=== PATIENT | male | born 1940 | race Caucasian/White ===

== ENCOUNTER 2022-09-28 10:49 | Inpatient (IN) | payer MEDICARE, SELFPAY ==
[2022-09-28] VITALS (25 sets, daily range): BP systolic 116–161; BP diastolic 57–87; PULSE 67–76; RESP 12–27; TEMP 36.4–36.6; O2SAT 87–98; BMI 27.4; BMI 28.0
--- NOTE | 2022-09-28 11:05 | ECG_ITS ---
The [facility] Test Date: 2022-09-28 Pat Name: ROSANNA SOUSA Department: Room: - Gender: Male [place]: : 1940 Requested By: [id number] Order Number: [id number] Reading MD: NILE AGUILAR Measurements Intervals [place] Rate: 72 P: 51 GA: 172 QRS: -48 QRSD: 148 T: 65 QT: 454 QTc: 479 Interpretive Statements 1100 Sinus rhythm 2450 Right bundle branch block 2630 Left anterior fascicular block 5222 Moderate voltage criteria for LVH, may be normal variant 9150 abnormal ECG Electronically Signed On 09-29-2022 7:15:02 EDT by NILE AGUILAR
--- NOTE | 2022-09-28 11:05 | XR_ITS ---
The [address] [address] Patient Name: ROSANNA SOUSA MRN: [id number] date: 1940 Sex: M Assigned Patient Location: ER Current Patient Location: ER Accession/Order Number: [id number] Exam Date: 09/28/2022 12:22 Report Date: 09/28/2022 12:39 At the request of: SUE NORTON Procedure: XR chest 1V EXAMINATION: XR chest 1V HISTORY: fall , confusion COMPARISON: No relevant comparison available. FINDINGS: LUNGS: No significant pulmonary parenchymal abnormalities. VASCULATURE: No increased pulmonary vasculature. PLEURA: No pneumothorax, effusion, or pleural thickening. CARDIAC: No cardiomegaly or cardiac silhouette abnormality. MEDIASTINUM: No visible mass or adenopathy. BONES: No fracture or visible bone lesion. OTHER: Negative. IMPRESSION: 1. Underexpanded lungs. No acute cardiopulmonary process. 2. No appreciable fracture. Electronically authenticated by: LOUIS BROOKE Date: 09/28/2022 12:39
--- NOTE | 2022-09-28 11:05 | CT_ITS ---
The [address] [address] Patient Name: ROSANNA SOUSA MRN: [id number] date: 1940 Sex: M Assigned Patient Location: ER Current Patient Location: ER Accession/Order Number: [id number] Exam Date: 09/28/2022 12:22 Report Date: 09/28/2022 12:48 At the request of: SUE NORTON Procedure: CT head/brain wo con EXAMINATION: CT head/brain wo con HISTORY: fall , confusion COMPARISON: No relevant comparison available. TECHNIQUE: Axial CT images were obtained without IV contrast. Dose reduction techniques were achieved by using automated exposure control and/or adjustment of mA and/or kV according to patient size and/or use of iterative reconstruction technique. FINDINGS: BRAIN: Old lacunar infarctions within the basal ganglia bilaterally. No edema, hemorrhage, mass, acute infarction, or inappropriate atrophy. CSF SPACES: No hydrocephalus, subarachnoid hemorrhage, or mass. Appropriate for age. SKULL: No fracture, mass, or other significant visible lesion. SINUSES: Moderate mucosal thickening, most notable within right frontal and right maxillary sinuses. Fluid filling majority of right maxillary sinus. ORBITS: No appreciable abnormality on the limited views. OTHER: Negative IMPRESSION: 1. No intracranial hemorrhage or appreciable acute abnormality brain. 2. 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 3. 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 Electronically authenticated by: LOUIS BROOKE Date: 09/28/2022 12:48
--- NOTE | 2022-09-28 11:10 | ED.GENADUL1 ---
HPI - General Adult General Chief complaint: Altered Mental Status Stated complaint: FALL Time Seen by Provider: 09/28/22 11:02 Source: other Source information: EMS Mode of arrival: ambulance Limitations: altered mental status and physical limitation History of Present Illness HPI narrative: patient is a 82-year-old male who is presenting to the Emergency Room after he lowered himself to the ground yesterday and today secondary to weakness. Patient came in by EMS. Patient was found by family in the ground. Patient does not take blood thinners that we're aware of. Patient says that he did not hit his head, but he does have a small abrasion to the back of his head. Patient is confused per family. Patient is an A/O ?3. Patient is able to answer questions appropriately. patient does have some mild bilateral shoulder pain. Patient has bruising to bilateral iliac crests, patient has a 6 x 8 cm stage II ulceration noted above his buttocks. Patient states she has no headache and mild neck pain. patient has no chest pain or shortness of breath. No dull pain, nausea or vomiting. Patient has no other acute complaints. Patient lives at home by himself, family found him today and called EMS. Patient states he been eating and drinking normal, no strokelike signs or symptoms. Related Data Home Medications Medication Instructions Recorded Confirmed erythromycin 5 mg/gram (0.5 %) eye ophthalmic (eye) 09/28/22 ointment Allergies Allergy/AdvReac Type Severity Reaction Status Date / Time No Known Drug Allergies Allergy Verified 09/28/22 11:05 Review of Systems ROS Narrative All systems are negative except as noted/marked. All systems reviewed and otherwise negative. Exam Narrative Exam Narrative: Nurses note and vital signs reviewed and patient is not hypoxic. General: The patient appears well and in no apparent distress. Patient is resting comfortably on cart. Patient is not toxic, lethargic, or listless Skin: Warm, dry, no pallor noted. There is no rash noted. No petechiae, purpura. patient is a 6 x 8cm stage II decubitus ulceration on the top of his buttocks, he has some mild ecchymosis and bruising to bilateral iliac crest area. Patient Head: Normocephalic, atraumatic Eye: Normal conjunctiva, no drainage, EOMI. PERRL Ears, Nose, Mouth, and Throat: oral mucosa is very dry. Nares patent. Mouth without vesicles. no other intraoral pathology. Dry posterior pharynx. Cardiovascular: Regular Rate and Rhythm, no murmur, gallop, rub Respiratory: Patient is in no distress, no accessory muscle use, lungs are clear to auscultation, no wheezing, rales or rhonchi Back: non-tender, no CVA tenderness bilaterally to percussion. No CT LS midline pain GI: soft, no tenderness to palpation, no masses appreciated. No rebound, guarding, or rigidity noted. No flank pain bilateral, No distention. no peritoneal signs. Musculoskeletal: Patient has full range of motion of all of the extremities, no motor, sensory, or focal neurological deficits. Patient states that he has mild tenderness with range of motion to bilateral shoulders, no obvious deformity or signs of fracture. Minimal bruising to bilateral shoulders. : patient is circumcised, 2 descended testicles, no tenderness to palpation of bilateral testicles. Neurological: A&O x3, normal speech, I'm not noticing any confusion during my history and physical. Family is not at bedside yet. Psychiatric: Cooperative Constitutional Vital Signs - 24 hr 09/28/22 10:58 09/28/22 11:03 09/28/22 11:04 Temperature 97.5 F L Pulse Rate 71 73 Pulse Rate [Monitor] 73 Respiratory Rate 16 20 21 Blood Pressure Blood Pressure [Right Arm] 116/57 L Pulse Oximetry 97 97 96 Oxygen Delivery Method Room Air 09/28/22 11:05 09/28/22 11:05 09/28/22 11:05 Temperature Pulse Rate 69 70 73 Pulse Rate [Monitor] Respiratory Rate 22 17 15 Blood Pressure 116/57 L 116/57 L 116/57 L Blood Pressure [Right Arm] Pulse Oximetry 96 93 L 98 Oxygen Delivery Method 09/28/22 12:34 09/28/22 12:34 09/28/22 13:18 Temperature Pulse Rate 74 71 72 Pulse Rate [Monitor] Respiratory Rate 12 27 H 14 Blood Pressure 129/67 H 129/67 H 139/67 H Blood Pressure [Right Arm] Pulse Oximetry 97 96 97 Oxygen Delivery Method 09/28/22 13:18 09/28/22 13:31 09/28/22 14:28 Temperature Pulse Rate 72 74 72 Pulse Rate [Monitor] Respiratory Rate 16 17 Blood Pressure 139/67 H 124/59 H Blood Pressure [Right Arm] Pulse Oximetry 96 Oxygen Delivery Method 09/28/22 15:14 09/28/22 13:31 09/28/22 14:00 Temperature 97.8 F Pulse Rate 72 72 Pulse Rate [Monitor] Respiratory Rate 26 H 23 Blood Pressure 124/59 H 135/62 H Blood Pressure [Right Arm] Pulse Oximetry Oxygen Delivery Method 09/28/22 14:30 09/28/22 15:08 09/28/22 15:09 Temperature Pulse Rate 75 Pulse Rate [Monitor] Respiratory Rate Blood Pressure 121/63 H Blood Pressure [Right Arm] Pulse Oximetry 95 95 Oxygen Delivery Method 09/28/22 15:10 09/28/22 15:10 09/28/22 15:30 Temperature Pulse Rate 75 76 Pulse Rate [Monitor] Respiratory Rate Blood Pressure 157/87 H 157/87 H 148/86 H Blood Pressure [Right Arm] Pulse Oximetry 95 95 94 L Oxygen Delivery Method Course Vital Signs Vital signs: Vital Signs Temperature 97.5 F L 09/28/22 10:58 Pulse Rate 73 09/28/22 10:58 Respiratory Rate 16 09/28/22 10:58 Blood Pressure 116/57 L 09/28/22 10:58 Pulse Oximetry 97 09/28/22 10:58 Oxygen Delivery Method Room Air 09/28/22 10:58 Temperature 97.8 F 09/28/22 15:14 Pulse Rate 76 09/28/22 15:10 Respiratory Rate 23 09/28/22 14:00 Blood Pressure 148/86 H 09/28/22 15:30 Pulse Oximetry 94 L 09/28/22 15:30 Oxygen Delivery Method Room Air 09/28/22 10:58 Medical Decision Making Lab Data Lab results reviewed: Yes I reviewed the patient's lab results Lab results narrative: patient has a CK of 470. Patient's CT of the head, cervical spine, chest x-ray show no acute abnormality. Patient's lab testing otherwise show no acute abnormality. Patient was given 1 L of IV fluid, patient had a red popsicle as well. Patient was given a 2nd liter of IV fluids, and then patient was attempted to be evaluated. Patient cannot support his weight, and wasn't able to take one or 2 steps. patient was sat back down. Patient will continue gentle IV fluid hydration, patient be reevaluated later this evening and tomorrow morning to see be safely discharged or not. Patient was admitted to Dr. Pichardo to [facility] telemetry observation. patient's bilirubin is 2.8, he has no abdominal pain, nausea, vomiting, No right upper quadrant pain. Labs: Lab Results 09/28/22 09/28/22 Range/Units 11:23 12:00 WBC 10.3 (4.0-11.0) 10^3/uL RBC 4.53 L (4.70-6.10) 10^6/uL Hgb 13.9 L (14.0-18.0) g/dL Hct 41.1 L (42.0-54.0) % MCV 90.7 (80.0-94.0) fL MCH 30.7 (25.9-34.0) pg MCHC 33.8 (29.9-35.2) g/dL RDW 14.8 (11.0-15.0) % Plt Count 205 (150-450) 10^3/uL MPV 10.0 (9.5-13.5) fL Neut % (Auto) 85.2 H (43.0-75.0) % Lymph % (Auto) 7.2 L (20.5-60.0) % [place] % (Auto) 6.7 (1.7-12.0) % Eos % (Auto) 0.2 L (0.9-7.0) % Baso % (Auto) 0.2 (0.2-2.0) % Neut # (Auto) 8.7 H (1.4-6.5) 10^3/uL Lymph # (Auto) 0.7 L (1.2-3.8) 10^3/uL [place] # (Auto) 0.7 (0.3-0.8) 10^3/uL Eos # (Auto) 0.0 (0.0-0.7) 10^3/uL Baso # (Auto) 0.0 (0.0-0.1) 10^3/uL Abs Immat Gran (auto) 0.05 H (0.00-0.03) 10^3/uL Imm/Tot Granulo (auto) 0.5 (0.0-0.5) % PT 10.4 (9.0-11.6) sec INR 0.98 Sodium 140 (136-145) mmol/L Potassium 4.3 (3.5-5.1) mmol/L Chloride 104 (98-107) mmol/L Carbon Dioxide 25.8 (21.0-32.0) mmol/L Anion Gap 14.5 BUN 54.0 H (7.0-18.0) mg/dL Creatinine 0.85 (0.70-1.30) mg/dL Est GFR ( Amer) >60 (>=60) Est GFR (Non-Af Amer) >60 (>=60) BUN/Creatinine Ratio 63.5 Glucose 105 (74-106) mg/dL Lactate 2.0 (0.4-2.0) mmol/L Calcium 9.1 (8.5-10.1) mg/dL Total Bilirubin 2.8 H (0.2-1.0) mg/dL AST 82 H (15-37) U/L ALT 60 (16-63) U/L Alkaline Phosphatase 78 (46-116) U/L Total Creatine Kinase 476 H* (39-308) U/L Troponin I High Sens 16.6 (4.0-76.1) pg/mL Total Protein 7.1 (6.4-8.2) g/dL Albumin 3.0 L (3.4-5.0) g/dL Globulin 4.1 g/dL Albumin/Globulin Ratio 0.7 Urine Color Yellow (YELLOW) Urine Clarity Clear (CLEAR) Urine pH 5.5 (5.0-9.0) Ur Specific [place] >=1.030 A (1.005-1.025) Urine Protein Negative (NEG/TRACE) mg/dL Urine Glucose (UA) Negative (NEGATIVE) mg/dL Urine Ketones 15 A (NEGATIVE) mg/dL Urine Occult Blood Negative (NEGATIVE) Urine Nitrite Negative (NEGATIVE) Urine Bilirubin Negative (NEGATIVE) Urine Urobilinogen 1.0 (0.2-1.0) EU/dL Ur Leukocyte Esterase Negative (NEGATIVE) ECG Data Attestation: I personally reviewed and interpreted this ECG as follows: Interpretation: patient appears to have a normal sinus rhythm at 72 beats a minute. Left axis deviation. EKG reading right bundle-branch block, QTC of 479. No obvious signs of ST elevation.nonspecific ST changes. Discharge Plan Discharge Chief Complaint: Altered Mental Status Clinical Impression: Abrasion of scalp, Decubitus ulcer of ankle, stage 2, Rhabdomyolysis, Elevated bilirubin, Head injury, Fall, Dehydration Patient Disposition: Admitted as Observation
--- NOTE | 2022-09-28 11:16 | CT_ITS ---
[address] [address] Patient Name: ROSANNA SOUSA MRN: [id number] date: 1940 Sex: M Assigned Patient Location: ER Current Patient Location: ER Accession/Order Number: [id number] Exam Date: 09/28/2022 12:22 Report Date: 09/28/2022 12:55 At the request of: SUE NORTON Procedure: CT cervical spine wo con EXAMINATION: CT cervical spine wo con HISTORY: pain , confusion COMPARISON: No relevant comparison available. TECHNIQUE: Axial, Coronal, and Sagittal images were created without IV contrast. Dose reduction techniques were achieved by using automated exposure control and/or adjustment of mA and/or kV according to patient size and/or use of iterative reconstruction technique. FINDINGS: VERTEBRAL BODIES: No fracture or spondylolisthesis. FACET JOINTS: Multilevel mild-moderate degenerative changes. No disruption or abnormal widening. DISCS: Moderate narrowing at all levels with posterior disc-osteophyte complexes causing moderate or greater central canal and foramen narrowing at C3-4 through C6-7. CENTRAL CANAL: No evidence of hemorrhage. PARASPINAL AREA: No visible mass. IMPRESSION: 1. No appreciable acute abnormality. 2. Moderate-marked degenerative changes of cervical spine. Electronically authenticated by: LOUIS BROOKE Date: 09/28/2022 12:55
[2022-09-28] MEDS: 0.9 % SODIUM CHLORIDE 1,000 ML 1000 ML IV ×2 (11:57→13:52)
[2022-09-28] MEDS: ONDANSETRON PF 4 MG/2 ML VIAL IV (11:57)
[2022-09-28 12:05] LABS: Bilirubin Urine NEGATIVE (NEGATIVE); Blood Urine NEGATIVE (NEGATIVE); Clarity Urine CLEAR (CLEAR); Color Urine YELLOW (YELLOW); Glucose Urine UA NEGATIVE (NEGATIVE); Ketones Urine 15 mg/dL (NEGATIVE); Leukocyte Esterase Urine NEGATIVE (NEGATIVE); Nitrite Urine NEGATIVE (NEGATIVE); Protein Urine NEGATIVE (NEG/TRACE); Specific Gravity Urine >=1.030 (1.005-1.025); pH Urine 5.5 (5.0-9.0)
[2022-09-28 12:30] LABS: Basophils Percent Auto 0.2 % (0.2-2.0); Eosinophils Percent Auto 0.2 % (0.9-7.0); Hematocrit 41.1 % (42.0-54.0); Hemoglobin 13.9 g/dL (14.0-18.0); Immature Granulocytes Abs Auto 0.05 10^3/uL (0.00-0.03); Immature Granulocytes Pct Auto 0.5 % (0.0-0.5); Lymphocytes Absolute Auto 0.7 10^3/uL (1.2-3.8); Lymphocytes Percent Auto 7.2 % (20.5-60.0); Mean Corpuscular HGB Conc 33.8 g/dL (29.9-35.2); Mean Corpuscular Hemoglobin 30.7 pg (25.9-34.0); Mean Corpuscular Volume 90.7 fL (80.0-94.0); Monocytes Absolute Auto 0.7 10^3/uL (0.3-0.8); Monocytes Percent Auto 6.7 % (1.7-12.0); Neutrophils Absolute Auto 8.7 10^3/uL (1.4-6.5); Neutrophils Percent Auto 85.2 % (43.0-75.0); Platelet Count 205 10^3/uL (150-450); Red Blood Count 4.53 10^6/uL (4.70-6.10); Red Cell Distribution Width 14.8 % (11.0-15.0); White Blood Count 10.3 10^3/uL (4.0-11.0)
[2022-09-28 12:44] LABS: Anion Gap 14.5
[2022-09-28 12:46] LABS: INR 0.98; Prothrombin Time 10.4 sec (9.0-11.6)
[2022-09-28 12:47] LABS: Alanine Aminotransferase 60 U/L (16-63); Albumin Globulin Ratio 0.7; Alkaline Phosphatase 78 U/L (46-116); Aspartate Amino Transferase 82 U/L (15-37); BUN Creatinine Ratio 63.5; Bilirubin Total 2.8 mg/dL (0.2-1.0); Calcium 9.1 mg/dL (8.5-10.1); Carbon Dioxide 25.8 mmol/L (21.0-32.0); Chloride 104 mmol/L (98-107); Estimated GFR (African America >60 (>=60); Estimated GFR (Non-African Ame >60 (>=60); Globulin 4.1 g/dL; Glucose 105 mg/dL (74-106); Potassium 4.3 mmol/L (3.5-5.1); Sodium 140 mmol/L (136-145); Total Protein 7.1 g/dL (6.4-8.2); Troponin I High Sensitivity 16.6 pg/mL (4.0-76.1)
[2022-09-28 12:50] LABS: Creatine Kinase 476 U/L (39-308)
[2022-09-28 16:29] LABS: Bacteria Urine NONE SEEN #/HPF (NONE SEEN); Cast Seen? NONE SEEN #/LPF (NONE SEEN); Crystals Seen? None Seen #/HPF (None Seen); Mucus Urine NONE SEEN (NONE SEEN); RBC Urine NONE SEEN #/HPF (0-2); Squamous Epithelial Cell Urine NONE SEEN #/LPF (NONE/RARE); WBC Urine NONE SEEN #/HPF (NONE SEEN)
[2022-09-28 16:30] LABS: Urine Culture Indicated NO
[2022-09-28 16:52] LABS: Ammonia <10 umol/L (11-32)
[2022-09-28 17:08] LABS: Free T3 1.34 pg/mL (2.18-3.98); Thyroid Stimulating Hormone 1.597 uIU/mL (0.358-3.740)
[2022-09-28] MEDS: 0.9 % SODIUM CHLORIDE 1,000 ML 100 ML IV (17:33)
[2022-09-29] VITALS (15 sets, daily range): BP systolic 126–146; BP diastolic 66–71; PULSE 60–73; RESP 18; TEMP 36.3–36.6; O2SAT 90–94
[2022-09-29] MEDS: 0.9 % SODIUM CHLORIDE 1,000 ML 100 ML IV ×2 (05:19→13:31)
[2022-09-29 06:23] LABS: Basophils Percent Auto 0.2 % (0.2-2.0); Eosinophils Absolute Auto 0.1 10^3/uL (0.0-0.7); Eosinophils Percent Auto 0.8 % (0.9-7.0); Hematocrit 37.7 % (42.0-54.0); Hemoglobin 12.3 g/dL (14.0-18.0); Immature Granulocytes Abs Auto 0.03 10^3/uL (0.00-0.03); Immature Granulocytes Pct Auto 0.3 % (0.0-0.5); Lymphocytes Absolute Auto 1.2 10^3/uL (1.2-3.8); Lymphocytes Percent Auto 13.7 % (20.5-60.0); Mean Corpuscular HGB Conc 32.6 g/dL (29.9-35.2); Mean Corpuscular Hemoglobin 30.9 pg (25.9-34.0); Mean Corpuscular Volume 94.7 fL (80.0-94.0); Mean Platelet Volume 10.5 fL (9.5-13.5); Monocytes Absolute Auto 0.6 10^3/uL (0.3-0.8); Monocytes Percent Auto 6.3 % (1.7-12.0); Neutrophils Absolute Auto 7.1 10^3/uL (1.4-6.5); Neutrophils Percent Auto 78.7 % (43.0-75.0); Platelet Count 197 10^3/uL (150-450); Red Blood Count 3.98 10^6/uL (4.70-6.10); Red Cell Distribution Width 15.5 % (11.0-15.0)
[2022-09-29 07:00] LABS: Alanine Aminotransferase 47 U/L (16-63); Albumin Globulin Ratio 0.7; Albumin Level 2.5 g/dL (3.4-5.0); Alkaline Phosphatase 64 U/L (46-116); Anion Gap 1.4; Aspartate Amino Transferase 56 U/L (15-37); BUN Creatinine Ratio 54.5; Bilirubin Total 2.4 mg/dL (0.2-1.0); Calcium 8.3 mg/dL (8.5-10.1); Carbon Dioxide 24.4 mmol/L (21.0-32.0); Creatine Kinase 176 U/L (39-308); Estimated GFR (African America >60 (>=60); Estimated GFR (Non-African Ame >60 (>=60); Globulin 3.4 g/dL; Glucose 95 mg/dL (74-106); Potassium 3.8 mmol/L (3.5-5.1); Sodium 145 mmol/L (136-145); Total Protein 5.9 g/dL (6.4-8.2); Troponin I High Sensitivity 17.2 pg/mL (4.0-76.1)
[2022-09-29 07:28] LABS: Chloride 123 mmol/L (98-107); Creatine Kinase MB 3.98 ng/mL (<=3.60)
[2022-09-29 07:29] LABS: Myoglobin 269 ng/mL (16-96)
--- NOTE | 2022-09-29 13:54 | PM.HP ---
H&P: HPI History of Present Illness Chief complaint: FALL Narrative: 82 y o male, who lives alone, independently at home was in his usual state of health when he fell from his recliner and was unable to get up. He denies LOC or head trauma and it is unclear how long he was on the floor for but from what the patient described and report from family members, it was probably atleast for a day. He was found on the floor by the family member and brought in for evaluation. He was sitting on a recliner today. Denies any active complaints except for low back pain from recent fall. Answering questions appropriately and feels better compared to when he arrived last evening. Review of Systems ROS Narrative negative except as mentioned in HPI PFSH PFSH Medical History (Updated 09/29/22 @ 14:13 by Shaikh Lenore MD) Surgical History (Updated 09/29/22 @ 14:06 by Shaikh Lenore MD) Social History (Updated 09/29/22 @ 14:07 by Shaikh Lenore MD) Within the past year, how often did you have a drink containing alcohol: monthly or less Smoking status: Never smoker Medical History (Updated 09/29/22 @ 14:13 by Shaikh Lenore MD) Surgical History (Updated 09/29/22 @ 14:06 by Shaikh Lenore MD) Social History (Updated 09/29/22 @ 14:07 by Shaikh Lenore MD) Within the past year, how often did you have a drink containing alcohol: monthly or less Smoking status: Never smoker Meds Home Medications and Allergies Home Medications Medication Instructions Recorded Confirmed Type erythromycin 5 mg/gram (0.5 %) eye ophthalmic (eye) 09/28/22 History ointment Allergies Allergy/AdvReac Type Severity Reaction Status Date / Time No Known Drug Allergies Allergy Verified 09/28/22 11:05 Exam Constitutional Vital Signs - 24 hr 09/28/22 14:28 09/28/22 15:14 09/28/22 14:00 Temperature 97.8 F Pulse Rate 72 72 Pulse Rate [Monitor] Respiratory Rate 23 Blood Pressure 135/62 H Blood Pressure [Right Arm] Pulse Oximetry Oxygen Delivery Method Oxygen Delivery Flow Rate 09/28/22 14:30 09/28/22 15:08 09/28/22 15:09 Temperature Pulse Rate 75 Pulse Rate [Monitor] Respiratory Rate Blood Pressure 121/63 H Blood Pressure [Right Arm] Pulse Oximetry 95 95 Oxygen Delivery Method Oxygen Delivery Flow Rate 09/28/22 15:10 09/28/22 15:10 09/28/22 15:30 Temperature Pulse Rate 75 76 Pulse Rate [Monitor] Respiratory Rate Blood Pressure 157/87 H 157/87 H 148/86 H Blood Pressure [Right Arm] Pulse Oximetry 95 95 94 L Oxygen Delivery Method Oxygen Delivery Flow Rate 09/28/22 15:56 09/28/22 15:56 09/28/22 16:06 Temperature 97.6 F Pulse Rate 74 73 Pulse Rate [Monitor] 73 Respiratory Rate 16 Blood Pressure Blood Pressure [Right Arm] 161/75 H Pulse Oximetry 87 L Oxygen Delivery Method Room Air Nasal Cannula Oxygen Delivery Flow Rate 2 09/28/22 18:45 09/28/22 19:45 09/28/22 19:49 Temperature Pulse Rate 73 70 Pulse Rate [Monitor] Respiratory Rate Blood Pressure Blood Pressure [Right Arm] Pulse Oximetry 93 L Oxygen Delivery Method Nasal Cannula Oxygen Delivery Flow Rate 2 09/28/22 21:52 09/28/22 22:29 09/28/22 23:54 Temperature 97.6 F Pulse Rate 67 67 67 Pulse Rate [Monitor] Respiratory Rate 18 Blood Pressure Blood Pressure [Right Arm] 130/66 H Pulse Oximetry 90 L Oxygen Delivery Method Nasal Cannula Oxygen Delivery Flow Rate 2 09/29/22 01:55 09/29/22 04:00 09/29/22 06:00 Temperature Pulse Rate 62 61 60 Pulse Rate [Monitor] Respiratory Rate Blood Pressure Blood Pressure [Right Arm] Pulse Oximetry Oxygen Delivery Method Oxygen Delivery Flow Rate 09/29/22 06:00 09/29/22 08:07 09/29/22 10:03 Temperature 97.3 F L Pulse Rate 65 62 61 Pulse Rate [Monitor] Respiratory Rate 18 Blood Pressure Blood Pressure [Right Arm] 131/71 H Pulse Oximetry 90 L Oxygen Delivery Method Nasal Cannula Oxygen Delivery Flow Rate 2 09/29/22 11:51 09/29/22 13:14 Temperature 97.7 F Pulse Rate 65 67 Pulse Rate [Monitor] Respiratory Rate 18 Blood Pressure Blood Pressure [Right Arm] 146/70 H Pulse Oximetry 92 L Oxygen Delivery Method Room Air Oxygen Delivery Flow Rate Documenting provider has reviewed patient's vital signs: yes Common normals: no apparent distress, average body habitus and oriented x3 General appearance: cooperative, comfortable, well kempt and well developed HENMT Common normals: normocephalic and head/scalp atraumatic Eye Common normals: conjunctivae normal and no scleral icterus Neck & C-Spine Common normals: full ROM Respiratory Common normals: normal respiratory effort and clear to auscultation bilaterally GI Common normals: Normal to inspection, nondistended, normoactive bowel sounds present Back & Pelvis Common normals: no CVA tenderness Lumbar spine/lower back: other soft tissue findings (Stage 2 pressure ulcer with overlying erythema/bruising from recent fall) Extremity Common normals: normal to inspection Neuro Common normals: oriented x3, moves all extremities, no focal motor deficits and no sensory deficits noted Psych Common normals: mental status grossly normal, thought process normal, cooperative, denies homicidal ideation and denies suicidal ideation Results Labs Labs: Short CBC 09/29/22 Range/Units 04:45 WBC 9.0 (4.0-11.0) 10^3/uL Hgb 12.3 L (14.0-18.0) g/dL Hct 37.7 L (42.0-54.0) % Plt Count 197 (150-450) 10^3/uL BMP 09/29/22 04:45 Sodium 145 Potassium 3.8 Chloride 123 H* Carbon Dioxide 24.4 BUN 42.0 H Creatinine 0.77 Glucose 95 Calcium 8.3 L Cardiac Enzymes 09/29/22 Range/Units 04:45 Total Creatine Kinase 176 (39-308) U/L CK-MB (CK-2) 3.98 H* (<=3.60) ng/mL Liver Function 09/29/22 Range/Units 04:45 Total Bilirubin 2.4 H (0.2-1.0) mg/dL AST 56 H (15-37) U/L ALT 47 (16-63) U/L Alkaline Phosphatase 64 (46-116) U/L Albumin 2.5 L (3.4-5.0) g/dL Assessment and Plan Assessment and Plan (1) Rhabdomyolysis: Assessment and Plan: Likely from fall and being on floor for extended period of time. On IV fluids. C/w IVF. Monitor UO and renal function closely. Qualifiers: Rhabdomyolysis type: non-traumatic Qualified Code(s): M62.82 - Rhabdomyolysis (2) Fall: Assessment and Plan: Fall at home and inability to get up and was on floor for unspecified period of time. PT/OT eval. No acute finding on CT head/spine Qualifiers: Encounter type: subsequent encounter Qualified Code(s): W19.XXXD - Unspecified fall, subsequent encounter (3) Dehydration: Assessment and Plan: Clinically dry on exam. On IVF. c.w same (4) Stage II pressure ulcer: Assessment and Plan: Likely from fall and being on floor for extended period of time. Wound care. Qualifiers: Pressure injury location: back, unspecified location Qualified Code(s): L89.102 - Pressure ulcer of unspecified part of back, stage 2 (5) Ambulatory dysfunction: Assessment and Plan: Lives alone at home. Was on floor for an extended period of time. Needs two person assist to get up, unsteady on his feet. PT/OT eval and rx. Discussed with family and patient. Suspect he might need short term rehab (6) Low back pain: Assessment and Plan: From fall . XR ordered to make sure no rx. (7) Old lacunar stroke without late effect: Assessment and Plan: Incidental finding on CT. no residual deficit on exam Plan On IVF. C/w pain control, wound care for pressure ulcer. PT/OT eval and rx Anticipate him to stay over 2 midnights for IV hydration, pain control, wound care and PT/OT eval and rx Disposition : likely short term rehab
[2022-09-29] MEDS: LACTATED RINGER'S SOLUTION 1,000 ML 125 ML IV ×2 (14:09→22:28)
[2022-09-29] MEDS: ACETAMINOPHEN 325 MG TABLET 650 MG PO (14:15)
--- NOTE | 2022-09-29 14:15 | XR_ITS ---
[place] [id number] Patient Name: ROSANNA SOUSA MRN: [id number] date: 1940 Sex: M Assigned Patient Location: MS Current Patient Location: [place] Accession/Order Number: [id number] Exam Date: 09/29/2022 14:35 Report Date: 09/30/2022 00:22 At the request of: SHAIKH KIRK Procedure: XR lumbar spine 2-3V EXAM: XR lumbar spine 2-3V HISTORY: low back pain COMPARISON: None. TECHNIQUE: AP and lateral views FINDINGS: Vertebral bodies are normal in height. There is widespread disc space narrowing. Vacuum disc phenomenon at L2-L3, L3-L4, and L4-L5. Anterior osteophytosis at each lumbar level. Facet arthropathy is noted at L5-S1. Early aortoiliac calcification is noted. IMPRESSION: Multilevel lumbar spondylosis. Electronically authenticated by: Dennis ALBERTS Date: 09/30/2022 00:22
[2022-09-29 14:34] LABS: Creatine Kinase 186 U/L (39-308)
[2022-09-30] VITALS (16 sets, daily range): BP systolic 126–146; BP diastolic 66; PULSE 56–70; RESP 16–18; TEMP 36.6–37.1; O2SAT 90–94
[2022-09-30 04:49] LABS: Basophils Percent Auto 0.3 % (0.2-2.0); Eosinophils Absolute Auto 0.2 10^3/uL (0.0-0.7); Eosinophils Percent Auto 2.7 % (0.9-7.0); Hematocrit 32.6 % (42.0-54.0); Hemoglobin 10.8 g/dL (14.0-18.0); Immature Granulocytes Abs Auto 0.02 10^3/uL (0.00-0.03); Immature Granulocytes Pct Auto 0.3 % (0.0-0.5); Lymphocytes Absolute Auto 1.2 10^3/uL (1.2-3.8); Mean Corpuscular HGB Conc 33.1 g/dL (29.9-35.2); Mean Corpuscular Hemoglobin 31.3 pg (25.9-34.0); Mean Corpuscular Volume 94.5 fL (80.0-94.0); Mean Platelet Volume 10.2 fL (9.5-13.5); Monocytes Absolute Auto 0.4 10^3/uL (0.3-0.8); Monocytes Percent Auto 7.1 % (1.7-12.0); Neutrophils Percent Auto 68.6 % (43.0-75.0); Platelet Count 156 10^3/uL (150-450); Red Blood Count 3.45 10^6/uL (4.70-6.10); White Blood Count 5.9 10^3/uL (4.0-11.0)
[2022-09-30 04:56] LABS: Alanine Aminotransferase 41 U/L (16-63); Albumin Globulin Ratio 0.7; Albumin Level 2.2 g/dL (3.4-5.0); Alkaline Phosphatase 64 U/L (46-116); Anion Gap 7.9; Aspartate Amino Transferase 46 U/L (15-37); BUN Creatinine Ratio 42.6; Bilirubin Total 1.7 mg/dL (0.2-1.0); Calcium 8.1 mg/dL (8.5-10.1); Carbon Dioxide 27.6 mmol/L (21.0-32.0); Chloride 108 mmol/L (98-107); Estimated GFR (African America >60 (>=60); Estimated GFR (Non-African Ame >60 (>=60); Globulin 3.1 g/dL; Glucose 98 mg/dL (74-106); Potassium 3.5 mmol/L (3.5-5.1); Sodium 140 mmol/L (136-145); Total Protein 5.3 g/dL (6.4-8.2)
[2022-09-30] MEDS: LACTATED RINGER'S SOLUTION 1,000 ML 125 ML IV (06:27)
--- NOTE | 2022-09-30 10:23 | PT.DAILY ---
Physical Therapy Daily Note PT Daily Note/Assess Start: 09/30/22 10:18 Freq: Status: Active Protocol: Document 09/30/22 09:50 [email or web address] (Rec: 09/30/22 10:23 [email or web address] [id number]) Physical Therapy Daily Note/Assessment Time In/Time Out Time In 09:50 Time Out 10:10 Pain In Pain N/A Pain Out Pain N/A Subjective Subjective Reports sore in tailbone but does not give pain number. Agrees to PT RX. Reports feeling better, but may need rehab to get stronger as lives alone. Therapeutic Exercise Time Therapeutic Exercise Minutes (minutes) 5 Therapeutic Exercise Units 0 Therapeutic Exercise Treatment Therapeutic Exercise Treatment Seated exercises B LE all planes 10 reps; verbal cues for full ROM jaylen. with marches and LAQ. Therapeutic Activity Time Therapeutic Activity Minutes (minutes) 15 Therapeutic Activity Units 1 Therapeutic Activity Treatment Chair Transfer Ability Minimum Assist Therapeutic Activity Comments Min assist from various surfaces, more assistance with lower surfaces required. Gait with RW 60 ft. x1 and 25 ft. x1 with RW CGA. Mild LOB x 1 when turning that required min assist from therapist to correct. Required B UE support for static standing. Total Physical Therapy Time Total Therapy Minutes 20 Total Physical Therapy Units 1 Summary Daily Note Summary Patient does show improvement with ability to ambulate, still requires AD, and assistance due to weakness. Overall patient works hard and is motivated to get stronger. PT would recommend SNF at [place] to improve functional strength and decreased fall risk, patient agrees with this.
--- NOTE | 2022-09-30 13:03 | PM.IMPN1 ---
Progress Note: A&P Assessment and Plan (1) Rhabdomyolysis: Assessment and Plan: resolved. Good UO, PO intake. Stop IVF. Qualifiers: Rhabdomyolysis type: non-traumatic Qualified Code(s): M62.82 - Rhabdomyolysis (2) Fall: Assessment and Plan: PT/OT evaluation. Possible rehab placement Qualifiers: Encounter type: subsequent encounter Qualified Code(s): W19.XXXD - Unspecified fall, subsequent encounter (3) Dehydration: Assessment and Plan: resolved. Now with good PO intake. Stop IVF (4) Stage II pressure ulcer: Assessment and Plan: Wound care consult Qualifiers: Pressure injury location: back, unspecified location Qualified Code(s): L89.102 - Pressure ulcer of unspecified part of back, stage 2 (5) Ambulatory dysfunction: Assessment and Plan: PT/OT eval. (6) Low back pain: Assessment and Plan: XR shows multi level DJD changes. No fx. (7) Old lacunar stroke without late effect: Assessment and Plan: No residual deficit. Internal Medicine - PN: Subj Subjective Interval history: Seen and examined. Reports poor sleep last night. Also complaining of b/l feet pain. No acute events overnight Exam Constitutional Vital Signs - 24 hr 09/29/22 13:14 09/29/22 13:55 09/29/22 16:05 Temperature 97.7 F Pulse Rate 67 67 62 Respiratory Rate 18 Blood Pressure [Right Arm] 146/70 H Pulse Oximetry 92 L Oxygen Delivery Method Room Air 09/29/22 18:09 09/29/22 19:49 09/29/22 20:00 Temperature Pulse Rate 71 65 Respiratory Rate Blood Pressure [Right Arm] Pulse Oximetry 92 L Oxygen Delivery Method Room Air 09/29/22 21:14 09/29/22 22:00 09/30/22 00:00 Temperature 97.8 F Pulse Rate 73 66 60 Respiratory Rate 18 Blood Pressure [Right Arm] 126/66 H Pulse Oximetry 91 L Oxygen Delivery Method 09/30/22 02:00 09/30/22 04:00 09/30/22 06:00 Temperature Pulse Rate 66 59 L 60 Respiratory Rate Blood Pressure [Right Arm] Pulse Oximetry Oxygen Delivery Method 09/30/22 07:52 09/30/22 10:10 09/30/22 11:41 Temperature Pulse Rate 56 L 64 Respiratory Rate Blood Pressure [Right Arm] Pulse Oximetry 94 L Oxygen Delivery Method Room Air 09/30/22 11:50 Temperature Pulse Rate 60 Respiratory Rate Blood Pressure [Right Arm] Pulse Oximetry Oxygen Delivery Method Documenting provider has reviewed patient's vital signs: yes Common normals: no apparent distress and well nourished General appearance: cooperative and comfortable HENME Common normals: normocephalic and head/scalp atraumatic Eye Common normals: conjunctivae normal and no scleral icterus Respiratory Common normals: normal respiratory effort, no use of accessory muscles and clear to auscultation bilaterally Cardio Common normals: regular rate, regular rhythm and S1 normal heart sound Back & Pelvis General back: other (Stage 2 pressure ulcer low back region ) Neuro Common normals: oriented x3, moves all extremities and no focal motor deficits Psych Common normals: mental status grossly normal, denies homicidal ideation and denies suicidal ideation Internal Medicine - PN: Obj Da Labs Labs: Laboratory Results - last 24 hr 09/29/22 09/30/22 14:09 04:13 WBC 5.9 RBC 3.45 L Hgb 10.8 L Hct 32.6 L MCV 94.5 H MCH 31.3 MCHC 33.1 RDW 15.0 Plt Count 156 MPV 10.2 Neut % (Auto) 68.6 Lymph % (Auto) 21.0 Hitchcock % (Auto) 7.1 Eos % (Auto) 2.7 Baso % (Auto) 0.3 Neut # (Auto) 4.0 Lymph # (Auto) 1.2 Hitchcock # (Auto) 0.4 Eos # (Auto) 0.2 Baso # (Auto) 0.0 Abs Immat Gran (auto) 0.02 Imm/Tot Granulo (auto) 0.3 Sodium 140 Potassium 3.5 Chloride 108 H Carbon Dioxide 27.6 Anion Gap 7.9 BUN 29.0 H Creatinine 0.68 L Est GFR ( Amer) >60 Est GFR (Non-Af Amer) >60 BUN/Creatinine Ratio 42.6 Glucose 98 Calcium 8.1 L Total Bilirubin 1.7 H AST 46 H ALT 41 Alkaline Phosphatase 64 Total Creatine Kinase 186 Total Protein 5.3 L Albumin 2.2 L Globulin 3.1 Albumin/Globulin Ratio 0.7
[2022-10-01] VITALS (18 sets, daily range): BP systolic 133–143; BP diastolic 76–84; PULSE 58–73; RESP 16–18; TEMP 36.5–36.7; O2SAT 90–95; BMI 27.9
--- NOTE | 2022-10-01 10:46 | REH.PTDLY ---
Physical Therapy Daily Note PT Daily Note/Assess Start: 09/30/22 10:18 Freq: Status: Active Protocol: Document 10/01/22 10:30 ROGER (Rec: 10/01/22 10:46 ROGER [id number]) Physical Therapy Daily Note/Assessment Time In 10:25 Time Out 10:05 Pain Level 0 Pain Level 0 Subjective Pt up in chair just finished breakfast. Agreeable to therapy. Therapeutic Exercise Minutes (minutes) 6 Therapeutic Exercise Units 1 Therapeutic Exercise Treatment Instructed in B LE seated exs 10-15x ea with AP, marching, LAQ, hip abd, and hip add squeezes for improved strength . Therapeutic Activity Minutes (minutes) 10 Therapeutic Activity Units 1 Chair Transfer Ability Contact Guard Assist Therapeutic Activity Comments Sit to stand transfers CGA with cues for pt to push off from arms of chair for safety and not to grab RW. Gait training with RW 72 feet CGA with cues for pt to stay inside of RW. Consecutive sit to stand transfers 3x in a row with cues for hand placement and fatigue in legs noted. Total Therapy Minutes 16 Total Physical Therapy Units 2 Daily Note Summary Progressed gait distance today with pt to improve strength and stamina. Worked on transfers today as well for safety and strength. Pt will benefit from rehab stay to become stronger following fall at home.
--- NOTE | 2022-10-01 11:26 | PM.IMPN1 ---
Progress Note: A&P Assessment and Plan (1) Rhabdomyolysis: Assessment and Plan: resolved. Good UO, PO intake. Qualifiers: Rhabdomyolysis type: non-traumatic Qualified Code(s): M62.82 - Rhabdomyolysis (2) Fall: Assessment and Plan: PT/OT eval. Needing walker to ambulate. Will need short term rehab Qualifiers: Encounter type: subsequent encounter Qualified Code(s): W19.XXXD - Unspecified fall, subsequent encounter (3) Dehydration: Assessment and Plan: resolved. Now with good PO intake. (4) Stage II pressure ulcer: Assessment and Plan: Wound care consult Qualifiers: Pressure injury location: back, unspecified location Qualified Code(s): L89.102 - Pressure ulcer of unspecified part of back, stage 2 (5) Ambulatory dysfunction: Assessment and Plan: PT/OT eval. WIll need rehab placement At baseline patient was ambulating w/o needing any help (6) Low back pain: Assessment and Plan: XR shows multi level DJD changes. No fx. (7) Old lacunar stroke without late effect: Assessment and Plan: No residual deficit. Internal Medicine - PN: Subj Subjective Interval history: Seen and examined. No acute events overnight Exam Constitutional Vital Signs - 24 hr 09/30/22 11:41 09/30/22 11:50 09/30/22 13:47 Temperature Pulse Rate 60 63 Pulse Rate [Monitor] Respiratory Rate Blood Pressure [Right Arm] Pulse Oximetry 94 L Oxygen Delivery Method Room Air 09/30/22 14:15 09/30/22 15:53 09/30/22 17:43 Temperature 98.7 F Pulse Rate 64 63 62 Pulse Rate [Monitor] Respiratory Rate 18 Blood Pressure [Right Arm] 126/66 H Pulse Oximetry 90 L Oxygen Delivery Method Room Air 09/30/22 19:40 09/30/22 20:00 09/30/22 20:00 Temperature Pulse Rate 70 Pulse Rate [Monitor] Respiratory Rate 16 Blood Pressure [Right Arm] Pulse Oximetry 93 L Oxygen Delivery Method Room Air 09/30/22 20:44 09/30/22 22:00 10/01/22 00:00 Temperature 97.9 F Pulse Rate 60 66 Pulse Rate [Monitor] Respiratory Rate 18 Blood Pressure [Right Arm] 146/66 H Pulse Oximetry 90 L Oxygen Delivery Method Room Air 10/01/22 02:00 10/01/22 03:45 10/01/22 04:32 Temperature 98.1 F Pulse Rate 60 59 L 59 L Pulse Rate [Monitor] Respiratory Rate 18 Blood Pressure [Right Arm] 133/80 H Pulse Oximetry 90 L Oxygen Delivery Method Room Air 10/01/22 05:50 10/01/22 07:37 10/01/22 07:50 Temperature Pulse Rate 58 L 64 Pulse Rate [Monitor] 60 Respiratory Rate 16 Blood Pressure [Right Arm] Pulse Oximetry Oxygen Delivery Method 10/01/22 09:58 10/01/22 10:42 Temperature Pulse Rate 68 Pulse Rate [Monitor] Respiratory Rate Blood Pressure [Right Arm] Pulse Oximetry 92 L Oxygen Delivery Method Room Air Documenting provider has reviewed patient's vital signs: yes Common normals: no apparent distress and well nourished General appearance: cooperative and comfortable HENMT Common normals: normocephalic and head/scalp atraumatic Eye Common normals: conjunctivae normal and no scleral icterus Respiratory Common normals: normal respiratory effort, no use of accessory muscles and clear to auscultation bilaterally Cardio Common normals: regular rate, regular rhythm and S1 normal heart sound Back & Pelvis General back: other (Stage 2 pressure ulcer low back region ) Neuro Common normals: oriented x3, moves all extremities and no focal motor deficits Psych Common normals: mental status grossly normal, denies homicidal ideation and denies suicidal ideation Urinary Catheter Management Urinary Catheter Management 2-way Urethral: Cath placed during this visit: yes Urethral indwelling: No Reason for continuing: acute urinary retention Insertion date: 10/01/22 Insertion time: 01:33
--- NOTE | 2022-10-01 12:06 | CM.NOTE ---
Rounds made with Dr. Grover. Family in room and would like Skilled Therapy at [facility] or [facility]. No discharge today.
--- NOTE | 2022-10-01 12:12 | P.PODCN_ITS ---
[facility] - Podiatry Data of Consult Consult date: 10/01/22 Requesting physician: Shaikh Lenore MD Primary care provider: SELENA GANNON Consult Narrative Reason for consult: Heel wounds Narrative: Patient was seen and evaluated this morning by myself. Patient reports that he was found down over a couple of days And believes he was using his heels to scoot across the ground causing some friction blisters. States he's never really had foot wounds or foot problems before. Has noticed increased swelling in his legs since he's been down but does not normally have swelling. States she has complete filling in his feet. Does not really have any pain in his feet today. Denies any other pedal complaints. Denies constitutional symptoms. cc:: CC: Shaikh Lenore MD [facility] Medical History Surgical History Social History Within the past year, how often did you have a drink containing alcohol: monthly or less Smoking status: Never smoker Exam Narrative Exam Narrative: Dermatological: Small intact blisters noted to the posterior aspect of both heels left worse than right. No surrounding erythema. No pain to palpation. No breaks in the skin. No open lesions. Vascular: Pulses palpable for DP bilaterally, PT pulse nonpalpable Edema noted to bilateral lower extremities No Erythema Extremity symmetrically warm Capillary refill intact Nerve: Sensation intact to light touch Musculoskeletal No pain to palpation Strength 4/5 for all quadrants No pain with range of motion No acute osseous abnormalities No pain with calf compression Compartments soft and compressible Constitutional Vital Signs - 24 hr 09/30/22 13:47 09/30/22 14:15 09/30/22 15:53 Temperature 98.7 F Pulse Rate 63 64 63 Pulse Rate [Monitor] Respiratory Rate 18 Blood Pressure [Right Arm] 126/66 H Pulse Oximetry 90 L Oxygen Delivery Method Room Air 09/30/22 17:43 09/30/22 19:40 09/30/22 20:00 Temperature Pulse Rate 62 70 Pulse Rate [Monitor] Respiratory Rate Blood Pressure [Right Arm] Pulse Oximetry 93 L Oxygen Delivery Method Room Air 09/30/22 20:00 09/30/22 20:44 09/30/22 22:00 Temperature 97.9 F Pulse Rate 60 Pulse Rate [Monitor] Respiratory Rate 16 18 Blood Pressure [Right Arm] 146/66 H Pulse Oximetry 90 L Oxygen Delivery Method Room Air 10/01/22 00:00 10/01/22 02:00 10/01/22 03:45 Temperature Pulse Rate 66 60 59 L Pulse Rate [Monitor] Respiratory Rate Blood Pressure [Right Arm] Pulse Oximetry Oxygen Delivery Method 10/01/22 04:32 10/01/22 05:50 10/01/22 07:37 Temperature 98.1 F Pulse Rate 59 L 58 L Pulse Rate [Monitor] 60 Respiratory Rate 18 16 Blood Pressure [Right Arm] 133/80 H Pulse Oximetry 90 L Oxygen Delivery Method Room Air 10/01/22 07:50 10/01/22 09:58 10/01/22 10:42 Temperature Pulse Rate 64 68 Pulse Rate [Monitor] Respiratory Rate Blood Pressure [Right Arm] Pulse Oximetry 92 L Oxygen Delivery Method Room Air 10/01/22 11:51 Temperature Pulse Rate 70 Pulse Rate [Monitor] Respiratory Rate Blood Pressure [Right Arm] Pulse Oximetry Oxygen Delivery Method Assessment and Plan Assessment and Plan (1) Rhabdomyolysis: Assessment and Plan: Likely from fall and being on floor for extended period of time. On IV fluids. C/w IVF. Monitor UO and renal function closely. Qualifiers: Rhabdomyolysis type: non-traumatic Qualified Code(s): M62.82 - Rhabdomyolysis (2) Fall: Assessment and Plan: Fall at home and inability to get up and was on floor for unspecified period of time. PT/OT eval. No acute finding on CT head/spine Qualifiers: Encounter type: subsequent encounter Qualified Code(s): W19.XXXD - Unspecified fall, subsequent encounter (3) Dehydration: Assessment and Plan: Clinically dry on exam. On IVF. c.w same (4) Stage II pressure ulcer: Assessment and Plan: Likely from fall and being on floor for extended period of time. Wound care. Qualifiers: Pressure injury location: back, unspecified location Qualified Code(s): L89.102 - Pressure ulcer of unspecified part of back, stage 2 (5) Ambulatory dysfunction: Assessment and Plan: Lives alone at home. Was on floor for an extended period of time. Needs two person assist to get up, unsteady on his feet. PT/OT eval and rx. Discussed with family and patient. Suspect he might need short term rehab (6) Low back pain: Assessment and Plan: From fall . XR ordered to make sure no rx. (7) Old lacunar stroke without late effect: Assessment and Plan: Incidental finding on CT. no residual deficit on exam Plan Assessment: Small friction blisters ?2 Plan: Patient seen and evaluated Physical exam findings discussed with the patient Labs and vitals reviewed, no leukocytosis, bradycardia noted I discussed with him that his blisters do not look infected and they are still intact I recommended offloading these blisters with bunny boots while in bed or keeping his heels off the ground while he is in a chair He does not really need to keep these dressed unless they become open which point he she is medical hernia and dry dressings A do not recommend draining these blisters at this time as they are quite small and noninfected currently I discussed that they increase in size or pain or worrisome for infection we can deroof them He could be weightbearing as tolerated in a surgical shoe He may follow up in our office 1-2 weeks from discharge Please call with questions or concerns
--- NOTE | 2022-10-01 13:15 | SWNOTE1 ---
ERA met with pt and family in room. Pt lives at home by himself. Family and pt have decided he needs to go to SNF to get stronger. Pt has agreed to go skilled. [facility] is the first option and [facility] is the second. ERA sent referral to [facility]. No precert. Earliest dc would be 10/02/22.
--- NOTE | 2022-10-01 13:29 | SWNOTE1 ---
SW did review IMM form with pt and family. They all voiced understanding, no questions. Pt's daughter signed form, original given to pt and copy placed in chart.
--- NOTE | 2022-10-01 15:35 | SWNOTE1 ---
[facility] able to accept, plan for dc 10/02. SW spoke with pt's daughter, Liss, and pt's son plans on transporting.
[2022-10-02] VITALS (9 sets, daily range): BP systolic 129; BP diastolic 71; PULSE 66–72; RESP 18; TEMP 36.7; O2SAT 90–96
--- NOTE | 2022-10-02 09:12 | REH.PTDLY ---
Physical Therapy Daily Note PT Daily Note/Assess Start: 09/30/22 10:18 Freq: Status: Active Protocol: Document 10/02/22 07:45 ROGER (Rec: 10/02/22 09:12 KURTLAILA [id number]) Physical Therapy Daily Note/Assessment Time In 07:30 Time Out 07:46 Pain N/A Pain N/A Subjective Pt reports LB discomfort but does not rate on pain scale. Pt is up in chair upon arrival and willing to participate in therapy. Therapeutic Exercise Minutes (minutes) 9 Therapeutic Exercise Units 1 Therapeutic Exercise Treatment Instructed pt in B LE exs 10- 12x ea for improved strength with legs elevated in recliner and exs including AP, QS, heel slides, hip abd. Legs lowered to dependent position and instructed in B LAQ, marching, hip abd, and hip add squeezes 10x ea. Therapeutic Activity Minutes (minutes) 7 Therapeutic Activity Units 0 Chair Transfer Ability Standby Assistance Therapeutic Activity Comments Pt transfers out of chair SBA with better awareness today to push off from arms of chair. Gait training with RW SBA and several cues needed for pt to stay inside the RW to avoid it getting too far out in front of him. Pt ambulated 100 feet with fatigue noted afterwards. Total Therapy Minutes 16 Total Physical Therapy Units 1 Daily Note Summary Progressed gait distance with fatigue noted and cues needed for safety. Pt can benefit from SNF stay as he has weakness and history of falls.
--- NOTE | 2022-10-02 12:36 | CM.NOTE ---
Rounds made with Dr. Grover, pt ok for discharge to [facility] for skilled therapy.
--- NOTE | 2022-10-02 14:31 | PM.DS1 ---
DS: Providers Provider Date of admission: 09/29/22 13:55 Primary care physician: Joceline Ricardo MD Admitting clinician: Shaikh Lenore Attending physician on admission: Shaikh Lenore Consults: 09/28/22 16:18 Physical Therapy Eval and Treat Routine 09/29/22 13:52 Occupational Therapy Eval and Treat Routine Physical Therapy Eval and Treat Routine 09/30/22 Consult to Wound Care Routine Consulting Provider: Arnaldo Miller Attending physician on discharge: Shaikh Lenore Discharging clinician: Shaikh Lenore DS: Diagnosis Discharge Diagnosis (1) Rhabdomyolysis: Assessment and plan: resolved. Qualifiers: Rhabdomyolysis type: non-traumatic Qualified Code(s): M62.82 - Rhabdomyolysis (2) Fall: Assessment and plan: Mechanical fall, no fx or dislocation. No head trauma Qualifiers: Encounter type: subsequent encounter Qualified Code(s): W19.XXXD - Unspecified fall, subsequent encounter (3) Dehydration: Assessment and plan: resolved with IVF. (4) Stage II pressure ulcer: Assessment and plan: Wound care as outpatient. Qualifiers: Pressure injury location: back, unspecified location Qualified Code(s): L89.102 - Pressure ulcer of unspecified part of back, stage 2 (5) Ambulatory dysfunction: Assessment and plan: PT/OT. D/c to short term rehab (6) Low back pain: Assessment and plan: No fx. DJD changes of spine. (7) Old lacunar stroke without late effect: Assessment and plan: Incidental finding on CT head. No residual deficits DS: Summary Hospital Course Hospital Course: Patient admitted after fall for weakness, ambulatory dysfunction, rhabdomyolsys - received IVF, PT/OT eval and rx. Rhabdomyolysis resolved. PT/OT recommended short term rehab placement - patient discharged to [facility] Status at Discharge Functional status at discharge: uses cane/walker Time Spent with Patient Time attestation: Total time spent providing and/or coordinating discharge services: Time spent: greater than 30 minutes Exam Constitutional Vital Signs - 24 hr 10/01/22 16:00 10/01/22 18:00 10/01/22 20:07 Temperature Pulse Rate 72 68 73 Respiratory Rate Blood Pressure [Right Arm] Pulse Oximetry Oxygen Delivery Method 10/01/22 19:49 10/01/22 22:02 10/01/22 22:51 Temperature 98.1 F Pulse Rate 62 66 Respiratory Rate 16 Blood Pressure [Right Arm] 134/84 H Pulse Oximetry 94 L 94 L Oxygen Delivery Method Room Air Room Air 10/02/22 00:01 10/02/22 02:01 10/02/22 04:00 Temperature Pulse Rate 66 67 67 Respiratory Rate Blood Pressure [Right Arm] Pulse Oximetry Oxygen Delivery Method 10/02/22 04:24 10/02/22 06:02 10/02/22 06:15 Temperature 98.1 F Pulse Rate 69 66 Respiratory Rate 18 Blood Pressure [Right Arm] 129/71 H Pulse Oximetry 96 90 L Oxygen Delivery Method Room Air Room Air 10/02/22 08:08 10/02/22 12:01 10/02/22 13:58 Temperature Pulse Rate 68 70 72 Respiratory Rate Blood Pressure [Right Arm] Pulse Oximetry Oxygen Delivery Method Documenting provider has reviewed patient's vital signs: yes Common normals: no apparent distress and well nourished General appearance: cooperative and comfortable HENMT Common normals: normocephalic and head/scalp atraumatic Eye Common normals: conjunctivae normal and no scleral icterus Respiratory Common normals: normal respiratory effort, no use of accessory muscles and clear to auscultation bilaterally Cardio Common normals: regular rate, regular rhythm and S1 normal heart sound Back & Pelvis General back: other (Stage 2 pressure ulcer low back region ) Neuro Common normals: oriented x3, moves all extremities and no focal motor deficits Psych Common normals: mental status grossly normal, denies homicidal ideation and denies suicidal ideation Discharge Plan Discharge Disposition: [facility] SNF Condition: Fair Discharge Medications: Discontinued erythromycin 5 mg/gram (0.5 %) ointment OPHTHALMIC (EYE) Allergist/Md/Sales Support Representative Instructions: Patient will be going to [facility]. Forms: Portal Instructions Follow Up Appointments: PCP in one week
--- NOTE | 2022-10-02 16:24 | SWNOTE1 ---
[facility], completed HENS, and updated packet. Pt's son is taking pt to [facility]. Pt is going skilled.
== END 2022-10-02 15:55 | DRG 558 ==
LOC: ER 12:22 → MS 15:41
PROVIDERS: Family Medicine; Admitting Provider Internal Medicine; Emergency Provider Emergency Medicine; PCP Family Medicine; Visit Provider Internal Medicine
DX: M62.82 Rhabdomyolysis (principal); E86.0 Dehydration; M54.50 Low back pain, unspecified; L89.102 Pressure ulcer of unspecified part of back, stage 2; S00.01XA Abrasion of scalp, initial encounter; S30.1XXA Contusion of abdominal wall, initial encounter; D64.9 Anemia, unspecified; S90.822A Blister (nonthermal), left foot, initial encounter; S90.821A Blister (nonthermal), right foot, initial encounter; R33.9 Retention of urine, unspecified; R26.9 Unspecified abnormalities of gait and mobility; R41.82 Altered mental status, unspecified; W07.XXXA Fall from chair, initial encounter; X50.9XXA Other and unspecified overexertion or strenuous movements or postures, initial encounter; Z79.899 Other long term (current) drug therapy; Z86.73 Personal history of transient ischemic attack (TIA), and cerebral infarction without residual deficits; Z91.81 History of falling; Y92.019 Unspecified place in single-family (private) house as the place of occurrence of the external cause
CPT/HCPCS: 36415; 51702; 70450; 71045; 72100; 72125; 80053; 81001; 82140; 82550; 82553; 82607; 82728; 83540; 83550; 83605; 83874; 84436; 84443; 84481; 84484; 85025; 85610; 93005; 94761; 96361; 96374; 97110; 97162; 97165; 97530; 99285; G0378

== ENCOUNTER 2022-09-28 11:06 | Outpatient (REF) | payer MEDICARE, SELFPAY ==
[2022-09-28 12:47] LABS: Percent Iron Saturation 24.2 %
== END 2022-09-28 11:07 ==
LOC: LAB 11:06
PROVIDERS: PCP Internal Medicine; Visit Provider Internal Medicine
DX: D64.9 Anemia, unspecified (principal)
CPT/HCPCS: 36415; 82607; 82728; 82746; 83540; 83550

== ENCOUNTER 2022-10-11 10:02 | Outpatient (OUT) | payer MEDICARE, OTHER, SELFPAY | END 2022-10-11 10:03 | disposition home or self-care (01) | PROVIDERS: PCP Internal Medicine; Visit Provider Surgery | DX: L89.620 Pressure ulcer of left heel, unstageable (principal); L89.610 Pressure ulcer of right heel, unstageable; L89.222 Pressure ulcer of left hip, stage 2; L89.152 Pressure ulcer of sacral region, stage 2; E86.0 Dehydration; R41.0 Disorientation, unspecified; I82.409 Acute embolism and thrombosis of unspecified deep veins of unspecified lower extremity; R60.9 Edema, unspecified; S09.90XD Unspecified injury of head, subsequent encounter; M62.82 Rhabdomyolysis; M54.2 Cervicalgia; Z91.81 History of falling; I63.9 Cerebral infarction, unspecified; L89.102 Pressure ulcer of unspecified part of back, stage 2 | CPT/HCPCS: A6213; G0463 ==

== ENCOUNTER 2022-10-25 13:04 | Outpatient (OUT) | payer MEDICARE, OTHER, SELFPAY | END 2022-10-25 13:05 | disposition home or self-care (01) | LOC: WC 13:04 | PROVIDERS: PCP Internal Medicine; Visit Provider Surgery | DX: L89.620 Pressure ulcer of left heel, unstageable (principal); L89.610 Pressure ulcer of right heel, unstageable; L89.222 Pressure ulcer of left hip, stage 2; L89.152 Pressure ulcer of sacral region, stage 2 | CPT/HCPCS: 11042; A6213 ==

== ENCOUNTER 2023-02-27 13:07 | Outpatient (OUT) | payer MEDICARE, OTHER, SELFPAY ==
--- NOTE | 2023-02-27 13:12 | US_ITS ---
The [place] [id number] Patient Name: ROSANNA SOUSA MRN: [id number] date: 1940 Sex: M Assigned Patient Location: US Current Patient Location: Accession/Order Number: [id number] Exam Date: 02/27/2023 13:13 Report Date: 02/27/2023 16:18 At the request of: ANDREA BLOCK Procedure: US venous doppler LE LT EXAMINATION: US venous doppler LE LT HISTORY: Acute Deep Vein Thrombosis Of Right Peroneal Vein COMPARISON: No relevant comparison available. FINDINGS: REGION: Left lower extremity THROMBI: None. COMPRESSIBILITY: Normal compressibility. FLOW: Normal waveform and antegrade flow between 5 and 20 cm/s. OTHER: None. US/US venous doppler LE LT IMPRESSION: 1. No deep vein thrombus within the left lower extremity. Electronically authenticated by: LOUIS BROOKE Date: 02/27/2023 16:18
--- OUTSIDE RECORDS SUMMARY | 2023-04-09 14:53 | XMS_ITS | CCD ---
Author Name Unknown Address [address] [place] [address] Organization [facility] Care Team Providers Care Braille Operator Name Role Phone Flex Block Unavailable DR FLEX BLOCK Admitting Unavailable UMAIR, DR MENDEZ Primary Care Unavailable DR FLEX BLOCK Consulting Unavailable DR FLEX BLOCK Attending Unavailable Delgado [place] Consulting Unavailable Kamilla Vieira Unavailable Allergies Allergy Classification Reported Allergen(s) Allergy Type Date of Onset Reaction(s) Facility (8 sources) patient allergy list reviewed by nurse or physicia Propensity to adverse reactions 5 Comment:Done [facility] Other Medications Current Medications Medication Drug Class(es) Dates Sig (Normalized) Sig (Original) 8 hr acetaminophen 650 mg extended release oral tablet (10 sources) take 1 capsule by mouth every six hours Acetaminophen 500 MG 1 capsule as needed Orally every 6 hrs Active take 2 tablets by mouth every ei ght hours Tylenol 8 Hour 650 MG 2 tablets as needed Orally every 8 hrs Active apixaban 5 mg oral tablet (9 sources) Factor Xa Inhibitor take 1 tablet by mouth every twelve hours Eliquis 5 MG 1 tablet Orally Twice a day Active furosemide 20 mg oral tablet (9 sources) Loop Diuretic take 1 tablet by mouth every other day Furosemide 20 MG 1 tablet Orally every other day Active take 1 tablet by elly th every twenty-four hours Furosemide 20 MG 1 tablet Orally Once a day Active Psyllium (9 sources) Metamucil 28 % 1 packet with 8 ounces of liquid as needed Orally Once a day Active Tylenol 8 Hour 650 MG (8 sources) take 2 tablets by mo uth every eight hours as needed Tylenol 8 Hour 650 MG 2 tablets as needed Orally every 8 hrs Active Problems Active Problems Problem Classification Problem Date Documented Date Episodic/Chronic Chronic ulcer of skin (13 sources) 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; Translations: [Pressure ulcer of sacral region, stage 1] Chronic Fracture of neck of femur (hip) (1 source) Fracture of unspecified part of neck of left femur, subsequent encounter for closed fracture with routine healing Episodic Genitourinary symptoms and ill-defined conditions (1 source) Nocturia Episodic Hyperplasia of prostate (20 sources) Nocturia due to benign prostatic hypertrophy; Translations: [Benign p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] Onset: 0 Chronic Immunizations and screening for infectious disease (1 source) Encounter for immunization Episodic Intestinal infection (8 sources) Clostridial gastroenteritis; Translations: [Enterocolitis due to Clostridium difficile, not specified as recurrent] Episodic Malaise and fatigue (18 sources) Other fatigue; Translations: [Malaise and fatigue] Onset: 8 Episodic Nutritional deficiencies (11 sources) Moderate protein energy malnutrition; Translations: [Moderate protein-calorie malnutrition] Chronic Osteoarthritis (8 sources) Osteoarthritis; Translations: [Polyosteoarthritis, unspecified] Chronic Other acquired deformities (5 sources) Other deformity of right finger(s); Translations: [OTHER DEFORMITY OF RIGHT FINGERS] Onset: 3 Episodic Other acquired deformities (2 sources) Other deformity of left finger(s); Translations: [OTHER DEFORMITY OF LEFT FINGERS] Onset: 3 Episodic Other aftercare (2 sources) Other jail (current) drug therapy; Translations: [[facility] CURRENT DRUG THERAPY] Onset: 3 Episodic Other and unspecified benign neoplasm (8 sources) Benign neoplasm of skin; Translations: [Benign neoplasm of skin, site unspecified] Episodic Other diseases of veins and lymphatics (20 sources) Peripheral venous insufficiency; Translations: [Venous insufficiency (chronic) (peripheral)] Episodic Other diseases of veins and lymphatics (1 source) Venous insufficiency (chronic) (peripheral) Episodic Other fractures (1 source) Fracture of one rib, right side, subsequent encounter for fracture with routine healing Episodic Other fractures (1 source) Fracture of one rib, left side, subsequent encounter for fracture with routine healing Episodic Other gastrointestinal disorders (20 sources) Diarrhea; Translations: [Diarrhea, unspecified] Episodic Other gastrointestinal disorders (9 sources) Dysphagia; Translations: [Dysphagia, pharyngoesophageal phase] Episodic Other gastrointestinal disorders (1 source) Dysphagia, pharyngoesophageal phase Episodic Other gastrointestinal disorders (1 source) Diarrhea, unspecified; Translations: [Diarrhea] Episodic Other nutritional; endocrine; and metabolic disorders (8 sources) Simple obesity ; Translations: [Other obesity due to excess calories] Onset: 6 Chronic Other nutritional; endocrine; and metabolic disorders (8 sources) Body mass index 30+ - obesity; Translations: [Body mass index 31.0-31.9, adult] Onset: 6 Chronic Other upper respiratory disease (20 sources) Allergic rhinitis due to pollen; Translations: [Allergic rhinitis due to pollen] Chronic Other upper respiratory disease (1 source) Allergic rhinitis due to pollen Chronic Other upper respiratory disease (8 sources) Seasonal allergic rhinitis; Translations: [Other seasonal allergic rhinitis] Onset: 8 Chronic Other upper respiratory disease (8 sources) Allergic rhinitis; Translations: [Allergic rhinitis, unspecified] Chronic Pulmonary heart disease (11 sources) Pulmonary hypertension; Translations: [Pulmonary hypertension, unspecified] Chronic Residual codes; unclassified (2 sources) Localized edema Episodic Spondylosis; intervertebral disc disorders; other back problems (20 sources) Lumbar spondylosis; Translations: [Spondylosis without myelopathy or radiculopathy, lumbar region] Chronic Past or Other Problems Problem Classification Problem Date Documented Da te Episodic/Chronic Deficiency and other anemia (8 sources) Anemia; Translations: [Anemia, unspecified] Onset: 12-09-2014 Episodic Other gastrointestinal disorders (8 sources) Other specified symptoms and signs involving the digestive system and abdomen; Translations: [Oth symptoms and signs involving the dgstv sys and abdomen] Onset: 11-17-2015 Episodic Other hematologic conditions (8 sources) H/O: blood disorder; Translations: [Personal history of diseases of blood and blood-forming organs] Onset: 12-09-2014 Episodic Other lower respiratory disease (8 sources) Cough; Translations: [Cough, unspecified] Onset: 01-20-2018 Episodic Other lower respiratory disease (8 sources) Dyspnea; Translations: [Other forms of dyspnea] Onset: 11-15-2015 Episodic Other skin disorders (8 sources) Generalized hyperhidrosis; Translations: [Generalized hyperhidrosis] Onset: 07-26-2016 Episodic Screening and history of mental health and substance abuse codes (8 sources) History of tobacco use; Translations: [Personal history of tobacco use, presenting hazards to health] Onset: 04-23-2017 Episodic Unclassified (1 source) Acute embolism and thrombosis of left peroneal vein Unclassified (1 source) Pressure-induced deep tissue damage of sacral region Unclassified (2 sources) Acute embolism and thrombosis of right peroneal vein Results Test Name Value Interpretation Reference Range Facil ity CBC AUTO DIFFon 08-15-2022 BASO # 0.0 103/ul Normal 0.0-0.1 [facility] Comment on above: Performed By: #### C BC #### [facility] [address] [place] [address] Dr. Emily Lauren Basophils/100 WBC (Bld) 0.3 % Normal 0.2-2.0 [facility] Comment on above: Performed By: #### C BC #### [facility] [address] [place] [address] Dr. Emily Lauren EO # 0.2 103/ul Normal 0.0-0.7 [facility] Comment on above: Performed By: #### C BC #### [facility] [address] [place] [address] Dr. Emily Lauren Eosinophils/100 WBC (Bld) 3.1 % Normal 0.9-7.0 [facility] Comment on above: Performed By: #### C BC #### [facility] [address] [place] [address] Dr. Emily Lauren Erythrocyte distribution wid th (RBC) [Ratio] 14.9 % Normal 11.0-15.0 [facility] Comment on above: Performed By: #### C BC #### [facility] [address] [place] [address] Dr. Emily Lauren Hematocrit (Bld) [Volume fraction] 39.9 % Critically low 42.0-54.0 [facility] Comment on above: Performed By: #### C BC #### [facility] [address] [place] [address] Dr. Emily Lauren Hemoglobin (Bld) [Mass/Vol] 12.9 g/dL Critically low 14.0 -18.0 [facility] Comment on above: Performed By: #### C BC #### [facility] [address] [place] [address] Dr. Emily Lauren IG # 0.02 10e3/ul Normal 0.00-0.03 [facility] Comment on above: Performed By: #### C BC #### [facility] [address] [place] [address] Dr. Emily Lauren IG % 0.3 % Normal 0.0-0.5 [facility] Comment on above: Performed By: #### C BC #### [facility] [address] [place] [address] Dr. Emily Lauren LYMPH # 2.4 103/ul Normal 1.2-3.8 [facility] Comment on above: Performed By: #### C BC #### [facility] [address] [place] [address] Dr. Emily Lauren Lymphocytes/100 WBC (Bld) 30.7 % Normal 20.5-60.0 [facility] Comment on above: Performed By: #### C BC #### [facility] [address] [place] [address] Dr. Emily Lauren MANUAL DIFF REQ NO Normal [facility] Comment on above: Performed By: #### C BC #### [facility] [address] [place] [address] Dr. Emily Lauren MCH (RBC) [Entitic mass] 30.4 pg Normal 25.9-34.0 [facility] Comment on above: Performed By: #### C BC #### [facility] [address] [place] [address] Dr. Emily Lauren MCHC (RBC) [Mass/Vol] 32.3 g/dL Normal 29.9-35.2 [facility] Comment on above: Performed By: #### C BC #### [facility] [address] [place] [address] Dr. Emily Lauren MCV (RBC) [Entitic vol] 94.1 fL Critically high 80.0-94 .0 [facility] Comment on above: Performed By: #### C BC #### [facility] [address] [place] [address] Dr. Emily Lauren MONO # 0.5 103/ul Normal 0.3-0.8 [facility] Comment on above: Performed By: #### C BC #### [facility] [address] [place] [address] Dr. Emily Lauren Monocytes/100 WBC (Bld) 5.9 % Normal 1.7-12.0 [facility] Comment on above: Performed By: #### C BC #### [facility] [address] [place] [address] Dr. Emily Lauren NEUT # 4.6 103/ul Normal 1.4-6.5 [facility] Comment on above: Performed By: #### C BC #### [facility] [address] [place] [address] Dr. Emily Lauren Neutrophils/100 WBC (Bld) 59.7 % Normal 43.0-75.0 [facility] Comment on above: Performed By: #### C BC #### [facility] [address] [place] [address] Dr. Emily Lauren Platelet mean volume (Bld) [Entitic vol] 9.7 fL Normal 9.5-13.5 [facility] Comment on above: Performed By: #### C BC #### [facility] [address] [place] [address] Dr. Emily Lauren PLT 176 103/ul Normal 150-450 [facility] Comment on above: Performed By: #### C BC #### [facility] [address] [place], [place] [id number] Dr. Emily Lauren RBC 4.24 106/ul Critically low 4.70-6.10 [facility] Comment on above: Performed By: #### C BC #### [facility] [address] [place] [address] Dr. Emily Lauren WBC 7.7 103/ul Normal 4.0-11.0 [facility] Comment on above: Performed By: #### C BC #### [facility] [address] [place] [address] Dr. Emily Lauren PROF 14(COMP METB)on 023 Albumin [Mass/Vol] 3.4 g/dL Normal 3.4-5.0 [facility] Comment on above: Performed By: #### C MP #### [facility] [address] [place] [address] Dr. Emily Lauren Albumin/Globulin [Mass ratio] 0.8 {ratio} Normal [facility] Comment on above: Performed By: #### C MP #### [facility] [address] [place] [address] Dr. Emily Lauren ALP [Catalytic activity/Vol] 81 U/L Normal 46-116 [facility] Comment on above: Performed By: #### C MP #### [facility] [address] [place] [address] Dr. Emily Lauren ALT [Catalytic activity/Vol] 44 U/L Normal 16-63 [facility] Comment on above: Performed By: #### C MP #### [facility] [address] [place] [address] Dr. Emily Lauren Anion gap [Moles/Vol] 11.3 mmol/L Normal [facility] Comment on above: Performed By: #### C MP #### [facility] [address] [place] [address] Dr. Emily Lauren AST [Catalytic activity/Vol] 41 U/L Critically high 15 -37 [facility] Comment on above: Performed By: #### C MP #### [facility] [address] [place] [address] Dr. Emily Lauren Bilirubin [Mass/Vol] 1.4 mg/dL Critically high 0.2-1.0 [facility] Comment on above: Performed By: #### C MP #### [facility] [address] [place] [address] Dr. Emily Lauren Calcium [Mass/Vol] 9.2 mg/dL Normal 8.5-10.1 [facility] Comment on above: Performed By: #### C MP #### [facility] [address] [address] [address] Emily Lauren Chloride [Moles/Vol] 106 mmol/L Normal 98-107 [facility] Comment on above: Performed By: #### C MP #### [facility] [address] [address] [address] Emily Lauren CO2 [Moles/Vol] 29.8 mmol/L Normal 21.0-32.0 [facility] Comment on above: Performed By: #### C MP #### [facility] [address] [address] [address] Emily Lauren Creatinine [Mass/Vol] 0.83 mg/dL Normal 0.70-1.30 [facility] Comment on above: Performed By: #### C MP #### [facility] [address] [address] [address] Emily Lauren EGFR-AF ICELANDIC >60 Normal >=60 [facility] Comment on above: Performed By: #### C MP #### [facility] [address] [place] [address] Dr. Emily Lauren EGFR-NON AF ICELANDIC >60 Normal >=60 [facility] Comment on above: Performed By: #### C MP #### [facility] [address] [address] [address] Emily Lauren Globulin (S) [Mass/Vol] 4.2 g/dL Normal [facility] Comment on above: Performed By: #### C MP #### [facility] [address] [address] [address] Emily Lauren Glucose [Mass/Vol] 80 mg/dL Normal 74-106 [facility] Comment on above: Performed By: #### C MP #### [facility] [address] [address] [address] Emily Lauren Potassium [Moles/Vol] 4.1 mmol/L Normal 3.5-5.1 [facility] Comment on above: Performed By: #### C MP #### [facility] [address] [address] [address] Emily Lauren Protein [Mass/Vol] 7.6 g/dL Normal 6.4-8.2 [facility] Comment on above: Performed By: #### C MP #### [facility] [address] [address] [address] Emily Lauren Sodium [Moles/Vol] 143 mmol/L Normal 136-145 [facility] Comment on above: Performed By: #### C MP #### [facility] [address] [address] [address] Emily Lauren Urea nitrogen [Mass/Vol] 26.0 mg/dL Critically high 7.0-18 .0 [facility] Comment on above: Performed By: #### C MP #### [facility] [address] [address] [address] Emily Lauren Urea nitrogen/Creatinine [Mass ratio] 31.3 mg/mg Normal [facility] Comment on above: Performed By: #### C MP #### [facility] [address] [address] [address] Emily Lauren Vital Signs Date Time Vital Sign Value Performing Clinician Facility 02-22-2023 13:30-0400 Body height 175.26 cm Flex Block Other [facility] Other 02-22-2023 13:30-0400 Body mass index (BMI) [Ratio] 27.82 kg/m2 Flex Block Other [facility] Other 02-22-2023 13:30-0400 Body weight 85.46 kg Flex Block Other [facility] Other 02-22-2023 13:30-0400 Diastolic blood pressure 70 mm[Hg] Flex Block Other [facility] Other 02-22-2023 13:30-0400 Respiratory rate 12 /min Flex Block Other [facility] Other 02-22-2023 13:30-0400 Systolic blood pressure 109 mm[Hg] Flex Ball Other [facility] Other 08-14-2022 12:00-0400 Body height 175.26 cm Flex Ball Other [facility] Other 08-14-2022 12:00-0400 Body mass index (BMI) [Ratio] 28.29 kg/m2 Flex Ball Other [facility] Other 08-14-2022 12:00-0400 Body weight 86.91 kg Flex Ball Other [facility] Other 08-14-2022 12:00-0400 Diastolic blood pressure 80 mm[Hg] Flex Ball Other [facility] Other 08-14-2022 12:00-0400 Respiratory rate 20 /min Flex Ball Other [facility] Other 08-14-2022 12:00-0400 Systolic blood pressure 126 mm[Hg] Flex Ball Other [facility] Other Encounters Encounter Date Encounter Type Care Provider Facility Start: 04-05-2023 End: 04-05-2023 ambulatory Flex Umair Other [facility] Other Start: 04-05-2023 Telephone encounter Flex Ball [facility] Start: 03-19-2023 End: 03-19-2023 ambulatory Flex Ball Other [facility] Other Start: 03-19-2023 Telephone encounter Flex Ball [facility] Start: 03-07-2023 End: 03-07-2023 ambulatory Flex Ball Other [facility] Other Start: 03-07-2023 Home visit est pt mod-hi severity 40 minutes Flex Block [facility] Start: 03-06-2023 End: 03-06-2023 ambulatory Flex Block Other [facility] Other Start: 03-06-2023 Telephone encounter Flex Block [facility] Start: 03-05-2023 End: 03-05-2023 ambulatory Flex Block Other [facility] Other Start: 03-05-2023 Telephone encounter Flex Block [facility] Start: 02-28-2023 End: 02-28-2023 ambulatory Kamilla Vieira Other [facility] Other Start: 02-28-2023 Nursing evaluation o f patient and report Kamilla Vieira [facility] Start: 02-22-2023 End: 02-22-2023 ambulatory Flex Block Other [facility] Other Start: 02-22-2023 Transitional care manage srvc 14 day discharge Flex Block [facility] Start: 02-20-2023 End: 02-20-2023 ambulatory Flex Block Other [facility] Other Start: 02-20-2023 Telephone encounter Flex Block [facility] Start: 02-11-2023 End: 02-11-2023 ambulatory Flex Block Other [facility] Other Start: 02-11-2023 Telephone encounter Flex Block [facility] Start: 01-03-2023 End: 01-03-2023 ambulatory Flex Block Other [facility] Other Start: 01-03-2023 Telephone encounter Flex Block [facility] Start: 01-02-2023 End: 01-02-2023 ambulatory Flex Block Other [facility] Other Start: 01-02-2023 Telephone encounter Flex Block [facility] Start: 01-01-2023 End: 01-01-2023 ambulatory Flex Block Other [facility] Other Start: 01-01-2023 Telephone encounter Flex Block [facility] Start: 12-31-2022 End: 12-31-2022 ambulatory Flex Block Other [facility] Other Start: 12-31-2022 Telephone encounter Flex Block [facility] Start: 12-10-2022 End: 12-10-2022 ambulatory Flex Block Other [facility] Other Start: 12-10-2022 Telephone encounter Flex Block [facility] Start: 12-09-2022 End: 12-09-2022 ambulatory Flex Block Other [facility] Other Start: 12-09-2022 Telephone encounter Flex Block [facility] Start: 10-04-2022 End: 10-04-2022 ambulatory Flex Block Other [facility] Other Start: 10-04-2022 Telephone encounter Flex Block [facility] Start: 08-16-2022 End: 08-16-2022 ambulatory Flex Block Other [facility] Other Start: 08-16-2022 Telephone encounter Flex Block [facility] Start: 08-15-2022 Telephone encounter Flex Block [facility] Start: 08-15-2022 End: 08-16-[address] FLEX BLOCK [facility] Other Start: 08-14-2022 End: 08-14-2022 ambulatory Flex Block Other [facility] Other Start: 08-14-2022 Patient encounter procedure Flex Block [facility] Start: 05-20-2019 Adult health examination Flex Block Other [facility] Other Procedures Date Procedure Procedure Detail Performing Clinician Start: 07-03-2017 Diabetes mellitus screening [facility] Other Start: 11-15-2015 Screening for malign ant neoplasm of colon Flex [facility] Other Screening for malign ant neoplasm of prostate [facility] Other Immunizations Immunization Date Immunization Notes Care Provider Fa gisela 02-28-2023 influenza, high dose seasonal, preservative-free Flex Block Other [facility] Other 04-11-2022 influenza, injectabl e, quadrivalent, preservative free Flex Block Other [facility] Other 02-23-2021 COVID-19 Vaccine Moderna - Documentation Purposes Only Flex Block Other [facility] Other 06-17-2020 COVID-19 Vaccine Moderna - Documentation Purposes Only Flex Block Other [facility] Other 05-20-2020 COVID-19 Vaccine Moderna - Documentation Purposes Only Flex [facility] Other [facility] Other 07-03-2017 pneumococcal conjuga te vaccine, 13 valent Flex Block Other [facility] Other 07-03-2017 pneumococcal Conjuga te, unspecified formulation; Translations: [Need for prophylactic vaccination against Streptococcus pneumoniae (pneumococcus)] Flex Block Other [facility] Other 03-07-2017 influenza virus vaccine, split virus (incl. purified surface antigen) Flex Block Other [facility] Other 03-28-2016 influenza virus vaccine, split virus (incl. purified surface antigen) Flex Block Other [facility] Other 03-08-2015 influenza virus vaccine, split virus (incl. purified surface antigen) Flex Block Other [facility] Other 04-09-2013 tetanus and diphther ia toxoids, adsorbed, preservative free, for adult use (5 Lf of tetanus toxoid and 2 Lf of diphtheria toxoid) Flex Block Other [facility] Other 01-28-2013 tetanus and diphther ia toxoids, adsorbed, preservative free, for adult use (5 Lf of tetanus toxoid and 2 Lf of diphtheria toxoid) Flex Block Other [facility] Other 03-29-2010 pneumococcal polysaccharide vaccine, 23 valent Flex Block Other [facility] Other Payers Date Payer Category Payer Medicare [id number] 2.1 [id number] 1940 Unknown [id number] Unknown [id number] Social History Date Type Detail Facility Sex Assigned At [facility] Other Clinical Notes 08-14-2022 to 03-07-2023 Note Date & Type Note Facility 03-07-2023 Evaluation note Encounter Date Diagnosis Assessment Notes Feb, Closed fracture of one rib of left side with routine healing, subsequent encounter (ICD-10 - S22.32XD) Continue PT/OT Increase activity as tolerated. Balance and transfer therapy stressed Fall alerts in place Fall precautions stressed Cough and deep breathing exercises Feb, Pulmonary hypertension (ICD-10 - I27.20) Monitor fluid status w/ weights, volume status. Lasix qod Feb, Bilateral lower extremity edema (ICD-10 - R60.0) Avoid salt and elevate lower extremities, support stockings, inspect legs and feet daily for blisters and ulcerations. Feb, Moderate protein-calorie malnutrition (ICD-10 - E44.0) Encourage high protein diet Feb, Acute deep vein thrombosis (DVT) of right peroneal vein (ICD-10 - I82.451) Continue AC for 6months. Check DDimer and venous US. [facility] Other 11-14-2023 Evaluation note* Encounter Date Diagnosis Assessment Notes Treatment Notes Treatment Clinical Notes Feb, Closed fracture of one rib of right side with routine healing, subsequent encounter (ICD-10 - S22.31XD) [facility] Other 11-09-2023 Evaluation note* Encounter Date Diagnosis Assessment Notes Treatment Notes Treatment Clinical Notes Feb, Need for vaccination (ICD-10 - Z23) [facility] Other 11-03-2023 Evaluation note* Encounter Date Diagnosis Assessment Notes Treatment Notes Treatment Clinical Notes Feb, Closed fracture of l eft hip with routine healing, subsequent encounter (ICD-10 - S72.002D) Continue PT/OT for ROM, strengthening exercises. Continue transfer and gait training. Feb, Acute deep vein thrombosis (DVT) of right peroneal vein (ICD-10 - I82.451) Continue DOAC for 6 months and repeat venous US. No bleeding complications noted. Feb, Bilateral lower extremity edema (ICD-10 - R60.0) Avoid salt and elevate lower extremities, support stockings, inspect legs and feet daily for blisters and ulcerations. Feb, Pharyngoesophageal dysphagia (ICD-10 - R13.14) Small portions/bites and follow w/ sip of water. MBS scheduled Feb, Pulmonary hypertensi on (ICD-10 - I27.20) Low salt diet, monitor weight and fluid status Feb, Pressure injury of sacral region, stage 1 (ICD-10 - L89.151) Keep pressure off area. Keep clean and dry. s/p wound vac RN to monitor for now. Feb, Pressure injury of l eft heel, stage 1 (ICD-10 - L89.621) Much improved, continue to avoid pressure. Keep clean and dry Feb, Pressure injury of right heel, stage 1 (ICD-10 - L89.611) Much improved, continue to avoid pressure. Keep clean and dry Feb, Moderate protein-calorie malnutrition (ICD-10 - E44.0) Protein/calorie supplements daily. Monitor weight. [employer] Other 08-21-2023 Evaluation note* Encounter Date Diagnosis Assessment Notes Treatment Notes Treatment Clinical Notes Nov, Acute deep vein thrombosis (DVT) of left peroneal vein (ICD-10 - I82.452) Nov, Pressure injury of deep tissue of sacral region (ICD-10 - L89.156) Nov, Skin ulcer of heel, limited to breakdown of skin, unspecified laterality (ICD-10 - L97.401) [employer] Other 04-26-2023 NotePROCEDURE: XR HAND MEEK MIN 3V DATE: 08/15/2022 10:19 AM CDT COMPARISONS: None CLINICAL INDICATION: Acquired deformity of right finger FINDINGS: Left hand: There is mild to moderate first carpometacarpal degenerative change. There is moderately prominent triscaphe degenerative changes. There is some degenerative changes of the metacarpal phalangeal joints diffusely most prominently involving the first and third ray. There is slight subluxation at these joint spaces. There is mild interphalangeal degenerative changes. There is diffuse bone demineralization. Right hand: There is mild first carpometacarpal degenerative change. There is moderate to severe triscaphe degenerative changes. Metacarpal phalangeal degenerative changes are noted diffusely of the right hand but are quite severe of the third ray. There is slight subluxation at these metacarpal phalangeal joints second through the fifth ray. There is evidence of mild interphalangeal degenerative changes. There is diffuse bone demineralization. IMPRESSION: Radiographs of both hands are abnormal with areas of significant degenerative change as discussed in detail above. There is no evidence of fractures or other acute osseous abnormalities.. Electronically authenticated by: DELGADO PEARSON Date: 2022-08-15 11:57[facility]04-25-2023 Evaluation note* Encounter Date Diagnosis Assessment Notes Treatment Notes Treatment Clinical Notes Jul, Medicare annual wellness visit, subsequent (ICD-10 - Z00.00) Personalized health advice was given to the beneficiary including a written plan for screenings discussed and provided. Advanced care planning reviewed and/or information given as requested. Additional counseling was provided here today in regards to, [ ]. The above visit was performed by [ ], under direct supervision of [ ]. Document reviewed and amended by provider signed below. Healthy diet and exercise. Reviewed age-appropriate preventive testing recommended. Jul, Chronic venous insufficiency (ICD-10 - I87.2) Avoid salt and elevate lower extremities, support stockings, inspect legs and feet daily for blisters and ulcerations. Jul, Nocturia (ICD-10 - R35.1) Jul, Benign p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 (ICD-10 - N40.1) Symptoms tolerable Nocturia 1-2x per night. No dysuria or hematuria. Jul, Seasonal allergic rhinitis due to pollen (ICD-10 - J30.1) Claritin and FLonase are able to control symptoms. 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 Flexion contractures forming, but able to straighten. XR Bracing? OT? 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 Flexion contractures forming, but able to straighten. XR Bracing? OT? Jul, Lumbar spondylosis (ICD-10 - M47.816) The patient is instructed to avoid bending, twisting or lifting. They are to use intermittent heat and ice as needed. They may schedule a massage or gentle manipulation. They may safely use Tylenol as needed. Jul, High risk medication use (ICD-10 - Z79.899) Jul, Fatigue, unspecified type (ICD-10 - R53.83) [employer] Other Evaluation noteNo InformationNort [employer] Other History general Narrative - Reported* Type Description Date Medical History Diarrhea Medical History Chronic venous insufficiency Medical History 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 Medical History Seasonal allergic rhinitis due t o pollen Surgical History CHOLECYSTECTOMY Surgical History APPENDECTOMY Surgical History TONSILLECTOMY Surgical History LEFT KNEE ARTHROSCOPY Hospitalization History SEE SURGICAL [employer] Other [employer] general Narrative - Reported* Type Description Date Medical History Diarrhea Medical History Chronic venous insufficiency Medical History 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 Medical History Seasonal allergic rhinitis due t o pollen Medical History Anemia Medical History Sacral Decubitus Medical History B/L heel ulcers Medical History Left Peroneal DVT Surgical History CHOLECYSTECTOMY Surgical History APPENDECTOMY Surgical History TONSILLECTOMY Surgical History LEFT KNEE ARTHROSCOPY Hospitalization History SEE SURGICAL [employer] Other [employer] [address] [employer] general Narrative - Reported* Type Description Date Medical History Diarrhea Medical History Chronic venous insufficiency Medical History 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 Medical History Seasonal allergic rhinitis due t o pollen Medical History Anemia Medical History Sacral Decubitus Medical History B/L heel ulcers Medical History Left Peroneal DVT Medical History Left Subcapital Hip Fx Surgical History CHOLECYSTECTOMY Surgical History APPENDECTOMY Surgical History TONSILLECTOMY Surgical History LEFT KNEE ARTHROSCOPY Hospitalization History SEE SURGICAL [employer] Other [employer] [employer] general Narrative - Reported* Type Description Date Medical History Diarrhea Medical History Chronic venous insufficiency Medical History 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 Medical History Seasonal allergic rhinitis due t o pollen Medical History Anemia Medical History Sacral Decubitus Medical History B/L heel ulcers Medical History Left Peroneal DVT Medical History Left Subcapital Hip Fx Surgical History CHOLECYSTECTOMY Surgical History APPENDECTOMY Surgical History TONSILLECTOMY Surgical History LEFT KNEE ARTHROSCOPY Surgical History Left Hip 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 Hospitalization History SEE SURGICAL [employer] Other history general Narrative - Reported* Type Description Date Medical History Diarrhea Medical History Chronic venous insufficiency Medical History 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 Medical History Seasonal allergic rhinitis due t o pollen Medical History Anemia Medical History Sacral Decubitus Medical History B/L heel ulcers Medical History Left Peroneal DVT Medical History Left Subcapital Hip Fx Medical History Right 8th rib Fx Surgical History CHOLECYSTECTOMY Surgical History APPENDECTOMY Surgical History TONSILLECTOMY Surgical History LEFT KNEE ARTHROSCOPY Surgical History Left Hip 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 Hospitalization History SEE SURGICAL HX [employer] Other Summary Purpose Family History No Family History Records Found Advance Directives No Advanced Directives Records Found Additional Source Comments REASON FOR VISIT (unrecogniz ed section and content) check upXray resultsLab Resu ltsTCMUpdateNo InformationDental ClearanceINTEGRIS S[facility] [place] HHUpdateNo InformationNo InformationtcmTCMD/C [facility] 02/19UpdateNo InformationAt WillowsWillowsflu shotMBS resultsSpeech Therapy (unrecognized sect ion and content) No Status Records Found INFORMATION SOURCE (unrecogn ized section and content) DATE CREATED AUTHOR 08/19/2022 [facility] FOR RECORDS PERTAINING TO PATIENTS WHO ARE OR HAVE BEEN ENROLLED IN A CHEMICAL DEPENDENCY/SUBSTANCEABUSE PROGRAM, SOME INFORMATION MAY BE OMITTED. This clinical summary was aggregated from multiple sources. Caution should be exercised in using it in the provision of clinical care. This summary normalizes information from multiple sources, and as a consequence, information in this document may materially change the coding, format and clinical context of patient data. In addition, data may be omitted in some cases. CLINICAL DECISIONS SHOULD BE BASED ON THE PRIMARY CLINICAL RECORDS. [facility] [employer] [facility]. provides no warranty or guarantee of the accuracy or completeness of information in this document.
== END 2023-02-27 13:08 | disposition home or self-care (01) ==
LOC: US 13:07
PROVIDERS: PCP Internal Medicine; Visit Provider Internal Medicine
DX: I82.451 Acute embolism and thrombosis of right peroneal vein (principal)
CPT/HCPCS: 93971

== ENCOUNTER 2023-03-01 13:35 | Outpatient (REF) | payer MEDICARE, OTHER, SELFPAY ==
[2023-03-01 14:44] LABS: Basophils Percent Auto 0.5 % (0.2-2.0); Eosinophils Absolute Auto 0.2 10^3/uL (0.0-0.7); Eosinophils Percent Auto 3.6 % (0.9-7.0); Hematocrit 37.9 % (42.0-54.0); Immature Granulocytes Abs Auto 0.01 10^3/uL (0.00-0.03); Immature Granulocytes Pct Auto 0.2 % (0.0-0.5); Lymphocytes Absolute Auto 1.6 10^3/uL (1.2-3.8); Lymphocytes Percent Auto 24.6 % (20.5-60.0); Mean Corpuscular HGB Conc 31.7 g/dL (29.9-35.2); Mean Corpuscular Hemoglobin 29.4 pg (25.9-34.0); Mean Corpuscular Volume 92.9 fL (80.0-94.0); Mean Platelet Volume 10.2 fL (9.5-13.5); Monocytes Absolute Auto 0.4 10^3/uL (0.3-0.8); Monocytes Percent Auto 5.4 % (1.7-12.0); Neutrophils Absolute Auto 4.4 10^3/uL (1.4-6.5); Neutrophils Percent Auto 65.7 % (43.0-75.0); Platelet Count 210 10^3/uL (150-450); Red Blood Count 4.08 10^6/uL (4.70-6.10); Red Cell Distribution Width 15.4 % (11.0-15.0); White Blood Count 6.6 10^3/uL (4.0-11.0)
[2023-03-01 14:59] LABS: Alanine Aminotransferase 40 U/L (16-63); Albumin Globulin Ratio 0.9; Albumin Level 3.4 g/dL (3.4-5.0); Alkaline Phosphatase 144 U/L (46-116); Anion Gap 12.5; Aspartate Amino Transferase 38 U/L (15-37); BUN Creatinine Ratio 29.1; Bilirubin Total 1.5 mg/dL (0.2-1.0); Calcium 8.6 mg/dL (8.5-10.1); Carbon Dioxide 29.6 mmol/L (21.0-32.0); Chloride 102 mmol/L (98-107); Estimated GFR (African America >60 (>=60); Estimated GFR (Non-African Ame >60 (>=60); Globulin 3.6 g/dL; Glucose 80 mg/dL (74-106); Potassium 4.1 mmol/L (3.5-5.1); Sodium 140 mmol/L (136-145); Thyroid Stimulating Hormone 2.102 uIU/mL (0.358-3.740)
== END 2023-03-01 13:36 | disposition home or self-care (01) ==
LOC: LAB 13:35
PROVIDERS: PCP Internal Medicine; Visit Provider Internal Medicine
DX: R60.0 Localized edema (principal); E44.0 Moderate protein-calorie malnutrition; S72.002D Fracture of unspecified part of neck of left femur, subsequent encounter for closed fracture with routine healing
CPT/HCPCS: 36415; 80053; 84443; 85025

== ENCOUNTER 2023-03-04 10:15 | Observation (INO) | payer MEDICARE, OTHER, SELFPAY ==
[2023-03-04] VITALS (25 sets, daily range): BP systolic 126–147; BP diastolic 57–81; PULSE 62–66; RESP 16–31; TEMP 36.3–36.6; O2SAT 83–99; BMI 28.1; BMI 27.1
--- NOTE | 2023-03-04 10:21 | XR_ITS ---
The [address] [address] Patient Name: ROSANNA SOUSA MRN: [id number] date: 1940 Sex: M Assigned Patient Location: ER Current Patient Location: ER Accession/Order Number: [id number] Exam Date: 03/04/2023 10:57 Report Date: 03/04/2023 12:01 At the request of: VERENA MARTINI Procedure: XR ribs RT min 3V w CXR1V EXAMINATION: XR ribs RT min 3V w CXR1V HISTORY: fall, pain ; right rib pain COMPARISON: No relevant comparison available. FINDINGS: LUNGS: No significant pulmonary parenchymal abnormalities. PLEURA: No pneumothorax, effusion, or pleural thickening. MEDIASTINUM: No visible mass or adenopathy. CARDIAC: No cardiomegaly or cardiac silhouette abnormality. RIBS: Slight cortical irregularity involving the anterolateral right eighth and ninth ribs. OTHER: Negative. XR/XR ribs RT min 3V w CXR1V IMPRESSION: 1. Suspect nondisplaced fractures of the anterior-lateral right eighth and ninth ribs. 2. No acute cardiopulmonary process. Electronically authenticated by: LOUIS BROOKE Date: 03/04/2023 12:01
--- NOTE | 2023-03-04 10:21 | ECG_ITS ---
The [facility] Test Date: 2023-03-04 Pat Name: ROSANNA SOUSA Department: Room: - Gender: Male [facility]: : 1940 Requested By: Flex Block Order Number: [id number] Reading MD: FLEX BLOCK Measurements Intervals [place] Rate: 60 P: -[id number] AR: 240 QRS: -46 QRSD: 158 T: 42 QT: 502 QTc: 503 Interpretive Statements Sinus rhyhthm w/ baseline artifact and first degree AV block 2450 Right bundle branch block 2630 Left anterior fascicular block 3514 Cannot rule out lateral myocardial infarction, age undetermined 5233 Voltage criteria for LVH Criteria for trifascicular block (AV, RBBB, LAFB) Electronically Signed On 03-05-2023 7:09:00 EST by FLEX BLOCK
--- NOTE | 2023-03-04 10:22 | ED.FALL1 ---
HPI - Fall General Chief Complaint: Fall Stated Complaint: FALL Time Seen by Provider: 03/04/23 10:17 Source: patient Limitations: no limitations History of Present Illness HPI Narrative: 82-year-old male presents for right rib pain. He fell about 1:00 AM in his home and he laid there until his family found him in the morning. He was brought here by paramedics. He complains of pain to the right anterior lateral rib region. He is not short of breath and has no abdominal pain. No other injuries sustained. He states he was too weak to get himself up. Related Data Home Medications Medication Instructions Recorded Confirmed apixaban 5 mg tablet (Eliquis) 5 mg PO BID 03/04/23 03/04/23 Allergies Allergy/AdvReac Type Severity Reaction Status Date / Time No Known Drug Allergies Allergy Verified 09/28/22 11:05 Review of Systems ROS Narrative A ten point review of systems is negative except as noted above. PFSH PFSH Medical History Surgical History Social History Within the past year, how often did you have a drink containing alcohol: monthly or less Smoking status: Former smoker Exam Narrative Exam Narrative: Nurses note and vital signs reviewed and patient is not hypoxic. General: The patient appears well and in no apparent distress. Patient is resting comfortably on cart. Skin: Warm, dry, no pallor noted. There is no rash noted. Head: Normocephalic, atraumatic Eye: Normal conjunctiva, no drainage Ears, Nose, Mouth, and Throat: oral mucosa is slightly dry.. Nares patent. Cardiovascular: Regular Rate and Rhythm Respiratory: Patient is in no distress, no accessory muscle use, lungs are clear to auscultation, no wheezing, rales or rhonchi; tenderness present on the right inferior anterolateral rib region. No crepitus bruise or abrasion. No tenderness in the right upper quadrant of the abdomen. Back: non-tender GI: Normal bowel sounds, no tenderness to palpation, no masses appreciated. No rebound, guarding, or rigidity noted. Musculoskeletal: The patient has no evidence of calf tenderness, no pitting edema, symmetrical pulses noted bilaterally Neurological: A&O, normal speech Psychiatric: Cooperative Constitutional Vital Signs, click to edit/add: Last Vital Signs Temp 97.8 F 03/04/23 10:18 Pulse 64 03/04/23 11:10 Resp 19 03/04/23 11:10 BP 142/81 H 03/04/23 11:10 Pulse Ox 98 03/04/23 11:10 O2 Del Method Room Air 03/04/23 10:29 Course Vital Signs Vital signs: Vital Signs Temperature 97.8 F 03/04/23 10:18 Pulse Rate 62 03/04/23 10:18 Respiratory Rate 20 03/04/23 10:18 Blood Pressure 132/79 03/04/23 10:18 Pulse Oximetry 97 03/04/23 10:18 Oxygen Delivery Method Room Air 03/04/23 10:18 Temperature 97.8 F 03/04/23 10:18 Pulse Rate 64 03/04/23 11:10 Respiratory Rate 19 03/04/23 11:10 Blood Pressure 142/81 H 03/04/23 11:10 Pulse Oximetry 98 03/04/23 11:10 Oxygen Delivery Method Room Air 03/04/23 10:29 MDM - Fall MDM Narrative Medical decision making narrative: 2 rib fractures are identified. No pneumothorax or displacement. Laboratory analysis is negative, no evidence of rhabdomyolysis. He is weak and will be admitted. Findings are discussed with the patient and his family. Differential Diagnosis Differential diagnosis: Likely syncope and other (rib fracture, pneumothorax) Lab Data Attestation: I reviewed the patient's lab results. Labs: Lab Results 03/04/23 03/04/23 Range/Units 10:42 11:25 WBC 8.9 (4.0-11.0) 10^3/uL RBC 4.45 L (4.70-6.10) 10^6/uL Hgb 13.2 L (14.0-18.0) g/dL Hct 41.6 L (42.0-54.0) % MCV 93.5 (80.0-94.0) fL MCH 29.7 (25.9-34.0) pg MCHC 31.7 (29.9-35.2) g/dL RDW 15.1 H (11.0-15.0) % Plt Count 190 (150-450) 10^3/uL MPV 9.7 (9.5-13.5) fL Neut % (Auto) 84.0 H (43.0-75.0) % Lymph % (Auto) 9.8 L (20.5-60.0) % [place] % (Auto) 4.9 (1.7-12.0) % Eos % (Auto) 0.8 L (0.9-7.0) % Baso % (Auto) 0.2 (0.2-2.0) % Neut # (Auto) 7.5 H (1.4-6.5) 10^3/uL Lymph # (Auto) 0.9 L (1.2-3.8) 10^3/uL [place] # (Auto) 0.4 (0.3-0.8) 10^3/uL Eos # (Auto) 0.1 (0.0-0.7) 10^3/uL Baso # (Auto) 0.0 (0.0-0.1) 10^3/uL Abs Immat Gran (auto) 0.03 (0.00-0.03) 10^3/uL Imm/Tot Granulo (auto) 0.3 (0.0-0.5) % Sodium 140 (136-145) mmol/L Potassium 3.9 (3.5-5.1) mmol/L Chloride 102 (98-107) mmol/L Carbon Dioxide 28.3 (21.0-32.0) mmol/L Anion Gap 13.6 BUN 21.0 H (7.0-18.0) mg/dL Creatinine 0.73 (0.70-1.30) mg/dL Est GFR ( Amer) >60 (>=60) Est GFR (Non-Af Amer) >60 (>=60) BUN/Creatinine Ratio 28.8 Glucose 122 H (74-106) mg/dL Calcium 8.9 (8.5-10.1) mg/dL Total Creatine Kinase 233 (39-308) U/L Urine Color Yellow (YELLOW) Urine Clarity Clear (CLEAR) Urine pH 5.5 (5.0-9.0) Ur Specific [place] 1.025 (1.005-1.025) Urine Protein Negative (NEG/TRACE) mg/dL Urine Glucose (UA) Negative (NEGATIVE) mg/dL Urine Ketones Trace A (NEGATIVE) mg/dL Urine Occult Blood Negative (NEGATIVE) Urine Nitrite Negative (NEGATIVE) Urine Bilirubin Negative (NEGATIVE) Urine Urobilinogen 1.0 (0.2-1.0) EU/dL Ur Leukocyte Esterase Negative (NEGATIVE) Urine RBC None seen (0-2) #/HPF Urine WBC 0-2 A (NONE SEEN) #/HPF Ur Squamous Epith Cells Rare (NONE/RARE) #/LPF Urine Crystals None seen (None Seen) #/HPF Urine Bacteria None seen (NONE SEEN) #/HPF Urine Casts None seen (NONE SEEN) #/LPF Urine Mucus Trace A (NONE SEEN) Imaging Data rib x-ray: Radiologist's impression: Procedure: XR ribs RT min 3V w CXR1V EXAMINATION: XR ribs RT min 3V w CXR1V HISTORY: fall, pain ; right rib pain COMPARISON: No relevant comparison available. FINDINGS: LUNGS: No significant pulmonary parenchymal abnormalities. PLEURA: No pneumothorax, effusion, or pleural thickening. MEDIASTINUM: No visible mass or adenopathy. CARDIAC: No cardiomegaly or cardiac silhouette abnormality. RIBS: Slight cortical irregularity involving the anterolateral right eighth and ninth ribs. OTHER: Negative. IMPRESSION: 1. Suspect nondisplaced fractures of the anterior-lateral right eighth and ninth ribs. 2. No acute cardiopulmonary process. Electronically authenticated by: LUOIS BROOKE Date: 03/04/2023 12:01 ECG Data Attestation: I personally reviewed and interpreted this ECG as follows: (EKG on my interpretation shows a great deal of artifact, uncertain rhythm) Discharge Plan Discharge Chief Complaint: Fall Clinical Impression: Closed rib fracture Patient Disposition: Admitted as Observation Time of Disposition Decision: 12:09 Condition: Good
[2023-03-04] MEDS: 0.9 % SODIUM CHLORIDE 1,000 ML 100 ML IV (10:38)
[2023-03-04 10:53] LABS: Basophils Percent Auto 0.2 % (0.2-2.0); Eosinophils Absolute Auto 0.1 10^3/uL (0.0-0.7); Eosinophils Percent Auto 0.8 % (0.9-7.0); Hematocrit 41.6 % (42.0-54.0); Hemoglobin 13.2 g/dL (14.0-18.0); Immature Granulocytes Abs Auto 0.03 10^3/uL (0.00-0.03); Immature Granulocytes Pct Auto 0.3 % (0.0-0.5); Lymphocytes Absolute Auto 0.9 10^3/uL (1.2-3.8); Lymphocytes Percent Auto 9.8 % (20.5-60.0); Mean Corpuscular HGB Conc 31.7 g/dL (29.9-35.2); Mean Corpuscular Hemoglobin 29.7 pg (25.9-34.0); Mean Corpuscular Volume 93.5 fL (80.0-94.0); Mean Platelet Volume 9.7 fL (9.5-13.5); Monocytes Absolute Auto 0.4 10^3/uL (0.3-0.8); Monocytes Percent Auto 4.9 % (1.7-12.0); Neutrophils Absolute Auto 7.5 10^3/uL (1.4-6.5); Platelet Count 190 10^3/uL (150-450); Red Blood Count 4.45 10^6/uL (4.70-6.10); Red Cell Distribution Width 15.1 % (11.0-15.0); White Blood Count 8.9 10^3/uL (4.0-11.0)
[2023-03-04 11:02] LABS: Anion Gap 13.6; BUN Creatinine Ratio 28.8; Calcium 8.9 mg/dL (8.5-10.1); Carbon Dioxide 28.3 mmol/L (21.0-32.0); Chloride 102 mmol/L (98-107); Estimated GFR (African America >60 (>=60); Estimated GFR (Non-African Ame >60 (>=60); Glucose 122 mg/dL (74-106); Potassium 3.9 mmol/L (3.5-5.1); Sodium 140 mmol/L (136-145)
[2023-03-04 11:22] LABS: Creatine Kinase 233 U/L (39-308)
[2023-03-04 11:40] LABS: Bilirubin Urine NEGATIVE (NEGATIVE); Blood Urine NEGATIVE (NEGATIVE); Clarity Urine CLEAR (CLEAR); Color Urine YELLOW (YELLOW); Glucose Urine UA NEGATIVE (NEGATIVE); Ketones Urine TRACE mg/dL (NEGATIVE); Leukocyte Esterase Urine NEGATIVE (NEGATIVE); Nitrite Urine NEGATIVE (NEGATIVE); Protein Urine NEGATIVE (NEG/TRACE); Specific Gravity Urine 1.025 (1.005-1.025); pH Urine 5.5 (5.0-9.0)
[2023-03-04 11:48] LABS: Bacteria Urine NONE SEEN #/HPF (NONE SEEN); Cast Seen? NONE SEEN #/LPF (NONE SEEN); Crystals Seen? None Seen #/HPF (None Seen); Mucus Urine TRACE (NONE SEEN); RBC Urine NONE SEEN #/HPF (0-2); Squamous Epithelial Cell Urine RARE #/LPF (NONE/RARE); WBC Urine 0-2 #/HPF (NONE SEEN)
[2023-03-04] MEDS: ACETAMINOPHEN 325 MG TABLET 650 MG PO ×2 (12:23→18:49)
--- NOTE | 2023-03-04 13:12 | P.HP_ITS ---
patient also seen and evaluated by me. I have reviewed all labs, radiology studies and chart. I agree with the above findings. H&P: HPI History of Present Illness Chief complaint: FALL/Rib pain Narrative: Date/time of exam: 03/04/23 1230 This is an 82-year-old male patient with a past medical history as outlined below including DJD, DVT on Eliquis, frequent falls with recent hip fracture December 2022 and subsequent hemiarthroplasty; who presented to the ED via EMS this morning after being found at home on the floor by his family after falling during the night. The patient reports he was ambulating with his walker to the bathroom around 1 AM. He was trying to maneuver the door closed around his walker and lost his balance and fell. He struck his right chest wall on something, but is not quite sure what. He denies striking his head or LOC. Denies any prodromal symptoms including no dizziness, headache, chest pain, shortness of breath. He was too weak to get himself up off the floor and remained on the bathroom floor until his family found him midmorning. Work-up in the ED was essentially benign but a rib x-ray did note anterolateral nondisplaced rib fractures of the eighth and ninth ribs. The patient is being admitted to observation to the hospitalist service for generalized weakness, frequent falls, and pain control for his acute rib fractures. At the time of my exam the patient is resting comfortably on ED cart. He does continue to complain of tenderness of the right chest wall but no bruising is noted. He has full recall of the events leading to his fall and is completely alert and oriented. He will be evaluated by physical therapy and Occupational Therapy and we will attempt adequate pain control. Discharge likely in the next 24 to 48 hours either to SNF for further rehab strengthening or home with home health services. Review of Systems ROS Status of ROS 10 or more systems reviewed and unremarkable except as noted in history and below [facility] Medical History (Updated 03/04/23 @ 13:45 by Grisel Wilkes NP) Abrasion of scalp ?S00.01XA - Abrasion of scalp, initial encounter (ICD-10) Decubitus ulcer of ankle, stage 2 ?L89.502 - Pressure ulcer of unspecified ankle, stage 2 (ICD-10) DVT (deep venous thrombosis) ?I82.409 - Acute embolism and thrombosis of unspecified deep veins of unspecified lower extremity (ICD-10) Elevated bilirubin ?R17 - Unspecified jaundice (ICD-10) Head injury ?S09.90XA - Unspecified injury of head, initial encounter (ICD-10) Low back pain ?M54.50 - Low back pain, unspecified (ICD-10) Old lacunar stroke without late effect ?Z86.73 - Personal history of transient ischemic attack (TIA), and cerebral infarction without residual deficits (ICD-10) Peripheral edema ?R60.9 - Edema, unspecified (ICD-10) Stage II pressure ulcer ?L89.92 - Pressure ulcer of unspecified site, stage 2 (ICD-10) Surgical History History of knee replacement ?Z96.659 - Presence of unspecified artificial knee joint (ICD-10) Social History Within the past year, how often did you have a drink containing alcohol: monthl y or less Smoking status: Former smoker Meds Home Medications and Allergies Home Medications Medication Instructions Recorded Confirmed Type apixaban 5 mg tablet (Eliquis) 5 mg PO BID 03/04/23 03/04/23 History Allergies Allergy/AdvReac Type Severity Reaction Status Date / Time No Known Drug Allergies Allergy Verified 09/28/22 11:05 Exam Constitutional Vital Signs, click to edit/add: Last Vital Signs Temp 97.8 F 03/04/23 10:18 Pulse 65 03/04/23 13:01 Resp 18 03/04/23 13:01 BP 138/61 03/04/23 13:01 Pulse Ox 98 03/04/23 13:01 O2 Del Method Room Air 03/04/23 10:29 Common normals: no apparent distress, oriented x3, alert and well nourished General appearance: cooperative Orientation/consciousness: Yes awake HENOH Common normals: normocephalic, head/scalp atraumatic, hearing grossly normal bilaterally, external nose normal and moist oral mucous membranes Face and sinus: normal facial exam Nose: external nose normal Eye Common normals: PERRL, EOMs intact bilaterally, conjunctivae normal and no scleral icterus Alignment: alignment normal Eyelid: eyelids normal Chest Common normals: inspection of chest normal Chest: symmetrical chest wall rise Respiratory Common normals: normal respiratory effort, no retractions, no use of accessory muscles and clear to auscultation bilaterally Effort & inspection: able to speak in complete sentences Cardio Common normals: no JVD, regular rate, regular rhythm, S1 normal heart sound, S2 normal heart sound, no clicks, no murmurs, no rub and peripheral pulses 2+ throughout Heart sounds: gallop S3 gallop GI Common normals: Normal to inspection, nondistended, normoactive bowel sounds present, soft to palpation, non-tender, no hepatosplenomegaly, no masses and no bruits Bladder/kidney exam: bladder normal to palpation Back & Pelvis Common normals: thoracic and lumbar spine normal to inspection Extremity Common normals: normal capillary refill General: normal exam except as noted, deformity (Bilat hands d/t DJD) and edema (bilat insteps, tr-2+ (greatest on L)); no clubbing and no cyanosis Other: Very dry skin Neuro C[place] Coma Scale: GCS not evaluated Common normals: CN's II-XII intact bilaterally, moves all extremities, no focal motor deficits and no sensory deficits noted Speech: speech normal Motor exam: strength 5/5 throughout Psych Common normals: mental status grossly normal, thought process normal, affect normal and activity/motor behavior normal Results Labs Labs: Short CBC 03/04/23 Range/Units 10:42 WBC 8.9 (4.0-11.0) 10^3/uL Hgb 13.2 L (14.0-18.0) g/dL Hct 41.6 L (42.0-54.0) % Plt Count 190 (150-450) 10^3/uL BMP 03/04/23 10:42 Sodium 140 Potassium 3.9 Chloride 102 Carbon Dioxide 28.3 BUN 21.0 H Creatinine 0.73 Glucose 122 H Calcium 8.9 Cardiac Enzymes 03/04/23 Range/Units 10:42 Total Creatine Kinase 233 (39-308) U/L Urine 03/04/23 Range/Units 11:25 Urine Color Yellow (YELLOW) Urine Clarity Clear (CLEAR) Urine pH 5.5 (5.0-9.0) Ur Specific [place] 1.025 (1.005-1.025) Urine Protein Negative (NEG/TRACE) mg/dL Urine Glucose (UA) Negative (NEGATIVE) mg/dL Pulse Oximetry Attestation: I have reviewed the pertinent pulse oximetry results. Imaging Rib XR: Attestation: I have reviewed the pertinent imaging results. Radiologist's impression: IMPRESSION: 1. Suspect nondisplaced fractures of the anterior-lateral right eighth and ninth ribs. 2. No acute cardiopulmonary process. Assessment and Plan Assessment and Plan (1) Closed rib fracture: Assessment and Plan: ACUTE * Adm observation * Tylenol or Tramadol for pain * CBC in AM to monitor for anemia (2) Frequent falls: Assessment and Plan: ACUTE ON CHRONIC * w/ ambulatory dysfunction * PT/OT consults for eval and treat * Continue eliquis for now as pt did not strike his head and has no bruising. 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 Monitor (5) Peripheral edema: Assessment and Plan: CHRONIC * Home furosemide recently discontinued by PCP * Pt reports BLE swelling currently better than baseline * Skin appears dry * Lac Hydrin BID to moisturize * Monitor daily weight and I&O - low threshold to resume low dose lasix pending clinical course
--- NOTE | 2023-03-04 14:02 | CM.NOTE ---
Pt is OBS from ER d/t fall at home, spoke with pt and family per family request and DIRECTOR OF CUSTOMER SERVICE. Pt's family concerned with pt's return back to home d/t weakness and fall. Pt does not meet for inpatient stay at this time. Pt is active with [facility]. Discussed with family regarding out of pocket expense d/t not meeting 3 day inpatient stay for accuity. Family and pt both verbalize understanding and inquire about cost of inpt stay, called [facility] for cost. PT will consult on pt also and Case Management will follow recommendations.
--- NOTE | 2023-03-04 14:48 | CM.NOTE ---
Talked with pt regarding out of pocket cost to go back to [facility], pt wishes for me to call and speak with Kavya or Jr. Spoke with Kavya and Jr (children) about daily cost to go back to [facility]. Both verbalize understanding and will talk to family and pt for discharge planning.
--- NOTE | 2023-03-04 15:16 | CM.NOTE ---
Kavya called back and would like to inquire about cost for [facility]. Information sent to [facility] and they will call back with information for family.
--- NOTE | 2023-03-04 20:32 | PC.NURSE ---
pt. voided, mixed with small amount of loose stool
--- NOTE | 2023-03-04 20:53 | PC.NURSE ---
BM smear of small amount
[2023-03-04] MEDS: APIXABAN 5 MG TABLET PO (23:02)
[2023-03-05 05:42] VITALS: BP 130/65; PULSE 65; RESP 18; TEMP 36.5; O2SAT 91
[2023-03-05 05:43] LABS: Basophils Percent Auto 0.4 % (0.2-2.0); Eosinophils Absolute Auto 0.2 10^3/uL (0.0-0.7); Eosinophils Percent Auto 3.1 % (0.9-7.0); Hematocrit 34.9 % (42.0-54.0); Immature Granulocytes Abs Auto 0.01 10^3/uL (0.00-0.03); Immature Granulocytes Pct Auto 0.2 % (0.0-0.5); Lymphocytes Absolute Auto 1.1 10^3/uL (1.2-3.8); Lymphocytes Percent Auto 21.6 % (20.5-60.0); Mean Corpuscular HGB Conc 31.5 g/dL (29.9-35.2); Mean Corpuscular Hemoglobin 29.3 pg (25.9-34.0); Mean Corpuscular Volume 92.8 fL (80.0-94.0); Mean Platelet Volume 10.1 fL (9.5-13.5); Monocytes Absolute Auto 0.3 10^3/uL (0.3-0.8); Monocytes Percent Auto 5.2 % (1.7-12.0); Neutrophils Absolute Auto 3.6 10^3/uL (1.4-6.5); Neutrophils Percent Auto 69.5 % (43.0-75.0); Platelet Count 177 10^3/uL (150-450); Red Blood Count 3.76 10^6/uL (4.70-6.10); Red Cell Distribution Width 15.4 % (11.0-15.0); White Blood Count 5.2 10^3/uL (4.0-11.0)
[2023-03-05] MEDS: ACETAMINOPHEN 325 MG TABLET 650 MG PO (05:50)
[2023-03-05 06:17] LABS: Alanine Aminotransferase 31 U/L (16-63); Albumin Globulin Ratio 0.8; Albumin Level 2.7 g/dL (3.4-5.0); Alkaline Phosphatase 111 U/L (46-116); Anion Gap 9.7; Aspartate Amino Transferase 32 U/L (15-37); BUN Creatinine Ratio 25.7; Bilirubin Total 1.2 mg/dL (0.2-1.0); Calcium 8.6 mg/dL (8.5-10.1); Carbon Dioxide 27.8 mmol/L (21.0-32.0); Chloride 103 mmol/L (98-107); Estimated GFR (African America >60 (>=60); Estimated GFR (Non-African Ame >60 (>=60); Globulin 3.6 g/dL; Glucose 86 mg/dL (74-106); Potassium 3.5 mmol/L (3.5-5.1); Sodium 137 mmol/L (136-145); Total Protein 6.3 g/dL (6.4-8.2)
--- NOTE | 2023-03-05 08:45 | REH.PTEVOP ---
Physical Therapy initial evaluation documentation is located in the Nursing tab at 03/04/23 at 13:32
[2023-03-05] MEDS: APIXABAN 5 MG TABLET PO (09:21)
--- NOTE | 2023-03-05 10:27 | CM.NOTE ---
Rounds made with Dr. Birch, awaiting to hear back from [facility] to determine discharge location.
--- NOTE | 2023-03-05 10:36 | CM.NOTE ---
[facility] called back, family are going over for a tour and financial breakdown. Family will decide after meeting with [facility] pt's discharge plan.
--- NOTE | 2023-03-05 11:34 | CM.NOTE ---
Medicare Outpatient Observation Notice discussed with pt, pt verbalizes understanding and signs paper. Original given to pt and copy placed on pt's chart.
--- NOTE | 2023-03-05 11:45 | CM.NOTE ---
Family are back from meeting at the [facility] with [facility], pt is going into Assisted Living at the [facility]. Pt will discharge today and family will transport pt around 4:30. ADRIANA Recinos will put in discharge summary.
--- NOTE | 2023-03-05 12:13 | CM.NOTE ---
Called [facility] to let them know pt and family are going to [place] at discharge.
--- NOTE | 2023-03-05 13:06 | P.DS_ITS ---
patient was also seen and evaluated at the time of discharge by me. I agree with the above findings. Discharge to Assisted living today. DS: Providers Provider Date of admission: 03/04/23 13:15 Primary care physician: Flex Isaacs DO Consults: 03/04/23 13:01 Occupational Therapy Eval and Treat Routine Reason for consultation: Weakness, frequent falls Has provider been notified: No Physical Therapy Eval and Treat Routine Reason for consultation: Weakness, frequent falls Has provider been notified: No Discharging clinician: Grisel Wilkes DS: Diagnosis Discharge Diagnosis (1) Closed rib fracture: (2) Frequent falls: (3) Generalized weakness: (4) DVT (deep venous thrombosis): (5) Peripheral edema: DS: Summary Hospital Course Hospital Course: The patient was admitted to observation with generalized weakness, falls and subsequent rib fractures on the right. His pain was adequately managed with p.o. preparations. The patient had been living independently and felt like he was not safe to return home. After discussion with discharge planning and the patient's family members he decided to go to an assisted living facility where further PT rehab strengthening will be available. He is being discharged to the assisted living facility in stable condition. He should follow-up with his PCP in 5 to 7 days. He has been prescribed pain medication should he need it for his rib fractures. Continued physical therapy is recommended. Status at Discharge Functional status at discharge: uses cane/walker Overall status at discharge: patient is progressing back to baseline Time Spent with Patient Time attestation: Total time spent providing and/or coordinating discharge services: Time spent: less than 30 minutes Specific discharge activities: Physical exam, discussion of discharge plan, questions answered. Exam Constitutional Vital Signs, click to edit/add: Last Vital Signs Temp 97.7 F 03/05/23 05:42 Pulse 65 03/05/23 05:42 Resp 18 03/05/23 05:42 BP 130/65 03/05/23 05:42 Pulse Ox 91 L 03/05/23 05:42 O2 Del Method Room Air 03/05/23 05:42 Common normals: no apparent distress, oriented x3 and alert General appearance: cooperative Orientation/consciousness: Yes awake HENMT Common normals: normocephalic and head/scalp atraumatic Head and scalp: normocephalic and atraumatic Eye Common normals: PERRL, EOMs intact bilaterally, conjunctivae normal and no scleral icterus Neck & C-Spine Common normals: no JVD Chest Common normals: inspection of chest normal (No bruising in area around rib fractures, lateral R chest wall) and palpation of chest normal Respiratory Common normals: normal respiratory effort, no use of accessory muscles and clear to auscultation bilaterally Effort & inspection: able to speak in complete sentences and symmetric chest movement Cardio Common normals: no JVD, regular rate, regular rhythm, S1 normal heart sound, S2 normal heart sound, no murmurs and peripheral pulses 2+ throughout GI Common normals: Normal to inspection, nondistended, normoactive bowel sounds present, soft to palpation and non-tender Bladder/kidney exam: bladder normal to palpation Extremity Common normals: normal to inspection, full ROM, normal capillary refill and no pedal edema General: no clubbing and no cyanosis Neuro Common normals: moves all extremities, no focal motor deficits and no sensory deficits noted Speech: speech normal Psych Common normals: mental status grossly normal and activity/motor behavior normal DS: Data Data Completed and Pending Labs on day of discharge: Labs from last 24 hours 03/05/23 04:49 WBC 5.2 RBC 3.76 L Hgb 11.0 L Hct 34.9 L MCV 92.8 MCH 29.3 MCHC 31.5 RDW 15.4 H Plt Count 177 MPV 10.1 Neut % (Auto) 69.5 Lymph % (Auto) 21.6 [place] % (Auto) 5.2 Eos % (Auto) 3.1 Baso % (Auto) 0.4 Neut # (Auto) 3.6 Lymph # (Auto) 1.1 L [place] # (Auto) 0.3 Eos # (Auto) 0.2 Baso # (Auto) 0.0 Abs Immat Gran (auto) 0.01 Imm/Tot Granulo (auto) 0.2 Sodium 137 Potassium 3.5 Chloride 103 Carbon Dioxide 27.8 Anion Gap 9.7 BUN 18.0 Creatinine 0.70 Est GFR ( Amer) >60 Est GFR (Non-Af Amer) >60 BUN/Creatinine Ratio 25.7 Glucose 86 Calcium 8.6 Total Bilirubin 1.2 H AST 32 ALT 31 Alkaline Phosphatase 111 Total Protein 6.3 L Albumin 2.7 L Globulin 3.6 Albumin/Globulin Ratio 0.8 Imaging Rib XR: Radiologist's impression: IMPRESSION: 1. Suspect nondisplaced fractures of the anterior-lateral right eighth and ninth ribs. 2. No acute cardiopulmonary process. Discharge Plan Discharge Disposition: Home, Self-Care Condition: Good Discharge Medications: New acetaminophen 325 mg Tablet 650 mg PO Q6H PRN (Reason: Moderate pain) Qty: 90 0RF tramadol 50 mg Tablet 50 mg PO Q6H PRN (Reason: pain (scale score 4-6)) Qty: 20 0RF tramadol 50 mg Tablet 100 mg PO Q6H PRN (Reason: pain (scale score 7-10)) Qty: 20 0RF Continued Eliquis 5 mg tablet 5 mg PO BID furosemide [Lasix] 20 mg tablet 20 mg PO .COMPLEX Rx Instructions: 20 mg orally Every other day; Activity: ambulate only with your walker and as per physical therapy Diet: advance to your usual diet Forms: Portal Instructions Follow Up Appointments: - Follow up with your PCP in 5-7 days
--- NOTE | 2023-03-05 13:37 | CM.NOTE ---
Faxed discharge summary and medication list to [facility].
--- OUTSIDE RECORDS SUMMARY | 2023-04-09 19:18 | XMS_ITS | CCD ---
Author Name Unknown Address [address] [place] [address] Organization [facility] Care Team Providers Care Karate Black Belt Name Role Phone Flex Block Unavailable DR FLEX BLOCK Admitting Unavailable UMAIR, DR MENDEZ Primary Care Unavailable DR FLEX BLOCK Consulting Unavailable DR FLEX BLOCK Attending Unavailable Delgado Pearson Consulting Unavailable Kamilla Vieira Unavailable [phone] Allergies Allergy Classification Reported Allergen(s) Allergy Type Date of Onset Reaction(s) Facility (8 sources) patient allergy list reviewed by nurse or physicia Propensity to adverse reactions 5 Comment:Done Recommend Other Medications Current Medications Medication Drug Class(es) [...] 3 Episodic Other aftercare (2 sources) Other fci (current) drug therapy; Translations: [OTH RUBBER AND POUNDER CURRENT DRUG THERAPY] Onset: 3 Episodic Other [...] 08-15-2022 BASO # 0.0 103/ul Normal 0.0-0.1 [facility] Comment on above: Performed By: #### C BC #### [facility] [address] [place] [address] Dr. Emily Lauren Basophils/100 WBC (Bld) 0.3 % Normal 0.2-2.0 [facility] Comment on above: Performed By: #### C BC #### [facility] [address] [place] [address] Dr. Emily Lauren EO # 0.2 103/ul Normal 0.0-0.7 [facility] Comment on above: Performed By: #### C BC #### [facility] [address] [place] [address] Dr. Emily Lauren Eosinophils/100 WBC (Bld) 3.1 % Normal 0.9-7.0 [facility] Comment on above: Performed By: #### C BC #### [facility] [address] [place] [address] Dr. Emily Lauren Erythrocyte distribution wid th (RBC) [Ratio] 14.9 % Normal 11.0-15.0 [facility] Comment on above: Performed By: #### C BC #### [facility] [address] [place] [address] Dr. Emily Lauren Hematocrit (Bld) [Volume fraction] 39.9 % Critically low 42.0-54.0 [facility] Comment on above: Performed By: #### C BC #### [facility] [address] [place] [address] Dr. Emily Lauren Hemoglobin (Bld) [Mass/Vol] 12.9 g/dL Critically low 14.0 -18.0 [facility] Comment on above: Performed By: #### C BC #### [facility] [address] [place] [address] Dr. Emily Lauren IG # 0.02 10e3/ul Normal 0.00-0.03 [facility] Comment on above: Performed By: #### C BC #### [facility] [address] [place] [address] Dr. Emily Lauren IG % 0.3 % Normal 0.0-0.5 [facility] Comment on above: Performed By: #### C BC #### [facility] [address] [place] [address] Dr. Emily Lauren LYMPH # 2.4 103/ul Normal 1.2-3.8 [facility] Comment on above: Performed By: #### C BC #### [facility] [address] [place] [address] Dr. Emily Lauren Lymphocytes/100 WBC (Bld) 30.7 % Normal 20.5-60.0 [facility] Comment on above: Performed By: #### C BC #### [facility] [address] [place] [address] Dr. Emily Lauren MANUAL DIFF REQ NO Normal [facility] Comment on above: Performed By: #### C BC #### [facility] [address] [place] [address] Dr. Emily Lauren MCH (RBC) [Entitic mass] 30.4 pg Normal 25.9-34.0 [facility] Comment on above: Performed By: #### C BC #### [facility] [address] [place] [address] Dr. Emily Lauren MCHC (RBC) [Mass/Vol] 32.3 g/dL Normal 29.9-35.2 [facility] Comment on above: Performed By: #### C BC #### [facility] [address] [place] [address] Dr. Emily Lauren MCV (RBC) [Entitic vol] 94.1 fL Critically high 80.0-[address] [facility] Comment on above: Performed By: #### C BC #### [facility] [address] [place] [address] Dr. Emily Lauren MONO # 0.5 103/ul Normal 0.3-0.8 [facility] Comment on above: Performed By: #### C BC #### [facility] [address] [place] [address] Dr. Emily Laruen Monocytes/100 WBC (Bld) 5.9 % Normal 1.7-12.0 [facility] Comment on above: Performed By: #### C BC #### [facility] [address] [place] [address] Dr. Emily Lauren NEUT # 4.6 103/ul Normal 1.4-6.5 [facility] Comment on above: Performed By: #### C BC #### [facility] [address] [place] [address] Dr. Emily Lauren Neutrophils/100 WBC (Bld) 59.7 % Normal 43.0-75.0 [facility] Comment on above: Performed By: #### C BC #### [facility] [address] [place] [address] Dr. Emily Lauren Platelet mean volume (Bld) [Entitic vol] 9.7 fL Normal 9.5-13.5 [facility] Comment on above: Performed By: #### C BC #### [facility] [address] [place] [address] Dr. Emily Lauren PLT 176 103/ul Normal 150-450 [facility] Comment on above: Performed By: #### C BC #### [facility] [address] [place], [place] [id number] Dr. Emily Lauren RBC 4.24 106/ul Critically low 4.70-6.10 [facility] Comment on above: Performed By: #### C BC #### [facility] [address] [place] [address] Dr. Emily Lauren WBC 7.7 103/ul Normal 4.0-11.0 [facility] Comment on above: Performed By: #### C BC #### [facility] [address] [place] [address] Dr. Emily Lauren PROF 14(COMP METB)on 023 Albumin [Mass/Vol] 3.4 g/dL Normal 3.4-5.0 [facility] Comment on above: Performed By: #### C MP #### [facility] [address] [place] [address] Dr. Emily Lauren Albumin/Globulin [Mass ratio] 0.8 {ratio} Normal [facility] Comment on above: Performed By: #### C MP #### [facility] [address] [place] [address] Dr. Emily aLuren ALP [Catalytic activity/Vol] 81 U/L Normal 46-116 [facility] Comment on above: Performed By: #### C MP #### [facility] [address] [place] [address] Dr. Emily Lauren ALT [Catalytic activity/Vol] 44 U/L Normal 16-63 [facility] Comment on above: Performed By: #### C MP #### [facility] [address] [place] [address] Dr. Emily Lauren Anion gap [Moles/Vol] 11.3 mmol/L Normal [facility] Comment on above: Performed By: #### C MP #### [facility] [address] [place] [address] Dr. Emily Lauren AST [Catalytic activity/Vol] 41 U/L Critically high 15 -37 [facility] Comment on above: Performed By: #### C MP #### [facility] [address] [place] [address] Dr. Emily Lauren Bilirubin [Mass/Vol] 1.4 mg/dL Critically high 0.2-1.0 [facility] Comment on above: Performed By: #### C MP #### [facility] [address] [place] [address] Dr. Emily Lauren Calcium [Mass/Vol] 9.2 mg/dL Normal 8.5-10.1 [facility] Comment on above: Performed By: #### C MP #### [facility] [address] [address] [address] Emily Lauren Chloride [Moles/Vol] 106 mmol/L Normal 98-107 [facility] Comment on above: Performed By: #### C MP #### [facility] [address] [address] [address] Emily Lauren CO2 [Moles/Vol] 29.8 mmol/L Normal 21.0-32.0 [facility] Comment on above: Performed By: #### C MP #### [facility] [address] [address] [address] Emily Lauren Creatinine [Mass/Vol] 0.83 mg/dL Normal 0.70-1.30 [facility] Comment on above: Performed By: #### C MP #### [facility] [address] [address] [address] Emily Lauren EGFR-AF TAJIK >60 Normal >=60 [facility] Comment on above: Performed By: #### C MP #### [facility] [address] [place] [address] Dr. Emily Lauren EGFR-NON AF TAJIK >60 Normal >=60 [facility] Comment on above: Performed By: #### C MP #### [facility] [address] [address] [address] Emily Lauren Globulin (S) [Mass/Vol] 4.2 g/dL Normal [facility] Comment on above: Performed By: #### C MP #### [facility] [address] [address] [address] Emily Lauren Glucose [Mass/Vol] 80 mg/dL Normal 74-106 [facility] Comment on above: Performed By: #### C MP #### [facility] [address] [address] [address] Emily Lauren Potassium [Moles/Vol] 4.1 mmol/L Normal 3.5-5.1 [facility] Comment on above: Performed By: #### C MP #### [facility] [address] [address] [address] Emily Lauren Protein [Mass/Vol] 7.6 g/dL Normal 6.4-8.2 [facility] Comment on above: Performed By: #### C MP #### [facility] [address] [address] [address] Emily Lauren Sodium [Moles/Vol] 143 mmol/L Normal 136-145 [facility] Comment on above: Performed By: #### C MP #### [facility] [address] [address] [address] Emily Lauren Urea nitrogen [Mass/Vol] 26.0 mg/dL Critically high 7.0-[address] [facility] Comment on above: Performed By: #### C MP #### [facility] [address] [address] [address] Emily Lauren Urea nitrogen/Creatinine [Mass ratio] 31.3 mg/mg Normal [facility] Comment on above: Performed By: #### C MP #### [facility] [address] [address] [address] Emily Lauren Vital Signs Date Time Vital Sign Value Performing Clinician Facility 02-22-2023 13:30-0400 Body height 175.26 cm Flex Block Other Recommend Other 02-22-2023 13:30-0400 Body mass index (BMI) [Ratio] 27.82 kg/m2 Flex Block Other Recommend Other 02-22-2023 13:30-0400 Body weight 85.46 kg Flex Block Other Recommend Other 02-22-2023 13:30-0400 Diastolic blood pressure 70 mm[Hg] Flex Block Other Recommend Other 02-22-2023 13:30-0400 Respiratory rate 12 /min Flex Block Other Recommend Other 02-22-2023 13:30-0400 Systolic blood pressure 109 mm[Hg] Flex Ball Other Recommend Other 08-14-2022 12:00-0400 Body height 175.26 cm Flex Ball Other Recommend Other 08-14-2022 12:00-0400 Body mass index (BMI) [Ratio] 28.29 kg/m2 Flex Ball Other Recommend Other 08-14-2022 12:00-0400 Body weight 86.91 kg Flex Ball Other Recommend Other 08-14-2022 12:00-0400 Diastolic blood pressure 80 mm[Hg] Flex Ball Other Recommend Other 08-14-2022 12:00-0400 Respiratory rate 20 /min Flex Ball Other Recommend Other 08-14-2022 12:00-0400 Systolic blood pressure 126 mm[Hg] Flex Ball Other Recommend Other Encounters Encounter Date Encounter Type Care Provider Facility Start: 04-05-2023 End: 04-05-2023 ambulatory Flex Umair Other Recommend Other Start: 04-05-2023 Telephone encounter Flex Ball [facility] Start: 03-19-2023 End: 03-19-2023 ambulatory Flex Ball Other Recommend Other Start: 03-19-2023 Telephone encounter Flex Ball [facility] Start: 03-07-2023 End: 03-07-2023 ambulatory Flex Ball Other Recommend Other Start: 03-07-2023 Home visit est pt mod-hi severity 40 minutes Flex Block [facility] Start: 03-06-2023 End: 03-06-2023 ambulatory Flex Block Other Recommend Other Start: 03-06-2023 Telephone encounter Flex Block [facility] Start: 03-05-2023 End: 03-05-2023 ambulatory Flex Block Other Recommend Other Start: 03-05-2023 Telephone encounter Flex Block [facility] Start: 02-28-2023 End: 02-28-2023 ambulatory Kamilla Vieira Other Recommend Other Start: 02-28-2023 Nursing evaluation o f patient and report Kamilla Vieira [facility] Start: 02-22-2023 End: 02-22-2023 ambulatory Flex Block Other Recommend Other Start: 02-22-2023 Transitional care manage srvc 14 day discharge Flex Block [facility] Start: 02-20-2023 End: 02-20-2023 ambulatory Flex Block Other Recommend Other Start: 02-20-2023 Telephone encounter Flex Block [facility] Start: 02-11-2023 End: 02-11-2023 ambulatory Flex Block Other Recommend Other Start: 02-11-2023 Telephone encounter Flex Block [facility] Start: 01-03-2023 End: 01-03-2023 ambulatory Flex Block Other Recommend Other Start: 01-03-2023 Telephone encounter Flex Block [facility] Start: 01-02-2023 End: 01-02-2023 ambulatory Flex Block Other Recommend Other Start: 01-02-2023 Telephone encounter Flex Block [facility] Start: 01-01-2023 End: 01-01-2023 ambulatory Flex Block Other Recommend Other Start: 01-01-2023 Telephone encounter Flex Block [facility] Start: 12-31-2022 End: 12-31-2022 ambulatory Flex Block Other Recommend Other Start: 12-31-2022 Telephone encounter Flex Block [facility] Start: 12-10-2022 End: 12-10-2022 ambulatory Flex Block Other Recommend Other Start: 12-10-2022 Telephone encounter Flex Block [facility] Start: 12-09-2022 End: 12-09-2022 ambulatory Flex Block Other Recommend Other Start: 12-09-2022 Telephone encounter Flex Block [facility] Start: 10-04-2022 End: 10-04-2022 ambulatory Flex Block Other Recommend Other Start: 10-04-2022 Telephone encounter Flex Block [facility] Start: 08-16-2022 End: 08-16-2022 ambulatory Flex Block Other Recommend Other Start: 08-16-2022 Telephone encounter Flex Block [facility] Start: 08-15-2022 Telephone encounter Flex Block [facility] Start: 08-15-2022 End: 08-16-[address] FLEX BLOCK Recommend Other Start: 08-14-2022 End: 08-14-2022 ambulatory Flex Block Other Recommend Other Start: 08-14-2022 Patient encounter procedure Flex Block [facility] Start: 05-20-2019 Adult health examination Flex Block Other Recommend Other Procedures Date Procedure Procedure Detail Performing Clinician Start: 07-03-2017 Diabetes mellitus screening Flex Block Other Start: 11-15-2015 Screening for malign ant neoplasm of colon Flex Block Other Screening for malign ant neoplasm of prostate Flex Block Other Immunizations Immunization Date Immunization Notes Care Provider Fa gisela 02-28-2023 influenza, high dose seasonal, preservative-free Flex Block Other Recommend Other 04-11-2022 influenza, injectabl e, quadrivalent, preservative free Flex Block Other Recommend Other 02-23-2021 COVID-19 Vaccine Moderna - Documentation Purposes Only Flex Block Other Recommend Other 06-17-2020 COVID-19 Vaccine Moderna - Documentation Purposes Only Flex Block Other Recommend Other 05-20-2020 COVID-19 Vaccine Moderna - Documentation Purposes Only Flex Block Other Recommend Other 07-03-2017 pneumococcal conjuga te vaccine, 13 valent Flex Block Other Recommend Other 07-03-2017 pneumococcal Conjuga te, unspecified formulation; Translations: [Need for prophylactic vaccination against Streptococcus pneumoniae (pneumococcus)] Flex Block Other Recommend Other 03-07-2017 influenza virus vaccine, split virus (incl. purified surface antigen) Flex Block Other Recommend Other 03-28-2016 influenza virus vaccine, split virus (incl. purified surface antigen) Flex Block Other Recommend Other 03-08-2015 influenza virus vaccine, split virus (incl. purified surface antigen) Flex Block Other Recommend Other 04-09-2013 tetanus and diphther ia toxoids, adsorbed, preservative free, for adult use (5 Lf of tetanus toxoid and 2 Lf of diphtheria toxoid) Flex Block Other Recommend Other 01-28-2013 tetanus and diphther ia toxoids, adsorbed, preservative free, for adult use (5 Lf of tetanus toxoid and 2 Lf of diphtheria toxoid) Flex Block Other Recommend Other 03-29-2010 pneumococcal polysaccharide vaccine, 23 valent Flex Block Other Recommend Other Payers Date Payer Category Payer Medicare [id number] 2.1 [id number] 1940 Unknown [id number] Unknown [id number] Social History Date Type Detail Facility Sex Assigned At Recommend Other Clinical Notes 08-14-2022 to 03-07-2023 Note [...] for 6months. Check DDimer and venous US. Recommend Other 11-14-2023 Evaluation note* Encounter Date Diagnosis Assessment Notes Treatment Notes Treatment Clinical Notes Feb, Closed fracture of one rib of right side with routine healing, subsequent encounter (ICD-10 - S22.31XD) Recommend Other 11-09-2023 Evaluation note* Encounter Date Diagnosis Assessment Notes Treatment Notes Treatment Clinical Notes Feb, Need for vaccination (ICD-10 - Z23) Recommend Other 11-03-2023 Evaluation note* Encounter Date Diagnosis [...] - E44.0) Protein/calorie supplements daily. Monitor weight. Recommend Other 08-21-2023 Evaluation note* Encounter Date Diagnosis Assessment Notes Treatment Notes Treatment Clinical Notes Nov, Acute deep vein thrombosis (DVT) of left peroneal vein (ICD-10 - I82.452) Nov, Pressure injury of deep tissue of sacral region (ICD-10 - L89.156) Nov, Skin ulcer of heel, limited to breakdown of skin, unspecified laterality (ICD-10 - L97.401) Recommend Other 04-26-2023 NotePROCEDURE: XR HAND MEEK MIN [...] Electronically authenticated by: DELGADO PEARSON Date: 2022-08-15 11:57[facility]04-25-2023 Evaluation note* Encounter Date Diagnosis Assessment Notes [...] Jul, Fatigue, unspecified type (ICD-10 - R53.83) Recommend Other Evaluation noteNo InformationNort Alise Devices Other History general Narrative - Reported* Type Description Date Medical History Diarrhea Medical History Chronic venous insufficiency Medical History 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 Medical History Seasonal allergic rhinitis due t o pollen Surgical History CHOLECYSTECTOMY Surgical History APPENDECTOMY Surgical History TONSILLECTOMY Surgical History LEFT KNEE ARTHROSCOPY Hospitalization History SEE SURGICAL [facility] N[facility] - Reported* Type Description Date [...] LEFT KNEE ARTHROSCOPY Hospitalization History SEE SURGICAL Recommend Other [facility] Narrative - Reported* Type Description Date [...] LEFT KNEE ARTHROSCOPY Hospitalization History SEE SURGICAL Recommend Other [facility] Narrative - Reported* Type Description Date [...] 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 Hospitalization History SEE SURGICAL [facility] Other history general Narrative - Reported* Type [...] 01/09 23 Hospitalization History SEE SURGICAL HX Recommend Other Summary Purpose Family History No Family History Records Found Advance Directives No Advanced Directives Records Found Additional Source Comments REASON FOR VISIT (unrecogniz ed section and content) check upXray resultsLab Resu ltsTCMUpdateNo InformationDental ClearanceOKLAHOMA SUR[facility] HHUpdateNo InformationNo InformationtcmTCMD/C FROM [facility] [place] [facility] 02/19UpdateNo InformationAt WillowsWillowsflu shotMBS resultsSpeech Therapy (unrecognized sect ion and content) No Status Records Found INFORMATION SOURCE (unrecogn ized section and content) DATE CREATED AUTHOR 08/19/2022 [facility] FOR RECORDS PERTAINING TO PATIENTS WHO [...] BE BASED ON THE PRIMARY CLINICAL RECORDS. [employer] [facility]. provides no warranty or guarantee of the accuracy or completeness of information in this document.
== END 2023-03-05 16:26 | disposition home or self-care (01) ==
LOC: ER 13:12 → MS 13:56
PROVIDERS: Nurse Practitioner; Admitting Provider Family Medicine; Emergency Provider Emergency Medicine; PCP Internal Medicine; Visit Provider Family Medicine
DX: S22.41XA Multiple fractures of ribs, right side, initial encounter for closed fracture (principal); R53.1 Weakness; R60.9 Edema, unspecified; Z91.81 History of falling; Z86.718 Personal history of other venous thrombosis and embolism; M19.90 Unspecified osteoarthritis, unspecified site; Z79.01 Long term (current) use of anticoagulants; W19.XXXA Unspecified fall, initial encounter; Z87.891 Personal history of nicotine dependence; Z96.659 Presence of unspecified artificial knee joint
CPT/HCPCS: 36415; 71101; 80048; 80053; 81001; 82550; 85025; 93005; 97161; 97165; 99285; G0378

== ENCOUNTER 2023-03-18 09:55 | Outpatient (OUT) | payer MEDICARE, OTHER, SELFPAY ==
--- NOTE | 2023-03-18 10:08 | FL_ITS ---
The [address] [address] Patient Name: ROSANNA SOUSA MRN: [id number] date: 1940 Sex: M Assigned Patient Location: [place] Current Patient Location: [place] Accession/Order Number: [id number] Exam Date: 03/18/2023 10:20 Report Date: 03/18/2023 11:04 At the request of: ANDREA BLOCK Procedure: FL modified barium swallow EXAMINATION: FL modified barium swallow HISTORY: pharyngoesophageal dysphagia COMPARISON: No relevant comparison available. TECHNIQUE: A swallowing evaluation was performed with fluoroscopy in the usual manner. Standard level fluoroscopic mode of operation utilized. FINDINGS: ORAL PHASE: Normal deglutition. PHARYNGEAL PHASE: Normal swallowing. ASPIRATION: None. STRUCTURE: Residual contrast coats the oral and pharyngeal structures, likely due to dry mucosa. No visible obstruction, stricture, or dilatation. OTHER: Negative. FL/LA modified barium swallow IMPRESSION: 1. Relatively normal modified barium swallowing study. Electronically authenticated by: LOUIS BROOKE Date: 03/18/2023 11:04
== END 2023-03-18 09:56 | disposition home or self-care (01) ==
PROVIDERS: PCP Internal Medicine; Visit Provider Internal Medicine
DX: R13.14 Dysphagia, pharyngoesophageal phase (principal); I82.451 Acute embolism and thrombosis of right peroneal vein
CPT/HCPCS: 74230; 92611

== ENCOUNTER 2023-04-01 12:14 | Outpatient (RCR) | payer MEDICARE, OTHER, SELFPAY | END 2023-04-02 17:13 | disposition home or self-care (01) | LOC: ST 12:14 | PROVIDERS: PCP Internal Medicine; Visit Provider Internal Medicine | DX: R13.14 Dysphagia, pharyngoesophageal phase (principal) | CPT/HCPCS: 92526 ==

== ENCOUNTER 2023-08-20 16:04 | Emergency (ER) | payer MEDICARE, OTHER, SELFPAY ==
[2023-08-20] VITALS (28 sets, daily range): BP systolic 98–154; BP diastolic 65–84; PULSE 72–102; TEMP 35.8; O2SAT 85–97; BMI 27.3
--- NOTE | 2023-08-20 16:23 | CT_ITS ---
The [address] [address] Patient Name: ROSANNA SOUSA MRN: [id number] date: 1940 Sex: M Assigned Patient Location: ER Current Patient Location: ER Accession/Order Number: [id number] Exam Date: 08/20/2023 17:05 Report Date: 08/20/2023 18:12 At the request of: BANDAR VERA Procedure: CT abdomen pelvis w con CT ABDOMEN/PELVIS WITH IV CONTRAST. INDICATION: Pain. COMPARISON: There are no other studies available for comparison. TECHNIQUE: Contiguous axial images were obtained from the lung bases to the pelvic floor following the intravenous administration of contrast. Coronal and sagittal reformations are provided. FINDINGS: LOWER LUNGS: Clear. LIVER/BILIARY TREE: No mass. No intrahepatic ductal dilatation. GALLBLADDER: Status post cholecystectomy. CBD: Normal CBD. SPLEEN: Mild splenomegaly. PANCREAS: No acute findings. No peripancreatic fluid or inflammation. No pancreatic duct dilatation. No discrete mass. ADRENALS: Normal. KIDNEYS: No hydronephrosis. No radiopaque calculus. STOMACH AND BOWEL: Stomach is unremarkable. There are mildly dilated small bowel loops measuring up to 3.5 cm with transitioning in the lower central abdomen. There is swirling of the mesentery.. APPENDIX: Not visualized. PERITONEAL CAVITY: There is a small amount of free fluid in the abdomen and pelvis.. ABDOMINAL WALL: No subcutaneous stranding. No subcutaneous fluid collection. LYMPH NODES: No mesenteric or retroperitoneal lymphadenopathy by CT criteria. ABDOMINAL AORTA: No aneurysm. PELVIS: No acute abnormality. MUSCULOSKELETAL: No acute osseous abnormality. CT/CT abdomen pelvis w con IMPRESSION: Findings are suggestive of a small bowel obstruction with transitioning in the lower central abdomen possibly secondary to an internal hernia. No evidence of perforation.. Electronically authenticated by: FRIEDA RODRÍGUEZ Date: 08/20/2023 18:12
--- NOTE | 2023-08-20 16:25 | ED_ITS ---
HPI - Abdominal Pain General Chief Complaint: Abdominal Pain Stated Complaint: Nausea/Vomiting Time Seen by Provider: 08/20/23 16:15 Source: patient and family Mode of arrival: walk-in Limitations: no limitations History of Present Illness HPI narrative: 83 year old male presents to the ED for N/V, abd pain. Onset was this afternoon. His last BM was 08/15/23. Denies fever, chills, injury, diarrhea, urinary sx. Den ies cough, CP, SOB. He has hx appendectomy and cholecystectomy. He cannot recall the last time he passed gas. He has hx DVT, leg swelling. His Eliquis was discontinued in May,. Daughter reports he has had a cough for quite some time. He takes Lasix every other day. He take 81 mg asa daily. Related Data Home Medications ?Medication ?Instructions ?Recorded ?Confirmed apixaban 5 mg tablet (Eliquis) 5 mg PO BID 03/04/23 08/20/23 furosemide 20 mg tablet (Lasix) 20 mg PO .COMPLEX 03/04/23 08/20/23 Previous Rx's ?Medication ?Instructions ?Recorded acetaminophen 325 mg tablet 650 mg (2 x 325 mg) PO Q6H PRN 03/05/23 Moderate pain #90 tabs Allergies Allergy/AdvReac Type Severity Reaction Status Date / Time No Known Drug Allergies Allergy Verified 08/20/23 16:13 Review of Systems ROS Constitutional Denies: fever or chills Ears, nose, mouth, and throat Denies: throat pain Cardiovascular Denies: chest pain Respiratory Denies: shortness of breath or cough Gastrointestinal Reports: abdominal pain, nausea, vomiting and constipation; Denies: diarrhea Genitourinary Denies: painful urination, urinary frequency, urinary urgency or blood in urine Musculoskeletal Denies: back pain or neck pain Integumentary/Breast Denies: rash Neurological Denies: headache or weakness in extremities [facility] Medical History (Updated 08/20/23 @ 20:01 by Ruthann Delatorre) Peripheral edema ?R60.9 - Edema, unspecified (ICD-10) DVT (deep venous thrombosis) ?I82.409 - Acute embolism and thrombosis of unspecified deep veins of unspecified lower extremity (ICD-10) Old lacunar stroke without late effect ?Z86.73 - Personal history of transient ischemic attack (TIA), and cerebral infarction without residual deficits (ICD-10) Low back pain ?M54.50 - Low back pain, unspecified (ICD-10) Stage II pressure ulcer ?L89.92 - Pressure ulcer of unspecified site, stage 2 (ICD-10) Head injury ?S09.90XA - Unspecified injury of head, initial encounter (ICD-10) Elevated bilirubin ?R17 - Unspecified jaundice (ICD-10) Decubitus ulcer of ankle, stage 2 ?L89.502 - Pressure ulcer of unspecified ankle, stage 2 (ICD-10) Abrasion of scalp ?S00.01XA - Abrasion of scalp, initial encounter (ICD-10) Surgical History (Updated 08/20/23 @ 19:06 by Ruthann Delatorre) History of cholecystectomy ?Z90.49 - Acquired absence of other specified parts of digestive tract (ICD- 10) Hx of appendectomy ?Z90.49 - Acquired absence of other specified parts of digestive tract (ICD- 10) History of partial replacement of left hip joint using bipolar prosthesis ?Z96.642 - Presence of left artificial hip joint (ICD-10) History of knee replacement ?Z96.659 - Presence of unspecified artificial knee joint (ICD-10) Social History Within the past year, how often did you have a drink containing alcohol: monthly or less Smoking status: Former smoker Exam Constitutional Vital Signs, click to edit/add: Last Vital Signs Temp 96.4 F L 08/20/23 16:08 Pulse 94 H 08/20/23 20:10 Resp 29 H 08/20/23 17:00 BP 98/65 08/20/23 20:00 Pulse Ox 93 L 08/20/23 20:10 O2 Del Method Nasal Cannula 08/20/23 16:58 O2 Flow Rate 2 08/20/23 16:58 Common normals: no apparent distress and oriented x3 General appearance: cooperative Eye Common normals: conjunctivae normal and no scleral icterus Neck & C-Spine Common normals: supple Chest Chest: symmetrical chest wall rise Cardio Rate: regular rate and bradycardic GI Common normals: Normal to inspection, nondistended, normoactive bowel sounds present and soft to palpation Palpation: tender Details: RLQ and RUQ Neuro Common normals: oriented x3 and moves all extremities Sensorium/orientation: awake and alert Course Vital Signs Vital signs: Vital Signs Temperature 96.4 F L 08/20/23 16:08 Pulse Rate 75 08/20/23 16:08 Respiratory Rate 18 08/20/23 16:08 Blood Pressure 154/84 H 08/20/23 16:08 Pulse Oximetry 95 08/20/23 16:08 Oxygen Delivery Method Room Air 08/20/23 16:08 Temperature 96.4 F L 08/20/23 16:08 Pulse Rate 94 H 08/20/23 20:10 Respiratory Rate 29 H 08/20/23 17:00 Blood Pressure 98/65 08/20/23 20:00 Pulse Oximetry 93 L 08/20/23 20:10 Oxygen Delivery Method Nasal Cannula 08/20/23 16:58 Oxygen Delivery Flow Rate 2 08/20/23 16:58 MDM - Abdominal Pain MDM Narrative Medical decision making narrative: WBC count was 15.6. CT scan showed a small bowel obstruction. An NG tube was inserted. Chest x-ray showed interstitial prominence, vascular congestion versus atypical infection; mild right basilar atelectasis/consolidation. I spoke with Dr. Acuña for surgery here at [facility]. He recommended the patient be transferred to a tertiary center due to his age and medical hx. [facility] in [place] has an extended waiting list for transfers. I then spoke with Dr. Mihir Lopez for surgery at [facility] in [place], [place]. He agreed to accept the patient for transfer and recommended sending the patient to the ED. I then spoke with Dr. Reji Donovan from the ED who also accepted the patient for transfer. The patient and his family were updated. Differential Diagnosis Differential diagnosis: Likely abdominal pain, diverticulitis, gastroenteritis and small bowel obstruction Medical Records Attestation: I reviewed the patient's medical records. Lab Data Attestation: I reviewed the patient's lab results. Labs: Lab Results 08/20/23 08/20/23 Range/Units 16:30 17:50 WBC 15.6 H (4.0-11.0) 10^3/uL RBC 4.35 L (4.70-6.10) 10^6/uL Hgb 13.3 L (14.0-18.0) g/dL Hct 40.8 L (42.0-54.0) % MCV 93.8 (80.0-94.0) fL MCH 30.6 (25.9-34.0) pg MCHC 32.6 (29.9-35.2) g/dL RDW 15.2 H (11.0-15.0) % Plt Count 220 (150-450) 10^3/uL MPV 9.8 (9.5-13.5) fL Neut % (Auto) 86.4 H (43.0-75.0) % Lymph % (Auto) 9.6 L (20.5-60.0) % [place] % (Auto) 3.2 (1.7-12.0) % Eos % (Auto) 0.1 L (0.9-7.0) % Baso % (Auto) 0.3 (0.2-2.0) % Neut # (Auto) 13.4 H (1.4-6.5) 10^3/uL Lymph # (Auto) 1.5 (1.2-3.8) 10^3/uL [place] # (Auto) 0.5 (0.3-0.8) 10^3/uL Eos # (Auto) 0.0 (0.0-0.7) 10^3/uL Baso # (Auto) 0.1 (0.0-0.1) 10^3/uL Abs Immat Gran (auto) 0.06 H (0.00-0.03) 10^3/uL Imm/Tot Granulo (auto) 0.4 (0.0-0.5) % Sodium 137 (136-145) mmol/L Potassium 3.6 (3.5-5.1) mmol/L Chloride 100 (98-107) mmol/L Carbon Dioxide 28.2 (21.0-32.0) mmol/L Anion Gap 12.4 BUN 30.0 H (7.0-18.0) mg/dL Creatinine 1.05 (0.70-1.30) mg/dL Est GFR ( Amer) >60 (>=60) Est GFR (Non-Af Amer) >60 (>=60) BUN/Creatinine Ratio 28.6 Glucose 202 H (74-106) mg/dL Calcium 9.7 (8.5-10.1) mg/dL Total Bilirubin 1.3 H (0.2-1.0) mg/dL AST 67 H (15-37) U/L ALT 74 H (16-63) U/L Alkaline Phosphatase 104 (46-116) U/L NT-Pro-B Natriuret Pep 470.0 (<=1800.0) pg/mL Total Protein 8.5 H (6.4-8.2) g/dL Albumin 3.2 L (3.4-5.0) g/dL Globulin 5.3 g/dL Albumin/Globulin Ratio 0.6 Lipase 18.0 (16.0-77.0) U/L Urine Color Yellow (YELLOW) Urine Clarity Clear (CLEAR) Urine pH 5.0 (5.0-9.0) Ur Specific [place] 1.020 (1.005-1.025) Urine Protein Negative (NEG/TRACE) mg/dL Urine Glucose (UA) Negative (NEGATIVE) mg/dL Urine Ketones Negative (NEGATIVE) mg/dL Urine Occult Blood Negative (NEGATIVE) Urine Nitrite Negative (NEGATIVE) Urine Bilirubin Negative (NEGATIVE) Urine Urobilinogen 0.2 (0.2-1.0) EU/dL Ur Leukocyte Esterase Negative (NEGATIVE) Imaging Data CT scan - abdomen: Attestation: I have reviewed the pertinent imaging results. Radiologist's impression: ITS Impressions Abdomen/Pelvis CT 08/20/23 16:23 IMPRESSION: Findings are suggestive of a small bowel obstruction with transitioning in the lower central abdomen possibly secondary to an internal hernia. No evidence of perforation.. Electronically authenticated by: FRIEDA RODRÍGUEZ Date: 08/20/2023 18:12 Chest X-Ray 08/20/23 16:49 IMPRESSION: Interstitial prominence, vascular congestion versus atypical infection. Mild right basilar atelectasis/consolidation. Electronically authenticated by: PHUC MIRANDA Date: 08/20/2023 18:06 ECG Data Attestation: ?I have reviewed the pertinent ECG results. (EKG was reviewed by the attending physician. It showed sinus rhythm at a rate of 73.) Interpretation: Measurements Intervals [place] Rate: 73 P: 38 MS: 180 QRS: -49 QRSD: 158 T: 64 QT: 454 QTc: 480 Interpretive Statements 1100 Sinus rhythm 2450 Right bundle branch block 2630 Left anterior fascicular block 3532 Lateral myocardial infarction, probably recent 5234 Left ventricular hypertrophy with repolarization abnormality 0102 ARTIFACT PRESENT 9150 abnormal ECG No previous ECG available for comparison Discharge Plan Discharge Chief Complaint: Abdominal Pain Clinical Impression: Small bowel obstruction, Abdominal pain Patient Disposition: [facility] Time of Disposition Decision: 19:30 Discharge Location: [facility] Discharge location: Emergency Department Condition: Good Mode of Transportation: EMS
[2023-08-20] MEDS: 0.9 % SODIUM CHLORIDE 1,000 ML 100 ML IV (16:38)
[2023-08-20] MEDS: FAMOTIDINE/PF 20 MG/2 ML VIAL IV (16:39)
[2023-08-20] MEDS: ONDANSETRON PF 4 MG/2 ML VIAL IV ×2 (16:40→19:43)
[2023-08-20 16:42] LABS: Basophils Absolute Auto 0.1 10^3/uL (0.0-0.1); Basophils Percent Auto 0.3 % (0.2-2.0); Eosinophils Percent Auto 0.1 % (0.9-7.0); Hematocrit 40.8 % (42.0-54.0); Hemoglobin 13.3 g/dL (14.0-18.0); Immature Granulocytes Abs Auto 0.06 10^3/uL (0.00-0.03); Immature Granulocytes Pct Auto 0.4 % (0.0-0.5); Lymphocytes Absolute Auto 1.5 10^3/uL (1.2-3.8); Lymphocytes Percent Auto 9.6 % (20.5-60.0); Mean Corpuscular HGB Conc 32.6 g/dL (29.9-35.2); Mean Corpuscular Hemoglobin 30.6 pg (25.9-34.0); Mean Corpuscular Volume 93.8 fL (80.0-94.0); Mean Platelet Volume 9.8 fL (9.5-13.5); Monocytes Absolute Auto 0.5 10^3/uL (0.3-0.8); Monocytes Percent Auto 3.2 % (1.7-12.0); Neutrophils Absolute Auto 13.4 10^3/uL (1.4-6.5); Neutrophils Percent Auto 86.4 % (43.0-75.0); Platelet Count 220 10^3/uL (150-450); Red Blood Count 4.35 10^6/uL (4.70-6.10); Red Cell Distribution Width 15.2 % (11.0-15.0); White Blood Count 15.6 10^3/uL (4.0-11.0)
--- NOTE | 2023-08-20 16:49 | XR_ITS ---
The [address] [address] Patient Name: ROSANNA SOUAS MRN: [id number] date: 1940 Sex: M Assigned Patient Location: ER Current Patient Location: ER Accession/Order Number: [id number] Exam Date: 08/20/2023 16:58 Report Date: 08/20/2023 18:06 At the request of: BANDAR VERA Procedure: XR chest 1V EXAM: XR chest 1V HISTORY: SOB COMPARISON: 09/28/2022 TECHNIQUE: Single view of the chest FINDINGS: Borderline cardiomegaly, accentuated by technique. Low lung volumes. Mild right basilar atelectasis/consolidation. Interstitial prominence. No pneumothorax. No pleural effusion. XR/XR chest 1V IMPRESSION: Interstitial prominence, vascular congestion versus atypical infection. Mild right basilar atelectasis/consolidation. Electronically authenticated by: PHUC MIRANDA Date: 08/20/2023 18:06
[2023-08-20 16:55] LABS: Alanine Aminotransferase 74 U/L (16-63); Albumin Globulin Ratio 0.6; Albumin Level 3.2 g/dL (3.4-5.0); Alkaline Phosphatase 104 U/L (46-116); Anion Gap 12.4; Aspartate Amino Transferase 67 U/L (15-37); BUN Creatinine Ratio 28.6; Bilirubin Total 1.3 mg/dL (0.2-1.0); Calcium 9.7 mg/dL (8.5-10.1); Carbon Dioxide 28.2 mmol/L (21.0-32.0); Chloride 100 mmol/L (98-107); Estimated GFR (African America >60 (>=60); Estimated GFR (Non-African Ame >60 (>=60); Globulin 5.3 g/dL; Glucose 202 mg/dL (74-106); Potassium 3.6 mmol/L (3.5-5.1); Sodium 137 mmol/L (136-145); Total Protein 8.5 g/dL (6.4-8.2)
[2023-08-20 17:57] LABS: Bilirubin Urine NEGATIVE (NEGATIVE); Blood Urine NEGATIVE (NEGATIVE); Clarity Urine CLEAR (CLEAR); Color Urine YELLOW (YELLOW); Glucose Urine UA NEGATIVE (NEGATIVE); Ketones Urine NEGATIVE (NEGATIVE); Leukocyte Esterase Urine NEGATIVE (NEGATIVE); Nitrite Urine NEGATIVE (NEGATIVE); Protein Urine NEGATIVE (NEG/TRACE); Urobilinogen Urine 0.2 EU/dL (0.2-1.0)
[2023-08-20 17:58] LABS: Urine Microscopic Indicated NO
--- NOTE | 2023-08-20 18:31 | ECG_ITS ---
The [facility] Test Date: 2023-08-20 Pat Name: ROSANNA SOUSA Department: Room: - Gender: Male [employer] System Operator: : 1940 Requested By: [id number] Order Number: [id number] Reading MD: ANDREA BLOCK Measurements Intervals [place] Rate: 73 P: 38 NV: 180 QRS: -49 QRSD: 158 T: 64 QT: 454 QTc: 480 Interpretive Statements 1100 Sinus rhythm 2450 Right bundle branch block with secondary ST/T wave changes 2630 Left anterior fascicular block 3532 Remote Lateral myocardial infarction 5234 Left ventricular hypertrophy with repolarization abnormality 0102 ARTIFACT PRESENT 9150 abnormal ECG Electronically Signed On 08-20-2023 22:29:23 EDT by ANDREA BLOCK
[2023-08-20] MEDS: MORPHINE SULFATE 2 MG/ML SYRINGE IV (19:43)
[2023-08-20] MEDS: CEFAZOLIN SODIUM/DEXTROSE,ISO 2 GM/50 ML PIGGYBACK IV (19:44)
== END 2023-08-20 20:20 | disposition short-term general hospital (02) ==
PROVIDERS: Nurse Practitioner Family; Emergency Provider Emergency Medicine; PCP Internal Medicine
DX: K56.609 Unspecified intestinal obstruction, unspecified as to partial versus complete obstruction (principal); R10.9 Unspecified abdominal pain; Z90.49 Acquired absence of other specified parts of digestive tract; Z86.718 Personal history of other venous thrombosis and embolism; Z79.82 Long term (current) use of aspirin; Z79.899 Other long term (current) drug therapy; Z86.73 Personal history of transient ischemic attack (TIA), and cerebral infarction without residual deficits; Z96.642 Presence of left artificial hip joint; Z96.659 Presence of unspecified artificial knee joint; Z87.891 Personal history of nicotine dependence
CPT/HCPCS: 36415; 71045; 74177; 80053; 81003; 83690; 83880; 85025; 93005; 96374; 96375; 96376; 99285; Q9967

== ENCOUNTER 2023-10-23 09:10 | Outpatient (OUT) | payer MEDICARE, OTHER, SELFPAY ==
[2023-10-23 09:25] LABS: Basophils Percent Auto 0.3 % (0.2-2.0); Eosinophils Absolute Auto 0.3 10^3/uL (0.0-0.7); Eosinophils Percent Auto 4.6 % (0.9-7.0); Hematocrit 35.9 % (42.0-54.0); Hemoglobin 11.4 g/dL (14.0-18.0); Immature Granulocytes Abs Auto 0.01 10^3/uL (0.00-0.03); Immature Granulocytes Pct Auto 0.2 % (0.0-0.5); Lymphocytes Absolute Auto 1.8 10^3/uL (1.2-3.8); Lymphocytes Percent Auto 28.7 % (20.5-60.0); Mean Corpuscular HGB Conc 31.8 g/dL (29.9-35.2); Mean Corpuscular Volume 94.5 fL (80.0-94.0); Mean Platelet Volume 9.8 fL (9.5-13.5); Monocytes Absolute Auto 0.3 10^3/uL (0.3-0.8); Monocytes Percent Auto 5.6 % (1.7-12.0); Neutrophils Absolute Auto 3.7 10^3/uL (1.4-6.5); Neutrophils Percent Auto 60.6 % (43.0-75.0); Platelet Count 188 10^3/uL (150-450); Red Cell Distribution Width 15.4 % (11.0-15.0); White Blood Count 6.1 10^3/uL (4.0-11.0)
--- OUTSIDE RECORDS SUMMARY | 2023-10-23 09:30 | XMS_ITS ---
Patient Summarization (C-CDA 2.1 CCD) Created on: October 23, 2023 Cheko Blake : 1940 Sex: Male Author Organization Sample organization Care Team Providers Care Entry Level Automotive Technician Name Role Phone Flex Isaacs Unavailable DR FLEX ISAACS Admitting Unavailable FERNY, DR MENDEZ Primary Care Unavailable FERNY, DR MENDEZ Consulting Unavailable FERNY, DR MENDEZ Attending Unavailable Rohini Pearson Consulting Unavailable Kamilla Vieira Unavailable PITO SPRAGUE Attending Unavailable PITO SPRAGUE Attending Unavailable PITO SPRAGUE Attending Unavailable JAVI GLYNN Consulting Unavailable ANEL BENSON Admitting Unavail able ANEL BENSON Attending Unavail able FLEX ISAACS Primary Care Unavailable JESSICA PIERCE Consulting Unavailable CESAR PHILLIPS Consulting Unavailable DESTINEE MERCADO Consulting Unavailable MICH DENT Consulting Unavailable Allergies Allergy Classification Reported Allergen(s) Allergy Type Date of Onset Reaction(s) Facility (8 sources) patient allergy list reviewed by nurse or physicia Propensity to adverse reactions 5 Comment:Done [facility] Other Encounters Encounter Date Encounter Type Care Provider Facility Start: 10-03-2023 End: 10-03-2023 ambulatory [facility] Work Phone: Start: 10-03-2023 End: 10-03-2023 Patient encounter procedure Counts Include [facility] Work Phone: Start: 09-27-2023 Non-patient / Non-visit Counts Include [facility] Work Phone: Start: 09-26-2023 End: 09-26-2023 ambulatory PITO SPRAGUE Not Available Start: 09-05-2023 Non-patient / Non-visit Counts Include [facility] Vinnie mccarthy [place] Work Phone: Start: 08-20-2023 End: 09-02-2023 Evaluation and management of inpatient JAVI GLYNN [facility] Start: 08-20-2023 Non-patient / Non-visit Counts Include [facility] Work Phone: Start: 06-20-2023 End: 06-20-2023 ambulatory PITO SPRAGUE Not Available Start: 06-14-2023 End: 06-14-2023 ambulatory [facility] Work Phone: Start: 06-14-2023 End: 06-14-2023 Patient encounter procedure Counts Include [facility]ician [facility] Work Phone: Start: 04-26-2023 End: 04-26-2023 ambulatory Flex Isaacs Other [facility] Other Start: 04-26-2023 Telephone encounter Flex HIGUERA [facility] Start: 04-11-2023 End: 04-11-2023 ambulatory PITO SPRAGUE Not Available Start: 04-05-2023 End: 04-05-2023 ambulatory Flex Isaacs Other [facility] Other Start: 04-05-2023 Telephone encounter Flex HIGUERA [facility] Start: 03-19-2023 End: 03-19-2023 ambulatory Flex Isaacs Other [facility] Other Start: 03-19-2023 Telephone encounter Flex HIGUERA [facility] Start: 03-07-2023 End: 03-07-2023 ambulatory Flex Isaacs Other [facility] Other Start: 03-07-2023 Home visit est pt mod-hi severity 40 minutes Flex Isaacs [facility] [place] Start: 03-06-2023 End: 03-06-2023 ambulatory Flex Isaacs Other [facility] Other Start: 03-06-2023 Telephone encounter Flex Ball FP [facility] Start: 03-05-2023 End: 03-05-2023 ambulatory Flex Isaacs Other [facility] Other Start: 03-05-2023 Telephone encounter Flex Isaacs [facility] Start: 02-28-2023 End: 02-28-2023 ambulatory Kamilla Vieira Other [facility] Other Start: 02-28-2023 Nursing evaluation o f patient and report Kamilla Andersongómezcristina [facility] Start: 02-22-2023 End: 02-22-2023 ambulatory Flex Isaacs Other [facility] Other Start: 02-22-2023 Transitional care manage srvc 14 day discharge Flex Isaacs [facility] Start: 02-20-2023 End: 02-20-2023 ambulatory Flex Isaacs Other [facility] Other Start: 02-20-2023 Telephone encounter Flex Isaacs [facility] Start: 02-11-2023 End: 02-11-2023 ambulatory Flex Isaacs Other [facility] Other Start: 02-11-2023 Telephone encounter Flex Isaacs [facility] Start: 01-03-2023 End: 01-03-2023 ambulatory Flex Isaacs Other [facility] Other Start: 01-03-2023 Telephone encounter Flex Isaacs [facility] Start: 01-02-2023 End: 01-02-2023 ambulatory Flex Isaacs Other [facility] Other Start: 01-02-2023 Telephone encounter Flex Isaacs [facility] Start: 01-01-2023 End: 01-01-2023 ambulatory Flex Isaacs Other [facility] Other Start: 01-01-2023 Telephone encounter Flex Ball [facility] Start: 12-31-2022 End: 12-31-2022 ambulatory Flex Isaacs Other [facility] Other Start: 12-31-2022 Telephone encounter Flex HIGUERA [facility] Start: 12-10-2022 End: 12-10-2022 ambulatory Flex Isaacs Other [facility] Other Start: 12-10-2022 Telephone encounter Flex HIGUERA [facility] Start: 12-09-2022 End: 12-09-2022 ambulatory Flex Isaacs Other [facility] Other Start: 12-09-2022 Telephone encounter Flex HIGUERA [facility] Start: 10-04-2022 End: 10-04-2022 ambulatory Flex Isaacs Other [facility] Other Start: 10-04-2022 Telephone encounter Flex Isaacs [facility] Start: 08-16-2022 End: 08-16-2022 ambulatory Flex Isaacs Other [facility] Other Start: 08-16-2022 Telephone encounter Flex Isaacs [facility] Start: 08-15-2022 Telephone encounter Flex HIGUERA [facility] Start: 08-15-2022 End: 08-16-[address] FLEX ISAACS [facility] Other Start: 08-14-2022 End: 08-14-2022 ambulatory Flex Isaacs Other [facility] Other Start: 08-14-2022 Patient encounter procedure Flex Isaacs [facility] Start: 05-20-2019 Adult health examination Flex Ferny Other [facility] Other Immunizations Immunization Date Immunization Notes Care Provider Brando higgins 02-28-2023 influenza, high dose seasonal, preservative-free Flex Isaacs Other [facility] Other 02-28-2023 influenza virus vaccine, unspecified formulation [facility] 04-11-2022 influenza, injectabl e, quadrivalent, preservative free Flex Isaacs Other [facility] 02-23-2021 COVID-19 Vaccine Moderna - Documentation Purposes Only Flex Isaacs Other [facility] 06-17-2020 COVID-19 Vaccine Moderna - Documentation Purposes Only Flex Isaacs Other [facility] 05-20-2020 COVID-19 Vaccine Moderna - Documentation Purposes Only Flex Isaacs Other [facility] 07-03-2017 pneumococcal conjuga te vaccine, 13 valent Flex Isaacs Other [facility] 07-03-2017 pneumococcal Conjuga te, unspecified formulation; Translations: [Need for prophylactic vaccination against Streptococcus pneumoniae (pneumococcus)] Flex Isaacs Other [facility] Other 03-07-2017 influenza virus vaccine, split virus (incl. purified surface antigen) Flex Isaacs Other [facility] Other 03-07-2017 influenza virus vaccine, unspecified formulation [facility] 03-28-2016 influenza virus vaccine, split virus (incl. purified surface antigen) Flex Isaacs Other [facility] Other 03-28-2016 influenza virus vaccine, unspecified formulation [facility] 03-08-2015 influenza virus vaccine, split virus (incl. purified surface antigen) Flex Isaacs Other [facility] Other 03-08-2015 influenza virus vaccine, unspecified formulation [facility] 04-09-2013 tetanus and diphther ia toxoids, adsorbed, preservative free, for adult use (5 Lf of tetanus toxoid and 2 Lf of diphtheria toxoid) Flex Isaacs Other [facility] 01-28-2013 tetanus and diphther ia toxoids, adsorbed, preservative free, for adult use (5 Lf of tetanus toxoid and 2 Lf of diphtheria toxoid) Flex Isaacs Other [facility] 03-29-2010 pneumococcal polysaccharide vaccine, 23 valent Flex Isaacs Other [facility] Medications Current Medications Medication Drug Class(es) Dates Sig (Normalized) Sig (Original) Albuterol (2 sources) beta2-Adrenergic Agonist Start: 10-03-2023 take 1.25 mg by inhalation twice daily Albuterol Sulfate Active 1.25 MG INHALATION Twice daily 180 October 03, 2023 12:00am Start: 09-27-2023 End: 10-03-2023 Albuterol Sulfate Discontinu ed 2.5 MG INHALATION Q20M September 27, 2023 12:00am October 03, 2023 4:05pm for up to 3 doses aspirin 81 mg delayed release oral tablet (2 sources) Platelet Aggregation Inhibitor, Nonsteroidal Anti-inflammatory Drug Start: 09-27-2023 End: 09-27-2023 take 1 tablet by mouth once daily Aspirin (Adult Aspirin Regimen) 81 mg tablet,delayed release (DR/EC) Active 81 MG PO Daily September 27, 2023 1:30pm furosemide 20 mg oral tablet (15 sources) Loop Diuretic Start: 06-14-2023 End: 09-27-2023 take 20 mg by mouth every other day Furosemide Active 20 MG PO .QOD September 27, 2023 1:28pm Start: 06-12-2023 End: 06-14-2023 Furosemide Discontinued 20 M G PO Every 48 hours June 12, 2023 1:00am June 14, 2023 4:05pm take 1 tablet by elly th every other day Furosemide 20 MG 1 tablet Orally every other day Active take 1 tablet by elly th every twenty-four hours Furosemide 20 MG 1 tablet Orally Once a day Active potassium citrate 10 meq extended release oral tablet (3 sources) Start: 09-27-2023 End: 10-03-2023 take 10 mEq by mouth once daily Potassium Citrate Active 10 MEQ PO Daily October 03, 2023 12:00am prednisoLONE 1.2 mg/ml ophthalmic suspension (1 source) Corticosteroid Start: 10-03-2023 take 1 drop(s) into the eye(s) three times daily Prednisolone Acetate Active 1 DROPS EYE-BOTH Three times daily October 03, 2023 12:00am Sennosides-Docusate Sodium (1 source) Start: 09-27-2023 take 2 tablets by mouth once daily at bedtime Sennosides-Docusa te Sodium Active 2 TAB-CAP PO Daily at bedtime September 27, 2023 12:00am tamsulosin hydrochloride 0.4 mg oral capsule (2 sources) alpha-Adrenergic Anita Start: 09-27-2023 End: 09-27-2023 take 1 capsule by mouth once daily Tamsulosin (Flomax) 0.4 mg capsule Active 0.4 MG PO Daily September 27, 2023 1:29pm Tylenol 8 Hour 650 MG (8 sources) take 2 tablets by mouth every eight hours as needed Tylenol 8 Hour 650 MG 2 tablets as needed Orally every 8 hrs Active Vitamin A (3 sources) Vitamin A Start: 10-03-2023 Vitamin A Active NOTAPPLIC October 03, 2023 12:00am Start: 06-14-2023 End: 09-27-2023 take 1 ug by mouth once daily Vitamin A Acetate Discon tinued MCG PO Daily June 14, 2023 1:00am September 27, 2023 1:24pm Completed/Discontinued Medications Medication Drug Class(es) Dates Sig (Normalized) Sig (Original) acetaminophen 500 mg oral tablet (15 sources) Start: 09-27-2023 End: 10-03-2023 take 1 tablet by mouth every six hours Acetaminophen (Tylenol Extra Strength) 500 mg tablet Discontinued 500 MG PO Every 6 hours September 27, 2023 12:00am October 03, 2023 4:05pm Start: 06-12-2023 End: 06-14-2023 Acetaminophen (Tylenol Arthr itis Pain) 650 mg tablet extended release Discontinued 1300 MG PO Every 8 hours June 12, 2023 1:00am June 14, 2023 4:03pm take 1 capsule by mo uth every six hours Acetaminophen 500 MG 1 capsule as needed Orally every 6 hrs Active take 2 tablets by mo uth every eight hours Tylenol 8 Hour 650 MG 2 tablets as needed Orally every 8 hrs Active apixaban 5 mg oral tablet (14 sources) Factor Xa Inhibitor Start: 06-14-2023 End: 09-27-2023 take 5 mg by mouth once Apixaban Discontinued 5 MG PO Once June 14, 2023 4:02pm September 27, 2023 1:23pm Start: 06-12-2023 End: 06-14-2023 take 5 mg by mouth twice daily Apixaban Discontinued 5 MG PO Twice daily June 12, 2023 1:00am June 14, 2023 4:05pm take 1 tablet by elly th every twelve hours Eliquis 5 MG 1 tablet Orally Twice a day for 30 days Active benzonatate 200 mg oral capsule (1 source) Non-narcotic Antitussive Start: 09-27-2023 End: 10-03-2023 take 200 mg by mouth three times daily Benzonatate Discontinued 200 MG PO Three times daily September 27, 2023 12:00am October 03, 2023 4:05pm melatonin 10 mg oral capsule (1 source) Start: 09-27-2023 End: 10-03-2023 take 10 mg by mouth once daily at bedtime Melatonin Discontinued 10 MG PO Daily at bedtime September 27, 2023 12:00am October 03, 2023 4:06pm naproxen sodium 220 mg oral capsule (2 sources) Nonsteroidal Anti-inflammatory Drug Start: 06-14-2023 End: 09-27-2023 take 220 mg by mouth every twelve hours Naproxen Sodium Discontinued 220 MG PO Every 12 hours June 14, 2023 1:00am September 27, 2023 1:24pm ondansetron 4 mg disintegrating oral tablet (1 source) Serotonin-3 Receptor Antagonist Start: 09-27-2023 End: 10-03-2023 take 4 mg by mouth every eight hours Ondansetron Discontinued 4 MG PO Every 8 hours September 27, 2023 12:00am October 03, 2023 4:06pm polyethylene glycol 3350 17047 mg powder for oral solution (1 source) Osmotic Laxative Start: 09-27-2023 End: 10-03-2023 Polyethylene Glycol 3350 (Miralax) 17 gram/dose powder Discontinued 17 GM PO Daily September 27, 2023 12:00am October 03, 2023 4:06pm Psyllium (12 sources) Start: 06-12-2023 End: 06-14-2023 take 8 [oz_av] by mouth once daily Psyllium Discontinued 1 PACKET PO Daily June 12, 2023 1:00am June 14, 2023 4:03pm mix into at least 8 oz of water or juice before administering Start: 06-12-2023 End: 06-14-2023 take 8 [oz_av] by mouth once daily Psyllium Discontinued 1 PACKET PO Daily June 12, 2023 12:00am June 14, 2023 3:03pm mix into at least 8 oz of water or juice before administering Metamucil 28 % 1 packet with 8 ounces of liquid as needed Orally Once a day Active Payers Date Payer Category Payer Unknown [id number] 2018 Unknown [id number] 1961 Medicare [id number] 1940 Unknown [id number] 1940 Unknown [id number] 1940 Unknown [id number] 1940 Unknown [id number] 1940 Unknown 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; Translations: [Pressure ulcer of sacral region, stage 1] Chronic Deficiency and other anemia (10 sources) Anemia; Translations: [Anemia, unspecified] Onset: 5 06-13-2023 Episodic Deficiency and other anemia (1 source) Anemia, unspecified; Translations: [Anemia, unspecified] 06-14-2023 Episodic Fracture of neck of femur (hip) (1 [...] Clostridium difficile, not specified as recurrent] Episodic Intestinal obstruction without hernia (1 source) Unspecified intestinal obstruction, unspecified as to partial versus complete obstruction; Translations: [Unspecified intestinal obstruction, unspecified as to partial versus complete obstruction] Onset: 4 Episodic Malaise and fatigue (18 sources) Other fatigue; Translations: [Malaise and fatigue] Onset: 8 Episodic Nonspecific chest pain (1 source) Chest pain, unspecified; Translations: [Chest pain, unspecified] Onset: 4 Episodic Nutritional deficiencies (12 sources) Moderate protein energy malnutrition; Translations: [Moderate protein-calorie malnutrition] Chronic Osteoarthritis (8 sources) Osteoarthritis; Translations: [Polyosteoarthritis, unspecified] Chronic Other acquired deformities (5 sources) Other deformity of right finger(s); Translations: [OTHER DEFORMITY OF RIGHT FINGERS] Onset: 3 Episodic Other acquired deformities (2 sources) Other deformity of left finger(s); Translations: [OTHER DEFORMITY OF LEFT FINGERS] Onset: 3 Episodic Other aftercare (2 sources) Other superintendent terminal (current) drug therapy; Translations: [OTH E BUSINESS CONSULTANT CURRENT DRUG THERAPY] Onset: 3 Episodic Other and unspecified benign neoplasm (8 sources) Benign neoplasm of skin; Translations: [Benign neoplasm of skin, site unspecified] Episodic Other diseases of veins and lymphatics (20 sources) Peripheral venous insufficiency; Translations: [Venous insufficiency (chronic) (peripheral)] 06-12-2023 Episodic Other diseases of veins and lymphatics (3 sources) Venous insufficiency (chronic) (peripheral); Translations: [Venous (peripheral) insufficiency, unspecified] Episodic Other fractures (1 source) Fracture of one rib, right side, subsequent encounter for fracture with routine healing Episodic Other fractures (1 source) Fracture of one rib, left side, subsequent encounter for fracture with routine healing Episodic Other fractures (2 sources) Fracture of right rib; Translations: [Fracture of one rib, right side, initial encounter for closed fracture] 06-13-2023 Episodic Other fractures (1 source) Fracture of one rib, right side, initial encounter for closed fracture; Translations: [Closed fracture of rib(s), unspecified] 06-14-2023 Episodic Other gastrointestinal disorders (20 sources) Diarrhea; Translations: [Diarrhea, unspecified] Episodic Other gastrointestinal disorders (12 sources) Dysphagia; Translations: [Dysphagia, pharyngoesophageal phase] 06-13-2023 Episodic Other gastrointestinal disorders (3 sources) Dysphagia, pharyngoesophageal phase; Translations: [Dysphagia, pharyngoesophageal phase] Episodic Other gastrointestinal disorders (1 source) Diarrhea, unspecified; Translations: [Diarrhea] Episodic Other gastrointestinal disorders (2 sources) Personal history of other diseases of the digestive system; Translations: [History of small bowel obstruction] 10-02-2023 Episodic Other nutritional; endocrine; and metabolic disorders (8 sources) Simple obesity ; Translations: [Other obesity due to excess calories] Onset: 6 Chronic Other nutritional; endocrine; and metabolic disorders (8 sources) Body mass index 30+ - obesity; Translations: [Body mass index 31.0-31.9, adult] Onset: 6 Chronic Other upper respiratory disease (20 sources) Allergic rhinitis due to pollen; Translations: [Allergic rhinitis due to pollen] 06-12-2023 Chronic Other upper respiratory disease (1 source) Allergic rhinitis due to pollen Chronic Other upper respiratory disease (8 sources) Seasonal allergic rhinitis; Translations: [Other seasonal allergic rhinitis] Onset: 8 Chronic Other upper respiratory disease (8 sources) Allergic rhinitis; Translations: [Allergic rhinitis, unspecified] Chronic Pneumonia (except that caused by tuberculosis or sexually transmitted disease) (2 sources) Hospital acquired pneumonia; Translations: [Pneumonia, unspecified organism] 10-02-2023 Episodic Pulmonary heart disease (16 sources) Pulmonary hypertension; Translations: [Pulmonary hypertension, unspecified] Chronic Residual codes; unclassified (2 sources) Localized edema Episodic Spondylosis; intervertebral disc disorders; other back problems (20 sources) Lumbar spondylosis; Translations: [Spondylosis without myelopathy or radiculopathy, lumbar region] Chronic Past or Other Problems Problem Classification Problem Date Documented Da te Episodic/Chronic Other gastrointestinal disorders (8 sources) Other specified [...] sources) Generalized hyperhidrosis; Translations: [Generalized hyperhidrosis] Onset: 11-15-2015 Episodic Screening and history of mental health and substance abuse codes (8 sources) History of tobacco use; Translations: [Personal history of tobacco use, presenting hazards to health] Onset: 04-23-2017 Episodic Unclassified (1 source) Acute embolism and thrombosis of left peroneal vein Unclassified (1 source) Pressure-induced deep tissue damage of sacral region Unclassified (3 sources) Acute embolism and thrombosis of right peroneal vein Procedures Date Procedure Procedure Detail Performing Clinician Start: 07-03-2017 Diabetes mellitus screening Flex Isaacs Other Start: 11-15-2015 Screening for malign ant neoplasm of colon Flex Isaacs Other Screening for malign ant neoplasm of prostate Flex Isaacs Other Results Test Name Value Interpretation Reference Range Facility Basic Metabolic Profon 09-01 Anion gap [Moles/Vol] 6 mmol/L Low 01-05 [facility] Comment on above: Performed By: #### B MP, TROPI #### [facility] [place] [address] Mime Artist: Ramsey Rodriguez MD Calcium [Mass/Vol] 8.7 mg/dL Normal 8.6-10.4 [facility] Comment on above: Performed By: #### B MP, TROPI #### [facility] [address] [place] [id number] Mime Artist: Ramsey Rodriguez MD Chloride [Moles/Vol] 102 mmol/L Normal 98-107 [facility] Comment on above: Performed By: #### B MP, TROPI #### [facility] [address] [place] [id number] Mime Artist: Ramsey Rodriguez MD CO2 [Moles/Vol] 32 mmol/L High 20-31 [facility] Comment on above: Performed By: #### B EDWARD, TROPI #### [address] [id number] Mime Artist: Ramsey Rodriguez MD Creatinine [Mass/Vol] 0.5 mg/dL Low 0.70-1.20 [facility] Comment on above: Performed By: #### B EDWARD, TROPI #### [address] [id number] Mime Artist: Ramsey Rodriguez MD GFR/1.73 sq M.predicted among non-blacks MDRD (S/P/Bld) [Vol rate/Area] mL/min/{1.73_m2} Normal >60 [facility] Comment on above: Result Comment: These results are not intended for use in patients <18 years of age. eGFR results are calculated without a race factor using the 2020 CKD-EPI equation. Careful clinical correlation is recommended, particularly when comparing to results calculated using previous equations. The CKD-EPI equation is less accurate in patients with extremes of muscle mass, extra-renal metabolism of creatine, excessive creatine ingestion, or following therapy that affects renal tubular secretion. Performed By: #### B MP, TROPI #### [address] [id number] Mime Artist: Ramsey Rodriguez MD Glucose [Mass/Vol] 93 mg/dL Normal 74-99 [facility] Comment on above: Performed By: #### B EDWARD TROPI #### [facility] [address] [place] [id number] Mime Artist: Ramsey Rodriguez MD Potassium [Moles/Vol] 3.7 mmol/L Normal 3.7-5.3 [facility] Comment on above: Performed By: #### Nicol LEON TROPI #### [facility] [address] [place] [id number] Mime Artist: Ramsey Rodriguez MD Sodium [Moles/Vol] 140 mmol/L Normal 136-145 [facility] Comment on above: Performed By: #### Nicol LEON TROPI #### [facility] [address] [place] [id number] Mime Artist: Ramsey Rodriguez MD Urea nitrogen [Mass/Vol] 14 mg/dL Normal 8-23 [facility] Comment on above: Performed By: #### Nicol LEON TROPAbram #### [facility] [address] [place] [id number] Mime Artist: Ramsey Rodriguez MD CBC with Diffon 09-02-2023 Abs. Basophil 0.03 k/uL Normal 0.00-0.20 [facility] Comment on above: Performed By: #### B EDWARD TROPI #### [facility] [address] [place] [id number] Mime Artist: Ramsey Rodriguez MD Abs.Imm.Granulocyte 0.04 k/uL Normal 0.00-0.30 [facility] Comment on above: Performed By: #### B EDWARD TROPI #### [facility] [employer] [address] [place] [id number] Mime Artist: Ramsey Rodriguez MD Abs.Neutrophil (Seg) 4.12 k/uL Normal 1.50-8.10 [facility] Comment on above: Performed By: #### B MP, TROPI #### [employer] [address] [place] [id number] Mime Artist: Ramsey Rodriguez MD Basophils/100 WBC (Bld) 1 % Normal 0-2 [facility] Comment on above: Performed By: #### B MP, TROPI #### [facility] [address] [place] [id number] Mime Artist: Ramsey Rodriguez MD Eosinophils (Bld) [#/Vol] 0.34 10*3/uL Normal 0.00-0.44 [facility] Comment on above: Performed By: #### B EDWARD, TROPI #### [facility] [employer] [address] [place] [address] Mime Artist: Ramsey Rodriguez MD Eosinophils/100 WBC (Bld) 6 % High 1-4 [facility] Comment on above: Performed By: #### B EDWARD, TROPI #### [facility] [address] [place] [address] Mime Artist: Ramsey Rodriguez MD Erythrocyte distribution width (RBC) [Ratio] 16.0 % High 11.8-14.4 [facility] Comment on above: Performed By: #### B EDWARD, TROPI #### [facility] [address] [place] [address] Mime Artist: Ramsey Rodriguez MD Hematocrit (Bld) [Volume fraction] 33.4 % Low 40.7-50.3 [facility] Comment on above: Performed By: #### B EDWARD, TROPI #### [facility] [address] [place] [address] Mime Artist: Ramsey Rodriguez MD Hemoglobin (Bld) [Mass/Vol] 10.6 g/dL Low 13.0-17.0 [facility] Comment on above: Performed By: #### B EDWARD, TROPI #### [address] [address] Mime Artist: Ramsey Rodriguez MD Immature granulocytes/100 WBC (Bld) 1 % High 0 [facility] Comment on above: Performed By: #### B MP, TROPI #### [address] [address] Mime Artist: Ramsey Rodriguez MD Lymphocytes (Bld) [#/Vol] 0.96 10*3/uL Low 1.10-3.70 [facility] Comment on above: Performed By: #### B EDWARD, TROPI #### [address] [address] Mime Artist: Ramsey Rodriguez MD Lymphocytes/100 WBC (Bld) 17 % Low 24-43 [facility] Comment on above: Performed By: #### B EDWARD, TROPI #### [address] [address] Mime Artist: Ramsey Rodriguez MD MCH (RBC) [Entitic mass] 30.5 pg Normal 25.2-33.5 [facility] Comment on above: Performed By: #### B EDWARD, TROPI #### [address] [address] Mime Artist: Ramsey Rodriguez MD MCHC (RBC) [Mass/Vol] 31.7 g/dL Normal 28.4-34.8 [facility] Comment on above: Performed By: #### B EDWARD, TROPI #### [address] [address] Mime Artist: Ramsey Rodriguez MD MCV (RBC) [Entitic vol] 96.0 fL Normal 82.6-102.9 [facility] Comment on above: Performed By: #### B MP, TROPI #### [facility] [employer] [address] [place] [address] Mime Artist: Ramsey Rodriguez MD Monocytes (Bld) [#/Vol] 0.33 10*3/uL Normal 0.10-1.20 [facility] Comment on above: Performed By: #### B MP, TROPI #### [address] [address] Mime Artist: Ramsey Rodriguez MD Monocytes/100 WBC (Bld) 6 % Normal 3-12 [facility] Comment on above: Performed By: #### B EDWARD, TROPI #### [address] [address] Mime Artist: Ramsey Rodriguez MD Neutrophil (Seg) 69 % High 36-65 [facility] Comment on above: Performed By: #### B EDWARD, TROPI #### [address] [address] Mime Artist: Ramsey Rodriguez MD NRBC Automated 0.0 per 100 WBC Normal 0.0 [facility] Comment on above: Performed By: #### B EDWARD, TROPI #### [address] [address] Mime Artist: Ramsey Rodriguez MD Platelet mean volume (Bld) [Entitic vol] 10.0 fL Normal 8.1-13.5 [facility] Comment on above: Performed By: #### B EDWARD, TROPI #### [facility] [employer] [address] [place] [address] Mime Artist: Ramsey Rodriguez MD Platelets (Bld) [#/Vol] 190 10*3/uL Normal 138-453 [facility] Comment on above: Performed By: #### B MP, TROPI #### [facility] [employer] [address] [place] [address] Mime Artist: Ramsey Rodriguez MD RBC (Bld) [#/Vol] 3.48 10*6/uL Low 4.21-5.77 [facility] Comment on above: Performed By: #### B MP, TROPI #### [facility] [employer] [address] [place] [address] Mime Artist: Ramsey Rodriguez MD RBC morphology finding Nom (Bld) ANISOCYTOSIS PRESENT Normal [facility] Comment on above: Performed By: #### B MP, TROPI #### [facility] [employer] [address] [place] [address] Mime Artist: Ramsey Rodriguez MD WBC (Bld) [#/Vol] 5.8 10*3/uL Normal 3.5-11.3 [facility] Comment on above: Performed By: #### B EDWARD, TROPI #### [address] [address] Mime Artist: Ramsey Rodriguez MD Heparin Anti-Xaon 09-02-2023 Heparin Anti-Xa <0.10 Normal [facility] Comment on above: Performed By: #### B EDWARD, TROPI #### [address] [address] Mime Artist: Ramsey Rodriguez MD Basic Metabolic Profon 08-31 Anion gap [Moles/Vol] 7 mmol/L Low 9-16 [facility] Comment on above: Performed By: #### B MP, CDP, HEPXA #### [facility] [employer] [address] [place] [address] Mime Artist: Ramsey Rodriguez MD Calcium [Mass/Vol] 8.6 mg/dL Normal 8.6-10.4 [facility] Comment on above: Performed By: #### B MP, CDP, HEPXA #### [facility] [employer] [address] [place] [address] Mime Artist: Ramsey Rodriguez MD Chloride [Moles/Vol] 102 mmol/L Normal 98-107 [facility] Comment on above: Performed By: #### B FABIANO LEON, HEPXA #### [facility] [address] [place] [address] Mime Artist: Ramsey Rodriguez MD CO2 [Moles/Vol] 29 mmol/L Normal 20-31 [facility] Comment on above: Performed By: #### B FABIANO LEON, HEPXA #### [facility] [address] [place] [address] Mime Artist: Ramsey Rodriguez MD Creatinine [Mass/Vol] 0.6 mg/dL Low 0.70-1.20 [facility] Comment on above: Performed By: #### B FABIANO LEON, HEPXA #### [address] [address] Mime Artist: Ramsey Rodriguez MD GFR/1.73 sq M.predicted among non-blacks MDRD (S/P/Bld) [Vol rate/Area] mL/min/{1.73_m2} Normal >60 [facility] Comment on above: Result Comment: These results are not intended for use in patients <18 years of age. eGFR results are calculated without a race factor using the 2020 CKD-EPI equation. Careful clinical correlation is recommended, particularly when comparing to results calculated using previous equations. The CKD-EPI equation is less accurate in patients with extremes of muscle mass, extra-renal metabolism of creatine, excessive creatine ingestion, or following therapy that affects renal tubular secretion. Performed By: #### B FABIANO LEON, HEPXA #### [facility] [address] [place] [address] Mime Artist: Ramsey Rodriguez MD Glucose [Mass/Vol] 98 mg/dL Normal 74-99 [facility] Comment on above: Performed By: #### B FABIANO LEON, HEPXA #### [facility] [address] [place] [address] Mime Artist: Ramsey Rodriguez MD Potassium [Moles/Vol] 4.0 mmol/L Normal 3.7-5.3 [facility] Comment on above: Performed By: #### B MP, CDP, HEPXA #### [address] [address] Mime Artist: Ramsey Rodriguez MD Sodium [Moles/Vol] 138 mmol/L Normal 136-145 [facility] Comment on above: Performed By: #### B MP, CDP, HEPXA #### [place] [address] Mime Artist: Ramsey Rodriguez MD Urea nitrogen [Mass/Vol] 15 mg/dL Normal 8-23 [facility] Comment on above: Performed By: #### B MP, CDP, HEPXA #### [place] [address] Mime Artist: Ramsey Rodriguez MD CBC with Diffon 09-01-2023 Abs. Basophil 0.03 k/uL Normal 0.00-0.20 [facility] Comment on above: Performed By: #### B MP, CDP, HEPXA #### [place] [address] Mime Artist: Ramsey Rodriguez MD Abs.Imm.Granulocyte <0.03 Normal 0.00-0.30 [facility] Comment on above: Performed By: #### B MP, CDP, HEPXA #### [place] [address] Mime Artist: Ramsey Rodriguez MD Abs.Neutrophil (Seg) 5.05 k/uL Normal 1.50-8.10 [facility] Comment on above: Performed By: #### B MP, CDP, HEPXA #### [facility] [employer] [address] [place] [address] Mime Artist: Ramsey Rodriguez MD Basophils/100 WBC (Bld) 0 % Normal 0-2 [facility] Comment on above: Performed By: #### B MP, CDP, HEPXA #### [facility] [employer] [address] [place] [address] Mime Artist: Ramsey Rodriguez MD Eosinophils (Bld) [#/Vol] 0.30 10*3/uL Normal 0.00-0.44 [facility] Comment on above: Performed By: #### B MP, CDP, HEPXA #### [facility] [employer] [address] [place] [address] Mime Artist: Ramsey Rodriguez MD Eosinophils/100 WBC (Bld) 4 % Normal 1-4 [facility] Comment on above: Performed By: #### B MP, CDP, HEPXA #### [facility] [employer] [address] [place] [address] Mime Artist: Ramsey Rodriguez MD Erythrocyte distribution width (RBC) [Ratio] 16.0 % High 11.8-14.4 [facility] Comment on above: Performed By: #### B MP, CDP, HEPXA #### [facility] [employer] [address] [place] [address] Mime Artist: Ramsey Rodriguez MD Hematocrit (Bld) [Volume fraction] 34.5 % Low 40.7-50.3 [facility] Comment on above: Performed By: #### B MP, CDP, HEPXA #### [facility] [employer] [address] [place] [address] Mime Artist: Ramsey Rodriguez MD Hemoglobin (Bld) [Mass/Vol] 10.9 g/dL Low 13.0-17.0 [facility] Comment on above: Performed By: #### B MP, CDP, HEPXA #### [facility] [employer] [address] [place] [address] Mime Artist: Ramsey Rodriguez MD Immature granulocytes/100 WBC (Bld) 0 % Normal 0 [facility] Comment on above: Performed By: #### B MP, CDP, HEPXA #### [address] [address] Mime Artist: Ramsey Rodriguez MD Lymphocytes (Bld) [#/Vol] 2.11 10*3/uL Normal 1.10-3.70 [facility] Comment on above: Performed By: #### B MP, CDP, HEPXA #### [address] [address] Mime Artist: Ramsey Rodriguez MD Lymphocytes/100 WBC (Bld) 27 % Normal 24-43 [facility] Comment on above: Performed By: #### B MP, CDP, HEPXA #### [address] [address] Mime Artist: Ramsey Rodriguez MD MCH (RBC) [Entitic mass] 30.9 pg Normal 25.2-33.5 [facility] Comment on above: Performed By: #### B MP, CDP, HEPXA #### [address] [address] Mime Artist: Ramsey Rodriguez MD MCHC (RBC) [Mass/Vol] 31.6 g/dL Normal 28.4-34.8 [facility] Comment on above: Performed By: #### B MP, CDP, HEPXA #### [address] [address] Mime Artist: Ramsey Rodriguez MD MCV (RBC) [Entitic vol] 97.7 fL Normal 82.6-102.9 [facility] Comment on above: Performed By: #### B MP, CDP, HEPXA #### [address] [address] Mime Artist: Ramsey Rodriguez MD Monocytes (Bld) [#/Vol] 0.39 10*3/uL Normal 0.10-1.20 [facility] Comment on above: Performed By: #### B MP, CDP, HEPXA #### [address] [place] [place] [address] Mime Artist: Ramsey Rodriguez MD Monocytes/100 WBC (Bld) 5 % Normal 3-12 [facility] Comment on above: Performed By: #### B MP, CDP, HEPXA #### [address] [address] Mime Artist: Ramsey Rodriguez MD Neutrophil (Seg) 64 % Normal 36-65 [facility] Comment on above: Performed By: #### B MP, CDP, HEPXA #### [address] [address] Mime Artist: Ramsey Rodriguez MD NRBC Automated 0.0 per 100 WBC Normal 0.0 [facility] Comment on above: Performed By: #### B MP, CDP, HEPXA #### [facility] [employer] [address] [place] [address] Mime Artist: Ramsey Rodriguez MD Platelet mean volume (Bld) [Entitic vol] 10.5 fL Normal 8.1-13.5 [facility] Comment on above: Performed By: #### B MP, CDP, HEPXA #### [facility] [employer] [address] [place] [address] Mime Artist: Ramsey Rodriguez MD Platelets (Bld) [#/Vol] 188 10*3/uL Normal 138-453 [facility] Comment on above: Performed By: #### B MP, CDP, HEPXA #### [facility] [address] [place] [address] Mime Artist: Ramsey Rodriguez MD RBC (Bld) [#/Vol] 3.53 10*6/uL Low 4.21-5.77 [facility] Comment on above: Performed By: #### B MP, CDP, HEPXA #### [facility] [employer] [address] [place] [address] Mime Artist: Ramsey Rodriguez MD RBC morphology finding Nom (Bld) ANISOCYTOSIS PRESENT Normal [facility] Comment on above: Performed By: #### B MP, CDP, HEPXA #### [facility] [address] [place] [address] Mime Artist: Ramsey Rodriguez MD WBC (Bld) [#/Vol] 7.9 10*3/uL Normal 3.5-11.3 [facility] Comment on above: Performed By: #### B MP, CDP, HEPXA #### [facility] [address] [place] [address] Mime Artist: Ramsey Rodriguez MD Heparin Anti-Xaon 09-01-2023 Heparin Anti-Xa 0.43 IU/L Normal [facility] Comment on above: Performed By: #### B MP, CDP, HEPXA #### [facility] [employer] [address] [place] [address] Mime Artist: Ramsey Rodriguez MD Basic Metabolic Profon 08-30 Anion gap [Moles/Vol] 8 mmol/L Low 9-16 [facility] Comment on above: Performed By: #### B MP, CDP, HEPXA #### [facility] [employer] [address] [place] [address] Mime Artist: Ramsey Rodriguez MD Calcium [Mass/Vol] 8.2 mg/dL Low 8.6-10.4 [facility] Comment on above: Performed By: #### B MP, CDP, HEPXA #### [facility] [address] [place] [address] Mime Artist: Ramsey Rodriguez MD Chloride [Moles/Vol] 103 mmol/L Normal 98-107 [facility] Comment on above: Performed By: #### B MP, CDP, HEPXA #### [facility] [employer] [address] [place] [address] Mime Artist: Ramsey Rodriguez MD CO2 [Moles/Vol] 28 mmol/L Normal 20-31 [facility] Comment on above: Performed By: #### B FABIANO LEON, HEPXA #### [facility] [place] [address] Mime Artist: Ramsey Rodriguez MD Creatinine [Mass/Vol] 0.6 mg/dL Low 0.70-1.20 [facility] Comment on above: Performed By: #### B EDWARD CDP, HEPXA #### [facility] [employer] [address] [place] [address] Mime Artist: Ramsey Rodriguez MD GFR/1.73 sq M.predicted among non-blacks MDRD (S/P/Bld) [Vol rate/Area] mL/min/{1.73_m2} Normal >60 [facility] Comment on above: Result Comment: These results are not intended for use in patients <18 years of age. eGFR results are calculated without a race factor using the 2020 CKD-EPI equation. Careful clinical correlation is recommended, particularly when comparing to results calculated using previous equations. The CKD-EPI equation is less accurate in patients with extremes of muscle mass, extra-renal metabolism of creatine, excessive creatine ingestion, or following therapy that affects renal tubular secretion. Performed By: #### B FABIANO LEON, HEPXA #### [facility] [employer] [address] [place] [address] Mime Artist: Ramsey Rodriguez MD Glucose [Mass/Vol] 104 mg/dL High 74-99 [facility] Comment on above: Performed By: #### B FABIANO LEON, HEPXA #### [facility] [place] [address] Mime Artist: Ramsey Rodriguez MD Potassium [Moles/Vol] 3.5 mmol/L Low 3.7-5.3 [facility] Comment on above: Performed By: #### B FABIANO LEON, HEPXA #### [facility] [employer] [address] [place] [address] Mime Artist: Ramsey Rodriguez MD Sodium [Moles/Vol] 139 mmol/L Normal 136-145 [facility] Comment on above: Performed By: #### B FABIANO LEON, HEPXA #### [address] [address] Mime Artist: Ramsey Rodriguez MD Urea nitrogen [Mass/Vol] 17 mg/dL Normal 8-23 [facility] Comment on above: Performed By: #### B FABIANO LEON, HEPXA #### [address] [address] Mime Artist: Ramsey Rodriguez MD CBC with Diffon 08-31-2023 Abs. Basophil <0.03 Normal 0.00-0.20 [facility] Comment on above: Performed By: #### T ROPI #### [address] [address] Mime Artist: Ramsey Rodriguez MD Abs.Imm.Granulocyte 0.03 k/uL Normal 0.00-0.30 [facility] Comment on above: Performed By: #### T ROPI #### [address] [address] Mime Artist: Ramsey Rodriguez MD Abs.Neutrophil (Seg) 4.38 k/uL Normal 1.50-8.10 [facility] Comment on above: Performed By: #### T ROPI #### [address] [address] Mime Artist: Ramsey Rodriguez MD Basophils/100 WBC (Bld) 0 % Normal 0-2 [facility] Comment on above: Performed By: #### T ROPI #### [address] [address] Mime Artist: Ramsey Rodriguez MD Eosinophils (Bld) [#/Vol] 0.21 10*3/uL Normal 0.00-0.44 [facility] Comment on above: Performed By: #### T ROPI #### [place] [address] Mime Artist: Ramsey Rodriguez MD Eosinophils/100 WBC (Bld) 3 % Normal 1-4 [facility] Comment on above: Performed By: #### T ROPI #### [place] [address] Mime Artist: Ramsey Rodriguez MD Erythrocyte distribution width (RBC) [Ratio] 15.9 % High 11.8-14.4 [facility] Comment on above: Performed By: #### T ROPI #### [place] [address] Mime Artist: Ramsey Rodriguez MD Hematocrit (Bld) [Volume fraction] 33.3 % Low 40.7-50.3 [facility] Comment on above: Performed By: #### T ROPI #### [place] [address] Mime Artist: Ramsey Rodriguez MD Hemoglobin (Bld) [Mass/Vol] 10.4 g/dL Low 13.0-17.0 [facility] Comment on above: Performed By: #### T ROPI #### [place] [address] Mime Artist: Ramsey Rodriguez MD Immature granulocytes/100 WBC (Bld) 1 % High 0 [facility] Comment on above: Performed By: #### T ROPI #### [place] [address] Mime Artist: Ramsey Rodriguez MD Lymphocytes (Bld) [#/Vol] 1.31 10*3/uL Normal 1.10-3.70 [facility] Comment on above: Performed By: #### T ROPI #### [address] [address] Mime Artist: Ramsey Rodriguez MD Lymphocytes/100 WBC (Bld) 21 % Low 24-43 [facility] Comment on above: Performed By: #### T ROPI #### [address] [address] Mime Artist: Ramsey Rodriguez MD MCH (RBC) [Entitic mass] 30.9 pg Normal 25.2-33.5 [facility] Comment on above: Performed By: #### T ROPI #### [address] [address] Mime Artist: Ramsey Rodriguez MD MCHC (RBC) [Mass/Vol] 31.2 g/dL Normal 28.4-34.8 [facility] Comment on above: Performed By: #### T ROPI #### [address] [address] Mime Artist: Ramsey Rodriguez MD MCV (RBC) [Entitic vol] 98.8 fL Normal 82.6-102.9 [facility] Comment on above: Performed By: #### T ROPI #### [address] [address] Mime Artist: Ramsey Rodriguez MD Monocytes (Bld) [#/Vol] 0.31 10*3/uL Normal 0.10-1.20 [facility] Comment on above: Performed By: #### T ROPI #### [address] [address] Mime Artist: Ramsey Rodriguez MD Monocytes/100 WBC (Bld) 5 % Normal 3-12 [facility] Comment on above: Performed By: #### T ROPI #### [address] [address] Mime Artist: Ramsey Rodriguez MD Neutrophil (Seg) 70 % High 36-65 [facility] Comment on above: Performed By: #### T ROPI #### [place] [address] Mime Artist: Ramsey Rodriguez MD NRBC Automated 0.0 per 100 WBC Normal 0.0 [facility] Comment on above: Performed By: #### T ROPI #### [place] [address] Mime Artist: Ramsey Rodriguez MD Platelet mean volume (Bld) [Entitic vol] 10.4 fL Normal 8.1-13.5 [facility] Comment on above: Performed By: #### T ROPI #### [place] [address] Mime Artist: Ramsey Rodriguez MD Platelets (Bld) [#/Vol] 160 10*3/uL Normal 138-453 [facility] Comment on above: Performed By: #### T ROPI #### [place] [address] Mime Artist: Ramsey Rodriguez MD RBC (Bld) [#/Vol] 3.37 10*6/uL Low 4.21-5.77 [facility] Comment on above: Performed By: #### T ROPI #### [place] [address] Mime Artist: Ramsey Rodriguez MD RBC morphology finding Nom (Bld) ANISOCYTOSIS PRESENT Normal [facility] Comment on above: Performed By: #### T ROPI #### [place] [address] Mime Artist: Ramsey Rodriguez MD WBC (Bld) [#/Vol] 6.3 10*3/uL Normal 3.5-11.3 [facility] Comment on above: Performed By: #### T ROPI #### [address] [address] Mime Artist: Ramsey Rodriguez MD Heparin Anti-Xaon 08-31-2023 Heparin Anti-Xa 0.39 IU/L Normal [facility] Comment on above: Performed By: #### H EPXA, CBC, PTT, PT #### [address] [address] Mime Artist: Ramsey Rodriguez MD Basic Metabolic Profon 08-29 Anion gap [Moles/Vol] 7 mmol/L Low 9-16 [facility] Comment on above: Performed By: #### B MP, CDP, HEPXA #### [facility] [employer] [address] [place] [address] Mime Artist: Ramsey Rodriguez MD Calcium [Mass/Vol] 8.2 mg/dL Low 8.6-10.4 [facility] Comment on above: Performed By: #### B MP, CDP, HEPXA #### [facility] [employer] [address] [place] [address] Mime Artist: Ramsey Rodriguez MD Chloride [Moles/Vol] 104 mmol/L Normal 98-107 [facility] Comment on above: Performed By: #### B MP, CDP, HEPXA #### [facility] [employer] [address] [place] [address] Mime Artist: Ramsey Rodriguez MD CO2 [Moles/Vol] 29 mmol/L Normal 20-31 [facility] Comment on above: Performed By: #### B MP, CDP, HEPXA #### [facility] [address] [place] [address] Mime Artist: Ramsey Rodriguez MD Creatinine [Mass/Vol] 0.7 mg/dL Normal 0.70-1.20 [facility] Comment on above: Performed By: #### B MP, CDP, HEPXA #### [facility] [address] [place] [address] Mime Artist: Ramsey Rodriguez MD GFR/1.73 sq M.predicted among non-blacks MDRD (S/P/Bld) [Vol rate/Area] mL/min/{1.73_m2} Normal >60 [facility] Comment on above: Result Comment: These results are not intended for use in patients <18 years of age. eGFR results are calculated without a race factor using the 2020 CKD-EPI equation. Careful clinical correlation is recommended, particularly when comparing to results calculated using previous equations. The CKD-EPI equation is less accurate in patients with extremes of muscle mass, extra-renal metabolism of creatine, excessive creatine ingestion, or following therapy that affects renal tubular secretion. Performed By: #### B FABIANO LEON, HEPXA #### [facility] [address] [place] [address] Mime Artist: Ramsey Rodriguez MD Glucose [Mass/Vol] 94 mg/dL Normal 74-99 [facility] Comment on above: Performed By: #### B FABIANO LEON, HEPXA #### [facility] [address] [place] [address] Mime Artist: Ramsey Rodriguez MD Potassium [Moles/Vol] 3.6 mmol/L Low 3.7-5.3 [facility] Comment on above: Performed By: #### B FABIANO LEON, HEPXA #### [facility] [address] [place] [address] Mime Artist: Ramsey Rodriguez MD Sodium [Moles/Vol] 140 mmol/L Normal 136-145 [facility] Comment on above: Performed By: #### B EDWARD CDP, HEPXA #### [facility] [address] [place] [address] Mime Artist: Ramsye Rodriguez MD Urea nitrogen [Mass/Vol] 14 mg/dL Normal 8-23 [facility] Comment on above: Performed By: #### B EDWARD, CDP, HEPXA #### [facility] [address] [place] [address] Mime Artist: Ramsey Rodriguez MD CBC with Diffon 08-30-2023 Abs. Basophil <0.03 Normal 0.00-0.20 [facility] Comment on above: Performed By: #### B MP, CDP, HEPXA #### [address] [address] Mime Artist: Ramsey Rodriguez MD Abs.Imm.Granulocyte 0.03 k/uL Normal 0.00-0.30 [facility] Comment on above: Performed By: #### B MP, CDP, HEPXA #### [address] [address] Mime Artist: Ramsey Rodriguez MD Abs.Neutrophil (Seg) 3.72 k/uL Normal 1.50-8.10 [facility] Comment on above: Performed By: #### B MP, CDP, HEPXA #### [facility] [address] [place] [address] Mime Artist: Ramsey Rodriguez MD Basophils/100 WBC (Bld) 0 % Normal 0-2 [facility] Comment on above: Performed By: #### B MP, CDP, HEPXA #### [facility] [employer] [address] [place] [address] Mime Artist: Ramsey Rodriguez MD Eosinophils (Bld) [#/Vol] 0.22 10*3/uL Normal 0.00-0.44 [facility] Comment on above: Performed By: #### B MP, CDP, HEPXA #### [facility] [employer] [address] [place] [address] Mime Artist: Ramsey Rodriguez MD Eosinophils/100 WBC (Bld) 4 % Normal 1-4 [facility] Comment on above: Performed By: #### B MP, CDP, HEPXA #### [facility] [address] [place] [address] Mime Artist: Ramsey Rodriguez MD Erythrocyte distribution width (RBC) [Ratio] 15.8 % High 11.8-14.4 [facility] Comment on above: Performed By: #### B MP, CDP, HEPXA #### [address] [address] Mime Artist: Ramsey Rodriguez MD Hematocrit (Bld) [Volume fraction] 31.1 % Low 40.7-50.3 [facility] Comment on above: Performed By: #### B MP, CDP, HEPXA #### [address] [address] Mime Artist: Ramsey Rodriguez MD Hemoglobin (Bld) [Mass/Vol] 10.1 g/dL Low 13.0-17.0 [facility] Comment on above: Performed By: #### B MP, CDP, HEPXA #### [address] [address] Mime Artist: Ramsey Rodriguez MD Immature granulocytes/100 WBC (Bld) 1 % High 0 [facility] Comment on above: Performed By: #### B MP, CDP, HEPXA #### [address] [address] Mime Artist: Ramsey Rodriguez MD Lymphocytes (Bld) [#/Vol] 1.25 10*3/uL Normal 1.10-3.70 [facility] Comment on above: Performed By: #### B MP, CDP, HEPXA #### [address] [address] Mime Artist: Ramsey Rodriguez MD Lymphocytes/100 WBC (Bld) 22 % Low 24-43 [facility] Comment on above: Performed By: #### B MP, CDP, HEPXA #### [facility] [employer] [address] [place] [address] Mime Artist: Ramsey Rodriguez MD MCH (RBC) [Entitic mass] 30.6 pg Normal 25.2-33.5 [facility] Comment on above: Performed By: #### B MP, CDP, HEPXA #### [facility] [employer] [address] [place] [address] Mime Artist: Ramsey Rodriguez MD MCHC (RBC) [Mass/Vol] 32.5 g/dL Normal 28.4-34.8 [facility] Comment on above: Performed By: #### B MP, CDP, HEPXA #### [address] [address] Mime Artist: Ramsey Rodriguez MD MCV (RBC) [Entitic vol] 94.2 fL Normal 82.6-102.9 [facility] Comment on above: Performed By: #### B MP, CDP, HEPXA #### [facility] [employer] [address] [place] [address] Mime Artist: Ramsey Rodriguez MD Monocytes (Bld) [#/Vol] 0.35 10*3/uL Normal 0.10-1.20 [facility] Comment on above: Performed By: #### B MP, CDP, HEPXA #### [facility] [employer] [address] [place] [address] Mime Artist: Ramsey Rodriguez MD Monocytes/100 WBC (Bld) 6 % Normal 3-12 [facility] Comment on above: Performed By: #### B MP, CDP, HEPXA #### [facility] [employer] [address] [place] [address] Mime Artist: Ramsey Rodriguez MD Neutrophil (Seg) 67 % High 36-65 [facility] Comment on above: Performed By: #### B MP, CDP, HEPXA #### [facility] [employer] [address] [place] [address]807 Mime Artist: Ramsey Rodriguez MD NRBC Automated 0.0 per 100 WBC Normal 0.0 [facility] Comment on above: Performed By: #### B MP, CDP, HEPXA #### [address] [address] Mime Artist: Ramsey Rodriguez MD Platelet mean volume (Bld) [Entitic vol] 10.2 fL Normal 8.1-13.5 [facility] Comment on above: Performed By: #### B MP, CDP, HEPXA #### [address] [address] Mime Artist: Ramsey Rodriguez MD Platelets (Bld) [#/Vol] 158 10*3/uL Normal 138-453 [facility] Comment on above: Performed By: #### B MP, CDP, HEPXA #### [address] [address] Mime Artist: Ramsey Rodriguez MD RBC (Bld) [#/Vol] 3.30 10*6/uL Low 4.21-5.77 [facility] Comment on above: Performed By: #### B MP, CDP, HEPXA #### [address] [address] Mime Artist: Ramsey Rodriguez MD RBC morphology finding Nom (Bld) ANISOCYTOSIS PRESENT Normal [facility] Comment on above: Performed By: #### B MP, CDP, HEPXA #### [address] [address] Mime Artist: Ramsey Rodriguez MD WBC (Bld) [#/Vol] 5.6 10*3/uL Normal 3.5-11.3 [facility] Comment on above: Performed By: #### B MP, CDP, HEPXA #### [address] [address] Mime Artist: Ramsey Rodriguez MD Heparin Anti-Xaon 05-10-2024 Heparin Anti-Xa 0.27 IU/L Normal [facility] Comment on above: Performed By: #### B EDWARD CDP, HEPXA #### [facility] [employer] [address] [place] [address] Mime Artist: Ramsey Rodriguez MD Heparin Anti-Xa 0.42 IU/L Normal [facility] Comment on above: Performed By: #### B EDWARD, CDP, HEPXA #### [facility] [address] [place] [address] Mime Artist: Ramsey Rodriguez MD Heparin Anti-Xa 0.43 IU/L Normal [facility] Comment on above: Performed By: #### H EPXA, CBC, PTT, PT #### [facility] [address] [place] [address] Mime Artist: Ramsey Rodriguez MD Troponinon 08-30-2023 Troponin, High Sens 138 ng/L Critically high 0-22 [facility] Comment on above: Result Comment: High Sensitivity Troponin values cannot be compared with other Troponin methodologies. Previous Alert Value Reported Performed By: #### B FABIANO LEON, HEPXA #### [facility] [employer] [address] [place] [address] Mime Artist: Ramsey Rodriguez MD Basic Metabolic Profon 08-28 Anion gap [Moles/Vol] 6 mmol/L Low 9-16 [facility] Comment on above: Performed By: #### B MP, CDP, HEPXA #### [facility] [address] [place] [address] Mime Artist: Ramsey Rodriguez MD Calcium [Mass/Vol] 8.2 mg/dL Low 8.6-10.4 [facility] Comment on above: Performed By: #### B EDWARD, CDP, HEPXA #### [facility] [address] [place] [address] Mime Artist: Ramsey Rodriguez MD Chloride [Moles/Vol] 106 mmol/L Normal 98-107 [facility] Comment on above: Performed By: #### B EDWARD CDP, HEPXA #### [facility] [address] [place] [address] Mime Artist: Ramsey Rodriguez MD CO2 [Moles/Vol] 29 mmol/L Normal 20-31 [facility] Comment on above: Performed By: #### B MP CDP, HEPXA #### [facility] [address] [place] [address] Mime Artist: Ramsey Rodriguez MD Creatinine [Mass/Vol] 0.6 mg/dL Low 0.70-1.20 [facility] Comment on above: Performed By: #### B FABIANO LEON, HEPXA #### [address] [address] Mime Artist: Ramsey Rodriguez MD GFR/1.73 sq M.predicted among non-blacks MDRD (S/P/Bld) [Vol rate/Area] mL/min/{1.73_m2} Normal >60 [facility] Comment on above: Result Comment: These results are not intended for use in patients <18 years of age. eGFR results are calculated without a race factor using the 2020 CKD-EPI equation. Careful clinical correlation is recommended, particularly when comparing to results calculated using previous equations. The CKD-EPI equation is less accurate in patients with extremes of muscle mass, extra-renal metabolism of creatine, excessive creatine ingestion, or following therapy that affects renal tubular secretion. Performed By: #### B FABIANO LEON, HEPXA #### [facility] [address] [place] [address] Mime Artist: Ramsey Rodriguez MD Glucose [Mass/Vol] 85 mg/dL Normal 74-99 [facility] Comment on above: Performed By: #### B EDWARD, CDP, HEPXA #### [facility] [address] [place] [address] Mime Artist: Ramsey Rodriguez MD Potassium [Moles/Vol] 3.9 mmol/L Normal 3.7-5.3 [facility] Comment on above: Performed By: #### B MP, CDP, HEPXA #### [address] [address] Mime Artist: Ramsey Rodriguez MD Sodium [Moles/Vol] 141 mmol/L Normal 136-145 [facility] Comment on above: Performed By: #### B MP, CDP, HEPXA #### [address] [address] Mime Artist: Ramsey Rodriguez MD Urea nitrogen [Mass/Vol] 9 mg/dL Normal 8-23 [facility] Comment on above: Performed By: #### B MP, CDP, HEPXA #### [address] [address] Mime Artist: Ramsey Rodriguez MD CBC with Diffon 08-29-2023 Abs. Basophil <0.03 Normal 0.00-0.20 [facility] Comment on above: Performed By: #### B MP, CDP, HEPXA #### [address] [address] Mime Artist: Ramsey Rodriguez MD Abs.Imm.Granulocyte <0.03 Normal 0.00-0.30 [facility] Comment on above: Performed By: #### B MP, CDP, HEPXA #### [address] [address] Mime Artist: Ramsey Rodriguez MD Abs.Neutrophil (Seg) 3.04 k/uL Normal 1.50-8.10 [facility] Comment on above: Performed By: #### B MP, CDP, HEPXA #### [address] [address] Mime Artist: Ramsey Rodriguez MD Basophils/100 WBC (Bld) 0 % Normal 0-2 [facility] Comment on above: Performed By: #### B MP, CDP, HEPXA #### [facility] [employer] [address] [place] [address] Mime Artist: Ramsey Rodriguez MD Eosinophils (Bld) [#/Vol] 0.28 10*3/uL Normal 0.00-0.44 [facility] Comment on above: Performed By: #### B MP, CDP, HEPXA #### [facility] [employer] [address] [place] [address] Mime Artist: Ramsey Rodriguez MD Eosinophils/100 WBC (Bld) 6 % High 1-4 [facility] Comment on above: Performed By: #### B MP, CDP, HEPXA #### [address] [address] Mime Artist: Ramsey Rodriguez MD Erythrocyte distribution width (RBC) [Ratio] 15.7 % High 11.8-14.4 [facility] Comment on above: Performed By: #### B MP, CDP, HEPXA #### [address] [address] Mime Artist: Ramsey Rodriguez MD Hematocrit (Bld) [Volume fraction] 32.4 % Low 40.7-50.3 [facility] Comment on above: Performed By: #### B MP, CDP, HEPXA #### [facility] [employer] [address] [place] [address] Mime Artist: Ramsey Rodriguez MD Hemoglobin (Bld) [Mass/Vol] 10.2 g/dL Low 13.0-17.0 [facility] Comment on above: Performed By: #### B MP, CDP, HEPXA #### [facility] [address] [place] [address] Mime Artist: Ramsey Rodriguez MD Immature granulocytes/100 WBC (Bld) 0 % Normal 0 [facility] Comment on above: Performed By: #### B MP, CDP, HEPXA #### [address] [place] [place] [address] Mime Artist: Ramsey Rodriguez MD Lymphocytes (Bld) [#/Vol] 1.36 10*3/uL Normal 1.10-3.70 [facility] Comment on above: Performed By: #### B MP, CDP, HEPXA #### [address] [address] Mime Artist: Ramsey Rodriguez MD Lymphocytes/100 WBC (Bld) 27 % Normal 24-43 [facility] Comment on above: Performed By: #### B MP, CDP, HEPXA #### [address] [address] Mime Artist: Ramsey Rodriguez MD MCH (RBC) [Entitic mass] 30.8 pg Normal 25.2-33.5 [facility] Comment on above: Performed By: #### B MP, CDP, HEPXA #### [address] [address] Mime Artist: Ramsey Rodriguez MD MCHC (RBC) [Mass/Vol] 31.5 g/dL Normal 28.4-34.8 [facility] Comment on above: Performed By: #### B MP, CDP, HEPXA #### [address] [address] Mime Artist: Ramsey Rodriguez MD MCV (RBC) [Entitic vol] 97.9 fL Normal 82.6-102.9 [facility] Comment on above: Performed By: #### B MP, CDP, HEPXA #### [address] [address] Mime Artist: Ramsey Rodriguez MD Monocytes (Bld) [#/Vol] 0.37 10*3/uL Normal 0.10-1.20 [facility] Comment on above: Performed By: #### B MP, CDP, HEPXA #### [address] [address] Mime Artist: Ramsey Rodriguez MD Monocytes/100 WBC (Bld) 7 % Normal 3-12 [facility] Comment on above: Performed By: #### B MP, CDP, HEPXA #### [address] [address] Mime Artist: Ramsey Rodriguez MD Neutrophil (Seg) 60 % Normal 36-65 [facility] Comment on above: Performed By: #### B MP, CDP, HEPXA #### [address] [address] Mime Artist: Ramsey Rodriguez MD NRBC Automated 0.0 per 100 WBC Normal 0.0 [facility] Comment on above: Performed By: #### B MP, CDP, HEPXA #### [address] [address] Mime Artist: Ramsey Rodriguez MD Platelet mean volume (Bld) [Entitic vol] 10.4 fL Normal 8.1-13.5 [facility] Comment on above: Performed By: #### B MP, CDP, HEPXA #### [address] [address] Mime Artist: Ramsey Rodriguez MD Platelets (Bld) [#/Vol] 144 10*3/uL Normal 138-453 [facility] Comment on above: Performed By: #### B MP, CDP, HEPXA #### [facility] [employer] [address] [place] [address] Mime Artist: Ramsey Rodriguez MD RBC (Bld) [#/Vol] 3.31 10*6/uL Low 4.21-5.77 [facility] Comment on above: Performed By: #### B MP, CDP, HEPXA #### [address] [address] Mime Artist: Ramsey Rodriguez MD RBC morphology finding Nom (Bld) ANISOCYTOSIS PRESENT Normal [facility] Comment on above: Performed By: #### B MP, CDP, HEPXA #### [address] [address] Mime Artist: Ramsey Rodriguez MD WBC (Bld) [#/Vol] 5.1 10*3/uL Normal 3.5-11.3 [facility] Comment on above: Performed By: #### B MP, CDP, HEPXA #### [address] [address] Mime Artist: Ramsey Rodriguez MD Heparin Anti-Xaon 08-29-2023 Heparin Anti-Xa 0.40 IU/L Normal [facility] Comment on above: Performed By: #### B MP, CDP, HEPXA #### [address] [address] Mime Artist: Ramsey Rodriguez MD Heparin Anti-Xa 0.38 IU/L Normal [facility] Comment on above: Performed By: #### B MP, TROPI #### [address] [address] Mime Artist: Ramsey Rodriguez MD Heparin Anti-Xa 0.35 IU/L Normal [facility] Comment on above: Performed By: #### H EPXA, CBC, PTT, PT #### [address] [address] Mime Artist: Ramsey Rodriguez MD Magnesiumon 08-29-2023 Magnesium [Mass/Vol] 2.1 mg/dL Normal 1.6-2.4 [facility] Comment on above: Performed By: #### B MP, CDP, HEPXA #### [address] [address] Mime Artist: Ramsey Rodriguez MD Phosphorus, Inorg.on 024 Phosphorus, Inorg. 2.7 mg/dL Normal 2.5-4.5 [facility] Comment on above: Performed By: #### B FABIANO LEON, HEPXA #### [facility] [address] [place] [address] Mime Artist: Ramsey Rodriguez MD Troponinon 08-29-2023 Troponin, High Sens 162 ng/L Critically high 0-22 [facility] Comment on above: Result Comment: High Sensitivity Troponin values cannot be compared with other Troponin methodologies. Previous Alert Value Reported Performed By: #### B FABIANO LEON, HEPXA #### [facility] [address] [place] [address] Mime Artist: Ramsey Rodriguez MD Troponin, High Sens 159 ng/L Critically high 0-22 [facility] Comment on above: Result Comment: High Sensitivity Troponin values cannot be compared with other Troponin methodologies. Previous Alert Value Reported Performed By: #### B FABIANO LEON, HEPXA #### [facility] [address] [place] [address] Mime Artist: Ramsey Rodriguez MD Troponin, High Sens 142 ng/L Critically high 022 [facility] Comment on above: Result Comment: High Sensitivity Troponin values cannot be compared with other Troponin methodologies. Previous Alert Value Reported Performed By: #### T ROPI #### [facility] [address] [place] [address] Mime Artist: Ramsey Rodriguez MD APTTon 08-28-2023 aPTT Coag (Bld) [Time] 28.4 s Normal 23.0-36.5 [facility] Comment on above: Result Comment: IV Heparin Therapy Range: 66.0-92.0 sec Performed By: #### H EPXA, CBC, PTT, PT #### [facility] [address] [place] [address] Mime Artist: Ramsey Rodriguez MD Basic Metabolic Profon 08-27 Anion gap [Moles/Vol] 8 mmol/L Low 9-16 [facility] Comment on above: Performed By: #### T ROPI #### [facility] [address] [place] [address] Mime Artist: Ramsey Rodriguez MD Anion gap [Moles/Vol] 8 mmol/L Low 9-16 [facility] Comment on above: Performed By: #### B EDWARD TROPI #### [facility] [address] [place] [address] Mime Artist: Ramsey Rodriguez MD Calcium [Mass/Vol] 7.9 mg/dL Low 8.6-10.4 [facility] Comment on above: Performed By: #### T ROPI #### [facility] [address] [place] [address] Mime Artist: Ramsey Rodriguez MD Calcium [Mass/Vol] 8.3 mg/dL Low 8.6-10.4 [facility] Comment on above: Performed By: #### B EDWARD TROPI #### [facility] [address] [place] [address] Mime Artist: Ramsey Rodriguez MD Chloride [Moles/Vol] 105 mmol/L Normal 98-107 [facility] Comment on above: Performed By: #### T ROPI #### [facility] [address] [place] [address] Mime Artist: Ramsey Rodriguez MD Chloride [Moles/Vol] 103 mmol/L Normal 98-107 [facility] Comment on above: Performed By: #### B MP, TROPI #### [facility] [address] [place] [address] Mime Artist: Ramsey Rodriguez MD CO2 [Moles/Vol] 26 mmol/L Normal 20-31 [facility] Comment on above: Performed By: #### T ROPI #### [facility] [address] [place] [address] Mime Artist: Ramsey Rodriguez MD CO2 [Moles/Vol] 27 mmol/L Normal 20-31 [facility] Comment on above: Performed By: #### B MP, TROPI #### [facility] [address] [place] [address] Mime Artist: Ramsey Rodriguez MD Creatinine [Mass/Vol] 0.5 mg/dL Low 0.70-1.20 [facility] Comment on above: Performed By: #### T ROPI #### [facility] [address] [place] [address] Mime Artist: Ramsey Rodriguez MD Creatinine [Mass/Vol] 0.5 mg/dL Low 0.70-1.20 [facility] Comment on above: Performed By: #### B MP, TROPI #### [facility] [address] [place] [address] Mime Artist: Ramsey Rodriguez MD GFR/1.73 sq M.predicted among non-blacks MDRD (S/P/Bld) [Vol rate/Area] mL/min/{1.73_m2} Normal >60 [facility] Comment on above: Result Comment: These results are not intended for use in patients <18 years of age. eGFR results are calculated without a race factor using the 2020 CKD-EPI equation. Careful clinical correlation is recommended, particularly when comparing to results calculated using previous equations. The CKD-EPI equation is less accurate in patients with extremes of muscle mass, extra-renal metabolism of creatine, excessive creatine ingestion, or following therapy that affects renal tubular secretion. Performed By: #### T ROPI #### [address] [address] Mime Artist: Ramsey Rodriguez MD GFR/1.73 sq M.predicted among non-blacks MDRD (S/P/Bld) [Vol rate/Area] mL/min/{1.73_m2} Normal >60 [facility] Comment on above: Result Comment: These results are not intended for use in patients <18 years of age. eGFR results are calculated without a race factor using the 1 CKD-EPI equation. Careful clinical correlation is recommended, particularly when comparing to results calculated using previous equations. The CKD-EPI equation is less accurate in patients with extremes of muscle mass, extra-renal metabolism of creatine, excessive creatine ingestion, or following therapy that affects renal tubular secretion. Performed By: #### B KAITLYNN LEON #### [facility] [address] [place] [address] Mime Artist: Ramsey Rodriguez MD Glucose [Mass/Vol] 106 mg/dL High 7499 [facility] Comment on above: Performed By: #### T ALLA #### [address] [address] Mime Artist: Ramsey Rodriguez MD Glucose [Mass/Vol] 112 mg/dL High 74-99 [facility] Comment on above: Performed By: #### B KAITLYNN LEON #### [facility] [address] [place] [address] Mime Artist: Ramsey Rodriguez MD Potassium [Moles/Vol] 3.5 mmol/L Low 3.7-5.3 [facility] Comment on above: Performed By: #### T ROPAbram #### [facility] [address] [place] [address] Mime Artist: Ramsey Rodriguez MD Potassium [Moles/Vol] 3.7 mmol/L Normal 3.7-5.3 [facility] Comment on above: Performed By: #### B KAITLYNN LEON #### [facility] [address] [place] [address] Mime Artist: Ramsey Rodriguez MD Sodium [Moles/Vol] 139 mmol/L Normal 136-145 [facility] Comment on above: Performed By: #### T ROPI #### [facility] [address] [place] [address] Mime Artist: Ramsey Rodriguez MD Sodium [Moles/Vol] 138 mmol/L Normal 136-145 [facility] Comment on above: Performed By: #### B MP, TROPI #### [facility] [address] [place] [address] Mime Artist: Ramsey Rodriguez MD Urea nitrogen [Mass/Vol] 10 mg/dL Normal - [facility] Comment on above: Performed By: #### T ROPI #### [facility] [address] [place] [address] Mime Artist: Ramsey Rodriguez MD Urea nitrogen [Mass/Vol] 9 mg/dL Normal - [facility] Comment on above: Performed By: #### B EDWARD, TROPI #### [facility] [address] [place] [address] Mime Artist: Ramsey Rodriguez MD CBCon 08-28-2023 Erythrocyte distribution width (RBC) [Ratio] 15.6 % High 11.8-14.4 [facility] Comment on above: Performed By: #### H EPXA, CBC, PTT, PT #### [facility] [address] [place] [address] Mime Artist: Ramsey Rodriguez MD Hematocrit (Bld) [Volume fraction] 34.1 % Low 40.7-50.3 [facility] Comment on above: Performed By: #### H EPXA, CBC, PTT, PT #### [facility] [address] [place] [address] Mime Artist: Ramsey Rodriguez MD Hemoglobin (Bld) [Mass/Vol] 10.7 g/dL Low 13.0-17.0 [facility] Comment on above: Performed By: #### H EPXA, CBC, PTT, PT #### [address] [address] Mime Artist: Ramsey Rodriguez MD MCH (RBC) [Entitic mass] 30.5 pg Normal 25.2-33.5 [facility] Comment on above: Performed By: #### H EPXA, CBC, PTT, PT #### [address] [address] Mime Artist: Ramsey Rodriguez MD MCHC (RBC) [Mass/Vol] 31.4 g/dL Normal 28.4-34.8 [facility] Comment on above: Performed By: #### H EPXA, CBC, PTT, PT #### [address] [address] Mime Artist: Ramsey Rodriguez MD MCV (RBC) [Entitic vol] 97.2 fL Normal 82.6-102.9 [facility] Comment on above: Performed By: #### H EPXA, CBC, PTT, PT #### [address] [address] Mime Artist: Ramsey Rodriguez MD NRBC Automated 0.0 per 100 WBC Normal 0.0 [facility] Comment on above: Performed By: #### H EPXA, CBC, PTT, PT #### [address] [address] Mime Artist: Ramsey Rodriguez MD Platelet mean volume (Bld) [Entitic vol] 10.2 fL Normal 8.1-13.5 [facility] Comment on above: Performed By: #### H EPXA, CBC, PTT, PT #### [address] [address] Mime Artist: Ramsey Rodriguez MD Platelets (Bld) [#/Vol] 166 10*3/uL Normal 138-453 [facility] Comment on above: Performed By: #### H EPXA, CBC, PTT, PT #### [address] [address] Mime Artist: Ramsey Rodriguez MD RBC (Bld) [#/Vol] 3.51 10*6/uL Low 4.21-5.77 [facility] Comment on above: Performed By: #### H EPXA, CBC, PTT, PT #### [address] [address] Mime Artist: Ramsey Rodriguez MD WBC (Bld) [#/Vol] 6.5 10*3/uL Normal 3.5-11.3 [facility] Comment on above: Performed By: #### H EPXA, CBC, PTT, PT #### [address] [address] Mime Artist: Ramsey Rodriguez MD CBC with Diffon 08-28-2023 Abs. Basophil <0.03 Normal 0.00-0.20 [facility] Comment on above: Performed By: #### T ROPI #### [place] [address] Mime Artist: Ramsey Rodriguez MD Abs.Imm.Granulocyte <0.03 Normal 0.00-0.30 [facility] Comment on above: Performed By: #### T ROPI #### [place] [address] Mime Artist: Ramsey Rodriguez MD Abs.Neutrophil (Seg) 4.13 k/uL Normal 1.50-8.10 [facility] Comment on above: Performed By: #### T ROPI #### [address] [address] Mime Artist: Ramsey Rodriguez MD Basophils/100 WBC (Bld) 0 % Normal 0-2 [facility] Comment on above: Performed By: #### T ROPI #### [address] [address] Mime Artist: Ramsey Rodriguez MD Eosinophils (Bld) [#/Vol] 0.27 10*3/uL Normal 0.00-0.44 [facility] Comment on above: Performed By: #### T ROPI #### [address] [address] Mime Artist: Ramsey Rodriguez MD Eosinophils/100 WBC (Bld) 5 % High 1-4 [facility] Comment on above: Performed By: #### T ROPI #### [place] [address] Mime Artist: Ramsey Rodriguez MD Erythrocyte distribution width (RBC) [Ratio] 15.7 % High 11.8-14.4 [facility] Comment on above: Performed By: #### T ROPI #### [place] [address] Mime Artist: Ramsey Rodriguez MD Hematocrit (Bld) [Volume fraction] 34.6 % Low 40.7-50.3 [facility] Comment on above: Performed By: #### T ROPI #### [address] [address] Mime Artist: Ramsey Rodriguez MD Hemoglobin (Bld) [Mass/Vol] 10.5 g/dL Low 13.0-17.0 [facility] Comment on above: Performed By: #### T ROPI #### [address] [address] Mime Artist: Ramsey Rodriguez MD Immature granulocytes/100 WBC (Bld) 0 % Normal 0 [facility] Comment on above: Performed By: #### T ROPI #### [address] [address] Mime Artist: Ramsey Rordiguez MD Lymphocytes (Bld) [#/Vol] 1.01 10*3/uL Low 1.10-3.70 [facility] Comment on above: Performed By: #### T ROPI #### [place] [address] Mime Artist: Ramsey Rodriguez MD Lymphocytes/100 WBC (Bld) 17 % Low 24-43 [facility] Comment on above: Performed By: #### T ROPI #### [place] [address] Mime Artist: Ramsey Rodriguez MD MCH (RBC) [Entitic mass] 30.8 pg Normal 25.2-33.5 [facility] Comment on above: Performed By: #### T ROPI #### [place] [address] Mime Artist: Ramsey Rodriguez MD MCHC (RBC) [Mass/Vol] 30.3 g/dL Normal 28.4-34.8 [facility] Comment on above: Performed By: #### T ROPI #### [place] [address] Mime Artist: Ramsey Rodriguez MD MCV (RBC) [Entitic vol] 101.5 fL Normal 82.6-102.9 [facility] Comment on above: Performed By: #### T ROPI #### [place] [address] Mime Artist: Ramsey Rodriguez MD Monocytes (Bld) [#/Vol] 0.39 10*3/uL Normal 0.10-1.20 [facility] Comment on above: Performed By: #### T ROPI #### [place] [address] Mime Artist: Ramsey Rodriguez MD Monocytes/100 WBC (Bld) 7 % Normal 3-12 [facility] Comment on above: Performed By: #### T ROPI #### [address] [address] Mime Artist: Ramsey Rodriguez MD Neutrophil (Seg) 71 % High 36-65 [facility] Comment on above: Performed By: #### T ROPI #### [address] [address] Mime Artist: Ramsey Rodriguez MD NRBC Automated 0.0 per 100 WBC Normal 0.0 [facility] Comment on above: Performed By: #### T ROPI #### [address] [address] Mime Artist: Ramsey Rodriguez MD Platelet mean volume (Bld) [Entitic vol] 10.3 fL Normal 8.1-13.5 [facility] Comment on above: Performed By: #### T ROPI #### [address] [address] Mime Artist: Ramsey Rodriguez MD Platelets (Bld) [#/Vol] 145 10*3/uL Normal 138-453 [facility] Comment on above: Performed By: #### T ROPI #### [address] [address] Mime Artist: Ramsey Rodriguez MD RBC (Bld) [#/Vol] 3.41 10*6/uL Low 4.21-5.77 [facility] Comment on above: Performed By: #### T ROPI #### [address] [address] Mime Artist: Ramsey Rodriguez MD RBC morphology finding Nom (Bld) ANISOCYTOSIS PRESENT Normal [facility] Comment on above: Performed By: #### T ROPI #### [address] [address] Mime Artist: Ramsey Rodriguez MD WBC (Bld) [#/Vol] 5.8 10*3/uL Normal 3.5-11.3 [facility] Comment on above: Performed By: #### T ALLA #### [employer] [address] [place] [address] Mime Artist: Ramsey Rodriguez MD FL MODIFIED BARIUM SWALLOW W VIDEOon 08-28-2023 FL MODIFIED BARIUM SWALLOW W VIDEO EXAMINATION: MODIFIED BARIUM SWALLOW WAS PERFORMED IN CONJUNCTION WITH SPEECH PATHOLOGY SERVICES TECHNIQUE: Under fluoroscopic evaluation cineradiography/videor adiography recordings were performed in conjunction with the speech-language pathologist (RENTAL MANAGER). Various liquid, solid and/or semi-solid barium preparations were used to assess swallowing function. FLUOROSCOPY DOSE AND TYPE: Radiation Exposure Index: DAP [id number], COMPARISON: None HISTORY: ORDERING SYSTEM PROVIDED HISTORY: dysphagia TECHNOLOGIST PROVIDED HISTORY: dysphagia FINDINGS: Thin liquid: Given by teaspoon no laryngeal penetration or aspiration. Given by straw there is trace laryngeal penetration. No aspiration. [place] thick liquid: Given by teaspoon no laryngeal penetration or aspiration. Given by straw trace laryngeal penetration. Honey thick liquid: No laryngeal penetration or aspiration. Puree, soft solid: No laryngeal penetration or aspiration. Cookie not tested. Premature spillage and some pooling in the vallecula. IMPRESSION: No aspiration. Laryngeal penetration of nectar thick and thin liquid when given by straw. Please see separate speech pathology report for full discussion of findings and recommendations. Interpreted by: Christiano Cohen MD Signed by: Christiano Cohen MD 08/28/23 Final result Normal [facility] Glucose,Whole Bloodon 2023 Glucose [Mass/Vol] 105 mg/dL Normal 75-110 [facility] Glucose [Mass/Vol] 87 mg/dL Normal 75-110 [facility] Glucose [Mass/Vol] 86 mg/dL Normal 75-110 [facility] Heparin Anti-Xaon 08-28-2023 Heparin Anti-Xa 0.22 IU/L Normal [facility] Comment on above: Performed By: #### H EPXA, CBC, PTT, PT #### [employer] [address] [place] [address] Mime Artist: Ramsey Rodriguez MD Magnesiumon 08-28-2023 Magnesium [Mass/Vol] 1.7 mg/dL Normal 1.6-2.4 [facility] Comment on above: Performed By: #### T ROPI #### [facility] [address] [place] [address] Mime Artist: Ramsey Rodriguez MD Magnesium [Mass/Vol] 2.4 mg/dL Normal 1.6-2.4 [facility] Comment on above: Performed By: #### H EPXA, CBC, PTT, PT #### [facility] [employer] [address] [place] [address] Mime Artist: Ramsey Rodriguez MD PTon 08-28-2023 INR Coag (PPP) [Relative time] 1.0 {INR} Normal [facility] Comment on above: Result Comment: Therapeutic Range: Moderate Anticoagulant Intensity: INR = 2.0-3.0 High Anticoagulant Intensity: INR = 2.5-3.5 Performed By: #### H EPXA, CBC, PTT, PT #### [facility] [employer] [address] [place] [address] Mime Artist: Ramsey Rodriguez MD PT Coag (PPP) [Time] 13.5 s Normal 11.7-14.9 [facility] Comment on above: Performed By: #### H EPXA, CBC, PTT, PT #### [facility] [address] [place] [address] Mime Artist: Ramsey Rodriguez MD Phosphorus, Inorg.on 024 Phosphorus, Inorg. 2.4 mg/dL Low 2.5-4.5 [facility] Comment on above: Performed By: #### T ROPI #### [facility] [address] [place] [address] Mime Artist: Ramsey Rodriguez MD Phosphorus, Inorg. 2.2 mg/dL Low 2.5-4.5 [facility] Comment on above: Performed By: #### H EPXA, CBC, PTT, PT #### [facility] [employer] [facility] [place], [place] [id number] Mime Artist: Ramsey Rodriguez MD Troponinon 08-28-2023 Troponin, High Sens 138 ng/L Critically high 0-22 [facility] Comment on above: Result Comment: High Sensitivity Troponin values cannot be compared with other Troponin methodologies. Performed By: #### B MP, TROPI #### [address] [id number] Mime Artist: Ramsey Rodriguez MD Troponin, High Sens 142 ng/L Critically high 0-22 [facility] Comment on above: Result Comment: High Sensitivity Troponin values cannot be compared with other Troponin methodologies. Previous Alert Value Reported Performed By: #### H EPXA, CBC, PTT, PT #### [address] [id number] Mime Artist: Ramsey Rodriguez MD XR CHEST PORTABLEon 08-28-19 XR CHEST PORTABLE EXAMINATION: ONE XRAY VIEW OF THE CHEST 08/28/2023 8:30 am COMPARISON: Chest x-ray dated 27 Aug 2023. HISTORY: ORDERING SYSTEM PROVIDED HISTORY: coughing TECHNOLOGIST PROVIDED HISTORY: coughing FINDINGS: Infiltrate in the right mid lung field. Elevated right hemidiaphragm. No pneumothorax or pleural effusion. Normal cardiomediastinal silhouette IMPRESSION: Right mid lung field infiltrate appears similar to the prior study. Interpreted by: Rafat Dumont MD Signed by: Rafat Dumont MD 08/28/23 Final result Normal [facility] Basic Metabolic Profon 08-26 Anion gap [Moles/Vol] 7 mmol/L Low 9-16 [facility] Comment on above: Performed By: #### H EPXA, CBC, PTT, PT #### [address] [address] Mime Artist: Ramsey Rodriguez MD Calcium [Mass/Vol] 8.0 mg/dL Low 8.6-10.4 [facility] Comment on above: Performed By: #### H EPXA, CBC, PTT, PT #### [facility] [employer] [address] [place] [address] Mime Artist: Ramsey Rodriguez MD Chloride [Moles/Vol] 107 mmol/L Normal 98-107 [facility] Comment on above: Performed By: #### H EPXA, CBC, PTT, PT #### [facility] [employer] [address] [place] [address] Mime Artist: Ramsey Rodriguez MD CO2 [Moles/Vol] 26 mmol/L Normal 20-31 [facility] Comment on above: Performed By: #### H EPXA, CBC, PTT, PT #### [address] [address] Mime Artist: Ramsey Rodriguez MD Creatinine [Mass/Vol] 0.6 mg/dL Low 0.70-1.20 [facility] Comment on above: Performed By: #### H EPXA, CBC, PTT, PT #### [address] [address] Mime Artist: Ramsey Rodriguez MD GFR/1.73 sq M.predicted among non-blacks MDRD (S/P/Bld) [Vol rate/Area] mL/min/{1.73_m2} Normal >60 [facility] Comment on above: Result Comment: These results are not intended for use in patients <18 years of age. eGFR results are calculated without a race factor using the 2020 CKD-EPI equation. Careful clinical correlation is recommended, particularly when comparing to results calculated using previous equations. The CKD-EPI equation is less accurate in patients with extremes of muscle mass, extra-renal metabolism of creatine, excessive creatine ingestion, or following therapy that affects renal tubular secretion. Performed By: #### H EPXA, CBC, PTT, PT #### [facility] [address] [place] [address] Mime Artist: Ramsey Rodriguez MD Glucose [Mass/Vol] 104 mg/dL High 74-99 [facility] Comment on above: Performed By: #### H EPXA, CBC, PTT, PT #### [facility] [employer] [address] [place] [address] Mime Artist: Ramsey Rodriguez MD Potassium [Moles/Vol] 3.6 mmol/L Low 3.7-5.3 [facility] Comment on above: Performed By: #### H EPXA, CBC, PTT, PT #### [facility] [employer] [address] [place] [address] Mime Artist: Ramsey Rodriguez MD Sodium [Moles/Vol] 140 mmol/L Normal 136-145 [facility] Comment on above: Performed By: #### H EPXA, CBC, PTT, PT #### [facility] [employer] [address] [place] [address] Mime Artist: Ramsey Rodriguez MD Urea nitrogen [Mass/Vol] 14 mg/dL Normal 8-23 [facility] Comment on above: Performed By: #### H EPXA, CBC, PTT, PT #### [facility] [employer] [address] [place] [address] Mime Artist: Ramsey Rodriguez MD CBC with Diffon 08-27-2023 Abs. Basophil <0.03 Normal 0.00-0.20 [facility] Comment on above: Performed By: #### H EPXA, CBC, PTT, PT #### [facility] [employer] [address] [place] [address] Mime Artist: Ramsey Rodriguez MD Abs.Imm.Granulocyte <0.03 Normal 0.00-0.30 [facility] Comment on above: Performed By: #### H EPXA, CBC, PTT, PT #### [facility] [employer] [address] [place] [address] Mime Artist: Ramsey Rodriguez MD Abs.Neutrophil (Seg) 3.93 k/uL Normal 1.50-8.10 [facility] Comment on above: Performed By: #### H EPXA, CBC, PTT, PT #### [facility] [employer] [address] [place] [address] Mime Artist: Ramsey Rodriguez MD Basophils/100 WBC (Bld) 0 % Normal 0-2 [facility] Comment on above: Performed By: #### H EPXA, CBC, PTT, PT #### [facility] [employer] [address] [place] [address] Mime Artist: Ramsey Rodriguez MD Eosinophils (Bld) [#/Vol] 0.25 10*3/uL Normal 0.00-0.44 [facility] Comment on above: Performed By: #### H EPXA, CBC, PTT, PT #### [facility] [employer] [address] [place] [address] Mime Artist: Ramsey Rodriguez MD Eosinophils/100 WBC (Bld) 5 % High 1-4 [facility] Comment on above: Performed By: #### H EPXA, CBC, PTT, PT #### [facility] [employer] [address] [place] [address] Mime Artist: Ramsey Rodriguez MD Erythrocyte distribution width (RBC) [Ratio] 15.8 % High 11.8-14.4 [facility] Comment on above: Performed By: #### H EPXA, CBC, PTT, PT #### [facility] [employer] [address] [place] [address] Mime Artist: Ramsey Rodriguez MD Hematocrit (Bld) [Volume fraction] 33.2 % Low 40.7-50.3 [facility] Comment on above: Performed By: #### H EPXA, CBC, PTT, PT #### [facility] [address] [place] [address] Mime Artist: Ramsey Rodriguez MD Hemoglobin (Bld) [Mass/Vol] 10.3 g/dL Low 13.0-17.0 [facility] Comment on above: Performed By: #### H EPXA, CBC, PTT, PT #### [address] [address] Mime Artist: Ramsey Rodriguez MD Immature granulocytes/100 WBC (Bld) 0 % Normal 0 [facility] Comment on above: Performed By: #### H EPXA, CBC, PTT, PT #### [address] [address] Mime Artist: Ramsey Rodriguez MD Lymphocytes (Bld) [#/Vol] 1.01 10*3/uL Low 1.10-3.70 [facility] Comment on above: Performed By: #### H EPXA, CBC, PTT, PT #### [address] [address] Mime Artist: Ramsey Rodriguez MD Lymphocytes/100 WBC (Bld) 18 % Low 24-43 [facility] Comment on above: Performed By: #### H EPXA, CBC, PTT, PT #### [address] [address] Mime Artist: Ramsey Rodriguez MD MCH (RBC) [Entitic mass] 30.6 pg Normal 25.2-33.5 [facility] Comment on above: Performed By: #### H EPXA, CBC, PTT, PT #### [address] [address] Mime Artist: Ramsey Rodriguez MD MCHC (RBC) [Mass/Vol] 31.0 g/dL Normal 28.4-34.8 [facility] Comment on above: Performed By: #### H EPXA, CBC, PTT, PT #### [address] [address] Mime Artist: Ramsey Rodriguez MD MCV (RBC) [Entitic vol] 98.5 fL Normal 82.6-102.9 [facility] Comment on above: Performed By: #### H EPXA, CBC, PTT, PT #### [address] [address] Mime Artist: Ramsey Rodriguez MD Monocytes (Bld) [#/Vol] 0.33 10*3/uL Normal 0.10-1.20 [facility] Comment on above: Performed By: #### H EPXA, CBC, PTT, PT #### [address] [address] Mime Artist: Ramsey Rodriguez MD Monocytes/100 WBC (Bld) 6 % Normal 3-12 [facility] Comment on above: Performed By: #### H EPXA, CBC, PTT, PT #### [address] [address] Mime Artist: Ramsey Rodriguez MD Neutrophil (Seg) 71 % High 36-65 [facility] Comment on above: Performed By: #### H EPXA, CBC, PTT, PT #### [address] [address] Mime Artist: Ramsey Rodriguez MD NRBC Automated 0.0 per 100 WBC Normal 0.0 [facility] Comment on above: Performed By: #### H EPXA, CBC, PTT, PT #### [address] [address] Mime Artist: Ramsey Rodriguez MD Platelet mean volume (Bld) [Entitic vol] 10.2 fL Normal 8.1-13.5 [facility] Comment on above: Performed By: #### H EPXA, CBC, PTT, PT #### [address] [address] Mime Artist: Ramsey Rodriguez MD Platelets (Bld) [#/Vol] 136 10*3/uL Low 138-453 [facility] Comment on above: Performed By: #### H EPXA, CBC, PTT, PT #### [facility] [employer] [address] [place] [address] Mime Artist: Ramsey Rodriguez MD RBC (Bld) [#/Vol] 3.37 10*6/uL Low 4.21-5.77 [facility] Comment on above: Performed By: #### H EPXA, CBC, PTT, PT #### [facility] [employer] [address] [place] [address] Mime Artist: Ramsey Rodriguez MD RBC morphology finding Nom (Bld) ANISOCYTOSIS PRESENT Normal [facility] Comment on above: Performed By: #### H EPXA, CBC, PTT, PT #### [facility] [employer] [address] [place] [address] Mime Artist: Ramsey Rodriguez MD WBC (Bld) [#/Vol] 5.6 10*3/uL Normal 3.5-11.3 [facility] Comment on above: Performed By: #### H EPXA, CBC, PTT, PT #### [facility] [employer] [address] [place] [address] Mime Artist: Ramsey Rodriguez MD Glucose,Whole Bloodon 2023 Glucose [Mass/Vol] 95 mg/dL Normal 75-110 [facility] Glucose [Mass/Vol] 99 mg/dL Normal 75-110 [facility] Glucose [Mass/Vol] 103 mg/dL Normal 75-110 [facility] Magnesiumon 08-27-2023 Magnesium [Mass/Vol] 2.0 mg/dL Normal 1.6-2.4 [facility] Comment on above: Performed By: #### H EPXA, CBC, PTT, PT #### [facility] [employer] [address] [place] [address] Mime Artist: Ramsey Rodriguez MD Phosphorus, Inorg.on 024 Phosphorus, Inorg. 2.4 mg/dL Low 2.5-4.5 [facility] Comment on above: Performed By: #### H EPXA, CBC, PTT, PT #### [address] [address] Mime Artist: Ramsey Rodriguez MD Urinalysis, Routineon 2023 Bilirubin, SemiQt,Ur Negative Normal NEG [facility] Comment on above: Performed By: #### B MP, CDP, HEPXA #### [address] [address] Mime Artist: Ramsey Rodriguez MD Blood, Urine Negative Normal NEG [facility] Comment on above: Performed By: #### B MP, CDP, HEPXA #### [address] [address] Mime Artist: Ramsey Rodriguez MD Clarity (U) Clear Normal CLEAR [facility] Comment on above: Performed By: #### B MP, CDP, HEPXA #### [address] [address] Mime Artist: Ramsey Rodriguez MD Color (U) Yellow Normal YEL [facility] Comment on above: Performed By: #### B MP, CDP, HEPXA #### [address] [address] Mime Artist: Ramsey Rodriguez MD Comment Microscopic exam not performed based on chemical results unless requested in Normal [facility] Comment on above: Result Comment: orig inal order. Performed By: #### B MP, CDP, HEPXA #### [address] [address] Mime Artist: Ramsey Rodriguez MD Glucose Ql (U) Negative Normal NEG [facility] Comment on above: Performed By: #### B MP, CDP, HEPXA #### [facility] [address] [place] [address] Mime Artist: Ramsey Rodriguez MD Ketones Ql (U) Negative Normal NEG [facility] Comment on above: Performed By: #### B MP, CDP, HEPXA #### [facility] [address] [place] [address] Mime Artist: Ramsey Rodriguez MD Leukocyte esterase Test strip Ql (U) Negative Normal NEG [facility] Comment on above: Performed By: #### B MP, CDP, HEPXA #### [address] [address] Mime Artist: Ramsey Rodriguez MD Nitrite,Ur Negative Normal NEG [facility] Comment on above: Performed By: #### B MP, CDP, HEPXA #### [address] [address] Mime Artist: Ramsey Rodriguez MD PH,Ur 5.5 Normal 5.0-8.0 [facility] Comment on above: Performed By: #### B MP, CDP, HEPXA #### [facility] [address] [place] [address] Mime Artist: Ramsey Rodriguez MD Protein Ql (U) Negative Normal NEG [facility] Comment on above: Performed By: #### B MP, CDP, HEPXA #### [facility] [address] [place] [address] Mime Artist: Ramsey Rodriguez MD Spec. [place],Ur 1.008 Normal 1.005-1.030 [facility] Comment on above: Performed By: #### B MP, CDP, HEPXA #### [facility] [address] [place] [address] Mime Artist: Ramsey Rodriguez MD Urobilinogen,Ur Normal Normal 0.0-1.0 [facility] Comment on above: Performed By: #### B MP, CDP, HEPXA #### [facility] [employer] [facility] [place] [address] Mime Artist: Ramsey Rodriguez MD XR CHEST PORTABLEon 08-27-19 XR CHEST PORTABLE EXAMINATION: ONE XRAY VIEW OF THE CHEST 08/27/2023 10:16 am COMPARISON: Chest radiograph performed 08/26/2023. HISTORY: ORDERING SYSTEM PROVIDED HISTORY: pneumonia TECHNOLOGIST PROVIDED HISTORY: pneumonia FINDINGS: There are right pulmonary infiltrates that are less pronounced compared to prior. There is underlying chronic pulmonary change. There is no pneumothorax. The mediastinal structures are unremarkable. The upper abdomen is unremarkable. The extrathoracic soft tissues are unremarkable. IMPRESSION: Less pronounced right pulmonary infiltrates. Underlying chronic pulmonary change. Interpreted by: Alex Martinez MD Signed by: Alex Martinez MD 08/27/23 Final result Normal [facility] Arterial Bld Gas,POCon 08-25 Eliazar Test Positive Normal [facility] FIO2 60.0 Normal [facility] HCO3 (Bld) [Moles/Vol] 26.6 mmol/L Normal 21.0-28.0 [facility] O2 Device BIPAP Normal [facility] Oxygen saturation in Blood 99.1 % High 94.0-98.0 [facility] pCO2, Arterial 40.5 mm Hg Normal 35.0-48.0 [facility] pH, Arterial 7.426 Normal 7.350-7.450 [facility] pO2, Arterial 135.5 mm Hg High 83.0-108.0 [facility] Positive Base Excess (calc) 2.1 mmol/L Normal 0.0-3.0 [facility] Site Drawn Right Radial Artery Normal [facility] Basic Metabolic Profon 08-25 Anion gap [Moles/Vol] 5 mmol/L Low 9-16 [facility] Comment on above: Performed By: #### B EDWARD, TROPI #### [facility] [place] [address] Mime Artist: Ramsey Rodriguez MD Calcium [Mass/Vol] 8.2 mg/dL Low 8.6-10.4 [facility] Comment on above: Performed By: #### B MP, TROPI #### [facility] [employer] [address] [place] [address] Mime Artist: Ramsey Rodriguez MD Chloride [Moles/Vol] 107 mmol/L Normal 98-107 [facility] Comment on above: Performed By: #### B MP, TROPI #### [facility] [employer] [address] [place] [address] Mime Artist: Ramsey Rodriguez MD CO2 [Moles/Vol] 26 mmol/L Normal 20-31 [facility] Comment on above: Performed By: #### B MP, TROPI #### [facility] [employer] [address] [place] [address] Mime Artist: Ramsey Rodriguez MD Creatinine [Mass/Vol] 0.6 mg/dL Low 0.70-1.20 [facility] Comment on above: Performed By: #### B MP, TROPI #### [facility] [employer] [address] [place] [address] Mime Artist: Ramsey Rodriguez MD GFR/1.73 sq M.predicted among non-blacks MDRD (S/P/Bld) [Vol rate/Area] mL/min/{1.73_m2} Normal >60 [facility] Comment on above: Result Comment: These results are not intended for use in patients <18 years of age. eGFR results are calculated without a race factor using the 2020 CKD-EPI equation. Careful clinical correlation is recommended, particularly when comparing to results calculated using previous equations. The CKD-EPI equation is less accurate in patients with extremes of muscle mass, extra-renal metabolism of creatine, excessive creatine ingestion, or following therapy that affects renal tubular secretion. Performed By: #### B MP, TROPI #### [facility] [place] [address] Mime Artist: Ramsey Rodriguez MD Glucose [Mass/Vol] 92 mg/dL Normal 74-99 [facility] Comment on above: Performed By: #### B MP, TROPI #### [facility] [address] [place] [address] Mime Artist: Ramsey Rodriguez MD Potassium [Moles/Vol] 4.2 mmol/L Normal 3.7-5.3 [facility] Comment on above: Performed By: #### B MP, TROPI #### [facility] [address] [place] [address] Mime Artist: Ramsey Rodriguez MD Sodium [Moles/Vol] 138 mmol/L Normal 136-145 [facility] Comment on above: Performed By: #### B MP, TROPI #### [facility] [address] [place] [address] Mime Artist: Ramsey Rodriguez MD Urea nitrogen [Mass/Vol] 18 mg/dL Normal 8-23 [facility] Comment on above: Performed By: #### B MP, TROPI #### [facility] [address] [place] [address] Mime Artist: Ramsey Rodriguez MD CBC with Diffon 08-26-2023 Abs. Basophil <0.03 Normal 0.00-0.20 [facility] Comment on above: Performed By: #### B MP, TROPI #### [facility] [address] [place] [address] Mime Artist: Ramsey Rodriguez MD Abs.Imm.Granulocyte <0.03 Normal 0.00-0.30 [facility] Comment on above: Performed By: #### B MP, TROPI #### [facility] [address] [place] [address] Mime Artist: Ramsey Rodriguez MD Abs.Neutrophil (Seg) 4.44 k/uL Normal 1.50-8.10 [facility] Comment on above: Performed By: #### B EDWARD TROPI #### [facility] [address] [place] [address] Mime Artist: Ramsey Rodriguez MD Basophils/100 WBC (Bld) 0 % Normal 0-2 [facility] Comment on above: Performed By: #### B EDWARD TROPI #### [facility] [address] [place] [address] Mime Artist: Ramsey Rodriguez MD Eosinophils (Bld) [#/Vol] 0.17 10*3/uL Normal 0.00-0.44 [facility] Comment on above: Performed By: #### B EDWARD TROPI #### [address] [address] Mime Artist: Ramsey Rodriguez MD Eosinophils/100 WBC (Bld) 3 % Normal 1-4 [facility] Comment on above: Performed By: #### B EDWARD TROPI #### [facility] [address] [place] [address] Mime Artist: Ramsey Rodriguez MD Erythrocyte distribution width (RBC) [Ratio] 15.7 % High 11.8-14.4 [facility] Comment on above: Performed By: #### B EDWARD TROPI #### [facility] [address] [place] [address] Mime Artist: Ramsey Rodriugez MD Hematocrit (Bld) [Volume fraction] 34.0 % Low 40.7-50.3 [facility] Comment on above: Performed By: #### B EDWARD TROPI #### [facility] [address] [place] [address] Mime Artist: Ramsey Rodriguez MD Hemoglobin (Bld) [Mass/Vol] 10.8 g/dL Low 13.0-17.0 [facility] Comment on above: Performed By: #### B EDWARD, TROPI #### [address] [address] Mime Artist: Ramsey Rodriguez MD Immature granulocytes/100 WBC (Bld) 0 % Normal 0 [facility] Comment on above: Performed By: #### B EDWARD, TROPI #### [address] [address] Mime Artist: Ramsey Rodriguez MD Lymphocytes (Bld) [#/Vol] 1.18 10*3/uL Normal 1.10-3.70 [facility] Comment on above: Performed By: #### B EDWARD, TROPI #### [address] [address] Mime Artist: Ramsey Rodriguez MD Lymphocytes/100 WBC (Bld) 19 % Low 24-43 [facility] Comment on above: Performed By: #### B EDWARD TROPI #### [address] [address] Mime Artist: Ramsey Rodriguez MD MCH (RBC) [Entitic mass] 30.7 pg Normal 25.2-33.5 [facility] Comment on above: Performed By: #### B EDWARD TROPI #### [address] [address] Mime Artist: Ramsey Rodriguez MD MCHC (RBC) [Mass/Vol] 31.8 g/dL Normal 28.4-34.8 [facility] Comment on above: Performed By: #### B EDWARD, TROPI #### [facility] [address] [place] [address] Mime Artist: Ramsey Rodriguez MD MCV (RBC) [Entitic vol] 96.6 fL Normal 82.6-102.9 [facility] Comment on above: Performed By: #### B MP, TROPI #### [address] [address] Mime Artist: Ramsey Rodriguez MD Monocytes (Bld) [#/Vol] 0.41 10*3/uL Normal 0.10-1.20 [facility] Comment on above: Performed By: #### B MP, TROPI #### [address] [address] Mime Artist: Ramsey Rodriguez MD Monocytes/100 WBC (Bld) 7 % Normal 3-12 [facility] Comment on above: Performed By: #### B MP, TROPI #### [address] [address] Mime Artist: Ramsey Rodriguez MD Neutrophil (Seg) 71 % High 36-65 [facility] Comment on above: Performed By: #### B MP, TROPI #### [address] [address] Mime Artist: Ramsey Rodriguez MD NRBC Automated 0.0 per 100 WBC Normal 0.0 [facility] Comment on above: Performed By: #### B MP, TROPI #### [address] [address] Mime Artist: Ramsey Rodriguez MD Platelet mean volume (Bld) [Entitic vol] 9.9 fL Normal 8.1-13.5 [facility] Comment on above: Performed By: #### B MP, TROPI #### [address] [address] Mime Artist: Ramsey Rodriguez MD Platelets (Bld) [#/Vol] 143 10*3/uL Normal 138-453 [facility] Comment on above: Performed By: #### B MP, TROPI #### [address] [address] Mime Artist: Ramsey Rodriguez MD RBC (Bld) [#/Vol] 3.52 10*6/uL Low 4.21-5.77 [facility] Comment on above: Performed By: #### B EDWARD, TROPI #### [address] [address] Mime Artist: Ramsey Rodriguez MD RBC morphology finding Nom (Bld) ANISOCYTOSIS PRESENT Normal [facility] Comment on above: Performed By: #### B EDWARD, TROPI #### [address] [address] Mime Artist: Ramsey Rodriguez MD WBC (Bld) [#/Vol] 6.2 10*3/uL Normal 3.5-11.3 [facility] Comment on above: Performed By: #### B EDWARD, TROPI #### [address] [address] Mime Artist: Ramsey Rodriguez MD Gl Hemostasis TEG w/Lysison 08-26-2023 Fibrinogen, Func TEG 5.4 mm Low 15.0-32.0 [facility] Comment on above: Performed By: #### H EPXA, CBC, PTT, PT #### [address] [address] Mime Artist: Ramsey Rodriguez MD LY30 (Lysis) TEG 0.0 % Normal 0.0-2.6 [facility] Comment on above: Performed By: #### H EPXA, CBC, PTT, PT #### [address] [address] Mime Artist: Ramsey Rodriguez MD MA Rapid TEG <40.0 Low 52.0-70 [facility] Comment on above: Performed By: #### H EPXA, CBC, PTT, PT #### [address] [address] Mime Artist: Ramsey Rodriguez MD R(Reaction Time) TEG >17.0 High 4.6-9.1 [facility] Comment on above: Performed By: #### H EPXA, CBC, PTT, PT #### [address] [phone] Mime Artist: Ramsey Rodriguez MD Glucose,Whole Bloodon 2023 Glucose [Mass/Vol] 86 mg/dL Normal 75-110 [facility] Glucose [Mass/Vol] 101 mg/dL Normal 75-110 [facility] Glucose [Mass/Vol] 86 mg/dL Normal 75-110 [facility] Glucose [Mass/Vol] 99 mg/dL Normal 75-110 [facility] Magnesiumon 08-26-2023 Magnesium [Mass/Vol] 1.7 mg/dL Normal 1.6-2.4 [facility] Comment on above: Performed By: #### T ROPI #### [address] [phone] Mime Artist: Ramsey Rodriguez MD PTon 08-26-2023 INR Coag (PPP) [Relative time] 1.1 {INR} Normal [facility] Comment on above: Result Comment: Therapeutic Range: Moderate Anticoagulant Intensity: INR = 2.0-3.0 High Anticoagulant Intensity: INR = 2.5-3.5 Performed By: #### B EDWARD TROPAbram #### [facility] [address] [place] [address] [phone] Mime Artist: Ramsey Rodriguez MD PT Coag (PPP) [Time] 13.7 s Normal 11.7-14.9 [facility] Comment on above: Performed By: #### B KAITLYNN LEON #### [facility] [address] [place] [address] Mime Artist: Ramsey Rodriguez MD XR CHEST PORTABLEon 08-26-19 24 XR CHEST PORTABLE EXAMINATION: ONE XRAY VIEW OF THE CHEST 08/26/2023 7:58 am COMPARISON: 08/24/2023 HISTORY: ORDERING SYSTEM PROVIDED HISTORY: desaturation TECHNOLOGIST PROVIDED HISTORY: desaturation FINDINGS: Small bilateral pleural effusions. No pneumothorax. Heart size is at the upper limits of normal. Patchy right lung opacities most prominent in the suprahilar region. Mild interstitial edema may be present. IMPRESSION: Patchy right lung opacities concerning for pneumonia. Cardiomegaly with small bilateral pleural effusions and possible mild interstitial pulmonary edema. Interpreted by: Jordy Michel MD Signed by: Jordy Michel MD 08/26/23 Final result Normal [facility] Basic Metab w/rfx MGon 08-24 Anion gap [Moles/Vol] 7 mmol/L Low 9-16 [facility] Comment on above: Performed By: #### T ROPI #### [address] [address] Mime Artist: Ramsey Rodriguez MD Calcium [Mass/Vol] 7.8 mg/dL Low 8.6-10.4 [facility] Comment on above: Performed By: #### T ROPI #### [address] [address] Mime Artist: Ramsey Rodriguez MD Chloride [Moles/Vol] 109 mmol/L High 98-107 [facility] Comment on above: Performed By: #### T ROPI #### [address] [address] Mime Artist: Ramsey Rodriguez MD CO2 [Moles/Vol] 21 mmol/L Normal 20-31 [facility] Comment on above: Performed By: #### T ROPI #### [address] [address] Mime Artist: Ramsey Rodriguez MD Creatinine [Mass/Vol] 0.5 mg/dL Low 0.70-1.20 [facility] Comment on above: Performed By: #### T ROPI #### [address] [place] [address] Mime Artist: Ramsey Rodriguez MD GFR/1.73 sq M.predicted among non-blacks MDRD (S/P/Bld) [Vol rate/Area] mL/min/{1.73_m2} Normal >60 [facility] Comment on above: Result Comment: These results are not intended for use in patients <18 years of age. eGFR results are calculated without a race factor using the 2020 CKD-EPI equation. Careful clinical correlation is recommended, particularly when comparing to results calculated using previous equations. The CKD-EPI equation is less accurate in patients with extremes of muscle mass, extra-renal metabolism of creatine, excessive creatine ingestion, or following therapy that affects renal tubular secretion. Performed By: #### T ROPI #### [facility] [address] [place] [address] Mime Artist: Ramsey Rodriguez MD Glucose [Mass/Vol] 79 mg/dL Normal 74-99 [facility] Comment on above: Performed By: #### T ROPI #### [facility] [address] [place] [address] Mime Artist: Ramsey Rodriguez MD Potassium [Moles/Vol] 4.5 mmol/L Normal 3.7-5.3 [facility] Comment on above: Performed By: #### T ROPI #### [facility] [address] [place] [address] Mime Artist: Ramsey Rodriguez MD Sodium [Moles/Vol] 137 mmol/L Normal 136-145 [facility] Comment on above: Performed By: #### T ROPI #### [facility] [address] [place] [address] Mime Artist: Ramsey Rodriguez MD Urea nitrogen [Mass/Vol] 13 mg/dL Normal 8-23 [facility] Comment on above: Performed By: #### T ROPI #### [facility] [address] [place] [address] Mime Artist: Rasmey Rodriguez MD CBC with Diffon 08-25-2023 Abs. Basophil <0.03 Normal 0.00-0.20 [facility] Comment on above: Performed By: #### T ROPI #### [address] [address] Mime Artist: Ramsey Rodriguez MD Abs.Imm.Granulocyte <0.03 Normal 0.00-0.30 [facility] Comment on above: Performed By: #### T ROPI #### [address] [address] Mime Artist: Ramsey Rodriguez MD Abs.Neutrophil (Seg) 2.56 k/uL Normal 1.50-8.10 [facility] Comment on above: Performed By: #### T ROPI #### [place] [address] Mime Artist: Ramsey Rodriguez MD Basophils/100 WBC (Bld) 1 % Normal 0-2 [facility] Comment on above: Performed By: #### T ROPI #### [address] [address] Mime Artist: Ramsey Rodriguez MD Eosinophils (Bld) [#/Vol] 0.18 10*3/uL Normal 0.00-0.44 [facility] Comment on above: Performed By: #### T ROPI #### [address] [address] Mime Artist: Ramsey Rodriguez MD Eosinophils/100 WBC (Bld) 4 % Normal 1-4 [facility] Comment on above: Performed By: #### T ROPI #### [address] [address] Mime Artist: Ramsey Rodriguez MD Erythrocyte distribution width (RBC) [Ratio] 15.8 % High 11.8-14.4 [facility] Comment on above: Performed By: #### T ROPI #### [address] [address] Mime Artist: Ramsey Rodriguez MD Hematocrit (Bld) [Volume fraction] 33.3 % Low 40.7-50.3 [facility] Comment on above: Performed By: #### T ROPI #### [address] [address] Mime Artist: Ramsey Rodriguez MD Hemoglobin (Bld) [Mass/Vol] 10.4 g/dL Low 13.0-17.0 [facility] Comment on above: Performed By: #### T ROPI #### [address] [address] Mime Artist: Ramsey Rodriguez MD Immature granulocytes/100 WBC (Bld) 0 % Normal 0 [facility] Comment on above: Performed By: #### T ROPI #### [address] [address] Mime Artist: Ramsey Rodriguez MD Lymphocytes (Bld) [#/Vol] 1.22 10*3/uL Normal 1.10-3.70 [facility] Comment on above: Performed By: #### T ROPI #### [address] [address] Mime Artist: Ramsey Rodriguez MD Lymphocytes/100 WBC (Bld) 28 % Normal 24-43 [facility] Comment on above: Performed By: #### T ROPI #### [place] [address] Mime Artist: Ramsey Rodriguez MD MCH (RBC) [Entitic mass] 31.0 pg Normal 25.2-33.5 [facility] Comment on above: Performed By: #### T ROPI #### [address] [place] [address] Mime Artist: Ramsey Rodriguez MD MCHC (RBC) [Mass/Vol] 31.2 g/dL Normal 28.4-34.8 [facility] Comment on above: Performed By: #### T ROPI #### [address] [address] Mime Artist: Ramsey Rodriguez MD MCV (RBC) [Entitic vol] 99.4 fL Normal 82.6-102.9 [facility] Comment on above: Performed By: #### T ROPI #### [address] [address] Mime Artist: Ramsey Rodriguez MD Monocytes (Bld) [#/Vol] 0.32 10*3/uL Normal 0.10-1.20 [facility] Comment on above: Performed By: #### T ROPI #### [address] [address] Mime Artist: Ramsey Rodriguez MD Monocytes/100 WBC (Bld) 7 % Normal 3-12 [facility] Comment on above: Performed By: #### T ROPI #### [address] [address] Mime Artist: Ramsey Rodriguez MD Neutrophil (Seg) 60 % Normal 36-65 [facility] Comment on above: Performed By: #### T ROPI #### [address] [address] Mime Artist: Ramsey Rodriguez MD NRBC Automated 0.0 per 100 WBC Normal 0.0 [facility] Comment on above: Performed By: #### T ROPI #### [address] [address] Mime Artist: Ramsey Rodriguez MD Platelet mean volume (Bld) [Entitic vol] 10.0 fL Normal 8.1-13.5 [facility] Comment on above: Performed By: #### T ROPI #### [place] [place] [address] Mime Artist: Ramsey Rodriguez MD Platelets (Bld) [#/Vol] 143 10*3/uL Normal 138-453 [facility] Comment on above: Performed By: #### T ROPI #### [address] [address] Mime Artist: Ramsey Rodriguez MD RBC (Bld) [#/Vol] 3.35 10*6/uL Low 4.21-5.77 [facility] Comment on above: Performed By: #### T ROPI #### [address] [address] Mime Artist: Ramsey Rodriguez MD RBC morphology finding Nom (Bld) ANISOCYTOSIS PRESENT Normal [facility] Comment on above: Performed By: #### T ROPI #### [address] [address] Mime Artist: Ramsey Rodriguez MD WBC (Bld) [#/Vol] 4.3 10*3/uL Normal 3.5-11.3 [facility] Comment on above: Performed By: #### T ROPI #### [address] [address] Mime Artist: Ramsey Rodriguez MD Glucose,Whole Bloodon 2023 Glucose [Mass/Vol] 80 mg/dL Normal 75-110 [facility] Glucose [Mass/Vol] 104 mg/dL Normal 75-110 [facility] Glucose [Mass/Vol] 102 mg/dL Normal 75-110 [facility] Glucose [Mass/Vol] 88 mg/dL Normal 75-110 [facility] XR ABDOMEN (KUB) (SINGLE AP VIEW)on 05-05-2024 XR ABDOMEN (KUB) (SINGLE AP VIEW) EXAMINATION: ONE SUPINE XRAY VIEW(S) OF THE ABDOMEN 08/25/2023 6:52 pm COMPARISON: CT of the abdomen and pelvis from 08/20/2023 HISTORY: ORDERING SYSTEM PROVIDED HISTORY: Nausea TECHNOLOGIST PROVIDED HISTORY: Nausea S/p recent exploratory laparotomy FINDINGS: Left THR hardware; midline rocio s/p recent exploratory laparotomy. Overlying gown ECG monitor leads. Clips status post cholecystectomy. Gas-filled large and SB loops throughout abdomen/upper pelvis; persistent abnormal dilatation SB loops mid abdomen with paucity of gas in the rectum. No large amount of free air. No mass or organomegaly. No abnormal calcification appreciated. Bones stable. IMPRESSION: Bowel gas pattern as above. Findings suggest postoperative ileus although partial/residual SBO remains in the differential. Interpreted by: Gerardo Stafford MD Signed by: Gerardo Stafford MD 08/25/23 Final result Normal [facility] Basic Metab w/rfx MGon 08-23 Anion gap [Moles/Vol] 6 mmol/L Low 9-16 [facility] Comment on above: Performed By: #### B MP, CDP, HEPXA #### [facility] [place], [place] [id number] Mime Artist: Ramsey Rodriguez MD Calcium [Mass/Vol] 8.1 mg/dL Low 8.6-10.4 [facility] Comment on above: Performed By: #### B MP, CDP, HEPXA #### [facility] [address] [place] [address] Mime Artist: Ramsey Rodriguez MD Chloride [Moles/Vol] 108 mmol/L High 98-107 [facility] Comment on above: Performed By: #### B MP, CDP, HEPXA #### [facility] [address] [place], [place] [id number] Mime Artist: Ramsey Rodriguez MD CO2 [Moles/Vol] 25 mmol/L Normal 20-31 [facility] Comment on above: Performed By: #### B MP, CDP, HEPXA #### [facility] [address] [place] [address] Mime Artist: Ramsey Rodriguez MD Creatinine [Mass/Vol] 0.5 mg/dL Low 0.70-1.20 [facility] Comment on above: Performed By: #### B FABIANO LEON, HEPXA #### [address] [address] Mime Artist: Ramsey Rodriguez MD GFR/1.73 sq M.predicted among non-blacks MDRD (S/P/Bld) [Vol rate/Area] mL/min/{1.73_m2} Normal >60 [facility] Comment on above: Result Comment: These results are not intended for use in patients <18 years of age. eGFR results are calculated without a race factor using the 2020 CKD-EPI equation. Careful clinical correlation is recommended, particularly when comparing to results calculated using previous equations. The CKD-EPI equation is less accurate in patients with extremes of muscle mass, extra-renal metabolism of creatine, excessive creatine ingestion, or following therapy that affects renal tubular secretion. Performed By: #### B FABIANO LEON, HEPXA #### [facility] [employer] [address] [place] [address] Mime Artist: Ramsey Rodriguez MD Glucose [Mass/Vol] 105 mg/dL High 74-99 [facility] Comment on above: Performed By: #### B FABIANO LEON, HEPXA #### [facility] [address] [place] [address] Mime Artist: Ramsey Rodriguze MD Potassium [Moles/Vol] 4.2 mmol/L Normal 3.7-5.3 [facility] Comment on above: Performed By: #### B FABIANO LEON, HEPXA #### [facility] [address] [place] [address] Mime Artist: Ramsey Rodriguez MD Sodium [Moles/Vol] 139 mmol/L Normal 136-145 [facility] Comment on above: Performed By: #### B FABIANO LEON, HEPXA #### [facility] [place] [address] Mime Artist: Ramsey Rodriguez MD Urea nitrogen [Mass/Vol] 12 mg/dL Normal 8-23 [facility] Comment on above: Performed By: #### B MP, CDP, HEPXA #### [address] [address] Mime Artist: Ramsey Rodriguez MD CBC with Diffon 08-24-2023 Abs. Basophil <0.03 Normal 0.00-0.20 [facility] Comment on above: Performed By: #### B MP, CDP, HEPXA #### [address] [address] Mime Artist: Ramsey Rodriguez MD Abs.Imm.Granulocyte <0.03 Normal 0.00-0.30 [facility] Comment on above: Performed By: #### B MP, CDP, HEPXA #### [address] [address] Mime Artist: Ramsey Rodriguez MD Abs.Neutrophil (Seg) 3.28 k/uL Normal 1.50-8.10 [facility] Comment on above: Performed By: #### B MP, CDP, HEPXA #### [address] [address] Mime Artist: Ramsey Rodriguez MD Basophils/100 WBC (Bld) 0 % Normal 0-2 [facility] Comment on above: Performed By: #### B MP, CDP, HEPXA #### [facility] [employer] [address] [place] [address] Mime Artist: Ramsey Rodriguez MD Eosinophils (Bld) [#/Vol] 0.29 10*3/uL Normal 0.00-0.44 [facility] Comment on above: Performed By: #### B MP, CDP, HEPXA #### [address] [address] Mime Artist: Ramsey Rodriguez MD Eosinophils/100 WBC (Bld) 6 % High 1-4 [facility] Comment on above: Performed By: #### B MP, CDP, HEPXA #### [address] [address] Mime Artist: Ramsey Rodriguez MD Erythrocyte distribution width (RBC) [Ratio] 15.7 % High 11.8-14.4 [facility] Comment on above: Performed By: #### B MP, CDP, HEPXA #### [address] [address] Mime Artist: Ramsey Rodriguez MD Hematocrit (Bld) [Volume fraction] 33.4 % Low 40.7-50.3 [facility] Comment on above: Performed By: #### B MP, CDP, HEPXA #### [address] [address] Mime Artist: Ramsey Rodriguez MD Hemoglobin (Bld) [Mass/Vol] 10.5 g/dL Low 13.0-17.0 [facility] Comment on above: Performed By: #### B MP, CDP, HEPXA #### [address] [address] Mime Artist: Ramsey Rodriguez MD Immature granulocytes/100 WBC (Bld) 0 % Normal 0 [facility] Comment on above: Performed By: #### B MP, CDP, HEPXA #### [address] [address] Mime Artist: Ramsey Rodriguez MD Lymphocytes (Bld) [#/Vol] 0.89 10*3/uL Low 1.10-3.70 [facility] Comment on above: Performed By: #### B MP, CDP, HEPXA #### [facility] [address] [place] [address] Mime Artist: Ramsey Rodriguez MD Lymphocytes/100 WBC (Bld) 19 % Low 24-43 [facility] Comment on above: Performed By: #### B MP, CDP, HEPXA #### [facility] [address] [place] [address] Mime Artist: Ramsey Rodriguez MD MCH (RBC) [Entitic mass] 30.9 pg Normal 25.2-33.5 [facility] Comment on above: Performed By: #### B MP, CDP, HEPXA #### [facility] [address] [place] [address] Mime Artist: Ramsey Rodriguez MD MCHC (RBC) [Mass/Vol] 31.4 g/dL Normal 28.4-34.8 [facility] Comment on above: Performed By: #### B MP, CDP, HEPXA #### [facility] [address] [place] [address] Mime Artist: Ramsey Rodriguez MD MCV (RBC) [Entitic vol] 98.2 fL Normal 82.6-102.9 [facility] Comment on above: Performed By: #### B MP, CDP, HEPXA #### [facility] [employer] [address] [place] [address] Mime Artist: Ramsey Rodriguez MD Monocytes (Bld) [#/Vol] 0.26 10*3/uL Normal 0.10-1.20 [facility] Comment on above: Performed By: #### B MP, CDP, HEPXA #### [facility] [address] [place] [address] Mime Artist: Ramsey Rodriguez MD Monocytes/100 WBC (Bld) 6 % Normal 3-12 [facility] Comment on above: Performed By: #### B MP, CDP, HEPXA #### [facility] [address] [place] [address] Mime Artist: Ramsey Rodriguez MD Neutrophil (Seg) 69 % High 36-65 [facility] Comment on above: Performed By: #### B MP, CDP, HEPXA #### [address] [address] Mime Artist: Ramsey Rodriguez MD NRBC Automated 0.0 per 100 WBC Normal 0.0 [facility] Comment on above: Performed By: #### B MP, CDP, HEPXA #### [address] [address] Mime Artist: Ramsey Rodriguez MD Platelet mean volume (Bld) [Entitic vol] 10.0 fL Normal 8.1-13.5 [facility] Comment on above: Performed By: #### B MP, CDP, HEPXA #### [address] [address] Mime Artist: Ramsey Rodriguez MD Platelets (Bld) [#/Vol] 141 10*3/uL Normal 138-453 [facility] Comment on above: Performed By: #### B MP, CDP, HEPXA #### [address] [address] Mime Artist: Ramsey Rodriguez MD RBC (Bld) [#/Vol] 3.40 10*6/uL Low 4.21-5.77 [facility] Comment on above: Performed By: #### B MP, CDP, HEPXA #### [facility] [address] [place] [address] Mime Artist: Ramsey Rodriguez MD RBC morphology finding Nom (Bld) ANISOCYTOSIS PRESENT Normal [facility] Comment on above: Performed By: #### B MP, CDP, HEPXA #### [facility] [address] [place] [address] Mime Artist: Ramsey Rodriguez MD WBC (Bld) [#/Vol] 4.8 10*3/uL Normal 3.5-11.3 [facility] Comment on above: Performed By: #### B MP, CDP, HEPXA #### [facility] [address] [place] [address] Mime Artist: Ramsey Rodriguez MD Glucose,Whole Bloodon 2023 Glucose [Mass/Vol] 94 mg/dL Normal 75-110 [facility] Glucose [Mass/Vol] 99 mg/dL Normal 75-110 [facility] Glucose [Mass/Vol] 81 mg/dL Normal 75-110 [facility] Glucose [Mass/Vol] 92 mg/dL Normal 75-110 [facility] XR CHEST PORTABLEon 08-24-19 XR CHEST PORTABLE EXAMINATION: ONE XRAY VIEW OF THE CHEST 08/24/2023 12:20 pm COMPARISON: Chest radiograph performed 08/21/2023. HISTORY: ORDERING SYSTEM PROVIDED HISTORY: increase resp rate TECHNOLOGIST PROVIDED HISTORY: increase resp rate FINDINGS: There is right basilar infiltrate. There is no pneumothorax. Heart is enlarged. There is an elevated right hemidiaphragm. The extrathoracic soft tissues are unremarkable. There are prominent air-filled loops of small bowel in the visualized abdomen. IMPRESSION: Cardiomegaly with right basilar infiltrate concerning for pneumonia. Interpreted by: Alex Martinez MD Signed by: Alex Martinez MD 08/24/23 Final result Normal [facility] Basic Metab w/rfx MGon 08-22 Anion gap [Moles/Vol] 6 mmol/L Low 9-16 [facility] Comment on above: Performed By: #### B EDWARD, TROPI #### [facility] [address] [place] [address] Mime Artist: Ramsey Rodriguez MD Calcium [Mass/Vol] 8.1 mg/dL Low 8.6-10.4 [facility] Comment on above: Performed By: #### B MP, TROPI #### [facility] [address] [place] [address] Mime Artist: Ramsey Rodriguez MD Chloride [Moles/Vol] 107 mmol/L Normal 98-107 [facility] Comment on above: Performed By: #### B MP, TROPI #### [facility] [address] [place] [address] Mime Artist: Ramsey Rodriguez MD CO2 [Moles/Vol] 25 mmol/L Normal 20-31 [facility] Comment on above: Performed By: #### B MP, TROPI #### [facility] [address] [place] [address] Mime Artist: Ramsey Rodriguez MD Creatinine [Mass/Vol] 0.5 mg/dL Low 0.70-1.20 [facility] Comment on above: Performed By: #### B MP, TROPI #### [address] [id number] Mime Artist: Ramsey Rodriguez MD GFR/1.73 sq M.predicted among non-blacks MDRD (S/P/Bld) [Vol rate/Area] mL/min/{1.73_m2} Normal >60 [facility] Comment on above: Result Comment: These results are not intended for use in patients <18 years of age. eGFR results are calculated without a race factor using the 2020 CKD-EPI equation. Careful clinical correlation is recommended, particularly when comparing to results calculated using previous equations. The CKD-EPI equation is less accurate in patients with extremes of muscle mass, extra-renal metabolism of creatine, excessive creatine ingestion, or following therapy that affects renal tubular secretion. Performed By: #### B MP, TROPI #### [facility] [address] [place] [address] Mime Artist: Ramsey Rodriguez MD Glucose [Mass/Vol] 111 mg/dL High 74-99 [facility] Comment on above: Performed By: #### B MP, TROPI #### [facility] [address] [place] [address] Mime Artist: Ramsey Rodriguez MD Potassium [Moles/Vol] 4.1 mmol/L Normal 3.7-5.3 [facility] Comment on above: Performed By: #### Nicol LEON TROPI #### [address] [address] Mime Artist: Ramsey Rodriguez MD Sodium [Moles/Vol] 138 mmol/L Normal 136-145 [facility] Comment on above: Performed By: #### B EDWARD TROPI #### [address] [address] Mime Artist: Ramsey Rodriguez MD Urea nitrogen [Mass/Vol] 17 mg/dL Normal 8-23 [facility] Comment on above: Performed By: #### Nicol LEON TROPI #### [address] [address] Mime Artist: Ramsey Rodriguez MD CBC with Diffon 08-23-2023 Abs. Basophil <0.03 Normal 0.00-0.20 [facility] Comment on above: Performed By: #### Nicol LEON TROPAbram #### [address] [address] Mime Artist: Ramsey Rodriguez MD Abs.Imm.Granulocyte <0.03 Normal 0.00-0.30 [facility] Comment on above: Performed By: #### Nicol LEON TROPI #### [place] [address] Mime Artist: Ramsey Rodriguez MD Abs.Neutrophil (Seg) 4.44 k/uL Normal 1.50-8.10 [facility] Comment on above: Performed By: #### Nicol LEON TROPI #### [address] [address] Mime Artist: Ramsey Rodriguez MD Basophils/100 WBC (Bld) 0 % Normal 0-2 [facility] Comment on above: Performed By: #### B EDWARD, TROPI #### [facility] [address] [place] [address] Mime Artist: Ramsey Rodriguez MD Eosinophils (Bld) [#/Vol] 0.26 10*3/uL Normal 0.00-0.44 [facility] Comment on above: Performed By: #### B EDWARD, TROPI #### [facility] [address] [place] [address] Mime Artist: Ramsey Rodriguez MD Eosinophils/100 WBC (Bld) 4 % Normal 1-4 [facility] Comment on above: Performed By: #### B EDWARD, TROPI #### [facility] [address] [place] [address] Mime Artist: Ramsey Rodriguez MD Erythrocyte distribution width (RBC) [Ratio] 15.8 % High 11.8-14.4 [facility] Comment on above: Performed By: #### B EDWARD, TROPI #### [facility] [address] [place] [address] Mime Artist: Ramsey Rodriguez MD Hematocrit (Bld) [Volume fraction] 35.5 % Low 40.7-50.3 [facility] Comment on above: Performed By: #### B EDWARD, TROPI #### [facility] [address] [place] [address] Mime Artist: Ramsey Rodriguez MD Hemoglobin (Bld) [Mass/Vol] 10.8 g/dL Low 13.0-17.0 [facility] Comment on above: Performed By: #### B EDWARD, TROPI #### [facility] [address] [place] [address] Mime Artist: Ramsey Rodriguez MD Immature granulocytes/100 WBC (Bld) 0 % Normal 0 [facility] Comment on above: Performed By: #### B EDWARD, TROPI #### [address] [address] Mime Artist: Ramsey Rodriguez MD Lymphocytes (Bld) [#/Vol] 0.92 10*3/uL Low 1.10-3.70 [facility] Comment on above: Performed By: #### B MP, TROPI #### [place] [address] Mime Artist: Ramsey Rodriguez MD Lymphocytes/100 WBC (Bld) 15 % Low 24-43 [facility] Comment on above: Performed By: #### B EDWARD, TROPI #### [place] [address] Mime Artist: Ramsey Rodriguez MD MCH (RBC) [Entitic mass] 30.6 pg Normal 25.2-33.5 [facility] Comment on above: Performed By: #### B EDWARD, TROPI #### [place] [address] Mime Artist: Ramsey Rodriguez MD MCHC (RBC) [Mass/Vol] 30.4 g/dL Normal 28.4-34.8 [facility] Comment on above: Performed By: #### B EDWARD, TROPI #### [place] [address] Mime Artist: Ramsey Rodriguez MD MCV (RBC) [Entitic vol] 100.6 fL Normal 82.6-102.9 [facility] Comment on above: Performed By: #### B EDWARD, TROPI #### [place] [address] Mime Artist: Ramsey Rodriguez MD Monocytes (Bld) [#/Vol] 0.31 10*3/uL Normal 0.10-1.20 [facility] Comment on above: Performed By: #### B EDWARD, TROPI #### [address] [place] [address] Mime Artist: Ramsey Rodriguez MD Monocytes/100 WBC (Bld) 5 % Normal 3-12 [facility] Comment on above: Performed By: #### B MP, TROPI #### [facility] [address] [place] [address] Mime Artist: Ramsey Rodriguez MD Neutrophil (Seg) 76 % High 36-65 [facility] Comment on above: Performed By: #### B MP, TROPI #### [facility] [address] [place] [address] Mime Artist: Ramsey Rodriguez MD NRBC Automated 0.0 per 100 WBC Normal 0.0 [facility] Comment on above: Performed By: #### B EDWARD, TROPI #### [address] [address] Mime Artist: Ramsey Rodriguez MD Platelet mean volume (Bld) [Entitic vol] 9.9 fL Normal 8.1-13.5 [facility] Comment on above: Performed By: #### B EDWARD, TROPI #### [address] [address] Mime Artist: Ramsey Rodriguez MD Platelets (Bld) [#/Vol] 129 10*3/uL Low 138-453 [facility] Comment on above: Performed By: #### B EDWARD, TROPI #### [facility] [address] [place] [address] Mime Artist: Ramsey Rodriguez MD RBC (Bld) [#/Vol] 3.53 10*6/uL Low 4.21-5.77 [facility] Comment on above: Performed By: #### B MP, TROPI #### [facility] [address] [place] [address] Mime Artist: Ramsey Rodriguez MD RBC morphology finding Nom (Bld) ANISOCYTOSIS PRESENT Normal [facility] Comment on above: Performed By: #### B EDWARD TROPI #### [facility] [address] [place] [address] Mime Artist: Ramsey Rodriguez MD WBC (Bld) [#/Vol] 6.0 10*3/uL Normal 3.5-11.3 [facility] Comment on above: Performed By: #### B EDWARD, TROPI #### [facility] [address] [place] [address] Mime Artist: Ramsey Rodriguez MD Glucose,Whole Bloodon 2023 Glucose [Mass/Vol] 90 mg/dL Normal 75-110 [facility] Glucose [Mass/Vol] 94 mg/dL Normal 75-110 [facility] Glucose [Mass/Vol] 97 mg/dL Normal 75-110 [facility] Glucose [Mass/Vol] 110 mg/dL Normal 75-110 [facility] Magnesiumon 08-23-2023 Magnesium [Mass/Vol] 2.1 mg/dL Normal 1.6-2.4 [facility] Comment on above: Performed By: #### B EDWARD TROPI #### [address] [address] Mime Artist: Ramsey Rodriguez MD Phosphorus, Inorg.on 024 Phosphorus, Inorg. 1.7 mg/dL Low 2.5-4.5 [facility] Comment on above: Performed By: #### B EDWARD TROPI #### [facility] [address] [place] [address] Mime Artist: Ramsey Rodriguez MD Basic Metab w/rfx MGon 08-21 Anion gap [Moles/Vol] 8 mmol/L Low 9-16 [facility] Comment on above: Performed By: #### H EPXA, CBC, PTT, PT #### [facility] [address] [place] [id number] Mime Artist: Ramsey Rodriguez MD Calcium [Mass/Vol] 8.3 mg/dL Low 8.6-10.4 [facility] Comment on above: Performed By: #### H EPXA, CBC, PTT, PT #### [facility] [address] [place] [address] Mime Artist: Ramsey Rodriguez MD Chloride [Moles/Vol] 105 mmol/L Normal 98-107 [facility] Comment on above: Performed By: #### H EPXA, CBC, PTT, PT #### [facility] [address] [place] [address] Mime Artist: Ramsey Rodriguez MD CO2 [Moles/Vol] 25 mmol/L Normal 20-31 [facility] Comment on above: Performed By: #### H EPXA, CBC, PTT, PT #### [facility] [address] [place] [address] Mime Artist: Ramsey Rodriguez MD Creatinine [Mass/Vol] 0.6 mg/dL Low 0.70-1.20 [facility] Comment on above: Performed By: #### H EPXA, CBC, PTT, PT #### [facility] [address] [place] [address] Mime Artist: Ramsey Rodriguez MD GFR/1.73 sq M.predicted among non-blacks MDRD (S/P/Bld) [Vol rate/Area] mL/min/{1.73_m2} Normal >60 [facility] Comment on above: Result Comment: These results are not intended for use in patients <18 years of age. eGFR results are calculated without a race factor using the 2020 CKD-EPI equation. Careful clinical correlation is recommended, particularly when comparing to results calculated using previous equations. The CKD-EPI equation is less accurate in patients with extremes of muscle mass, extra-renal metabolism of creatine, excessive creatine ingestion, or following therapy that affects renal tubular secretion. Performed By: #### H EPXA, CBC, PTT, PT #### [facility] [address] [place] [address] Mime Artist: Ramsey Rodriguez MD Glucose [Mass/Vol] 105 mg/dL High 74-99 [facility] Comment on above: Performed By: #### H EPXA, CBC, PTT, PT #### [facility] [address] [place] [address] Mime Artist: Ramsey Rodriguez MD Potassium [Moles/Vol] 4.2 mmol/L Normal 3.7-5.3 [facility] Comment on above: Result Comment: SPEC IMEN SLIGHTLY HEMOLYZED, RESULTS MAY BE ADVERSELY AFFECTED. Performed By: #### H EPXA, CBC, PTT, PT #### [facility] [address] [place] [address] Mime Artist: Ramsey Rodriguez MD Sodium [Moles/Vol] 138 mmol/L Normal 136-145 [facility] Comment on above: Performed By: #### H EPXA, CBC, PTT, PT #### [facility] [address] [place] [address] Mime Artist: Ramsey Rodriguez MD Urea nitrogen [Mass/Vol] 25 mg/dL High 8-23 [facility] Comment on above: Performed By: #### H EPXA, CBC, PTT, PT #### [facility] [address] [place] [address] Mime Artist: Ramsey Rodriguez MD CBC with Diffon 08-22-2023 Abs. Basophil 0.03 k/uL Normal 0.00-0.20 [facility] Comment on above: Performed By: #### H EPXA, CBC, PTT, PT #### [facility] [address] [place] [address] Mime Artist: Ramsey Rodriguez MD Abs.Imm.Granulocyte 0.03 k/uL Normal 0.00-0.30 [facility] Comment on above: Performed By: #### H EPXA, CBC, PTT, PT #### [facility] [address] [place] [address] Mime Artist: Ramsey Rodriguez MD Abs.Neutrophil (Seg) 7.03 k/uL Normal 1.50-8.10 [facility] Comment on above: Performed By: #### H EPXA, CBC, PTT, PT #### [facility] [address] [place] [address] Mime Artist: Ramsey Rodriguez MD Basophils/100 WBC (Bld) 0 % Normal 0-2 [facility] Comment on above: Performed By: #### H EPXA, CBC, PTT, PT #### [facility] [address] [place] [address] Mime Artist: Ramsey Rodriguez MD Eosinophils (Bld) [#/Vol] 0.10 10*3/uL Normal 0.00-0.44 [facility] Comment on above: Performed By: #### H EPXA, CBC, PTT, PT #### [place] [address] Mime Artist: Ramsey Rodriguez MD Eosinophils/100 WBC (Bld) 1 % Normal 1-4 [facility] Comment on above: Performed By: #### H EPXA, CBC, PTT, PT #### [facility] [address] [place] [address] Mime Artist: Ramsey Rodriguez MD Erythrocyte distribution width (RBC) [Ratio] 16.0 % High 11.8-14.4 [facility] Comment on above: Performed By: #### H EPXA, CBC, PTT, PT #### [facility] [address] [place] [address] Mime Artist: Ramsey Rodriguez MD Hematocrit (Bld) [Volume fraction] 38.1 % Low 40.7-50.3 [facility] Comment on above: Performed By: #### H EPXA, CBC, PTT, PT #### [address] [address] Mime Artist: Ramsey Rodriguez MD Hemoglobin (Bld) [Mass/Vol] 11.9 g/dL Low 13.0-17.0 [facility] Comment on above: Performed By: #### H EPXA, CBC, PTT, PT #### [address] [address] Mime Artist: Ramsey Rodriguez MD Immature granulocytes/100 WBC (Bld) 0 % Normal 0 [facility] Comment on above: Performed By: #### H EPXA, CBC, PTT, PT #### [address] [address] Mime Artist: Ramsey Rodriguez MD Lymphocytes (Bld) [#/Vol] 0.78 10*3/uL Low 1.10-3.70 [facility] Comment on above: Performed By: #### H EPXA, CBC, PTT, PT #### [address] [address] Mime Artist: Ramsey Rodriguez MD Lymphocytes/100 WBC (Bld) 9 % Low 24-43 [facility] Comment on above: Performed By: #### H EPXA, CBC, PTT, PT #### [facility] [address] [place] [address] Mime Artist: Ramsey Rodriguez MD MCH (RBC) [Entitic mass] 30.8 pg Normal 25.2-33.5 [facility] Comment on above: Performed By: #### H EPXA, CBC, PTT, PT #### [facility] [address] [place] [address] Mime Artist: Ramsey Rodriguez MD MCHC (RBC) [Mass/Vol] 31.2 g/dL Normal 28.4-34.8 [facility] Comment on above: Performed By: #### H EPXA, CBC, PTT, PT #### [address] [address] Mime Artist: Ramsey Rodriguez MD MCV (RBC) [Entitic vol] 98.7 fL Normal 82.6-102.9 [facility] Comment on above: Performed By: #### H EPXA, CBC, PTT, PT #### [place] [address] Mime Artist: Ramsey Rodriguez MD Monocytes (Bld) [#/Vol] 0.32 10*3/uL Normal 0.10-1.20 [facility] Comment on above: Performed By: #### H EPXA, CBC, PTT, PT #### [place] [address] Mime Artist: Ramsey Rodriguez MD Monocytes/100 WBC (Bld) 4 % Normal 3-12 [facility] Comment on above: Performed By: #### H EPXA, CBC, PTT, PT #### [place] [address] Mime Artist: Ramsey Rodriguez MD Neutrophil (Seg) 86 % High 36-65 [facility] Comment on above: Performed By: #### H EPXA, CBC, PTT, PT #### [address] [address] Mime Artist: Ramsey Rodriguez MD NRBC Automated 0.0 per 100 WBC Normal 0.0 [facility] Comment on above: Performed By: #### H EPXA, CBC, PTT, PT #### [address] [address] Mime Artist: Ramsey Rodriguez MD Platelet mean volume (Bld) [Entitic vol] 10.1 fL Normal 8.1-13.5 [facility] Comment on above: Performed By: #### H EPXA, CBC, PTT, PT #### [facility] [address] [place] [address] Mime Artist: Ramsey Rodriguez MD Platelets (Bld) [#/Vol] 140 10*3/uL Normal 138-453 [facility] Comment on above: Performed By: #### H EPXA, CBC, PTT, PT #### [facility] [address] [place] [address] Mime Artist: Ramsey Rodriguez MD RBC (Bld) [#/Vol] 3.86 10*6/uL Low 4.21-5.77 [facility] Comment on above: Performed By: #### H EPXA, CBC, PTT, PT #### [facility] [address] [place] [address] Mime Artist: Ramsey Rodriguez MD RBC morphology finding Nom (Bld) ANISOCYTOSIS PRESENT Normal [facility] Comment on above: Performed By: #### H EPXA, CBC, PTT, PT #### [facility] [address] [place] [address] Mime Artist: Ramsey Rodriguez MD WBC (Bld) [#/Vol] 8.3 10*3/uL Normal 3.5-11.3 [facility] Comment on above: Performed By: #### H EPXA, CBC, PTT, PT #### [facility] [address] [place] [address] Mime Artist: Ramsey Rodriguez MD Glucose,Whole Bloodon 2023 Glucose [Mass/Vol] 96 mg/dL Normal 75-110 [facility] Glucose [Mass/Vol] 86 mg/dL Normal 75-110 [facility] Glucose [Mass/Vol] 84 mg/dL Normal 75-110 [facility] Glucose [Mass/Vol] 112 mg/dL High 75-110 [facility] Glucose [Mass/Vol] 125 mg/dL High 75-110 [facility] Glucose [Mass/Vol] 127 mg/dL High 75-110 [facility] Magnesiumon 08-22-2023 Magnesium [Mass/Vol] 1.8 mg/dL Normal 1.6-2.4 [facility] Comment on above: Performed By: #### H EPXA, CBC, PTT, PT #### [facility] [address] [place] [address] Mime Artist: Ramsey Rodriguez MD Phosphorus, Inorg.on 024 Phosphorus, Inorg. 2.2 mg/dL Low 2.5-4.5 [facility] Comment on above: Performed By: #### H EPXA, CBC, PTT, PT #### [facility] [address] [place] [address] Mime Artist: Ramsey Rodriguez MD Basic Metab w/rfx MGon 08-20 Anion gap [Moles/Vol] 10 mmol/L Normal 9-16 [facility] Comment on above: Performed By: #### H EPXA, CBC, PTT, PT #### [facility] [address] [place] [address] Mime Artist: Ramsey Rodriguez MD Calcium [Mass/Vol] 9.0 mg/dL Normal 8.6-10.4 [facility] Comment on above: Performed By: #### H EPXA, CBC, PTT, PT #### [facility] [address] [place] [address] Mime Artist: Ramsey Rodriguez MD Chloride [Moles/Vol] 105 mmol/L Normal 98-107 [facility] Comment on above: Performed By: #### H EPXA, CBC, PTT, PT #### [facility] [address] [place] [address] Mime Artist: Ramsey Rodriguez MD CO2 [Moles/Vol] 27 mmol/L Normal 20-31 [facility] Comment on above: Performed By: #### H EPXA, CBC, PTT, PT #### [facility] [address] [place] [address] Mime Artist: Ramsey Rodriguez MD Creatinine [Mass/Vol] 0.7 mg/dL Normal 0.70-1.20 [facility] Comment on above: Performed By: #### H EPXA, CBC, PTT, PT #### [facility] [address] [place] [address] Mime Artist: Ramsey Rodriguez MD GFR/1.73 sq M.predicted among non-blacks MDRD (S/P/Bld) [Vol rate/Area] 89 mL/min/{1.73_m2} Normal >60 [facility] Comment on above: Result Comment: These results are not intended for use in patients <18 years of age. eGFR results are calculated without a race factor using the 2020 CKD-EPI equation. Careful clinical correlation is recommended, particularly when comparing to results calculated using previous equations. The CKD-EPI equation is less accurate in patients with extremes of muscle mass, extra-renal metabolism of creatine, excessive creatine ingestion, or following therapy that affects renal tubular secretion. Performed By: #### H EPXA, CBC, PTT, PT #### [facility] [address] [place] [address] Mime Artist: Ramsey Rodriguez MD Glucose [Mass/Vol] 146 mg/dL High 74-99 [facility] Comment on above: Performed By: #### H EPXA, CBC, PTT, PT #### [facility] [address] [place] [address] Mime Artist: Ramsey Rodriguez MD Potassium [Moles/Vol] 4.4 mmol/L Normal 3.7-5.3 [facility] Comment on above: Performed By: #### H EPXA, CBC, PTT, PT #### [facility] [address] [place] [address] Mime Artist: Ramsey Rodriguez MD Sodium [Moles/Vol] 142 mmol/L Normal 136-145 [facility] Comment on above: Performed By: #### H EPXA, CBC, PTT, PT #### [facility] [address] [place] [address] Mime Artist: Ramsey Rodriguez MD Urea nitrogen [Mass/Vol] 25 mg/dL High 8-23 [facility] Comment on above: Performed By: #### H EPXA, CBC, PTT, PT #### [facility] [address] [place] [address] Mime Artist: Ramsey Rodriguez MD CBC with Diffon 08-21-2023 Abs. Basophil 0.00 k/uL Normal 0.0-0.2 [facility] Comment on above: Performed By: #### H EPXA, CBC, PTT, PT #### [facility] [employer] [address] [place] [address] [id number] Mime Artist: Ramsey Rodriguez MD Abs.Imm.Granulocyte 0.00 k/uL Normal 0.00-0.30 [facility] Comment on above: Performed By: #### H EPXA, CBC, PTT, PT #### [facility] [employer] [address] [place] [address] [phone] Mime Artist: Ramsey Rodriguez MD Abs.Neutrophil (Seg) 10.86 k/uL High 1.8-7.7 [facility] Comment on above: Performed By: #### H EPXA, CBC, PTT, PT #### [facility] [employer] [address] [place] [address] [phone] Mime Artist: Ramsey Rodriguez MD Basophils/100 WBC (Bld) 0 % Normal 0-2 [facility] Comment on above: Performed By: #### H EPXA, CBC, PTT, PT #### [facility] [employer] [address] [place] [address] [phone] Mime Artist: Ramsey Rodriguez MD Eosinophils (Bld) [#/Vol] 0.00 10*3/uL Normal 0.0-0.4 [facility] Comment on above: Performed By: #### H EPXA, CBC, PTT, PT #### [facility] [employer] [address] [place] [address] 22957 Mime Artist: Ramsey Rodriguez MD Eosinophils/100 WBC (Bld) 0 % Low 1-4 [facility] Comment on above: Performed By: #### H EPXA, CBC, PTT, PT #### [facility] [employer] [address] [place] [address] [phone] Mime Artist: Ramsey Rodriguez MD Erythrocyte distribution width (RBC) [Ratio] 15.7 % High 11.8-14.4 [facility] Comment on above: Performed By: #### H EPXA, CBC, PTT, PT #### [facility] [employer] [address] [place] [address] [phone] Mime Artist: Ramsey Rodriguez MD Hematocrit (Bld) [Volume fraction] 40.8 % Normal 40.7-50.3 [facility] Comment on above: Performed By: #### H EPXA, CBC, PTT, PT #### [facility] [employer] [address] [place] [address] 34162 Mime Artist: Ramsey Rodriguez MD Hemoglobin (Bld) [Mass/Vol] 13.2 g/dL Normal 13.0-17.0 [facility] Comment on above: Performed By: #### H EPXA, CBC, PTT, PT #### [facility] [employer] [address] [place] [address] [phone] Mime Artist: Ramsey Rodriguez MD Immature granulocytes/100 WBC (Bld) 0 % Normal 0 [facility] Comment on above: Performed By: #### H EPXA, CBC, PTT, PT #### [facility] [employer] [address] [place] [address] 48429 Mime Artist: Ramsey Rodriguez MD Lymphocytes (Bld) [#/Vol] 0.73 10*3/uL Low 1.0-4.8 [facility] Comment on above: Performed By: #### H EPXA, CBC, PTT, PT #### [address] [address] Mime Artist: Ramsey Rodriguez MD Lymphocytes/100 WBC (Bld) 6 % Low 24-44 [facility] Comment on above: Performed By: #### H EPXA, CBC, PTT, PT #### [facility] [employer] [address] [place] [address] [phone] Mime Artist: Ramsey Rodriguez MD MCH (RBC) [Entitic mass] 30.3 pg Normal 25.2-33.5 [facility] Comment on above: Performed By: #### H EPXA, CBC, PTT, PT #### [address] [address] Mime Artist: Ramsey Rodriguez MD MCHC (RBC) [Mass/Vol] 32.4 g/dL Normal 28.4-34.8 [facility] Comment on above: Performed By: #### H EPXA, CBC, PTT, PT #### [facility] [employer] [address] [place] [address] [phone] Mime Artist: Ramsey Rodriguez MD MCV (RBC) [Entitic vol] 93.8 fL Normal 82.6-102.9 [facility] Comment on above: Performed By: #### H EPXA, CBC, PTT, PT #### [address] [address] Mime Artist: Ramsey Rodriguez MD Monocytes (Bld) [#/Vol] 0.61 10*3/uL Normal 0.1-0.8 [facility] Comment on above: Performed By: #### H EPXA, CBC, PTT, PT #### [facility] [employer] [address] [place] [address] 71671 Mime Artist: Ramsey Rodriguez MD Monocytes/100 WBC (Bld) 5 % Normal 1-7 [facility] Comment on above: Performed By: #### H EPXA, CBC, PTT, PT #### [address] [address] Mime Artist: Ramsey Rodriguez MD Morphology Edmond (Bld) [Interp] ANISOCYTOSIS PRESENT Normal [facility] Comment on above: Performed By: #### H EPXA, CBC, PTT, PT #### [address] [address] Mime Artist: Ramsey Rodriguez MD Neutrophil (Seg) 89 % High 36-66 [facility] Comment on above: Performed By: #### H EPXA, CBC, PTT, PT #### [address] [address] Mime Artist: Ramsey Rodriguez MD NRBC Automated 0.0 per 100 WBC Normal 0.0 [facility] Comment on above: Performed By: #### H EPXA, CBC, PTT, PT #### [address] [address] Mime Artist: Ramsey Rodriguez MD Platelet mean volume (Bld) [Entitic vol] 10.0 fL Normal 8.1-13.5 [facility] Comment on above: Performed By: #### H EPXA, CBC, PTT, PT #### [address] [address] Mime Artist: Ramsey Rodriguez MD Platelets (Bld) [#/Vol] 197 10*3/uL Normal 138-453 [facility] Comment on above: Performed By: #### H EPXA, CBC, PTT, PT #### [address] [address] Mime Artist: Ramsey Rodriguez MD RBC (Bld) [#/Vol] 4.35 10*6/uL Normal 4.21-5.77 [facility] Comment on above: Performed By: #### H EPXA, CBC, PTT, PT #### [facility] [employer] [address] [place] [address] [phone] Mime Artist: Ramsey Rodriguez MD WBC (Bld) [#/Vol] 12.2 10*3/uL High 3.5-11.3 [facility] Comment on above: Performed By: #### H EPXA, CBC, PTT, PT #### [facility] [address] [place] [phone] Mime Artist: Ramsey Rodriguez MD Glucose,Whole Bloodon 2023 Glucose [Mass/Vol] 95 mg/dL Normal 75-110 [facility] Glucose [Mass/Vol] 124 mg/dL High 75-110 [facility] Magnesiumon 08-21-2023 Magnesium [Mass/Vol] 2.0 mg/dL Normal 1.6-2.4 [facility] Comment on above: Performed By: #### H EPXA, CBC, PTT, PT #### [facility] [address] [place] [address] 99146 Mime Artist: Ramsey Rodriguez MD Phosphorus, Inorg.on 024 Phosphorus, Inorg. 3.9 mg/dL Normal 2.5-4.5 [facility] Comment on above: Performed By: #### H EPXA, CBC, PTT, PT #### [employer] [address] [place] [phone] Mime Artist: Ramsey Rodriguez MD Type + Screenon 08-21-2023 Type + Screen Sample Expiration 08/24/2023,2359 Arm Band Number BE [id number] ABO/Rh(D) O NEGATIVE Antibody Screen NEGATIVE Normal [facility] Comment on above: Performed By: #### H EPXA, CBC, PTT, PT #### [address] [phone] Mime Artist: Ramsey Rodriguez MD XR CHEST PORTABLEon 08-21-19 XR CHEST PORTABLE EXAMINATION: ONE XRAY VIEW OF THE CHEST 08/21/2023 12:12 pm COMPARISON: 08/20/2023 HISTORY: ORDERING SYSTEM PROVIDED HISTORY: Monitor pneumonia TECHNOLOGIST PROVIDED HISTORY: Monitor pneumonia FINDINGS: Enteric catheter remains in place. Right upper lobe and left lower lobe opacities again noted. No pneumothorax. No pleural effusion. Heart size stable. IMPRESSION: Persistent bilateral pulmonary opacities suggesting pneumonia Interpreted by: Dave Burns MD Signed by: Dave Burns MD 08/21/23 Final result Normal [facility] Basophils Auto (Bld) [#/Vol] on 08-20-2023 Basophils (Bld) [#/Vol] 0.1 10 3/uL 0.0-0.1 [facility] Basophils/100 WBC Auto (Bld) on 08-20-2023 Basophils/100 WBC (Bld) 0.3 % 0.2-2.0 [facility] Bilirubin Auto test strip (U ) [Mass/Vol]on 08-20-2023 Bilirubin (U) [Mass/Vol] Negative NEGATIVE [facility] CBC with Diffon 08-20-2023 Abs. Basophil 0.00 k/uL Normal 0.0-0.2 [facility] Comment on above: Performed By: #### H EPXA, CBC, PTT, PT #### [facility] [employer] [address] [place] [address] Mime Artist: Ramsey Rodriguez MD Abs.Imm.Granulocyte 0.00 k/uL Normal 0.00-0.30 [facility] Comment on above: Performed By: #### H EPXA, CBC, PTT, PT #### [facility] [employer] [address] [place] [address] [phone] Mime Artist: Ramsey Rodriguez MD Abs.Neutrophil (Seg) 12.60 k/uL High 1.8-7.7 [facility] Comment on above: Performed By: #### H EPXA, CBC, PTT, PT #### [facility] [employer] [address] [place] [address] [phone] Mime Artist: Ramsey Rodriguez MD Basophils/100 WBC (Bld) 0 % Normal 0-2 [facility] Comment on above: Performed By: #### H EPXA, CBC, PTT, PT #### [address] [address] Mime Artist: Ramsey Rodriguez MD Eosinophils (Bld) [#/Vol] 0.00 10*3/uL Normal 0.0-0.4 [facility] Comment on above: Performed By: #### H EPXA, CBC, PTT, PT #### [facility] [employer] [address] [place] [address] 34234 Mime Artist: Ramsey Rodriguez MD Eosinophils/100 WBC (Bld) 0 % Low 1-4 [facility] Comment on above: Performed By: #### H EPXA, CBC, PTT, PT #### [facility] [employer] [address] [place] [address] 19706 Mime Artist: Ramsey Rodriguez MD Erythrocyte distribution width (RBC) [Ratio] 15.6 % High 11.8-14.4 [facility] Comment on above: Performed By: #### H EPXA, CBC, PTT, PT #### [facility] [employer] [address] [place] [address] [phone] Mime Artist: Ramsey Rodriguez MD Hematocrit (Bld) [Volume fraction] 43.6 % Normal 40.7-50.3 [facility] Comment on above: Performed By: #### H EPXA, CBC, PTT, PT #### [facility] [employer] [address] [place] [address] [phone] Mime Artist: Ramsey Rodriguez MD Hemoglobin (Bld) [Mass/Vol] 14.0 g/dL Normal 13.0-17.0 [facility] Comment on above: Performed By: #### H EPXA, CBC, PTT, PT #### [facility] [employer] [address] [place] [address] [phone] Mime Artist: Ramsey Rodriguez MD Immature granulocytes/100 WBC (Bld) 0 % Normal 0 [facility] Comment on above: Performed By: #### H EPXA, CBC, PTT, PT #### [address] [address] Mime Artist: Ramsey Rodriguez MD Lymphocytes (Bld) [#/Vol] 0.67 10*3/uL Low 1.0-4.8 [facility] Comment on above: Performed By: #### H EPXA, CBC, PTT, PT #### [facility] [employer] [address] [place] [address] 63286 Mime Artist: Ramsey Rodriguez MD Lymphocytes/100 WBC (Bld) 5 % Low 24-44 [facility] Comment on above: Performed By: #### H EPXA, CBC, PTT, PT #### [facility] [employer] [address] [place] [address] 13672 Mime Artist: Ramsey Rodriguez MD MCH (RBC) [Entitic mass] 30.6 pg Normal 25.2-33.5 [facility] Comment on above: Performed By: #### H EPXA, CBC, PTT, PT #### [facility] [employer] [address] [place] [address] [phone] Mime Artist: Ramsey Rodriguez MD MCHC (RBC) [Mass/Vol] 32.1 g/dL Normal 28.4-34.8 [facility] Comment on above: Performed By: #### H EPXA, CBC, PTT, PT #### [facility] [employer] [address] [place] [address] 15051 Mime Artist: Ramsey Rodriguez MD MCV (RBC) [Entitic vol] 95.2 fL Normal 82.6-102.9 [facility] Comment on above: Performed By: #### H EPXA, CBC, PTT, PT #### [address] [address] Mime Artist: Ramsey Rodriguez MD Monocytes (Bld) [#/Vol] 0.13 10*3/uL Normal 0.1-0.8 [facility] Comment on above: Performed By: #### H EPXA, CBC, PTT, PT #### [address] [address] Mime Artist: Ramsey Rodriguez MD Monocytes/100 WBC (Bld) 1 % Normal 1-7 [facility] Comment on above: Performed By: #### H EPXA, CBC, PTT, PT #### [address] [address] Mime Artist: Ramsey Rodriguez MD Morphology Edmond (Bld) [Interp] ANISOCYTOSIS PRESENT Normal [facility] Comment on above: Performed By: #### H EPXA, CBC, PTT, PT #### [address] [address] Mime Artist: Ramsey Rodriguez MD Neutrophil (Seg) 94 % High 36-66 [facility] Comment on above: Performed By: #### H EPXA, CBC, PTT, PT #### [address] [address] Mime Artist: Ramsey Rodriguez MD NRBC Automated 0.0 per 100 WBC Normal 0.0 [facility] Comment on above: Performed By: #### H EPXA, CBC, PTT, PT #### [address] [address] Mime Artist: Ramsey Rodriguez MD Platelet mean volume (Bld) [Entitic vol] 10.1 fL Normal 8.1-13.5 [facility] Comment on above: Performed By: #### H EPXA, CBC, PTT, PT #### [address] [address] Mime Artist: Ramsey Rodriguez MD Platelets (Bld) [#/Vol] 200 10*3/uL Normal 138-453 [facility] Comment on above: Performed By: #### H EPXA, CBC, PTT, PT #### [address] [address] Mime Artist: Ramsey Rodriguez MD RBC (Bld) [#/Vol] 4.58 10*6/uL Normal 4.21-5.77 [facility] Comment on above: Performed By: #### H EPXA, CBC, PTT, PT #### [address] [address] Mime Artist: Ramsey Rodriguez MD WBC (Bld) [#/Vol] 13.4 10*3/uL High 3.5-11.3 [facility] Comment on above: Performed By: #### H EPXA, CBC, PTT, PT #### [address] [address] Mime Artist: Ramsey Rodriguez MD Comp Metabolic Profon 2023 Albumin [Mass/Vol] 3.5 g/dL Normal 3.5-5.2 [facility] Comment on above: Performed By: #### H EPXA, CBC, PTT, PT #### [facility] [employer] [address] [place] [phone] Mime Artist: Ramsey Rodriguez MD Albumin/Glob Ratio 1.0 Normal 1.0-2.5 [facility] Comment on above: Performed By: #### H EPXA, CBC, PTT, PT #### [facility] [employer] [address] [place] [address] [phone] Mime Artist: Ramsey Rodriguez MD Alkaline Phos 93 U/L Normal 40-129 [facility] Comment on above: Performed By: #### H EPXA, CBC, PTT, PT #### [facility] [address] [place] [phone] Mime Artist: Ramsey Rodriguez MD ALT [Catalytic activity/Vol] 58 U/L [facility] 10-50 [facility] Comment on above: Performed By: #### H EPXA, CBC, PTT, PT #### [facility] [employer] [address] [place] [address] 37728 Mime Artist: Ramsey Rodriguez MD Anion gap [Moles/Vol] 12 mmol/L Normal 9-16 [facility] Comment on above: Performed By: #### H EPXA, CBC, PTT, PT #### [facility] [employer] [address] [place] [address]007 Mime Artist: Ramsey Rodriguez MD AST [Catalytic activity/Vol] 75 U/L [facility] 10-50 [facility] Comment on above: Result Comment: SPEC IMEN SLIGHTLY HEMOLYZED, RESULTS MAY BE ADVERSELY AFFECTED. Performed By: #### H EPXA, CBC, PTT, PT #### [facility] [employer] [address] [place] [address] [phone] Mime Artist: Ramsey Rodriguez MD Bilirubin [Mass/Vol] 1.1 mg/dL Normal 0.00-1.20 [facility] Comment on above: Performed By: #### H EPXA, CBC, PTT, PT #### [facility] [address] [place] [address] [phone] Mime Artist: Ramsey Rodriguez MD Calcium [Mass/Vol] 9.1 mg/dL Normal 8.6-10.4 [facility] Comment on above: Performed By: #### H EPXA, CBC, PTT, PT #### [facility] [employer] [address] [place] [address] 26492 Mime Artist: Ramsey Rodriguez MD Chloride [Moles/Vol] 100 mmol/L Normal 98-107 [facility] Comment on above: Performed By: #### H EPXA, CBC, PTT, PT #### [facility] [place] [address] Mime Artist: Ramsey Rodriguez MD CO2 [Moles/Vol] 25 mmol/L Normal 20-31 [facility] Comment on above: Performed By: #### H EPXA, CBC, PTT, PT #### [facility] [address] [place] [phone] Mime Artist: Ramsey Rodriguez MD Creatinine [Mass/Vol] 0.8 mg/dL Normal 0.70-1.20 [facility] Comment on above: Performed By: #### H EPXA, CBC, PTT, PT #### [address] [address] Mime Artist: Ramsey Rodriguez MD GFR/1.73 sq M.predicted among non-blacks MDRD (S/P/Bld) [Vol rate/Area] 87 mL/min/{1.73_m2} Normal >60 [facility] Comment on above: Result Comment: These results are not intended for use in patients <18 years of age. eGFR results are calculated without a race factor using the 2020 CKD-EPI equation. Careful clinical correlation is recommended, particularly when comparing to results calculated using previous equations. The CKD-EPI equation is less accurate in patients with extremes of muscle mass, extra-renal metabolism of creatine, excessive creatine ingestion, or following therapy that affects renal tubular secretion. Performed By: #### H EPXA, CBC, PTT, PT #### [facility] [address] [place] [address] 19862 Mime Artist: Ramsey Rodriguez MD Glucose [Mass/Vol] 208 mg/dL High 74-99 [facility] Comment on above: Performed By: #### H EPXA, CBC, PTT, PT #### [facility] [address] [place] [address] Mime Artist: Ramsey Rodriguez MD Potassium [Moles/Vol] 4.4 mmol/L Normal 3.7-5.3 [facility] Comment on above: Result Comment: SPEC IMEN SLIGHTLY HEMOLYZED, RESULTS MAY BE ADVERSELY AFFECTED. Performed By: #### H EPXA, CBC, PTT, PT #### [facility] [place] [address] Mime Artist: Ramsey Rodriguez MD Protein [Mass/Vol] 7.9 g/dL Normal 6.6-8.7 [facility] Comment on above: Performed By: #### H EPXA, CBC, PTT, PT #### [facility] [address] [place] [address] Mime Artist: Ramsey Rodriguez MD Sodium [Moles/Vol] 137 mmol/L Normal 136-145 [facility] Comment on above: Performed By: #### H EPXA, CBC, PTT, PT #### [facility] [address] [place] [phone] Mime Artist: Ramsey Rodriguez MD Urea nitrogen [Mass/Vol] 26 mg/dL High 8-23 [facility] Comment on above: Performed By: #### H EPXA, CBC, PTT, PT #### [facility] [place] [address] Mime Artist: Ramsey Rodriguez MD Eosinophils/100 WBC Auto (Bl d)on 08-20-2023 Eosinophils/100 WBC (Bld) 0.1 % 0.9-7.0 [facility] Erythrocyte distribution wid th Auto (RBC) [Ratio]on 08-20-2023 Erythrocyte distribution width (RBC) [Ratio] 15.2 % 11.0-15.0 [facility] Estimated glomerular filtrat ion rate (GFR) non- Americanon 08-20-2023 GFR/1.73 sq M.predicted among non-blacks MDRD (S/P/Bld) [Vol rate/Area] mL/min/{1.73_m2} >=60 [facility] Globulin Calc (S) [Mass/Vol] on 08-20-2023 Globulin (S) [Mass/Vol] 5.3 g/dL [facility] Hematocrit Auto (Bld) [Volum e fraction]on 08-20-2023 Hematocrit (Bld) [Volume fraction] 40.8 % 42.0-54.0 [facility] Hemoglobin [Mass/volume] in Bloodon 08-20-2023 Hemoglobin (Bld) [Mass/Vol] 13.3 g/dL 14.0-18.0 [facility] Laboratory - Chemistry and C hemistry - challengeon 08-20-2023 Albumin [Mass/Vol] 3.2 g/dL 3.4-5.0 [facility] ALP [Catalytic activity/Vol] 104 U/L 46-116 [facility] ALT [Catalytic activity/Vol] 74 U/L 16-63 [facility] AST [Catalytic activity/Vol] 67 U/L 15-37 [facility] Bilirubin [Mass/Vol] 1.3 mg/dL 0.2-1.0 [facility] Calcium [Mass/Vol] 9.7 mg/dL 8.5-10.1 [facility] Chloride [Moles/Vol] 100 mmol/L 98-107 [facility] CO2 [Moles/Vol] 28.2 mmol/L 21.0-32.0 [facility] Creatinine [Mass/Vol] 1.05 mg/dL 0.70-1.30 [facility] GFR/1.73 sq M.predicted MDRD (S/P/Bld) [Vol rate/Area] mL/min/{1.73_m2} >=60 [facility] Glucose (U) [Mass/Vol] Negative NEGATIVE [facility] Glucose [Mass/Vol] 202 mg/dL 74-106 [facility] Ketones Ql (U) Negative NEGATIVE [facility] Lipase [Catalytic activity/Vol] 18.0 U/L 16.0-77.0 [facility] Natriuretic peptide B (Bld) [Mass/Vol] 470.0 pg/mL <=1800.0 [facility] pH (U) 5.0 [pH] 5.0-9.0 [facility] Potassium [Moles/Vol] 3.6 mmol/L 3.5-5.1 [facility] Protein [Mass/Vol] 8.5 g/dL 6.4-8.2 [facility] Sodium [Moles/Vol] 137 mmol/L 136-145 [facility] Specific gravity (U) [Rel density] 1.020 1.005-1.025 [facility] Urea nitrogen [Mass/Vol] 30.0 mg/dL 7.0-18.0 [facility] Urea nitrogen/Creatinine [Mass ratio] 28.6 mg/mg [facility] Urobilinogen Qn (U) 0.2 {Amy'U}/dL 0.2-1.0 [facility] Laboratory - Hematology and Cell countson 08-20-2023 Immature granulocytes/100 WBC (Bld) 0.4 % 0.0-0.5 [facility] Laboratory - Specimen inform ationon 08-20-2023 Appearance (U) CLEAR CLEAR [facility] Color (U) YELLOW YELLOW [facility] Laboratory - Urinalysison Leukocyte esterase Test strip Ql (U) Negative NEGATIVE [facility] Nitrite Ql (U) Negative NEGATIVE [facility] Protein Ql (U) Negative NEG/TRACE [facility] Lactic Acidon 08-20-2023 Lactic Acid,Whole Bl 3.6 mmol/L High 0.7-2.1 [facility] Comment on above: Performed By: #### H EPXA, CBC, PTT, PT #### [facility] [place] [address] Mime Artist: Ramsey Rodriguez MD Leukocytes [#/volume] correc александр for nucleated erythrocytes in Blood by Automated counon 08-20-2023 WBC corrected for nucl RBC Auto (Bld) [#/Vol] 15.6 10 3/uL 4.0-11.0 [facility] Lymphocytes Auto (Bld) [#/Vo l]on 08-20-2023 Lymphocytes (Bld) [#/Vol] 1.5 10 3/uL 1.2-3.8 [facility] Lymphocytes/100 WBC Auto (Bl d)on 08-20-2023 Lymphocytes/100 WBC (Bld) 9.6 % 20.5-60.0 [facility] MCH Auto (RBC) [Entitic mass ]on 08-20-2023 MCH (RBC) [Entitic mass] 30.6 pg 25.9-34.0 [facility] MCHC Auto (RBC) [Mass/Vol]on 08-20-2023 MCHC (RBC) [Mass/Vol] 32.6 g/dL 29.9-35.2 [facility] MCV Auto (RBC) [Entitic vol] on 08-20-2023 MCV (RBC) [Entitic vol] 93.8 fL 80.0-94.0 [facility] Magnesiumon 08-20-2023 Magnesium [Mass/Vol] 2.0 mg/dL Normal 1.6-2.4 [facility] Comment on above: Performed By: #### H EPXA, CBC, PTT, PT #### [facility] [place] [address] Mime Artist: Ramsey Rodriguez MD Monocytes Auto (Bld) [#/Vol] on 08-20-2023 Monocytes (Bld) [#/Vol] 0.5 10 3/uL 0.3-0.8 [facility] Monocytes/100 WBC Auto (Bld) on 08-20-2023 Monocytes/100 WBC (Bld) 3.2 % 1.7-12.0 [facility] Neutrophils Auto (Bld) [#/Vo l]on 08-20-2023 Neutrophils (Bld) [#/Vol] 13.4 10 3/uL 1.4-6.5 [facility] Neutrophils/100 WBC Auto (Bl d)on 08-20-2023 Neutrophils/100 WBC (Bld) 86.4 % 43.0-75.0 [facility] No Panel Informationon 08-19 Eosinophils # (Auto) 0.0 10 3/uL 0.0-0.7 [facility] Immature Granulocyte # (Auto) 0.06 10 3/uL 0.00-0.03 [facility] Urine Microscopic Review NO [facility] Platelet mean volume Auto (B ld) [Entitic vol]on 08-20-2023 Platelet mean volume (Bld) [Entitic vol] 9.8 fL 9.5-13.5 [facility] Platelets Auto (Bld) [#/Vol] on 08-20-2023 Platelets (Bld) [#/Vol] 220 10 3/uL 150-450 [facility] RBC Auto (Bld) [#/Vol]on RBC (Bld) [#/Vol] 4.35 10 6/uL 4.70-6.10 [facility] Serum or plasma albumin/glob ulin mass ratioon 08-20-2023 Albumin/Globulin [Mass ratio] 0.6 {ratio} [facility] Serum or plasma anion gap de terminationon 08-20-2023 Anion gap [Moles/Vol] 12.4 mmol/L [facility] Urine hemoglobin detection b y automated test stripon 08-20-2023 Hemoglobin Auto test strip Ql (U) Negative NEGATIVE [facility] XR CHEST PORTABLEon 08-20-19 XR CHEST PORTABLE EXAMINATION: ONE XRAY VIEW OF THE CHEST 08/20/2023 9:28 pm COMPARISON: None. HISTORY: ORDERING SYSTEM PROVIDED HISTORY: concern for pneumonia TECHNOLOGIST PROVIDED HISTORY: concern for pneumonia FINDINGS: Enteric tube is seen, its tip is below the diaphragm in good position and is likely within the gastric lumen. The mediastinum is unremarkable. The cardiac silhouette is normal size. Ill-defined airspace opacities are seen in the right upper lobe and right lower lobe suggesting pneumonia. IMPRESSION: Right upper lobe and right lower lobe pneumonia. Interpreted by: Amada Rosario MD Signed by: Amada Rosario MD 08/20/23 Final result Normal [facility] CBC AUTO DIFFon 08-15-2022 BASO # 0.0 103/ul Normal 0.0-0.1 [facility] Comment on above: Performed By: #### C BC #### [facility] [address] [address] [address] Emily Lauren Basophils/100 WBC (Bld) 0.3 % Normal 0.2-2.0 [facility] Comment on above: Performed By: #### C BC #### [facility] [address] [place] [address] Dr. Emily Lauren EO # 0.2 103/ul Normal 0.0-0.7 [facility] Comment on above: Performed By: #### C BC #### [facility] [address] [place] [address] Dr. Emily Lauren Eosinophils/100 WBC (Bld) 3.1 % Normal 0.9-7.0 [facility] Comment on above: Performed By: #### C BC #### [facility] [address] [place] [address] Dr. Emily Lauren Erythrocyte distribution width (RBC) [Ratio] 14.9 % Normal 11.0-15.0 [facility] Comment on above: Performed By: #### C BC #### [facility] [address] [place] [address] Dr. Emily Lauren Hematocrit (Bld) [Volume fraction] 39.9 % Critically low 42.0-54.0 [facility] Comment on above: Performed By: #### C BC #### [facility] [address] [place] [address] Dr. Emily Lauren Hemoglobin (Bld) [Mass/Vol] 12.9 g/dL Critically low 14.0-18.0 [facility] Comment on above: Performed By: #### C BC #### [facility] [address] [place] [address] Dr. Emily Lauren IG # 0.02 10e3/ul Normal 0.00-0.03 [facility] Comment on above: Performed By: #### C BC #### [facility] [address] [place] [address] Dr. Emily Lauren IG % 0.3 % Normal 0.0-0.5 [facility] Comment on above: Performed By: #### C BC #### [facility] [address] [place] [address] Dr. Emily Lauren LYMPH # 2.4 103/ul Normal 1.2-3.8 [facility] Comment on above: Performed By: #### C BC #### [facility] [address] [place] [address] Dr. Emily Lauren Lymphocytes/100 WBC (Bld) 30.7 % Normal 20.5-60.0 [facility] Comment on above: Performed By: #### C BC #### [facility] [address] [place] [address] Dr. Emily Lauren MANUAL DIFF REQ NO Normal [facility] Comment on above: Performed By: #### C BC #### [facility] [address] [address] [address] Emily Lauren MCH (RBC) [Entitic mass] 30.4 pg Normal 25.9-34.0 [facility] Comment on above: Performed By: #### C BC #### [facility] [address] [place] [address] Dr. Emily Lauren MCHC (RBC) [Mass/Vol] 32.3 g/dL Normal 29.9-35.2 [facility] Comment on above: Performed By: #### C BC #### [facility] [address] [place] [address] Dr. Emily Lauren MCV (RBC) [Entitic vol] 94.1 fL Critically high 80.0-94.0 [facility] Comment on above: Performed By: #### C BC #### [facility] [address] [place] [address] Dr. Emily Lauren MONO # 0.5 103/ul Normal 0.3-0.8 [facility] Comment on above: Performed By: #### C BC #### [facility] [address] [place] [address] Dr. Emily Lauren Monocytes/100 WBC (Bld) 5.9 % Normal 1.7-12.0 [facility] Comment on above: Performed By: #### C BC #### [facility] [address] [place] [address] Dr. Emily Lauren NEUT # 4.6 103/ul Normal 1.4-6.5 [facility] Comment on above: Performed By: #### C BC #### [facility] [address] [place] [address] Dr. Emily Lauren Neutrophils/100 WBC (Bld) 59.7 % Normal 43.0-75.0 [facility] Comment on above: Performed By: #### C BC #### [facility] [address] [place] [address] Dr. Emily Lauren Platelet mean volume (Bld) [Entitic vol] 9.7 fL Normal 9.5-13.5 [facility] Comment on above: Performed By: #### C BC #### [facility] [address] [place] [address] Dr. Emily Lauren PLT 176 103/ul Normal 150-450 [facility] Comment on above: Performed By: #### C BC #### [facility] [address] [place] [address] Dr. Emily Lauren RBC 4.24 106/ul Critically low 4.70-6.10 [facility] Comment on above: Performed By: #### C BC #### [facility] [address] [place] [address] Dr. Emily Lauren WBC 7.7 103/ul Normal 4.0-11.0 [facility] Comment on above: Performed By: #### C BC #### [facility] [address] [place] [address] Dr. Emily Lauren PROF 14(COMP METB)on 023 Albumin [Mass/Vol] 3.4 g/dL Normal 3.4-5.0 [facility] Comment on above: Performed By: #### C MP #### [facility] [address] [place] [address] Dr. Emily Lauren Albumin/Globulin [Mass ratio] 0.8 {ratio} Normal [facility] Comment on above: Performed By: #### C MP #### [facility] [address] [place] [address] Dr. Emily Lauren ALP [Catalytic activity/Vol] 81 U/L Normal 46-116 [facility] Comment on above: Performed By: #### C MP #### [facility] [address] [place] [address] Dr. Emily Lauren ALT [Catalytic activity/Vol] 44 U/L Normal 16-63 [facility] Comment on above: Performed By: #### C MP #### [facility] [address] [address] [address] Emily Lauren Anion gap [Moles/Vol] 11.3 mmol/L Normal [facility] Comment on above: Performed By: #### C MP #### [facility] [address] [address] [address] Emily Lauren AST [Catalytic activity/Vol] 41 U/L Critically high 15-37 [facility] Comment on above: Performed By: #### C MP #### [facility] [address] [address] [address] Emily Lauren Bilirubin [Mass/Vol] 1.4 mg/dL Critically high 0.2-1.0 [facility] Comment on above: Performed By: #### C MP #### [facility] [address] [place] [address] Dr. Emily Lauren Calcium [Mass/Vol] 9.2 mg/dL Normal 8.5-10.1 [facility] Comment on above: Performed By: #### C MP #### [facility] [address] [place] [address] Dr. Emily Lauren Chloride [Moles/Vol] 106 mmol/L Normal 98-107 [facility] Comment on above: Performed By: #### C MP #### [facility] [address] [address] [address] Emily Lauren CO2 [Moles/Vol] 29.8 mmol/L Normal 21.0-32.0 [facility] Comment on above: Performed By: #### C MP #### [facility] [address] [address] [address] Emily Lauren Creatinine [Mass/Vol] 0.83 mg/dL Normal 0.70-1.30 [facility] Comment on above: Performed By: #### C MP #### [facility] [address] [address] [address] Emily Lauren EGFR-AF CONGOLESE >60 Normal >=60 [facility] Comment on above: Performed By: #### C MP #### [facility] [address] [address] [address] Emily Lauren EGFR-NON AF CONGOLESE >60 Normal >=60 [facility] Comment on above: Performed By: #### C MP #### [facility] [address] [address] [address] Emily Lauren Globulin (S) [Mass/Vol] 4.2 g/dL Normal [facility] Comment on above: Performed By: #### C MP #### [facility] [address] [address] [address] Emily Lauren Glucose [Mass/Vol] 80 mg/dL Normal 74-106 [facility] Comment on above: Performed By: #### C MP #### [facility] [address] [address] [address] Emily Lauren Potassium [Moles/Vol] 4.1 mmol/L Normal 3.5-5.1 [facility] Comment on above: Performed By: #### C MP #### [facility] [address] [address] [address] Emily Lauren Protein [Mass/Vol] 7.6 g/dL Normal 6.4-8.2 [facility] Comment on above: Performed By: #### C MP #### [facility] [address] [address] [address] Emily Lauren Sodium [Moles/Vol] 143 mmol/L Normal 136-145 [facility] Comment on above: Performed By: #### C MP #### [facility] [address] [address] [address] Emily Lauren Urea nitrogen [Mass/Vol] 26.0 mg/dL Critically high 7.0-18.0 [facility] Comment on above: Performed By: #### C MP #### [facility] [address] [address] [address] Emily Lauren Urea nitrogen/Creatinine [Mass ratio] 31.3 mg/mg Normal [facility] Comment on above: Performed By: #### C MP #### [facility] [address] [address] [address] Emily Lauren Social History Date Type Detail Facility Start: 1940 Sex Assigned At Male F [facility] Sex Assigned At [facility] [employer] Other Vital Signs Date Time Vital Sign Value Performing Clinician Facility 10-03-2023 15:59-0400 Body height 175.26 cm [facility] 10-03-2023 15:59-0400 Body mass index (BMI) [Ratio] 23.8 kg/m2 [facility] 10-03-2023 15:59-0400 Body weight 73.02 kg [facility] 10-03-2023 15:59-0400 Diastolic blood pressure 72 mm[Hg] [facility] 10-03-2023 15:59-0400 Heart rate 64 /min [facility] 10-03-2023 15:59-0400 Respiratory rate 12 /min [facility] 10-03-2023 15:59-0400 Systolic blood pressure 119 mm[Hg] [facility] 06-14-2023 14:52-0500 Body height 175.26 cm [facility] 06-14-2023 14:52-0500 Body mass index (BMI) [Ratio] 25.2 kg/m2 [facility] 06-14-2023 14:52-0500 Body weight 77.67 kg [facility] 06-14-2023 14:52-0500 Diastolic blood pressure 77 mm[Hg] [facility] 06-14-2023 14:52-0500 Heart rate 66 /min [facility] 06-14-2023 14:52-0500 Systolic blood pressure 128 mm[Hg] [facility] 02-22-2023 13:30-0400 Body height 175.26 cm [facility] [employer] Other 02-22-2023 13:30-0400 Body mass index (BMI) [Ratio] 27.82 kg/m2 [facility] [employer] Other 02-22-2023 13:30-0400 Body weight 85.46 kg [facility] Other [facility] Other 02-22-2023 13:30-0400 Diastolic blood pressure 70 mm[Hg] [facility] Other [facility] Other 02-22-2023 13:30-0400 Respiratory rate 12 /min [facility] Other [facility] Other 02-22-2023 13:30-0400 Systolic blood pressure 109 mm[Hg] [facility] Other [facility] Other 08-14-2022 12:00-0400 Body height 175.26 cm [facility] Other [facility] Other 08-14-2022 12:00-0400 Body mass index (BMI) [Ratio] 28.29 kg/m2 [facility] Other 08-14-2022 12:00-0400 Body weight 86.91 kg [facility] Other [facility] Other 08-14-2022 12:00-0400 Diastolic blood pressure 80 mm[Hg] [facility] Other [facility] Other 08-14-2022 12:00-0400 Respiratory rate 20 /min [facility] Other [facility] Other 08-14-2022 12:00-0400 Systolic blood pressure 126 mm[Hg] [facility] Other [facility] Other Clinical Notes 08-14-2022 to 04-26-2023 Note Date & Type Note Facility 04-26-2023 Evaluation note Encounter Date Diagnosis Assessment Notes 05 Omero, 2024 Acute deep vein thrombosis (DVT) of right peroneal vein (ICD-10 - I82.451) [facility] Other 11-16-2023 Evaluation note* Encounter Date Diagnosis Assessment Notes [...] for 6months. Check DDimer and venous US. [facility] Other 11-14-2023 Evaluation note* Encounter Date Diagnosis Assessment Notes Treatment Notes Treatment Clinical Notes Feb, Closed fracture of one rib of right side with routine healing, subsequent encounter (ICD-10 - S22.31XD) [facility] Other 11-09-2023 Evaluation note* Encounter Date Diagnosis Assessment Notes Treatment Notes Treatment Clinical Notes Feb, Need for vaccination (ICD-10 - Z23) [facility] Other 11-03-2023 Evaluation note* Encounter Date Diagnosis [...] - E44.0) Protein/calorie supplements daily. Monitor weight. [facility] Other 08-21-2023 Evaluation note* Encounter Date Diagnosis Assessment Notes Treatment Notes Treatment Clinical Notes Nov, Acute deep vein thrombosis (DVT) of left peroneal vein (ICD-10 - I82.452) Nov, Pressure injury of deep tissue of sacral region (ICD-10 - L89.156) Nov, Skin ulcer of heel, limited to breakdown of skin, unspecified laterality (ICD-10 - L97.401) [facility] Other 04-26-2023 NotePROCEDURE: XR HAND MEEK MIN [...] other acute osseous abnormalities.. Electronically authenticated by: ROHINI PEARSON Date: 2022-08-15 11:57[facility]04-25-2023 Evaluation note* Encounter Date Diagnosis Assessment [...] Jul, Fatigue, unspecified type (ICD-10 - R53.83) [facility] [employer] Other Evaluation noteNo InformationNortExcela [facility] [employer] Other Evaluation note* Diagnosis Onset Date Resolution Status Anemia acute Chronic venous insufficiency acute Lumbar spondylosis acute Pharyngoesophageal dysphagia acute Pulmonary hypertension acute Right rib fracture acute [facility] Work Phone: Evaluation note* Diagnosis Onset Date Resolution Status Chronic bronchitis acute Chronic venous insufficiency acute HAP (hospital-acquired pneumonia) acute Hx of small bowel obstruction acute Lumbar spondylosis acute Pharyngoesophageal dysphagia acute Pulmonary hypertension acute [facility] Work Phone: Hismdzo general Narrative - Reported* Type Description Date Medical History Diarrhea Medical History Chronic venous insufficiency Medical History 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 Medical History Seasonal allergic rhinitis due t o pollen Surgical History CHOLECYSTECTOMY Surgical History APPENDECTOMY Surgical History TONSILLECTOMY Surgical History LEFT KNEE ARTHROSCOPY Hospitalization History SEE SURGICAL HX [facility] [employer] Other Hislvyi general Narrative - Reported* Type Description Date [...] LEFT KNEE ARTHROSCOPY Hospitalization History SEE SURGICAL HX [facility] [employer] Other Hiskewe general Narrative - Reported* Type Description Date [...] LEFT KNEE ARTHROSCOPY Hospitalization History SEE SURGICAL HX [facility] Other History general Narrative - Reported* Type [...] 01/09 23 Hospitalization History SEE SURGICAL HX [facility] Other History general Narrative - Reported* Type [...] 01/09 23 Hospitalization History SEE SURGICAL HX [facility] Other Summary Purpose Family History No Family History Records Found Relationship Condition Age at Onset Recorded Date/T jorge sister Unknown Advance Directives No Advanced Directives Records Found Advance Directive Response Recorded Date/ Time Advance Directives No May 11, 2023 3:49pm Advance Directive Response Recorded Date/ Time Advance Directives No May 11, 2023 4:49pm Chief Complaint and Reason for Visit Chief Complaint 3 month Reason for Visit Anemia Chronic venous insufficiency Lumbar spondylosis Pharyngoesophageal dysphagia Pulmonary hypertension Right rib fracture Chief Complaint Amb Documentation SNF follow up Reason for Visit Chronic bronchitis Chronic venous insufficiency HAP (hospital-acquired pneumonia) Hx of small bowel obstruction Lumbar spondylosis Pharyngoesophageal dysphagia Pulmonary hypertension Additional Source Comments REASON FOR VISIT (unrecogniz ed section and content) check upXray resultsLab Resu ltsTCMUpdateNo InformationDental ClearanceFR HHUpdateNo InformationNo InformationtcmTCMD/C [facility] ON 02/19UpdateNo InformationAt WillowsWillowsflu shotMBS resultsSpeech Therapyrefill (unrecognized sect ion and content) No Status Records FoundNo Status Records FoundNo Status Records Found INFORMATION SOURCE (unrecogn ized section and content) DATE CREATED AUTHOR 08/19/2022 [facility] DATE CREATED AUTHOR AUTHOR'S ORGANIZ ATION 09/27/2023 [facility] EPIC DATE CREATED AUTHOR AUTHOR'S ORGANIZ ATION 10/12/2023 [facility] Care Teams (unrecognized sec tion and content) Team Status: Active Member Role Status Dates Flex Isaacs , Primary Care Provider Active Team Status: Active Member Role Status Dates Flex Isaacs , DO Primary Care Provide r, Attending Provider Active Start: August 20, 2023 Team Status: Active Member Role Status Dates Flex Isaacs , DO Primary Care Provide r, Attending Provider Active Start: September 05, 2023 Team Status: Active Member Role Status Dates Flex Isaacs , Primary Care Provider Active Start: September 27, 2023 DONALD Scruggs Attending Provider Active St art: September 27, 2023 Team Status: Inactive Member Role Status Dates Flex Isaacs , DO Primary Care Provide r, Attending Provider Active Start: October 03, 2023 End: October 03, 2023 Team Status: Inactive Member Role Status Dates Flex Isaacs , DO Primary Care Provide r, Attending Provider Active Start: June 14, 2023 End: June 14, 2023 Goals (unrecognized section and content) Goals may be documented in a n alternate section FOR RECORDS PERTAINING TO PATIENTS WHO ARE [...] BE BASED ON THE PRIMARY CLINICAL RECORDS. [facility] [employer] [facility]. provides no warranty or guarantee of the accuracy or completeness of information in this document.
--- NOTE | 2023-10-23 09:38 | XR_ITS ---
The [address] [address] Patient Name: ROSANNA SOUSA MRN: [id number] date: 1940 Sex: M Assigned Patient Location: LAB Current Patient Location: Accession/Order Number: [id number] Exam Date: 10/23/2023 09:30 Report Date: 10/24/2023 05:30 At the request of: ANDREA BLOCK Procedure: XR chest 2V EXAMINATION: XR chest 2V HISTORY: Hospital Acquired Pneumonia J18.9 COMPARISON: XR chest 08/20/2023 FINDINGS: LUNGS: An expanded lungs with prominently elevated right hemidiaphragm and mild stranding and haziness within right lung base. VASCULATURE: No increased pulmonary vasculature. PLEURA: No pneumothorax, effusion, or pleural thickening. CARDIAC: No cardiomegaly or cardiac silhouette abnormality. MEDIASTINUM: No visible mass or adenopathy. BONES: No fracture or visible bone lesion. OTHER: Negative. XR/XR chest 2V IMPRESSION: 1. Low lung volume examination with mild right basilar infiltrates versus atelectasis; improved. Electronically authenticated by: LOUIS BROOKE Date: 10/24/2023 05:30
[2023-10-23 10:18] LABS: Alanine Aminotransferase 30 U/L (16-63); Albumin Globulin Ratio 0.6; Albumin Level 2.8 g/dL (3.4-5.0); Alkaline Phosphatase 98 U/L (46-116); Anion Gap 9.3; Aspartate Amino Transferase 39 U/L (15-37); Bilirubin Total 0.8 mg/dL (0.2-1.0); Calcium 8.8 mg/dL (8.5-10.1); Chloride 104 mmol/L (98-107); Estimated GFR (African America >60 (>=60); Estimated GFR (Non-African Ame >60 (>=60); Globulin 4.9 g/dL; Glucose 91 mg/dL (74-106); Potassium 4.3 mmol/L (3.5-5.1); Sodium 140 mmol/L (136-145); Total Protein 7.7 g/dL (6.4-8.2)
== END 2023-10-23 09:11 | disposition home or self-care (01) ==
LOC: LAB 09:11
PROVIDERS: PCP Internal Medicine; Visit Provider Internal Medicine
DX: J42 Unspecified chronic bronchitis (principal); D64.9 Anemia, unspecified; I27.20 Pulmonary hypertension, unspecified; I87.2 Venous insufficiency (chronic) (peripheral); J18.9 Pneumonia, unspecified organism; Y95 Nosocomial condition
CPT/HCPCS: 36415; 71046; 80053; 85025

== ENCOUNTER 2023-12-04 11:20 | Outpatient (OUT) | payer MEDICARE, OTHER, SELFPAY ==
--- OUTSIDE RECORDS SUMMARY | 2023-12-04 11:37 | XMS_ITS | CCD ---
Author Organization [facility] Care Team Providers Care Agriculture Department Chair Name Role Phone Flex Isaacs Unavailable DR [...] physicia Propensity to adverse reactions 5 Comment:Done [place] Other Medications Current Medications Medication Drug Class(es) Dates Sig (Normalized) Sig (Original) Albuterol (2 sources) beta2-Adrenergic Agonist Start: 10-03-2023 take 1.25 mg by inhalation twice daily Albuterol Sulfate Active 1.25 MG INHALATION Twice daily 180 30 October 03, 2023 12:00am Start: 09-27-2023 End: [...] 2023 4:03pm take 1 capsule by mo [facility] every six hours Acetaminophen 500 MG 1 capsule as needed Orally every 6 hrs Active take 2 tablets by mo ut every eight hours Tylenol 8 Hour 650 [...] 14, 2023 4:05pm take 1 tablet by [facility] every twelve hours Eliquis 5 MG 1 [...] October 03, 2023 4:06pm polyethylene glycol 3350 [id number] mg powder for oral solution (1 source) [...] as needed Orally Once a day Active Problems Active Problems Problem Classification Problem [...] (10 sources) Anemia; Translations: [Anemia, unspecified] Onset: 06-13-2023 Episodic Deficiency and other anemia (1 [...] 3 Episodic Other aftercare (2 sources) Other intermediate designer (current) drug therapy; Translations: [OTH COMMUNICATION LECTURER CURRENT DRUG THERAPY] Onset: 3 Episodic Other [...] 09-01 Anion gap [Moles/Vol] 6 mmol/L Low 9-16 [facility] Comment on above: Performed By: #### B MP, TROPI #### [facility] [address] [place], [place] [id number] [employer] Maker Machine: Ramsey Rodriguez MD Calcium [Mass/Vol] 8.7 mg/dL Normal 8.6-10.4 [facility] Comment on above: Performed By: #### B MP, TROPI #### [facility] [address], [place] [id number] [employer] Maker Machine: Ramsey Rodriguez MD Chloride [Moles/Vol] 102 mmol/L Normal 98-107 [facility] Comment on above: Performed By: #### B EDWARD, TROPI #### [facility] [place] [address] Slat Basket Maker Machine: Ramsey Rodriguez MD CO2 [Moles/Vol] 32 mmol/L High 20-31 [facility] Comment on above: Performed By: #### B EDWARD, TROPI #### [facility] [address] [place] [address] [employer] Maker Machine: Ramsey Rodriguez MD Creatinine [Mass/Vol] 0.5 mg/dL Low 0.70-1.20 [facility] Comment on above: Performed By: #### B EDWARD, TROPI #### [facility] [address] [place] [address] [employer] Maker Machine: Ramsey Rodriguez MD GFR/1.73 sq M.predicted among non-blacks MDRD (S/P/Bld) [Vol rate/Area] mL/min/{1.73_m2} Normal >60 [facility] Comment on above: Result Comment: These results [...] renal tubular secretion. Performed By: #### B EDWARD, TROPI #### [facility] [place] [address] [employer] Basket Maker Machine: Ramsey Rodriguez MD Glucose [Mass/Vol] 93 mg/dL Normal 74-99 [facility] Comment on above: Performed By: #### B EDWARD, TROPI #### [facility] [address] [place] [address] [employer] Maker Machine: Ramsey Rodriguez MD Potassium [Moles/Vol] 3.7 mmol/L Normal 3.7-5.3 [facility] Comment on above: Performed By: #### Nicol LEON TROPI #### [address] [address] [employer] Machine: Ramsey Rodriguez MD Sodium [Moles/Vol] 140 mmol/L Normal 136-145 [facility] Comment on above: Performed By: #### B EDWARD TROPI #### [address] [address] [employer] Machine: Ramsey Rodriguez MD Urea nitrogen [Mass/Vol] 14 mg/dL Normal 8-23 [facility] Comment on above: Performed By: #### B EDWARD TROPI #### [address] [address] [employer] Machine: Ramsey Rodriguez MD CBC with Diffon 09-02-2023 Abs. Basophil 0.03 k/uL Normal 0.00-0.20 [facility] Comment on above: Performed By: #### KAITLYNN Camarena MP #### [place] [address] [employer] Maker Machine: Ramsey Rodriguez MD Abs.Imm.Granulocyte 0.04 k/uL Normal 0.00-0.30 [facility] Comment on above: Performed By: #### B EDWARD TROPI #### [address] [address] [employer] Maker Machine: Ramsey Rodriguez MD Abs.Neutrophil (Seg) 4.12 k/uL Normal 1.50-8.10 [facility] Comment on above: Performed By: #### Nicol LEON TROPI #### [facility] [address] [place] [address] [employer] Maker Machine: Ramsey Rodriguez MD Basophils/100 WBC (Bld) 1 % Normal 0-2 [facility] Comment on above: Performed By: #### B MP, TROPI #### [address] [address] [employer] Machine: Ramsey Rodriguez MD Eosinophils (Bld) [#/Vol] 0.34 10*3/uL Normal 0.00-0.44 [facility] Comment on above: Performed By: #### B EDWARD, TROPI #### [facility] [address] [place] [address] [employer] Machine: Ramsey Rodriguez MD Eosinophils/100 WBC (Bld) 6 % High 1-4 [facility] Comment on above: Performed By: #### B EDWARD, TROPI #### [address] [address] [employer] Machine: Ramsey Rodriguez MD Erythrocyte distribution width (RBC) [Ratio] 16.0 % High 11.8-14.4 [facility] Comment on above: Performed By: #### B EDWARD, TROPI #### [address] [address] [employer] Machine: Ramsey Rodriguez MD Hematocrit (Bld) [Volume fraction] 33.4 % Low 40.7-50.3 [facility] Comment on above: Performed By: #### B EDWARD, TROPI #### [address] [address] [employer] Maker Machine: Ramsey Rodriguez MD Hemoglobin (Bld) [Mass/Vol] 10.6 g/dL Low 13.0-17.0 [facility] Comment on above: Performed By: #### B EDWARD, TROPI #### [address] [address] [employer] Maker Machine: Ramsey Rodriguez MD Immature granulocytes/100 WBC (Bld) 1 % High 0 [facility] Comment on above: Performed By: #### B EDWARD, TROPI #### [facility] [address] [place] [address] Sl[employer] Maker Machine: Ramsey Rodriguez MD Lymphocytes (Bld) [#/Vol] 0.96 10*3/uL Low 1.10-3.70 [facility] Comment on above: Performed By: #### B MP, TROPI #### [facility] [address] [place] [address] Sl[employer] Maker Machine: Ramsey Rodriguez MD Lymphocytes/100 WBC (Bld) 17 % Low 24-43 [facility] Comment on above: Performed By: #### B MP, TROPI #### [facility] [address] [place] [address] [employer] Maker Machine: Ramsey Rodriguez MD MCH (RBC) [Entitic mass] 30.5 pg Normal 25.2-33.5 [facility] Comment on above: Performed By: #### B EDWARD, TROPI #### [facility] [address] [place] [address] [employer] Maker Machine: Ramsey Rodriguez MD MCHC (RBC) [Mass/Vol] 31.7 g/dL Normal 28.4-34.8 [facility] Comment on above: Performed By: #### B MP, TROPI #### [facility] [address] [place] [address] Sl[employer] Maker Machine: Ramsey Rodriguez MD MCV (RBC) [Entitic vol] 96.0 fL Normal 82.6-102.9 [facility] Comment on above: Performed By: #### B MP, TROPI #### [facility] [address] [place] [address] Sl[employer] Maker Machine: Ramsey Rodriguez MD Monocytes (Bld) [#/Vol] 0.33 10*3/uL Normal 0.10-1.20 [facility] Comment on above: Performed By: #### B MP, TROPI #### [facility] [address] [place] [address] Sl[employer] Maker Machine: Ramsey Rodriguez MD Monocytes/100 WBC (Bld) 6 % Normal 3-12 [facility] Comment on above: Performed By: #### B MP, TROPI #### [address] [address] [employer] Maker Machine: Ramsey Rodriguez MD Neutrophil (Seg) 69 % High 36-65 [facility] Comment on above: Performed By: #### B MP, TROPI #### [address] [address] [employer] Maker Machine: Ramsey Rodriguez MD NRBC Automated 0.0 per 100 WBC Normal 0.0 [facility] Comment on above: Performed By: #### B EDWARD, TROPI #### [address] [address] [employer] Maker Machine: Ramsey Rodriguez MD Platelet mean volume (Bld) [Entitic vol] 10.0 fL Normal 8.1-13.5 [facility] Comment on above: Performed By: #### B EDWARD TROPI #### [address] [address] [employer] Maker Machine: Ramsey Rodriguez MD Platelets (Bld) [#/Vol] 190 10*3/uL Normal 138-453 [facility] Comment on above: Performed By: #### B EDWARD, TROPI #### [address] [address] [employer] Maker Machine: Ramsey Rodriguez MD RBC (Bld) [#/Vol] 3.48 10*6/uL Low 4.21-5.77 [facility] Comment on above: Performed By: #### B MP, TROPI #### [address] [address] [employer] Maker Machine: Ramsey Rodriguez MD RBC morphology finding Nom (Bld) ANISOCYTOSIS PRESENT Normal [facility] Comment on above: Performed By: #### B MP, TROPI #### [facility] [address] [place] [address] [employer] Maker Machine: Ramsey Rodriguez MD WBC (Bld) [#/Vol] 5.8 10*3/uL Normal 3.5-11.3 [facility] Comment on above: Performed By: #### B MP, TROPI #### [facility] [address] [place] [address] [employer] Maker Machine: Ramsey Rodriguez MD Heparin Anti-Xaon 09-02-2023 Heparin Anti-Xa <0.10 Normal [facility] Comment on above: Performed By: #### B EDWARD, TROPI #### [facility] [address] [place] [address] [employer] Maker Machine: Ramsey Rodriguez MD Basic Metabolic Profon 08-31 Anion gap [Moles/Vol] 7 mmol/L Low 9-16 [facility] Comment on above: Performed By: #### B MP, CDP, HEPXA #### [address] [address] [employer] Maker Machine: Ramsey Rodriguez MD Calcium [Mass/Vol] 8.6 mg/dL Normal 8.6-10.4 [facility] Comment on above: Performed By: #### B MP, CDP, HEPXA #### [facility] [address] [place] [address] Sl[employer] Maker Machine: Ramsey Rodriguez MD Chloride [Moles/Vol] 102 mmol/L Normal 98-107 [facility] Comment on above: Performed By: #### B MP, CDP, HEPXA #### [facility] [address] [place] [address] Sl[employer] Maker Machine: Ramsey Rodriguez MD CO2 [Moles/Vol] 29 mmol/L Normal 20-31 [facility] Comment on above: Performed By: #### B MP, CDP, HEPXA #### [facility] [place] [address] [employer] Basket Maker Machine: Ramsey Rodriguez MD Creatinine [Mass/Vol] 0.6 mg/dL Low 0.70-1.20 [facility] Comment on above: Performed By: #### B MP CDP, HEPXA #### [facility] [address] [place] [address] [employer] Maker Machine: Ramsey Rodriguez MD GFR/1.73 sq M.predicted among non-blacks MDRD (S/P/Bld) [Vol rate/Area] mL/min/{1.73_m2} Normal >60 [facility] Comment on above: Result Comment: These results [...] By: #### B FABIANO LEON, HEPXA #### [facility] [address] [place] [address] Sl[employer] Maker Machine: Ramsey Rodriguez MD Glucose [Mass/Vol] 98 mg/dL Normal 74-99 [facility] Comment on above: Performed By: #### B EDWARD CDP, HEPXA #### [facility] [address] [place] [address] Sl[employer] Maker Machine: Ramsey Rodriguez MD Potassium [Moles/Vol] 4.0 mmol/L Normal 3.7-5.3 [facility] Comment on above: Performed By: #### B EDWARD CDP, HEPXA #### [facility] [address] [place] [address] [employer] Maker Machine: Ramsey Rodriguez MD Sodium [Moles/Vol] 138 mmol/L Normal 136-145 [facility] Comment on above: Performed By: #### B MP, CDP, HEPXA #### [address] [address] [employer] Maker Machine: Ramsey Rodriguez MD Urea nitrogen [Mass/Vol] 15 mg/dL Normal 8-23 [facility] Comment on above: Performed By: #### B MP, CDP, HEPXA #### [place] [address] [employer] Maker Machine: Ramsey Rodriguez MD CBC with Diffon 09-01-2023 Abs. Basophil 0.03 k/uL Normal 0.00-0.20 [facility] Comment on above: Performed By: #### B MP, CDP, HEPXA #### [address] [address] [employer] Maker Machine: Ramsey Rodriguez MD Abs.Imm.Granulocyte <0.03 Normal 0.00-0.30 [facility] Comment on above: Performed By: #### B MP, CDP, HEPXA #### [address] [address] [employer] Maker Machine: Ramsey Rodriguez MD Abs.Neutrophil (Seg) 5.05 k/uL Normal 1.50-8.10 [facility] Comment on above: Performed By: #### B MP, CDP, HEPXA #### [place] [address] [employer] Maker Machine: Ramsey Rodriguez MD Basophils/100 WBC (Bld) 0 % Normal 0-2 [facility] Comment on above: Performed By: #### B MP, CDP, HEPXA #### [facility] [address] [place] [address] Sl[employer] Maker Machine: Ramsey Rodriguez MD Eosinophils (Bld) [#/Vol] 0.30 10*3/uL Normal 0.00-0.44 [facility] Comment on above: Performed By: #### B MP, CDP, HEPXA #### [facility] [place] [address] [employer]at Basket Maker Machine: Ramsey Rodriguez MD Eosinophils/100 WBC (Bld) 4 % Normal 1-4 [facility] Comment on above: Performed By: #### B MP, CDP, HEPXA #### [facility] [address] [place] [address] Sl[employer] Maker Machine: Ramsey Rodriguez MD Erythrocyte distribution width (RBC) [Ratio] 16.0 % High 11.8-14.4 [facility] Comment on above: Performed By: #### B MP, CDP, HEPXA #### [facility] [address] [place] [address] Sl[employer] Maker Machine: Ramsey Rodriguez MD Hematocrit (Bld) [Volume fraction] 34.5 % Low 40.7-50.3 [facility] Comment on above: Performed By: #### B MP, CDP, HEPXA #### [facility] [address] [place] [address] [employer] Maker Machine: Ramsey Rodriguez MD Hemoglobin (Bld) [Mass/Vol] 10.9 g/dL Low 13.0-17.0 [facility] Comment on above: Performed By: #### B MP, CDP, HEPXA #### [facility] [address] [place] [address] Sl[employer] Maker Machine: Ramsey Rodriguez MD Immature granulocytes/100 WBC (Bld) 0 % Normal 0 [facility] Comment on above: Performed By: #### B MP, CDP, HEPXA #### [facility] [address] [place] [address] [employer] Maker Machine: Ramsey Rodriguez MD Lymphocytes (Bld) [#/Vol] 2.11 10*3/uL Normal 1.10-3.70 [facility] Comment on above: Performed By: #### B MP, CDP, HEPXA #### [address] [address] [employer] Machine: Ramsey Rodriguez MD Lymphocytes/100 WBC (Bld) 27 % Normal 24-43 [facility] Comment on above: Performed By: #### B MP, CDP, HEPXA #### [address] [address] [employer] Maker Machine: Ramsey Rodriguez MD MCH (RBC) [Entitic mass] 30.9 pg Normal 25.2-33.5 [facility] Comment on above: Performed By: #### B MP, CDP, HEPXA #### [address] [address] [employer] Maker Machine: Ramsey Rodriguez MD MCHC (RBC) [Mass/Vol] 31.6 g/dL Normal 28.4-34.8 [facility] Comment on above: Performed By: #### B MP, CDP, HEPXA #### [address] [address] [employer] Maker Machine: Ramsey Rodriguez MD MCV (RBC) [Entitic vol] 97.7 fL Normal 82.6-102.9 [facility] Comment on above: Performed By: #### B MP, CDP, HEPXA #### [address] [address] [employer] Maker Machine: Ramsey Rodriguez MD Monocytes (Bld) [#/Vol] 0.39 10*3/uL Normal 0.10-1.20 [facility] Comment on above: Performed By: #### B MP, CDP, HEPXA #### [address] [address] [employer] Maker Machine: Ramsey Rodriguez MD Monocytes/100 WBC (Bld) 5 % Normal 3-12 [facility] Comment on above: Performed By: #### B MP, CDP, HEPXA #### [address] [address] [employer] Maker Machine: Ramsey Rodriguez MD Neutrophil (Seg) 64 % Normal 36-65 [facility] Comment on above: Performed By: #### B MP, CDP, HEPXA #### [address] [address] [employer] Maker Machine: Ramsey Rodriguez MD NRBC Automated 0.0 per 100 WBC Normal 0.0 [facility] Comment on above: Performed By: #### B MP, CDP, HEPXA #### [address] [address] [employer] Machine: Ramsey Rodriguez MD Platelet mean volume (Bld) [Entitic vol] 10.5 fL Normal 8.1-13.5 [facility] Comment on above: Performed By: #### B MP, CDP, HEPXA #### [address] [address] [employer] Maker Machine: Ramsey Rodriguez MD Platelets (Bld) [#/Vol] 188 10*3/uL Normal 138-453 [facility] Comment on above: Performed By: #### B MP, CDP, HEPXA #### [address] [address] [employer] Machine: Ramsey Rodriguez MD RBC (Bld) [#/Vol] 3.53 10*6/uL Low 4.21-5.77 [facility] Comment on above: Performed By: #### B MP, CDP, HEPXA #### [address] [address] [employer] Machine: Ramsey Rodriguez MD RBC morphology finding Nom (Bld) ANISOCYTOSIS PRESENT Normal [facility] Comment on above: Performed By: #### B MP, CDP, HEPXA #### [address] [address] [employer] Machine: Ramsey Rodriguez MD WBC (Bld) [#/Vol] 7.9 10*3/uL Normal 3.5-11.3 [facility] Comment on above: Performed By: #### B MP, CDP, HEPXA #### [facility] [address] [place] [address] [employer] Maker Machine: Ramsey Rodriguez MD Heparin Anti-Xaon 09-01-2023 Heparin Anti-Xa 0.43 IU/L Normal [facility] Comment on above: Performed By: #### B MP, CDP, HEPXA #### [facility] [address] [place] [address] [employer] Machine: Ramsey Rodriguez MD Basic Metabolic Profon 08-30 Anion gap [Moles/Vol] 8 mmol/L Low 9-16 [facility] Comment on above: Performed By: #### B MP, CDP, HEPXA #### [facility] [address] [place] [address] [employer] Machine: Ramsey Rodriguez MD Calcium [Mass/Vol] 8.2 mg/dL Low 8.6-10.4 [facility] Comment on above: Performed By: #### B MP, CDP, HEPXA #### [facility] [address] [place] [address] [employer] Machine: Ramsey Rodriguez MD Chloride [Moles/Vol] 103 mmol/L Normal 98-107 [facility] Comment on above: Performed By: #### B MP, CDP, HEPXA #### [facility] [address] [place] [address] [employer] Maker Machine: Ramsey Rodriguez MD CO2 [Moles/Vol] 28 mmol/L Normal 20-31 [facility] Comment on above: Performed By: #### B MP, CDP, HEPXA #### [facility] [address] [place] [address] [employer] Maker Machine: Ramsey Rodriguez MD Creatinine [Mass/Vol] 0.6 mg/dL Low 0.70-1.20 [facility] Comment on above: Performed By: #### B FABIANO LEON, HEPXA #### [facility] [address] [place] [address] [employer] Machine: Ramsey Rodriguez MD GFR/1.73 sq M.predicted among non-blacks MDRD (S/P/Bld) [Vol rate/Area] mL/min/{1.73_m2} Normal >60 [facility] Comment on above: Result Comment: These results [...] By: #### B FABIANO LEON, HEPXA #### [facility] [address] [place] [address] [employer] Machine: Ramsey Rodriguez MD Glucose [Mass/Vol] 104 mg/dL High 74-99 [facility] Comment on above: Performed By: #### B FABIANO LEON, HEPXA #### [facility] [address] [place] [address] [employer] Machine: Ramsey Rodriguez MD Potassium [Moles/Vol] 3.5 mmol/L Low 3.7-5.3 [facility] Comment on above: Performed By: #### B FABIANO LEON, HEPXA #### [facility] [address] [place] [address] [employer] Machine: Ramsey Rodriguez MD Sodium [Moles/Vol] 139 mmol/L Normal 136-145 [facility] Comment on above: Performed By: #### B FABIANO LEON, HEPXA #### [facility] [address] [place] [address] [employer] Machine: Ramsey Rodriguez MD Urea nitrogen [Mass/Vol] 17 mg/dL Normal 8-23 [facility] Comment on above: Performed By: #### B MP, CDP, HEPXA #### [address] [address] [employer] Machine: Ramsey Rodriguez MD CBC with Diffon 08-31-2023 Abs. Basophil <0.03 Normal 0.00-0.20 [facility] Comment on above: Performed By: #### T ROPI #### [address] [address] [employer] Machine: Ramsey Rodriguez MD Abs.Imm.Granulocyte 0.03 k/uL Normal 0.00-0.30 [facility] Comment on above: Performed By: #### T ROPI #### [place] [address] [employer] Machine: Ramsey Rodriguez MD Abs.Neutrophil (Seg) 4.38 k/uL Normal 1.50-8.10 [facility] Comment on above: Performed By: #### T ROPI #### [address] [address] [employer] Machine: Ramsey Rodriguez MD Basophils/100 WBC (Bld) 0 % Normal 0-2 [facility] Comment on above: Performed By: #### T ROPI #### [address] [address] [employer] Machine: Ramsey Rodriguez MD Eosinophils (Bld) [#/Vol] 0.21 10*3/uL Normal 0.00-0.44 [facility] Comment on above: Performed By: #### T ROPI #### [address] [address] [employer] Machine: Ramsey Rodriguez MD Eosinophils/100 WBC (Bld) 3 % Normal 1-4 [facility] Comment on above: Performed By: #### T ROPI #### [address] [address] [employer]: Ramsey Rodriguez MD Erythrocyte distribution width (RBC) [Ratio] 15.9 % High 11.8-14.4 [facility] Comment on above: Performed By: #### T ROPI #### [address] [address] [employer] Machine: Ramsey Rodriguez MD Hematocrit (Bld) [Volume fraction] 33.3 % Low 40.7-50.3 [facility] Comment on above: Performed By: #### T ROPI #### [address] [address] [employer] Machine: Ramsey Rodriguez MD Hemoglobin (Bld) [Mass/Vol] 10.4 g/dL Low 13.0-17.0 [facility] Comment on above: Performed By: #### T ROPI #### [address] [address] [employer] Machine: Ramsey Rodriguez MD Immature granulocytes/100 WBC (Bld) 1 % High 0 [facility] Comment on above: Performed By: #### T ROPI #### [address] [address] [employer] Machine: Ramsey Rodriguez MD Lymphocytes (Bld) [#/Vol] 1.31 10*3/uL Normal 1.10-3.70 [facility] Comment on above: Performed By: #### T ROPI #### [address] [address] [employer] Machine: Ramsey Rodriguez MD Lymphocytes/100 WBC (Bld) 21 % Low 24-43 [facility] Comment on above: Performed By: #### T ROPI #### [address] [address] [employer] Machine: Ramsey Rodriguez MD MCH (RBC) [Entitic mass] 30.9 pg Normal 25.2-33.5 [facility] Comment on above: Performed By: #### T ROPI #### [address] [address] [employer] Machine: Ramsey Rodriguez MD MCHC (RBC) [Mass/Vol] 31.2 g/dL Normal 28.4-34.8 [facility] Comment on above: Performed By: #### T ROPI #### [address] [address] [employer]: Ramsey Rodriguez MD MCV (RBC) [Entitic vol] 98.8 fL Normal 82.6-102.9 [facility] Comment on above: Performed By: #### T ROPI #### [address] [address] [employer] Machine: Ramsey Rodriguez MD Monocytes (Bld) [#/Vol] 0.31 10*3/uL Normal 0.10-1.20 [facility] Comment on above: Performed By: #### T ROPI #### [address] [address] [employer]: Ramsey Rodriguez MD Monocytes/100 WBC (Bld) 5 % Normal 3-12 [facility] Comment on above: Performed By: #### T ROPI #### [address] [address] [employer]: Ramsey Rodriguez MD Neutrophil (Seg) 70 % High 36-65 [facility] Comment on above: Performed By: #### T ROPI #### [address] [address] [employer]: Ramsey Rodriguez MD NRBC Automated 0.0 per 100 WBC Normal 0.0 [facility] Comment on above: Performed By: #### T ROPI #### [address] [address] [employer]: Ramsey Rodriguez MD Platelet mean volume (Bld) [Entitic vol] 10.4 fL Normal 8.1-13.5 [facility] Comment on above: Performed By: #### T ROPI #### [address] [address] [employer]: Ramsey Rodriguez MD Platelets (Bld) [#/Vol] 160 10*3/uL Normal 138-453 [facility] Comment on above: Performed By: #### T ROPI #### [address] [address] [employer]: Ramsey Rodriguez MD RBC (Bld) [#/Vol] 3.37 10*6/uL Low 4.21-5.77 [facility] Comment on above: Performed By: #### T ROPI #### [address] [address] [employer]: Ramsey Rodriguez MD RBC morphology finding Nom (Bld) ANISOCYTOSIS PRESENT Normal [facility] Comment on above: Performed By: #### T ROPI #### [address] [address] [employer]: Ramsey Rodriguez MD WBC (Bld) [#/Vol] 6.3 10*3/uL Normal 3.5-11.3 [facility] Comment on above: Performed By: #### T ROPI #### [address] [address] [employer]: Ramsey Rodriguez MD Heparin Anti-Xaon 08-31-2023 Heparin Anti-Xa 0.39 IU/L Normal [facility] Comment on above: Performed By: #### H EPXA, CBC, PTT, PT #### [address] [place] [address] [employer]: Ramsey Rodriguez MD Basic Metabolic Profon 08-29 Anion gap [Moles/Vol] 7 mmol/L Low 9-16 [facility] Comment on above: Performed By: #### B MP, CDP, HEPXA #### [address] [address] [employer]: Ramsey Rodriguez MD Calcium [Mass/Vol] 8.2 mg/dL Low 8.6-10.4 [facility] Comment on above: Performed By: #### B MP, CDP, HEPXA #### [address] [address] [employer]: Ramsey Rodriguez MD Chloride [Moles/Vol] 104 mmol/L Normal 98-107 [facility] Comment on above: Performed By: #### B MP, CDP, HEPXA #### [address] [address] [employer]: Ramsey Rodriguez MD CO2 [Moles/Vol] 29 mmol/L Normal 20-31 [facility] Comment on above: Performed By: #### B MP, CDP, HEPXA #### [facility] [address] [place] [address] [employer]: Ramsey Rodriguez MD Creatinine [Mass/Vol] 0.7 mg/dL Normal 0.70-1.20 [facility] Comment on above: Performed By: #### B MP, CDP, HEPXA #### [facility] [address] [place] [address] [employer]: Ramsey Rodriguez MD GFR/1.73 sq M.predicted among non-blacks MDRD (S/P/Bld) [Vol rate/Area] mL/min/{1.73_m2} Normal >60 [facility] Comment on above: Result Comment: These results [...] renal tubular secretion. Performed By: #### B EDWARD CDP, HEPXA #### [facility] [address] [place] [address] [employer]: Ramsey Rodriguez MD Glucose [Mass/Vol] 94 mg/dL Normal 74-99 [facility] Comment on above: Performed By: #### B EDWARD CDP, HEPXA #### [facility] [address] [place] [address] [employer]: Ramsey Rodriguez MD Potassium [Moles/Vol] 3.6 mmol/L Low 3.7-5.3 [facility] Comment on above: Performed By: #### B EDWARD CDP, HEPXA #### [facility] [address] [place] [address] [employer]: Ramsey Rodriguez MD Sodium [Moles/Vol] 140 mmol/L Normal 136-145 [facility] Comment on above: Performed By: #### B EDWARD CDP, HEPXA #### [facility] [address] [place] [address] [employer]: Ramsey Rodriguez MD Urea nitrogen [Mass/Vol] 14 mg/dL Normal 8-23 [facility] Comment on above: Performed By: #### B EDWARD CDP, HEPXA #### [facility] [address] [place] [address] [employer]: Ramsey Rodriguez MD CBC with Diffon 08-30-2023 Abs. Basophil <0.03 Normal 0.00-0.20 [facility] Comment on above: Performed By: #### B MP, CDP, HEPXA #### [address] [address] [employer]: Ramsey Rodriguez MD Abs.Imm.Granulocyte 0.03 k/uL Normal 0.00-0.30 [facility] Comment on above: Performed By: #### B MP, CDP, HEPXA #### [address] [address] [employer]: Ramsey Rodriguez MD Abs.Neutrophil (Seg) 3.72 k/uL Normal 1.50-8.10 [facility] Comment on above: Performed By: #### B MP, CDP, HEPXA #### [address] [address] [employer]: Ramsey Rodriguez MD Basophils/100 WBC (Bld) 0 % Normal 0-2 [facility] Comment on above: Performed By: #### B MP, CDP, HEPXA #### [address] [address] [employer]: Ramsey Rodriguez MD Eosinophils (Bld) [#/Vol] 0.22 10*3/uL Normal 0.00-0.44 [facility] Comment on above: Performed By: #### B MP, CDP, HEPXA #### [address] [address] [employer]: Ramsey Rodriguez MD Eosinophils/100 WBC (Bld) 4 % Normal 1-4 [facility] Comment on above: Performed By: #### B MP, CDP, HEPXA #### [facility] [address] [place] [address] [employer]: Ramsey Rodriguez MD Erythrocyte distribution width (RBC) [Ratio] 15.8 % High 11.8-14.4 [facility] Comment on above: Performed By: #### B MP, CDP, HEPXA #### [facility] [address] [place] [address] [employer]: Ramsey Rodriguez MD Hematocrit (Bld) [Volume fraction] 31.1 % Low 40.7-50.3 [facility] Comment on above: Performed By: #### B MP, CDP, HEPXA #### [facility] [address] [place] [address] [employer]: Ramsey Rodriguez MD Hemoglobin (Bld) [Mass/Vol] 10.1 g/dL Low 13.0-17.0 [facility] Comment on above: Performed By: #### B MP, CDP, HEPXA #### [facility] [address] [place] [address] [employer]: Ramsey Rodriguez MD Immature granulocytes/100 WBC (Bld) 1 % High 0 [facility] Comment on above: Performed By: #### B MP, CDP, HEPXA #### [facility] [address] [place] [address] [employer]: Ramsey Rodriguez MD Lymphocytes (Bld) [#/Vol] 1.25 10*3/uL Normal 1.10-3.70 [facility] Comment on above: Performed By: #### B MP, CDP, HEPXA #### [facility] [address] [place] [address] [employer]: Ramsey Rodriguez MD Lymphocytes/100 WBC (Bld) 22 % Low 24-43 [facility] Comment on above: Performed By: #### B MP, CDP, HEPXA #### [facility] [address] [place] [address] [employer]: Ramsey Rodriguez MD MCH (RBC) [Entitic mass] 30.6 pg Normal 25.2-33.5 [facility] Comment on above: Performed By: #### B MP, CDP, HEPXA #### [facility] [address] [place] [address] [employer]: Ramsey Rodriguez MD MCHC (RBC) [Mass/Vol] 32.5 g/dL Normal 28.4-34.8 [facility] Comment on above: Performed By: #### B MP, CDP, HEPXA #### [address] [address] [employer]: Ramsey Rodriguez MD MCV (RBC) [Entitic vol] 94.2 fL Normal 82.6-102.9 [facility] Comment on above: Performed By: #### B MP, CDP, HEPXA #### [address] [address] [employer]: Ramsey Rodriguez MD Monocytes (Bld) [#/Vol] 0.35 10*3/uL Normal 0.10-1.20 [facility] Comment on above: Performed By: #### B MP, CDP, HEPXA #### [address] [address] [employer]: Ramsey Rodriguez MD Monocytes/100 WBC (Bld) 6 % Normal 3-12 [facility] Comment on above: Performed By: #### B MP, CDP, HEPXA #### [address] [address] [employer]: Ramsey Rodriguez MD Neutrophil (Seg) 67 % High 36-65 [facility] Comment on above: Performed By: #### B MP, CDP, HEPXA #### [facility] [address] [place] [address] [employer]: Ramsey Rodriguez MD NRBC Automated 0.0 per 100 WBC Normal 0.0 [facility] Comment on above: Performed By: #### B MP, CDP, HEPXA #### [facility] [address] [place] [address] [employer]: Ramsey Rodriguez MD Platelet mean volume (Bld) [Entitic vol] 10.2 fL Normal 8.1-13.5 [facility] Comment on above: Performed By: #### B MP, CDP, HEPXA #### [address] [place] [address] [employer]: Ramsey Rodriguez MD Platelets (Bld) [#/Vol] 158 10*3/uL Normal 138-453 [facility] Comment on above: Performed By: #### B MP, CDP, HEPXA #### [address] [address] [employer]: Ramsey Rodriguez MD RBC (Bld) [#/Vol] 3.30 10*6/uL Low 4.21-5.77 [facility] Comment on above: Performed By: #### B MP, CDP, HEPXA #### [address] [address] [employer]: Ramsey Rodriguez MD RBC morphology finding Nom (Bld) ANISOCYTOSIS PRESENT Normal [facility] Comment on above: Performed By: #### B MP, CDP, HEPXA #### [address] [address] [employer] Machine: aRmsey Rodriguez MD WBC (Bld) [#/Vol] 5.6 10*3/uL Normal 3.5-11.3 [facility] Comment on above: Performed By: #### B MP, CDP, HEPXA #### [address] [address] [employer]: Ramsey Rodriguez MD Heparin Anti-Xaon 08-30-2023 Heparin Anti-Xa 0.43 IU/L Normal [facility] Comment on above: Performed By: #### H EPXA, CBC, PTT, PT #### [address] [address] [employer]: Ramsey Rodriguez MD Heparin Anti-Xa 0.42 IU/L Normal [facility] Comment on above: Performed By: #### B FABIANO LEON, HEPXA #### [facility] [address] [place] [address] [employer]: Ramsey Rodriguez MD Heparin Anti-Xa 0.27 IU/L Normal [facility] Comment on above: Performed By: #### B MP, CDP, HEPXA #### [facility] [address] [place] [address] [employer]: Ramsey Rodriguez MD Troponinon 08-30-2023 Troponin, High Sens 138 ng/L Critically high 0-22 [facility] Comment on above: Result Comment: High Sensitivity Troponin values cannot be compared with other Troponin methodologies. Previous Alert Value Reported Performed By: #### B EDWARD CDP, HEPXA #### [address] [address] [employer]: Ramsey Rodriguez MD Basic Metabolic Profon 08-28 Anion gap [Moles/Vol] 6 mmol/L Low 9-16 [facility] Comment on above: Performed By: #### B EDWARD CDP, HEPXA #### [facility] [address] [place] [address] [employer]: Ramsey Rodriguez MD Calcium [Mass/Vol] 8.2 mg/dL Low 8.6-10.4 [facility] Comment on above: Performed By: #### B MP, CDP, HEPXA #### [facility] [address] [place] [address] [employer]: Ramsey Rodriguez MD Chloride [Moles/Vol] 106 mmol/L Normal 98-107 [facility] Comment on above: Performed By: #### B MP, CDP, HEPXA #### [facility] [address] [place] [address] [employer]: Ramsey Rodriguez MD CO2 [Moles/Vol] 29 mmol/L Normal 20-31 [facility] Comment on above: Performed By: #### B MP CDP, HEPXA #### [facility] [address] [place] [address] [employer]: Ramsey Rodriguez MD Creatinine [Mass/Vol] 0.6 mg/dL Low 0.70-1.20 [facility] Comment on above: Performed By: #### B MP, CDP, HEPXA #### [facility] [address] [place] [address] [employer]: Ramsey Rodriguez MD GFR/1.73 sq M.predicted among non-blacks MDRD (S/P/Bld) [Vol rate/Area] mL/min/{1.73_m2} Normal >60 [facility] Comment on above: Result Comment: These results [...] By: #### B FABIANO LEON, HEPXA #### [facility] [address] [place] [address] [employer]: Ramsey Rodriguez MD Glucose [Mass/Vol] 85 mg/dL Normal 74-99 [facility] Comment on above: Performed By: #### B EDWARD CDP, HEPXA #### [facility] [address] [place] [address] [employer]: Ramsey Rodriguez MD Potassium [Moles/Vol] 3.9 mmol/L Normal 3.7-5.3 [facility] Comment on above: Performed By: #### B EDWARD, CDP, HEPXA #### [facility] [address] [place] [address] [employer]: Ramsey Rodriguez MD Sodium [Moles/Vol] 141 mmol/L Normal 136-145 [facility] Comment on above: Performed By: #### B MP, CDP, HEPXA #### [address] [address] [employer]: Ramsey Rodriguez MD Urea nitrogen [Mass/Vol] 9 mg/dL Normal 8-23 [facility] Comment on above: Performed By: #### B MP, CDP, HEPXA #### [address] [address] [employer]: Ramsey Rodriguez MD CBC with Diffon 08-29-2023 Abs. Basophil <0.03 Normal 0.00-0.20 [facility] Comment on above: Performed By: #### B MP, CDP, HEPXA #### [address] [address] [employer]: Ramsey Rodriguez MD Abs.Imm.Granulocyte <0.03 Normal 0.00-0.30 [facility] Comment on above: Performed By: #### B MP, CDP, HEPXA #### [address] [address] [employer]: Ramsey Rodriguez MD Abs.Neutrophil (Seg) 3.04 k/uL Normal 1.50-8.10 [facility] Comment on above: Performed By: #### B MP, CDP, HEPXA #### [address] [address] [employer]: Ramsey Rodriguez MD Basophils/100 WBC (Bld) 0 % Normal 0-2 [facility] Comment on above: Performed By: #### B MP, CDP, HEPXA #### [address] [address] [employer]: Ramsey Rodriguez MD Eosinophils (Bld) [#/Vol] 0.28 10*3/uL Normal 0.00-0.44 [facility] Comment on above: Performed By: #### B MP, CDP, HEPXA #### [address] [address] [employer]: Ramsey Rodriguez MD Eosinophils/100 WBC (Bld) 6 % High 1-4 [facility] Comment on above: Performed By: #### B MP, CDP, HEPXA #### [address] [address] [employer]: Ramsey Rodriguez MD Erythrocyte distribution width (RBC) [Ratio] 15.7 % High 11.8-14.4 [facility] Comment on above: Performed By: #### B MP, CDP, HEPXA #### [place] [address] [employer]: Ramsey Rodriguez MD Hematocrit (Bld) [Volume fraction] 32.4 % Low 40.7-50.3 [facility] Comment on above: Performed By: #### B MP, CDP, HEPXA #### [place] [address] [employer]: Ramsey Rodriguez MD Hemoglobin (Bld) [Mass/Vol] 10.2 g/dL Low 13.0-17.0 [facility] Comment on above: Performed By: #### B MP, CDP, HEPXA #### [address] [address] [employer]: Ramsey Rodriguez MD Immature granulocytes/100 WBC (Bld) 0 % Normal 0 [facility] Comment on above: Performed By: #### B MP, CDP, HEPXA #### [address] [address] [employer]: Ramsey Rodriguez MD Lymphocytes (Bld) [#/Vol] 1.36 10*3/uL Normal 1.10-3.70 [facility] Comment on above: Performed By: #### B MP, CDP, HEPXA #### [address] [address] [employer]: Ramsey Rodriguez MD Lymphocytes/100 WBC (Bld) 27 % Normal 24-43 [facility] Comment on above: Performed By: #### B MP, CDP, HEPXA #### [address] [address] [employer]: Ramsey Rodriguez MD MCH (RBC) [Entitic mass] 30.8 pg Normal 25.2-33.5 [facility] Comment on above: Performed By: #### B MP, CDP, HEPXA #### [address] [address] [employer]: Ramsey Rodriguez MD MCHC (RBC) [Mass/Vol] 31.5 g/dL Normal 28.4-34.8 [facility] Comment on above: Performed By: #### B MP, CDP, HEPXA #### [address] [address] [employer]: Ramsey Rodriguez MD MCV (RBC) [Entitic vol] 97.9 fL Normal 82.6-102.9 [facility] Comment on above: Performed By: #### B MP, CDP, HEPXA #### [address] [address] [employer]: Ramsey Rodriguez MD Monocytes (Bld) [#/Vol] 0.37 10*3/uL Normal 0.10-1.20 [facility] Comment on above: Performed By: #### B MP, CDP, HEPXA #### [address] [address] [employer]: Ramsey Rodriguez MD Monocytes/100 WBC (Bld) 7 % Normal 3-12 [facility] Comment on above: Performed By: #### B MP, CDP, HEPXA #### [address] [address] [employer]: Ramsey Rodriguez MD Neutrophil (Seg) 60 % Normal 36-65 [facility] Comment on above: Performed By: #### B MP, CDP, HEPXA #### [address] [address] [employer]: Ramsey Rodriguez MD NRBC Automated 0.0 per 100 WBC Normal 0.0 [facility] Comment on above: Performed By: #### B MP, CDP, HEPXA #### [address] [address] [employer]: Ramsey Rodriguez MD Platelet mean volume (Bld) [Entitic vol] 10.4 fL Normal 8.1-13.5 [facility] Comment on above: Performed By: #### B MP, CDP, HEPXA #### [address] [address] [employer]: Ramsey Rodriguez MD Platelets (Bld) [#/Vol] 144 10*3/uL Normal 138-453 [facility] Comment on above: Performed By: #### B MP, CDP, HEPXA #### [address] [address] [employer]: Ramsey Rodriguez MD RBC (Bld) [#/Vol] 3.31 10*6/uL Low 4.21-5.77 [facility] Comment on above: Performed By: #### B MP, CDP, HEPXA #### [address] [address] [employer]: Ramsey Rodriguez MD RBC morphology finding Nom (Bld) ANISOCYTOSIS PRESENT Normal [facility] Comment on above: Performed By: #### B MP, CDP, HEPXA #### [facility] [address] [place] [address] [employer] Machine: Ramsey Rodriguez MD WBC (Bld) [#/Vol] 5.1 10*3/uL Normal 3.5-11.3 [facility] Comment on above: Performed By: #### B MP, CDP, HEPXA #### [address] [address] [employer]: Ramsey Rodriguez MD Heparin Anti-Xaon 08-29-2023 Heparin Anti-Xa 0.35 IU/L Normal [facility] Comment on above: Performed By: #### H EPXA, CBC, PTT, PT #### [address] [address] [employer]: Ramsey Rodriguez MD Heparin Anti-Xa 0.38 IU/L Normal [facility] Comment on above: Performed By: #### B MP, TROPI #### [address] [address] [employer]: Ramsey Rodriguez MD Heparin Anti-Xa 0.40 IU/L Normal [facility] Comment on above: Performed By: #### B MP, CDP, HEPXA #### [facility] [address] [place] [address] [employer]: Ramsey Rodriguez MD Magnesiumon 08-29-2023 Magnesium [Mass/Vol] 2.1 mg/dL Normal 1.6-2.4 [facility] Comment on above: Performed By: #### B MP, CDP, HEPXA #### [facility] [address] [place] [address] [employer]: Ramsey Rodriguez MD Phosphorus, Inorg.on 024 Phosphorus, Inorg. 2.7 mg/dL Normal 2.5-4.5 [facility] Comment on above: Performed By: #### B MP, CDP, HEPXA #### [facility] [address] [place] [address] [employer]: Ramsey Rodriguez MD Troponinon 08-29-2023 Troponin, High Sens 142 ng/L Critically high 0-22 [facility] Comment on above: Result Comment: High Sensitivity Troponin values cannot be compared with other Troponin methodologies. Previous Alert Value Reported Performed By: #### T ROPI #### [address] [address] [employer]: Ramsey Rodriguez MD Troponin, High Sens 159 ng/L Critically high 0-22 [facility] Comment on above: Result Comment: High Sensitivity Troponin values cannot be compared with other Troponin methodologies. Previous Alert Value Reported Performed By: #### B MP, CDP, HEPXA #### [facility] [address] [place] [address] [employer]: Ramsey Rodriguez MD Troponin, High Sens 162 ng/L Critically high 0-22 [facility] Comment on above: Result Comment: High Sensitivity Troponin values cannot be compared with other Troponin methodologies. Previous Alert Value Reported Performed By: #### B MP, CDP, HEPXA #### [facility] [address] [place] [address] [employer]: Ramsey Rodriguez MD APTTon 08-28-2023 aPTT Coag (Bld) [Time] 28.4 s Normal 23.0-36.5 [facility] Comment on above: Result Comment: IV Heparin Therapy Range: 66.0-92.0 sec Performed By: #### H EPXA, CBC, PTT, PT #### [facility] [address] [place] [address] [employer]: Ramsey Rodriguez MD Basic Metabolic Profon 08-27 Anion gap [Moles/Vol] 8 mmol/L Low 9-16 [facility] Comment on above: Performed By: #### B MP, TROPI #### [facility] [address] [place] [address] [employer]: Ramsey Rodriguez MD Calcium [Mass/Vol] 8.3 mg/dL Low 8.6-10.4 [facility] Comment on above: Performed By: #### B EDWARD, TROPI #### [facility] [address] [place] [address] [employer]: Ramsey Rodriguez MD Chloride [Moles/Vol] 103 mmol/L Normal 98-107 [facility] Comment on above: Performed By: #### B EDWARD, TROPI #### [facility] [address] [place] [address] [employer]: Ramsey Rodriguez MD CO2 [Moles/Vol] 27 mmol/L Normal 20-31 [facility] Comment on above: Performed By: #### B EDWARD, TROPI #### [address] [address] [employer]: Ramsey Rodriguez MD Creatinine [Mass/Vol] 0.5 mg/dL Low 0.70-1.20 [facility] Comment on above: Performed By: #### B EDWARD, TROPI #### [address] [address] [employer]: Ramsey Rodriguez MD GFR/1.73 sq M.predicted among non-blacks MDRD (S/P/Bld) [Vol rate/Area] mL/min/{1.73_m2} Normal >60 [facility] Comment on above: Result Comment: These results [...] renal tubular secretion. Performed By: #### B EDWARD, TROPI #### [facility] [address] [place] [address] [employer]: Ramsey Rodriguez MD Glucose [Mass/Vol] 112 mg/dL High 74-99 [facility] Comment on above: Performed By: #### B EDWARD TROPI #### [facility] [address] [place] [address] [employer]: Ramsey Rodriguez MD Potassium [Moles/Vol] 3.7 mmol/L Normal 3.7-5.3 [facility] Comment on above: Performed By: #### B EDWARD TROPI #### [facility] [address] [place] [address] [employer]: Ramsey Rodriguez MD Sodium [Moles/Vol] 138 mmol/L Normal 136-145 [facility] Comment on above: Performed By: #### B EDWARD TROPI #### [facility] [address] [place] [address] Slat Basket Maker Machine: Ramsey Rodriguez MD Urea nitrogen [Mass/Vol] 9 mg/dL Normal 8-23 [facility] Comment on above: Performed By: #### B EDWARD TROPI #### [facility] [address] [place] [address] Sl[employer] Machine: Ramsey Rodriguez MD Anion gap [Moles/Vol] 8 mmol/L Low 9-16 [facility] Comment on above: Performed By: #### T ROPI #### [facility] [address] [place] [address] Sl[employer] Machine: Ramsey Rodriguez MD Chloride [Moles/Vol] 105 mmol/L Normal 98-107 [facility] Comment on above: Performed By: #### T ROPI #### [facility] [address] [place] [address] [employer] Machine: Ramsey Rodriguez MD Potassium [Moles/Vol] 3.5 mmol/L Low 3.7-5.3 [facility] Comment on above: Performed By: #### T ROPI #### [facility] [address] [place] [address] [employer] Machine: Ramsey Rodriguez MD Sodium [Moles/Vol] 139 mmol/L Normal 136-145 [facility] Comment on above: Performed By: #### T ROPI #### [facility] [address] [place] [address] Sl[employer] Machine: Ramsey Rodriguez MD Calcium [Mass/Vol] 7.9 mg/dL Low 8.6-10.4 [facility] Comment on above: Performed By: #### T ROPI #### [facility] [address] [place] [address] [employer] Machine: Ramsey Rodriguez MD CO2 [Moles/Vol] 26 mmol/L Normal 20-31 [facility] Comment on above: Performed By: #### T ROPI #### [facility] [address] [place] [address] 65[address] [employer] Machine: Ramsey Rodriguez MD Creatinine [Mass/Vol] 0.5 mg/dL Low 0.70-1.20 [facility] Comment on above: Performed By: #### T ROPI #### [address] [address] Sl[employer] Machine: Ramsey Rodriguez MD GFR/1.73 sq M.predicted among non-blacks MDRD (S/P/Bld) [Vol rate/Area] mL/min/{1.73_m2} Normal >60 [facility] Comment on above: Result Comment: These results [...] secretion. Performed By: #### T ROPI #### [address] [address] [employer] Machine: Ramsey Rodriguez MD Glucose [Mass/Vol] 106 mg/dL High 74-99 [facility] Comment on above: Performed By: #### T ROPI #### [address] [address] [employer] Machine: Ramsey Rodriguez MD Urea nitrogen [Mass/Vol] 10 mg/dL Normal 8-23 [facility] Comment on above: Performed By: #### T ROPI #### [address] [address] [employer] Machine: Ramsey Rodriguez MD CBCon 08-28-2023 Erythrocyte distribution width (RBC) [Ratio] 15.6 % High 11.8-14.4 [facility] Comment on above: Performed By: #### H EPXA, CBC, PTT, PT #### [facility] [address] [place] [address] [employer] Machine: Ramsey Rodriguez MD Hematocrit (Bld) [Volume fraction] 34.1 % Low 40.7-50.3 [facility] Comment on above: Performed By: #### H EPXA, CBC, PTT, PT #### [facility] [address] [place] [address] [employer] Machine: Ramsey Rodriguez MD Hemoglobin (Bld) [Mass/Vol] 10.7 g/dL Low 13.0-17.0 [facility] Comment on above: Performed By: #### H EPXA, CBC, PTT, PT #### [facility] [address] [place] [address] Sl[employer] Machine: Ramsey Rodriguez MD MCH (RBC) [Entitic mass] 30.5 pg Normal 25.2-33.5 [facility] Comment on above: Performed By: #### H EPXA, CBC, PTT, PT #### [address] [address] [employer] Maker Machine: Ramsey Rodriguez MD MCHC (RBC) [Mass/Vol] 31.4 g/dL Normal 28.4-34.8 [facility] Comment on above: Performed By: #### H EPXA, CBC, PTT, PT #### [address] [address] [employer] Maker Machine: Ramsey Rodriguez MD MCV (RBC) [Entitic vol] 97.2 fL Normal 82.6-102.9 [facility] Comment on above: Performed By: #### H EPXA, CBC, PTT, PT #### [address] [address] [employer] Maker Machine: Ramsey Rodriguez MD NRBC Automated 0.0 per 100 WBC Normal 0.0 [facility] Comment on above: Performed By: #### H EPXA, CBC, PTT, PT #### [address] [address] [employer] Machine: Ramsey Rodriguez MD Platelet mean volume (Bld) [Entitic vol] 10.2 fL Normal 8.1-13.5 [facility] Comment on above: Performed By: #### H EPXA, CBC, PTT, PT #### [address] [address] [employer] Maker Machine: Ramsey Rodriguez MD Platelets (Bld) [#/Vol] 166 10*3/uL Normal 138-453 [facility] Comment on above: Performed By: #### H EPXA, CBC, PTT, PT #### [facility] [address] [place] [address] 16430 Sl[employer] Machine: Ramsey Rodriguez MD RBC (Bld) [#/Vol] 3.51 10*6/uL Low 4.21-5.77 [facility] Comment on above: Performed By: #### H EPXA, CBC, PTT, PT #### [address] [address] [employer] Machine: Ramsey Rodriguez MD WBC (Bld) [#/Vol] 6.5 10*3/uL Normal 3.5-11.3 [facility] Comment on above: Performed By: #### H EPXA, CBC, PTT, PT #### [address] [address] [employer] Machine: Ramsey Rodriguez MD CBC with Diffon 08-28-2023 Abs. Basophil <0.03 Normal 0.00-0.20 [facility] Comment on above: Performed By: #### T ROPI #### [address] [address] [employer] Machine: Ramsey Rodriguez MD Abs.Imm.Granulocyte <0.03 Normal 0.00-0.30 [facility] Comment on above: Performed By: #### T ROPI #### [address] [address] [employer] Machine: Ramsey Rodriguez MD Abs.Neutrophil (Seg) 4.13 k/uL Normal 1.50-8.10 [facility] Comment on above: Performed By: #### T ROPI #### [address] [address] [employer] Machine: Ramsey Rodriguez MD Basophils/100 WBC (Bld) 0 % Normal 0-2 [facility] Comment on above: Performed By: #### T ROPI #### [place] [address] [employer] Machine: Ramsey Rodriguez MD Eosinophils (Bld) [#/Vol] 0.27 10*3/uL Normal 0.00-0.44 [facility] Comment on above: Performed By: #### T ROPI #### [address] [address] Sl[employer] Maker Machine: Ramsey Rodriguez MD Eosinophils/100 WBC (Bld) 5 % High 1-4 [facility] Comment on above: Performed By: #### T ROPI #### [address] [address] [employer] Machine: Ramsey Rodriguez MD Erythrocyte distribution width (RBC) [Ratio] 15.7 % High 11.8-14.4 [facility] Comment on above: Performed By: #### T ROPI #### [address] [address] [employer] Maker Machine: Ramsey Rodriguez MD Hematocrit (Bld) [Volume fraction] 34.6 % Low 40.7-50.3 [facility] Comment on above: Performed By: #### T ROPI #### [address] [address] [employer] Maker Machine: Ramsey Rodriguez MD Hemoglobin (Bld) [Mass/Vol] 10.5 g/dL Low 13.0-17.0 [facility] Comment on above: Performed By: #### T ROPI #### [address] [address] [employer] Maker Machine: Ramsey Rodriguez MD Immature granulocytes/100 WBC (Bld) 0 % Normal 0 [facility] Comment on above: Performed By: #### T ROPI #### [address] [address] [employer] Machine: Ramsey Rodriguez MD Lymphocytes (Bld) [#/Vol] 1.01 10*3/uL Low 1.10-3.70 [facility] Comment on above: Performed By: #### T ROPI #### [address] [address] Sl[employer] Maker Machine: Ramsey Rodriguez MD Lymphocytes/100 WBC (Bld) 17 % Low 24-43 [facility] Comment on above: Performed By: #### T ROPI #### [address] [address] [employer] Machine: Ramsey Rodriguez MD MCH (RBC) [Entitic mass] 30.8 pg Normal 25.2-33.5 [facility] Comment on above: Performed By: #### T ROPI #### [place] [address] [employer] Maker Machine: Ramsey Rodriguez MD MCHC (RBC) [Mass/Vol] 30.3 g/dL Normal 28.4-34.8 [facility] Comment on above: Performed By: #### T ROPI #### [place] [address] [employer] Maker Machine: Ramsey Rodriguez MD MCV (RBC) [Entitic vol] 101.5 fL Normal 82.6-102.9 [facility] Comment on above: Performed By: #### T ROPI #### [place] [address] [employer] Maker Machine: Ramsey Rodriguez MD Monocytes (Bld) [#/Vol] 0.39 10*3/uL Normal 0.10-1.20 [facility] Comment on above: Performed By: #### T ROPI #### [place] [address] Sl[employer] Maker Machine: Ramsey Rodriguez MD Monocytes/100 WBC (Bld) 7 % Normal 3-12 [facility] Comment on above: Performed By: #### T ROPI #### [address] [address] Sl[employer] Maker Machine: Ramsey Rodriguez MD Neutrophil (Seg) 71 % High 36-65 [facility] Comment on above: Performed By: #### T ROPI #### [address] [address] Sl[employer] B[employer] Maker Machine: Ramsey Rodriguez MD NRBC Automated 0.0 per 100 WBC Normal 0.0 [facility] Comment on above: Performed By: #### T ROPI #### [address] [address] Sl[employer] Maker Machine: Ramsey Rodriguez MD Platelet mean volume (Bld) [Entitic vol] 10.3 fL Normal 8.1-13.5 [facility] Comment on above: Performed By: #### T ROPI #### [address] [address] Sl[employer] Basket Maker Machine: Ramsey Rodriguez MD Platelets (Bld) [#/Vol] 145 10*3/uL Normal 138-453 [facility] Comment on above: Performed By: #### T ROPI #### [address] [address] Sl[employer] Maker Machine: Ramsey Rodriguez MD RBC (Bld) [#/Vol] 3.41 10*6/uL Low 4.21-5.77 [facility] Comment on above: Performed By: #### T ROPI #### [address] [address] Sl[employer]asket Maker Machine: Ramsey Rodriguez MD RBC morphology finding Nom (Bld) ANISOCYTOSIS PRESENT Normal [facility] Comment on above: Performed By: #### T ROPI #### [address] [address] Sl[employer] Maker Machine: Ramsey Rodriguez MD WBC (Bld) [#/Vol] 5.8 10*3/uL Normal 3.5-11.3 [facility] Comment on above: Performed By: #### T ROPI #### [address] [address] Sl[employer] B[employer] Maker Machine: Ramsey Rodriguez MD FL MODIFIED BARIUM SWALLOW W VIDEOon 08-28-2023 FL MODIFIED BARIUM SWALLOW W VIDEO EXAMINATION: MODIFIED BARIUM SWALLOW WAS PERFORMED IN CONJUNCTION WITH [employer]ECH PATH[employer] TECHNIQUE: Under fluoroscopic evaluation cineradiography/videor adiography recordings were performed in conjunction with the speech-language pathologist ([employer] TECHNICIAN). Various liquid, solid and/or semi-solid barium preparations were used to assess swallowing function. FLUOROSCOPY DOSE AND TYPE: Radiation Exposure Index: DAP [id number], COMPARISON: None HISTORY: ORDERING SYSTEM PROVIDED HISTORY: dysphagia TECHNOLOGIST PROVIDED HISTORY: dysphagia FINDINGS: Thin liquid: Given by teaspoon no laryngeal penetration or aspiration. Given by straw there is trace laryngeal penetration. No aspiration. [place] thick liquid: Given by teaspoon no laryngeal [...] Christiano Cohen MD 08/28/23 Final result Normal [facility] Glucose,Whole Bloodon 2023 Glucose [Mass/Vol] 86 mg/dL Normal 75-110 [facility] Glucose [Mass/Vol] 87 mg/dL Normal 75-110 [facility] Glucose [Mass/Vol] 105 mg/dL Normal 75-110 [facility] Heparin Anti-Xaon 08-28-2023 Heparin Anti-Xa 0.22 IU/L Normal [facility] Comment on above: Performed By: #### H EPXA, CBC, PTT, PT #### [facility] [address] [place] [address] Slat Basket Maker Machine: Ramsey Rodriguez MD Magnesiumon 08-28-2023 Magnesium [Mass/Vol] 2.4 mg/dL Normal 1.6-2.4 [facility] Comment on above: Performed By: #### H EPXA, CBC, PTT, PT #### [facility] [address] [place] [address] Sl[employer] B[employer] Maker Machine: Ramsey Rodriguez MD Magnesium [Mass/Vol] 1.7 mg/dL Normal 1.6-2.4 [facility] Comment on above: Performed By: #### T ROPI #### [facility] [address] [place] [address] Sl[employer] B[employer] Maker Machine: Ramsey Rodriguez MD PTon 08-28-2023 INR Coag (PPP) [Relative time] 1.0 {INR} Normal [facility] Comment on above: Result Comment: Therapeutic Range: Moderate Anticoagulant Intensity: INR = 2.0-3.0 High Anticoagulant Intensity: INR = 2.5-3.5 Performed By: #### H EPXA, CBC, PTT, PT #### [facility] [address] [place] [address] Sl[employer] Maker Machine: Ramsey Rodriguez MD PT Coag (PPP) [Time] 13.5 s Normal 11.7-14.9 [facility] Comment on above: Performed By: #### H EPXA, CBC, PTT, PT #### [facility] [address] [place] [address] Sl[employer] Maker Machine: Ramsey Rodriguez MD Phosphorus, Inorg.on Phosphorus, Inorg. 2.2 mg/dL Low 2.5-4.5 [facility] Comment on above: Performed By: #### H EPXA, CBC, PTT, PT #### [facility] [address] [place] [address] Sl[employer] Maker Machine: Ramsey Rodriguez MD Phosphorus, Inorg. 2.4 mg/dL Low 2.5-4.5 [facility] Comment on above: Performed By: #### T ROPI #### [facility] [address] [place] [address] Sl[employer] Maker Machine: Ramsey Rodriguez MD Troponinon 08-28-2023 Troponin, High Sens 142 ng/L Critically high 0-22 [facility] Comment on above: Result Comment: High Sensitivity Troponin values cannot be compared with other Troponin methodologies. Previous Alert Value Reported Performed By: #### H EPXA, CBC, PTT, PT #### [facility] [address] [place], [place] [id number] Sl[employer] Basket Maker Machine: Ramsey Rodriguez MD Troponin, High Sens 138 ng/L Critically high 0-22 [facility] Comment on above: Result Comment: High Sensitivity Troponin values cannot be compared with other Troponin methodologies. Performed By: #### B MP, TROPI #### [facility] [place], [place] [id number] Slat Basket Maker Machine: Ramsey Rodriguez MD XR CHEST PORTABLEon 08-28-19 [...] Rafat Dumont MD 08/28/23 Final result Normal [facility] Basic Metabolic Profon 08-26 Anion gap [Moles/Vol] 7 mmol/L Low 9-16 [facility] Comment on above: Performed By: #### H EPXA, CBC, PTT, PT #### [facility] [address] [place] [address] Slat B[employer] Maker Machine: Ramsey Rodriguez MD Calcium [Mass/Vol] 8.0 mg/dL Low 8.6-10.4 [facility] Comment on above: Performed By: #### H EPXA, CBC, PTT, PT #### [facility] [place], [place] [id number] Slat Basket Maker Machine: Ramsey Rodriguez MD Chloride [Moles/Vol] 107 mmol/L Normal 98-107 [facility] Comment on above: Performed By: #### H EPXA, CBC, PTT, PT #### [facility] [address] [place] [address] Slat Basket Maker Machine: Ramsey Rodriguez MD CO2 [Moles/Vol] 26 mmol/L Normal 20-31 [facility] Comment on above: Performed By: #### H EPXA, CBC, PTT, PT #### [facility] [address] [place] [address] Slat Basket Maker Machine: Ramsey Rodriguez MD Creatinine [Mass/Vol] 0.6 mg/dL Low 0.70-1.20 [facility] Comment on above: Performed By: #### H EPXA, CBC, PTT, PT #### [facility] [address] [place] [address] Sl[employer] B[employer] Maker Machine: Ramsey Rodriguez MD GFR/1.73 sq M.predicted among non-blacks MDRD (S/P/Bld) [Vol rate/Area] mL/min/{1.73_m2} Normal >60 [facility] Comment on above: Result Comment: These results [...] #### H EPXA, CBC, PTT, PT #### [facility] [address] [place] [address] Slat Basket Maker Machine: Ramsey Rodriguez MD Glucose [Mass/Vol] 104 mg/dL High 74-99 [facility] Comment on above: Performed By: #### H EPXA, CBC, PTT, PT #### [facility] [address] [place] [address] Slat Basket Maker Machine: Ramsey Rodriguez MD Potassium [Moles/Vol] 3.6 mmol/L Low 3.7-5.3 [facility] Comment on above: Performed By: #### H EPXA, CBC, PTT, PT #### [facility] [address] [place] [address] Slat Basket Maker Machine: Ramsey Rodriguez MD Sodium [Moles/Vol] 140 mmol/L Normal 136-145 [facility] Comment on above: Performed By: #### H EPXA, CBC, PTT, PT #### [facility] [address] [place] [address] Slat Basket Maker Machine: Ramsey Rodriguez MD Urea nitrogen [Mass/Vol] 14 mg/dL Normal 8-23 [facility] Comment on above: Performed By: #### H EPXA, CBC, PTT, PT #### [facility] [address] [place] [address] Slat Basket Maker Machine: Ramsey Rodriguez MD CBC with Diffon 08-27-2023 Abs. Basophil <0.03 Normal 0.00-0.20 [facility] Comment on above: Performed By: #### H EPXA, CBC, PTT, PT #### [facility] [address] [place] [address] Slat Basket Maker Machine: Ramsey Rodriguez MD Abs.Imm.Granulocyte <0.03 Normal 0.00-0.30 [facility] Comment on above: Performed By: #### H EPXA, CBC, PTT, PT #### [facility] [address] [place] [address] Slat Basket Maker Machine: Ramsey Rodriguez MD Abs.Neutrophil (Seg) 3.93 k/uL Normal 1.50-8.10 [facility] Comment on above: Performed By: #### H EPXA, CBC, PTT, PT #### [facility] [address] [place] [address] Slat Basket Maker Machine: Ramsey Rodriguez MD Basophils/100 WBC (Bld) 0 % Normal 0-2 [facility] Comment on above: Performed By: #### H EPXA, CBC, PTT, PT #### [facility] [address] [place] [address] Slat Basket Maker Machine: Ramsey Rodriguez MD Eosinophils (Bld) [#/Vol] 0.25 10*3/uL Normal 0.00-0.44 [facility] Comment on above: Performed By: #### H EPXA, CBC, PTT, PT #### [facility] [address] [place] [address] Slat Basket Maker Machine: Ramsey Rodriguez MD Eosinophils/100 WBC (Bld) 5 % High 1-4 [facility] Comment on above: Performed By: #### H EPXA, CBC, PTT, PT #### [facility] [address] [place] [address] Slat Basket Maker Machine: Ramsey Rodriguez MD Erythrocyte distribution width (RBC) [Ratio] 15.8 % High 11.8-14.4 [facility] Comment on above: Performed By: #### H EPXA, CBC, PTT, PT #### [facility] [address] [place] [address] Sl[employer] Basket Maker Machine: Ramsey Rodriguez MD Hematocrit (Bld) [Volume fraction] 33.2 % Low 40.7-50.3 [facility] Comment on above: Performed By: #### H EPXA, CBC, PTT, PT #### [facility] [address] [place] [address] Slat Basket Maker Machine: Ramsey Rodriguez MD Hemoglobin (Bld) [Mass/Vol] 10.3 g/dL Low 13.0-17.0 [facility] Comment on above: Performed By: #### H EPXA, CBC, PTT, PT #### [facility] [address] [place] [address] Slat Basket Maker Machine: Ramsey Rodriguez MD Immature granulocytes/100 WBC (Bld) 0 % Normal 0 [facility] Comment on above: Performed By: #### H EPXA, CBC, PTT, PT #### [facility] [address] [place] [address] Slat Basket Maker Machine: Ramsey Rodriguez MD Lymphocytes (Bld) [#/Vol] 1.01 10*3/uL Low 1.10-3.70 [facility] Comment on above: Performed By: #### H EPXA, CBC, PTT, PT #### [address] [address] Slat Basket Maker Machine: Ramsey Rodriguez MD Lymphocytes/100 WBC (Bld) 18 % Low 24-43 [facility] Comment on above: Performed By: #### H EPXA, CBC, PTT, PT #### [address] [address] Slat Basket Maker Machine: Ramsey Rodriguez MD MCH (RBC) [Entitic mass] 30.6 pg Normal 25.2-33.5 [facility] Comment on above: Performed By: #### H EPXA, CBC, PTT, PT #### [facility] [address] [place] [address] Slat Basket Maker Machine: Ramsey Rodriguez MD MCHC (RBC) [Mass/Vol] 31.0 g/dL Normal 28.4-34.8 [facility] Comment on above: Performed By: #### H EPXA, CBC, PTT, PT #### [facility] [address] [place] [address] Slat Basket Maker Machine: Ramsey Rodriguez MD MCV (RBC) [Entitic vol] 98.5 fL Normal 82.6-102.9 [facility] Comment on above: Performed By: #### H EPXA, CBC, PTT, PT #### [facility] [address] [place] [address] Slat Basket Maker Machine: Ramsey Rodriguez MD Monocytes (Bld) [#/Vol] 0.33 10*3/uL Normal 0.10-1.20 [facility] Comment on above: Performed By: #### H EPXA, CBC, PTT, PT #### [address] [address] Sl[employer] Basket Maker Machine: Ramsey Rodriguez MD Monocytes/100 WBC (Bld) 6 % Normal 3-12 [facility] Comment on above: Performed By: #### H EPXA, CBC, PTT, PT #### [address] [address] Slat Basket Maker Machine: Ramsey Rodriguez MD Neutrophil (Seg) 71 % High 36-65 [facility] Comment on above: Performed By: #### H EPXA, CBC, PTT, PT #### [address] [address] Sl[employer] Basket Maker Machine: Ramsey Rodriguez MD NRBC Automated 0.0 per 100 WBC Normal 0.0 [facility] Comment on above: Performed By: #### H EPXA, CBC, PTT, PT #### [facility] [address] [place] [address] Slat Basket Maker Machine: Ramsey Rodriguez MD Platelet mean volume (Bld) [Entitic vol] 10.2 fL Normal 8.1-13.5 [facility] Comment on above: Performed By: #### H EPXA, CBC, PTT, PT #### [facility] [address] [place] [address] Sl[employer] Basket Maker Machine: Ramsey Rodriguez MD Platelets (Bld) [#/Vol] 136 10*3/uL Low 138-453 [facility] Comment on above: Performed By: #### H EPXA, CBC, PTT, PT #### [facility] [address] [place] [address] Sl[employer] Basket Maker Machine: Ramsey Rodriguez MD RBC (Bld) [#/Vol] 3.37 10*6/uL Low 4.21-5.77 [facility] Comment on above: Performed By: #### H EPXA, CBC, PTT, PT #### [facility] [address] [place] [address] Sl[employer] B[employer] Maker Machine: Ramsey Rodriguez MD RBC morphology finding Nom (Bld) ANISOCYTOSIS PRESENT Normal [facility] Comment on above: Performed By: #### H EPXA, CBC, PTT, PT #### [facility] [address] [place] [address] [phone] Sl[employer] Basket Maker Machine: Ramsey Rodriguez MD WBC (Bld) [#/Vol] 5.6 10*3/uL Normal 3.5-11.3 [facility] Comment on above: Performed By: #### H EPXA, CBC, PTT, PT #### [facility] [address] [place] [address] [phone] Sl[employer] Basket Maker Machine: Ramsey Rodriguez MD Glucose,Whole Bloodon 2023 Glucose [Mass/Vol] 103 mg/dL Normal 75-110 [facility] Glucose [Mass/Vol] 99 mg/dL Normal 75-110 [facility] Glucose [Mass/Vol] 95 mg/dL Normal 75-110 [facility] Magnesiumon 08-27-2023 Magnesium [Mass/Vol] 2.0 mg/dL Normal 1.6-2.4 [facility] Comment on above: Performed By: #### H EPXA, CBC, PTT, PT #### [facility] [address] [place] [address] [phone] Slat Basket Maker Machine: Ramsey Rodriguez MD Phosphorus, Inorg.on 024 Phosphorus, Inorg. 2.4 mg/dL Low 2.5-4.5 [facility] Comment on above: Performed By: #### H EPXA, CBC, PTT, PT #### [facility] [address] [place] [address] Slat B[employer] Maker Machine: Ramsey Rodriguez MD Urinalysis, Routineon 2023 Bilirubin, SemiQt,Ur Negative Normal [facility] Comment on above: Performed By: #### B MP, CDP, HEPXA #### [facility] [address] [place] [address] [employer] Machine: Ramsey Rodriguez MD Blood, Urine Negative Normal NEG [facility] Comment on above: Performed By: #### B MP, CDP, HEPXA #### [facility] [address] [place] [address] [employer]: Ramsey Rodriguez MD Clarity (U) Clear Normal CLEAR [facility] Comment on above: Performed By: #### B MP, CDP, HEPXA #### [facility] [address] [place] [address] [employer] Machine: Ramsey Rodriguez MD Color (U) Yellow Normal YEL [facility] Comment on above: Performed By: #### B MP, CDP, HEPXA #### [facility] [address] [place] [address] [employer]: Ramsey Rodriguez MD Comment Microscopic exam not performed based on chemical results unless requested in Normal [facility] Comment on above: Result Comment: orig inal order. Performed By: #### B MP, CDP, HEPXA #### [facility] [address] [place] [address]12 [employer]: Ramsey Rodriguez MD Glucose Ql (U) Negative Normal NEG [facility] Comment on above: Performed By: #### B MP, CDP, HEPXA #### [facility] [address] [place] [address] [employer]: Ramsey Rodriguez MD Ketones Ql (U) Negative Normal NEG [facility] Comment on above: Performed By: #### B MP, CDP, HEPXA #### [facility] [address] [place] [address] [employer]: Ramsey Rodriguez MD Leukocyte esterase Test strip Ql (U) Negative Normal NEG [facility] Comment on above: Performed By: #### B MP, CDP, HEPXA #### [address] [address] [employer]: Ramsey Rodriguez MD Nitrite,Ur Negative Normal NEG [facility] Comment on above: Performed By: #### B MP, CDP, HEPXA #### [address] [address] [employer]: Ramsey Rodriguez MD PH,Ur 5.5 Normal 5.0-8.0 [facility] Comment on above: Performed By: #### B MP, CDP, HEPXA #### [address] [address] [employer]: Ramsey Rodriguez MD Protein Ql (U) Negative Normal NEG [facility] Comment on above: Performed By: #### B MP, CDP, HEPXA #### [address] [address] [employer] Machine: Ramsey Rodriguez MD Spec. [place],Ur 1.008 Normal 1.005-1.030 [facility] Comment on above: Performed By: #### B MP, CDP, HEPXA #### [facility] [address] [place] [address] [employer] Machine: Ramsey Rodriguez MD Urobilinogen,Ur Normal Normal 0.0-1.0 [facility] Comment on above: Performed By: #### B MP, CDP, HEPXA #### [facility] [address] [place] [address] [employer]: Ramsey Rodriguez MD XR CHEST PORTABLEon 08-27-19 24 XR CHEST PORTABLE EXAMINATION: ONE XRAY [...] Alex Martinez MD 08/27/23 Final result Normal [facility] Arterial Bld Gas,POCon 08-25 Eliazar Test Positive Normal [facility] FIO2 60.0 Normal [facility] HCO3 (Bld) [Moles/Vol] 26.6 mmol/L Normal 21.0-28.0 [facility] O2 Device BIPAP Normal [facility] Oxygen saturation in Blood 99.1 % High 94.0-98.0 [facility] pCO2, Arterial 40.5 mm Hg Normal 35.0-48.0 [facility] pH, Arterial 7.426 Normal 7.350-7.450 [facility] pO2, Arterial 135.5 mm Hg High 83.0-108.0 [facility] Positive Base Excess (calc) 2.1 mmol/L Normal 0.0-3.0 [facility] Site Drawn Right Radial Artery Normal [facility] Basic Metabolic Profon 08-25 Anion gap [Moles/Vol] 5 mmol/L Low 9-16 [facility] Comment on above: Performed By: #### B KAITLYNN LEON #### [facility] [address] [place] [address] [id number] [employer] Machine: Ramsey Rodriguez MD Calcium [Mass/Vol] 8.2 mg/dL Low 8.6-10.4 [facility] Comment on above: Performed By: #### B MP, TROPI #### [facility] [address] [place] [address] [employer] Machine: Ramsey Rodriguez MD Chloride [Moles/Vol] 107 mmol/L Normal 98-107 [facility] Comment on above: Performed By: #### B EDWARD TROPI #### [facility] [place] [address] [employer] Machine: Ramsey Rodriguez MD CO2 [Moles/Vol] 26 mmol/L Normal 20-31 [facility] Comment on above: Performed By: #### B EDWARD TROPI #### [facility] [address] [place] [address]406 [employer] Machine: Ramsey Rodriguez MD Creatinine [Mass/Vol] 0.6 mg/dL Low 0.70-1.20 [facility] Comment on above: Performed By: #### B EDWARD TROPI #### [facility] [address] [place] [address]47 [employer]: Ramsey Rodriguez MD GFR/1.73 sq M.predicted among non-blacks MDRD (S/P/Bld) [Vol rate/Area] mL/min/{1.73_m2} Normal >60 [facility] Comment on above: Result Comment: These results [...] renal tubular secretion. Performed By: #### B EDWARD TROPI #### [facility] [address] [place] [address] [employer]: Ramsey Rodriguez MD Glucose [Mass/Vol] 92 mg/dL Normal 74-99 [facility] Comment on above: Performed By: #### B EDWARD TROPI #### [facility] [address] [place] [address] [employer]: Ramsey Rodriguez MD Potassium [Moles/Vol] 4.2 mmol/L Normal 3.7-5.3 [facility] Comment on above: Performed By: #### B EDWARD, TROPI #### [facility] [place] [address] [employer] Machine: Ramsey Rodriguez MD Sodium [Moles/Vol] 138 mmol/L Normal 136-145 [facility] Comment on above: Performed By: #### B EDWARD, TROPI #### [address] [address] [employer]: Ramsey Rodriguez MD Urea nitrogen [Mass/Vol] 18 mg/dL Normal 8-23 [facility] Comment on above: Performed By: #### B EDWARD TROPI #### [facility] [address] [place] [address] 72848 [employer]: Ramsey Rodriguez MD CBC with Diffon 08-26-2023 Abs. Basophil <0.03 Normal 0.00-0.20 [facility] Comment on above: Performed By: #### B EDWARD, TROPI #### [facility] [address] [place] [address] 265[address] [employer]: Ramsey Rodriguez MD Abs.Imm.Granulocyte <0.03 Normal 0.00-0.30 [facility] Comment on above: Performed By: #### B EDWARD, TROPI #### [facility] [address] [place] [address] 5[address] [employer]: Ramsey Rodriguez MD Abs.Neutrophil (Seg) 4.44 k/uL Normal 1.50-8.10 [facility] Comment on above: Performed By: #### B EDWARD, TROPI #### [facility] [address] [place] [address] 69[address] [employer] Machine: Ramsey Rodriguez MD Basophils/100 WBC (Bld) 0 % Normal 0-2 [facility] Comment on above: Performed By: #### B EDWARD TROPI #### [facility] [address] [place] [address]26 [employer]: Ramsey Rodriguez MD Eosinophils (Bld) [#/Vol] 0.17 10*3/uL Normal 0.00-0.44 [facility] Comment on above: Performed By: #### B EDWARD, TROPI #### [facility] [address] [place] [address] 89406 [employer]: Ramsey Rodriguez MD Eosinophils/100 WBC (Bld) 3 % Normal 1-4 [facility] Comment on above: Performed By: #### B EDWARD, TROPI #### [facility] [address] [place] [address] 9[address]10 [employer]: Ramsey Rodriguez MD Erythrocyte distribution width (RBC) [Ratio] 15.7 % High 11.8-14.4 [facility] Comment on above: Performed By: #### B EDWARD TROPI #### [facility] [address] [place] [address]314 [employer] Machine: Ramsey Rodriguez MD Hematocrit (Bld) [Volume fraction] 34.0 % Low 40.7-50.3 [facility] Comment on above: Performed By: #### B EDWARD, TROPI #### [facility] [address] [place] [address]18 [employer] Machine: Ramsey Rodriguez MD Hemoglobin (Bld) [Mass/Vol] 10.8 g/dL Low 13.0-17.0 [facility] Comment on above: Performed By: #### B EDWARD, TROPI #### [facility] [address] [place] [address] [employer] Machine: Ramsey Rodriguez MD Immature granulocytes/100 WBC (Bld) 0 % Normal 0 [facility] Comment on above: Performed By: #### B EDWARD, TROPI #### [address] [address] [employer] Machine: Ramsey Rodriguez MD Lymphocytes (Bld) [#/Vol] 1.18 10*3/uL Normal 1.10-3.70 [facility] Comment on above: Performed By: #### B MP, TROPI #### [place] [address] [employer] Machine: Ramsey Rodriguez MD Lymphocytes/100 WBC (Bld) 19 % Low 24-43 [facility] Comment on above: Performed By: #### B EDWARD, TROPI #### [place] [address] [employer] Machine: Ramsey Rodriguez MD MCH (RBC) [Entitic mass] 30.7 pg Normal 25.2-33.5 [facility] Comment on above: Performed By: #### B EDWARD, TROPI #### [place] [address] [employer] Machine: Ramsey Rodriguez MD MCHC (RBC) [Mass/Vol] 31.8 g/dL Normal 28.4-34.8 [facility] Comment on above: Performed By: #### B EDWARD, TROPI #### [place] [address] [employer] Machine: Ramsey Rodriguez MD MCV (RBC) [Entitic vol] 96.6 fL Normal 82.6-102.9 [facility] Comment on above: Performed By: #### B EDWARD, TROPI #### [place] [address] [employer] Machine: Ramsey Rodriguez MD Monocytes (Bld) [#/Vol] 0.41 10*3/uL Normal 0.10-1.20 [facility] Comment on above: Performed By: #### B MP, TROPI #### [facility] [address] [place] [address] 332[address] [employer] Machine: Ramsey Rodriguez MD Monocytes/100 WBC (Bld) 7 % Normal 3-12 [facility] Comment on above: Performed By: #### B MP, TROPI #### [address] [address] [employer] Machine: Ramsey Rodriguez MD Neutrophil (Seg) 71 % High 36-65 [facility] Comment on above: Performed By: #### B MP, TROPI #### [address] [address] [employer] Machine: Ramsey Rodriguez MD NRBC Automated 0.0 per 100 WBC Normal 0.0 [facility] Comment on above: Performed By: #### B MP, TROPI #### [address] [address] [employer] Machine: Ramsey Rodriguez MD Platelet mean volume (Bld) [Entitic vol] 9.9 fL Normal 8.1-13.5 [facility] Comment on above: Performed By: #### B MP, TROPI #### [address] [address] [employer] Machine: Ramsey Rodriguez MD Platelets (Bld) [#/Vol] 143 10*3/uL Normal 138-453 [facility] Comment on above: Performed By: #### B MP, TROPI #### [facility] [address] [place] [address] [employer] Machine: Ramsey Rodriguez MD RBC (Bld) [#/Vol] 3.52 10*6/uL Low 4.21-5.77 [facility] Comment on above: Performed By: #### B MP, TROPI #### [facility] [address] [place] [address] [employer] Machine: Ramsey Rodriguez MD RBC morphology finding Nom (Bld) ANISOCYTOSIS PRESENT Normal [facility] Comment on above: Performed By: #### B EDWARD TROPI #### [address] [address] [employer] Machine: Ramsey Rodriguez MD WBC (Bld) [#/Vol] 6.2 10*3/uL Normal 3.5-11.3 [facility] Comment on above: Performed By: #### B EDWARD TROPI #### [address] [address] [employer]: Ramsey Rodriguez MD Gl Hemostasis TEG w/Lysison 08-26-2023 Fibrinogen, Func TEG 5.4 mm Low 15.0-32.0 [facility] Comment on above: Performed By: #### H EPXA, CBC, PTT, PT #### [address] [address] [employer] Machine: Ramsey Rodriguez MD LY30 (Lysis) TEG 0.0 % Normal 0.0-2.6 [facility] Comment on above: Performed By: #### H EPXA, CBC, PTT, PT #### [address] [address] [employer] Machine: Ramsey Rodriguez MD MA Rapid TEG <40.0 Low 52.0-70 [facility] Comment on above: Performed By: #### H EPXA, CBC, PTT, PT #### [address] [address] [employer] Machine: Ramsey Rodriguez MD R(Reaction Time) TEG >17.0 High 4.6-9.1 [facility] Comment on above: Performed By: #### H EPXA, CBC, PTT, PT #### [address] [address] [employer] Machine: Ramsey Rodriguez MD Glucose,Whole Bloodon 2023 Glucose [Mass/Vol] 99 mg/dL Normal 75-110 [facility] Glucose [Mass/Vol] 86 mg/dL Normal 75-110 [facility] Glucose [Mass/Vol] 101 mg/dL Normal 75-110 [facility] Glucose [Mass/Vol] 86 mg/dL Normal 75-110 [facility] Magnesiumon 08-26-2023 Magnesium [Mass/Vol] 1.7 mg/dL Normal 1.6-2.4 [facility] Comment on above: Performed By: #### T ROPI #### [facility] [address] [place], [place] [phone] [employer] Machine: Ramsey Rodriguez MD PTon 08-26-2023 INR Coag (PPP) [Relative time] 1.1 {INR} Normal [facility] Comment on above: Result Comment: Therapeutic Range: Moderate Anticoagulant Intensity: INR = 2.0-3.0 High Anticoagulant Intensity: INR = 2.5-3.5 Performed By: #### B EDWARD TROPI #### [facility] [address] [place] [address] [employer] Machine: Ramsey Rodriguez MD PT Coag (PPP) [Time] 13.7 s Normal 11.7-14.9 [facility] Comment on above: Performed By: #### B EDWARD TROPI #### [facility] [address] [place] [address] [employer]: Ramsey Rodriguez MD XR CHEST PORTABLEon 08-26-19 [...] Jordy Michel MD 08/26/23 Final result Normal [facility] Basic Metab w/rfx MGon 08-24 Anion gap [Moles/Vol] 7 mmol/L Low 9-16 [facility] Comment on above: Performed By: #### T ROPI #### [address] [address] [employer] Machine: Ramsey Rodriguez MD Calcium [Mass/Vol] 7.8 mg/dL Low 8.6-10.4 [facility] Comment on above: Performed By: #### T ROPI #### [address] [address] [employer] Machine: Ramsey Rodriguez MD Chloride [Moles/Vol] 109 mmol/L High 98-107 [facility] Comment on above: Performed By: #### T ROPI #### [address] [address] [employer] Machine: Ramsey Rodriguez MD CO2 [Moles/Vol] 21 mmol/L Normal 20-31 [facility] Comment on above: Performed By: #### T ROPI #### [address] [address] [employer] Machine: Ramsey Rodriguez MD Creatinine [Mass/Vol] 0.5 mg/dL Low 0.70-1.20 [facility] Comment on above: Performed By: #### T ROPI #### [address] [address] [employer] Machine: Ramsey Rodriguez MD GFR/1.73 sq M.predicted among non-blacks MDRD (S/P/Bld) [Vol rate/Area] mL/min/{1.73_m2} Normal >60 [facility] Comment on above: Result Comment: These results [...] secretion. Performed By: #### T ROPI #### [facility] [address] [place] [address] [employer] Machine: Ramsey Rodriguez MD Glucose [Mass/Vol] 79 mg/dL Normal 74-99 [facility] Comment on above: Performed By: #### T ROPI #### [address] [address] [employer] Machine: Ramsey Rodriguez MD Potassium [Moles/Vol] 4.5 mmol/L Normal 3.7-5.3 [facility] Comment on above: Performed By: #### T ROPI #### [address] [address] [employer] Machine: Ramsey Rodriguez MD Sodium [Moles/Vol] 137 mmol/L Normal 136-145 [facility] Comment on above: Performed By: #### T ROPI #### [address] [address] [employer] Machine: Ramsey Rodriguez MD Urea nitrogen [Mass/Vol] 13 mg/dL Normal 8-23 [facility] Comment on above: Performed By: #### T ROPI #### [facility] [address] [place] [address] [employer] Machine: Ramsey Rodriguez MD CBC with Diffon 08-24-2023 Abs. Basophil <0.03 Normal 0.00-0.20 [facility] Comment on above: Performed By: #### T ROPI #### [address] [id number] [employer] Machine: Ramsey Rodriguez MD Abs.Imm.Granulocyte <0.03 Normal 0.00-0.30 [facility] Comment on above: Performed By: #### T ROPI #### [address] [address] [employer] Machine: Ramsey Rodriguez MD Abs.Neutrophil (Seg) 2.56 k/uL Normal 1.50-8.10 [facility] Comment on above: Performed By: #### T ROPI #### [address] [address] [employer] Machine: Ramsey Rodriguez MD Basophils/100 WBC (Bld) 1 % Normal 0-2 [facility] Comment on above: Performed By: #### T ROPI #### [address] [address] [employer]: Ramsey Rodriguez MD Eosinophils (Bld) [#/Vol] 0.18 10*3/uL Normal 0.00-0.44 [facility] Comment on above: Performed By: #### T ROPI #### [address] [address] [employer] Machine: Ramsey Rodriguez MD Eosinophils/100 WBC (Bld) 4 % Normal 1-4 [facility] Comment on above: Performed By: #### T ROPI #### [place] [address] [employer]: Ramsey Rodriguez MD Erythrocyte distribution width (RBC) [Ratio] 15.8 % High 11.8-14.4 [facility] Comment on above: Performed By: #### T ROPI #### [address] [address] [employer]: Ramsey Rodriguez MD Hematocrit (Bld) [Volume fraction] 33.3 % Low 40.7-50.3 [facility] Comment on above: Performed By: #### T ROPI #### [address] [address] [employer]: Ramsey Rodriguez MD Hemoglobin (Bld) [Mass/Vol] 10.4 g/dL Low 13.0-17.0 [facility] Comment on above: Performed By: #### T ROPI #### [address] [address] [employer] Machine: Ramsey Rodriguez MD Immature granulocytes/100 WBC (Bld) 0 % Normal 0 [facility] Comment on above: Performed By: #### T ROPI #### [address] [address] [employer] Machine: Ramsey Rodriguez MD Lymphocytes (Bld) [#/Vol] 1.22 10*3/uL Normal 1.10-3.70 [facility] Comment on above: Performed By: #### T ROPI #### [address] [address] [employer] Machine: Ramsey Rodriguez MD Lymphocytes/100 WBC (Bld) 28 % Normal 24-43 [facility] Comment on above: Performed By: #### T ROPI #### [address] [address] [employer] Machine: Ramsey Rodriguez MD MCH (RBC) [Entitic mass] 31.0 pg Normal 25.2-33.5 [facility] Comment on above: Performed By: #### T ROPI #### [address] [address] [employer] Machine: Ramsey Rodriguez MD MCHC (RBC) [Mass/Vol] 31.2 g/dL Normal 28.4-34.8 [facility] Comment on above: Performed By: #### T ROPI #### [address] [address] [employer] Machine: Ramsey Rodriguez MD MCV (RBC) [Entitic vol] 99.4 fL Normal 82.6-102.9 [facility] Comment on above: Performed By: #### T ROPI #### [address] [address] [employer] Machine: Ramsey Rodriguez MD Monocytes (Bld) [#/Vol] 0.32 10*3/uL Normal 0.10-1.20 [facility] Comment on above: Performed By: #### T ROPI #### [place] [address] [employer] Machine: Ramsey Rodriguez MD Monocytes/100 WBC (Bld) 7 % Normal 3-12 [facility] Comment on above: Performed By: #### T ROPI #### [address] [address] [employer]: Ramsey Rodriguez MD Neutrophil (Seg) 60 % Normal 36-65 [facility] Comment on above: Performed By: #### T ROPI #### [address] [address] [employer] Machine: Ramsey Rodriguez MD NRBC Automated 0.0 per 100 WBC Normal 0.0 [facility] Comment on above: Performed By: #### T ROPI #### [place] [address] [employer] Machine: Ramsey Rodriguez MD Platelet mean volume (Bld) [Entitic vol] 10.0 fL Normal 8.1-13.5 [facility] Comment on above: Performed By: #### T ROPI #### [address] [address] [employer]: Ramsey Rodriguez MD Platelets (Bld) [#/Vol] 143 10*3/uL Normal 138-453 [facility] Comment on above: Performed By: #### T ROPI #### [facility] [address] [place] [address] [employer] Machine: Ramsey Rodriguez MD RBC (Bld) [#/Vol] 3.35 10*6/uL Low 4.21-5.77 [facility] Comment on above: Performed By: #### T ROPI #### [address] [address] [employer] Machine: Ramsey Rodriguez MD RBC morphology finding Nom (Bld) ANISOCYTOSIS PRESENT Normal [facility] Comment on above: Performed By: #### T ROPI #### [address] [address] [employer] Machine: Ramsey Rodriguez MD WBC (Bld) [#/Vol] 4.3 10*3/uL Normal 3.5-11.3 [facility] Comment on above: Performed By: #### T ROPI #### [address] [address] [employer] Machine: aRmsey Rodriguez MD Glucose,Whole Bloodon 2023 Glucose [Mass/Vol] 88 mg/dL Normal 75-110 [facility] Glucose [Mass/Vol] 102 mg/dL Normal 75-110 [facility] Glucose [Mass/Vol] 104 mg/dL Normal 75-110 [facility] Glucose [Mass/Vol] 80 mg/dL Normal 75-110 [facility] XR ABDOMEN (KUB) (SINGLE AP VIEW)on 08-25-2023 XR ABDOMEN (KUB) (SINGLE AP VIEW) EXAMINATION: [...] Gerardo Stafford MD 08/25/23 Final result Normal [facility] Basic Metab w/rfx MGon 08-23 Anion gap [Moles/Vol] 6 mmol/L Low 9-16 [facility] Comment on above: Performed By: #### B MP, CDP, HEPXA #### [facility] [address] [place] [address] [employer]: Ramsey Rodriguez MD Chloride [Moles/Vol] 108 mmol/L High 98-107 [facility] Comment on above: Performed By: #### B MP, CDP, HEPXA #### [facility] [address] [place] [address] [employer] Machine: Ramsey Rodriguez MD Potassium [Moles/Vol] 4.2 mmol/L Normal 3.7-5.3 [facility] Comment on above: Performed By: #### B MP, CDP, HEPXA #### [facility] [address] [place] [address] [employer]: Ramsey Rodriguez MD Sodium [Moles/Vol] 139 mmol/L Normal 136-145 [facility] Comment on above: Performed By: #### B MP, CDP, HEPXA #### [facility] [address] [place] [address] [employer]: Ramsey Rodriguez MD Calcium [Mass/Vol] 8.1 mg/dL Low 8.6-10.4 [facility] Comment on above: Performed By: #### B MP, CDP, HEPXA #### [facility] [address] [place] [address] [employer] Machine: Ramsey Rodriguez MD CO2 [Moles/Vol] 25 mmol/L Normal 20-31 [facility] Comment on above: Performed By: #### B MP, CDP, HEPXA #### [facility] [place] [address] [employer] Machine: Ramsey Rodriguez MD Creatinine [Mass/Vol] 0.5 mg/dL Low 0.70-1.20 [facility] Comment on above: Performed By: #### B EDWARD CDP, HEPXA #### [facility] [address] [place] [address] [employer]: Ramsey Rodriguez MD GFR/1.73 sq M.predicted among non-blacks MDRD (S/P/Bld) [Vol rate/Area] mL/min/{1.73_m2} Normal >60 [facility] Comment on above: Result Comment: These results [...] renal tubular secretion. Performed By: #### B EDWARD CDP, HEPXA #### [facility] [address] [place] [address] [employer]: Ramsey Rodriguez MD Glucose [Mass/Vol] 105 mg/dL High 74-99 [facility] Comment on above: Performed By: #### B MP, CDP, HEPXA #### [facility] [address] [place] [address] [employer]: Ramsey Rodriguez MD Urea nitrogen [Mass/Vol] 12 mg/dL Normal 8-23 [facility] Comment on above: Performed By: #### B MP, CDP, HEPXA #### [facility] [address] [place] [address] 38816 [employer] Machine: Ramsey Rodriguez MD CBC with Diffon 08-24-2023 Abs. Basophil <0.03 Normal 0.00-0.20 [facility] Comment on above: Performed By: #### B MP, CDP, HEPXA #### [address] [address] [employer] Machine: Ramsey Rodriguez MD Abs.Imm.Granulocyte <0.03 Normal 0.00-0.30 [facility] Comment on above: Performed By: #### B MP, CDP, HEPXA #### [place] [address] [employer] Machine: Ramsey Rodriguez MD Abs.Neutrophil (Seg) 3.28 k/uL Normal 1.50-8.10 [facility] Comment on above: Performed By: #### B MP, CDP, HEPXA #### [facility] [address] [place] [address] [employer]: Ramsey Rodriguez MD Basophils/100 WBC (Bld) 0 % Normal 0-2 [facility] Comment on above: Performed By: #### B MP, CDP, HEPXA #### [facility] [address] [place] [address] [employer]: Ramsey Rodriguez MD Eosinophils (Bld) [#/Vol] 0.29 10*3/uL Normal 0.00-0.44 [facility] Comment on above: Performed By: #### B MP, CDP, HEPXA #### [facility] [address] [place] [address] [employer]: Ramsey Rodriguez MD Eosinophils/100 WBC (Bld) 6 % High 1-4 [facility] Comment on above: Performed By: #### B MP, CDP, HEPXA #### [facility] [address] [place] [address] [employer]: Ramsey Rodriguez MD Erythrocyte distribution width (RBC) [Ratio] 15.7 % High 11.8-14.4 [facility] Comment on above: Performed By: #### B MP, CDP, HEPXA #### [address] [address] [employer]: Ramsey Rodriguez MD Hematocrit (Bld) [Volume fraction] 33.4 % Low 40.7-50.3 [facility] Comment on above: Performed By: #### B MP, CDP, HEPXA #### [address] [address] [employer]: Ramsey Rodriguez MD Hemoglobin (Bld) [Mass/Vol] 10.5 g/dL Low 13.0-17.0 [facility] Comment on above: Performed By: #### B MP, CDP, HEPXA #### [facility] [address] [place] [address] [employer]: Ramsey Rodriguez MD Immature granulocytes/100 WBC (Bld) 0 % Normal 0 [facility] Comment on above: Performed By: #### B MP, CDP, HEPXA #### [facility] [address] [place] [address] [employer]: Ramsey Rodriguez MD Lymphocytes (Bld) [#/Vol] 0.89 10*3/uL Low 1.10-3.70 [facility] Comment on above: Performed By: #### B MP, CDP, HEPXA #### [facility] [address] [place] [address] [employer]: Ramsey Rodriguez MD Lymphocytes/100 WBC (Bld) 19 % Low 24-43 [facility] Comment on above: Performed By: #### B MP, CDP, HEPXA #### [facility] [address] [place] [address] [employer] Machine: Ramsey Rodriguez MD MCH (RBC) [Entitic mass] 30.9 pg Normal 25.2-33.5 [facility] Comment on above: Performed By: #### B MP, CDP, HEPXA #### [facility] [place] [address] [employer] Machine: Ramsey Rodriguez MD MCHC (RBC) [Mass/Vol] 31.4 g/dL Normal 28.4-34.8 [facility] Comment on above: Performed By: #### B MP, CDP, HEPXA #### [address] [address] [employer]: Ramsey Rodriguez MD MCV (RBC) [Entitic vol] 98.2 fL Normal 82.6-102.9 [facility] Comment on above: Performed By: #### B MP, CDP, HEPXA #### [address] [address] [employer] Machine: Ramsey Rodriguez MD Monocytes (Bld) [#/Vol] 0.26 10*3/uL Normal 0.10-1.20 [facility] Comment on above: Performed By: #### B MP, CDP, HEPXA #### [address] [address] [employer]: Ramsey Rodriguez MD Monocytes/100 WBC (Bld) 6 % Normal 3-12 [facility] Comment on above: Performed By: #### B MP, CDP, HEPXA #### [facility] [address] [place] [address] [employer]: Ramsey Rodriguez MD Neutrophil (Seg) 69 % High 36-65 [facility] Comment on above: Performed By: #### B MP, CDP, HEPXA #### [facility] [address] [place] [address] [employer] Machine: Ramsey Rodriguez MD NRBC Automated 0.0 per 100 WBC Normal 0.0 [facility] Comment on above: Performed By: #### B MP, CDP, HEPXA #### [address] [address] [employer]: Ramsey Rodriguez MD Platelet mean volume (Bld) [Entitic vol] 10.0 fL Normal 8.1-13.5 [facility] Comment on above: Performed By: #### B MP, CDP, HEPXA #### [address] [address] [employer]: Ramsey Rodriguez MD Platelets (Bld) [#/Vol] 141 10*3/uL Normal 138-453 [facility] Comment on above: Performed By: #### B MP, CDP, HEPXA #### [address] [address] [employer]: Ramsey Rodriguez MD RBC (Bld) [#/Vol] 3.40 10*6/uL Low 4.21-5.77 [facility] Comment on above: Performed By: #### B MP, CDP, HEPXA #### [address] [address] [employer] Machine: Ramsey Rodriguez MD RBC morphology finding Nom (Bld) ANISOCYTOSIS PRESENT Normal [facility] Comment on above: Performed By: #### B MP, CDP, HEPXA #### [facility] [address] [place] [address] [employer] Machine: Ramsey Rodriguez MD WBC (Bld) [#/Vol] 4.8 10*3/uL Normal 3.5-11.3 [facility] Comment on above: Performed By: #### B MP, CDP, HEPXA #### [facility] [address] [place] [address] [employer]: Ramsey Rodriguez MD Glucose,Whole Bloodon 2023 Glucose [Mass/Vol] 92 mg/dL Normal 75-110 [facility] Glucose [Mass/Vol] 81 mg/dL Normal 75-110 [facility] Glucose [Mass/Vol] 99 mg/dL Normal 75-110 [facility] Glucose [Mass/Vol] 94 mg/dL Normal 75-110 [facility] XR CHEST PORTABLEon 08-24-19 XR CHEST PORTABLE [...] Alex Martinez MD 08/24/23 Final result Normal [facility] Basic Metab w/rfx MGon 08-22 Anion gap [Moles/Vol] 6 mmol/L Low 9-16 [facility] Comment on above: Performed By: #### B EDWARD, TROPI #### [facility] [address] [place] [address] [employer] Machine: Ramsey Rodriguez MD Calcium [Mass/Vol] 8.1 mg/dL Low 8.6-10.4 [facility] Comment on above: Performed By: #### B EDWARD, TROPI #### [facility] [address] [place], [place] [id number] [employer]: Ramsey Rodriguez MD Chloride [Moles/Vol] 107 mmol/L Normal 98-107 [facility] Comment on above: Performed By: #### B EDWARD, TROPI #### [facility] [address] [place], [place] [id number] [employer] Machine: Ramsey Rodriguez MD CO2 [Moles/Vol] 25 mmol/L Normal 20-31 [facility] Comment on above: Performed By: #### B EDWARD, TROPI #### [facility] [address] [place] [address] [employer] Machine: Ramsey Rodriguez MD Creatinine [Mass/Vol] 0.5 mg/dL Low 0.70-1.20 [facility] Comment on above: Performed By: #### B EDWARD, TROPI #### [facility] [address] [place] [address] [employer] Machine: Ramsey Rodriguez MD GFR/1.73 sq M.predicted among non-blacks MDRD (S/P/Bld) [Vol rate/Area] mL/min/{1.73_m2} Normal >60 [facility] Comment on above: Result Comment: These results [...] renal tubular secretion. Performed By: #### B EDWARD, TROPI #### [facility] [address] [place] [address] [employer] Machine: Ramsey Rodriguez MD Glucose [Mass/Vol] 111 mg/dL High 74-99 [facility] Comment on above: Performed By: #### B EDWARD, TROPI #### [facility] [address] [place] [address] [employer] Machine: Ramsey Rodriguez MD Potassium [Moles/Vol] 4.1 mmol/L Normal 3.7-5.3 [facility] Comment on above: Performed By: #### B EDWARD, TROPI #### [facility] [address] [place] [address] [employer] Machine: Ramsey Rodriguez MD Sodium [Moles/Vol] 138 mmol/L Normal 136-145 [facility] Comment on above: Performed By: #### B EDWARD TROPI #### [address] [address] [employer]: Ramsey Rodriguez MD Urea nitrogen [Mass/Vol] 17 mg/dL Normal 8-23 [facility] Comment on above: Performed By: #### B EDWARD TROPI #### [place] [address] [employer] Machine: Ramsey Rodriguez MD CBC with Diffon 08-23-2023 Abs. Basophil <0.03 Normal 0.00-0.20 [facility] Comment on above: Performed By: #### Nicol LEON TROPI #### [place] [address] [employer] Machine: Ramsey Rodriguez MD Abs.Imm.Granulocyte <0.03 Normal 0.00-0.30 [facility] Comment on above: Performed By: #### Nicol LEON TROPI #### [place] [address] [employer] Machine: Ramsey Rodriguez MD Abs.Neutrophil (Seg) 4.44 k/uL Normal 1.50-8.10 [facility] Comment on above: Performed By: #### B EDWARD TROPI #### [place] [address] [employer] Machine: Ramsey Rodriguez MD Basophils/100 WBC (Bld) 0 % Normal 0-2 [facility] Comment on above: Performed By: #### Nicol LEON TROPI #### [place] [address] [employer] Machine: Ramsey Rodriguez MD Eosinophils (Bld) [#/Vol] 0.26 10*3/uL Normal 0.00-0.44 [facility] Comment on above: Performed By: #### B MP, TROPI #### [facility] [address] [place] [address] [employer] Machine: Ramsey Rodriguez MD Eosinophils/100 WBC (Bld) 4 % Normal 1-4 [facility] Comment on above: Performed By: #### B MP, TROPI #### [facility] [address] [place] [address] [employer] Machine: Ramsey Rodriguez MD Erythrocyte distribution width (RBC) [Ratio] 15.8 % High 11.8-14.4 [facility] Comment on above: Performed By: #### B MP, TROPI #### [facility] [address] [place] [address] [employer] Machine: Ramsey Rodriguez MD Hematocrit (Bld) [Volume fraction] 35.5 % Low 40.7-50.3 [facility] Comment on above: Performed By: #### B MP, TROPI #### [facility] [address] [place] [address] [employer] Machine: Ramsey Rodriguez MD Hemoglobin (Bld) [Mass/Vol] 10.8 g/dL Low 13.0-17.0 [facility] Comment on above: Performed By: #### B EDWARD, TROPI #### [facility] [address] [place] [address] [employer] Machine: Ramsey Rodriguez MD Immature granulocytes/100 WBC (Bld) 0 % Normal 0 [facility] Comment on above: Performed By: #### B MP, TROPI #### [facility] [address] [place] [address] [employer] Machine: Ramsey Rodriguez MD Lymphocytes (Bld) [#/Vol] 0.92 10*3/uL Low 1.10-3.70 [facility] Comment on above: Performed By: #### B MP, TROPI #### [place] [address] [place] [address] [employer] Machine: Ramsey Rodriguez MD Lymphocytes/100 WBC (Bld) 15 % Low 24-43 [facility] Comment on above: Performed By: #### B MP, TROPI #### [facility] [address] [place] [address] [employer] Machine: Ramsey Rodriguez MD MCH (RBC) [Entitic mass] 30.6 pg Normal 25.2-33.5 [facility] Comment on above: Performed By: #### B MP, TROPI #### [address] [address] [employer] Machine: Ramsey Rodriguez MD MCHC (RBC) [Mass/Vol] 30.4 g/dL Normal 28.4-34.8 [facility] Comment on above: Performed By: #### B MP, TROPI #### [address] [address] [employer] Machine: Ramsey Rodriguez MD MCV (RBC) [Entitic vol] 100.6 fL Normal 82.6-102.9 [facility] Comment on above: Performed By: #### B MP, TROPI #### [address] [address] [employer] Machine: Ramsey Rodriguez MD Monocytes (Bld) [#/Vol] 0.31 10*3/uL Normal 0.10-1.20 [facility] Comment on above: Performed By: #### B MP, TROPI #### [address] [address] [employer] Machine: Ramsey Rodriguez MD Monocytes/100 WBC (Bld) 5 % Normal 3-12 [facility] Comment on above: Performed By: #### B MP, TROPI #### [facility] [address] [place] [address] [employer] Machine: Ramsey Rodriguez MD Neutrophil (Seg) 76 % High 36-65 [facility] Comment on above: Performed By: #### B EDWADR, TROPI #### [address] [address] [employer] Machine: Ramsey Rodriguez MD NRBC Automated 0.0 per 100 WBC Normal 0.0 [facility] Comment on above: Performed By: #### B EDWARD, TROPI #### [facility] [address] [place] [address] [employer] Machine: Ramsey Rodriguez MD Platelet mean volume (Bld) [Entitic vol] 9.9 fL Normal 8.1-13.5 [facility] Comment on above: Performed By: #### B EDWARD, TROPI #### [address] [address] [employer] Machine: Ramsey Rodriguez MD Platelets (Bld) [#/Vol] 129 10*3/uL Low 138-453 [facility] Comment on above: Performed By: #### B EDWARD, TROPI #### [address] [address] [employer] Machine: Ramsey Rodriguez MD RBC (Bld) [#/Vol] 3.53 10*6/uL Low 4.21-5.77 [facility] Comment on above: Performed By: #### B EDWARD, TROPI #### [address] [address] [employer] Machine: Ramsey Rodriguez MD RBC morphology finding Nom (Bld) ANISOCYTOSIS PRESENT Normal [facility] Comment on above: Performed By: #### B EDWARD, TROPI #### [facility] [address] [place] [address] [employer] Machine: Ramsey Rodriguez MD WBC (Bld) [#/Vol] 6.0 10*3/uL Normal 3.5-11.3 [facility] Comment on above: Performed By: #### B EDWARD TROPI #### [facility] [address] [place] [address] [employer] Machine: Ramsey Rodriguez MD Glucose,Whole Bloodon 2023 Glucose [Mass/Vol] 110 mg/dL Normal 75-110 [facility] Glucose [Mass/Vol] 97 mg/dL Normal 75-110 [facility] Glucose [Mass/Vol] 94 mg/dL Normal 75-110 [facility] Glucose [Mass/Vol] 90 mg/dL Normal 75-110 [facility] Magnesiumon 08-23-2023 Magnesium [Mass/Vol] 2.1 mg/dL Normal 1.6-2.4 [facility] Comment on above: Performed By: #### B EDWARD TROPI #### [facility] [address] [place] [address] [phone] [employer] Machine: Ramsey Rodriguze MD Phosphorus, Inorg.on 024 Phosphorus, Inorg. 1.7 mg/dL Low 2.5-4.5 [facility] Comment on above: Performed By: #### B EDWARD TROPI #### [facility] [address] [place] [address] [phone] [employer] Machine: Ramsey Rodriguez MD Basic Metab w/rfx MGon 08-21 Anion gap [Moles/Vol] 8 mmol/L Low 9-16 [facility] Comment on above: Performed By: #### H EPXA, CBC, PTT, PT #### [facility] [address] [place] [address] [employer] Machine: Ramsey Rodriguez MD Calcium [Mass/Vol] 8.3 mg/dL Low 8.6-10.4 [facility] Comment on above: Performed By: #### H EPXA, CBC, PTT, PT #### [facility] [address] [place] [address] [employer] Machine: Ramsey Rodriguez MD Chloride [Moles/Vol] 105 mmol/L Normal 98-107 [facility] Comment on above: Performed By: #### H EPXA, CBC, PTT, PT #### [facility] [address] [place] [address] [employer] Maker Machine: Ramsey Rodriguez MD CO2 [Moles/Vol] 25 mmol/L Normal 20-31 [facility] Comment on above: Performed By: #### H EPXA, CBC, PTT, PT #### [facility] [address] [place] [address] [employer] Machine: Ramsey Rodriguez MD Creatinine [Mass/Vol] 0.6 mg/dL Low 0.70-1.20 [facility] Comment on above: Performed By: #### H EPXA, CBC, PTT, PT #### [facility] [address] [place] [address] [employer] Machine: Ramsey Rodriguez MD GFR/1.73 sq M.predicted among non-blacks MDRD (S/P/Bld) [Vol rate/Area] mL/min/{1.73_m2} Normal >60 [facility] Comment on above: Result Comment: These results [...] #### H EPXA, CBC, PTT, PT #### [facility] [place] [address] [employer] Machine: Ramsey Rodriguez MD Glucose [Mass/Vol] 105 mg/dL High 74-99 [facility] Comment on above: Performed By: #### H EPXA, CBC, PTT, PT #### [facility] [address] [place] [address] [employer] Machine: Ramsey Rodriguez MD Potassium [Moles/Vol] 4.2 mmol/L Normal 3.7-5.3 [facility] Comment on above: Result Comment: SPEC IMEN SLIGHTLY HEMOLYZED, RESULTS MAY BE ADVERSELY AFFECTED. Performed By: #### H EPXA, CBC, PTT, PT #### [facility] [address] [place] [address] [employer] Machine: Ramsey Rodriguez MD Sodium [Moles/Vol] 138 mmol/L Normal 136-145 [facility] Comment on above: Performed By: #### H EPXA, CBC, PTT, PT #### [address] [address] [employer] Machine: Ramsey Rodriguez MD Urea nitrogen [Mass/Vol] 25 mg/dL High 8-23 [facility] Comment on above: Performed By: #### H EPXA, CBC, PTT, PT #### [facility] [address] [place] [address] [employer] Machine: Ramsey Rodriguez MD CBC with Diffon 08-22-2023 Abs. Basophil 0.03 k/uL Normal 0.00-0.20 [facility] Comment on above: Performed By: #### H EPXA, CBC, PTT, PT #### [facility] [address] [place] [address] [employer] Machine: Ramsey Rodriguez MD Abs.Imm.Granulocyte 0.03 k/uL Normal 0.00-0.30 [facility] Comment on above: Performed By: #### H EPXA, CBC, PTT, PT #### [facility] [address] [place] [address] [employer] Machine: Ramsey Rodriguez MD Abs.Neutrophil (Seg) 7.03 k/uL Normal 1.50-8.10 [facility] Comment on above: Performed By: #### H EPXA, CBC, PTT, PT #### [facility] [address] [place] [address] [employer] Machine: Ramsey Rodriguez MD Basophils/100 WBC (Bld) 0 % Normal 0-2 [facility] Comment on above: Performed By: #### H EPXA, CBC, PTT, PT #### [facility] [address] [place] [address] [employer] Machine: Ramsey Rodriguez MD Eosinophils (Bld) [#/Vol] 0.10 10*3/uL Normal 0.00-0.44 [facility] Comment on above: Performed By: #### H EPXA, CBC, PTT, PT #### [facility] [address] [place] [address] [employer] Machine: Ramsey Rodriguez MD Eosinophils/100 WBC (Bld) 1 % Normal 1-4 [facility] Comment on above: Performed By: #### H EPXA, CBC, PTT, PT #### [facility] [address] [place] [address] [employer] Machine: Ramsey Rodriguez MD Erythrocyte distribution width (RBC) [Ratio] 16.0 % High 11.8-14.4 [facility] Comment on above: Performed By: #### H EPXA, CBC, PTT, PT #### [facility] [address] [place] [address] [employer] Machine: Ramsey Rodriguez MD Hematocrit (Bld) [Volume fraction] 38.1 % Low 40.7-50.3 [facility] Comment on above: Performed By: #### H EPXA, CBC, PTT, PT #### [facility] [address] [place] [address] [employer] Machine: Ramsey Rodriguez MD Hemoglobin (Bld) [Mass/Vol] 11.9 g/dL Low 13.0-17.0 [facility] Comment on above: Performed By: #### H EPXA, CBC, PTT, PT #### [facility] [address] [place] [address] [employer] Machine: Ramsey Rodriguez MD Immature granulocytes/100 WBC (Bld) 0 % Normal 0 [facility] Comment on above: Performed By: #### H EPXA, CBC, PTT, PT #### [facility] [address] [place] [address] [employer] Machine: Ramsey Rodriguez MD Lymphocytes (Bld) [#/Vol] 0.78 10*3/uL Low 1.10-3.70 [facility] Comment on above: Performed By: #### H EPXA, CBC, PTT, PT #### [address] [address] [employer] Machine: Ramsey Rodriguez MD Lymphocytes/100 WBC (Bld) 9 % Low 24-43 [facility] Comment on above: Performed By: #### H EPXA, CBC, PTT, PT #### [facility] [address] [place] [address] [employer] Machine: Ramsey Rodriguez MD MCH (RBC) [Entitic mass] 30.8 pg Normal 25.2-33.5 [facility] Comment on above: Performed By: #### H EPXA, CBC, PTT, PT #### [facility] [address] [place] [address] [employer] Machine: Ramsey Rodriguez MD MCHC (RBC) [Mass/Vol] 31.2 g/dL Normal 28.4-34.8 [facility] Comment on above: Performed By: #### H EPXA, CBC, PTT, PT #### [facility] [address] [place] [address] [employer] Machine: Ramsey Rodriguez MD MCV (RBC) [Entitic vol] 98.7 fL Normal 82.6-102.9 [facility] Comment on above: Performed By: #### H EPXA, CBC, PTT, PT #### [address] [address] [employer]: Ramsey Rodriguez MD Monocytes (Bld) [#/Vol] 0.32 10*3/uL Normal 0.10-1.20 [facility] Comment on above: Performed By: #### H EPXA, CBC, PTT, PT #### [address] [address] [employer]: Ramsey Rodriguez MD Monocytes/100 WBC (Bld) 4 % Normal 3-12 [facility] Comment on above: Performed By: #### H EPXA, CBC, PTT, PT #### [address] [address] [employer]: Ramsey Rodriguez MD Neutrophil (Seg) 86 % High 36-65 [facility] Comment on above: Performed By: #### H EPXA, CBC, PTT, PT #### [address] [address] [employer] Machine: Ramsey Rodriguez MD NRBC Automated 0.0 per 100 WBC Normal 0.0 [facility] Comment on above: Performed By: #### H EPXA, CBC, PTT, PT #### [address] [address] [employer]: Ramsey Rodriguez MD Platelet mean volume (Bld) [Entitic vol] 10.1 fL Normal 8.1-13.5 [facility] Comment on above: Performed By: #### H EPXA, CBC, PTT, PT #### [address] [address] [employer]: Ramsey Rodriguez MD Platelets (Bld) [#/Vol] 140 10*3/uL Normal 138-453 [facility] Comment on above: Performed By: #### H EPXA, CBC, PTT, PT #### [address] [address] [employer]: Ramsey Rodriguez MD RBC (Bld) [#/Vol] 3.86 10*6/uL Low 4.21-5.77 [facility] Comment on above: Performed By: #### H EPXA, CBC, PTT, PT #### [facility] [facility] [address] [place] [phone] [employer] Machine: Ramsey Rodriguez MD RBC morphology finding Nom (Bld) ANISOCYTOSIS PRESENT Normal [facility] Comment on above: Performed By: #### H EPXA, CBC, PTT, PT #### [facility] [address] [place] [address] [phone] [employer]: Ramsey Rodriguez MD WBC (Bld) [#/Vol] 8.3 10*3/uL Normal 3.5-11.3 [facility] Comment on above: Performed By: #### H EPXA, CBC, PTT, PT #### [address] [address] [employer]: Ramsey Rodriguez MD Glucose,Whole Bloodon 2023 Glucose [Mass/Vol] 127 mg/dL High 75-110 [facility] Glucose [Mass/Vol] 125 mg/dL High 75-110 [facility] Glucose [Mass/Vol] 112 mg/dL High 75-110 [facility] Glucose [Mass/Vol] 84 mg/dL Normal 75-110 [facility] Glucose [Mass/Vol] 86 mg/dL Normal 75-110 [facility] Glucose [Mass/Vol] 96 mg/dL Normal 75-110 [facility] Magnesiumon 08-22-2023 Magnesium [Mass/Vol] 1.8 mg/dL Normal 1.6-2.4 [facility] Comment on above: Performed By: #### H EPXA, CBC, PTT, PT #### [facility] [address] [place] [address] [employer]: Ramsey Rodriguez MD Phosphorus, Inorg.on 024 Phosphorus, Inorg. 2.2 mg/dL Low 2.5-4.5 [facility] Comment on above: Performed By: #### H EPXA, CBC, PTT, PT #### [facility] [address] [place] [address] 73697 [employer]: Ramsey Rodriguez MD Basic Metab w/rfx MGon 08-20 Anion gap [Moles/Vol] 10 mmol/L Normal 9-16 [facility] Comment on above: Performed By: #### H EPXA, CBC, PTT, PT #### [facility] [address] [place] [address] 06817 [employer]: Ramsey Rodriguez MD Calcium [Mass/Vol] 9.0 mg/dL Normal 8.6-10.4 [facility] Comment on above: Performed By: #### H EPXA, CBC, PTT, PT #### [facility] [address] [place] [address]2671 [employer]: Ramsey Rodriguez MD Chloride [Moles/Vol] 105 mmol/L Normal 98-107 [facility] Comment on above: Performed By: #### H EPXA, CBC, PTT, PT #### [facility] [address] [place] [address] 64784 [employer]: Ramsey Rodriguez MD CO2 [Moles/Vol] 27 mmol/L Normal 20-31 [facility] Comment on above: Performed By: #### H EPXA, CBC, PTT, PT #### [facility] [address] [place] [address] 20740 [employer]: Ramsey Rodriguez MD Creatinine [Mass/Vol] 0.7 mg/dL Normal 0.70-1.20 [facility] Comment on above: Performed By: #### H EPXA, CBC, PTT, PT #### [address] [address] [employer]: Ramsey Rodriguez MD GFR/1.73 sq M.predicted among non-blacks MDRD (S/P/Bld) [Vol rate/Area] 89 mL/min/{1.73_m2} Normal >60 [facility] Comment on above: Result Comment: These results [...] #### H EPXA, CBC, PTT, PT #### [facility] [address] [place] [address] [phone] [employer]: Ramsey Rodriguez MD Glucose [Mass/Vol] 146 mg/dL High 74-99 [facility] Comment on above: Performed By: #### H EPXA, CBC, PTT, PT #### [facility] [address] [place] [address] 76[address] [employer]: Ramsey Rodriguez MD Potassium [Moles/Vol] 4.4 mmol/L Normal 3.7-5.3 [facility] Comment on above: Performed By: #### H EPXA, CBC, PTT, PT #### [facility] [address] [place] [address] [employer]: Ramsey Rodriguez MD Sodium [Moles/Vol] 142 mmol/L Normal 136-145 [facility] Comment on above: Performed By: #### H EPXA, CBC, PTT, PT #### [facility] [address] [place] [address] [employer]: Ramsey Rodriguez MD Urea nitrogen [Mass/Vol] 25 mg/dL High 8-23 [facility] Comment on above: Performed By: #### H EPXA, CBC, PTT, PT #### [facility] [address] [place] [address] 21565 [employer]: Ramsey Rodriguez MD CBC with Diffon 08-21-2023 Abs. Basophil 0.00 k/uL Normal 0.0-0.2 [facility] Comment on above: Performed By: #### H EPXA, CBC, PTT, PT #### [facility] [address] [place] [address] [employer]: Ramsey Rodriguez MD Abs.Imm.Granulocyte 0.00 k/uL Normal 0.00-0.30 [facility] Comment on above: Performed By: #### H EPXA, CBC, PTT, PT #### [facility] [address] [place] [address] [employer]: Ramsey Rodriguez MD Abs.Neutrophil (Seg) 10.86 k/uL High 1.8-7.7 [facility] Comment on above: Performed By: #### H EPXA, CBC, PTT, PT #### [facility] [address] [place] [address] [employer]: Ramsey Rodriguez MD Basophils/100 WBC (Bld) 0 % Normal 0-2 [facility] Comment on above: Performed By: #### H EPXA, CBC, PTT, PT #### [facility] [address] [place] [address] [employer]: Ramsey Rodriguez MD Eosinophils (Bld) [#/Vol] 0.00 10*3/uL Normal 0.0-0.4 [facility] Comment on above: Performed By: #### H EPXA, CBC, PTT, PT #### [facility] [address] [place] [address] [employer]: Ramsey Rodriguez MD Eosinophils/100 WBC (Bld) 0 % Low 1-4 [facility] Comment on above: Performed By: #### H EPXA, CBC, PTT, PT #### [facility] [address] [place] [address] 07729 [employer]: Ramsey Rodriguez MD Immature granulocytes/100 WBC (Bld) 0 % Normal 0 [facility] Comment on above: Performed By: #### H EPXA, CBC, PTT, PT #### [facility] [address] [place] [address] 64665 [employer]: Ramsey Rodriguez MD Lymphocytes (Bld) [#/Vol] 0.73 10*3/uL Low 1.0-4.8 [facility] Comment on above: Performed By: #### H EPXA, CBC, PTT, PT #### [address] [address] [employer]: Ramsey Rodriguez MD Lymphocytes/100 WBC (Bld) 6 % Low 24-44 [facility] Comment on above: Performed By: #### H EPXA, CBC, PTT, PT #### [facility] [address] [place] [address] 228[address] [employer]: Ramsey Rodriguez MD Monocytes (Bld) [#/Vol] 0.61 10*3/uL Normal 0.1-0.8 [facility] Comment on above: Performed By: #### H EPXA, CBC, PTT, PT #### [facility] [address] [place] [address] 57325 [employer]: Ramsey Rodriguez MD Monocytes/100 WBC (Bld) 5 % Normal 1-7 [facility] Comment on above: Performed By: #### H EPXA, CBC, PTT, PT #### [facility] [address] [place] [address] 91833 [employer]: Ramsey Rodriguez MD Morphology Edmond (Bld) [Interp] ANISOCYTOSIS PRESENT Normal [facility] Comment on above: Performed By: #### H EPXA, CBC, PTT, PT #### [address] [address] [employer]: Ramsey Rodriguez MD Neutrophil (Seg) 89 % High 36-66 [facility] Comment on above: Performed By: #### H EPXA, CBC, PTT, PT #### [facility] [address] [place] [address] 19894 [employer]: Ramsey Rodriguez MD Erythrocyte distribution width (RBC) [Ratio] 15.7 % High 11.8-14.4 [facility] Comment on above: Performed By: #### H EPXA, CBC, PTT, PT #### [facility] [address] [place] [address]1491 [employer]: Ramsey Rodriguez MD Hematocrit (Bld) [Volume fraction] 40.8 % Normal 40.7-50.3 [facility] Comment on above: Performed By: #### H EPXA, CBC, PTT, PT #### [facility] [address] [place] [address] 13511 [employer]: Ramsey Rodriguez MD Hemoglobin (Bld) [Mass/Vol] 13.2 g/dL Normal 13.0-17.0 [facility] Comment on above: Performed By: #### H EPXA, CBC, PTT, PT #### [facility] [address] [place] [address] 78764 [employer]: Ramsey Rodriguez MD MCH (RBC) [Entitic mass] 30.3 pg Normal 25.2-33.5 [facility] Comment on above: Performed By: #### H EPXA, CBC, PTT, PT #### [facility] [address] [place] [address] 05047 [employer]: Ramsey Rodriguez MD MCHC (RBC) [Mass/Vol] 32.4 g/dL Normal 28.4-34.8 [facility] Comment on above: Performed By: #### H EPXA, CBC, PTT, PT #### [address] [address] [employer]: Ramsey Rodriguez MD MCV (RBC) [Entitic vol] 93.8 fL Normal 82.6-102.9 [facility] Comment on above: Performed By: #### H EPXA, CBC, PTT, PT #### [facility] [address] [place] [address] 04435 [employer]: Ramsey Rodriguez MD NRBC Automated 0.0 per 100 WBC Normal 0.0 [facility] Comment on above: Performed By: #### H EPXA, CBC, PTT, PT #### [address] [address] [employer]: Ramsey Rodriguez MD Platelet mean volume (Bld) [Entitic vol] 10.0 fL Normal 8.1-13.5 [facility] Comment on above: Performed By: #### H EPXA, CBC, PTT, PT #### [facility] [address] [place] [address] 01230 [employer]: Ramsey Rodriguez MD Platelets (Bld) [#/Vol] 197 10*3/uL Normal 138-453 [facility] Comment on above: Performed By: #### H EPXA, CBC, PTT, PT #### [facility] [address] [place] [address] 53703 [employer] Machine: Ramsey Rodriguez MD RBC (Bld) [#/Vol] 4.35 10*6/uL Normal 4.21-5.77 [facility] Comment on above: Performed By: #### H EPXA, CBC, PTT, PT #### [facility] [address] [place] [address] 33377 [employer] Machine: Ramsey Rodriguez MD WBC (Bld) [#/Vol] 12.2 10*3/uL High 3.5-11.3 [facility] Comment on above: Performed By: #### H EPXA, CBC, PTT, PT #### [facility] [address] [place] [address] [phone] [employer] Machine: Ramsey Rodriguez MD Glucose,Whole Bloodon 2023 Glucose [Mass/Vol] 124 mg/dL High 75-110 [facility] Glucose [Mass/Vol] 95 mg/dL Normal 75-110 [facility] Magnesiumon 08-21-2023 Magnesium [Mass/Vol] 2.0 mg/dL Normal 1.6-2.4 [facility] Comment on above: Performed By: #### H EPXA, CBC, PTT, PT #### [facility] [address] [place] [address] [phone] [employer]: Ramsey Rodriguez MD Phosphorus, Inorg.on 024 Phosphorus, Inorg. 3.9 mg/dL Normal 2.5-4.5 [facility] Comment on above: Performed By: #### H EPXA, CBC, PTT, PT #### [facility] [address] [place] [address] [phone] [employer]: Ramsey Rodriguez MD Type + Screenon 08-21-2023 Type + Screen Sample Expiration 08/24/2023,2359 Arm Band Number BE [id number] ABO/Rh(D) O NEGATIVE Antibody Screen NEGATIVE Normal [facility] Comment on above: Performed By: #### H EPXA, CBC, PTT, PT #### [facility] [address] [place] [address] [phone] [employer]: Ramsey Rodriguez MD XR CHEST PORTABLEon 08-21-19 24 XR CHEST PORTABLE EXAMINATION: ONE XRAY [...] Dave Burns MD 08/21/23 Final result Normal [facility] Basophils Auto (Bld) [#/Vol] on 08-20-2023 Basophils (Bld) [#/Vol] 0.1 10 3/uL 0.0-0.1 [facility] Basophils/100 WBC Auto (Bld) on 08-20-2023 Basophils/100 WBC (Bld) 0.3 % 0.2-2.0 [facility] Bilirubin Auto test strip (U ) [Mass/Vol]on 08-20-2023 Bilirubin (U) [Mass/Vol] Negative NEGATIVE [facility] CBC with Diffon 08-20-2023 Abs. Basophil 0.00 k/uL Normal 0.0-0.2 [facility] Comment on above: Performed By: #### H EPXA, CBC, PTT, PT #### [facility] [address] [place] [address] 23412 [employer]: Ramsey Rodriguez MD Abs.Imm.Granulocyte 0.00 k/uL Normal 0.00-0.30 [facility] Comment on above: Performed By: #### H EPXA, CBC, PTT, PT #### [facility] [address] [place] [address] 07762 [employer]: Ramsey Rodriguez MD Abs.Neutrophil (Seg) 12.60 k/uL High 1.8-7.7 [facility] Comment on above: Performed By: #### H EPXA, CBC, PTT, PT #### [facility] [address] [place] [address] 29042 [employer]: Ramsey Rodriguez MD Basophils/100 WBC (Bld) 0 % Normal 0-2 [facility] Comment on above: Performed By: #### H EPXA, CBC, PTT, PT #### [facility] [address] [place] [address] 33321 [employer]: Ramsey Rodriguez MD Eosinophils (Bld) [#/Vol] 0.00 10*3/uL Normal 0.0-0.4 [facility] Comment on above: Performed By: #### H EPXA, CBC, PTT, PT #### [address] [address] [employer]: Ramsey Rodriguez MD Eosinophils/100 WBC (Bld) 0 % Low 1-4 [facility] Comment on above: Performed By: #### H EPXA, CBC, PTT, PT #### [facility] [address] [place] [address] [employer]: Ramsey Rodriguez MD Immature granulocytes/100 WBC (Bld) 0 % Normal 0 [facility] Comment on above: Performed By: #### H EPXA, CBC, PTT, PT #### [facility] [address] [place] [address] [employer] Machine: Ramsey Rodriguez MD Lymphocytes (Bld) [#/Vol] 0.67 10*3/uL Low 1.0-4.8 [facility] Comment on above: Performed By: #### H EPXA, CBC, PTT, PT #### [facility] [address] [place] [address] [employer]: Ramsey Rodriguez MD Lymphocytes/100 WBC (Bld) 5 % Low 24-44 [facility] Comment on above: Performed By: #### H EPXA, CBC, PTT, PT #### [facility] [address] [place] [address] [employer]: Ramsey Rodriguez MD Monocytes (Bld) [#/Vol] 0.13 10*3/uL Normal 0.1-0.8 [facility] Comment on above: Performed By: #### H EPXA, CBC, PTT, PT #### [address] [address] [employer]: Ramsey Rodriguez MD Monocytes/100 WBC (Bld) 1 % Normal 1-7 [facility] Comment on above: Performed By: #### H EPXA, CBC, PTT, PT #### [address] [address] [employer]: Ramsey Rodriguez MD Morphology Edmond (Bld) [Interp] ANISOCYTOSIS PRESENT Normal [facility] Comment on above: Performed By: #### H EPXA, CBC, PTT, PT #### [address] [address] [employer] Machine: Ramsey Rodriguez MD Neutrophil (Seg) 94 % High 36-66 [facility] Comment on above: Performed By: #### H EPXA, CBC, PTT, PT #### [address] [address] [employer]: Ramsey Rodriguez MD Erythrocyte distribution width (RBC) [Ratio] 15.6 % High 11.8-14.4 [facility] Comment on above: Performed By: #### H EPXA, CBC, PTT, PT #### [facility] [address] [place] [address] 13460 [employer] Machine: Ramsey Rodriguez MD Hematocrit (Bld) [Volume fraction] 43.6 % Normal 40.7-50.3 [facility] Comment on above: Performed By: #### H EPXA, CBC, PTT, PT #### [facility] [address] [place] [address] 75465 [employer] Machine: Ramsey Rodriguez MD Hemoglobin (Bld) [Mass/Vol] 14.0 g/dL Normal 13.0-17.0 [facility] Comment on above: Performed By: #### H EPXA, CBC, PTT, PT #### [facility] [address] [place] [address] 61545 [employer] Machine: Ramsey Rodriguez MD MCH (RBC) [Entitic mass] 30.6 pg Normal 25.2-33.5 [facility] Comment on above: Performed By: #### H EPXA, CBC, PTT, PT #### [address] [address] [employer]: Ramsey Rodriguez MD MCHC (RBC) [Mass/Vol] 32.1 g/dL Normal 28.4-34.8 [facility] Comment on above: Performed By: #### H EPXA, CBC, PTT, PT #### [address] [address] [employer] Machine: Ramsey Rodriguez MD MCV (RBC) [Entitic vol] 95.2 fL Normal 82.6-102.9 [facility] Comment on above: Performed By: #### H EPXA, CBC, PTT, PT #### [address] [address] [employer]: Ramsey Rodriguez MD NRBC Automated 0.0 per 100 WBC Normal 0.0 [facility] Comment on above: Performed By: #### H EPXA, CBC, PTT, PT #### [address] [address] [employer]: Ramsey Rodriguez MD Platelet mean volume (Bld) [Entitic vol] 10.1 fL Normal 8.1-13.5 [facility] Comment on above: Performed By: #### H EPXA, CBC, PTT, PT #### [facility] [address] [place] [address] [employer]: Ramsey Rodriguez MD Platelets (Bld) [#/Vol] 200 10*3/uL Normal 138-453 [facility] Comment on above: Performed By: #### H EPXA, CBC, PTT, PT #### [address] [place] [address] [employer]: Ramsey Rodriguez MD RBC (Bld) [#/Vol] 4.58 10*6/uL Normal 4.21-5.77 [facility] Comment on above: Performed By: #### H EPXA, CBC, PTT, PT #### [address] [address] [employer]: Ramsey Rodriguez MD WBC (Bld) [#/Vol] 13.4 10*3/uL High 3.5-11.3 [facility] Comment on above: Performed By: #### H EPXA, CBC, PTT, PT #### [address] [address] [employer]: Ramsey Rodriguez MD Comp Metabolic Profon 2023 Albumin [Mass/Vol] 3.5 g/dL Normal 3.5-5.2 [facility] Comment on above: Performed By: #### H EPXA, CBC, PTT, PT #### [address] [address] [employer]: Ramsey Rodriguez MD Albumin/Glob Ratio 1.0 Normal 1.0-2.5 [facility] Comment on above: Performed By: #### H EPXA, CBC, PTT, PT #### [facility] [address] [place] [address]30 [employer]: Ramsey Rodriguez MD Alkaline Phos 93 U/L Normal 40-129 [facility] Comment on above: Performed By: #### H EPXA, CBC, PTT, PT #### [facility] [address] [place] [address]88 [employer] Machine: Ramsey Rodriguez MD ALT [Catalytic activity/Vol] 58 U/L High 10-50 [facility] Comment on above: Performed By: #### H EPXA, CBC, PTT, PT #### [facility] [address] [place] [address] [employer]: Ramsey Rodriguez MD Anion gap [Moles/Vol] 12 mmol/L Normal 9-16 [facility] Comment on above: Performed By: #### H EPXA, CBC, PTT, PT #### [address] [address] [employer]: Ramsey Rodriguez MD AST [Catalytic activity/Vol] 75 U/L High 10-50 [facility] Comment on above: Result Comment: SPEC IMEN SLIGHTLY HEMOLYZED, RESULTS MAY BE ADVERSELY AFFECTED. Performed By: #### H EPXA, CBC, PTT, PT #### [facility] [address] [place] [address] 26477 [employer]: Ramsey Rodriguez MD Bilirubin [Mass/Vol] 1.1 mg/dL Normal 0.00-1.20 [facility] Comment on above: Performed By: #### H EPXA, CBC, PTT, PT #### [facility] [address] [place] [address]92 [employer]: Ramsey Rodriguez MD Calcium [Mass/Vol] 9.1 mg/dL Normal 8.6-10.4 [facility] Comment on above: Performed By: #### H EPXA, CBC, PTT, PT #### [facility] [address] [place] [address]180 [employer] Machine: Rmasey Rodriguez MD Chloride [Moles/Vol] 100 mmol/L Normal 98-107 [facility] Comment on above: Performed By: #### H EPXA, CBC, PTT, PT #### [facility] [address] [place] [address] [employer] Machine: Ramsey Rodriguez MD CO2 [Moles/Vol] 25 mmol/L Normal 20-31 [facility] Comment on above: Performed By: #### H EPXA, CBC, PTT, PT #### [facility] [address] [place] [address] 97604 [employer] Machine: Ramsey Rodriguez MD Creatinine [Mass/Vol] 0.8 mg/dL Normal 0.70-1.20 [facility] Comment on above: Performed By: #### H EPXA, CBC, PTT, PT #### [address] [address] [employer]: Ramsey Rodriguez MD GFR/1.73 sq M.predicted among non-blacks MDRD (S/P/Bld) [Vol rate/Area] 87 mL/min/{1.73_m2} Normal >60 [facility] Comment on above: Result Comment: These results [...] #### H EPXA, CBC, PTT, PT #### [facility] [address] [place] [address] 7[address]44 [employer]: Ramsey Rodriguez MD Glucose [Mass/Vol] 208 mg/dL High 74-99 [facility] Comment on above: Performed By: #### H EPXA, CBC, PTT, PT #### [facility] [address] [place] [address] [employer] Machine: Ramsey Rodriguez MD Potassium [Moles/Vol] 4.4 mmol/L Normal 3.7-5.3 [facility] Comment on above: Result Comment: SPEC IMEN SLIGHTLY HEMOLYZED, RESULTS MAY BE ADVERSELY AFFECTED. Performed By: #### H EPXA, CBC, PTT, PT #### [facility] [address] [place] [address] 58971 [employer]: Ramsey Rodriguez MD Protein [Mass/Vol] 7.9 g/dL Normal 6.6-8.7 [facility] Comment on above: Performed By: #### H EPXA, CBC, PTT, PT #### [facility] [address] [place] [address] [employer]: Ramsey Rodriguez MD Sodium [Moles/Vol] 137 mmol/L Normal 136-145 [facility] Comment on above: Performed By: #### H EPXA, CBC, PTT, PT #### [facility] [address] [place], [place] [phone] [employer] Machine: Ramsey Rodriguez MD Urea nitrogen [Mass/Vol] 26 mg/dL High 8-23 [facility] Comment on above: Performed By: #### H EPXA, CBC, PTT, PT #### [facility] [address], [place] [phone] [employer]: Ramsey Rodriguez MD Eosinophils/100 WBC Auto (Bl d)on 08-20-2023 Eosinophils/100 WBC (Bld) 0.1 % 0.9-7.0 [facility] Erythrocyte distribution wid th Auto (RBC) [Ratio]on 08-20-2023 Erythrocyte distribution width (RBC) [Ratio] 15.2 % 11.0-15.0 [facility] Estimated glomerular filtrat ion rate (GFR) non- Americanon 08-20-2023 GFR/1.73 sq M.predicted among non-blacks MDRD (S/P/Bld) [Vol rate/Area] mL/min/{1.73_m2} >=60 [facility] Globulin Calc (S) [Mass/Vol] on 08-20-2023 Globulin (S) [Mass/Vol] 5.3 g/dL [facility] Hematocrit Auto (Bld) [Volum e fraction]on 08-20-2023 Hematocrit (Bld) [Volume fraction] 40.8 % 42.0-54.0 [facility] Hemoglobin [Mass/volume] in Bloodon 08-20-2023 Hemoglobin (Bld) [Mass/Vol] 13.3 g/dL 14.0-18.0 [facility] Laboratory - Chemistry and C hemistry - challengeon 08-20-2023 Glucose (U) [Mass/Vol] Negative NEGATIVE [facility] Ketones Ql (U) Negative NEGATIVE [facility] pH (U) 5.0 [pH] 5.0-9.0 [facility] Specific gravity (U) [Rel density] 1.020 1.005-1.025 [facility] Urobilinogen Qn (U) 0.2 {Amy'U}/dL 0.2-1.0 [facility] Albumin [Mass/Vol] 3.2 g/dL 3.4-5.0 [facility] ALP [Catalytic activity/Vol] 104 U/L 46-116 [facility] ALT [Catalytic activity/Vol] 74 U/L 16-63 [facility] AST [Catalytic activity/Vol] 67 U/L 15-37 [facility] Bilirubin [Mass/Vol] 1.3 mg/dL 0.2-1.0 [facility] Calcium [Mass/Vol] 9.7 mg/dL 8.5-10.1 [facility] Chloride [Moles/Vol] 100 mmol/L 98-107 [facility] CO2 [Moles/Vol] 28.2 mmol/L 21.0-32.0 [facility] Creatinine [Mass/Vol] 1.05 mg/dL 0.70-1.30 [facility] GFR/1.73 sq M.predicted MDRD (S/P/Bld) [Vol rate/Area] mL/min/{1.73_m2} >=60 [facility] Glucose [Mass/Vol] 202 mg/dL 74-106 [facility] Lipase [Catalytic activity/Vol] 18.0 U/L 16.0-77.0 [facility] Natriuretic peptide B (Bld) [Mass/Vol] 470.0 pg/mL <=1800.0 [facility] Potassium [Moles/Vol] 3.6 mmol/L 3.5-5.1 [facility] Protein [Mass/Vol] 8.5 g/dL 6.4-8.2 [facility] Sodium [Moles/Vol] 137 mmol/L 136-145 [facility] Urea nitrogen [Mass/Vol] 30.0 mg/dL 7.0-18.0 [facility] Urea nitrogen/Creatinine [Mass ratio] 28.6 mg/mg [facility] Laboratory - Hematology and Cell countson 08-20-2023 Immature granulocytes/100 WBC (Bld) 0.4 % 0.0-0.5 [facility] - Specimen inform ationon 08-20-2023 Appearance (U) CLEAR CLEAR [facility] Color (U) YELLOW YELLOW [facility] Laboratory - Urinalysison Leukocyte esterase Test strip Ql (U) Negative NEGATIVE [facility] Nitrite Ql (U) Negative NEGATIVE [facility] Protein Ql (U) Negative NEG/TRACE [facility] Lactic Acidon 08-20-2023 Lactic Acid,Whole Bl 3.6 mmol/L High 0.7-2.1 [facility] Comment on above: Performed By: #### H EPXA, CBC, PTT, PT #### [facility] [place] [address] Slat Basket Maker Machine: Ramsey Rodriguez MD Leukocytes [#/volume] correc александр for nucleated erythrocytes in Blood by Automated counon 08-20-2023 WBC corrected for nucl RBC Auto (Bld) [#/Vol] 15.6 10 3/uL 4.0-11.0 [facility] Lymphocytes Auto (Bld) [#/Vo l]on 08-20-2023 Lymphocytes (Bld) [#/Vol] 1.5 10 3/uL 1.2-3.8 [facility] Lymphocytes/100 WBC Auto (Bl d)on 08-20-2023 Lymphocytes/100 WBC (Bld) 9.6 % 20.5-60.0 [facility] MCH Auto (RBC) [Entitic mass ]on 08-20-2023 MCH (RBC) [Entitic mass] 30.6 pg 25.9-34.0 [facility] MCHC Auto (RBC) [Mass/Vol]on 08-20-2023 MCHC (RBC) [Mass/Vol] 32.6 g/dL 29.9-35.2 [facility] MCV Auto (RBC) [Entitic vol] on 08-20-2023 MCV (RBC) [Entitic vol] 93.8 fL 80.0-94.0 [facility] Magnesiumon 08-20-2023 Magnesium [Mass/Vol] 2.0 mg/dL Normal 1.6-2.4 [facility] Comment on above: Performed By: #### H EPXA, CBC, PTT, PT #### [employer] [facility] [address], [place] [id number] [employer] Machine: Ramsey Rodriguez MD Monocytes Auto (Bld) [#/Vol] on 08-20-2023 Monocytes (Bld) [#/Vol] 0.5 10 3/uL 0.3-0.8 [facility] Monocytes/100 WBC Auto (Bld) on 08-20-2023 Monocytes/100 WBC (Bld) 3.2 % 1.7-12.0 [facility] Neutrophils Auto (Bld) [#/Vo l]on 08-20-2023 Neutrophils (Bld) [#/Vol] 13.4 10 3/uL 1.4-6.5 [facility] Neutrophils/100 WBC Auto (Bl d)on 08-20-2023 Neutrophils/100 WBC (Bld) 86.4 % 43.0-75.0 [facility] No Panel Informationon 08-19 Urine Microscopic Review NO [facility] Eosinophils # (Auto) 0.0 10 3/uL 0.0-0.7 [facility] Immature Granulocyte # (Auto) 0.06 10 3/uL 0.00-0.03 [facility] Platelet mean volume Auto (B ld) [Entitic vol]on 08-20-2023 Platelet mean volume (Bld) [Entitic vol] 9.8 fL 9.5-13.5 [facility] Platelets Auto (Bld) [#/Vol] on 08-20-2023 Platelets (Bld) [#/Vol] 220 10 3/uL 150-450 [facility] RBC Auto (Bld) [#/Vol]on RBC (Bld) [#/Vol] 4.35 10 6/uL 4.70-6.10 [facility] Serum or plasma albumin/glob ulin mass ratioon 08-20-2023 Albumin/Globulin [Mass ratio] 0.6 {ratio} [facility] Serum or plasma anion gap de terminationon 08-20-2023 Anion gap [Moles/Vol] 12.4 mmol/L [facility] Urine hemoglobin detection b y automated test stripon 08-20-2023 Hemoglobin Auto test strip Ql (U) Negative NEGATIVE [facility] XR CHEST PORTABLEon 08-20-19 XR CHEST PORTABLE [...] Amada Rosario MD 08/20/23 Final result Normal [facility] CBC AUTO DIFFon 08-15-2022 BASO # 0.0 103/ul Normal 0.0-0.1 [facility] Comment on above: Performed By: #### C BC #### [facility] [address] [place] [address] Dr. Emily Lauren Basophils/100 WBC (Bld) 0.3 % Normal 0.2-2.0 [facility] Comment on above: Performed By: #### C BC #### [facility] [address] [place] [address] Dr. Emily Lauren EO # 0.2 103/ul Normal 0.0-0.7 [facility] Comment on above: Performed By: #### C BC #### [facility] [address] [place] [address] Dr. Emily Lauren Eosinophils/100 WBC (Bld) 3.1 % Normal 0.9-7.0 [facility] Comment on above: Performed By: #### C BC #### [facility] [address] [place] [address] Dr. Emily Lauren Erythrocyte distribution width (RBC) [Ratio] 14.9 % Normal 11.0-15.0 [facility] Comment on above: Performed By: #### C BC #### [facility] [address] [place] [address] Dr. Emily Lauren Hematocrit (Bld) [Volume fraction] 39.9 % Critically low 42.0-54.0 [facility] Comment on above: Performed By: #### C BC #### [facility] [address] [place] [address] Dr. Emily Lauren Hemoglobin (Bld) [Mass/Vol] 12.9 g/dL Critically low 14.0-18.0 [facility] Comment on above: Performed By: #### C BC #### [facility] [address] [place] [address] Dr. Emily Lauren IG # 0.02 10e3/ul Normal 0.00-0.03 [facility] Comment on above: Performed By: #### C BC #### [facility] [address] [place] [address] Dr. Emily Lauren IG % 0.3 % Normal 0.0-0.5 [facility] Comment on above: Performed By: #### C BC #### [facility] [address] [place] [address] Dr. Emily Lauren LYMPH # 2.4 103/ul Normal 1.2-3.8 [facility] Comment on above: Performed By: #### C BC #### [facility] [address] [place] [address] Dr. Emily Lauren Lymphocytes/100 WBC (Bld) 30.7 % Normal 20.5-60.0 [facility] Comment on above: Performed By: #### C BC #### [facility] [address] [place] [address] Dr. Emily Lauren MANUAL DIFF REQ NO Normal [facility] Comment on above: Performed By: #### C BC #### [facility] [address] [place] [address] Dr. Emily Lauren MCH (RBC) [Entitic mass] 30.4 pg Normal 25.9-34.0 [facility] Comment on above: Performed By: #### C BC #### [facility] [address] [place] [address] Dr. Emily Lauren MCHC (RBC) [Mass/Vol] 32.3 g/dL Normal 29.9-35.2 [facility] Comment on above: Performed By: #### C BC #### [facility] [address] [place] [address] Dr. Emily Lauren MCV (RBC) [Entitic vol] 94.1 fL Critically high 80.0-94.0 [facility] Comment on above: Performed By: #### C BC #### [facility] [address] [place] [address] Dr. mEily Lauren MONO # 0.5 103/ul Normal 0.3-0.8 [facility] Comment on above: Performed By: #### C BC #### [facility] [address] [place] [address] Dr. Emily Lauren Monocytes/100 WBC (Bld) 5.9 % Normal 1.7-12.0 [facility] Comment on above: Performed By: #### C BC #### [facility] [address] [place] [address] Dr. Emily Lauren NEUT # 4.6 103/ul Normal 1.4-6.5 [facility] Comment on above: Performed By: #### C BC #### [facility] [address] [place] [address] Dr. Emily Lauren Neutrophils/100 WBC (Bld) 59.7 % Normal 43.0-75.0 [facility] Comment on above: Performed By: #### C BC #### [facility] [address] [place] [address] Dr. Emily Lauren Platelet mean volume (Bld) [Entitic vol] 9.7 fL Normal 9.5-13.5 [facility] Comment on above: Performed By: #### C BC #### [facility] [address] [place] [address] Dr. Emily Lauren PLT 176 103/ul Normal 150-450 [facility] Comment on above: Performed By: #### C BC #### [facility] [address] [place] [address] Dr. Emily Lauren RBC 4.24 106/ul Critically low 4.70-6.10 [facility] Comment on above: Performed By: #### C BC #### [facility] [address] [place] [address] Dr. Emily Lauren WBC 7.7 103/ul Normal 4.0-11.0 [facility] Comment on above: Performed By: #### C BC #### [facility] [address] [place] [address] Dr. Emily Lauren PROF 14(COMP METB)on 023 Albumin [Mass/Vol] 3.4 g/dL Normal 3.4-5.0 [facility] Comment on above: Performed By: #### C MP #### [facility] [address] [place] [address] Dr. Emily Lauren Albumin/Globulin [Mass ratio] 0.8 {ratio} Normal [facility] Comment on above: Performed By: #### C MP #### [facility] [address] [place] [address] Dr. Emily Lauren ALP [Catalytic activity/Vol] 81 U/L Normal 46-116 [facility] Comment on above: Performed By: #### C MP #### [facility] [address] [place] [address] Dr. Emily Lauren ALT [Catalytic activity/Vol] 44 U/L Normal 16-63 [facility] Comment on above: Performed By: #### C MP #### [facility] [address] [place] [address] Dr. Emily Lauren Anion gap [Moles/Vol] 11.3 mmol/L Normal [facility] Comment on above: Performed By: #### C MP #### [facility] [address] [address] [address] Emily Lauren AST [Catalytic activity/Vol] 41 U/L Critically high 15-37 [facility] Comment on above: Performed By: #### C MP #### [facility] [address] [address] [address] Emily Lauren Bilirubin [Mass/Vol] 1.4 mg/dL Critically high 0.2-1.0 [facility] Comment on above: Performed By: #### C MP #### [facility] [address] [address] [address] Emily Lauren Calcium [Mass/Vol] 9.2 mg/dL Normal 8.5-10.1 [facility] Comment on above: Performed By: #### C MP #### [facility] [address] [place] [address] Dr. Emily Lauren Chloride [Moles/Vol] 106 mmol/L Normal 98-107 [facility] Comment on above: Performed By: #### C MP #### [facility] [address] [address] [address] Emily Lauren CO2 [Moles/Vol] 29.8 mmol/L Normal 21.0-32.0 [facility] Comment on above: Performed By: #### C MP #### [facility] [address] [place] [address] Dr. Emily Lauren Creatinine [Mass/Vol] 0.83 mg/dL Normal 0.70-1.30 [facility] Comment on above: Performed By: #### C MP #### [facility] [address] [address] [address] Emily Lauren EGFR-AF TURKS AND CAICOS ISLANDER >60 Normal >=60 [facility] Comment on above: Performed By: #### C MP #### [facility] [address] [address] [address] Emily Lauren EGFR-NON AF TURKS AND CAICOS ISLANDER >60 Normal >=60 [facility] Comment on above: Performed By: #### C MP #### [facility] [address] [address] [address] Emily Lauren Globulin (S) [Mass/Vol] 4.2 g/dL Normal [facility] Comment on above: Performed By: #### C MP #### [facility] [address] [address] [address] Emily Lauren Glucose [Mass/Vol] 80 mg/dL Normal 74-106 [facility] Comment on above: Performed By: #### C MP #### [facility] [address] [address] [address] Emily Lauren Potassium [Moles/Vol] 4.1 mmol/L Normal 3.5-5.1 [facility] Comment on above: Performed By: #### C MP #### [facility] [address] [address] [address] Emily Lauren Protein [Mass/Vol] 7.6 g/dL Normal 6.4-8.2 [facility] Comment on above: Performed By: #### C MP #### [facility] [address] [address] [address] Emily Lauren Sodium [Moles/Vol] 143 mmol/L Normal 136-145 [facility] Comment on above: Performed By: #### C MP #### [facility] [address] [address] [address] Emily Lauren Urea nitrogen [Mass/Vol] 26.0 mg/dL Critically high 7.0-18.0 [facility] Comment on above: Performed By: #### C MP #### [facility] [address] [address] [address] Emily Lauren Urea nitrogen/Creatinine [Mass ratio] 31.3 mg/mg Normal [facility] Comment on above: Performed By: #### C MP #### [facility] [address] [address] [address] Emily Lauren Vital Signs Date Time Vital Sign Value Performing Clinician Facility 10-03-2023 15:59-0400 Body height 175.26 cm [facility] 10-03-2023 15:59-0400 Body mass index (BMI) [Ratio] 23.8 kg/m2 [facility] 10-03-2023 15:59-0400 Body weight 73.02 kg [facility] 10-03-2023 15:59-0400 Diastolic blood pressure 72 mm[Hg] [facility] 10-03-2023 15:59-0400 Heart rate 64 /min [facility] 10-03-2023 15:59-0400 Respiratory rate 12 /min [facility] 10-03-2023 15:59-0400 Systolic blood pressure 119 mm[Hg] [facility] 06-14-2023 14:52-0500 Body height 175.26 cm [facility] 06-14-2023 14:52-0500 Body mass index (BMI) [Ratio] 25.2 kg/m2 [facility] 06-14-2023 14:52-0500 Body weight 77.67 kg [facility] 06-14-2023 14:52-0500 Diastolic blood pressure 77 mm[Hg] [facility] 06-14-2023 14:52-0500 Heart rate 66 /min [facility] 06-14-2023 14:52-0500 Systolic blood pressure 128 mm[Hg] [facility] 02-22-2023 13:30-0400 Body height 175.26 cm [facility] Other [facility] Other 02-22-2023 13:30-0400 Body mass index (BMI) [Ratio] 27.82 kg/m2 [facility] Other [facility] Other 02-22-2023 13:30-0400 Body weight 85.46 kg [facility] Other [facility] Other 02-22-2023 13:30-0400 Diastolic blood pressure 70 mm[Hg] [facility] Other [facility] Other 02-22-2023 13:30-0400 Respiratory rate 12 /min [facility] Other [facility] Other 02-22-2023 13:30-0400 Systolic blood pressure 109 mm[Hg] [facility] Other [facility] Other 08-14-2022 12:00-0400 Body height 175.26 cm [facility] Other [facility] Other 08-14-2022 12:00-0400 Body mass index (BMI) [Ratio] 28.29 kg/m2 [facility] Other [facility] Other 08-14-2022 12:00-0400 Body weight 86.91 kg [facility] Other [facility] Other 08-14-2022 12:00-0400 Diastolic blood pressure 80 mm[Hg] [facility] Other [facility] Other 08-14-2022 12:00-0400 Respiratory rate 20 /min [facility] Other [facility] Other 08-14-2022 12:00-0400 Systolic blood pressure 126 mm[Hg] [facility] Other [facility] Other Encounters Encounter Date Encounter Type Care Provider Facility Start: 10-03-2023 End: 10-03-2023 ambulatory [facility] Work Phone: Start: 10-03-2023 End: 10-03-2023 Patient encounter procedure [facility] Work Phone: Start: 09-27-2023 Non-patient / Non-visit [facility] Work Phone: Start: 09-26-2023 End: 09-26-2023 ambulatory P[facility] SPRAGUE Not Available Start: 09-05-2023 Non-patient / Non-visit [facility] Work Phone: Start: 08-20-2023 End: 09-02-2023 Evaluation and management of inpatient JAVI Vang [facility] Start: 08-20-2023 Non-patient / Non-visit [facility] Work Phone: Start: 06-20-2023 End: 06-20-2023 ambulatory PITO SPRAGUE Not Available Start: 06-14-2023 End: 06-14-2023 ambulatory [facility] Work Phone: Start: 06-14-2023 End: 06-14-2023 Patient encounter procedure [facility] Work Phone: Start: 04-26-2023 End: 04-26-2023 ambulatory Flex Isaacs Other [facility] Other Start: 04-26-2023 Telephone encounter [facility] Start: 04-11-2023 End: 04-11-2023 ambulatory [facility] SPR[facility] Not Available Start: 04-05-2023 End: 04-05-2023 ambulatory Flex Isaacs Other [facility] Other Start: 04-05-2023 Telephone encounter Flex Isaacs [facility] Start: 03-19-2023 End: 03-19-2023 ambulatory Flex Isaacs Other [facility] Other Start: 03-19-2023 Telephone encounter Flex Isaacs [facility] Start: 03-07-2023 End: 03-07-2023 ambulatory Flex Isaacs Other [facility] Other Start: 03-07-2023 Home visit est pt mod-hi severity 40 minutes [facility] Start: 03-06-2023 End: 03-06-2023 ambulatory Flex Isaacs Other [facility] Other Start: 03-06-2023 Telephone encounter Flex Isaacs [facility] Start: 03-05-2023 End: 03-05-2023 ambulatory Flex Isaacs Other [facility] Other Start: 03-05-2023 Telephone encounter Flex Isaacs [facility] Start: 02-28-2023 End: 02-28-2023 ambulatory Kamilla Andersongómezcristina Other [facility] Other Start: 02-28-2023 Nursing evaluation o f patient and report Kamilla Mónicacristina [facility] Start: 02-22-2023 End: 02-22-2023 ambulatory Flex Isaacs Other [facility] Other Start: 02-22-2023 Transitional care manage srvc 14 day discharge Flex Isaacs [facility] Start: 02-20-2023 End: 02-20-2023 ambulatory Flex Isaacs Other [facility] Other Start: 02-20-2023 Telephone encounter Flex Isaacs [facility] Start: 02-11-2023 End: 02-11-2023 ambulatory Flex Isaacs Other [facility] Other Start: 02-11-2023 Telephone encounter Flex Isaacs [facility] Start: 01-03-2023 End: 01-03-2023 ambulatory Flex Isaacs Other [facility] Other Start: 01-03-2023 Telephone encounter Flex Isaacs [facility] Start: 01-02-2023 End: 01-02-2023 ambulatory Flex Isaacs Other [facility] Other Start: 01-02-2023 Telephone encounter Flex Isaacs [facility] Start: 01-01-2023 End: 01-01-2023 ambulatory Flex Isaacs Other [facility] Other Start: 01-01-2023 Telephone encounter Flex Isaacs [facility] Start: 12-31-2022 End: 12-31-2022 ambulatory Flex Isaacs Other [facility] Other Start: 12-31-2022 Telephone encounter [facility] Start: 12-10-2022 End: 12-10-2022 ambulatory Flex Isaacs Other [facility] Other Start: 12-10-2022 Telephone encounter Flex [facility]IGU[facility] Start: 12-09-2022 End: 12-09-2022 ambulatory Flex Isaacs Other [facility] Other Start: 12-09-2022 Telephone encounter Flex Isaacs [facility] Start: 10-04-2022 End: 10-04-2022 ambulatory Flex Isaacs Other [facility] Other Start: 10-04-2022 Telephone encounter Flex Isaacs [facility] Start: 08-16-2022 End: 08-16-2022 ambulatory Flex Isaacs Other [facility] Other Start: 08-16-2022 Telephone encounter Flex Isaacs [facility] Start: 08-15-2022 Telephone encounter [facility] Start: 08-15-2022 End: 08-16-[address] FLEX ISAACS [facility] Other Start: 08-14-2022 End: 08-14-2022 ambulatory Flex Isaacs Other [facility] Other Start: 08-14-2022 Patient encounter procedure Flex Isaacs [facility] Start: 05-20-2019 Adult health examination [facility] Other [facility] Other Procedures Date Procedure Procedure Detail Performing Clinician Start: 07-03-2017 Diabetes mellitus screening [facility] Other Start: 11-15-2015 Screening for malign ant neoplasm of colon [facility] Other Screening for malign ant neoplasm of prostate [facility] Other Immunizations Immunization Date Immunization Notes Care Provider Brando higgins 02-28-2023 influenza, high dose seasonal, preservative-free [facility] Other [facility] Other 02-28-2023 influenza virus vaccine, unspecified formulation [facility] 04-11-2022 influenza, injectabl e, quadrivalent, preservative free [facility] Other [facility] 02-23-2021 COVID-19 Vaccine Moderna - Documentation Purposes Only [facility] Other [facility] 06-17-2020 COVID-19 Vaccine Moderna - Documentation Purposes Only [facility] Other [facility] 05-20-2020 COVID-19 Vaccine Moderna - Documentation Purposes Only [facility] Other [facility] 07-03-2017 pneumococcal conjuga te vaccine, 13 valent [facility] Other [facility] 07-03-2017 pneumococcal Conjuga te, unspecified formulation; Translations: [Need for prophylactic vaccination against Streptococcus pneumoniae (pneumococcus)] [facility] Other [facility] Other 03-07-2017 influenza virus vaccine, split virus (incl. purified surface antigen) [facility] Other [facility] Other 03-07-2017 influenza virus vaccine, unspecified formulation [facility] 03-28-2016 influenza virus vaccine, split virus (incl. purified surface antigen) [facility] Other [facility] Other 03-28-2016 influenza virus vaccine, unspecified formulation [facility] 03-08-2015 influenza virus vaccine, split virus (incl. purified surface antigen) [facility] Other [facility] Other 03-08-2015 influenza virus vaccine, unspecified formulation [facility] 04-09-2013 tetanus and diphther ia toxoids, adsorbed, preservative free, for adult use (5 Lf of tetanus toxoid and 2 Lf of diphtheria toxoid) [facility] Other [facility] 01-28-2013 tetanus and diphther ia toxoids, adsorbed, preservative free, for adult use (5 Lf of tetanus toxoid and 2 Lf of diphtheria toxoid) [facility] Other [facility] 03-29-2010 pneumococcal polysaccharide vaccine, 23 valent [facility] Other [facility] Payers Date Payer Category Payer Unknown [id number] 2018 Unknown [id number] 1961 Medicare [id number] 1938 Unknown [id number] 1938 Unknown [id number] 1938 Unknown [id number] 1938 Unknown [id number] 1938 Unknown [id number] Private Health Insurance [employer] [id number] Social History Date Type Detail Facility Sex Assigned At [facility] Other Start: 1940 Sex Assigned At Male [facility] Clinical Notes 08-14-2022 to 04-26-2023 Note Date & Type Note Facility 04-26-2023 Evaluation note Encounter Date Diagnosis Assessment Notes Apr, Acute deep vein thrombosis (DVT) of right peroneal vein (ICD-10 - I82.451) [facility] Other 11-16-2023 Evaluation note* Encounter Date Diagnosis [...] for 6months. Check DDimer and venous US. [facility] Other 11-14-2023 Evaluation note* Encounter Date Diagnosis Assessment Notes Treatment Notes Treatment Clinical Notes Feb, Closed fracture of one rib of right side with routine healing, subsequent encounter (ICD-10 - S22.31XD) [facility] Other 11-09-2023 Evaluation note* Encounter Date Diagnosis Assessment Notes Treatment Notes Treatment Clinical Notes Feb, Need for vaccination (ICD-10 - Z23) [facility] Other 11-03-2023 Evaluation note* Encounter Date Diagnosis [...] - E44.0) Protein/calorie supplements daily. Monitor weight. [facility] Other 08-21-2023 Evaluation note* Encounter Date Diagnosis Assessment Notes Treatment Notes Treatment Clinical Notes Nov, Acute deep vein thrombosis (DVT) of left peroneal vein (ICD-10 - I82.452) Nov, Pressure injury of deep tissue of sacral region (ICD-10 - L89.156) Nov, Skin ulcer of heel, limited to breakdown of skin, unspecified laterality (ICD-10 - L97.401) [facility] Other 04-26-2023 NotePROCEDURE: XR HAND MEEK MIN [...] Electronically authenticated by: ROHINI PEARSON Date: 2022-08-15 11:57[facility]04-25-2023 Evaluation note* Encounter Date Diagnosis Assessment Notes [...] Jul, Fatigue, unspecified type (ICD-10 - R53.83) [facility] Other Evaluation noteNo InformationNort [facility] Other Evaluation note* Diagnosis Onset Date Resolution Status Anemia acute Chronic venous insufficiency acute Lumbar spondylosis acute Pharyngoesophageal dysphagia acute Pulmonary hypertension acute Right rib fracture acute [facility] Work Phone: Evaluation note* Diagnosis Onset Date Resolution Status Chronic bronchitis acute Chronic venous insufficiency acute HAP (hospital-acquired pneumonia) acute Hx of small bowel obstruction acute Lumbar spondylosis acute Pharyngoesophageal dysphagia acute Pulmonary hypertension acute [facility] Work Phone: [facility] Narrative - Reported* Type Description Date Medical History Diarrhea Medical History Chronic venous insufficiency Medical History 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 Medical History Seasonal allergic rhinitis due t o pollen Surgical History CHOLECYSTECTOMY Surgical History APPENDECTOMY Surgical History TONSILLECTOMY Surgical History LEFT KNEE ARTHROSCOPY Hospitalization History SEE SURGICAL HX [facility] Other [facility] Narrative - Reported* Type Description Date [...] KNEE ARTHROSCOPY Hospitalization History SEE SURGICAL HX [facility] Other [facility] Narrative - Reported* Type Description Date [...] KNEE ARTHROSCOPY Hospitalization History SEE SURGICAL HX [facility] Other History general Narrative - Reported* Type [...] 01/09 23 Hospitalization History SEE SURGICAL HX [facility] Other History general Narrative - Reported* Type [...] 01/09 23 Hospitalization History SEE SURGICAL HX [facility] Other Summary Purpose Family History No Family [...] ltsTCMUpdateNo InformationDental ClearanceFR HHUpdateNo InformationNo InformationtcmTCMD/C [facility] 02/19UpdateNo InformationAt WillowsWillowsflu shotMBS resultsSpeech Therapyrefill (unrecognized sect ion and content) No Status Records FoundNo Status Records FoundNo Status Records Found INFORMATION SOURCE (unrecogn ized section and content) DATE CREATED AUTHOR 08/19/2022 [facility] DATE CREATED AUTHOR AUTHOR'S ORGANIZ ATION 09/27/2023 [facility] EPIC DATE CREATED AUTHOR AUTHOR'S ORGANIZ ATION 10/12/2023 [facility] Care Teams (unrecognized sec tion and content) [...] Active Member Role Status Dates Flex Isaacs DO Primary Care Provider Active Start: September 27, 2023 DONALD Scruggs Attending Provider Active St art: September 27, 2023 Team Status: Inactive Member Role Status Dates Flex Isaacs , Primary Care Provide r, Attending Provider Active Start: October 03, 2023 End: October 03, 2023 Team Status: Inactive Member Role Status Dates Flex Isaacs , Primary Care Provide r, Attending Provider Active [...] BE BASED ON THE PRIMARY CLINICAL RECORDS. [facility] [employer] [facility]. provides no warranty or guarantee of the accuracy or completeness of information in this document.
[2023-12-04 11:54] LABS: Basophils Percent Auto 0.5 % (0.2-2.0); Eosinophils Absolute Auto 0.2 10^3/uL (0.0-0.7); Hematocrit 36.3 % (42.0-54.0); Hemoglobin 11.8 g/dL (14.0-18.0); Immature Granulocytes Abs Auto 0.01 10^3/uL (0.00-0.03); Immature Granulocytes Pct Auto 0.2 % (0.0-0.5); Mean Corpuscular HGB Conc 32.5 g/dL (29.9-35.2); Mean Corpuscular Hemoglobin 30.3 pg (25.9-34.0); Mean Corpuscular Volume 93.1 fL (80.0-94.0); Mean Platelet Volume 9.9 fL (9.5-13.5); Monocytes Absolute Auto 0.3 10^3/uL (0.3-0.8); Monocytes Percent Auto 5.7 % (1.7-12.0); Neutrophils Absolute Auto 3.1 10^3/uL (1.4-6.5); Neutrophils Percent Auto 54.6 % (43.0-75.0); Platelet Count 143 10^3/uL (150-450); Red Cell Distribution Width 15.5 % (11.0-15.0); White Blood Count 5.6 10^3/uL (4.0-11.0)
[2023-12-04 12:21] LABS: Alanine Aminotransferase 43 U/L (16-63); Albumin Globulin Ratio 0.6; Albumin Level 2.7 g/dL (3.4-5.0); Alkaline Phosphatase 98 U/L (46-116); Anion Gap 8.4; Aspartate Amino Transferase 49 U/L (15-37); BUN Creatinine Ratio 33.3; Bilirubin Total 0.7 mg/dL (0.2-1.0); Carbon Dioxide 29.1 mmol/L (21.0-32.0); Chloride 105 mmol/L (98-107); Estimated GFR (African America >60 (>=60); Estimated GFR (Non-African Ame >60 (>=60); Globulin 4.9 g/dL; Glucose 90 mg/dL (74-106); Potassium 4.5 mmol/L (3.5-5.1); Sodium 138 mmol/L (136-145); Total Protein 7.6 g/dL (6.4-8.2)
[2023-12-04 12:26] LABS: Percent Iron Saturation 18.1 %
== END 2023-12-04 11:21 | disposition home or self-care (01) ==
PROVIDERS: PCP Internal Medicine; Visit Provider Internal Medicine
DX: D64.9 Anemia, unspecified (principal); I27.20 Pulmonary hypertension, unspecified; I87.2 Venous insufficiency (chronic) (peripheral); J41.0 Simple chronic bronchitis
CPT/HCPCS: 36415; 80053; 82607; 82728; 82746; 83540; 83550; 85025

== ENCOUNTER 2024-02-17 08:16 | Inpatient (IN) | payer MEDICARE, OTHER, SELFPAY ==
[2024-02-17] VITALS (33 sets, daily range): BP systolic 94–146; BP diastolic 32–78; PULSE 38–90; TEMP 33.3–36.5; O2SAT 81–99; BMI 23.8; BMI 25.0
--- NOTE | 2024-02-17 08:19 | XR_ITS ---
The [address] [address] Patient Name: ROSANNA SOUSA MRN: [id number] date: 1940 Sex: M Assigned Patient Location: ER Current Patient Location: ER Accession/Order Number: [id number] Exam Date: 02/17/2024 08:54 Report Date: 02/17/2024 09:43 At the request of: SUE NORTON Procedure: XR humerus RT PROCEDURE: XR shoulder RT min 2V, XR humerus RT, XR elbow RT min 3V COMPARISON: None. HISTORY: fall FINDINGS: BONES:Acute nondisplaced fracture distal clavicle. Mild acromioclavicular and glenohumeral joint osteoarthropathy. Focal sclerosis mid diaphysis of the humerus likely a benign enostosis. Moderate degenerative changes of the elbow with marginal osteophyte formation. SOFT TISSUES:Negative. No visible soft tissue swelling. EFFUSION:None visible. OTHER: Negative. XR/XR humerus RT IMPRESSION: Acute distal clavicle fracture No acute fracture of the humerus or elbow Electronically authenticated by: SOL GÓMEZ Date: 02/17/2024 09:43
--- NOTE | 2024-02-17 08:19 | XR_ITS ---
The [address] [address] Patient Name: ROSANNA SOUSA MRN: [id number] date: 1940 Sex: M Assigned Patient Location: ER Current Patient Location: ER Accession/Order Number: [id number] Exam Date: 02/17/2024 08:54 Report Date: 02/17/2024 09:43 At the request of: SUE NROTON Procedure: XR shoulder RT min 2V PROCEDURE: XR shoulder RT min 2V, XR humerus RT, XR elbow RT min 3V COMPARISON: None. HISTORY: fall FINDINGS: BONES:Acute nondisplaced fracture distal clavicle. Mild acromioclavicular and glenohumeral joint osteoarthropathy. Focal sclerosis mid diaphysis of the humerus likely a benign enostosis. Moderate degenerative changes of the elbow with marginal osteophyte formation. SOFT TISSUES:Negative. No visible soft tissue swelling. EFFUSION:None visible. OTHER: Negative. XR/XR shoulder RT min 2V IMPRESSION: Acute distal clavicle fracture No acute fracture of the humerus or elbow Electronically authenticated by: SOL GÓMEZ Date: 02/17/2024 09:43
--- NOTE | 2024-02-17 08:19 | XR_ITS ---
The [address] [address] Patient Name: ROSANNA SOUSA MRN: [id number] date: 1940 Sex: M Assigned Patient Location: ER Current Patient Location: ER Accession/Order Number: [id number] Exam Date: 02/17/2024 08:54 Report Date: 02/17/2024 09:43 At the request of: SUE NORTON Procedure: XR elbow RT min 3V PROCEDURE: XR shoulder RT min 2V, XR humerus RT, XR elbow RT min 3V COMPARISON: None. HISTORY: fall FINDINGS: BONES:Acute nondisplaced fracture distal clavicle. Mild acromioclavicular and glenohumeral joint osteoarthropathy. Focal sclerosis mid diaphysis of the humerus likely a benign enostosis. Moderate degenerative changes of the elbow with marginal osteophyte formation. SOFT TISSUES:Negative. No visible soft tissue swelling. EFFUSION:None visible. OTHER: Negative. XR/XR elbow RT min 3V IMPRESSION: Acute distal clavicle fracture No acute fracture of the humerus or elbow Electronically authenticated by: SOL GÓMEZ Date: 02/17/2024 09:43
--- NOTE | 2024-02-17 08:19 | CT_ITS ---
The [address] [address] Patient Name: ROSANNA SOUSA MRN: [id number] date: 1940 Sex: M Assigned Patient Location: ER Current Patient Location: ER Accession/Order Number: [id number] Exam Date: 02/17/2024 08:54 Report Date: 02/17/2024 09:57 At the request of: SUE NORTON Procedure: CT cervical spine wo con EXAM: CT cervical spine wo con HISTORY: Fall. COMPARISON: Comparison made to CT cervical spine dated 09/28/2022. TECHNIQUE: Contiguous transaxial images obtained through the cervical spine with coronal and sagittal reformations performed. FINDINGS: There is osteopenia of the cervical spine. There is levocurvature of the cervical spine. There is no prevertebral soft tissue swelling or acute cervical spine fracture. There is multilevel degenerative disc disease of the cervical spine that is most pronounced from C2-3 through C6-7 where it is moderate to severe. There are small posterior disc-osteophyte complexes from C3-4 through C6-7 that contribute to central canal narrowing. There is uncovertebral joint osteoarthritis from C2-3 through C6-7. There is also multilevel and bilateral facet joint osteoarthritis. Uncovertebral and facet joint osteoarthritis contribute to neural foraminal narrowing. Neural foraminal narrowing is noted on the right from C2-3 through C5-6 and on the left at C3-4, C5-6, and C6-7. There is atlantodental articulation osteoarthritis. There is partial opacification of the caudal mastoid air cells. There is mild carotid artery atherosclerosis. CT/CT cervical spine wo con IMPRESSION: 1. No acute cervical spine fracture. 2. Multilevel degenerative disc disease of the cervical spine is most prominent from C2-3 through C6-7 where it is moderate to severe. Associated small posterior disc-ossify complexes from C3-4 through C6-7 contributing to central canal narrowing. Uncovertebral and facet joint osteoarthritis contribute to bilateral neural foraminal narrowing as described. 3. Partial opacification of caudal mastoid air cells. 4. Carotid artery atherosclerosis. Electronically authenticated by: MICKI SIMEON Date: 02/17/2024 09:57
--- NOTE | 2024-02-17 08:19 | CT_ITS ---
The [place] [id number] Patient Name: ROSANNA SOUSA MRN: [id number] date: 1940 Sex: M Assigned Patient Location: ER Current Patient Location: ER Accession/Order Number: [id number] Exam Date: 02/17/2024 08:54 Report Date: 02/17/2024 09:59 At the request of: SUE NORTON Procedure: CT head/brain wo con EXAMINATION: CT head/brain wo con, 02/17/2024 8:54 AM EDT HISTORY: fall COMPARISON: 09/28/2022 TECHNIQUE: CT scan of the head was performed without IV contrast. CT dose reduction technique was used, including Automated Exposure Control. FINDINGS: BRAIN: Mild to moderate diffuse supratentorial atrophy. Mild white matter signal abnormality, chronic small vessel ischemic changes with scattered remote lacunar infarcts. No acute hemorrhage mass or infarct CSF SPACES: No hydrocephalus, subarachnoid hemorrhage, or mass. Appropriate for age. SKULL: No fracture, mass, or other significant visible lesion. SINUSES: Opacification of the right frontal and partial opacification of the right ethmoid sinuses ORBITS: No appreciable abnormality on the limited views. OTHER: Negative CT/CT head/brain wo con IMPRESSION: No acute intracranial abnormality Electronically authenticated by: SOL GÓMEZ Date: 02/17/2024 09:59
--- NOTE | 2024-02-17 08:23 | XR_ITS ---
The [address] [address] Patient Name: ROSANNA SOUSA MRN: [id number] date: 1940 Sex: M Assigned Patient Location: ER Current Patient Location: ER Accession/Order Number: [id number] Exam Date: 02/17/2024 08:54 Report Date: 02/17/2024 09:45 At the request of: SUE NORTON Procedure: XR chest 1V EXAMINATION: XR chest 1V HISTORY: fall COMPARISON: TECHNIQUE: AP FINDINGS: LUNGS: Low lung volumes. Scattered linear opacities, atelectasis is favored VASCULATURE: No increased pulmonary vasculature. PLEURA: No pneumothorax, effusion, or pleural thickening. CARDIAC: No cardiomegaly or cardiac silhouette abnormality. MEDIASTINUM: No visible mass or adenopathy. BONES: Acute distal right clavicle fracture OTHER: Negative. XR/XR chest 1V IMPRESSION: Right clavicle fracture Bilateral atelectasis Electronically authenticated by: SOL GÓMEZ Date: 02/17/2024 09:45
--- NOTE | 2024-02-17 08:23 | ECG_ITS ---
The [facility] Test Date: 2024-02-17 Pat Name: ROSANNA SOUSA Department: Room: - Gender: Male [employer]: : 1940 Requested By: ANDREA BLOCK Order Number: [id number] Reading MD: ANDREA BLOCK Measurements Intervals [place] Rate: 51 P: 30 WI: 234 QRS: -41 QRSD: 174 T: 63 QT: 546 QTc: 522 Interpretive Statements 1100 Sinus rhythm 2231 First degree AV block 2450 Right bundle branch block 3414 Cannot rule out septal myocardial infarction, age undetermined 3532 Lateral myocardial infarction, probably recent 5234 Left ventricular hypertrophy with repolarization abnormality 7200 Abnormal left axis deviation 9150 abnormal ECG Electronically Signed On 02-17-2024 20:12:44 EDT by ANDREA BLOCK
--- NOTE | 2024-02-17 08:49 | ED_ITS ---
HPI HPI - General Adult General Chief complaint: Extremity Injury, Upper Stated complaint: UPPER EXTREMITY PAIN/FALL Time Seen by Provider: 02/17/24 08:18 Source: patient and family Mode of arrival: ambulance Limitations: physical limitation History of Present Illness HPI narrative: Patient is a 83-year-old male who is presenting to the ER today after feeling lightheaded, weak and falling down. Patient lives at home by himself. Patient has a normal routine where he typically will wake up, uses walker and go to the door, and then he will have coffee and breakfast. Patient had fallen. Patient has a life alert button when he fell that went to EMS staff. Patient daughter in the room it was well. EMS was at patient's house when daughter had arrived. Daughter stated they were all with him yesterday, they have brunch but the whole family once a month. Patient was acting normal and had no complaints yesterday. When patient had fallen, he hit into the wall and then fell down. He takes no blood thinners. Patient has pain to the right shoulder. Patient has no headache. Patient is sitting upright with a cervical collar applied loosely by EMS staff. This was repositioned by myself appropriately. Patient has no headache or neck pain. No chest pain or shortness of breath. Positive right shoulder pain. No back pain. No hip or lower extremity complaints. Patient said that he did not trip and fall, patient says that he lost his balance and fell over. All systems are negative except as noted/marked. All systems reviewed and otherwise negative. Nurses note and vital signs reviewed and patient is not hypoxic. General: The patient appears well and in no apparent distress. Patient is resting comfortably on cart. Patient is not toxic, lethargic, or listless. Patient is having low oral temperatures, rectal temperature will be done Skin: Warm, dry, no pallor noted. There is no rash noted. No petechiae, purpura. Head: Normocephalic, atraumatic Eye: Normal conjunctiva, no drainage, EOMI. PERRL Ears, Nose, Mouth, and Throat: oral mucosa is moist. Nares patent. Mouth without vesicles. Cardiovascular: Regular Rate and Rhythm, no murmur, gallop, rub Respiratory: Patient is in no distress, no accessory muscle use, lungs are clear to auscultation, no wheezing, rales or rhonchi Back: non-tender, no CVA tenderness bilaterally to percussion. No CT LS midline pain GI: no tenderness to palpation, no masses appreciated. No rebound, guarding, or rigidity noted. No distention Musculoskeletal: Patient has full range of motion of all of the extremities except to the right shoulder. Severe pain with any range of motion to the right shoulder. No tenderness to palpation of right clavicle. Patient neurovasc intact to right hand, distally from the right shoulder. Patient appears to have full range of motion of his right elbow wrist and hand no difficulty. Range of motion lower extremities no difficulty. Patient has full range of motion left u pper extremity no difficulty. no motor, sensory, or focal neurological deficits Neurological: A&O x4, normal speech Psychiatric: Cooperative Related Data Home Medications ?Medication ?Instructions ?Recorded ?Confirmed furosemide 20 mg tablet (Lasix) 20 mg PO .COMPLEX 03/04/23 08/20/23 albuterol sulfate 1.25 mg/3 mL 3 mg inhalation BID 02/17/24 02/17/24 solution for nebulization aspirin 81 mg capsule 81 mg PO DAILY 02/17/24 02/17/24 polysaccharide iron complex 150 mg 150 mg PO DAILY 02/17/24 02/17/24 iron capsule (Ferrex) tamsulosin 0.4 mg capsule 0.4 mg PO Q24H 02/17/24 02/17/24 Previous Rx's ?Medication ?Instructions ?Recorded acetaminophen 325 mg tablet 650 mg (2 x 325 mg) PO Q6H PRN 03/05/23 Moderate pain #90 tabs Allergies Allergy/AdvReac Type Severity Reaction Status Date / Time No Known Drug Allergies Allergy Verified 02/17/24 08:21 Opioid HPI Opioid Management Most Recent Opioid Data: Last Pain Scale 2 03/05/23 16:00 03/05/23 Last Pain Intensity 0 10/01/22 10:30 10/01/22 [facility] Medical History (Updated 02/17/24 @ 11:30 by Shaan Thacker MD) Peripheral edema ?R60.9 - Edema, unspecified (ICD-10) DVT (deep venous thrombosis) ?I82.409 - Acute embolism and thrombosis of unspecified deep veins of unspecified lower extremity (ICD-10) Old lacunar stroke without late effect ?Z86.73 - Personal history of transient ischemic attack (TIA), and cerebral infarction without residual deficits (ICD-10) Low back pain ?M54.50 - Low back pain, unspecified (ICD-10) Stage II pressure ulcer ?L89.92 - Pressure ulcer of unspecified site, stage 2 (ICD-10) Head injury ?S09.90XA - Unspecified injury of head, initial encounter (ICD-10) Elevated bilirubin ?R17 - Unspecified jaundice (ICD-10) Decubitus ulcer of ankle, stage 2 ?L89.502 - Pressure ulcer of unspecified ankle, stage 2 (ICD-10) Abrasion of scalp ?S00.01XA - Abrasion of scalp, initial encounter (ICD-10) Surgical History (Updated 08/20/23 @ 19:06 by Ruthann Delatorre) History of cholecystectomy ?Z90.49 - Acquired absence of other specified parts of digestive tract (ICD- 10) Hx of appendectomy ?Z90.49 - Acquired absence of other specified parts of digestive tract (ICD- 10) History of partial replacement of left hip joint using bipolar prosthesis ?Z96.642 - Presence of left artificial hip joint (ICD-10) History of knee replacement ?Z96.659 - Presence of unspecified artificial knee joint (ICD-10) Social History Within the past year, how often did you have a drink containing alcohol: mon thly or less Smoking status: Former smoker Exam Constitutional Vital Signs, click to edit/add: Last Vital Signs Temp 92.2 F L 02/17/24 09:55 Pulse 59 L 02/17/24 10:32 Resp 18 02/17/24 08:40 BP 94/53 02/17/24 10:30 Pulse Ox 97 02/17/24 10:32 O2 Del Method Room Air 02/17/24 08:23 Course Vital Signs Vital signs: Vital Signs Pulse Rate 54 L 02/17/24 08:21 Respiratory Rate 18 02/17/24 08:21 Blood Pressure 146/72 H 02/17/24 08:21 Pulse Oximetry 92 L 02/17/24 08:21 Oxygen Delivery Method Room Air 02/17/24 08:21 Temperature 92.2 F L 02/17/24 09:55 Pulse Rate 59 L 02/17/24 10:32 Respiratory Rate 18 02/17/24 08:40 Blood Pressure 94/53 02/17/24 10:30 Pulse Oximetry 97 02/17/24 10:32 Oxygen Delivery Method Room Air 02/17/24 08:23 Medical Decision Making MDM Narrative Medical decision making narrative: Patient had a rectal temperature of 91. Ruslan hugger was placed. Patient was given 1 L of warm fluids. Patient will not have a septic workup and will be admitted to the hospital. Patient has CT of the head neck, x-rays of his shoulder and upper extremity. 1045 patient has approximately 200 cc of urine in his bladder at this time. Patient is receiving his second liter of warm fluids secondary to hypothermia. Patient still has a bear hugger on. No obvious acute source of infection at this time. Patient's BUN is 30. [address] Birch for admission. Patient will be admitted. Patient is currently finishing his second liter of IV fluid. Patient's blood pressure has been slightly low. Patient is receiving Zosyn. Patient had approximately 200 cc of urine, or so waiting for sample but antibiotics have been started. Patient is currently eating and drinking. Patient does feel better after IV fluids. Patient will follow-up with PCP. No questions at discharge. Patient is hypothermic with no source at this time. Son and daughter been at bedside Critical care time 35 minutes exclusive from separate billable procedures that were performed. The following was considered in the determination of critical care but not limited to the level of medical decision making, intensive cardiac and/or respiratory monitoring, frequent vital sign monitoring, evaluation of laboratory studies, evaluation of radiographic studies, oxygen monitoring, and constant monitoring and speaking to family at bedside Lab Data Labs: Lab Results 02/17/24 02/17/24 Range/Units 08:40 10:56 WBC 4.0 (4.0-11.0) 10^3/uL RBC 3.75 L (4.70-6.10) 10^6/uL Hgb 11.2 L (14.0-18.0) g/dL Hct 34.7 L (42.0-54.0) % MCV 92.5 (80.0-94.0) fL MCH 29.9 (25.9-34.0) pg MCHC 32.3 (29.9-35.2) g/dL RDW 16.9 H (11.0-15.0) % Plt Count 83 L (150-450) 10^3/uL MPV 10.6 (9.5-13.5) fL Neut % (Auto) 56.4 (43.0-75.0) % Lymph % (Auto) 34.3 (20.5-60.0) % Hamblen % (Auto) 4.5 (1.7-12.0) % Eos % (Auto) 2.5 (0.9-7.0) % Baso % (Auto) 0.5 (0.2-2.0) % Neut # (Auto) 2.3 (1.4-6.5) 10^3/uL Lymph # (Auto) 1.4 (1.2-3.8) 10^3/uL Hamblen # (Auto) 0.2 L (0.3-0.8) 10^3/uL Eos # (Auto) 0.1 (0.0-0.7) 10^3/uL Baso # (Auto) 0.0 (0.0-0.1) 10^3/uL Abs Immat Gran (auto) 0.07 H (0.00-0.03) 10^3/uL Imm/Tot Granulo (auto) 1.8 H (0.0-0.5) % VBG pH 7.396 (7.330-7.430) VBG pCO2 48.9 (40.0-52.0) mmHg Sodium 141 (136-145) mmol/L Potassium 4.0 (3.5-5.1) mmol/L Chloride 106 (98-107) mmol/L Carbon Dioxide 27.9 (21.0-32.0) mmol/L Anion Gap 11.1 BUN 30.0 H (7.0-18.0) mg/dL Creatinine 0.70 (0.70-1.30) mg/dL Est GFR ( Amer) >60 (>=60 mL/min/1.73m^2) Est GFR (Non-Af Amer) >60 (>=60 mL/min/1.73m^2) BUN/Creatinine Ratio 42.9 Glucose 114 H (74-106) mg/dL Lactate 0.9 (0.4-2.0) mmol/L Calcium 8.8 (8.5-10.1) mg/dL Magnesium 1.8 (1.8-2.4) mg/dL Total Bilirubin 0.8 (0.2-1.0) mg/dL AST 118 H (15-37) U/L ALT 130 H (16-63) U/L Alkaline Phosphatase 123 H (46-116) U/L Total Creatine Kinase 199 (39-308) U/L Troponin I High Sens 14.6 (4.0-76.1) pg/mL Total Protein 8.3 H (6.4-8.2) g/dL Albumin 2.5 L (3.4-5.0) g/dL Globulin 5.8 g/dL Albumin/Globulin Ratio 0.4 Influenza Type A Ag Negative Influenza Type B Ag Negative SARS-CoV-2 Ag (CV2AG) Negative (NEGATIVE) Imaging Data CT scan - pelvis: Radiologist's impression: ITS Impressions Cervical Spine CT 02/17/24 08:19 IMPRESSION: 1. No acute cervical spine fracture. 2. Multilevel degenerative disc disease of the cervical spine is most prominent from C2-3 through C6-7 where it is moderate to severe. Associated small posterior disc-ossify complexes from C3-4 through C6-7 contributing to central canal narrowing. Uncovertebral and facet joint osteoarthritis contribute to bilateral neural foraminal narrowing as described. 3. Partial opacification of caudal mastoid air cells. 4. Carotid artery atherosclerosis. Electronically authenticated by: MICKI SIMEON Date: 02/17/2024 09:57 Elbow X-Ray 02/17/24 08:19 IMPRESSION: Acute distal clavicle fracture No acute fracture of the humerus or elbow Electronically authenticated by: SOL GÓMEZ Date: 02/17/2024 09:[address] 02/17/24 08:19 IMPRESSION: No acute intracranial abnormality Electronically authenticated by: SOL GÓMEZ Date: 02/17/2024 09:59 Humerus X-Ray 02/17/24 08:19 IMPRESSION: Acute distal clavicle fracture No acute fracture of the humerus or elbow Electronically authenticated by: SOL GÓMEZ Date: 02/17/2024 09:43 Shoulder X-Ray 02/17/24 08:19 IMPRESSION: Acute distal clavicle fracture No acute fracture of the humerus or elbow Electronically authenticated by: SOL GÓMEZ Date: 02/17/2024 09:43 Chest X-Ray 10/28/24 08:23 IMPRESSION: Right clavicle fracture Bilateral atelectasis Electronically authenticated by: SOL GÓMEZ Date: 02/17/2024 09:45 ECG Data Attestation: I personally reviewed and interpreted this ECG as follows: (EKG interpretation. Normal sinus rhythm at 51 beats a minute. Left axis deviation. No acute ST elevation, no acute ectopy. QTc of 522. Artifact noted. MS interval 234, first-degree block, right bundle branch block as well. Prolonged QT of 522) Discharge Plan Discharge Chief Complaint: Extremity Injury, Upper Clinical Impression: Hypothermia, Closed fracture of right clavicle, Mild dehydration, Fall (on) (from) other stairs and steps, subsequent encounter Patient Disposition: Admitted As Inpatient Time of Disposition Decision: 11:29 Condition: Fair
--- OUTSIDE RECORDS SUMMARY | 2024-02-17 08:49 | XMS_ITS | CCD ---
Author Organization [facility] Care Team Providers Care Machine Stuffer Automatic Name Role Phone Flex Isaacs Unavailable DR FLEX ISAACS Admitting Unavailable FERNY, DR MENDEZ Primary Care Unavailable FERNY, DR MENDEZ Consulting Unavailable FERNY, DR MENDEZ Attending Unavailable Rohini Pearson Consulting Unavailable Kamilla Vieira Unavailable JAVI GLYNN Consulting Unavailable ANEL BENSON Admitting Unavail able ANEL BENSON Attending Unavail able FLEX ISAACS Primary Care Unavailable JESSICA PIERCE Consulting Unavailable CESAR PHILLIPS Consulting Unavailable DESTINEE MERCADO Consulting Unavailable MICH DENT Consulting Unavailable PITO SPRAGUE Attending Unavailable PITO SPRAGEU Attending Unavailable PITO SPRAGUE Attending Unavailable PITO SPRAGUE Attending Unavailable Allergies Allergy Classification Reported Allergen(s) Allergy Type Date of Onset Reaction(s) Facility (8 sources) patient allergy list reviewed by nurse or physicia Propensity to adverse reactions 5 Comment:Done [employer] Other Medications Current Medications Medication Drug Class(es) Dates Sig (Normalized) Sig (Original) albuterol 0.417 mg/ml inhalation solution (5 sources) beta2-Adrenergic Agonist Start: 10-03-2023 take 1.25 mg by inhalation twice daily Albuterol Sulfate Active 1.25 MG INHALATION Twice daily 225 October 03, 2023 4:54pm Start: 10-03-2023 End: 10-03-2023 take 1.25 mg by inhalation twice daily Albuterol Sulfate Discontinued 1.25 MG INHALATION Twice daily 180 October 03, 2023 12:00am October 03, 2023 4:55pm Start: 10-03-2023 take 1.25 mg by inha lation twice daily Albuterol Sulfate Active 1.25 MG INHALATION Twice daily October 03, 2023 12:00am Start: 09-27-2023 End: 10-03-2023 Albuterol Sulfate Discontinu ed 2.5 MG INHALATION Q20M September 27, 2023 12:00am October 03, 2023 4:05pm for up to 3 doses aspirin 81 mg delayed release oral tablet (4 sources) Platelet Aggregation Inhibitor, Nonsteroidal Anti-inflammatory Drug Start: 09-27-2023 End: 09-27-2023 take 1 tablet by mouth once daily Aspirin (Adult Aspirin Regimen) 81 mg tablet,delayed release (DR/EC) Active 81 MG PO Daily September 27, 2023 1:30pm folic acid 1 mg oral tablet (1 source) Start: 12-05-2023 take 1 mg by mouth once daily Folic Acid Active 1 MG PO Daily December 05, 2023 12:00am furosemide 20 mg oral tablet (18 sources) Loop Diuretic Start: 06-14-2023 End: 09-27-2023 [...] 1 tablet Orally Once a day Active Nebulizer Accessories (Adult Aerosol Mask) misc (1 source) Start: 10-17-2023 Nebulizer Accessories (Adult Aerosol Mask) misc Active 0 .Route October 17, 2023 12:00am As directed Neubulizer Compressor or Device (1 source) Start: 10-04-2023 Neubulizer Compressor or Device Active 0 .Route .MEDSUPPLY October 04, 2023 12:00am As directed polysaccharide iron complex 150 mg oral capsule (1 source) Start: 12-05-2023 Polysaccharide Iron Complex (Ferrex 150) 150 mg iron capsule Active 150 MG PO .QOD December 05, 2023 12:00am prednisoLONE 1.2 mg/ml ophthalmic suspension (2 sources) Corticosteroid Start: 10-03-2023 take 1 drop(s) into the eye(s) three times daily Prednisolone Acetate Active 1 DROPS EYE-BOTH Three times daily October 03, 2023 12:00am Sennosides-Docusate Sodium (2 sources) Start: 09-27-2023 take 2 tablets by mouth once daily at bedtime Sennosides-Docusate Sodium Active 2 TAB-CAP PO Daily at bedtime September 27, 2023 12:00am tamsulosin hydrochloride 0.4 mg oral capsule (4 sources) alpha-Adrenergic Anita Start: 09-27-2023 End: 09-27-2023 take 1 capsule by mouth once daily Tamsulosin (Flomax) 0.4 mg capsule Active 0.4 MG PO Daily September 27, 2023 1:29pm Tylenol 8 Hour 650 MG (8 sources) take 2 tablets by mouth every eight hours as needed Tylenol 8 Hour 650 MG 2 tablets as needed Orally every 8 hrs Active Vitamin A (5 sources) Vitamin A Start: 10-03-2023 Vitamin A Active NOTAPPLIC October 03, 2023 12:00am Start: 06-14-2023 End: 09-27-2023 take 1 ug by mouth once daily Vitamin A Acetate Discon tinued MCG PO Daily June 14, 2023 1:00am September 27, 2023 1:24pm Completed/Discontinued Medications Medication Drug Class(es) Dates Sig (Normalized) Sig (Original) acetaminophen 500 mg oral tablet (17 sources) Start: 09-27-2023 End: 10-03-2023 take 1 [...] hrs Active apixaban 5 mg oral tablet (16 sources) Factor Xa Inhibitor Start: 06-14-2023 End: 09-27-2023 take 5 mg by mouth once Apixaban Discontinued 5 MG PO Once June 14, 2023 4:02pm September 27, 2023 1:23pm Start: 06-12-2023 End: 06-14-2023 take 5 mg by mouth twice daily Apixaban Discontinued 5 MG PO Twice daily June 12, 2023 1:00am June 14, 2023 4:05pm take 1 tablet by lely every twelve hours Eliquis 5 MG 1 tablet Orally Twice a day for 30 days Active benzonatate 200 mg oral capsule (2 sources) Non-narcotic Antitussive Start: 09-27-2023 End: 10-03-2023 take 200 mg by mouth three times daily Benzonatate Discontinued 200 MG PO Three times daily September 27, 2023 12:00am October 03, 2023 4:05pm melatonin 10 mg oral capsule (2 sources) Start: 09-27-2023 End: 10-03-2023 take 10 mg by mouth once daily at bedtime Melatonin Discontinued 10 MG PO Daily at bedtime September 27, 2023 12:00am October 03, 2023 4:06pm naproxen sodium 220 mg oral capsule (3 sources) Nonsteroidal Anti-inflammatory Drug Start: 06-14-2023 End: 09-27-2023 take 220 mg by mouth every twelve hours Naproxen Sodium Discontinued 220 MG PO Every 12 hours June 14, 2023 1:00am September 27, 2023 1:24pm ondansetron 4 mg disintegrating oral tablet (2 sources) Serotonin-3 Receptor Antagonist Start: 09-27-2023 End: 10-03-2023 take 4 mg by mouth every eight hours Ondansetron Discontinued 4 MG PO Every 8 hours September 27, 2023 12:00am October 03, 2023 4:06pm polyethylene glycol 3350 [id number] mg powder for oral solution (2 sources) Osmotic Laxative Start: 09-27-2023 End: 10-03-2023 Polyethylene Glycol 3350 (Miralax) 17 gram/dose powder Discontinued 17 GM PO Daily September 27, 2023 12:00am October 03, 2023 4:06pm potassium citrate 10 meq extended release oral tablet (6 sources) Start: 09-27-2023 End: 10-03-2023 take 10 mEq by mouth once daily Potassium Citrate Discontinued 10 MEQ PO Daily September 27, 2023 1:29pm October 03, 2023 4:06pm Psyllium (13 sources) Start: 06-12-2023 End: 06-14-2023 take 8 [...] Episodic/Chronic Chronic obstructive pulmonary disease and bronchiectasis (5 sources) Chronic bronchitis; Translations: [Unspecified chronic bronchitis] 10-03-2023 Chronic Chronic ulcer of skin (14 sources) 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; Translations: [Pressure ulcer of sacral region, stage 1] Chronic Deficiency and other anemia (11 sources) Anemia; Translations: [Anemia, unspecified] Onset: 06-13-2023 [...] 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 Immunizations and screening for infectious disease [...] 3 Episodic Other aftercare (2 sources) Other petroleum terminal plant operator (current) drug therapy; Translations: [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] Onset: 3 Episodic Other and unspecified benign neoplasm (8 sources) Benign neoplasm of skin; Translations: [Benign neoplasm of skin, site unspecified] Episodic Other diseases of veins and lymphatics (20 sources) Peripheral venous insufficiency; Translations: [Venous insufficiency (chronic) (peripheral)] 06-12-2023 Episodic Other diseases of veins and lymphatics (5 sources) Venous insufficiency (chronic) (peripheral); Translations: [Venous (peripheral) insufficiency, unspecified] Episodic Other fractures (1 source) Fracture of one rib, right side, subsequent encounter for fracture with routine healing Episodic Other fractures (1 source) Fracture of one rib, left side, subsequent encounter for fracture with routine healing Episodic Other fractures (3 sources) Fracture of right rib; Translations: [Fracture of one rib, right side, initial encounter for closed fracture] 06-13-2023 Episodic Other fractures (1 source) Fracture of one rib, right side, initial encounter for closed fracture; Translations: [Closed fracture of rib(s), unspecified] 06-14-2023 Episodic Other gastrointestinal disorders (20 sources) Diarrhea; Translations: [Diarrhea, unspecified] Episodic Other gastrointestinal disorders (13 sources) Dysphagia; Translations: [Dysphagia, pharyngoesophageal phase] 06-13-2023 Episodic Other gastrointestinal disorders (4 sources) Dysphagia, pharyngoesophageal phase; Translations: [Dysphagia, pharyngoesophageal phase] Episodic Other gastrointestinal disorders (1 source) Diarrhea, unspecified; Translations: [Diarrhea] Episodic Other gastrointestinal disorders (4 sources) Personal history of other diseases of [...] unspecified organism] 10-02-2023 Episodic Pulmonary heart disease (19 sources) Pulmonary hypertension; Translations: [Pulmonary hypertension, unspecified] [...] Test Name Value Interpretation Reference Range Facility Basophils Auto (Bld) [#/Vol] on 12-04-2023 Basophils (Bld) [#/Vol] 0.0 10 3/uL 0.0-0.1 [facility] Basophils/100 WBC Auto (Bld) on 12-04-2023 Basophils/100 WBC (Bld) 0.5 % 0.2-2.0 [facility] Eosinophils/100 WBC Auto (Bl d)on 12-04-2023 Eosinophils/100 WBC (Bld) 3.0 % 0.9-7.0 [facility] Erythrocyte distribution wid th Auto (RBC) [Ratio]on 12-04-2023 Erythrocyte distribution width (RBC) [Ratio] 15.5 % High 11.0-15.0 [facility] Estimated glomerular filtrat ion rate (GFR) non- Americanon 12-04-2023 GFR/1.73 sq M.predicted among non-blacks MDRD (S/P/Bld) [Vol rate/Area] mL/min/{1.73_m2} >=60 [facility] Globulin Calc (S) [Mass/Vol] on 12-04-2023 Globulin (S) [Mass/Vol] 4.9 g/dL [facility] Hematocrit Auto (Bld) [Volum e fraction]on 12-04-2023 Hematocrit (Bld) [Volume fraction] 36.3 % Low 42.0-54.0 [facility] Hemoglobin [Mass/volume] in Bloodon 12-04-2023 Hemoglobin (Bld) [Mass/Vol] 11.8 g/dL Low 14.0-18.0 [facility] Iron binding capacity [Mass/ volume] in Serum or Plasmaon 12-04-2023 Iron binding capacity [Mass/Vol] 293.0 ug/dL 250.0-450.0 [facility] Iron saturation [Mass Fracti on] in Serum or Plasmaon 12-04-2023 Iron saturation [Mass fraction] 18.1 % [facility] - Chemistry and C hemistry - challengeon 12-04-2023 Albumin [Mass/Vol] 2.7 g/dL Low 3.4-5.0 [facility] ALP [Catalytic activity/Vol] 98 U/L 46-116 [facility] ALT [Catalytic activity/Vol] 43 U/L 16-63 [facility] AST [Catalytic activity/Vol] 49 U/L High 15-37 [facility] Bilirubin [Mass/Vol] 0.7 mg/dL 0.2-1.0 [facility] Calcium [Mass/Vol] 9.0 mg/dL 8.5-10.1 [facility] Chloride [Moles/Vol] 105 mmol/L 98-107 [facility] CO2 [Moles/Vol] 29.1 mmol/L 21.0-32.0 [facility] Cobalamin (Vitamin B12) [Mass/Vol] 782.0 pg/mL 193.0-986.0 [facility] Creatinine [Mass/Vol] 0.78 mg/dL 0.70-1.30 [facility] Ferritin [Mass/Vol] 139.0 ng/mL 26.0-388.0 [facility] GFR/1.73 sq M.predicted MDRD (S/P/Bld) [Vol rate/Area] mL/min/{1.73_m2} >=60 [facility] Glucose [Mass/Vol] 90 mg/dL 74-106 [facility] Iron [Mass/Vol] 53.0 ug/dL Low 65.0-175.0 [facility] Potassium [Moles/Vol] 4.5 mmol/L 3.5-5.1 [facility] Protein [Mass/Vol] 7.6 g/dL 6.4-8.2 [facility] Sodium [Moles/Vol] 138 mmol/L 136-145 [facility] Urea nitrogen [Mass/Vol] 26.0 mg/dL High 7.0-18.0 [facility] Urea nitrogen/Creatinine [Mass ratio] 33.3 mg/mg [facility] - Hematology and Cell countson 12-04-2023 Immature granulocytes/100 WBC (Bld) 0.2 % 0.0-0.5 [facility] Leukocytes [#/volume] correc александр for nucleated erythrocytes in Blood by Automated counon 12-04-2023 WBC corrected for nucl RBC Auto (Bld) [#/Vol] 5.6 10 3/uL 4.0-11.0 [facility] Lymphocytes Auto (Bld) [#/Vo l]on 12-04-2023 Lymphocytes (Bld) [#/Vol] 2.0 10 3/uL 1.2-3.8 [facility] Lymphocytes/100 WBC Auto (Bl d)on 12-04-2023 Lymphocytes/100 WBC (Bld) 36.0 % 20.5-60.0 [facility] MCH Auto (RBC) [Entitic mass ]on 12-04-2023 MCH (RBC) [Entitic mass] 30.3 pg 25.9-34.0 [facility] MCHC Auto (RBC) [Mass/Vol]on 12-04-2023 MCHC (RBC) [Mass/Vol] 32.5 g/dL 29.9-35.2 [facility] MCV Auto (RBC) [Entitic vol] on 12-04-2023 MCV (RBC) [Entitic vol] 93.1 fL 80.0-94.0 [facility] Monocytes Auto (Bld) [#/Vol] on 12-04-2023 Monocytes (Bld) [#/Vol] 0.3 10 3/uL 0.3-0.8 [facility] Monocytes/100 WBC Auto (Bld) on 12-04-2023 Monocytes/100 WBC (Bld) 5.7 % 1.7-12.0 [facility] Neutrophils Auto (Bld) [#/Vo l]on 12-04-2023 Neutrophils (Bld) [#/Vol] 3.1 10 3/uL 1.4-6.5 [facility] Neutrophils/100 WBC Auto (Bl d)on 12-04-2023 Neutrophils/100 WBC (Bld) 54.6 % 43.0-75.0 [facility] No Panel Informationon 12-03 Eosinophils # (Auto) 0.2 10 3/uL 0.0-0.7 [facility] Folate 8.50 ng/mL Low 8.60-58.90 [facility] Immature Granulocyte # (Auto) 0.01 10 3/uL 0.00-0.03 [facility] Platelet mean volume Auto (B ld) [Entitic vol]on 12-04-2023 Platelet mean volume (Bld) [Entitic vol] 9.9 fL 9.5-13.5 [facility] Platelets Auto (Bld) [#/Vol] on 12-04-2023 Platelets (Bld) [#/Vol] 143 10 3/uL Low 150-450 [facility] RBC Auto (Bld) [#/Vol]on RBC (Bld) [#/Vol] 3.90 10 6/uL Low 4.70-6.10 [facility] Serum or plasma albumin/glob ulin mass ratioon 12-04-2023 Albumin/Globulin [Mass ratio] 0.6 {ratio} [facility] Serum or plasma anion gap de terminationon 12-04-2023 Anion gap [Moles/Vol] 8.4 mmol/L [facility] Basophils Auto (Bld) [#/Vol] on 10-23-2023 Basophils (Bld) [#/Vol] 0.0 10 3/uL 0.0-0.1 [facility] Basophils/100 WBC Auto (Bld) on 10-23-2023 Basophils/100 WBC (Bld) 0.3 % 0.2-2.0 [facility] Eosinophils/100 WBC Auto (Bl d)on 10-23-2023 Eosinophils/100 WBC (Bld) 4.6 % 0.9-7.0 [facility] Erythrocyte distribution wid th Auto (RBC) [Ratio]on 10-23-2023 Erythrocyte distribution width (RBC) [Ratio] 15.4 % High 11.0-15.0 [facility] Estimated glomerular filtrat ion rate (GFR) non- Americanon 10-23-2023 GFR/1.73 sq M.predicted among non-blacks MDRD (S/P/Bld) [Vol rate/Area] mL/min/{1.73_m2} >=60 [facility] Globulin Calc (S) [Mass/Vol] on 10-23-2023 Globulin (S) [Mass/Vol] 4.9 g/dL [facility] Hematocrit Auto (Bld) [Volum e fraction]on 10-23-2023 Hematocrit (Bld) [Volume fraction] 35.9 % Low 42.0-54.0 [facility] Hemoglobin [Mass/volume] in Bloodon 10-23-2023 Hemoglobin (Bld) [Mass/Vol] 11.4 g/dL Low 14.0-18.0 [facility] - Chemistry and C hemistry - challengeon 10-23-2023 Albumin [Mass/Vol] 2.8 g/dL Low 3.4-5.0 [facility] ALP [Catalytic activity/Vol] 98 U/L 46-116 [facility] ALT [Catalytic activity/Vol] 30 U/L 16-63 [facility] AST [Catalytic activity/Vol] 39 U/L High 15-37 [facility] Bilirubin [Mass/Vol] 0.8 mg/dL 0.2-1.0 [facility] Calcium [Mass/Vol] 8.8 mg/dL 8.5-10.1 [facility] Chloride [Moles/Vol] 104 mmol/L 98-107 [facility] CO2 [Moles/Vol] 31.0 mmol/L 21.0-32.0 [facility] Creatinine [Mass/Vol] 0.82 mg/dL 0.70-1.30 [facility] GFR/1.73 sq M.predicted MDRD (S/P/Bld) [Vol rate/Area] mL/min/{1.73_m2} >=60 [facility] Glucose [Mass/Vol] 91 mg/dL 74-106 [facility] Potassium [Moles/Vol] 4.3 mmol/L 3.5-5.1 [facility] Protein [Mass/Vol] 7.7 g/dL 6.4-8.2 [facility] Sodium [Moles/Vol] 140 mmol/L 136-145 [facility] Urea nitrogen [Mass/Vol] 23.0 mg/dL High 7.0-18.0 [facility] Urea nitrogen/Creatinine [Mass ratio] 28.0 mg/mg [facility] - Hematology and Cell countson 10-23-2023 Immature granulocytes/100 WBC (Bld) 0.2 % 0.0-0.5 [facility] Leukocytes [#/volume] correc александр for nucleated erythrocytes in Blood by Automated counon 10-23-2023 WBC corrected for nucl RBC Auto (Bld) [#/Vol] 6.1 10 3/uL 4.0-11.0 [facility] Lymphocytes Auto (Bld) [#/Vo l]on 10-23-2023 Lymphocytes (Bld) [#/Vol] 1.8 10 3/uL 1.2-3.8 [facility] Lymphocytes/100 WBC Auto (Bl d)on 10-23-2023 Lymphocytes/100 WBC (Bld) 28.7 % 20.5-60.0 [facility] MCH Auto (RBC) [Entitic mass ]on 10-23-2023 MCH (RBC) [Entitic mass] 30.0 pg 25.9-34.0 [facility] MCHC Auto (RBC) [Mass/Vol]on 10-23-2023 MCHC (RBC) [Mass/Vol] 31.8 g/dL 29.9-35.2 [facility] MCV Auto (RBC) [Entitic vol] on 10-23-2023 MCV (RBC) [Entitic vol] 94.5 fL High 80.0-94.0 [facility] Monocytes Auto (Bld) [#/Vol] on 10-23-2023 Monocytes (Bld) [#/Vol] 0.3 10 3/uL 0.3-0.8 [facility] Monocytes/100 WBC Auto (Bld) on 10-23-2023 Monocytes/100 WBC (Bld) 5.6 % 1.7-12.0 [facility] Neutrophils Auto (Bld) [#/Vo l]on 10-23-2023 Neutrophils (Bld) [#/Vol] 3.7 10 3/uL 1.4-6.5 [facility] Neutrophils/100 WBC Auto (Bl d)on 10-23-2023 Neutrophils/100 WBC (Bld) 60.6 % 43.0-75.0 [facility] No Panel Informationon 10-22 Eosinophils # (Auto) 0.3 10 3/uL 0.0-0.7 [facility] Immature Granulocyte # (Auto) 0.01 10 3/uL 0.00-0.03 [facility] Platelet mean volume Auto (B ld) [Entitic vol]on 10-23-2023 Platelet mean volume (Bld) [Entitic vol] 9.8 fL 9.5-13.5 [facility] Platelets Auto (Bld) [#/Vol] on 10-23-2023 Platelets (Bld) [#/Vol] 188 10 3/uL 150-450 [facility] RBC Auto (Bld) [#/Vol]on RBC (Bld) [#/Vol] 3.80 10 6/uL Low 4.70-6.10 [facility] Serum or plasma albumin/glob ulin mass ratioon 10-23-2023 Albumin/Globulin [Mass ratio] 0.6 {ratio} [facility] Serum or plasma anion gap de terminationon 10-23-2023 Anion gap [Moles/Vol] 9.3 mmol/L [facility] Basic Metabolic Profon 09-01 Anion gap [Moles/Vol] 6 mmol/L Low 9-16 [facility] Comment on above: Performed By: #### B KAITLYNN LEON #### [employer] [address] [place] [address] Merchandise Presentation Manager: Ramsey Rodriguez MD Calcium [Mass/Vol] 8.7 mg/dL Normal 8.6-10.4 [facility] Comment on above: Performed By: #### B MP, TROPI #### [facility] [address] [place] [phone] Merchandise Presentation Manager: Ramsey Rodriguez MD Chloride [Moles/Vol] 102 mmol/L Normal 98-107 [facility] Comment on above: Performed By: #### B MP, TROPI #### [facility] [address] [place] [id number] Merchandise Presentation Manager: Ramsey Rodriguez MD CO2 [Moles/Vol] 32 mmol/L High 20-31 [facility] Comment on above: Performed By: #### B EDWARD, TROPI #### [facility] [address] [place] [phone] Merchandise Presentation Manager: Ramsey Rodriguez MD Creatinine [Mass/Vol] 0.5 mg/dL Low 0.70-1.20 [facility] Comment on above: Performed By: #### B EDWARD, TROPI #### [address] [address] Merchandise Presentation Manager: Ramsey Rodriguez MD GFR/1.73 sq M.predicted among non-blacks MDRD (S/P/Bld) [Vol rate/Area] mL/min/{1.73_m2} Normal >60 [facility] Comment on above: Result Comment: [...] Performed By: #### B MP, TROPI #### [facility] [address] [place] [id number] Merchandise Presentation Manager: Ramsey Rodriguez MD Glucose [Mass/Vol] 93 mg/dL Normal 74-99 [facility] Comment on above: Performed By: #### B EDWARD, TROPI #### [facility] [address] [place] [phone] Merchandise Presentation Manager: Ramsey Rodriguez MD Potassium [Moles/Vol] 3.7 mmol/L Normal 3.7-5.3 [facility] Comment on above: Performed By: #### B EDWARD TROPI #### [facility] [address] [place] [id number] Merchandise Presentation Manager: Ramsey Rodriguez MD Sodium [Moles/Vol] 140 mmol/L Normal 136-145 [facility] Comment on above: Performed By: #### B EDWARD TROPI #### [facility] [address] [place] [id number] Merchandise Presentation Manager: Ramsey Rodriguez MD Urea nitrogen [Mass/Vol] 14 mg/dL Normal 8-23 [facility] Comment on above: Performed By: #### B EDWARD TROPI #### [facility] [address] [place] [phone] Merchandise Presentation Manager: Ramsey Rodriguez MD CBC with Diffon 09-02-2023 Abs. Basophil 0.03 k/uL Normal 0.00-0.20 [facility] Comment on above: Performed By: #### B EDWARD TROPI #### [facility] [address] [place] [phone] Merchandise Presentation Manager: Ramsey Rodriguez MD Abs.Imm.Granulocyte 0.04 k/uL Normal 0.00-0.30 [facility] Comment on above: Performed By: #### B EDWARD TROPI #### [facility] [address] [place] [phone] Merchandise Presentation Manager: Ramsey Rodriguez MD Abs.Neutrophil (Seg) 4.12 k/uL Normal 1.50-8.10 [facility] Comment on above: Performed By: #### B EDWARD TROPI #### [facility] [address] [place] [phone] Merchandise Presentation Manager: Ramsey Rodriguez MD Basophils/100 WBC (Bld) 1 % Normal 0-2 [facility] Comment on above: Performed By: #### B MP, TROPI #### [facility] [place] [address] Merchandise Presentation Manager: Ramsey Rodriguez MD Eosinophils (Bld) [#/Vol] 0.34 10*3/uL Normal 0.00-0.44 [facility] Comment on above: Performed By: #### B MP, TROPI #### [facility] [address] [place] [id number] Merchandise Presentation Manager: Ramsey Rodriguez MD Eosinophils/100 WBC (Bld) 6 % High 1-4 [facility] Comment on above: Performed By: #### B EDWARD, TROPI #### [facility] [address] [place] [phone] Merchandise Presentation Manager: Ramsey Rodriguez MD Erythrocyte distribution width (RBC) [Ratio] 16.0 % High 11.8-14.4 [facility] Comment on above: Performed By: #### B MP, TROPI #### [facility] [address] [place] [phone] Merchandise Presentation Manager: Ramsey Rodriguez MD Hematocrit (Bld) [Volume fraction] 33.4 % Low 40.7-50.3 [facility] Comment on above: Performed By: #### B MP, TROPI #### [facility] [address] [place] [phone] Merchandise Presentation Manager: Ramsey Rodriguez MD Hemoglobin (Bld) [Mass/Vol] 10.6 g/dL Low 13.0-17.0 [facility] Comment on above: Performed By: #### B MP, TROPI #### [facility] [address] [place] [id number] Merchandise Presentation Manager: Ramsey Rodriguez MD Immature granulocytes/100 WBC (Bld) 1 % High 0 [facility] Comment on above: Performed By: #### B EDWARD, TROPI #### [address] [address] Merchandise Presentation Manager: Ramsey Rodriguez MD Lymphocytes (Bld) [#/Vol] 0.96 10*3/uL Low 1.10-3.70 [facility] Comment on above: Performed By: #### B EDWARD, TROPI #### [address] [address] Merchandise Presentation Manager: Ramsey Rodriguez MD Lymphocytes/100 WBC (Bld) 17 % Low 24-43 [facility] Comment on above: Performed By: #### B EDWARD, TROPI #### [address] [address] Merchandise Presentation Manager: Ramsey Rodriguez MD MCH (RBC) [Entitic mass] 30.5 pg Normal 25.2-33.5 [facility] Comment on above: Performed By: #### B EDWARD, TROPI #### [address] [address] [employer]ch[employer]ise Presentation Manager: Ramsey Rodriguez MD MCHC (RBC) [Mass/Vol] 31.7 g/dL Normal 28.4-34.8 [facility] Comment on above: Performed By: #### B EDWARD, TROPI #### [facility] [address] [place] [address] Merchandise Presentation Manager: Ramsey Rodriguez MD MCV (RBC) [Entitic vol] 96.0 fL Normal 82.6-102.9 [facility] Comment on above: Performed By: #### B EDWARD, TROPI #### [facility] [address] [place] [address] [employer]ch[employer]ise Presentation Manager: Ramsey Rodriguez MD Monocytes (Bld) [#/Vol] 0.33 10*3/uL Normal 0.10-1.20 [facility] Comment on above: Performed By: #### B EDWARD, TROPI #### [address] [address] Merchandise Presentation Manager: Ramsey Rodriguez MD Monocytes/100 WBC (Bld) 6 % Normal 3-12 [facility] Comment on above: Performed By: #### B EDWARD, TROPI #### [facility] [address] [place] [address] [employer]ch[employer]ise Presentation Manager: Ramsey Rodriguez MD Neutrophil (Seg) 69 % High 36-65 [facility] Comment on above: Performed By: #### B EDWARD, TROPI #### [facility] [address] [place] [address] Merch[employer]ise Presentation Manager: Ramsey Rodriguez MD NRBC Automated 0.0 per 100 WBC Normal 0.0 [facility] Comment on above: Performed By: #### B EDWARD, TROPI #### [facility] [address] [place] [address] [employer]ch[employer]ise Presentation Manager: Ramsey Rodriguez MD Platelet mean volume (Bld) [Entitic vol] 10.0 fL Normal 8.1-13.5 [facility] Comment on above: Performed By: #### B EDWARD TROPI #### [address] [address] Merchandise Presentation Manager: Ramsey Rodriguez MD Platelets (Bld) [#/Vol] 190 10*3/uL Normal 138-453 [facility] Comment on above: Performed By: #### B EDWARD, TROPI #### [facility] [address] [place] [address] [employer]ise Presentation Manager: Ramsey Rodriguez MD RBC (Bld) [#/Vol] 3.48 10*6/uL Low 4.21-5.77 [facility] Comment on above: Performed By: #### B MP, TROPI #### [address] [place] [address] Merchandise Presentation Manager: Ramsey Rodriguez MD RBC morphology finding Nom (Bld) ANISOCYTOSIS PRESENT Normal [facility] Comment on above: Performed By: #### B MP, TROPI #### [address] [address] [employer]ch[employer]ise Presentation Manager: Ramsey Rodriguez MD WBC (Bld) [#/Vol] 5.8 10*3/uL Normal 3.5-11.3 [facility] Comment on above: Performed By: #### B EDWARD, TROPI #### [address] [address] Merchandise Presentation Manager: Ramsey Rodriguez MD Heparin Anti-Xaon 09-02-2023 Heparin Anti-Xa <0.10 Normal [facility] Comment on above: Performed By: #### B EDWARD, TROPI #### [address] [address] Merchandise Presentation Manager: Ramsey Rodriguez MD Basic Metabolic Profon 08-31 Anion gap [Moles/Vol] 7 mmol/L Low 9-16 [facility] Comment on above: Performed By: #### B MP, CDP, HEPXA #### [facility] [address] [place] [address] Merch[employer]ise Presentation Manager: Ramsey Rodriguez MD Calcium [Mass/Vol] 8.6 mg/dL Normal 8.6-10.4 [facility] Comment on above: Performed By: #### B MP, CDP, HEPXA #### [facility] [address] [place] [address] [employer]ch[employer]ise Presentation Manager: Ramsey Rodriguez MD Chloride [Moles/Vol] 102 mmol/L Normal 98-107 [facility] Comment on above: Performed By: #### B MP, CDP, HEPXA #### [facility] [address] [place] [address] [employer]ch[employer]ise Presentation Manager: Ramsey Rodriguez MD CO2 [Moles/Vol] 29 mmol/L Normal 20-31 [facility] Comment on above: Performed By: #### B EDWARD CDP, HEPXA #### [employer] [address] [place] [address] Merchandise Presentation Manager: Ramsey Rodriguez MD Creatinine [Mass/Vol] 0.6 mg/dL Low 0.70-1.20 [facility] Comment on above: Performed By: #### B EDWARD CDP, HEPXA #### [facility] [address] [place] [address] [employer]ch[employer]ise Presentation Manager: Ramsey Rodriguez MD GFR/1.73 sq M.predicted among non-blacks MDRD (S/P/Bld) [Vol rate/Area] mL/min/{1.73_m2} Normal >60 [facility] Comment on above: Result Comment: [...] By: #### B FABIANO LEON, HEPXA #### [facility] [address] [place] [address] Merchandise Presentation Manager: Ramsey Rodriguez MD Glucose [Mass/Vol] 98 mg/dL Normal 74-99 [facility] Comment on above: Performed By: #### B EDWARD CDP, HEPXA #### [employer] [address] [place] [address] Merchandise Presentation Manager: Ramsey Rodriguez MD Potassium [Moles/Vol] 4.0 mmol/L Normal 3.7-5.3 [facility] Comment on above: Performed By: #### B EDWARD, CDP, HEPXA #### [address] [address] [employer]ch[employer]ise Presentation Manager: Ramsey Rodriguez MD Sodium [Moles/Vol] 138 mmol/L Normal 136-145 [facility] Comment on above: Performed By: #### B MP, CDP, HEPXA #### [address] [address] Merch[employer]ise Presentation Manager: Ramsey Rodriguez MD Urea nitrogen [Mass/Vol] 15 mg/dL Normal 8-23 [facility] Comment on above: Performed By: #### B MP, CDP, HEPXA #### [address] [address] [employer]ch[employer]ise Presentation Manager: Ramsey Rodriguez MD CBC with Diffon 09-01-2023 Abs. Basophil 0.03 k/uL Normal 0.00-0.20 [facility] Comment on above: Performed By: #### B MP, CDP, HEPXA #### [address] [address] Merch[employer]ise Presentation Manager: Ramsey Rodriguez MD Abs.Imm.Granulocyte <0.03 Normal 0.00-0.30 [facility] Comment on above: Performed By: #### B MP, CDP, HEPXA #### [address] [address] [employer]ch[employer]ise Presentation Manager: Ramsey Rodriguez MD Abs.Neutrophil (Seg) 5.05 k/uL Normal 1.50-8.10 [facility] Comment on above: Performed By: #### B MP, CDP, HEPXA #### [address] [address] Merch[employer]ise Presentation Manager: Ramsey Rodriguez MD Basophils/100 WBC (Bld) 0 % Normal 0-2 [facility] Comment on above: Performed By: #### B MP, CDP, HEPXA #### [address] [address] Merch[employer]ise Presentation Manager: Ramsey Rodriguez MD Eosinophils (Bld) [#/Vol] 0.30 10*3/uL Normal 0.00-0.44 [facility] Comment on above: Performed By: #### B MP, CDP, HEPXA #### [address] [address] [employer]ch[employer]ise Presentation Manager: Ramsey Rodriguez MD Eosinophils/100 WBC (Bld) 4 % Normal 1-4 [facility] Comment on above: Performed By: #### B MP, CDP, HEPXA #### [facility] [address] [place] [address] [employer] Presentation Manager: Ramsey Rodriguez MD Erythrocyte distribution width (RBC) [Ratio] 16.0 % High 11.8-14.4 [facility] Comment on above: Performed By: #### B MP, CDP, HEPXA #### [address] [address] [employer]ch[employer]ise Presentation Manager: Ramsey Rodriguez MD Hematocrit (Bld) [Volume fraction] 34.5 % Low 40.7-50.3 [facility] Comment on above: Performed By: #### B MP, CDP, HEPXA #### [address] [address] Merch[employer]ise Presentation Manager: Ramsey Rodriguez MD Hemoglobin (Bld) [Mass/Vol] 10.9 g/dL Low 13.0-17.0 [facility] Comment on above: Performed By: #### B MP, CDP, HEPXA #### [facility] [address] [place] [address] Merch[employer]ise Presentation Manager: Ramsey Rodriguez MD Immature granulocytes/100 WBC (Bld) 0 % Normal 0 [facility] Comment on above: Performed By: #### B MP, CDP, HEPXA #### [facility] [address] [place] [address] [employer] Presentation Manager: Ramsey Rodriguez MD Lymphocytes (Bld) [#/Vol] 2.11 10*3/uL Normal 1.10-3.70 [facility] Comment on above: Performed By: #### B MP, CDP, HEPXA #### [address] [place] [address] [employer]ch[employer]ise Presentation Manager: Ramsey Rodriguez MD Lymphocytes/100 WBC (Bld) 27 % Normal 24-43 [facility] Comment on above: Performed By: #### B MP, CDP, HEPXA #### [address] [address] Merch[employer]ise Presentation Manager: Ramsey Rodriguez MD MCH (RBC) [Entitic mass] 30.9 pg Normal 25.2-33.5 [facility] Comment on above: Performed By: #### B MP, CDP, HEPXA #### [address] [address] Merchandise Presentation Manager: Ramsey Rodriguez MD MCHC (RBC) [Mass/Vol] 31.6 g/dL Normal 28.4-34.8 [facility] Comment on above: Performed By: #### B MP, CDP, HEPXA #### [address] [address] Merch[employer]ise Presentation Manager: Ramsey Rodriguez MD MCV (RBC) [Entitic vol] 97.7 fL Normal 82.6-102.9 [facility] Comment on above: Performed By: #### B MP, CDP, HEPXA #### [address] [place] [address] [employer]ch[employer]ise Presentation Manager: Ramsey Rodriguez MD Monocytes (Bld) [#/Vol] 0.39 10*3/uL Normal 0.10-1.20 [facility] Comment on above: Performed By: #### B MP, CDP, HEPXA #### [address] [address] Merchandise Presentation Manager: Ramsey Rodriguez MD Monocytes/100 WBC (Bld) 5 % Normal 3-12 [facility] Comment on above: Performed By: #### B MP, CDP, HEPXA #### [address] [address] Merch[employer]ise Presentation Manager: Ramsey Rodriguez MD Neutrophil (Seg) 64 % Normal 36-65 [facility] Comment on above: Performed By: #### B MP, CDP, HEPXA #### [address] [address] Merchandise Presentation Manager: Ramsey Rodriguez MD NRBC Automated 0.0 per 100 WBC Normal 0.0 [facility] Comment on above: Performed By: #### B MP, CDP, HEPXA #### [address] [address] Merchandise Presentation Manager: Ramsey Rodriguez MD Platelet mean volume (Bld) [Entitic vol] 10.5 fL Normal 8.1-13.5 [facility] Comment on above: Performed By: #### B MP, CDP, HEPXA #### [address] [address] Merchandise Presentation Manager: Ramsey Rodriguez MD Platelets (Bld) [#/Vol] 188 10*3/uL Normal 138-453 [facility] Comment on above: Performed By: #### B MP, CDP, HEPXA #### [address] [address] Merchandise Presentation Manager: Ramsey Rodriguez MD RBC (Bld) [#/Vol] 3.53 10*6/uL Low 4.21-5.77 [facility] Comment on above: Performed By: #### B MP, CDP, HEPXA #### [address] [address] Merchandise Presentation Manager: Ramsey Rodriguez MD RBC morphology finding Nom (Bld) ANISOCYTOSIS PRESENT Normal [facility] Comment on above: Performed By: #### B MP, CDP, HEPXA #### [address] [address] Merch[employer]ise Presentation Manager: Ramsey Rodriguez MD WBC (Bld) [#/Vol] 7.9 10*3/uL Normal 3.5-11.3 [facility] Comment on above: Performed By: #### B MP, CDP, HEPXA #### [address] [address] Merch[employer]ise Presentation Manager: Ramsey Rodriguez MD Heparin Anti-Xaon 09-01-2023 Heparin Anti-Xa 0.43 IU/L Normal [facility] Comment on above: Performed By: #### B MP, CDP, HEPXA #### [address] [address] Merchandise Presentation Manager: Ramsey Rodriguez MD Basic Metabolic Profon 08-30 Anion gap [Moles/Vol] 8 mmol/L Low 9-16 [facility] Comment on above: Performed By: #### B MP, CDP, HEPXA #### [facility] [address] [place] [address] Merchandise Presentation Manager: Ramsey Rodriguez MD Calcium [Mass/Vol] 8.2 mg/dL Low 8.6-10.4 [facility] Comment on above: Performed By: #### B MP, CDP, HEPXA #### [facility] [address] [place] [address] Merch[employer]ise Presentation Manager: Ramsey Rodriguez MD Chloride [Moles/Vol] 103 mmol/L Normal 98-107 [facility] Comment on above: Performed By: #### B MP, CDP, HEPXA #### [facility] [address] [place] [address] Merchandise Presentation Manager: Ramsey Rodriguez MD CO2 [Moles/Vol] 28 mmol/L Normal 20-31 [facility] Comment on above: Performed By: #### B FABIANO LEON, HEPXA #### [facility] [place] [address] Merchandise Presentation Manager: Ramsey Rodriguez MD Creatinine [Mass/Vol] 0.6 mg/dL Low 0.70-1.20 [facility] Comment on above: Performed By: #### B FABIANO LEON, HEPXA #### [facility] [address] [place] [address] Merch[employer]ise Presentation Manager: Ramsey Rodriguez MD GFR/1.73 sq M.predicted among non-blacks MDRD (S/P/Bld) [Vol rate/Area] mL/min/{1.73_m2} Normal >60 [facility] Comment on above: Result Comment: [...] By: #### B FABIANO LEON, HEPXA #### [facility] [address] [place] [address] Merch[employer]ise Presentation Manager: Ramsey Rodriguez MD Glucose [Mass/Vol] 104 mg/dL High 74-99 [facility] Comment on above: Performed By: #### B FABIANO LEON, HEPXA #### [facility] [address] [place] [address] Merchandise Presentation Manager: Ramsey Rodriguez MD Potassium [Moles/Vol] 3.5 mmol/L Low 3.7-5.3 [facility] Comment on above: Performed By: #### B EDWARD CDP, HEPXA #### [facility] [address] [place] [address] Merchandise Presentation Manager: Ramsey Rodriguez MD Sodium [Moles/Vol] 139 mmol/L Normal 136-145 [facility] Comment on above: Performed By: #### B MP, CDP, HEPXA #### [place] [address] [employer]ch[employer]ise Presentation Manager: Ramsey Rodriguez MD Urea nitrogen [Mass/Vol] 17 mg/dL Normal 8-23 [facility] Comment on above: Performed By: #### B MP, CDP, HEPXA #### [place] [address] Merch[employer]ise Presentation Manager: Ramsey Rodriguez MD CBC with Diffon 08-31-2023 Abs. Basophil <0.03 Normal 0.00-0.20 [facility] Comment on above: Performed By: #### T ROPI #### [place] [address] Merchandise Presentation Manager: Ramsey Rodriguez MD Abs.Imm.Granulocyte 0.03 k/uL Normal 0.00-0.30 [facility] Comment on above: Performed By: #### T ROPI #### [place] [address] Merchandise Presentation Manager: Ramsey Rodriguez MD Abs.Neutrophil (Seg) 4.38 k/uL Normal 1.50-8.10 [facility] Comment on above: Performed By: #### T ROPI #### [place] [address] Merch[employer]ise Presentation Manager: Ramsey Rodriguez MD Basophils/100 WBC (Bld) 0 % Normal 0-2 [facility] Comment on above: Performed By: #### T ROPI #### [place] [address] Merch[employer]ise Presentation Manager: Ramsey Rodriguez MD Eosinophils (Bld) [#/Vol] 0.21 10*3/uL Normal 0.00-0.44 [facility] Comment on above: Performed By: #### T ROPI #### [address] [address] Merchandise Presentation Manager: Ramsey Rodriguez MD Eosinophils/100 WBC (Bld) 3 % Normal 1-4 [facility] Comment on above: Performed By: #### T ROPI #### [address] [address] Merchandise Presentation Manager: Ramsey Rodriguez MD Erythrocyte distribution width (RBC) [Ratio] 15.9 % High 11.8-14.4 [facility] Comment on above: Performed By: #### T ROPI #### [address] [address] Merch[employer]ise Presentation Manager: Ramsey Rodriguez MD Hematocrit (Bld) [Volume fraction] 33.3 % Low 40.7-50.3 [facility] Comment on above: Performed By: #### T ROPI #### [address] [address] Merchandise Presentation Manager: Ramsey Rodriguez MD Hemoglobin (Bld) [Mass/Vol] 10.4 g/dL Low 13.0-17.0 [facility] Comment on above: Performed By: #### T ROPI #### [address] [address] Merchandise Presentation Manager: Ramsey Rodriguez MD Immature granulocytes/100 WBC (Bld) 1 % High 0 [facility] Comment on above: Performed By: #### T ROPI #### [address] [address] Merch[employer]ise Presentation Manager: Ramsey Rodriguez MD Lymphocytes (Bld) [#/Vol] 1.31 10*3/uL Normal 1.10-3.70 [facility] Comment on above: Performed By: #### T ROPI #### [address] [address] Merchandise Presentation Manager: Ramsey Rodriguez MD Lymphocytes/100 WBC (Bld) 21 % Low 24-43 [facility] Comment on above: Performed By: #### T ROPI #### [address] [address] Merchandise Presentation Manager: Ramsey Rodriguez MD MCH (RBC) [Entitic mass] 30.9 pg Normal 25.2-33.5 [facility] Comment on above: Performed By: #### T ROPI #### [place] [address] [employer]ch[employer]ise Presentation Manager: Ramsey Rodriguez MD MCHC (RBC) [Mass/Vol] 31.2 g/dL Normal 28.4-34.8 [facility] Comment on above: Performed By: #### T ROPI #### [place] [address] Merchandise Presentation Manager: Ramsey Rodriguez MD MCV (RBC) [Entitic vol] 98.8 fL Normal 82.6-102.9 [facility] Comment on above: Performed By: #### T ROPI #### [place] [address] [employer]ch[employer]ise Presentation Manager: Ramsey Rodriguez MD Monocytes (Bld) [#/Vol] 0.31 10*3/uL Normal 0.10-1.20 [facility] Comment on above: Performed By: #### T ROPI #### [place] [address] Merchandise Presentation Manager: Ramsey Rodriguez MD Monocytes/100 WBC (Bld) 5 % Normal 3-12 [facility] Comment on above: Performed By: #### T ROPI #### [address] [address] Merchandise Presentation Manager: Ramsey Rodriguez MD Neutrophil (Seg) 70 % High 36-65 [facility] Comment on above: Performed By: #### T ROPI #### [address] [address] Merchandise Presentation Manager: Ramsey Rodriguez MD NRBC Automated 0.0 per 100 WBC Normal 0.0 [facility] Comment on above: Performed By: #### T ROPI #### [address] [address] Merchandise Presentation Manager: Ramsey Rodriguez MD Platelet mean volume (Bld) [Entitic vol] 10.4 fL Normal 8.1-13.5 [facility] Comment on above: Performed By: #### T ROPI #### [address] [address] Merchandise Presentation Manager: Ramsey Rodriguez MD Platelets (Bld) [#/Vol] 160 10*3/uL Normal 138-453 [facility] Comment on above: Performed By: #### T ROPI #### [address] [address] Merchandise Presentation Manager: Ramsey Rodriguez MD RBC (Bld) [#/Vol] 3.37 10*6/uL Low 4.21-5.77 [facility] Comment on above: Performed By: #### T ROPI #### [address] [address] Merchandise Presentation Manager: Ramsey Rodriguez MD RBC morphology finding Nom (Bld) ANISOCYTOSIS PRESENT Normal [facility] Comment on above: Performed By: #### T ROPI #### [address] [address] Merch[employer]ise Presentation Manager: Ramsey Rodriguez MD WBC (Bld) [#/Vol] 6.3 10*3/uL Normal 3.5-11.3 [facility] Comment on above: Performed By: #### T ROPI #### [address] [address] Merchandise Presentation Manager: Ramsey Rodriguez MD Heparin Anti-Xaon 08-31-2023 Heparin Anti-Xa 0.39 IU/L Normal [facility] Comment on above: Performed By: #### H EPXA, CBC, PTT, PT #### [address] [address] [employer] Presentation Manager: Ramsey Rodriguez MD Basic Metabolic Profon 08-29 Anion gap [Moles/Vol] 7 mmol/L Low 9-16 [facility] Comment on above: Performed By: #### B MP, CDP, HEPXA #### [address] [address] Merch[employer]ise Presentation Manager: Ramsey Rodriguez MD Calcium [Mass/Vol] 8.2 mg/dL Low 8.6-10.4 [facility] Comment on above: Performed By: #### B MP, CDP, HEPXA #### [address] [address] Merch[employer]ise Presentation Manager: Ramsey Rodirguez MD Chloride [Moles/Vol] 104 mmol/L Normal 98-107 [facility] Comment on above: Performed By: #### B MP, CDP, HEPXA #### [facility] [address] [place] [address] Merch[employer]ise Presentation Manager: Ramsey Rodriguez MD CO2 [Moles/Vol] 29 mmol/L Normal 20-31 [facility] Comment on above: Performed By: #### B MP, CDP, HEPXA #### [facility] [address] [place] [address] [employer]ch[employer]ise Presentation Manager: Ramsey Rodriguez MD Creatinine [Mass/Vol] 0.7 mg/dL Normal 0.70-1.20 [facility] Comment on above: Performed By: #### B MP, CDP, HEPXA #### [facility] [address] [place] [address] [employer] Presentation Manager: Ramsey Rodriguez MD GFR/1.73 sq M.predicted among non-blacks MDRD (S/P/Bld) [Vol rate/Area] mL/min/{1.73_m2} Normal >60 [facility] Comment on above: Result Comment: [...] By: #### B EDWARD CDP, HEPXA #### [facility] [address] [place] [address] Merch[employer]ise Presentation Manager: Ramsey Rodriguez MD Glucose [Mass/Vol] 94 mg/dL Normal 74-99 [facility] Comment on above: Performed By: #### B EDWARD CDP, HEPXA #### [facility] [address] [place] [address] Merch[employer]ise Presentation Manager: Ramsey Rodriguez MD Potassium [Moles/Vol] 3.6 mmol/L Low 3.7-5.3 [facility] Comment on above: Performed By: #### B MP, CDP, HEPXA #### [facility] [address] [place] [address] [employer] Presentation Manager: Ramsey Rodriguez MD Sodium [Moles/Vol] 140 mmol/L Normal 136-145 [facility] Comment on above: Performed By: #### B MP, CDP, HEPXA #### [facility] [address] [place] [address] Merch[employer]ise Presentation Manager: Ramsey Rodriguez MD Urea nitrogen [Mass/Vol] 14 mg/dL Normal 8-23 [facility] Comment on above: Performed By: #### B EDWARD, CDP, HEPXA #### [facility] [address] [place] [address] [employer] Presentation Manager: Ramsey Rodriguez MD CBC with Diffon 08-30-2023 Abs. Basophil <0.03 Normal 0.00-0.20 [facility] Comment on above: Performed By: #### B MP, CDP, HEPXA #### [address] [address] Merch[employer]ise Presentation Manager: Ramsey Rodriguez MD Abs.Imm.Granulocyte 0.03 k/uL Normal 0.00-0.30 [facility] Comment on above: Performed By: #### B MP, CDP, HEPXA #### [address] [address] [employer]ch[employer]ise Presentation Manager: Ramsey Rodriguez MD Abs.Neutrophil (Seg) 3.72 k/uL Normal 1.50-8.10 [facility] Comment on above: Performed By: #### B MP, CDP, HEPXA #### [address] [address] [employer]ch[employer]ise Presentation Manager: Ramsey Rodriguez MD Basophils/100 WBC (Bld) 0 % Normal 0-2 [facility] Comment on above: Performed By: #### B MP, CDP, HEPXA #### [address] [address] [employer]ise Presentation Manager: Ramsey Rodriguez MD Eosinophils (Bld) [#/Vol] 0.22 10*3/uL Normal 0.00-0.44 [facility] Comment on above: Performed By: #### B MP, CDP, HEPXA #### [facility] [address] [place] [address] [employer] Presentation Manager: Ramsey Rodriguez MD Eosinophils/100 WBC (Bld) 4 % Normal 1-4 [facility] Comment on above: Performed By: #### B MP, CDP, HEPXA #### [facility] [address] [place] [address] [employer] Presentation Manager: Ramsey Rodriguez MD Erythrocyte distribution width (RBC) [Ratio] 15.8 % High 11.8-14.4 [facility] Comment on above: Performed By: #### B MP, CDP, HEPXA #### [address] [address] [employer]ch[employer] Presentation Manager: Ramsey Rodriguez MD Hematocrit (Bld) [Volume fraction] 31.1 % Low 40.7-50.3 [facility] Comment on above: Performed By: #### B MP, CDP, HEPXA #### [facility] [address] [place] [address] [employer] Presentation Manager: Ramsey Rodriguez MD Hemoglobin (Bld) [Mass/Vol] 10.1 g/dL Low 13.0-17.0 [facility] Comment on above: Performed By: #### B MP, CDP, HEPXA #### [address] [address] [employer] Presentation Manager: Ramsey Rodriguez MD Immature granulocytes/100 WBC (Bld) 1 % High 0 [facility] Comment on above: Performed By: #### B MP, CDP, HEPXA #### [address] [address] [employer] Presentation Manager: Ramsey Rodriguez MD Lymphocytes (Bld) [#/Vol] 1.25 10*3/uL Normal 1.10-3.70 [facility] Comment on above: Performed By: #### B MP, CDP, HEPXA #### [facility] [address] [place] [address] [employer]ise Presentation Manager: Ramsey Rodriguez MD Lymphocytes/100 WBC (Bld) 22 % Low 24-43 [facility] Comment on above: Performed By: #### B MP, CDP, HEPXA #### [facility] [address] [place] [address] [employer] Presentation Manager: Ramsey Rodriguez MD MCH (RBC) [Entitic mass] 30.6 pg Normal 25.2-33.5 [facility] Comment on above: Performed By: #### B MP, CDP, HEPXA #### [address] [address] [employer]ch[employer] Presentation Manager: Ramsey Rodriguez MD MCHC (RBC) [Mass/Vol] 32.5 g/dL Normal 28.4-34.8 [facility] Comment on above: Performed By: #### B MP, CDP, HEPXA #### [address] [address] [employer]ch[employer] Presentation Manager: Ramsey Rodriguez MD MCV (RBC) [Entitic vol] 94.2 fL Normal 82.6-102.9 [facility] Comment on above: Performed By: #### B MP, CDP, HEPXA #### [address] [address] [employer] Presentation Manager: Ramsey Rodriguez MD Monocytes (Bld) [#/Vol] 0.35 10*3/uL Normal 0.10-1.20 [facility] Comment on above: Performed By: #### B MP, CDP, HEPXA #### [address] [address] [employer] Presentation Manager: Ramsey Rodriguez MD Monocytes/100 WBC (Bld) 6 % Normal 3-12 [facility] Comment on above: Performed By: #### B MP, CDP, HEPXA #### [address] [address] [employer] Presentation Manager: Ramsey Rodriguez MD Neutrophil (Seg) 67 % High 36-65 [facility] Comment on above: Performed By: #### B MP, CDP, HEPXA #### [facility] [address] [place] [address] [employer] Presentation Manager: Ramsey Rodriguez MD NRBC Automated 0.0 per 100 WBC Normal 0.0 [facility] Comment on above: Performed By: #### B MP, CDP, HEPXA #### [address] [address] [employer] Presentation Manager: Ramsey Rodriguez MD Platelet mean volume (Bld) [Entitic vol] 10.2 fL Normal 8.1-13.5 [facility] Comment on above: Performed By: #### B MP, CDP, HEPXA #### [address] [address] [employer] Presentation Manager: Ramsey Rodriguez MD Platelets (Bld) [#/Vol] 158 10*3/uL Normal 138-453 [facility] Comment on above: Performed By: #### B MP, CDP, HEPXA #### [address] [address] [employer] Presentation Manager: Ramsey Rodriguez MD RBC (Bld) [#/Vol] 3.30 10*6/uL Low 4.21-5.77 [facility] Comment on above: Performed By: #### B MP, CDP, HEPXA #### [address] [address] [employer] Presentation Manager: Ramsey Rodriguez MD RBC morphology finding Nom (Bld) ANISOCYTOSIS PRESENT Normal [facility] Comment on above: Performed By: #### B MP, CDP, HEPXA #### [address] [address] [employer] Presentation Manager: Ramsey Rodriguez MD WBC (Bld) [#/Vol] 5.6 10*3/uL Normal 3.5-11.3 [facility] Comment on above: Performed By: #### B MP, CDP, HEPXA #### [address] [address] [employer]ch[employer] Presentation Manager: Ramsey Rodriguez MD Heparin Anti-Xaon 08-30-2023 Heparin Anti-Xa 0.43 IU/L Normal [facility] Comment on above: Performed By: #### H EPXA, CBC, PTT, PT #### [facility] [place] [address] [employer]ch[employer]ise Presentation Manager: Ramsey Rodriguez MD Heparin Anti-Xa 0.42 IU/L Normal [facility] Comment on above: Performed By: #### B MP, CDP, HEPXA #### [facility] [address] [place] [address] Merch[employer]ise Presentation Manager: Ramsey Rodriguez MD Heparin Anti-Xa 0.27 IU/L Normal [facility] Comment on above: Performed By: #### B MP, CDP, HEPXA #### [facility] [address] [place] [address] [employer] Presentation Manager: Ramsey Rodriguez MD Troponinon 08-30-2023 Troponin, High Sens 138 ng/L Critically high 0-22 [facility] Comment on above: Result Comment: High Sensitivity Troponin values cannot be compared with other Troponin methodologies. Previous Alert Value Reported Performed By: #### B EDWARD CDP, HEPXA #### [facility] [address] [place] [address] [employer] Presentation Manager: Ramsey Rodriguez MD Basic Metabolic Profon 08-28 Anion gap [Moles/Vol] 6 mmol/L Low 9-16 [facility] Comment on above: Performed By: #### B EDWARD, CDP, HEPXA #### [facility] [address] [place] [address] [employer]ch[employer] Presentation Manager: Ramsey Rodriguez MD Calcium [Mass/Vol] 8.2 mg/dL Low 8.6-10.4 [facility] Comment on above: Performed By: #### B MP, CDP, HEPXA #### [facility] [address] [place] [address] [employer]ise Presentation Manager: Ramsey Rodriguez MD Chloride [Moles/Vol] 106 mmol/L Normal 98-107 [facility] Comment on above: Performed By: #### B FABIANO LEON, HEPXA #### [facility] [address] [place] [address] Merch[employer]ise Presentation Manager: Ramsey Rodriguez MD CO2 [Moles/Vol] 29 mmol/L Normal 20-31 [facility] Comment on above: Performed By: #### B FABIANO LEON, HEPXA #### [facility] [place] [address] Merch[employer]ise Presentation Manager: Ramsey Rodriguez MD Creatinine [Mass/Vol] 0.6 mg/dL Low 0.70-1.20 [facility] Comment on above: Performed By: #### B FABIANO LEON, HEPXA #### [address] [address] [employer] Presentation Manager: Ramsey Rodriguez MD GFR/1.73 sq M.predicted among non-blacks MDRD (S/P/Bld) [Vol rate/Area] mL/min/{1.73_m2} Normal >60 [facility] Comment on above: Result Comment: [...] By: #### B FABIANO LEON, HEPXA #### [facility] [address] [place] [address] [employer]ise Presentation Manager: Ramsey Rodriguez MD Glucose [Mass/Vol] 85 mg/dL Normal 74-99 [facility] Comment on above: Performed By: #### B FABIANO LEON, HEPXA #### [facility] [address] [place] [address] [employer]ise Presentation Manager: Ramsey Rodriguez MD Potassium [Moles/Vol] 3.9 mmol/L Normal 3.7-5.3 [facility] Comment on above: Performed By: #### B MP, CDP, HEPXA #### [facility] [address] [place] [address] [employer] Presentation Manager: Ramsey Rodriguez MD Sodium [Moles/Vol] 141 mmol/L Normal 136-145 [facility] Comment on above: Performed By: #### B MP, CDP, HEPXA #### [facility] [address] [place] [address] [employer] Presentation Manager: Ramsey Rodriguez MD Urea nitrogen [Mass/Vol] 9 mg/dL Normal 8-23 [facility] Comment on above: Performed By: #### B MP, CDP, HEPXA #### [facility] [address] [place] [address] [employer] Presentation Manager: Ramsey Rodriguez MD CBC with Diffon 08-29-2023 Abs. Basophil <0.03 Normal 0.00-0.20 [facility] Comment on above: Performed By: #### B MP, CDP, HEPXA #### [place] [address] [employer]ise Presentation Manager: Ramsey Rodriguez MD Abs.Imm.Granulocyte <0.03 Normal 0.00-0.30 [facility] Comment on above: Performed By: #### B MP, CDP, HEPXA #### [facility] [address] [place] [address] [employer]ise Presentation Manager: Ramsey Rodriguez MD Abs.Neutrophil (Seg) 3.04 k/uL Normal 1.50-8.10 [facility] Comment on above: Performed By: #### B MP, CDP, HEPXA #### [facility] [address] [place] [address] [employer] Presentation Manager: Ramsey Rodriguez MD Basophils/100 WBC (Bld) 0 % Normal 0-2 [facility] Comment on above: Performed By: #### B MP, CDP, HEPXA #### [facility] [address] [place] [address] [employer] Presentation Manager: Ramsey Rodriguez MD Eosinophils (Bld) [#/Vol] 0.28 10*3/uL Normal 0.00-0.44 [facility] Comment on above: Performed By: #### B MP, CDP, HEPXA #### [address] [address] [employer] Presentation Manager: Ramesy Rodriguez MD Eosinophils/100 WBC (Bld) 6 % High 1-4 [facility] Comment on above: Performed By: #### B MP, CDP, HEPXA #### [address] [address] [employer] Presentation Manager: Ramsey Rodriguze MD Erythrocyte distribution width (RBC) [Ratio] 15.7 % High 11.8-14.4 [facility] Comment on above: Performed By: #### B MP, CDP, HEPXA #### [facility] [address] [place] [address] [employer] Presentation Manager: Ramsey Rodriguez MD Hematocrit (Bld) [Volume fraction] 32.4 % Low 40.7-50.3 [facility] Comment on above: Performed By: #### B MP, CDP, HEPXA #### [address] [address] [employer]ch[employer] Presentation Manager: Ramsey Rodriguez MD Hemoglobin (Bld) [Mass/Vol] 10.2 g/dL Low 13.0-17.0 [facility] Comment on above: Performed By: #### B MP, CDP, HEPXA #### [facility] [address] [place] [address] [employer] Presentation Manager: Ramsey Rodriguez MD Immature granulocytes/100 WBC (Bld) 0 % Normal 0 [facility] Comment on above: Performed By: #### B MP, CDP, HEPXA #### [address] [address] Merch[employer] Presentation Manager: Ramsey Rodriguez MD Lymphocytes (Bld) [#/Vol] 1.36 10*3/uL Normal 1.10-3.70 [facility] Comment on above: Performed By: #### B MP, CDP, HEPXA #### [address] [address] [employer] Presentation Manager: Ramsey Rodriguez MD Lymphocytes/100 WBC (Bld) 27 % Normal 24-43 [facility] Comment on above: Performed By: #### B MP, CDP, HEPXA #### [address] [address] [employer] Presentation Manager: Ramsey Rodriguez MD MCH (RBC) [Entitic mass] 30.8 pg Normal 25.2-33.5 [facility] Comment on above: Performed By: #### B MP, CDP, HEPXA #### [address] [address] Merch[employer] Presentation Manager: Ramsey Rodriguez MD MCHC (RBC) [Mass/Vol] 31.5 g/dL Normal 28.4-34.8 [facility] Comment on above: Performed By: #### B MP, CDP, HEPXA #### [address] [address] [employer] Presentation Manager: Ramsey Rodriguez MD MCV (RBC) [Entitic vol] 97.9 fL Normal 82.6-102.9 [facility] Comment on above: Performed By: #### B MP, CDP, HEPXA #### [address] [address] Merch[employer]ise Presentation Manager: Ramsey Rodriguez MD Monocytes (Bld) [#/Vol] 0.37 10*3/uL Normal 0.10-1.20 [facility] Comment on above: Performed By: #### B MP, CDP, HEPXA #### [address] [place] [address] Merch[employer]ise Presentation Manager: Ramsey Rodriguez MD Monocytes/100 WBC (Bld) 7 % Normal 3-12 [facility] Comment on above: Performed By: #### B MP, CDP, HEPXA #### [address] [address] Merch[employer]ise Presentation Manager: Ramsey Rodriguez MD Neutrophil (Seg) 60 % Normal 36-65 [facility] Comment on above: Performed By: #### B MP, CDP, HEPXA #### [address] [address] [employer] Presentation Manager: Ramsey Rodriguez MD NRBC Automated 0.0 per 100 WBC Normal 0.0 [facility] Comment on above: Performed By: #### B MP, CDP, HEPXA #### [address] [address] Mer[employer] Presentation Manager: Ramsey Rodriguez MD Platelet mean volume (Bld) [Entitic vol] 10.4 fL Normal 8.1-13.5 [facility] Comment on above: Performed By: #### B MP, CDP, HEPXA #### [address] [address] Merch[employer]ise Presentation Manager: Ramsey Rodriguez MD Platelets (Bld) [#/Vol] 144 10*3/uL Normal 138-453 [facility] Comment on above: Performed By: #### B MP, CDP, HEPXA #### [facility] [address] [place] [address] [employer] Presentation Manager: Ramsey Rodriguez MD RBC (Bld) [#/Vol] 3.31 10*6/uL Low 4.21-5.77 [facility] Comment on above: Performed By: #### B MP, CDP, HEPXA #### [address] [address] [employer] Presentation Manager: Ramsey Rodriguez MD RBC morphology finding Nom (Bld) ANISOCYTOSIS PRESENT Normal [facility] Comment on above: Performed By: #### B MP, CDP, HEPXA #### [address] [address] [employer] Presentation Manager: Ramsey Rodriguez MD WBC (Bld) [#/Vol] 5.1 10*3/uL Normal 3.5-11.3 [facility] Comment on above: Performed By: #### B MP, CDP, HEPXA #### [address] [address] Merch[employer] Presentation Manager: Ramsey Rodriguez MD Heparin Anti-Xaon 08-29-2023 Heparin Anti-Xa 0.35 IU/L Normal [facility] Comment on above: Performed By: #### H EPXA, CBC, PTT, PT #### [address] [address] [employer] Presentation Manager: Ramsey Rodriguez MD Heparin Anti-Xa 0.38 IU/L Normal [facility] Comment on above: Performed By: #### B MP, TROPI #### [address] [address] Mer[employer]ise Presentation Manager: Ramsey Rodriguez MD Heparin Anti-Xa 0.40 IU/L Normal [facility] Comment on above: Performed By: #### B MP, CDP, HEPXA #### [address] [address] Merch[employer]ise Presentation Manager: Ramsey Rodriguez MD Magnesiumon 08-29-2023 Magnesium [Mass/Vol] 2.1 mg/dL Normal 1.6-2.4 [facility] Comment on above: Performed By: #### B MP, CDP, HEPXA #### [address] [address] Merch[employer]ise Presentation Manager: Ramsey Rodriguez MD Phosphorus, Inorg.on 024 Phosphorus, Inorg. 2.7 mg/dL Normal 2.5-4.5 [facility] Comment on above: Performed By: #### B FABIANO LEON, HEPXA #### [facility] [address] [place] [address] [employer] Presentation Manager: Ramsey Rodriguze MD Troponinon 08-29-2023 Troponin, High Sens 142 ng/L Critically high 0-22 [facility] Comment on above: Result Comment: High Sensitivity Troponin values cannot be compared with other Troponin methodologies. Previous Alert Value Reported Performed By: #### T ROPI #### [address] [address] Merch[employer]ise Presentation Manager: Ramsey Rodriguez MD Troponin, High Sens 159 ng/L Critically high 022 [facility] Comment on above: Result Comment: High Sensitivity Troponin values cannot be compared with other Troponin methodologies. Previous Alert Value Reported Performed By: #### B FABIANO LEON, HEPXA #### [facility] [address] [place] [address] Merch[employer]ise Presentation Manager: Ramsey Rodriguez MD Troponin, High Sens 162 ng/L Critically high 0-22 [facility] Comment on above: Result Comment: High Sensitivity Troponin values cannot be compared with other Troponin methodologies. Previous Alert Value Reported Performed By: #### B FABIANO LEON, HEPXA #### [facility] [address] [place] [address] Merch[employer] Presentation Manager: Ramsey Rodriguez MD APTTon 08-28-2023 aPTT Coag (Bld) [Time] 28.4 s Normal 23.0-36.5 [facility] Comment on above: Result Comment: IV Heparin Therapy Range: 66.0-92.0 sec Performed By: #### H EPXA, CBC, PTT, PT #### [facility] [address] [place] [address] [employer] Presentation Manager: Ramsey Rodriguez MD Basic Metabolic Profon 08-27 Anion gap [Moles/Vol] 8 mmol/L Low 9-16 [facility] Comment on above: Performed By: #### B MP, TROPI #### [facility] [address] [place] [address] Merch[employer]ise Presentation Manager: Ramsey Rodriguez MD Calcium [Mass/Vol] 8.3 mg/dL Low 8.6-10.4 [facility] Comment on above: Performed By: #### B MP, TROPI #### [facility] [address] [place] [address] Merch[employer]ise Presentation Manager: Ramsey Rodriguez MD Chloride [Moles/Vol] 103 mmol/L Normal 98-107 [facility] Comment on above: Performed By: #### B MP, TROPI #### [facility] [address] [place] [address] Merch[employer]ise Presentation Manager: Ramsey Rodriguez MD CO2 [Moles/Vol] 27 mmol/L Normal 20-31 [facility] Comment on above: Performed By: #### B EDWARD, TROPI #### [facility] [address] [place] [address] Merch[employer]ise Presentation Manager: Ramsey Rodriguez MD Creatinine [Mass/Vol] 0.5 mg/dL Low 0.70-1.20 [facility] Comment on above: Performed By: #### B MP, TROPI #### [address] [address] [employer]ch[employer] Presentation Manager: Ramsey Rodriguez MD GFR/1.73 sq M.predicted among non-blacks MDRD (S/P/Bld) [Vol rate/Area] mL/min/{1.73_m2} Normal >60 [facility] Comment on above: Result Comment: [...] Performed By: #### B EDWARD TROPI #### [facility] [address] [place] [address] Merch[employer]ise Presentation Manager: Ramsey Rodriguez MD Glucose [Mass/Vol] 112 mg/dL High 74-99 [facility] Comment on above: Performed By: #### B EDWARD TROPI #### [facility] [address] [place] [address] Merch[employer]ise Presentation Manager: Ramsey Rodriguez MD Potassium [Moles/Vol] 3.7 mmol/L Normal 3.7-5.3 [facility] Comment on above: Performed By: #### B EDWARD TROPI #### [facility] [address] [place] [address] Merch[employer]ise Presentation Manager: Ramsey Rodriguez MD Sodium [Moles/Vol] 138 mmol/L Normal 136-145 [facility] Comment on above: Performed By: #### B EDWARD TROPI #### [facility] [address] [place] [address] Mer[employer]ise Presentation Manager: Ramsey Rodriguez MD Urea nitrogen [Mass/Vol] 9 mg/dL Normal 8-23 [facility] Comment on above: Performed By: #### B EDWARD TROPI #### [facility] [address] [place] [address] Merch[employer]ise Presentation Manager: Ramsey Rodriguez MD Anion gap [Moles/Vol] 8 mmol/L Low 9-16 [facility] Comment on above: Performed By: #### T ROPI #### [facility] [address] [place] [address] Merch[employer]ise Presentation Manager: Ramsey Rodriguez MD Chloride [Moles/Vol] 105 mmol/L Normal 98-107 [facility] Comment on above: Performed By: #### T ROPI #### [facility] [address] [place] [address] Merch[employer]ise Presentation Manager: Ramsey Rodriguez MD Potassium [Moles/Vol] 3.5 mmol/L Low 3.7-5.3 [facility] Comment on above: Performed By: #### T ROPI #### [address] [address] Merch[employer]ise Presentation Manager: Ramsey Rodriguez MD Sodium [Moles/Vol] 139 mmol/L Normal 136-145 [facility] Comment on above: Performed By: #### T ROPI #### [address] [address] Merch[employer]ise Presentation Manager: Ramsey Rodriguez MD Calcium [Mass/Vol] 7.9 mg/dL Low 8.6-10.4 [facility] Comment on above: Performed By: #### T ROPI #### [address] [address] Merch[employer]ise Presentation Manager: Ramsey Rodriguez MD CO2 [Moles/Vol] 26 mmol/L Normal 20-31 [facility] Comment on above: Performed By: #### T ROPI #### [address] [address] Merch[employer]ise Presentation Manager: Ramsey Rodriguez MD Creatinine [Mass/Vol] 0.5 mg/dL Low 0.70-1.20 [facility] Comment on above: Performed By: #### T ROPI #### [address] [address] Merch[employer]ise Presentation Manager: Ramsey Rodriguez MD GFR/1.73 sq M.predicted among non-blacks MDRD (S/P/Bld) [Vol rate/Area] mL/min/{1.73_m2} Normal >60 [facility] Comment on above: Result Comment: [...] secretion. Performed By: #### T ROPI #### [address] [address] Merch[employer]ise Presentation Manager: Ramsey Rodriguez MD Glucose [Mass/Vol] 106 mg/dL High 74-99 [facility] Comment on above: Performed By: #### T ROPI #### [address] [address] Merch[employer]ise Presentation Manager: Ramsey Rodriguez MD Urea nitrogen [Mass/Vol] 10 mg/dL Normal 8-23 [facility] Comment on above: Performed By: #### T MICHELETI #### [address] [address] Merch[employer]ise Presentation Manager: Ramsey Rodriguez MD CBCon 08-28-2023 Erythrocyte distribution width (RBC) [Ratio] 15.6 % High 11.8-14.4 [facility] Comment on above: Performed By: #### H EPXA, CBC, PTT, PT #### [address] [address] [employer] Presentation Manager: Ramsey Rodriguez MD Hematocrit (Bld) [Volume fraction] 34.1 % Low 40.7-50.3 [facility] Comment on above: Performed By: #### H EPXA, CBC, PTT, PT #### [facility] [address] [place] [address] Mer[employer] Presentation Manager: Ramsey Rodriguez MD Hemoglobin (Bld) [Mass/Vol] 10.7 g/dL Low 13.0-17.0 [facility] Comment on above: Performed By: #### H EPXA, CBC, PTT, PT #### [facility] [address] [place] [address] Merch[employer]ise Presentation Manager: Ramsey Rodriguez MD MCH (RBC) [Entitic mass] 30.5 pg Normal 25.2-33.5 [facility] Comment on above: Performed By: #### H EPXA, CBC, PTT, PT #### [address] [address] Mer[employer] Presentation Manager: Ramsey Rodriguez MD MCHC (RBC) [Mass/Vol] 31.4 g/dL Normal 28.4-34.8 [facility] Comment on above: Performed By: #### H EPXA, CBC, PTT, PT #### [address] [address] [employer] Presentation Manager: Ramsey Rodriguez MD MCV (RBC) [Entitic vol] 97.2 fL Normal 82.6-102.9 [facility] Comment on above: Performed By: #### H EPXA, CBC, PTT, PT #### [address] [address] [employer] Presentation Manager: Ramsey Rodriguez MD NRBC Automated 0.0 per 100 WBC Normal 0.0 [facility] Comment on above: Performed By: #### H EPXA, CBC, PTT, PT #### [address] [address] [employer] Presentation Manager: Ramsey Rodriguez MD Platelet mean volume (Bld) [Entitic vol] 10.2 fL Normal 8.1-13.5 [facility] Comment on above: Performed By: #### H EPXA, CBC, PTT, PT #### [address] [address] [employer] Presentation Manager: Ramsey Rodriguez MD Platelets (Bld) [#/Vol] 166 10*3/uL Normal 138-453 [facility] Comment on above: Performed By: #### H EPXA, CBC, PTT, PT #### [address] [address] [employer] Presentation Manager: Ramsey Rodriguez MD RBC (Bld) [#/Vol] 3.51 10*6/uL Low 4.21-5.77 [facility] Comment on above: Performed By: #### H EPXA, CBC, PTT, PT #### [address] [address] [employer] Presentation Manager: Ramsey Rodriguez MD WBC (Bld) [#/Vol] 6.5 10*3/uL Normal 3.5-11.3 [facility] Comment on above: Performed By: #### H EPXA, CBC, PTT, PT #### [address] [address] [employer] Presentation Manager: Ramsey Rodriguez MD CBC with Diffon 08-28-2023 Abs. Basophil <0.03 Normal 0.00-0.20 [facility] Comment on above: Performed By: #### T ROPI #### [place] [address] [employer] Presentation Manager: Ramsey Rodriguez MD Abs.Imm.Granulocyte <0.03 Normal 0.00-0.30 [facility] Comment on above: Performed By: #### T ROPI #### [address] [address] [employer]ise Presentation Manager: Ramsey Rodriguez MD Abs.Neutrophil (Seg) 4.13 k/uL Normal 1.50-8.10 [facility] Comment on above: Performed By: #### T ROPI #### [address] [address] [employer]ise Presentation Manager: Ramsey Rodriguez MD Basophils/100 WBC (Bld) 0 % Normal 0-2 [facility] Comment on above: Performed By: #### T ROPI #### [address] [address] Merchandise Presentation Manager: Ramsey Rodriguez MD Eosinophils (Bld) [#/Vol] 0.27 10*3/uL Normal 0.00-0.44 [facility] Comment on above: Performed By: #### T ROPI #### [place] [address] Merchandise Presentation Manager: Ramsey Rodriguez MD Eosinophils/100 WBC (Bld) 5 % High 1-4 [facility] Comment on above: Performed By: #### T ROPI #### [place] [address] Merchandise Presentation Manager: Ramsey Rodriguez MD Erythrocyte distribution width (RBC) [Ratio] 15.7 % High 11.8-14.4 [facility] Comment on above: Performed By: #### T ROPI #### [place] [address] Merchandise Presentation Manager: Ramsey Rodriguez MD Hematocrit (Bld) [Volume fraction] 34.6 % Low 40.7-50.3 [facility] Comment on above: Performed By: #### T ROPI #### [place] [address] Merchandise Presentation Manager: Ramsey Rodriguez MD Hemoglobin (Bld) [Mass/Vol] 10.5 g/dL Low 13.0-17.0 [facility] Comment on above: Performed By: #### T ROPI #### [place] [address] Merchandise Presentation Manager: Ramsey Rodriguez MD Immature granulocytes/100 WBC (Bld) 0 % Normal 0 [facility] Comment on above: Performed By: #### T ROPI #### [place] [address] Merchandise Presentation Manager: Ramsey Rodriguez MD Lymphocytes (Bld) [#/Vol] 1.01 10*3/uL Low 1.10-3.70 [facility] Comment on above: Performed By: #### T ROPI #### [address] [address] Merchandise Presentation Manager: Ramsey Rodriguez MD Lymphocytes/100 WBC (Bld) 17 % Low 24-43 [facility] Comment on above: Performed By: #### T ROPI #### [address] [address] Merchandise Presentation Manager: Ramsey Rodriguez MD MCH (RBC) [Entitic mass] 30.8 pg Normal 25.2-33.5 [facility] Comment on above: Performed By: #### T ROPI #### [place] [address] Merchandise Presentation Manager: Ramsey Rodriguez MD MCHC (RBC) [Mass/Vol] 30.3 g/dL Normal 28.4-34.8 [facility] Comment on above: Performed By: #### T ROPI #### [address] [address] Merchandise Presentation Manager: Ramsey Rodriguez MD MCV (RBC) [Entitic vol] 101.5 fL Normal 82.6-102.9 [facility] Comment on above: Performed By: #### T ROPI #### [address] [address] Merchandise Presentation Manager: Ramsey Rodriguez MD Monocytes (Bld) [#/Vol] 0.39 10*3/uL Normal 0.10-1.20 [facility] Comment on above: Performed By: #### T ROPI #### [address] [address] Merchandise Presentation Manager: Ramsey Rodriguez MD Monocytes/100 WBC (Bld) 7 % Normal 3-12 [facility] Comment on above: Performed By: #### T ROPI #### [address] [address] Merchandise Presentation Manager: Ramsey Rodriguez MD Neutrophil (Seg) 71 % High 36-65 [facility] Comment on above: Performed By: #### T ROPI #### [address] [address] Merchandise Presentation Manager: Ramsey Rodriguez MD NRBC Automated 0.0 per 100 WBC Normal 0.0 [facility] Comment on above: Performed By: #### T ROPI #### [address] [address] Merchandise Presentation Manager: Ramsey Rodriguez MD Platelet mean volume (Bld) [Entitic vol] 10.3 fL Normal 8.1-13.5 [facility] Comment on above: Performed By: #### T ROPI #### [address] [address] Merchandise Presentation Manager: Ramsey Rodriguez MD Platelets (Bld) [#/Vol] 145 10*3/uL Normal 138-453 [facility] Comment on above: Performed By: #### T ROPI #### [address] [address] Merchandise Presentation Manager: Ramsey Rodriguez MD RBC (Bld) [#/Vol] 3.41 10*6/uL Low 4.21-5.77 [facility] Comment on above: Performed By: #### T ROPI #### [address] [address] Merchandise Presentation Manager: Ramsey Rodriguez MD RBC morphology finding Nom (Bld) ANISOCYTOSIS PRESENT Normal [facility] Comment on above: Performed By: #### T ROPI #### [address] [address] Merchandise Presentation Manager: Ramsey Rodriguez MD WBC (Bld) [#/Vol] 5.8 10*3/uL Normal 3.5-11.3 [facility] Comment on above: Performed By: #### T ROPI #### [employer] [address] [place], [place] [id number] Merchandise Presentation Manager: Ramsey Rodriguez MD [place] MODIFIED BARIUM SWALLOW W VIDEOon 08-28-2023 [place] MODIFIED BARIUM SWALLOW W VIDEO EXAMINATION: MODIFIED BARIUM SWALLOW WAS PERFORMED IN CONJUNCTION WITH SPEECH PATHOLOGY SERVICES TECHNIQUE: Under fluoroscopic evaluation cineradiography/videor adiography recordings were performed in conjunction with the speech-language pathologist ([employer]). Various liquid, solid and/or semi-solid barium preparations were used to assess swallowing function. FLUOROSCOPY DOSE AND TYPE: Radiation Exposure Index: DAP [id number], COMPARISON: None HISTORY: ORDERING SYSTEM PROVIDED HISTORY: dysphagia TECHNOLOGIST PROVIDED HISTORY: dysphagia FINDINGS: Thin liquid: Given by teaspoon no laryngeal penetration or aspiration. Given by straw there is trace laryngeal penetration. No aspiration. [place] thick liquid: Given by teaspoon no laryngeal [...] Christiano Cohen MD 08/28/23 Final result Normal [facility] Glucose,Whole Bloodon 2023 Glucose [Mass/Vol] 86 mg/dL Normal 75-110 [facility] Glucose [Mass/Vol] 87 mg/dL Normal 75-110 [facility] Glucose [Mass/Vol] 105 mg/dL Normal 75-110 [facility] Heparin Anti-Xaon 08-28-2023 Heparin Anti-Xa 0.22 IU/L Normal [facility] Comment on above: Performed By: #### H EPXA, CBC, PTT, PT #### [employer] [address] [place], [place] [id number] Merchandise Presentation Manager: Ramsey Rodriguez MD Magnesiumon 08-28-2023 Magnesium [Mass/Vol] 2.4 mg/dL Normal 1.6-2.4 [facility] Comment on above: Performed By: #### H EPXA, CBC, PTT, PT #### [facility] [address] [place] [address] Merchandise Presentation Manager: Ramsey Rodriguez MD Magnesium [Mass/Vol] 1.7 mg/dL Normal 1.6-2.4 [facility] Comment on above: Performed By: #### T ROPI #### [facility] [address] [place] [address] Merchandise Presentation Manager: Ramsey Rodriguez MD PTon 08-28-2023 INR Coag (PPP) [Relative time] 1.0 {INR} Normal [facility] Comment on above: Result Comment: Therapeutic Range: Moderate Anticoagulant Intensity: INR = 2.0-3.0 High Anticoagulant Intensity: INR = 2.5-3.5 Performed By: #### H EPXA, CBC, PTT, PT #### [facility] [address] [place] [address] Merchandise Presentation Manager: Ramsey Rodriguez MD PT Coag (PPP) [Time] 13.5 s Normal 11.7-14.9 [facility] Comment on above: Performed By: #### H EPXA, CBC, PTT, PT #### [facility] [address] [place] [address] Merchandise Presentation Manager: Ramsey Rodriguez MD Phosphorus, Inorg.on 024 Phosphorus, Inorg. 2.2 mg/dL Low 2.5-4.5 [facility] Comment on above: Performed By: #### H EPXA, CBC, PTT, PT #### [facility] [address] [place] [address] Merchandise Presentation Manager: Ramsey Rodriguez MD Phosphorus, Inorg. 2.4 mg/dL Low 2.5-4.5 [facility] Comment on above: Performed By: #### T ROPI #### [facility] [address] [place] [address] Merchandise Presentation Manager: Ramsey Rodriguez MD Troponinon 08-28-2023 Troponin, High Sens 142 ng/L Critically high 0-22 [facility] Comment on above: Result Comment: High Sensitivity Troponin values cannot be compared with other Troponin methodologies. Previous Alert Value Reported Performed By: #### H EPXA, CBC, PTT, PT #### [facility] [place] [address] Merchandise Presentation Manager: Ramsey Rodriguez MD Troponin, High Sens 138 ng/L Critically high 0-22 [facility] Comment on above: Result Comment: High Sensitivity Troponin values cannot be compared with other Troponin methodologies. Performed By: #### B MP, TROPI #### [address] [phone] Merchandise Presentation Manager: Ramsey Rodriguez MD XR CHEST PORTABLEon 08-28-19 [...] Rafat Dumont MD 08/28/23 Final result Normal [facility] Basic Metabolic Profon 08-26 Anion gap [Moles/Vol] 7 mmol/L Low 9-16 [facility] Comment on above: Performed By: #### H EPXA, CBC, PTT, PT #### [facility] [address] [place], [place] [id number] Merchandise Presentation Manager: Ramsey Rodriguez MD Calcium [Mass/Vol] 8.0 mg/dL Low 8.6-10.4 [facility] Comment on above: Performed By: #### H EPXA, CBC, PTT, PT #### [facility] [address] [place] [address] Merchandise Presentation Manager: Ramsey Rodriguez MD Chloride [Moles/Vol] 107 mmol/L Normal 98-107 [facility] Comment on above: Performed By: #### H EPXA, CBC, PTT, PT #### [facility] [address] [place] [address] Merchandise Presentation Manager: Ramsey Rodriguez MD CO2 [Moles/Vol] 26 mmol/L Normal 20-31 [facility] Comment on above: Performed By: #### H EPXA, CBC, PTT, PT #### [facility] [address] [place] [address] Merchandise Presentation Manager: Ramsey Rodriguez MD Creatinine [Mass/Vol] 0.6 mg/dL Low 0.70-1.20 [facility] Comment on above: Performed By: #### H EPXA, CBC, PTT, PT #### [facility] [address] [place] [address] Merchandise Presentation Manager: Ramsey Rodriguez MD GFR/1.73 sq M.predicted among non-blacks MDRD (S/P/Bld) [Vol rate/Area] mL/min/{1.73_m2} Normal >60 [facility] Comment on above: Result Comment: [...] #### H EPXA, CBC, PTT, PT #### [facility] [address] [place] [address] Merchandise Presentation Manager: Ramsey Rodriguez MD Glucose [Mass/Vol] 104 mg/dL High 74-99 [facility] Comment on above: Performed By: #### H EPXA, CBC, PTT, PT #### [facility] [address] [place] [address] Merchandise Presentation Manager: Ramsey Rodriguez MD Potassium [Moles/Vol] 3.6 mmol/L Low 3.7-5.3 [facility] Comment on above: Performed By: #### H EPXA, CBC, PTT, PT #### [facility] [address] [place] [address] Merchandise Presentation Manager: Ramsey Rodriguez MD Sodium [Moles/Vol] 140 mmol/L Normal 136-145 [facility] Comment on above: Performed By: #### H EPXA, CBC, PTT, PT #### [facility] [address] [place] [address] Merchandise Presentation Manager: Ramsey Rodriguez MD Urea nitrogen [Mass/Vol] 14 mg/dL Normal 8-23 [facility] Comment on above: Performed By: #### H EPXA, CBC, PTT, PT #### [facility] [address] [place] [address] Merchandise Presentation Manager: Ramsey Rodriguez MD CBC with Diffon 08-27-2023 Abs. Basophil <0.03 Normal 0.00-0.20 [facility] Comment on above: Performed By: #### H EPXA, CBC, PTT, PT #### [facility] [address] [place] [address] Merchandise Presentation Manager: Ramsey Rodriguez MD Abs.Imm.Granulocyte <0.03 Normal 0.00-0.30 [facility] Comment on above: Performed By: #### H EPXA, CBC, PTT, PT #### [facility] [address] [place] [address] Merchandise Presentation Manager: Ramsey Rodriguez MD Abs.Neutrophil (Seg) 3.93 k/uL Normal 1.50-8.10 [facility] Comment on above: Performed By: #### H EPXA, CBC, PTT, PT #### [facility] [address] [place] [address] Merchandise Presentation Manager: Ramsey Rodriguez MD Basophils/100 WBC (Bld) 0 % Normal 0-2 [facility] Comment on above: Performed By: #### H EPXA, CBC, PTT, PT #### [facility] [address] [place] [address] Merchandise Presentation Manager: Ramsey Rodriguez MD Eosinophils (Bld) [#/Vol] 0.25 10*3/uL Normal 0.00-0.44 [facility] Comment on above: Performed By: #### H EPXA, CBC, PTT, PT #### [address] [address] Merchandise Presentation Manager: Rasmey Rodriguez MD Eosinophils/100 WBC (Bld) 5 % High 1-4 [facility] Comment on above: Performed By: #### H EPXA, CBC, PTT, PT #### [facility] [address] [place] [address] Merchandise Presentation Manager: Ramsey Rodriguez MD Erythrocyte distribution width (RBC) [Ratio] 15.8 % High 11.8-14.4 [facility] Comment on above: Performed By: #### H EPXA, CBC, PTT, PT #### [facility] [address] [place] [address] Merchandise Presentation Manager: Ramsey Rodriguez MD Hematocrit (Bld) [Volume fraction] 33.2 % Low 40.7-50.3 [facility] Comment on above: Performed By: #### H EPXA, CBC, PTT, PT #### [facility] [address] [place] [address] Merchandise Presentation Manager: Ramsey Rodriguez MD Hemoglobin (Bld) [Mass/Vol] 10.3 g/dL Low 13.0-17.0 [facility] Comment on above: Performed By: #### H EPXA, CBC, PTT, PT #### [facility] [address] [place] [address] Merchandise Presentation Manager: Ramsey Rodriguez MD Immature granulocytes/100 WBC (Bld) 0 % Normal 0 [facility] Comment on above: Performed By: #### H EPXA, CBC, PTT, PT #### [facility] [address] [place] [address] Merchandise Presentation Manager: Ramsey Rodriguez MD Lymphocytes (Bld) [#/Vol] 1.01 10*3/uL Low 1.10-3.70 [facility] Comment on above: Performed By: #### H EPXA, CBC, PTT, PT #### [address] [address] Merchandise Presentation Manager: Ramsey Rodriguez MD Lymphocytes/100 WBC (Bld) 18 % Low 24-43 [facility] Comment on above: Performed By: #### H EPXA, CBC, PTT, PT #### [facility] [address] [place] [address] Merchandise Presentation Manager: Ramsey Rodriguez MD MCH (RBC) [Entitic mass] 30.6 pg Normal 25.2-33.5 [facility] Comment on above: Performed By: #### H EPXA, CBC, PTT, PT #### [facility] [address] [place] [address] Merchandise Presentation Manager: Ramsey Rodriguez MD MCHC (RBC) [Mass/Vol] 31.0 g/dL Normal 28.4-34.8 [facility] Comment on above: Performed By: #### H EPXA, CBC, PTT, PT #### [facility] [address] [place] [address] Merchandise Presentation Manager: Ramsey Rodriguez MD MCV (RBC) [Entitic vol] 98.5 fL Normal 82.6-102.9 [facility] Comment on above: Performed By: #### H EPXA, CBC, PTT, PT #### [address] [address] Merchandise Presentation Manager: Ramsey Rodriguez MD Monocytes (Bld) [#/Vol] 0.33 10*3/uL Normal 0.10-1.20 [facility] Comment on above: Performed By: #### H EPXA, CBC, PTT, PT #### [facility] [address] [place] [address] Merchandise Presentation Manager: Ramsey Rodriguez MD Monocytes/100 WBC (Bld) 6 % Normal 3-12 [facility] Comment on above: Performed By: #### H EPXA, CBC, PTT, PT #### [address] [address] Merchandise Presentation Manager: Ramsey Rodriguez MD Neutrophil (Seg) 71 % High 36-65 [facility] Comment on above: Performed By: #### H EPXA, CBC, PTT, PT #### [facility] [address] [place] [address] Merchandise Presentation Manager: Ramsey Rodriguez MD NRBC Automated 0.0 per 100 WBC Normal 0.0 [facility] Comment on above: Performed By: #### H EPXA, CBC, PTT, PT #### [facility] [address] [place] [address] Merchandise Presentation Manager: Ramsey Rodriguez MD Platelet mean volume (Bld) [Entitic vol] 10.2 fL Normal 8.1-13.5 [facility] Comment on above: Performed By: #### H EPXA, CBC, PTT, PT #### [facility] [address] [place] [address] Merchandise Presentation Manager: Ramsey Rodriguez MD Platelets (Bld) [#/Vol] 136 10*3/uL Low 138-453 [facility] Comment on above: Performed By: #### H EPXA, CBC, PTT, PT #### [facility] [address] [place] [address] Merchandise Presentation Manager: Ramsey Rodriguez MD RBC (Bld) [#/Vol] 3.37 10*6/uL Low 4.21-5.77 [facility] Comment on above: Performed By: #### H EPXA, CBC, PTT, PT #### [facility] [address] [place] [address] Merchandise Presentation Manager: Ramsey Rodriguez MD RBC morphology finding Nom (Bld) ANISOCYTOSIS PRESENT Normal [facility] Comment on above: Performed By: #### H EPXA, CBC, PTT, PT #### [facility] [address] [place] [address] Merchandise Presentation Manager: Ramsey Rodriguez MD WBC (Bld) [#/Vol] 5.6 10*3/uL Normal 3.5-11.3 [facility] Comment on above: Performed By: #### H EPXA, CBC, PTT, PT #### [facility] [address] [place] [address] Merchandise Presentation Manager: Ramsey Rodriguez MD Glucose,Whole Bloodon 2023 Glucose [Mass/Vol] 103 mg/dL Normal 75-110 [facility] Glucose [Mass/Vol] 99 mg/dL Normal 75-110 [facility] Glucose [Mass/Vol] 95 mg/dL Normal 75-110 [facility] Magnesiumon 08-27-2023 Magnesium [Mass/Vol] 2.0 mg/dL Normal 1.6-2.4 [facility] Comment on above: Performed By: #### H EPXA, CBC, PTT, PT #### [address] [address] Merchandise Presentation Manager: Ramsey Rodriguez MD Phosphorus, Inorg.on 024 Phosphorus, Inorg. 2.4 mg/dL Low 2.5-4.5 [facility] Comment on above: Performed By: #### H EPXA, CBC, PTT, PT #### [address] [address] Merchandise Presentation Manager: Ramsey Rodriguez MD Urinalysis, Routineon 2023 Bilirubin, SemiQt,Ur Negative Normal NEG [facility] Comment on above: Performed By: #### B MP, CDP, HEPXA #### [facility] [address] [place] [address] Merchandise Presentation Manager: Ramsey Rodriguez MD Blood, Urine Negative Normal NEG [facility] Comment on above: Performed By: #### B MP, CDP, HEPXA #### [facility] [address] [place] [address] Merchandise Presentation Manager: Ramsey Rodriguez MD Clarity (U) Clear Normal CLEAR [facility] Comment on above: Performed By: #### B MP, CDP, HEPXA #### [facility] [address] [place] [address] Merchandise Presentation Manager: Ramsey Rodriguez MD Color (U) Yellow Normal YEL [facility] Comment on above: Performed By: #### B MP, CDP, HEPXA #### [facility] [address] [place] [address] Merchandise Presentation Manager: Ramsey Rodriguez MD Comment Microscopic exam not performed based on chemical results unless requested in Normal [facility] Comment on above: Result Comment: orig inal order. Performed By: #### B MP, CDP, HEPXA #### [facility] [address] [place] [address] Merchandise Presentation Manager: Ramsey Rodriguez MD Glucose Ql (U) Negative Normal NEG [facility] Comment on above: Performed By: #### B MP, CDP, HEPXA #### [address] [address] Merchandise Presentation Manager: Ramsey Rodriguez MD Ketones Ql (U) Negative Normal NEG [facility] Comment on above: Performed By: #### B MP, CDP, HEPXA #### [address] [address] Merchandise Presentation Manager: Ramsey Rodriguez MD Leukocyte esterase Test strip Ql (U) Negative Normal NEG [facility] Comment on above: Performed By: #### B MP, CDP, HEPXA #### [address] [address] Merchandise Presentation Manager: Ramsey Rodriguez MD Nitrite,Ur Negative Normal NEG [facility] Comment on above: Performed By: #### B MP, CDP, HEPXA #### [address] [address] Merchandise Presentation Manager: Ramsey Rodriguez MD PH,Ur 5.5 Normal 5.0-8.0 [facility] Comment on above: Performed By: #### B MP, CDP, HEPXA #### [address] [address] Merchandise Presentation Manager: Ramsey Rodriguez MD Protein Ql (U) Negative Normal NEG [facility] Comment on above: Performed By: #### B MP, CDP, HEPXA #### [address] [address] Merchandise Presentation Manager: Ramsey Rodriguez MD Spec. Elmer,Ur 1.008 Normal 1.005-1.030 [facility] Comment on above: Performed By: #### B MP, CDP, HEPXA #### [facility] [address] [place] [address] Merchandise Presentation Manager: Ramsey Rodriguez MD Urobilinogen,Ur Normal Normal 0.0-1.0 [facility] Comment on above: Performed By: #### B MP, CDP, HEPXA #### [employer] [address] [place] [address] Merchandise Presentation Manager: Ramsey Rodriguez MD XR CHEST PORTABLEon 08-27-19 [...] Alex Martinez MD 08/27/23 Final result Normal [facility] Arterial Bld Gas,POCon 08-25 Eliazar Test Positive Normal [facility] FIO2 60.0 Normal [facility] HCO3 (Bld) [Moles/Vol] 26.6 mmol/L Normal 21.0-28.0 [facility] O2 Device BIPAP Normal [facility] Oxygen saturation in Blood 99.1 % High 94.0-98.0 [facility] pCO2, Arterial 40.5 mm Hg Normal 35.0-48.0 [facility] pH, Arterial 7.426 Normal 7.350-7.450 [facility] pO2, Arterial 135.5 mm Hg High 83.0-108.0 [facility] Positive Base Excess (calc) 2.1 mmol/L Normal 0.0-3.0 [facility] Site Drawn Right Radial Artery Normal [facility] Basic Metabolic Profon 08-25 Anion gap [Moles/Vol] 5 mmol/L Low 9-16 [facility] Comment on above: Performed By: #### B MP, TROPI #### [employer] [address] [place], [place] [id number] Merchandise Presentation Manager: Ramsey Rodriguez MD Calcium [Mass/Vol] 8.2 mg/dL Low 8.6-10.4 [facility] Comment on above: Performed By: #### B EDWARD, TROPI #### [facility] [address] [place] [address] Merchandise Presentation Manager: Ramsey Rodriguez MD Chloride [Moles/Vol] 107 mmol/L Normal 98-107 [facility] Comment on above: Performed By: #### B MP, TROPI #### [facility] [address] [place] [address] Merchandise Presentation Manager: Ramsey Rodriguez MD CO2 [Moles/Vol] 26 mmol/L Normal 20-31 [facility] Comment on above: Performed By: #### B EDWARD, TROPI #### [address] [address] Merchandise Presentation Manager: Ramsey Rodriguez MD Creatinine [Mass/Vol] 0.6 mg/dL Low 0.70-1.20 [facility] Comment on above: Performed By: #### B EDWARD, TROPI #### [address] [address] Merchandise Presentation Manager: Ramsey Rodriguez MD GFR/1.73 sq M.predicted among non-blacks MDRD (S/P/Bld) [Vol rate/Area] mL/min/{1.73_m2} Normal >60 [facility] [facility] Comment on above: Result Comment: [...] Performed By: #### B MP, TROPI #### [address] [address] [employer]ch[employer]ise Presentation Manager: Ramsey Rodriguez MD Glucose [Mass/Vol] 92 mg/dL Normal 74-99 [facility] Comment on above: Performed By: #### B EDWARD TROPI #### [address] [address] [employer]chandise Presentation Manager: Ramsey Rodriguez MD Potassium [Moles/Vol] 4.2 mmol/L Normal 3.7-5.3 [facility] Comment on above: Performed By: #### B EDWARD TROPI #### [facility] [address] [place] [address] [employer]ch[employer]ise Presentation Manager: Ramsey Rodriguez MD Sodium [Moles/Vol] 138 mmol/L Normal 136-145 [facility] Comment on above: Performed By: #### B EDWRAD TROPI #### [address] [address] [employer]chandise Presentation Manager: Ramsey Rodriguez MD Urea nitrogen [Mass/Vol] 18 mg/dL Normal 8-23 [facility] Comment on above: Performed By: #### B EDWARD TROPI #### [address] [address] [employer]chandise Presentation Manager: Ramsey Rodriguez MD CBC with Diffon 08-26-2023 Abs. Basophil <0.03 Normal 0.00-0.20 [facility] Comment on above: Performed By: #### Nicol LEON TROPI #### [facility] [address] [place] [address] Merchandise Presentation Manager: Ramsey Rodriguez MD Abs.Imm.Granulocyte <0.03 Normal 0.00-0.30 [facility] Comment on above: Performed By: #### B EDWARD TROPI #### [facility] [address] [place] [address] [employer]ch[employer]ise Presentation Manager: Ramsey Rodriguez MD Abs.Neutrophil (Seg) 4.44 k/uL Normal 1.50-8.10 [facility] Comment on above: Performed By: #### B EDWARD, TROPI #### [facility] [address] [place] [address] [employer]ise Presentation Manager: Ramsey Rodriguez MD Basophils/100 WBC (Bld) 0 % Normal 0-2 [facility] Comment on above: Performed By: #### B EDWARD, TROPI #### [facility] [address] [place] [address] [employer] Presentation Manager: Ramsey Rodriguez MD Eosinophils (Bld) [#/Vol] 0.17 10*3/uL Normal 0.00-0.44 [facility] Comment on above: Performed By: #### B EDWARD, TROPI #### [facility] [address] [place] [address] [employer]ise Presentation Manager: Ramsey Rodriguez MD Eosinophils/100 WBC (Bld) 3 % Normal 1-4 [facility] Comment on above: Performed By: #### B EDWARD, TROPI #### [facility] [address] [place] [address] [employer] Presentation Manager: Ramsey Rodriguez MD Erythrocyte distribution width (RBC) [Ratio] 15.7 % High 11.8-14.4 [facility] Comment on above: Performed By: #### B EDWARD, TROPI #### [facility] [address] [place] [address] Merch[employer]ise Presentation Manager: Ramsey Rodriguez MD Hematocrit (Bld) [Volume fraction] 34.0 % Low 40.7-50.3 [facility] Comment on above: Performed By: #### B EDWARD, TROPI #### [facility] [address] [place] [address] Merch[employer]ise Presentation Manager: Ramsey Rodriguez MD Hemoglobin (Bld) [Mass/Vol] 10.8 g/dL Low 13.0-17.0 [facility] Comment on above: Performed By: #### B EDWARD, TROPI #### [address] [address] [employer]ch[employer]ise Presentation Manager: Ramsey Rodriguez MD Immature granulocytes/100 WBC (Bld) 0 % Normal 0 [facility] Comment on above: Performed By: #### B MP, TROPI #### [address] [address] [employer]ch[employer]ise Presentation Manager: Ramsey Rodriguez MD Lymphocytes (Bld) [#/Vol] 1.18 10*3/uL Normal 1.10-3.70 [facility] Comment on above: Performed By: #### B EDWARD, TROPI #### [address] [address] [employer]ch[employer]ise Presentation Manager: Ramsey Rodriguez MD Lymphocytes/100 WBC (Bld) 19 % Low 24-43 [facility] Comment on above: Performed By: #### B EDWARD, TROPI #### [address] [address] [employer]ch[employer]ise Presentation Manager: Ramsey Rodriguez MD MCH (RBC) [Entitic mass] 30.7 pg Normal 25.2-33.5 [facility] Comment on above: Performed By: #### B EDWARD, TROPI #### [address] [address] [employer]ch[employer]ise Presentation Manager: Ramsey Rodriguez MD MCHC (RBC) [Mass/Vol] 31.8 g/dL Normal 28.4-34.8 [facility] Comment on above: Performed By: #### B EDWARD, TROPI #### [address] [address] Merch[employer]ise Presentation Manager: Ramsey Rodriguez MD MCV (RBC) [Entitic vol] 96.6 fL Normal 82.6-102.9 [facility] Comment on above: Performed By: #### B EDWARD, TROPI #### [facility] [address] [place] [address] [employer] Presentation Manager: Ramsey Rodriguez MD Monocytes (Bld) [#/Vol] 0.41 10*3/uL Normal 0.10-1.20 [facility] Comment on above: Performed By: #### B MP, TROPI #### [address] [address] Merch[employer]ise Presentation Manager: Ramsey Rodriguez MD Monocytes/100 WBC (Bld) 7 % Normal 3-12 [facility] Comment on above: Performed By: #### B MP, TROPI #### [address] [address] [employer]ch[employer]ise Presentation Manager: Ramsey Rodriguez MD Neutrophil (Seg) 71 % High 36-65 [facility] Comment on above: Performed By: #### B MP, TROPI #### [address] [address] [employer]ch[employer]ise Presentation Manager: Ramsey Rodriguez MD NRBC Automated 0.0 per 100 WBC Normal 0.0 [facility] Comment on above: Performed By: #### B EDWARD, TROPI #### [address] [address] Merch[employer]ise Presentation Manager: Ramsey Rodriguez MD Platelet mean volume (Bld) [Entitic vol] 9.9 fL Normal 8.1-13.5 [facility] Comment on above: Performed By: #### B MP, TROPI #### [facility] [address] [place] [address] Merch[employer]ise Presentation Manager: Ramsey Rodriguez MD Platelets (Bld) [#/Vol] 143 10*3/uL Normal 138-453 [facility] Comment on above: Performed By: #### B MP, TROPI #### [facility] [address] [place] [address] [employer] Presentation Manager: Ramsey Rodriguez MD RBC (Bld) [#/Vol] 3.52 10*6/uL Low 4.21-5.77 [facility] Comment on above: Performed By: #### B EDWARD TROPI #### [address] [address] [employer]ch[employer]ise Presentation Manager: Ramsey Rodriguez MD RBC morphology finding Nom (Bld) ANISOCYTOSIS PRESENT Normal [facility] Comment on above: Performed By: #### B EDWARD, TROPI #### [address] [address] [employer]ch[employer]ise Presentation Manager: Ramsey Rodriguez MD WBC (Bld) [#/Vol] 6.2 10*3/uL Normal 3.5-11.3 [facility] Comment on above: Performed By: #### B EDWARD TROPI #### [address] [address] [employer]ch[employer]ise Presentation Manager: Ramsey Rodriguez MD Gl Hemostasis TEG w/Lysison 08-26-2023 Fibrinogen, Func TEG 5.4 mm Low 15.0-32.0 [facility] Comment on above: Performed By: #### H EPXA, CBC, PTT, PT #### [address] [address] [employer]ch[employer]ise Presentation Manager: Ramsey Rodriguez MD LY30 (Lysis) TEG 0.0 % Normal 0.0-2.6 [facility] Comment on above: Performed By: #### H EPXA, CBC, PTT, PT #### [address] [address] [employer]ch[employer]ise Presentation Manager: Ramsey Rodriguez MD MA Rapid TEG <40.0 Low 52.0-70 [facility] Comment on above: Performed By: #### H EPXA, CBC, PTT, PT #### [address] [address] [employer]ch[employer]ise Presentation Manager: Ramsey Rodriguez MD R(Reaction Time) TEG >17.0 High 4.6-9.1 [facility] Comment on above: Performed By: #### H EPXA, CBC, PTT, PT #### [address] [id number] Merch[employer]ise Presentation Manager: Ramsey Rodriguez MD Glucose,Whole Bloodon 2023 Glucose [Mass/Vol] 99 mg/dL Normal 75-110 [facility] Glucose [Mass/Vol] 86 mg/dL Normal 75-110 [facility] Glucose [Mass/Vol] 101 mg/dL Normal 75-110 [facility] Glucose [Mass/Vol] 86 mg/dL Normal 75-110 [facility] Magnesiumon 08-26-2023 Magnesium [Mass/Vol] 1.7 mg/dL Normal 1.6-2.4 [facility] Comment on above: Performed By: #### T ROPI #### [address] [id number] Merch[employer]ise Presentation Manager: Ramsey Rodriguez MD PTon 08-26-2023 INR Coag (PPP) [Relative time] 1.1 {INR} Normal [facility] Comment on above: Result Comment: Therapeutic Range: Moderate Anticoagulant Intensity: INR = 2.0-3.0 High Anticoagulant Intensity: INR = 2.5-3.5 Performed By: #### B EDWARD, TROPI #### [address] [address] Merchandise Presentation Manager: Ramsey Rodriguez MD PT Coag (PPP) [Time] 13.7 s Normal 11.7-14.9 [facility] Comment on above: Performed By: #### B EDWARD, TROPI #### [facility] [address] [place] [address] [employer] Presentation Manager: Ramsey Rodriguez MD XR CHEST PORTABLEon 08-26-19 [...] Jordy Michel MD 08/26/23 Final result Normal [facility] Basic Metab w/rfx MGon 08-24 Anion gap [Moles/Vol] 7 mmol/L Low 9-16 [facility] Comment on above: Performed By: #### T ROPI #### [address] [address] Merchandise Presentation Manager: Ramsey Rodriguez MD Calcium [Mass/Vol] 7.8 mg/dL Low 8.6-10.4 [facility] Comment on above: Performed By: #### T ROPI #### [address] [address] Merchandise Presentation Manager: Ramsey Rodriguez MD Chloride [Moles/Vol] 109 mmol/L High 98-107 [facility] Comment on above: Performed By: #### T ROPI #### [address] [address] Merchandise Presentation Manager: Ramsey Rodriguez MD CO2 [Moles/Vol] 21 mmol/L Normal 20-31 [facility] Comment on above: Performed By: #### T ROPI #### [facility] [address] [place] [address] Merch[employer]ise Presentation Manager: Ramsey Rodriguez MD Creatinine [Mass/Vol] 0.5 mg/dL Low 0.70-1.20 [facility] Comment on above: Performed By: #### T ROPI #### [facility] [address] [place] [address] [employer] Presentation Manager: Ramsey Rodriguez MD GFR/1.73 sq M.predicted among non-blacks MDRD (S/P/Bld) [Vol rate/Area] mL/min/{1.73_m2} Normal >60 [facility] Comment on above: Result Comment: [...] secretion. Performed By: #### T ROPI #### [facility] [address] [place] [address] Merch[employer]ise Presentation Manager: Ramsey Rodriguez MD Glucose [Mass/Vol] 79 mg/dL Normal 74-99 [facility] Comment on above: Performed By: #### T ROPI #### [facility] [address] [place] [address] Merchandise Presentation Manager: Ramsey Rodriguez MD Potassium [Moles/Vol] 4.5 mmol/L Normal 3.7-5.3 [facility] Comment on above: Performed By: #### T ROPI #### [facility] [address] [place] [address] Merchandise Presentation Manager: Ramsey Rodriguez MD Sodium [Moles/Vol] 137 mmol/L Normal 136-145 [facility] Comment on above: Performed By: #### T ROPI #### [facility] [address] [place] [address] Merchandise Presentation Manager: Ramsey Rodriguez MD Urea nitrogen [Mass/Vol] 13 mg/dL Normal 8-23 [facility] Comment on above: Performed By: #### T ROPI #### [address] [address] Merchandise Presentation Manager: Ramsey Rodriguez MD CBC with Diffon 08-25-2023 Abs. Basophil <0.03 Normal 0.00-0.20 [facility] Comment on above: Performed By: #### T ROPI #### [place] [address] Merch[employer]ise Presentation Manager: Ramsey Rodriguez MD Abs.Imm.Granulocyte <0.03 Normal 0.00-0.30 [facility] Comment on above: Performed By: #### T ROPI #### [place] [address] [employer]ch[employer]ise Presentation Manager: Ramsey Rodriguez MD Abs.Neutrophil (Seg) 2.56 k/uL Normal 1.50-8.10 [facility] Comment on above: Performed By: #### T ROPI #### [place] [address] Merchandise Presentation Manager: Ramsey Rodriguez MD Basophils/100 WBC (Bld) 1 % Normal 0-2 [facility] Comment on above: Performed By: #### T ROPI #### [place] [address] [employer]ch[employer]ise Presentation Manager: Ramsey Rodriguez MD Eosinophils (Bld) [#/Vol] 0.18 10*3/uL Normal 0.00-0.44 [facility] Comment on above: Performed By: #### T ROPI #### [place] [address] Merchandise Presentation Manager: Ramsey Rodriguez MD Eosinophils/100 WBC (Bld) 4 % Normal 1-4 [facility] Comment on above: Performed By: #### T ROPI #### [place] [address] Merch[employer]ise Presentation Manager: Ramsey Rodriguez MD Erythrocyte distribution width (RBC) [Ratio] 15.8 % High 11.8-14.4 [facility] Comment on above: Performed By: #### T ROPI #### [address] [address] Merch[employer]ise Presentation Manager: Ramsey Rodriguez MD Hematocrit (Bld) [Volume fraction] 33.3 % Low 40.7-50.3 [facility] Comment on above: Performed By: #### T ROPI #### [address] [address] Merchandise Presentation Manager: Ramsey Rodriguez MD Hemoglobin (Bld) [Mass/Vol] 10.4 g/dL Low 13.0-17.0 [facility] Comment on above: Performed By: #### T ROPI #### [address] [address] Merchandise Presentation Manager: Ramsey Rodriguez MD Immature granulocytes/100 WBC (Bld) 0 % Normal 0 [facility] Comment on above: Performed By: #### T ROPI #### [address] [address] Merchandise Presentation Manager: Ramsey Rodriguez MD Lymphocytes (Bld) [#/Vol] 1.22 10*3/uL Normal 1.10-3.70 [facility] Comment on above: Performed By: #### T ROPI #### [address] [address] Merchandise Presentation Manager: Ramsey Rodriguez MD Lymphocytes/100 WBC (Bld) 28 % Normal 24-43 [facility] Comment on above: Performed By: #### T ROPI #### [address] [address] Merchandise Presentation Manager: Ramsey Rodriguez MD MCH (RBC) [Entitic mass] 31.0 pg Normal 25.2-33.5 [facility] Comment on above: Performed By: #### T ROPI #### [address] [address] Merchandise Presentation Manager: Ramsey Rodriguez MD MCHC (RBC) [Mass/Vol] 31.2 g/dL Normal 28.4-34.8 [facility] Comment on above: Performed By: #### T ROPI #### [address] [address] Merchandise Presentation Manager: Ramsey Rodriguez MD MCV (RBC) [Entitic vol] 99.4 fL Normal 82.6-102.9 [facility] Comment on above: Performed By: #### T ROPI #### [address] [address] Merchandise Presentation Manager: Ramsey Rodriguez MD Monocytes (Bld) [#/Vol] 0.32 10*3/uL Normal 0.10-1.20 [facility] Comment on above: Performed By: #### T ROPI #### [place] [address] Merchandise Presentation Manager: Ramsey Rodriguez MD Monocytes/100 WBC (Bld) 7 % Normal 3-12 [facility] Comment on above: Performed By: #### T ROPI #### [place] [address] Merch[employer]ise Presentation Manager: Ramsey Rodriguez MD Neutrophil (Seg) 60 % Normal 36-65 [facility] Comment on above: Performed By: #### T ROPI #### [place] [address] Merchandise Presentation Manager: Ramsey Rodriguez MD NRBC Automated 0.0 per 100 WBC Normal 0.0 [facility] Comment on above: Performed By: #### T ROPI #### [place] [address] Merchandise Presentation Manager: Ramsey Rodriguez MD Platelet mean volume (Bld) [Entitic vol] 10.0 fL Normal 8.1-13.5 [facility] Comment on above: Performed By: #### T ROPI #### [address] [address] [place] [address] Merch[employer]ise Presentation Manager: Ramsey Rodriguez MD Platelets (Bld) [#/Vol] 143 10*3/uL Normal 138-453 [facility] Comment on above: Performed By: #### T ROPI #### [address] [address] Merchandise Presentation Manager: Ramsey Rodriguez MD RBC (Bld) [#/Vol] 3.35 10*6/uL Low 4.21-5.77 [facility] Comment on above: Performed By: #### T ROPI #### [address] [address] Merchandise Presentation Manager: Ramsey Rodriguez MD RBC morphology finding Nom (Bld) ANISOCYTOSIS PRESENT Normal [facility] Comment on above: Performed By: #### T ROPI #### [address] [address] Merch[employer]ise Presentation Manager: Ramsey Rodriguez MD WBC (Bld) [#/Vol] 4.3 10*3/uL Normal 3.5-11.3 [facility] Comment on above: Performed By: #### T ROPI #### [address] [address] Merchandise Presentation Manager: Ramsey Rodriguez MD Glucose,Whole Bloodon 2023 Glucose [Mass/Vol] 88 mg/dL Normal 75-110 [facility] Glucose [Mass/Vol] 102 mg/dL Normal 75-110 [facility] Glucose [Mass/Vol] 104 mg/dL Normal 75-110 [facility] Glucose [Mass/Vol] 80 mg/dL Normal 75-110 [facility] XR ABDOMEN (KUB) (SINGLE AP VIEW)on 08-25-2023 [...] Gerardo Stafford MD 08/25/23 Final result Normal [facility] Basic Metab w/rfx MGon 08-23 Anion gap [Moles/Vol] 6 mmol/L Low 9-16 [facility] Comment on above: Performed By: #### B FABIANO LEON, HEPXA #### [facility] [address] [place] [address] [employer]ch[employer]ise Presentation Manager: Ramsey Rodriguez MD Chloride [Moles/Vol] 108 mmol/L High 98-107 [facility] Comment on above: Performed By: #### B FABIANO LEON, HEPXA #### [facility] [address] [place] [address] Merchandise Presentation Manager: Ramsey Rodriguez MD Potassium [Moles/Vol] 4.2 mmol/L Normal 3.7-5.3 [facility] Comment on above: Performed By: #### B FABIANO LEON, HEPXA #### [facility] [address] [place] [address] Merch[employer]ise Presentation Manager: Ramsey Rodriguez MD Sodium [Moles/Vol] 139 mmol/L Normal 136-145 [facility] Comment on above: Performed By: #### B EDWARD CDP, HEPXA #### [facility] [address] [place] [address] Merch[employer]ise Presentation Manager: Ramsey Rodriguez MD Calcium [Mass/Vol] 8.1 mg/dL Low 8.6-10.4 [facility] Comment on above: Performed By: #### B MP, CDP, HEPXA #### [facility] [address] [place] [address] Merchandise Presentation Manager: Ramsey Rodriguez MD CO2 [Moles/Vol] 25 mmol/L Normal 20-31 [facility] Comment on above: Performed By: #### B MP, CDP, HEPXA #### [facility] [address] [place] [address] Merchandise Presentation Manager: Ramsey Rodriguez MD Creatinine [Mass/Vol] 0.5 mg/dL Low 0.70-1.20 [facility] Comment on above: Performed By: #### B MP, CDP, HEPXA #### [facility] [address] [place] [address] Merch[employer] Presentation Manager: Ramsey Rodriguez MD GFR/1.73 sq M.predicted among non-blacks MDRD (S/P/Bld) [Vol rate/Area] mL/min/{1.73_m2} Normal >60 [facility] Comment on above: Result Comment: [...] tubular secretion. Performed By: #### B MP, CDP, HEPXA #### [facility] [address] [place] [address] Merch[employer]ise Presentation Manager: Ramsey Rodriguez MD Glucose [Mass/Vol] 105 mg/dL High 74-99 [facility] Comment on above: Performed By: #### B MP, CDP, HEPXA #### [facility] [place] [address] Merch[employer]ise Presentation Manager: Ramsey Rodriguez MD Urea nitrogen [Mass/Vol] 12 mg/dL Normal 8-23 [facility] Comment on above: Performed By: #### B MP, CDP, HEPXA #### [address] [address] Merch[employer]ise Presentation Manager: Ramsey Rodriguez MD CBC with Diffon 08-24-2023 Abs. Basophil <0.03 Normal 0.00-0.20 [facility] Comment on above: Performed By: #### B MP, CDP, HEPXA #### [address] [address] Merchandise Presentation Manager: Ramsey Rodriguez MD Abs.Imm.Granulocyte <0.03 Normal 0.00-0.30 [facility] Comment on above: Performed By: #### B MP, CDP, HEPXA #### [address] [address] Merchandise Presentation Manager: Ramsey Rodriguez MD Abs.Neutrophil (Seg) 3.28 k/uL Normal 1.50-8.10 [facility] Comment on above: Performed By: #### B MP, CDP, HEPXA #### [address] [address] Merch[employer]ise Presentation Manager: Ramsey Rodriguez MD Basophils/100 WBC (Bld) 0 % Normal 0-2 [facility] Comment on above: Performed By: #### B MP, CDP, HEPXA #### [address] [address] Merchandise Presentation Manager: Ramsey Rodriguez MD Eosinophils (Bld) [#/Vol] 0.29 10*3/uL Normal 0.00-0.44 [facility] Comment on above: Performed By: #### B MP, CDP, HEPXA #### [address] [address] Merch[employer]ise Presentation Manager: Ramsey Rodriguez MD Eosinophils/100 WBC (Bld) 6 % High 1-4 [facility] Comment on above: Performed By: #### B MP, CDP, HEPXA #### [facility] [address] [place] [address] [employer] Presentation Manager: Ramsey Rodriguez MD Erythrocyte distribution width (RBC) [Ratio] 15.7 % High 11.8-14.4 [facility] Comment on above: Performed By: #### B MP, CDP, HEPXA #### [facility] [address] [place] [address] Merch[employer] Presentation Manager: Ramsey Rodriguez MD Hematocrit (Bld) [Volume fraction] 33.4 % Low 40.7-50.3 [facility] Comment on above: Performed By: #### B MP, CDP, HEPXA #### [facility] [address] [place] [address] [employer] Presentation Manager: Ramsey Rodriguez MD Hemoglobin (Bld) [Mass/Vol] 10.5 g/dL Low 13.0-17.0 [facility] Comment on above: Performed By: #### B MP, CDP, HEPXA #### [facility] [address] [place] [address] Merch[employer]ise Presentation Manager: Ramsey Rodriguez MD Immature granulocytes/100 WBC (Bld) 0 % Normal 0 [facility] Comment on above: Performed By: #### B MP, CDP, HEPXA #### [facility] [address] [place] [address] [employer]ch[employer] Presentation Manager: Ramsey Rodriguez MD Lymphocytes (Bld) [#/Vol] 0.89 10*3/uL Low 1.10-3.70 [facility] Comment on above: Performed By: #### B MP, CDP, HEPXA #### [facility] [address] [place] [address] Merch[employer]ise Presentation Manager: Ramsey Rodriguez MD Lymphocytes/100 WBC (Bld) 19 % Low 24-43 [facility] Comment on above: Performed By: #### B MP, CDP, HEPXA #### [address] [address] [employer]ch[employer]ise Presentation Manager: Ramsey Rodriguez MD MCH (RBC) [Entitic mass] 30.9 pg Normal 25.2-33.5 [facility] Comment on above: Performed By: #### B MP, CDP, HEPXA #### [address] [address] Merch[employer]ise Presentation Manager: Ramsey Rodriguez MD MCHC (RBC) [Mass/Vol] 31.4 g/dL Normal 28.4-34.8 [facility] Comment on above: Performed By: #### B MP, CDP, HEPXA #### [address] [address] [employer]ch[employer]ise Presentation Manager: Ramsey Rodriguez MD MCV (RBC) [Entitic vol] 98.2 fL Normal 82.6-102.9 [facility] Comment on above: Performed By: #### B MP, CDP, HEPXA #### [address] [address] [employer]ch[employer]ise Presentation Manager: Ramsey Rodriguez MD Monocytes (Bld) [#/Vol] 0.26 10*3/uL Normal 0.10-1.20 [facility] Comment on above: Performed By: #### B MP, CDP, HEPXA #### [address] [address] [employer] Presentation Manager: Ramsey Rodriguez MD Monocytes/100 WBC (Bld) 6 % Normal 3-12 [facility] Comment on above: Performed By: #### B MP, CDP, HEPXA #### [address] [address] [employer]ch[employer]ise Presentation Manager: Ramsey Rodriguez MD Neutrophil (Seg) 69 % High 36-65 [facility] Comment on above: Performed By: #### B MP, CDP, HEPXA #### [address] [address] Merchandise Presentation Manager: Ramsey Rodriguez MD NRBC Automated 0.0 per 100 WBC Normal 0.0 [facility] Comment on above: Performed By: #### B MP, CDP, HEPXA #### [address] [address] Merchandise Presentation Manager: Ramsey Rodriguez MD Platelet mean volume (Bld) [Entitic vol] 10.0 fL Normal 8.1-13.5 [facility] Comment on above: Performed By: #### B MP, CDP, HEPXA #### [address] [address] Merchandise Presentation Manager: Ramsey Rodriguez MD Platelets (Bld) [#/Vol] 141 10*3/uL Normal 138-453 [facility] Comment on above: Performed By: #### B MP, CDP, HEPXA #### [address] [address] Merchandise Presentation Manager: Ramsey Rodriguez MD RBC (Bld) [#/Vol] 3.40 10*6/uL Low 4.21-5.77 [facility] Comment on above: Performed By: #### B MP, CDP, HEPXA #### [address] [address] Merchandise Presentation Manager: Ramsey Rodriguez MD RBC morphology finding Nom (Bld) ANISOCYTOSIS PRESENT Normal [facility] Comment on above: Performed By: #### B MP, CDP, HEPXA #### [address] [address] Merchandise Presentation Manager: Ramsey Rodriguez MD WBC (Bld) [#/Vol] 4.8 10*3/uL Normal 3.5-11.3 [facility] Comment on above: Performed By: #### B MP, CDP, HEPXA #### [facility] [address] [place], [place] [id number] Merch[employer]ise Presentation Manager: Ramsey Rodriguez MD Glucose,Whole Bloodon 2023 Glucose [Mass/Vol] 92 mg/dL Normal 75-110 [facility] Glucose [Mass/Vol] 81 mg/dL Normal 75-110 [facility] Glucose [Mass/Vol] 99 mg/dL Normal 75-110 [facility] Glucose [Mass/Vol] 94 mg/dL Normal 75-110 [facility] XR CHEST PORTABLEon 08-24-19 XR CHEST PORTABLE [...] Alex Martinez MD 08/24/23 Final result Normal [facility] Basic Metab w/rfx MGon 08-22 Anion gap [Moles/Vol] 6 mmol/L Low 9-16 [facility] Comment on above: Performed By: #### B EDWARD, TROPI #### [facility] [address] [place], [place] [id number] Merchandise Presentation Manager: Ramsey Rodriguez MD Calcium [Mass/Vol] 8.1 mg/dL Low 8.6-10.4 [facility] Comment on above: Performed By: #### B EDWARD TROPI #### [employer] [address] [place], [place] [id number] Merchandise Presentation Manager: Ramsey Rodriguez MD Chloride [Moles/Vol] 107 mmol/L Normal 98-107 [facility] Comment on above: Performed By: #### B EDWARD, TROPI #### [facility] [address] [place] [address] Merchandise Presentation Manager: Ramsey Rodriguez MD CO2 [Moles/Vol] 25 mmol/L Normal 20-31 [facility] Comment on above: Performed By: #### B EDWARD, TROPI #### [facility] [address] [place] [address] Merch[employer]ise Presentation Manager: Ramsey Rodriguez MD Creatinine [Mass/Vol] 0.5 mg/dL Low 0.70-1.20 [facility] Comment on above: Performed By: #### B EDWARD, TROPI #### [facility] [address] [place] [address] [employer]ch[employer]ise Presentation Manager: Ramsey Rodriguez MD GFR/1.73 sq M.predicted among non-blacks MDRD (S/P/Bld) [Vol rate/Area] mL/min/{1.73_m2} Normal >60 [facility] Comment on above: Result Comment: [...] Performed By: #### B EDWARD, TROPI #### [facility] [address] [place] [address] Merch[employer]ise Presentation Manager: Ramsey Rodriguez MD Glucose [Mass/Vol] 111 mg/dL High 74-99 [facility] Comment on above: Performed By: #### B EDWARD, TROPI #### [facility] [address] [place] [address] Merch[employer]ise Presentation Manager: Ramsey Rodriguez MD Potassium [Moles/Vol] 4.1 mmol/L Normal 3.7-5.3 [facility] Comment on above: Performed By: #### B MP, TROPI #### [address] [address] Merch[employer]ise Presentation Manager: Ramsey Rodriguez MD Sodium [Moles/Vol] 138 mmol/L Normal 136-145 [facility] Comment on above: Performed By: #### B MP, TROPI #### [address] [address] Merchandise Presentation Manager: Ramsey Rodriguez MD Urea nitrogen [Mass/Vol] 17 mg/dL Normal 8-23 [facility] Comment on above: Performed By: #### B EDWARD, TROPI #### [address] [address] Merch[employer]ise Presentation Manager: Ramsey Rodriguez MD CBC with Diffon 08-23-2023 Abs. Basophil <0.03 Normal 0.00-0.20 [facility] Comment on above: Performed By: #### B EDWARD, TROPI #### [address] [address] Merchandise Presentation Manager: Ramsey Rodriguez MD Abs.Imm.Granulocyte <0.03 Normal 0.00-0.30 [facility] Comment on above: Performed By: #### B EDWARD, TROPI #### [address] [address] Merch[employer]ise Presentation Manager: Ramsey Rodriguez MD Abs.Neutrophil (Seg) 4.44 k/uL Normal 1.50-8.10 [facility] Comment on above: Performed By: #### B MP, TROPI #### [address] [address] Merch[employer]ise Presentation Manager: Ramsey Rodriguez MD Basophils/100 WBC (Bld) 0 % Normal 0-2 [facility] Comment on above: Performed By: #### B MP, TROPI #### [address] [address] Merch[employer]ise Presentation Manager: Ramsey Rodriguez MD Eosinophils (Bld) [#/Vol] 0.26 10*3/uL Normal 0.00-0.44 [facility] Comment on above: Performed By: #### B MP, TROPI #### [facility] [address] [place] [address] Merch[employer]ise Presentation Manager: Ramsey Rodriguez MD Eosinophils/100 WBC (Bld) 4 % Normal 1-4 [facility] Comment on above: Performed By: #### B MP, TROPI #### [facility] [address] [place] [address] [employer]ch[employer] Presentation Manager: Ramsey Rodriguez MD Erythrocyte distribution width (RBC) [Ratio] 15.8 % High 11.8-14.4 [facility] Comment on above: Performed By: #### B MP, TROPI #### [facility] [address] [place] [address] Merch[employer]ise Presentation Manager: Ramsey Rodriguez MD Hematocrit (Bld) [Volume fraction] 35.5 % Low 40.7-50.3 [facility] Comment on above: Performed By: #### B MP, TROPI #### [facility] [address] [place] [address] Merch[employer]ise Presentation Manager: Ramsey Rodriguez MD Hemoglobin (Bld) [Mass/Vol] 10.8 g/dL Low 13.0-17.0 [facility] Comment on above: Performed By: #### B MP, TROPI #### [facility] [address] [place] [address] Merch[employer]ise Presentation Manager: Ramsey Rodriguez MD Immature granulocytes/100 WBC (Bld) 0 % Normal 0 [facility] Comment on above: Performed By: #### B MP, TROPI #### [facility] [address] [place] [address] [employer]ch[employer]ise Presentation Manager: Ramsey Rodriguez MD Lymphocytes (Bld) [#/Vol] 0.92 10*3/uL Low 1.10-3.70 [facility] Comment on above: Performed By: #### B EDWARD, TROPI #### [facility] [address] [place] [address] Merch[employer]ise Presentation Manager: Ramsey Rodriguez MD Lymphocytes/100 WBC (Bld) 15 % Low 24-43 [facility] Comment on above: Performed By: #### B EDWARD, TROPI #### [facility] [address] [place] [address] [employer]ch[employer]ise Presentation Manager: Ramsey Rodriguez MD MCH (RBC) [Entitic mass] 30.6 pg Normal 25.2-33.5 [facility] Comment on above: Performed By: #### B EDWARD TROPI #### [address] [address] Merchandise Presentation Manager: Ramsey Rodriguez MD MCHC (RBC) [Mass/Vol] 30.4 g/dL Normal 28.4-34.8 [facility] Comment on above: Performed By: #### Nicol LEON TROPI #### [address] [address] Merchandise Presentation Manager: Ramsey Rodriguez MD MCV (RBC) [Entitic vol] 100.6 fL Normal 82.6-102.9 [facility] Comment on above: Performed By: #### Nicol LEON TROPI #### [address] [address] Merchandise Presentation Manager: Ramsey Rodriguez MD Monocytes (Bld) [#/Vol] 0.31 10*3/uL Normal 0.10-1.20 [facility] Comment on above: Performed By: #### B EDWARD, TROPI #### [facility] [address] [place] [address] Merch[employer]ise Presentation Manager: Ramsey Rodriguez MD Monocytes/100 WBC (Bld) 5 % Normal 3-12 [facility] Comment on above: Performed By: #### B MP, TROPI #### [facility] [address] [place] [address] Merch[employer]ise Presentation Manager: Ramsey Rodriguez MD Neutrophil (Seg) 76 % High 36-65 [facility] Comment on above: Performed By: #### B MP, TROPI #### [facility] [address] [place] [address] Merch[employer]ise Presentation Manager: Ramsey Rodriguez MD NRBC Automated 0.0 per 100 WBC Normal 0.0 [facility] Comment on above: Performed By: #### B MP, TROPI #### [facility] [address] [place] [address] Merch[employer]ise Presentation Manager: Ramsey Rodriguez MD Platelet mean volume (Bld) [Entitic vol] 9.9 fL Normal 8.1-13.5 [facility] Comment on above: Performed By: #### B MP, TROPI #### [facility] [address] [place] [address] Merchandise Presentation Manager: Ramsey Rodriguez MD Platelets (Bld) [#/Vol] 129 10*3/uL Low 138-453 [facility] Comment on above: Performed By: #### B MP, TROPI #### [address] [address] Merchandise Presentation Manager: Ramsey Rodriguez MD RBC (Bld) [#/Vol] 3.53 10*6/uL Low 4.21-5.77 [facility] Comment on above: Performed By: #### B MP, TROPI #### [facility] [address] [place] [address] Merchandise Presentation Manager: Ramsey Rodriguez MD RBC morphology finding Nom (Bld) ANISOCYTOSIS PRESENT Normal [facility] Comment on above: Performed By: #### B MP, TROPI #### [facility] [place], [place] [phone] Merchandise Presentation Manager: Ramsey Rodriguez MD WBC (Bld) [#/Vol] 6.0 10*3/uL Normal 3.5-11.3 [facility] Comment on above: Performed By: #### B EDWARD TROPI #### [facility] [address] [place] [address] Merch[employer]ise Presentation Manager: Ramsey Rodriguez MD Glucose,Whole Bloodon 2023 Glucose [Mass/Vol] 110 mg/dL Normal 75-110 [facility] Glucose [Mass/Vol] 97 mg/dL Normal 75-110 [facility] Glucose [Mass/Vol] 94 mg/dL Normal 75-110 [facility] Glucose [Mass/Vol] 90 mg/dL Normal 75-110 [facility] Magnesiumon 08-23-2023 Magnesium [Mass/Vol] 2.1 mg/dL Normal 1.6-2.4 [facility] Comment on above: Performed By: #### B EDWARD TROPI #### [address] [address] Merchandise Presentation Manager: Ramsey Rodriguez MD Phosphorus, Inorg.on 024 Phosphorus, Inorg. 1.7 mg/dL Low 2.5-4.5 [facility] Comment on above: Performed By: #### B EDWARD TROPI #### [facility] [address] [place] [address] Merch[employer]ise Presentation Manager: Ramsey Rodriguez MD Basic Metab w/rfx MGon 08-21 Anion gap [Moles/Vol] 8 mmol/L Low 9-16 [facility] Comment on above: Performed By: #### H EPXA, CBC, PTT, PT #### [facility] [address] [place] [address] Merchandise Presentation Manager: Ramsey Rodriguez MD Calcium [Mass/Vol] 8.3 mg/dL Low 8.6-10.4 [facility] Comment on above: Performed By: #### H EPXA, CBC, PTT, PT #### [facility] [address] [place] [address] Merchandise Presentation Manager: Ramsey Rodriguez MD Chloride [Moles/Vol] 105 mmol/L Normal 98-107 [facility] Comment on above: Performed By: #### H EPXA, CBC, PTT, PT #### [facility] [address] [place] [address] Merchandise Presentation Manager: Ramsey Rodriguez MD CO2 [Moles/Vol] 25 mmol/L Normal 20-31 [facility] Comment on above: Performed By: #### H EPXA, CBC, PTT, PT #### [address] [id number] Merch[employer]ise Presentation Manager: Ramsey Rodriguez MD Creatinine [Mass/Vol] 0.6 mg/dL Low 0.70-1.20 [facility] Comment on above: Performed By: #### H EPXA, CBC, PTT, PT #### [facility] [address] [place] [address] Merch[employer]ise Presentation Manager: Ramsey Rodriguez MD GFR/1.73 sq M.predicted among non-blacks MDRD (S/P/Bld) [Vol rate/Area] mL/min/{1.73_m2} Normal >60 [facility] Comment on above: Result Comment: [...] #### H EPXA, CBC, PTT, PT #### [facility] [address] [place] [address] Merchandise Presentation Manager: Ramsey Rodriguez MD Glucose [Mass/Vol] 105 mg/dL High 74-99 [facility] Comment on above: Performed By: #### H EPXA, CBC, PTT, PT #### [facility] [address] [place] [address] Merch[employer]ise Presentation Manager: Ramsey Rodriguez MD Potassium [Moles/Vol] 4.2 mmol/L Normal 3.7-5.3 [facility] Comment on above: Result Comment: SPEC IMEN SLIGHTLY HEMOLYZED, RESULTS MAY BE ADVERSELY AFFECTED. Performed By: #### H EPXA, CBC, PTT, PT #### [address] [address] Merchandise Presentation Manager: Ramsey Rodriguez MD Sodium [Moles/Vol] 138 mmol/L Normal 136-145 [facility] Comment on above: Performed By: #### H EPXA, CBC, PTT, PT #### [facility] [address] [place] [address] Merchandise Presentation Manager: Ramsey Rodriguez MD Urea nitrogen [Mass/Vol] 25 mg/dL High 8-23 [facility] Comment on above: Performed By: #### H EPXA, CBC, PTT, PT #### [facility] [address] [place] [address] Merch[employer]ise Presentation Manager: Ramsey Rodriguez MD CBC with Diffon 08-22-2023 Abs. Basophil 0.03 k/uL Normal 0.00-0.20 [facility] Comment on above: Performed By: #### H EPXA, CBC, PTT, PT #### [facility] [address] [place] [address] Merchandise Presentation Manager: Ramsey Rodriguez MD Abs.Imm.Granulocyte 0.03 k/uL Normal 0.00-0.30 [facility] Comment on above: Performed By: #### H EPXA, CBC, PTT, PT #### [facility] [address] [place] [address] Merchandise Presentation Manager: Ramsey Rodriguez MD Abs.Neutrophil (Seg) 7.03 k/uL Normal 1.50-8.10 [facility] Comment on above: Performed By: #### H EPXA, CBC, PTT, PT #### [address] [address] Merchandise Presentation Manager: Ramsey Rodriguez MD Basophils/100 WBC (Bld) 0 % Normal 0-2 [facility] Comment on above: Performed By: #### H EPXA, CBC, PTT, PT #### [place] [address] [employer]chandise Presentation Manager: Ramsey Rodriguez MD Eosinophils (Bld) [#/Vol] 0.10 10*3/uL Normal 0.00-0.44 [facility] Comment on above: Performed By: #### H EPXA, CBC, PTT, PT #### [place] [address] [employer]ch[employer]ise Presentation Manager: Ramsey Rodriguez MD Eosinophils/100 WBC (Bld) 1 % Normal 1-4 [facility] Comment on above: Performed By: #### H EPXA, CBC, PTT, PT #### [place] [address] [employer]chandise Presentation Manager: Ramsey Rodriguez MD Erythrocyte distribution width (RBC) [Ratio] 16.0 % High 11.8-14.4 [facility] Comment on above: Performed By: #### H EPXA, CBC, PTT, PT #### [facility] [address] [place] [address] Merch[employer]ise Presentation Manager: Ramsey Rodriguez MD Hematocrit (Bld) [Volume fraction] 38.1 % Low 40.7-50.3 [facility] Comment on above: Performed By: #### H EPXA, CBC, PTT, PT #### [facility] [address] [place] [address] Merch[employer]ise Presentation Manager: Ramsey Rodriguez MD Hemoglobin (Bld) [Mass/Vol] 11.9 g/dL Low 13.0-17.0 [facility] Comment on above: Performed By: #### H EPXA, CBC, PTT, PT #### [address] [address] Merchandise Presentation Manager: Ramsey Rodriguez MD Immature granulocytes/100 WBC (Bld) 0 % Normal 0 [facility] Comment on above: Performed By: #### H EPXA, CBC, PTT, PT #### [address] [address] Merchandise Presentation Manager: Ramsey Rodriguez MD Lymphocytes (Bld) [#/Vol] 0.78 10*3/uL Low 1.10-3.70 [facility] Comment on above: Performed By: #### H EPXA, CBC, PTT, PT #### [facility] [address] [place] [address] Merch[employer]ise Presentation Manager: Ramsey Rodriguez MD Lymphocytes/100 WBC (Bld) 9 % Low 24-43 [facility] Comment on above: Performed By: #### H EPXA, CBC, PTT, PT #### [facility] [address] [place] [address] Merch[employer]ise Presentation Manager: Ramsey Rodriguez MD MCH (RBC) [Entitic mass] 30.8 pg Normal 25.2-33.5 [facility] Comment on above: Performed By: #### H EPXA, CBC, PTT, PT #### [facility] [address] [place] [address] Merch[employer]ise Presentation Manager: Ramsey Rodriguez MD MCHC (RBC) [Mass/Vol] 31.2 g/dL Normal 28.4-34.8 [facility] Comment on above: Performed By: #### H EPXA, CBC, PTT, PT #### [address] [address] Merchandise Presentation Manager: Ramsey Rodriguez MD MCV (RBC) [Entitic vol] 98.7 fL Normal 82.6-102.9 [facility] Comment on above: Performed By: #### H EPXA, CBC, PTT, PT #### [address] [address] Merchandise Presentation Manager: Ramsey Rodriguez MD Monocytes (Bld) [#/Vol] 0.32 10*3/uL Normal 0.10-1.20 [facility] Comment on above: Performed By: #### H EPXA, CBC, PTT, PT #### [address] [address] Merch[employer]ise Presentation Manager: Ramsey Rodriguez MD Monocytes/100 WBC (Bld) 4 % Normal 3-12 [facility] Comment on above: Performed By: #### H EPXA, CBC, PTT, PT #### [address] [address] [employer]ch[employer]ise Presentation Manager: Ramsey Rodriguez MD Neutrophil (Seg) 86 % High 36-65 [facility] Comment on above: Performed By: #### H EPXA, CBC, PTT, PT #### [address] [address] Merch[employer]ise Presentation Manager: Ramsey Rodriguez MD NRBC Automated 0.0 per 100 WBC Normal 0.0 [facility] Comment on above: Performed By: #### H EPXA, CBC, PTT, PT #### [address] [address] Merchandise Presentation Manager: Ramsey Rodriguez MD Platelet mean volume (Bld) [Entitic vol] 10.1 fL Normal 8.1-13.5 [facility] Comment on above: Performed By: #### H EPXA, CBC, PTT, PT #### [address] [address] Merchandise Presentation Manager: Ramsey Rodriguez MD Platelets (Bld) [#/Vol] 140 10*3/uL Normal 138-453 [facility] Comment on above: Performed By: #### H EPXA, CBC, PTT, PT #### [facility] [place] [address] Merchandise Presentation Manager: Ramsey Rodriguez MD RBC (Bld) [#/Vol] 3.86 10*6/uL Low 4.21-5.77 [facility] Comment on above: Performed By: #### H EPXA, CBC, PTT, PT #### [facility] [place] [address] Merchandise Presentation Manager: Ramsey Rodriguez MD RBC morphology finding Nom (Bld) ANISOCYTOSIS PRESENT Normal [facility] Comment on above: Performed By: #### H EPXA, CBC, PTT, PT #### [facility] [place] [address] Merch[employer]ise Presentation Manager: Ramsey Rodriguez MD WBC (Bld) [#/Vol] 8.3 10*3/uL Normal 3.5-11.3 [facility] Comment on above: Performed By: #### H EPXA, CBC, PTT, PT #### [facility] [address] [place] [address] Merch[employer]ise Presentation Manager: Ramsey Rodriguez MD Glucose,Whole Bloodon 2023 Glucose [Mass/Vol] 127 mg/dL High 75-110 [facility] Glucose [Mass/Vol] 125 mg/dL High 75-110 [facility] Glucose [Mass/Vol] 112 mg/dL High 75-110 [facility] Glucose [Mass/Vol] 84 mg/dL Normal 75-110 [facility] Glucose [Mass/Vol] 86 mg/dL Normal 75-110 [facility] Glucose [Mass/Vol] 96 mg/dL Normal 75-110 [facility] Magnesiumon 08-22-2023 Magnesium [Mass/Vol] 1.8 mg/dL Normal 1.6-2.4 [facility] Comment on above: Performed By: #### H EPXA, CBC, PTT, PT #### [employer] [address] [place] [address] Merchandise Presentation Manager: Ramsey Rodriguez MD Phosphorus, Inorg.on 024 Phosphorus, Inorg. 2.2 mg/dL Low 2.5-4.5 [facility] Comment on above: Performed By: #### H EPXA, CBC, PTT, PT #### [facility] [address] [place] [address] Merchandise Presentation Manager: Ramsey Rodriguez MD Basic Metab w/rfx MGon 08-20 Anion gap [Moles/Vol] 10 mmol/L Normal 9-16 [facility] Comment on above: Performed By: #### H EPXA, CBC, PTT, PT #### [facility] [address] [place] [address] Merchandise Presentation Manager: Ramsey Rodriguez MD Calcium [Mass/Vol] 9.0 mg/dL Normal 8.6-10.4 [facility] Comment on above: Performed By: #### H EPXA, CBC, PTT, PT #### [facility] [address] [place] [address] Merchandise Presentation Manager: Ramsey Rodriguez MD Chloride [Moles/Vol] 105 mmol/L Normal 98-107 [facility] Comment on above: Performed By: #### H EPXA, CBC, PTT, PT #### [employer] [address] [place] [address] Merchandise Presentation Manager: Ramsey Rodriguez MD CO2 [Moles/Vol] 27 mmol/L Normal 20-31 [facility] Comment on above: Performed By: #### H EPXA, CBC, PTT, PT #### [facility] [address] [place] [address] Merchandise Presentation Manager: Ramsey Rodriguez MD Creatinine [Mass/Vol] 0.7 mg/dL Normal 0.70-1.20 [facility] Comment on above: Performed By: #### H EPXA, CBC, PTT, PT #### [address] [address] [employer] Presentation Manager: Ramsey Rodriguez MD GFR/1.73 sq M.predicted among non-blacks MDRD (S/P/Bld) [Vol rate/Area] 89 mL/min/{1.73_m2} Normal >60 [facility] Comment on above: Result Comment: [...] #### H EPXA, CBC, PTT, PT #### [facility] [address] [place] [address] [employer]ch[employer]ise Presentation Manager: Ramsey Rodriguez MD Glucose [Mass/Vol] 146 mg/dL High 74-99 [facility] Comment on above: Performed By: #### H EPXA, CBC, PTT, PT #### [facility] [address] [place] [address] [employer]ch[employer]ise Presentation Manager: Ramsey Rodriguez MD Potassium [Moles/Vol] 4.4 mmol/L Normal 3.7-5.3 [facility] Comment on above: Performed By: #### H EPXA, CBC, PTT, PT #### [facility] [address] [place] [address] Merchandise Presentation Manager: Ramsey Rodriguez MD Sodium [Moles/Vol] 142 mmol/L Normal 136-145 [facility] Comment on above: Performed By: #### H EPXA, CBC, PTT, PT #### [facility] [address] [place] [address] [employer]ch[employer]ise Presentation Manager: Ramsey Rodriguez MD Urea nitrogen [Mass/Vol] 25 mg/dL High 8-23 [facility] Comment on above: Performed By: #### H EPXA, CBC, PTT, PT #### [facility] [address] [place] [address] [employer] Presentation Manager: Ramsey Rodriguez MD CBC with Diffon 08-21-2023 Abs. Basophil 0.00 k/uL Normal 0.0-0.2 [facility] Comment on above: Performed By: #### H EPXA, CBC, PTT, PT #### [facility] [address] [place] [address] [employer]chandise Presentation Manager: Ramsey Rodriguez MD Abs.Imm.Granulocyte 0.00 k/uL Normal 0.00-0.30 [facility] Comment on above: Performed By: #### H EPXA, CBC, PTT, PT #### [facility] [address] [place] [address] Merchandise Presentation Manager: Ramsey Rodriguez MD Abs.Neutrophil (Seg) 10.86 k/uL High 1.8-7.7 [facility] Comment on above: Performed By: #### H EPXA, CBC, PTT, PT #### [facility] [address] [place] [address] Merchandise Presentation Manager: Ramsey Rodriguez MD Basophils/100 WBC (Bld) 0 % Normal 0-2 [facility] Comment on above: Performed By: #### H EPXA, CBC, PTT, PT #### [facility] [address] [place] [address] [employer]chandise Presentation Manager: Ramsey Rodriguez MD Eosinophils (Bld) [#/Vol] 0.00 10*3/uL Normal 0.0-0.4 [facility] Comment on above: Performed By: #### H EPXA, CBC, PTT, PT #### [address] [address] [employer]ch[employer]ise Presentation Manager: Ramsey Rodriguez MD Eosinophils/100 WBC (Bld) 0 % Low 1-4 [facility] Comment on above: Performed By: #### H EPXA, CBC, PTT, PT #### [address] [address] [employer]ch[employer]ise Presentation Manager: Ramsey Rodriguez MD Immature granulocytes/100 WBC (Bld) 0 % Normal 0 [facility] Comment on above: Performed By: #### H EPXA, CBC, PTT, PT #### [address] [address] [employer]ch[employer]ise Presentation Manager: Ramsey Rodriguez MD Lymphocytes (Bld) [#/Vol] 0.73 10*3/uL Low 1.0-4.8 [facility] Comment on above: Performed By: #### H EPXA, CBC, PTT, PT #### [address] [address] [employer]chandise Presentation Manager: Ramsey Rodriguez MD Lymphocytes/100 WBC (Bld) 6 % Low 24-44 [facility] Comment on above: Performed By: #### H EPXA, CBC, PTT, PT #### [place] [address] [employer]chandise Presentation Manager: Ramsey Rodriguez MD Monocytes (Bld) [#/Vol] 0.61 10*3/uL Normal 0.1-0.8 [facility] Comment on above: Performed By: #### H EPXA, CBC, PTT, PT #### [facility] [address] [place] [address] [employer]ch[employer]ise Presentation Manager: Ramsey Rodriguez MD Monocytes/100 WBC (Bld) 5 % Normal 1-7 [facility] Comment on above: Performed By: #### H EPXA, CBC, PTT, PT #### [facility] [address] [place] [address] [employer]ch[employer]ise Presentation Manager: Ramsey Rodriguez MD Morphology Edmond (Bld) [Interp] ANISOCYTOSIS PRESENT Normal [facility] Comment on above: Performed By: #### H EPXA, CBC, PTT, PT #### [address] [address] Merchandise Presentation Manager: Ramsey Rodriguez MD Neutrophil (Seg) 89 % High 36-66 [facility] Comment on above: Performed By: #### H EPXA, CBC, PTT, PT #### [facility] [address] [place] [phone] [employer] Presentation Manager: Ramsey Rodriguez MD Erythrocyte distribution width (RBC) [Ratio] 15.7 % High 11.8-14.4 [facility] Comment on above: Performed By: #### H EPXA, CBC, PTT, PT #### [facility] [address] [place] [address] [employer]ch[employer] Presentation Manager: Ramsey Rodriguez MD Hematocrit (Bld) [Volume fraction] 40.8 % Normal 40.7-50.3 [facility] Comment on above: Performed By: #### H EPXA, CBC, PTT, PT #### [facility] [address] [place] [phone] Merch[employer]ise Presentation Manager: Ramsey Rodriguez MD Hemoglobin (Bld) [Mass/Vol] 13.2 g/dL Normal 13.0-17.0 [facility] Comment on above: Performed By: #### H EPXA, CBC, PTT, PT #### [facility] [address] [place] [address] [employer]chandise Presentation Manager: Ramsey Rodriguez MD MCH (RBC) [Entitic mass] 30.3 pg Normal 25.2-33.5 [facility] Comment on above: Performed By: #### H EPXA, CBC, PTT, PT #### [address] [address] [employer]ch[employer]ise Presentation Manager: Ramsey Rodriguez MD MCHC (RBC) [Mass/Vol] 32.4 g/dL Normal 28.4-34.8 [facility] Comment on above: Performed By: #### H EPXA, CBC, PTT, PT #### [address] [address] Merchandise Presentation Manager: Ramsey Rodriguez MD MCV (RBC) [Entitic vol] 93.8 fL Normal 82.6-102.9 [facility] Comment on above: Performed By: #### H EPXA, CBC, PTT, PT #### [address] [address] Merchandise Presentation Manager: Ramsey Rodriguez MD NRBC Automated 0.0 per 100 WBC Normal 0.0 [facility] Comment on above: Performed By: #### H EPXA, CBC, PTT, PT #### [address] [address] [employer]chandise Presentation Manager: Ramsey Rodriguez MD Platelet mean volume (Bld) [Entitic vol] 10.0 fL Normal 8.1-13.5 [facility] Comment on above: Performed By: #### H EPXA, CBC, PTT, PT #### [address] [address] [employer]chandise Presentation Manager: Ramsey Rodriguez MD Platelets (Bld) [#/Vol] 197 10*3/uL Normal 138-453 [facility] Comment on above: Performed By: #### H EPXA, CBC, PTT, PT #### [address] [address] Merchandise Presentation Manager: Ramsey Rodriguez MD RBC (Bld) [#/Vol] 4.35 10*6/uL Normal 4.21-5.77 [facility] Comment on above: Performed By: #### H EPXA, CBC, PTT, PT #### [facility] [address] [place] [address] [phone] Merchandise Presentation Manager: Ramsey Rodriguez MD WBC (Bld) [#/Vol] 12.2 10*3/uL High 3.5-11.3 [facility] Comment on above: Performed By: #### H EPXA, CBC, PTT, PT #### [facility] [address] [place] [phone] [employer]ch[employer]ise Presentation Manager: Ramsey Rodriguez MD Glucose,Whole Bloodon 2023 Glucose [Mass/Vol] 124 mg/dL High 75-110 [facility] Glucose [Mass/Vol] 95 mg/dL Normal 75-110 [facility] Magnesiumon 08-21-2023 Magnesium [Mass/Vol] 2.0 mg/dL Normal 1.6-2.4 [facility] Comment on above: Performed By: #### H EPXA, CBC, PTT, PT #### [facility] [address] [place] [address] [phone] Merchandise Presentation Manager: Ramsey Rodriguez MD Phosphorus, Inorg.on 024 Phosphorus, Inorg. 3.9 mg/dL Normal 2.5-4.5 [facility] Comment on above: Performed By: #### H EPXA, CBC, PTT, PT #### [facility] [address] [place] [address] [phone] Merch[employer]ise Presentation Manager: Ramsey Rodriguez MD Type + Screenon 08-21-2023 Type + Screen Sample Expiration 08/24/2023,2359 Arm Band Number BE [id number] ABO/Rh(D) O NEGATIVE Antibody Screen NEGATIVE Normal [facility] Comment on above: Performed By: #### H EPXA, CBC, PTT, PT #### [facility] [address] [place] [address] [phone] Merchandise Presentation Manager: Ramsey Rodriguez MD XR CHEST PORTABLEon 08-21-19 [...] Dave Burns MD 08/21/23 Final result Normal [facility] Basophils Auto (Bld) [#/Vol] on 08-20-2023 Basophils (Bld) [#/Vol] 0.1 10 3/uL 0.0-0.1 [facility] Basophils/100 WBC Auto (Bld) on 08-20-2023 Basophils/100 WBC (Bld) 0.3 % 0.2-2.0 [facility] Bilirubin Auto test strip (U ) [Mass/Vol]on 08-20-2023 Bilirubin (U) [Mass/Vol] Negative NEGATIVE [facility] CBC with Diffon 08-20-2023 Abs. Basophil 0.00 k/uL Normal 0.0-0.2 [facility] Comment on above: Performed By: #### H EPXA, CBC, PTT, PT #### [facility] [address] [place] [phone] Merch[employer]ise Presentation Manager: Ramsey Rodriguez MD Abs.Imm.Granulocyte 0.00 k/uL Normal 0.00-0.30 [facility] Comment on above: Performed By: #### H EPXA, CBC, PTT, PT #### [facility] [address] [place] [phone] [employer]ch[employer]ise Presentation Manager: Ramsey Rodriguez MD Abs.Neutrophil (Seg) 12.60 k/uL High 1.8-7.7 [facility] Comment on above: Performed By: #### H EPXA, CBC, PTT, PT #### [facility] [address] [place] [address] [employer]chandise Presentation Manager: Ramsey Rodriguez MD Basophils/100 WBC (Bld) 0 % Normal 0-2 [facility] Comment on above: Performed By: #### H EPXA, CBC, PTT, PT #### [address] [address] Merchandise Presentation Manager: Ramsey Rodriguez MD Eosinophils (Bld) [#/Vol] 0.00 10*3/uL Normal 0.0-0.4 [facility] Comment on above: Performed By: #### H EPXA, CBC, PTT, PT #### [address] [address] Merchandise Presentation Manager: Ramsey Rodriguez MD Eosinophils/100 WBC (Bld) 0 % Low 1-4 [facility] Comment on above: Performed By: #### H EPXA, CBC, PTT, PT #### [address] [address] [employer]ch[employer] Presentation Manager: Ramsey Rodriguez MD Immature granulocytes/100 WBC (Bld) 0 % Normal 0 [facility] Comment on above: Performed By: #### H EPXA, CBC, PTT, PT #### [facility] [address] [place] [phone] Merch[employer]ise Presentation Manager: Ramsey Rodriguez MD Lymphocytes (Bld) [#/Vol] 0.67 10*3/uL Low 1.0-4.8 [facility] Comment on above: Performed By: #### H EPXA, CBC, PTT, PT #### [facility] [address] [place] [address] Merchandise Presentation Manager: Ramsey Rodriguez MD Lymphocytes/100 WBC (Bld) 5 % Low 24-44 [facility] Comment on above: Performed By: #### H EPXA, CBC, PTT, PT #### [facility] [address] [place] [phone] [employer]ch[employer] Presentation Manager: Ramsey Rodriguez MD Monocytes (Bld) [#/Vol] 0.13 10*3/uL Normal 0.1-0.8 [facility] Comment on above: Performed By: #### H EPXA, CBC, PTT, PT #### [facility] [address] [place] [phone] Merchandise Presentation Manager: Ramsey Rodriguez MD Monocytes/100 WBC (Bld) 1 % Normal 1-7 [facility] Comment on above: Performed By: #### H EPXA, CBC, PTT, PT #### [facility] [address] [place] [phone] [employer]ch[employer] Presentation Manager: Ramsey Rodriguez MD Morphology Edmond (Bld) [Interp] ANISOCYTOSIS PRESENT Normal [facility] Comment on above: Performed By: #### H EPXA, CBC, PTT, PT #### [facility] [address] [place] [address] Merchandise Presentation Manager: Ramsey Rodriguez MD Neutrophil (Seg) 94 % High 36-66 [facility] Comment on above: Performed By: #### H EPXA, CBC, PTT, PT #### [facility] [address] [place] [address] [employer]ch[employer]ise Presentation Manager: Ramsey Rodriguez MD Erythrocyte distribution width (RBC) [Ratio] 15.6 % High 11.8-14.4 [facility] Comment on above: Performed By: #### H EPXA, CBC, PTT, PT #### [facility] [address] [place] [address] Merchandise Presentation Manager: Ramsey Rodriguez MD Hematocrit (Bld) [Volume fraction] 43.6 % Normal 40.7-50.3 [facility] Comment on above: Performed By: #### H EPXA, CBC, PTT, PT #### [facility] [address] [place] [address] [employer]ch[employer]ise Presentation Manager: Ramsey Rordiguez MD Hemoglobin (Bld) [Mass/Vol] 14.0 g/dL Normal 13.0-17.0 [facility] Comment on above: Performed By: #### H EPXA, CBC, PTT, PT #### [address] [address] [employer]chandise Presentation Manager: Ramsey Rodriguez MD MCH (RBC) [Entitic mass] 30.6 pg Normal 25.2-33.5 [facility] Comment on above: Performed By: #### H EPXA, CBC, PTT, PT #### [address] [address] Merchandise Presentation Manager: Ramsey Rodriguez MD MCHC (RBC) [Mass/Vol] 32.1 g/dL Normal 28.4-34.8 [facility] Comment on above: Performed By: #### H EPXA, CBC, PTT, PT #### [address] [address] Merchandise Presentation Manager: Ramsey Rodriguez MD MCV (RBC) [Entitic vol] 95.2 fL Normal 82.6-102.9 [facility] Comment on above: Performed By: #### H EPXA, CBC, PTT, PT #### [facility] [address] [place] [address] Merchandise Presentation Manager: Ramsey Rodriguez MD NRBC Automated 0.0 per 100 WBC Normal 0.0 [facility] Comment on above: Performed By: #### H EPXA, CBC, PTT, PT #### [facility] [address] [place] [phone] Merchandise Presentation Manager: Ramsey Rodriguez MD Platelet mean volume (Bld) [Entitic vol] 10.1 fL Normal 8.1-13.5 [facility] Comment on above: Performed By: #### H EPXA, CBC, PTT, PT #### [facility] [address] [place] [address] Merchandise Presentation Manager: Ramsey Rodriguez MD Platelets (Bld) [#/Vol] 200 10*3/uL Normal 138-453 [facility] Comment on above: Performed By: #### H EPXA, CBC, PTT, PT #### [facility] [address] [place] [phone] Merchandise Presentation Manager: Ramsey Rodriguez MD RBC (Bld) [#/Vol] 4.58 10*6/uL Normal 4.21-5.77 [facility] Comment on above: Performed By: #### H EPXA, CBC, PTT, PT #### [facility] [address] [place] [phone] Merch[employer]ise Presentation Manager: Ramsey Rodriguez MD WBC (Bld) [#/Vol] 13.4 10*3/uL High 3.5-11.3 [facility] Comment on above: Performed By: #### H EPXA, CBC, PTT, PT #### [facility] [address] [place] [address] Merchandise Presentation Manager: Ramsey Rodriguez MD Comp Metabolic Profon 2023 Albumin [Mass/Vol] 3.5 g/dL Normal 3.5-5.2 [facility] Comment on above: Performed By: #### H EPXA, CBC, PTT, PT #### [facility] [address] [place] [phone] Merchandise Presentation Manager: Ramsey Rodriguez MD Albumin/Glob Ratio 1.0 Normal 1.0-2.5 [facility] Comment on above: Performed By: #### H EPXA, CBC, PTT, PT #### [facility] [address] [place] [address] Merchandise Presentation Manager: Ramsey Rodriguez MD Alkaline Phos 93 U/L Normal 40-129 [facility] Comment on above: Performed By: #### H EPXA, CBC, PTT, PT #### [facility] [address] [place] [address] Merchandise Presentation Manager: Ramsey Rodriguez MD ALT [Catalytic activity/Vol] 58 U/L High 10-50 [facility] Comment on above: Performed By: #### H EPXA, CBC, PTT, PT #### [facility] [address] [place] [address] Merchandise Presentation Manager: Ramsey Rodriguez MD Anion gap [Moles/Vol] 12 mmol/L Normal 9-16 [facility] Comment on above: Performed By: #### H EPXA, CBC, PTT, PT #### [facility] [address] [place] [address] [employer] Presentation Manager: Ramsey Rodriguez MD AST [Catalytic activity/Vol] 75 U/L High 10-50 [facility] Comment on above: Result Comment: SPEC IMEN SLIGHTLY HEMOLYZED, RESULTS MAY BE ADVERSELY AFFECTED. Performed By: #### H EPXA, CBC, PTT, PT #### [facility] [address] [place] [address] [employer]ch[employer]ise Presentation Manager: Ramsey Rodriguez MD Bilirubin [Mass/Vol] 1.1 mg/dL Normal 0.00-1.20 [facility] Comment on above: Performed By: #### H EPXA, CBC, PTT, PT #### [facility] [address] [place] [address] Merch[employer]ise Presentation Manager: Ramsey Rodriguez MD Calcium [Mass/Vol] 9.1 mg/dL Normal 8.6-10.4 [facility] Comment on above: Performed By: #### H EPXA, CBC, PTT, PT #### [facility] [address] [place] [address] Merch[employer]ise Presentation Manager: Ramsey Rodriguez MD Chloride [Moles/Vol] 100 mmol/L Normal 98-107 [facility] Comment on above: Performed By: #### H EPXA, CBC, PTT, PT #### [facility] [address] [place] [address] [phone] Merchandise Presentation Manager: Ramsey Rodriguez MD CO2 [Moles/Vol] 25 mmol/L Normal 20-31 [facility] Comment on above: Performed By: #### H EPXA, CBC, PTT, PT #### [facility] [address] [place] [phone] Merchandise Presentation Manager: Ramsey Rodriguez MD Creatinine [Mass/Vol] 0.8 mg/dL Normal 0.70-1.20 [facility] Comment on above: Performed By: #### H EPXA, CBC, PTT, PT #### [address] [address] [employer]chandise Presentation Manager: Ramsey Rodriguez MD GFR/1.73 sq M.predicted among non-blacks MDRD (S/P/Bld) [Vol rate/Area] 87 mL/min/{1.73_m2} Normal >60 [facility] Comment on above: Result Comment: [...] #### H EPXA, CBC, PTT, PT #### [address] [address] Merchandise Presentation Manager: Ramsey Rodriguez MD Glucose [Mass/Vol] 208 mg/dL High 74-99 [facility] Comment on above: Performed By: #### H EPXA, CBC, PTT, PT #### [facility] [address] [place] [phone] Merch[employer]ise Presentation Manager: Ramsey Rodriguez MD Potassium [Moles/Vol] 4.4 mmol/L Normal 3.7-5.3 [facility] Comment on above: Result Comment: SPEC IMEN SLIGHTLY HEMOLYZED, RESULTS MAY BE ADVERSELY AFFECTED. Performed By: #### H EPXA, CBC, PTT, PT #### [facility] [address] [place], [place] [phone] Merchandise Presentation Manager: Ramsey Rodriguez MD Protein [Mass/Vol] 7.9 g/dL Normal 6.6-8.7 [facility] Comment on above: Performed By: #### H EPXA, CBC, PTT, PT #### [facility] [address] [place], [place] [phone] Merchandise Presentation Manager: Ramsey Rodriguez MD Sodium [Moles/Vol] 137 mmol/L Normal 136-145 [facility] Comment on above: Performed By: #### H EPXA, CBC, PTT, PT #### [facility] [address] [place], [place] [phone] Merchandise Presentation Manager: Ramsey Rodriguez MD Urea nitrogen [Mass/Vol] 26 mg/dL High 8-23 [facility] Comment on above: Performed By: #### H EPXA, CBC, PTT, PT #### [facility] [place], [place] [phone] Merchandise Presentation Manager: Ramsey Rodriguez MD Eosinophils/100 WBC Auto (Bl d)on 08-20-2023 Eosinophils/100 WBC (Bld) 0.1 % 0.9-7.0 [facility] Erythrocyte distribution wid th Auto (RBC) [Ratio]on 08-20-2023 Erythrocyte distribution width (RBC) [Ratio] 15.2 % 11.0-15.0 [facility] Estimated glomerular filtrat ion rate (GFR) non- Americanon 08-20-2023 GFR/1.73 sq M.predicted among non-blacks MDRD (S/P/Bld) [Vol rate/Area] mL/min/{1.73_m2} >=60 [facility] Globulin Calc (S) [Mass/Vol] on 08-20-2023 Globulin (S) [Mass/Vol] 5.3 g/dL [facility] Hematocrit Auto (Bld) [Volum e fraction]on 08-20-2023 Hematocrit (Bld) [Volume fraction] 40.8 % 42.0-54.0 [facility] Hemoglobin [Mass/volume] in Bloodon 08-20-2023 Hemoglobin (Bld) [Mass/Vol] 13.3 g/dL 14.0-18.0 [facility] - Chemistry and C hemistry - challengeon 08-20-2023 Glucose (U) [Mass/Vol] Negative NEGATIVE [facility] Ketones Ql (U) Negative NEGATIVE [facility] pH (U) 5.0 [pH] 5.0-9.0 [facility] Specific gravity (U) [Rel density] 1.020 1.005-1.025 [facility] Urobilinogen Qn (U) 0.2 {Amy'U}/dL 0.2-1.0 [facility] Albumin [Mass/Vol] 3.2 g/dL 3.4-5.0 [facility] ALP [Catalytic activity/Vol] 104 U/L 46-116 [facility] ALT [Catalytic activity/Vol] 74 U/L 16-63 [facility] AST [Catalytic activity/Vol] 67 U/L 15-37 [facility] Bilirubin [Mass/Vol] 1.3 mg/dL 0.2-1.0 [facility] Calcium [Mass/Vol] 9.7 mg/dL 8.5-10.1 [facility] Chloride [Moles/Vol] 100 mmol/L 98-107 [facility] CO2 [Moles/Vol] 28.2 mmol/L 21.0-32.0 [facility] Creatinine [Mass/Vol] 1.05 mg/dL 0.70-1.30 [facility] GFR/1.73 sq M.predicted MDRD (S/P/Bld) [Vol rate/Area] mL/min/{1.73_m2} >=60 [facility] Glucose [Mass/Vol] 202 mg/dL 74-106 [facility] Lipase [Catalytic activity/Vol] 18.0 U/L 16.0-77.0 [facility] Natriuretic peptide B (Bld) [Mass/Vol] 470.0 pg/mL <=1800.0 [facility] Potassium [Moles/Vol] 3.6 mmol/L 3.5-5.1 [facility] Protein [Mass/Vol] 8.5 g/dL 6.4-8.2 [facility] Sodium [Moles/Vol] 137 mmol/L 136-145 [facility] Urea nitrogen [Mass/Vol] 30.0 mg/dL 7.0-18.0 [facility] Urea nitrogen/Creatinine [Mass ratio] 28.6 mg/mg [facility] - Hematology and Cell countson 08-20-2023 Immature granulocytes/100 WBC (Bld) 0.4 % 0.0-0.5 [facility] - Specimen inform ationon 08-20-2023 Appearance (U) CLEAR CLEAR [facility] Color (U) YELLOW YELLOW [facility] - Urinalysison Leukocyte esterase Test strip Ql (U) Negative NEGATIVE [facility] Nitrite Ql (U) Negative NEGATIVE [facility] Protein Ql (U) Negative NEG/TRACE [facility] Lactic Acidon 08-20-2023 Lactic Acid,Whole Bl 3.6 mmol/L High 0.7-2.1 [facility] Comment on above: Performed By: #### H EPXA, CBC, PTT, PT #### [facility] [address] [place] [phone] [employer] Presentation Manager: Ramsey Rodriguez MD Leukocytes [#/volume] correc александр for nucleated erythrocytes in Blood by Automated counon 08-20-2023 WBC corrected for nucl RBC Auto (Bld) [#/Vol] 15.6 10 3/uL 4.0-11.0 [facility] Lymphocytes Auto (Bld) [#/Vo l]on 08-20-2023 Lymphocytes (Bld) [#/Vol] 1.5 10 3/uL 1.2-3.8 [facility] Lymphocytes/100 WBC Auto (Bl d)on 08-20-2023 Lymphocytes/100 WBC (Bld) 9.6 % 20.5-60.0 [facility] MCH Auto (RBC) [Entitic mass ]on 08-20-2023 MCH (RBC) [Entitic mass] 30.6 pg 25.9-34.0 [facility] MCHC Auto (RBC) [Mass/Vol]on 08-20-2023 MCHC (RBC) [Mass/Vol] 32.6 g/dL 29.9-35.2 [facility] MCV Auto (RBC) [Entitic vol] on 08-20-2023 MCV (RBC) [Entitic vol] 93.8 fL 80.0-94.0 [facility] Magnesiumon 08-20-2023 Magnesium [Mass/Vol] 2.0 mg/dL Normal 1.6-2.4 [facility] Comment on above: Performed By: #### H EPXA, CBC, PTT, PT #### [employer] [address] [place], [place] [phone] Merchandise Presentation Manager: Ramsey Rodriguez MD Monocytes Auto (Bld) [#/Vol] on 08-20-2023 Monocytes (Bld) [#/Vol] 0.5 10 3/uL 0.3-0.8 [facility] Monocytes/100 WBC Auto (Bld) on 08-20-2023 Monocytes/100 WBC (Bld) 3.2 % 1.7-12.0 [facility] Neutrophils Auto (Bld) [#/Vo l]on 08-20-2023 Neutrophils (Bld) [#/Vol] 13.4 10 3/uL 1.4-6.5 [facility] Neutrophils/100 WBC Auto (Bl d)on 08-20-2023 Neutrophils/100 WBC (Bld) 86.4 % 43.0-75.0 [facility] No Panel Informationon 08-19 Urine Microscopic Review NO [facility] Eosinophils # (Auto) 0.0 10 3/uL 0.0-0.7 [facility] Immature Granulocyte # (Auto) 0.06 10 3/uL 0.00-0.03 [facility] Platelet mean volume Auto (B ld) [Entitic vol]on 08-20-2023 Platelet mean volume (Bld) [Entitic vol] 9.8 fL 9.5-13.5 [facility] Platelets Auto (Bld) [#/Vol] on 08-20-2023 Platelets (Bld) [#/Vol] 220 10 3/uL 150-450 [facility] RBC Auto (Bld) [#/Vol]on RBC (Bld) [#/Vol] 4.35 10 6/uL 4.70-6.10 [facility] [facility] Serum or plasma albumin/glob ulin mass ratioon 08-20-2023 Albumin/Globulin [Mass ratio] 0.6 {ratio} [facility] Serum or plasma anion gap de terminationon 08-20-2023 Anion gap [Moles/Vol] 12.4 mmol/L [facility] Urine hemoglobin detection b y automated test stripon 08-20-2023 Hemoglobin Auto test strip Ql (U) Negative NEGATIVE [facility] XR CHEST PORTABLEon 08-20-19 XR CHEST [...] Amada Rosario MD 08/20/23 Final result Normal [facility] CBC AUTO DIFFon 08-15-2022 BASO # 0.0 103/ul Normal 0.0-0.1 [facility] Comment on above: Performed By: #### C BC #### [facility] [address] [address] [address] Emily Lauren Basophils/100 WBC (Bld) 0.3 % Normal 0.2-2.0 [facility] Comment on above: Performed By: #### C BC #### [facility] [address] [place], [place] [address] Dr. Emily Lauren EO # 0.2 103/ul Normal 0.0-0.7 [facility] Comment on above: Performed By: #### C BC #### [facility] [address] [place] [address] Dr. Emily Lauren Eosinophils/100 WBC (Bld) 3.1 % Normal 0.9-7.0 [facility] Comment on above: Performed By: #### C BC #### [facility] [address] [place] [address] Dr. Emily Lauren Erythrocyte distribution width (RBC) [Ratio] 14.9 % Normal 11.0-15.0 [facility] Comment on above: Performed By: #### C BC #### [facility] [address] [place] [address] Dr. Emily Lauren Hematocrit (Bld) [Volume fraction] 39.9 % Critically low 42.0-54.0 [facility] Comment on above: Performed By: #### C BC #### [facility] [address] [place] [address] Dr. Emily Lauren Hemoglobin (Bld) [Mass/Vol] 12.9 g/dL Critically low 14.0-18.0 [facility] Comment on above: Performed By: #### C BC #### [facility] [address] [place] [address] Dr. Emily Lauren IG # 0.02 10e3/ul Normal 0.00-0.03 [facility] Comment on above: Performed By: #### C BC #### [facility] [address] [place] [address] Dr. Emily Lauren IG % 0.3 % Normal 0.0-0.5 [facility] Comment on above: Performed By: #### C BC #### [facility] [address] [place] [address] Dr. Emily Lauren LYMPH # 2.4 103/ul Normal 1.2-3.8 [facility] Comment on above: Performed By: #### C BC #### [facility] [address] [place] [address] Dr. Emily Lauren Lymphocytes/100 WBC (Bld) 30.7 % Normal 20.5-60.0 [facility] Comment on above: Performed By: #### C BC #### [facility] [address] [place] [address] Dr. Emily Lauren MANUAL DIFF REQ NO Normal [facility] Comment on above: Performed By: #### C BC #### [facility] [address] [place] [address] Dr. Emily Lauren MCH (RBC) [Entitic mass] 30.4 pg Normal 25.9-34.0 [facility] Comment on above: Performed By: #### C BC #### [facility] [address] [place] [address] Dr. Emily Lauren MCHC (RBC) [Mass/Vol] 32.3 g/dL Normal 29.9-35.2 [facility] Comment on above: Performed By: #### C BC #### [facility] [address] [place] [address] Dr. Emily Lauren MCV (RBC) [Entitic vol] 94.1 fL Critically high 80.0-94.0 [facility] Comment on above: Performed By: #### C BC #### [facility] [address] [place] [address] Dr. Emily Lauren MONO # 0.5 103/ul Normal 0.3-0.8 [facility] Comment on above: Performed By: #### C BC #### [facility] [address] [place] [address] Dr. Emily Lauren Monocytes/100 WBC (Bld) 5.9 % Normal 1.7-12.0 [facility] Comment on above: Performed By: #### C BC #### [facility] [address] [place] [address] Dr. Emily Lauren NEUT # 4.6 103/ul Normal 1.4-6.5 [facility] Comment on above: Performed By: #### C BC #### [facility] [address] [place] [address] Dr. Emily Lauren Neutrophils/100 WBC (Bld) 59.7 % Normal 43.0-75.0 [facility] Comment on above: Performed By: #### C BC #### [facility] [address] [address] [address] Emily Lauren Platelet mean volume (Bld) [Entitic vol] 9.7 fL Normal 9.5-13.5 [facility] Comment on above: Performed By: #### C BC #### [facility] [address] [address] [address] Emily Lauren PLT 176 103/ul Normal 150-450 [facility] Comment on above: Performed By: #### C BC #### [facility] [address] [address] [address] Emily Lauren RBC 4.24 106/ul Critically low 4.70-6.10 [facility] Comment on above: Performed By: #### C BC #### [facility] [address] [place] [address] Dr. Emily Lauren WBC 7.7 103/ul Normal 4.0-11.0 [facility] Comment on above: Performed By: #### C BC #### [facility] [address] [place] [address] Dr. Emily Lauren PROF 14(COMP METB)on 023 Albumin [Mass/Vol] 3.4 g/dL Normal 3.4-5.0 [facility] Comment on above: Performed By: #### C MP #### [facility] [address] [place] [address] Dr. Emily Lauren Albumin/Globulin [Mass ratio] 0.8 {ratio} Normal [facility] Comment on above: Performed By: #### C MP #### [facility] [address] [place] [address] Dr. Emily Lauren ALP [Catalytic activity/Vol] 81 U/L Normal 46-116 [facility] Comment on above: Performed By: #### C MP #### [facility] [address] [place] [address] Dr. Emily Lauren ALT [Catalytic activity/Vol] 44 U/L Normal 16-63 [facility] Comment on above: Performed By: #### C MP #### [facility] [address] [address] [address] Emily Lauren Anion gap [Moles/Vol] 11.3 mmol/L Normal [facility] Comment on above: Performed By: #### C MP #### [facility] [address] [address] [address] Emily Lauren AST [Catalytic activity/Vol] 41 U/L Critically high 15-37 [facility] Comment on above: Performed By: #### C MP #### [facility] [address] [address] [address] Emily Lauren Bilirubin [Mass/Vol] 1.4 mg/dL Critically high 0.2-1.0 [facility] Comment on above: Performed By: #### C MP #### [facility] [address] [address] [address] Emily Lauren Calcium [Mass/Vol] 9.2 mg/dL Normal 8.5-10.1 [facility] Comment on above: Performed By: #### C MP #### [facility] [address] [address] [address] Emily Lauren Chloride [Moles/Vol] 106 mmol/L Normal 98-107 [facility] Comment on above: Performed By: #### C MP #### [facility] [address] [address] [address] Emily Lauren CO2 [Moles/Vol] 29.8 mmol/L Normal 21.0-32.0 [facility] Comment on above: Performed By: #### C MP #### [facility] [address] [place] [address] Dr. Emily Lauren Creatinine [Mass/Vol] 0.83 mg/dL Normal 0.70-1.30 [facility] Comment on above: Performed By: #### C MP #### [facility] [address] [place] [address] Dr. Emily Lauren EGFR-AF BRAZILIAN >60 Normal >=60 [facility] Comment on above: Performed By: #### C MP #### [facility] [address] [address] [address] Emily Lauren EGFR-NON AF BRAZILIAN >60 Normal >=60 [facility] Comment on above: Performed By: #### C MP #### [facility] [address] [address] [address] Emily Lauren Globulin (S) [Mass/Vol] 4.2 g/dL Normal [facility] Comment on above: Performed By: #### C MP #### [facility] [address] [address] [address] Emily Lauren Glucose [Mass/Vol] 80 mg/dL Normal 74-106 [facility] Comment on above: Performed By: #### C MP #### [facility] [address] [address] [address] Emily Lauren Potassium [Moles/Vol] 4.1 mmol/L Normal 3.5-5.1 [facility] Comment on above: Performed By: #### C MP #### [facility] [address] [address] [address] Emily Lauren Protein [Mass/Vol] 7.6 g/dL Normal 6.4-8.2 [facility] Comment on above: Performed By: #### C MP #### [facility] [address] [address] [address] Emily Lauren Sodium [Moles/Vol] 143 mmol/L Normal 136-145 [facility] Comment on above: Performed By: #### C MP #### [facility] [address] [address] [address] Emily Lauren Urea nitrogen [Mass/Vol] 26.0 mg/dL Critically high 7.0-18.0 [facility] Comment on above: Performed By: #### C MP #### [facility] [address] [address] [address] Emily aLuren Urea nitrogen/Creatinine [Mass ratio] 31.3 mg/mg Normal [facility] Comment on above: Performed By: #### C MP #### [facility] [address] [address] [address] Emily Lauren Vital Signs Date Time Vital Sign Value Performing Clinician Facility 12-13-2023 14:39-0400 Body height 175.26 cm [facility] 12-13-2023 14:39-0400 Body mass index (BMI) [Ratio] 23.5 kg/m2 [facility] 12-13-2023 14:39-0400 Body weight 72.17 kg [facility] 12-13-2023 14:39-0400 Diastolic blood pressure 68 mm[Hg] [facility] 12-13-2023 14:39-0400 Heart rate 68 /min [facility] 12-13-2023 14:39-0400 Systolic blood pressure 121 mm[Hg] [facility] 10-03-2023 15:59-0400 Body height 175.26 cm [facility] 10-03-2023 15:59-0400 Body mass index (BMI) [Ratio] 23.8 kg/m2 [facility] 10-03-2023 15:59-0400 Body weight 73.02 kg [facility] 10-03-2023 15:59-0400 Diastolic blood pressure 72 mm[Hg] [facility] 10-03-2023 15:59-0400 Heart rate 64 /min [facility] 10-03-2023 15:59-0400 Respiratory rate 12 /min [facility] 10-03-2023 15:59-0400 Systolic blood pressure 119 mm[Hg] [facility] 06-14-2023 14:52-0500 Body height 175.26 cm [facility] 06-14-2023 14:52-0500 Body mass index (BMI) [Ratio] 25.2 kg/m2 [facility] 06-14-2023 14:52-0500 Body weight 77.67 kg [facility] 06-14-2023 14:52-0500 Diastolic blood pressure 77 mm[Hg] [facility] 06-14-2023 14:52-0500 Heart rate 66 /min [facility] 06-14-2023 14:52-0500 Systolic blood pressure 128 mm[Hg] [facility] 02-22-2023 13:30-0400 Body height 175.26 cm [facility] Other [facility] Other 02-22-2023 13:30-0400 Body mass index (BMI) [Ratio] 27.82 kg/m2 [facility] Other [facility] Other 02-22-2023 13:30-0400 Body weight 85.46 kg [facility] Other [facility] Other 02-22-2023 13:30-0400 Diastolic blood pressure 70 mm[Hg] [facility] Other [facility] Other 02-22-2023 13:30-0400 Respiratory rate 12 /min [facility] Other [facility] Other 02-22-2023 13:30-0400 Systolic blood pressure 109 mm[Hg] [facility] Other [facility] Other 08-14-2022 12:00-0400 Body height 175.26 cm [facility] Other [facility] Other 08-14-2022 12:00-0400 Body mass index (BMI) [Ratio] 28.29 kg/m2 [facility] Other [facility] Other 08-14-2022 12:00-0400 Body weight 86.91 kg [facility] Other [facility] Other 08-14-2022 12:00-0400 Diastolic blood pressure 80 mm[Hg] [facility] Other [facility] Other 08-14-2022 12:00-0400 Respiratory rate 20 /min [facility] Other [facility] Other 04-25-2023 12:00-0400 Systolic blood pressure 126 mm[Hg] [facility] Other [facility] Other Encounters Encounter Date Encounter Type Care Provider Facility Start: 12-13-2023 End: 12-13-2023 ambulatory [facility] Work Phone: Start: 12-13-2023 End: 12-13-2023 Patient encounter procedure [facility]ician [facility] Work Phone: Start: 12-12-2023 End: 12-12-2023 ambulatory P[facility]O SPRAGUE Not Available Start: 12-04-2023 Non-patient / Non-visit [facility] Work Phone: Start: 10-23-2023 Non-patient / Non-visit [facility] Work Phone: Start: 10-03-2023 End: 10-03-2023 ambulatory [facility] Work Phone: Start: 10-03-2023 End: 10-03-2023 Patient encounter procedure [facility] Work Phone: Start: 09-27-2023 Non-patient / Non-visit [facility]ician [facility] Work Phone: Start: 09-26-2023 End: 09-26-2023 ambulatory PITO SPRAGUE Not Available Start: 09-05-2023 Non-patient / Non-visit [facility] Physician [facility] Work Phone: Start: 08-20-2023 End: 09-02-2023 Evaluation and management of inpatient [facility] Start: 08-20-2023 Non-patient / Non-visit [facility] Physician [facility] Work Phone: Start: 06-20-2023 End: 06-20-2023 ambulatory PITO SPRAGUE Not Available Start: 06-14-2023 End: 06-14-2023 ambulatory [facility] Work Phone: Start: 06-14-2023 End: 06-14-2023 Patient encounter procedure [facility] Work Phone: Start: 04-26-2023 End: 04-26-2023 ambulatory Flex Isaacs Other [facility] Other Start: 04-26-2023 Telephone encounter Flex Isaacs [facility] Start: 04-11-2023 End: 04-11-2023 ambulatory PITO Gayle CELESTINE Not Available Start: 04-05-2023 End: 04-05-2023 ambulatory Flex Isaacs Other [facility] Other Start: 04-05-2023 Telephone encounter Flex Isaacs [facility] Start: 03-19-2023 End: 03-19-2023 ambulatory Flex Isaacs Other [facility] Other Start: 03-19-2023 Telephone encounter Flex Isaacs [facility] Start: 03-07-2023 End: 03-07-2023 ambulatory Flex Isaacs Other [facility] Other Start: 03-07-2023 Home visit est pt mod-hi severity 40 minutes Flex Isaacs [facility] Start: 03-06-2023 End: 03-06-2023 ambulatory Flex Isaacs Other [facility] Other Start: 03-06-2023 Telephone encounter Flex Isaacs [facility] Start: 03-05-2023 End: 03-05-2023 ambulatory Flex Isaacs Other [facility] Other Start: 03-05-2023 Telephone encounter Flex Isaacs [facility] Start: 02-28-2023 End: 02-28-2023 ambulatory Kamilla Vieira Other [facility] Other Start: 02-28-2023 Nursing evaluation o f patient and report Kamilla Mónicacristina [facility] Start: 02-22-2023 End: 02-22-2023 ambulatory Flex Isaacs Other [facility] Other Start: 02-22-2023 Transitional care manage srvc 14 day discharge Flex Isaacs [facility] Start: 02-20-2023 End: 02-20-2023 ambulatory Flex Isaacs Other [facility] Other Start: 02-20-2023 Telephone encounter [facility] Start: 02-11-2023 End: 02-11-2023 ambulatory Flex Ferny Other [facility] Other Start: 02-11-2023 Telephone encounter [facility] Start: 01-03-2023 End: 01-03-2023 ambulatory Flex Isaacs Other [facility] Other Start: 01-03-2023 Telephone encounter Flex [facility] Start: 01-02-2023 End: 01-02-2023 ambulatory Flex Isaacs Other [facility] Other Start: 01-02-2023 Telephone encounter Flex Ball [facility] Start: 01-01-2023 End: 01-01-2023 ambulatory Flex Isaacs Other [facility] Other Start: 01-01-2023 Telephone encounter Flex Ball [facility] Start: 12-31-2022 End: 12-31-2022 ambulatory Flex Ball Other [facility] Other Start: 12-31-2022 Telephone encounter Flex Ball [facility] Start: 12-10-2022 End: 12-10-2022 ambulatory Flex Ball Other [facility] Other Start: 12-10-2022 Telephone encounter Flex Ball [facility] Start: 12-09-2022 End: 12-09-2022 ambulatory Flex Isaacs Other [facility] Other Start: 12-09-2022 Telephone encounter Flex HIGUERA [facility] Start: 10-04-2022 End: 10-04-2022 ambulatory Flex Isaacs Other [facility] Other Start: 10-04-2022 Telephone encounter Flex Isaacs [facility] Start: 08-16-2022 End: 08-16-2022 ambulatory Flex Isaacs Other [facility] Other Start: 08-16-2022 Telephone encounter Flex HIGUERA [facility] Start: 08-15-2022 Telephone encounter Flex HIGUERA [facility] Start: 08-15-2022 End: 08-16-2022 ambulatory FLEX FERNY [facility] Other Start: 08-14-2022 End: 08-14-2022 ambulatory Flex Isaacs Other [facility] Other Start: 08-14-2022 Patient encounter procedure Flex Isaacs [facility] Start: 05-20-2019 Adult health examination Flex Isaacs Other [facility] Other Procedures Date Procedure Procedure Detail Performing Clinician Start: 07-03-2017 Diabetes mellitus screening [facility] Other Start: 11-15-2015 Screening for malign ant neoplasm of colon [facility] Other Screening for malign ant neoplasm of prostate [facility] Other Plan of Treatment Date Care Activity Detail Author XR Chest 2 Views [facility] Immunizations Immunization Date Immunization Notes Care Provider Brando higgins 02-28-2023 influenza, high dose seasonal, preservative-free Flex [facility]acs Other [facility] Other 02-28-2023 influenza virus vaccine, unspecified formulation [facility] 04-11-2022 influenza, injectabl e, quadrivalent, preservative free [facility] Other [facility] 02-23-2021 COVID-19 Vaccine Moderna - Documentation Purposes Only [facility] Other [facility] 06-17-2020 COVID-19 Vaccine Moderna - Documentation Purposes Only Flex [facility] Other [facility] 05-20-2020 COVID-19 Vaccine Moderna - Documentation Purposes Only [facility] Other [facility] 07-03-2017 pneumococcal conjuga te vaccine, 13 valent [facility] Other [facility] 07-03-2017 pneumococcal Conjuga te, unspecified formulation; Translations: [Need for prophylactic vaccination against Streptococcus pneumoniae (pneumococcus)] [facility] Other [facility] Other 03-07-2017 influenza virus vaccine, split virus (incl. purified surface antigen) Flex Isaacs Other [facility] Other 03-07-2017 influenza virus vaccine, unspecified formulation [facility] 03-28-2016 influenza virus vaccine, split virus (incl. purified surface antigen) Flex Isaacs Other [facility] Other 03-28-2016 influenza virus vaccine, unspecified formulation [facility] 03-08-2015 influenza virus vaccine, split virus (incl. purified surface antigen) Flex Isaacs Other [facility] Other 03-08-2015 influenza virus vaccine, unspecified formulation [facility] 04-09-2013 tetanus and diphther ia toxoids, adsorbed, preservative free, for adult use (5 Lf of tetanus toxoid and 2 Lf of diphtheria toxoid) [facility] Other [facility] 01-28-2013 tetanus and diphther ia toxoids, adsorbed, preservative free, for adult use (5 Lf of tetanus toxoid and 2 Lf of diphtheria toxoid) [facility] Other [facility] 03-29-2010 pneumococcal polysaccharide vaccine, 23 valent [facility] Other [facility] Payers Date Payer Category Payer Unknown [id number] 2018 Unknown [id number] 1961 Medicare [id number] 1940 Unknown [id number] 1938 Unknown [id number] 1938 Unknown [id number] 1938 Unknown [id number] 1938 Unknown [id number] 1938 Unknown [id number] Private Health Insurance [employer] [id number] Social History Date Type Detail Facility Sex Assigned At [facility] [employer] Other Start: 1940 Sex Assigned At Male F [facility] Start: 12-13-2023 Tobacco smoking stat us NHIS Never smoked tobacco (finding) [facility] Clinical Notes 08-14-2022 to 04-26-2023 Note Date & Type Note Facility 04-26-2023 Evaluation note Encounter Date Diagnosis Assessment Notes Apr, Acute deep vein thrombosis (DVT) of right peroneal vein (ICD-10 - I82.451) [facility] [employer] Other [id number] Evaluation note* Encounter Date Diagnosis Assessment Notes [...] for 6months. Check DDimer and venous US. [facility] Other 11-14-2023 Evaluation note* Encounter Date Diagnosis Assessment Notes Treatment Notes Treatment Clinical Notes Feb, Closed fracture of one rib of right side with routine healing, subsequent encounter (ICD-10 - S22.31XD) [facility] Other 11-09-2023 Evaluation note* Encounter Date Diagnosis Assessment Notes Treatment Notes Treatment Clinical Notes Feb, Need for vaccination (ICD-10 - Z23) [facility] Other 11-03-2023 Evaluation note* Encounter Date Diagnosis [...] - E44.0) Protein/calorie supplements daily. Monitor weight. [facility] Other 08-21-2023 Evaluation note* Encounter Date Diagnosis Assessment Notes Treatment Notes Treatment Clinical Notes Nov, Acute deep vein thrombosis (DVT) of left peroneal vein (ICD-10 - I82.452) Nov, Pressure injury of deep tissue of sacral region (ICD-10 - L89.156) Nov, Skin ulcer of heel, limited to breakdown of skin, unspecified laterality (ICD-10 - L97.401) [facility] Other 04-26-2023 NotePROCEDURE: XR HAND MEEK MIN [...] Electronically authenticated by: ROHINI PEARSON Date: 2022-08-15 11:57[facility]04-25-2023 Evaluation note* Encounter Date Diagnosis [...] Jul, Fatigue, unspecified type (ICD-10 - R53.83) [facility] Other Evaluation noteNo [employer] Other Evaluation note* Diagnosis Onset Date Resolution Status Anemia acute Chronic venous insufficiency acute Lumbar spondylosis acute Pharyngoesophageal dysphagia acute Pulmonary hypertension acute Right rib fracture acute [facility] Work Phone: Evaluation note* Diagnosis Onset Date Resolution Status Chronic bronchitis acute Chronic venous insufficiency acute HAP (hospital-acquired pneumonia) acute Hx of small bowel obstruction acute Lumbar spondylosis acute Pharyngoesophageal dysphagia acute Pulmonary hypertension acute [facility] Work Phone: Evaluation note* Diagnosis Onset Date Resolution Status Benign p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 acute Chronic bronchitis acute Chronic venous insufficiency acute Lumbar spondylosis acute Pharyngoesophageal dysphagia acute Pulmonary hypertension acute Hx of small bowel obstruction resolved Benign p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 acute Chronic bronchitis acute Chronic venous insufficiency acute Pulmonary hypertension acute Medicare annual wellness visit, subsequent noneactive [facility] Work Phone: [employer] general Narrative - Reported* Type Description Date Medical History Diarrhea Medical History Chronic venous insufficiency Medical History 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 Medical History Seasonal allergic rhinitis due t o pollen Surgical History CHOLECYSTECTOMY Surgical History APPENDECTOMY Surgical History TONSILLECTOMY Surgical History LEFT KNEE ARTHROSCOPY Hospitalization History SEE SURGICAL HX [facility] Other [facility] general Narrative - Reported* Type Description Date [...] KNEE ARTHROSCOPY Hospitalization History SEE SURGICAL HX [facility] Other History general Narrative - Reported* Type [...] KNEE ARTHROSCOPY Hospitalization History SEE SURGICAL HX [facility] Other History general Narrative - Reported* Type [...] 01/09 23 Hospitalization History SEE SURGICAL HX [facility] Other Hisqsav general Narrative - Reported* Type Description Date [...] 01/09 23 Hospitalization History SEE SURGICAL HX [employer] Other Summary Purpose Family History No Family [...] obstruction Lumbar spondylosis Pharyngoesophageal dysphagia Pulmonary hypertension Chief Complaint Amb Documentation SNF follow up 6 MONTH CHECK UP Reason for Visit Benign prostatic hyp erplasia with lower urinary tract symptoms Chronic bronchitis Chronic venous insufficiency Lumbar spondylosis Pharyngoesophageal dysphagia Pulmonary hypertension Hx of small bowel obstruction Benign p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 Chronic bronchitis Chronic venous insufficiency Pulmonary hypertension Medicare annual wellness visit, subsequent Additional Source Comments REASON FOR VISIT (unrecogniz ed section and content) check upXray resultsLab Resu ltsTCMUpdateNo InformationDental ClearanceVETERANS [facility] [place]UpdateNo InformationNo InformationtcmTCMD/C [facility] ON 02/19UpdateNo InformationAt WillowsWillowsflu shotMBS resultsSpeech Therapyrefill (unrecognized sect ion and content) No Status Records FoundNo Status Records FoundNo Status Records Found INFORMATION SOURCE (unrecogn ized section and content) DATE CREATED AUTHOR 08/19/2022 [facility] DATE CREATED AUTHOR AUTHOR'S ORGANIZ ATION 10/12/2023 [facility] DATE CREATED AUTHOR AUTHOR'S ORGANIZ ATION 12/14/2023 [facility] EPIC Care Teams (unrecognized sec tion and content) Team Status: Active Member Role Status Dates Flex Isaacs DO Primary Care Provider Active Team Status: Active Member Role Status Dates Flex Isaacs DO Primary Care Provide r, Attending Provider Active Start: August 20, 2023 Team Status: Active Member Role Status Dates Flex Isaacs DO Primary Care Provide r, Attending Provider Active Start: September 05, 2023 Team Status: Active Member Role Status Dates Flex Isaacs DO Primary Care Provider Active Start: September 27, 2023 DONALD Scruggs Attending Provider Active St art: September 27, 2023 Team Status: Inactive Member Role Status Dates Flex Isaacs DO Primary Care Provide r, Attending Provider Active Start: October 03, 2023 End: October 03, 2023 Team Status: Inactive Member Role Status Dates Flex Isaacs DO Primary Care Provide r, Attending Provider Active Start: June 14, 2023 End: June 14, 2023 Team Status: Active Member Role Status Dates Flex Isaacs DO Primary Care Provide r, Attending Provider Active Start: October 23, 2023 Team Status: Active Member Role Status Dates Flex Isaacs DO Primary Care Provide r, Attending Provider Active Start: December 04, 2023 Team Status: Inactive Member Role Status Dates Flex Isaacs , DO Primary Care Provide r, Attending Provider Active Start: December 13, 2023 End: December 13, 2023 Goals (unrecognized section and content) Goals [...] BE BASED ON THE PRIMARY CLINICAL RECORDS. [employer] provides no warranty or guarantee of the accuracy or completeness of information in this document.
[2024-02-17 08:55] LABS: PCO2 VBG 48.9 mmHg (40.0-52.0); pH VBG 7.396 (7.330-7.430)
[2024-02-17 08:58] LABS: Basophils Percent Auto 0.5 % (0.2-2.0); Eosinophils Absolute Auto 0.1 10^3/uL (0.0-0.7); Eosinophils Percent Auto 2.5 % (0.9-7.0); Hematocrit 34.7 % (42.0-54.0); Hemoglobin 11.2 g/dL (14.0-18.0); Immature Granulocytes Abs Auto 0.07 10^3/uL (0.00-0.03); Immature Granulocytes Pct Auto 1.8 % (0.0-0.5); Lymphocytes Absolute Auto 1.4 10^3/uL (1.2-3.8); Lymphocytes Percent Auto 34.3 % (20.5-60.0); Mean Corpuscular HGB Conc 32.3 g/dL (29.9-35.2); Mean Corpuscular Hemoglobin 29.9 pg (25.9-34.0); Mean Corpuscular Volume 92.5 fL (80.0-94.0); Mean Platelet Volume 10.6 fL (9.5-13.5); Monocytes Absolute Auto 0.2 10^3/uL (0.3-0.8); Monocytes Percent Auto 4.5 % (1.7-12.0); Neutrophils Absolute Auto 2.3 10^3/uL (1.4-6.5); Neutrophils Percent Auto 56.4 % (43.0-75.0); Platelet Count 83 10^3/uL (150-450); Red Blood Count 3.75 10^6/uL (4.70-6.10); Red Cell Distribution Width 16.9 % (11.0-15.0)
--- NOTE | 2024-02-17 09:01 | PC.NURSE ---
Pt fell this am, believes he was on floor for approx 1 hr. He then was able to hit his life alert button and EMS arrived. Pt states he just got off balance and denies any dizziness. only c/o R shoulder pain.
[2024-02-17 09:13] LABS: Lactate/Lactic Acid 0.9 mmol/L (0.4-2.0)
[2024-02-17] MEDS: 0.9 % SODIUM CHLORIDE 1,000 ML 999 ML IV (09:21)
[2024-02-17 09:22] LABS: Alanine Aminotransferase 130 U/L (16-63); Albumin Globulin Ratio 0.4; Albumin Level 2.5 g/dL (3.4-5.0); Alkaline Phosphatase 123 U/L (46-116); Anion Gap 11.1; Aspartate Amino Transferase 118 U/L (15-37); BUN Creatinine Ratio 42.9; Bilirubin Total 0.8 mg/dL (0.2-1.0); Calcium 8.8 mg/dL (8.5-10.1); Carbon Dioxide 27.9 mmol/L (21.0-32.0); Chloride 106 mmol/L (98-107); Estimated GFR (African America >60 (>=60 mL/min/1.73m^2); Estimated GFR (Non-African Ame >60 (>=60 mL/min/1.73m^2); Globulin 5.8 g/dL; Glucose 114 mg/dL (74-106); Sodium 141 mmol/L (136-145); Total Protein 8.3 g/dL (6.4-8.2); Troponin I High Sensitivity 14.6 pg/mL (4.0-76.1)
[2024-02-17 09:27] LABS: Creatine Kinase 199 U/L (39-308); Magnesium 1.8 mg/dL (1.8-2.4)
[2024-02-17] MEDS: PIPERACILLIN SODIUM/TAZOBACTAM 3.375 GM in 0.9 % SODIUM CHLORIDE 50 ML IV ×2 (10:21→17:43)
[2024-02-17] MEDS: 0.9 % SODIUM CHLORIDE 1,000 ML 1000 ML IV (10:52)
[2024-02-17 11:21] LABS: Influenza Virus A Antigen Negative; Influenza Virus B Antigen Negative; Internal Control Within Normal Limits; SARS-CoV-2 Ag NEGATIVE (NEGATIVE)
--- NOTE | 2024-02-17 11:41 | P.HP_ITS ---
HPI H&P: HPI History of Present Illness Chief complaint: UPPER EXTREMITY PAIN/FALL; HYPOTHERMIA Narrative: Patient is a very pleasant 83 y.o white male with past medical history of COPD, Iron deficiency, BPH who presented to the ER after suffering a fall at home today. He fell near his entry way inside his foyer. He has life alert and EMS was notified. Patient was down maybe 20-30 min before EMS arrived. He said he just tripped and lost his footing. He had his walker there. He denies LOC or neck pain. Arrival to the ER patient complained of right arm pain. He has prior history of falls, hip fracture and rib fractures in the past. ER findings: CT head and neck negative for acute findings, Xray of the humerus, elbow and shoulder showed a displaced clavicular fracture on the right. Patient was placed in a sling. Vitals were stable other than patient had hypothermia and temp rectally was found to be 91 degrees. At the time of admission exam he complained of right arm pain and some pain mid back across his back. he is right hand dominant so mobility will be limited for a awhile. He was treated with a bear hugger and warm fluids and temp came up to 96 before arriving on the floor. He was given pain control and [place] seemed to improve his pain. His son is also present at bedside. All agree with DNR CCA status we have on file. They are amendable to going to the [place] if needed. Opioid HPI Opioid Management Most Recent Pain and Opioid Data: Last Pain Scale 8 02/17/24 14:38 02/17/24 Last Pain Intensity 2 02/17/24 14:24 02/17/24 Last Pain Assessment 02/17/24 14:24 Last Pain Assessment 02/17/24 14:00 Last MAR Pain Assessment 02/17/24 14:38 Last ORT Total Score 3 02/17/24 12:15 02/17/24 Last ORT Risk Category Low Risk 02/17/24 12:15 02/17/24 Review of Systems ROS Narrative ROS: a complete review of systems were reviewed with patient and are positive as below or listed in History of Chief Complaint. General: no fever, chills, night sweats Head: no headache, trauma, visual changes, nausea or vomiting Skin: no reported rashes, itching or sores Eyes: no blurriness of vision Ears: no reported hearing loss, vertigo, earache, or tinnitus Throat: no sore throat, hoarseness, swelling of neck, or tongue pain Heart: no chest pain Lungs: no shortness of breath, slight cough GI: no diarrhea or vomiting/nausea Urinary: no urinary urgency, frequency or pain Neuro: no numbness or tingling, pain in the right arm HEM: no bleeding issues or bruising ENDO: no thyroid problems Psych: no anxiety or depression PFSH PFSH Medical History (Updated 02/17/24 @ 15:35 by Erma Birch DO) BPH (benign prostatic hyperplasia) ?N40.0 - Benign prostatic hyperplasia without lower urinary tract symptoms (ICD-10) Peripheral edema ?R60.9 - Edema, unspecified (ICD-10) DVT (deep venous thrombosis) ?I82.409 - Acute embolism and thrombosis of unspecified deep veins of unspecified lower extremity (ICD-10) Old lacunar stroke without late effect ?Z86.73 - Personal history of transient ischemic attack (TIA), and cerebral infarction without residual deficits (ICD-10) Low back pain ?M54.50 - Low back pain, unspecified (ICD-10) Stage II pressure ulcer ?L89.92 - Pressure ulcer of unspecified site, stage 2 (ICD-10) Head injury ?S09.90XA - Unspecified injury of head, initial encounter (ICD-10) Elevated bilirubin ?R17 - Unspecified jaundice (ICD-10) Decubitus ulcer of ankle, stage 2 ?L89.502 - Pressure ulcer of unspecified ankle, stage 2 (ICD-10) Abrasion of scalp ?S00.01XA - Abrasion of scalp, initial encounter (ICD-10) Surgical History (Updated 08/20/23 @ 19:06 by Ruthann Delatorre) History of cholecystectomy ?Z90.49 - Acquired absence of other specified parts of digestive tract (ICD- 10) Hx of appendectomy ?Z90.49 - Acquired absence of other specified parts of digestive tract (ICD- 10) History of partial replacement of left hip joint using bipolar prosthesis ?Z96.642 - Presence of left artificial hip joint (ICD-10) History of knee replacement ?Z96.659 - Presence of unspecified artificial knee joint (ICD-10) Social History Within the past year, how often did you have a drink containing alcohol: monthly or less Smoking status: Former smoker Little interest or pleasure in doing things: not at all Feeling down, depressed, or hopeless: not at all Meds Home Medications and Allergies Home Medications ?Medication ?Instructions ?Recorded ?Confirmed ?Type acetaminophen 325 mg tablet 650 mg (2 x 325 mg) PO Q6H PRN 03/05/23 08/20/23 Rx Moderate pain #90 tabs albuterol sulfate 1.25 mg/3 mL 3 mg inhalation BID 02/17/24 02/17/24 History solution for nebulization aspirin 81 mg capsule 81 mg PO DAILY 02/17/24 02/17/24 History folic acid 1 mg tablet 1 mg PO QDAY 02/17/24 02/17/24 History polysaccharide iron complex 150 mg 150 mg PO DAILY 02/17/24 02/17/24 History iron capsule (Ferrex) tamsulosin 0.4 mg capsule 0.4 mg PO Q24H 02/17/24 02/17/24 History Allergies Allergy/AdvReac Type Severity Reaction Status Date / Time No Known Drug Allergies Allergy Verified 02/17/24 08:21 Exam Narrative Exam Narrative: General: Patient is alert, and oriented to person, place and time with normal affect, proper hygiene Skin: no visible rashes, or ulcers Head: atraumatic, acephalic Eyes: PERRLA, no nystagmus present, conjunctiva clear, no scleral icterus Ears: normal Tympanic Membrane, normal gross auditory acuity Nose: symmetric, no discharge, no maxillary or frontal sinus tenderness Mouth/Throat: no erythema, exudate, or tonsillar enlargement,dentures Neck: no masses palpated, normal thyroid, no JVD or audible carotid bruits Heart: Normal rate and rhythm, no murmurs/rubs/gallops Lungs: no audible wheezes, crackles and normal breath sounds all lung lizarraga Abdomen: Normal audible bowel sounds, no distension, No palpable masses, no organomegaly, no rebound/guarding/ or rigidity Musculoskeletal: muscle atrophy noted, ROM is limited due to being in hospital bed, no swelling bilateral lower extremities, back had no signs of ecchymosis, there is a healing scar on the tailbone. Right arm is in a sling. Neuro: CN II-X grossly intact Constitutional Vital Signs, click to edit/add: Last Vital Signs Temp 92.2 F L 02/17/24 09:55 Pulse 59 L 02/17/24 10:32 Resp 18 02/17/24 08:40 BP 94/53 02/17/24 10:30 Pulse Ox 97 02/17/24 10:32 O2 Del Method Room Air 02/17/24 08:23 Results Labs Labs: Short CBC 02/17/24 Range/Units 08:40 WBC 4.0 (4.0-11.0) 10^3/uL Hgb 11.2 L (14.0-18.0) g/dL Hct 34.7 L (42.0-54.0) % Plt Count 83 L (150-450) 10^3/uL BMP 02/17/24 08:40 Sodium 141 Potassium 4.0 Chloride 106 Carbon Dioxide 27.9 BUN 30.0 H Creatinine 0.70 Glucose 114 H Calcium 8.8 Cardiac Enzymes 02/17/24 Range/Units 08:40 Total Creatine Kinase 199 (39-308) U/L Liver Function 02/17/24 Range/Units 08:40 Total Bilirubin 0.8 (0.2-1.0) mg/dL AST 118 H (15-37) U/L ALT 130 H (16-63) U/L Alkaline Phosphatase 123 H (46-116) U/L Albumin 2.5 L (3.4-5.0) g/dL ABG ABG results: 02/17/24 08:40 VBG pH 7.396 VBG pCO2 48.9 Assessment and Plan Assessment and Plan (1) Closed fracture of right clavicle: Assessment and Plan: continue immobilizer with sling; Ortho consult, pain control, PT/OT consult. Dominant hand/arm. Qualifiers: Encounter type: initial encounter Clavicle location: lateral end Fracture alignment: displaced Qualified Code(s): S42.031A - Displaced fracture of lateral end of right clavicle, initial encounter for closed fracture (2) Hypothermia: Assessment and Plan: from fall, rule out other causes. UA normal, blood cultures pending, urine culture pending, WBC's ok, normal lactate and CK level, electrolytes normal, magnesium normal, thyroid TSH elevated. Temp up to 96 after bear hugger and warm fluids. continue Zosyn Qualifiers: Encounter type: initial encounter Qualified Code(s): T68.XXXA - Hypothermia, initial encounter (3) Fall (on) (from) other stairs and steps, subsequent encounter: Assessment and Plan: cause for 1 &2 (4) BPH (benign prostatic hyperplasia): Assessment and Plan: continue flomax Qualifiers: Lower urinary tract symptom presence: unspecified whether lower urinary tract symptoms present Qualified Code(s): N40.0 - Benign prostatic hyperplasia without lower urinary tract symptoms Plan Patient is a DNR CCA continue Lovenox for DVT prophylaxis Patient is inpatient status and is expected to cross 2 midnights for medically necessary hospital care.
[2024-02-17 12:09] LABS: Magnesium 1.8 mg/dL (1.8-2.4); Thyroid Stimulating Hormone 4.696 uIU/mL (0.358-3.740)
[2024-02-17 12:58] LABS: Bilirubin Urine NEGATIVE (NEGATIVE); Blood Urine NEGATIVE (NEGATIVE); Clarity Urine CLEAR (CLEAR); Color Urine LT. YELLOW (YELLOW); Glucose Urine UA NEGATIVE (NEGATIVE); Ketones Urine NEGATIVE (NEGATIVE); Leukocyte Esterase Urine NEGATIVE (NEGATIVE); Nitrite Urine NEGATIVE (NEGATIVE); Protein Urine NEGATIVE (NEG/TRACE); Specific Gravity Urine 1.025 (1.005-1.025); Urobilinogen Urine 0.2 EU/dL (0.2-1.0); pH Urine 5.5 (5.0-9.0)
[2024-02-17 13:06] LABS: WBC Urine 0-2 #/HPF (NONE SEEN)
[2024-02-17 13:07] LABS: Bacteria Urine TRACE #/HPF (NONE SEEN); Mucus Urine SMALL (NONE SEEN); RBC Urine 0-2 #/HPF (0-2)
[2024-02-17 13:08] LABS: Cast Seen? SEEN #/LPF (NONE SEEN); Crystals Seen? None Seen #/HPF (None Seen); Hyaline Casts Urine RARE; Squamous Epithelial Cell Urine NONE SEEN #/LPF (NONE/RARE); Urine Culture Indicated ALREADY ORDERED
[2024-02-17] MEDS: LACTATED RINGER'S SOLUTION 1,000 ML 75 ML IV (13:46)
[2024-02-17] MEDS: HYDROCODONE/ACET 5-325 MG TABLET 1 TAB PO ×2 (14:38→20:10)
--- NOTE | 2024-02-17 15:15 | SWNOTE1 ---
Important Message from Medicare reviewed and discussed with patient and pt's son. Pt and pt's son verbalized understanding and pt had his son sign the form. Original given to patient and copy placed in patient?s chart.
--- NOTE | 2024-02-17 15:17 | SWNOTE1 ---
SW met with pt and pt's son to discuss dc needs. Pt lives at home alone. He has 8 children and someone calls or checks on him daily. Pt uses a walker in the home if needed. Pt has been to [facility] and [facility] for rehab in the past. Pt did work with OT and skilled is recommended. Pt would like to see how he does with therapy tomorrow. He is agreeable to rehab if it is still recommended. SW to stop back in tomorrow. SW to reach out to [facility] to see if they have a bed open. Pt does have an aide coming in 2x a week to assist with showering. The aide is private pay.
--- NOTE | 2024-02-17 16:18 | PC.NURSE ---
Dr. Birch notified no ortho coverage at this time
[2024-02-17] MEDS: ALBUTEROL SULFATE 2.5 MG/3 ML VIAL NEB IH (20:55)
[2024-02-18] VITALS (21 sets, daily range): BP systolic 108–141; BP diastolic 59–73; PULSE 58–81; TEMP 36.2–36.6; O2SAT 91–93
[2024-02-18] MEDS: LACTATED RINGER'S SOLUTION 1,000 ML 75 ML IV ×2 (01:41→13:46)
[2024-02-18] MEDS: PIPERACILLIN SODIUM/TAZOBACTAM 3.375 GM in 0.9 % SODIUM CHLORIDE 50 ML IV ×3 (01:41→17:15)
[2024-02-18 06:15] LABS: Basophils Percent Auto 0.3 % (0.2-2.0); Eosinophils Absolute Auto 0.1 10^3/uL (0.0-0.7); Eosinophils Percent Auto 2.3 % (0.9-7.0); Hematocrit 31.5 % (42.0-54.0); Hemoglobin 10.2 g/dL (14.0-18.0); Immature Granulocytes Abs Auto 0.01 10^3/uL (0.00-0.03); Immature Granulocytes Pct Auto 0.3 % (0.0-0.5); Lymphocytes Absolute Auto 0.8 10^3/uL (1.2-3.8); Lymphocytes Percent Auto 20.1 % (20.5-60.0); Mean Corpuscular HGB Conc 32.4 g/dL (29.9-35.2); Mean Corpuscular Hemoglobin 30.2 pg (25.9-34.0); Mean Corpuscular Volume 93.2 fL (80.0-94.0); Monocytes Absolute Auto 0.3 10^3/uL (0.3-0.8); Monocytes Percent Auto 6.8 % (1.7-12.0); Neutrophils Absolute Auto 2.8 10^3/uL (1.4-6.5); Neutrophils Percent Auto 70.2 % (43.0-75.0); Platelet Count 80 10^3/uL (150-450); Red Blood Count 3.38 10^6/uL (4.70-6.10); Red Cell Distribution Width 17.3 % (11.0-15.0)
[2024-02-18 06:29] LABS: Alanine Aminotransferase 118 U/L (16-63); Albumin Globulin Ratio 0.4; Albumin Level 2.2 g/dL (3.4-5.0); Alkaline Phosphatase 120 U/L (46-116); Anion Gap 8.5; Aspartate Amino Transferase 102 U/L (15-37); BUN Creatinine Ratio 28.2; Bilirubin Total 1.1 mg/dL (0.2-1.0); Calcium 8.4 mg/dL (8.5-10.1); Carbon Dioxide 30.7 mmol/L (21.0-32.0); Chloride 104 mmol/L (98-107); Estimated GFR (African America >60 (>=60 mL/min/1.73m^2); Estimated GFR (Non-African Ame >60 (>=60 mL/min/1.73m^2); Globulin 5.3 g/dL; Glucose 72 mg/dL (74-106); Potassium 4.2 mmol/L (3.5-5.1); Sodium 139 mmol/L (136-145); Total Protein 7.5 g/dL (6.4-8.2)
[2024-02-18 06:51] LABS: A. calcoaceticus-baumannii Cpx NOT DETECTED (NOT DETECTE); Bacteroides fragilis NOT DETECTED (NOT DETECTE); Enterobacter cloacae complex NOT DETECTED (NOT DETECTE); Enterobacterales NOT DETECTED (NOT DETECTE); Enterococcus faecalis NOT DETECTED (NOT DETECTE); Enterococcus faecium NOT DETECTED (NOT DETECTE); Klebsiella aerogenes NOT DETECTED (NOT DETECTE); Listeria monocytogenes NOT DETECTED (NOT DETECTE); Staphylococcus epidermidis NOT DETECTED (NOT DETECTE); Staphylococcus lugdunensis NOT DETECTED (NOT DETECTE); Streptococcus agalactiae NOT DETECTED (NOT DETECTE); Streptococcus pneumoniae NOT DETECTED (NOT DETECTE); Streptococcus pyogenes NOT DETECTED (NOT DETECTE); Streptococcus spp. NOT DETECTED (NOT DETECTE)
[2024-02-18 06:52] LABS: Candida albicans NOT DETECTED (NOT DETECTE); Candida auris NOT DETECTED (NOT DETECTE); Candida glabrata NOT DETECTED (NOT DETECTE); Candida krusei NOT DETECTED (NOT DETECTE); Candida parapsilosis NOT DETECTED (NOT DETECTE); Candida tropicalis NOT DETECTED (NOT DETECTE); Cryptococcus neoformans/gattii NOT DETECTED (NOT DETECTE); Haemophilus influenzae NOT DETECTED (NOT DETECTE); Klebsiella pneumoniae group NOT DETECTED (NOT DETECTE); Neisseria meningitidis NOT DETECTED (NOT DETECTE); Proteus spp. NOT DETECTED (NOT DETECTE); Pseudomonas aeruginosa NOT DETECTED (NOT DETECTE); Salmonella spp. NOT DETECTED (NOT DETECTE); Serratia marcescens NOT DETECTED (NOT DETECTE); Stenotrophomonas maltophilia NOT DETECTED (NOT DETECTE)
--- NOTE | 2024-02-18 07:00 | US_ITS ---
The [address] [address] Patient Name: ROSANNA SOUSA MRN: [id number] date: 1940 Sex: M Assigned Patient Location: MS Current Patient Location: MS Accession/Order Number: [id number] Exam Date: 02/18/2024 07:01 Report Date: 02/18/2024 11:27 At the request of: ARIN GLORIA Procedure: US right upper quadrant EXAMINATION: US right upper quadrant HISTORY: elevated LFT's COMPARISON: CT abdomen pelvis 08/20/2023 TECHNIQUE: Transabdominal evaluation of the right upper quadrant. FINDINGS: LIVER: Not well seen, but no appreciable mass, fluid collection, or significant fatty infiltration. Color Doppler demonstrates patent hepatic veins. PORTAL VEIN: Duplex Doppler demonstrates normal hepatopetal flow pattern with flow velocity averaging 20 cm/s. GALLBLADDER: Cholecystectomy. Negative sonographic Villarreal's sign. BILIARY: No abnormal dilation or stones. Common bile duct diameter is within normal limits. PANCREAS: No visible mass, abnormal atrophy, or duct dilation. KIDNEY: Not well seen due to patient position and inability to move right arm. US/US right upper quadrant IMPRESSION: 1. Very limited evaluation. No appreciable acute or suspicious abnormality. Electronically authenticated by: LOUIS BROOKE Date: 02/18/2024 11:27
[2024-02-18 08:09] LABS: Source Blood
[2024-02-18 08:12] LABS: Staphylococcus spp. DETECTED (NOT DETECTE)
--- NOTE | 2024-02-18 08:31 | PM.PN ---
Progress Note: Subjective Subjective Interval history: Patient sitting up in chair and says he is in no pain currently. Right arm is in sling. He denies chest pain. Has good appetite. No other issues or complaints today. Exam Narrative Exam Narrative: General: Patient is alert, and oriented to person, place and time with normal affect, proper hygiene Skin: no visible rashes, or ulcers Head: atraumatic, acephalic Eyes: PERRLA, no nystagmus present, conjunctiva clear, no scleral icterus Ears: normal gross auditory acuity Nose: symmetric, no discharge, no maxillary or frontal sinus tenderness Mouth/Throat: no erythema, exudate, or tonsillar enlargement,dentures Neck: no masses palpated, normal thyroid, no JVD or audible carotid bruits Heart: Normal rate and rhythm, no murmurs/rubs/gallops Lungs: no audible wheezes, crackles and normal breath sounds all lung lizarraga Abdomen: Normal audible bowel sounds, no distension, No palpable masses, no organomegaly, no rebound/guarding/ or rigidity Musculoskeletal: muscle atrophy noted, ROM is limited due to being in hospital chair, no swelling bilateral lower extremities, Right arm is in a sling. Neuro: CN II-X grossly intact Constitutional Vital Signs, click to edit/add: Last Vital Signs Temp 97.7 F 02/18/24 07:19 Pulse 62 02/18/24 08:00 Resp 20 02/18/24 07:19 BP 126/62 02/18/24 07:19 Pulse Ox 93 L 02/18/24 07:19 O2 Del Method Nasal Cannula 02/18/24 07:19 O2 Flow Rate 2 02/18/24 07:19 Progress Note: Objective Labs Labs: Short CBC 02/17/24 02/18/24 Range/Units 08:40 06:00 WBC 4.0 4.0 (4.0-11.0) 10^3/uL Hgb 11.2 L 10.2 L (14.0-18.0) g/dL Hct 34.7 L 31.5 L (42.0-54.0) % Plt Count 83 L 80 L (150-450) 10^3/uL BMP 02/17/24 02/18/24 08:40 06:00 Sodium 141 139 Potassium 4.0 4.2 Chloride 106 104 Carbon Dioxide 27.9 30.7 BUN 30.0 H 22.0 H Creatinine 0.70 0.78 Glucose 114 H 72 L Calcium 8.8 8.4 L Cardiac Enzymes 02/17/24 Range/Units 08:40 Total Creatine Kinase 199 (39-308) U/L Liver Function 02/17/24 02/18/24 Range/Units 08:40 06:00 Total Bilirubin 0.8 1.1 H (0.2-1.0) mg/dL AST 118 H 102 H (15-37) U/L ALT 130 H 118 H (16-63) U/L Alkaline Phosphatase 123 H 120 H (46-116) U/L Albumin 2.5 L 2.2 L (3.4-5.0) g/dL Urine 02/17/24 Range/Units 11:20 Urine Color Lt. yellow (YELLOW) Urine Clarity Clear (CLEAR) Urine pH 5.5 (5.0-9.0) Ur Specific [place] 1.025 (1.005-1.025) Urine Protein Negative (NEG/TRACE) mg/dL Urine Glucose (UA) Negative (NEGATIVE) mg/dL Progress Note: A&P Assessment and Plan (1) Closed fracture of right clavicle: Assessment and Plan: continue immobilizer with sling; Ortho consult, pain control, PT/OT consult. Dominant hand/arm will need penitentiary facility Qualifiers: Clavicle location: lateral end Encounter type: initial encounter Fracture alignment: displaced Qualified Code(s): S42.031A - Displaced fracture of lateral end of right clavicle, initial encounter for closed fracture (2) Hypothermia: Assessment and Plan: resolved. UA normal, blood cultures pending, urine culture pending, WBC's ok, normal lactate and CK level, electrolytes normal, magnesium normal, thyroid TSH elevated. continue Zosyn Qualifiers: Encounter type: initial encounter Qualified Code(s): T68.XXXA - Hypothermia, initial encounter (3) Fall (on) (from) other stairs and steps, subsequent encounter: Assessment and Plan: cause for 1 &2 (4) BPH (benign prostatic hyperplasia): Assessment and Plan: continue flomax Qualifiers: Lower urinary tract symptom presence: unspecified whether lower urinary tract symptoms present Qualified Code(s): N40.0 - Benign prostatic hyperplasia without lower urinary tract symptoms (5) Elevated LFTs: Assessment and Plan: secondary from trauma? US of RUQ was normal; AST/ALT are decreasing, no abdominal pain Plan Patient is a DNR CCA continue Aspirin Patient awaiting placement for penitentiary facility, continue with PT/OT and pain control
[2024-02-18] MEDS: ASPIRIN 81 MG TABLET.DR PO (08:46)
[2024-02-18] MEDS: TAMSULOSIN HCL 0.4 MG CAPSULE PO (08:46)
[2024-02-18] MEDS: FOLIC ACID 1 MG TABLET PO (08:46)
[2024-02-18] MEDS: FLU VACC QS2024(65UP)/MF59C/PF 60 MCG/0.5 ML SYRINGE IM (08:46)
[2024-02-18] MEDS: IRON POLYSACCHARIDE COMPLEX 150 MG CAPSULE PO (08:46)
[2024-02-18] MEDS: ALBUTEROL SULFATE 2.5 MG/3 ML VIAL NEB IH ×2 (09:51→20:17)
--- NOTE | 2024-02-18 11:57 | CM.NOTE ---
Rounds made with Dr. Birch, pt continues with weakness today but states pain is better controlled. Pt is in agreement for skilled therapy at discharge. Dr. Birch discussed plan of care with pt and son.
--- NOTE | 2024-02-18 14:36 | SWNOTE1 ---
SW spoke with pt and son earlier in room in regards to discharge plans. Pt is in agreement with going to rehab and they would like [facility]. Referral sent to [facility]. Referral included face sheet, ED note, H&P, provider notes, case management report, nursing notes, diagnostic imaging, med list, and PT/OT notes. SW heard back from [facility] and they are able to accept when pt is medically stable for discharge.
[2024-02-19] VITALS (20 sets, daily range): BP systolic 106–132; BP diastolic 63–78; PULSE 61–82; TEMP 36.5–36.9; O2SAT 90–92
[2024-02-19] MEDS: PIPERACILLIN SODIUM/TAZOBACTAM 3.375 GM in 0.9 % SODIUM CHLORIDE 50 ML IV ×3 (01:38→17:37)
[2024-02-19 06:22] LABS: Basophils Percent Auto 0.2 % (0.2-2.0); Eosinophils Absolute Auto 0.1 10^3/uL (0.0-0.7); Eosinophils Percent Auto 2.2 % (0.9-7.0); Hematocrit 32.1 % (42.0-54.0); Hemoglobin 10.5 g/dL (14.0-18.0); Lymphocytes Absolute Auto 0.8 10^3/uL (1.2-3.8); Lymphocytes Percent Auto 16.9 % (20.5-60.0); Mean Corpuscular HGB Conc 32.7 g/dL (29.9-35.2); Mean Corpuscular Hemoglobin 30.2 pg (25.9-34.0); Mean Corpuscular Volume 92.2 fL (80.0-94.0); Mean Platelet Volume 10.1 fL (9.5-13.5); Monocytes Absolute Auto 0.4 10^3/uL (0.3-0.8); Monocytes Percent Auto 7.9 % (1.7-12.0); Neutrophils Absolute Auto 3.2 10^3/uL (1.4-6.5); Neutrophils Percent Auto 72.8 % (43.0-75.0); Platelet Count 75 10^3/uL (150-450); Red Blood Count 3.48 10^6/uL (4.70-6.10); Red Cell Distribution Width 17.2 % (11.0-15.0); White Blood Count 4.5 10^3/uL (4.0-11.0)
[2024-02-19 06:39] LABS: Alanine Aminotransferase 109 U/L (16-63); Albumin Globulin Ratio 0.4; Albumin Level 2.2 g/dL (3.4-5.0); Alkaline Phosphatase 124 U/L (46-116); Anion Gap 10.3; Aspartate Amino Transferase 88 U/L (15-37); BUN Creatinine Ratio 30.7; Calcium 8.4 mg/dL (8.5-10.1); Carbon Dioxide 30.8 mmol/L (21.0-32.0); Chloride 104 mmol/L (98-107); Estimated GFR (African America >60 (>=60 mL/min/1.73m^2); Estimated GFR (Non-African Ame >60 (>=60 mL/min/1.73m^2); Globulin 5.4 g/dL; Glucose 85 mg/dL (74-106); Potassium 4.1 mmol/L (3.5-5.1); Sodium 141 mmol/L (136-145); Total Protein 7.6 g/dL (6.4-8.2)
--- NOTE | 2024-02-19 07:42 | PM.PN ---
Progress Note: Subjective Subjective Interval history: Patient sitting up in chair and says he is in no pain currently. Right arm is in sling. He denies chest pain. Has good appetite. No other issues or complaints today. Exam Narrative Exam Narrative: General: Patient is alert, and oriented to person, place and time with normal affect, proper hygiene Skin: no visible rashes, or ulcers Head: atraumatic, acephalic Eyes: PERRLA, no nystagmus present, conjunctiva clear, no scleral icterus Heart: Normal rate and rhythm, no murmurs/rubs/gallops Lungs: no audible wheezes, crackles and normal breath sounds all lung lizarraga Abdomen: Normal audible bowel sounds, no distension, No palpable masses, no organomegaly, no rebound/guarding/ or rigidity Musculoskeletal: muscle atrophy noted, ROM is limited due to being in hospital chair, no swelling bilateral lower extremities, Right arm is in a sling. Neuro: CN II-X grossly intact Constitutional Vital Signs, click to edit/add: Last Vital Signs Temp 98.3 F 02/19/24 07:40 Pulse 70 02/19/24 07:40 Resp 18 02/19/24 07:40 BP 127/69 02/19/24 07:40 Pulse Ox 90 L 02/19/24 07:40 O2 Del Method Nasal Cannula 02/19/24 07:40 O2 Flow Rate 2 02/19/24 07:40 Progress Note: Objective Labs Labs: Short CBC 02/19/24 Range/Units 05:28 WBC 4.5 (4.0-11.0) 10^3/uL Hgb 10.5 L (14.0-18.0) g/dL Hct 32.1 L (42.0-54.0) % Plt Count 75 L (150-450) 10^3/uL BMP 02/19/24 05:28 Sodium 141 Potassium 4.1 Chloride 104 Carbon Dioxide 30.8 BUN 23.0 H Creatinine 0.75 Glucose 85 Calcium 8.4 L Liver Function 02/19/24 Range/Units 05:28 Total Bilirubin 1.0 (0.2-1.0) mg/dL AST 88 H (15-37) U/L ALT 109 H (16-63) U/L Alkaline Phosphatase 124 H (46-116) U/L Albumin 2.2 L (3.4-5.0) g/dL Progress Note: A&P Assessment and Plan (1) Closed fracture of right clavicle: Assessment and Plan: continue immobilizer with sling; Ortho consult but not available this week, pain control, PT/OT consult. Dominant hand/arm will need care home facility Qualifiers: Clavicle location: lateral end Encounter type: initial encounter Fracture alignment: displaced Qualified Code(s): S42.031A - Displaced fracture of lateral end of right clavicle, initial encounter for closed fracture (2) Hypothermia: Assessment and Plan: resolved. UA normal, blood cultures pending, urine culture pending, WBC's ok, normal lactate and CK level, electrolytes normal, magnesium normal, thyroid TSH elevated. continue Zosyn Qualifiers: Encounter type: initial encounter Qualified Code(s): T68.XXXA - Hypothermia, initial encounter (3) Fall (on) (from) other stairs and steps, subsequent encounter: Assessment and Plan: Cause of #1 and #2, will benefit from inpatient rehab. (4) BPH (benign prostatic hyperplasia): Assessment and Plan: continue flomax Qualifiers: Lower urinary tract symptom presence: unspecified whether lower urinary tract symptoms present Qualified Code(s): N40.0 - Benign prostatic hyperplasia without lower urinary tract symptoms (5) Elevated LFTs: Assessment and Plan: improving with normal RUQ ultrasound Plan Patient is a DNR CCA continue Aspirin Patient awaiting placement for care home facility, continue with PT/OT and pain control
[2024-02-19] MEDS: HYDROCODONE/ACET 5-325 MG TABLET 1 TAB PO (08:05)
[2024-02-19] MEDS: FOLIC ACID 1 MG TABLET PO (08:06)
[2024-02-19] MEDS: TAMSULOSIN HCL 0.4 MG CAPSULE PO (08:06)
[2024-02-19] MEDS: POLYETHYLENE GLYCOL 3350 17 GM POWDER PACKET PO (08:06)
[2024-02-19] MEDS: ASPIRIN 81 MG TABLET.DR PO (08:06)
[2024-02-19] MEDS: IRON POLYSACCHARIDE COMPLEX 150 MG CAPSULE PO (08:06)
[2024-02-19] MEDS: 0.9 % SODIUM CHLORIDE 250 ML 10 ML IV (09:41)
--- NOTE | 2024-02-19 09:44 | PT.DAILY ---
Physical Therapy Daily Note PT Daily Note/Assess Start: 02/17/24 17:19 Freq: Status: Active Protocol: Document 02/19/24 09:35 RAZA (Rec: 02/19/24 09:44 LINDANIKOLAS [id number]) Physical Therapy Daily Note/Assessment Time In/Time Out Time In 09:05 Time Out 09:30 Pain In Pain N/A Pain Out Pain N/A Subjective Subjective Pt supine upon arrival. Agreeable to PT. Reports not sleeping well last night - restless vs pain. Therapeutic Exercise Time Therapeutic Exercise Minutes (minutes) 6 Therapeutic Exercise Units 0 Therapeutic Exercise Treatment Therapeutic Exercise Treatment Dario LE strengthening ex complete while sitting at EOB unsupported 10x ea. Therapeutic Activity Time Therapeutic Activity Minutes (minutes) 18 Therapeutic Activity Units 2 Therapeutic Activity Treatment Bed Mobility Ability Maximum Assist,1 Person Assist Chair Transfer Ability Moderate Assist,1 Person Assist Therapeutic Activity Comments Supine>sit to EOB MaxA+1 to shift hips and advance upper body. Pt requires increased time to complete this. Initially demonstrating posterior lean but once hips are shifted further towards EOB pt is able to maintain static/dynamic sitting balance without outside support. COmpletes bilat LE strengthening ex while sitting EOB unsupported for 6 min without LOB. Sit>stand to clarisa cane on L with ModA. Static standing 2 min while talking through step pivot process. Pt then requires increased time but is able to advance his R foot forward then pivot to bring left foot back. Requiring ModA for this transfer. Pt is placed in reclining chair with feet elevated, R arm propped in sling and on pillow and call light within reach and chair alarm activated. Nursing aware pt in chair. Total Physical Therapy Time Total Therapy Minutes 24 Total Physical Therapy Units 2 Summary Daily Note Summary Able to complete pivot transfer with +1 assist today vs 2 assist previous visit but does require a significant amount of time to complete this. Pt would benefit from SNF stay to regain strength, balance and endurance to return to PLOF - pt lives alone but some children do live near by.
--- NOTE | 2024-02-19 11:18 | CM.NOTE ---
Rounds made with Dr. Birch. Dr. Birch discusses plan of care.
[2024-02-20] VITALS (10 sets, daily range): BP systolic 121–127; BP diastolic 55–80; PULSE 62–71; TEMP 36.6–37.2; O2SAT 90–92
[2024-02-20] MEDS: HYDROCODONE/ACET 5-325 MG TABLET 1 TAB PO (02:01)
[2024-02-20] MEDS: PIPERACILLIN SODIUM/TAZOBACTAM 3.375 GM in 0.9 % SODIUM CHLORIDE 50 ML IV ×2 (02:01→09:55)
[2024-02-20 06:33] LABS: Basophils Percent Auto 0.2 % (0.2-2.0); Eosinophils Absolute Auto 0.1 10^3/uL (0.0-0.7); Eosinophils Percent Auto 2.9 % (0.9-7.0); Hemoglobin 10.4 g/dL (14.0-18.0); Immature Granulocytes Abs Auto 0.01 10^3/uL (0.00-0.03); Immature Granulocytes Pct Auto 0.2 % (0.0-0.5); Lymphocytes Absolute Auto 1.4 10^3/uL (1.2-3.8); Mean Corpuscular HGB Conc 32.5 g/dL (29.9-35.2); Mean Corpuscular Hemoglobin 30.1 pg (25.9-34.0); Mean Corpuscular Volume 92.8 fL (80.0-94.0); Mean Platelet Volume 10.8 fL (9.5-13.5); Monocytes Absolute Auto 0.4 10^3/uL (0.3-0.8); Monocytes Percent Auto 7.8 % (1.7-12.0); Neutrophils Absolute Auto 2.9 10^3/uL (1.4-6.5); Neutrophils Percent Auto 59.9 % (43.0-75.0); Platelet Count 92 10^3/uL (150-450); Red Blood Count 3.45 10^6/uL (4.70-6.10); Red Cell Distribution Width 17.4 % (11.0-15.0); White Blood Count 4.9 10^3/uL (4.0-11.0)
[2024-02-20 06:54] LABS: Alanine Aminotransferase 88 U/L (16-63); Albumin Globulin Ratio 0.4; Albumin Level 2.1 g/dL (3.4-5.0); Alkaline Phosphatase 116 U/L (46-116); Anion Gap 9.8; Aspartate Amino Transferase 68 U/L (15-37); BUN Creatinine Ratio 28.2; Bilirubin Total 1.2 mg/dL (0.2-1.0); Calcium 8.4 mg/dL (8.5-10.1); Carbon Dioxide 29.4 mmol/L (21.0-32.0); Chloride 105 mmol/L (98-107); Estimated GFR (African America >60 (>=60 mL/min/1.73m^2); Estimated GFR (Non-African Ame >60 (>=60 mL/min/1.73m^2); Globulin 5.4 g/dL; Glucose 79 mg/dL (74-106); Potassium 4.2 mmol/L (3.5-5.1); Sodium 140 mmol/L (136-145); Total Protein 7.5 g/dL (6.4-8.2)
--- NOTE | 2024-02-20 08:02 | PM.DS1 ---
DS: Providers Provider Date of admission: 02/17/24 11:27 Primary care physician: Flex Isaacs DO Attending physician on admission: Erma Birch Consults: 02/17/24 11:30 Occupational Therapy Eval and Treat Routine Reason for consultation: weakness and falls, clavicular fracture Has provider been notified: No Physical Therapy Eval and Treat Routine Reason for consultation: weakness and falls, clavicular fracture Has provider been notified: No 02/17/24 15:38 Consult to Orthopedic Surgery Routine Consulting Provider: Joni Marroquin Reason For Exam: Reason for consultation: right distal/displaced clavicular fracture Has provider been notified: No Discharging clinician: Erma Birch DS: Diagnosis Discharge Diagnosis (1) Closed fracture of right clavicle: Qualifiers: Clavicle location: lateral end Encounter type: initial encounter Fracture alignment: displaced Qualified Code(s): S42.031A - Displaced fracture of lateral end of right clavicle, initial encounter for closed fracture (2) Hypothermia: Qualifiers: Encounter type: initial encounter Qualified Code(s): T68.XXXA - Hypothermia, initial encounter (3) Fall (on) (from) other stairs and steps, subsequent encounter: (4) BPH (benign prostatic hyperplasia): Qualifiers: Lower urinary tract symptom presence: unspecified whether lower urinary tract symptoms present Qualified Code(s): N40.0 - Benign prostatic hyperplasia without lower urinary tract symptoms (5) Elevated LFTs: DS: Summary Hospital Course Hospital Course: Patient is a very pleasant 83 y.o white male with past medical history of COPD, Iron deficiency, BPH who presented to the ER after suffering a fall at home. He fell near his entry way inside his foyer. He has life alert and EMS was notified. Patient was down maybe 20-30 min before EMS arrived. He said he just tripped and lost his footing. He had his walker there. He denies LOC or neck pain. Arrival to the ER patient complained of right arm pain. He has prior history of falls, hip fracture and rib fractures in the past. ER findings: CT head and neck negative for acute findings, Xray of the humerus, elbow and shoulder showed a displaced clavicular fracture on the right. Patient was placed in a sling. Vitals were stable other than patient had hypothermia and temp rectally was found to be 91 degrees. He was treated with a bear hugger and warm fluids and temp came up to 96 before arriving on the floor. He was given pain control and Cortez seemed to improve his pain. PT/OT evaluation and given he is right hand dominant will benefit from inpatient rehab and will be doing to the [facility] today. He has orthopedic follow up for recheck on clavicle next week. He will remain in immobilizer/sling until instructed by ortho. He tested positive for 1 blood culture of 2, with staph, this is most likely contaminant. Patient has been on Zosyn. I will place him on keflex 500mg BID x 7 days. He will continue Cortez for pain as needed. He was given OPEP. Also on presentation patient had elevated LFT's, RUQ ultrasound was performed that showed no acute liver or GB disease. LFT's are decreasing and patient has been eating and drinking without issues. I think this is trauma related. Patient may return to the ER with any worsening signs or symptoms. Infectious work up has been otherwise negative. Hemoglobin 10.4. He will be discharged to the [facility] today in stable condition. Status at Discharge Functional status at discharge: uses cane/walker Overall status at discharge: patient is progressing back to baseline Time Spent with Patient Time attestation: Total time spent providing and/or coordinating discharge services: Time spent: greater than 30 minutes Exam Narrative Exam Narrative: General: Patient is alert, and oriented to person, place and time with normal affect, proper hygiene Skin: no visible rashes, or ulcers Head: atraumatic, acephalic Eyes: PERRLA, no nystagmus present, conjunctiva clear, no scleral icterus Heart: Normal rate and rhythm, no murmurs/rubs/gallops Lungs: no audible wheezes, crackles and normal breath sounds all lung lizarraga Abdomen: Normal audible bowel sounds, no distension, No palpable masses, no organomegaly, no rebound/guarding/ or rigidity Musculoskeletal: muscle atrophy noted, ROM is limited due to being in hospital chair, no swelling bilateral lower extremities, Right arm is in a sling. Neuro: CN II-X grossly intact Constitutional Vital Signs, click to edit/add: Last Vital Signs Temp 98 F 02/20/24 05:16 Pulse 64 02/20/24 07:56 Resp 18 02/20/24 05:16 BP 121/55 02/20/24 05:16 Pulse Ox 90 L 02/20/24 05:16 O2 Del Method Nasal Cannula 02/20/24 05:16 O2 Flow Rate 2 02/20/24 05:16 DS: Data Data Completed and Pending Labs on day of discharge: Labs from last 24 hours 02/20/24 05:58 WBC 4.9 RBC 3.45 L Hgb 10.4 L Hct 32.0 L MCV 92.8 MCH 30.1 MCHC 32.5 RDW 17.4 H Plt Count 92 L MPV 10.8 Neut % (Auto) 59.9 Lymph % (Auto) 29.0 [place] % (Auto) 7.8 Eos % (Auto) 2.9 Baso % (Auto) 0.2 Neut # (Auto) 2.9 Lymph # (Auto) 1.4 [place] # (Auto) 0.4 Eos # (Auto) 0.1 Baso # (Auto) 0.0 Abs Immat Gran (auto) 0.01 Imm/Tot Granulo (auto) 0.2 Sodium 140 Potassium 4.2 Chloride 105 Carbon Dioxide 29.4 Anion Gap 9.8 BUN 22.0 H Creatinine 0.78 Est GFR ( Amer) >60 Est GFR (Non-Af Amer) >60 BUN/Creatinine Ratio 28.2 Glucose 79 Calcium 8.4 L Total Bilirubin 1.2 H AST 68 H ALT 88 H Alkaline Phosphatase 116 Total Protein 7.5 Albumin 2.1 L Globulin 5.4 Albumin/Globulin Ratio 0.4 Preliminary micro results at discharge 02/17/24 08:48 Blood Culture Result 2 - Preliminary Blood 02/17/24 08:42 Anaerobe Identification - Preliminary Blood - Left Wrist 02/17/24 08:48 Bacterial ID and Susceptibility - Preliminary Blood - Right Antecubital 02/17/24 08:42 Bacterial ID and Susceptibility - Preliminary Blood - Left Wrist 02/17/24 08:42 Blood Culture Result 1 - Preliminary Blood Discharge Plan Discharge Disposition: Xfer SNF Condition: Fair Discharge Medications: New hydrocodone-acetaminophen 5-325 mg Tablet 1 tab PO Q6H PRN (Reason: Pain) 1 Days Qty: 3 0RF cephalexin 500 mg capsule 500 mg PO Q12H 7 Days Qty: 14 0RF Continued acetaminophen 325 mg Tablet 650 mg PO Q6H PRN (Reason: Moderate pain) Qty: 90 0RF polysaccharide iron complex [Ferrex 150] 150 mg iron capsule 150 mg PO DAILY tamsulosin 0.4 mg capsule 0.4 mg PO Q24H albuterol sulfate 1.25 mg/3 mL solution for nebulization 3 mg inhalation BID aspirin 81 mg capsule 81 mg PO DAILY folic acid 1 mg tablet 1 mg PO QDAY Print Language: Welsh Activity Restrictions/Additional Instructions: Please wear right arm sling to keep Clavicular Fracture Immobilized limiting ROM until follow up with Orthopedic Outpatient; Continue to wear 2L NC oxygen continuous. Bedspread Seamer/Gps Navigation Installer Instructions: Discharge to [facility]: Portal Instructions Follow Up Appointments: Feb.23 @ 11am [address] Dr[address] Marroquin [facility], [address] [place], [place] [phone] Discharge location: To the [facility]
[2024-02-20] MEDS: FOLIC ACID 1 MG TABLET PO (08:16)
[2024-02-20] MEDS: IRON POLYSACCHARIDE COMPLEX 150 MG CAPSULE PO (08:16)
[2024-02-20] MEDS: ASPIRIN 81 MG TABLET.DR PO (08:16)
[2024-02-20] MEDS: TAMSULOSIN HCL 0.4 MG CAPSULE PO (08:16)
--- NOTE | 2024-02-20 10:00 | SWNOTE1 ---
[facility] faxed over dc med rec, PT/OT from yesterday, labs from today, and vital from today to [facility].
--- NOTE | 2024-02-20 10:02 | REH.PTDLY ---
Physical Therapy Daily Note PT Daily Note/Assess Start: 02/17/24 17:19 Freq: Status: Active Protocol: Document 02/20/24 09:42 ROGER (Rec: 02/20/24 10:02 ROGER [id number]) Physical Therapy Daily Note/Assessment Time In 08:20 Time Out 08:31 Subjective Pt just got up into chair with nursing. Agreeable to therapy . Therapeutic Exercise Minutes (minutes) 8 Therapeutic Exercise Units 1 Therapeutic Exercise Treatment Instructed in B LE exs for improved strength sitting in chair 10x ea with exs including AP, LAQ, marching, hip abd, and hip add squeeze. Therapeutic Activity Minutes (minutes) 3 Therapeutic Activity Units 0 Therapeutic Activity Comments Cues for pt to scoot to edge of chair using L arm to help pull himself forward using arm rest. Sit to stand transfer from chair Mod A, once standing pt holds onto clarisa cane. Cues for pt to take a step, but pt struggles to and states he cannot at this time. Returns to chair. Total Therapy Minutes 11 Total Physical Therapy Units 1 Daily Note Summary Pt apprehensive with gait and struggles to ambulate. Requires cues and assist with transfers. Pt will need to go to rehab to become stronger at DC as pt cannot care for himself at this time.
--- NOTE | 2024-02-20 12:02 | SWNOTE1 ---
Pt will be discharged to [facility] skilled today. SW checked if [facility] had transport available, but they do not. [facility] called and set up trips for transport. They will be here between 4-4:30. Pt was not able to go before 3:00 per [facility] request due to the room needing cleaned. [facility] called pt's son and notified him of transport time. [facility] did ask pt's son if he wanted to transport and he felt for safety to go by wheelchair. [facility] notified nurse and [facility] of time. [facility] has already faxed over dc med rec. [facility] completed HENS.
--- NOTE | 2024-02-20 12:25 | CM.NOTE ---
Rounds made with Dr. Dennis Birch. Dr. Birch discussed plan for discharge today to [facility] and that that there is an appointment scheduled for 02/24/24 for Ortho. Still verbalized understanding.
== END 2024-02-20 16:15 | DRG 563 ==
LOC: ER 11:30 → MS 12:09
PROVIDERS: Admitting Provider Family Medicine; Emergency Provider Emergency Medicine; PCP Internal Medicine; Visit Provider Family Medicine
DX: S42.031A Displaced fracture of lateral end of right clavicle, initial encounter for closed fracture (principal); Z66 Do not resuscitate; R68.0 Hypothermia, not associated with low environmental temperature; I45.10 Unspecified right bundle-branch block; I44.0 Atrioventricular block, first degree; E86.0 Dehydration; J44.9 Chronic obstructive pulmonary disease, unspecified; N40.0 Benign prostatic hyperplasia without lower urinary tract symptoms; R29.6 Repeated falls; R74.01 Elevation of levels of liver transaminase levels; W10.9XXA Fall (on) (from) unspecified stairs and steps, initial encounter; Y92.008 Other place in unspecified non-institutional (private) residence as the place of occurrence of the external cause; Z20.822 Contact with and (suspected) exposure to COVID-19; Z87.891 Personal history of nicotine dependence; Z79.82 Long term (current) use of aspirin; Z79.899 Other long term (current) drug therapy; Z96.642 Presence of left artificial hip joint; Z96.659 Presence of unspecified artificial knee joint
CPT/HCPCS: 36415; 70450; 71045; 72125; 73030; 73060; 73080; 76705; 80053; 81001; 82550; 82800; 83605; 83735; 84443; 84484; 85025; 87040; 87086; 87150; 87186; 87502; 87804; 87811; 90662; 93005; 94640; 94667; 94668; 94761; 96361; 96365; 97110; 97162; 97165; 97530; 97535; 99285; J2543

== ENCOUNTER 2024-03-02 08:53 | Outpatient (OUT) | payer MEDICARE, OTHER, SELFPAY ==
--- NOTE | 2024-03-02 | XR_ITS ---
The [address] [address] Patient Name: ROSANNA SOUSA MRN: [id number] date: 1940 Sex: M Assigned Patient Location: Current Patient Location: Accession/Order Number: [id number] Exam Date: 03/02/2024 09:02 Report Date: 03/04/2024 07:32 At the request of: LOUIS ORTIZ Procedure: XR clavicle RT PROCEDURE: XR clavicle RT COMPARISON: None. HISTORY: RIGHT CLAVICLE PAIN FINDINGS: BONES:Acute fracture of the distal clavicle with no significant angulation or distraction. The acromioclavicular and glenohumeral joints appear intact on these frontal projections SOFT TISSUES:Negative. No visible soft tissue swelling. EFFUSION:None visible. OTHER: Negative. XR/XR clavicle RT IMPRESSION: Acute distal right clavicle fracture Electronically authenticated by: SOL GÓMEZ Date: 03/04/2024 07:32
--- OUTSIDE RECORDS SUMMARY | 2024-03-02 09:18 | XMS_ITS | CCD ---
Author Organization [facility] Care Team Providers Care Payroll Specialist Name Role Phone Flex Isaacs Unavailable DR FLEX ISAACS Admitting Unavailable FERNY, DR MENDEZ Primary Care Unavailable FERNY, DR MENDEZ Consulting Unavailable FERNY, DR MENDEZ Attending Unavailable Rohini Pearson Consulting Unavailable Kamilla Vieira Unavailable [phone] JAVI GLYNN Consulting Unavailable NAEL BENSON Admitting Unavail able ANEL BENSON Attending Unavail able FLEX ISAACS Primary Care Unavailable JESSICA PIERCE Consulting Unavailable CESAR PHILLIPS Consulting Unavailable DESTINEE MERCADO Consulting Unavailable MICH DENT Consulting Unavailable PITO SPRAGUE Attending Unavailable PITO SPRAGUE Attending Unavailable PITO SPRAGUE Attending Unavailable PITO SPRAGUE Attending Unavailable Allergies Allergy Classification Reported Allergen(s) Allergy Type Date of Onset Reaction(s) Facility (8 sources) patient allergy list reviewed by nurse or physicia Propensity to adverse reactions 5 Comment:Done Twice Other Medications Current Medications Medication Drug Class(es) [...] 2023 4:05pm take 1 tablet by elly every twelve hours Eliquis 5 MG 1 [...] October 03, 2023 4:06pm polyethylene glycol 3350 [id number] mg powder for oral solution (2 sources) [...] 3 Episodic Other aftercare (2 sources) 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; Translations: [OTH CORRECTION CURRENT DRUG THERAPY] Onset: 3 Episodic Other [...] Basophils (Bld) [#/Vol] 0.0 10 3/uL 0.0-0.1 [facility] Basophils/100 WBC Auto (Bld) on 12-04-2023 Basophils/100 WBC (Bld) 0.5 % 0.2-2.0 [facility] Eosinophils/100 WBC Auto (Bl d)on 12-04-2023 Eosinophils/100 WBC (Bld) 3.0 % 0.9-7.0 [facility] Erythrocyte distribution wid th Auto (RBC) [Ratio]on 12-04-2023 Erythrocyte distribution width (RBC) [Ratio] 15.5 % High 11.0-15.0 [facility] Estimated glomerular filtrat ion rate (GFR) non- Americanon 12-04-2023 GFR/1.73 sq M.predicted among non-blacks MDRD (S/P/Bld) [Vol rate/Area] mL/min/{1.73_m2} >=60 [facility] Globulin Calc (S) [Mass/Vol] on 12-04-2023 Globulin (S) [Mass/Vol] 4.9 g/dL [facility] Hematocrit Auto (Bld) [Volum e fraction]on 12-04-2023 Hematocrit (Bld) [Volume fraction] 36.3 % Low 42.0-54.0 [facility] Hemoglobin [Mass/volume] in Bloodon 12-04-2023 Hemoglobin (Bld) [Mass/Vol] 11.8 g/dL Low 14.0-18.0 [facility] Iron binding capacity [Mass/ volume] in Serum or Plasmaon 12-04-2023 Iron binding capacity [Mass/Vol] 293.0 ug/dL 250.0-450.0 [facility] Iron saturation [Mass Fracti on] in Serum or Plasmaon 12-04-2023 Iron saturation [Mass fraction] 18.1 % [facility] Laboratory - Chemistry and C hemistry - challengeon 12-04-2023 Albumin [Mass/Vol] 2.7 g/dL Low 3.4-5.0 [facility] ALP [Catalytic activity/Vol] 98 U/L 46-116 [facility] ALT [Catalytic activity/Vol] 43 U/L 16-63 [facility] AST [Catalytic activity/Vol] 49 U/L High 15-37 [facility] Bilirubin [Mass/Vol] 0.7 mg/dL 0.2-1.0 [facility] Calcium [Mass/Vol] 9.0 mg/dL 8.5-10.1 [facility] Chloride [Moles/Vol] 105 mmol/L 98-107 [facility] CO2 [Moles/Vol] 29.1 mmol/L 21.0-32.0 [facility] Cobalamin (Vitamin B12) [Mass/Vol] 782.0 pg/mL 193.0-986.0 [facility] Creatinine [Mass/Vol] 0.78 mg/dL 0.70-1.30 [facility] Ferritin [Mass/Vol] 139.0 ng/mL 26.0-388.0 [facility] GFR/1.73 sq M.predicted MDRD (S/P/Bld) [Vol rate/Area] mL/min/{1.73_m2} >=60 [facility] Glucose [Mass/Vol] 90 mg/dL 74-106 [facility] Iron [Mass/Vol] 53.0 ug/dL Low 65.0-175.0 [facility] Potassium [Moles/Vol] 4.5 mmol/L 3.5-5.1 [facility] Protein [Mass/Vol] 7.6 g/dL 6.4-8.2 [facility] Sodium [Moles/Vol] 138 mmol/L 136-145 [facility] Urea nitrogen [Mass/Vol] 26.0 mg/dL High 7.0-18.0 [facility] Urea nitrogen/Creatinine [Mass ratio] 33.3 mg/mg [facility] Laboratory - Hematology and Cell countson 12-04-2023 Immature granulocytes/100 WBC (Bld) 0.2 % 0.0-0.5 [facility] Leukocytes [#/volume] correc александр for nucleated erythrocytes in Blood by Automated counon 12-04-2023 WBC corrected for nucl RBC Auto (Bld) [#/Vol] 5.6 10 3/uL 4.0-11.0 [facility] Lymphocytes Auto (Bld) [#/Vo l]on 12-04-2023 Lymphocytes (Bld) [#/Vol] 2.0 10 3/uL 1.2-3.8 [facility] Lymphocytes/100 WBC Auto (Bl d)on 12-04-2023 Lymphocytes/100 WBC (Bld) 36.0 % 20.5-60.0 [facility] MCH Auto (RBC) [Entitic mass ]on 12-04-2023 MCH (RBC) [Entitic mass] 30.3 pg 25.9-34.0 [facility] MCHC Auto (RBC) [Mass/Vol]on 12-04-2023 MCHC (RBC) [Mass/Vol] 32.5 g/dL 29.9-35.2 [facility] MCV Auto (RBC) [Entitic vol] on 12-04-2023 MCV (RBC) [Entitic vol] 93.1 fL 80.0-94.0 [facility] Monocytes Auto (Bld) [#/Vol] on 12-04-2023 Monocytes (Bld) [#/Vol] 0.3 10 3/uL 0.3-0.8 [facility] Monocytes/100 WBC Auto (Bld) on 12-04-2023 Monocytes/100 WBC (Bld) 5.7 % 1.7-12.0 [facility] Neutrophils Auto (Bld) [#/Vo l]on 12-04-2023 Neutrophils (Bld) [#/Vol] 3.1 10 3/uL 1.4-6.5 [facility] Neutrophils/100 WBC Auto (Bl d)on 12-04-2023 Neutrophils/100 WBC (Bld) 54.6 % 43.0-75.0 [facility] No Panel Informationon 12-03 Eosinophils # (Auto) 0.2 10 3/uL 0.0-0.7 [facility] Folate 8.50 ng/mL Low 8.60-58.90 [facility] Immature Granulocyte # (Auto) 0.01 10 3/uL 0.00-0.03 [facility] Platelet mean volume Auto (B ld) [Entitic vol]on 12-04-2023 Platelet mean volume (Bld) [Entitic vol] 9.9 fL 9.5-13.5 [facility] Platelets Auto (Bld) [#/Vol] on 12-04-2023 Platelets (Bld) [#/Vol] 143 10 3/uL Low 150-450 [facility] RBC Auto (Bld) [#/Vol]on RBC (Bld) [#/Vol] 3.90 10 6/uL Low 4.70-6.10 [facility] Serum or plasma albumin/glob ulin mass ratioon 12-04-2023 Albumin/Globulin [Mass ratio] 0.6 {ratio} [facility] Serum or plasma anion gap de terminationon 12-04-2023 Anion gap [Moles/Vol] 8.4 mmol/L [facility] Basophils Auto (Bld) [#/Vol] on 10-23-2023 Basophils (Bld) [#/Vol] 0.0 10 3/uL 0.0-0.1 [facility] Basophils/100 WBC Auto (Bld) on 10-23-2023 Basophils/100 WBC (Bld) 0.3 % 0.2-2.0 [facility] Eosinophils/100 WBC Auto (Bl d)on 10-23-2023 Eosinophils/100 WBC (Bld) 4.6 % 0.9-7.0 [facility] Erythrocyte distribution wid th Auto (RBC) [Ratio]on 10-23-2023 Erythrocyte distribution width (RBC) [Ratio] 15.4 % High 11.0-15.0 [facility] Estimated glomerular filtrat ion rate (GFR) non- Americanon 10-23-2023 GFR/1.73 sq M.predicted among non-blacks MDRD (S/P/Bld) [Vol rate/Area] mL/min/{1.73_m2} >=60 [facility] Globulin Calc (S) [Mass/Vol] on 10-23-2023 Globulin (S) [Mass/Vol] 4.9 g/dL [facility] Hematocrit Auto (Bld) [Volum e fraction]on 10-23-2023 Hematocrit (Bld) [Volume fraction] 35.9 % Low 42.0-54.0 [facility] Hemoglobin [Mass/volume] in Bloodon 10-23-2023 Hemoglobin (Bld) [Mass/Vol] 11.4 g/dL Low 14.0-18.0 [facility] Laboratory - Chemistry and C hemistry - challengeon 10-23-2023 Albumin [Mass/Vol] 2.8 g/dL Low 3.4-5.0 [facility] ALP [Catalytic activity/Vol] 98 U/L 46-116 [facility] ALT [Catalytic activity/Vol] 30 U/L 16-63 [facility] AST [Catalytic activity/Vol] 39 U/L High 15-37 [facility] Bilirubin [Mass/Vol] 0.8 mg/dL 0.2-1.0 [facility] Calcium [Mass/Vol] 8.8 mg/dL 8.5-10.1 [facility] Chloride [Moles/Vol] 104 mmol/L 98-107 [facility] CO2 [Moles/Vol] 31.0 mmol/L 21.0-32.0 [facility] Creatinine [Mass/Vol] 0.82 mg/dL 0.70-1.30 [facility] GFR/1.73 sq M.predicted MDRD (S/P/Bld) [Vol rate/Area] mL/min/{1.73_m2} >=60 [facility] Glucose [Mass/Vol] 91 mg/dL 74-106 [facility] Potassium [Moles/Vol] 4.3 mmol/L 3.5-5.1 [facility] Protein [Mass/Vol] 7.7 g/dL 6.4-8.2 [facility] Sodium [Moles/Vol] 140 mmol/L 136-145 [facility] Urea nitrogen [Mass/Vol] 23.0 mg/dL High 7.0-18.0 [facility] Urea nitrogen/Creatinine [Mass ratio] 28.0 mg/mg [facility] Laboratory - Hematology and Cell countson 10-23-2023 Immature granulocytes/100 WBC (Bld) 0.2 % 0.0-0.5 [facility] Leukocytes [#/volume] correc александр for nucleated erythrocytes in Blood by Automated counon 10-23-2023 WBC corrected for nucl RBC Auto (Bld) [#/Vol] 6.1 10 3/uL 4.0-11.0 [facility] Lymphocytes Auto (Bld) [#/Vo l]on 10-23-2023 Lymphocytes (Bld) [#/Vol] 1.8 10 3/uL 1.2-3.8 [facility] Lymphocytes/100 WBC Auto (Bl d)on 10-23-2023 Lymphocytes/100 WBC (Bld) 28.7 % 20.5-60.0 [facility] MCH Auto (RBC) [Entitic mass ]on 10-23-2023 MCH (RBC) [Entitic mass] 30.0 pg 25.9-34.0 [facility] MCHC Auto (RBC) [Mass/Vol]on 10-23-2023 MCHC (RBC) [Mass/Vol] 31.8 g/dL 29.9-35.2 [facility] MCV Auto (RBC) [Entitic vol] on 10-23-2023 MCV (RBC) [Entitic vol] 94.5 fL High 80.0-94.0 [facility] Monocytes Auto (Bld) [#/Vol] on 10-23-2023 Monocytes (Bld) [#/Vol] 0.3 10 3/uL 0.3-0.8 [facility] Monocytes/100 WBC Auto (Bld) on 10-23-2023 Monocytes/100 WBC (Bld) 5.6 % 1.7-12.0 [facility] Neutrophils Auto (Bld) [#/Vo l]on 10-23-2023 Neutrophils (Bld) [#/Vol] 3.7 10 3/uL 1.4-6.5 [facility] Neutrophils/100 WBC Auto (Bl d)on 10-23-2023 Neutrophils/100 WBC (Bld) 60.6 % 43.0-75.0 [facility] No Panel Informationon 10-22 Eosinophils # (Auto) 0.3 10 3/uL 0.0-0.7 [facility] Immature Granulocyte # (Auto) 0.01 10 3/uL 0.00-0.03 [facility] Platelet mean volume Auto (B ld) [Entitic vol]on 10-23-2023 Platelet mean volume (Bld) [Entitic vol] 9.8 fL 9.5-13.5 [facility] Platelets Auto (Bld) [#/Vol] on 10-23-2023 Platelets (Bld) [#/Vol] 188 10 3/uL 150-450 [facility] RBC Auto (Bld) [#/Vol]on RBC (Bld) [#/Vol] 3.80 10 6/uL Low 4.70-6.10 [facility] Serum or plasma albumin/glob ulin mass ratioon 10-23-2023 Albumin/Globulin [Mass ratio] 0.6 {ratio} [facility] Serum or plasma anion gap de terminationon 10-23-2023 Anion gap [Moles/Vol] 9.3 mmol/L [facility] Basic Metabolic Profon 09-01 Anion gap [Moles/Vol] 6 mmol/L Low 9-16 [facility] Comment on above: Performed By: #### B KAITLYNN LEON #### [employer] [address] [place] [address] Buffer Operator: Ramsey Rodriguez MD Calcium [Mass/Vol] 8.7 mg/dL Normal 8.6-10.4 [facility] Comment on above: Performed By: #### B MP, TROPI #### [facility] [address] [place] [address] Buffer Operator: Ramsey Rodriguez MD Chloride [Moles/Vol] 102 mmol/L Normal 98-107 [facility] Comment on above: Performed By: #### B MP, TROPI #### [facility] [address] [place] [address] Buffer Operator: Ramsey Rodriguez MD CO2 [Moles/Vol] 32 mmol/L High 20-31 [facility] Comment on above: Performed By: #### B EDWARD, TROPI #### [facility] [address] [place] [address] Buffer Operator: Ramsey Rodriguez MD Creatinine [Mass/Vol] 0.5 mg/dL Low 0.70-1.20 [facility] Comment on above: Performed By: #### B EDWARD, TROPI #### [address] [address] Buffer Operator: Ramsey Rodriguez MD GFR/1.73 sq M.predicted among non-blacks MDRD (S/P/Bld) [Vol rate/Area] mL/min/{1.73_m2} Normal >60 [facility] Comment on above: Result Comment: These results [...] Performed By: #### B MP, TROPI #### [facility] [address] [place] [address] Buffer Operator: Ramsey Rodriguez MD Glucose [Mass/Vol] 93 mg/dL Normal 74-99 [facility] Comment on above: Performed By: #### B EDWARD, TROPI #### [facility] [address] [place] [address] Buffer Operator: Ramsey Rodriguez MD Potassium [Moles/Vol] 3.7 mmol/L Normal 3.7-5.3 [facility] Comment on above: Performed By: #### B EDWARD TROPI #### [facility] [address] [place] [address] Buffer Operator: Ramsey Rodriguez MD Sodium [Moles/Vol] 140 mmol/L Normal 136-145 [facility] Comment on above: Performed By: #### B EDWARD TROPI #### [facility] [employer] [address] [place] [address] Buffer Operator: Ramsey Rodriguez MD Urea nitrogen [Mass/Vol] 14 mg/dL Normal 8-23 [facility] Comment on above: Performed By: #### B EDWARD TROPI #### [facility] [address] [place] [address] Buffer Operator: Ramsey Rodriguez MD CBC with Diffon 09-02-2023 Abs. Basophil 0.03 k/uL Normal 0.00-0.20 [facility] Comment on above: Performed By: #### B EDWRAD TROPI #### [facility] [employer] [address] [place] [address] Buffer Operator: Ramsey Rodriguez MD Abs.Imm.Granulocyte 0.04 k/uL Normal 0.00-0.30 [facility] Comment on above: Performed By: #### B EDWARD TROPI #### [facility] [address] [place] [address] Buffer Operator: Ramsey Rodriguez MD Abs.Neutrophil (Seg) 4.12 k/uL Normal 1.50-8.10 [facility] Comment on above: Performed By: #### B EDWARD TROPI #### [facility] [address] [place] [address] Buffer Operator: Ramsey Rodriguez MD Basophils/100 WBC (Bld) 1 % Normal 0-2 [facility] Comment on above: Performed By: #### B MP, TROPI #### [facility] [place] [address] Buffer Operator: Ramsey Rodriguez MD Eosinophils (Bld) [#/Vol] 0.34 10*3/uL Normal 0.00-0.44 [facility] Comment on above: Performed By: #### B MP, TROPI #### [facility] [address] [place] [address] Buffer Operator: Ramsey Rodriguez MD Eosinophils/100 WBC (Bld) 6 % High 1-4 [facility] Comment on above: Performed By: #### B EDWARD, TROPI #### [facility] [address] [place] [address] Buffer Operator: Ramsey Rodriguez MD Erythrocyte distribution width (RBC) [Ratio] 16.0 % High 11.8-14.4 [facility] Comment on above: Performed By: #### B MP, TROPI #### [facility] [address] [place] [address] Buffer Operator: Ramsey Rodriguez MD Hematocrit (Bld) [Volume fraction] 33.4 % Low 40.7-50.3 [facility] Comment on above: Performed By: #### B MP, TROPI #### [facility] [address] [place] [address] Buffer Operator: Ramsey Rodriguez MD Hemoglobin (Bld) [Mass/Vol] 10.6 g/dL Low 13.0-17.0 [facility] Comment on above: Performed By: #### B MP, TROPI #### [facility] [address] [place] [address] Buffer Operator: Ramsey Rodriguez MD Immature granulocytes/100 WBC (Bld) 1 % High 0 [facility] Comment on above: Performed By: #### B EDWARD, TROPI #### [address] [address] Buffer Operator: Ramsey Rdoriguez MD Lymphocytes (Bld) [#/Vol] 0.96 10*3/uL Low 1.10-3.70 [facility] Comment on above: Performed By: #### B EDWARD, TROPI #### [address] [address] Buffer Operator: Ramsey Rodriguez MD Lymphocytes/100 WBC (Bld) 17 % Low 24-43 [facility] Comment on above: Performed By: #### B EDWARD, TROPI #### [address] [address] Buffer Operator: Ramsey Rodriguez MD MCH (RBC) [Entitic mass] 30.5 pg Normal 25.2-33.5 [facility] Comment on above: Performed By: #### B EDWARD, TROPI #### [address] [address] Buffer Operator: Ramsey Rodriguez MD MCHC (RBC) [Mass/Vol] 31.7 g/dL Normal 28.4-34.8 [facility] Comment on above: Performed By: #### B EDWARD, TROPI #### [facility] [address] [place] [address] Buffer Operator: Ramsey Rodriguez MD MCV (RBC) [Entitic vol] 96.0 fL Normal 82.6-102.9 [facility] Comment on above: Performed By: #### B EDWARD, TROPI #### [facility] [address] [place] [address] Buffer Operator: Ramsey Rodriguez MD Monocytes (Bld) [#/Vol] 0.33 10*3/uL Normal 0.10-1.20 [facility] Comment on above: Performed By: #### B EDWARD, TROPI #### [address] [address] Buffer Operator: Ramsey Rodriguez MD Monocytes/100 WBC (Bld) 6 % Normal 3-12 [facility] Comment on above: Performed By: #### B EDWARD, TROPI #### [facility] [address] [place] [address] Buffer Operator: Ramsey Rodriguez MD Neutrophil (Seg) 69 % High 36-65 [facility] Comment on above: Performed By: #### B EDWARD, TROPI #### [facility] [address] [place] [address] Buffer Operator: Ramsey Rodriguez MD NRBC Automated 0.0 per 100 WBC Normal 0.0 [facility] Comment on above: Performed By: #### B EDWARD, TROPI #### [facility] [address] [place] [address] Buffer Operator: Ramsey Rodriguez MD Platelet mean volume (Bld) [Entitic vol] 10.0 fL Normal 8.1-13.5 [facility] Comment on above: Performed By: #### B EDWARD TROPI #### [address] [address] Buffer Operator: Ramsey Rodriguez MD Platelets (Bld) [#/Vol] 190 10*3/uL Normal 138-453 [facility] Comment on above: Performed By: #### B EDWARD, TROPI #### [facility] [address] [place] [address] Buffer Operator: Ramsey Rodriguez MD RBC (Bld) [#/Vol] 3.48 10*6/uL Low 4.21-5.77 [facility] Comment on above: Performed By: #### B MP, TROPI #### [address] [place] [address] Buffer Operator: Ramsey Rodriguez MD RBC morphology finding Nom (Bld) ANISOCYTOSIS PRESENT Normal [facility] Comment on above: Performed By: #### B MP, TROPI #### [address] [address] Buffer Operator: Ramsey Rodriguez MD WBC (Bld) [#/Vol] 5.8 10*3/uL Normal 3.5-11.3 [facility] Comment on above: Performed By: #### B EDWARD, TROPI #### [address] [address] Buffer Operator: Ramsey Rodriguez MD Heparin Anti-Xaon 09-02-2023 Heparin Anti-Xa <0.10 Normal [facility] Comment on above: Performed By: #### B EDWARD, TROPI #### [address] [address] Buffer Operator: Ramsey Rodriguez MD Basic Metabolic Profon 08-31 Anion gap [Moles/Vol] 7 mmol/L Low 9-16 [facility] Comment on above: Performed By: #### B MP, CDP, HEPXA #### [facility] [address] [place] [address] Buffer Operator: Ramsey Rodriguez MD Calcium [Mass/Vol] 8.6 mg/dL Normal 8.6-10.4 [facility] Comment on above: Performed By: #### B MP, CDP, HEPXA #### [facility] [address] [place] [address] Buffer Operator: Ramsey Rodriguez MD Chloride [Moles/Vol] 102 mmol/L Normal 98-107 [facility] Comment on above: Performed By: #### B MP, CDP, HEPXA #### [facility] [address] [place] [address] Buffer Operator: Ramsey Rodriguez MD CO2 [Moles/Vol] 29 mmol/L Normal 20-31 [facility] Comment on above: Performed By: #### B EDWARD CDP, HEPXA #### [employer] [address] [place] [address] Buffer Operator: Ramsey Rodriguez MD Creatinine [Mass/Vol] 0.6 mg/dL Low 0.70-1.20 [facility] Comment on above: Performed By: #### B EDWARD CDP, HEPXA #### [facility] [employer] [address] [place] [address] Buffer Operator: Ramsey Rodriguez MD GFR/1.73 sq M.predicted among non-blacks MDRD (S/P/Bld) [Vol rate/Area] mL/min/{1.73_m2} Normal >60 [facility] Comment on above: Result Comment: These results [...] By: #### B FABIANO LEON, HEPXA #### [facility] [address] [place] [address] Buffer Operator: Ramsey Rodriguez MD Glucose [Mass/Vol] 98 mg/dL Normal 74-99 [facility] Comment on above: Performed By: #### B EDWARD CDP, HEPXA #### [employer] [address] [place] [address] Buffer Operator: Ramsey Rodriguez MD Potassium [Moles/Vol] 4.0 mmol/L Normal 3.7-5.3 [facility] Comment on above: Performed By: #### B EDWARD, CDP, HEPXA #### [address] [address] Buffer Operator: Ramsey Rodriguez MD Sodium [Moles/Vol] 138 mmol/L Normal 136-145 [facility] Comment on above: Performed By: #### B MP, CDP, HEPXA #### [address] [address] Buffer Operator: Ramsey Rodriguez MD Urea nitrogen [Mass/Vol] 15 mg/dL Normal 8-23 [facility] Comment on above: Performed By: #### B MP, CDP, HEPXA #### [address] [address] Buffer Operator: Ramsey Rodriguez MD CBC with Diffon 09-01-2023 Abs. Basophil 0.03 k/uL Normal 0.00-0.20 [facility] Comment on above: Performed By: #### B MP, CDP, HEPXA #### [address] [address] Buffer Operator: Ramsey Rodriguez MD Abs.Imm.Granulocyte <0.03 Normal 0.00-0.30 [facility] Comment on above: Performed By: #### B MP, CDP, HEPXA #### [address] [address] Buffer Operator: Ramsey Rodriguez MD Abs.Neutrophil (Seg) 5.05 k/uL Normal 1.50-8.10 [facility] Comment on above: Performed By: #### B MP, CDP, HEPXA #### [address] [address] Buffer Operator: Ramsey Rodriguez MD Basophils/100 WBC (Bld) 0 % Normal 0-2 [facility] Comment on above: Performed By: #### B MP, CDP, HEPXA #### [address] [address] Buffer Operator: Ramsey Rodriguez MD Eosinophils (Bld) [#/Vol] 0.30 10*3/uL Normal 0.00-0.44 [facility] Comment on above: Performed By: #### B MP, CDP, HEPXA #### [address] [address] Buffer Operator: Ramsey Rodriguez MD Eosinophils/100 WBC (Bld) 4 % Normal 1-4 [facility] Comment on above: Performed By: #### B MP, CDP, HEPXA #### [facility] [address] [place] [address] Buffer Operator: Ramsey Rodriguez MD Erythrocyte distribution width (RBC) [Ratio] 16.0 % High 11.8-14.4 [facility] Comment on above: Performed By: #### B MP, CDP, HEPXA #### [address] [address] Buffer Operator: Ramsey Rodriguez MD Hematocrit (Bld) [Volume fraction] 34.5 % Low 40.7-50.3 [facility] Comment on above: Performed By: #### B MP, CDP, HEPXA #### [address] [address] Buffer Operator: Ramsey Rodriguez MD Hemoglobin (Bld) [Mass/Vol] 10.9 g/dL Low 13.0-17.0 [facility] Comment on above: Performed By: #### B MP, CDP, HEPXA #### [facility] [address] [place] [address] Buffer Operator: Ramsey Rodriguez MD Immature granulocytes/100 WBC (Bld) 0 % Normal 0 [facility] Comment on above: Performed By: #### B MP, CDP, HEPXA #### [facility] [employer] [address] [place] [address] Buffer Operator: Ramsey Rodriguez MD Lymphocytes (Bld) [#/Vol] 2.11 10*3/uL Normal 1.10-3.70 [facility] Comment on above: Performed By: #### B MP, CDP, HEPXA #### [address] [place] [address] Buffer Operator: Ramsey Rodriguez MD Lymphocytes/100 WBC (Bld) 27 % Normal 24-43 [facility] Comment on above: Performed By: #### B MP, CDP, HEPXA #### [address] [address] Buffer Operator: Ramsey Rodriguez MD MCH (RBC) [Entitic mass] 30.9 pg Normal 25.2-33.5 [facility] Comment on above: Performed By: #### B MP, CDP, HEPXA #### [address] [address] Buffer Operator: Ramsey Rodriguez MD MCHC (RBC) [Mass/Vol] 31.6 g/dL Normal 28.4-34.8 [facility] Comment on above: Performed By: #### B MP, CDP, HEPXA #### [address] [address] Buffer Operator: Ramsey Rodriguez MD MCV (RBC) [Entitic vol] 97.7 fL Normal 82.6-102.9 [facility] Comment on above: Performed By: #### B MP, CDP, HEPXA #### [address] [place] [address] Buffer Operator: Ramsey Rodriguez MD Monocytes (Bld) [#/Vol] 0.39 10*3/uL Normal 0.10-1.20 [facility] Comment on above: Performed By: #### B MP, CDP, HEPXA #### [address] [address] Buffer Operator: Ramsey Rodriguez MD Monocytes/100 WBC (Bld) 5 % Normal 3-12 [facility] Comment on above: Performed By: #### B MP, CDP, HEPXA #### [address] [address] Buffer Operator: Ramsey Rodriguez MD Neutrophil (Seg) 64 % Normal 36-65 [facility] Comment on above: Performed By: #### B MP, CDP, HEPXA #### [address] [address] Buffer Operator: Ramsey Rodriguez MD NRBC Automated 0.0 per 100 WBC Normal 0.0 [facility] Comment on above: Performed By: #### B MP, CDP, HEPXA #### [address] [address] Buffer Operator: Ramsey Rodriguez MD Platelet mean volume (Bld) [Entitic vol] 10.5 fL Normal 8.1-13.5 [facility] Comment on above: Performed By: #### B MP, CDP, HEPXA #### [address] [address] Buffer Operator: Ramsey Rodriguez MD Platelets (Bld) [#/Vol] 188 10*3/uL Normal 138-453 [facility] Comment on above: Performed By: #### B MP, CDP, HEPXA #### [address] [address] Buffer Operator: Ramsey Rodriguez MD RBC (Bld) [#/Vol] 3.53 10*6/uL Low 4.21-5.77 [facility] Comment on above: Performed By: #### B MP, CDP, HEPXA #### [address] [address] Buffer Operator: Ramsey Rodriguez MD RBC morphology finding Nom (Bld) ANISOCYTOSIS PRESENT Normal [facility] Comment on above: Performed By: #### B MP, CDP, HEPXA #### [address] [address] Buffer Operator: Ramsey Rodriguez MD WBC (Bld) [#/Vol] 7.9 10*3/uL Normal 3.5-11.3 [facility] Comment on above: Performed By: #### B MP, CDP, HEPXA #### [address] [address] Buffer Operator: Ramsey Rodriguez MD Heparin Anti-Xaon 09-01-2023 Heparin Anti-Xa 0.43 IU/L Normal [facility] Comment on above: Performed By: #### B MP, CDP, HEPXA #### [address] [address] Buffer Operator: Ramsey Rodriguez MD Basic Metabolic Profon 08-30 Anion gap [Moles/Vol] 8 mmol/L Low 9-16 [facility] Comment on above: Performed By: #### B MP, CDP, HEPXA #### [facility] [address] [place] [address] Buffer Operator: Ramsey Rodriguez MD Calcium [Mass/Vol] 8.2 mg/dL Low 8.6-10.4 [facility] Comment on above: Performed By: #### B MP, CDP, HEPXA #### [facility] [address] [place] [address] Buffer Operator: Ramsey Rodriguez MD Chloride [Moles/Vol] 103 mmol/L Normal 98-107 [facility] Comment on above: Performed By: #### B MP, CDP, HEPXA #### [facility] [address] [place] [address] Buffer Operator: Ramsey Rodriguez MD CO2 [Moles/Vol] 28 mmol/L Normal 20-31 [facility] Comment on above: Performed By: #### B FABIANO LEON, HEPXA #### [facility] [place] [address] Buffer Operator: Ramsey Rodriguez MD Creatinine [Mass/Vol] 0.6 mg/dL Low 0.70-1.20 [facility] Comment on above: Performed By: #### B FABIANO LEON, HEPXA #### [facility] [address] [place] [address] Buffer Operator: Ramsey Rodriguez MD GFR/1.73 sq M.predicted among non-blacks MDRD (S/P/Bld) [Vol rate/Area] mL/min/{1.73_m2} Normal >60 [facility] Comment on above: Result Comment: These results [...] By: #### B FABIANO LEON, HEPXA #### [facility] [address] [place] [address] Buffer Operator: Ramsey Rodriguez MD Glucose [Mass/Vol] 104 mg/dL High 74-99 [facility] Comment on above: Performed By: #### B FABIANO LEON, HEPXA #### [facility] [address] [place] [address] Buffer Operator: Ramsey Rodriguez MD Potassium [Moles/Vol] 3.5 mmol/L Low 3.7-5.3 [facility] Comment on above: Performed By: #### B EDWARD CDP, HEPXA #### [facility] [address] [place] [address] Buffer Operator: Ramsey Rodriguez MD Sodium [Moles/Vol] 139 mmol/L Normal 136-145 [facility] Comment on above: Performed By: #### B MP, CDP, HEPXA #### [place] [address] Buffer Operator: Ramsey Rodriguez MD Urea nitrogen [Mass/Vol] 17 mg/dL Normal 8-23 [facility] Comment on above: Performed By: #### B MP, CDP, HEPXA #### [place] [address] Buffer Operator: Ramsey Rodriguez MD CBC with Diffon 08-31-2023 Abs. Basophil <0.03 Normal 0.00-0.20 [facility] Comment on above: Performed By: #### T ROPI #### [place] [address] Buffer Operator: Ramsey Rodriguez MD Abs.Imm.Granulocyte 0.03 k/uL Normal 0.00-0.30 [facility] Comment on above: Performed By: #### T ROPI #### [place] [address] Buffer Operator: Ramsey Rodriguez MD Abs.Neutrophil (Seg) 4.38 k/uL Normal 1.50-8.10 [facility] Comment on above: Performed By: #### T ROPI #### [place] [address] Buffer Operator: Ramsey Rodriguez MD Basophils/100 WBC (Bld) 0 % Normal 0-2 [facility] Comment on above: Performed By: #### T ROPI #### [place] [address] Buffer Operator: Ramsey Rodriguez MD Eosinophils (Bld) [#/Vol] 0.21 10*3/uL Normal 0.00-0.44 [facility] Comment on above: Performed By: #### T ROPI #### [address] [address] Buffer Operator: Ramsey Rodriguez MD Eosinophils/100 WBC (Bld) 3 % Normal 1-4 [facility] Comment on above: Performed By: #### T ROPI #### [address] [address] Buffer Operator: Ramsey Rodriguez MD Erythrocyte distribution width (RBC) [Ratio] 15.9 % High 11.8-14.4 [facility] Comment on above: Performed By: #### T ROPI #### [address] [address] Buffer Operator: Ramsey Rodriguez MD Hematocrit (Bld) [Volume fraction] 33.3 % Low 40.7-50.3 [facility] Comment on above: Performed By: #### T ROPI #### [address] [address] Buffer Operator: Ramsey Rodriguez MD Hemoglobin (Bld) [Mass/Vol] 10.4 g/dL Low 13.0-17.0 [facility] Comment on above: Performed By: #### T ROPI #### [address] [address] Buffer Operator: Ramsey Rodriguez MD Immature granulocytes/100 WBC (Bld) 1 % High 0 [facility] Comment on above: Performed By: #### T ROPI #### [address] [address] Buffer Operator: Ramsey Rodriguez MD Lymphocytes (Bld) [#/Vol] 1.31 10*3/uL Normal 1.10-3.70 [facility] Comment on above: Performed By: #### T ROPI #### [address] [address] Buffer Operator: Ramsey Rodriguez MD Lymphocytes/100 WBC (Bld) 21 % Low 24-43 [facility] Comment on above: Performed By: #### T ROPI #### [address] [address] Buffer Operator: Ramsey Rodriguez MD MCH (RBC) [Entitic mass] 30.9 pg Normal 25.2-33.5 [facility] Comment on above: Performed By: #### T ROPI #### [place] [address] Buffer Operator: Ramsey Rodriguez MD MCHC (RBC) [Mass/Vol] 31.2 g/dL Normal 28.4-34.8 [facility] Comment on above: Performed By: #### T ROPI #### [place] [address] Buffer Operator: Ramsey Rodriguez MD MCV (RBC) [Entitic vol] 98.8 fL Normal 82.6-102.9 [facility] Comment on above: Performed By: #### T ROPI #### [place] [address] Buffer Operator: Ramsey Rodriguez MD Monocytes (Bld) [#/Vol] 0.31 10*3/uL Normal 0.10-1.20 [facility] Comment on above: Performed By: #### T ROPI #### [place] [address] Buffer Operator: Ramsey Rodriguez MD Monocytes/100 WBC (Bld) 5 % Normal 3-12 [facility] Comment on above: Performed By: #### T ROPI #### [address] [address] Buffer Operator: Ramsey Rodriguez MD Neutrophil (Seg) 70 % High 36-65 [facility] Comment on above: Performed By: #### T ROPI #### [address] [address] Buffer Operator: Ramsey Rodriguez MD NRBC Automated 0.0 per 100 WBC Normal 0.0 [facility] Comment on above: Performed By: #### T ROPI #### [address] [address] Buffer Operator: Ramsey Rodrgiuez MD Platelet mean volume (Bld) [Entitic vol] 10.4 fL Normal 8.1-13.5 [facility] Comment on above: Performed By: #### T ROPI #### [address] [address] Buffer Operator: Ramsey Rodriguez MD Platelets (Bld) [#/Vol] 160 10*3/uL Normal 138-453 [facility] Comment on above: Performed By: #### T ROPI #### [address] [address] Buffer Operator: Ramsey Rodriguez MD RBC (Bld) [#/Vol] 3.37 10*6/uL Low 4.21-5.77 [facility] Comment on above: Performed By: #### T ROPI #### [address] [address] Buffer Operator: Ramsey Rodriguez MD RBC morphology finding Nom (Bld) ANISOCYTOSIS PRESENT Normal [facility] Comment on above: Performed By: #### T ROPI #### [address] [address] Buffer Operator: Ramsey Rodriguez MD WBC (Bld) [#/Vol] 6.3 10*3/uL Normal 3.5-11.3 [facility] Comment on above: Performed By: #### T ROPI #### [address] [address] Buffer Operator: Ramsey Rodriguez MD Heparin Anti-Xaon 08-31-2023 Heparin Anti-Xa 0.39 IU/L Normal [facility] Comment on above: Performed By: #### H EPXA, CBC, PTT, PT #### [address] [address] Buffer Operator: Ramsey Rodriguez MD Basic Metabolic Profon 08-29 Anion gap [Moles/Vol] 7 mmol/L Low 9-16 [facility] Comment on above: Performed By: #### B MP, CDP, HEPXA #### [address] [address] Buffer Operator: Ramsey Rodriguez MD Calcium [Mass/Vol] 8.2 mg/dL Low 8.6-10.4 [facility] Comment on above: Performed By: #### B MP, CDP, HEPXA #### [address] [address] Buffer Operator: Ramsey Rodriguez MD Chloride [Moles/Vol] 104 mmol/L Normal 98-107 [facility] Comment on above: Performed By: #### B MP, CDP, HEPXA #### [facility] [address] [place] [address] Buffer Operator: Ramsey Rodriguez MD CO2 [Moles/Vol] 29 mmol/L Normal 20-31 [facility] Comment on above: Performed By: #### B MP, CDP, HEPXA #### [facility] [address] [place] [address] Buffer Operator: Ramsey Rodriguez MD Creatinine [Mass/Vol] 0.7 mg/dL Normal 0.70-1.20 [facility] Comment on above: Performed By: #### B MP, CDP, HEPXA #### [facility] [address] [place] [address] Buffer Operator: Ramsey Rodriguez MD GFR/1.73 sq M.predicted among non-blacks MDRD (S/P/Bld) [Vol rate/Area] mL/min/{1.73_m2} Normal >60 [facility] Comment on above: Result Comment: These results [...] By: #### B EDWARD CDP, HEPXA #### [facility] [address] [place] [address] Buffer Operator: Ramsey Rodriguez MD Glucose [Mass/Vol] 94 mg/dL Normal 74-99 [facility] Comment on above: Performed By: #### B EDWARD CDP, HEPXA #### [facility] [address] [place] [address] Buffer Operator: Ramsey Rodriguez MD Potassium [Moles/Vol] 3.6 mmol/L Low 3.7-5.3 [facility] Comment on above: Performed By: #### B MP, CDP, HEPXA #### [facility] [address] [place] [address] Buffer Operator: Ramsey Rodriguez MD Sodium [Moles/Vol] 140 mmol/L Normal 136-145 [facility] Comment on above: Performed By: #### B MP, CDP, HEPXA #### [facility] [address] [place] [address] Buffer Operator: Ramsey Rodriguez MD Urea nitrogen [Mass/Vol] 14 mg/dL Normal 8-23 [facility] Comment on above: Performed By: #### B EDWARD, CDP, HEPXA #### [facility] [address] [place] [address] Buffer Operator: Ramsey Rodriguez MD CBC with Diffon 08-30-2023 Abs. Basophil <0.03 Normal 0.00-0.20 [facility] Comment on above: Performed By: #### B MP, CDP, HEPXA #### [address] [address] Buffer Operator: Ramsey Rodriguez MD Abs.Imm.Granulocyte 0.03 k/uL Normal 0.00-0.30 [facility] Comment on above: Performed By: #### B MP, CDP, HEPXA #### [address] [address] Buffer Operator: Ramsey Rodriguez MD Abs.Neutrophil (Seg) 3.72 k/uL Normal 1.50-8.10 [facility] Comment on above: Performed By: #### B MP, CDP, HEPXA #### [address] [address] Buffer Operator: Ramsey Rodriguez MD Basophils/100 WBC (Bld) 0 % Normal 0-2 [facility] Comment on above: Performed By: #### B MP, CDP, HEPXA #### [address] [address] Buffer Operator: Ramsey Rodriguez MD Eosinophils (Bld) [#/Vol] 0.22 10*3/uL Normal 0.00-0.44 [facility] Comment on above: Performed By: #### B MP, CDP, HEPXA #### [facility] [address] [place] [address] Buffer Operator: Ramsey Rodriguez MD Eosinophils/100 WBC (Bld) 4 % Normal 1-4 [facility] Comment on above: Performed By: #### B MP, CDP, HEPXA #### [facility] [address] [place] [address] Buffer Operator: Ramsey Rodriguez MD Erythrocyte distribution width (RBC) [Ratio] 15.8 % High 11.8-14.4 [facility] Comment on above: Performed By: #### B MP, CDP, HEPXA #### [address] [address] Buffer Operator: Ramsey Rodriguez MD Hematocrit (Bld) [Volume fraction] 31.1 % Low 40.7-50.3 [facility] Comment on above: Performed By: #### B MP, CDP, HEPXA #### [facility] [address] [place] [address] Buffer Operator: Ramsey Rodriguez MD Hemoglobin (Bld) [Mass/Vol] 10.1 g/dL Low 13.0-17.0 [facility] Comment on above: Performed By: #### B MP, CDP, HEPXA #### [address] [address] Buffer Operator: Ramsey Rodriguez MD Immature granulocytes/100 WBC (Bld) 1 % High 0 [facility] Comment on above: Performed By: #### B MP, CDP, HEPXA #### [address] [address] Buffer Operator: Ramsey Rodriguez MD Lymphocytes (Bld) [#/Vol] 1.25 10*3/uL Normal 1.10-3.70 [facility] Comment on above: Performed By: #### B MP, CDP, HEPXA #### [facility] [address] [place] [address] Buffer Operator: Ramsey Rodriguez MD Lymphocytes/100 WBC (Bld) 22 % Low 24-43 [facility] Comment on above: Performed By: #### B MP, CDP, HEPXA #### [facility] [address] [place] [address] Buffer Operator: Ramsey Rodriguez MD MCH (RBC) [Entitic mass] 30.6 pg Normal 25.2-33.5 [facility] Comment on above: Performed By: #### B MP, CDP, HEPXA #### [address] [address] Buffer Operator: Ramsey Rodriguez MD MCHC (RBC) [Mass/Vol] 32.5 g/dL Normal 28.4-34.8 [facility] Comment on above: Performed By: #### B MP, CDP, HEPXA #### [address] [address] Buffer Operator: Ramsey Rodriguez MD MCV (RBC) [Entitic vol] 94.2 fL Normal 82.6-102.9 [facility] Comment on above: Performed By: #### B MP, CDP, HEPXA #### [address] [address] Buffer Operator: Ramsey Rodriguez MD Monocytes (Bld) [#/Vol] 0.35 10*3/uL Normal 0.10-1.20 [facility] Comment on above: Performed By: #### B MP, CDP, HEPXA #### [address] [address] Buffer Operator: Ramsey Rodriguez MD Monocytes/100 WBC (Bld) 6 % Normal 3-12 [facility] Comment on above: Performed By: #### B MP, CDP, HEPXA #### [address] [address] Buffer Operator: Ramsey Rodriguez MD Neutrophil (Seg) 67 % High 36-65 [facility] Comment on above: Performed By: #### B MP, CDP, HEPXA #### [facility] [address] [place] [address] Buffer Operator: Ramsey Rodriguez MD NRBC Automated 0.0 per 100 WBC Normal 0.0 [facility] Comment on above: Performed By: #### B MP, CDP, HEPXA #### [address] [address] Buffer Operator: Ramsey Rodriguez MD Platelet mean volume (Bld) [Entitic vol] 10.2 fL Normal 8.1-13.5 [facility] Comment on above: Performed By: #### B MP, CDP, HEPXA #### [address] [address] Buffer Operator: Ramsey Rodriguez MD Platelets (Bld) [#/Vol] 158 10*3/uL Normal 138-453 [facility] Comment on above: Performed By: #### B MP, CDP, HEPXA #### [address] [address] Buffer Operator: Ramsey Rodriguez MD RBC (Bld) [#/Vol] 3.30 10*6/uL Low 4.21-5.77 [facility] Comment on above: Performed By: #### B MP, CDP, HEPXA #### [address] [address] Buffer Operator: Ramsey Rodriguez MD RBC morphology finding Nom (Bld) ANISOCYTOSIS PRESENT Normal [facility] Comment on above: Performed By: #### B MP, CDP, HEPXA #### [address] [address] Buffer Operator: Ramsey Rodriguez MD WBC (Bld) [#/Vol] 5.6 10*3/uL Normal 3.5-11.3 [facility] Comment on above: Performed By: #### B MP, CDP, HEPXA #### [address] [address] Buffer Operator: Ramsey Rodriguez MD Heparin Anti-Xaon 08-30-2023 Heparin Anti-Xa 0.43 IU/L Normal [facility] Comment on above: Performed By: #### H EPXA, CBC, PTT, PT #### [facility] [place] [address] Buffer Operator: Ramsey Rodriguez MD Heparin Anti-Xa 0.42 IU/L Normal [facility] Comment on above: Performed By: #### B MP, CDP, HEPXA #### [facility] [address] [place] [address] Buffer Operator: Ramsey Rodriguez MD Heparin Anti-Xa 0.27 IU/L Normal [facility] Comment on above: Performed By: #### B MP, CDP, HEPXA #### [facility] [address] [place] [address] Buffer Operator: Ramsey Rodriguez MD Troponinon 08-30-2023 Troponin, High Sens 138 ng/L Critically high 0-22 [facility] Comment on above: Result Comment: High Sensitivity Troponin values cannot be compared with other Troponin methodologies. Previous Alert Value Reported Performed By: #### B EDWARD CDP, HEPXA #### [facility] [address] [place] [address] Buffer Operator: Ramsey Rodriguez MD Basic Metabolic Profon 08-28 Anion gap [Moles/Vol] 6 mmol/L Low 9-16 [facility] Comment on above: Performed By: #### B EDWARD, CDP, HEPXA #### [facility] [address] [place] [address] Buffer Operator: Ramsey Rodriguez MD Calcium [Mass/Vol] 8.2 mg/dL Low 8.6-10.4 [facility] Comment on above: Performed By: #### B MP, CDP, HEPXA #### [facility] [address] [place] [address] Buffer Operator: Ramsey Rodriguez MD Chloride [Moles/Vol] 106 mmol/L Normal 98-107 [facility] Comment on above: Performed By: #### B FABIANO LEON, HEPXA #### [facility] [address] [place] [address] Buffer Operator: Ramsey Rodriguez MD CO2 [Moles/Vol] 29 mmol/L Normal 20-31 [facility] Comment on above: Performed By: #### B FABIANO LEON, HEPXA #### [facility] [place] [address] Buffer Operator: Ramsey Rodriguez MD Creatinine [Mass/Vol] 0.6 mg/dL Low 0.70-1.20 [facility] Comment on above: Performed By: #### B FABIANO LEON, HEPXA #### [address] [address] Buffer Operator: Ramsey Rodriguez MD GFR/1.73 sq M.predicted among non-blacks MDRD (S/P/Bld) [Vol rate/Area] mL/min/{1.73_m2} Normal >60 [facility] Comment on above: Result Comment: These results [...] By: #### B FABIANO LEON, HEPXA #### [facility] [address] [place] [address] Buffer Operator: Ramsey Rodriguez MD Glucose [Mass/Vol] 85 mg/dL Normal 74-99 [facility] Comment on above: Performed By: #### B FABIANO LEON, HEPXA #### [facility] [address] [place] [address] Buffer Operator: Ramsey Rodriguez MD Potassium [Moles/Vol] 3.9 mmol/L Normal 3.7-5.3 [facility] Comment on above: Performed By: #### B MP, CDP, HEPXA #### [facility] [address] [place] [address] Buffer Operator: Ramsey Rodriguez MD Sodium [Moles/Vol] 141 mmol/L Normal 136-145 [facility] Comment on above: Performed By: #### B MP, CDP, HEPXA #### [facility] [address] [place] [address] Buffer Operator: Ramsey Rodriguez MD Urea nitrogen [Mass/Vol] 9 mg/dL Normal 8-23 [facility] Comment on above: Performed By: #### B MP, CDP, HEPXA #### [facility] [address] [place] [address] Buffer Operator: Ramsey Rodriguez MD CBC with Diffon 08-29-2023 Abs. Basophil <0.03 Normal 0.00-0.20 [facility] Comment on above: Performed By: #### B MP, CDP, HEPXA #### [place] [address] Buffer Operator: Ramsey Rodriguez MD Abs.Imm.Granulocyte <0.03 Normal 0.00-0.30 [facility] Comment on above: Performed By: #### B MP, CDP, HEPXA #### [facility] [address] [place] [address] Buffer Operator: Ramsey Rodriguez MD Abs.Neutrophil (Seg) 3.04 k/uL Normal 1.50-8.10 [facility] Comment on above: Performed By: #### B MP, CDP, HEPXA #### [facility] [address] [place] [address] Buffer Operator: Ramsey Rodriguez MD Basophils/100 WBC (Bld) 0 % Normal 0-2 [facility] Comment on above: Performed By: #### B MP, CDP, HEPXA #### [facility] [address] [place] [address] Buffer Operator: Ramsey Rodriguez MD Eosinophils (Bld) [#/Vol] 0.28 10*3/uL Normal 0.00-0.44 [facility] Comment on above: Performed By: #### B MP, CDP, HEPXA #### [address] [address] Buffer Operator: Ramsey Rodriguez MD Eosinophils/100 WBC (Bld) 6 % High 1-4 [facility] Comment on above: Performed By: #### B MP, CDP, HEPXA #### [address] [address] Buffer Operator: Ramsey Rodrigeuz MD Erythrocyte distribution width (RBC) [Ratio] 15.7 % High 11.8-14.4 [facility] Comment on above: Performed By: #### B MP, CDP, HEPXA #### [facility] [address] [place] [address] Buffer Operator: Ramsey Rodriguez MD Hematocrit (Bld) [Volume fraction] 32.4 % Low 40.7-50.3 [facility] Comment on above: Performed By: #### B MP, CDP, HEPXA #### [address] [address] Buffer Operator: Ramsey Rodriguez MD Hemoglobin (Bld) [Mass/Vol] 10.2 g/dL Low 13.0-17.0 [facility] Comment on above: Performed By: #### B MP, CDP, HEPXA #### [facility] [address] [place] [address] Buffer Operator: Ramsey Rodriguez MD Immature granulocytes/100 WBC (Bld) 0 % Normal 0 [facility] Comment on above: Performed By: #### B MP, CDP, HEPXA #### [address] [address] Buffer Operator: Ramsey Rodriguez MD Lymphocytes (Bld) [#/Vol] 1.36 10*3/uL Normal 1.10-3.70 [facility] Comment on above: Performed By: #### B MP, CDP, HEPXA #### [address] [address] Buffer Operator: Ramsey Rodriguez MD Lymphocytes/100 WBC (Bld) 27 % Normal 24-43 [facility] Comment on above: Performed By: #### B MP, CDP, HEPXA #### [address] [address] Buffer Operator: Ramsey Rodriguez MD MCH (RBC) [Entitic mass] 30.8 pg Normal 25.2-33.5 [facility] Comment on above: Performed By: #### B MP, CDP, HEPXA #### [address] [address] Buffer Operator: Ramsey Rodriguez MD MCHC (RBC) [Mass/Vol] 31.5 g/dL Normal 28.4-34.8 [facility] Comment on above: Performed By: #### B MP, CDP, HEPXA #### [address] [address] Buffer Operator: Ramsey Rodriguez MD MCV (RBC) [Entitic vol] 97.9 fL Normal 82.6-102.9 [facility] Comment on above: Performed By: #### B MP, CDP, HEPXA #### [address] [address] Buffer Operator: Ramsey Rodriguez MD Monocytes (Bld) [#/Vol] 0.37 10*3/uL Normal 0.10-1.20 [facility] Comment on above: Performed By: #### B MP, CDP, HEPXA #### [address] [place] [address] Buffer Operator: Ramsey Rodriguez MD Monocytes/100 WBC (Bld) 7 % Normal 3-12 [facility] Comment on above: Performed By: #### B MP, CDP, HEPXA #### [address] [address] Buffer Operator: Ramsey Rodriguez MD Neutrophil (Seg) 60 % Normal 36-65 [facility] Comment on above: Performed By: #### B MP, CDP, HEPXA #### [address] [address] Buffer Operator: Ramsey Rodriguez MD NRBC Automated 0.0 per 100 WBC Normal 0.0 [facility] Comment on above: Performed By: #### B MP, CDP, HEPXA #### [address] [address] Buffer Operator: Ramsey Rodriguez MD Platelet mean volume (Bld) [Entitic vol] 10.4 fL Normal 8.1-13.5 [facility] Comment on above: Performed By: #### B MP, CDP, HEPXA #### [address] [address] Buffer Operator: Ramsey Rodriguez MD Platelets (Bld) [#/Vol] 144 10*3/uL Normal 138-453 [facility] Comment on above: Performed By: #### B MP, CDP, HEPXA #### [facility] [address] [place] [address] Buffer Operator: Ramsey Rodriguez MD RBC (Bld) [#/Vol] 3.31 10*6/uL Low 4.21-5.77 [facility] Comment on above: Performed By: #### B MP, CDP, HEPXA #### [address] [address] Buffer Operator: Ramsey Rodriguez MD RBC morphology finding Nom (Bld) ANISOCYTOSIS PRESENT Normal [facility] Comment on above: Performed By: #### B MP, CDP, HEPXA #### [address] [address] Buffer Operator: Ramsey Rodriguez MD WBC (Bld) [#/Vol] 5.1 10*3/uL Normal 3.5-11.3 [facility] Comment on above: Performed By: #### B MP, CDP, HEPXA #### [address] [address] Buffer Operator: Ramsey Rodriguez MD Heparin Anti-Xaon 08-29-2023 Heparin Anti-Xa 0.35 IU/L Normal [facility] Comment on above: Performed By: #### H EPXA, CBC, PTT, PT #### [address] [address] Buffer Operator: Ramsey Rodriguez MD Heparin Anti-Xa 0.38 IU/L Normal [facility] Comment on above: Performed By: #### B MP, TROPI #### [address] [address] Buffer Operator: Ramsey Rodriguez MD Heparin Anti-Xa 0.40 IU/L Normal [facility] Comment on above: Performed By: #### B MP, CDP, HEPXA #### [address] [address] Buffer Operator: Ramsey Rodriguez MD Magnesiumon 08-29-2023 Magnesium [Mass/Vol] 2.1 mg/dL Normal 1.6-2.4 [facility] Comment on above: Performed By: #### B MP, CDP, HEPXA #### [address] [address] Buffer Operator: Ramsey Rodriguez MD Phosphorus, Inorg.on 024 Phosphorus, Inorg. 2.7 mg/dL Normal 2.5-4.5 [facility] Comment on above: Performed By: #### B FABIANO LEON, HEPXA #### [facility] [address] [place] [address] Buffer Operator: Ramsey Rodriguez MD Troponinon 08-29-2023 Troponin, High Sens 142 ng/L Critically high 0-22 [facility] Comment on above: Result Comment: High Sensitivity Troponin values cannot be compared with other Troponin methodologies. Previous Alert Value Reported Performed By: #### T ROPI #### [address] [address] Buffer Operator: Ramsey Rodriguez MD Troponin, High Sens 159 ng/L Critically high 022 [facility] Comment on above: Result Comment: High Sensitivity Troponin values cannot be compared with other Troponin methodologies. Previous Alert Value Reported Performed By: #### B FABIANO LEON, HEPXA #### [facility] [address] [place] [address] Buffer Operator: Ramsey Rodriguez MD Troponin, High Sens 162 ng/L Critically high 0-22 [facility] Comment on above: Result Comment: High Sensitivity Troponin values cannot be compared with other Troponin methodologies. Previous Alert Value Reported Performed By: #### B FABIANO LEON, HEPXA #### [facility] [address] [place] [address] Buffer Operator: Ramsey Rodriguez MD APTTon 08-28-2023 aPTT Coag (Bld) [Time] 28.4 s Normal 23.0-36.5 [facility] Comment on above: Result Comment: IV Heparin Therapy Range: 66.0-92.0 sec Performed By: #### H EPXA, CBC, PTT, PT #### [facility] [address] [place] [address] Buffer Operator: Ramsey Rodriguez MD Basic Metabolic Profon 08-27 Anion gap [Moles/Vol] 8 mmol/L Low 9-16 [facility] Comment on above: Performed By: #### B MP, TROPI #### [facility] [address] [place] [address] Buffer Operator: Ramsey Rodriguez MD Calcium [Mass/Vol] 8.3 mg/dL Low 8.6-10.4 [facility] Comment on above: Performed By: #### B MP, TROPI #### [facility] [address] [place] [address] Buffer Operator: Ramsey Rodriguez MD Chloride [Moles/Vol] 103 mmol/L Normal 98-107 [facility] Comment on above: Performed By: #### B MP, TROPI #### [facility] [address] [place] [address] Buffer Operator: Ramsey Rodriguez MD CO2 [Moles/Vol] 27 mmol/L Normal 20-31 [facility] Comment on above: Performed By: #### B EDWARD, TROPI #### [facility] [address] [place] [address] Buffer Operator: Ramsey Rodriguez MD Creatinine [Mass/Vol] 0.5 mg/dL Low 0.70-1.20 [facility] Comment on above: Performed By: #### B MP, TROPI #### [address] [address] Buffer Operator: Ramsey Rodriguez MD GFR/1.73 sq M.predicted among non-blacks MDRD (S/P/Bld) [Vol rate/Area] mL/min/{1.73_m2} Normal >60 [facility] Comment on above: Result Comment: These results [...] Performed By: #### B EDWARD TROPI #### [facility] [address] [place] [address] Buffer Operator: Ramsey Rodriguez MD Glucose [Mass/Vol] 112 mg/dL High 74-99 [facility] Comment on above: Performed By: #### B EDWARD TROPI #### [facility] [address] [place] [address] Buffer Operator: Ramsey Rodriguez MD Potassium [Moles/Vol] 3.7 mmol/L Normal 3.7-5.3 [facility] Comment on above: Performed By: #### B EDWARD TROPI #### [facility] [address] [place] [address] Buffer Operator: Ramsey Rodriguez MD Sodium [Moles/Vol] 138 mmol/L Normal 136-145 [facility] Comment on above: Performed By: #### B EDWARD TROPI #### [facility] [address] [place] [address] Buffer Operator: Ramsey Rodriguez MD Urea nitrogen [Mass/Vol] 9 mg/dL Normal 8-23 [facility] Comment on above: Performed By: #### B EDWARD TROPI #### [facility] [address] [place] [address] Buffer Operator: Ramsey Rodriguez MD Anion gap [Moles/Vol] 8 mmol/L Low 9-16 [facility] Comment on above: Performed By: #### T ROPI #### [facility] [address] [place] [address] Buffer Operator: Ramsey Rodriguez MD Chloride [Moles/Vol] 105 mmol/L Normal 98-107 [facility] Comment on above: Performed By: #### T ROPI #### [facility] [address] [place] [address] Buffer Operator: Ramsey Rodriguez MD Potassium [Moles/Vol] 3.5 mmol/L Low 3.7-5.3 [facility] Comment on above: Performed By: #### T ROPI #### [address] [address] Buffer Operator: Ramsey Rodriguez MD Sodium [Moles/Vol] 139 mmol/L Normal 136-145 [facility] Comment on above: Performed By: #### T ROPI #### [address] [address] Buffer Operator: Ramsey Rodriguez MD Calcium [Mass/Vol] 7.9 mg/dL Low 8.6-10.4 [facility] Comment on above: Performed By: #### T ROPI #### [address] [address] Buffer Operator: Ramsey Rodriguez MD CO2 [Moles/Vol] 26 mmol/L Normal 20-31 [facility] Comment on above: Performed By: #### T ROPI #### [address] [address] Buffer Operator: Ramsey Rodriguez MD Creatinine [Mass/Vol] 0.5 mg/dL Low 0.70-1.20 [facility] Comment on above: Performed By: #### T ROPI #### [address] [address] Buffer Operator: Ramsey Rodriguez MD GFR/1.73 sq M.predicted among non-blacks MDRD (S/P/Bld) [Vol rate/Area] mL/min/{1.73_m2} Normal >60 [facility] Comment on above: Result Comment: These results [...] secretion. Performed By: #### T ROPI #### [address] [address] Buffer Operator: Ramsey Rodriguez MD Glucose [Mass/Vol] 106 mg/dL High 74-99 [facility] Comment on above: Performed By: #### T ROPI #### [address] [address] Buffer Operator: Ramsey Rodriguez MD Urea nitrogen [Mass/Vol] 10 mg/dL Normal 8-23 [facility] Comment on above: Performed By: #### T MICHELETI #### [address] [address] Buffer Operator: Ramsey Rodriguez MD CBCon 08-28-2023 Erythrocyte distribution width (RBC) [Ratio] 15.6 % High 11.8-14.4 [facility] Comment on above: Performed By: #### H EPXA, CBC, PTT, PT #### [address] [address] Buffer Operator: Ramsey Rodriguez MD Hematocrit (Bld) [Volume fraction] 34.1 % Low 40.7-50.3 [facility] Comment on above: Performed By: #### H EPXA, CBC, PTT, PT #### [facility] [address] [place] [address] Buffer Operator: Ramsey Rodriguez MD Hemoglobin (Bld) [Mass/Vol] 10.7 g/dL Low 13.0-17.0 [facility] Comment on above: Performed By: #### H EPXA, CBC, PTT, PT #### [facility] [address] [place] [address] Buffer Operator: Ramsey Rodriguez MD MCH (RBC) [Entitic mass] 30.5 pg Normal 25.2-33.5 [facility] Comment on above: Performed By: #### H EPXA, CBC, PTT, PT #### [address] [address] Buffer Operator: Ramsey Rodriguez MD MCHC (RBC) [Mass/Vol] 31.4 g/dL Normal 28.4-34.8 [facility] Comment on above: Performed By: #### H EPXA, CBC, PTT, PT #### [address] [address] Buffer Operator: Ramsey Rodriguez MD MCV (RBC) [Entitic vol] 97.2 fL Normal 82.6-102.9 [facility] Comment on above: Performed By: #### H EPXA, CBC, PTT, PT #### [address] [address] Buffer Operator: Ramsey Rodriguez MD NRBC Automated 0.0 per 100 WBC Normal 0.0 [facility] Comment on above: Performed By: #### H EPXA, CBC, PTT, PT #### [address] [address] Buffer Operator: Ramsey Rodriguez MD Platelet mean volume (Bld) [Entitic vol] 10.2 fL Normal 8.1-13.5 [facility] Comment on above: Performed By: #### H EPXA, CBC, PTT, PT #### [address] [address] Buffer Operator: Ramsey Rodriguez MD Platelets (Bld) [#/Vol] 166 10*3/uL Normal 138-453 [facility] Comment on above: Performed By: #### H EPXA, CBC, PTT, PT #### [address] [address] Buffer Operator: Ramsey Rodriguez MD RBC (Bld) [#/Vol] 3.51 10*6/uL Low 4.21-5.77 [facility] Comment on above: Performed By: #### H EPXA, CBC, PTT, PT #### [address] [address] Buffer Operator: Ramsey Rodriguez MD WBC (Bld) [#/Vol] 6.5 10*3/uL Normal 3.5-11.3 [facility] Comment on above: Performed By: #### H EPXA, CBC, PTT, PT #### [address] [address] Buffer Operator: Ramsey Rodriguez MD CBC with Diffon 08-28-2023 Abs. Basophil <0.03 Normal 0.00-0.20 [facility] Comment on above: Performed By: #### T ROPI #### [place] [address] Buffer Operator: Ramsey Rodriguez MD Abs.Imm.Granulocyte <0.03 Normal 0.00-0.30 [facility] Comment on above: Performed By: #### T ROPI #### [address] [address] Buffer Operator: Ramsey Rodriguez MD Abs.Neutrophil (Seg) 4.13 k/uL Normal 1.50-8.10 [facility] Comment on above: Performed By: #### T ROPI #### [address] [address] Buffer Operator: Ramsey Rodriguez MD Basophils/100 WBC (Bld) 0 % Normal 0-2 [facility] Comment on above: Performed By: #### T ROPI #### [address] [address] Buffer Operator: Ramsey Rodriguez MD Eosinophils (Bld) [#/Vol] 0.27 10*3/uL Normal 0.00-0.44 [facility] Comment on above: Performed By: #### T ROPI #### [place] [address] Buffer Operator: Ramsey Rodriguez MD Eosinophils/100 WBC (Bld) 5 % High 1-4 [facility] Comment on above: Performed By: #### T ROPI #### [place] [address] Buffer Operator: Ramsey Rodriguez MD Erythrocyte distribution width (RBC) [Ratio] 15.7 % High 11.8-14.4 [facility] Comment on above: Performed By: #### T ROPI #### [place] [address] Buffer Operator: Ramsey Rodriguez MD Hematocrit (Bld) [Volume fraction] 34.6 % Low 40.7-50.3 [facility] Comment on above: Performed By: #### T ROPI #### [place] [address] Buffer Operator: Ramsey Rodriguez MD Hemoglobin (Bld) [Mass/Vol] 10.5 g/dL Low 13.0-17.0 [facility] Comment on above: Performed By: #### T ROPI #### [place] [address] Buffer Operator: Ramsey Rodriguez MD Immature granulocytes/100 WBC (Bld) 0 % Normal 0 [facility] Comment on above: Performed By: #### T ROPI #### [place] [address] Buffer Operator: Ramsey Rodriguez MD Lymphocytes (Bld) [#/Vol] 1.01 10*3/uL Low 1.10-3.70 [facility] Comment on above: Performed By: #### T ROPI #### [address] [address] Buffer Operator: Ramsey Rodriguez MD Lymphocytes/100 WBC (Bld) 17 % Low 24-43 [facility] Comment on above: Performed By: #### T ROPI #### [address] [address] Buffer Operator: Ramsey Rodriguez MD MCH (RBC) [Entitic mass] 30.8 pg Normal 25.2-33.5 [facility] Comment on above: Performed By: #### T ROPI #### [place] [address] Buffer Operator: Ramsey Rodriguez MD MCHC (RBC) [Mass/Vol] 30.3 g/dL Normal 28.4-34.8 [facility] Comment on above: Performed By: #### T ROPI #### [address] [address] Buffer Operator: Ramsey Rodriguez MD MCV (RBC) [Entitic vol] 101.5 fL Normal 82.6-102.9 [facility] Comment on above: Performed By: #### T ROPI #### [address] [address] Buffer Operator: Ramsey Rodriguez MD Monocytes (Bld) [#/Vol] 0.39 10*3/uL Normal 0.10-1.20 [facility] Comment on above: Performed By: #### T ROPI #### [address] [address] Buffer Operator: Ramsey Rodriguez MD Monocytes/100 WBC (Bld) 7 % Normal 3-12 [facility] Comment on above: Performed By: #### T ROPI #### [address] [address] Buffer Operator: Ramsey Rodriguez MD Neutrophil (Seg) 71 % High 36-65 [facility] Comment on above: Performed By: #### T ROPI #### [address] [address] Buffer Operator: Ramsey Rodriguez MD NRBC Automated 0.0 per 100 WBC Normal 0.0 [facility] Comment on above: Performed By: #### T ROPI #### [address] [address] Buffer Operator: Ramsey Rodriguez MD Platelet mean volume (Bld) [Entitic vol] 10.3 fL Normal 8.1-13.5 [facility] Comment on above: Performed By: #### T ROPI #### [address] [address] Buffer Operator: Ramsey Rodriguez MD Platelets (Bld) [#/Vol] 145 10*3/uL Normal 138-453 [facility] Comment on above: Performed By: #### T ROPI #### [address] [address] Buffer Operator: Ramsey Rodriguez MD RBC (Bld) [#/Vol] 3.41 10*6/uL Low 4.21-5.77 [facility] Comment on above: Performed By: #### T ROPI #### [address] [address] Buffer Operator: Ramsey Rodriguez MD RBC morphology finding Nom (Bld) ANISOCYTOSIS PRESENT Normal [facility] Comment on above: Performed By: #### T ROPI #### [address] [address] Buffer Operator: Ramsey Rodriguez MD WBC (Bld) [#/Vol] 5.8 10*3/uL Normal 3.5-11.3 [facility] Comment on above: Performed By: #### T ROPI #### [employer] [address] [place], [place] [id number] Buffer Operator: Ramsey Rodriguez MD FL MODIFIED BARIUM SWALLOW W VIDEOon 08-28-2023 FL MODIFIED BARIUM SWALLOW W VIDEO EXAMINATION: MODIFIED BARIUM SWALLOW WAS PERFORMED IN CONJUNCTION WITH SPEECH PATHOLOGY SERVICES TECHNIQUE: Under fluoroscopic evaluation cineradiography/videor adiography recordings were performed in conjunction with the speech-language pathologist (BEVELER). Various liquid, solid and/or semi-solid barium preparations were used to assess swallowing function. FLUOROSCOPY DOSE AND TYPE: Radiation Exposure Index: DAP 24.910xIkoc1, COMPARISON: None HISTORY: ORDERING SYSTEM PROVIDED HISTORY: dysphagia TECHNOLOGIST PROVIDED HISTORY: dysphagia FINDINGS: Thin liquid: Given by teaspoon no laryngeal penetration or aspiration. Given by straw there is trace laryngeal penetration. No aspiration. Minong thick liquid: Given by teaspoon no laryngeal [...] Christiano Cohen MD 08/28/23 Final result Normal [facility] Glucose,Whole Bloodon 2023 Glucose [Mass/Vol] 86 mg/dL Normal 75-110 [facility] Glucose [Mass/Vol] 87 mg/dL Normal 75-110 [facility] Glucose [Mass/Vol] 105 mg/dL Normal 75-110 [facility] Heparin Anti-Xaon 08-28-2023 Heparin Anti-Xa 0.22 IU/L Normal [facility] Comment on above: Performed By: #### H EPXA, CBC, PTT, PT #### [employer] [address] [place], [place] [phone] Buffer Operator: Ramsey Rodriguez MD Magnesiumon 08-28-2023 Magnesium [Mass/Vol] 2.4 mg/dL Normal 1.6-2.4 [facility] Comment on above: Performed By: #### H EPXA, CBC, PTT, PT #### [facility] [address] [place] [address] Buffer Operator: Ramsey Rodriguez MD Magnesium [Mass/Vol] 1.7 mg/dL Normal 1.6-2.4 [facility] Comment on above: Performed By: #### T ROPI #### [facility] [address] [place] [address] Buffer Operator: Ramsey Rodriguez MD PTon 08-28-2023 INR Coag (PPP) [Relative time] 1.0 {INR} Normal [facility] Comment on above: Result Comment: Therapeutic Range: Moderate Anticoagulant Intensity: INR = 2.0-3.0 High Anticoagulant Intensity: INR = 2.5-3.5 Performed By: #### H EPXA, CBC, PTT, PT #### [facility] [address] [place] [address] Buffer Operator: Ramsey Rodriguez MD PT Coag (PPP) [Time] 13.5 s Normal 11.7-14.9 [facility] Comment on above: Performed By: #### H EPXA, CBC, PTT, PT #### [facility] [address] [place] [address] Buffer Operator: Ramsey Rodriguez MD Phosphorus, Inorg.on 024 Phosphorus, Inorg. 2.2 mg/dL Low 2.5-4.5 [facility] Comment on above: Performed By: #### H EPXA, CBC, PTT, PT #### [facility] [address] [place] [address] Buffer Operator: Ramsey Rodriguez MD Phosphorus, Inorg. 2.4 mg/dL Low 2.5-4.5 [facility] Comment on above: Performed By: #### T ROPI #### [facility] [address] [place] [address] Buffer Operator: Ramsey Rodriguez MD Troponinon 08-28-2023 Troponin, High Sens 142 ng/L Critically high 0-22 [facility] Comment on above: Result Comment: High Sensitivity Troponin values cannot be compared with other Troponin methodologies. Previous Alert Value Reported Performed By: #### H EPXA, CBC, PTT, PT #### [facility] [place] [address] Buffer Operator: Ramsey Rodriguez MD Troponin, High Sens 138 ng/L Critically high 0-22 [facility] Comment on above: Result Comment: High Sensitivity Troponin values cannot be compared with other Troponin methodologies. Performed By: #### B MP, TROPI #### [address] [phone] Buffer Operator: Ramsey Rodriguez MD XR CHEST PORTABLEon 08-28-19 [...] to the prior study. Interpreted by: Rafat Duomnt MD Signed by: Rafat Dumont MD 08/28/23 Final result Normal [facility] Basic Metabolic Profon 08-26 Anion gap [Moles/Vol] 7 mmol/L Low 9-16 [facility] Comment on above: Performed By: #### H EPXA, CBC, PTT, PT #### [facility] [address] [place], [place] [id number] Buffer Operator: Ramsey Rodriguez MD Calcium [Mass/Vol] 8.0 mg/dL Low 8.6-10.4 [facility] Comment on above: Performed By: #### H EPXA, CBC, PTT, PT #### [facility] [address] [place] [address] Buffer Operator: Ramsey Rodriguez MD Chloride [Moles/Vol] 107 mmol/L Normal 98-107 [facility] Comment on above: Performed By: #### H EPXA, CBC, PTT, PT #### [facility] [address] [place] [address] Buffer Operator: Ramsey Rodriguez MD CO2 [Moles/Vol] 26 mmol/L Normal 20-31 [facility] Comment on above: Performed By: #### H EPXA, CBC, PTT, PT #### [facility] [address] [place] [address] Buffer Operator: Ramsey Rodriguez MD Creatinine [Mass/Vol] 0.6 mg/dL Low 0.70-1.20 [facility] Comment on above: Performed By: #### H EPXA, CBC, PTT, PT #### [facility] [address] [place] [address] Buffer Operator: Ramsey Rodriguez MD GFR/1.73 sq M.predicted among non-blacks MDRD (S/P/Bld) [Vol rate/Area] mL/min/{1.73_m2} Normal >60 [facility] Comment on above: Result Comment: These results [...] #### H EPXA, CBC, PTT, PT #### [facility] [address] [place] [address] Buffer Operator: Ramsey Rodriguez MD Glucose [Mass/Vol] 104 mg/dL High 74-99 [facility] Comment on above: Performed By: #### H EPXA, CBC, PTT, PT #### [facility] [address] [place] [address] Buffer Operator: Ramsey Rodriguez MD Potassium [Moles/Vol] 3.6 mmol/L Low 3.7-5.3 [facility] Comment on above: Performed By: #### H EPXA, CBC, PTT, PT #### [facility] [address] [place] [address] Buffer Operator: Ramsey Rodriguez MD Sodium [Moles/Vol] 140 mmol/L Normal 136-145 [facility] Comment on above: Performed By: #### H EPXA, CBC, PTT, PT #### [facility] [address] [place] [address] Buffer Operator: Ramsey Rodriguez MD Urea nitrogen [Mass/Vol] 14 mg/dL Normal 8-23 [facility] Comment on above: Performed By: #### H EPXA, CBC, PTT, PT #### [facility] [address] [place] [address] Buffer Operator: Ramsey Rodriguez MD CBC with Diffon 08-27-2023 Abs. Basophil <0.03 Normal 0.00-0.20 [facility] Comment on above: Performed By: #### H EPXA, CBC, PTT, PT #### [facility] [address] [place] [address] Buffer Operator: Ramsey Rodriguez MD Abs.Imm.Granulocyte <0.03 Normal 0.00-0.30 [facility] Comment on above: Performed By: #### H EPXA, CBC, PTT, PT #### [facility] [address] [place] [address] Buffer Operator: Ramsey Rodriguez MD Abs.Neutrophil (Seg) 3.93 k/uL Normal 1.50-8.10 [facility] Comment on above: Performed By: #### H EPXA, CBC, PTT, PT #### [facility] [address] [place] [address] Buffer Operator: Ramsey Rodriguez MD Basophils/100 WBC (Bld) 0 % Normal 0-2 [facility] Comment on above: Performed By: #### H EPXA, CBC, PTT, PT #### [facility] [address] [place] [address] Buffer Operator: Ramsey Rodriguez MD Eosinophils (Bld) [#/Vol] 0.25 10*3/uL Normal 0.00-0.44 [facility] Comment on above: Performed By: #### H EPXA, CBC, PTT, PT #### [address] [address] Buffer Operator: Ramsey Rodriguez MD Eosinophils/100 WBC (Bld) 5 % High 1-4 [facility] Comment on above: Performed By: #### H EPXA, CBC, PTT, PT #### [facility] [address] [place] [address] Buffer Operator: Ramsey Rodriguez MD Erythrocyte distribution width (RBC) [Ratio] 15.8 % High 11.8-14.4 [facility] Comment on above: Performed By: #### H EPXA, CBC, PTT, PT #### [facility] [address] [place] [address] Buffer Operator: Ramsey Rodriguez MD Hematocrit (Bld) [Volume fraction] 33.2 % Low 40.7-50.3 [facility] Comment on above: Performed By: #### H EPXA, CBC, PTT, PT #### [facility] [address] [place] [address] Buffer Operator: Ramsey Rodriguez MD Hemoglobin (Bld) [Mass/Vol] 10.3 g/dL Low 13.0-17.0 [facility] Comment on above: Performed By: #### H EPXA, CBC, PTT, PT #### [facility] [address] [place] [address] Buffer Operator: Ramsey Rodriguez MD Immature granulocytes/100 WBC (Bld) 0 % Normal 0 [facility] Comment on above: Performed By: #### H EPXA, CBC, PTT, PT #### [facility] [address] [place] [address] Buffer Operator: Ramsey Rodriguez MD Lymphocytes (Bld) [#/Vol] 1.01 10*3/uL Low 1.10-3.70 [facility] Comment on above: Performed By: #### H EPXA, CBC, PTT, PT #### [address] [address] Buffer Operator: Ramsey Rodriguez MD Lymphocytes/100 WBC (Bld) 18 % Low 24-43 [facility] Comment on above: Performed By: #### H EPXA, CBC, PTT, PT #### [facility] [address] [place] [address] 56047 Buffer Operator: Ramsey Rodriguez MD MCH (RBC) [Entitic mass] 30.6 pg Normal 25.2-33.5 [facility] Comment on above: Performed By: #### H EPXA, CBC, PTT, PT #### [facility] [address] [place] [address] 07086 Buffer Operator: Ramsey Rodriguez MD MCHC (RBC) [Mass/Vol] 31.0 g/dL Normal 28.4-34.8 [facility] Comment on above: Performed By: #### H EPXA, CBC, PTT, PT #### [facility] [address] [place] [address] 17722 Buffer Operator: Ramsey Rodriguez MD MCV (RBC) [Entitic vol] 98.5 fL Normal 82.6-102.9 [facility] Comment on above: Performed By: #### H EPXA, CBC, PTT, PT #### [address] [address] Buffer Operator: aRmsey Rodriguez MD Monocytes (Bld) [#/Vol] 0.33 10*3/uL Normal 0.10-1.20 [facility] Comment on above: Performed By: #### H EPXA, CBC, PTT, PT #### [facility] [address] [place] [address] 75141 Buffer Operator: Ramsey Rodriguez MD Monocytes/100 WBC (Bld) 6 % Normal 3-12 [facility] Comment on above: Performed By: #### H EPXA, CBC, PTT, PT #### [address] [address] Buffer Operator: Ramsey Rodriguez MD Neutrophil (Seg) 71 % High 36-65 [facility] Comment on above: Performed By: #### H EPXA, CBC, PTT, PT #### [facility] [address] [place] [address] 87[address] Buffer Operator: Ramsey Rodriguez MD NRBC Automated 0.0 per 100 WBC Normal 0.0 [facility] Comment on above: Performed By: #### H EPXA, CBC, PTT, PT #### [facility] [address] [place] [address] 34566 Buffer Operator: Ramsey Rodriguez MD Platelet mean volume (Bld) [Entitic vol] 10.2 fL Normal 8.1-13.5 [facility] Comment on above: Performed By: #### H EPXA, CBC, PTT, PT #### [facility] [address] [place] [address] 19320 Buffer Operator: Ramsey Rodriguez MD Platelets (Bld) [#/Vol] 136 10*3/uL Low 138-453 [facility] Comment on above: Performed By: #### H EPXA, CBC, PTT, PT #### [facility] [address] [place] [address]25 Buffer Operator: Ramsey Rodriguez MD RBC (Bld) [#/Vol] 3.37 10*6/uL Low 4.21-5.77 [facility] Comment on above: Performed By: #### H EPXA, CBC, PTT, PT #### [facility] [address] [place] [address] 51654 Buffer Operator: Ramsey Rodriguez MD RBC morphology finding Nom (Bld) ANISOCYTOSIS PRESENT Normal [facility] Comment on above: Performed By: #### H EPXA, CBC, PTT, PT #### [facility] [address] [place] [address] 19773 Buffer Operator: Ramsey Rodriguez MD WBC (Bld) [#/Vol] 5.6 10*3/uL Normal 3.5-11.3 [facility] Comment on above: Performed By: #### H EPXA, CBC, PTT, PT #### [facility] [address] [place] [address] 39064 Buffer Operator: Ramsey Rodriguez MD Glucose,Whole Bloodon 2023 Glucose [Mass/Vol] 103 mg/dL Normal 75-110 [facility] Glucose [Mass/Vol] 99 mg/dL Normal 75-110 [facility] Glucose [Mass/Vol] 95 mg/dL Normal 75-110 [facility] Magnesiumon 08-27-2023 Magnesium [Mass/Vol] 2.0 mg/dL Normal 1.6-2.4 [facility] Comment on above: Performed By: #### H EPXA, CBC, PTT, PT #### [address] [address] Buffer Operator: Ramsey Rodriguez MD Phosphorus, Inorg.on 024 Phosphorus, Inorg. 2.4 mg/dL Low 2.5-4.5 [facility] Comment on above: Performed By: #### H EPXA, CBC, PTT, PT #### [address] [address] Buffer Operator: Ramsey Rodriguez MD Urinalysis, Routineon 2023 Bilirubin, SemiQt,Ur Negative Normal NEG [facility] Comment on above: Performed By: #### B MP, CDP, HEPXA #### [facility] [address] [place] [address] 81077 Buffer Operator: Ramsey Rodriguez MD Blood, Urine Negative Normal NEG [facility] Comment on above: Performed By: #### B MP, CDP, HEPXA #### [facility] [address] [place] [address] 99660 Buffer Operator: Ramsey Rodriguez MD Clarity (U) Clear Normal CLEAR [facility] Comment on above: Performed By: #### B MP, CDP, HEPXA #### [facility] [address] [place] [address] 60234 Buffer Operator: Ramsey Rodriguez MD Color (U) Yellow Normal YEL [facility] Comment on above: Performed By: #### B MP, CDP, HEPXA #### [facility] [address] [place] [address] 57564 Buffer Operator: Ramsey Rodriguez MD Comment Microscopic exam not performed based on chemical results unless requested in Normal [facility] Comment on above: Result Comment: orig inal order. Performed By: #### B MP, CDP, HEPXA #### [facility] [address] [place] [address] 6[address] Buffer Operator: Ramsey Rodriguez MD Glucose Ql (U) Negative Normal NEG [facility] Comment on above: Performed By: #### B MP, CDP, HEPXA #### [address] [address] Buffer Operator: Ramsey Rodriguez MD Ketones Ql (U) Negative Normal NEG [facility] Comment on above: Performed By: #### B MP, CDP, HEPXA #### [address] [address] Buffer Operator: Ramsey Rodriguez MD Leukocyte esterase Test strip Ql (U) Negative Normal NEG [facility] Comment on above: Performed By: #### B MP, CDP, HEPXA #### [address] [address] Buffer Operator: Ramsey Rodriguez MD Nitrite,Ur Negative Normal NEG [facility] Comment on above: Performed By: #### B MP, CDP, HEPXA #### [address] [address] Buffer Operator: Ramsey Rodriguez MD PH,Ur 5.5 Normal 5.0-8.0 [facility] Comment on above: Performed By: #### B MP, CDP, HEPXA #### [address] [address] Buffer Operator: Ramsey Rodriguez MD Protein Ql (U) Negative Normal NEG [facility] Comment on above: Performed By: #### B MP, CDP, HEPXA #### [address] [address] Buffer Operator: Ramsey Rodriguez MD Spec. Firth,Ur 1.008 Normal 1.005-1.030 [facility] Comment on above: Performed By: #### B MP, CDP, HEPXA #### [facility] [address] [place] [address] 550[address] Buffer Operator: Ramsey Rodriguez MD Urobilinogen,Ur Normal Normal 0.0-1.0 [facility] Comment on above: Performed By: #### B MP, CDP, HEPXA #### [employer] [address] [place] [address] Buffer Operator: Ramsey Rodriguez MD XR CHEST PORTABLEon 08-27-19 [...] Alex Martinez MD 08/27/23 Final result Normal [facility] Arterial Bld Gas,POCon 08-25 Eliazar Test Positive Normal [facility] FIO2 60.0 Normal [facility] HCO3 (Bld) [Moles/Vol] 26.6 mmol/L Normal 21.0-28.0 [facility] O2 Device BIPAP Normal [facility] Oxygen saturation in Blood 99.1 % High 94.0-98.0 [facility] pCO2, Arterial 40.5 mm Hg Normal 35.0-48.0 [facility] pH, Arterial 7.426 Normal 7.350-7.450 [facility] pO2, Arterial 135.5 mm Hg High 83.0-108.0 [facility] Positive Base Excess (calc) 2.1 mmol/L Normal 0.0-3.0 [facility] Site Drawn Right Radial Artery Normal [facility] Basic Metabolic Profon 08-25 Anion gap [Moles/Vol] 5 mmol/L Low 9-16 [facility] Comment on above: Performed By: #### B MP, TROPI #### [employer] [address] [place], [place] [id number] Buffer Operator: Ramsey Rodriguez MD Calcium [Mass/Vol] 8.2 mg/dL Low 8.6-10.4 [facility] Comment on above: Performed By: #### B EDWARD, TROPI #### [facility] [address] [place] [address] 617[address] Buffer Operator: Ramsey Rodriguez MD Chloride [Moles/Vol] 107 mmol/L Normal 98-107 [facility] Comment on above: Performed By: #### B MP, TROPI #### [facility] [address] [place] [address] 9[address]17 Buffer Operator: Ramsey Rodriguez MD CO2 [Moles/Vol] 26 mmol/L Normal 20-31 [facility] Comment on above: Performed By: #### B EDWARD, TROPI #### [address] [address] Buffer Operator: Ramsey Rodriguez MD Creatinine [Mass/Vol] 0.6 mg/dL Low 0.70-1.20 [facility] Comment on above: Performed By: #### B EDWARD, TROPI #### [address] [address] Buffer Operator: Ramsey Rodriguez MD GFR/1.73 sq M.predicted among non-blacks MDRD (S/P/Bld) [Vol rate/Area] mL/min/{1.73_m2} Normal >60 [facility] Comment on above: Result Comment: These results [...] Performed By: #### B MP, TROPI #### [address] [address] Buffer Operator: Ramsey Rodriguez MD Glucose [Mass/Vol] 92 mg/dL Normal 74-99 [facility] Comment on above: Performed By: #### B EDWARD TROPI #### [address] [address] Buffer Operator: Ramsey Rodriguez MD Potassium [Moles/Vol] 4.2 mmol/L Normal 3.7-5.3 [facility] Comment on above: Performed By: #### B EDWARD TROPI #### [facility] [address] [place] [address] 43770 Buffer Operator: Ramsey Rodriguez MD Sodium [Moles/Vol] 138 mmol/L Normal 136-145 [facility] Comment on above: Performed By: #### B EDWARD TROPI #### [address] [address] Buffer Operator: Ramsey Rodriguez MD Urea nitrogen [Mass/Vol] 18 mg/dL Normal 8-23 [facility] Comment on above: Performed By: #### B EDWARD TROPI #### [address] [address] Buffer Operator: Ramsey Rodriguez MD CBC with Diffon 08-26-2023 Abs. Basophil <0.03 Normal 0.00-0.20 [facility] Comment on above: Performed By: #### Nicol LEON TROPI #### [facility] [address] [place] [address] Buffer Operator: Ramsey Rodriguez MD Abs.Imm.Granulocyte <0.03 Normal 0.00-0.30 [facility] Comment on above: Performed By: #### B EDWARD TROPI #### [facility] [address] [place] [address] 17689 Buffer Operator: Ramsey Rodriguez MD Abs.Neutrophil (Seg) 4.44 k/uL Normal 1.50-8.10 [facility] Comment on above: Performed By: #### B EDWARD, TROPI #### [facility] [address] [place] [address] 46189 Buffer Operator: Ramsey Rodriguez MD Basophils/100 WBC (Bld) 0 % Normal 0-2 [facility] Comment on above: Performed By: #### B EDWARD, TROPI #### [facility] [address] [place] [address] 04581 Buffer Operator: Ramsey Rodriguez MD Eosinophils (Bld) [#/Vol] 0.17 10*3/uL Normal 0.00-0.44 [facility] Comment on above: Performed By: #### B EDWARD, TROPI #### [facility] [address] [place] [address] 04874 Buffer Operator: Ramsey Rodriguez MD Eosinophils/100 WBC (Bld) 3 % Normal 1-4 [facility] Comment on above: Performed By: #### B EDWARD, TROPI #### [facility] [address] [place] [address] 88771 Buffer Operator: Ramsey Rodriguez MD Erythrocyte distribution width (RBC) [Ratio] 15.7 % High 11.8-14.4 [facility] Comment on above: Performed By: #### B EDWARD, TROPI #### [facility] [address] [place] [address] 26672 Buffer Operator: Ramsey Rodriguez MD Hematocrit (Bld) [Volume fraction] 34.0 % Low 40.7-50.3 [facility] Comment on above: Performed By: #### B EDWARD, TROPI #### [facility] [address] [place] [address] 59140 Buffer Operator: Ramsey Rodriguez MD Hemoglobin (Bld) [Mass/Vol] 10.8 g/dL Low 13.0-17.0 [facility] Comment on above: Performed By: #### B EDWARD, TROPI #### [address] [address] Buffer Operator: Ramsey Rodriguez MD Immature granulocytes/100 WBC (Bld) 0 % Normal 0 [facility] Comment on above: Performed By: #### B MP, TROPI #### [address] [address] Buffer Operator: Ramsey Rodriguez MD Lymphocytes (Bld) [#/Vol] 1.18 10*3/uL Normal 1.10-3.70 [facility] Comment on above: Performed By: #### B EDWARD, TROPI #### [address] [address] Buffer Operator: Ramsey Rodriguez MD Lymphocytes/100 WBC (Bld) 19 % Low 24-43 [facility] Comment on above: Performed By: #### B EDWARD, TROPI #### [address] [address] Buffer Operator: Ramsey Rodriguez MD MCH (RBC) [Entitic mass] 30.7 pg Normal 25.2-33.5 [facility] Comment on above: Performed By: #### B EDWARD, TROPI #### [address] [address] Buffer Operator: Ramsey Rodriguez MD MCHC (RBC) [Mass/Vol] 31.8 g/dL Normal 28.4-34.8 [facility] Comment on above: Performed By: #### B EDWARD, TROPI #### [address] [address] Buffer Operator: Ramsey Rodriguez MD MCV (RBC) [Entitic vol] 96.6 fL Normal 82.6-102.9 [facility] Comment on above: Performed By: #### B EDWARD, TROPI #### [facility] [address] [place] [address] 28864 Buffer Operator: Ramsey Rodriguez MD Monocytes (Bld) [#/Vol] 0.41 10*3/uL Normal 0.10-1.20 [facility] Comment on above: Performed By: #### B MP, TROPI #### [address] [address] Buffer Operator: Ramsey Rodriguez MD Monocytes/100 WBC (Bld) 7 % Normal 3-12 [facility] Comment on above: Performed By: #### B MP, TROPI #### [address] [address] Buffer Operator: Ramsey Rodriguez MD Neutrophil (Seg) 71 % High 36-65 [facility] Comment on above: Performed By: #### B MP, TROPI #### [address] [address] Buffer Operator: Ramsey Rodriguez MD NRBC Automated 0.0 per 100 WBC Normal 0.0 [facility] Comment on above: Performed By: #### B EDWARD, TROPI #### [address] [address] Buffer Operator: Ramsey Rodriguez MD Platelet mean volume (Bld) [Entitic vol] 9.9 fL Normal 8.1-13.5 [facility] Comment on above: Performed By: #### B MP, TROPI #### [facility] [address] [place] [address]60 Buffer Operator: Ramsey Rodriguez MD Platelets (Bld) [#/Vol] 143 10*3/uL Normal 138-453 [facility] Comment on above: Performed By: #### B MP, TROPI #### [facility] [address] [place] [address] 01743 Buffer Operator: Ramsey Rodriguez MD RBC (Bld) [#/Vol] 3.52 10*6/uL Low 4.21-5.77 [facility] Comment on above: Performed By: #### B EDWARD TROPI #### [address] [address] Buffer Operator: Ramsey Rodriguez MD RBC morphology finding Nom (Bld) ANISOCYTOSIS PRESENT Normal [facility] Comment on above: Performed By: #### B EDWARD, TROPI #### [address] [address] Buffer Operator: Ramsey Rodriguez MD WBC (Bld) [#/Vol] 6.2 10*3/uL Normal 3.5-11.3 [facility] Comment on above: Performed By: #### B EDWARD TROPI #### [address] [address] Buffer Operator: Ramsye Rodriguez MD Gl Hemostasis TEG w/Lysison 08-26-2023 Fibrinogen, Func TEG 5.4 mm Low 15.0-32.0 [facility] Comment on above: Performed By: #### H EPXA, CBC, PTT, PT #### [address] [address] Buffer Operator: Ramsey Rodriguez MD LY30 (Lysis) TEG 0.0 % Normal 0.0-2.6 [facility] Comment on above: Performed By: #### H EPXA, CBC, PTT, PT #### [address] [address] Buffer Operator: Ramsey Rodriguez MD MA Rapid TEG <40.0 Low 52.0-70 [facility] Comment on above: Performed By: #### H EPXA, CBC, PTT, PT #### [address] [address] Buffer Operator: Ramsey Rodriguez MD R(Reaction Time) TEG >17.0 High 4.6-9.1 [facility] Comment on above: Performed By: #### H EPXA, CBC, PTT, PT #### [address] [phone] Buffer Operator: Ramsey Rodriguez MD Glucose,Whole Bloodon 2023 Glucose [Mass/Vol] 99 mg/dL Normal 75-110 [facility] Glucose [Mass/Vol] 86 mg/dL Normal 75-110 [facility] Glucose [Mass/Vol] 101 mg/dL Normal 75-110 [facility] Glucose [Mass/Vol] 86 mg/dL Normal 75-110 [facility] Magnesiumon 08-26-2023 Magnesium [Mass/Vol] 1.7 mg/dL Normal 1.6-2.4 [facility] Comment on above: Performed By: #### T ROPI #### [address] [phone] Buffer Operator: Ramsey Rodriguez MD PTon 08-26-2023 INR Coag (PPP) [Relative time] 1.1 {INR} Normal [facility] Comment on above: Result Comment: Therapeutic Range: Moderate Anticoagulant Intensity: INR = 2.0-3.0 High Anticoagulant Intensity: INR = 2.5-3.5 Performed By: #### B EDWARD, TROPI #### [address] [address] Buffer Operator: Ramsey Rodriguez MD PT Coag (PPP) [Time] 13.7 s Normal 11.7-14.9 [facility] Comment on above: Performed By: #### B EDWARD, TROPI #### [facility] [address] [place] [address] Buffer Operator: Ramsey Rodriguez MD XR CHEST PORTABLEon 08-26-19 [...] Jordy Michel MD 08/26/23 Final result Normal [facility] Basic Metab w/rfx MGon 08-24 Anion gap [Moles/Vol] 7 mmol/L Low 9-16 [facility] Comment on above: Performed By: #### T ROPI #### [address] [address] Buffer Operator: Ramsey Rodriguez MD Calcium [Mass/Vol] 7.8 mg/dL Low 8.6-10.4 [facility] Comment on above: Performed By: #### T ROPI #### [address] [address] Buffer Operator: Ramsey Rodriguez MD Chloride [Moles/Vol] 109 mmol/L High 98-107 [facility] Comment on above: Performed By: #### T ROPI #### [address] [address] Buffer Operator: Ramsey Rodrgiuez MD CO2 [Moles/Vol] 21 mmol/L Normal 20-31 [facility] Comment on above: Performed By: #### T ROPI #### [facility] [address] [place] [address] 12417 Buffer Operator: Ramsey Rodriguez MD Creatinine [Mass/Vol] 0.5 mg/dL Low 0.70-1.20 [facility] Comment on above: Performed By: #### T ROPI #### [facility] [address] [place] [address] 78204 Buffer Operator: Ramsey Rodriguez MD GFR/1.73 sq M.predicted among non-blacks MDRD (S/P/Bld) [Vol rate/Area] mL/min/{1.73_m2} Normal >60 [facility] Comment on above: Result Comment: These results [...] secretion. Performed By: #### T ROPI #### [facility] [address] [place] [address] Buffer Operator: Ramsey Rodriguez MD Glucose [Mass/Vol] 79 mg/dL Normal 74-99 [facility] Comment on above: Performed By: #### T ROPI #### [facility] [address] [place] [address]301 Buffer Operator: Ramsey Rodriguez MD Potassium [Moles/Vol] 4.5 mmol/L Normal 3.7-5.3 [facility] Comment on above: Performed By: #### T ROPI #### [facility] [address] [place] [address] Buffer Operator: Ramsey Rodriguez MD Sodium [Moles/Vol] 137 mmol/L Normal 136-145 [facility] Comment on above: Performed By: #### T ROPI #### [facility] [address] [place] [address] Buffer Operator: Ramsey Rodriguez MD Urea nitrogen [Mass/Vol] 13 mg/dL Normal 8-23 [facility] Comment on above: Performed By: #### T ROPI #### [address] [address] Buffer Operator: Ramsey Rodriguez MD CBC with Diffon 08-25-2023 Abs. Basophil <0.03 Normal 0.00-0.20 [facility] Comment on above: Performed By: #### T ROPI #### [place] [address] Buffer Operator: Ramsey Rodriguez MD Abs.Imm.Granulocyte <0.03 Normal 0.00-0.30 [facility] Comment on above: Performed By: #### T ROPI #### [place] [address] Buffer Operator: Ramsey Rodriguez MD Abs.Neutrophil (Seg) 2.56 k/uL Normal 1.50-8.10 [facility] Comment on above: Performed By: #### T ROPI #### [place] [address] Buffer Operator: Ramsey Rodriguez MD Basophils/100 WBC (Bld) 1 % Normal 0-2 [facility] Comment on above: Performed By: #### T ROPI #### [place] [address] Buffer Operator: Ramsey Rodriguez MD Eosinophils (Bld) [#/Vol] 0.18 10*3/uL Normal 0.00-0.44 [facility] Comment on above: Performed By: #### T ROPI #### [place] [address] Buffer Operator: Ramsey Rodriguez MD Eosinophils/100 WBC (Bld) 4 % Normal 1-4 [facility] Comment on above: Performed By: #### T ROPI #### [place] [address] Buffer Operator: Ramsey Rodriguez MD Erythrocyte distribution width (RBC) [Ratio] 15.8 % High 11.8-14.4 [facility] Comment on above: Performed By: #### T ROPI #### [address] [address] Buffer Operator: Ramsey Rodriguez MD Hematocrit (Bld) [Volume fraction] 33.3 % Low 40.7-50.3 [facility] Comment on above: Performed By: #### T ROPI #### [address] [address] Buffer Operator: Ramsey Rodriguez MD Hemoglobin (Bld) [Mass/Vol] 10.4 g/dL Low 13.0-17.0 [facility] Comment on above: Performed By: #### T ROPI #### [address] [address] Buffer Operator: Ramsey Rodriguez MD Immature granulocytes/100 WBC (Bld) 0 % Normal 0 [facility] Comment on above: Performed By: #### T ROPI #### [address] [address] Buffer Operator: Ramsey Rodriguez MD Lymphocytes (Bld) [#/Vol] 1.22 10*3/uL Normal 1.10-3.70 [facility] Comment on above: Performed By: #### T ROPI #### [address] [address] Buffer Operator: Ramsey Rodriguez MD Lymphocytes/100 WBC (Bld) 28 % Normal 24-43 [facility] Comment on above: Performed By: #### T ROPI #### [address] [address] Buffer Operator: Ramsey Rodriguez MD MCH (RBC) [Entitic mass] 31.0 pg Normal 25.2-33.5 [facility] Comment on above: Performed By: #### T ROPI #### [address] [address] Buffer Operator: Ramsey Rodriguez MD MCHC (RBC) [Mass/Vol] 31.2 g/dL Normal 28.4-34.8 [facility] Comment on above: Performed By: #### T ROPI #### [address] [address] Buffer Operator: Ramsey Rodriguez MD MCV (RBC) [Entitic vol] 99.4 fL Normal 82.6-102.9 [facility] Comment on above: Performed By: #### T ROPI #### [address] [address] Buffer Operator: Ramsey Rodriguez MD Monocytes (Bld) [#/Vol] 0.32 10*3/uL Normal 0.10-1.20 [facility] Comment on above: Performed By: #### T ROPI #### [place] [address] Buffer Operator: Ramsey Rodriguez MD Monocytes/100 WBC (Bld) 7 % Normal 3-12 [facility] Comment on above: Performed By: #### T ROPI #### [place] [address] Buffer Operator: aRmsey Rodriguez MD Neutrophil (Seg) 60 % Normal 36-65 [facility] Comment on above: Performed By: #### T ROPI #### [place] [address] Buffer Operator: Ramsey Rodriguez MD NRBC Automated 0.0 per 100 WBC Normal 0.0 [facility] Comment on above: Performed By: #### T ROPI #### [place] [address] Buffer Operator: Ramsey Rodriguez MD Platelet mean volume (Bld) [Entitic vol] 10.0 fL Normal 8.1-13.5 [facility] Comment on above: Performed By: #### T ROPI #### [address] [address] [place] [address] Buffer Operator: Rmasey Rodriguez MD Platelets (Bld) [#/Vol] 143 10*3/uL Normal 138-453 [facility] Comment on above: Performed By: #### T ROPI #### [address] [address] Buffer Operator: Ramsey Rodriguez MD RBC (Bld) [#/Vol] 3.35 10*6/uL Low 4.21-5.77 [facility] Comment on above: Performed By: #### T ROPI #### [address] [address] Buffer Operator: Ramsey Rodriguez MD RBC morphology finding Nom (Bld) ANISOCYTOSIS PRESENT Normal [facility] Comment on above: Performed By: #### T ROPI #### [address] [address] Buffer Operator: Ramsey Rodriguez MD WBC (Bld) [#/Vol] 4.3 10*3/uL Normal 3.5-11.3 [facility] Comment on above: Performed By: #### T ROPI #### [address] [address] Buffer Operator: Ramsey Rodriguez MD Glucose,Whole Bloodon 2023 Glucose [Mass/Vol] 88 mg/dL Normal 75-110 [facility] Glucose [Mass/Vol] 102 mg/dL Normal 75-110 [facility] Glucose [Mass/Vol] 104 mg/dL Normal 75-110 [facility] Glucose [Mass/Vol] 80 mg/dL Normal 75-110 [facility] XR ABDOMEN (KUB) (SINGLE AP VIEW)on 08-25-2023 [...] Gerardo Stafford MD 08/25/23 Final result Normal [facility] Basic Metab w/rfx MGon 08-23 Anion gap [Moles/Vol] 6 mmol/L Low 9-16 [facility] Comment on above: Performed By: #### B FABIANO LEON, HEPXA #### [facility] [address] [place] [address] Buffer Operator: Ramsey Rodriguez MD Chloride [Moles/Vol] 108 mmol/L High 98-107 [facility] Comment on above: Performed By: #### B FABIANO LEON, HEPXA #### [facility] [address] [place] [address] Buffer Operator: Ramsey Rodriguez MD Potassium [Moles/Vol] 4.2 mmol/L Normal 3.7-5.3 [facility] Comment on above: Performed By: #### B FABIANO LEON, HEPXA #### [facility] [address] [place] [address] Buffer Operator: Ramsey Rodriguez MD Sodium [Moles/Vol] 139 mmol/L Normal 136-145 [facility] Comment on above: Performed By: #### B EDWARD CDP, HEPXA #### [facility] [address] [place] [address] Buffer Operator: Ramsey Rodriguez MD Calcium [Mass/Vol] 8.1 mg/dL Low 8.6-10.4 [facility] Comment on above: Performed By: #### B MP, CDP, HEPXA #### [facility] [address] [place] [address] Buffer Operator: Ramsey Rodriguez MD CO2 [Moles/Vol] 25 mmol/L Normal 20-31 [facility] Comment on above: Performed By: #### B MP, CDP, HEPXA #### [facility] [address] [place] [address] Buffer Operator: Ramsey Rodriguez MD Creatinine [Mass/Vol] 0.5 mg/dL Low 0.70-1.20 [facility] Comment on above: Performed By: #### B MP, CDP, HEPXA #### [facility] [address] [place] [address] Buffer Operator: Ramsey Rodriguez MD GFR/1.73 sq M.predicted among non-blacks MDRD (S/P/Bld) [Vol rate/Area] mL/min/{1.73_m2} Normal >60 [facility] Comment on above: Result Comment: These results [...] By: #### B MP, CDP, HEPXA #### [facility] [address] [place] [address] Buffer Operator: Ramsey Rodriguez MD Glucose [Mass/Vol] 105 mg/dL High 74-99 [facility] Comment on above: Performed By: #### B MP, CDP, HEPXA #### [facility] [place] [address] Buffer Operator: Ramsey Rodriguez MD Urea nitrogen [Mass/Vol] 12 mg/dL Normal 8-23 [facility] Comment on above: Performed By: #### B MP, CDP, HEPXA #### [address] [address] Buffer Operator: Ramsey Rodriguez MD CBC with Diffon 08-24-2023 Abs. Basophil <0.03 Normal 0.00-0.20 [facility] Comment on above: Performed By: #### B MP, CDP, HEPXA #### [address] [address] Buffer Operator: Ramsey Rodriguez MD Abs.Imm.Granulocyte <0.03 Normal 0.00-0.30 [facility] Comment on above: Performed By: #### B MP, CDP, HEPXA #### [address] [address] Buffer Operator: Ramsey Rodriguez MD Abs.Neutrophil (Seg) 3.28 k/uL Normal 1.50-8.10 [facility] Comment on above: Performed By: #### B MP, CDP, HEPXA #### [address] [address] Buffer Operator: Ramsey Rodriguez MD Basophils/100 WBC (Bld) 0 % Normal 0-2 [facility] Comment on above: Performed By: #### B MP, CDP, HEPXA #### [address] [address] Buffer Operator: Ramsey Rodriguez MD Eosinophils (Bld) [#/Vol] 0.29 10*3/uL Normal 0.00-0.44 [facility] Comment on above: Performed By: #### B MP, CDP, HEPXA #### [address] [address] Buffer Operator: Ramsey Rodriguez MD Eosinophils/100 WBC (Bld) 6 % High 1-4 [facility] Comment on above: Performed By: #### B MP, CDP, HEPXA #### [facility] [address] [place] [address] Buffer Operator: Ramesy Rodriguez MD Erythrocyte distribution width (RBC) [Ratio] 15.7 % High 11.8-14.4 [facility] Comment on above: Performed By: #### B MP, CDP, HEPXA #### [facility] [address] [place] [address] Buffer Operator: Ramsey Rodriguez MD Hematocrit (Bld) [Volume fraction] 33.4 % Low 40.7-50.3 [facility] Comment on above: Performed By: #### B MP, CDP, HEPXA #### [facility] [address] [place] [address] Buffer Operator: Ramsey Rodriguez MD Hemoglobin (Bld) [Mass/Vol] 10.5 g/dL Low 13.0-17.0 [facility] Comment on above: Performed By: #### B MP, CDP, HEPXA #### [facility] [address] [place] [address] Buffer Operator: Ramsey Rodriguez MD Immature granulocytes/100 WBC (Bld) 0 % Normal 0 [facility] Comment on above: Performed By: #### B MP, CDP, HEPXA #### [facility] [address] [place] [address] Buffer Operator: Ramsey Rodriguez MD Lymphocytes (Bld) [#/Vol] 0.89 10*3/uL Low 1.10-3.70 [facility] Comment on above: Performed By: #### B MP, CDP, HEPXA #### [facility] [address] [place] [address] Buffer Operator: Ramsey Rodriguez MD Lymphocytes/100 WBC (Bld) 19 % Low 24-43 [facility] Comment on above: Performed By: #### B MP, CDP, HEPXA #### [address] [address] Buffer Operator: Ramsey Rodriguez MD MCH (RBC) [Entitic mass] 30.9 pg Normal 25.2-33.5 [facility] Comment on above: Performed By: #### B MP, CDP, HEPXA #### [address] [address] Buffer Operator: Ramsey Rodriguez MD MCHC (RBC) [Mass/Vol] 31.4 g/dL Normal 28.4-34.8 [facility] Comment on above: Performed By: #### B MP, CDP, HEPXA #### [address] [address] Buffer Operator: Ramsey Rodriguez MD MCV (RBC) [Entitic vol] 98.2 fL Normal 82.6-102.9 [facility] Comment on above: Performed By: #### B MP, CDP, HEPXA #### [address] [address] Buffer Operator: Ramsey Rodriguez MD Monocytes (Bld) [#/Vol] 0.26 10*3/uL Normal 0.10-1.20 [facility] Comment on above: Performed By: #### B MP, CDP, HEPXA #### [address] [address] Buffer Operator: Ramsey Rodriguez MD Monocytes/100 WBC (Bld) 6 % Normal 3-12 [facility] Comment on above: Performed By: #### B MP, CDP, HEPXA #### [address] [address] Buffer Operator: Ramsey Rodriguez MD Neutrophil (Seg) 69 % High 36-65 [facility] Comment on above: Performed By: #### B MP, CDP, HEPXA #### [address] [address] Buffer Operator: Ramsey Rodriguez MD NRBC Automated 0.0 per 100 WBC Normal 0.0 [facility] Comment on above: Performed By: #### B MP, CDP, HEPXA #### [address] [address] Buffer Operator: Ramsey Rodriguez MD Platelet mean volume (Bld) [Entitic vol] 10.0 fL Normal 8.1-13.5 [facility] Comment on above: Performed By: #### B MP, CDP, HEPXA #### [address] [address] Buffer Operator: Ramsey Rodriguez MD Platelets (Bld) [#/Vol] 141 10*3/uL Normal 138-453 [facility] Comment on above: Performed By: #### B MP, CDP, HEPXA #### [address] [address] Buffer Operator: Ramsey Rodriguez MD RBC (Bld) [#/Vol] 3.40 10*6/uL Low 4.21-5.77 [facility] Comment on above: Performed By: #### B MP, CDP, HEPXA #### [address] [address] Buffer Operator: Ramsey Rodriguez MD RBC morphology finding Nom (Bld) ANISOCYTOSIS PRESENT Normal [facility] Comment on above: Performed By: #### B MP, CDP, HEPXA #### [address] [address] Buffer Operator: Ramsey Rodriguez MD WBC (Bld) [#/Vol] 4.8 10*3/uL Normal 3.5-11.3 [facility] Comment on above: Performed By: #### B MP, CDP, HEPXA #### [facility] [address] [place], [place] [phone] Buffer Operator: Ramsey Rodriguez MD Glucose,Whole Bloodon 2023 Glucose [Mass/Vol] 92 mg/dL Normal 75-110 [facility] Glucose [Mass/Vol] 81 mg/dL Normal 75-110 [facility] Glucose [Mass/Vol] 99 mg/dL Normal 75-110 [facility] Glucose [Mass/Vol] 94 mg/dL Normal 75-110 [facility] XR CHEST PORTABLEon 08-24-19 XR CHEST PORTABLE [...] Alex Martinez MD 08/24/23 Final result Normal [facility] Basic Metab w/rfx MGon 08-22 Anion gap [Moles/Vol] 6 mmol/L Low 9-16 [facility] Comment on above: Performed By: #### B EDWARD, TROPI #### [facility] [address] [place], [place] [phone] Buffer Operator: Ramsey Rodriguez MD Calcium [Mass/Vol] 8.1 mg/dL Low 8.6-10.4 [facility] Comment on above: Performed By: #### B EDWARD TROPI #### [employer] [address] [place], [place] [phone] Buffer Operator: Ramsey Rodriguez MD Chloride [Moles/Vol] 107 mmol/L Normal 98-107 [facility] Comment on above: Performed By: #### B EDWARD, TROPI #### [facility] [address] [place] [address] Buffer Operator: Ramsey Rodriguez MD CO2 [Moles/Vol] 25 mmol/L Normal 20-31 [facility] Comment on above: Performed By: #### B EDWARD, TROPI #### [facility] [address] [place] [address] Buffer Operator: Ramsey Rodriguez MD Creatinine [Mass/Vol] 0.5 mg/dL Low 0.70-1.20 [facility] Comment on above: Performed By: #### B EDWARD, TROPI #### [facility] [address] [place] [address] Buffer Operator: Ramsey Rodriguez MD GFR/1.73 sq M.predicted among non-blacks MDRD (S/P/Bld) [Vol rate/Area] mL/min/{1.73_m2} Normal >60 [facility] Comment on above: Result Comment: These results [...] Performed By: #### B EDWARD, TROPI #### [facility] [address] [place] [address] Buffer Operator: Ramsey Rodriguez MD Glucose [Mass/Vol] 111 mg/dL High 74-99 [facility] Comment on above: Performed By: #### B EDWARD, TROPI #### [facility] [address] [place] [address] Buffer Operator: Ramsey Rodriguez MD Potassium [Moles/Vol] 4.1 mmol/L Normal 3.7-5.3 [facility] Comment on above: Performed By: #### B MP, TROPI #### [address] [address] Buffer Operator: Ramsey Rodriguez MD Sodium [Moles/Vol] 138 mmol/L Normal 136-145 [facility] Comment on above: Performed By: #### B MP, TROPI #### [address] [address] Buffer Operator: Ramsey Rodriguez MD Urea nitrogen [Mass/Vol] 17 mg/dL Normal 8-23 [facility] Comment on above: Performed By: #### B EDWARD, TROPI #### [address] [address] Buffer Operator: Ramsey Rodriguez MD CBC with Diffon 08-23-2023 Abs. Basophil <0.03 Normal 0.00-0.20 [facility] Comment on above: Performed By: #### B EDWARD, TROPI #### [address] [address] Buffer Operator: Ramsey Rodriguez MD Abs.Imm.Granulocyte <0.03 Normal 0.00-0.30 [facility] Comment on above: Performed By: #### B EDWARD, TROPI #### [address] [address] Buffer Operator: Ramsey Rodriguez MD Abs.Neutrophil (Seg) 4.44 k/uL Normal 1.50-8.10 [facility] Comment on above: Performed By: #### B MP, TROPI #### [address] [address] Buffer Operator: Ramsey Rodriguez MD Basophils/100 WBC (Bld) 0 % Normal 0-2 [facility] Comment on above: Performed By: #### B MP, TROPI #### [address] [address] Buffer Operator: Ramsey Rodriguez MD Eosinophils (Bld) [#/Vol] 0.26 10*3/uL Normal 0.00-0.44 [facility] Comment on above: Performed By: #### B MP, TROPI #### [facility] [address] [place] [address] Buffer Operator: Ramsey Rodriguez MD Eosinophils/100 WBC (Bld) 4 % Normal 1-4 [facility] Comment on above: Performed By: #### B MP, TROPI #### [facility] [address] [place] [address] Buffer Operator: Ramsey Rodriguez MD Erythrocyte distribution width (RBC) [Ratio] 15.8 % High 11.8-14.4 [facility] Comment on above: Performed By: #### B MP, TROPI #### [facility] [address] [place] [address] Buffer Operator: Ramsey Rodriguez MD Hematocrit (Bld) [Volume fraction] 35.5 % Low 40.7-50.3 [facility] Comment on above: Performed By: #### B MP, TROPI #### [facility] [address] [place] [address] Buffer Operator: Ramsey Rodriguez MD Hemoglobin (Bld) [Mass/Vol] 10.8 g/dL Low 13.0-17.0 [facility] Comment on above: Performed By: #### B MP, TROPI #### [facility] [address] [place] [address] Buffer Operator: Ramsey Rodriguez MD Immature granulocytes/100 WBC (Bld) 0 % Normal 0 [facility] Comment on above: Performed By: #### B MP, TROPI #### [facility] [address] [place] [address] Buffer Operator: Ramsey Rodriguez MD Lymphocytes (Bld) [#/Vol] 0.92 10*3/uL Low 1.10-3.70 [facility] Comment on above: Performed By: #### B EDWARD, TROPI #### [facility] [address] [place] [address] Buffer Operator: Ramsey Rodriguez MD Lymphocytes/100 WBC (Bld) 15 % Low 24-43 [facility] Comment on above: Performed By: #### B EDWARD, TROPI #### [facility] [address] [place] [address] Buffer Operator: Ramsey Rodriguez MD MCH (RBC) [Entitic mass] 30.6 pg Normal 25.2-33.5 [facility] Comment on above: Performed By: #### B EDWARD TROPI #### [address] [address] Buffer Operator: Ramsey Rodriguez MD MCHC (RBC) [Mass/Vol] 30.4 g/dL Normal 28.4-34.8 [facility] Comment on above: Performed By: #### Nicol LEON TROPI #### [address] [address] Buffer Operator: Ramsey Rodriguez MD MCV (RBC) [Entitic vol] 100.6 fL Normal 82.6-102.9 [facility] Comment on above: Performed By: #### Nicol LEON TROPI #### [address] [address] Buffer Operator: Ramsey Rodriguez MD Monocytes (Bld) [#/Vol] 0.31 10*3/uL Normal 0.10-1.20 [facility] Comment on above: Performed By: #### B EDWARD, TROPI #### [facility] [address] [place] [address] Buffer Operator: Ramsey Rodriguez MD Monocytes/100 WBC (Bld) 5 % Normal 3-12 [facility] Comment on above: Performed By: #### B MP, TROPI #### [facility] [address] [place] [address] Buffer Operator: Ramsey Rodriguez MD Neutrophil (Seg) 76 % High 36-65 [facility] Comment on above: Performed By: #### B MP, TROPI #### [facility] [address] [place] [address] Buffer Operator: Ramsey Rodriguez MD NRBC Automated 0.0 per 100 WBC Normal 0.0 [facility] Comment on above: Performed By: #### B MP, TROPI #### [facility] [address] [place] [address] Buffer Operator: Ramsey Rodriguez MD Platelet mean volume (Bld) [Entitic vol] 9.9 fL Normal 8.1-13.5 [facility] Comment on above: Performed By: #### B MP, TROPI #### [facility] [address] [place] [address] Buffer Operator: Ramsey Rodriguez MD Platelets (Bld) [#/Vol] 129 10*3/uL Low 138-453 [facility] Comment on above: Performed By: #### B MP, TROPI #### [address] [address] Buffer Operator: Ramsey Rodriguez MD RBC (Bld) [#/Vol] 3.53 10*6/uL Low 4.21-5.77 [facility] Comment on above: Performed By: #### B MP, TROPI #### [facility] [address] [place] [address] Buffer Operator: Ramsey Rodriguez MD RBC morphology finding Nom (Bld) ANISOCYTOSIS PRESENT Normal [facility] Comment on above: Performed By: #### B MP, TROPI #### [facility] [place], [place] [phone] Buffer Operator: Ramsey Rodriguez MD WBC (Bld) [#/Vol] 6.0 10*3/uL Normal 3.5-11.3 [facility] Comment on above: Performed By: #### B EDWARD TROPI #### [facility] [address] [place] [address] Buffer Operator: Ramsey Rodriguez MD Glucose,Whole Bloodon 2023 Glucose [Mass/Vol] 110 mg/dL Normal 75-110 [facility] Glucose [Mass/Vol] 97 mg/dL Normal 75-110 [facility] Glucose [Mass/Vol] 94 mg/dL Normal 75-110 [facility] Glucose [Mass/Vol] 90 mg/dL Normal 75-110 [facility] Magnesiumon 08-23-2023 Magnesium [Mass/Vol] 2.1 mg/dL Normal 1.6-2.4 [facility] Comment on above: Performed By: #### B EDWARD TROPI #### [address] [address] Buffer Operator: Ramsey Rodriguez MD Phosphorus, Inorg.on 024 Phosphorus, Inorg. 1.7 mg/dL Low 2.5-4.5 [facility] Comment on above: Performed By: #### B EDWARD TROPI #### [facility] [address] [place] [address] Buffer Operator: Ramsey Rodriguez MD Basic Metab w/rfx MGon 08-21 Anion gap [Moles/Vol] 8 mmol/L Low 9-16 [facility] Comment on above: Performed By: #### H EPXA, CBC, PTT, PT #### [facility] [address] [place] [address] Buffer Operator: Ramsey Rodriguez MD Calcium [Mass/Vol] 8.3 mg/dL Low 8.6-10.4 [facility] Comment on above: Performed By: #### H EPXA, CBC, PTT, PT #### [facility] [address] [place] [address] Buffer Operator: Ramsey Rodriguez MD Chloride [Moles/Vol] 105 mmol/L Normal 98-107 [facility] Comment on above: Performed By: #### H EPXA, CBC, PTT, PT #### [facility] [address] [place] [address] Buffer Operator: Ramsey Rodriguez MD CO2 [Moles/Vol] 25 mmol/L Normal 20-31 [facility] Comment on above: Performed By: #### H EPXA, CBC, PTT, PT #### [address] [phone] Buffer Operator: Ramsey Rodriguez MD Creatinine [Mass/Vol] 0.6 mg/dL Low 0.70-1.20 [facility] Comment on above: Performed By: #### H EPXA, CBC, PTT, PT #### [facility] [address] [place] [address] Buffer Operator: Ramsey Rodriguez MD GFR/1.73 sq M.predicted among non-blacks MDRD (S/P/Bld) [Vol rate/Area] mL/min/{1.73_m2} Normal >60 [facility] Comment on above: Result Comment: These results [...] #### H EPXA, CBC, PTT, PT #### [facility] [address] [place] [address] Buffer Operator: Ramsey Rodriguez MD Glucose [Mass/Vol] 105 mg/dL High 74-99 [facility] Comment on above: Performed By: #### H EPXA, CBC, PTT, PT #### [facility] [address] [place] [address] Buffer Operator: Ramsey Rodriguez MD Potassium [Moles/Vol] 4.2 mmol/L Normal 3.7-5.3 [facility] Comment on above: Result Comment: SPEC IMEN SLIGHTLY HEMOLYZED, RESULTS MAY BE ADVERSELY AFFECTED. Performed By: #### H EPXA, CBC, PTT, PT #### [address] [address] Buffer Operator: Ramsey Rodriguez MD Sodium [Moles/Vol] 138 mmol/L Normal 136-145 [facility] Comment on above: Performed By: #### H EPXA, CBC, PTT, PT #### [facility] [address] [place] [address] Buffer Operator: Ramsey Rodriguez MD Urea nitrogen [Mass/Vol] 25 mg/dL High 8-23 [facility] Comment on above: Performed By: #### H EPXA, CBC, PTT, PT #### [facility] [address] [place] [address] Buffer Operator: Ramsey Rodriguez MD CBC with Diffon 08-22-2023 Abs. Basophil 0.03 k/uL Normal 0.00-0.20 [facility] Comment on above: Performed By: #### H EPXA, CBC, PTT, PT #### [facility] [address] [place] [address] Buffer Operator: Ramsey Rodriguez MD Abs.Imm.Granulocyte 0.03 k/uL Normal 0.00-0.30 [facility] Comment on above: Performed By: #### H EPXA, CBC, PTT, PT #### [facility] [address] [place] [address] Buffer Operator: Ramsey Rodriguez MD Abs.Neutrophil (Seg) 7.03 k/uL Normal 1.50-8.10 [facility] Comment on above: Performed By: #### H EPXA, CBC, PTT, PT #### [address] [address] Buffer Operator: Ramsey Rodriguez MD Basophils/100 WBC (Bld) 0 % Normal 0-2 [facility] Comment on above: Performed By: #### H EPXA, CBC, PTT, PT #### [place] [address] Buffer Operator: Ramsey Rodriguez MD Eosinophils (Bld) [#/Vol] 0.10 10*3/uL Normal 0.00-0.44 [facility] Comment on above: Performed By: #### H EPXA, CBC, PTT, PT #### [place] [address] Buffer Operator: Ramsey Rodriguez MD Eosinophils/100 WBC (Bld) 1 % Normal 1-4 [facility] Comment on above: Performed By: #### H EPXA, CBC, PTT, PT #### [place] [address] Buffer Operator: Ramsey Rodriguez MD Erythrocyte distribution width (RBC) [Ratio] 16.0 % High 11.8-14.4 [facility] Comment on above: Performed By: #### H EPXA, CBC, PTT, PT #### [facility] [address] [place] [address] Buffer Operator: Ramsey Rodriguez MD Hematocrit (Bld) [Volume fraction] 38.1 % Low 40.7-50.3 [facility] Comment on above: Performed By: #### H EPXA, CBC, PTT, PT #### [facility] [address] [place] [address] Buffer Operator: Ramsey Rodriguez MD Hemoglobin (Bld) [Mass/Vol] 11.9 g/dL Low 13.0-17.0 [facility] Comment on above: Performed By: #### H EPXA, CBC, PTT, PT #### [address] [address] Buffer Operator: Ramsey Rodriguez MD Immature granulocytes/100 WBC (Bld) 0 % Normal 0 [facility] Comment on above: Performed By: #### H EPXA, CBC, PTT, PT #### [address] [address] Buffer Operator: Ramsey Rodriguez MD Lymphocytes (Bld) [#/Vol] 0.78 10*3/uL Low 1.10-3.70 [facility] Comment on above: Performed By: #### H EPXA, CBC, PTT, PT #### [facility] [address] [place] [address] Buffer Operator: Ramsey Rodriguez MD Lymphocytes/100 WBC (Bld) 9 % Low 24-43 [facility] Comment on above: Performed By: #### H EPXA, CBC, PTT, PT #### [facility] [address] [place] [address] Buffer Operator: Ramsey Rodriguez MD MCH (RBC) [Entitic mass] 30.8 pg Normal 25.2-33.5 [facility] Comment on above: Performed By: #### H EPXA, CBC, PTT, PT #### [facility] [address] [place] [address] Buffer Operator: Ramsey Rodriguez MD MCHC (RBC) [Mass/Vol] 31.2 g/dL Normal 28.4-34.8 [facility] Comment on above: Performed By: #### H EPXA, CBC, PTT, PT #### [address] [address] Buffer Operator: Ramsey Rodriguez MD MCV (RBC) [Entitic vol] 98.7 fL Normal 82.6-102.9 [facility] Comment on above: Performed By: #### H EPXA, CBC, PTT, PT #### [address] [address] Buffer Operator: Ramsey Rodriguez MD Monocytes (Bld) [#/Vol] 0.32 10*3/uL Normal 0.10-1.20 [facility] Comment on above: Performed By: #### H EPXA, CBC, PTT, PT #### [address] [address] Buffer Operator: Ramsey Rodriguez MD Monocytes/100 WBC (Bld) 4 % Normal 3-12 [facility] Comment on above: Performed By: #### H EPXA, CBC, PTT, PT #### [address] [address] Buffer Operator: Ramsey Rodriguez MD Neutrophil (Seg) 86 % High 36-65 [facility] Comment on above: Performed By: #### H EPXA, CBC, PTT, PT #### [address] [address] Buffer Operator: Ramsey Rodriguez MD NRBC Automated 0.0 per 100 WBC Normal 0.0 [facility] Comment on above: Performed By: #### H EPXA, CBC, PTT, PT #### [address] [address] Buffer Operator: Ramsey Rodriguez MD Platelet mean volume (Bld) [Entitic vol] 10.1 fL Normal 8.1-13.5 [facility] Comment on above: Performed By: #### H EPXA, CBC, PTT, PT #### [address] [address] Buffer Operator: Ramsey Rodriguez MD Platelets (Bld) [#/Vol] 140 10*3/uL Normal 138-453 [facility] Comment on above: Performed By: #### H EPXA, CBC, PTT, PT #### [facility] [place] [address] Buffer Operator: Ramsey Rodriguez MD RBC (Bld) [#/Vol] 3.86 10*6/uL Low 4.21-5.77 [facility] Comment on above: Performed By: #### H EPXA, CBC, PTT, PT #### [facility] [place] [address] Buffer Operator: Ramsey Rodriguez MD RBC morphology finding Nom (Bld) ANISOCYTOSIS PRESENT Normal [facility] Comment on above: Performed By: #### H EPXA, CBC, PTT, PT #### [facility] [place] [address] Buffer Operator: Ramsey Rodriguez MD WBC (Bld) [#/Vol] 8.3 10*3/uL Normal 3.5-11.3 [facility] Comment on above: Performed By: #### H EPXA, CBC, PTT, PT #### [facility] [address] [place] [phone] Buffer Operator: Ramsey Rodriguez MD Glucose,Whole Bloodon 2023 Glucose [Mass/Vol] 127 mg/dL High 75-110 [facility] Glucose [Mass/Vol] 125 mg/dL High 75-110 [facility] Glucose [Mass/Vol] 112 mg/dL High 75-110 [facility] Glucose [Mass/Vol] 84 mg/dL Normal 75-110 [facility] Glucose [Mass/Vol] 86 mg/dL Normal 75-110 [facility] Glucose [Mass/Vol] 96 mg/dL Normal 75-110 [facility] Magnesiumon 08-22-2023 Magnesium [Mass/Vol] 1.8 mg/dL Normal 1.6-2.4 [facility] Comment on above: Performed By: #### H EPXA, CBC, PTT, PT #### [employer] [address] [place] [phone] Buffer Operator: Ramsey Rodriguez MD Phosphorus, Inorg.on 024 Phosphorus, Inorg. 2.2 mg/dL Low 2.5-4.5 [facility] Comment on above: Performed By: #### H EPXA, CBC, PTT, PT #### [facility] [address] [place] [address] Buffer Operator: Ramsey Rodriguez MD Basic Metab w/rfx MGon 08-20 Anion gap [Moles/Vol] 10 mmol/L Normal 9-16 [facility] Comment on above: Performed By: #### H EPXA, CBC, PTT, PT #### [facility] [address] [place] [address] Buffer Operator: Ramsey Rodriguez MD Calcium [Mass/Vol] 9.0 mg/dL Normal 8.6-10.4 [facility] Comment on above: Performed By: #### H EPXA, CBC, PTT, PT #### [employer] [address] [place] [address] Buffer Operator: Ramsey Rodriguez MD Chloride [Moles/Vol] 105 mmol/L Normal 98-107 [facility] Comment on above: Performed By: #### H EPXA, CBC, PTT, PT #### [employer] [address] [place] [address] 400[address] Buffer Operator: Ramsey Rodriguez MD CO2 [Moles/Vol] 27 mmol/L Normal 20-31 [facility] Comment on above: Performed By: #### H EPXA, CBC, PTT, PT #### [employer] [address] [place] [address] 52720 Buffer Operator: Ramsey Rodriguez MD Creatinine [Mass/Vol] 0.7 mg/dL Normal 0.70-1.20 [facility] Comment on above: Performed By: #### H EPXA, CBC, PTT, PT #### [address] [address] Buffer Operator: Ramsey Rodriguez MD GFR/1.73 sq M.predicted among non-blacks MDRD (S/P/Bld) [Vol rate/Area] 89 mL/min/{1.73_m2} Normal >60 [facility] Comment on above: Result Comment: These results [...] #### H EPXA, CBC, PTT, PT #### [facility] [address] [place] [address] Buffer Operator: Ramsey Rodriguez MD Glucose [Mass/Vol] 146 mg/dL High 74-99 [facility] Comment on above: Performed By: #### H EPXA, CBC, PTT, PT #### [facility] [employer] [address] [place] [address] Buffer Operator: Ramsey Rodriguez MD Potassium [Moles/Vol] 4.4 mmol/L Normal 3.7-5.3 [facility] Comment on above: Performed By: #### H EPXA, CBC, PTT, PT #### [facility] [address] [place] [address] Buffer Operator: Ramsey Rodriguez MD Sodium [Moles/Vol] 142 mmol/L Normal 136-145 [facility] Comment on above: Performed By: #### H EPXA, CBC, PTT, PT #### [facility] [employer] [address] [place] [address] Buffer Operator: Ramsey Rodriguez MD Urea nitrogen [Mass/Vol] 25 mg/dL High 8-23 [facility] Comment on above: Performed By: #### H EPXA, CBC, PTT, PT #### [facility] [employer] [address] [place] [address] Buffer Operator: Ramsey Rodriguez MD CBC with Diffon 08-21-2023 Abs. Basophil 0.00 k/uL Normal 0.0-0.2 [facility] Comment on above: Performed By: #### H EPXA, CBC, PTT, PT #### [facility] [employer] [address] [place] [address] Buffer Operator: Ramsey Rodriguez MD Abs.Imm.Granulocyte 0.00 k/uL Normal 0.00-0.30 [facility] Comment on above: Performed By: #### H EPXA, CBC, PTT, PT #### [facility] [employer] [address] [place] [address] Buffer Operator: Ramsey Rodriguez MD Abs.Neutrophil (Seg) 10.86 k/uL High 1.8-7.7 [facility] Comment on above: Performed By: #### H EPXA, CBC, PTT, PT #### [facility] [employer] [address] [place] [address] Buffer Operator: Ramsey Rodriguez MD Basophils/100 WBC (Bld) 0 % Normal 0-2 [facility] Comment on above: Performed By: #### H EPXA, CBC, PTT, PT #### [facility] [employer] [address] [place] [address] Buffer Operator: Ramsey Rodriguez MD Eosinophils (Bld) [#/Vol] 0.00 10*3/uL Normal 0.0-0.4 [facility] Comment on above: Performed By: #### H EPXA, CBC, PTT, PT #### [address] [address] Buffer Operator: Ramsey Rodrigeuz MD Eosinophils/100 WBC (Bld) 0 % Low 1-4 [facility] Comment on above: Performed By: #### H EPXA, CBC, PTT, PT #### [address] [address] Buffer Operator: Ramsey Rodriguez MD Immature granulocytes/100 WBC (Bld) 0 % Normal 0 [facility] Comment on above: Performed By: #### H EPXA, CBC, PTT, PT #### [address] [address] Buffer Operator: Ramsey Rodriguez MD Lymphocytes (Bld) [#/Vol] 0.73 10*3/uL Low 1.0-4.8 [facility] Comment on above: Performed By: #### H EPXA, CBC, PTT, PT #### [address] [address] Buffer Operator: Ramsey Rodriguez MD Lymphocytes/100 WBC (Bld) 6 % Low 24-44 [facility] Comment on above: Performed By: #### H EPXA, CBC, PTT, PT #### [place] [address] Buffer Operator: Ramsey Rodriguez MD Monocytes (Bld) [#/Vol] 0.61 10*3/uL Normal 0.1-0.8 [facility] Comment on above: Performed By: #### H EPXA, CBC, PTT, PT #### [facility] [address] [place] [address] Buffer Operator: Ramsey Rodriguez MD Monocytes/100 WBC (Bld) 5 % Normal 1-7 [facility] Comment on above: Performed By: #### H EPXA, CBC, PTT, PT #### [facility] [employer] [address] [place] [address] Buffer Operator: Ramsey Rodriguez MD Morphology Edmond (Bld) [Interp] ANISOCYTOSIS PRESENT Normal [facility] Comment on above: Performed By: #### H EPXA, CBC, PTT, PT #### [address] [address] Buffer Operator: Ramsey Rodriguez MD Neutrophil (Seg) 89 % High 36-66 [facility] Comment on above: Performed By: #### H EPXA, CBC, PTT, PT #### [facility] [employer] [address] [place] [address] Buffer Operator: Ramsey Rodriguez MD Erythrocyte distribution width (RBC) [Ratio] 15.7 % High 11.8-14.4 [facility] Comment on above: Performed By: #### H EPXA, CBC, PTT, PT #### [facility] [employer] [address] [place] [address] Buffer Operator: Ramsey Rodriguez MD Hematocrit (Bld) [Volume fraction] 40.8 % Normal 40.7-50.3 [facility] Comment on above: Performed By: #### H EPXA, CBC, PTT, PT #### [facility] [employer] [address] [place] [address] Buffer Operator: Ramsey Rodriguez MD Hemoglobin (Bld) [Mass/Vol] 13.2 g/dL Normal 13.0-17.0 [facility] Comment on above: Performed By: #### H EPXA, CBC, PTT, PT #### [facility] [employer] [address] [place] [address] Buffer Operator: Ramsey Rodriguez MD MCH (RBC) [Entitic mass] 30.3 pg Normal 25.2-33.5 [facility] Comment on above: Performed By: #### H EPXA, CBC, PTT, PT #### [address] [address] Buffer Operator: Ramsey Rodriguez MD MCHC (RBC) [Mass/Vol] 32.4 g/dL Normal 28.4-34.8 [facility] Comment on above: Performed By: #### H EPXA, CBC, PTT, PT #### [address] [address] Buffer Operator: Ramsey Rodriguez MD MCV (RBC) [Entitic vol] 93.8 fL Normal 82.6-102.9 [facility] Comment on above: Performed By: #### H EPXA, CBC, PTT, PT #### [address] [address] Buffer Operator: Ramsey Rodriguez MD NRBC Automated 0.0 per 100 WBC Normal 0.0 [facility] Comment on above: Performed By: #### H EPXA, CBC, PTT, PT #### [address] [address] Buffer Operator: Ramsey Rodriguez MD Platelet mean volume (Bld) [Entitic vol] 10.0 fL Normal 8.1-13.5 [facility] Comment on above: Performed By: #### H EPXA, CBC, PTT, PT #### [address] [address] Buffer Operator: Ramsey Rodriguez MD Platelets (Bld) [#/Vol] 197 10*3/uL Normal 138-453 [facility] Comment on above: Performed By: #### H EPXA, CBC, PTT, PT #### [address] [address] Buffer Operator: Ramsey Rodriguez MD RBC (Bld) [#/Vol] 4.35 10*6/uL Normal 4.21-5.77 [facility] Comment on above: Performed By: #### H EPXA, CBC, PTT, PT #### [facility] [address] [place] [address] [phone] Buffer Operator: Ramsey Rodriguez MD WBC (Bld) [#/Vol] 12.2 10*3/uL High 3.5-11.3 [facility] Comment on above: Performed By: #### H EPXA, CBC, PTT, PT #### [facility] [address] [place] [address] Buffer Operator: Ramsey Rodriguez MD Glucose,Whole Bloodon 2023 Glucose [Mass/Vol] 124 mg/dL High 75-110 [facility] Glucose [Mass/Vol] 95 mg/dL Normal 75-110 [facility] Magnesiumon 08-21-2023 Magnesium [Mass/Vol] 2.0 mg/dL Normal 1.6-2.4 [facility] Comment on above: Performed By: #### H EPXA, CBC, PTT, PT #### [facility] [address] [place] [address] [phone] Buffer Operator: Ramsey Rodriguez MD Phosphorus, Inorg.on 024 Phosphorus, Inorg. 3.9 mg/dL Normal 2.5-4.5 [facility] Comment on above: Performed By: #### H EPXA, CBC, PTT, PT #### [facility] [address] [place] [address] [phone] Buffer Operator: Ramsey Rodriguez MD Type + Screenon 08-21-2023 Type + Screen Sample Expiration 08/24/2023,2359 Arm Band Number [id number] ABO/Rh(D) O NEGATIVE Antibody Screen NEGATIVE Normal [facility] Comment on above: Performed By: #### H EPXA, CBC, PTT, PT #### [employer] [address] [place] [address] [phone] Buffer Operator: Ramsey Rodriguez MD XR CHEST PORTABLEon 08-21-19 [...] Dave Burns MD 08/21/23 Final result Normal [facility] Basophils Auto (Bld) [#/Vol] on 08-20-2023 Basophils (Bld) [#/Vol] 0.1 10 3/uL 0.0-0.1 [facility] Basophils/100 WBC Auto (Bld) on 08-20-2023 Basophils/100 WBC (Bld) 0.3 % 0.2-2.0 [facility] Bilirubin Auto test strip (U ) [Mass/Vol]on 08-20-2023 Bilirubin (U) [Mass/Vol] Negative NEGATIVE [facility] CBC with Diffon 08-20-2023 Abs. Basophil 0.00 k/uL Normal 0.0-0.2 [facility] Comment on above: Performed By: #### H EPXA, CBC, PTT, PT #### [facility] [employer] [address] [place] [address] Buffer Operator: Ramsey Rodriguez MD Abs.Imm.Granulocyte 0.00 k/uL Normal 0.00-0.30 [facility] Comment on above: Performed By: #### H EPXA, CBC, PTT, PT #### [facility] [employer] [address] [place] [address] Buffer Operator: Ramsey Rodriguez MD Abs.Neutrophil (Seg) 12.60 k/uL High 1.8-7.7 [facility] Comment on above: Performed By: #### H EPXA, CBC, PTT, PT #### [facility] [employer] [address] [place] [address] Buffer Operator: Ramsey Rodriguez MD Basophils/100 WBC (Bld) 0 % Normal 0-2 [facility] Comment on above: Performed By: #### H EPXA, CBC, PTT, PT #### [address] [address] Buffer Operator: Ramsey Rodriguez MD Eosinophils (Bld) [#/Vol] 0.00 10*3/uL Normal 0.0-0.4 [facility] Comment on above: Performed By: #### H EPXA, CBC, PTT, PT #### [address] [address] Buffer Operator: Ramsey Rodriguez MD Eosinophils/100 WBC (Bld) 0 % Low 1-4 [facility] Comment on above: Performed By: #### H EPXA, CBC, PTT, PT #### [address] [address] Buffer Operator: Ramsey Rodriguez MD Immature granulocytes/100 WBC (Bld) 0 % Normal 0 [facility] Comment on above: Performed By: #### H EPXA, CBC, PTT, PT #### [facility] [employer] [address] [place] [address] Buffer Operator: Ramsey Rodriguez MD Lymphocytes (Bld) [#/Vol] 0.67 10*3/uL Low 1.0-4.8 [facility] Comment on above: Performed By: #### H EPXA, CBC, PTT, PT #### [facility] [employer] [address] [place] [address] Buffer Operator: Ramsey Rodriguez MD Lymphocytes/100 WBC (Bld) 5 % Low 24-44 [facility] Comment on above: Performed By: #### H EPXA, CBC, PTT, PT #### [facility] [employer] [address] [place] [address] Buffer Operator: Ramsey Rodriguez MD Monocytes (Bld) [#/Vol] 0.13 10*3/uL Normal 0.1-0.8 [facility] Comment on above: Performed By: #### H EPXA, CBC, PTT, PT #### [facility] [address] [place] [address] Buffer Operator: Ramsey Rodriguez MD Monocytes/100 WBC (Bld) 1 % Normal 1-7 [facility] Comment on above: Performed By: #### H EPXA, CBC, PTT, PT #### [facility] [address] [place] [address] Buffer Operator: Ramsey Rodriguez MD Morphology Edmond (Bld) [Interp] ANISOCYTOSIS PRESENT Normal [facility] Comment on above: Performed By: #### H EPXA, CBC, PTT, PT #### [facility] [address] [place] [address] Buffer Operator: Ramsey Rodriguez MD Neutrophil (Seg) 94 % High 36-66 [facility] Comment on above: Performed By: #### H EPXA, CBC, PTT, PT #### [facility] [address] [place] [address]246 Buffer Operator: Ramsey Rodriguez MD Erythrocyte distribution width (RBC) [Ratio] 15.6 % High 11.8-14.4 [facility] Comment on above: Performed By: #### H EPXA, CBC, PTT, PT #### [facility] [address] [place] [address] Buffer Operator: Ramsey Rodriguez MD Hematocrit (Bld) [Volume fraction] 43.6 % Normal 40.7-50.3 [facility] Comment on above: Performed By: #### H EPXA, CBC, PTT, PT #### [facility] [address] [place] [address] Buffer Operator: Ramsey Rodriguez MD Hemoglobin (Bld) [Mass/Vol] 14.0 g/dL Normal 13.0-17.0 [facility] Comment on above: Performed By: #### H EPXA, CBC, PTT, PT #### [address] [address] Buffer Operator: Ramsey Rodriguez MD MCH (RBC) [Entitic mass] 30.6 pg Normal 25.2-33.5 [facility] Comment on above: Performed By: #### H EPXA, CBC, PTT, PT #### [address] [address] Buffer Operator: Ramsey Rodriguez MD MCHC (RBC) [Mass/Vol] 32.1 g/dL Normal 28.4-34.8 [facility] Comment on above: Performed By: #### H EPXA, CBC, PTT, PT #### [address] [address] Buffer Operator: Ramsey Rodriguez MD MCV (RBC) [Entitic vol] 95.2 fL Normal 82.6-102.9 [facility] Comment on above: Performed By: #### H EPXA, CBC, PTT, PT #### [facility] [employer] [address] [place] [address] Buffer Operator: Ramsey Rodriguez MD NRBC Automated 0.0 per 100 WBC Normal 0.0 [facility] Comment on above: Performed By: #### H EPXA, CBC, PTT, PT #### [facility] [employer] [address] [place] [address] Buffer Operator: Ramsey Rodriguez MD Platelet mean volume (Bld) [Entitic vol] 10.1 fL Normal 8.1-13.5 [facility] Comment on above: Performed By: #### H EPXA, CBC, PTT, PT #### [facility] [employer] [address] [place] [address] Buffer Operator: Ramsey Rodriguez MD Platelets (Bld) [#/Vol] 200 10*3/uL Normal 138-453 [facility] Comment on above: Performed By: #### H EPXA, CBC, PTT, PT #### [facility] [address] [place] [address] Buffer Operator: Ramsey Rodriguez MD RBC (Bld) [#/Vol] 4.58 10*6/uL Normal 4.21-5.77 [facility] Comment on above: Performed By: #### H EPXA, CBC, PTT, PT #### [facility] [employer] [address] [place] [address] Buffer Operator: Ramsey Rodriguez MD WBC (Bld) [#/Vol] 13.4 10*3/uL High 3.5-11.3 [facility] Comment on above: Performed By: #### H EPXA, CBC, PTT, PT #### [facility] [employer] [address] [place] [address] Buffer Operator: Ramsey Rodriguez MD Comp Metabolic Profon 2023 Albumin [Mass/Vol] 3.5 g/dL Normal 3.5-5.2 [facility] Comment on above: Performed By: #### H EPXA, CBC, PTT, PT #### [facility] [employer] [address] [place] [address] Buffer Operator: Ramsey Rodriguez MD Albumin/Glob Ratio 1.0 Normal 1.0-2.5 [facility] Comment on above: Performed By: #### H EPXA, CBC, PTT, PT #### [employer] [address] [place] [address] Buffer Operator: Ramsey Rodriguez MD Alkaline Phos 93 U/L Normal 40-129 [facility] Comment on above: Performed By: #### H EPXA, CBC, PTT, PT #### [facility] [address] [place] [address] Buffer Operator: Ramsey Rodriguez MD ALT [Catalytic activity/Vol] 58 U/L High 10-50 [facility] Comment on above: Performed By: #### H EPXA, CBC, PTT, PT #### [facility] [address] [place] [address] Buffer Operator: Ramsey Rodriguez MD Anion gap [Moles/Vol] 12 mmol/L Normal 9-16 [facility] Comment on above: Performed By: #### H EPXA, CBC, PTT, PT #### [facility] [employer] [address] [place] [address] Buffer Operator: Ramsey Rodriguez MD AST [Catalytic activity/Vol] 75 U/L High 10-50 [facility] Comment on above: Result Comment: SPEC IMEN SLIGHTLY HEMOLYZED, RESULTS MAY BE ADVERSELY AFFECTED. Performed By: #### H EPXA, CBC, PTT, PT #### [facility] [address] [place] [address] Buffer Operator: Ramsey Rodriguez MD Bilirubin [Mass/Vol] 1.1 mg/dL Normal 0.00-1.20 [facility] Comment on above: Performed By: #### H EPXA, CBC, PTT, PT #### [facility] [employer] [address] [place] [address] Buffer Operator: Ramsey Rodriguez MD Calcium [Mass/Vol] 9.1 mg/dL Normal 8.6-10.4 [facility] Comment on above: Performed By: #### H EPXA, CBC, PTT, PT #### [facility] [employer] [address] [place] [address] Buffer Operator: Ramsey Rodriguez MD Chloride [Moles/Vol] 100 mmol/L Normal 98-107 [facility] Comment on above: Performed By: #### H EPXA, CBC, PTT, PT #### [facility] [address] [place] [address] [phone] Buffer Operator: Ramsey Rodriguez MD CO2 [Moles/Vol] 25 mmol/L Normal 20-31 [facility] Comment on above: Performed By: #### H EPXA, CBC, PTT, PT #### [facility] [employer] [address] [place] [address] Buffer Operator: Ramsey Rodriguez MD Creatinine [Mass/Vol] 0.8 mg/dL Normal 0.70-1.20 [facility] Comment on above: Performed By: #### H EPXA, CBC, PTT, PT #### [address] [address] Buffer Operator: Ramsey Rodriguez MD GFR/1.73 sq M.predicted among non-blacks MDRD (S/P/Bld) [Vol rate/Area] 87 mL/min/{1.73_m2} Normal >60 [facility] Comment on above: Result Comment: These results [...] #### H EPXA, CBC, PTT, PT #### [address] [address] Buffer Operator: Ramsey Rodriguez MD Glucose [Mass/Vol] 208 mg/dL High 74-99 [facility] Comment on above: Performed By: #### H EPXA, CBC, PTT, PT #### [facility] [address] [place] [address] Buffer Operator: Ramsey Rodriguez MD Potassium [Moles/Vol] 4.4 mmol/L Normal 3.7-5.3 [facility] Comment on above: Result Comment: SPEC IMEN SLIGHTLY HEMOLYZED, RESULTS MAY BE ADVERSELY AFFECTED. Performed By: #### H EPXA, CBC, PTT, PT #### [employer] [address] [place], [place] [phone] Buffer Operator: Ramsey Rodriguez MD Protein [Mass/Vol] 7.9 g/dL Normal 6.6-8.7 [facility] Comment on above: Performed By: #### H EPXA, CBC, PTT, PT #### [employer] [address] [place], [place] [phone] Buffer Operator: Ramsey Rodriguez MD Sodium [Moles/Vol] 137 mmol/L Normal 136-145 [facility] Comment on above: Performed By: #### H EPXA, CBC, PTT, PT #### [employer] [address] [place], [place] [phone] Buffer Operator: Ramsey Rodriguez MD Urea nitrogen [Mass/Vol] 26 mg/dL High 8-23 [facility] Comment on above: Performed By: #### H EPXA, CBC, PTT, PT #### [employer] [facility] [place], [place] [phone] Buffer Operator: Ramsey Rodriguez MD Eosinophils/100 WBC Auto (Bl d)on 08-20-2023 Eosinophils/100 WBC (Bld) 0.1 % 0.9-7.0 [facility] Erythrocyte distribution wid th Auto (RBC) [Ratio]on 08-20-2023 Erythrocyte distribution width (RBC) [Ratio] 15.2 % 11.0-15.0 [facility] Estimated glomerular filtrat ion rate (GFR) non- Americanon 08-20-2023 GFR/1.73 sq M.predicted among non-blacks MDRD (S/P/Bld) [Vol rate/Area] mL/min/{1.73_m2} >=60 [facility] Globulin Calc (S) [Mass/Vol] on 08-20-2023 Globulin (S) [Mass/Vol] 5.3 g/dL [facility] Hematocrit Auto (Bld) [Volum e fraction]on 08-20-2023 Hematocrit (Bld) [Volume fraction] 40.8 % 42.0-54.0 [facility] Hemoglobin [Mass/volume] in Bloodon 08-20-2023 Hemoglobin (Bld) [Mass/Vol] 13.3 g/dL 14.0-18.0 [facility] Laboratory - Chemistry and C hemistry - challengeon 08-20-2023 Glucose (U) [Mass/Vol] Negative NEGATIVE [facility] Ketones Ql (U) Negative NEGATIVE [facility] pH (U) 5.0 [pH] 5.0-9.0 [facility] Specific gravity (U) [Rel density] 1.020 1.005-1.025 [facility] Urobilinogen Qn (U) 0.2 {Amy'U}/dL 0.2-1.0 [facility] Albumin [Mass/Vol] 3.2 g/dL 3.4-5.0 [facility] ALP [Catalytic activity/Vol] 104 U/L 46-116 [facility] ALT [Catalytic activity/Vol] 74 U/L 16-63 [facility] AST [Catalytic activity/Vol] 67 U/L 15-37 [facility] Bilirubin [Mass/Vol] 1.3 mg/dL 0.2-1.0 [facility] Calcium [Mass/Vol] 9.7 mg/dL 8.5-10.1 [facility] Chloride [Moles/Vol] 100 mmol/L 98-107 [facility] CO2 [Moles/Vol] 28.2 mmol/L 21.0-32.0 [facility] Creatinine [Mass/Vol] 1.05 mg/dL 0.70-1.30 [facility] GFR/1.73 sq M.predicted MDRD (S/P/Bld) [Vol rate/Area] mL/min/{1.73_m2} >=60 [facility] Glucose [Mass/Vol] 202 mg/dL 74-106 [facility] Lipase [Catalytic activity/Vol] 18.0 U/L 16.0-77.0 [facility] Natriuretic peptide B (Bld) [Mass/Vol] 470.0 pg/mL <=1800.0 [facility] Potassium [Moles/Vol] 3.6 mmol/L 3.5-5.1 [facility] Protein [Mass/Vol] 8.5 g/dL 6.4-8.2 [facility] Sodium [Moles/Vol] 137 mmol/L 136-145 [facility] Urea nitrogen [Mass/Vol] 30.0 mg/dL 7.0-18.0 [facility] Urea nitrogen/Creatinine [Mass ratio] 28.6 mg/mg [facility] Laboratory - Hematology and Cell countson 08-20-2023 Immature granulocytes/100 WBC (Bld) 0.4 % 0.0-0.5 [facility] Laboratory - Specimen inform ationon 08-20-2023 Appearance (U) CLEAR CLEAR [facility] Color (U) YELLOW YELLOW [facility] Laboratory - Urinalysison Leukocyte esterase Test strip Ql (U) Negative NEGATIVE [facility] Nitrite Ql (U) Negative NEGATIVE [facility] Protein Ql (U) Negative NEG/TRACE [facility] Lactic Acidon 08-20-2023 Lactic Acid,Whole Bl 3.6 mmol/L High 0.7-2.1 [facility] Comment on above: Performed By: #### H EPXA, CBC, PTT, PT #### [facility] [employer] [address] [place] [id number] Buffer Operator: Ramsey Rodriguez MD Leukocytes [#/volume] correc александр for nucleated erythrocytes in Blood by Automated counon 08-20-2023 WBC corrected for nucl RBC Auto (Bld) [#/Vol] 15.6 10 3/uL 4.0-11.0 [facility] Lymphocytes Auto (Bld) [#/Vo l]on 08-20-2023 Lymphocytes (Bld) [#/Vol] 1.5 10 3/uL 1.2-3.8 [facility] Lymphocytes/100 WBC Auto (Bl d)on 08-20-2023 Lymphocytes/100 WBC (Bld) 9.6 % 20.5-60.0 [facility] MCH Auto (RBC) [Entitic mass ]on 08-20-2023 MCH (RBC) [Entitic mass] 30.6 pg 25.9-34.0 [facility] MCHC Auto (RBC) [Mass/Vol]on 08-20-2023 MCHC (RBC) [Mass/Vol] 32.6 g/dL 29.9-35.2 [facility] MCV Auto (RBC) [Entitic vol] on 08-20-2023 MCV (RBC) [Entitic vol] 93.8 fL 80.0-94.0 [facility] Magnesiumon 08-20-2023 Magnesium [Mass/Vol] 2.0 mg/dL Normal 1.6-2.4 [facility] Comment on above: Performed By: #### H EPXA, CBC, PTT, PT #### [employer] [address] [place], [place] [id number] Buffer Operator: Ramsey Rodriguez MD Monocytes Auto (Bld) [#/Vol] on 08-20-2023 Monocytes (Bld) [#/Vol] 0.5 10 3/uL 0.3-0.8 [facility] Monocytes/100 WBC Auto (Bld) on 08-20-2023 Monocytes/100 WBC (Bld) 3.2 % 1.7-12.0 [facility] Neutrophils Auto (Bld) [#/Vo l]on 08-20-2023 Neutrophils (Bld) [#/Vol] 13.4 10 3/uL 1.4-6.5 [facility] Neutrophils/100 WBC Auto (Bl d)on 08-20-2023 Neutrophils/100 WBC (Bld) 86.4 % 43.0-75.0 [facility] No Panel Informationon 08-19 Urine Microscopic Review NO [facility] Eosinophils # (Auto) 0.0 10 3/uL 0.0-0.7 [facility] Immature Granulocyte # (Auto) 0.06 10 3/uL 0.00-0.03 [facility] Platelet mean volume Auto (B ld) [Entitic vol]on 08-20-2023 Platelet mean volume (Bld) [Entitic vol] 9.8 fL 9.5-13.5 [facility] Platelets Auto (Bld) [#/Vol] on 08-20-2023 Platelets (Bld) [#/Vol] 220 10 3/uL 150-450 [facility] RBC Auto (Bld) [#/Vol]on RBC (Bld) [#/Vol] 4.35 10 6/uL 4.70-6.10 [facility] Serum or plasma albumin/glob ulin mass ratioon 08-20-2023 Albumin/Globulin [Mass ratio] 0.6 {ratio} [facility] Serum or plasma anion gap de terminationon 08-20-2023 Anion gap [Moles/Vol] 12.4 mmol/L [facility] Urine hemoglobin detection b y automated test stripon 08-20-2023 Hemoglobin Auto test strip Ql (U) Negative NEGATIVE [facility] XR CHEST PORTABLEon 08-20-19 XR CHEST PORTABLE [...] Amada Rosario MD 08/20/23 Final result Normal [facility] CBC AUTO DIFFon 08-15-2022 BASO # 0.0 103/ul Normal 0.0-0.1 [facility] Comment on above: Performed By: #### C BC #### [facility] [address] [address] [address] Emily Lauren Basophils/100 WBC (Bld) 0.3 % Normal 0.2-2.0 [facility] Comment on above: Performed By: #### C BC #### [facility] [address] [place], [place] [address] Dr. Emily Lauren EO # 0.2 103/ul Normal 0.0-0.7 [facility] Comment on above: Performed By: #### C BC #### [facility] [address] [place] [address] Dr. Emily Lauren Eosinophils/100 WBC (Bld) 3.1 % Normal 0.9-7.0 [facility] Comment on above: Performed By: #### C BC #### [facility] [address] [place] [address] Dr. Emily Lauren Erythrocyte distribution width (RBC) [Ratio] 14.9 % Normal 11.0-15.0 [facility] Comment on above: Performed By: #### C BC #### [facility] [address] [place] [address] Dr. Emily Lauren Hematocrit (Bld) [Volume fraction] 39.9 % Critically low 42.0-54.0 [facility] Comment on above: Performed By: #### C BC #### [facility] [address] [place] [address] Dr. Emily Lauren Hemoglobin (Bld) [Mass/Vol] 12.9 g/dL Critically low 14.0-18.0 [facility] Comment on above: Performed By: #### C BC #### [facility] [address] [place] [address] Dr. Emily Lauren IG # 0.02 10e3/ul Normal 0.00-0.03 [facility] Comment on above: Performed By: #### C BC #### [facility] [address] [place] [address] Dr. Emily Lauren IG % 0.3 % Normal 0.0-0.5 [facility] Comment on above: Performed By: #### C BC #### [facility] [address] [place] [address] Dr. Emily Lauren LYMPH # 2.4 103/ul Normal 1.2-3.8 [facility] Comment on above: Performed By: #### C BC #### [facility] [address] [place] [address] Dr. Emily Lauren Lymphocytes/100 WBC (Bld) 30.7 % Normal 20.5-60.0 [facility] Comment on above: Performed By: #### C BC #### [facility] [address] [place] [address] Dr. Emily Lauren MANUAL DIFF REQ NO Normal [facility] Comment on above: Performed By: #### C BC #### [facility] [address] [place] [address] Dr. Emily Lauren MCH (RBC) [Entitic mass] 30.4 pg Normal 25.9-34.0 [facility] Comment on above: Performed By: #### C BC #### [facility] [address] [place] [address] Dr. Emily Lauren MCHC (RBC) [Mass/Vol] 32.3 g/dL Normal 29.9-35.2 [facility] Comment on above: Performed By: #### C BC #### [facility] [address] [place] [address] Dr. Emily Lauren MCV (RBC) [Entitic vol] 94.1 fL Critically high 80.0-94.0 [facility] Comment on above: Performed By: #### C BC #### [facility] [address] [place] [address] Dr. Emily Lauren MONO # 0.5 103/ul Normal 0.3-0.8 [facility] Comment on above: Performed By: #### C BC #### [facility] [address] [place] [address] Dr. Emily Lauren Monocytes/100 WBC (Bld) 5.9 % Normal 1.7-12.0 [facility] Comment on above: Performed By: #### C BC #### [facility] [address] [place] [address] Dr. Emily Lauren NEUT # 4.6 103/ul Normal 1.4-6.5 [facility] Comment on above: Performed By: #### C BC #### [facility] [address] [place] [address] Dr. Emily Lauren Neutrophils/100 WBC (Bld) 59.7 % Normal 43.0-75.0 [facility] Comment on above: Performed By: #### C BC #### [facility] [address] [address] [address] Emily Lauren Platelet mean volume (Bld) [Entitic vol] 9.7 fL Normal 9.5-13.5 [facility] Comment on above: Performed By: #### C BC #### [facility] [address] [address] [address] Emily Lauren PLT 176 103/ul Normal 150-450 [facility] Comment on above: Performed By: #### C BC #### [facility] [address] [address] [address] Emily Lauren RBC 4.24 106/ul Critically low 4.70-6.10 [facility] Comment on above: Performed By: #### C BC #### [facility] [address] [place] [address] Dr. Emily Lauren WBC 7.7 103/ul Normal 4.0-11.0 [facility] Comment on above: Performed By: #### C BC #### [facility] [address] [place] [address] Dr. Emily Lauren PROF 14(COMP METB)on 023 Albumin [Mass/Vol] 3.4 g/dL Normal 3.4-5.0 [facility] Comment on above: Performed By: #### C MP #### [facility] [address] [place] [address] Dr. Emily Lauren Albumin/Globulin [Mass ratio] 0.8 {ratio} Normal [facility] Comment on above: Performed By: #### C MP #### [facility] [address] [place] [address] Dr. Emily Lauren ALP [Catalytic activity/Vol] 81 U/L Normal 46-116 [facility] Comment on above: Performed By: #### C MP #### [facility] [address] [place] [address] Dr. Emily Lauren ALT [Catalytic activity/Vol] 44 U/L Normal 16-63 [facility] Comment on above: Performed By: #### C MP #### [facility] [address] [address] [address] Emily Lauren Anion gap [Moles/Vol] 11.3 mmol/L Normal [facility] Comment on above: Performed By: #### C MP #### [facility] [address] [address] [address] Emily Lauren AST [Catalytic activity/Vol] 41 U/L Critically high 15-37 [facility] Comment on above: Performed By: #### C MP #### [facility] [address] [address] [address] Emily Lauren Bilirubin [Mass/Vol] 1.4 mg/dL Critically high 0.2-1.0 [facility] Comment on above: Performed By: #### C MP #### [facility] [address] [address] [address] Emily Lauren Calcium [Mass/Vol] 9.2 mg/dL Normal 8.5-10.1 [facility] Comment on above: Performed By: #### C MP #### [facility] [address] [address] [address] Emily Lauren Chloride [Moles/Vol] 106 mmol/L Normal 98-107 [facility] Comment on above: Performed By: #### C MP #### [facility] [address] [address] [address] Emily Lauren CO2 [Moles/Vol] 29.8 mmol/L Normal 21.0-32.0 [facility] Comment on above: Performed By: #### C MP #### [facility] [address] [place] [address] Dr. Emily Lauren Creatinine [Mass/Vol] 0.83 mg/dL Normal 0.70-1.30 [facility] Comment on above: Performed By: #### C MP #### [facility] [address] [place] [address] Dr. Emily Lauren EGFR-AF HUNGARIAN >60 Normal >=60 [facility] Comment on above: Performed By: #### C MP #### [facility] [address] [address] [address] Emily Lauren EGFR-NON AF HUNGARIAN >60 Normal >=60 [facility] Comment on above: Performed By: #### C MP #### [facility] [address] [address] [address] Emily Lauren Globulin (S) [Mass/Vol] 4.2 g/dL Normal [facility] Comment on above: Performed By: #### C MP #### [facility] [address] [address] [address] Emily Lauren Glucose [Mass/Vol] 80 mg/dL Normal 74-106 [facility] Comment on above: Performed By: #### C MP #### [facility] [address] [address] [address] Emily Lauren Potassium [Moles/Vol] 4.1 mmol/L Normal 3.5-5.1 [facility] Comment on above: Performed By: #### C MP #### [facility] [address] [address] [address] Emily Lauren Protein [Mass/Vol] 7.6 g/dL Normal 6.4-8.2 [facility] Comment on above: Performed By: #### C MP #### [facility] [address] [address] [address] Emily Lauren Sodium [Moles/Vol] 143 mmol/L Normal 136-145 [facility] Comment on above: Performed By: #### C MP #### [facility] [address] [address] [address] Emily Lauren Urea nitrogen [Mass/Vol] 26.0 mg/dL Critically high 7.0-18.0 [facility] Comment on above: Performed By: #### C MP #### [facility] [address] [address] [address] Emily Lauren Urea nitrogen/Creatinine [Mass ratio] 31.3 mg/mg Normal [facility] Comment on above: Performed By: #### C MP #### [facility] [address] [address] [address] Emily Lauren Vital Signs Date Time Vital Sign Value Performing Clinician Facility 12-13-2023 14:39-0400 Body height 175.26 cm [facility] 12-13-2023 14:39-0400 Body mass index (BMI) [Ratio] 23.5 kg/m2 [facility] 12-13-2023 14:39-0400 Body weight 72.17 kg [facility] 12-13-2023 14:39-0400 Diastolic blood pressure 68 mm[Hg] [facility] 12-13-2023 14:39-0400 Heart rate 68 /min [facility] 12-13-2023 14:39-0400 Systolic blood pressure 121 mm[Hg] [facility] 10-03-2023 15:59-0400 Body height 175.26 cm [facility] 10-03-2023 15:59-0400 Body mass index (BMI) [Ratio] 23.8 kg/m2 [facility] 10-03-2023 15:59-0400 Body weight 73.02 kg [facility] 10-03-2023 15:59-0400 Diastolic blood pressure 72 mm[Hg] [facility] 10-03-2023 15:59-0400 Heart rate 64 /min [facility] 10-03-2023 15:59-0400 Respiratory rate 12 /min [facility] 10-03-2023 15:59-0400 Systolic blood pressure 119 mm[Hg] [facility] 06-14-2023 14:52-0500 Body height 175.26 cm [facility] 06-14-2023 14:52-0500 Body mass index (BMI) [Ratio] 25.2 kg/m2 [facility] 06-14-2023 14:52-0500 Body weight 77.67 kg [facility] 06-14-2023 14:52-0500 Diastolic blood pressure 77 mm[Hg] [facility] 06-14-2023 14:52-0500 Heart rate 66 /min [facility] 06-14-2023 14:52-0500 Systolic blood pressure 128 mm[Hg] [facility] 02-22-2023 13:30-0400 Body height 175.26 cm [facility] 02-22-2023 13:30-0400 Body mass index (BMI) [Ratio] 27.82 kg/m2 [facility] 02-22-2023 13:30-0400 Body weight 85.46 kg [facility] 02-22-2023 13:30-0400 Diastolic blood pressure 70 mm[Hg] [facility] 02-22-2023 13:30-0400 Respiratory rate 12 /min [facility] 02-22-2023 13:30-0400 Systolic blood pressure 109 mm[Hg] [facility] 08-14-2022 12:00-0400 Body height 175.26 cm [facility] 08-14-2022 12:00-0400 Body mass index (BMI) [Ratio] 28.29 kg/m2 [facility] 08-14-2022 12:00-0400 Body weight 86.91 kg [facility] 08-14-2022 12:00-0400 Diastolic blood pressure 80 mm[Hg] [facility] 08-14-2022 12:00-0400 Respiratory rate 20 /min [facility] 04-25-2023 12:00-0400 Systolic blood pressure 126 mm[Hg] [facility] Other [facility] [employer] Other Encounters Encounter Date Encounter Type Care Provider Facility Start: 12-13-2023 End: 12-13-2023 ambulatory [facility] Work Phone: Start: 12-13-2023 End: 12-13-2023 Patient encounter procedure [facility] Physician [facility] Work Phone: Start: 12-12-2023 End: 12-12-2023 ambulatory P[facility]O SPRAGUE Not Available Start: 12-04-2023 Non-patient / Non-visit [facility] Physician [facility] [employer] Work Phone: Start: 10-23-2023 Non-patient / Non-visit [facility] Physician [facility] Work Phone: Start: 10-03-2023 End: 10-03-2023 ambulatory [facility] Work Phone: Start: 10-03-2023 End: 10-03-2023 Patient encounter procedure [facility] Physician [facility] Work Phone: Start: 09-27-2023 Non-patient / Non-visit [facility] Physician [facility] Work Phone: Start: 09-26-2023 End: 09-26-2023 ambulatory PITO SPRAGUE Not Available Start: 09-05-2023 Non-patient / Non-visit [facility] Physician [facility] Work Phone: Start: 08-20-2023 End: 09-02-2023 Evaluation and management of inpatient [facility] Start: 08-20-2023 Non-patient / Non-visit [facility] Physician [facility] Work Phone: Start: 06-20-2023 End: 06-20-2023 ambulatory PITO SPRAGUE Not Available Start: 06-14-2023 End: 06-14-2023 ambulatory [facility] Work Phone: Start: 06-14-2023 End: 06-14-2023 Patient encounter procedure [facility] Work Phone: Start: 04-26-2023 End: 04-26-2023 ambulatory [facility] Other [facility] Start: 04-26-2023 Telephone encounter Flex Isaacs [facility] Start: 04-11-2023 End: 04-11-2023 ambulatory PITO Gayle CELESTINE Not Available Start: 04-05-2023 End: 04-05-2023 ambulatory [facility] Other [facility] Start: 04-05-2023 Telephone encounter [facility] Start: 03-19-2023 End: 03-19-2023 ambulatory [facility] Other [facility] Start: 03-19-2023 Telephone encounter [facility] Start: 03-07-2023 End: 03-07-2023 ambulatory [facility] Other [facility] Start: 03-07-2023 Home visit est pt mod-hi severity 40 minutes [facility] Start: 03-06-2023 End: 03-06-2023 ambulatory [facility] Other [facility] Start: 03-06-2023 Telephone encounter Flex Isaacs [facility] Start: 03-05-2023 End: 03-05-2023 ambulatory [facility] Other [facility] Start: 03-05-2023 Telephone encounter Flex [facility] Start: 02-28-2023 End: 02-28-2023 ambulatory Kamilla Vieira Other [facility] Other Start: 02-28-2023 Nursing evaluation o f patient and report Kamilla Mónciacristina [facility] Start: 02-22-2023 End: 02-22-2023 ambulatory [facility] Other [facility] Start: 02-22-2023 Transitional care manage srvc 14 day discharge [facility] Start: 02-20-2023 End: 02-20-2023 ambulatory [facility] Other [facility] Start: 02-20-2023 Telephone encounter [facility] Start: 02-11-2023 End: 02-11-2023 ambulatory Flex Ferny Other [facility] Start: 02-11-2023 Telephone encounter [facility] Start: 01-03-2023 End: 01-03-2023 ambulatory [facility] Other [facility] Start: 01-03-2023 Telephone encounter [facility] Start: 01-02-2023 End: 01-02-2023 ambulatory [facility] Other [facility] Start: 01-02-2023 Telephone encounter Flex [facility] Start: 01-01-2023 End: 01-01-2023 ambulatory [facility] Isa[facility] Other [facility] Start: 01-01-2023 Telephone encounter Flex [facility] Start: 12-31-2022 End: 12-31-2022 ambulatory [facility] Other [facility] Start: 12-31-2022 Telephone encounter Flex Ball [facility] Start: 12-10-2022 End: 12-10-2022 ambulatory [facility] Other [facility] Start: 12-10-2022 Telephone encounter Flex [facility] Start: 12-09-2022 End: 12-09-2022 ambulatory Flex Isaacs Other [facility] Start: 12-09-2022 Telephone encounter Flex HIGUERA [facility] Start: 10-04-2022 End: 10-04-2022 ambulatory [facility] Other [facility] Start: 10-04-2022 Telephone encounter Flex Isaacs [facility] Start: 08-16-2022 End: 08-16-2022 ambulatory [facility] Other [facility] Start: 08-16-2022 Telephone encounter Flex HIGUERA [facility] Start: 08-15-2022 Telephone encounter Flex HIGUERA [facility] Start: 08-15-2022 End: 08-16-2022 ambulatory FLEX FERNY [facility] Start: 08-14-2022 End: 08-14-2022 ambulatory [facility] Other [facility] Start: 08-14-2022 Patient encounter procedure [facility] Start: 05-20-2019 Adult health examination [facility] Other [facility] Procedures Date Procedure Procedure Detail Performing Clinician Start: 07-03-2017 Diabetes mellitus screening [facility] Other Start: 11-15-2015 Screening for malign ant neoplasm of colon [facility] Other Screening for malign ant neoplasm of prostate [facility] Other Plan of Treatment Date Care Activity Detail Author XR Chest 2 Views [facility] Immunizations Immunization Date Immunization Notes Care Provider Brando higgins 02-28-2023 influenza, high dose seasonal, preservative-free [facility] Other [facility] 02-28-2023 influenza virus vaccine, unspecified formulation [facility] 04-11-2022 influenza, injectabl e, quadrivalent, preservative free [facility] Other [facility] 02-23-2021 COVID-19 Vaccine Moderna - Documentation Purposes Only [facility] Other [facility] 06-17-2020 COVID-19 Vaccine Moderna - Documentation Purposes Only [facility] Other [facility] 05-20-2020 COVID-19 Vaccine Moderna - Documentation Purposes Only [facility] Other [facility] 07-03-2017 pneumococcal conjuga te vaccine, 13 valent [facility] Other [facility] 07-03-2017 pneumococcal Conjuga te, unspecified formulation; Translations: [Need for prophylactic vaccination against Streptococcus pneumoniae (pneumococcus)] [facility] Other [facility] 03-07-2017 influenza virus vaccine, split virus (incl. purified surface antigen) [facility] Other [facility] 03-07-2017 influenza virus vaccine, unspecified formulation [facility] 03-28-2016 influenza virus vaccine, split virus (incl. purified surface antigen) [facility] Other [facility] 03-28-2016 influenza virus vaccine, unspecified formulation [facility] 03-08-2015 influenza virus vaccine, split virus (incl. purified surface antigen) [facility] Other [facility] 03-08-2015 influenza virus vaccine, unspecified formulation [facility] 04-09-2013 tetanus and diphther ia toxoids, adsorbed, preservative free, for adult use (5 Lf of tetanus toxoid and 2 Lf of diphtheria toxoid) [facility] Other [facility] 01-28-2013 tetanus and diphther ia toxoids, adsorbed, preservative free, for adult use (5 Lf of tetanus toxoid and 2 Lf of diphtheria toxoid) [facility] Other [facility] 03-29-2010 pneumococcal polysaccharide vaccine, 23 valent [facility] Other [facility] Payers Date Payer Category Payer Unknown [id number] 2018 Unknown [id number] 1961 Medicare [id number] 1938 Unknown [id number] 1938 Unknown [id number] 1938 Unknown [id number] 1938 Unknown [id number] 1938 Unknown [id number] 1940 Unknown [id number] Private Health Insurance [employer] [id number] Social History Date Type Detail Facility Sex Assigned At [facility] Other Start: 1940 Sex Assigned At Male [facility] Start: 12-13-2023 Tobacco smoking stat us NHIS Never smoked tobacco (finding) [facility] Clinical Notes 08-14-2022 to 04-26-2023 Note Date & Type Note Facility 04-26-2023 Evaluation note Encounter Date Diagnosis Assessment Notes Apr, Acute deep vein thrombosis (DVT) of right peroneal vein (ICD-10 - I82.451) [facility] Other [id number] Evaluation note* Encounter Date Diagnosis Assessment Notes [...] for 6months. Check DDimer and venous US. [facility] Other 11-14-2023 Evaluation note* Encounter Date Diagnosis Assessment Notes Treatment Notes Treatment Clinical Notes Feb, Closed fracture of one rib of right side with routine healing, subsequent encounter (ICD-10 - S22.31XD) [facility] Other 11-09-2023 Evaluation note* Encounter Date Diagnosis Assessment Notes Treatment Notes Treatment Clinical Notes Feb, Need for vaccination (ICD-10 - Z23) [facility] Other 11-03-2023 Evaluation note* Encounter Date Diagnosis [...] - E44.0) Protein/calorie supplements daily. Monitor weight. [facility] Other 08-21-2023 Evaluation note* Encounter Date Diagnosis Assessment Notes Treatment Notes Treatment Clinical Notes Nov, Acute deep vein thrombosis (DVT) of left peroneal vein (ICD-10 - I82.452) Nov, Pressure injury of deep tissue of sacral region (ICD-10 - L89.156) Nov, Skin ulcer of heel, limited to breakdown of skin, unspecified laterality (ICD-10 - L97.401) [facility] Other 04-26-2023 NotePROCEDURE: XR HAND MEEK MIN [...] Electronically authenticated by: ROHINI PEARSON Date: 2022-08-15 11:57[facility]04-25-2023 Evaluation note* Encounter Date Diagnosis Assessment [...] Jul, Fatigue, unspecified type (ICD-10 - R53.83) [facility] Other Evaluation noteNo InformationNort [employer] Other Evaluation note* Diagnosis Onset Date Resolution Status Anemia acute Chronic venous insufficiency acute Lumbar spondylosis acute Pharyngoesophageal dysphagia acute Pulmonary hypertension acute Right rib fracture acute [facility] Work Phone: Evaluation note* Diagnosis Onset Date Resolution Status Chronic bronchitis acute Chronic venous insufficiency acute HAP (hospital-acquired pneumonia) acute Hx of small bowel obstruction acute Lumbar spondylosis acute Pharyngoesophageal dysphagia acute Pulmonary hypertension acute [facility] Work Phone: Evaluation note* Diagnosis Onset Date [...] acute Medicare annual wellness visit, subsequent noneactive [facility] Work Phone: Hiscsdu general Narrative - Reported* Type Description Date Medical History Diarrhea Medical History Chronic venous insufficiency Medical History 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 Medical History Seasonal allergic rhinitis due t o pollen Surgical History CHOLECYSTECTOMY Surgical History APPENDECTOMY Surgical History TONSILLECTOMY Surgical History LEFT KNEE ARTHROSCOPY Hospitalization History SEE SURGICAL HX [facility] Other [facility]jsye general Narrative - Reported* Type Description Date [...] KNEE ARTHROSCOPY Hospitalization History SEE SURGICAL HX [facility] Other History general Narrative - Reported* Type [...] KNEE ARTHROSCOPY Hospitalization History SEE SURGICAL HX [facility] Other History general Narrative - Reported* Type [...] 01/09 23 Hospitalization History SEE SURGICAL HX [facility] Other [facility]gqro general Narrative - Reported* Type Description Date [...] 01/09 23 Hospitalization History SEE SURGICAL HX [facility] Other Summary Purpose Family History No Family [...] content) check upXray resultsLab Resu ltsTCMUpdateNo InformationDental ClearanceBRISTOW [facility] [place] HHUpdateNo InformationNo InformationtcmTCMD/C FROM [facility] 02/19UpdateNo InformationAt WillowsWillowsflu shotMBS resultsSpeech Therapyrefill (unrecognized sect ion and content) No Status Records FoundNo Status Records FoundNo Status Records Found INFORMATION SOURCE (unrecogn ized section and content) DATE CREATED AUTHOR 08/19/2022 [facility] DATE CREATED AUTHOR AUTHOR'S ORGANIZ ATION 10/12/2023 [facility] DATE CREATED AUTHOR AUTHOR'S ORGANIZ ATION 12/14/2023 [facility] EPIC Care Teams (unrecognized sec [...] BE BASED ON THE PRIMARY CLINICAL RECORDS. [employer] provides no warranty or guarantee of the accuracy or completeness of information in this document.
== END 2024-03-02 08:54 | disposition home or self-care (01) ==
LOC: EC 08:54
PROVIDERS: PCP Internal Medicine; Visit Provider Orthopaedic Surgery
DX: S42.031A Displaced fracture of lateral end of right clavicle, initial encounter for closed fracture (principal)
CPT/HCPCS: 73000

== ENCOUNTER 2024-03-30 08:58 | Outpatient (OUT) | payer MEDICARE, OTHER, SELFPAY ==
--- NOTE | 2024-03-30 | XR_ITS ---
The [address] [address] Patient Name: ROSANNA SOUSA MRN: [id number] date: 1940 Sex: M Assigned Patient Location: Current Patient Location: Accession/Order Number: [id number] Exam Date: 03/30/2024 08:59 Report Date: 03/31/2024 09:02 At the request of: LOUIS ORTIZ Procedure: XR clavicle RT PROCEDURE: XR clavicle RT HISTORY: RIGHT CLAVICLE PAIN COMPARISON: XR clavicle right 03/02/2024 FINDINGS: BONES:Stable alignment with interval development of callus formation along the margins of the distal right clavicle. Marked narrowing of the acromioclavicular joint. SOFT TISSUES:No visible soft tissue swelling. EFFUSION:None visible. OTHER: Negative. XR/XR clavicle RT IMPRESSION: 1. Ongoing bone healing of distal right clavicle nondisplaced fracture. 2. 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 Electronically authenticated by: LOUIS BROOKE Date: 03/31/2024 09:02
== END 2024-03-30 08:59 | disposition home or self-care (01) ==
LOC: EC 08:58
PROVIDERS: PCP Internal Medicine; Visit Provider Orthopaedic Surgery
DX: S42.031D Displaced fracture of lateral end of right clavicle, subsequent encounter for fracture with routine healing (principal)
CPT/HCPCS: 73000

== ENCOUNTER 2024-05-26 13:28 | Outpatient (REF) | payer MEDICARE, OTHER, SELFPAY ==
[2024-05-26 13:41] LABS: Basophils Percent Auto 0.6 % (0.2-2.0); Eosinophils Absolute Auto 0.1 10^3/uL (0.0-0.7); Eosinophils Percent Auto 2.1 % (0.9-7.0); Hematocrit 33.7 % (42.0-54.0); Hemoglobin 11.2 g/dL (14.0-18.0); Immature Granulocytes Abs Auto 0.01 10^3/uL (0.00-0.03); Immature Granulocytes Pct Auto 0.2 % (0.0-0.5); Lymphocytes Absolute Auto 1.6 10^3/uL (1.2-3.8); Lymphocytes Percent Auto 32.6 % (20.5-60.0); Mean Corpuscular HGB Conc 33.2 g/dL (29.9-35.2); Mean Corpuscular Hemoglobin 30.9 pg (25.9-34.0); Mean Corpuscular Volume 92.8 fL (80.0-94.0); Mean Platelet Volume 10.9 fL (9.5-13.5); Monocytes Absolute Auto 0.3 10^3/uL (0.3-0.8); Monocytes Percent Auto 6.1 % (1.7-12.0); Neutrophils Absolute Auto 2.8 10^3/uL (1.4-6.5); Neutrophils Percent Auto 58.4 % (43.0-75.0); Platelet Count 185 10^3/uL (150-450); Red Blood Count 3.63 10^6/uL (4.70-6.10); Red Cell Distribution Width 16.2 % (11.0-15.0); White Blood Count 4.8 10^3/uL (4.0-11.0)
--- OUTSIDE RECORDS SUMMARY | 2024-05-26 13:41 | XMS_ITS | CCD ---
Author Organization [facility] Inform ion Partnership [facility] Care Team Providers Care Device Processing Engineer Name Role Phone Flex Isaacs Unavailable DR FLEX ISAACS Admitting Unavailable FERNY, DR MENDEZ Primary Care Unavailable FERNY, DR MENDEZ Consulting Unavailable FERNY, DR MENDEZ Attending Unavailable Rohini Pearson Consulting Unavailable Kamilla Vieira Unavailable [phone] JAVI GLYNN Consulting Unavailable ANEL BENSON Admitting Unavail able ANEL BENSON Attending Unavail able FLEX ISAACS Primary Care Unavailable JESSICA PIERCE Consulting Unavailable CESAR PHILLIPS Consulting Unavailable DESTINEE MERCADO Consulting Unavailable MICH DENT Consulting Unavailable Flex Isaacs MD Primary Care Provider Sahra Mishra MD Unavailable [phone] Sahra Mishra MD Unavailable DANTE CASILLAS Attending Unavailable DANTE CASILLAS Attending Unavailable DANTE CASILLAS Attending Unavailable DANTE CASILLAS Attending Unavailable Allergies Allergy Classification Reported Allergen(s) Allergy Type Date of Onset Reaction(s) Facility (8 sources) patient allergy list reviewed by nurse or physicia Propensity to adverse reactions 5 Comment:Done [email or web address] Other Medications Current Medications Medication Drug Class(es) [...] day Furosemide Active 20 MG PO .QOD 15 September 27, 2023 1:28pm Start: 06-12-2023 End: [...] iron capsule Active 150 MG PO .QOD 15 December 05, 2023 12:00am prednisoLONE 1.2 mg/ml [...] 2023 4:03pm take 1 capsule by mo [facility] every six hours Acetaminophen 500 MG 1 capsule as needed Orally every 6 hrs Active take 2 tablets by [facility] every eight hours Tylenol 8 Hour 650 [...] 14, 2023 4:05pm take [address] [facility] every twelve hours Eliquis 5 [...] October 03, 2023 4:06pm polyethylene glycol 3350 75541 mg powder for oral solution (2 sources) Osmotic Laxative Start: 09-27-2023 End: 10-03-2023 Polyethylene Glycol 3350 (Miralax) 17 gram/dose powder Discontinued 17 GM PO Daily September 27, 2023 12:00am October 03, 2023 4:06pm potassium citrate 10 meq extended release oral tablet (6 sources) Start: 09-27-2023 End: 10-03-2023 take 10 mEq by mouth once daily Potassium Citrate Discontinued 10 MEQ PO Daily 30 September 27, 2023 1:29pm October 03, 2023 [...] Problem Classification Problem Date Documented Date Episodic/Chronic Acute cerebrovascular disease (4 sources) Cerebrovascular accident; Translations: [Cerebral infarction, unspecified] Onset: 3 11-28-2022 Chronic Chronic obstructive pulmonary disease and bronchiectasis (5 sources) Chronic bronchitis; Translations: [Unspecified chronic bronchitis] 10-03-2023 Chronic Chronic ulcer of skin (14 sources) 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; Translations: [Pressure ulcer of sacral region, stage 1] Chronic Deficiency and other anemia (11 sources) Anemia; Translations: [Anemia, unspecified] Onset: 5 [...] partial versus complete obstruction] Onset: 4 Episodic Mycoses (2 sources) Onychomycosis; Translations: [Tinea unguium] 12-08-2023 Episodic Nonspecific chest pain (1 source) Chest [...] 3 Episodic Other aftercare (2 sources) Other masonry supervisor (current) drug therapy; Translations: [OTH FLIGHT ATTENDANT INFLIGHT SERVICES CURRENT DRUG THERAPY] Onset: 3 Episodic Other and unspecified benign neoplasm (8 sources) Benign neoplasm of skin; Translations: [Benign neoplasm of skin, site unspecified] Episodic Other diseases of veins and lymphatics (5 sources) Venous insufficiency (chronic) (peripheral); Translations: [Venous (peripheral) insufficiency, unspecified] Episodic Other diseases of veins and lymphatics (2 sources) Vascular insufficiency; Translations: [Venous insufficiency (chronic) (peripheral)] 12-08-2023 Episodic Other fractures (1 source) Fracture of [...] of small bowel obstruction] 10-02-2023 Episodic Other nervous system disorders (4 sources) Difficulty walking; Translations: [Difficulty in walking, not elsewhere classified] Onset: 3 11-28-2022 Chronic Other nutritional; endocrine; and metabolic disorders (8 sources) Simple obesity ; Translations: [Other obesity due to excess calories] Onset: 6 Chronic Other nutritional; endocrine; and metabolic disorders (8 sources) Body mass index 30+ - obesity; Translations: [Body mass index 31.0-31.9, adult] Onset: 6 Chronic Other skin disorders (1 source) Asteatosis cutis; Translations: [Xerosis cutis] 04-24-2024 Episodic Other upper respiratory disease (20 sources) Allergic [...] Classification Problem Date Documented Da te Episodic/Chronic E Codes: Fall (4 sources) Fall in home; Translations: [Unspecified fall, sequela] Onset: 10-09-2022 10-09-2022 Episodic Malaise and fatigue (20 sources) Other fatigue; Translations: [Malaise and fatigue] Onset: 07-03-2017 Episodic Open wounds of extremities (4 sources) Open wound, heel; Translations: [Unspecified open wound, right foot, subsequent encounter] Onset: 10-09-2022 10-09-2022 Episodic Open wounds of extremities (4 sources) Open wound, heel; Translations: [Unspecified open wound, left foot, sequela] Onset: 10-09-2022 10-09-2022 Episodic Open wounds of head; neck; and trunk (4 sources) Finding of sacral region; Translations: [Unspecified open wound of lower back and pelvis without penetration into retroperitoneum, initial encounter] Onset: 10-09-2022 10-09-2022 Episodic Other acquired deformities (4 sources) Ulnar drift; Translations: [Other deformity of right finger(s)] Onset: 09-20-2022 09-20-2022 Episodic Other connective tissue disease (4 sources) Rhabdomyolysis; Translations: [Rhabdomyolysis] Onset: 11-28-2022 11-28-2022 Episodic Other connective tissue disease (1 source) Pain of toes of bilateral feet; Translations: [Pain in right toe(s)] 12-08-2023 Episodic Other diseases of veins and lymphatics (20 sources) Peripheral venous insufficiency; Translations: [Venous insufficiency (chronic) (peripheral)] Onset: 11-28-2022 06-12-2023 Episodic Other gastrointestinal disorders (8 sources) Other [...] Basophils (Bld) [#/Vol] 0.0 10 3/uL 0.0-0.1 [facility] Basophils/100 WBC Auto (Bld) on 12-04-2023 Basophils/100 WBC (Bld) 0.5 % 0.2-2.0 [facility] Eosinophils/100 WBC Auto (Bl d)on 12-04-2023 Eosinophils/100 WBC (Bld) 3.0 % 0.9-7.0 [facility] Erythrocyte distribution wid th Auto (RBC) [Ratio]on 12-04-2023 Erythrocyte distribution width (RBC) [Ratio] 15.5 % High 11.0-15.0 [facility] Estimated glomerular filtrat ion rate (GFR) non- Americanon 12-04-2023 GFR/1.73 sq M.predicted among non-blacks MDRD (S/P/Bld) [Vol rate/Area] mL/min/{1.73_m2} >=60 [facility] Globulin Calc (S) [Mass/Vol] on 12-04-2023 Globulin (S) [Mass/Vol] 4.9 g/dL [facility] Hematocrit Auto (Bld) [Volum e fraction]on 12-04-2023 Hematocrit (Bld) [Volume fraction] 36.3 % Low 42.0-54.0 [facility] Hemoglobin [Mass/volume] in Bloodon 12-04-2023 Hemoglobin (Bld) [Mass/Vol] 11.8 g/dL Low 14.0-18.0 [facility] Iron binding capacity [Mass/ volume] in Serum or Plasmaon 12-04-2023 Iron binding capacity [Mass/Vol] 293.0 ug/dL 250.0-450.0 [facility] Iron saturation [Mass Fracti on] in Serum or Plasmaon 12-04-2023 Iron saturation [Mass fraction] 18.1 % [facility] Laboratory - Chemistry and C hemistry - challengeon 12-04-2023 Albumin [Mass/Vol] 2.7 g/dL Low 3.4-5.0 [facility] ALP [Catalytic activity/Vol] 98 U/L 46-116 [facility] ALT [Catalytic activity/Vol] 43 U/L 16-63 [facility] AST [Catalytic activity/Vol] 49 U/L High 15-37 [facility] Bilirubin [Mass/Vol] 0.7 mg/dL 0.2-1.0 [facility] Calcium [Mass/Vol] 9.0 mg/dL 8.5-10.1 [facility] Chloride [Moles/Vol] 105 mmol/L 98-107 [facility] CO2 [Moles/Vol] 29.1 mmol/L 21.0-32.0 [facility] Cobalamin (Vitamin B12) [Mass/Vol] 782.0 pg/mL 193.0-986.0 [facility] Creatinine [Mass/Vol] 0.78 mg/dL 0.70-1.30 [facility] Ferritin [Mass/Vol] 139.0 ng/mL 26.0-388.0 [facility] GFR/1.73 sq M.predicted MDRD (S/P/Bld) [Vol rate/Area] mL/min/{1.73_m2} >=60 [facility] Glucose [Mass/Vol] 90 mg/dL 74-106 [facility] Iron [Mass/Vol] 53.0 ug/dL Low 65.0-175.0 [facility] Potassium [Moles/Vol] 4.5 mmol/L 3.5-5.1 [facility] Protein [Mass/Vol] 7.6 g/dL 6.4-8.2 [facility] Sodium [Moles/Vol] 138 mmol/L 136-145 [facility] Urea nitrogen [Mass/Vol] 26.0 mg/dL High 7.0-18.0 [facility] Urea nitrogen/Creatinine [Mass ratio] 33.3 mg/mg [facility] Laboratory - Hematology and Cell countson 12-04-2023 Immature granulocytes/100 WBC (Bld) 0.2 % 0.0-0.5 [facility] Leukocytes [#/volume] correc александр for nucleated erythrocytes in Blood by Automated counon 12-04-2023 WBC corrected for nucl RBC Auto (Bld) [#/Vol] 5.6 10 3/uL 4.0-11.0 [facility] Lymphocytes Auto (Bld) [#/Vo l]on 12-04-2023 Lymphocytes (Bld) [#/Vol] 2.0 10 3/uL 1.2-3.8 [facility] Lymphocytes/100 WBC Auto (Bl d)on 12-04-2023 Lymphocytes/100 WBC (Bld) 36.0 % 20.5-60.0 [facility] MCH Auto (RBC) [Entitic mass ]on 12-04-2023 MCH (RBC) [Entitic mass] 30.3 pg 25.9-34.0 [facility] MCHC Auto (RBC) [Mass/Vol]on 12-04-2023 MCHC (RBC) [Mass/Vol] 32.5 g/dL 29.9-35.2 [facility] MCV Auto (RBC) [Entitic vol] on 12-04-2023 MCV (RBC) [Entitic vol] 93.1 fL 80.0-94.0 [facility] Monocytes Auto (Bld) [#/Vol] on 12-04-2023 Monocytes (Bld) [#/Vol] 0.3 10 3/uL 0.3-0.8 [facility] Monocytes/100 WBC Auto (Bld) on 12-04-2023 Monocytes/100 WBC (Bld) 5.7 % 1.7-12.0 [facility] Neutrophils Auto (Bld) [#/Vo l]on 12-04-2023 Neutrophils (Bld) [#/Vol] 3.1 10 3/uL 1.4-6.5 [facility] Neutrophils/100 WBC Auto (Bl d)on 12-04-2023 Neutrophils/100 WBC (Bld) 54.6 % 43.0-75.0 [facility] No Panel Informationon 12-03 Eosinophils # (Auto) 0.2 10 3/uL 0.0-0.7 [facility] Folate 8.50 ng/mL Low 8.60-58.90 [facility] Immature Granulocyte # (Auto) 0.01 10 3/uL 0.00-0.03 [facility] Platelet mean volume Auto (B ld) [Entitic vol]on 12-04-2023 Platelet mean volume (Bld) [Entitic vol] 9.9 fL 9.5-13.5 [facility] Platelets Auto (Bld) [#/Vol] on 12-04-2023 Platelets (Bld) [#/Vol] 143 10 3/uL Low 150-450 [facility] RBC Auto (Bld) [#/Vol]on RBC (Bld) [#/Vol] 3.90 10 6/uL Low 4.70-6.10 [facility] Serum or plasma albumin/glob ulin mass ratioon 12-04-2023 Albumin/Globulin [Mass ratio] 0.6 {ratio} [facility] Serum or plasma anion gap de terminationon 12-04-2023 Anion gap [Moles/Vol] 8.4 mmol/L [facility] Basophils Auto (Bld) [#/Vol] on 10-23-2023 Basophils (Bld) [#/Vol] 0.0 10 3/uL 0.0-0.1 [facility] Basophils/100 WBC Auto (Bld) on 10-23-2023 Basophils/100 WBC (Bld) 0.3 % 0.2-2.0 [facility] Eosinophils/100 WBC Auto (Bl d)on 10-23-2023 Eosinophils/100 WBC (Bld) 4.6 % 0.9-7.0 [facility] Erythrocyte distribution wid th Auto (RBC) [Ratio]on 10-23-2023 Erythrocyte distribution width (RBC) [Ratio] 15.4 % High 11.0-15.0 [facility] Estimated glomerular filtrat ion rate (GFR) non- Americanon 10-23-2023 GFR/1.73 sq M.predicted among non-blacks MDRD (S/P/Bld) [Vol rate/Area] mL/min/{1.73_m2} >=60 [facility] Globulin Calc (S) [Mass/Vol] on 10-23-2023 Globulin (S) [Mass/Vol] 4.9 g/dL [facility] Hematocrit Auto (Bld) [Volum e fraction]on 10-23-2023 Hematocrit (Bld) [Volume fraction] 35.9 % Low 42.0-54.0 [facility] Hemoglobin [Mass/volume] in Bloodon 10-23-2023 Hemoglobin (Bld) [Mass/Vol] 11.4 g/dL Low 14.0-18.0 [facility] Laboratory - Chemistry and C hemistry - challengeon 10-23-2023 Albumin [Mass/Vol] 2.8 g/dL Low 3.4-5.0 [facility] ALP [Catalytic activity/Vol] 98 U/L 46-116 [facility] ALT [Catalytic activity/Vol] 30 U/L 16-63 [facility] AST [Catalytic activity/Vol] 39 U/L High 15-37 [facility] Bilirubin [Mass/Vol] 0.8 mg/dL 0.2-1.0 [facility] Calcium [Mass/Vol] 8.8 mg/dL 8.5-10.1 [facility] Chloride [Moles/Vol] 104 mmol/L 98-107 [facility] CO2 [Moles/Vol] 31.0 mmol/L 21.0-32.0 [facility] Creatinine [Mass/Vol] 0.82 mg/dL 0.70-1.30 [facility] GFR/1.73 sq M.predicted MDRD (S/P/Bld) [Vol rate/Area] mL/min/{1.73_m2} >=60 [facility] Glucose [Mass/Vol] 91 mg/dL 74-106 [facility] Potassium [Moles/Vol] 4.3 mmol/L 3.5-5.1 [facility] Protein [Mass/Vol] 7.7 g/dL 6.4-8.2 [facility] Sodium [Moles/Vol] 140 mmol/L 136-145 [facility] Urea nitrogen [Mass/Vol] 23.0 mg/dL High 7.0-18.0 [facility] Urea nitrogen/Creatinine [Mass ratio] 28.0 mg/mg [facility] Laboratory - Hematology and Cell countson 10-23-2023 Immature granulocytes/100 WBC (Bld) 0.2 % 0.0-0.5 [facility] Leukocytes [#/volume] correc александр for nucleated erythrocytes in Blood by Automated counon 10-23-2023 WBC corrected for nucl RBC Auto (Bld) [#/Vol] 6.1 10 3/uL 4.0-11.0 [facility] Lymphocytes Auto (Bld) [#/Vo l]on 10-23-2023 Lymphocytes (Bld) [#/Vol] 1.8 10 3/uL 1.2-3.8 [facility] Lymphocytes/100 WBC Auto (Bl d)on 10-23-2023 Lymphocytes/100 WBC (Bld) 28.7 % 20.5-60.0 [facility] MCH Auto (RBC) [Entitic mass ]on 10-23-2023 MCH (RBC) [Entitic mass] 30.0 pg 25.9-34.0 [facility] MCHC Auto (RBC) [Mass/Vol]on 10-23-2023 MCHC (RBC) [Mass/Vol] 31.8 g/dL 29.9-35.2 [facility] MCV Auto (RBC) [Entitic vol] on 10-23-2023 MCV (RBC) [Entitic vol] 94.5 fL High 80.0-94.0 [facility] Monocytes Auto (Bld) [#/Vol] on 10-23-2023 Monocytes (Bld) [#/Vol] 0.3 10 3/uL 0.3-0.8 [facility] Monocytes/100 WBC Auto (Bld) on 10-23-2023 Monocytes/100 WBC (Bld) 5.6 % 1.7-12.0 [facility] Neutrophils Auto (Bld) [#/Vo l]on 10-23-2023 Neutrophils (Bld) [#/Vol] 3.7 10 3/uL 1.4-6.5 [facility] Neutrophils/100 WBC Auto (Bl d)on 10-23-2023 Neutrophils/100 WBC (Bld) 60.6 % 43.0-75.0 [facility] No Panel Informationon 10-22 Eosinophils # (Auto) 0.3 10 3/uL 0.0-0.7 [facility] Immature Granulocyte # (Auto) 0.01 10 3/uL 0.00-0.03 [facility] Platelet mean volume Auto (B ld) [Entitic vol]on 10-23-2023 Platelet mean volume (Bld) [Entitic vol] 9.8 fL 9.5-13.5 [facility] Platelets Auto (Bld) [#/Vol] on 10-23-2023 Platelets (Bld) [#/Vol] 188 10 3/uL 150-450 [facility] RBC Auto (Bld) [#/Vol]on RBC (Bld) [#/Vol] 3.80 10 6/uL Low 4.70-6.10 [facility] Serum or plasma albumin/glob ulin mass ratioon 10-23-2023 Albumin/Globulin [Mass ratio] 0.6 {ratio} [facility] Serum or plasma anion gap de terminationon 10-23-2023 Anion gap [Moles/Vol] 9.3 mmol/L [facility] Basic Metabolic Profon 09-01 Anion gap [Moles/Vol] 6 mmol/L Low 9-16 [facility] Comment on above: Performed By: #### B MP, TROPI #### [facility] [place] [address] Db2 Dba: Ramsey Rodriguez MD Calcium [Mass/Vol] 8.7 mg/dL Normal 8.6-10.4 [facility] Comment on above: Performed By: #### B MP, TROPI #### [facility] [address] [place] [address] Db2 Dba: Ramsey Rodriguez MD Chloride [Moles/Vol] 102 mmol/L Normal 98-107 [facility] Comment on above: Performed By: #### B MP, TROPI #### [facility] [address] [place] [address] Db2 Dba: Ramsey Rodriguez MD CO2 [Moles/Vol] 32 mmol/L High 20-31 [facility] Comment on above: Performed By: #### B EDWARD, TROPI #### [facility] [address] [place] [address] Db2 Dba: Ramsey Rodriguez MD Creatinine [Mass/Vol] 0.5 mg/dL Low 0.70-1.20 [facility] Comment on above: Performed By: #### B EDWARD, TROPI #### [address] [address] Db2 Dba: Ramsey Rodriguez MD GFR/1.73 sq M.predicted among non-blacks MDRD (S/P/Bld) [Vol rate/Area] mL/min/{1.73_m2} Normal >60 [facility] Comment on above: Result Comment: These [...] Performed By: #### B MP, TROPI #### [address] [address] Db2 Dba: Ramsey Rodriguez MD Glucose [Mass/Vol] 93 mg/dL Normal 74-99 [facility] Comment on above: Performed By: #### B EDWARD TROPI #### [facility] [address] [place] [address] Db2 Dba: Ramsey Rodriguez MD Potassium [Moles/Vol] 3.7 mmol/L Normal 3.7-5.3 [facility] Comment on above: Performed By: #### B EDWARD TROPI #### [facility] [address] [place] [address] Db2 Dba: Ramsey Rodriguez MD Sodium [Moles/Vol] 140 mmol/L Normal 136-145 [facility] Comment on above: Performed By: #### B EDWARD TROPI #### [facility] [address] [place] [address] Db2 Dba: Ramsey Rodriguez MD Urea nitrogen [Mass/Vol] 14 mg/dL Normal 8-23 [facility] Comment on above: Performed By: #### B EDWARD TROPI #### [facility] [address] [place] [address] Db2 Dba: Ramsey Rodriguez MD CBC with Diffon 09-02-2023 Abs. Basophil 0.03 k/uL Normal 0.00-0.20 [facility] Comment on above: Performed By: #### Nicol LEON TROPI #### [facility] [address] [place] [address] Db2 Dba: Ramsey Rodriguez MD Abs.Imm.Granulocyte 0.04 k/uL Normal 0.00-0.30 [facility] Comment on above: Performed By: #### B EDWARD TROPI #### [facility] [address] [place] [address] Db2 Dba: Ramsey Rodriguez MD Abs.Neutrophil (Seg) 4.12 k/uL Normal 1.50-8.10 [facility] Comment on above: Performed By: #### B EDWARD TROPI #### [facility] [place] [address] Db2 Dba: Ramsey Rodriguez MD Basophils/100 WBC (Bld) 1 % Normal 0-2 [facility] Comment on above: Performed By: #### B MP, TROPI #### [facility] [address] [place] [address] Db2 Dba: Ramsey Rodriguez MD Eosinophils (Bld) [#/Vol] 0.34 10*3/uL Normal 0.00-0.44 [facility] Comment on above: Performed By: #### B EDWARD, TROPI #### [facility] [address] [place] [address] Db2 Dba: Ramsey Rodriguez MD Eosinophils/100 WBC (Bld) 6 % High 1-4 [facility] Comment on above: Performed By: #### B EDWARD, TROPI #### [facility] [address] [place] [address] Db2 Dba: Ramsey Rodriguez MD Erythrocyte distribution width (RBC) [Ratio] 16.0 % High 11.8-14.4 [facility] Comment on above: Performed By: #### B EDWARD, TROPI #### [facility] [address] [place] [address] Db2 Dba: Ramsey Rodriguez MD Hematocrit (Bld) [Volume fraction] 33.4 % Low 40.7-50.3 [facility] Comment on above: Performed By: #### B MP, TROPI #### [facility] [address] [place] [address] Db2 Dba: Ramsey Rodriguez MD Hemoglobin (Bld) [Mass/Vol] 10.6 g/dL Low 13.0-17.0 [facility] Comment on above: Performed By: #### B MP, TROPI #### [facility] [address] [place] [address] Db2 Dba: Ramsey Rodriguez MD Immature granulocytes/100 WBC (Bld) 1 % High 0 [facility] Comment on above: Performed By: #### B MP, TROPI #### [facility] [address] [place] [address] Db2 Dba: Ramsey Rodriguez MD Lymphocytes (Bld) [#/Vol] 0.96 10*3/uL Low 1.10-3.70 [facility] Comment on above: Performed By: #### B MP, TROPI #### [address] [address] Db2 Dba: Ramsey Rodriguez MD Lymphocytes/100 WBC (Bld) 17 % Low 24-43 [facility] Comment on above: Performed By: #### B EDWARD, TROPI #### [facility] [address] [place] [address] Db2 Dba: Ramsey Rodriguez MD MCH (RBC) [Entitic mass] 30.5 pg Normal 25.2-33.5 [facility] Comment on above: Performed By: #### B MP, TROPI #### [facility] [address] [place] [address] Db2 Dba: Ramsey Rodriguez MD MCHC (RBC) [Mass/Vol] 31.7 g/dL Normal 28.4-34.8 [facility] Comment on above: Performed By: #### B MP, TROPI #### [facility] [address] [place] [address] Db2 Dba: Ramsey Rodriguez MD MCV (RBC) [Entitic vol] 96.0 fL Normal 82.6-102.9 [facility] Comment on above: Performed By: #### B MP, TROPI #### [facility] [address] [place] [address] Db2 Dba: Ramsey Rodriguez MD Monocytes (Bld) [#/Vol] 0.33 10*3/uL Normal 0.10-1.20 [facility] Comment on above: Performed By: #### B EDWARD, TROPI #### [address] [address] Db2 Dba: Ramsey Rodriguez MD Monocytes/100 WBC (Bld) 6 % Normal 3-12 [facility] Comment on above: Performed By: #### B MP, TROPI #### [facility] [address] [place] [address] Db2 Dba: Ramsey Rodriguez MD Neutrophil (Seg) 69 % High 36-65 [facility] Comment on above: Performed By: #### B EDAWRD, TROPI #### [address] [address] Db2 Dba: Ramsey Rodriguez MD NRBC Automated 0.0 per 100 WBC Normal 0.0 [facility] Comment on above: Performed By: #### B EDWARD, TROPI #### [address] [address] Db2 Dba: Ramsey Rodriguez MD Platelet mean volume (Bld) [Entitic vol] 10.0 fL Normal 8.1-13.5 [facility] Comment on above: Performed By: #### B EDWARD, TROPI #### [address] [address] Db2 Dba: Ramsey Rodriguez MD Platelets (Bld) [#/Vol] 190 10*3/uL Normal 138-453 [facility] Comment on above: Performed By: #### B EDWARD, TROPI #### [facility] [address] [place] [address] Db2 Dba: Ramsey Rodriguez MD RBC (Bld) [#/Vol] 3.48 10*6/uL Low 4.21-5.77 [facility] Comment on above: Performed By: #### B MP, TROPI #### [address] [address] Db2 Dba: Ramsey Rodriguez MD RBC morphology finding Nom (Bld) ANISOCYTOSIS PRESENT Normal [facility] [facility] Comment on above: Performed By: #### B MP, TROPI #### [address] [address] Db2 Dba: Ramsey Rodriguez MD WBC (Bld) [#/Vol] 5.8 10*3/uL Normal 3.5-11.3 [facility] Comment on above: Performed By: #### B MP, TROPI #### [address] [address] Db2 Dba: Ramsey Rodriguez MD Heparin Anti-Xaon 09-02-2023 Heparin Anti-Xa <0.10 Normal [facility] Comment on above: Performed By: #### B MP, TROPI #### [address] [address] Db2 Dba: Ramsey Rodriguez MD Basic Metabolic Profon 08-31 Anion gap [Moles/Vol] 7 mmol/L Low 9-16 [facility] Comment on above: Performed By: #### B MP, CDP, HEPXA #### [address] [address] Db2 Dba: Ramsey Rodriguez MD Calcium [Mass/Vol] 8.6 mg/dL Normal 8.6-10.4 [facility] Comment on above: Performed By: #### B MP, CDP, HEPXA #### [facility] [address] [place] [address] Db2 Dba: Ramsey Rodriguez MD Chloride [Moles/Vol] 102 mmol/L Normal 98-107 [facility] Comment on above: Performed By: #### B MP, CDP, HEPXA #### [facility] [address] [place] [address] Db2 Dba: Ramsey Rodriguez MD CO2 [Moles/Vol] 29 mmol/L Normal 20-31 [facility] Comment on above: Performed By: #### B FABIANO LEON, HEPXA #### [address] [address] Db2 Dba: Ramsey Rodriguez MD Creatinine [Mass/Vol] 0.6 mg/dL Low 0.70-1.20 [facility] Comment on above: Performed By: #### B FABIANO LEON HEPXA #### [facility] [address] [place] [address] Db2 Dba: Ramsey Rodriguez MD GFR/1.73 sq M.predicted among non-blacks MDRD (S/P/Bld) [Vol rate/Area] mL/min/{1.73_m2} Normal >60 [facility] Comment on above: Result Comment: These [...] By: #### B FABIANO LEON, HEPXA #### [facility] [place] [address] Db2 Dba: Ramsey Rodriguez MD Glucose [Mass/Vol] 98 mg/dL Normal 74-99 [facility] Comment on above: Performed By: #### B FABIANO LEON, HEPXA #### [facility] [address] [place] [address] Db2 Dba: Ramsey Rodriguez MD Potassium [Moles/Vol] 4.0 mmol/L Normal 3.7-5.3 [facility] Comment on above: Performed By: #### B MP, CDP, HEPXA #### [facility] [address] [place] [address] Db2 Dba: Ramsey Rodriguez MD Sodium [Moles/Vol] 138 mmol/L Normal 136-145 [facility] Comment on above: Performed By: #### B MP, CDP, HEPXA #### [address] [address] Db2 Dba: Ramsey Rodriguez MD Urea nitrogen [Mass/Vol] 15 mg/dL Normal 8-23 [facility] Comment on above: Performed By: #### B MP, CDP, HEPXA #### [facility] [address] [place] [address] Db2 Dba: Ramsey Rodriguez MD CBC with Diffon 09-01-2023 Abs. Basophil 0.03 k/uL Normal 0.00-0.20 [facility] Comment on above: Performed By: #### B MP, CDP, HEPXA #### [address] [address] Db2 Dba: Ramsey Rodriguez MD Abs.Imm.Granulocyte <0.03 Normal 0.00-0.30 [facility] Comment on above: Performed By: #### B MP, CDP, HEPXA #### [facility] [address] [place] [address] Db2 Dba: Ramsey Rodriguez MD Abs.Neutrophil (Seg) 5.05 k/uL Normal 1.50-8.10 [facility] Comment on above: Performed By: #### B MP, CDP, HEPXA #### [facility] [address] [place] [address] Db2 Dba: Ramsey Rodriguez MD Basophils/100 WBC (Bld) 0 % Normal 0-2 [facility] Comment on above: Performed By: #### B MP, CDP, HEPXA #### [address] [address] Db2 Dba: Ramsey Rodriguez MD Eosinophils (Bld) [#/Vol] 0.30 10*3/uL Normal 0.00-0.44 [facility] Comment on above: Performed By: #### B MP, CDP, HEPXA #### [address] [address] Db2 Dba: Ramsey Rodriguez MD Eosinophils/100 WBC (Bld) 4 % Normal 1-4 [facility] Comment on above: Performed By: #### B MP, CDP, HEPXA #### [address] [address] Db2 Dba: Ramsey Rodriguez MD Erythrocyte distribution width (RBC) [Ratio] 16.0 % High 11.8-14.4 [facility] Comment on above: Performed By: #### B MP, CDP, HEPXA #### [address] [address] Db2 Dba: Ramsey Rodriguez MD Hematocrit (Bld) [Volume fraction] 34.5 % Low 40.7-50.3 [facility] Comment on above: Performed By: #### B MP, CDP, HEPXA #### [address] [address] Db2 Dba: Ramsey Rodriguez MD Hemoglobin (Bld) [Mass/Vol] 10.9 g/dL Low 13.0-17.0 [facility] Comment on above: Performed By: #### B MP, CDP, HEPXA #### [address] [address] Db2 Dba: Ramsey Rodriguez MD Immature granulocytes/100 WBC (Bld) 0 % Normal 0 [facility] Comment on above: Performed By: #### B MP, CDP, HEPXA #### [facility] [address] [place] [address] Db2 Dba: Ramsey Rodriguez MD Lymphocytes (Bld) [#/Vol] 2.11 10*3/uL Normal 1.10-3.70 [facility] Comment on above: Performed By: #### B MP, CDP, HEPXA #### [address] [address] Db2 Dba: Ramsey Rodriguez MD Lymphocytes/100 WBC (Bld) 27 % Normal 24-43 [facility] Comment on above: Performed By: #### B MP, CDP, HEPXA #### [address] [address] Db2 Dba: Ramsey Rodriguez MD MCH (RBC) [Entitic mass] 30.9 pg Normal 25.2-33.5 [facility] Comment on above: Performed By: #### B MP, CDP, HEPXA #### [address] [address] Db2 Dba: Ramsey Rodriguez MD MCHC (RBC) [Mass/Vol] 31.6 g/dL Normal 28.4-34.8 [facility] Comment on above: Performed By: #### B MP, CDP, HEPXA #### [address] [address] Db2 Dba: Ramsey Rodriguez MD MCV (RBC) [Entitic vol] 97.7 fL Normal 82.6-102.9 [facility] Comment on above: Performed By: #### B MP, CDP, HEPXA #### [address] [address] Db2 Dba: Ramsey Rodriguez MD Monocytes (Bld) [#/Vol] 0.39 10*3/uL Normal 0.10-1.20 [facility] Comment on above: Performed By: #### B MP, CDP, HEPXA #### [address] [address] Db2 Dba: Ramsey Rodriguez MD Monocytes/100 WBC (Bld) 5 % Normal 3-12 [facility] Comment on above: Performed By: #### B MP, CDP, HEPXA #### [facility] [address] [place] [address] Db2 Dba: Ramsey Rodriguez MD Neutrophil (Seg) 64 % Normal 36-65 [facility] Comment on above: Performed By: #### B MP, CDP, HEPXA #### [facility] [address] [place] [address] Db2 Dba: Ramsey Rodriguez MD NRBC Automated 0.0 per 100 WBC Normal 0.0 [facility] Comment on above: Performed By: #### B MP, CDP, HEPXA #### [address] [address] Db2 Dba: Ramsey Rodriguez MD Platelet mean volume (Bld) [Entitic vol] 10.5 fL Normal 8.1-13.5 [facility] Comment on above: Performed By: #### B MP, CDP, HEPXA #### [facility] [address] [place] [address] Db2 Dba: Ramsey Rodriguez MD Platelets (Bld) [#/Vol] 188 10*3/uL Normal 138-453 [facility] Comment on above: Performed By: #### B MP, CDP, HEPXA #### [facility] [address] [place] [address] Db2 Dba: Ramsey Rodriguez MD RBC (Bld) [#/Vol] 3.53 10*6/uL Low 4.21-5.77 [facility] Comment on above: Performed By: #### B MP, CDP, HEPXA #### [facility] [address] [place] [address] Db2 Dba: Ramsey Rodriguez MD RBC morphology finding Nom (Bld) ANISOCYTOSIS PRESENT Normal [facility] Comment on above: Performed By: #### B MP, CDP, HEPXA #### [address] [address] Db2 Dba: Ramsey Rodriguez MD WBC (Bld) [#/Vol] 7.9 10*3/uL Normal 3.5-11.3 [facility] Comment on above: Performed By: #### B MP, CDP, HEPXA #### [address] [address] Db2 Dba: Ramsey Rodriguez MD Heparin Anti-Xaon 09-01-2023 Heparin Anti-Xa 0.43 IU/L Normal [facility] Comment on above: Performed By: #### B MP, CDP, HEPXA #### [address] [address] Db2 Dba: Ramsey Rodriguez MD Basic Metabolic Profon 08-30 Anion gap [Moles/Vol] 8 mmol/L Low 9-16 [facility] Comment on above: Performed By: #### B MP, CDP, HEPXA #### [facility] [address] [place] [address] Db2 Dba: Ramsey Rodriguez MD Calcium [Mass/Vol] 8.2 mg/dL Low 8.6-10.4 [facility] Comment on above: Performed By: #### B MP, CDP, HEPXA #### [facility] [address] [place] [address] Db2 Dba: Ramsey Rodriguez MD Chloride [Moles/Vol] 103 mmol/L Normal 98-107 [facility] Comment on above: Performed By: #### B MP, CDP, HEPXA #### [facility] [address] [place] [address] Db2 Dba: Ramsey Rodriguez MD CO2 [Moles/Vol] 28 mmol/L Normal 20-31 [facility] Comment on above: Performed By: #### B FABIANO LEON, HEPXA #### [facility] [place] [address] Db2 Dba: Ramsey Rodriguez MD Creatinine [Mass/Vol] 0.6 mg/dL Low 0.70-1.20 [facility] Comment on above: Performed By: #### B MP CDP, HEPXA #### [facility] [address] [place] [address] Db2 Dba: Ramsey Rodriguez MD GFR/1.73 sq M.predicted among non-blacks MDRD (S/P/Bld) [Vol rate/Area] mL/min/{1.73_m2} Normal >60 [facility] Comment on above: Result Comment: These [...] By: #### B FABIANO LEON, HEPXA #### [facility] [address] [place] [address] Db2 Dba: Ramsey Rodriguez MD Glucose [Mass/Vol] 104 mg/dL High 74-99 [facility] Comment on above: Performed By: #### B EDWARD CDP, HEPXA #### [facility] [place] [address] Db2 Dba: Ramsey Rodriguez MD Potassium [Moles/Vol] 3.5 mmol/L Low 3.7-5.3 [facility] Comment on above: Performed By: #### B EDWARD CDP, HEPXA #### [facility] [address] [place] [address] Db2 Dba: Ramsey Rodriguez MD Sodium [Moles/Vol] 139 mmol/L Normal 136-145 [facility] Comment on above: Performed By: #### B FABIANO LEON, HEPXA #### [address] [address] Db2 Dba: Ramsey Rodriguez MD Urea nitrogen [Mass/Vol] 17 mg/dL Normal 8-23 [facility] Comment on above: Performed By: #### B FABIANO LEON, HEPXA #### [place] [address] Db2 Dba: Ramsey Rodriguez MD CBC with Diffon 08-31-2023 Abs. Basophil <0.03 Normal 0.00-0.20 [facility] Comment on above: Performed By: #### T ROPI #### [place] [address] Db2 Dba: Ramsey Rodriguez MD Abs.Imm.Granulocyte 0.03 k/uL Normal 0.00-0.30 [facility] Comment on above: Performed By: #### T ROPI #### [address] [address] Db2 Dba: Ramsey Rodriguez MD Abs.Neutrophil (Seg) 4.38 k/uL Normal 1.50-8.10 [facility] Comment on above: Performed By: #### T ROPI #### [place] [address] Db2 Dba: Ramsey Rodriguez MD Basophils/100 WBC (Bld) 0 % Normal 0-2 [facility] Comment on above: Performed By: #### T ROPI #### [address] [address] Db2 Dba: Ramsey Rodriguez MD Eosinophils (Bld) [#/Vol] 0.21 10*3/uL Normal 0.00-0.44 [facility] Comment on above: Performed By: #### T ROPI #### [address] [address] Db2 Dba: Ramsey Rodriguez MD Eosinophils/100 WBC (Bld) 3 % Normal 1-4 [facility] Comment on above: Performed By: #### T ROPI #### [place] [address] Db2 Dba: Ramsey Rodriguez MD Erythrocyte distribution width (RBC) [Ratio] 15.9 % High 11.8-14.4 [facility] Comment on above: Performed By: #### T ROPI #### [place] [address] Db2 Dba: Ramsey Rodriguez MD Hematocrit (Bld) [Volume fraction] 33.3 % Low 40.7-50.3 [facility] Comment on above: Performed By: #### T ROPI #### [place] [address] Db2 Dba: Ramsey Rodriguez MD Hemoglobin (Bld) [Mass/Vol] 10.4 g/dL Low 13.0-17.0 [facility] Comment on above: Performed By: #### T ROPI #### [address] [address] Db2 Dba: Ramsey Rodriguez MD Immature granulocytes/100 WBC (Bld) 1 % High 0 [facility] Comment on above: Performed By: #### T ROPI #### [place] [address] Db2 Dba: Ramsey Rodriguez MD Lymphocytes (Bld) [#/Vol] 1.31 10*3/uL Normal 1.10-3.70 [facility] Comment on above: Performed By: #### T ROPI #### [place] [address] Db2 Dba: Ramsey Rodriguez MD Lymphocytes/100 WBC (Bld) 21 % Low 24-43 [facility] Comment on above: Performed By: #### T ROPI #### [address] [address] Db2 Dba: Ramsey Rodriguez MD MCH (RBC) [Entitic mass] 30.9 pg Normal 25.2-33.5 [facility] Comment on above: Performed By: #### T ROPI #### [address] [address] Db2 Dba: Ramsey Rodriguez MD MCHC (RBC) [Mass/Vol] 31.2 g/dL Normal 28.4-34.8 [facility] Comment on above: Performed By: #### T ROPI #### [address] [address] Db2 Dba: Ramsey Rodriguez MD MCV (RBC) [Entitic vol] 98.8 fL Normal 82.6-102.9 [facility] Comment on above: Performed By: #### T ROPI #### [address] [address] Db2 Dba: Ramsey Rodriguez MD Monocytes (Bld) [#/Vol] 0.31 10*3/uL Normal 0.10-1.20 [facility] Comment on above: Performed By: #### T ROPI #### [address] [address] Db2 Dba: Ramsey Rodriguez MD Monocytes/100 WBC (Bld) 5 % Normal 3-12 [facility] Comment on above: Performed By: #### T ROPI #### [address] [address] Db2 Dba: Ramsey Rodriguze MD Neutrophil (Seg) 70 % High 36-65 [facility] Comment on above: Performed By: #### T ROPI #### [address] [address] Db2 Dba: Ramsey Rodriguez MD NRBC Automated 0.0 per 100 WBC Normal 0.0 [facility] Comment on above: Performed By: #### T ROPI #### [address] [address] Db2 Dba: Ramsey Rodriguez MD Platelet mean volume (Bld) [Entitic vol] 10.4 fL Normal 8.1-13.5 [facility] Comment on above: Performed By: #### T ROPI #### [address] [address] Db2 Dba: Ramsey Rodriguez MD Platelets (Bld) [#/Vol] 160 10*3/uL Normal 138-453 [facility] Comment on above: Performed By: #### T ROPI #### [address] [address] Db2 Dba: Ramsey Rodriguez MD RBC (Bld) [#/Vol] 3.37 10*6/uL Low 4.21-5.77 [facility] Comment on above: Performed By: #### T ROPI #### [address] [address] Db2 Dba: Ramsey Rodriguez MD RBC morphology finding Nom (Bld) ANISOCYTOSIS PRESENT Normal [facility] Comment on above: Performed By: #### T ROPI #### [address] [address] Db2 Dba: Ramsey Rodriguez MD WBC (Bld) [#/Vol] 6.3 10*3/uL Normal 3.5-11.3 [facility] Comment on above: Performed By: #### T ROPI #### [address] [place] [address] Db2 Dba: Ramsey Rodriguez MD Heparin Anti-Xaon 08-31-2023 Heparin Anti-Xa 0.39 IU/L Normal [facility] Comment on above: Performed By: #### H EPXA, CBC, PTT, PT #### [address] [address] Db2 Dba: Ramsey Rodriguez MD Basic Metabolic Profon 08-29 Anion gap [Moles/Vol] 7 mmol/L Low 9-16 [facility] Comment on above: Performed By: #### B MP, CDP, HEPXA #### [facility] [address] [place] [address] Db2 Dba: Ramsey Rodriguez MD Calcium [Mass/Vol] 8.2 mg/dL Low 8.6-10.4 [facility] Comment on above: Performed By: #### B MP, CDP, HEPXA #### [facility] [address] [place] [address] Db2 Dba: Ramsey Rodriugez MD Chloride [Moles/Vol] 104 mmol/L Normal 98-107 [facility] Comment on above: Performed By: #### B MP, CDP, HEPXA #### [facility] [address] [place] [address] Db2 Dba: Ramsey Rodriguez MD CO2 [Moles/Vol] 29 mmol/L Normal 20-31 [facility] Comment on above: Performed By: #### B MP, CDP, HEPXA #### [facility] [address] [place] [address] Db2 Dba: Ramsey Rodriguez MD Creatinine [Mass/Vol] 0.7 mg/dL Normal 0.70-1.20 [facility] Comment on above: Performed By: #### B MP, CDP, HEPXA #### [facility] [address] [place] [address] Db2 Dba: Ramsey Rodriguez MD GFR/1.73 sq M.predicted among non-blacks MDRD (S/P/Bld) [Vol rate/Area] mL/min/{1.73_m2} Normal >60 [facility] Comment on above: Result Comment: These [...] By: #### B EDWARD CDP, HEPXA #### [address] [address] Db2 Dba: Ramsey Rodriguez MD Glucose [Mass/Vol] 94 mg/dL Normal 74-99 [facility] Comment on above: Performed By: #### B EDWARD CDP, HEPXA #### [facility] [address] [place] [address] Db2 Dba: Ramsey Rodriguez MD Potassium [Moles/Vol] 3.6 mmol/L Low 3.7-5.3 [facility] Comment on above: Performed By: #### B EDWARD CDP, HEPXA #### [facility] [address] [place] [address] Db2 Dba: Ramsey Rodriguez MD Sodium [Moles/Vol] 140 mmol/L Normal 136-145 [facility] Comment on above: Performed By: #### B MP, CDP, HEPXA #### [facility] [address] [place] [address] Db2 Dba: Ramsey Rodriguez MD Urea nitrogen [Mass/Vol] 14 mg/dL Normal 8-23 [facility] Comment on above: Performed By: #### B MP, CDP, HEPXA #### [facility] [address] [place] [address] Db2 Dba: Ramsey Rodriguez MD CBC with Diffon 08-30-2023 Abs. Basophil <0.03 Normal 0.00-0.20 [facility] Comment on above: Performed By: #### B MP, CDP, HEPXA #### [address] [address] Db2 Dba: Ramsey Rodriguez MD Abs.Imm.Granulocyte 0.03 k/uL Normal 0.00-0.30 [facility] Comment on above: Performed By: #### B MP, CDP, HEPXA #### [place] [address] Db2 Dba: Ramsey Rodriguez MD Abs.Neutrophil (Seg) 3.72 k/uL Normal 1.50-8.10 [facility] Comment on above: Performed By: #### B MP, CDP, HEPXA #### [place] [address] Db2 Dba: Ramsey Rodriguez MD Basophils/100 WBC (Bld) 0 % Normal 0-2 [facility] Comment on above: Performed By: #### B MP, CDP, HEPXA #### [address] [address] Db2 Dba: Ramsey Rodriguez MD Eosinophils (Bld) [#/Vol] 0.22 10*3/uL Normal 0.00-0.44 [facility] Comment on above: Performed By: #### B MP, CDP, HEPXA #### [address] [address] Db2 Dba: Ramsey Rodriguez MD Eosinophils/100 WBC (Bld) 4 % Normal 1-4 [facility] Comment on above: Performed By: #### B MP, CDP, HEPXA #### [facility] [address] [place] [address] Db2 Dba: Ramsey Rodriguez MD Erythrocyte distribution width (RBC) [Ratio] 15.8 % High 11.8-14.4 [facility] Comment on above: Performed By: #### B MP, CDP, HEPXA #### [facility] [address] [place] [address] Db2 Dba: Ramsey Rodriguez MD Hematocrit (Bld) [Volume fraction] 31.1 % Low 40.7-50.3 [facility] Comment on above: Performed By: #### B MP, CDP, HEPXA #### [facility] [address] [place] [address] Db2 Dba: Ramsey Rodriguez MD Hemoglobin (Bld) [Mass/Vol] 10.1 g/dL Low 13.0-17.0 [facility] Comment on above: Performed By: #### B MP, CDP, HEPXA #### [address] [address] Db2 Dba: Ramsey Rodriguez MD Immature granulocytes/100 WBC (Bld) 1 % High 0 [facility] Comment on above: Performed By: #### B MP, CDP, HEPXA #### [address] [address] Db2 Dba: Ramsey Rodriguez MD Lymphocytes (Bld) [#/Vol] 1.25 10*3/uL Normal 1.10-3.70 [facility] Comment on above: Performed By: #### B MP, CDP, HEPXA #### [facility] [address] [place] [address] Db2 Dba: Ramsey Rodriguez MD Lymphocytes/100 WBC (Bld) 22 % Low 24-43 [facility] Comment on above: Performed By: #### B MP, CDP, HEPXA #### [facility] [address] [place] [address] Db2 Dba: Ramsey Rodriguez MD MCH (RBC) [Entitic mass] 30.6 pg Normal 25.2-33.5 [facility] Comment on above: Performed By: #### B MP, CDP, HEPXA #### [facility] [address] [place] [address] Db2 Dba: Ramsey Rodriguez MD MCHC (RBC) [Mass/Vol] 32.5 g/dL Normal 28.4-34.8 [facility] Comment on above: Performed By: #### B MP, CDP, HEPXA #### [facility] [address] [place] [address] Db2 Dba: Ramsey Rodriguez MD MCV (RBC) [Entitic vol] 94.2 fL Normal 82.6-102.9 [facility] Comment on above: Performed By: #### B MP, CDP, HEPXA #### [address] [address] Db2 Dba: Ramsey Rodriguez MD Monocytes (Bld) [#/Vol] 0.35 10*3/uL Normal 0.10-1.20 [facility] Comment on above: Performed By: #### B MP, CDP, HEPXA #### [facility] [address] [place] [address] Db2 Dba: Ramsey Rodriguez MD Monocytes/100 WBC (Bld) 6 % Normal 3-12 [facility] Comment on above: Performed By: #### B MP, CDP, HEPXA #### [facility] [address] [place] [address] Db2 Dba: Ramsey Rodriguez MD Neutrophil (Seg) 67 % High 36-65 [facility] Comment on above: Performed By: #### B MP, CDP, HEPXA #### [facility] [address] [place] [address] Db2 Dba: Ramsey Rodriguez MD NRBC Automated 0.0 per 100 WBC Normal 0.0 [facility] Comment on above: Performed By: #### B MP, CDP, HEPXA #### [address] [address] Db2 Dba: Ramsey Rodriguez MD Platelet mean volume (Bld) [Entitic vol] 10.2 fL Normal 8.1-13.5 [facility] Comment on above: Performed By: #### B MP, CDP, HEPXA #### [address] [address] Db2 Dba: Ramsey Rodriguez MD Platelets (Bld) [#/Vol] 158 10*3/uL Normal 138-453 [facility] Comment on above: Performed By: #### B MP, CDP, HEPXA #### [address] [address] Db2 Dba: Ramsey Rodriguez MD RBC (Bld) [#/Vol] 3.30 10*6/uL Low 4.21-5.77 [facility] Comment on above: Performed By: #### B MP, CDP, HEPXA #### [address] [address] Db2 Dba: Ramsey Rodriguez MD RBC morphology finding Nom (Bld) ANISOCYTOSIS PRESENT Normal [facility] Comment on above: Performed By: #### B MP, CDP, HEPXA #### [address] [address] Db2 Dba: Ramsey Rodriguez MD WBC (Bld) [#/Vol] 5.6 10*3/uL Normal 3.5-11.3 [facility] Comment on above: Performed By: #### B MP, CDP, HEPXA #### [address] [address] Db2 Dba: Ramsey Rodriguez MD Heparin Anti-Xaon 08-30-2023 Heparin Anti-Xa 0.43 IU/L Normal [facility] Comment on above: Performed By: #### H EPXA, CBC, PTT, PT #### [address] [address] Db2 Dba: Ramsey Rodriguez MD Heparin Anti-Xa 0.42 IU/L Normal [facility] Comment on above: Performed By: #### B MP, CDP, HEPXA #### [facility] [address] [place] [address] Db2 Dba: Ramsey Rodriguez MD Heparin Anti-Xa 0.27 IU/L Normal [facility] Comment on above: Performed By: #### B MP, CDP, HEPXA #### [facility] [address] [place] [address] Db2 Dba: Ramsey Rodriguez MD Troponinon 08-30-2023 Troponin, High Sens 138 ng/L Critically high 0-22 [facility] Comment on above: Result Comment: High Sensitivity Troponin values cannot be compared with other Troponin methodologies. Previous Alert Value Reported Performed By: #### B EDWARD CDP, HEPXA #### [facility] [address] [place] [address] Db2 Dba: Ramsey Rodriguez MD Basic Metabolic Profon 08-28 Anion gap [Moles/Vol] 6 mmol/L Low 9-16 [facility] Comment on above: Performed By: #### B MP, CDP, HEPXA #### [facility] [address] [place] [address] Db2 Dba: Ramsey Rodriguez MD Calcium [Mass/Vol] 8.2 mg/dL Low 8.6-10.4 [facility] Comment on above: Performed By: #### B MP, CDP, HEPXA #### [facility] [address] [place] [address] Db2 Dba: Ramsey Rodriguez MD Chloride [Moles/Vol] 106 mmol/L Normal 98-107 [facility] Comment on above: Performed By: #### B MP, CDP, HEPXA #### [facility] [address] [place] [address] Db2 Dba: Ramsey Rodriguez MD CO2 [Moles/Vol] 29 mmol/L Normal 20-31 [facility] Comment on above: Performed By: #### B MP, CDP, HEPXA #### [facility] [address] [place] [address] Db2 Dba: Ramsey Rodriguez MD Creatinine [Mass/Vol] 0.6 mg/dL Low 0.70-1.20 [facility] Comment on above: Performed By: #### B EDWARD CDP, HEPXA #### [address] [address] Db2 Dba: Ramsey Rodriguez MD GFR/1.73 sq M.predicted among non-blacks MDRD (S/P/Bld) [Vol rate/Area] mL/min/{1.73_m2} Normal >60 [facility] Comment on above: Result Comment: These [...] By: #### B MP, CDP, HEPXA #### [facility] [place] [address] Db2 Dba: Ramsey Rodriguez MD Glucose [Mass/Vol] 85 mg/dL Normal 74-99 [facility] Comment on above: Performed By: #### B MP, CDP, HEPXA #### [facility] [address] [place] [address] Db2 Dba: Ramsey Rodriguez MD Potassium [Moles/Vol] 3.9 mmol/L Normal 3.7-5.3 [facility] Comment on above: Performed By: #### B MP, CDP, HEPXA #### [address] [address] Db2 Dba: Ramsey Rodriguez MD Sodium [Moles/Vol] 141 mmol/L Normal 136-145 [facility] Comment on above: Performed By: #### B MP, CDP, HEPXA #### [address] [address] Db2 Dba: Ramsey Rodriguez MD Urea nitrogen [Mass/Vol] 9 mg/dL Normal 8-23 [facility] Comment on above: Performed By: #### B MP, CDP, HEPXA #### [address] [address] Db2 Dba: Ramsey Rodriguez MD CBC with Diffon 08-29-2023 Abs. Basophil <0.03 Normal 0.00-0.20 [facility] Comment on above: Performed By: #### B MP, CDP, HEPXA #### [address] [address] Db2 Dba: Ramsey Rodriguez MD Abs.Imm.Granulocyte <0.03 Normal 0.00-0.30 [facility] Comment on above: Performed By: #### B MP, CDP, HEPXA #### [facility] [address] [place] [address] Db2 Dba: Ramsey Rodriguez MD Abs.Neutrophil (Seg) 3.04 k/uL Normal 1.50-8.10 [facility] Comment on above: Performed By: #### B MP, CDP, HEPXA #### [facility] [address] [place] [address] Db2 Dba: Ramsey Rodriguez MD Basophils/100 WBC (Bld) 0 % Normal 0-2 [facility] Comment on above: Performed By: #### B MP, CDP, HEPXA #### [address] [address] Db2 Dba: Ramsey Rodriguez MD Eosinophils (Bld) [#/Vol] 0.28 10*3/uL Normal 0.00-0.44 [facility] Comment on above: Performed By: #### B MP, CDP, HEPXA #### [address] [address] Db2 Dba: Ramsey Rodriguez MD Eosinophils/100 WBC (Bld) 6 % High 1-4 [facility] Comment on above: Performed By: #### B MP, CDP, HEPXA #### [facility] [address] [place] [address] Db2 Dba: Ramsey Rodriguez MD Erythrocyte distribution width (RBC) [Ratio] 15.7 % High 11.8-14.4 [facility] Comment on above: Performed By: #### B MP, CDP, HEPXA #### [address] [address] Db2 Dba: Ramsey Rodriguez MD Hematocrit (Bld) [Volume fraction] 32.4 % Low 40.7-50.3 [facility] Comment on above: Performed By: #### B MP, CDP, HEPXA #### [facility] [address] [place] [address] Db2 Dba: Ramsey Rodriguez MD Hemoglobin (Bld) [Mass/Vol] 10.2 g/dL Low 13.0-17.0 [facility] Comment on above: Performed By: #### B MP, CDP, HEPXA #### [facility] [address] [place] [address] Db2 Dba: Ramsey Rodriguez MD Immature granulocytes/100 WBC (Bld) 0 % Normal 0 [facility] Comment on above: Performed By: #### B MP, CDP, HEPXA #### [address] [address] Db2 Dba: Ramsey Rodriguez MD Lymphocytes (Bld) [#/Vol] 1.36 10*3/uL Normal 1.10-3.70 [facility] Comment on above: Performed By: #### B MP, CDP, HEPXA #### [address] [address] Db2 Dba: Ramsey Rodriguez MD Lymphocytes/100 WBC (Bld) 27 % Normal 24-43 [facility] Comment on above: Performed By: #### B MP, CDP, HEPXA #### [address] [address] Db2 Dba: Ramsey Rodriguez MD MCH (RBC) [Entitic mass] 30.8 pg Normal 25.2-33.5 [facility] Comment on above: Performed By: #### B MP, CDP, HEPXA #### [address] [address] Db2 Dba: Ramsey Rodriguez MD MCHC (RBC) [Mass/Vol] 31.5 g/dL Normal 28.4-34.8 [facility] Comment on above: Performed By: #### B MP, CDP, HEPXA #### [address] [address] Db2 Dba: Ramsey Rodriguez MD MCV (RBC) [Entitic vol] 97.9 fL Normal 82.6-102.9 [facility] Comment on above: Performed By: #### B MP, CDP, HEPXA #### [address] [address] Db2 Dba: Ramsey Rodriguez MD Monocytes (Bld) [#/Vol] 0.37 10*3/uL Normal 0.10-1.20 [facility] Comment on above: Performed By: #### B MP, CDP, HEPXA #### [address] [address] Db2 Dba: Ramsey Rodriguez MD Monocytes/100 WBC (Bld) 7 % Normal 3-12 [facility] Comment on above: Performed By: #### B MP, CDP, HEPXA #### [address] [address] Db2 Dba: Ramsey Rodriguez MD Neutrophil (Seg) 60 % Normal 36-65 [facility] Comment on above: Performed By: #### B MP, CDP, HEPXA #### [address] [address] Db2 Dba: Ramsey Rodriguez MD NRBC Automated 0.0 per 100 WBC Normal 0.0 [facility] Comment on above: Performed By: #### B MP, CDP, HEPXA #### [address] [address] Db2 Dba: Ramsey Rodriguez MD Platelet mean volume (Bld) [Entitic vol] 10.4 fL Normal 8.1-13.5 [facility] Comment on above: Performed By: #### B MP, CDP, HEPXA #### [address] [address] Db2 Dba: Ramsey Rodriguez MD Platelets (Bld) [#/Vol] 144 10*3/uL Normal 138-453 [facility] Comment on above: Performed By: #### B MP, CDP, HEPXA #### [address] [address] Db2 Dba: Ramsey Rodriguez MD RBC (Bld) [#/Vol] 3.31 10*6/uL Low 4.21-5.77 [facility] Comment on above: Performed By: #### B MP, CDP, HEPXA #### [facility] [address] Db2 Dba: Ramsey Rodriguez MD RBC morphology finding Nom (Bld) ANISOCYTOSIS PRESENT Normal [facility] Comment on above: Performed By: #### B MP, CDP, HEPXA #### [address] [address] Db2 Dba: Ramsey Rodriguez MD WBC (Bld) [#/Vol] 5.1 10*3/uL Normal 3.5-11.3 [facility] Comment on above: Performed By: #### B MP, CDP, HEPXA #### [address] [address] Db2 Dba: Ramsey Rodriguez MD Heparin Anti-Xaon 08-29-2023 Heparin Anti-Xa 0.35 IU/L Normal [facility] Comment on above: Performed By: #### H EPXA, CBC, PTT, PT #### [address] [address] Db2 Dba: Ramsey Rodriguez MD Heparin Anti-Xa 0.38 IU/L Normal [facility] Comment on above: Performed By: #### B MP, TROPI #### [address] [address] Db2 Dba: Ramsey Rodriguez MD Heparin Anti-Xa 0.40 IU/L Normal [facility] Comment on above: Performed By: #### B MP, CDP, HEPXA #### [address] [address] Db2 Dba: Ramsey Rodriguez MD Magnesiumon 08-29-2023 Magnesium [Mass/Vol] 2.1 mg/dL Normal 1.6-2.4 [facility] Comment on above: Performed By: #### B MP, CDP, HEPXA #### [address] [address] Db2 Dba: Ramsey Rodriguez MD Phosphorus, Inorg.on 024 Phosphorus, Inorg. 2.7 mg/dL Normal 2.5-4.5 [facility] Comment on above: Performed By: #### B FABIANO LEON, HEPXA #### [facility] [address] [place] [address] Db2 Dba: Ramsey Rodriguez MD Troponinon 08-29-2023 Troponin, High Sens 142 ng/L Critically high 0-22 [facility] Comment on above: Result Comment: High Sensitivity Troponin values cannot be compared with other Troponin methodologies. Previous Alert Value Reported Performed By: #### T ROPI #### [facility] [address] [place] [address] Db2 Dba: Ramsey Rodriguez MD Troponin, High Sens 159 ng/L Critically high 0-22 [facility] Comment on above: Result Comment: High Sensitivity Troponin values cannot be compared with other Troponin methodologies. Previous Alert Value Reported Performed By: #### B FABIANO LEON, HEPXA #### [facility] [address] [place] [address] Db2 Dba: Ramsey Rodriguez MD Troponin, High Sens 162 ng/L Critically high 022 [facility] Comment on above: Result Comment: High Sensitivity Troponin values cannot be compared with other Troponin methodologies. Previous Alert Value Reported Performed By: #### B FABIANO LEON, HEPXA #### [facility] [address] [place] [address] Db2 Dba: Ramsey Rodriguez MD APTTon 08-28-2023 aPTT Coag (Bld) [Time] 28.4 s Normal 23.0-36.5 [facility] Comment on above: Result Comment: IV Heparin Therapy Range: 66.0-92.0 sec Performed By: #### H EPXA, CBC, PTT, PT #### [facility] [address] [place] [address] Db2 Dba: Ramsey Rodriguez MD Basic Metabolic Profon 08-27 Anion gap [Moles/Vol] 8 mmol/L Low 9-16 [facility] Comment on above: Performed By: #### B MP, TROPI #### [facility] [place] [address] Db2 Dba: Ramsey Rodriguez MD Calcium [Mass/Vol] 8.3 mg/dL Low 8.6-10.4 [facility] Comment on above: Performed By: #### B MP, TROPI #### [facility] [address] [place] [address] Db2 Dba: Ramsey Rodriguez MD Chloride [Moles/Vol] 103 mmol/L Normal 98-107 [facility] Comment on above: Performed By: #### B EDWARD, TROPI #### [facility] [address] [place] [address] Db2 Dba: Ramsey Rodriguez MD CO2 [Moles/Vol] 27 mmol/L Normal 20-31 [facility] Comment on above: Performed By: #### B MP, TROPI #### [facility] [address] [place] [address] Db2 Dba: Ramsey Rodriguez MD Creatinine [Mass/Vol] 0.5 mg/dL Low 0.70-1.20 [facility] Comment on above: Performed By: #### B EDWARD, TROPI #### [facility] [address] [place] [address] Db2 Dba: Ramsey Rodriguez MD GFR/1.73 sq M.predicted among non-blacks MDRD (S/P/Bld) [Vol rate/Area] mL/min/{1.73_m2} Normal >60 [facility] Comment on above: Result Comment: These [...] Performed By: #### B EDWARD TROPI #### [facility] [address] [place] [address] Db2 Dba: Ramsey Rodriguez MD Glucose [Mass/Vol] 112 mg/dL High 74-99 [facility] Comment on above: Performed By: #### B EDWARD TROPI #### [facility] [address] [place] [address] Db2 Dba: Ramsey Rodriguez MD Potassium [Moles/Vol] 3.7 mmol/L Normal 3.7-5.3 [facility] Comment on above: Performed By: #### B EDWARD TROPI #### [facility] [address] [place] [address] Db2 Dba: Ramsey Rodriguez MD Sodium [Moles/Vol] 138 mmol/L Normal 136-145 [facility] Comment on above: Performed By: #### B EDWARD TROPI #### [facility] [address] [place] [address] Db2 Dba: Ramsey Rodriguez MD Urea nitrogen [Mass/Vol] 9 mg/dL Normal 8-23 [facility] Comment on above: Performed By: #### B EDWARD TROPI #### [facility] [address] [place] [address] Db2 Dba: Ramsey Rodriguez MD Anion gap [Moles/Vol] 8 mmol/L Low 9-16 [facility] Comment on above: Performed By: #### T ROPI #### [facility] [address] [place] [address] Db2 Dba: Ramsey Rodriguez MD Chloride [Moles/Vol] 105 mmol/L Normal 98-107 [facility] Comment on above: Performed By: #### T ROPI #### [facility] [address] [place] [address]682 Db2 Dba: Ramsey Rodriguez MD Potassium [Moles/Vol] 3.5 mmol/L Low 3.7-5.3 [facility] Comment on above: Performed By: #### T ROPI #### [facility] [address] [place] [address] Db2 Dba: Ramsey Rodriguez MD Sodium [Moles/Vol] 139 mmol/L Normal 136-145 [facility] Comment on above: Performed By: #### T ROPI #### [facility] [address] [place] [address] Db2 Dba: Ramsey Rodriguez MD Calcium [Mass/Vol] 7.9 mg/dL Low 8.6-10.4 [facility] Comment on above: Performed By: #### T ROPI #### [facility] [address] [place] [address] Db2 Dba: Ramsey Rodriguez MD CO2 [Moles/Vol] 26 mmol/L Normal 20-31 [facility] Comment on above: Performed By: #### T ROPI #### [facility] [address] [place] [address] Db2 Dba: Ramsey Rodriguez MD Creatinine [Mass/Vol] 0.5 mg/dL Low 0.70-1.20 [facility] Comment on above: Performed By: #### T ROPI #### [facility] [address] [place] [address] Db2 Dba: Ramsey Rodriguez MD GFR/1.73 sq M.predicted among non-blacks MDRD (S/P/Bld) [Vol rate/Area] mL/min/{1.73_m2} Normal >60 [facility] Comment on above: Result Comment: These [...] renal tubular secretion. Performed By: #### T ALLA #### [address] [address] Db2 Dba: Ramsey Rodriguez MD Glucose [Mass/Vol] 106 mg/dL High 74-99 [facility] Comment on above: Performed By: #### T ALLA #### [address] [address] Db2 Dba: Ramsey Rodriguez MD Urea nitrogen [Mass/Vol] 10 mg/dL Normal 8-23 [facility] Comment on above: Performed By: #### T ALLA #### [facility] [address] [place] [address] Db2 Dba: Ramsey Rodriguez MD CBCon 08-28-2023 Erythrocyte distribution width (RBC) [Ratio] 15.6 % High 11.8-14.4 [facility] Comment on above: Performed By: #### H EPXA, CBC, PTT, PT #### [facility] [address] [place] [address] Db2 Dba: Ramsey Rodriguez MD Hematocrit (Bld) [Volume fraction] 34.1 % Low 40.7-50.3 [facility] Comment on above: Performed By: #### H EPXA, CBC, PTT, PT #### [facility] [address] [place] [address] Db2 Dba: Ramsey Rodriguez MD Hemoglobin (Bld) [Mass/Vol] 10.7 g/dL Low 13.0-17.0 [facility] Comment on above: Performed By: #### H EPXA, CBC, PTT, PT #### [facility] [address] [place] [address] Db2 Dba: Ramsey Rodriguez MD MCH (RBC) [Entitic mass] 30.5 pg Normal 25.2-33.5 [facility] Comment on above: Performed By: #### H EPXA, CBC, PTT, PT #### [address] [address] Db2 Dba: Ramsey Rodriguez MD MCHC (RBC) [Mass/Vol] 31.4 g/dL Normal 28.4-34.8 [facility] Comment on above: Performed By: #### H EPXA, CBC, PTT, PT #### [address] [address] Db2 Dba: Ramsey Rodriguez MD MCV (RBC) [Entitic vol] 97.2 fL Normal 82.6-102.9 [facility] Comment on above: Performed By: #### H EPXA, CBC, PTT, PT #### [address] [address] Db2 Dba: Ramsey Rodriguez MD NRBC Automated 0.0 per 100 WBC Normal 0.0 [facility] Comment on above: Performed By: #### H EPXA, CBC, PTT, PT #### [address] [address] Db2 Dba: Ramesy Rodriguez MD Platelet mean volume (Bld) [Entitic vol] 10.2 fL Normal 8.1-13.5 [facility] Comment on above: Performed By: #### H EPXA, CBC, PTT, PT #### [address] [address] Db2 Dba: Ramsey Rodriguez MD Platelets (Bld) [#/Vol] 166 10*3/uL Normal 138-453 [facility] Comment on above: Performed By: #### H EPXA, CBC, PTT, PT #### [address] [place] [address] Db2 Dba: Ramsey Rodriguez MD RBC (Bld) [#/Vol] 3.51 10*6/uL Low 4.21-5.77 [facility] Comment on above: Performed By: #### H EPXA, CBC, PTT, PT #### [address] [address] Db2 Dba: Ramsey Rodriguez MD WBC (Bld) [#/Vol] 6.5 10*3/uL Normal 3.5-11.3 [facility] Comment on above: Performed By: #### H EPXA, CBC, PTT, PT #### [address] [address] Db2 Dba: Ramsey Rodriguez MD CBC with Diffon 08-28-2023 Abs. Basophil <0.03 Normal 0.00-0.20 [facility] Comment on above: Performed By: #### T ROPI #### [address] [address] Db2 Dba: Ramsey Rodriguez MD Abs.Imm.Granulocyte <0.03 Normal 0.00-0.30 [facility] Comment on above: Performed By: #### T ROPI #### [address] [address] Db2 Dba: Ramsey Rodriguez MD Abs.Neutrophil (Seg) 4.13 k/uL Normal 1.50-8.10 [facility] Comment on above: Performed By: #### T ROPI #### [address] [address] Db2 Dba: Ramsey Rodriguez MD Basophils/100 WBC (Bld) 0 % Normal 0-2 [facility] Comment on above: Performed By: #### T ROPI #### [place] [address] Db2 Dba: Ramsey Rodriguez MD Eosinophils (Bld) [#/Vol] 0.27 10*3/uL Normal 0.00-0.44 [facility] Comment on above: Performed By: #### T ROPI #### [address] [address] Db2 Dba: Ramsey Rodriguez MD Eosinophils/100 WBC (Bld) 5 % High 1-4 [facility] Comment on above: Performed By: #### T ROPI #### [address] [address] Db2 Dba: Ramsey Rodriguez MD Erythrocyte distribution width (RBC) [Ratio] 15.7 % High 11.8-14.4 [facility] Comment on above: Performed By: #### T ROPI #### [place] [address] Db2 Dba: Ramsey Rodriguez MD Hematocrit (Bld) [Volume fraction] 34.6 % Low 40.7-50.3 [facility] Comment on above: Performed By: #### T ROPI #### [place] [address] Db2 Dba: Ramsey Rodriguez MD Hemoglobin (Bld) [Mass/Vol] 10.5 g/dL Low 13.0-17.0 [facility] Comment on above: Performed By: #### T ROPI #### [address] [address] Db2 Dba: Ramsey Rodriguez MD Immature granulocytes/100 WBC (Bld) 0 % Normal 0 [facility] Comment on above: Performed By: #### T ROPI #### [address] [address] Db2 Dba: Ramsey Rodriguez MD Lymphocytes (Bld) [#/Vol] 1.01 10*3/uL Low 1.10-3.70 [facility] Comment on above: Performed By: #### T ROPI #### [place] [address] Db2 Dba: Ramsey Rodriguez MD Lymphocytes/100 WBC (Bld) 17 % Low 24-43 [facility] Comment on above: Performed By: #### T ROPI #### [place] [address] Db2 Dba: Ramsey Rodriguez MD MCH (RBC) [Entitic mass] 30.8 pg Normal 25.2-33.5 [facility] Comment on above: Performed By: #### T ROPI #### [place] [address] Db2 Dba: Ramsey Rodriguez MD MCHC (RBC) [Mass/Vol] 30.3 g/dL Normal 28.4-34.8 [facility] Comment on above: Performed By: #### T ROPI #### [place] [address] Db2 Dba: Ramsey Rodriguez MD MCV (RBC) [Entitic vol] 101.5 fL Normal 82.6-102.9 [facility] Comment on above: Performed By: #### T ROPI #### [place] [address] Db2 Dba: Ramsey Rodriguez MD Monocytes (Bld) [#/Vol] 0.39 10*3/uL Normal 0.10-1.20 [facility] Comment on above: Performed By: #### T ROPI #### [address] [address] Db2 Dba: Ramsey Rodriguez MD Monocytes/100 WBC (Bld) 7 % Normal 3-12 [facility] Comment on above: Performed By: #### T ROPI #### [address] [address] Db2 Dba: Ramsey Rodriguez MD Neutrophil (Seg) 71 % High 36-65 [facility] Comment on above: Performed By: #### T ROPI #### [address] [address] Db2 Dba: Ramsey Rodriguez MD NRBC Automated 0.0 per 100 WBC Normal 0.0 [facility] Comment on above: Performed By: #### T ROPI #### [address] [address] Db2 Dba: Ramsey Rodriguez MD Platelet mean volume (Bld) [Entitic vol] 10.3 fL Normal 8.1-13.5 [facility] Comment on above: Performed By: #### T ROPI #### [address] [address] Db2 Dba: Ramsey Rodriguez MD Platelets (Bld) [#/Vol] 145 10*3/uL Normal 138-453 [facility] Comment on above: Performed By: #### T ROPI #### [address] [address] Db2 Dba: Ramsey Rodriguez MD RBC (Bld) [#/Vol] 3.41 10*6/uL Low 4.21-5.77 [facility] Comment on above: Performed By: #### T ROPI #### [address] [address] Db2 Dba: Ramsey Rodriguez MD RBC morphology finding Nom (Bld) ANISOCYTOSIS PRESENT Normal [facility] Comment on above: Performed By: #### T ROPI #### [address] [address] Db2 Dba: Ramsey Rodriguez MD WBC (Bld) [#/Vol] 5.8 10*3/uL Normal 3.5-11.3 [facility] Comment on above: Performed By: #### T ROPI #### [facility] [address] [place] [address] [id number] Db2 Dba: Ramsey Rodriguez MD FL MODIFIED BARIUM SWALLOW W VIDEOon 08-28-2023 FL MODIFIED BARIUM SWALLOW W VIDEO EXAMINATION: MODIFIED BARIUM SWALLOW WAS PERFORMED IN CONJUNCTION WITH [employer] TECHNIQUE: Under fluoroscopic evaluation cineradiography/videor adiography recordings were performed in conjunction with the speech-language pathologist (NUT TIGHTENER). Various liquid, solid and/or semi-solid barium preparations were used to assess swallowing function. FLUOROSCOPY DOSE AND TYPE: Radiation Exposure Index: DAP [id number], COMPARISON: None HISTORY: ORDERING SYSTEM PROVIDED HISTORY: dysphagia TECHNOLOGIST PROVIDED HISTORY: dysphagia FINDINGS: Thin liquid: Given by teaspoon no laryngeal penetration or aspiration. Given by straw there is trace laryngeal penetration. No aspiration. [place]aro thick liquid: Given by teaspoon no laryngeal [...] Christiano Cohen MD 08/28/23 Final result Normal [facility] Glucose,Whole Bloodon 2023 Glucose [Mass/Vol] 86 mg/dL Normal 75-110 [facility] Glucose [Mass/Vol] 87 mg/dL Normal 75-110 [facility] Glucose [Mass/Vol] 105 mg/dL Normal 75-110 [facility] Heparin Anti-Xaon 08-28-2023 Heparin Anti-Xa 0.22 IU/L Normal [facility] Comment on above: Performed By: #### H EPXA, CBC, PTT, PT #### [facility] [place], [place] [id number] Db2 Dba: Ramsey Rodriguez MD Magnesiumon 08-28-2023 Magnesium [Mass/Vol] 2.4 mg/dL Normal 1.6-2.4 [facility] Comment on above: Performed By: #### H EPXA, CBC, PTT, PT #### [facility] [address] [place] [address] Db2 Dba: Ramsey Rodriguez MD Magnesium [Mass/Vol] 1.7 mg/dL Normal 1.6-2.4 [facility] Comment on above: Performed By: #### T ROPI #### [facility] [address] [place] [address] [id number] Db2 Dba: Ramsey Rodriguez MD PTon 08-28-2023 INR Coag (PPP) [Relative time] 1.0 {INR} Normal [facility] Comment on above: Result Comment: Therapeutic Range: Moderate Anticoagulant Intensity: INR = 2.0-3.0 High Anticoagulant Intensity: INR = 2.5-3.5 Performed By: #### H EPXA, CBC, PTT, PT #### [facility] [address] [place] [address] [id number] Db2 Dba: Ramsey Rodriguez MD PT Coag (PPP) [Time] 13.5 s Normal 11.7-14.9 [facility] Comment on above: Performed By: #### H EPXA, CBC, PTT, PT #### [facility] [address] [place] [id number] Db2 Dba: Ramsey oRdriguez MD Phosphorus, Inorg.on 024 Phosphorus, Inorg. 2.2 mg/dL Low 2.5-4.5 [facility] Comment on above: Performed By: #### H EPXA, CBC, PTT, PT #### [facility] [address] [place] [address] 87314 Db2 Dba: Ramsey Rodriguez MD Phosphorus, Inorg. 2.4 mg/dL Low 2.5-4.5 [facility] Comment on above: Performed By: #### T ROPI #### [address] [id number] Db2 Dba: Ramsey Rodriguez MD Troponinon 08-28-2023 Troponin, High Sens 142 ng/L Critically high 0-22 [facility] Comment on above: Result Comment: High Sensitivity Troponin values cannot be compared with other Troponin methodologies. Previous Alert Value Reported Performed By: #### H EPXA, CBC, PTT, PT #### [facility] [address] [place] [address] [id number] Db2 Dba: Ramsey Rodriguez MD Troponin, High Sens 138 ng/L Critically high 0-22 [facility] Comment on above: Result Comment: High Sensitivity Troponin values cannot be compared with other Troponin methodologies. Performed By: #### B MP, TROPI #### [address] [id number] Db2 Dba: Ramsey Rodriguez MD XR CHEST PORTABLEon 08-28-19 [...] Rafat Dumont MD 08/28/23 Final result Normal [facility] Basic Metabolic Profon 08-26 Anion gap [Moles/Vol] 7 mmol/L Low 9-16 [facility] Comment on above: Performed By: #### H EPXA, CBC, PTT, PT #### [facility] [address] [place] [address] [id number] Db2 Dba: Ramsey Rodriguez MD Calcium [Mass/Vol] 8.0 mg/dL Low 8.6-10.4 [facility] Comment on above: Performed By: #### H EPXA, CBC, PTT, PT #### [facility] [address] [place] [address] 79943 Db2 Dba: Ramsey Rodriguez MD Chloride [Moles/Vol] 107 mmol/L Normal 98-107 [facility] Comment on above: Performed By: #### H EPXA, CBC, PTT, PT #### [facility] [address] [place] [address] 25547 Db2 Dba: Ramsey Rodriguez MD CO2 [Moles/Vol] 26 mmol/L Normal 20-31 [facility] Comment on above: Performed By: #### H EPXA, CBC, PTT, PT #### [address] [address]7 Db2 Dba: Ramsey Rodriguez MD Creatinine [Mass/Vol] 0.6 mg/dL Low 0.70-1.20 [facility] Comment on above: Performed By: #### H EPXA, CBC, PTT, PT #### [facility] [address] [place] [address] 65012 Db2 Dba: Ramsey Rodriguez MD GFR/1.73 sq M.predicted among non-blacks MDRD (S/P/Bld) [Vol rate/Area] mL/min/{1.73_m2} Normal >60 [facility] Comment on above: Result Comment: These [...] #### H EPXA, CBC, PTT, PT #### [facility] [address] [place] [address] 06677 Db2 Dba: Ramsey Rodriguez MD Glucose [Mass/Vol] 104 mg/dL High 74-99 [facility] Comment on above: Performed By: #### H EPXA, CBC, PTT, PT #### [facility] [address] [place] [address] 13404 Db2 Dba: Ramsey Rodriguez MD Potassium [Moles/Vol] 3.6 mmol/L Low 3.7-5.3 [facility] Comment on above: Performed By: #### H EPXA, CBC, PTT, PT #### [facility] [address] [place] [address] 92223 Db2 Dba: Ramsey Rodriguez MD Sodium [Moles/Vol] 140 mmol/L Normal 136-145 [facility] Comment on above: Performed By: #### H EPXA, CBC, PTT, PT #### [facility] [address] [place] [address] 15906 Db2 Dba: Ramsey Rodriguez MD Urea nitrogen [Mass/Vol] 14 mg/dL Normal 8-23 [facility] Comment on above: Performed By: #### H EPXA, CBC, PTT, PT #### [facility] [address] [place] [address] 34133 Db2 Dba: Ramsey Rodriguez MD CBC with Diffon 08-27-2023 Abs. Basophil <0.03 Normal 0.00-0.20 [facility] Comment on above: Performed By: #### H EPXA, CBC, PTT, PT #### [facility] [address] [place] [address] 92196 Db2 Dba: Ramsey Rodriguez MD Abs.Imm.Granulocyte <0.03 Normal 0.00-0.30 [facility] Comment on above: Performed By: #### H EPXA, CBC, PTT, PT #### [facility] [address] [place] [address] 61099 Db2 Dba: Ramsey Rodriguez MD Abs.Neutrophil (Seg) 3.93 k/uL Normal 1.50-8.10 [facility] Comment on above: Performed By: #### H EPXA, CBC, PTT, PT #### [facility] [address] [place] [address] 64286 Db2 Dba: Ramsey Rodriguez MD Basophils/100 WBC (Bld) 0 % Normal 0-2 [facility] Comment on above: Performed By: #### H EPXA, CBC, PTT, PT #### [facility] [address] [place] [address] 84340 Db2 Dba: Ramsey Rodriguez MD Eosinophils (Bld) [#/Vol] 0.25 10*3/uL Normal 0.00-0.44 [facility] Comment on above: Performed By: #### H EPXA, CBC, PTT, PT #### [facility] [address] [place] [address] 65186 Db2 Dba: Ramsey Rodriguez MD Eosinophils/100 WBC (Bld) 5 % High 1-4 [facility] Comment on above: Performed By: #### H EPXA, CBC, PTT, PT #### [facility] [address] [place] [address] 50080 Db2 Dba: Ramsey Rodriguez MD Erythrocyte distribution width (RBC) [Ratio] 15.8 % High 11.8-14.4 [facility] Comment on above: Performed By: #### H EPXA, CBC, PTT, PT #### [facility] [address] [place] [address] 06670 Db2 Dba: Ramsey Rodriguez MD Hematocrit (Bld) [Volume fraction] 33.2 % Low 40.7-50.3 [facility] Comment on above: Performed By: #### H EPXA, CBC, PTT, PT #### [facility] [address] [place] [address] 79113 Db2 Dba: Ramsey Rodriguez MD Hemoglobin (Bld) [Mass/Vol] 10.3 g/dL Low 13.0-17.0 [facility] Comment on above: Performed By: #### H EPXA, CBC, PTT, PT #### [facility] [address] [place] [address] 16922 Db2 Dba: Ramsey Rodriguez MD Immature granulocytes/100 WBC (Bld) 0 % Normal 0 [facility] Comment on above: Performed By: #### H EPXA, CBC, PTT, PT #### [facility] [address] [place] [address] 43983 Db2 Dba: Ramsey Rodriguez MD Lymphocytes (Bld) [#/Vol] 1.01 10*3/uL Low 1.10-3.70 [facility] Comment on above: Performed By: #### H EPXA, CBC, PTT, PT #### [address] [address]251 Db2 Dba: Ramsey Rodriguez MD Lymphocytes/100 WBC (Bld) 18 % Low 24-43 [facility] Comment on above: Performed By: #### H EPXA, CBC, PTT, PT #### [facility] [address] [place] [address] 74173 Db2 Dba: Ramsey Rodriguez MD MCH (RBC) [Entitic mass] 30.6 pg Normal 25.2-33.5 [facility] Comment on above: Performed By: #### H EPXA, CBC, PTT, PT #### [facility] [address] [place] [address] 69689 Db2 Dba: Ramsey Rodriguez MD MCHC (RBC) [Mass/Vol] 31.0 g/dL Normal 28.4-34.8 [facility] Comment on above: Performed By: #### H EPXA, CBC, PTT, PT #### [facility] [address] [place] [address] 43973 Db2 Dba: Ramsey Rodriguez MD MCV (RBC) [Entitic vol] 98.5 fL Normal 82.6-102.9 [facility] Comment on above: Performed By: #### H EPXA, CBC, PTT, PT #### [address] [address]108 Db2 Dba: Ramsey Rodriguez MD Monocytes (Bld) [#/Vol] 0.33 10*3/uL Normal 0.10-1.20 [facility] Comment on above: Performed By: #### H EPXA, CBC, PTT, PT #### [address] [address]188 Db2 Dba: Ramsey Rodriguez MD Monocytes/100 WBC (Bld) 6 % Normal 3-12 [facility] Comment on above: Performed By: #### H EPXA, CBC, PTT, PT #### [address] [address]104 Db2 Dba: Ramsey Rodriguez MD Neutrophil (Seg) 71 % High 36-65 [facility] Comment on above: Performed By: #### H EPXA, CBC, PTT, PT #### [address] [address]33 Db2 Dba: Ramsey Rodriguez MD NRBC Automated 0.0 per 100 WBC Normal 0.0 [facility] Comment on above: Performed By: #### H EPXA, CBC, PTT, PT #### [address] [address]2057 Db2 Dba: Ramsey Rodriguez MD Platelet mean volume (Bld) [Entitic vol] 10.2 fL Normal 8.1-13.5 [facility] Comment on above: Performed By: #### H EPXA, CBC, PTT, PT #### [address] [address]30 Db2 Dba: Ramsey Rodriguez MD Platelets (Bld) [#/Vol] 136 10*3/uL Low 138-453 [facility] Comment on above: Performed By: #### H EPXA, CBC, PTT, PT #### [facility] [address] [place] [address] 70027 Db2 Dba: Ramsey Rodriguez MD RBC (Bld) [#/Vol] 3.37 10*6/uL Low 4.21-5.77 [facility] Comment on above: Performed By: #### H EPXA, CBC, PTT, PT #### [facility] [address] [place] [address] 94939 Db2 Dba: Ramsey Rodriguez MD RBC morphology finding Nom (Bld) ANISOCYTOSIS PRESENT Normal [facility] Comment on above: Performed By: #### H EPXA, CBC, PTT, PT #### [facility] [address] [place] [address] 48469 Db2 Dba: Ramsey Rodriguez MD WBC (Bld) [#/Vol] 5.6 10*3/uL Normal 3.5-11.3 [facility] Comment on above: Performed By: #### H EPXA, CBC, PTT, PT #### [facility] [address] [place] [address] 00693 Db2 Dba: Ramsey Rodriguez MD Glucose,Whole Bloodon 2023 Glucose [Mass/Vol] 103 mg/dL Normal 75-110 [facility] Glucose [Mass/Vol] 99 mg/dL Normal 75-110 [facility] Glucose [Mass/Vol] 95 mg/dL Normal 75-110 [facility] Magnesiumon 08-27-2023 Magnesium [Mass/Vol] 2.0 mg/dL Normal 1.6-2.4 [facility] Comment on above: Performed By: #### H EPXA, CBC, PTT, PT #### [facility] [address] [place] [address] 93933 Db2 Dba: Ramsey Rodriguez MD Phosphorus, Inorg.on 024 Phosphorus, Inorg. 2.4 mg/dL Low 2.5-4.5 [facility] Comment on above: Performed By: #### H EPXA, CBC, PTT, PT #### [address] [address]175 Db2 Dba: Ramsey Rodriguez MD Urinalysis, Routineon 2023 Bilirubin, SemiQt,Ur Negative Normal NEG [facility] Comment on above: Performed By: #### B MP, CDP, HEPXA #### [address] 66686 Db2 Dba: Ramsey Rodriguez MD Blood, Urine Negative Normal NEG [facility] Comment on above: Performed By: #### B MP, CDP, HEPXA #### [facility] [address] [place] [address] 45553 Db2 Dba: Ramsey Rodriguez MD Clarity (U) Clear Normal CLEAR [facility] Comment on above: Performed By: #### B MP, CDP, HEPXA #### [facility] [address] [place] [address] 31024 Db2 Dba: Ramsey Rodriguez MD Color (U) Yellow Normal YEL [facility] Comment on above: Performed By: #### B MP, CDP, HEPXA #### [address] [address]97 Db2 Dba: Ramsey Rodriguez MD Comment Microscopic exam not performed based on chemical results unless requested in Normal [facility] Comment on above: Result Comment: orig inal order. Performed By: #### B MP, CDP, HEPXA #### [facility] [address] [place] [address] 39766 Db2 Dba: Ramsey Rodriguez MD Glucose Ql (U) Negative Normal NEG [facility] Comment on above: Performed By: #### B MP, CDP, HEPXA #### [facility] [address] [place] [address] 61415 Db2 Dba: Ramsey Rodriguez MD Ketones Ql (U) Negative Normal NEG [facility] Comment on above: Performed By: #### B MP, CDP, HEPXA #### [facility] [address] [place] [address] 84969 Db2 Dba: Ramsey Rodriguez MD Leukocyte esterase Test strip Ql (U) Negative Normal NEG [facility] Comment on above: Performed By: #### B MP, CDP, HEPXA #### [address] [address]178 Db2 Dba: Ramsey Rodriguez MD Nitrite,Ur Negative Normal NEG [facility] Comment on above: Performed By: #### B MP, CDP, HEPXA #### [address] [address]77 Db2 Dba: Ramsey Rodriguez MD PH,Ur 5.5 Normal 5.0-8.0 [facility] Comment on above: Performed By: #### B MP, CDP, HEPXA #### [facility] [address] [place] [address] 24087 Db2 Dba: Ramsey Rodriguez MD Protein Ql (U) Negative Normal NEG [facility] Comment on above: Performed By: #### B MP, CDP, HEPXA #### [facility] [address] [place] [address] 93814 Db2 Dba: Ramsey Rodriguez MD Spec. [place],Ur 1.008 Normal 1.005-1.030 [facility] Comment on above: Performed By: #### B MP, CDP, HEPXA #### [facility] [address] [place] [address] 12499 Db2 Dba: Ramsey Rodriguez MD Urobilinogen,Ur Normal Normal 0.0-1.0 [facility] Comment on above: Performed By: #### B MP, CDP, HEPXA #### [facility] [address] [place] [address] Db2 Dba: Ramsey Rodriguez MD XR CHEST PORTABLEon 08-27-19 [...] Alex Martinez MD 08/27/23 Final result Normal [facility] Arterial Bld Gas,POCon 08-25 Eliazar Test Positive Normal [facility] FIO2 60.0 Normal [facility] HCO3 (Bld) [Moles/Vol] 26.6 mmol/L Normal 21.0-28.0 [facility] O2 Device BIPAP Normal [facility] Oxygen saturation in Blood 99.1 % High 94.0-98.0 [facility] pCO2, Arterial 40.5 mm Hg Normal 35.0-48.0 [facility] pH, Arterial 7.426 Normal 7.350-7.450 [facility] pO2, Arterial 135.5 mm Hg High 83.0-108.0 [facility] Positive Base Excess (calc) 2.1 mmol/L Normal 0.0-3.0 [facility] Site Drawn Right Radial Artery Normal [facility] Basic Metabolic Profon 08-25 Anion gap [Moles/Vol] 5 mmol/L Low 9-16 [facility] Comment on above: Performed By: #### B MP, TROPI #### [address] [address] Db2 Dba: Ramsey Rodriguez MD Calcium [Mass/Vol] 8.2 mg/dL Low 8.6-10.4 [facility] Comment on above: Performed By: #### B EDWARD, TROPI #### [address] [address] Db2 Dba: Ramsey Rodriguez MD Chloride [Moles/Vol] 107 mmol/L Normal 98-107 [facility] Comment on above: Performed By: #### B EDWARD, TROPI #### [facility] [address] [place] [address] 13787 Db2 Dba: Ramsey Rodriguez MD CO2 [Moles/Vol] 26 mmol/L Normal 20-31 [facility] Comment on above: Performed By: #### B EDWARD, TROPI #### [facility] [address] [place] [address] 45669 Db2 Dba: Ramsey Rodriguez MD Creatinine [Mass/Vol] 0.6 mg/dL Low 0.70-1.20 [facility] Comment on above: Performed By: #### B EDWARD, TROPI #### [facility] [address] [place] [address] 43667 Db2 Dba: Ramsey Rodriguez MD GFR/1.73 sq M.predicted among non-blacks MDRD (S/P/Bld) [Vol rate/Area] mL/min/{1.73_m2} Normal >60 [facility] Comment on above: Result Comment: These [...] #### B EDWARD, TROPI #### [facility] [address] [place] [address] Db2 Dba: Ramsey Rodriguez MD Glucose [Mass/Vol] 92 mg/dL Normal 74-99 [facility] Comment on above: Performed By: #### B EDWARD, TROPI #### [address] [address]49 Db2 Dba: Ramsey Rodriguez MD Potassium [Moles/Vol] 4.2 mmol/L Normal 3.7-5.3 [facility] Comment on above: Performed By: #### B EDWARD, TROPI #### [facility] [address] [place] [address] 03576 Db2 Dba: Ramsey Rodriguez MD Sodium [Moles/Vol] 138 mmol/L Normal 136-145 [facility] Comment on above: Performed By: #### B EDWARD TROPI #### [facility] [address] [place] [address] 35402 Db2 Dba: Ramsey Rodriguez MD Urea nitrogen [Mass/Vol] 18 mg/dL Normal 8-23 [facility] Comment on above: Performed By: #### B EDWARD TROPI #### [facility] [address] [place] [address] 48166 Db2 Dba: Ramsey Rodriguez MD CBC with Diffon 08-26-2023 Abs. Basophil <0.03 Normal 0.00-0.20 [facility] Comment on above: Performed By: #### B EDWARD, TROPI #### [facility] [address] [place] [address] 06149 Db2 Dba: Ramsey Rodriguez MD Abs.Imm.Granulocyte <0.03 Normal 0.00-0.30 [facility] Comment on above: Performed By: #### B EDWARD, TROPI #### [facility] [address] [place] [address] 90016 Db2 Dba: Ramsey Rodriguez MD Abs.Neutrophil (Seg) 4.44 k/uL Normal 1.50-8.10 [facility] Comment on above: Performed By: #### B DEWARD TROPI #### [facility] [address] [place] [address] 63121 Db2 Dba: Ramsey Rodriguez MD Basophils/100 WBC (Bld) 0 % Normal 0-2 [facility] Comment on above: Performed By: #### B EDWARD, TROPI #### [address] [address]752 Db2 Dba: Ramsey Rodriguez MD Eosinophils (Bld) [#/Vol] 0.17 10*3/uL Normal 0.00-0.44 [facility] Comment on above: Performed By: #### B EDWARD, TROPI #### [address] [address]54 Db2 Dba: Ramsey Rodriguez MD Eosinophils/100 WBC (Bld) 3 % Normal 1-4 [facility] Comment on above: Performed By: #### B EDWARD TROPI #### [address] [address]56 Db2 Dba: Ramsey Rodriguez MD Erythrocyte distribution width (RBC) [Ratio] 15.7 % High 11.8-14.4 [facility] Comment on above: Performed By: #### B EDWARD, TROPI #### [address] [address]24 Db2 Dba: Ramsey Rodriguez MD Hematocrit (Bld) [Volume fraction] 34.0 % Low 40.7-50.3 [facility] Comment on above: Performed By: #### B EDWARD, TROPI #### [facility] [address] [place] [address] 53936 Db2 Dba: Ramsey Rodriguez MD Hemoglobin (Bld) [Mass/Vol] 10.8 g/dL Low 13.0-17.0 [facility] Comment on above: Performed By: #### B MP, TROPI #### [address] [address]353 Db2 Dba: Ramsey Rodriguez MD Immature granulocytes/100 WBC (Bld) 0 % Normal 0 [facility] Comment on above: Performed By: #### B MP, TROPI #### [address] 89917 Db2 Dba: Ramsey Rodriguez MD Lymphocytes (Bld) [#/Vol] 1.18 10*3/uL Normal 1.10-3.70 [facility] Comment on above: Performed By: #### B EDWARD, TROPI #### [facility] [address] [place] [address] 44042 Db2 Dba: Ramsey Rodriguez MD Lymphocytes/100 WBC (Bld) 19 % Low 24-43 [facility] Comment on above: Performed By: #### B MP, TROPI #### [address] [address]166 Db2 Dba: Ramsey Rodriguez MD MCH (RBC) [Entitic mass] 30.7 pg Normal 25.2-33.5 [facility] Comment on above: Performed By: #### B EDWARD, TROPI #### [facility] [address] [place] [address] 26199 Db2 Dba: Ramsey Rodriguze MD MCHC (RBC) [Mass/Vol] 31.8 g/dL Normal 28.4-34.8 [facility] Comment on above: Performed By: #### B MP, TROPI #### [facility] [address] [place] [address] 49898 Db2 Dba: Ramsey Rodriguez MD MCV (RBC) [Entitic vol] 96.6 fL Normal 82.6-102.9 [facility] Comment on above: Performed By: #### B MP, TROPI #### [address] [address]54 Db2 Dba: Ramsey Rodriguez MD Monocytes (Bld) [#/Vol] 0.41 10*3/uL Normal 0.10-1.20 [facility] Comment on above: Performed By: #### B MP, TROPI #### [address] [address]557 Db2 Dba: Ramsey Rodriguez MD Monocytes/100 WBC (Bld) 7 % Normal 3-12 [facility] Comment on above: Performed By: #### B MP, TROPI #### [address] [address]395 Db2 Dba: Ramsey Rodriguez MD Neutrophil (Seg) 71 % High 36-65 [facility] Comment on above: Performed By: #### B MP, TROPI #### [address] [address] Db2 Dba: Ramsey Rodriguez MD NRBC Automated 0.0 per 100 WBC Normal 0.0 [facility] Comment on above: Performed By: #### B MP, TROPI #### [address] [address] Db2 Dba: Ramsey Rodriguez MD Platelet mean volume (Bld) [Entitic vol] 9.9 fL Normal 8.1-13.5 [facility] Comment on above: Performed By: #### B MP, TROPI #### [address] [address]20 Db2 Dba: Ramsey Rodriguez MD Platelets (Bld) [#/Vol] 143 10*3/uL Normal 138-453 [facility] Comment on above: Performed By: #### B MP, TROPI #### [facility] [address] [place] [address] 32579 Db2 Dba: Ramsey Rodriguez MD RBC (Bld) [#/Vol] 3.52 10*6/uL Low 4.21-5.77 [facility] Comment on above: Performed By: #### B EDWARD, TROPI #### [address] [address]73 Db2 Dba: aRmsey Rodriguez MD RBC morphology finding Nom (Bld) ANISOCYTOSIS PRESENT Normal [facility] Comment on above: Performed By: #### B EDWARD, TROPI #### [address] [address]97 Db2 Dba: Ramsey Rodriguez MD WBC (Bld) [#/Vol] 6.2 10*3/uL Normal 3.5-11.3 [facility] Comment on above: Performed By: #### B EDWARD, TROPI #### [address] [address] Db2 Dba: Ramsey Rodriguez MD Gl Hemostasis TEG w/Lysison 08-26-2023 Fibrinogen, Func TEG 5.4 mm Low 15.0-32.0 [facility] Comment on above: Performed By: #### H EPXA, CBC, PTT, PT #### [address] [address] Db2 Dba: Ramsey Rodriguez MD LY30 (Lysis) TEG 0.0 % Normal 0.0-2.6 [facility] Comment on above: Performed By: #### H EPXA, CBC, PTT, PT #### [address] [address]21 Db2 Dba: Ramsey Rodriguez MD MA Rapid TEG <40.0 Low 52.0-70 [facility] Comment on above: Performed By: #### H EPXA, CBC, PTT, PT #### [address] [address] Db2 Dba: Ramsey Rodriguez MD R(Reaction Time) TEG >17.0 High 4.6-9.1 [facility] Comment on above: Performed By: #### H EPXA, CBC, PTT, PT #### [address] [id number] Db2 Dba: Ramsey Rodriguez MD Glucose,Whole Bloodon 2023 Glucose [Mass/Vol] 99 mg/dL Normal 75-110 [facility] Glucose [Mass/Vol] 86 mg/dL Normal 75-110 [facility] Glucose [Mass/Vol] 101 mg/dL Normal 75-110 [facility] Glucose [Mass/Vol] 86 mg/dL Normal 75-110 [facility] Magnesiumon 08-26-2023 Magnesium [Mass/Vol] 1.7 mg/dL Normal 1.6-2.4 [facility] Comment on above: Performed By: #### T ROPI #### [place] [id number] Db2 Dba: Ramsey Rodriguez MD PTon 08-26-2023 INR Coag (PPP) [Relative time] 1.1 {INR} Normal [facility] Comment on above: Result Comment: Therapeutic Range: Moderate Anticoagulant Intensity: INR = 2.0-3.0 High Anticoagulant Intensity: INR = 2.5-3.5 Performed By: #### B KAITLYNN LEON #### [place] [id number] Db2 Dba: Ramsey Rodriguez MD PT Coag (PPP) [Time] 13.7 s Normal 11.7-14.9 [facility] Comment on above: Performed By: #### B KAITLYNN LEON #### [address] [address] Db2 Dba: Ramsey Rodriguez MD XR CHEST PORTABLEon 08-26-19 [...] Jordy Michel MD 08/26/23 Final result Normal [facility] Basic Metab w/rfx MGon 08-24 Anion gap [Moles/Vol] 7 mmol/L Low 9-16 [facility] Comment on above: Performed By: #### T ROPI #### [address] [address] Db2 Dba: Ramsey Rodriguez MD Calcium [Mass/Vol] 7.8 mg/dL Low 8.6-10.4 [facility] Comment on above: Performed By: #### T ROPI #### [address] [address] Db2 Dba: Ramsey Rodriguez MD Chloride [Moles/Vol] 109 mmol/L High 98-107 [facility] Comment on above: Performed By: #### T ROPI #### [address] [address] Db2 Dba: Ramsey Rodriguez MD CO2 [Moles/Vol] 21 mmol/L Normal 20-31 [facility] Comment on above: Performed By: #### T ROPI #### [facility] [address] [place] [address] Db2 Dba: Ramsey Rodriguez MD Creatinine [Mass/Vol] 0.5 mg/dL Low 0.70-1.20 [facility] Comment on above: Performed By: #### T ROPI #### [address] [id number] Db2 Dba: Ramsey Rodriguez MD GFR/1.73 sq M.predicted among non-blacks MDRD (S/P/Bld) [Vol rate/Area] mL/min/{1.73_m2} Normal >60 [facility] Comment on above: Result Comment: These [...] secretion. Performed By: #### T ROPI #### [address] [address] Db2 Dba: Ramsey Rodriguez MD Glucose [Mass/Vol] 79 mg/dL Normal 74-99 [facility] Comment on above: Performed By: #### T ROPI #### [facility] [address] [place] [address] Db2 Dba: Ramsey Rodriguez MD Potassium [Moles/Vol] 4.5 mmol/L Normal 3.7-5.3 [facility] Comment on above: Performed By: #### T ROPI #### [facility] [address] [place] [address] Db2 Dba: Ramsey Rodriguez MD Sodium [Moles/Vol] 137 mmol/L Normal 136-145 [facility] Comment on above: Performed By: #### T ROPI #### [facility] [address] [place] [address] Db2 Dba: Ramsey Rodriguez MD Urea nitrogen [Mass/Vol] 13 mg/dL Normal 8-23 [facility] Comment on above: Performed By: #### T ROPI #### [facility] [address] [place] [address] Db2 Dba: Ramsey Rodriguez MD CBC with Diffon 08-25-2023 Abs. Basophil <0.03 Normal 0.00-0.20 [facility] Comment on above: Performed By: #### T ROPI #### [address] [address] Db2 Dba: Ramsey Rodriguez MD Abs.Imm.Granulocyte <0.03 Normal 0.00-0.30 [facility] Comment on above: Performed By: #### T ROPI #### [place] [address] Db2 Dba: Ramsey Rodriguez MD Abs.Neutrophil (Seg) 2.56 k/uL Normal 1.50-8.10 [facility] Comment on above: Performed By: #### T ROPI #### [place] [address] Db2 Dba: Ramsey Rodriguez MD Basophils/100 WBC (Bld) 1 % Normal 0-2 [facility] Comment on above: Performed By: #### T ROPI #### [place] [address] Db2 Dba: Ramsey Rodriguez MD Eosinophils (Bld) [#/Vol] 0.18 10*3/uL Normal 0.00-0.44 [facility] Comment on above: Performed By: #### T ROPI #### [place] [address] Db2 Dba: Ramsey Rodriguez MD Eosinophils/100 WBC (Bld) 4 % Normal 1-4 [facility] Comment on above: Performed By: #### T ROPI #### [place] [address] Db2 Dba: Ramsey Rodriguez MD Erythrocyte distribution width (RBC) [Ratio] 15.8 % High 11.8-14.4 [facility] Comment on above: Performed By: #### T ROPI #### [address] [address] Db2 Dba: Ramsey Rodriguez MD Hematocrit (Bld) [Volume fraction] 33.3 % Low 40.7-50.3 [facility] Comment on above: Performed By: #### T ROPI #### [address] [address] Db2 Dba: Ramsey Rodriguez MD Hemoglobin (Bld) [Mass/Vol] 10.4 g/dL Low 13.0-17.0 [facility] Comment on above: Performed By: #### T ROPI #### [address] [address] Db2 Dba: Ramsey Rodriguez MD Immature granulocytes/100 WBC (Bld) 0 % Normal 0 [facility] Comment on above: Performed By: #### T ROPI #### [address] [address] Db2 Dba: Ramsey Rodriguez MD Lymphocytes (Bld) [#/Vol] 1.22 10*3/uL Normal 1.10-3.70 [facility] Comment on above: Performed By: #### T ROPI #### [address] [address] Db2 Dba: Ramsey Rodriguez MD Lymphocytes/100 WBC (Bld) 28 % Normal 24-43 [facility] Comment on above: Performed By: #### T ROPI #### [address] [address] Db2 Dba: Ramsey Rodriguez MD MCH (RBC) [Entitic mass] 31.0 pg Normal 25.2-33.5 [facility] Comment on above: Performed By: #### T ROPI #### [address] [address] Db2 Dba: Ramsey Rodriguez MD MCHC (RBC) [Mass/Vol] 31.2 g/dL Normal 28.4-34.8 [facility] Comment on above: Performed By: #### T ROPI #### [address] [address] Db2 Dba: Ramsey Rodriguez MD MCV (RBC) [Entitic vol] 99.4 fL Normal 82.6-102.9 [facility] Comment on above: Performed By: #### T ROPI #### [address] [address] Db2 Dba: Ramsey Rodriguez MD Monocytes (Bld) [#/Vol] 0.32 10*3/uL Normal 0.10-1.20 [facility] Comment on above: Performed By: #### T ROPI #### [address] [address] Db2 Dba: Ramsey Rodriguez MD Monocytes/100 WBC (Bld) 7 % Normal 3-12 [facility] Comment on above: Performed By: #### T ROPI #### [address] [address] Db2 Dba: Ramsey Rodriguez MD Neutrophil (Seg) 60 % Normal 36-65 [facility] Comment on above: Performed By: #### T ROPI #### [address] [address] Db2 Dba: Ramsey Rodriguez MD NRBC Automated 0.0 per 100 WBC Normal 0.0 [facility] Comment on above: Performed By: #### T ROPI #### [address] [address] Db2 Dba: Ramsey Rodriguez MD Platelet mean volume (Bld) [Entitic vol] 10.0 fL Normal 8.1-13.5 [facility] Comment on above: Performed By: #### T ROPI #### [address] [place] [address] Db2 Dba: Ramsey Rodriguez MD Platelets (Bld) [#/Vol] 143 10*3/uL Normal 138-453 [facility] Comment on above: Performed By: #### T ROPI #### [address] [address] Db2 Dba: Ramsey Rodriguez MD RBC (Bld) [#/Vol] 3.35 10*6/uL Low 4.21-5.77 [facility] Comment on above: Performed By: #### T ROPI #### [address] [address] Db2 Dba: Ramsey Rodriguez MD RBC morphology finding Nom (Bld) ANISOCYTOSIS PRESENT Normal [facility] Comment on above: Performed By: #### T ROPI #### [address] [address] Db2 Dba: Ramsey Rodriguez MD WBC (Bld) [#/Vol] 4.3 10*3/uL Normal 3.5-11.3 [facility] Comment on above: Performed By: #### T ROPI #### [address] [address] Db2 Dba: Ramsey Rodriguez MD Glucose,Whole Bloodon 2023 Glucose [Mass/Vol] 88 mg/dL Normal 75-110 [facility] Glucose [Mass/Vol] 102 mg/dL Normal 75-110 [facility] Glucose [Mass/Vol] 104 mg/dL Normal 75-110 [facility] Glucose [Mass/Vol] 80 mg/dL Normal 75-110 [facility] XR ABDOMEN (KUB) (SINGLE AP VIEW)on [...] Gerardo Stafford MD 08/25/23 Final result Normal [facility] Basic Metab w/rfx MGon 08-23 Anion gap [Moles/Vol] 6 mmol/L Low 9-16 [facility] Comment on above: Performed By: #### B FABIANO LEON, HEPXA #### [address] [address] Db2 Dba: Ramsey Rodriguez MD Chloride [Moles/Vol] 108 mmol/L High 98-107 [facility] Comment on above: Performed By: #### B FABIANO LEON, HEPXA #### [facility] [address] [place] [address] Db2 Dba: Ramsey Rodriguez MD Potassium [Moles/Vol] 4.2 mmol/L Normal 3.7-5.3 [facility] Comment on above: Performed By: #### B FABIANO LEON, HEPXA #### [facility] [address] [place] [address] Db2 Dba: Ramsey Rodriguez MD Sodium [Moles/Vol] 139 mmol/L Normal 136-145 [facility] Comment on above: Performed By: #### B EDWARD CDP, HEPXA #### [facility] [address] [place] [address] Db2 Dba: Ramsey Rodriguez MD Calcium [Mass/Vol] 8.1 mg/dL Low 8.6-10.4 [facility] Comment on above: Performed By: #### B MP CDP, HEPXA #### [facility] [address] [place] [address] Db2 Dba: Ramsey Rodriguez MD CO2 [Moles/Vol] 25 mmol/L Normal 20-31 [facility] Comment on above: Performed By: #### B MP, CDP, HEPXA #### [facility] [address] [place] [address] Db2 Dba: Ramsey Rodriguez MD Creatinine [Mass/Vol] 0.5 mg/dL Low 0.70-1.20 [facility] Comment on above: Performed By: #### B EDWARD CDP, HEPXA #### [facility] [address] [place] [address] Db2 Dba: Ramsey Rodriguez MD GFR/1.73 sq M.predicted among non-blacks MDRD (S/P/Bld) [Vol rate/Area] mL/min/{1.73_m2} Normal >60 [facility] Comment on above: Result Comment: These [...] By: #### B MP, CDP, HEPXA #### [facility] [address] [place] [address] Db2 Dba: Ramsey Rodriguez MD Glucose [Mass/Vol] 105 mg/dL High 74-99 [facility] Comment on above: Performed By: #### B MP, CDP, HEPXA #### [facility] [address] [place] [address] Db2 Dba: Ramsey Rodriguez MD Urea nitrogen [Mass/Vol] 12 mg/dL Normal 8-23 [facility] Comment on above: Performed By: #### B MP, CDP, HEPXA #### [address] [address] Db2 Dba: Ramsey Rodriguez MD CBC with Diffon 08-24-2023 Abs. Basophil <0.03 Normal 0.00-0.20 [facility] Comment on above: Performed By: #### B MP, CDP, HEPXA #### [address] [address] Db2 Dba: Ramsey Rodriguez MD Abs.Imm.Granulocyte <0.03 Normal 0.00-0.30 [facility] Comment on above: Performed By: #### B MP, CDP, HEPXA #### [address] [address] Db2 Dba: Ramsey Rodriguez MD Abs.Neutrophil (Seg) 3.28 k/uL Normal 1.50-8.10 [facility] Comment on above: Performed By: #### B MP, CDP, HEPXA #### [address] [address] Db2 Dba: Ramsey Rodriguez MD Basophils/100 WBC (Bld) 0 % Normal 0-2 [facility] Comment on above: Performed By: #### B MP, CDP, HEPXA #### [address] [address] Db2 Dba: Ramsey Rodriguez MD Eosinophils (Bld) [#/Vol] 0.29 10*3/uL Normal 0.00-0.44 [facility] Comment on above: Performed By: #### B MP, CDP, HEPXA #### [address] [address] Db2 Dba: Ramsey Rodriguez MD Eosinophils/100 WBC (Bld) 6 % High 1-4 [facility] Comment on above: Performed By: #### B MP, CDP, HEPXA #### [facility] [address] [place] [address] Db2 Dba: Ramsey Rodriguez MD Erythrocyte distribution width (RBC) [Ratio] 15.7 % High 11.8-14.4 [facility] Comment on above: Performed By: #### B MP, CDP, HEPXA #### [facility] [address] [place] [address] Db2 Dba: Ramsey Rodriguez MD Hematocrit (Bld) [Volume fraction] 33.4 % Low 40.7-50.3 [facility] Comment on above: Performed By: #### B MP, CDP, HEPXA #### [facility] [address] [place] [address] Db2 Dba: Ramsey Rodriguez MD Hemoglobin (Bld) [Mass/Vol] 10.5 g/dL Low 13.0-17.0 [facility] Comment on above: Performed By: #### B MP, CDP, HEPXA #### [facility] [address] [place] [address] Db2 Dba: Ramsey Rodriguez MD Immature granulocytes/100 WBC (Bld) 0 % Normal 0 [facility] Comment on above: Performed By: #### B MP, CDP, HEPXA #### [facility] [address] [place] [address] Db2 Dba: Ramsey Rodriguez MD Lymphocytes (Bld) [#/Vol] 0.89 10*3/uL Low 1.10-3.70 [facility] Comment on above: Performed By: #### B MP, CDP, HEPXA #### [facility] [address] [place] [address] Db2 Dba: Ramsey Rodriguez MD Lymphocytes/100 WBC (Bld) 19 % Low 24-43 [facility] Comment on above: Performed By: #### B MP, CDP, HEPXA #### [address] [address] Db2 Dba: Ramsey Rodriguez MD MCH (RBC) [Entitic mass] 30.9 pg Normal 25.2-33.5 [facility] Comment on above: Performed By: #### B MP, CDP, HEPXA #### [address] [address] Db2 Dba: Ramsey Rodriguez MD MCHC (RBC) [Mass/Vol] 31.4 g/dL Normal 28.4-34.8 [facility] Comment on above: Performed By: #### B MP, CDP, HEPXA #### [address] [address] Db2 Dba: Ramsey Rodriguez MD MCV (RBC) [Entitic vol] 98.2 fL Normal 82.6-102.9 [facility] Comment on above: Performed By: #### B MP, CDP, HEPXA #### [address] [address] Db2 Dba: Ramsey Rodriguez MD Monocytes (Bld) [#/Vol] 0.26 10*3/uL Normal 0.10-1.20 [facility] Comment on above: Performed By: #### B MP, CDP, HEPXA #### [address] [address] Db2 Dba: Ramsey Rodriguez MD Monocytes/100 WBC (Bld) 6 % Normal 3-12 [facility] Comment on above: Performed By: #### B MP, CDP, HEPXA #### [address] [address] Db2 Dba: Ramsey Rodriguez MD Neutrophil (Seg) 69 % High 36-65 [facility] Comment on above: Performed By: #### B MP, CDP, HEPXA #### [address] [address] Db2 Dba: Ramsey Rodriguez MD NRBC Automated 0.0 per 100 WBC Normal 0.0 [facility] Comment on above: Performed By: #### B MP, CDP, HEPXA #### [address] [address] Db2 Dba: Ramsey Rodriguez MD Platelet mean volume (Bld) [Entitic vol] 10.0 fL Normal 8.1-13.5 [facility] Comment on above: Performed By: #### B MP, CDP, HEPXA #### [address] [address] Db2 Dba: Ramsey Rodriguez MD Platelets (Bld) [#/Vol] 141 10*3/uL Normal 138-453 [facility] Comment on above: Performed By: #### B MP, CDP, HEPXA #### [address] [address] Db2 Dba: Ramsey Rodriguez MD RBC (Bld) [#/Vol] 3.40 10*6/uL Low 4.21-5.77 [facility] Comment on above: Performed By: #### B MP, CDP, HEPXA #### [address] [address] Db2 Dba: Ramsey Rodriguez MD RBC morphology finding Nom (Bld) ANISOCYTOSIS PRESENT Normal [facility] Comment on above: Performed By: #### B MP, CDP, HEPXA #### [facility] [address] [place] [address] Db2 Dba: Ramsey Rodriguez MD WBC (Bld) [#/Vol] 4.8 10*3/uL Normal 3.5-11.3 [facility] Comment on above: Performed By: #### B MP, CDP, HEPXA #### [facility] [address] [place] [address] Db2 Dba: Ramsey Rodriguez MD Glucose,Whole Bloodon 2023 Glucose [Mass/Vol] 92 mg/dL Normal 75-110 [facility] Glucose [Mass/Vol] 81 mg/dL Normal 75-110 [facility] Glucose [Mass/Vol] 99 mg/dL Normal 75-110 [facility] Glucose [Mass/Vol] 94 mg/dL Normal 75-110 [facility] XR CHEST PORTABLEon 08-24-19 XR CHEST [...] Alex Martinez MD 08/24/23 Final result Normal [facility] Basic Metab w/rfx MGon 08-22 Anion gap [Moles/Vol] 6 mmol/L Low 9-16 [facility] Comment on above: Performed By: #### B MP, TROPI #### [facility] [address] [place] [address] Db2 Dba: Ramsey Rodriguez MD Calcium [Mass/Vol] 8.1 mg/dL Low 8.6-10.4 [facility] Comment on above: Performed By: #### B MP, TROPI #### [facility] [address] [place] [address] Db2 Dba: Ramsey Rodriguez MD Chloride [Moles/Vol] 107 mmol/L Normal 98-107 [facility] Comment on above: Performed By: #### B EDWARD, TROPI #### [facility] [place] [address] Db2 Dba: Ramsey Rodriguez MD CO2 [Moles/Vol] 25 mmol/L Normal 20-31 [facility] Comment on above: Performed By: #### B EDWARD, TROPI #### [facility] [address] [place] [address] Db2 Dba: Ramsey Rodriguez MD Creatinine [Mass/Vol] 0.5 mg/dL Low 0.70-1.20 [facility] Comment on above: Performed By: #### B EDWARD, TROPI #### [facility] [address] [place] [address] Db2 Dba: Ramsey Rodriguez MD GFR/1.73 sq M.predicted among non-blacks MDRD (S/P/Bld) [Vol rate/Area] mL/min/{1.73_m2} Normal >60 [facility] Comment on above: Result Comment: These [...] Performed By: #### B EDWARD, TROPI #### [facility] [place] [address] Db2 Dba: Ramsey Rodriguez MD Glucose [Mass/Vol] 111 mg/dL High 74-99 [facility] Comment on above: Performed By: #### B EDWARD, TROPI #### [facility] [place] [address] Db2 Dba: Ramsey Rodriguez MD Potassium [Moles/Vol] 4.1 mmol/L Normal 3.7-5.3 [facility] Comment on above: Performed By: #### B EDWARD TROPI #### [address] [address] Db2 Dba: Ramsey Rodriguez MD Sodium [Moles/Vol] 138 mmol/L Normal 136-145 [facility] Comment on above: Performed By: #### B EDWARD TROPI #### [place] [address] Db2 Dba: Ramsey Rodriguez MD Urea nitrogen [Mass/Vol] 17 mg/dL Normal 8-23 [facility] Comment on above: Performed By: #### B EDWARD TROPI #### [address] [address] Db2 Dba: Ramsey Rodriguez MD CBC with Diffon 08-23-2023 Abs. Basophil <0.03 Normal 0.00-0.20 [facility] Comment on above: Performed By: #### Nicol LEON TROPI #### [address] [address] Db2 Dba: Ramsey Rodriguez MD Abs.Imm.Granulocyte <0.03 Normal 0.00-0.30 [facility] Comment on above: Performed By: #### B EDWARD TROPI #### [place] [address] Db2 Dba: Ramsey Rodriguez MD Abs.Neutrophil (Seg) 4.44 k/uL Normal 1.50-8.10 [facility] Comment on above: Performed By: #### B EDWARD TROPI #### [facility] [address] [place] [address] Db2 Dba: Ramsey Rodriguez MD Basophils/100 WBC (Bld) 0 % Normal 0-2 [facility] Comment on above: Performed By: #### B EDWARD TROPI #### [address] [address] Db2 Dba: Ramsey Rodriguez MD Eosinophils (Bld) [#/Vol] 0.26 10*3/uL Normal 0.00-0.44 [facility] Comment on above: Performed By: #### B MP, TROPI #### [facility] [address] [place] [address] Db2 Dba: Ramsey Rodriguez MD Eosinophils/100 WBC (Bld) 4 % Normal 1-4 [facility] Comment on above: Performed By: #### B EDWARD, TROPI #### [facility] [address] [place] [address] Db2 Dba: Ramsey Rodriguez MD Erythrocyte distribution width (RBC) [Ratio] 15.8 % High 11.8-14.4 [facility] Comment on above: Performed By: #### B EDWARD, TROPI #### [facility] [address] [place] [address] Db2 Dba: Ramsey Rodriguez MD Hematocrit (Bld) [Volume fraction] 35.5 % Low 40.7-50.3 [facility] Comment on above: Performed By: #### B EDWARD, TROPI #### [facility] [address] [place] [address] Db2 Dba: Ramsey Rodriguez MD Hemoglobin (Bld) [Mass/Vol] 10.8 g/dL Low 13.0-17.0 [facility] Comment on above: Performed By: #### B MP, TROPI #### [facility] [address] [place] [address] Db2 Dba: Ramsey Rodriguez MD Immature granulocytes/100 WBC (Bld) 0 % Normal 0 [facility] Comment on above: Performed By: #### B MP, TROPI #### [facility] [address] [place] [address] Db2 Dba: Ramsey Rodriguez MD Lymphocytes (Bld) [#/Vol] 0.92 10*3/uL Low 1.10-3.70 [facility] Comment on above: Performed By: #### B MP, TROPI #### [facility] [address] [place] [address] Db2 Dba: Ramsey Rodriguez MD Lymphocytes/100 WBC (Bld) 15 % Low 24-43 [facility] Comment on above: Performed By: #### B MP, TROPI #### [facility] [address] [place] [address] Db2 Dba: Ramsey Rodriguez MD MCH (RBC) [Entitic mass] 30.6 pg Normal 25.2-33.5 [facility] Comment on above: Performed By: #### B EDWARD, TROPI #### [facility] [address] [place] [address] Db2 Dba: Ramsey Rodriguez MD MCHC (RBC) [Mass/Vol] 30.4 g/dL Normal 28.4-34.8 [facility] Comment on above: Performed By: #### B EDWARD, TROPI #### [facility] [address] [place] [address] Db2 Dba: Ramsey Rodriguez MD MCV (RBC) [Entitic vol] 100.6 fL Normal 82.6-102.9 [facility] Comment on above: Performed By: #### B EDWARD, TROPI #### [facility] [address] [place] [address] Db2 Dba: Ramsey Rodriguez MD Monocytes (Bld) [#/Vol] 0.31 10*3/uL Normal 0.10-1.20 [facility] Comment on above: Performed By: #### B EDWARD, TROPI #### [facility] [address] [place] [address] Db2 Dba: Ramsey Rodriguez MD Monocytes/100 WBC (Bld) 5 % Normal 3-12 [facility] Comment on above: Performed By: #### B EDWARD, TROPI #### [address] [address] Db2 Dba: Ramsey Rodriguez MD Neutrophil (Seg) 76 % High 36-65 [facility] Comment on above: Performed By: #### B EDWARD, TROPI #### [address] [address] Db2 Dba: Ramsey Rodriguez MD NRBC Automated 0.0 per 100 WBC Normal 0.0 [facility] Comment on above: Performed By: #### B EDWARD, TROPI #### [address] [address] Db2 Dba: Ramsey Rodriguez MD Platelet mean volume (Bld) [Entitic vol] 9.9 fL Normal 8.1-13.5 [facility] Comment on above: Performed By: #### B EDWARD TROPI #### [address] [address] Db2 Dba: Ramsey Rodriguez MD Platelets (Bld) [#/Vol] 129 10*3/uL Low 138-453 [facility] Comment on above: Performed By: #### B EDWARD, TROPI #### [address] [address] Db2 Dba: Ramsey Rodriguez MD RBC (Bld) [#/Vol] 3.53 10*6/uL Low 4.21-5.77 [facility] Comment on above: Performed By: #### B EDWARD, TROPI #### [address] [address] Db2 Dba: Ramsey Rodriguez MD RBC morphology finding Nom (Bld) ANISOCYTOSIS PRESENT Normal [facility] Comment on above: Performed By: #### B EDWARD, TROPI #### [facility] [address] [place] [address] Db2 Dba: Ramsey Rodriguez MD WBC (Bld) [#/Vol] 6.0 10*3/uL Normal 3.5-11.3 [facility] Comment on above: Performed By: #### B EDWARD, TROPI #### [facility] [address] [place] [address] Db2 Dba: Ramsey Rodriguez MD Glucose,Whole Bloodon 2023 Glucose [Mass/Vol] 110 mg/dL Normal 75-110 [facility] Glucose [Mass/Vol] 97 mg/dL Normal 75-110 [facility] Glucose [Mass/Vol] 94 mg/dL Normal 75-110 [facility] Glucose [Mass/Vol] 90 mg/dL Normal 75-110 [facility] Magnesiumon 08-23-2023 Magnesium [Mass/Vol] 2.1 mg/dL Normal 1.6-2.4 [facility] Comment on above: Performed By: #### B EDWARD TROPI #### [facility] [address] [place] [address] Db2 Dba: Ramsey Rodriguez MD Phosphorus, Inorg.on 024 Phosphorus, Inorg. 1.7 mg/dL Low 2.5-4.5 [facility] Comment on above: Performed By: #### B EDWARD, TROPI #### [facility] [address] [place] [address] Db2 Dba: Ramsey Rodriguez MD Basic Metab w/rfx MGon 08-21 Anion gap [Moles/Vol] 8 mmol/L Low 9-16 [facility] Comment on above: Performed By: #### H EPXA, CBC, PTT, PT #### [facility] [address] [place] [address] Db2 Dba: Ramsey Rodriguez MD Calcium [Mass/Vol] 8.3 mg/dL Low 8.6-10.4 [facility] Comment on above: Performed By: #### H EPXA, CBC, PTT, PT #### [facility] [address] [place] [address] Db2 Dba: Ramsey Rodriguez MD Chloride [Moles/Vol] 105 mmol/L Normal 98-107 [facility] Comment on above: Performed By: #### H EPXA, CBC, PTT, PT #### [facility] [address] [place] [address] Db2 Dba: Ramsey Rodriguez MD CO2 [Moles/Vol] 25 mmol/L Normal 20-31 [facility] Comment on above: Performed By: #### H EPXA, CBC, PTT, PT #### [facility] [address] [place] [address] Db2 Dba: Ramsey Rodriguez MD Creatinine [Mass/Vol] 0.6 mg/dL Low 0.70-1.20 [facility] Comment on above: Performed By: #### H EPXA, CBC, PTT, PT #### [facility] [address] [place] [address]506 Db2 Dba: Ramsey Rodriguez MD GFR/1.73 sq M.predicted among non-blacks MDRD (S/P/Bld) [Vol rate/Area] mL/min/{1.73_m2} Normal >60 [facility] Comment on above: Result Comment: These [...] #### H EPXA, CBC, PTT, PT #### [employer] [address] [place] [address] 24541 Db2 Dba: Ramsey Rodriguez MD Glucose [Mass/Vol] 105 mg/dL High 74-99 [facility] Comment on above: Performed By: #### H EPXA, CBC, PTT, PT #### [facility] [address] [place] [address] 95515 Db2 Dba: Ramsey Rodriguez MD Potassium [Moles/Vol] 4.2 mmol/L Normal 3.7-5.3 [facility] Comment on above: Result Comment: SPEC IMEN SLIGHTLY HEMOLYZED, RESULTS MAY BE ADVERSELY AFFECTED. Performed By: #### H EPXA, CBC, PTT, PT #### [facility] [address] [place] [address] 72899 Db2 Dba: Ramsey Rodriguez MD Sodium [Moles/Vol] 138 mmol/L Normal 136-145 [facility] Comment on above: Performed By: #### H EPXA, CBC, PTT, PT #### [facility] [address] [place] [address] 14418 Db2 Dba: Ramsey Rodriguez MD Urea nitrogen [Mass/Vol] 25 mg/dL High 8-23 [facility] Comment on above: Performed By: #### H EPXA, CBC, PTT, PT #### [facility] [address] [place] [address] 92795 Db2 Dba: Ramsey Rodriguez MD CBC with Diffon 08-22-2023 Abs. Basophil 0.03 k/uL Normal 0.00-0.20 [facility] Comment on above: Performed By: #### H EPXA, CBC, PTT, PT #### [facility] [address] [place] [address] 53598 Db2 Dba: Ramsey Rodriguez MD Abs.Imm.Granulocyte 0.03 k/uL Normal 0.00-0.30 [facility] Comment on above: Performed By: #### H EPXA, CBC, PTT, PT #### [facility] [address] [place] [address] 11758 Db2 Dba: Ramsey Rodriguez MD Abs.Neutrophil (Seg) 7.03 k/uL Normal 1.50-8.10 [facility] Comment on above: Performed By: #### H EPXA, CBC, PTT, PT #### [facility] [address] [place] [address] 76987 Db2 Dba: Ramsey Rodriguez MD Basophils/100 WBC (Bld) 0 % Normal 0-2 [facility] Comment on above: Performed By: #### H EPXA, CBC, PTT, PT #### [facility] [address] [place] [address] Db2 Dba: Ramsey Rodriguez MD Eosinophils (Bld) [#/Vol] 0.10 10*3/uL Normal 0.00-0.44 [facility] Comment on above: Performed By: #### H EPXA, CBC, PTT, PT #### [facility] [address] [place] [address] Db2 Dba: Ramsey Rodriguez MD Eosinophils/100 WBC (Bld) 1 % Normal 1-4 [facility] Comment on above: Performed By: #### H EPXA, CBC, PTT, PT #### [facility] [address] [place] [address] Db2 Dba: Ramsey Rodriguez MD Erythrocyte distribution width (RBC) [Ratio] 16.0 % High 11.8-14.4 [facility] Comment on above: Performed By: #### H EPXA, CBC, PTT, PT #### [facility] [address] [place] [address] 51062 Db2 Dba: Ramsey Rodriguez MD Hematocrit (Bld) [Volume fraction] 38.1 % Low 40.7-50.3 [facility] Comment on above: Performed By: #### H EPXA, CBC, PTT, PT #### [facility] [address] [place] [address] 13801 Db2 Dba: Ramsey Rodriguez MD Hemoglobin (Bld) [Mass/Vol] 11.9 g/dL Low 13.0-17.0 [facility] Comment on above: Performed By: #### H EPXA, CBC, PTT, PT #### [facility] [address] [place] [address] 99833 Db2 Dba: Ramsey Rodriguez MD Immature granulocytes/100 WBC (Bld) 0 % Normal 0 [facility] Comment on above: Performed By: #### H EPXA, CBC, PTT, PT #### [facility] [address] [place] [address] 43241 Db2 Dba: Ramsey Rodriguez MD Lymphocytes (Bld) [#/Vol] 0.78 10*3/uL Low 1.10-3.70 [facility] Comment on above: Performed By: #### H EPXA, CBC, PTT, PT #### [address] [address] Db2 Dba: Ramsey Rodriguez MD Lymphocytes/100 WBC (Bld) 9 % Low 24-43 [facility] Comment on above: Performed By: #### H EPXA, CBC, PTT, PT #### [facility] [address] [place] [address] 44871 Db2 Dba: Ramsey Rodriguez MD MCH (RBC) [Entitic mass] 30.8 pg Normal 25.2-33.5 [facility] Comment on above: Performed By: #### H EPXA, CBC, PTT, PT #### [facility] [address] [place] [address] 87121 Db2 Dba: Ramsey Rodriguez MD MCHC (RBC) [Mass/Vol] 31.2 g/dL Normal 28.4-34.8 [facility] Comment on above: Performed By: #### H EPXA, CBC, PTT, PT #### [address] [address] Db2 Dba: Ramsey Rodriguez MD MCV (RBC) [Entitic vol] 98.7 fL Normal 82.6-102.9 [facility] Comment on above: Performed By: #### H EPXA, CBC, PTT, PT #### [address] [address] Db2 Dba: Ramsey Rodriguez MD Monocytes (Bld) [#/Vol] 0.32 10*3/uL Normal 0.10-1.20 [facility] Comment on above: Performed By: #### H EPXA, CBC, PTT, PT #### [address] [address]61 Db2 Dba: Ramsey Rodriguez MD Monocytes/100 WBC (Bld) 4 % Normal 3-12 [facility] Comment on above: Performed By: #### H EPXA, CBC, PTT, PT #### [address] [address] Db2 Dba: Rasmey Rodriguez MD Neutrophil (Seg) 86 % High 36-65 [facility] Comment on above: Performed By: #### H EPXA, CBC, PTT, PT #### [address] [address] Db2 Dba: Ramsey Rodriguez MD NRBC Automated 0.0 per 100 WBC Normal 0.0 [facility] Comment on above: Performed By: #### H EPXA, CBC, PTT, PT #### [facility] [address] [place] [address] 68206 Db2 Dba: Ramsey Rodriguez MD Platelet mean volume (Bld) [Entitic vol] 10.1 fL Normal 8.1-13.5 [facility] Comment on above: Performed By: #### H EPXA, CBC, PTT, PT #### [address] [place] [address] Db2 Dba: Ramsey Rodriguez MD Platelets (Bld) [#/Vol] 140 10*3/uL Normal 138-453 [facility] Comment on above: Performed By: #### H EPXA, CBC, PTT, PT #### [address] [address] Db2 Dba: Ramsey Rodriguez MD RBC (Bld) [#/Vol] 3.86 10*6/uL Low 4.21-5.77 [facility] Comment on above: Performed By: #### H EPXA, CBC, PTT, PT #### [facility] [address] [place] [address] 71247 Db2 Dba: Ramsey Rodriguez MD RBC morphology finding Nom (Bld) ANISOCYTOSIS PRESENT Normal [facility] Comment on above: Performed By: #### H EPXA, CBC, PTT, PT #### [facility] [address] [place] [address] 48480 Db2 Dba: Ramsey Rodriguez MD WBC (Bld) [#/Vol] 8.3 10*3/uL Normal 3.5-11.3 [facility] Comment on above: Performed By: #### H EPXA, CBC, PTT, PT #### [address] [address] Db2 Dba: Ramsey Rodriguez MD Glucose,Whole Bloodon 2023 Glucose [Mass/Vol] 127 mg/dL High 75-110 [facility] Glucose [Mass/Vol] 125 mg/dL High 75-110 [facility] Glucose [Mass/Vol] 112 mg/dL High 75-110 [facility] Glucose [Mass/Vol] 84 mg/dL Normal 75-110 [facility] Glucose [Mass/Vol] 86 mg/dL Normal 75-110 [facility] Glucose [Mass/Vol] 96 mg/dL Normal 75-110 [facility] Magnesiumon 08-22-2023 Magnesium [Mass/Vol] 1.8 mg/dL Normal 1.6-2.4 [facility] Comment on above: Performed By: #### H EPXA, CBC, PTT, PT #### [facility] [address] [place] [address] [id number] Db2 Dba: Ramsey Rodriguez MD Phosphorus, Inorg.on 024 Phosphorus, Inorg. 2.2 mg/dL Low 2.5-4.5 [facility] Comment on above: Performed By: #### H EPXA, CBC, PTT, PT #### [facility] [address] [place] [address] 35770 Db2 Dba: Ramsey Rodriguez MD Basic Metab w/rfx MGon 08-20 Anion gap [Moles/Vol] 10 mmol/L Normal 9-16 [facility] Comment on above: Performed By: #### H EPXA, CBC, PTT, PT #### [facility] [address] [place] [address] 20978 Db2 Dba: Ramsey Rodriguez MD Calcium [Mass/Vol] 9.0 mg/dL Normal 8.6-10.4 [facility] Comment on above: Performed By: #### H EPXA, CBC, PTT, PT #### [facility] [address] [place] [address] 38839 Db2 Dba: Ramsey Rodriguez MD Chloride [Moles/Vol] 105 mmol/L Normal 98-107 [facility] Comment on above: Performed By: #### H EPXA, CBC, PTT, PT #### [facility] [address] [place] [address] 47708 Db2 Dba: Ramsey Rodriguez MD CO2 [Moles/Vol] 27 mmol/L Normal 20-31 [facility] Comment on above: Performed By: #### H EPXA, CBC, PTT, PT #### [facility] [address] [place] [address] 93692 Db2 Dba: Ramsey Rodriguez MD Creatinine [Mass/Vol] 0.7 mg/dL Normal 0.70-1.20 [facility] Comment on above: Performed By: #### H EPXA, CBC, PTT, PT #### [facility] [address] [place] [address] 75147 Db2 Dba: Ramsey Rodriguez MD GFR/1.73 sq M.predicted among non-blacks MDRD (S/P/Bld) [Vol rate/Area] 89 mL/min/{1.73_m2} Normal >60 [facility] Comment on above: Result Comment: These [...] #### H EPXA, CBC, PTT, PT #### [facility] [address] [place] [address] 63473 Db2 Dba: Ramsey Rodriguez MD Glucose [Mass/Vol] 146 mg/dL High 74-99 [facility] Comment on above: Performed By: #### H EPXA, CBC, PTT, PT #### [facility] [address] [place] [address] 24276 Db2 Dba: Ramsey Rodriguez MD Potassium [Moles/Vol] 4.4 mmol/L Normal 3.7-5.3 [facility] Comment on above: Performed By: #### H EPXA, CBC, PTT, PT #### [facility] [address] [place] [address] 76983 Db2 Dba: Ramsey Rodriguez MD Sodium [Moles/Vol] 142 mmol/L Normal 136-145 [facility] Comment on above: Performed By: #### H EPXA, CBC, PTT, PT #### [facility] [address] [place] [address] Db2 Dba: Ramsey Rodriguez MD Urea nitrogen [Mass/Vol] 25 mg/dL High 8-23 [facility] Comment on above: Performed By: #### H EPXA, CBC, PTT, PT #### [facility] [address] [place] [address] Db2 Dba: Ramsey Rodriguez MD CBC with Diffon 08-21-2023 Abs. Basophil 0.00 k/uL Normal 0.0-0.2 [facility] Comment on above: Performed By: #### H EPXA, CBC, PTT, PT #### [place] [address] Db2 Dba: Ramsey Rodriguez MD Abs.Imm.Granulocyte 0.00 k/uL Normal 0.00-0.30 [facility] Comment on above: Performed By: #### H EPXA, CBC, PTT, PT #### [facility] [address] [place] [address] Db2 Dba: Ramsey Rodriguez MD Abs.Neutrophil (Seg) 10.86 k/uL High 1.8-7.7 [facility] Comment on above: Performed By: #### H EPXA, CBC, PTT, PT #### [facility] [address] [place] [address] 33694 Db2 Dba: Ramsey Rodriguez MD Basophils/100 WBC (Bld) 0 % Normal 0-2 [facility] Comment on above: Performed By: #### H EPXA, CBC, PTT, PT #### [facility] [address] [place] [address] 63669 Db2 Dba: Ramsey Rodriguez MD Eosinophils (Bld) [#/Vol] 0.00 10*3/uL Normal 0.0-0.4 [facility] Comment on above: Performed By: #### H EPXA, CBC, PTT, PT #### [facility] [address] [place] [address] 26147 Db2 Dba: Ramsey Rodriguez MD Eosinophils/100 WBC (Bld) 0 % Low 1-4 [facility] Comment on above: Performed By: #### H EPXA, CBC, PTT, PT #### [facility] [address] [place] [address] 98668 Db2 Dba: Ramsey Rodriguez MD Immature granulocytes/100 WBC (Bld) 0 % Normal 0 [facility] Comment on above: Performed By: #### H EPXA, CBC, PTT, PT #### [facility] [address] [place] [address] 04443 Db2 Dba: Ramsey Rodriguez MD Lymphocytes (Bld) [#/Vol] 0.73 10*3/uL Low 1.0-4.8 [facility] Comment on above: Performed By: #### H EPXA, CBC, PTT, PT #### [facility] [address] [place] [address] 60616 Db2 Dba: Ramsey Rodriguez MD Lymphocytes/100 WBC (Bld) 6 % Low 24-44 [facility] Comment on above: Performed By: #### H EPXA, CBC, PTT, PT #### [facility] [address] [place] [address] 48873 Db2 Dba: Ramsey Rodriguez MD Monocytes (Bld) [#/Vol] 0.61 10*3/uL Normal 0.1-0.8 [facility] Comment on above: Performed By: #### H EPXA, CBC, PTT, PT #### [facility] [address] [place] [address] 27012 Db2 Dba: Ramsey Rodriguez MD Monocytes/100 WBC (Bld) 5 % Normal 1-7 [facility] Comment on above: Performed By: #### H EPXA, CBC, PTT, PT #### [address] [address] Db2 Dba: Ramsey Rodriguez MD Morphology Edmond (Bld) [Interp] ANISOCYTOSIS PRESENT Normal [facility] Comment on above: Performed By: #### H EPXA, CBC, PTT, PT #### [address] [address] Db2 Dba: Ramsey Rodriguez MD Neutrophil (Seg) 89 % High 36-66 [facility] Comment on above: Performed By: #### H EPXA, CBC, PTT, PT #### [address] [address] Db2 Dba: Ramsey Rodriguez MD Erythrocyte distribution width (RBC) [Ratio] 15.7 % High 11.8-14.4 [facility] Comment on above: Performed By: #### H EPXA, CBC, PTT, PT #### [address] [address]18 Db2 Dba: Ramsey Rodriguez MD Hematocrit (Bld) [Volume fraction] 40.8 % Normal 40.7-50.3 [facility] Comment on above: Performed By: #### H EPXA, CBC, PTT, PT #### [address] [address] Db2 Dba: Ramsey Rodriguez MD Hemoglobin (Bld) [Mass/Vol] 13.2 g/dL Normal 13.0-17.0 [facility] Comment on above: Performed By: #### H EPXA, CBC, PTT, PT #### [address] [address] Db2 Dba: Ramsey Rodriguez MD MCH (RBC) [Entitic mass] 30.3 pg Normal 25.2-33.5 [facility] Comment on above: Performed By: #### H EPXA, CBC, PTT, PT #### [address] [address] Db2 Dba: Ramsey Rodriguez MD MCHC (RBC) [Mass/Vol] 32.4 g/dL Normal 28.4-34.8 [facility] Comment on above: Performed By: #### H EPXA, CBC, PTT, PT #### [address] [address] Db2 Dba: Ramsey Rodriguez MD MCV (RBC) [Entitic vol] 93.8 fL Normal 82.6-102.9 [facility] Comment on above: Performed By: #### H EPXA, CBC, PTT, PT #### [address] [address] Db2 Dba: Ramsey Rodriguez MD NRBC Automated 0.0 per 100 WBC Normal 0.0 [facility] Comment on above: Performed By: #### H EPXA, CBC, PTT, PT #### [address] [address] Db2 Dba: Ramsey Rodriguez MD Platelet mean volume (Bld) [Entitic vol] 10.0 fL Normal 8.1-13.5 [facility] Comment on above: Performed By: #### H EPXA, CBC, PTT, PT #### [address] [address] Db2 Dba: Ramsey Rodriguez MD Platelets (Bld) [#/Vol] 197 10*3/uL Normal 138-453 [facility] Comment on above: Performed By: #### H EPXA, CBC, PTT, PT #### [address] [address] Db2 Dba: Ramsey Rodriguez MD RBC (Bld) [#/Vol] 4.35 10*6/uL Normal 4.21-5.77 [facility] Comment on above: Performed By: #### H EPXA, CBC, PTT, PT #### [facility] [address] [place] [address] 25056 Db2 Dba: Ramsey Rodriguez MD WBC (Bld) [#/Vol] 12.2 10*3/uL High 3.5-11.3 [facility] Comment on above: Performed By: #### H EPXA, CBC, PTT, PT #### [facility] [address] [place] [address] 41586 Db2 Dba: Ramsey Rodriguez MD Glucose,Whole Bloodon 2023 Glucose [Mass/Vol] 124 mg/dL High 75-110 [facility] Glucose [Mass/Vol] 95 mg/dL Normal 75-110 [facility] Magnesiumon 08-21-2023 Magnesium [Mass/Vol] 2.0 mg/dL Normal 1.6-2.4 [facility] Comment on above: Performed By: #### H EPXA, CBC, PTT, PT #### [facility] [address] [place] [address] 42397 Db2 Dba: Ramsey Rodriguez MD Phosphorus, Inorg.on 024 Phosphorus, Inorg. 3.9 mg/dL Normal 2.5-4.5 [facility] Comment on above: Performed By: #### H EPXA, CBC, PTT, PT #### [facility] [address] [place] [address] 79376 Db2 Dba: Ramsey Rodriguez MD Type + Screenon 08-21-2023 Type + Screen Sample Expiration 08/24/2023,2359 Arm Band Number BE [id number] ABO/Rh(D) O NEGATIVE Antibody Screen NEGATIVE Normal [facility] Comment on above: Performed By: #### H EPXA, CBC, PTT, PT #### [facility] [address] [place] [address] 43608 Db2 Dba: Ramsey Rodriguez MD XR CHEST PORTABLEon 08-21-19 [...] Dave Burns MD 08/21/23 Final result Normal [facility] Basophils Auto (Bld) [#/Vol] on 08-20-2023 Basophils (Bld) [#/Vol] 0.1 10 3/uL 0.0-0.1 [facility] Basophils/100 WBC Auto (Bld) on 08-20-2023 Basophils/100 WBC (Bld) 0.3 % 0.2-2.0 [facility] Bilirubin Auto test strip (U ) [Mass/Vol]on 08-20-2023 Bilirubin (U) [Mass/Vol] Negative NEGATIVE [facility] CBC with Diffon 08-20-2023 Abs. Basophil 0.00 k/uL Normal 0.0-0.2 [facility] Comment on above: Performed By: #### H EPXA, CBC, PTT, PT #### [facility] [address] [place] [address] 43608 Db2 Dba: Ramsey Rodriguez MD Abs.Imm.Granulocyte 0.00 k/uL Normal 0.00-0.30 [facility] Comment on above: Performed By: #### H EPXA, CBC, PTT, PT #### [employer] [facility] [address] [place] [address] 43608 Db2 Dba: Ramsey Rodriguez MD Abs.Neutrophil (Seg) 12.60 k/uL High 1.8-7.7 [facility] Comment on above: Performed By: #### H EPXA, CBC, PTT, PT #### [facility] [address] [place] [address] 35813 Db2 Dba: Ramsey Rodriguez MD Basophils/100 WBC (Bld) 0 % Normal 0-2 [facility] Comment on above: Performed By: #### H EPXA, CBC, PTT, PT #### [address] [address] Db2 Dba: Ramsey Rodriguez MD Eosinophils (Bld) [#/Vol] 0.00 10*3/uL Normal 0.0-0.4 [facility] Comment on above: Performed By: #### H EPXA, CBC, PTT, PT #### [address] [address] Db2 Dba: Ramsey Rodriguez MD Eosinophils/100 WBC (Bld) 0 % Low 1-4 [facility] Comment on above: Performed By: #### H EPXA, CBC, PTT, PT #### [address] [address]896 Db2 Dba: Ramsey Rodriguez MD Immature granulocytes/100 WBC (Bld) 0 % Normal 0 [facility] Comment on above: Performed By: #### H EPXA, CBC, PTT, PT #### [address] [address] Db2 Dba: Ramsey Rodriguez MD Lymphocytes (Bld) [#/Vol] 0.67 10*3/uL Low 1.0-4.8 [facility] Comment on above: Performed By: #### H EPXA, CBC, PTT, PT #### [address] [address]349 Db2 Dba: Ramsey Rodriguez MD Lymphocytes/100 WBC (Bld) 5 % Low 24-44 [facility] Comment on above: Performed By: #### H EPXA, CBC, PTT, PT #### [address] [address] Db2 Dba: Ramsey Rodriguez MD Monocytes (Bld) [#/Vol] 0.13 10*3/uL Normal 0.1-0.8 [facility] Comment on above: Performed By: #### H EPXA, CBC, PTT, PT #### [address] [address] Db2 Dba: Ramsey Rodriguez MD Monocytes/100 WBC (Bld) 1 % Normal 1-7 [facility] Comment on above: Performed By: #### H EPXA, CBC, PTT, PT #### [address] [address] Db2 Dba: Ramsey Rodriguez MD Morphology Edmond (Bld) [Interp] ANISOCYTOSIS PRESENT Normal [facility] Comment on above: Performed By: #### H EPXA, CBC, PTT, PT #### [facility] [address] [place] [address]123 Db2 Dba: Ramsey Rodriguez MD Neutrophil (Seg) 94 % High 36-66 [facility] Comment on above: Performed By: #### H EPXA, CBC, PTT, PT #### [facility] [address] [place] [address] 64920 Db2 Dba: Ramsey Rodriguez MD Erythrocyte distribution width (RBC) [Ratio] 15.6 % High 11.8-14.4 [facility] Comment on above: Performed By: #### H EPXA, CBC, PTT, PT #### [facility] [address] [place] [address] 23796 Db2 Dba: Ramsey Rodriguez MD Hematocrit (Bld) [Volume fraction] 43.6 % Normal 40.7-50.3 [facility] Comment on above: Performed By: #### H EPXA, CBC, PTT, PT #### [facility] [address] [place] [address] 77406 Db2 Dba: Ramsey Rodriguez MD Hemoglobin (Bld) [Mass/Vol] 14.0 g/dL Normal 13.0-17.0 [facility] Comment on above: Performed By: #### H EPXA, CBC, PTT, PT #### [address] [address] Db2 Dba: Ramsey Rodriguez MD MCH (RBC) [Entitic mass] 30.6 pg Normal 25.2-33.5 [facility] Comment on above: Performed By: #### H EPXA, CBC, PTT, PT #### [address] [address] Db2 Dba: Ramsey Rodriguez MD MCHC (RBC) [Mass/Vol] 32.1 g/dL Normal 28.4-34.8 [facility] Comment on above: Performed By: #### H EPXA, CBC, PTT, PT #### [facility] [address] [place] [address] 02442 Db2 Dba: Ramsey Rodriguez MD MCV (RBC) [Entitic vol] 95.2 fL Normal 82.6-102.9 [facility] Comment on above: Performed By: #### H EPXA, CBC, PTT, PT #### [facility] [address] [place] [address] 04399 Db2 Dba: Ramsey Rodriguez MD NRBC Automated 0.0 per 100 WBC Normal 0.0 [facility] Comment on above: Performed By: #### H EPXA, CBC, PTT, PT #### [facility] [address] [place] [address] 91342 Db2 Dba: Ramsey Rodriguez MD Platelet mean volume (Bld) [Entitic vol] 10.1 fL Normal 8.1-13.5 [facility] Comment on above: Performed By: #### H EPXA, CBC, PTT, PT #### [facility] [address] [place] [address] 35268 Db2 Dba: Ramsey Rodriguez MD Platelets (Bld) [#/Vol] 200 10*3/uL Normal 138-453 [facility] Comment on above: Performed By: #### H EPXA, CBC, PTT, PT #### [address] [address] Db2 Dba: Ramsey Rodriguez MD RBC (Bld) [#/Vol] 4.58 10*6/uL Normal 4.21-5.77 [facility] Comment on above: Performed By: #### H EPXA, CBC, PTT, PT #### [address] [address] Db2 Dba: Ramsey Rodriguez MD WBC (Bld) [#/Vol] 13.4 10*3/uL High 3.5-11.3 [facility] Comment on above: Performed By: #### H EPXA, CBC, PTT, PT #### [facility] [address] [place] [address]285 Db2 Dba: Ramsey Rodriguez MD Comp Metabolic Profon 2023 Albumin [Mass/Vol] 3.5 g/dL Normal 3.5-5.2 [facility] Comment on above: Performed By: #### H EPXA, CBC, PTT, PT #### [facility] [address] [place] [address] 31436 Db2 Dba: Ramsey Rodriguez MD Albumin/Glob Ratio 1.0 Normal 1.0-2.5 [facility] Comment on above: Performed By: #### H EPXA, CBC, PTT, PT #### [facility] [address] [place] [address] 23048 Db2 Dba: Ramsey Rodriguez MD Alkaline Phos 93 U/L Normal 40-129 [facility] Comment on above: Performed By: #### H EPXA, CBC, PTT, PT #### [employer] [address] [place] [address] 06312 Db2 Dba: Ramsey Rodriguez MD ALT [Catalytic activity/Vol] 58 U/L High 10-50 [facility] Comment on above: Performed By: #### H EPXA, CBC, PTT, PT #### [facility] [address] [place] [address]170 Db2 Dba: Ramsey Rodriguez MD Anion gap [Moles/Vol] 12 mmol/L Normal 9-16 [facility] Comment on above: Performed By: #### H EPXA, CBC, PTT, PT #### [facility] [address] [place] [address] [id number] Db2 Dba: Ramsey Rodriguez MD AST [Catalytic activity/Vol] 75 U/L High 10-50 [facility] Comment on above: Result Comment: SPEC IMEN SLIGHTLY HEMOLYZED, RESULTS MAY BE ADVERSELY AFFECTED. Performed By: #### H EPXA, CBC, PTT, PT #### [facility] [address] [place] [id number] Db2 Dba: Ramsey Rodriguez MD Bilirubin [Mass/Vol] 1.1 mg/dL Normal 0.00-1.20 [facility] Comment on above: Performed By: #### H EPXA, CBC, PTT, PT #### [facility] [address] [place] [id number] Db2 Dba: Ramsey Rodriguez MD Calcium [Mass/Vol] 9.1 mg/dL Normal 8.6-10.4 [facility] Comment on above: Performed By: #### H EPXA, CBC, PTT, PT #### [facility] [address] [place] [address] [id number] Db2 Dba: Ramsey Rodriguez MD Chloride [Moles/Vol] 100 mmol/L Normal 98-107 [facility] Comment on above: Performed By: #### H EPXA, CBC, PTT, PT #### [employer] [address] [place] [address] 75225 Db2 Dba: Ramsey Rodriguez MD CO2 [Moles/Vol] 25 mmol/L Normal 20-31 [facility] Comment on above: Performed By: #### H EPXA, CBC, PTT, PT #### [address] [address] Db2 Dba: Ramsey Rodriguez MD Creatinine [Mass/Vol] 0.8 mg/dL Normal 0.70-1.20 [facility] Comment on above: Performed By: #### H EPXA, CBC, PTT, PT #### [address] [address] Db2 Dba: Ramsey Rodriguez MD GFR/1.73 sq M.predicted among non-blacks MDRD (S/P/Bld) [Vol rate/Area] 87 mL/min/{1.73_m2} Normal >60 [facility] Comment on above: Result Comment: These [...] #### H EPXA, CBC, PTT, PT #### [facility] [address] [place] [address] [id number] Db2 Dba: Ramsey Rodriguez MD Glucose [Mass/Vol] 208 mg/dL High 74-99 [facility] Comment on above: Performed By: #### H EPXA, CBC, PTT, PT #### [facility] [address] [place] [address]122 Db2 Dba: Ramsey Rodriguez MD Potassium [Moles/Vol] 4.4 mmol/L Normal 3.7-5.3 [facility] Comment on above: Result Comment: SPEC IMEN SLIGHTLY HEMOLYZED, RESULTS MAY BE ADVERSELY AFFECTED. Performed By: #### H EPXA, CBC, PTT, PT #### [employer] [address] [place] [address]229 Db2 Dba: Ramsey Rodriguez MD Protein [Mass/Vol] 7.9 g/dL Normal 6.6-8.7 [facility] Comment on above: Performed By: #### H EPXA, CBC, PTT, PT #### [employer] [address] [place] [address] 11335 Db2 Dba: Ramsey Rodriguez MD Sodium [Moles/Vol] 137 mmol/L Normal 136-145 [facility] Comment on above: Performed By: #### H EPXA, CBC, PTT, PT #### [employer] [address] [place] [address] [id number] Db2 Dba: Ramsey Rodriguez MD Urea nitrogen [Mass/Vol] 26 mg/dL High 8-23 [facility] Comment on above: Performed By: #### H EPXA, CBC, PTT, PT #### [employer] [address] [place] [address] [id number] Db2 Dba: Ramsey Rodriguez MD Eosinophils/100 WBC Auto (Bl d)on 08-20-2023 Eosinophils/100 WBC (Bld) 0.1 % 0.9-7.0 [facility] Erythrocyte distribution wid th Auto (RBC) [Ratio]on 08-20-2023 Erythrocyte distribution width (RBC) [Ratio] 15.2 % 11.0-15.0 [facility] Estimated glomerular filtrat ion rate (GFR) non- Americanon 08-20-2023 GFR/1.73 sq M.predicted among non-blacks MDRD (S/P/Bld) [Vol rate/Area] mL/min/{1.73_m2} >=60 [facility] Globulin Calc (S) [Mass/Vol] on 08-20-2023 Globulin (S) [Mass/Vol] 5.3 g/dL [facility] Hematocrit Auto (Bld) [Volum e fraction]on 08-20-2023 Hematocrit (Bld) [Volume fraction] 40.8 % 42.0-54.0 [facility] Hemoglobin [Mass/volume] in Bloodon 08-20-2023 Hemoglobin (Bld) [Mass/Vol] 13.3 g/dL 14.0-18.0 [facility] Laboratory - Chemistry and C hemistry - challengeon 08-20-2023 Glucose (U) [Mass/Vol] Negative NEGATIVE [facility] Ketones Ql (U) Negative NEGATIVE [facility] pH (U) 5.0 [pH] 5.0-9.0 [facility] Specific gravity (U) [Rel density] 1.020 1.005-1.025 [facility] Urobilinogen Qn (U) 0.2 {Amy'U}/dL 0.2-1.0 [facility] Albumin [Mass/Vol] 3.2 g/dL 3.4-5.0 [facility] ALP [Catalytic activity/Vol] 104 U/L 46-116 [facility] ALT [Catalytic activity/Vol] 74 U/L 16-63 [facility] AST [Catalytic activity/Vol] 67 U/L 15-37 [facility] Bilirubin [Mass/Vol] 1.3 mg/dL 0.2-1.0 [facility] Calcium [Mass/Vol] 9.7 mg/dL 8.5-10.1 [facility] Chloride [Moles/Vol] 100 mmol/L 98-107 [facility] CO2 [Moles/Vol] 28.2 mmol/L 21.0-32.0 [facility] Creatinine [Mass/Vol] 1.05 mg/dL 0.70-1.30 [facility] GFR/1.73 sq M.predicted MDRD (S/P/Bld) [Vol rate/Area] mL/min/{1.73_m2} >=60 [facility] Glucose [Mass/Vol] 202 mg/dL 74-106 [facility] Lipase [Catalytic activity/Vol] 18.0 U/L 16.0-77.0 [facility] Natriuretic peptide B (Bld) [Mass/Vol] 470.0 pg/mL <=1800.0 [facility] Potassium [Moles/Vol] 3.6 mmol/L 3.5-5.1 [facility] Protein [Mass/Vol] 8.5 g/dL 6.4-8.2 [facility] Sodium [Moles/Vol] 137 mmol/L 136-145 [facility] Urea nitrogen [Mass/Vol] 30.0 mg/dL 7.0-18.0 [facility] Urea nitrogen/Creatinine [Mass ratio] 28.6 mg/mg [facility] Laboratory - Hematology and Cell countson 08-20-2023 Immature granulocytes/100 WBC (Bld) 0.4 % 0.0-0.5 [facility] Laboratory - Specimen inform ationon 08-20-2023 Appearance (U) CLEAR CLEAR [facility] Color (U) YELLOW YELLOW [facility] Laboratory - Urinalysison Leukocyte esterase Test strip Ql (U) Negative NEGATIVE [facility] Nitrite Ql (U) Negative NEGATIVE [facility] Protein Ql (U) Negative NEG/TRACE [facility] Lactic Acidon 08-20-2023 Lactic Acid,Whole Bl 3.6 mmol/L High 0.7-2.1 [facility] Comment on above: Performed By: #### H EPXA, CBC, PTT, PT #### [facility] [address] [place], [place] [id number] Db2 Dba: Ramsey Rodriguez MD Leukocytes [#/volume] correc александр for nucleated erythrocytes in Blood by Automated counon 08-20-2023 WBC corrected for nucl RBC Auto (Bld) [#/Vol] 15.6 10 3/uL 4.0-11.0 [facility] Lymphocytes Auto (Bld) [#/Vo l]on 08-20-2023 Lymphocytes (Bld) [#/Vol] 1.5 10 3/uL 1.2-3.8 [facility] Lymphocytes/100 WBC Auto (Bl d)on 08-20-2023 Lymphocytes/100 WBC (Bld) 9.6 % 20.5-60.0 [facility] MCH Auto (RBC) [Entitic mass ]on 08-20-2023 MCH (RBC) [Entitic mass] 30.6 pg 25.9-34.0 [facility] MCHC Auto (RBC) [Mass/Vol]on 08-20-2023 MCHC (RBC) [Mass/Vol] 32.6 g/dL 29.9-35.2 [facility] MCV Auto (RBC) [Entitic vol] on 08-20-2023 MCV (RBC) [Entitic vol] 93.8 fL 80.0-94.0 [facility] Magnesiumon 08-20-2023 Magnesium [Mass/Vol] 2.0 mg/dL Normal 1.6-2.4 [facility] Comment on above: Performed By: #### H EPXA, CBC, PTT, PT #### [employer] [facility] [place] [address] Db2 Dba: Ramsey Rodriguez MD Monocytes Auto (Bld) [#/Vol] on 08-20-2023 Monocytes (Bld) [#/Vol] 0.5 10 3/uL 0.3-0.8 [facility] Monocytes/100 WBC Auto (Bld) on 08-20-2023 Monocytes/100 WBC (Bld) 3.2 % 1.7-12.0 [facility] Neutrophils Auto (Bld) [#/Vo l]on 08-20-2023 Neutrophils (Bld) [#/Vol] 13.4 10 3/uL 1.4-6.5 [facility] Neutrophils/100 WBC Auto (Bl d)on 08-20-2023 Neutrophils/100 WBC (Bld) 86.4 % 43.0-75.0 [facility] No Panel Informationon 08-19 Urine Microscopic Review NO [facility] Eosinophils # (Auto) 0.0 10 3/uL 0.0-0.7 [facility] Immature Granulocyte # (Auto) 0.06 10 3/uL 0.00-0.03 [facility] Platelet mean volume Auto (B ld) [Entitic vol]on 08-20-2023 Platelet mean volume (Bld) [Entitic vol] 9.8 fL 9.5-13.5 [facility] Platelets Auto (Bld) [#/Vol] on 08-20-2023 Platelets (Bld) [#/Vol] 220 10 3/uL 150-450 [facility] RBC Auto (Bld) [#/Vol]on RBC (Bld) [#/Vol] 4.35 10 6/uL 4.70-6.10 [facility] Serum or plasma albumin/glob ulin mass ratioon 08-20-2023 Albumin/Globulin [Mass ratio] 0.6 {ratio} [facility] Serum or plasma anion gap de terminationon 08-20-2023 Anion gap [Moles/Vol] 12.4 mmol/L [facility] Urine hemoglobin detection b y automated test stripon 08-20-2023 Hemoglobin Auto test strip Ql (U) Negative NEGATIVE [facility] XR CHEST PORTABLEon 08-20-19 XR [...] Amada Rosario MD 08/20/23 Final result Normal [facility] CBC AUTO DIFFon 08-15-2022 BASO # 0.0 103/ul Normal 0.0-0.1 [facility] Comment on above: Performed By: #### C BC #### [facility] [address] [address] [address] Emily Lauren Basophils/100 WBC (Bld) 0.3 % Normal 0.2-2.0 [facility] Comment on above: Performed By: #### C BC #### [facility] [address] [place], [place] [address] Dr. Emily Lauren EO # 0.2 103/ul Normal 0.0-0.7 [facility] Comment on above: Performed By: #### C BC #### [facility] [address] [place] [address] Dr. Emily Lauren Eosinophils/100 WBC (Bld) 3.1 % Normal 0.9-7.0 [facility] Comment on above: Performed By: #### C BC #### [facility] [address] [place] [address] Dr. Emily Lauren Erythrocyte distribution width (RBC) [Ratio] 14.9 % Normal 11.0-15.0 [facility] Comment on above: Performed By: #### C BC #### [facility] [address] [place] [address] Dr. Emily Lauren Hematocrit (Bld) [Volume fraction] 39.9 % Critically low 42.0-54.0 [facility] Comment on above: Performed By: #### C BC #### [facility] [address] [place] [address] Dr. Emily Lauren Hemoglobin (Bld) [Mass/Vol] 12.9 g/dL Critically low 14.0-18.0 [facility] Comment on above: Performed By: #### C BC #### [facility] [address] [place] [address] Dr. Emily Lauren IG # 0.02 10e3/ul Normal 0.00-0.03 [facility] Comment on above: Performed By: #### C BC #### [facility] [address] [place] [address] Dr. Emily Lauren IG % 0.3 % Normal 0.0-0.5 [facility] Comment on above: Performed By: #### C BC #### [facility] [address] [place] [address] Dr. Emily Lauren LYMPH # 2.4 103/ul Normal 1.2-3.8 [facility] Comment on above: Performed By: #### C BC #### [facility] [address] [place] [address] Dr. Emily Lauren Lymphocytes/100 WBC (Bld) 30.7 % Normal 20.5-60.0 [facility] Comment on above: Performed By: #### C BC #### [facility] [address] [place] [address] Dr. Emily Lauren MANUAL DIFF REQ NO Normal [facility] Comment on above: Performed By: #### C BC #### [facility] [address] [place] [address] Dr. Emily Lauren MCH (RBC) [Entitic mass] 30.4 pg Normal 25.9-34.0 [facility] Comment on above: Performed By: #### C BC #### [facility] [address] [place] [address] Dr. Emily Lauren MCHC (RBC) [Mass/Vol] 32.3 g/dL Normal 29.9-35.2 [facility] Comment on above: Performed By: #### C BC #### [facility] [address] [place] [address] Dr. Emily Lauren MCV (RBC) [Entitic vol] 94.1 fL Critically high 80.0-94.0 [facility] Comment on above: Performed By: #### C BC #### [facility] [address] [place] [address] Dr. Emily Lauren MONO # 0.5 103/ul Normal 0.3-0.8 [facility] Comment on above: Performed By: #### C BC #### [facility] [address] [place] [address] Dr. Emily Lauren Monocytes/100 WBC (Bld) 5.9 % Normal 1.7-12.0 [facility] Comment on above: Performed By: #### C BC #### [facility] [address] [place] [address] Dr. Emily Lauren NEUT # 4.6 103/ul Normal 1.4-6.5 [facility] Comment on above: Performed By: #### C BC #### [facility] [address] [place] [address] Dr. Emily Lauren Neutrophils/100 WBC (Bld) 59.7 % Normal 43.0-75.0 [facility] Comment on above: Performed By: #### C BC #### [facility] [address] [place] [address] Dr. Emily Lauren Platelet mean volume (Bld) [Entitic vol] 9.7 fL Normal 9.5-13.5 [facility] Comment on above: Performed By: #### C BC #### [facility] [address] [place] [address] Dr. Emily Lauren PLT 176 103/ul Normal 150-450 [facility] Comment on above: Performed By: #### C BC #### [facility] [address] [place] [address] Dr. Emily Lauren RBC 4.24 106/ul Critically low 4.70-6.10 [facility] Comment on above: Performed By: #### C BC #### [facility] [address] [place] [address] Dr. Emily Lauren WBC 7.7 103/ul Normal 4.0-11.0 [facility] Comment on above: Performed By: #### C BC #### [facility] [address] [place] [address] Dr. Emily Lauren PROF 14(COMP METB)on 023 Albumin [Mass/Vol] 3.4 g/dL Normal 3.4-5.0 [facility] Comment on above: Performed By: #### C MP #### [facility] [address] [place] [address] Dr. Emily Lauren Albumin/Globulin [Mass ratio] 0.8 {ratio} Normal [facility] Comment on above: Performed By: #### C MP #### [facility] [address] [place] [address] Dr. Emily Lauren ALP [Catalytic activity/Vol] 81 U/L Normal 46-116 [facility] Comment on above: Performed By: #### C MP #### [facility] [address] [place] [address] Dr. Emily Lauren ALT [Catalytic activity/Vol] 44 U/L Normal 16-63 [facility] Comment on above: Performed By: #### C MP #### [facility] [address] [address] [address] Emily Lauren Anion gap [Moles/Vol] 11.3 mmol/L Normal [facility] Comment on above: Performed By: #### C MP #### [facility] [address] [address] [address] Emily Lauren AST [Catalytic activity/Vol] 41 U/L Critically high 15-37 [facility] Comment on above: Performed By: #### C MP #### [facility] [address] [address] [address] Emily Lauren Bilirubin [Mass/Vol] 1.4 mg/dL Critically high 0.2-1.0 [facility] Comment on above: Performed By: #### C MP #### [facility] [address] [address] [address] Emily Lauren Calcium [Mass/Vol] 9.2 mg/dL Normal 8.5-10.1 [facility] Comment on above: Performed By: #### C MP #### [facility] [address] [address] [address] Emily Lauren Chloride [Moles/Vol] 106 mmol/L Normal 98-107 [facility] Comment on above: Performed By: #### C MP #### [facility] [address] [address] [address] Emily Lauren CO2 [Moles/Vol] 29.8 mmol/L Normal 21.0-32.0 [facility] Comment on above: Performed By: #### C MP #### [facility] [address] [address] [address] Emily Lauren Creatinine [Mass/Vol] 0.83 mg/dL Normal 0.70-1.30 [facility] Comment on above: Performed By: #### C MP #### [facility] [address] [address] [address] Emily Lauren EGFR-AF MALIAN >60 Normal >=60 [facility] Comment on above: Performed By: #### C MP #### [facility] [address] [address] [address] Emily Lauren EGFR-NON AF MALIAN >60 Normal >=60 [facility] Comment on above: Performed By: #### C MP #### [facility] [address] [address] [address] Emily Lauren Globulin (S) [Mass/Vol] 4.2 g/dL Normal [facility] Comment on above: Performed By: #### C MP #### [facility] [address] [address] [address] Emily Lauren Glucose [Mass/Vol] 80 mg/dL Normal 74-106 [facility] Comment on above: Performed By: #### C MP #### [facility] [address] [place] [address] Dr. Emily Lauren Potassium [Moles/Vol] 4.1 mmol/L Normal 3.5-5.1 [facility] Comment on above: Performed By: #### C MP #### [facility] [address] [place] [address] Dr. Emily Lauren Protein [Mass/Vol] 7.6 g/dL Normal 6.4-8.2 [facility] Comment on above: Performed By: #### C MP #### [facility] [address] [place] [address] Dr. Emily Lauren Sodium [Moles/Vol] 143 mmol/L Normal 136-145 [facility] Comment on above: Performed By: #### C MP #### [facility] [address] [place] [address] Dr. Emily Lauren Urea nitrogen [Mass/Vol] 26.0 mg/dL Critically high 7.0-18.0 [facility] Comment on above: Performed By: #### C MP #### [facility] [address] [place] [address] Dr. Emily Lauren Urea nitrogen/Creatinine [Mass ratio] 31.3 mg/mg Normal [facility] Comment on above: Performed By: #### C MP #### [facility] [address] [place] [address] Dr. Emily Lauren Vital Signs Date Time Vital Sign Value Performing Clinician Facility 04-30-2024 08:50-0500 Body height 172.7 cm Dante Casillas DPM Work Phone: [facility] 04-30-2024 08:50-0500 Body mass index (BMI) [Ratio] 28.74 kg/m2 Dante Casillas DPM Work Phone: [facility] 04-30-2024 08:50-0500 Body weight 85.73 kg Dante Casillas DPM Work Phone: [facility] 04-30-2024 08:50-0500 Respiratory rate 16 /min Dante Casillas DPM Work Phone: [facility] 12-13-2023 14:39-0400 Body height 175.26 cm [facility] 12-13-2023 14:39-0400 Body mass index (BMI) [Ratio] 23.5 kg/m2 [facility] 12-13-2023 14:39-0400 Body weight 72.17 kg [facility] 12-13-2023 14:39-0400 Diastolic blood pressure 68 mm[Hg] [facility] 12-13-2023 14:39-0400 Heart rate 68 /min [facility] 12-13-2023 14:39-0400 Systolic blood pressure 121 mm[Hg] [facility] 12-12-2023 09:58-0400 Body height 172.7 cm Dante Casillas DPM Work Phone: [facility] 12-12-2023 09:58-0400 Body mass index (BMI) [Ratio] 28.74 kg/m2 Dante Casillas DPM Work Phone: [facility] 12-12-2023 09:58-0400 Body weight 85.73 kg Dante Casillas DPM Work Phone: [facility] 12-12-2023 09:58-0400 Diastolic blood pressure 79 mm[Hg] Dante Casillas DPM Work Phone: [facility] 12-12-2023 09:58-0400 Heart rate 80 /min Dante Casillas DPM Work Phone: [facility] 12-12-2023 09:58-0400 Systolic blood pressure 122 mm[Hg] Dante Casillas DPM Work Phone: [facility] 10-03-2023 15:59-0400 Body height 175.26 cm [facility] 10-03-2023 15:59-0400 Body mass index (BMI) [Ratio] 23.8 kg/m2 [facility] 10-03-2023 15:59-0400 Body weight 73.02 kg [facility] 10-03-2023 15:59-0400 Diastolic blood pressure 72 mm[Hg] [facility] 10-03-2023 15:59-0400 Heart rate 64 /min [facility] 10-03-2023 15:59-0400 Respiratory rate 12 /min [facility] 10-03-2023 15:59-0400 Systolic blood pressure 119 mm[Hg] [facility] 06-14-2023 14:52-0500 Body height 175.26 cm [facility] 06-14-2023 14:52-0500 Body mass index (BMI) [Ratio] 25.2 kg/m2 [facility] 06-14-2023 14:52-0500 Body weight 77.67 kg [facility] 06-14-2023 14:52-0500 Diastolic blood pressure 77 mm[Hg] [facility] 06-14-2023 14:52-0500 Heart rate 66 /min [facility] 06-14-2023 14:52-0500 Systolic blood pressure 128 mm[Hg] [facility] 02-22-2023 13:30-0400 Body height 175.26 cm [facility] Other 02-22-2023 13:30-0400 Body mass index (BMI) [Ratio] 27.82 kg/m2 [employer] [facility] [employer] Other 02-22-2023 13:30-0400 Body weight 85.46 kg [employer] [facility] Other [email or web address] Other 02-22-2023 13:30-0400 Diastolic blood pressure 70 mm[Hg] [employer] [facility] Other [email or web address] Other 02-22-2023 13:30-0400 Respiratory rate 12 /min [employer] Other [email or web address] Other 02-22-2023 13:30-0400 Systolic blood pressure 109 mm[Hg] [employer] Other [email or web address] Other 08-14-2022 12:00-0400 Body height 175.26 cm [facility] Other [email or web address] Other 08-14-2022 12:00-0400 Body mass index (BMI) [Ratio] 28.29 kg/m2 [employer] [facility] [email or web address] Other 08-14-2022 12:00-0400 Body weight 86.91 kg [facility] Other [email or web address] Other 08-14-2022 12:00-0400 Diastolic blood pressure 80 mm[Hg] [employer] Other [email or web address] Other 08-14-2022 12:00-0400 Respiratory rate 20 /min [employer] Other [email or web address] Other 08-14-2022 12:00-0400 Systolic blood pressure 126 mm[Hg] [employer] Other [email or web address] Other Encounters Encounter Date Encounter Type Care Provider Facility Start: 04-30-2024 End: 04-30-2024 Sondra Casillas DPM Work Phone: [facility] Start: 04-30-2024 End: 04-30-2024 Bamboo flowsheet Dante Casillas DPM Work Phone: [facility] Start: 04-30-2024 End: 04-30-2024 Patient encounter procedure Dante Casillas DPM Work Phone: [facility] Comment on above: Pain due to onychomy cosis of toenails of both feet (Primary Dx); Venous insufficiency; Xerosis cutis Start: 04-30-2024 End: 04-30-2024 ambulatory DANTE CASILLAS Not Available Start: 12-13-2023 End: 12-13-2023 ambulatory [facility] Work Phone: Start: 12-13-2023 End: 12-13-2023 Patient encounter procedure [facility] Work Phone: Start: 12-12-2023 End: 12-12-2023 Bamboo flowsheet Dante Casillas DPM Work Phone: [facility] Start: 12-12-2023 End: 12-12-2023 Bamboo flowsheet Dante Casillas DPM Work Phone: [facility] Start: 12-12-2023 End: 12-12-2023 Patient encounter procedure Dante Casillas DPM Work Phone: [facility] Comment on above: Onychomycosis (Prima ry Dx); Toe pain, bilateral; Venous insufficiency Start: 12-12-2023 End: 12-12-2023 ambulatory DANTE CASILLAS Not Available Start: 12-04-2023 Non-patient / Non-visit [facility] Work Phone: Start: 10-23-2023 Non-patient / Non-visit [facility] Work Phone: Start: 10-03-2023 End: 10-03-2023 ambulatory [facility] Work Phone: Start: 10-03-2023 End: 10-03-2023 Patient encounter procedure [facility] Work Phone: Start: 09-27-2023 Non-patient / Non-visit [facility] Work Phone: Start: 09-26-2023 End: 09-26-2023 ambulatory DANTE CASILLAS Not Available Start: 09-05-2023 Non-patient / Non-visit [facility] Work Phone: Start: 08-20-2023 End: 09-02-2023 Evaluation and management of inpatient JAVI GLYNN [facility] Start: 08-20-2023 Non-patient / Non-visit [facility] Work Phone: Start: 06-20-2023 End: 06-20-2023 ambulatory DANTE CASILLAS Not Available Start: 06-14-2023 End: 06-14-2023 ambulatory [facility] Work Phone: Start: 06-14-2023 End: 06-14-2023 Patient encounter procedure [facility] Work Phone: Start: 04-26-2023 End: 04-26-2023 ambulatory Flex Isaacs Other [email or web address] Other Start: 04-26-2023 Telephone encounter Flex Isaacs [facility] Start: 04-05-2023 End: 04-05-2023 ambulatory Flex Ball Other [email or web address] Other Start: 04-05-2023 Telephone encounter Flex Ball [facility] Start: 03-19-2023 End: 03-19-2023 ambulatory Flex Ball Other [email or web address] Other Start: 03-19-2023 Telephone encounter Flex Isaacs [facility] Start: 03-07-2023 End: 03-07-2023 ambulatory Flex Isaacs Other [email or web address] Other Start: 03-07-2023 Home visit est pt mo d-hi severity 40 minutes Flex Isaacs [facility] Start: 03-06-2023 End: 03-06-2023 ambulatory Flex Isaacs Other [email or web address] Other Start: 03-06-2023 Telephone encounter Flex Isaacs [facility] Start: 03-05-2023 End: 03-05-2023 ambulatory Flex Isaacs Other [email or web address] Other Start: 03-05-2023 Telephone encounter Flex Isaacs [facility] Start: 02-28-2023 End: 02-28-2023 ambulatory Kamilla Vieira Other [email or web address] Other Start: 02-28-2023 Nursing evaluation o f patient and report Kamilla Vieira [facility] Start: 02-22-2023 End: 02-22-2023 ambulatory Flex Isaacs Other [email or web address] Other Start: 02-22-2023 Transitional care terence hunter srvc 14 day discharge Flex Isaacs [facility] Start: 02-20-2023 End: 02-20-2023 ambulatory Flex Isaacs Other [email or web address] Other Start: 02-20-2023 Telephone encounter Flex Isaacs [facility] Start: 02-11-2023 End: 02-11-2023 ambulatory Flex Isaacs Other [email or web address] Other Start: 02-11-2023 Telephone encounter Flex Isaacs [facility] Start: 01-03-2023 End: 01-03-2023 ambulatory Flex Isaacs Other [email or web address] Other Start: 01-03-2023 Telephone encounter Flxe Ball [facility] Start: 01-02-2023 End: 01-02-2023 ambulatory Flex Isaacs Other [email or web address] Other Start: 01-02-2023 Telephone encounter Flex Ball [facility] Start: 01-01-2023 End: 01-01-2023 ambulatory Flex Isaacs Other [email or web address] Other Start: 01-01-2023 Telephone encounter Flex Ball [facility] Start: 12-31-2022 End: 12-31-2022 ambulatory Flex Isaacs Other [email or web address] Other Start: 12-31-2022 Telephone encounter Flex Ball [facility] Start: 12-10-2022 End: 12-10-2022 ambulatory Flex Isaacs Other [email or web address] Other Start: 12-10-2022 Telephone encounter Flex Ball [facility] Start: 12-09-2022 End: 12-09-2022 ambulatory Flex Isaacs Other [email or web address] Other Start: 12-09-2022 Telephone encounter Flex Ball [facility] Start: 10-04-2022 End: 10-04-2022 ambulatory Flex Isaacs Other [email or web address] Other Start: 10-04-2022 Telephone encounter Flex Ball [facility] Start: 08-16-2022 End: 08-16-2022 ambulatory Flex Isaacs Other [email or web address] Other Start: 08-16-2022 Telephone encounter Flex Ball [facility] Start: 08-15-2022 Telephone encounter Flex Ball [facility] Start: 08-15-2022 End: 08-16-[address] FLEX ISAACS [email or web address] Other Start: 08-14-2022 End: 08-14-2022 ambulatory Flex Isaacs Other [email or web address] Other Start: 08-14-2022 Patient encounter procedure Flex [facility] Start: 05-20-2019 Adult health examination Solomon Isaacs Other [email or web address] Other Procedures Date Procedure Procedure Detail Performing Clinician Start: 07-03-2017 Diabetes mellitus screening Flex Isaacs Other Start: 11-15-2015 Screening for malign ant neoplasm of colon Flex Isaacs Other Screening for malign ant neoplasm of prostate Flex Isaacs Other Plan of Treatment Date Care Activity Detail Author Start: 07-16-2024 End: 07-16-2024 Patient encounter procedure 07/16/2024 9:10 AM EDT Procedure Visit [facility] [address] [facility] [address] [place] [address] Dante Casillas DPM [address] [address] [facility] Start: 04-30-2024 End: 04-30-2024 Patient encounter procedure 04/30/2024 9:00 AM EST Procedure Visit [facility] [address] [facility] [address] [place] [address] Dante Casillas DPM [address] [address] Pain due to onychomycosis of toenails of both feet (Primary Dx); Venous insufficiency; Xerosis cutis [facility] Comment on above: Pain due to onychomy cosis of toenails of both feet (Primary Dx); Venous insufficiency; Xerosis cutis Start: 02-27-2024 End: 02-27-2024 Patient encounter procedure 02/27/2024 9:50 AM EST Procedure Visit [facility] [address] [facility] [address] [place] [address] Dante Casillas DPM [address] [facility] [address] [place] [address] [facility] Start: 12-22-2023 Influenza vaccination Influenza Vacc ine (#1) [facility] Start: 12-12-2023 End: 12-12-2023 Patient encounter procedure 12/12/2023 10:00 AM EDT [facility] [address] [facility] [address] [place] [phone] Dante Casillas DPM [address] [address] Onychomycosis (Primary Dx); Toe pain, bilateral; Venous insufficiency [facility] Comment on above: Onychomycosis (Prima ry Dx); Toe pain, bilateral; Venous insufficiency Start: 07-03-2018 Pneumococcal Vaccine : 65+ Years (2 of 2 - PPSV23 or PCV20) Pneumococcal Vaccine: 65+ Years (2 of 2 - PPSV23 or PCV20) [facility] Start: 1940 Medicare Annual Well ness (AWV) Medicare Annual Wellness (AWV) [facility] XR Chest 2 Views [facility] Immunizations Immunization Date Immunization Notes Care Provider Fa [facility] 02-18-2024 influenza virus vaccine, unspecified formulation Dante Casillas [place] Work Phone: [facility] 02-28-2023 influenza, high dose seasonal, preservative-free Flex Isaacs Other [email or web address] Other 02-28-2023 influenza virus vaccine, unspecified formulation [facility] 04-11-2022 influenza, injectabl e, quadrivalent, preservative free Flex Isaacs Other [facility] 02-23-2021 COVID-19 Vaccine Moderna - Documentation Purposes Only Flex Isaacs Other [facility] 06-17-2020 COVID-19 Vaccine Moderna - Documentation Purposes Only Flex Isaacs Other [facility] 05-20-2020 COVID-19 Vaccine Moderna - Documentation Purposes Only Flex Isaacs Other [facility] 07-03-2017 pneumococcal conjuga te vaccine, 13 valent Flex Isaacs Other [facility] 07-03-2017 pneumococcal Conjuga te, unspecified formulation; Translations: [Need for prophylactic vaccination against Streptococcus pneumoniae (pneumococcus)] Flex Isaacs Other [email or web address] Other 03-07-2017 influenza virus vaccine, split virus (incl. purified surface antigen) Flex Isaacs Other [facility] Other 03-07-2017 influenza virus vaccine, unspecified formulation [facility] 03-28-2016 influenza virus vaccine, split virus (incl. purified surface antigen) Flex Isaacs Other [email or web address] Other 03-28-2016 influenza virus vaccine, unspecified formulation [facility] 03-08-2015 influenza virus vaccine, split virus (incl. purified surface antigen) Flex Isaacs Other [email or web address] Other 03-08-2015 influenza virus vaccine, unspecified formulation [facility] 04-09-2013 tetanus and diphther ia toxoids, adsorbed, preservative free, for adult use (5 Lf of tetanus toxoid and 2 Lf of diphtheria toxoid) Flex Isaacs Other [facility] 01-28-2013 tetanus and diphther ia toxoids, adsorbed, preservative free, for adult use (5 Lf of tetanus toxoid and 2 Lf of diphtheria toxoid) Flex Isaacs Other [facility] 03-29-2010 pneumococcal polysaccharide vaccine, 23 valent Flex Isaacs Other [facility] Payers Date Payer Category Payer Unknown [id number] 2018 Private Health Insurance [id number] 2018 Unknown [id number] 2004 Medicare [id number] 1959 Medicare [id number] 1938 Unknown [id number] 1938 Unknown [id number] 1938 Unknown [id number] 1938 Unknown [id number] 1938 Unknown [id number] 1938 Unknown [id number] Private Health Insurance [facility] [employer] [place] [id number] Social History Date Type Detail Facility Start: 09-26-2023 End: 12-12-2023 Sex Assigned At [facility] [employer] Other Start: 1940 Sex Assigned At Male [facility] Start: 12-13-2023 Tobacco smoking stat [facility] Never smoked tobacco (finding) [facility] Start: 10-19-2022 Tobacco smoking stat [facility] Ex-smoker [facility] History of tobacco use Current smoker [facility] History of tobacco use Cigarette Smoker [facility] Start: 10-19-2022 Tobacco use and exposure Smokeless tobacco non-user [facility] Start: 09-26-2023 End: 08-22-2024 Alcoholic beverage intake Lifetime non-drinker (finding) [facility] Start: 09-26-2023 End: 12-12-2023 History of Social function [facility] Start: 06-20-2023 Alcohol Comment caffeine intak e: 1-2 cups perday [facility] Start: 1940 Sex assigned at Not on file [facility] Clinical Notes 08-14-2022 to 04-30-2024 Dante Casillas, DPM - 04/30/2024 9:00 AM Dejuan Casillas, DPM - 12/12/2023 10:00 AM EDT Note Date & Type Note Facility 04-30-2024 History of Presen t illness Narrative Patient: Cheko Blake : 1940 PCP: Flex Isaacs MD SUBJECTIVE This is a 83 y.o. male that presents today with a CC of elongated, thick nails. Pt states nails have been elongated and thick for many years and cause pain with ambulation in shoegear. Pt has tried previous treatment with minimal relief. Pt presents today for nail care and treatment. Positive history of xerosis Allergies: No Known Allergies Past Medical History: Past Medical History: Diagnosis Date OM (onychomycosis) Venous insufficiency Medications: No current outpatient medications on file. Social History: Social History Socioeconomic History Marital status: Spouse name: Not on file Number of children: Not on file Years of education: Not on file Highest education level: Not on file Occupational History Not on file Tobacco Use Smoking status: Former Types: Cigarettes Smokeless tobacco: Never Vaping Use Vaping status: Unknown Substance and Sexual Activity Alcohol use: Never Comment: caffeine intake: 1-2 cups perday Drug use: Never Sexual activity: Defer Partners: Decline to Answer Other Topics Concern Not on file Social History Narrative Not on file Social Drivers of Health Financial Resource Strain: Not on file Food Insecurity: No Food Insecurity (08/21/2023) Re[facility] from [facility] Hunger Vital Sign Worried About Running Out of Food in the Last Year: Never true Ran Out of Food in the Last Year: Never true Transportation Needs: No Transportation Needs (08/21/2023) Received from [facility] PRAPARE - Transportation Lack of Transportation (Medical): No Lack of Transportation (Non-Medical): No Physical Activity: Not on file Stress: Not on file Social Connections: Not on file Intimate Partner Violence: Not on file Housing Stability: Low Risk (08/21/2023) Received from [facility] Housing Stability Vital Sign Unable to Pay for Housing in the Last Year: No Number of Places Lived in the Last Year: 1 Unstable Housing in the Last Year: No ROS: General: denies fever, chills, fatigue, malaise OBJECTIVE LE EXAM: DERM: Elongated thick yellow crumbly nails digits 1 through 10. Positive hair growth b/l feet.. Plus one pitting edema to bilateral ankles. Negative Dry and scaly skin to bilateral feet VASC: Positive palpable pedal pulses bilaterally NEURO: Gross sensation intact to bilateral feet ORTHO: Positive pain on palpation to nails 1 through 10 ASSESSMENT 1. Pain due to onychomycosis of toenails of both feet 2. Venous insufficiency 3. Xerosis cutis PLAN Discussed proper foot care with patient today. Debride nails in length and thickness digits 1 through 10 Patient education on condition and treatment of condition. Patient encouraged to continue with use of lotions and creams to feet with care provider present today Dante Casillas DPM documented in this encounter [facility] 12-12-2023 History of Presen t illness Narrative Patient: Cheko Blake : 1940 PCP: Flex Isaacs MD SUBJECTIVE This is a 83 y.o. male that presents today with a CC of elongated, thick nails. Pt states nails have been elongated and thick for many years and cause pain with ambulation in shoegear. Pt has tried previous treatment with minimal relief. Pt presents today for nail care and treatment. Patient states he had healed ulcerations and currently in senior care Allergies: No Known Allergies Past Medical History: Past Medical History: Diagnosis Date OM (onychomycosis) Venous insufficiency Medications: No current outpatient medications on file. Social History: Social History Socioeconomic History Marital status: Spouse name: Not on file Number of children: Not on file Years of education: Not on file Highest education level: Not on file Occupational History Not on file Tobacco Use Smoking status: Former Types: Cigarettes Smokeless tobacco: Never Vaping Use Vaping status: Unknown Substance and Sexual Activity Alcohol use: Never Comment: caffeine intake: 1-2 cups perday Drug use: Never Sexual activity: Defer Partners: Decline to Answer Other Topics Concern Not on file Social History Narrative Not on file Social Determinants of Health Financial Resource Strain: Not on file Food Insecurity: No Food Insecurity (08/21/2023) Received from [facility] Hunger Vital Sign Worried About Running Out of Food in the Last Year: Never true Ran Out of Food in the Last Year: Never true Transportation Needs: No Transportation Needs (08/21/2023) Received from [facility] PRAPARE - Transportation Lack of Transportation (Medical): No Lack of Transportation (Non-Medical): No Physical Activity: Not on file Stress: Not on file Social Connections: Not on file Intimate Partner Violence: Not on file Housing Stability: Low Risk (08/21/2023) Received from [facility] Housing Stability Vital Sign Unable to Pay for Housing in the Last Year: No Number of Places Lived in the Last Year: 1 Unstable Housing in the Last Year: No ROS: General: denies fever, chills, fatigue, malaise OBJECTIVE LE EXAM: DERM: Elongated thick yellow crumbly nails digits 1 through 10. Positive hair growth b/l feet.. Plus one pitting edema to bilateral ankles. Negative Dry and scaly skin to bilateral feet VASC: Positive palpable pedal pulses bilaterally NEURO: Gross sensation intact to bilateral feet ORTHO: Positive pain on palpation to nails 1 through 10 ASSESSMENT 1. Onychomycosis 2. Toe pain, bilateral 3. Venous insufficiency PLAN Discussed proper foot care with patient today. Debride nails in length and thickness digits 1 through 10 Patient education on condition and treatment of condition. Patient encouraged to continue with use of lotions and creams to feet with care provider present today Dante Casillas DPM documented in this encounter [facility] 04-26-2023 Evaluation note Encounter Date Diagnosis Assessment Notes Apr, Acute deep vein thrombosis (DVT) of right peroneal vein (ICD-10 - I82.451) [email or web address] Other 11-16-2023 Evaluation note* Encounter Date Diagnosis [...] for 6months. Check DDimer and venous US. [email or web address] Other 11-14-2023 Evaluation note* Encounter Date Diagnosis Assessment Notes Treatment Notes Treatment Clinical Notes Feb, Closed fracture of one rib of right side with routine healing, subsequent encounter (ICD-10 - S22.31XD) [email or web address] Other 11-09-2023 Evaluation note* Encounter Date Diagnosis Assessment Notes Treatment Notes Treatment Clinical Notes Feb, Need for vaccination (ICD-10 - Z23) [email or web address] Other 11-03-2023 Evaluation note* Encounter Date Diagnosis [...] - E44.0) Protein/calorie supplements daily. Monitor weight. [email or web address] Other 08-21-2023 Evaluation note* Encounter Date Diagnosis Assessment Notes Treatment Notes Treatment Clinical Notes Nov, Acute deep vein thrombosis (DVT) of left peroneal vein (ICD-10 - I82.452) Nov, Pressure injury of deep tissue of sacral region (ICD-10 - L89.156) Nov, Skin ulcer of heel, limited to breakdown of skin, unspecified laterality (ICD-10 - L97.401) [email or web address] Other 04-26-2023 NotePROCEDURE: XR HAND MEEK MIN [...] Electronically authenticated by: ROHINI PEARSON Date: 2022-08-15 11:57[facility]04-25-2023 Evaluation note* Encounter Date Diagnosis Assessment [...] Jul, Fatigue, unspecified type (ICD-10 - R53.83) [facility] Other Evaluation noteNo [facility] Other Evaluation note* Diagnosis Onset Date Resolution Status Anemia acute Chronic venous insufficiency acute Lumbar spondylosis acute Pharyngoesophageal dysphagia acute Pulmonary hypertension acute Right rib fracture acute [facility] Work Phone: Evaluation note* Diagnosis Onset Date Resolution Status Chronic bronchitis acute Chronic venous insufficiency acute HAP (hospital-acquired pneumonia) acute Hx of small bowel obstruction acute Lumbar spondylosis acute Pharyngoesophageal dysphagia acute Pulmonary hypertension acute [facility] Work Phone: Evaluation note* Diagnosis Onset [...] acute Medicare annual wellness visit, subsequent noneactive [facility] Work Phone: Evaluation note* Diagnosis Onychomycosis- Primary Dermatophytosis of nail Toe pain, bilateral Venous insufficiency Unspecified venous (peripheral) insufficiency [facility] Pain due to onychomycosis of toenails of both feet- Primary Venous insufficiency Unspecified venous (peripheral) insufficiency Xerosis cutis Other specified disease of sebaceous glands [facility] - Reported* Type Description Date Medical History Diarrhea Medical History Chronic venous insufficiency Medical History 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 Medical History Seasonal allergic rhinitis due t o pollen Surgical History CHOLECYSTECTOMY Surgical History APPENDECTOMY Surgical History TONSILLECTOMY Surgical History LEFT KNEE ARTHROSCOPY Hospitalization History SEE SURGICAL [email or web address] Other [employer] general Narrative - Reported* Type Description Date [...] LEFT KNEE ARTHROSCOPY Hospitalization History SEE SURGICAL [email or web address] Other [employer] general Narrative - Reported* Type Description Date [...] LEFT KNEE ARTHROSCOPY Hospitalization History SEE SURGICAL [email or web address] Other [employer] general Narrative - Reported* Type Description Date [...] 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 Hospitalization History SEE SURGICAL [email or web address] Other [employer] general Narrative - Reported* Type Description Date [...] 01/09 23 Hospitalization History SEE SURGICAL HX [email or web address] Other Summary Purpose Family History No Family [...] FOR VISIT (unrecogniz ed section and content) Reason Comments Toenail Care Non DM Nails Reason Comments Toenail Care Non dm nail care (unrecognized sect ion and content) No Status Records FoundNo Status Records FoundNo Status Records Found INFORMATION SOURCE (unrecogn ized section and content) DATE CREATED AUTHOR 08/19/2022 [facility] DATE CREATED AUTHOR AUTHOR'S ORGANIZ ATION 10/12/2023 [facility] DATE CREATED AUTHOR AUTHOR'S ORGANIZ ATION 05/05/2024 [facility] [employer] Care Teams (unrecognized sec tion and content) Team Status: Active Member Role Status Dates Flex Isaacs DO Primary Care Provider Active Team Status: Active Member Role Status Dates Flex Isaacs DO Primary Care Provide r, Attending Provider Active Start: August 20, 2023 Team Status: Active Member Role Status Dates Flex Ball , DO Primary Care Provide r, Attending Provider Active Start: September 05, 2023 Team Status: Active Member Role Status Dates Flex Ferny , DO Primary Care Provider Active Start: September 27, 2023 DONALD Scruggs Attending Provider Active St art: September 27, 2023 Team Status: Inactive Member Role Status Dates Flex Isaacs , DO Primary Care Provide r, Attending Provider Active Start: October 03, 2023 End: October 03, 2023 Team Status: Inactive Member Role Status Dates Flex Ferny , DO Primary Care Provide r, Attending Provider Active Start: June 14, 2023 End: June 14, 2023 Team Status: Active Member Role Status Dates Flex Ferny , DO Primary Care Provide r, Attending Provider Active Start: October 23, 2023 Team Status: Active Member Role Status Dates Flex Ferny , DO Primary Care Provide r, Attending Provider Active Start: December 04, 2023 Team Status: Inactive Member Role Status Dates Flex Isaacs , DO Primary Care Provide r, Attending Provider Active Start: December 13, 2023 End: December 13, 2023 Device Processing Engineer Relationship Specialty Start Date End Date Flex Isaacs MD [address] [place], [place] [id number] PCP - General Internal Medicine 04/11/[address] [facility] [place] [address] PCP - ACO Reach 06/21/23 Device Processing Engineer Relationship Specialty [place] [address] [place] [phone] PCP - General Internal Medicine 04/11/23 Sahra Mishra MD [address] [place] [address] PCP - ACO Reach 06/21/23 Device Processing Engineer Relationship Specialty Start Date End Date Flex Isaacs MD [address] [place] [address] PCP - General Internal Medicine 04/11/23 Sahra Mishra MD [address] [place] [address] PCP - ACO Reach 06/21/23 Device Processing Engineer Relationship Specialty Start Date End Date Flex Isaacs MD [address] [facility] [place] [phone] PCP - General Internal Medicine 04/11/23 Sahra Mishra MD [address] [place] [address] PCP - ACO Reach 06/21/23 Goals (unrecognized section and content) Goals may [...] BE BASED ON THE PRIMARY CLINICAL RECORDS. [facility] [employer] [facility]. provides no warranty or guarantee of the accuracy or completeness of information in this document.
[2024-05-26 14:02] LABS: Percent Iron Saturation 26.8 %
[2024-05-26 14:05] LABS: Alanine Aminotransferase 49 U/L (16-63); Albumin Globulin Ratio 0.6; Albumin Level 2.7 g/dL (3.4-5.0); Alkaline Phosphatase 150 U/L (46-116); Anion Gap 11.2; Aspartate Amino Transferase 57 U/L (15-37); BUN Creatinine Ratio 34.5; Bilirubin Total 0.8 mg/dL (0.2-1.0); Calcium 8.9 mg/dL (8.5-10.1); Carbon Dioxide 32.2 mmol/L (21.0-32.0); Chloride 103 mmol/L (98-107); Estimated GFR (African America >60 (>=60 mL/min/1.73m^2); Estimated GFR (Non-African Ame >60 (>=60 mL/min/1.73m^2); Globulin 4.9 g/dL; Glucose 81 mg/dL (74-106); Potassium 4.4 mmol/L (3.5-5.1); Sodium 142 mmol/L (136-145); Total Protein 7.6 g/dL (6.4-8.2)
[2024-05-27 04:07] LABS: Vitamin B12 685 pg/mL (232-1245)
== END 2024-05-26 13:29 | disposition home or self-care (01) ==
LOC: LAB 13:28
PROVIDERS: PCP Internal Medicine; Visit Provider Internal Medicine
DX: I27.20 Pulmonary hypertension, unspecified (principal); I87.2 Venous insufficiency (chronic) (peripheral); D64.9 Anemia, unspecified; N40.1 Benign prostatic hyperplasia with lower urinary tract symptoms; R39.14 Feeling of incomplete bladder emptying
CPT/HCPCS: 36415; 80053; 82607; 82728; 82746; 83540; 83550; 85025

== ENCOUNTER 2024-07-16 09:46 | Outpatient (OUT) | payer MEDICARE, OTHER, SELFPAY ==
[2024-07-16 09:58] LABS: Basophils Percent Auto 0.3 % (0.2-2.0); Eosinophils Absolute Auto 0.1 10^3/uL (0.0-0.7); Eosinophils Percent Auto 1.6 % (0.9-7.0); Hematocrit 33.2 % (42.0-54.0); Hemoglobin 11.2 g/dL (14.0-18.0); Immature Granulocytes Abs Auto 0.01 10^3/uL (0.00-0.03); Immature Granulocytes Pct Auto 0.3 % (0.0-0.5); Lymphocytes Percent Auto 27.2 % (20.5-60.0); Mean Corpuscular HGB Conc 33.7 g/dL (29.9-35.2); Mean Corpuscular Hemoglobin 31.5 pg (25.9-34.0); Mean Corpuscular Volume 93.3 fL (80.0-94.0); Mean Platelet Volume 9.9 fL (9.5-13.5); Monocytes Absolute Auto 0.3 10^3/uL (0.3-0.8); Monocytes Percent Auto 6.7 % (1.7-12.0); Neutrophils Absolute Auto 2.4 10^3/uL (1.4-6.5); Neutrophils Percent Auto 63.9 % (43.0-75.0); Platelet Count 131 10^3/uL (150-450); Red Blood Count 3.56 10^6/uL (4.70-6.10); Red Cell Distribution Width 17.1 % (11.0-15.0); White Blood Count 3.8 10^3/uL (4.0-11.0)
--- OUTSIDE RECORDS SUMMARY | 2024-07-16 10:03 | XMS_ITS | CCD ---
Author Organization [facility] Care Team Providers Care Od Grinder Operator Name Role Phone Flex Isaacs Unavailable DR FLEX ISAACS Admitting Unavailable FERNY, DR MENDEZ Primary Care Unavailable FERNY, DR MENDEZ Consulting Unavailable FERNY, DR MENDEZ Attending Unavailable Rohini Pearson Consulting Unavailable Kamilla Vieira Unavailable [phone] JAVI GLYNN Consulting Unavailable ANEL BENSON Admitting Unavail able ANEL BENSON Attending Unavail able FLEX ISAACS Primary Care Unavailable JESSICA PIERCE Consulting Unavailable CESAR PHILLIPS Consulting Unavailable DESTINEE MERCADO Consulting Unavailable MICH DENT Consulting Unavailable Flex Isaacs MD Primary Care Provider Sahra Mishra MD Unavailable Sahra Mishra MD Unavailable DANTE CASILLAS Attending Unavailable DANTE CASILLAS Attending Unavailable DANTE CASILLAS Attending Unavailable DANTE CASILLAS Attending Unavailable Allergies Allergy Classification Reported Allergen(s) Allergy Type Date of Onset Reaction(s) Facility (8 sources) patient allergy list reviewed by nurse or physicia Propensity to adverse reactions 5 Comment:Done MC10 Other Medications Current Medications Medication Drug Class(es) Dates Sig (Normalized) Sig (Original) albuterol 0.417 mg/ml inhalation solution (7 sources) beta2-Adrenergic Agonist Start: 10-03-2023 take 1.25 mg by inhalation twice daily Albuterol Sulfate 1.25 mg/3 mL solution for nebulization Active 1.25 MG INHALATION Twice daily 225 30 October 03, 2023 3:54pm Start: 10-03-2023 End: 10-03-2023 take 1.25 mg by inhalation twice daily Albuterol Sulfate Discontinued 1.25 MG INHALATION Twice daily 180 October 03, 2023 12:00am October 03, 2023 4:55pm Start: 10-03-2023 take 1.25 mg by inha lation twice daily Albuterol Sulfate Active 1.25 MG INHALATION Twice daily 180 30 October 03, 2023 12:00am Start: 09-27-2023 End: 10-03-2023 Albuterol Sulfate 2.5 mg/0.5 mL solution for nebulization Discontinued 2.5 MG INHALATION Q20M September 26, 2023 11:00pm October 03, 2023 3:05pm for up to 3 doses aspirin 81 mg delayed release oral tablet (6 sources) Platelet Aggregation Inhibitor, Nonsteroidal Anti-inflammatory Drug Start: 09-27-2023 End: 09-27-2023 take 1 tablet by mouth once daily Aspirin (Adult Aspirin Regimen) 81 mg tablet,delayed release (DR/EC) Active 81 MG PO Daily 30 September 27, 2023 12:30pm Nebulizer Accessories (Adult Aerosol Mask) misc (2 sources) Start: 10-17-2023 Nebulizer Accessories (Adult Aerosol Mask) misc Active 0 .Route 1 October 16, 2023 11:00pm As directed Start: 10-17-2023 Nebulizer Acce ssories (Adult Aerosol Mask) misc Active 0 .Route 1 October 17, 2023 12:00am As directed Neubulizer Compressor or Dev ice (2 sources) Start: 10-04-2023 Neubulizer Com pressor or Device Active 0 .Route .MEDSUPPLY October 03, 2023 11:00pm As directed Start: 10-04-2023 Neubulizer Com pressor or Device Active 0 .Route .MEDSUPPLY October 04, 2023 12:00am As directed prednisoLONE 1.2 mg/ml ophthalmic suspension (3 sources) Corticosteroid Start: 10-03-2023 take 1 drop(s) into the eye(s) three times daily Prednisolone Acetate 0.12 % drops,suspension Active 1 DROPS EYE-BOTH Three times daily October 02, 2023 11:00pm Start: 10-03-2023 take 1 drop(s) into the eye(s) three times daily Prednisolone Acetate Active 1 DROPS EYE-BOTH Three times daily October 03, 2023 12:00am Sennosides-Docusate Sodium (2 sources) Start: 09-27-2023 take 2 tablets by mouth once daily at bedtime Sennosides-Docusate Sodium Active 2 TAB-CAP PO Daily at bedtime September 27, 2023 12:00am Sennosides-Docusate Sodium 8.6-50 mg capsule (1 source) Start: 09-27-2023 take 2 tablets by mouth once daily at bedtime Sennosides-Docusate Sodium 8.6-50 mg capsule Active 2 TAB-CAP PO Daily at bedtime September 26, 2023 11:00pm tamsulosin hydrochloride 0.4 mg oral capsule (9 sources) alpha-Adrene rgic Anita Start: 09-27-2023 End: 06-12-2024 take 1 capsule by mouth once daily Tamsulosin (Flomax) 0.4 mg capsule Active 0.4 MG PO Daily 90 90 June 12, 2024 3:29pm Tylenol 8 Hour 650 MG (8 sources) take 2 tablets by mouth every eight hours as needed Tylenol 8 Hour 650 MG 2 tablets as needed Orally every 8 hrs Active Vitamin A (6 sources) Vitamin A Start: 10-03-2023 Vitamin A Active NOTAPPLIC October 03, 2023 12:00am Start: 06-14-2023 End: 09-27-2023 take 1 tablet by mouth once daily Vitamin A Acetate 3,000 mcg (10,000 unit) tablet, sublingual Discontinued MCG PO Daily June 14, 2023 12:00am September 27, 2023 12:24pm Vitamin A 2,400 mcg capsule (1 source) Start: 10-03-2023 Vitamin A 2,40 0 mcg capsule Active NOTAPPLIC October 02, 2023 11:00pm Completed/Discontinued Medications Medication Drug Class(es) Dates Sig (Normalized) Sig (Original) acetaminophen 500 mg oral tablet (19 sources) Start: 09-27-2023 End: 10-03-2023 take 1 tablet by mouth every six hours as needed Acetaminophen (Tylenol Extra Strength) 500 mg tablet Discontinued 500 MG PO Every 6 hours as needed September 26, 2023 11:00pm October 03, 2023 3:05pm Start: 06-12-2023 End: 06-14-2023 Acetaminophen (Tylenol Arthr itis Pain) 650 mg tablet extended release Discontinued 1300 MG PO Every 8 hours as needed June 12, 2023 12:00am June 14, 2023 3:03pm take 1 capsule by [facility] every six hours Acetaminophen 500 MG 1 capsule as needed Orally every 6 hrs Active take 2 tablets by [facility] every eight hours Tylenol 8 Hour 650 MG 2 tablets as needed Orally every 8 hrs Active Albuterol Sulfate 1.25 mg/3 mL solution for nebulization (1 source) Start: 10-03-2023 End: 10-03-2023 take 1.25 mg by inhalation twice daily Albuterol Sulfate 1.25 mg/3 mL solution for nebulization Discontinued 1.25 MG INHALATION Twice daily October 02, 2023 11:00pm October 03, 2023 3:55pm apixaban 5 mg oral tablet (18 sources) Factor Xa Inhibitor Start: 06-14-2023 End: 09-27-2023 take 1 tablet by mouth once Apixaban 5 mg tablet Discontinued 5 MG PO Once June 14, 2023 3:02pm September 27, 2023 12:23pm Start: 06-12-2023 End: 06-14-2023 take 1 tablet by mouth twice daily Apixaban 5 mg tablet Discontinued 5 MG PO Twice daily June 12, 2023 12:00am June 14, 2023 3:05pm take 1 tablet by [facility] every twelve hours Eliquis 5 MG 1 tablet Orally Twice a day for 30 days Active benzonatate 200 mg oral capsule (3 sources) Non-narcotic Antitussive Start: 09-27-2023 End: 10-03-2023 take 1 capsule by mouth three times daily Benzonatate 200 mg capsule Discontinued 200 MG PO Three times daily September 26, 2023 11:00pm October 03, 2023 3:05pm folic acid 1 mg oral tablet (4 sources) Start: 12-05-2023 End: 01-03-2024 take 1 tablet by mouth once daily Folic Acid 1 mg tablet Discontinued 1 MG PO Daily January 02, 2024 5:05pm January 03, 2024 8:56am furosemide 20 mg oral tablet (20 sources) Loop Diuretic Start: 06-14-2023 End: 06-12-2024 take 1 tablet by mouth every other day Furosemide 20 mg tablet Discontinued 20 MG PO .QOD 15 September 27, 2023 12:28pm June 12, 2024 3:29pm Start: 06-12-2023 End: 06-14-2023 Furosemide 20 mg tablet Disc ontinued 20 MG PO Every 48 hours June 12, 2023 12:00am June 14, 2023 3:05pm take 1 tablet by elly th every other day Furosemide 20 MG 1 tablet Orally every other day Active take 1 tablet by elly th every twenty-four hours Furosemide 20 MG 1 tablet Orally Once a day Active melatonin 10 mg oral capsule (3 sources) Start: 09-27-2023 End: 10-03-2023 take 1 capsule by mouth once daily at bedtime as needed Melatonin 10 mg capsule Discontinued 10 MG PO Daily at bedtime as needed September 26, 2023 11:00pm October 03, 2023 3:06pm naproxen sodium 220 mg oral capsule (4 sources) Nonsteroidal Anti-inflammatory Drug Start: 06-14-2023 End: 09-27-2023 take 1 capsule by mouth every twelve hours as needed Naproxen Sodium 220 mg capsule Discontinued 220 MG PO Every 12 hours as needed June 14, 2023 12:00am September 27, 2023 12:24pm ondansetron 4 mg disintegrating oral tablet (3 sources) Serotonin-3 Receptor Antagonist Start: 09-27-2023 End: 10-03-2023 take 1 tablet by mouth every eight hours Ondansetron 4 mg tablet,disintegrati ng Discontinued 4 MG PO Every 8 hours September 26, 2023 11:00pm October 03, 2023 3:06pm polyethylene glycol 3350 46868 mg powder for oral solution (3 sources) Osmotic Laxative Start: 09-27-2023 End: 10-03-2023 Polyethylene Glycol 3350 (Miralax) 17 gram/dose powder Discontinued 17 GM PO Daily as needed September 26, 2023 11:00pm October 03, 2023 3:06pm polysaccharide iron complex 150 mg oral capsule (3 sources) Start: 12-05-2023 End: 06-12-2024 Polysaccharide Iron Complex (Ferrex 150) 150 mg iron capsule Discontinued 150 MG PO .QOD 90 90 January 03, 2024 8:56am June 12, 2024 3:29pm potassium citrate 10 meq extended release oral tablet (9 sources) Start: 09-27-2023 End: 10-03-2023 take 1 tablet by mouth once daily Potassium Citrate 10 mEq (1,080 mg) tablet extended release Discontinued 10 MEQ PO Daily September 27, 2023 12:29pm October 03, 2023 3:06pm Psyllium (13 sources) Start: 06-12-2023 End: 06-14-2023 [...] as needed Orally Once a day Active Psyllium packet (1 source) Start: 06-12-2023 End: 06-14-2023 take 8 [oz_av] by mouth once daily as needed Psyllium packet Discontinued 1 PACKET PO Daily as needed June 12, 2023 12:00am June 14, 2023 3:03pm mix into at least 8 oz of water or juice before administering Problems Active Problems Problem Classification Problem Date Documented Date Episodic/Chronic Acute cerebrovascular disease (4 sources) Cerebrovascular accident; Translations: [Cerebral infarction, unspecified] Onset: 3 11-28-2022 Chronic Chronic obstructive pulmonary disease and bronchiectasis (7 sources) Chronic bronchitis; Translations: [Unspecified chronic bronchitis] 10-03-2023 Chronic Chronic ulcer of skin (14 sources) 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; Translations: [Pressure ulcer of sacral region, stage 1] Chronic Deficiency and other anemia (12 sources) Anemia; Translations: [Anemia, unspecified] Onset: 5 06-13-2023 Episodic Deficiency and other anemia (2 sources) Anemia, unspecified; Translations: [Anemia, unspecified] 06-14-2023 Episodic Fracture of neck of femur (hip) (1 source) Fracture of unspecified part of neck of left femur, subsequent encounter for closed fracture with routine healing Episodic Fracture of upper limb (1 source) Fracture of clavicle; Translations: [Fracture of unspecified part of unspecified clavicle, initial encounter for closed fracture] 02-17-2024 Episodic Genitourinary symptoms and ill-defined conditions (1 [...] 3 Episodic Other aftercare (2 sources) Other [facility] (current) drug therapy; 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] Onset: 3 Episodic Other and unspecified benign neoplasm (8 sources) Benign neoplasm of skin; Translations: [Benign neoplasm of skin, site unspecified] Episodic Other diseases of veins and lymphatics (20 sources) Peripheral venous insufficiency; Translations: [Venous insufficiency (chronic) (peripheral)] Onset: 3 06-12-2023 Episodic Other diseases of veins and lymphatics (6 sources) Venous insufficiency (chronic) (peripheral); Translations: [Venous [...] fracture with routine healing Episodic Other fractures (4 sources) Fracture of right rib; Translations: [Fracture of one rib, right side, initial encounter for closed fracture] 06-13-2023 Episodic Other fractures (1 source) Fracture of one rib, right side, initial encounter for closed fracture; Translations: [Closed fracture of rib(s), unspecified] 06-14-2023 Episodic Other gastrointestinal disorders (20 sources) Diarrhea; Translations: [Diarrhea, unspecified] Episodic Other gastrointestinal disorders (14 sources) Dysphagia; Translations: [Dysphagia, pharyngoesophageal phase] 06-13-2023 Episodic Other gastrointestinal disorders (4 sources) Dysphagia, pharyngoesophageal phase; Translations: [Dysphagia, pharyngoesophageal phase] Episodic Other gastrointestinal disorders (1 source) Diarrhea, unspecified; Translations: [Diarrhea] Episodic Other gastrointestinal disorders (5 sources) Personal history of other diseases of [...] rhinitis; Translations: [Other seasonal allergic rhinitis] Onset: Chronic Other upper respiratory disease (8 sources) Allergic rhinitis; Translations: [Allergic rhinitis, unspecified] Chronic Pneumonia (except that caused by tuberculosis or sexually transmitted disease) (2 sources) Hospital acquired pneumonia; Translations: [Pneumonia, unspecified organism] 10-02-2023 Episodic Pulmonary heart disease (20 sources) Pulmonary hypertension; Translations: [Pulmonary hypertension, unspecified] [...] [Pain in right toe(s)] 12-08-2023 Episodic Other gastrointestinal disorders (8 sources) Other [...] Range Facility Basophils Auto (Bld) [#/Vol] on 05-26-2024 Basophils (Bld) [#/Vol] Automated basophil count 0.0-0.1 [facility] Basophils/100 WBC Auto (Bld) on 05-26-2024 Basophils/100 WBC (Bld) Automated basophil % 0.2-2.0 [facility] Eosinophils/100 WBC Auto (Bl d)on 05-26-2024 Eosinophils/100 WBC (Bld) Automated eosinophil % 0.9-7.0 [facility] Erythrocyte distribution wid th Auto (RBC) [Ratio]on 05-26-2024 Erythrocyte distribution width (RBC) [Ratio] Erythrocyte distribution width [Ratio] by Automated count High 11.0-15.0 [facility] Estimated glomerular filtrat ion rate (GFR) non- Americanon 05-26-2024 GFR/1.73 sq M.predicted among non-blacks MDRD (S/P/Bld) [Vol rate/Area] Estimated glomerular filtration rate (GFR) non- >=60 mL/min/1.73m 2 [facility] Globulin Calc (S) [Mass/Vol] on 05-26-2024 Globulin (S) [Mass/Vol] Serum globulin measurement by calculation (mass/volume) [facility] Hematocrit Auto (Bld) [Volum e fraction]on 05-26-2024 Hematocrit (Bld) [Volume fraction] Hematocrit [Volume Fraction] of Blood by Automated count Low 42.0-54.0 [facility] Hemoglobin [Mass/volume] in Bloodon 05-26-2024 Hemoglobin (Bld) [Mass/Vol] Hemoglobin [Mass/volume] in Blood Low 14.0-18.0 [facility] Iron binding capacity [Mass/ volume] in Serum or Plasmaon 05-26-2024 Iron binding capacity [Mass/Vol] Iron binding capacity [Mass/volume] in Serum or Plasma Low 250.0-450.0 [facility] Iron saturation [Mass Fracti on] in Serum or Plasmaon 05-26-2024 Iron saturation [Mass fraction] Iron saturation [Mass Fraction] in Serum or Plasma [facility] Laboratory - Chemistry and C hemistry - challengeon 05-26-2024 Albumin [Mass/Vol] 2.7 g/dL Low 3.4-5.0 [facility] ALP [Catalytic activity/Vol] 150 U/L High 46-116 [facility] ALT [Catalytic activity/Vol] 49 U/L 16-63 [facility] AST [Catalytic activity/Vol] 57 U/L High 15-37 [facility] Bilirubin [Mass/Vol] 0.8 mg/dL 0.2-1.0 [facility] Calcium [Mass/Vol] 8.9 mg/dL 8.5-10.1 [facility] Chloride [Moles/Vol] 103 mmol/L 98-107 [facility] CO2 [Moles/Vol] 32.2 mmol/L High 21.0-32.0 [facility] Cobalamin (Vitamin B12) [Mass/Vol] 685 pg/mL 232-1245 [facility] Comment on above: Performed at: - [address] [id number] Director: Jackson Collins PhD, Phone: [phone] Creatinine [Mass/Vol] 0.84 mg/dL 0.70-1.30 [facility] Ferritin [Mass/Vol] 276.0 ng/mL 26.0-388.0 [facility] GFR/1.73 sq M.predicted MDRD (S/P/Bld) [Vol rate/Area] mL/min/{1.73_m2} >=60 mL/min/1.73m 2 [facility] Glucose [Mass/Vol] 81 mg/dL 74-106 [facility] Iron [Mass/Vol] 64.0 ug/dL Low 65.0-175.0 [facility] Potassium [Moles/Vol] 4.4 mmol/L 3.5-5.1 [facility] Protein [Mass/Vol] 7.6 g/dL 6.4-8.2 [facility] Sodium [Moles/Vol] 142 mmol/L 136-145 [facility] Urea nitrogen [Mass/Vol] 29.0 mg/dL High 7.0-18.0 [facility] Urea nitrogen/Creatinine [Mass ratio] 34.5 mg/mg [facility] Laboratory - Hematology and Cell countson 05-26-2024 Immature granulocytes/100 WBC (Bld) 0.2 % 0.0-0.5 [facility] Leukocytes [#/volume] correc александр for nucleated erythrocytes in Blood by Automated counon 05-26-2024 WBC corrected for nucl RBC Auto (Bld) [#/Vol] Leukocytes [#/volume] corrected for nucleated erythrocytes in Blood by Automated coun 4.0-11.0 [facility] Lymphocytes Auto (Bld) [#/Vo l]on 05-26-2024 Lymphocytes (Bld) [#/Vol] Lymphocytes [#/volume] in Blood by Automated count 1.2-3.8 [facility] Lymphocytes/100 WBC Auto (Bl d)on 05-26-2024 Lymphocytes/100 WBC (Bld) Lymphocytes/100 leukocytes in Blood by Automated count 20.5-60.0 [facility] MCH Auto (RBC) [Entitic mass ]on 05-26-2024 MCH (RBC) [Entitic mass] MCH [Entitic mass] by Automated count 25.9-34.0 [facility] MCHC Auto (RBC) [Mass/Vol]on 05-26-2024 MCHC (RBC) [Mass/Vol] MCHC [Mass/volume] by Automated count 29.9-35.2 [facility] MCV Auto (RBC) [Entitic vol] on 05-26-2024 MCV (RBC) [Entitic vol] MCV [Entitic volume] by Automated count 80.0-94.0 [facility] Monocytes Auto (Bld) [#/Vol] on 05-26-2024 Monocytes (Bld) [#/Vol] Automated blood monocyte count 0.3-0.8 [facility] Monocytes/100 WBC Auto (Bld) on 05-26-2024 Monocytes/100 WBC (Bld) Automated monocyte % 1.7-12.0 [facility] Neutrophils Auto (Bld) [#/Vo l]on 05-26-2024 Neutrophils (Bld) [#/Vol] Neutrophils [#/volume] in Blood by Automated count 1.4-6.5 [facility] Neutrophils/100 WBC Auto (Bl d)on 05-26-2024 Neutrophils/100 WBC (Bld) Automated neutrophil % 43.0-75.0 [facility] No Panel Informationon 05-26 Eosinophils # (Auto) 0.1 10 3/uL 0.0-0.7 [facility] Folate 32.20 ng/mL 8.60-58.90 [facility] Immature Granulocyte # (Auto) 0.01 10 3/uL 0.00-0.03 [facility] Platelet mean volume Auto (B ld) [Entitic vol]on 05-26-2024 Platelet mean volume (Bld) [Entitic vol] Platelet mean volume [Entitic volume] in Blood by Automated count 9.5-13.5 [facility] Platelets Auto (Bld) [#/Vol] on 05-26-2024 Platelets (Bld) [#/Vol] Platelets [#/volume] in Blood by Automated count 150-450 [facility] RBC Auto (Bld) [#/Vol]on RBC (Bld) [#/Vol] Erythrocytes [#/volume] in Blood by Automated count Low 4.70-6.10 [facility] Serum or plasma albumin/glob ulin mass ratioon 05-26-2024 Albumin/Globulin [Mass ratio] Serum or plasma albumin/globulin mass ratio [facility] Serum or plasma anion gap de terminationon 05-26-2024 Anion gap [Moles/Vol] Serum or plasma anion gap determination [facility] Basophils Auto (Bld) [#/Vol] on 12-04-2023 Basophils (Bld) [#/Vol] 0.0 10 3/uL 0.0-0.1 [facility] Basophils/100 WBC Auto (Bld) on 12-04-2023 Basophils/100 WBC (Bld) 0.5 % 0.2-2.0 [facility] Eosinophils/100 WBC Auto (Bl d)on 12-04-2023 Eosinophils/100 WBC (Bld) 3.0 % 0.9-7.0 [facility] Erythrocyte distribution wid th Auto (RBC) [Ratio]on 12-04-2023 Erythrocyte distribution width (RBC) [Ratio] 15.5 % High 11.0-15.0 [facility] Estimated glomerular filtrat ion rate (GFR) non- Americanon 12-04-2023 GFR/1.73 sq M.predicted among non-blacks MDRD (S/P/Bld) [Vol rate/Area] mL/min/{1.73_m2} >=60 [facility] Globulin Calc (S) [Mass/Vol] on 12-04-2023 Globulin (S) [Mass/Vol] 4.9 g/dL [facility] Hematocrit Auto (Bld) [Volum e fraction]on 12-04-2023 Hematocrit (Bld) [Volume fraction] 36.3 % Low 42.0-54.0 [facility] Hemoglobin [Mass/volume] in Bloodon 12-04-2023 Hemoglobin (Bld) [Mass/Vol] 11.8 g/dL Low 14.0-18.0 [facility] Iron binding capacity [Mass/ volume] in Serum or Plasmaon 12-04-2023 Iron binding capacity [Mass/Vol] 293.0 ug/dL 250.0-450.0 [facility] Iron saturation [Mass Fracti on] in Serum or Plasmaon 12-04-2023 Iron saturation [Mass fraction] 18.1 % [facility] Laboratory - Chemistry and C hemistry - challengeon 12-04-2023 Albumin [Mass/Vol] 2.7 g/dL Low 3.4-5.0 [facility] ALP [Catalytic activity/Vol] 98 U/L 46-116 [facility] ALT [Catalytic activity/Vol] 43 U/L 16-63 [facility] AST [Catalytic activity/Vol] 49 U/L High 15-37 [facility] Bilirubin [Mass/Vol] 0.7 mg/dL 0.2-1.0 [facility] Calcium [Mass/Vol] 9.0 mg/dL 8.5-10.1 [facility] Chloride [Moles/Vol] 105 mmol/L 98-107 [facility] CO2 [Moles/Vol] 29.1 mmol/L 21.0-32.0 [facility] Cobalamin (Vitamin B12) [Mass/Vol] 782.0 pg/mL 193.0-986.0 [facility] Creatinine [Mass/Vol] 0.78 mg/dL 0.70-1.30 [facility] Ferritin [Mass/Vol] 139.0 ng/mL 26.0-388.0 [facility] GFR/1.73 sq M.predicted MDRD (S/P/Bld) [Vol rate/Area] mL/min/{1.73_m2} >=60 [facility] Glucose [Mass/Vol] 90 mg/dL 74-106 [facility] Iron [Mass/Vol] 53.0 ug/dL Low 65.0-175.0 [facility] Potassium [Moles/Vol] 4.5 mmol/L 3.5-5.1 [facility] Protein [Mass/Vol] 7.6 g/dL 6.4-8.2 [facility] Sodium [Moles/Vol] 138 mmol/L 136-145 [facility] Urea nitrogen [Mass/Vol] 26.0 mg/dL High 7.0-18.0 [facility] Urea nitrogen/Creatinine [Mass ratio] 33.3 mg/mg [facility] Laboratory - Hematology and Cell countson 12-04-2023 Immature granulocytes/100 WBC (Bld) 0.2 % 0.0-0.5 [facility] Leukocytes [#/volume] correc александр for nucleated erythrocytes in Blood by Automated counon 12-04-2023 WBC corrected for nucl RBC Auto (Bld) [#/Vol] 5.6 10 3/uL 4.0-11.0 [facility] Lymphocytes Auto (Bld) [#/Vo l]on 12-04-2023 Lymphocytes (Bld) [#/Vol] 2.0 10 3/uL 1.2-3.8 [facility] Lymphocytes/100 WBC Auto (Bl d)on 12-04-2023 Lymphocytes/100 WBC (Bld) 36.0 % 20.5-60.0 [facility] MCH Auto (RBC) [Entitic mass ]on 12-04-2023 MCH (RBC) [Entitic mass] 30.3 pg 25.9-34.0 [facility] MCHC Auto (RBC) [Mass/Vol]on 12-04-2023 MCHC (RBC) [Mass/Vol] 32.5 g/dL 29.9-35.2 [facility] MCV Auto (RBC) [Entitic vol] on 12-04-2023 MCV (RBC) [Entitic vol] 93.1 fL 80.0-94.0 [facility] Monocytes Auto (Bld) [#/Vol] on 12-04-2023 Monocytes (Bld) [#/Vol] 0.3 10 3/uL 0.3-0.8 [facility] Monocytes/100 WBC Auto (Bld) on 12-04-2023 Monocytes/100 WBC (Bld) 5.7 % 1.7-12.0 [facility] Neutrophils Auto (Bld) [#/Vo l]on 12-04-2023 Neutrophils (Bld) [#/Vol] 3.1 10 3/uL 1.4-6.5 [facility] Neutrophils/100 WBC Auto (Bl d)on 12-04-2023 Neutrophils/100 WBC (Bld) 54.6 % 43.0-75.0 [facility] No Panel Informationon 12-03 Eosinophils # (Auto) 0.2 10 3/uL 0.0-0.7 [facility] Folate 8.50 ng/mL Low 8.60-58.90 [facility] Immature Granulocyte # (Auto) 0.01 10 3/uL 0.00-0.03 [facility] Platelet mean volume Auto (B ld) [Entitic vol]on 12-04-2023 Platelet mean volume (Bld) [Entitic vol] 9.9 fL 9.5-13.5 [facility] Platelets Auto (Bld) [#/Vol] on 12-04-2023 Platelets (Bld) [#/Vol] 143 10 3/uL Low 150-450 [facility] RBC Auto (Bld) [#/Vol]on RBC (Bld) [#/Vol] 3.90 10 6/uL Low 4.70-6.10 [facility] Serum or plasma albumin/glob ulin mass ratioon 12-04-2023 Albumin/Globulin [Mass ratio] 0.6 {ratio} [facility] Serum or plasma anion gap de terminationon 12-04-2023 Anion gap [Moles/Vol] 8.4 mmol/L [facility] Basophils Auto (Bld) [#/Vol] on 10-23-2023 Basophils (Bld) [#/Vol] 0.0 10 3/uL 0.0-0.1 [facility] Basophils/100 WBC Auto (Bld) on 10-23-2023 Basophils/100 WBC (Bld) 0.3 % 0.2-2.0 [facility] [facility] Eosinophils/100 WBC Auto (Bl d)on 10-23-2023 Eosinophils/100 WBC (Bld) 4.6 % 0.9-7.0 [facility] Erythrocyte distribution wid th Auto (RBC) [Ratio]on 10-23-2023 Erythrocyte distribution width (RBC) [Ratio] 15.4 % High 11.0-15.0 [facility] Estimated glomerular filtrat ion rate (GFR) non- Americanon 10-23-2023 GFR/1.73 sq M.predicted among non-blacks MDRD (S/P/Bld) [Vol rate/Area] mL/min/{1.73_m2} >=60 [facility] Globulin Calc (S) [Mass/Vol] on 10-23-2023 Globulin (S) [Mass/Vol] 4.9 g/dL [facility] Hematocrit Auto (Bld) [Volum e fraction]on 10-23-2023 Hematocrit (Bld) [Volume fraction] 35.9 % Low 42.0-54.0 [facility] Hemoglobin [Mass/volume] in Bloodon 10-23-2023 Hemoglobin (Bld) [Mass/Vol] 11.4 g/dL Low 14.0-18.0 [facility] Laboratory - Chemistry and C hemistry - challengeon 10-23-2023 Albumin [Mass/Vol] 2.8 g/dL Low 3.4-5.0 [facility] ALP [Catalytic activity/Vol] 98 U/L 46-116 [facility] ALT [Catalytic activity/Vol] 30 U/L 16-63 [facility] AST [Catalytic activity/Vol] 39 U/L High 15-37 [facility] Bilirubin [Mass/Vol] 0.8 mg/dL 0.2-1.0 [facility] Calcium [Mass/Vol] 8.8 mg/dL 8.5-10.1 [facility] Chloride [Moles/Vol] 104 mmol/L 98-107 [facility] CO2 [Moles/Vol] 31.0 mmol/L 21.0-32.0 [facility] Creatinine [Mass/Vol] 0.82 mg/dL 0.70-1.30 [facility] GFR/1.73 sq M.predicted MDRD (S/P/Bld) [Vol rate/Area] mL/min/{1.73_m2} >=60 [facility] Glucose [Mass/Vol] 91 mg/dL 74-106 [facility] Potassium [Moles/Vol] 4.3 mmol/L 3.5-5.1 [facility] Protein [Mass/Vol] 7.7 g/dL 6.4-8.2 [facility] Sodium [Moles/Vol] 140 mmol/L 136-145 [facility] Urea nitrogen [Mass/Vol] 23.0 mg/dL High 7.0-18.0 [facility] Urea nitrogen/Creatinine [Mass ratio] 28.0 mg/mg [facility] Laboratory - Hematology and Cell countson 10-23-2023 Immature granulocytes/100 WBC (Bld) 0.2 % 0.0-0.5 [facility] Leukocytes [#/volume] correc александр for nucleated erythrocytes in Blood by Automated counon 10-23-2023 WBC corrected for nucl RBC Auto (Bld) [#/Vol] 6.1 10 3/uL 4.0-11.0 [facility] Lymphocytes Auto (Bld) [#/Vo l]on 10-23-2023 Lymphocytes (Bld) [#/Vol] 1.8 10 3/uL 1.2-3.8 [facility] Lymphocytes/100 WBC Auto (Bl d)on 10-23-2023 Lymphocytes/100 WBC (Bld) 28.7 % 20.5-60.0 [facility] MCH Auto (RBC) [Entitic mass ]on 10-23-2023 MCH (RBC) [Entitic mass] 30.0 pg 25.9-34.0 [facility] MCHC Auto (RBC) [Mass/Vol]on 10-23-2023 MCHC (RBC) [Mass/Vol] 31.8 g/dL 29.9-35.2 [facility] MCV Auto (RBC) [Entitic vol] on 10-23-2023 MCV (RBC) [Entitic vol] 94.5 fL High 80.0-94.0 [facility] Monocytes Auto (Bld) [#/Vol] on 10-23-2023 Monocytes (Bld) [#/Vol] 0.3 10 3/uL 0.3-0.8 [facility] Monocytes/100 WBC Auto (Bld) on 10-23-2023 Monocytes/100 WBC (Bld) 5.6 % 1.7-12.0 [facility] Neutrophils Auto (Bld) [#/Vo l]on 10-23-2023 Neutrophils (Bld) [#/Vol] 3.7 10 3/uL 1.4-6.5 [facility] Neutrophils/100 WBC Auto (Bl d)on 10-23-2023 Neutrophils/100 WBC (Bld) 60.6 % 43.0-75.0 [facility] No Panel Informationon 10-22 Eosinophils # (Auto) 0.3 10 3/uL 0.0-0.7 [facility] Immature Granulocyte # (Auto) 0.01 10 3/uL 0.00-0.03 [facility] Platelet mean volume Auto (B ld) [Entitic vol]on 10-23-2023 Platelet mean volume (Bld) [Entitic vol] 9.8 fL 9.5-13.5 [facility] Platelets Auto (Bld) [#/Vol] on 10-23-2023 Platelets (Bld) [#/Vol] 188 10 3/uL 150-450 [facility] RBC Auto (Bld) [#/Vol]on RBC (Bld) [#/Vol] 3.80 10 6/uL Low 4.70-6.10 [facility] Serum or plasma albumin/glob ulin mass ratioon 10-23-2023 Albumin/Globulin [Mass ratio] 0.6 {ratio} [facility] Serum or plasma anion gap de terminationon 10-23-2023 Anion gap [Moles/Vol] 9.3 mmol/L [facility] Basic Metabolic Profon 09-01 Anion gap [Moles/Vol] 6 mmol/L Low 9-16 [facility] Comment on above: Performed By: #### B EDWARD TROPI #### [employer] [address], [place] [id number] [employer] Engineer: Ramsey Rodriguez MD Calcium [Mass/Vol] 8.7 mg/dL Normal 8.6-10.4 [facility] Comment on above: Performed By: #### B EDWARD TROPI #### [employer] [address], [place] [phone] [employer] Engineer: Ramsey Rodriguez MD Chloride [Moles/Vol] 102 mmol/L Normal 98-107 [facility] Comment on above: Performed By: #### B EDWARD, TROPI #### [facility] [address] [place] [address] [employer] Engineer: Ramsey Rodriguez MD CO2 [Moles/Vol] 32 mmol/L High 20-31 [facility] Comment on above: Performed By: #### B EDWARD, TROPI #### [facility] [address] [place] [address] [employer]: Ramsey Rodriguez MD Creatinine [Mass/Vol] 0.5 mg/dL Low 0.70-1.20 [facility] Comment on above: Performed By: #### B EDWARD, TROPI #### [facility] [employer] [address] [place] [address] [employer]: Ramsey Rodriguez MD GFR/1.73 sq M.predicted among non-blacks MDRD (S/P/Bld) [Vol rate/Area] mL/min/{1.73_m2} Normal >60 [facility] Comment on above: Result Comment: These results [...] Performed By: #### B EDWARD, TROPI #### [facility] [address] [place] [address] [employer] Engineer: Ramsey Rodriguez MD Glucose [Mass/Vol] 93 mg/dL Normal 74-99 [facility] Comment on above: Performed By: #### B EDWARD, TROPI #### [facility] [address] [place] [address] [employer]: Ramsey Rodriguez MD Potassium [Moles/Vol] 3.7 mmol/L Normal 3.7-5.3 [facility] Comment on above: Performed By: #### B EDWARD TROPI #### [address] [address] [employer]: Ramsey Rodriguez MD Sodium [Moles/Vol] 140 mmol/L Normal 136-145 [facility] Comment on above: Performed By: #### B EDWARD, TROPI #### [address] [address] [employer]: Ramsey Rodriguez MD Urea nitrogen [Mass/Vol] 14 mg/dL Normal 8-23 [facility] Comment on above: Performed By: #### B EDWARD TROPI #### [address] [address] [employer]: Ramsey Rodriguez MD CBC with Diffon 09-02-2023 Abs. Basophil 0.03 k/uL Normal 0.00-0.20 [facility] Comment on above: Performed By: #### Nicol LEON TROPI #### [address] [address] [employer]: Ramsey Rodriguez MD Abs.Imm.Granulocyte 0.04 k/uL Normal 0.00-0.30 [facility] Comment on above: Performed By: #### Nicol LEON TROPI #### [address] [address] [employer] Engineer: Ramsey Rodriguez MD Abs.Neutrophil (Seg) 4.12 k/uL Normal 1.50-8.10 [facility] Comment on above: Performed By: #### B EDWARD TROPI #### [facility] [employer] [address] [place] [address] [employer] Engineer: Ramsey Rodriguez MD Basophils/100 WBC (Bld) 1 % Normal 0-2 [facility] Comment on above: Performed By: #### B EDWARD TROPI #### [facility] [employer] [address] [place] [address] [employer] Engineer: Ramsey Rodriguez MD Eosinophils (Bld) [#/Vol] 0.34 10*3/uL Normal 0.00-0.44 [facility] Comment on above: Performed By: #### B MP, TROPI #### [facility] [address] [place] [address] [employer]: Ramsey Rodriguez MD Eosinophils/100 WBC (Bld) 6 % High 1-4 [facility] Comment on above: Performed By: #### B MP, TROPI #### [facility] [address] [place] [address] [employer]: Ramsey Rodriguez MD Erythrocyte distribution width (RBC) [Ratio] 16.0 % High 11.8-14.4 [facility] Comment on above: Performed By: #### B MP, TROPI #### [facility] [employer] [address] [place] [address] [employer] Engineer: Ramsey Rodriguez MD Hematocrit (Bld) [Volume fraction] 33.4 % Low 40.7-50.3 [facility] Comment on above: Performed By: #### B MP, TROPI #### [facility] [employer] [address] [place] [address] [employer] Engineer: Ramsey Rodriguez MD Hemoglobin (Bld) [Mass/Vol] 10.6 g/dL Low 13.0-17.0 [facility] Comment on above: Performed By: #### B MP, TROPI #### [facility] [address] [place] [address] [employer] Engineer: Ramsey Rodriguez MD Immature granulocytes/100 WBC (Bld) 1 % High 0 [facility] Comment on above: Performed By: #### B MP, TROPI #### [facility] [employer] [address] [place] [address] [employer] Engineer: Ramsey Rodriguez MD Lymphocytes (Bld) [#/Vol] 0.96 10*3/uL Low 1.10-3.70 [facility] Comment on above: Performed By: #### B EDWARD, TROPI #### [facility] [employer] [address] [place] [address] [employer]: Ramsey Rodriguez MD Lymphocytes/100 WBC (Bld) 17 % Low 24-43 [facility] Comment on above: Performed By: #### B EDWARD, TROPI #### [facility] [employer] [address] [place] [address] [employer]: Ramsey Rodriguez MD MCH (RBC) [Entitic mass] 30.5 pg Normal 25.2-33.5 [facility] Comment on above: Performed By: #### B EDWARD, TROPI #### [address] [address] [employer]: Ramsey Rodriguez MD MCHC (RBC) [Mass/Vol] 31.7 g/dL Normal 28.4-34.8 [facility] Comment on above: Performed By: #### B EDWARD TROPI #### [address] [address] [employer]: Ramsey Rodriguez MD MCV (RBC) [Entitic vol] 96.0 fL Normal 82.6-102.9 [facility] Comment on above: Performed By: #### B EDWARD, TROPI #### [address] [address] [employer]: Ramsey Rodriguez MD Monocytes (Bld) [#/Vol] 0.33 10*3/uL Normal 0.10-1.20 [facility] Comment on above: Performed By: #### B EDWARD, TROPI #### [facility] [employer] [address] [place] [address] [employer] Engineer: Ramsey Rodriguez MD Monocytes/100 WBC (Bld) 6 % Normal 3-12 [facility] Comment on above: Performed By: #### B MP, TROPI #### [facility] [employer] [address] [place] [address] [employer] Engineer: Ramsey Rodriguez MD Neutrophil (Seg) 69 % High 36-65 [facility] Comment on above: Performed By: #### B MP, TROPI #### [facility] [employer] [address] [place] [address] [employer] Engineer: Ramsey Rodriguez MD NRBC Automated 0.0 per 100 WBC Normal 0.0 [facility] Comment on above: Performed By: #### B EDWARD, TROPI #### [facility] [employer] [address] [place] [address] [employer] Engineer: Ramsey Rodriguez MD Platelet mean volume (Bld) [Entitic vol] 10.0 fL Normal 8.1-13.5 [facility] Comment on above: Performed By: #### B MP, TROPI #### [facility] [employer] [address] [place] [address] [employer]: Ramsey Rodriguez MD Platelets (Bld) [#/Vol] 190 10*3/uL Normal 138-453 [facility] Comment on above: Performed By: #### B MP, TROPI #### [address] [address] [employer] Engineer: Ramsey Rodriguez MD RBC (Bld) [#/Vol] 3.48 10*6/uL Low 4.21-5.77 [facility] Comment on above: Performed By: #### B MP, TROPI #### [facility] [employer] [address] [place] [address] [employer] Engineer: Ramsey Rodriguez MD RBC morphology finding Nom (Bld) ANISOCYTOSIS PRESENT Normal [facility] Comment on above: Performed By: #### B MP, TROPI #### [employer] [address] [place] [address] [employer] Engineer: Ramsey Rodriguez MD WBC (Bld) [#/Vol] 5.8 10*3/uL Normal 3.5-11.3 [facility] Comment on above: Performed By: #### B MP, TROPI #### [facility] [employer] [address] [place] [address] [employer]: Ramsey Rodriguez MD Heparin Anti-Xaon 09-02-2023 Heparin Anti-Xa <0.10 Normal [facility] Comment on above: Performed By: #### B MP, TROPI #### [facility] [employer] [address] [place] [address] [employer]: Ramsey Rodriguez MD Basic Metabolic Profon 08-31 Anion gap [Moles/Vol] 7 mmol/L Low 9-16 [facility] Comment on above: Performed By: #### B MP, CDP, HEPXA #### [facility] [employer] [address] [place] [address] [employer] Engineer: Ramsey Rodriguez MD Calcium [Mass/Vol] 8.6 mg/dL Normal 8.6-10.4 [facility] Comment on above: Performed By: #### B MP, CDP, HEPXA #### [facility] [employer] [address] [place] [address] [employer] Engineer: Ramsey Rodriguez MD Chloride [Moles/Vol] 102 mmol/L Normal 98-107 [facility] Comment on above: Performed By: #### B MP, CDP, HEPXA #### [facility] [employer] [address] [place] [address] [employer] Engineer: Ramsey Rodriguez MD CO2 [Moles/Vol] 29 mmol/L Normal 20-31 [facility] Comment on above: Performed By: #### B MP, CDP, HEPXA #### [facility] [employer] [address] [place] [address] [place] [address] [employer]: Ramsey Rodriguez MD Creatinine [Mass/Vol] 0.6 mg/dL Low 0.70-1.20 [facility] Comment on above: Performed By: #### B EDWARD CDP, HEPXA #### [employer] [address] [place] [address] [employer] Engineer: Ramsey Rodriguez MD GFR/1.73 sq M.predicted among non-blacks MDRD (S/P/Bld) [Vol rate/Area] mL/min/{1.73_m2} Normal >60 [facility] Comment on above: Result Comment: These results [...] By: #### B EDWARD CDP, HEPXA #### [employer] [address] [place] [address] [employer] Engineer: Ramsey Rodriguez MD Glucose [Mass/Vol] 98 mg/dL Normal 74-99 [facility] Comment on above: Performed By: #### B FABIANO LEON, HEPXA #### [employer] [address] [place] [address] [employer] Engineer: Ramsey Rodriguez MD Potassium [Moles/Vol] 4.0 mmol/L Normal 3.7-5.3 [facility] Comment on above: Performed By: #### B EDWARD CDP, HEPXA #### [employer] [address] [place] [address] [employer] Engineer: Ramsey Rodriguez MD Sodium [Moles/Vol] 138 mmol/L Normal 136-145 [facility] Comment on above: Performed By: #### B EDWARD CDP, HEPXA #### [address] [address] [employer] Engineer: Ramsey Rodriguez MD Urea nitrogen [Mass/Vol] 15 mg/dL Normal 8-23 [facility] Comment on above: Performed By: #### B MP, CDP, HEPXA #### [place] [address] [employer]: Ramsey Rodriguez MD CBC with Diffon 09-01-2023 Abs. Basophil 0.03 k/uL Normal 0.00-0.20 [facility] Comment on above: Performed By: #### B MP, CDP, HEPXA #### [address] [address] [employer]: Ramsey Rodriguez MD Abs.Imm.Granulocyte <0.03 Normal 0.00-0.30 [facility] Comment on above: Performed By: #### B MP, CDP, HEPXA #### [place] [address] [employer]: Ramsey Rodriguez MD Abs.Neutrophil (Seg) 5.05 k/uL Normal 1.50-8.10 [facility] Comment on above: Performed By: #### B MP, CDP, HEPXA #### [address] [address] [employer] Engineer: Ramsey Rodriguez MD Basophils/100 WBC (Bld) 0 % Normal 0-2 [facility] Comment on above: Performed By: #### B MP, CDP, HEPXA #### [address] [address] [employer]: Ramsey Rodriguez MD Eosinophils (Bld) [#/Vol] 0.30 10*3/uL Normal 0.00-0.44 [facility] Comment on above: Performed By: #### B MP, CDP, HEPXA #### [address] [place] [address] [employer]: Ramsey Rodriguez MD Eosinophils/100 WBC (Bld) 4 % Normal 1-4 [facility] Comment on above: Performed By: #### B MP, CDP, HEPXA #### [address] [address] [employer]: Ramsey Rodriguez MD Erythrocyte distribution width (RBC) [Ratio] 16.0 % High 11.8-14.4 [facility] Comment on above: Performed By: #### B MP, CDP, HEPXA #### [address] [address] [employer]: Ramsey Rodriguez MD Hematocrit (Bld) [Volume fraction] 34.5 % Low 40.7-50.3 [facility] Comment on above: Performed By: #### B MP, CDP, HEPXA #### [address] [address] [employer]: Ramsey Rodriguez MD Hemoglobin (Bld) [Mass/Vol] 10.9 g/dL Low 13.0-17.0 [facility] Comment on above: Performed By: #### B MP, CDP, HEPXA #### [address] [address] [employer]: Ramsey Rodriguez MD Immature granulocytes/100 WBC (Bld) 0 % Normal 0 [facility] Comment on above: Performed By: #### B MP, CDP, HEPXA #### [address] [address] [employer]: Ramsey Rodriguez MD Lymphocytes (Bld) [#/Vol] 2.11 10*3/uL Normal 1.10-3.70 [facility] Comment on above: Performed By: #### B MP, CDP, HEPXA #### [facility] [employer] [address] [place] [address] [employer] Engineer: Ramsey Rodriguez MD Lymphocytes/100 WBC (Bld) 27 % Normal 24-43 [facility] Comment on above: Performed By: #### B MP, CDP, HEPXA #### [address] [address] [employer]: Ramsey Rodriguez MD MCH (RBC) [Entitic mass] 30.9 pg Normal 25.2-33.5 [facility] Comment on above: Performed By: #### B MP, CDP, HEPXA #### [facility] [address] [place] [address] [employer]: Ramsey Rodriguez MD MCHC (RBC) [Mass/Vol] 31.6 g/dL Normal 28.4-34.8 [facility] Comment on above: Performed By: #### B MP, CDP, HEPXA #### [address] [address] [employer]: Ramsey Rodriguez MD MCV (RBC) [Entitic vol] 97.7 fL Normal 82.6-102.9 [facility] Comment on above: Performed By: #### B MP, CDP, HEPXA #### [address] [address] [employer]: Ramsey Rodriguez MD Monocytes (Bld) [#/Vol] 0.39 10*3/uL Normal 0.10-1.20 [facility] Comment on above: Performed By: #### B MP, CDP, HEPXA #### [address] [address] [employer]: Ramsey Rodriguez MD Monocytes/100 WBC (Bld) 5 % Normal 3-12 [facility] Comment on above: Performed By: #### B MP, CDP, HEPXA #### [address] [address] [employer] Engineer: Ramsey Rodriguez MD Neutrophil (Seg) 64 % Normal 36-65 [facility] Comment on above: Performed By: #### B MP, CDP, HEPXA #### [address] [address] [employer]: Ramsey Rodriguez MD NRBC Automated 0.0 per 100 WBC Normal 0.0 [facility] Comment on above: Performed By: #### B MP, CDP, HEPXA #### [address] [address] [employer]: Ramsey Rodriguez MD Platelet mean volume (Bld) [Entitic vol] 10.5 fL Normal 8.1-13.5 [facility] Comment on above: Performed By: #### B MP, CDP, HEPXA #### [address] [address] [employer]: Ramsey Rodriguez MD Platelets (Bld) [#/Vol] 188 10*3/uL Normal 138-453 [facility] Comment on above: Performed By: #### B MP, CDP, HEPXA #### [address] [address] [employer] Engineer: Ramsey Rodriguez MD RBC (Bld) [#/Vol] 3.53 10*6/uL Low 4.21-5.77 [facility] Comment on above: Performed By: #### B MP, CDP, HEPXA #### [address] [address] [employer]: Ramsey Rodriguez MD RBC morphology finding Nom (Bld) ANISOCYTOSIS PRESENT Normal [facility] Comment on above: Performed By: #### B MP, CDP, HEPXA #### [address] [address] [employer]: Ramsey Rodriguez MD WBC (Bld) [#/Vol] 7.9 10*3/uL Normal 3.5-11.3 [facility] Comment on above: Performed By: #### B MP, CDP, HEPXA #### [facility] [employer] [address] [place] [address] [employer] Engineer: Ramsey Rodriguez MD Heparin Anti-Xaon 09-01-2023 Heparin Anti-Xa 0.43 IU/L Normal [facility] Comment on above: Performed By: #### B MP, CDP, HEPXA #### [facility] [employer] [address] [place] [address] [employer]: Ramsey Rodriguez MD Basic Metabolic Profon 08-30 Anion gap [Moles/Vol] 8 mmol/L Low 9-16 [facility] Comment on above: Performed By: #### B EDWARD, CDP, HEPXA #### [address] [address] [employer]: Ramsey Rodriguez MD Calcium [Mass/Vol] 8.2 mg/dL Low 8.6-10.4 [facility] Comment on above: Performed By: #### B EDWARD, CDP, HEPXA #### [facility] [employer] [address] [place] [address] [employer] Engineer: Ramsey Rodriguez MD Chloride [Moles/Vol] 103 mmol/L Normal 98-107 [facility] Comment on above: Performed By: #### B MP, CDP, HEPXA #### [facility] [employer] [address] [place] [address] [employer] Engineer: Ramsey Rodriguez MD CO2 [Moles/Vol] 28 mmol/L Normal 20-31 [facility] Comment on above: Performed By: #### B MP, CDP, HEPXA #### [facility] [employer] [address] [place] [address] [employer]: Ramsey Rodriguez MD Creatinine [Mass/Vol] 0.6 mg/dL Low 0.70-1.20 [facility] Comment on above: Performed By: #### B EDWARD CDP, HEPXA #### [facility] [employer] [address] [place] [address] [employer]: Ramsey Rodriguez MD GFR/1.73 sq M.predicted among non-blacks MDRD (S/P/Bld) [Vol rate/Area] mL/min/{1.73_m2} Normal >60 [facility] [facility] Comment on above: Result Comment: These results [...] By: #### B EDWARD CDP, HEPXA #### [facility] [address] [place] [address] [employer] Build Engineer: Ramsey Rodriguez MD Glucose [Mass/Vol] 104 mg/dL High 74-99 [facility] Comment on above: Performed By: #### B FABIANO LEON, HEPXA #### [facility] [address] [place] [address] [employer] Build Engineer: Ramsey Rodriguez MD Potassium [Moles/Vol] 3.5 mmol/L Low 3.7-5.3 [facility] Comment on above: Performed By: #### B EDWARD, CDP, HEPXA #### [facility] [address] [place] [address] [employer] Build Engineer: Ramsey Rodriguez MD Sodium [Moles/Vol] 139 mmol/L Normal 136-145 [facility] Comment on above: Performed By: #### B EDWARD, CDP, HEPXA #### [facility] [address] [place] [address] [employer] Build Engineer: Ramsey Rodriguez MD Urea nitrogen [Mass/Vol] 17 mg/dL Normal 8-23 [facility] Comment on above: Performed By: #### B MP, CDP, HEPXA #### [place] [address] [employer] Build Engineer: Ramsey Rodriguez MD CBC with Diffon 08-31-2023 Abs. Basophil <0.03 Normal 0.00-0.20 [facility] Comment on above: Performed By: #### T ROPI #### [place] [address] [employer] Build Engineer: Ramsey Rodriguez MD Abs.Imm.Granulocyte 0.03 k/uL Normal 0.00-0.30 [facility] Comment on above: Performed By: #### T ROPI #### [place] [address] [employer] Build Engineer: Ramsey Rodriguez MD Abs.Neutrophil (Seg) 4.38 k/uL Normal 1.50-8.10 [facility] Comment on above: Performed By: #### T ROPI #### [address] [address] [employer] Build Engineer: Ramsey Rodriguez MD Basophils/100 WBC (Bld) 0 % Normal 0-2 [facility] Comment on above: Performed By: #### T ROPI #### [place] [address] [employer] Build Engineer: Ramsey Rodriguez MD Eosinophils (Bld) [#/Vol] 0.21 10*3/uL Normal 0.00-0.44 [facility] Comment on above: Performed By: #### T ROPI #### [address] [address] [employer] Build Engineer: Ramsey Rodriguez MD Eosinophils/100 WBC (Bld) 3 % Normal 1-4 [facility] Comment on above: Performed By: #### T ROPI #### [address] [address] [employer] Build Engineer: Ramsey Rodriguez MD Erythrocyte distribution width (RBC) [Ratio] 15.9 % High 11.8-14.4 [facility] Comment on above: Performed By: #### T ROPI #### [address] [address] [employer] Build Engineer: Ramsey Rodriguez MD Hematocrit (Bld) [Volume fraction] 33.3 % Low 40.7-50.3 [facility] Comment on above: Performed By: #### T ROPI #### [address] [address] [employer] Build Engineer: Ramsey Rodriguez MD Hemoglobin (Bld) [Mass/Vol] 10.4 g/dL Low 13.0-17.0 [facility] Comment on above: Performed By: #### T ROPI #### [address] [address] [employer] Build Engineer: Ramsey Rodriguez MD Immature granulocytes/100 WBC (Bld) 1 % High 0 [facility] Comment on above: Performed By: #### T ROPI #### [address] [address] [employer] Build Engineer: Ramsey Rodriguez MD Lymphocytes (Bld) [#/Vol] 1.31 10*3/uL Normal 1.10-3.70 [facility] Comment on above: Performed By: #### T ROPI #### [address] [address] [employer] Build Engineer: Ramsey Rodriguez MD Lymphocytes/100 WBC (Bld) 21 % Low 24-43 [facility] Comment on above: Performed By: #### T ROPI #### [address] [address] [employer] Engineer: Ramsey Rodriguez MD MCH (RBC) [Entitic mass] 30.9 pg Normal 25.2-33.5 [facility] Comment on above: Performed By: #### T ROPI #### [address] [address] [employer] Build Engineer: Ramsey Rodriguez MD MCHC (RBC) [Mass/Vol] 31.2 g/dL Normal 28.4-34.8 [facility] Comment on above: Performed By: #### T ROPI #### [address] [address] [employer] Build Engineer: Ramsey Rodriguez MD MCV (RBC) [Entitic vol] 98.8 fL Normal 82.6-102.9 [facility] Comment on above: Performed By: #### T ROPI #### [place] [address] [employer] Build Engineer: Ramsey Rodriguez MD Monocytes (Bld) [#/Vol] 0.31 10*3/uL Normal 0.10-1.20 [facility] Comment on above: Performed By: #### T ROPI #### [address] [address] [employer] Engineer: Ramsey Rodriguez MD Monocytes/100 WBC (Bld) 5 % Normal 3-12 [facility] Comment on above: Performed By: #### T ROPI #### [place] [address] [employer] Engineer: Ramsey Rodriguez MD Neutrophil (Seg) 70 % High 36-65 [facility] Comment on above: Performed By: #### T ROPI #### [address] [address] [employer] Build Engineer: Ramsey Rodriguez MD NRBC Automated 0.0 per 100 WBC Normal 0.0 [facility] Comment on above: Performed By: #### T ROPI #### [address] [address] [employer] Engineer: Ramsey Rodriguez MD Platelet mean volume (Bld) [Entitic vol] 10.4 fL Normal 8.1-13.5 [facility] Comment on above: Performed By: #### T ROPI #### [address] [address] [employer] Build Engineer: Ramsey Rodriguez MD Platelets (Bld) [#/Vol] 160 10*3/uL Normal 138-453 [facility] Comment on above: Performed By: #### T ROPI #### [address] [address] [employer] Build Engineer: Ramsey Rodriguez MD RBC (Bld) [#/Vol] 3.37 10*6/uL Low 4.21-5.77 [facility] Comment on above: Performed By: #### T ROPI #### [address] [address] [employer] Build Engineer: Ramsey Rodriguez MD RBC morphology finding Nom (Bld) ANISOCYTOSIS PRESENT Normal [facility] Comment on above: Performed By: #### T ROPI #### [address] [address] [employer] Build Engineer: Ramsey Rodriguez MD WBC (Bld) [#/Vol] 6.3 10*3/uL Normal 3.5-11.3 [facility] Comment on above: Performed By: #### T ROPI #### [address] [address] [employer] Build Engineer: Ramsey Rodriguez MD Heparin Anti-Xaon 08-31-2023 Heparin Anti-Xa 0.39 IU/L Normal [facility] Comment on above: Performed By: #### H EPXA, CBC, PTT, PT #### [address] [address] [employer] Engineer: Ramsey Rodriguez MD Basic Metabolic Profon 08-29 Anion gap [Moles/Vol] 7 mmol/L Low 9-16 [facility] Comment on above: Performed By: #### B MP, CDP, HEPXA #### [address] [address] [employer] Engineer: Ramsey Rodriguez MD Calcium [Mass/Vol] 8.2 mg/dL Low 8.6-10.4 [facility] Comment on above: Performed By: #### B MP, CDP, HEPXA #### [facility] [employer] [address] [place] [address] [employer] Engineer: Ramsey Rodriguez MD Chloride [Moles/Vol] 104 mmol/L Normal 98-107 [facility] Comment on above: Performed By: #### B MP, CDP, HEPXA #### [facility] [employer] [address] [place] [address] [employer] Build Engineer: Ramsey Rodriugez MD CO2 [Moles/Vol] 29 mmol/L Normal 20-31 [facility] Comment on above: Performed By: #### B MP, CDP, HEPXA #### [facility] [employer] [address] [place] [address] [employer] Build Engineer: Ramsey Rodriguez MD Creatinine [Mass/Vol] 0.7 mg/dL Normal 0.70-1.20 [facility] Comment on above: Performed By: #### B MP, CDP, HEPXA #### [facility] [address] [place] [address] [employer] Engineer: Ramsey Rodriguez MD GFR/1.73 sq M.predicted among non-blacks MDRD (S/P/Bld) [Vol rate/Area] mL/min/{1.73_m2} Normal >60 [facility] Comment on above: Result Comment: These results [...] By: #### B EDWARD CDP, HEPXA #### [facility] [address] [place] [address] [employer] Build Engineer: Ramsey Rodriguez MD Glucose [Mass/Vol] 94 mg/dL Normal 74-99 [facility] Comment on above: Performed By: #### B EDWARD CDP, HEPXA #### [facility] [employer] [address] [place] [address] [employer] Engineer: Ramsey Rodriguez MD Potassium [Moles/Vol] 3.6 mmol/L Low 3.7-5.3 [facility] Comment on above: Performed By: #### B EDWARD CDP, HEPXA #### [facility] [employer] [address] [place] [address] [employer] Build Engineer: Ramsey Rodriguez MD Sodium [Moles/Vol] 140 mmol/L Normal 136-145 [facility] Comment on above: Performed By: #### B MP CDP, HEPXA #### [facility] [employer] [address] [place] [address] [employer] Build Engineer: Ramsey Rodriguez MD Urea nitrogen [Mass/Vol] 14 mg/dL Normal 8-23 [facility] Comment on above: Performed By: #### B MP, CDP, HEPXA #### [facility] [address] [place] [address] [employer] Build Engineer: Ramsey Rodriguez MD CBC with Diffon 08-30-2023 Abs. Basophil <0.03 Normal 0.00-0.20 [facility] Comment on above: Performed By: #### B MP, CDP, HEPXA #### [employer] [address] [place] [address] [employer] Build Engineer: Ramsey Rodriguez MD Abs.Imm.Granulocyte 0.03 k/uL Normal 0.00-0.30 [facility] Comment on above: Performed By: #### B MP, CDP, HEPXA #### [facility] [employer] [address] [place] [address] [employer] Build Engineer: Ramsey Rodriguez MD Abs.Neutrophil (Seg) 3.72 k/uL Normal 1.50-8.10 [facility] Comment on above: Performed By: #### B MP, CDP, HEPXA #### [address] [address] [employer] Build Engineer: Ramsey Rodriguez MD Basophils/100 WBC (Bld) 0 % Normal 0-2 [facility] Comment on above: Performed By: #### B MP, CDP, HEPXA #### [facility] [employer] [address] [place] [address] [employer] Build Engineer: Ramsey Rodriguez MD Eosinophils (Bld) [#/Vol] 0.22 10*3/uL Normal 0.00-0.44 [facility] Comment on above: Performed By: #### B MP, CDP, HEPXA #### [facility] [employer] [address] [place] [address] [employer] Build Engineer: Ramsey Rodriguez MD Eosinophils/100 WBC (Bld) 4 % Normal 1-4 [facility] Comment on above: Performed By: #### B MP, CDP, HEPXA #### [facility] [employer] [address] [place] [address] [employer] Build Engineer: Ramsey Rodriguez MD Erythrocyte distribution width (RBC) [Ratio] 15.8 % High 11.8-14.4 [facility] Comment on above: Performed By: #### B MP, CDP, HEPXA #### [facility] [employer] [address] [place] [address] [employer] Engineer: Ramsey Rodriguez MD Hematocrit (Bld) [Volume fraction] 31.1 % Low 40.7-50.3 [facility] Comment on above: Performed By: #### B MP, CDP, HEPXA #### [address] [address] [employer] Engineer: Ramsey Rodriguez MD Hemoglobin (Bld) [Mass/Vol] 10.1 g/dL Low 13.0-17.0 [facility] Comment on above: Performed By: #### B MP, CDP, HEPXA #### [address] [address] [employer] Engineer: Ramsey Rodriguez MD Immature granulocytes/100 WBC (Bld) 1 % High 0 [facility] Comment on above: Performed By: #### B MP, CDP, HEPXA #### [address] [address] [employer] Engineer: Ramsey Rodriguez MD Lymphocytes (Bld) [#/Vol] 1.25 10*3/uL Normal 1.10-3.70 [facility] Comment on above: Performed By: #### B MP, CDP, HEPXA #### [facility] [employer] [address] [place] [address] [employer] Engineer: Ramsey Rodriguez MD Lymphocytes/100 WBC (Bld) 22 % Low 24-43 [facility] Comment on above: Performed By: #### B MP, CDP, HEPXA #### [facility] [employer] [address] [place] [address] [employer] Build Engineer: Ramsey Rodriguez MD MCH (RBC) [Entitic mass] 30.6 pg Normal 25.2-33.5 [facility] Comment on above: Performed By: #### B MP, CDP, HEPXA #### [facility] [employer] [address] [place] [address] [employer] Build Engineer: Ramsey Rodriguez MD MCHC (RBC) [Mass/Vol] 32.5 g/dL Normal 28.4-34.8 [facility] Comment on above: Performed By: #### B MP, CDP, HEPXA #### [address] [address] [employer] Build Engineer: Ramsey Rodriguez MD MCV (RBC) [Entitic vol] 94.2 fL Normal 82.6-102.9 [facility] Comment on above: Performed By: #### B MP, CDP, HEPXA #### [address] [address] [employer] Engineer: Ramsey Rodriguez MD Monocytes (Bld) [#/Vol] 0.35 10*3/uL Normal 0.10-1.20 [facility] Comment on above: Performed By: #### B MP, CDP, HEPXA #### [address] [address] [employer] Build Engineer: Ramsey Rodriguez MD Monocytes/100 WBC (Bld) 6 % Normal 3-12 [facility] Comment on above: Performed By: #### B MP, CDP, HEPXA #### [address] [address] [employer] Build Engineer: Ramsey Rodriguez MD Neutrophil (Seg) 67 % High 36-65 [facility] Comment on above: Performed By: #### B MP, CDP, HEPXA #### [address] [address] [employer] Build Engineer: Ramsey Rodriguez MD NRBC Automated 0.0 per 100 WBC Normal 0.0 [facility] Comment on above: Performed By: #### B MP, CDP, HEPXA #### [address] [address] [employer] Engineer: Ramsey Rodriguez MD Platelet mean volume (Bld) [Entitic vol] 10.2 fL Normal 8.1-13.5 [facility] Comment on above: Performed By: #### B MP, CDP, HEPXA #### [address] [address] [employer] Build Engineer: Ramsey Rodriguez MD Platelets (Bld) [#/Vol] 158 10*3/uL Normal 138-453 [facility] Comment on above: Performed By: #### B MP, CDP, HEPXA #### [address] [address] [employer] Engineer: Ramsey Rodriguez MD RBC (Bld) [#/Vol] 3.30 10*6/uL Low 4.21-5.77 [facility] Comment on above: Performed By: #### B MP, CDP, HEPXA #### [address] [address] [employer] Build Engineer: Ramsey Rodriguez MD RBC morphology finding Nom (Bld) ANISOCYTOSIS PRESENT Normal [facility] Comment on above: Performed By: #### B MP, CDP, HEPXA #### [address] [address] [employer] Build Engineer: Ramsey Rodriguez MD WBC (Bld) [#/Vol] 5.6 10*3/uL Normal 3.5-11.3 [facility] Comment on above: Performed By: #### B MP, CDP, HEPXA #### [address] [address] [employer] Engineer: Ramsey Rodriguez MD Heparin Anti-Xaon 08-30-2023 Heparin Anti-Xa 0.43 IU/L Normal [facility] Comment on above: Performed By: #### H EPXA, CBC, PTT, PT #### [facility] [employer] [address] [place] [address] [employer] Build Engineer: Ramsey Rodriguez MD Heparin Anti-Xa 0.42 IU/L Normal [facility] Comment on above: Performed By: #### B EDWARD, CDP, HEPXA #### [facility] [address] [place] [address] [employer] Build Engineer: Ramsey Rodriguez MD Heparin Anti-Xa 0.27 IU/L Normal [facility] Comment on above: Performed By: #### B MP, CDP, HEPXA #### [facility] [employer] [address] [place] [address] [employer] Engineer: Ramsey Rodriguez MD Troponinon 08-30-2023 Troponin, High Sens 138 ng/L Critically high 0-22 [facility] Comment on above: Result Comment: High Sensitivity Troponin values cannot be compared with other Troponin methodologies. Previous Alert Value Reported Performed By: #### B EDWARD CDP, HEPXA #### [facility] [employer] [address] [place] [address] [employer] Build Engineer: Ramsey Rodriguez MD Basic Metabolic Profon 08-28 Anion gap [Moles/Vol] 6 mmol/L Low 9-16 [facility] Comment on above: Performed By: #### B FABIANO LEON, HEPXA #### [facility] [employer] [address] [place] [address] [employer] Build Engineer: Ramsey Rodriguez MD Calcium [Mass/Vol] 8.2 mg/dL Low 8.6-10.4 [facility] Comment on above: Performed By: #### B MP, CDP, HEPXA #### [facility] [address] [place] [address] [employer] Build Engineer: Ramsey Rodriguez MD Chloride [Moles/Vol] 106 mmol/L Normal 98-107 [facility] Comment on above: Performed By: #### B MP, CDP, HEPXA #### [facility] [address] [place] [address] [employer] Build Engineer: Ramsey Rodriguez MD CO2 [Moles/Vol] 29 mmol/L Normal 20-31 [facility] Comment on above: Performed By: #### B FABIANO LEON, HEPXA #### [facility] [place] [address] [employer] Build Engineer: Ramsey Rodriguez MD Creatinine [Mass/Vol] 0.6 mg/dL Low 0.70-1.20 [facility] Comment on above: Performed By: #### B FABIANO LEON, HEPXA #### [facility] [employer] [address] [place] [address] [employer] Engineer: Ramsey Rodriguez MD GFR/1.73 sq M.predicted among non-blacks MDRD (S/P/Bld) [Vol rate/Area] mL/min/{1.73_m2} Normal >60 [facility] Comment on above: Result Comment: These results [...] By: #### B FABIANO LEON, HEPXA #### [facility] [employer] [address] [place] [address] [employer] Build Engineer: Ramsey Rodriguez MD Glucose [Mass/Vol] 85 mg/dL Normal 74-99 [facility] Comment on above: Performed By: #### B FABIANO LEON, HEPXA #### [facility] [employer] [address] [place] [address] [employer] Build Engineer: Ramsey Rodriguez MD Potassium [Moles/Vol] 3.9 mmol/L Normal 3.7-5.3 [facility] Comment on above: Performed By: #### B EDWARD CDP, HEPXA #### [facility] [employer] [address] [place] [address] [employer] Build Engineer: Ramsey Rodriguez MD Sodium [Moles/Vol] 141 mmol/L Normal 136-145 [facility] Comment on above: Performed By: #### B MP, CDP, HEPXA #### [place] [address] [employer] Engineer: Ramsey Rodriguez MD Urea nitrogen [Mass/Vol] 9 mg/dL Normal 8-23 [facility] Comment on above: Performed By: #### B MP, CDP, HEPXA #### [place] [address] [employer] Engineer: Ramsey Rodriguez MD CBC with Diffon 08-29-2023 Abs. Basophil <0.03 Normal 0.00-0.20 [facility] Comment on above: Performed By: #### B MP, CDP, HEPXA #### [place] [address] [employer] Engineer: Ramsey Rodriguez MD Abs.Imm.Granulocyte <0.03 Normal 0.00-0.30 [facility] Comment on above: Performed By: #### B MP, CDP, HEPXA #### [place] [address] [employer] Build Engineer: Ramsey Rodriguez MD Abs.Neutrophil (Seg) 3.04 k/uL Normal 1.50-8.10 [facility] Comment on above: Performed By: #### B MP, CDP, HEPXA #### [place] [address] [employer] Engineer: Ramsey Rodriguez MD Basophils/100 WBC (Bld) 0 % Normal 0-2 [facility] Comment on above: Performed By: #### B MP, CDP, HEPXA #### [place] [address] [employer] Engineer: Ramsey Rodriguez MD Eosinophils (Bld) [#/Vol] 0.28 10*3/uL Normal 0.00-0.44 [facility] Comment on above: Performed By: #### B MP, CDP, HEPXA #### [address] [address] [employer] Engineer: Ramsey Rodriguez MD Eosinophils/100 WBC (Bld) 6 % High 1-4 [facility] Comment on above: Performed By: #### B MP, CDP, HEPXA #### [address] [address] [employer] Engineer: Ramsey Rodriguez MD Erythrocyte distribution width (RBC) [Ratio] 15.7 % High 11.8-14.4 [facility] Comment on above: Performed By: #### B MP, CDP, HEPXA #### [address] [address] [employer] Build Engineer: Ramsey Rodriguez MD Hematocrit (Bld) [Volume fraction] 32.4 % Low 40.7-50.3 [facility] Comment on above: Performed By: #### B MP, CDP, HEPXA #### [address] [address] [employer] Build Engineer: Ramsey Rodriguez MD Hemoglobin (Bld) [Mass/Vol] 10.2 g/dL Low 13.0-17.0 [facility] Comment on above: Performed By: #### B MP, CDP, HEPXA #### [address] [address] [employer] Build Engineer: Ramsey Rodriguez MD Immature granulocytes/100 WBC (Bld) 0 % Normal 0 [facility] Comment on above: Performed By: #### B MP, CDP, HEPXA #### [facility] [employer] [address] [place] [address] [employer] Build Engineer: Ramsey Rodriguez MD Lymphocytes (Bld) [#/Vol] 1.36 10*3/uL Normal 1.10-3.70 [facility] Comment on above: Performed By: #### B MP, CDP, HEPXA #### [facility] [employer] [address] [place] [address] [employer] Engineer: Ramsey Rodriguez MD Lymphocytes/100 WBC (Bld) 27 % Normal 24-43 [facility] Comment on above: Performed By: #### B MP, CDP, HEPXA #### [place] [id number] [place] [address] [employer] Engineer: Ramsey Rodriguez MD MCH (RBC) [Entitic mass] 30.8 pg Normal 25.2-33.5 [facility] Comment on above: Performed By: #### B MP, CDP, HEPXA #### [address] [address] [employer] Engineer: Ramsey Rodriguez MD MCHC (RBC) [Mass/Vol] 31.5 g/dL Normal 28.4-34.8 [facility] Comment on above: Performed By: #### B MP, CDP, HEPXA #### [address] [address] [employer] Build Engineer: Ramsey Rodriguez MD MCV (RBC) [Entitic vol] 97.9 fL Normal 82.6-102.9 [facility] Comment on above: Performed By: #### B MP, CDP, HEPXA #### [address] [address] [employer] Engineer: Ramsey Rodriguez MD Monocytes (Bld) [#/Vol] 0.37 10*3/uL Normal 0.10-1.20 [facility] Comment on above: Performed By: #### B MP, CDP, HEPXA #### [place] [place] [address] [employer]: Ramsey Rodriguez MD Monocytes/100 WBC (Bld) 7 % Normal 3-12 [facility] Comment on above: Performed By: #### B MP, CDP, HEPXA #### [place] [place] [address] [employer] Build Engineer: Ramsey Rodriguez MD Neutrophil (Seg) 60 % Normal 36-65 [facility] Comment on above: Performed By: #### B MP, CDP, HEPXA #### [address] [address] [employer] Build Engineer: Ramsey Rodriguez MD NRBC Automated 0.0 per 100 WBC Normal 0.0 [facility] Comment on above: Performed By: #### B MP, CDP, HEPXA #### [address] [address] [employer] Build Engineer: Ramsey Rodriguez MD Platelet mean volume (Bld) [Entitic vol] 10.4 fL Normal 8.1-13.5 [facility] Comment on above: Performed By: #### B MP, CDP, HEPXA #### [address] [address] [employer] Build Engineer: Ramsey Rodriguez MD Platelets (Bld) [#/Vol] 144 10*3/uL Normal 138-453 [facility] Comment on above: Performed By: #### B MP, CDP, HEPXA #### [address] [address] [employer] Build Engineer: Ramsey Rodriguez MD RBC (Bld) [#/Vol] 3.31 10*6/uL Low 4.21-5.77 [facility] Comment on above: Performed By: #### B MP, CDP, HEPXA #### [address] [address] [employer] Build Engineer: Ramsey Rodriguez MD RBC morphology finding Nom (Bld) ANISOCYTOSIS PRESENT Normal [facility] Comment on above: Performed By: #### B MP, CDP, HEPXA #### [address] [address] [employer] Build Engineer: Ramsey Rodriguez MD WBC (Bld) [#/Vol] 5.1 10*3/uL Normal 3.5-11.3 [facility] Comment on above: Performed By: #### B MP, CDP, HEPXA #### [facility] [employer] [address] [place] [address] [employer] Build Engineer: Ramsey Rodriguez MD Heparin Anti-Xaon 08-29-2023 Heparin Anti-Xa 0.35 IU/L Normal [facility] Comment on above: Performed By: #### H EPXA, CBC, PTT, PT #### [address] [address] [employer] Build Engineer: Ramsey Rodriguez MD Heparin Anti-Xa 0.38 IU/L Normal [facility] Comment on above: Performed By: #### B MP, TROPI #### [facility] [employer] [address] [place] [address] [employer] Build Engineer: Ramsey Rodriguez MD Heparin Anti-Xa 0.40 IU/L Normal [facility] Comment on above: Performed By: #### B MP, CDP, HEPXA #### [facility] [employer] [address] [place] [address] [employer] Build Engineer: Ramsey Rodriguez MD Magnesiumon 08-29-2023 Magnesium [Mass/Vol] 2.1 mg/dL Normal 1.6-2.4 [facility] Comment on above: Performed By: #### B MP, CDP, HEPXA #### [facility] [employer] [address] [place] [address] [employer] Build Engineer: Ramsey Rodriguez MD Phosphorus, Inorg.on 024 Phosphorus, Inorg. 2.7 mg/dL Normal 2.5-4.5 [facility] Comment on above: Performed By: #### B MP, CDP, HEPXA #### [facility] [employer] [address] [place] [address] [employer] Build Engineer: Ramsey Rodriguez MD Troponinon 08-29-2023 Troponin, High Sens 142 ng/L Critically high 0-22 [facility] Comment on above: Result Comment: High Sensitivity Troponin values cannot be compared with other Troponin methodologies. Previous Alert Value Reported Performed By: #### T ROPI #### [address] [address] [employer] Build Engineer: Ramsey Rodriguez MD Troponin, High Sens 159 ng/L Critically high 0-22 [facility] Comment on above: Result Comment: High Sensitivity Troponin values cannot be compared with other Troponin methodologies. Previous Alert Value Reported Performed By: #### B MP, CDP, HEPXA #### [facility] [employer] [address] [place] [address] [employer] Build Engineer: Ramsey Rodriguez MD Troponin, High Sens 162 ng/L Critically high 022 [facility] Comment on above: Result Comment: High Sensitivity Troponin values cannot be compared with other Troponin methodologies. Previous Alert Value Reported Performed By: #### B MP, CDP, HEPXA #### [facility] [employer] [address] [place] [address] [employer] Build Engineer: Ramsey Rodriguez MD APTTon 08-28-2023 aPTT Coag (Bld) [Time] 28.4 s Normal 23.0-36.5 [facility] Comment on above: Result Comment: IV Heparin Therapy Range: 66.0-92.0 sec Performed By: #### H EPXA, CBC, PTT, PT #### [employer] [address] [place] [address] [employer] Build Engineer: Ramsey Rodriguez MD Basic Metabolic Profon 08-27 Anion gap [Moles/Vol] 8 mmol/L Low 9-16 [facility] Comment on above: Performed By: #### B MP, TROPI #### [facility] [address] [place] [address] [phone] [employer] Build Engineer: Ramsey Rodriguez MD Calcium [Mass/Vol] 8.3 mg/dL Low 8.6-10.4 [facility] Comment on above: Performed By: #### B MP, TROPI #### [facility] [address] [place] [address] [employer] Build Engineer: Ramsey Rodriguez MD Chloride [Moles/Vol] 103 mmol/L Normal 98-107 [facility] Comment on above: Performed By: #### B MP, TROPI #### [facility] [address] [place] [address] [employer] Build Engineer: Ramsey Rodriguez MD CO2 [Moles/Vol] 27 mmol/L Normal 20-31 [facility] Comment on above: Performed By: #### B EDWARD, TROPI #### [facility] [employer] [address] [place] [address] [employer] Build Engineer: Ramsey Rodriguez MD Creatinine [Mass/Vol] 0.5 mg/dL Low 0.70-1.20 [facility] Comment on above: Performed By: #### B EDWARD, TROPI #### [address] [address] [employer] Build Engineer: Ramsey Rodriguez MD GFR/1.73 sq M.predicted among non-blacks MDRD (S/P/Bld) [Vol rate/Area] mL/min/{1.73_m2} Normal >60 [facility] Comment on above: Result Comment: These results [...] Performed By: #### B EDWARD, TROPI #### [facility] [employer] [address] [place] [address] [phone] [employer] Build Engineer: Ramsey Rodriguez MD Glucose [Mass/Vol] 112 mg/dL High 74-99 [facility] Comment on above: Performed By: #### B EDWARD TROPI #### [facility] [employer] [address] [place] [address] [employer] Build Engineer: Ramsey Rodriguez MD Potassium [Moles/Vol] 3.7 mmol/L Normal 3.7-5.3 [facility] Comment on above: Performed By: #### B EDWARD TROPI #### [facility] [employer] [address] [place] [address] [employer] Build Engineer: Ramsey Rodriguez MD Sodium [Moles/Vol] 138 mmol/L Normal 136-145 [facility] Comment on above: Performed By: #### B EDWARD TROPI #### [facility] [employer] [address] [place] [address] [employer] Build Engineer: Ramsey Rodriguez MD Urea nitrogen [Mass/Vol] 9 mg/dL Normal 8-23 [facility] Comment on above: Performed By: #### B EDWARD TROPI #### [address] [address] [employer] Build Engineer: Ramsey Rodriguez MD Anion gap [Moles/Vol] 8 mmol/L Low 9-16 [facility] Comment on above: Performed By: #### T ROPI #### [address] [address] [employer] Build Engineer: Ramsey Rodriguez MD Chloride [Moles/Vol] 105 mmol/L Normal 98-107 [facility] Comment on above: Performed By: #### T ROPI #### [address] [address] [employer] Build Engineer: Rasmey Rodriguez MD Potassium [Moles/Vol] 3.5 mmol/L Low 3.7-5.3 [facility] Comment on above: Performed By: #### T ROPI #### [address] [address] [employer] Build Engineer: Ramsey Rodriguez MD Sodium [Moles/Vol] 139 mmol/L Normal 136-145 [facility] Comment on above: Performed By: #### T ROPI #### [address] [address] [employer] Build Engineer: Ramsey Rodriguez MD Calcium [Mass/Vol] 7.9 mg/dL Low 8.6-10.4 [facility] Comment on above: Performed By: #### T ROPI #### [address] [address] [employer] Build Engineer: Ramsey Rodriguez MD CO2 [Moles/Vol] 26 mmol/L Normal 20-31 [facility] Comment on above: Performed By: #### T ROPI #### [address] [address] [employer] Build Engineer: Ramsey Rodriguez MD Creatinine [Mass/Vol] 0.5 mg/dL Low 0.70-1.20 [facility] Comment on above: Performed By: #### T ROPI #### [address] [address] [employer] Build Engineer: Ramsey Rodriguez MD GFR/1.73 sq M.predicted among non-blacks MDRD (S/P/Bld) [Vol rate/Area] mL/min/{1.73_m2} Normal >60 [facility] Comment on above: Result Comment: These results [...] secretion. Performed By: #### T ROPI #### [address] [address] [employer] Build Engineer: Ramsey Rodriguez MD Glucose [Mass/Vol] 106 mg/dL High 74-99 [facility] Comment on above: Performed By: #### T ROPI #### [address] [address] [employer] Build Engineer: Ramsey Rodriguez MD Urea nitrogen [Mass/Vol] 10 mg/dL Normal 8-23 [facility] Comment on above: Performed By: #### T ROPI #### [address] [address] [employer] Build Engineer: Ramesy Rodriguez MD CBCon 08-28-2023 Erythrocyte distribution width (RBC) [Ratio] 15.6 % High 11.8-14.4 [facility] Comment on above: Performed By: #### H EPXA, CBC, PTT, PT #### [address] [address] [employer] Build Engineer: Ramsey Rodriguez MD Hematocrit (Bld) [Volume fraction] 34.1 % Low 40.7-50.3 [facility] Comment on above: Performed By: #### H EPXA, CBC, PTT, PT #### [facility] [employer] [address] [place] [address] [employer] Build Engineer: Ramsey Rodriguez MD Hemoglobin (Bld) [Mass/Vol] 10.7 g/dL Low 13.0-17.0 [facility] Comment on above: Performed By: #### H EPXA, CBC, PTT, PT #### [facility] [employer] [address] [place] [address] [employer] Build Engineer: Ramsey Rodriguez MD MCH (RBC) [Entitic mass] 30.5 pg Normal 25.2-33.5 [facility] Comment on above: Performed By: #### H EPXA, CBC, PTT, PT #### [facility] [employer] [address] [place] [address] [employer] Build Engineer: Ramsey Rodriguez MD MCHC (RBC) [Mass/Vol] 31.4 g/dL Normal 28.4-34.8 [facility] Comment on above: Performed By: #### H EPXA, CBC, PTT, PT #### [address] [address] [employer] Build Engineer: Ramsey Rodriguez MD MCV (RBC) [Entitic vol] 97.2 fL Normal 82.6-102.9 [facility] Comment on above: Performed By: #### H EPXA, CBC, PTT, PT #### [address] [address] [employer] Build Engineer: Ramsey Rodriguez MD NRBC Automated 0.0 per 100 WBC Normal 0.0 [facility] Comment on above: Performed By: #### H EPXA, CBC, PTT, PT #### [address] [address] [employer] Build Engineer: Ramsey Rodriguez MD Platelet mean volume (Bld) [Entitic vol] 10.2 fL Normal 8.1-13.5 [facility] Comment on above: Performed By: #### H EPXA, CBC, PTT, PT #### [address] [address] [employer] Build Engineer: Ramsey Rodriguez MD Platelets (Bld) [#/Vol] 166 10*3/uL Normal 138-453 [facility] Comment on above: Performed By: #### H EPXA, CBC, PTT, PT #### [address] [address] [employer] Build Engineer: Ramsey Rodriguez MD RBC (Bld) [#/Vol] 3.51 10*6/uL Low 4.21-5.77 [facility] Comment on above: Performed By: #### H EPXA, CBC, PTT, PT #### [facility] [address] [place] [address] [employer] Build Engineer: Ramsey Rodriguez MD WBC (Bld) [#/Vol] 6.5 10*3/uL Normal 3.5-11.3 [facility] Comment on above: Performed By: #### H EPXA, CBC, PTT, PT #### [address] [address] [employer] Build Engineer: Ramsey Rodriguez MD CBC with Diffon 08-28-2023 Abs. Basophil <0.03 Normal 0.00-0.20 [facility] Comment on above: Performed By: #### T ROPI #### [address] [address] [employer] Build Engineer: Ramsey Rodriguez MD Abs.Imm.Granulocyte <0.03 Normal 0.00-0.30 [facility] Comment on above: Performed By: #### T ROPI #### [address] [address] [employer] Build Engineer: Ramsey Rodriguez MD Abs.Neutrophil (Seg) 4.13 k/uL Normal 1.50-8.10 [facility] Comment on above: Performed By: #### T ROPI #### [address] [address] [employer] Build Engineer: Ramsey Rodriguez MD Basophils/100 WBC (Bld) 0 % Normal 0-2 [facility] Comment on above: Performed By: #### T ROPI #### [address] [address] [employer] Build Engineer: Ramsey Rodriguez MD Eosinophils (Bld) [#/Vol] 0.27 10*3/uL Normal 0.00-0.44 [facility] Comment on above: Performed By: #### T ROPI #### [address] [address] [employer] Build Engineer: Ramsey Rodriguez MD Eosinophils/100 WBC (Bld) 5 % High 1-4 [facility] Comment on above: Performed By: #### T ROPI #### [address] [address] [employer] Build Engineer: Ramsey Rodriguez MD Erythrocyte distribution width (RBC) [Ratio] 15.7 % High 11.8-14.4 [facility] Comment on above: Performed By: #### T ROPI #### [place] [address] [employer] Build Engineer: Ramsey Rodriguez MD Hematocrit (Bld) [Volume fraction] 34.6 % Low 40.7-50.3 [facility] Comment on above: Performed By: #### T ROPI #### [place] [address] [employer] Build Engineer: Ramsey Rodriguez MD Hemoglobin (Bld) [Mass/Vol] 10.5 g/dL Low 13.0-17.0 [facility] Comment on above: Performed By: #### T ROPI #### [place] [address] [employer] Build Engineer: Ramsey Rodriguez MD Immature granulocytes/100 WBC (Bld) 0 % Normal 0 [facility] Comment on above: Performed By: #### T ROPI #### [place] [address] [employer] Build Engineer: Ramsey Rodriguez MD Lymphocytes (Bld) [#/Vol] 1.01 10*3/uL Low 1.10-3.70 [facility] Comment on above: Performed By: #### T ROPI #### [address] [address] [employer] Build Engineer: Ramsey Rodriguez MD Lymphocytes/100 WBC (Bld) 17 % Low 24-43 [facility] Comment on above: Performed By: #### T ROPI #### [address] [address] [employer] Build Engineer: Ramsey Rodriguez MD MCH (RBC) [Entitic mass] 30.8 pg Normal 25.2-33.5 [facility] Comment on above: Performed By: #### T ROPI #### [address] [address] [employer] Build Engineer: Ramsey Rodriguez MD MCHC (RBC) [Mass/Vol] 30.3 g/dL Normal 28.4-34.8 [facility] Comment on above: Performed By: #### T ROPI #### [address] [address] [employer] Build Engineer: Ramsey Rodriguez MD MCV (RBC) [Entitic vol] 101.5 fL Normal 82.6-102.9 [facility] Comment on above: Performed By: #### T ROPI #### [address] [address] [employer] Build Engineer: Ramsey Rodriguez MD Monocytes (Bld) [#/Vol] 0.39 10*3/uL Normal 0.10-1.20 [facility] Comment on above: Performed By: #### T ROPI #### [address] [address] [employer] Build Engineer: Ramsey Rodriguez MD Monocytes/100 WBC (Bld) 7 % Normal 3-12 [facility] Comment on above: Performed By: #### T ROPI #### [address] [address] [employer] Build Engineer: Ramsey Rodriguez MD Neutrophil (Seg) 71 % High 36-65 [facility] Comment on above: Performed By: #### T ROPI #### [address] [address] [employer] Build Engineer: Ramsey Rodriguez MD NRBC Automated 0.0 per 100 WBC Normal 0.0 [facility] Comment on above: Performed By: #### T ROPI #### [address] [address] [employer] Build Engineer: Ramsey Rodriguez MD Platelet mean volume (Bld) [Entitic vol] 10.3 fL Normal 8.1-13.5 [facility] Comment on above: Performed By: #### T ROPI #### [address] [address] [employer] Build Engineer: Ramsey Rodriguez MD Platelets (Bld) [#/Vol] 145 10*3/uL Normal 138-453 [facility] Comment on above: Performed By: #### T ROPI #### [address] [address] [employer] Build Engineer: Ramsey Rodriguez MD RBC (Bld) [#/Vol] 3.41 10*6/uL Low 4.21-5.77 [facility] Comment on above: Performed By: #### T ROPI #### [address] [address] [employer] Build Engineer: Ramsey Rodriguez MD RBC morphology finding Nom (Bld) ANISOCYTOSIS PRESENT Normal [facility] Comment on above: Performed By: #### T ROPI #### [address] [address] [employer] Build Engineer: Ramsey Rodriguez MD WBC (Bld) [#/Vol] 5.8 10*3/uL Normal 3.5-11.3 [facility] Comment on above: Performed By: #### T ROPI #### [address] [address] [employer] Build Engineer: Ramsey Rodriguez MD FL MODIFIED BARIUM SWALLOW W VIDEOon 08-28-2023 FL MODIFIED BARIUM SWALLOW W VIDEO EXAMINATION: MODIFIED BARIUM SWALLOW WAS PERFORMED IN CONJUNCTION WITH SPEECH PATHOLOGY SERVICES TECHNIQUE: Under fluoroscopic evaluation cineradiography/videor adiography recordings were performed in conjunction with the speech-language pathologist (LABORATORY GENETICIST). Various liquid, solid and/or semi-solid barium preparations were used to assess swallowing function. FLUOROSCOPY DOSE AND TYPE: Radiation Exposure Index: DAP [id number], COMPARISON: None HISTORY: ORDERING SYSTEM PROVIDED HISTORY: dysphagia TECHNOLOGIST PROVIDED HISTORY: dysphagia FINDINGS: Thin liquid: Given by teaspoon no laryngeal penetration or aspiration. Given by straw there is trace laryngeal penetration. No aspiration. [place] thick liquid: Given by teaspoon no laryngeal [...] Christiano Cohen MD 08/28/23 Final result Normal [facility] Glucose,Whole Bloodon 2023 Glucose [Mass/Vol] 86 mg/dL Normal 75-110 [facility] Glucose [Mass/Vol] 87 mg/dL Normal 75-110 [facility] Glucose [Mass/Vol] 105 mg/dL Normal 75-110 [facility] Heparin Anti-Xaon 08-28-2023 Heparin Anti-Xa 0.22 IU/L Normal [facility] Comment on above: Performed By: #### H EPXA, CBC, PTT, PT #### [facility] [employer] [address] [place] [address] [employer] Build Engineer: Ramsey Rodriguez MD Magnesiumon 08-28-2023 Magnesium [Mass/Vol] 2.4 mg/dL Normal 1.6-2.4 [facility] Comment on above: Performed By: #### H EPXA, CBC, PTT, PT #### [facility] [employer] [address] [place] [address] [employer] Build Engineer: Ramsey Rodriguez MD Magnesium [Mass/Vol] 1.7 mg/dL Normal 1.6-2.4 [facility] Comment on above: Performed By: #### T ALLA #### [facility] [address] [place] [address] [employer] Build Engineer: Ramsey Rodriguez MD PTon 08-28-2023 INR Coag (PPP) [Relative time] 1.0 {INR} Normal [facility] Comment on above: Result Comment: Therapeutic Range: Moderate Anticoagulant Intensity: INR = 2.0-3.0 High Anticoagulant Intensity: INR = 2.5-3.5 Performed By: #### H EPXA, CBC, PTT, PT #### [facility] [address] [place] [address] [employer] Build Engineer: Ramsey Rodriguez MD PT Coag (PPP) [Time] 13.5 s Normal 11.7-14.9 [facility] Comment on above: Performed By: #### H EPXA, CBC, PTT, PT #### [facility] [address] [place] [address] [employer] Build Engineer: Ramsey Rodriguez MD Phosphorus, Inorg.on 024 Phosphorus, Inorg. 2.2 mg/dL Low 2.5-4.5 [facility] Comment on above: Performed By: #### H EPXA, CBC, PTT, PT #### [facility] [address] [place] [address] [employer] Build Engineer: Ramsey Rodriguez MD Phosphorus, Inorg. 2.4 mg/dL Low 2.5-4.5 [facility] Comment on above: Performed By: #### T MICHELETI #### [facility] [address] [place] [address] [employer] Build Engineer: Ramsey Rodriguez MD Troponinon 08-28-2023 Troponin, High Sens 142 ng/L Critically high 0-22 [facility] Comment on above: Result Comment: High Sensitivity Troponin values cannot be compared with other Troponin methodologies. Previous Alert Value Reported Performed By: #### H EPXA, CBC, PTT, PT #### [address] [id number] [employer] Build Engineer: Ramsey Rodriguez MD Troponin, High Sens 138 ng/L Critically high 0-22 [facility] Comment on above: Result Comment: High Sensitivity Troponin values cannot be compared with other Troponin methodologies. Performed By: #### B MP, TROPI #### [address] [phone] [employer] Build Engineer: Ramsey Rodriguez MD XR CHEST PORTABLEon 08-28-19 [...] Rafat Dumont MD 08/28/23 Final result Normal [facility] Basic Metabolic Profon 08-26 Anion gap [Moles/Vol] 7 mmol/L Low 9-16 [facility] Comment on above: Performed By: #### H EPXA, CBC, PTT, PT #### [facility] [employer] [address] [place] [address] [phone] [employer] Build Engineer: Ramsey Rodriguez MD Calcium [Mass/Vol] 8.0 mg/dL Low 8.6-10.4 [facility] Comment on above: Performed By: #### H EPXA, CBC, PTT, PT #### [facility] [employer] [address] [place] [address] [phone] [employer] Build Engineer: Ramsey Rodriguez MD Chloride [Moles/Vol] 107 mmol/L Normal 98-107 [facility] Comment on above: Performed By: #### H EPXA, CBC, PTT, PT #### [facility] [address] [place] [address] [employer] Build Engineer: Ramsey Rodriguez MD CO2 [Moles/Vol] 26 mmol/L Normal 20-31 [facility] Comment on above: Performed By: #### H EPXA, CBC, PTT, PT #### [facility] [address] [place] [address] [employer] Build Engineer: Ramsey Rodriguez MD Creatinine [Mass/Vol] 0.6 mg/dL Low 0.70-1.20 [facility] Comment on above: Performed By: #### H EPXA, CBC, PTT, PT #### [address] [address] [employer] Build Engineer: Ramsey Rodriguez MD GFR/1.73 sq M.predicted among non-blacks MDRD (S/P/Bld) [Vol rate/Area] mL/min/{1.73_m2} Normal >60 [facility] Comment on above: Result Comment: These results [...] #### H EPXA, CBC, PTT, PT #### [facility] [address] [place] [address] [employer] Build Engineer: Ramsey Rodirguez MD Glucose [Mass/Vol] 104 mg/dL High 74-99 [facility] Comment on above: Performed By: #### H EPXA, CBC, PTT, PT #### [facility] [employer] [address] [place] [address] [employer] Build Engineer: Ramsey Rodriguez MD Potassium [Moles/Vol] 3.6 mmol/L Low 3.7-5.3 [facility] Comment on above: Performed By: #### H EPXA, CBC, PTT, PT #### [address] [address] [employer] Build Engineer: Rmasey Rodriguez MD Sodium [Moles/Vol] 140 mmol/L Normal 136-145 [facility] Comment on above: Performed By: #### H EPXA, CBC, PTT, PT #### [facility] [employer] [address] [place] [address] [employer] Build Engineer: Ramsey Rodriguez MD Urea nitrogen [Mass/Vol] 14 mg/dL Normal 8-23 [facility] Comment on above: Performed By: #### H EPXA, CBC, PTT, PT #### [address] [address] [employer] Build Engineer: Ramsey Rodriguez MD CBC with Diffon 08-27-2023 Abs. Basophil <0.03 Normal 0.00-0.20 [facility] Comment on above: Performed By: #### H EPXA, CBC, PTT, PT #### [facility] [employer] [address] [place] [address] [employer] Build Engineer: Ramsey Rodriguez MD Abs.Imm.Granulocyte <0.03 Normal 0.00-0.30 [facility] Comment on above: Performed By: #### H EPXA, CBC, PTT, PT #### [facility] [employer] [address] [place] [address] [employer] Build Engineer: Ramsey Rodriguez MD Abs.Neutrophil (Seg) 3.93 k/uL Normal 1.50-8.10 [facility] Comment on above: Performed By: #### H EPXA, CBC, PTT, PT #### [facility] [employer] [address] [place] [address] [employer] Build Engineer: Ramsey Rodriguez MD Basophils/100 WBC (Bld) 0 % Normal 0-2 [facility] Comment on above: Performed By: #### H EPXA, CBC, PTT, PT #### [facility] [employer] [address] [place] [address] [employer] Build Engineer: Ramsey Rodriguez MD Eosinophils (Bld) [#/Vol] 0.25 10*3/uL Normal 0.00-0.44 [facility] Comment on above: Performed By: #### H EPXA, CBC, PTT, PT #### [facility] [employer] [address] [place] [address] [employer] Build Engineer: Ramsey Rodriguez MD Eosinophils/100 WBC (Bld) 5 % High 1-4 [facility] Comment on above: Performed By: #### H EPXA, CBC, PTT, PT #### [facility] [employer] [address] [place] [address] [employer] Build Engineer: Ramsey Rodriguez MD Erythrocyte distribution width (RBC) [Ratio] 15.8 % High 11.8-14.4 [facility] Comment on above: Performed By: #### H EPXA, CBC, PTT, PT #### [facility] [employer] [address] [place] [address] [employer] Build Engineer: Ramsey Rodriguez MD Hematocrit (Bld) [Volume fraction] 33.2 % Low 40.7-50.3 [facility] Comment on above: Performed By: #### H EPXA, CBC, PTT, PT #### [employer] [address] [place] [address] [employer] Build Engineer: Ramsey Rodriguez MD Hemoglobin (Bld) [Mass/Vol] 10.3 g/dL Low 13.0-17.0 [facility] Comment on above: Performed By: #### H EPXA, CBC, PTT, PT #### [facility] [address] [place] [address] [employer] Build Engineer: Ramsey Rodriguez MD Immature granulocytes/100 WBC (Bld) 0 % Normal 0 [facility] Comment on above: Performed By: #### H EPXA, CBC, PTT, PT #### [address] [address] [employer] Build Engineer: Ramsey Rodriguez MD Lymphocytes (Bld) [#/Vol] 1.01 10*3/uL Low 1.10-3.70 [facility] Comment on above: Performed By: #### H EPXA, CBC, PTT, PT #### [facility] [employer] [address] [place] [address] [employer] Build Engineer: Ramsey Rodriguez MD Lymphocytes/100 WBC (Bld) 18 % Low 24-43 [facility] Comment on above: Performed By: #### H EPXA, CBC, PTT, PT #### [address] [address] [employer] Build Engineer: Ramsey Rodriguez MD MCH (RBC) [Entitic mass] 30.6 pg Normal 25.2-33.5 [facility] Comment on above: Performed By: #### H EPXA, CBC, PTT, PT #### [facility] [employer] [address] [place] [address] [employer] Build Engineer: Ramsey Rodriguez MD MCHC (RBC) [Mass/Vol] 31.0 g/dL Normal 28.4-34.8 [facility] Comment on above: Performed By: #### H EPXA, CBC, PTT, PT #### [facility] [employer] [address] [place] [address] [employer] Build Engineer: Ramsey Rodriguez MD MCV (RBC) [Entitic vol] 98.5 fL Normal 82.6-102.9 [facility] Comment on above: Performed By: #### H EPXA, CBC, PTT, PT #### [facility] [employer] [address] [place] [address] [employer] Build Engineer: Ramsey Rodriguez MD Monocytes (Bld) [#/Vol] 0.33 10*3/uL Normal 0.10-1.20 [facility] Comment on above: Performed By: #### H EPXA, CBC, PTT, PT #### [address] [address] [employer] Engineer: Ramsey Rodriguez MD Monocytes/100 WBC (Bld) 6 % Normal 3-12 [facility] Comment on above: Performed By: #### H EPXA, CBC, PTT, PT #### [address] [address] [employer] Build Engineer: Ramsey Rodriguez MD Neutrophil (Seg) 71 % High 36-65 [facility] Comment on above: Performed By: #### H EPXA, CBC, PTT, PT #### [address] [address] [employer] Build Engineer: Ramsey Rodriguez MD NRBC Automated 0.0 per 100 WBC Normal 0.0 [facility] Comment on above: Performed By: #### H EPXA, CBC, PTT, PT #### [address] [address] [employer] Build Engineer: Ramsey Rodriguez MD Platelet mean volume (Bld) [Entitic vol] 10.2 fL Normal 8.1-13.5 [facility] Comment on above: Performed By: #### H EPXA, CBC, PTT, PT #### [facility] [employer] [address] [place] [address] [employer] Engineer: Ramsey Rodriguez MD Platelets (Bld) [#/Vol] 136 10*3/uL Low 138-453 [facility] Comment on above: Performed By: #### H EPXA, CBC, PTT, PT #### [facility] [employer] [address] [place] [address] [employer] Engineer: Ramsey Rodriguez MD RBC (Bld) [#/Vol] 3.37 10*6/uL Low 4.21-5.77 [facility] Comment on above: Performed By: #### H EPXA, CBC, PTT, PT #### [facility] [employer] [address] [place] [address] [employer] Build Engineer: Ramsey Rodriguez MD RBC morphology finding Nom (Bld) ANISOCYTOSIS PRESENT Normal [facility] Comment on above: Performed By: #### H EPXA, CBC, PTT, PT #### [facility] [address] [place] [address] [employer] Build Engineer: Ramsey Rodriguez MD WBC (Bld) [#/Vol] 5.6 10*3/uL Normal 3.5-11.3 [facility] Comment on above: Performed By: #### H EPXA, CBC, PTT, PT #### [facility] [employer] [address] [place] [phone] [employer] Engineer: Ramsey Rodriguez MD Glucose,Whole Bloodon 2023 Glucose [Mass/Vol] 103 mg/dL Normal 75-110 [facility] Glucose [Mass/Vol] 99 mg/dL Normal 75-110 [facility] Glucose [Mass/Vol] 95 mg/dL Normal 75-110 [facility] Magnesiumon 08-27-2023 Magnesium [Mass/Vol] 2.0 mg/dL Normal 1.6-2.4 [facility] Comment on above: Performed By: #### H EPXA, CBC, PTT, PT #### [facility] [address] [place] [address] [employer] Build Engineer: Ramsey Rodriguez MD Phosphorus, Inorg.on 024 Phosphorus, Inorg. 2.4 mg/dL Low 2.5-4.5 [facility] Comment on above: Performed By: #### H EPXA, CBC, PTT, PT #### [facility] [address] [place] [address] [employer] Build Engineer: Ramsey Rodriguez MD Urinalysis, Routineon 2023 Bilirubin, SemiQt,Ur Negative Normal NEG [facility] Comment on above: Performed By: #### B MP, CDP, HEPXA #### [facility] [employer] [address] [place] [address] [employer] Engineer: Ramsey Rodriguez MD Blood, Urine Negative Normal NEG [facility] Comment on above: Performed By: #### B MP, CDP, HEPXA #### [facility] [employer] [address] [place] [address] [employer] Build Engineer: Ramsey Rodriguez MD Clarity (U) Clear Normal CLEAR [facility] Comment on above: Performed By: #### B MP, CDP, HEPXA #### [facility] [address] [place] [address] [employer] Build Engineer: Ramsey Rodriguez MD Color (U) Yellow Normal YEL [facility] Comment on above: Performed By: #### B MP, CDP, HEPXA #### [facility] [address] [place] [address] [employer] Build Engineer: Ramsey Rodriguez MD Comment Microscopic exam not performed based on chemical results unless requested in Normal [facility] Comment on above: Result Comment: orig inal order. Performed By: #### B MP, CDP, HEPXA #### [facility] [address] [place] [address] [employer] Build Engineer: Ramsey Rodriguez MD Glucose Ql (U) Negative Normal NEG [facility] Comment on above: Performed By: #### B MP, CDP, HEPXA #### [employer] [address] [place] [address] [employer] Build Engineer: Ramsey Rodriguez MD Ketones Ql (U) Negative Normal NEG [facility] Comment on above: Performed By: #### B MP, CDP, HEPXA #### [address] [address] [employer] Engineer: Ramsey Rodriguez MD Leukocyte esterase Test strip Ql (U) Negative Normal NEG [facility] Comment on above: Performed By: #### B MP, CDP, HEPXA #### [address] [address] [employer] Build Engineer: Ramsey Rodriguez MD Nitrite,Ur Negative Normal NEG [facility] Comment on above: Performed By: #### B MP, CDP, HEPXA #### [address] [address] [employer] Build Engineer: Ramsey Rodriguez MD PH,Ur 5.5 Normal 5.0-8.0 [facility] Comment on above: Performed By: #### B MP, CDP, HEPXA #### [address] [address] [employer] Build Engineer: Ramsey Rodriguez MD Protein Ql (U) Negative Normal NEG [facility] Comment on above: Performed By: #### B MP, CDP, HEPXA #### [facility] [employer] [address] [place] [address] [employer] Build Engineer: Ramsey Rodriguez MD Spec. [place],Ur 1.008 Normal 1.005-1.030 [facility] Comment on above: Performed By: #### B MP, CDP, HEPXA #### [address] [address] [employer] Build Engineer: Ramsey Rodriguez MD Urobilinogen,Ur Normal Normal 0.0-1.0 [facility] Comment on above: Performed By: #### B MP, CDP, HEPXA #### [facility] [employer] [address] [place] [address] [employer] Build Engineer: Ramsey Rodriguez MD XR CHEST PORTABLEon 08-27-19 [...] Alex Martinez MD 08/27/23 Final result Normal [facility] Arterial Bld Gas,POCon 08-25 Eliazar Test Positive Normal [facility] FIO2 60.0 Normal [facility] HCO3 (Bld) [Moles/Vol] 26.6 mmol/L Normal 21.0-28.0 [facility] O2 Device BIPAP Normal [facility] Oxygen saturation in Blood 99.1 % High 94.0-98.0 [facility] pCO2, Arterial 40.5 mm Hg Normal 35.0-48.0 [facility] pH, Arterial 7.426 Normal 7.350-7.450 [facility] pO2, Arterial 135.5 mm Hg High 83.0-108.0 [facility] Positive Base Excess (calc) 2.1 mmol/L Normal 0.0-3.0 [facility] Site Drawn Right Radial Artery Normal [facility] Basic Metabolic Profon 08-25 Anion gap [Moles/Vol] 5 mmol/L Low 9-16 [facility] Comment on above: Performed By: #### B EDWARD TROPI #### [employer] [address] [place], [place] [phone] [employer] Build Engineer: Ramsey Rodriguez MD Calcium [Mass/Vol] 8.2 mg/dL Low 8.6-10.4 [facility] Comment on above: Performed By: #### B EDWARD TROPI #### [employer] [address] [place] [address] [employer] Build Engineer: Ramsey Rodriguez MD Chloride [Moles/Vol] 107 mmol/L Normal 98-107 [facility] Comment on above: Performed By: #### B MP, TROPI #### [facility] [address] [place] [address] [employer] Build Engineer: Ramsey Rodriguez MD CO2 [Moles/Vol] 26 mmol/L Normal 20-31 [facility] Comment on above: Performed By: #### B MP, TROPI #### [facility] [place] [address] [employer] Build Engineer: Ramsey Rodriguez MD Creatinine [Mass/Vol] 0.6 mg/dL Low 0.70-1.20 [facility] Comment on above: Performed By: #### B MP, TROPI #### [facility] [employer] [address] [place] [address] [employer] Build Engineer: Ramsey Rodriguez MD GFR/1.73 sq M.predicted among non-blacks MDRD (S/P/Bld) [Vol rate/Area] mL/min/{1.73_m2} Normal >60 [facility] Comment on above: Result Comment: These results [...] Performed By: #### B MP, TROPI #### [facility] [address] [place] [address] [employer] Build Engineer: Ramsey Rodriguez MD Glucose [Mass/Vol] 92 mg/dL Normal 74-99 [facility] Comment on above: Performed By: #### B MP, TROPI #### [facility] [address] [place] [address] [employer] Build Engineer: Ramsey Rodriguez MD Potassium [Moles/Vol] 4.2 mmol/L Normal 3.7-5.3 [facility] Comment on above: Performed By: #### B EDWARD TROPI #### [address] [address] [employer] Build Engineer: Ramsey Rodriguez MD Sodium [Moles/Vol] 138 mmol/L Normal 136-145 [facility] Comment on above: Performed By: #### B EDWARD TROPI #### [address] [address] [employer] Build Engineer: Ramsey Rodriguez MD Urea nitrogen [Mass/Vol] 18 mg/dL Normal 8-23 [facility] Comment on above: Performed By: #### B EDWARD TROPI #### [address] [address] [employer] Build Engineer: Ramsey Rodriguez MD CBC with Diffon 08-26-2023 Abs. Basophil <0.03 Normal 0.00-0.20 [facility] Comment on above: Performed By: #### Nicol LEON TROPAbram #### [address] [address] [employer] Build Engineer: Ramsey Rodriguez MD Abs.Imm.Granulocyte <0.03 Normal 0.00-0.30 [facility] Comment on above: Performed By: #### B EDWARD TROPI #### [address] [address] [employer] Build Engineer: Ramsey Rodriguez MD Abs.Neutrophil (Seg) 4.44 k/uL Normal 1.50-8.10 [facility] Comment on above: Performed By: #### B EDWARD TROPI #### [facility] [employer] [address] [place] [address] [employer] Build Engineer: Ramsey Rodriguez MD Basophils/100 WBC (Bld) 0 % Normal 0-2 [facility] Comment on above: Performed By: #### B EDWRAD, TROPI #### [address] [address] [employer] Build Engineer: Ramsey Rodriguez MD Eosinophils (Bld) [#/Vol] 0.17 10*3/uL Normal 0.00-0.44 [facility] Comment on above: Performed By: #### B EDWARD, TROPI #### [facility] [employer] [address] [place] [address] [employer] Engineer: Ramsey Rodriguez MD Eosinophils/100 WBC (Bld) 3 % Normal 1-4 [facility] Comment on above: Performed By: #### B EDWARD, TROPI #### [facility] [employer] [address] [place] [address] [employer] Engineer: Ramsey Rodriguez MD Erythrocyte distribution width (RBC) [Ratio] 15.7 % High 11.8-14.4 [facility] Comment on above: Performed By: #### B EDWARD TROPI #### [place] [address] [employer] Engineer: Ramsey Rodriguez MD Hematocrit (Bld) [Volume fraction] 34.0 % Low 40.7-50.3 [facility] Comment on above: Performed By: #### B EDWARD TROPI #### [facility] [employer] [address] [place] [address] [employer] Engineer: Ramsey Rodriguez MD Hemoglobin (Bld) [Mass/Vol] 10.8 g/dL Low 13.0-17.0 [facility] Comment on above: Performed By: #### B EDWARD, TROPI #### [facility] [employer] [address] [place] [address] [employer] Build Engineer: Ramsey Rodriguez MD Immature granulocytes/100 WBC (Bld) 0 % Normal 0 [facility] Comment on above: Performed By: #### B EDWARD, TROPI #### [address] [address] [employer] Build Engineer: Ramsey Rodriguez MD Lymphocytes (Bld) [#/Vol] 1.18 10*3/uL Normal 1.10-3.70 [facility] Comment on above: Performed By: #### B EDWARD, TROPI #### [address] [address] [employer] Engineer: Ramsey Rodriguez MD Lymphocytes/100 WBC (Bld) 19 % Low 24-43 [facility] Comment on above: Performed By: #### B EDWARD TROPI #### [place] [address] [employer] Engineer: Ramsey Rodriguez MD MCH (RBC) [Entitic mass] 30.7 pg Normal 25.2-33.5 [facility] Comment on above: Performed By: #### Nicol LEON TROPI #### [place] [address] [employer] Engineer: Ramsey Rodriguez MD MCHC (RBC) [Mass/Vol] 31.8 g/dL Normal 28.4-34.8 [facility] Comment on above: Performed By: #### B EDWARD TROPI #### [place] [address] [employer] Engineer: Ramsey Rodriguez MD MCV (RBC) [Entitic vol] 96.6 fL Normal 82.6-102.9 [facility] Comment on above: Performed By: #### B EDWARD TROPI #### [place] [address] [employer] Build Engineer: Ramsey Rodriguez MD Monocytes (Bld) [#/Vol] 0.41 10*3/uL Normal 0.10-1.20 [facility] Comment on above: Performed By: #### B EDWARD, TROPI #### [address] [address] [employer] Build Engineer: Ramsey Rodriguez MD Monocytes/100 WBC (Bld) 7 % Normal 3-12 [facility] Comment on above: Performed By: #### B MP, TROPI #### [address] [address] [employer] Engineer: Ramsey Rodriguez MD Neutrophil (Seg) 71 % High 36-65 [facility] Comment on above: Performed By: #### B MP, TROPI #### [address] [address] [employer] Engineer: Ramsey Rodriguez MD NRBC Automated 0.0 per 100 WBC Normal 0.0 [facility] Comment on above: Performed By: #### B MP, TROPI #### [address] [address] [employer] Engineer: Ramsey Rodriguez MD Platelet mean volume (Bld) [Entitic vol] 9.9 fL Normal 8.1-13.5 [facility] Comment on above: Performed By: #### B MP, TROPI #### [address] [address] [employer] Engineer: Ramsey Rodriguez MD Platelets (Bld) [#/Vol] 143 10*3/uL Normal 138-453 [facility] Comment on above: Performed By: #### B MP, TROPI #### [address] [address] [employer] Build Engineer: Ramsey Rodriguez MD RBC (Bld) [#/Vol] 3.52 10*6/uL Low 4.21-5.77 [facility] Comment on above: Performed By: #### B MP, TROPI #### [address] [address] [employer] Build Engineer: Ramsey Rodriguez MD RBC morphology finding Nom (Bld) ANISOCYTOSIS PRESENT Normal [facility] Comment on above: Performed By: #### B KAITLYNN LEON #### [address] [address] [employer] Engineer: Ramsey Rodriguez MD WBC (Bld) [#/Vol] 6.2 10*3/uL Normal 3.5-11.3 [facility] Comment on above: Performed By: #### B KAITLYNN LEON #### [address] [address] [employer] Engineer: Ramsey Rodriguez MD Gl Hemostasis TEG w/Lysison 08-26-2023 Fibrinogen, Func TEG 5.4 mm Low 15.0-32.0 [facility] Comment on above: Performed By: #### H EPXA, CBC, PTT, PT #### [address] [address] [employer] Engineer: Ramsey Rodriguez MD LY30 (Lysis) TEG 0.0 % Normal 0.0-2.6 [facility] Comment on above: Performed By: #### H EPXA, CBC, PTT, PT #### [address] [address] [employer] Build Engineer: Ramsey Rodriguez MD MA Rapid TEG <40.0 Low 52.0-70 [facility] Comment on above: Performed By: #### H EPXA, CBC, PTT, PT #### [address] [address] [employer] Build Engineer: Ramsey Rodriguez MD R(Reaction Time) TEG >17.0 High 4.6-9.1 [facility] Comment on above: Performed By: #### H EPXA, CBC, PTT, PT #### [address] [address] [employer] Build Engineer: Ramsey Rodriguez MD Glucose,Whole Bloodon 2023 Glucose [Mass/Vol] 99 mg/dL Normal 75-110 [facility] Glucose [Mass/Vol] 86 mg/dL Normal 75-110 [facility] Glucose [Mass/Vol] 101 mg/dL Normal 75-110 [facility] Glucose [Mass/Vol] 86 mg/dL Normal 75-110 [facility] Magnesiumon 08-26-2023 Magnesium [Mass/Vol] 1.7 mg/dL Normal 1.6-2.4 [facility] Comment on above: Performed By: #### T ROPI #### [employer] [address] [place] [address] [phone] [employer] Engineer: Ramsey Rodriguez MD PTon 08-26-2023 INR Coag (PPP) [Relative time] 1.1 {INR} Normal [facility] Comment on above: Result Comment: Therapeutic Range: Moderate Anticoagulant Intensity: INR = 2.0-3.0 High Anticoagulant Intensity: INR = 2.5-3.5 Performed By: #### B MP, TROPI #### [employer] [facility] [place], [place] [id number] [employer] Engineer: Ramsey Rodriguez MD PT Coag (PPP) [Time] 13.7 s Normal 11.7-14.9 [facility] Comment on above: Performed By: #### B MP, TROPI #### [employer] [address] [place] [address] [phone] [employer] Engineer: Ramsey Rodriguez MD XR CHEST PORTABLEon 08-26-19 [...] Jordy Michel MD 08/26/23 Final result Normal [facility] Basic Metab w/rfx MGon 08-24 Anion gap [Moles/Vol] 7 mmol/L Low 9-16 [facility] Comment on above: Performed By: #### T ROPI #### [address] [address] [employer] Engineer: Ramsey Rodriguez MD Calcium [Mass/Vol] 7.8 mg/dL Low 8.6-10.4 [facility] Comment on above: Performed By: #### T ROPI #### [address] [address] [employer] Build Engineer: Ramsey Rodriguez MD Chloride [Moles/Vol] 109 mmol/L High 98-107 [facility] Comment on above: Performed By: #### T ROPI #### [address] [address] [employer] Build Engineer: Ramsey Rodriguez MD CO2 [Moles/Vol] 21 mmol/L Normal 20-31 [facility] Comment on above: Performed By: #### T ROPI #### [address] [address] [employer] Engineer: Ramsey Rodriguez MD Creatinine [Mass/Vol] 0.5 mg/dL Low 0.70-1.20 [facility] Comment on above: Performed By: #### T ROPI #### [address] [address] [employer] Engineer: Ramsey Rodriguez MD GFR/1.73 sq M.predicted among non-blacks MDRD (S/P/Bld) [Vol rate/Area] mL/min/{1.73_m2} Normal >60 [facility] Comment on above: Result Comment: These results [...] secretion. Performed By: #### T ROPI #### [address] [address] [employer] Engineer: Ramsey Rodriguez MD Glucose [Mass/Vol] 79 mg/dL Normal 74-99 [facility] Comment on above: Performed By: #### T ROPI #### [address] [address] [employer] Engineer: Ramsey Rodriguez MD Potassium [Moles/Vol] 4.5 mmol/L Normal 3.7-5.3 [facility] Comment on above: Performed By: #### T ROPI #### [address] [address] [employer] Engineer: Ramsey Rodriguez MD Sodium [Moles/Vol] 137 mmol/L Normal 136-145 [facility] Comment on above: Performed By: #### T ROPI #### [address] [address] [employer] Engineer: Ramsey Rodriguez MD Urea nitrogen [Mass/Vol] 13 mg/dL Normal 8-23 [facility] Comment on above: Performed By: #### T ROPI #### [address] [address] [employer] Build Engineer: Ramsey Rodriguez MD CBC with Diffon 08-25-2023 Abs. Basophil <0.03 Normal 0.00-0.20 [facility] Comment on above: Performed By: #### T ROPI #### [address] [address] [employer] Engineer: Ramsey Rodriguez MD Abs.Imm.Granulocyte <0.03 Normal 0.00-0.30 [facility] Comment on above: Performed By: #### T ROPI #### [place] [address] [employer]: Ramsey Rodriguez MD Abs.Neutrophil (Seg) 2.56 k/uL Normal 1.50-8.10 [facility] Comment on above: Performed By: #### T ROPI #### [place] [address] [employer]: Ramsey Rodriguez MD Basophils/100 WBC (Bld) 1 % Normal 0-2 [facility] Comment on above: Performed By: #### T ROPI #### [place] [address] [employer]: Ramsey Rodriguez MD Eosinophils (Bld) [#/Vol] 0.18 10*3/uL Normal 0.00-0.44 [facility] Comment on above: Performed By: #### T ROPI #### [place] [address] [employer]: Ramsey Rodriguez MD Eosinophils/100 WBC (Bld) 4 % Normal 1-4 [facility] Comment on above: Performed By: #### T ROPI #### [place] [address] [employer] Engineer: Ramsey Rodriguez MD Erythrocyte distribution width (RBC) [Ratio] 15.8 % High 11.8-14.4 [facility] Comment on above: Performed By: #### T ROPI #### [place] [address] [employer] Engineer: Ramsey Rodriguez MD Hematocrit (Bld) [Volume fraction] 33.3 % Low 40.7-50.3 [facility] Comment on above: Performed By: #### T ROPI #### [address] [address] [employer] Engineer: Ramsey Rodriguez MD Hemoglobin (Bld) [Mass/Vol] 10.4 g/dL Low 13.0-17.0 [facility] Comment on above: Performed By: #### T ROPI #### [address] [address] [employer] Engineer: Ramsey Rodriguez MD Immature granulocytes/100 WBC (Bld) 0 % Normal 0 [facility] Comment on above: Performed By: #### T ROPI #### [address] [address] [employer] Engineer: Ramsey Rodriguez MD Lymphocytes (Bld) [#/Vol] 1.22 10*3/uL Normal 1.10-3.70 [facility] Comment on above: Performed By: #### T ROPI #### [address] [address] [employer] Engineer: Ramsey Rodriguez MD Lymphocytes/100 WBC (Bld) 28 % Normal 24-43 [facility] Comment on above: Performed By: #### T ROPI #### [address] [address] [employer] Engineer: Ramsey Rodriguez MD MCH (RBC) [Entitic mass] 31.0 pg Normal 25.2-33.5 [facility] Comment on above: Performed By: #### T ROPI #### [address] [address] [employer] Engineer: Ramsey Rodriguez MD MCHC (RBC) [Mass/Vol] 31.2 g/dL Normal 28.4-34.8 [facility] Comment on above: Performed By: #### T ROPI #### [address] [address] [employer] Engineer: Ramsey Rodriguez MD MCV (RBC) [Entitic vol] 99.4 fL Normal 82.6-102.9 [facility] Comment on above: Performed By: #### T ROPI #### [address] [address] [employer] Engineer: Ramsey Rodriguez MD Monocytes (Bld) [#/Vol] 0.32 10*3/uL Normal 0.10-1.20 [facility] Comment on above: Performed By: #### T ROPI #### [place] [address] [employer] Engineer: Ramsey Rodriguez MD Monocytes/100 WBC (Bld) 7 % Normal 3-12 [facility] Comment on above: Performed By: #### T ROPI #### [place] [address] [employer] Engineer: Ramsey Rodriguez MD Neutrophil (Seg) 60 % Normal 36-65 [facility] Comment on above: Performed By: #### T ROPI #### [place] [address] [employer] Engineer: Ramsey Rodriguez MD NRBC Automated 0.0 per 100 WBC Normal 0.0 [facility] Comment on above: Performed By: #### T ROPI #### [place] [address] [employer] Engineer: Ramsey Rodriguez MD Platelet mean volume (Bld) [Entitic vol] 10.0 fL Normal 8.1-13.5 [facility] Comment on above: Performed By: #### T ROPI #### [address] [address] [employer] Engineer: Ramsey Rodriguez MD Platelets (Bld) [#/Vol] 143 10*3/uL Normal 138-453 [facility] Comment on above: Performed By: #### T ROPI #### [facility] [address] [place] [address] [employer] Engineer: Ramsey Rodriguez MD RBC (Bld) [#/Vol] 3.35 10*6/uL Low 4.21-5.77 [facility] Comment on above: Performed By: #### T ROPI #### [id number] [place] [address] [employer] Engineer: Ramsey Rodriguez MD RBC morphology finding Nom (Bld) ANISOCYTOSIS PRESENT Normal [facility] Comment on above: Performed By: #### T ROPI #### [facility] [place] [address] [employer] Engineer: Ramsey Rodriguez MD WBC (Bld) [#/Vol] 4.3 10*3/uL Normal 3.5-11.3 [facility] Comment on above: Performed By: #### T ROPI #### [address] [address] [employer] Engineer: Ramsey Rodriguez MD Glucose,Whole Bloodon 2023 Glucose [Mass/Vol] 88 mg/dL Normal 75-110 [facility] Glucose [Mass/Vol] 102 mg/dL Normal 75-110 [facility] Glucose [Mass/Vol] 104 mg/dL Normal 75-110 [facility] Glucose [Mass/Vol] 80 mg/dL Normal 75-110 [facility] XR ABDOMEN (KUB) (SINGLE AP VIEW)on 08-25-2023 [...] Gerardo Stafford MD 08/25/23 Final result Normal [facility] Basic Metab w/rfx MGon 08-23 Anion gap [Moles/Vol] 6 mmol/L Low 9-16 [facility] Comment on above: Performed By: #### B MP, CDP, HEPXA #### [facility] [address] [place] [address] [employer] Engineer: Ramsey Rodriguez MD Chloride [Moles/Vol] 108 mmol/L High 98-107 [facility] Comment on above: Performed By: #### B MP, CDP, HEPXA #### [facility] [address] [place] [address] [employer] Engineer: Ramsey Rodriguez MD Potassium [Moles/Vol] 4.2 mmol/L Normal 3.7-5.3 [facility] Comment on above: Performed By: #### B MP, CDP, HEPXA #### [facility] [address] [place] [address] [employer] Engineer: Ramsey Rodriguez MD Sodium [Moles/Vol] 139 mmol/L Normal 136-145 [facility] Comment on above: Performed By: #### B MP, CDP, HEPXA #### [employer] [address] [place] [address] [employer] Engineer: Ramsey Rodriguez MD Calcium [Mass/Vol] 8.1 mg/dL Low 8.6-10.4 [facility] Comment on above: Performed By: #### B MP, CDP, HEPXA #### [facility] [address] [place] [address] [employer] Engineer: Ramsey Rodriguez MD CO2 [Moles/Vol] 25 mmol/L Normal 20-31 [facility] Comment on above: Performed By: #### B EDWARD CDP, HEPXA #### [facility] [place] [address] [employer] Engineer: Ramsey Rodriguez MD Creatinine [Mass/Vol] 0.5 mg/dL Low 0.70-1.20 [facility] Comment on above: Performed By: #### B MP, CDP, HEPXA #### [facility] [address] [place] [address] [employer] Engineer: Ramsey Rodriguez MD GFR/1.73 sq M.predicted among non-blacks MDRD (S/P/Bld) [Vol rate/Area] mL/min/{1.73_m2} Normal >60 [facility] Comment on above: Result Comment: These results [...] By: #### B FABIANO LEON, HEPXA #### [facility] [employer] [address] [place] [address] [employer] Engineer: Ramsey Rodriguez MD Glucose [Mass/Vol] 105 mg/dL High 74-99 [facility] Comment on above: Performed By: #### B MP, CDP, HEPXA #### [facility] [address] [place] [address] [employer] Engineer: Ramsey Rodriguez MD Urea nitrogen [Mass/Vol] 12 mg/dL Normal 8-23 [facility] Comment on above: Performed By: #### B MP, CDP, HEPXA #### [facility] [address] [place] [address] [employer] Engineer: Ramsey Rodriguez MD CBC with Diffon 08-24-2023 Abs. Basophil <0.03 Normal 0.00-0.20 [facility] Comment on above: Performed By: #### B MP, CDP, HEPXA #### [address] [address] [employer] Engineer: Ramsey Rodriguez MD Abs.Imm.Granulocyte <0.03 Normal 0.00-0.30 [facility] Comment on above: Performed By: #### B MP, CDP, HEPXA #### [place] [address] [employer] Engineer: Ramsey Rodriguez MD Abs.Neutrophil (Seg) 3.28 k/uL Normal 1.50-8.10 [facility] Comment on above: Performed By: #### B MP, CDP, HEPXA #### [place] [address] [employer] Engineer: Ramsey Rodriguez MD Basophils/100 WBC (Bld) 0 % Normal 0-2 [facility] Comment on above: Performed By: #### B MP, CDP, HEPXA #### [address] [address] [employer] Engineer: Ramsey Rodriguez MD Eosinophils (Bld) [#/Vol] 0.29 10*3/uL Normal 0.00-0.44 [facility] Comment on above: Performed By: #### B MP, CDP, HEPXA #### [facility] [address] [place] [address] [employer] Engineer: Ramsey Rodriguez MD Eosinophils/100 WBC (Bld) 6 % High 1-4 [facility] Comment on above: Performed By: #### B MP, CDP, HEPXA #### [facility] [employer] [address] [place] [address] [employer] Engineer: Ramsey Rodriguez MD Erythrocyte distribution width (RBC) [Ratio] 15.7 % High 11.8-14.4 [facility] Comment on above: Performed By: #### B MP, CDP, HEPXA #### [facility] [employer] [address] [place] [address] [employer] Engineer: Ramsey Rodriguez MD Hematocrit (Bld) [Volume fraction] 33.4 % Low 40.7-50.3 [facility] Comment on above: Performed By: #### B MP, CDP, HEPXA #### [facility] [employer] [address] [place] [address] [employer] Engineer: Ramsey Rodriguez MD Hemoglobin (Bld) [Mass/Vol] 10.5 g/dL Low 13.0-17.0 [facility] Comment on above: Performed By: #### B MP, CDP, HEPXA #### [address] [address] [employer] Engineer: Ramsey Rodriguez MD Immature granulocytes/100 WBC (Bld) 0 % Normal 0 [facility] Comment on above: Performed By: #### B MP, CDP, HEPXA #### [address] [address] [employer] Build Engineer: Ramsey Rodriguez MD Lymphocytes (Bld) [#/Vol] 0.89 10*3/uL Low 1.10-3.70 [facility] Comment on above: Performed By: #### B MP, CDP, HEPXA #### [facility] [employer] [address] [place] [address] [employer] Engineer: Ramsey Rodriguez MD Lymphocytes/100 WBC (Bld) 19 % Low 24-43 [facility] Comment on above: Performed By: #### B MP, CDP, HEPXA #### [facility] [employer] [address] [place] [address] [employer] Engineer: Ramsey Rodriguez MD MCH (RBC) [Entitic mass] 30.9 pg Normal 25.2-33.5 [facility] Comment on above: Performed By: #### B MP, CDP, HEPXA #### [address] [address] [employer] Engineer: Ramsey Rodriguez MD MCHC (RBC) [Mass/Vol] 31.4 g/dL Normal 28.4-34.8 [facility] Comment on above: Performed By: #### B MP, CDP, HEPXA #### [address] [address] [employer] Engineer: Ramsey Rodriguez MD MCV (RBC) [Entitic vol] 98.2 fL Normal 82.6-102.9 [facility] Comment on above: Performed By: #### B MP, CDP, HEPXA #### [address] [address] [employer] Engineer: Ramsey Rodriguez MD Monocytes (Bld) [#/Vol] 0.26 10*3/uL Normal 0.10-1.20 [facility] Comment on above: Performed By: #### B MP, CDP, HEPXA #### [address] [address] [employer] Engineer: Ramsey Rodriguez MD Monocytes/100 WBC (Bld) 6 % Normal 3-12 [facility] Comment on above: Performed By: #### B MP, CDP, HEPXA #### [facility] [employer] [address] [place] [address] [employer] Engineer: Ramsey Rodriguez MD Neutrophil (Seg) 69 % High 36-65 [facility] Comment on above: Performed By: #### B MP, CDP, HEPXA #### [facility] [employer] [address] [place] [address] [employer] Engineer: Ramsey Rodriguez MD NRBC Automated 0.0 per 100 WBC Normal 0.0 [facility] Comment on above: Performed By: #### B MP, CDP, HEPXA #### [address] [address] [employer] Engineer: Ramsey Rodriguez MD Platelet mean volume (Bld) [Entitic vol] 10.0 fL Normal 8.1-13.5 [facility] Comment on above: Performed By: #### B MP, CDP, HEPXA #### [address] [address] [employer] Engineer: Ramsey Rodriguez MD Platelets (Bld) [#/Vol] 141 10*3/uL Normal 138-453 [facility] Comment on above: Performed By: #### B MP, CDP, HEPXA #### [address] [address] [employer] Engineer: Ramsey Rodriguez MD RBC (Bld) [#/Vol] 3.40 10*6/uL Low 4.21-5.77 [facility] Comment on above: Performed By: #### B MP, CDP, HEPXA #### [address] [address] [employer] Engineer: Ramsey Rodriguez MD RBC morphology finding Nom (Bld) ANISOCYTOSIS PRESENT Normal [facility] Comment on above: Performed By: #### B MP, CDP, HEPXA #### [address] [address] [employer] Engineer: Ramsey Rodriguez MD WBC (Bld) [#/Vol] 4.8 10*3/uL Normal 3.5-11.3 [facility] Comment on above: Performed By: #### B MP, CDP, HEPXA #### [address] [address] [employer] Engineer: Ramsey Rodriguez MD Glucose,Whole Bloodon 2023 Glucose [Mass/Vol] 92 mg/dL Normal 75-110 [facility] Glucose [Mass/Vol] 81 mg/dL Normal 75-110 [facility] Glucose [Mass/Vol] 99 mg/dL Normal 75-110 [facility] Glucose [Mass/Vol] 94 mg/dL Normal 75-110 [facility] XR CHEST PORTABLEon 08-24-19 XR CHEST PORTABLE [...] Alex Martinez MD 08/24/23 Final result Normal [facility] Basic Metab w/rfx MGon 08-22 Anion gap [Moles/Vol] 6 mmol/L Low 9-16 [facility] Comment on above: Performed By: #### B EDWARD TROPAbram #### [facility] [employer] [address] [place] [address] [employer] Engineer: Ramsey Rodriguez MD Calcium [Mass/Vol] 8.1 mg/dL Low 8.6-10.4 [facility] Comment on above: Performed By: #### B EDWARD TROPI #### [facility] [address] [place], [place] [id number] [employer] Build Engineer: Ramsey Rodriguez MD Chloride [Moles/Vol] 107 mmol/L Normal 98-107 [facility] Comment on above: Performed By: #### B EDWARD TROPI #### [facility] [employer] [address] [place], [place] [id number] [employer] Build Engineer: Ramsey Rodriguez MD CO2 [Moles/Vol] 25 mmol/L Normal 20-31 [facility] Comment on above: Performed By: #### B EDWARD TROPI #### [facility] [employer] [address] [place] [address] [employer] Engineer: Ramsey Rodriguez MD Creatinine [Mass/Vol] 0.5 mg/dL Low 0.70-1.20 [facility] Comment on above: Performed By: #### B EDWARD TROPI #### [facility] [employer] [address] [place] [address] [employer] Engineer: Ramsey Rodriguez MD GFR/1.73 sq M.predicted among non-blacks MDRD (S/P/Bld) [Vol rate/Area] mL/min/{1.73_m2} Normal >60 [facility] Comment on above: Result Comment: These results [...] Performed By: #### B EDWARD TROPI #### [facility] [employer] [address] [place] [address] [employer] Engineer: Ramsey Rodriguez MD Glucose [Mass/Vol] 111 mg/dL High 74-99 [facility] Comment on above: Performed By: #### B EDWARD TROPI #### [facility] [address] [place] [address] [employer] Engineer: Ramsey Rodriguez MD Potassium [Moles/Vol] 4.1 mmol/L Normal 3.7-5.3 [facility] Comment on above: Performed By: #### B EDWARD TROPI #### [facility] [address] [place] [address] [employer] Build Engineer: Ramsey Rodriguez MD Sodium [Moles/Vol] 138 mmol/L Normal 136-145 [facility] Comment on above: Performed By: #### B EDWARD TROPI #### [address] [address] [employer] Build Engineer: Ramsey Rodriguez MD Urea nitrogen [Mass/Vol] 17 mg/dL Normal 8-23 [facility] Comment on above: Performed By: #### B EDWARD, TROPI #### [facility] [employer] [address] [place] [address] [employer] Build Engineer: Ramsey Rodriguez MD CBC with Diffon 08-23-2023 Abs. Basophil <0.03 Normal 0.00-0.20 [facility] Comment on above: Performed By: #### B EDWARD TROPI #### [facility] [employer] [address] [place] [address] [employer] Engineer: Ramsey Rodriguez MD Abs.Imm.Granulocyte <0.03 Normal 0.00-0.30 [facility] Comment on above: Performed By: #### B EDWARD TROPI #### [address] [address] [employer] Build Engineer: Ramsey Rodriguez MD Abs.Neutrophil (Seg) 4.44 k/uL Normal 1.50-8.10 [facility] Comment on above: Performed By: #### B EDWARD TROPI #### [place] [address] [employer] Engineer: Ramsey Rodriguez MD Basophils/100 WBC (Bld) 0 % Normal 0-2 [facility] Comment on above: Performed By: #### B EDWARD TROPI #### [facility] [employer] [address] [place] [address] [employer] Engineer: Ramsey Rodriguez MD Eosinophils (Bld) [#/Vol] 0.26 10*3/uL Normal 0.00-0.44 [facility] Comment on above: Performed By: #### B EDWARD TROPI #### [facility] [place] [address] [employer] Build Engineer: Ramsey Rodriguez MD Eosinophils/100 WBC (Bld) 4 % Normal 1-4 [facility] Comment on above: Performed By: #### B MP, TROPI #### [facility] [employer] [address] [place] [address] [employer] Engineer: Ramsey Rodriguez MD Erythrocyte distribution width (RBC) [Ratio] 15.8 % High 11.8-14.4 [facility] Comment on above: Performed By: #### B EDWARD TROPI #### [facility] [employer] [address] [place] [address] [employer] Engineer: Ramsey Rodriguez MD Hematocrit (Bld) [Volume fraction] 35.5 % Low 40.7-50.3 [facility] Comment on above: Performed By: #### B EDWARD TROPI #### [facility] [employer] [address] [place] [address] [employer] Build Engineer: Ramsey Rodriguez MD Hemoglobin (Bld) [Mass/Vol] 10.8 g/dL Low 13.0-17.0 [facility] Comment on above: Performed By: #### B EDWARD, TROPI #### [facility] [employer] [address] [place] [address] [employer] Build Engineer: Ramsey Rodriguez MD Immature granulocytes/100 WBC (Bld) 0 % Normal 0 [facility] Comment on above: Performed By: #### B EDWARD, TROPI #### [facility] [employer] [address] [place] [address] [employer] Engineer: Ramsey Rodriguez MD Lymphocytes (Bld) [#/Vol] 0.92 10*3/uL Low 1.10-3.70 [facility] Comment on above: Performed By: #### B EDWARD, TROPI #### [facility] [employer] [address] [place] [address] [employer] Engineer: Ramsey Rodriguez MD Lymphocytes/100 WBC (Bld) 15 % Low 24-43 [facility] Comment on above: Performed By: #### B MP, TROPI #### [facility] [employer] [address] [place] [address] [employer] Engineer: Ramsey Rodriguez MD MCH (RBC) [Entitic mass] 30.6 pg Normal 25.2-33.5 [facility] Comment on above: Performed By: #### B MP, TROPI #### [facility] [employer] [address] [place] [address] [employer] Engineer: Ramsey Rodriguez MD MCHC (RBC) [Mass/Vol] 30.4 g/dL Normal 28.4-34.8 [facility] Comment on above: Performed By: #### B MP, TROPI #### [address] [address] [employer] Engineer: Ramsey Rodriguez MD MCV (RBC) [Entitic vol] 100.6 fL Normal 82.6-102.9 [facility] Comment on above: Performed By: #### B MP, TROPI #### [address] [address] [employer] Build Engineer: Ramsey Rodriguez MD Monocytes (Bld) [#/Vol] 0.31 10*3/uL Normal 0.10-1.20 [facility] Comment on above: Performed By: #### B MP, TROPI #### [facility] [employer] [address] [place] [address] [employer] Build Engineer: Ramsey Rodriguez MD Monocytes/100 WBC (Bld) 5 % Normal 3-12 [facility] Comment on above: Performed By: #### B MP, TROPI #### [facility] [employer] [address] [place] [address]74 [employer] Build Engineer: Ramsey Rodriguez MD Neutrophil (Seg) 76 % High 36-65 [facility] Comment on above: Performed By: #### B EDWARD, TROPI #### [address] [address] [employer] Build Engineer: Ramsey Rodriguez MD NRBC Automated 0.0 per 100 WBC Normal 0.0 [facility] Comment on above: Performed By: #### B EDWARD, TROPI #### [address] [address] [employer] Build Engineer: Ramsey Rodriguez MD Platelet mean volume (Bld) [Entitic vol] 9.9 fL Normal 8.1-13.5 [facility] Comment on above: Performed By: #### B EDWARD, TROPI #### [facility] [employer] [address] [place] [address] 785[address] [employer] Engineer: Ramsey Rodriguez MD Platelets (Bld) [#/Vol] 129 10*3/uL Low 138-453 [facility] Comment on above: Performed By: #### B EDWARD, TROPI #### [address] [address] [employer] Build Engineer: Ramsey Rodriguez MD RBC (Bld) [#/Vol] 3.53 10*6/uL Low 4.21-5.77 [facility] Comment on above: Performed By: #### B EDWARD, TROPI #### [address] [address] [employer] Build Engineer: Ramsey Rodriguez MD RBC morphology finding Nom (Bld) ANISOCYTOSIS PRESENT Normal [facility] Comment on above: Performed By: #### B EDWARD, TROPI #### [address] [address] [employer] Build Engineer: Ramsey Rodriguez MD WBC (Bld) [#/Vol] 6.0 10*3/uL Normal 3.5-11.3 [facility] Comment on above: Performed By: #### B EDWARD TROPI #### [facility] [address] [place] [address] [employer] Build Engineer: Ramsey Rodriguez MD Glucose,Whole Bloodon 2023 Glucose [Mass/Vol] 110 mg/dL Normal 75-110 [facility] Glucose [Mass/Vol] 97 mg/dL Normal 75-110 [facility] Glucose [Mass/Vol] 94 mg/dL Normal 75-110 [facility] Glucose [Mass/Vol] 90 mg/dL Normal 75-110 [facility] Magnesiumon 08-23-2023 Magnesium [Mass/Vol] 2.1 mg/dL Normal 1.6-2.4 [facility] Comment on above: Performed By: #### B EDWARD TROPI #### [facility] [address] [place] [address] [employer] Build Engineer: Ramsey Rodriguez MD Phosphorus, Inorg.on 024 Phosphorus, Inorg. 1.7 mg/dL Low 2.5-4.5 [facility] Comment on above: Performed By: #### B KAITLYNN LEON #### [facility] [address] [place] [address] [employer] Build Engineer: Ramsey Rodriguez MD Basic Metab w/rfx MGon 08-21 Anion gap [Moles/Vol] 8 mmol/L Low 9-16 [facility] Comment on above: Performed By: #### H EPXA, CBC, PTT, PT #### [facility] [address] [place] [address] [employer] Engineer: Ramsey Rodriguez MD Calcium [Mass/Vol] 8.3 mg/dL Low 8.6-10.4 [facility] Comment on above: Performed By: #### H EPXA, CBC, PTT, PT #### [employer] [address] [place] [address] [phone] [employer] Build Engineer: Ramsey Rodriguez MD Chloride [Moles/Vol] 105 mmol/L Normal 98-107 [facility] Comment on above: Performed By: #### H EPXA, CBC, PTT, PT #### [facility] [address] [place] [address] [employer] Build Engineer: Ramsey Rodriguez MD CO2 [Moles/Vol] 25 mmol/L Normal 20-31 [facility] Comment on above: Performed By: #### H EPXA, CBC, PTT, PT #### [facility] [address] [place] [address] [employer] Build Engineer: Ramsey Rodriguez MD Creatinine [Mass/Vol] 0.6 mg/dL Low 0.70-1.20 [facility] Comment on above: Performed By: #### H EPXA, CBC, PTT, PT #### [facility] [employer] [address] [place] [address]192 [employer] Build Engineer: Ramsey Rodriguez MD GFR/1.73 sq M.predicted among non-blacks MDRD (S/P/Bld) [Vol rate/Area] mL/min/{1.73_m2} Normal >60 [facility] Comment on above: Result Comment: These results [...] #### H EPXA, CBC, PTT, PT #### [facility] [employer] [address] [place] [address] [employer] Engineer: Ramsey Rodriguez MD Glucose [Mass/Vol] 105 mg/dL High 74-99 [facility] Comment on above: Performed By: #### H EPXA, CBC, PTT, PT #### [facility] [address] [place] [address] [employer] Build Engineer: Ramsey Rodriguez MD Potassium [Moles/Vol] 4.2 mmol/L Normal 3.7-5.3 [facility] Comment on above: Result Comment: SPEC IMEN SLIGHTLY HEMOLYZED, RESULTS MAY BE ADVERSELY AFFECTED. Performed By: #### H EPXA, CBC, PTT, PT #### [employer] [address] [place] [address] [employer] Engineer: Ramsey Rodriguez MD Sodium [Moles/Vol] 138 mmol/L Normal 136-145 [facility] Comment on above: Performed By: #### H EPXA, CBC, PTT, PT #### [employer] [address] [place] [address] [employer] Build Engineer: Ramsey Rodriguez MD Urea nitrogen [Mass/Vol] 25 mg/dL High 8-23 [facility] Comment on above: Performed By: #### H EPXA, CBC, PTT, PT #### [employer] [address] [place] [address] [employer] Build Engineer: Ramsey Rodriguez MD CBC with Diffon 08-22-2023 Abs. Basophil 0.03 k/uL Normal 0.00-0.20 [facility] Comment on above: Performed By: #### H EPXA, CBC, PTT, PT #### [employer] [address] [place] [address] 19940 [employer] Engineer: Ramsey Rodriguez MD Abs.Imm.Granulocyte 0.03 k/uL Normal 0.00-0.30 [facility] Comment on above: Performed By: #### H EPXA, CBC, PTT, PT #### [employer] [address] [place] [address]367 [employer] Engineer: Ramsey Rodriguez MD Abs.Neutrophil (Seg) 7.03 k/uL Normal 1.50-8.10 [facility] Comment on above: Performed By: #### H EPXA, CBC, PTT, PT #### [employer] [address] [place] [address] [employer] Build Engineer: Ramsey Rodriguez MD Basophils/100 WBC (Bld) 0 % Normal 0-2 [facility] Comment on above: Performed By: #### H EPXA, CBC, PTT, PT #### [address] [address] [employer] Engineer: Ramsey Rodriguez MD Eosinophils (Bld) [#/Vol] 0.10 10*3/uL Normal 0.00-0.44 [facility] Comment on above: Performed By: #### H EPXA, CBC, PTT, PT #### [facility] [employer] [address] [place] [address] [employer] Engineer: Ramsey Rodriguez MD Eosinophils/100 WBC (Bld) 1 % Normal 1-4 [facility] Comment on above: Performed By: #### H EPXA, CBC, PTT, PT #### [facility] [employer] [address] [place] [address] [employer] Engineer: Ramsey Rodriguez MD Erythrocyte distribution width (RBC) [Ratio] 16.0 % High 11.8-14.4 [facility] Comment on above: Performed By: #### H EPXA, CBC, PTT, PT #### [facility] [employer] [address] [place] [address] [employer] Engineer: Ramsey Rodriguez MD Hematocrit (Bld) [Volume fraction] 38.1 % Low 40.7-50.3 [facility] Comment on above: Performed By: #### H EPXA, CBC, PTT, PT #### [facility] [employer] [address] [place] [address] [employer] Engineer: Ramsey Rodriguez MD Hemoglobin (Bld) [Mass/Vol] 11.9 g/dL Low 13.0-17.0 [facility] Comment on above: Performed By: #### H EPXA, CBC, PTT, PT #### [address] [address] [employer] Engineer: Ramsey Rodriguez MD Immature granulocytes/100 WBC (Bld) 0 % Normal 0 [facility] Comment on above: Performed By: #### H EPXA, CBC, PTT, PT #### [address] [address] [employer] Build Engineer: Ramsey Rodriguez MD Lymphocytes (Bld) [#/Vol] 0.78 10*3/uL Low 1.10-3.70 [facility] Comment on above: Performed By: #### H EPXA, CBC, PTT, PT #### [address] [address] [employer] Build Engineer: Ramsey Rodriguez MD Lymphocytes/100 WBC (Bld) 9 % Low 24-43 [facility] Comment on above: Performed By: #### H EPXA, CBC, PTT, PT #### [address] [address] [employer] Build Engineer: Ramsey Rodriguez MD MCH (RBC) [Entitic mass] 30.8 pg Normal 25.2-33.5 [facility] Comment on above: Performed By: #### H EPXA, CBC, PTT, PT #### [address] [address] [employer] Build Engineer: Ramsey Rodriguez MD MCHC (RBC) [Mass/Vol] 31.2 g/dL Normal 28.4-34.8 [facility] Comment on above: Performed By: #### H EPXA, CBC, PTT, PT #### [address] [address] [employer] Build Engineer: Ramsey Rodriguez MD MCV (RBC) [Entitic vol] 98.7 fL Normal 82.6-102.9 [facility] Comment on above: Performed By: #### H EPXA, CBC, PTT, PT #### [facility] [employer] [address] [place] [address] [employer] Build Engineer: Ramsey Rodriguez MD Monocytes (Bld) [#/Vol] 0.32 10*3/uL Normal 0.10-1.20 [facility] Comment on above: Performed By: #### H EPXA, CBC, PTT, PT #### [address] [address] [employer] Engineer: Ramsey Rodriguez MD Monocytes/100 WBC (Bld) 4 % Normal 3-12 [facility] Comment on above: Performed By: #### H EPXA, CBC, PTT, PT #### [address] [address] [employer] Build Engineer: Ramsey Rodriguez MD Neutrophil (Seg) 86 % High 36-65 [facility] Comment on above: Performed By: #### H EPXA, CBC, PTT, PT #### [facility] [employer] [address] [place] [address] [employer] Build Engineer: Ramsey Rodriguez MD NRBC Automated 0.0 per 100 WBC Normal 0.0 [facility] Comment on above: Performed By: #### H EPXA, CBC, PTT, PT #### [address] [address] [employer] Build Engineer: Ramsey Rodriguez MD Platelet mean volume (Bld) [Entitic vol] 10.1 fL Normal 8.1-13.5 [facility] Comment on above: Performed By: #### H EPXA, CBC, PTT, PT #### [facility] [employer] [address] [place] [address] [employer] Build Engineer: Ramsey Rodriguez MD Platelets (Bld) [#/Vol] 140 10*3/uL Normal 138-453 [facility] Comment on above: Performed By: #### H EPXA, CBC, PTT, PT #### [facility] [address] [place] [address] [employer] Build Engineer: Ramsey Rodriguez MD RBC (Bld) [#/Vol] 3.86 10*6/uL Low 4.21-5.77 [facility] Comment on above: Performed By: #### H EPXA, CBC, PTT, PT #### [facility] [address] [place] [address] [employer] Build Engineer: Ramsey Rodriguez MD RBC morphology finding Nom (Bld) ANISOCYTOSIS PRESENT Normal [facility] Comment on above: Performed By: #### H EPXA, CBC, PTT, PT #### [facility] [address] [place] [address] [employer] Build Engineer: Ramsey Rodriguez MD WBC (Bld) [#/Vol] 8.3 10*3/uL Normal 3.5-11.3 [facility] Comment on above: Performed By: #### H EPXA, CBC, PTT, PT #### [facility] [address] [place] [address] [employer] Build Engineer: Ramsey Rodriguez MD Glucose,Whole Bloodon 2023 Glucose [Mass/Vol] 127 mg/dL High 75-110 [facility] Glucose [Mass/Vol] 125 mg/dL High 75-110 [facility] Glucose [Mass/Vol] 112 mg/dL High 75-110 [facility] Glucose [Mass/Vol] 84 mg/dL Normal 75-110 [facility] Glucose [Mass/Vol] 86 mg/dL Normal 75-110 [facility] Glucose [Mass/Vol] 96 mg/dL Normal 75-110 [facility] Magnesiumon 08-22-2023 Magnesium [Mass/Vol] 1.8 mg/dL Normal 1.6-2.4 [facility] Comment on above: Performed By: #### H EPXA, CBC, PTT, PT #### [employer] [address] [place] [address] [employer] Build Engineer: Ramsey Rodriguez MD Phosphorus, Inorg.on 024 Phosphorus, Inorg. 2.2 mg/dL Low 2.5-4.5 [facility] Comment on above: Performed By: #### H EPXA, CBC, PTT, PT #### [facility] [employer] [address] [place] [address] [employer] Build Engineer: Ramsey Rodriguez MD Basic Metab w/rfx MGon 08-20 Anion gap [Moles/Vol] 10 mmol/L Normal 9-16 [facility] Comment on above: Performed By: #### H EPXA, CBC, PTT, PT #### [facility] [employer] [address] [place] [address] [employer] Build Engineer: Ramsey Rodriguez MD Calcium [Mass/Vol] 9.0 mg/dL Normal 8.6-10.4 [facility] Comment on above: Performed By: #### H EPXA, CBC, PTT, PT #### [facility] [employer] [address] [place] [address] [employer] Build Engineer: Ramsey Rodriguez MD Chloride [Moles/Vol] 105 mmol/L Normal 98-107 [facility] Comment on above: Performed By: #### H EPXA, CBC, PTT, PT #### [facility] [employer] [address] [place] [address] [employer] Build Engineer: Ramsey Rodriguez MD CO2 [Moles/Vol] 27 mmol/L Normal 20-31 [facility] Comment on above: Performed By: #### H EPXA, CBC, PTT, PT #### [facility] [employer] [address] [place] [address] [employer] Build Engineer: Ramsey Rodriguez MD Creatinine [Mass/Vol] 0.7 mg/dL Normal 0.70-1.20 [facility] Comment on above: Performed By: #### H EPXA, CBC, PTT, PT #### [employer] [address] [place] [address] [employer] Build Engineer: Ramsey Rodriguez MD GFR/1.73 sq M.predicted among non-blacks MDRD (S/P/Bld) [Vol rate/Area] 89 mL/min/{1.73_m2} Normal >60 [facility] Comment on above: Result Comment: These results [...] #### H EPXA, CBC, PTT, PT #### [facility] [employer] [address] [place] [address] [employer] Build Engineer: Ramsey Rodriguez MD Glucose [Mass/Vol] 146 mg/dL High 74-99 [facility] Comment on above: Performed By: #### H EPXA, CBC, PTT, PT #### [facility] [address] [place] [address] [employer] Build Engineer: Ramsey Rodriguez MD Potassium [Moles/Vol] 4.4 mmol/L Normal 3.7-5.3 [facility] Comment on above: Performed By: #### H EPXA, CBC, PTT, PT #### [employer] [address] [place] [address] [employer] Build Engineer: Ramsey Rodriguez MD Sodium [Moles/Vol] 142 mmol/L Normal 136-145 [facility] Comment on above: Performed By: #### H EPXA, CBC, PTT, PT #### [employer] [address] [place] [address] [employer] Build Engineer: Ramsey Rodriguez MD Urea nitrogen [Mass/Vol] 25 mg/dL High 8-23 [facility] Comment on above: Performed By: #### H EPXA, CBC, PTT, PT #### [place] [address] [employer] Engineer: Ramsey Rodriguez MD CBC with Diffon 08-21-2023 Abs. Basophil 0.00 k/uL Normal 0.0-0.2 [facility] Comment on above: Performed By: #### H EPXA, CBC, PTT, PT #### [facility] [employer] [address] [place] [address] [employer] Build Engineer: Ramsey Rodriguez MD Abs.Imm.Granulocyte 0.00 k/uL Normal 0.00-0.30 [facility] Comment on above: Performed By: #### H EPXA, CBC, PTT, PT #### [place] [address] [employer] Engineer: Ramsey Rodriguez MD Abs.Neutrophil (Seg) 10.86 k/uL High 1.8-7.7 [facility] Comment on above: Performed By: #### H EPXA, CBC, PTT, PT #### [place] [address] [employer] Engineer: Ramsey Rodriguez MD Basophils/100 WBC (Bld) 0 % Normal 0-2 [facility] Comment on above: Performed By: #### H EPXA, CBC, PTT, PT #### [facility] [employer] [address] [place] [address] [employer] Build Engineer: Ramsey Rodriguez MD Eosinophils (Bld) [#/Vol] 0.00 10*3/uL Normal 0.0-0.4 [facility] Comment on above: Performed By: #### H EPXA, CBC, PTT, PT #### [facility] [employer] [address] [place] [address] [employer] Build Engineer: Ramsey Rodriguez MD Eosinophils/100 WBC (Bld) 0 % Low 1-4 [facility] Comment on above: Performed By: #### H EPXA, CBC, PTT, PT #### [address] [address] [employer] Engineer: Ramsey Rodriguez MD Immature granulocytes/100 WBC (Bld) 0 % Normal 0 [facility] Comment on above: Performed By: #### H EPXA, CBC, PTT, PT #### [address] [address] [employer] Engineer: Ramsey Rodriguez MD Lymphocytes (Bld) [#/Vol] 0.73 10*3/uL Low 1.0-4.8 [facility] Comment on above: Performed By: #### H EPXA, CBC, PTT, PT #### [address] [address] [employer] Engineer: Ramsey Rodriguez MD Lymphocytes/100 WBC (Bld) 6 % Low 24-44 [facility] Comment on above: Performed By: #### H EPXA, CBC, PTT, PT #### [address] [address] [employer] Build Engineer: Ramsey Rodriguez MD Monocytes (Bld) [#/Vol] 0.61 10*3/uL Normal 0.1-0.8 [facility] Comment on above: Performed By: #### H EPXA, CBC, PTT, PT #### [address] [address] [employer] Engineer: Ramsey Rodriguez MD Monocytes/100 WBC (Bld) 5 % Normal 1-7 [facility] Comment on above: Performed By: #### H EPXA, CBC, PTT, PT #### [facility] [employer] [address] [place] [address] [employer] Build Engineer: Ramsey Rodriguez MD Morphology [place] (Bld) [Interp] ANISOCYTOSIS PRESENT Normal [facility] Comment on above: Performed By: #### H EPXA, CBC, PTT, PT #### [facility] [address] [place] [address] [employer] Build Engineer: Ramsey Rodriguez MD Neutrophil (Seg) 89 % High 36-66 [facility] Comment on above: Performed By: #### H EPXA, CBC, PTT, PT #### [facility] [employer] [address] [place] [address] [employer] Engineer: Ramsey Rodriguez MD Erythrocyte distribution width (RBC) [Ratio] 15.7 % High 11.8-14.4 [facility] Comment on above: Performed By: #### H EPXA, CBC, PTT, PT #### [facility] [employer] [address] [place] [address] [employer] Engineer: Ramsey Rodriguez MD Hematocrit (Bld) [Volume fraction] 40.8 % Normal 40.7-50.3 [facility] Comment on above: Performed By: #### H EPXA, CBC, PTT, PT #### [facility] [employer] [address] [place] [address] [employer] Build Engineer: Ramsey Rodriguez MD Hemoglobin (Bld) [Mass/Vol] 13.2 g/dL Normal 13.0-17.0 [facility] Comment on above: Performed By: #### H EPXA, CBC, PTT, PT #### [facility] [employer] [address] [place] [address] [employer] Engineer: Ramsey Rodriguez MD MCH (RBC) [Entitic mass] 30.3 pg Normal 25.2-33.5 [facility] Comment on above: Performed By: #### H EPXA, CBC, PTT, PT #### [facility] [employer] [address] [place] [address] [employer] Build Engineer: Ramsey Rodriguez MD MCHC (RBC) [Mass/Vol] 32.4 g/dL Normal 28.4-34.8 [facility] Comment on above: Performed By: #### H EPXA, CBC, PTT, PT #### [address] [address] [employer] Engineer: Ramsey Rodriguez MD MCV (RBC) [Entitic vol] 93.8 fL Normal 82.6-102.9 [facility] Comment on above: Performed By: #### H EPXA, CBC, PTT, PT #### [place] [address] [employer] Engineer: Ramsey Rodriguze MD NRBC Automated 0.0 per 100 WBC Normal 0.0 [facility] Comment on above: Performed By: #### H EPXA, CBC, PTT, PT #### [address] [address] [employer] Engineer: Ramsey Rodriguez MD Platelet mean volume (Bld) [Entitic vol] 10.0 fL Normal 8.1-13.5 [facility] Comment on above: Performed By: #### H EPXA, CBC, PTT, PT #### [place] [address] [employer]: Ramsey Rodriguez MD Platelets (Bld) [#/Vol] 197 10*3/uL Normal 138-453 [facility] Comment on above: Performed By: #### H EPXA, CBC, PTT, PT #### [place] [address] [employer] Engineer: Ramsey Rodriguez MD RBC (Bld) [#/Vol] 4.35 10*6/uL Normal 4.21-5.77 [facility] Comment on above: Performed By: #### H EPXA, CBC, PTT, PT #### [address] [address] [employer] Engineer: Ramsey Rodriguez MD WBC (Bld) [#/Vol] 12.2 10*3/uL High 3.5-11.3 [facility] Comment on above: Performed By: #### H EPXA, CBC, PTT, PT #### [facility] [employer] [address] [place] [address] [phone] [employer] Engineer: Ramsey Rodriguez MD Glucose,Whole Bloodon 2023 Glucose [Mass/Vol] 124 mg/dL High 75-110 [facility] Glucose [Mass/Vol] 95 mg/dL Normal 75-110 [facility] Magnesiumon 08-21-2023 Magnesium [Mass/Vol] 2.0 mg/dL Normal 1.6-2.4 [facility] Comment on above: Performed By: #### H EPXA, CBC, PTT, PT #### [facility] [employer] [address] [place] [address] [phone] [employer] Engineer: Ramsey Rodriguez MD Phosphorus, Inorg.on 024 Phosphorus, Inorg. 3.9 mg/dL Normal 2.5-4.5 [facility] Comment on above: Performed By: #### H EPXA, CBC, PTT, PT #### [facility] [employer] [address] [place] [address] [phone] [employer] Engineer: Ramsey Rodriguez MD Type + Screenon 08-21-2023 Type + Screen Sample Expiration 08/24/2023,2359 Arm Band Number BE [id number] ABO/Rh(D) O NEGATIVE Antibody Screen NEGATIVE Normal [facility] Comment on above: Performed By: #### H EPXA, CBC, PTT, PT #### [facility] [employer] [address] [place] [address] [phone] [employer] Build Engineer: Ramsey Rodriguez MD XR CHEST PORTABLEon 08-21-19 [...] Dave Burns MD 08/21/23 Final result Normal [facility] Basophils Auto (Bld) [#/Vol] on 08-20-2023 Basophils (Bld) [#/Vol] 0.1 10 3/uL 0.0-0.1 [facility] Basophils/100 WBC Auto (Bld) on 08-20-2023 Basophils/100 WBC (Bld) 0.3 % 0.2-2.0 [facility] Bilirubin Auto test strip (U ) [Mass/Vol]on 08-20-2023 Bilirubin (U) [Mass/Vol] Negative NEGATIVE [facility] CBC with Diffon 08-20-2023 Abs. Basophil 0.00 k/uL Normal 0.0-0.2 [facility] Comment on above: Performed By: #### H EPXA, CBC, PTT, PT #### [facility] [employer] [address] [place] [address] [employer] Build Engineer: Ramsey Rodriguez MD Abs.Imm.Granulocyte 0.00 k/uL Normal 0.00-0.30 [facility] Comment on above: Performed By: #### H EPXA, CBC, PTT, PT #### [facility] [employer] [address] [place] [phone] [employer] Build Engineer: Ramsey Rodriguez MD Abs.Neutrophil (Seg) 12.60 k/uL High 1.8-7.7 [facility] Comment on above: Performed By: #### H EPXA, CBC, PTT, PT #### [facility] [employer] [address] [place] [phone] [employer] Build Engineer: Ramsey Rodriguez MD Basophils/100 WBC (Bld) 0 % Normal 0-2 [facility] Comment on above: Performed By: #### H EPXA, CBC, PTT, PT #### [facility] [employer] [address] [place] [address] [employer] Build Engineer: Ramsey Rodriguez MD Eosinophils (Bld) [#/Vol] 0.00 10*3/uL Normal 0.0-0.4 [facility] Comment on above: Performed By: #### H EPXA, CBC, PTT, PT #### [address] [address] [employer] Build Engineer: Ramsey Rodriguez MD Eosinophils/100 WBC (Bld) 0 % Low 1-4 [facility] Comment on above: Performed By: #### H EPXA, CBC, PTT, PT #### [place] [address] [employer] Build Engineer: Ramsey Rodriguez MD Immature granulocytes/100 WBC (Bld) 0 % Normal 0 [facility] Comment on above: Performed By: #### H EPXA, CBC, PTT, PT #### [facility] [employer] [address] [place] [address] [employer] Build Engineer: Ramsey Rodriguez MD Lymphocytes (Bld) [#/Vol] 0.67 10*3/uL Low 1.0-4.8 [facility] Comment on above: Performed By: #### H EPXA, CBC, PTT, PT #### [facility] [employer] [address] [place] [phone] [employer] Build Engineer: Ramsey Rodriguez MD Lymphocytes/100 WBC (Bld) 5 % Low 24-44 [facility] Comment on above: Performed By: #### H EPXA, CBC, PTT, PT #### [facility] [employer] [address] [place] [phone] [employer] Build Engineer: Ramsey Rodriguez MD Monocytes (Bld) [#/Vol] 0.13 10*3/uL Normal 0.1-0.8 [facility] Comment on above: Performed By: #### H EPXA, CBC, PTT, PT #### [facility] [employer] [address] [place] [address] [employer] Build Engineer: Ramsey Rodriguez MD Monocytes/100 WBC (Bld) 1 % Normal 1-7 [facility] Comment on above: Performed By: #### H EPXA, CBC, PTT, PT #### [facility] [address] [place] [phone] [employer] Build Engineer: Ramsey Rodriguez MD Morphology [place] (Bld) [Interp] ANISOCYTOSIS PRESENT Normal [facility] Comment on above: Performed By: #### H EPXA, CBC, PTT, PT #### [facility] [employer] [address] [place] [phone] [employer] Build Engineer: Ramsey Rodriguez MD Neutrophil (Seg) 94 % High 36-66 [facility] Comment on above: Performed By: #### H EPXA, CBC, PTT, PT #### [facility] [employer] [address] [place] [phone] [employer] Build Engineer: Ramsey Rodriguez MD Erythrocyte distribution width (RBC) [Ratio] 15.6 % High 11.8-14.4 [facility] Comment on above: Performed By: #### H EPXA, CBC, PTT, PT #### [facility] [employer] [address] [place] [phone] [employer] Build Engineer: Ramsey Rodriguez MD Hematocrit (Bld) [Volume fraction] 43.6 % Normal 40.7-50.3 [facility] Comment on above: Performed By: #### H EPXA, CBC, PTT, PT #### [facility] [employer] [address] [place] [address] [phone] [employer] Build Engineer: Ramsey Rodriguez MD Hemoglobin (Bld) [Mass/Vol] 14.0 g/dL Normal 13.0-17.0 [facility] Comment on above: Performed By: #### H EPXA, CBC, PTT, PT #### [facility] [employer] [address] [place] [address]74 [employer] Build Engineer: Ramsey Rodriguez MD MCH (RBC) [Entitic mass] 30.6 pg Normal 25.2-33.5 [facility] Comment on above: Performed By: #### H EPXA, CBC, PTT, PT #### [address] [address] [employer] Build Engineer: Ramsey Rodriguez MD MCHC (RBC) [Mass/Vol] 32.1 g/dL Normal 28.4-34.8 [facility] Comment on above: Performed By: #### H EPXA, CBC, PTT, PT #### [address] [address] [employer] Build Engineer: Ramsey Rodriguez MD MCV (RBC) [Entitic vol] 95.2 fL Normal 82.6-102.9 [facility] Comment on above: Performed By: #### H EPXA, CBC, PTT, PT #### [address] [address] [employer] Build Engineer: Ramsey Rodriguez MD NRBC Automated 0.0 per 100 WBC Normal 0.0 [facility] Comment on above: Performed By: #### H EPXA, CBC, PTT, PT #### [address] [address] [employer] Build Engineer: Ramsey Rodriguez MD Platelet mean volume (Bld) [Entitic vol] 10.1 fL Normal 8.1-13.5 [facility] Comment on above: Performed By: #### H EPXA, CBC, PTT, PT #### [address] [address] [employer] Build Engineer: Ramsey Rodriguez MD Platelets (Bld) [#/Vol] 200 10*3/uL Normal 138-453 [facility] Comment on above: Performed By: #### H EPXA, CBC, PTT, PT #### [address] [address] [employer] Build Engineer: Ramsey Rodriguez MD RBC (Bld) [#/Vol] 4.58 10*6/uL Normal 4.21-5.77 [facility] Comment on above: Performed By: #### H EPXA, CBC, PTT, PT #### [facility] [employer] [address] [place] [address] [employer] Build Engineer: Ramsey Rodriguez MD WBC (Bld) [#/Vol] 13.4 10*3/uL High 3.5-11.3 [facility] Comment on above: Performed By: #### H EPXA, CBC, PTT, PT #### [facility] [employer] [address] [place] [phone] [employer] Build Engineer: Ramsey Rodriguez MD Comp Metabolic Profon 2023 Albumin [Mass/Vol] 3.5 g/dL Normal 3.5-5.2 [facility] Comment on above: Performed By: #### H EPXA, CBC, PTT, PT #### [facility] [address] [place] [address] [employer] Build Engineer: Ramsey Rodriguez MD Albumin/Glob Ratio 1.0 Normal 1.0-2.5 [facility] Comment on above: Performed By: #### H EPXA, CBC, PTT, PT #### [facility] [address] [place] [address] [employer] Build Engineer: Ramsey Rodriguez MD Alkaline Phos 93 U/L Normal 40-129 [facility] Comment on above: Performed By: #### H EPXA, CBC, PTT, PT #### [employer] [address] [place] [address] [employer] Build Engineer: Ramsey Rodriguez MD ALT [Catalytic activity/Vol] 58 U/L High 10-50 [facility] Comment on above: Performed By: #### H EPXA, CBC, PTT, PT #### [employer] [address] [place] [address] [employer] Build Engineer: Ramsey Rodriguez MD Anion gap [Moles/Vol] 12 mmol/L Normal 9-16 [facility] Comment on above: Performed By: #### H EPXA, CBC, PTT, PT #### [facility] [address] [place] [phone] [employer] Build Engineer: Ramsey Rodriguez MD AST [Catalytic activity/Vol] 75 U/L High 10-50 [facility] Comment on above: Result Comment: SPEC IMEN SLIGHTLY HEMOLYZED, RESULTS MAY BE ADVERSELY AFFECTED. Performed By: #### H EPXA, CBC, PTT, PT #### [facility] [address] [place] [phone] [employer] Build Engineer: Ramsey Rodriguez MD Bilirubin [Mass/Vol] 1.1 mg/dL Normal 0.00-1.20 [facility] Comment on above: Performed By: #### H EPXA, CBC, PTT, PT #### [facility] [address] [place] [address] [employer] Build Engineer: Ramsey Rodriguez MD Calcium [Mass/Vol] 9.1 mg/dL Normal 8.6-10.4 [facility] Comment on above: Performed By: #### H EPXA, CBC, PTT, PT #### [facility] [address] [place] [address] [employer] Build Engineer: Ramsey Rodriguez MD Chloride [Moles/Vol] 100 mmol/L Normal 98-107 [facility] Comment on above: Performed By: #### H EPXA, CBC, PTT, PT #### [facility] [address] [place] [phone] [employer] Build Engineer: Ramsey Rodriguez MD CO2 [Moles/Vol] 25 mmol/L Normal 20-31 [facility] Comment on above: Performed By: #### H EPXA, CBC, PTT, PT #### [facility] [address] [place] [address] [employer] Build Engineer: Ramsey Rodriguez MD Creatinine [Mass/Vol] 0.8 mg/dL Normal 0.70-1.20 [facility] Comment on above: Performed By: #### H EPXA, CBC, PTT, PT #### [facility] [employer] [address] [place] [phone] [employer] Build Engineer: Ramsey Rodriguez MD GFR/1.73 sq M.predicted among non-blacks MDRD (S/P/Bld) [Vol rate/Area] 87 mL/min/{1.73_m2} Normal >60 [facility] Comment on above: Result Comment: These results [...] #### H EPXA, CBC, PTT, PT #### [facility] [employer] [address] [place] [phone] [employer] Build Engineer: Ramsey Rodriguez MD Glucose [Mass/Vol] 208 mg/dL High 74-99 [facility] Comment on above: Performed By: #### H EPXA, CBC, PTT, PT #### [facility] [employer] [address] [place] [phone] [employer] Build Engineer: Ramsey Rodriguez MD Potassium [Moles/Vol] 4.4 mmol/L Normal 3.7-5.3 [facility] Comment on above: Result Comment: SPEC IMEN SLIGHTLY HEMOLYZED, RESULTS MAY BE ADVERSELY AFFECTED. Performed By: #### H EPXA, CBC, PTT, PT #### [facility] [employer] [address] [place] [phone] [employer] Build Engineer: Ramsey Rodriguez MD Protein [Mass/Vol] 7.9 g/dL Normal 6.6-8.7 [facility] Comment on above: Performed By: #### H EPXA, CBC, PTT, PT #### [facility] [address] [place], [place] [phone] [employer] Build Engineer: Ramsey Rodriguez MD Sodium [Moles/Vol] 137 mmol/L Normal 136-145 [facility] Comment on above: Performed By: #### H EPXA, CBC, PTT, PT #### [facility] [address] [place] [address] [phone] [employer] Build Engineer: Ramsey Rodriguez MD Urea nitrogen [Mass/Vol] 26 mg/dL High 8-23 [facility] Comment on above: Performed By: #### H EPXA, CBC, PTT, PT #### [employer] [address] [place] [address] [phone] [employer] Build Engineer: Ramsey Rodriguez MD Eosinophils/100 WBC Auto (Bl d)on 08-20-2023 Eosinophils/100 WBC (Bld) 0.1 % 0.9-7.0 [facility] Erythrocyte distribution wid th Auto (RBC) [Ratio]on 08-20-2023 Erythrocyte distribution width (RBC) [Ratio] 15.2 % 11.0-15.0 [facility] Estimated glomerular filtrat ion rate (GFR) non- Americanon 08-20-2023 GFR/1.73 sq M.predicted among non-blacks MDRD (S/P/Bld) [Vol rate/Area] mL/min/{1.73_m2} >=60 [facility] Globulin Calc (S) [Mass/Vol] on 08-20-2023 Globulin (S) [Mass/Vol] 5.3 g/dL [facility] Hematocrit Auto (Bld) [Volum e fraction]on 08-20-2023 Hematocrit (Bld) [Volume fraction] 40.8 % 42.0-54.0 [facility] Hemoglobin [Mass/volume] in Bloodon 08-20-2023 Hemoglobin (Bld) [Mass/Vol] 13.3 g/dL 14.0-18.0 [facility] Laboratory - Chemistry and C hemistry - challengeon 08-20-2023 Glucose (U) [Mass/Vol] Negative NEGATIVE [facility] Ketones Ql (U) Negative NEGATIVE [facility] pH (U) 5.0 [pH] 5.0-9.0 [facility] Specific gravity (U) [Rel density] 1.020 1.005-1.025 [facility] Urobilinogen Qn (U) 0.2 {Amy'U}/dL 0.2-1.0 [facility] Albumin [Mass/Vol] 3.2 g/dL 3.4-5.0 [facility] ALP [Catalytic activity/Vol] 104 U/L 46-116 [facility] ALT [Catalytic activity/Vol] 74 U/L 16-63 [facility] AST [Catalytic activity/Vol] 67 U/L 15-37 [facility] Bilirubin [Mass/Vol] 1.3 mg/dL 0.2-1.0 [facility] Calcium [Mass/Vol] 9.7 mg/dL 8.5-10.1 [facility] Chloride [Moles/Vol] 100 mmol/L 98-107 [facility] CO2 [Moles/Vol] 28.2 mmol/L 21.0-32.0 [facility] Creatinine [Mass/Vol] 1.05 mg/dL 0.70-1.30 [facility] GFR/1.73 sq M.predicted MDRD (S/P/Bld) [Vol rate/Area] mL/min/{1.73_m2} >=60 [facility] Glucose [Mass/Vol] 202 mg/dL 74-106 [facility] Lipase [Catalytic activity/Vol] 18.0 U/L 16.0-77.0 [facility] Natriuretic peptide B (Bld) [Mass/Vol] 470.0 pg/mL <=1800.0 [facility] Potassium [Moles/Vol] 3.6 mmol/L 3.5-5.1 [facility] Protein [Mass/Vol] 8.5 g/dL 6.4-8.2 [facility] Sodium [Moles/Vol] 137 mmol/L 136-145 [facility] Urea nitrogen [Mass/Vol] 30.0 mg/dL 7.0-18.0 [facility] Urea nitrogen/Creatinine [Mass ratio] 28.6 mg/mg [facility] Laboratory - Hematology and Cell countson 08-20-2023 Immature granulocytes/100 WBC (Bld) 0.4 % 0.0-0.5 [facility] - Specimen inform ationon 08-20-2023 Appearance (U) CLEAR CLEAR [facility] Color (U) YELLOW YELLOW [facility] Laboratory - Urinalysison Leukocyte esterase Test strip Ql (U) Negative NEGATIVE [facility] Nitrite Ql (U) Negative NEGATIVE [facility] Protein Ql (U) Negative NEG/TRACE [facility] Lactic Acidon 08-20-2023 Lactic Acid,Whole Bl 3.6 mmol/L High 0.7-2.1 [facility] Comment on above: Performed By: #### H EPXA, CBC, PTT, PT #### [employer] [address] [place] [address] [employer] Build Engineer: Ramsey Rodriguez MD Leukocytes [#/volume] correc александр for nucleated erythrocytes in Blood by Automated counon 08-20-2023 WBC corrected for nucl RBC Auto (Bld) [#/Vol] 15.6 10 3/uL 4.0-11.0 [facility] Lymphocytes Auto (Bld) [#/Vo l]on 08-20-2023 Lymphocytes (Bld) [#/Vol] 1.5 10 3/uL 1.2-3.8 [facility] Lymphocytes/100 WBC Auto (Bl d)on 08-20-2023 Lymphocytes/100 WBC (Bld) 9.6 % 20.5-60.0 [facility] MCH Auto (RBC) [Entitic mass ]on 08-20-2023 MCH (RBC) [Entitic mass] 30.6 pg 25.9-34.0 [facility] MCHC Auto (RBC) [Mass/Vol]on 08-20-2023 MCHC (RBC) [Mass/Vol] 32.6 g/dL 29.9-35.2 [facility] MCV Auto (RBC) [Entitic vol] on 08-20-2023 MCV (RBC) [Entitic vol] 93.8 fL 80.0-94.0 [facility] Magnesiumon 08-20-2023 Magnesium [Mass/Vol] 2.0 mg/dL Normal 1.6-2.4 [facility] Comment on above: Performed By: #### H EPXA, CBC, PTT, PT #### [employer] [address], [place] [phone] [employer] Build Engineer: Ramsey Rodriguez MD Monocytes Auto (Bld) [#/Vol] on 08-20-2023 Monocytes (Bld) [#/Vol] 0.5 10 3/uL 0.3-0.8 [facility] Monocytes/100 WBC Auto (Bld) on 08-20-2023 Monocytes/100 WBC (Bld) 3.2 % 1.7-12.0 [facility] Neutrophils Auto (Bld) [#/Vo l]on 08-20-2023 Neutrophils (Bld) [#/Vol] 13.4 10 3/uL 1.4-6.5 [facility] Neutrophils/100 WBC Auto (Bl d)on 08-20-2023 Neutrophils/100 WBC (Bld) 86.4 % 43.0-75.0 [facility] No Panel Informationon 08-19 Urine Microscopic Review NO [facility] Eosinophils # (Auto) 0.0 10 3/uL 0.0-0.7 [facility] Immature Granulocyte # (Auto) 0.06 10 3/uL 0.00-0.03 [facility] Platelet mean volume Auto (B ld) [Entitic vol]on 08-20-2023 Platelet mean volume (Bld) [Entitic vol] 9.8 fL 9.5-13.5 [facility] Platelets Auto (Bld) [#/Vol] on 08-20-2023 Platelets (Bld) [#/Vol] 220 10 3/uL 150-450 [facility] RBC Auto (Bld) [#/Vol]on RBC (Bld) [#/Vol] 4.35 10 6/uL 4.70-6.10 [facility] Serum or plasma albumin/glob ulin mass ratioon 08-20-2023 Albumin/Globulin [Mass ratio] 0.6 {ratio} [facility] Serum or plasma anion gap de terminationon 08-20-2023 Anion gap [Moles/Vol] 12.4 mmol/L [facility] Urine hemoglobin detection b y automated test stripon 08-20-2023 Hemoglobin Auto test strip Ql (U) Negative NEGATIVE [facility] XR CHEST PORTABLEon 08-20-19 XR CHEST PORTABLE [...] Amada Rosario MD 08/20/23 Final result Normal [facility] CBC AUTO DIFFon 08-15-2022 BASO # 0.0 103/ul Normal 0.0-0.1 [facility] Comment on above: Performed By: #### C BC #### [facility] [address] [address] [address] Emily Lauren Basophils/100 WBC (Bld) 0.3 % Normal 0.2-2.0 [facility] Comment on above: Performed By: #### C BC #### [facility] [address] [address] [address] Emily Lauren EO # 0.2 103/ul Normal 0.0-0.7 [facility] Comment on above: Performed By: #### C BC #### [facility] [address] [address] [address] Emily Lauren Eosinophils/100 WBC (Bld) 3.1 % Normal 0.9-7.0 [facility] Comment on above: Performed By: #### C BC #### [facility] [address] [place] [address] Dr. Emily Lauren Erythrocyte distribution width (RBC) [Ratio] 14.9 % Normal 11.0-15.0 [facility] Comment on above: Performed By: #### C BC #### [facility] [address] [place] [address] Dr. Emily Lauren Hematocrit (Bld) [Volume fraction] 39.9 % Critically low 42.0-54.0 [facility] Comment on above: Performed By: #### C BC #### [facility] [address] [place] [address] Dr. Emily Lauren Hemoglobin (Bld) [Mass/Vol] 12.9 g/dL Critically low 14.0-18.0 [facility] Comment on above: Performed By: #### C BC #### [facility] [address] [place] [address] Dr. Emily Lauren IG # 0.02 10e3/ul Normal 0.00-0.03 [facility] Comment on above: Performed By: #### C BC #### [facility] [address] [place] [address] Dr. Emily Lauren IG % 0.3 % Normal 0.0-0.5 [facility] Comment on above: Performed By: #### C BC #### [facility] [address] [place] [address] Dr. Emily Lauren LYMPH # 2.4 103/ul Normal 1.2-3.8 [facility] Comment on above: Performed By: #### C BC #### [facility] [address] [place] [address] Dr. Emily Lauren Lymphocytes/100 WBC (Bld) 30.7 % Normal 20.5-60.0 [facility] Comment on above: Performed By: #### C BC #### [facility] [address] [place] [address] Dr. Emily Lauren MANUAL DIFF REQ NO Normal [facility] Comment on above: Performed By: #### C BC #### [facility] [address] [place] [address] Dr. Emily Lauren MCH (RBC) [Entitic mass] 30.4 pg Normal 25.9-34.0 [facility] Comment on above: Performed By: #### C BC #### [facility] [address] [place] [address] Dr. Emily Lauren MCHC (RBC) [Mass/Vol] 32.3 g/dL Normal 29.9-35.2 [facility] Comment on above: Performed By: #### C BC #### [facility] [address] [place] [address] Dr. Emily Lauren MCV (RBC) [Entitic vol] 94.1 fL Critically high 80.0-94.0 [facility] Comment on above: Performed By: #### C BC #### [facility] [address] [place] [address] Dr. Emily Lauren MONO # 0.5 103/ul Normal 0.3-0.8 [facility] Comment on above: Performed By: #### C BC #### [facility] [address] [place] [address] Dr. Emily Lauren Monocytes/100 WBC (Bld) 5.9 % Normal 1.7-12.0 [facility] Comment on above: Performed By: #### C BC #### [facility] [address] [place] [address] Dr. Emily Lauren NEUT # 4.6 103/ul Normal 1.4-6.5 [facility] Comment on above: Performed By: #### C BC #### [facility] [address] [place] [address] Dr. Emily Lauren Neutrophils/100 WBC (Bld) 59.7 % Normal 43.0-75.0 [facility] Comment on above: Performed By: #### C BC #### [facility] [address] [place] [address] Dr. Emily Lauren Platelet mean volume (Bld) [Entitic vol] 9.7 fL Normal 9.5-13.5 [facility] Comment on above: Performed By: #### C BC #### [facility] [address] [place] [address] Dr. Emily Lauren PLT 176 103/ul Normal 150-450 [facility] Comment on above: Performed By: #### C BC #### [facility] [address] [place] [address] Dr. Emily Lauren RBC 4.24 106/ul Critically low 4.70-6.10 [facility] Comment on above: Performed By: #### C BC #### [facility] [address] [place] [address] Dr. Emily Lauren WBC 7.7 103/ul Normal 4.0-11.0 [facility] Comment on above: Performed By: #### C BC #### [facility] [address] [place] [address] Dr. Emiyl Lauren PROF 14(COMP METB)on 023 Albumin [Mass/Vol] 3.4 g/dL Normal 3.4-5.0 [facility] Comment on above: Performed By: #### C MP #### [facility] [address] [place] [address] Dr. Emily Lauren Albumin/Globulin [Mass ratio] 0.8 {ratio} Normal [facility] Comment on above: Performed By: #### C MP #### [facility] [address] [place] [address] Dr. Emily Lauren ALP [Catalytic activity/Vol] 81 U/L Normal 46-116 [facility] Comment on above: Performed By: #### C MP #### [facility] [address] [place] [address] Dr. Emily Lauren ALT [Catalytic activity/Vol] 44 U/L Normal 16-63 [facility] Comment on above: Performed By: #### C MP #### [facility] [address] [place] [address] Dr. Emily Lauren Anion gap [Moles/Vol] 11.3 mmol/L Normal [facility] Comment on above: Performed By: #### C MP #### [facility] [address] [address] [address] Emily Lauren AST [Catalytic activity/Vol] 41 U/L Critically high 15-37 [facility] Comment on above: Performed By: #### C MP #### [facility] [address] [address] [address] Emily Lauren Bilirubin [Mass/Vol] 1.4 mg/dL Critically high 0.2-1.0 [facility] Comment on above: Performed By: #### C MP #### [facility] [address] [place] [address] Dr. Emily Lauren Calcium [Mass/Vol] 9.2 mg/dL Normal 8.5-10.1 [facility] Comment on above: Performed By: #### C MP #### [facility] [address] [place] [address] Dr. Emily Lauren Chloride [Moles/Vol] 106 mmol/L Normal 98-107 [facility] Comment on above: Performed By: #### C MP #### [facility] [address] [place] [address] Dr. Emily Lauren CO2 [Moles/Vol] 29.8 mmol/L Normal 21.0-32.0 [facility] Comment on above: Performed By: #### C MP #### [facility] [address] [place] [address] Dr. Emily Lauren Creatinine [Mass/Vol] 0.83 mg/dL Normal 0.70-1.30 [facility] Comment on above: Performed By: #### C MP #### [facility] [address] [place] [address] Dr. Emily Lauren EGFR-AF CYMRAES >60 Normal >=60 [facility] Comment on above: Performed By: #### C MP #### [facility] [address] [place] [address] Dr. Emily Lauren EGFR-NON AF CYMRAES >60 Normal >=60 [facility] Comment on above: Performed By: #### C MP #### [facility] [address] [place] [address] Dr. Emily Lauren Globulin (S) [Mass/Vol] 4.2 g/dL Normal [facility] Comment on above: Performed By: #### C MP #### [facility] [address] [address] [address] Emily Lauren Glucose [Mass/Vol] 80 mg/dL Normal 74-106 [facility] Comment on above: Performed By: #### C MP #### [facility] [address] [address] [address] Emily Lauren Potassium [Moles/Vol] 4.1 mmol/L Normal 3.5-5.1 [facility] Comment on above: Performed By: #### C MP #### [facility] [address] [address] [address] Emily Lauren Protein [Mass/Vol] 7.6 g/dL Normal 6.4-8.2 [facility] Comment on above: Performed By: #### C MP #### [facility] [address] [address] [address] Emily Lauren Sodium [Moles/Vol] 143 mmol/L Normal 136-145 [facility] Comment on above: Performed By: #### C MP #### [facility] [address] [address] [address] Emily Lauren Urea nitrogen [Mass/Vol] 26.0 mg/dL Critically high 7.0-18.0 [facility] Comment on above: Performed By: #### C MP #### [facility] [address] [address] [address] Emily Lauren Urea nitrogen/Creatinine [Mass ratio] 31.3 mg/mg Normal [facility] Comment on above: Performed By: #### C MP #### [facility] [address] [address] [address] Emily Lauren Vital Signs Date Time Vital Sign Value Performing Clinician Facility 06-12-2024 14:42-0500 Body height 175.26 cm [facility] 06-12-2024 14:42-0500 Body mass index (BMI) [Ratio] 20.8 kg/m2 [facility] 06-12-2024 14:42-0500 Body weight 64.06 kg [facility] 06-12-2024 14:42-0500 Diastolic blood pressure 77 mm[Hg] [facility] 06-12-2024 14:42-0500 Heart rate 58 /min [facility] 06-12-2024 14:42-0500 Respiratory rate 12 /min [facility] 06-12-2024 14:42-0500 Systolic blood pressure 146 mm[Hg] [facility] 04-30-2024 08:50-0500 Body height 172.7 cm Dante Casillas DPM Work Phone: [facility] 04-30-2024 08:50-0500 Body mass index (BMI) [Ratio] 28.74 kg/m2 Dante Casillas DPM Work Phone: [facility] 04-30-2024 08:50-0500 Body weight 85.73 kg Dante Casillas DPM Work Phone: [facility] 04-30-2024 08:50-0500 Respiratory rate 16 /min Dante Casillas DPM Work Phone: [facility] 12-13-2023 14:39-0400 Body height 175.26 cm [facility] 12-13-2023 14:39-0400 Body mass index (BMI) [Ratio] 23.5 kg/m2 [facility] 12-13-2023 14:39-0400 Body weight 72.17 kg [facility] 12-13-2023 14:39-0400 Diastolic blood pressure 68 mm[Hg] [facility] 12-13-2023 14:39-0400 Heart rate 68 /min [facility] 12-13-2023 14:39-0400 Systolic blood pressure 121 mm[Hg] [facility] 12-12-2023 09:58-0400 Body height 172.7 cm Dante Casillas DPM Work Phone: [facility] 12-12-2023 09:58-0400 Body mass index (BMI) [Ratio] 28.74 kg/m2 Dante Casillas DPM Work Phone: [facility] 12-12-2023 09:58-0400 Body weight 85.73 kg Dante Casillas DPM Work Phone: [facility] 12-12-2023 09:58-0400 Diastolic blood pressure 79 mm[Hg] Dante Casillas DPM Work Phone: [facility] 12-12-2023 09:58-0400 Heart rate 80 /min Dante Casillas DPM Work Phone: [facility] 12-12-2023 09:58-0400 Systolic blood pressure 122 mm[Hg] Dante Casillas DPM Work Phone: [facility] 10-03-2023 15:59-0400 Body height 175.26 cm [facility] 10-03-2023 15:59-0400 Body mass index (BMI) [Ratio] 23.8 kg/m2 [facility] 10-03-2023 15:59-0400 Body weight 73.02 kg [facility] 10-03-2023 15:59-0400 Diastolic blood pressure 72 mm[Hg] [facility] 10-03-2023 15:59-0400 Heart rate 64 /min [facility] 10-03-2023 15:59-0400 Respiratory rate 12 /min [facility] 10-03-2023 15:59-0400 Systolic blood pressure 119 mm[Hg] [facility] 06-14-2023 14:52-0500 Body height 175.26 cm [facility] 06-14-2023 14:52-0500 Body mass index (BMI) [Ratio] 25.2 kg/m2 [facility] 06-14-2023 14:52-0500 Body weight 77.67 kg [facility] 06-14-2023 14:52-0500 Diastolic blood pressure 77 mm[Hg] [facility] 06-14-2023 14:52-0500 Heart rate 66 /min [facility] 06-14-2023 14:52-0500 Systolic blood pressure 128 mm[Hg] [facility] 02-22-2023 13:30-0400 Body height 175.26 cm Flex Ball Other [facility] Other 02-22-2023 13:30-0400 Body mass index (BMI) [Ratio] 27.82 kg/m2 [facility] Other [facility] Other 02-22-2023 13:30-0400 Body weight 85.46 kg [facility] Other [facility] Other 02-22-2023 13:30-0400 Diastolic blood pressure 70 mm[Hg] Flex Ball Other [facility] Other 02-22-2023 13:30-0400 Respiratory rate 12 /min Flex Ball Other [facility] Other 02-22-2023 13:30-0400 Systolic blood pressure 109 mm[Hg] Flex [facility] Other [facility] Other 08-14-2022 12:00-0400 Body height 175.26 cm Flex Ball Other [facility] Other 08-14-2022 12:00-0400 Body mass index (BMI) [Ratio] 28.29 kg/m2 [facility] Other [facility] Other 08-14-2022 12:00-0400 Body weight 86.91 kg Flex [facility] Other [facility] Other 08-14-2022 12:00-0400 Diastolic blood pressure 80 mm[Hg] Flex [facility] Other [facility] Other 08-14-2022 12:00-0400 Respiratory rate 20 /min Flex Ball Other [facility] Other 08-14-2022 12:00-0400 Systolic blood pressure 126 mm[Hg] Flex Isaacs Other [facility] [employer] Other Encounters Encounter Date Encounter Type Care Provider Facility Start: 06-12-2024 End: 06-12-2024 [facility] Work Phone: Start: 06-12-2024 End: 06-12-2024 Patient encounter procedure [facility] Work Phone: Start: 05-26-2024 Non-patient / Non-visit [facility] [employer] Work Phone: Start: 04-30-2024 End: 04-30-2024 Bamboo flowsheet Dante [...] Not Available Start: 12-13-2023 End: 12-13-2023 ambulatory [facility] Work Phone: Start: 12-13-2023 End: 12-13-2023 Patient encounter procedure [facility] Work Phone: Start: 12-12-2023 End: 12-12-2023 [...] Not Available Start: 12-04-2023 Non-patient / Non-visit [facility] Work Phone: Start: 10-23-2023 Non-patient / Non-visit [facility] Work Phone: Start: 10-03-2023 End: 10-03-2023 ambulatory [facility] Work Phone: Start: 10-03-2023 End: 10-03-2023 Patient encounter procedure [facility] Work Phone: Start: 09-27-2023 Non-patient / Non-visit [facility] Work Phone: Start: 09-26-2023 End: 09-26-2023 ambulatory DANTE CASILLAS Not Available Start: 09-05-2023 Non-patient / Non-visit [facility] Work Phone: Start: 08-20-2023 End: 09-02-2023 Evaluation and management of inpatient [facility] Start: 08-20-2023 Non-patient / Non-visit [facility] Work Phone: Start: 06-20-2023 End: 06-20-2023 ambulatory DANTE CASILLAS Not Available Start: 06-14-2023 End: 06-14-2023 ambulatory [facility] Work Phone: Start: 06-14-2023 End: 06-14-2023 Patient encounter procedure [facility] Work Phone: Start: 04-26-2023 End: 04-26-2023 ambulatory Flex Isaacs Other [facility] Other Start: 04-26-2023 Telephone encounter Flex Isaacs [facility] Start: 04-05-2023 End: 04-05-2023 ambulatory Flex Isaacs Other [facility] Other Start: 04-05-2023 Telephone encounter Flex Isaacs [facility] Start: 03-19-2023 End: 03-19-2023 ambulatory Flex Isaacs Other [facility] Other Start: 03-19-2023 Telephone encounter Flex Isaacs [facility] Start: 03-07-2023 End: 03-07-2023 ambulatory Flex Isaacs Other [facility] Other Start: 03-07-2023 Home visit est pt mo d-hi severity 40 minutes Flex Isaacs [facility] Start: 03-06-2023 End: 03-06-2023 ambulatory Flex Isaacs Other [facility] Other Start: 03-06-2023 Telephone encounter Flex Isaacs [facility] Start: 03-05-2023 End: 03-05-2023 ambulatory Flex Isaacs Other [facility] Other Start: 03-05-2023 Telephone encounter Flex Isaacs [facility] Start: 02-28-2023 End: 02-28-2023 ambulatory Kamilla Vieira Other [facility] Other Start: 02-28-2023 Nursing evaluation o f patient and report Kamilla Vieira [facility] Start: 02-22-2023 End: 02-22-2023 ambulatory Flex Isaacs Other [facility] Other Start: 02-22-2023 Transitional care terence hunter srvc 14 day discharge Flex Isaacs [facility] Start: 02-20-2023 End: 02-20-2023 ambulatory Flex Isaacs Other [facility] Other Start: 02-20-2023 Telephone encounter Flex Ball [facility] Start: 02-11-2023 End: 02-11-2023 ambulatory Flex Isaacs Other [facility] Other Start: 02-11-2023 Telephone encounter Flex Ball [facility] Start: 01-03-2023 End: 01-03-2023 ambulatory Flex Isaacs Other [facility] Other Start: 01-03-2023 Telephone encounter Flex Ball [facility] Start: 01-02-2023 End: 01-02-2023 ambulatory Flex Isaacs Other [facility] Other Start: 01-02-2023 Telephone encounter Flex Ball [facility] Start: 01-01-2023 End: 01-01-2023 ambulatory Flex Isaacs Other [facility] Other Start: 01-01-2023 Telephone encounter Flex Ball [facility] Start: 12-31-2022 End: 12-31-2022 ambulatory Flex Ferny Other [facility] Other Start: 12-31-2022 Telephone encounter Lfex Ball [facility] Start: 12-10-2022 End: 12-10-2022 ambulatory Flex Ball Other [facility] Other Start: 12-10-2022 Telephone encounter Flex Ball [facility] Start: 12-09-2022 End: 12-09-2022 ambulatory Flex Ball Other [facility] Other Start: 12-09-2022 Telephone encounter [facility] Start: 10-04-2022 End: 10-04-2022 ambulatory Flex Isaacs Other [facility] Other Start: 10-04-2022 Telephone encounter [facility] Start: 08-16-2022 End: 08-16-2022 ambulatory Flex Isaacs Other [facility] Other Start: 08-16-2022 Telephone encounter [facility] Start: 08-15-2022 Telephone encounter [facility] Start: 08-15-2022 End: 08-16-2022 ambulatory FLEX ISAACS [place] [employer] Other Start: 08-14-2022 End: 08-14-2022 ambulatory Flex Isaacs Other [facility] Other Start: 08-14-2022 Patient encounter procedure [facility] Start: 05-20-2019 Adult health examination Solomon Isaacs Other [facility] Other Procedures Date Procedure Procedure Detail Performing Clinician Start: 07-03-2017 Diabetes mellitus screening Flex Isaacs Other Start: 11-15-2015 Screening for malign ant neoplasm of colon Flex Isaacs Other Screening for malign ant neoplasm of prostate [facility] Other Plan of Treatment Date Care Activity Detail Author Start: 07-16-2024 End: 07-16-2024 Patient encounter procedure 07/16/2024 9:10 AM EDT Procedure Visit [facility] [address] [facility] [address] [place] [address] Dante Casillas DPM [id number] [facility] [address] [place] [address] [facility] Start: 04-30-2024 End: 04-30-2024 Patient encounter procedure 04/30/2024 9:00 AM EST Procedure Visit [facility] [address] [facility] [address] [place] [address] Dante Casillas DPM [address] [address] Pain due to onychomycosis of toenails of both feet (Primary Dx); Venous insufficiency; Xerosis cutis [facility] Comment on above: Pain due to onychomy cosis of toenails of both feet (Primary Dx); Venous insufficiency; Xerosis cutis Start: 02-27-2024 End: 02-27-2024 Patient encounter procedure 02/27/2024 9:50 AM EST Procedure Visit [facility] [address] [id number] Dante Casillas DPM [address] [address] [facility] Start: 12-22-2023 Influenza vaccination Influ[facility] in[facility] Start: 12-12-2023 End: 12-12-2023 Patient encounter procedure 12/12/2023 10:00 AM EDT Procedure Visit [facility] [address] [address] Dante Casillas DPM [address] [address] Onychomycosis (Primary Dx); Toe pain, bilateral; Venous insufficiency [facility] Comment on above: Onychomycosis (Prima ry Dx); Toe pain, bilateral; Venous insufficiency Start: 07-03-2018 Pneumococcal Vaccine : 65+ Years (2 of 2 - PPSV23 or PCV20) Pneumococcal Vaccine: 65+ Years (2 of 2 - PPSV23 or PCV20) [facility] Start: 1940 Medicare Annual Well ness (AWV) Medicare Annual Wellness (AWV) [facility] XR Chest 2 Views [facility] Immunizations Immunization Date Immunization Notes Care Provider Fa cili 02-18-2024 influenza virus vaccine, unspecified formulation Dante Casillas DPM Work Phone: [facility] 02-28-2023 influenza, high dose seasonal, preservative-free Flex Isaacs Other [facility] [employer] Other 02-28-2023 influenza virus vaccine, unspecified formulation [facility] 04-11-2022 influenza, injectabl e, quadrivalent, preservative free Flex Isaacs Other [facility] 02-23-2021 COVID-19 Vaccine Moderna - Documentation Purposes Only Flex Ferny Other [facility] 06-17-2020 COVID-19 Vaccine Moderna - Documentation Purposes Only Flex Ferny Other [facility] 05-20-2020 COVID-19 Vaccine Moderna - Documentation Purposes Only Flex Ferny Other [facility] 07-03-2017 pneumococcal conjuga te vaccine, 13 valent Flex Isaacs Other [facility] 07-03-2017 pneumococcal Conjuga te, unspecified formulation; Translations: [Need for prophylactic vaccination against Streptococcus pneumoniae (pneumococcus)] Flex Isaacs Other [facility] [employer] Other 03-07-2017 influenza virus vaccine, split virus (incl. purified surface antigen) Flex Ferny Other [facility] [employer] Other 03-07-2017 influenza virus vaccine, unspecified formulation [facility] 03-28-2016 influenza virus vaccine, split virus (incl. purified surface antigen) Flex Ferny Other [facility] [employer] Other 03-28-2016 influenza virus vaccine, unspecified formulation [facility] 03-08-2015 influenza virus vaccine, split virus (incl. purified surface antigen) Flex Ferny Other [facility] [employer] Other 03-08-2015 influenza virus vaccine, unspecified formulation [facility] 04-09-2013 tetanus and diphther ia toxoids, adsorbed, preservative free, for adult use (5 Lf of tetanus toxoid and 2 Lf of diphtheria toxoid) Flex Isaacs Other [facility] 01-28-2013 tetanus and diphther ia toxoids, adsorbed, preservative free, for adult use (5 Lf of tetanus toxoid and 2 Lf of diphtheria toxoid) Flex Isaacs Other [facility] 03-29-2010 pneumococcal polysaccharide vaccine, 23 valent Flex Isaacs Other [facility] Payers Date Payer Category Payer Unknown [id number] 2018 Private Health Insurance [id number] 2018 Unknown [id number] 2004 Medicare [id number] 1959 Medicare [id number] 1938 Unknown [id number] 1938 Unknown [id number] 1938 Unknown [id number] 1938 Unknown [id number] 1938 Unknown [id number] 1938 Unknown [id number] Private Health Insurance [facility] [id number] Social History Date Type Detail Facility Start: 09-26-2023 End: 12-12-2023 Sex Assigned At [facility] [place] [employer] Other Start: 1940 Sex Assigned At Male [facility] Start: 12-13-2023 End: 12-13-2023 Tobacco smoking status NHIS Never smoked tobacco (finding) [facility] Start: 10-19-2022 Tobacco smoking stat us TNIS Ex-smoker [facility] History of tobacco use Current smoker [facility] History of tobacco use Cigarette Smoker [facility] Start: 10-19-2022 Tobacco use and exposure Smokeless tobacco non-user [facility] Start: 09-26-2023 End: 12-12-2023 Alcoholic beverage intake Lifetime non-drinker (finding) [facility] Start: 09-26-2023 End: 12-12-2023 History of Social function [facility] Start: 06-20-2023 Alcohol Comment caffeine intak e: 1-2 cups perday [facility] Start: 1940 Sex assigned at Not on file [facility] Start: 06-12-2024 Sex Male (finding) [facility] Clinical Notes 08-14-2022 to 04-30-2024 Dante Casillas, DPM - 04/30/2024 9:00 AM Dejuan Casillas, TERELLM - 12/12/2023 10:00 AM EDT Note Date [...] Insecurity: No Food Insecurity (08/21/2023) Received from [facility] Hunger Vital Sign Worried About Running Out of Food in the Last Year: Never true Ran Out of Food in the Last Year: Never true Transportation Needs: No Transportation Needs (08/21/2023) Received from [facility] PRAPARE - Transportation Lack of Transportation (Medical): No Lack of Transportation (Non-Medical): No Physical Activity: Not on file Stress: Not on file Social Connections: Not on file Intimate Partner Violence: Not on file Housing Stability: Low Risk (08/21/2023) Received from [facility] Housing Stability Vital Sign Unable to [...] Dante Casillas DPM documented in this encounter [facility] 12-12-2023 History of Presen t illness Narrative [...] he had healed ulcerations and currently in skilled nursing Allergies: No Known Allergies Past Medical History: [...] Insecurity: No Food Insecurity (08/21/2023) Received from [facility] Hunger Vital Sign Worried About Running Out of Food in the Last Year: Never true Ran Out of Food in the Last Year: Never true Transportation Needs: No Transportation Needs (08/21/2023) Received from [facility] PRAPARE - Transportation Lack of Transportation (Medical): No Lack of Transportation (Non-Medical): No Physical Activity: Not on file Stress: Not on file Social Connections: Not on file Intimate Partner Violence: Not on file Housing Stability: Low Risk (08/21/2023) Received from [facility] Housing Stability Vital Sign Unable to [...] Dante Casillas DPM documented in this encounter [facility] 04-26-2023 Evaluation note Encounter Date Diagnosis Assessment Notes Apr, Acute deep vein thrombosis (DVT) of right peroneal vein (ICD-10 - I82.451) [facility] Other 11-16-2023 Evaluation note* Encounter Date Diagnosis [...] for 6months. Check DDimer and venous US. [facility] Other 11-14-2023 Evaluation note* Encounter Date Diagnosis Assessment Notes Treatment Notes Treatment Clinical Notes Feb, Closed fracture of one rib of right side with routine healing, subsequent encounter (ICD-10 - S22.31XD) [facility] Other 11-09-2023 Evaluation note* Encounter Date Diagnosis Assessment Notes Treatment Notes Treatment Clinical Notes Feb, Need for vaccination (ICD-10 - Z23) [facility] Other 11-03-2023 Evaluation note* Encounter Date Diagnosis [...] - E44.0) Protein/calorie supplements daily. Monitor weight. [facility] Other 08-21-2023 Evaluation note* Encounter Date Diagnosis Assessment Notes Treatment Notes Treatment Clinical Notes Nov, Acute deep vein thrombosis (DVT) of left peroneal vein (ICD-10 - I82.452) Nov, Pressure injury of deep tissue of sacral region (ICD-10 - L89.156) Nov, Skin ulcer of heel, limited to breakdown of skin, unspecified laterality (ICD-10 - L97.401) [facility] Other 04-26-2023 NotePROCEDURE: XR HAND MEEK MIN [...] Electronically authenticated by: ROHINI PEARSON Date: 2022-08-15 11:57[facility]04-25-2023 Evaluation note* Encounter Date Diagnosis Assessment [...] Jul, Fatigue, unspecified type (ICD-10 - R53.83) [facility] Other Evaluation noteNo [employer] Other Evaluation note* Diagnosis Onset Date Resolution Status Anemia acute Chronic venous insufficiency acute Lumbar spondylosis acute Pharyngoesophageal dysphagia acute Pulmonary hypertension acute Right rib fracture acute [facility] Work Phone: Evaluation note* Diagnosis Onset Date Resolution Status Chronic bronchitis acute Chronic venous insufficiency acute HAP (hospital-acquired pneumonia) acute Hx of small bowel obstruction acute Lumbar spondylosis acute Pharyngoesophageal dysphagia acute Pulmonary hypertension acute [facility] Work Phone: Evaluation note* Diagnosis Onset [...] acute Medicare annual wellness visit, subsequent noneactive [facility] Work Phone: Evaluation note* Diagnosis Onychomycosis- Primary Dermatophytosis of nail Toe pain, bilateral Venous insufficiency Unspecified venous (peripheral) insufficiency documented in this encounter [facility] Healthcare[facility] note* Diagnosis Pain due to onychomycosis of toenails of both feet- Primary Venous insufficiency Unspecified venous (peripheral) insufficiency Xerosis cutis Other specified disease of sebaceous glands documented in this encounter [facility] Healthcare[facility] note* Diagnosis Onset Date Resolution Status Admit Date Anemia acute June 12, 2024 2:19pm Benign p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 acute June 12, 025 2:19pm Chronic bronchitis acute 2024 2:19pm Chronic venous insufficiency acute June 12, 2024 2:19pm Lumbar spondylosis acute 2024 2:19pm Pulmonary hypertension acute Fe 2024 2:19pm [facility] Work Phone: Hisaozw general Narrative - Reported* Type Description Date Medical History Diarrhea Medical History Chronic venous insufficiency Medical History 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 Medical History Seasonal allergic rhinitis due t o pollen Surgical History CHOLECYSTECTOMY Surgical History APPENDECTOMY Surgical History TONSILLECTOMY Surgical History LEFT KNEE ARTHROSCOPY Hospitalization History SEE SURGICAL HX MC10 Other [facility]wuq general Narrative - Reported* Type Description Date [...] LEFT KNEE ARTHROSCOPY Hospitalization History SEE SURGICAL MC10 Other His12Bis general Narrative - Reported* Type Description Date [...] LEFT KNEE ARTHROSCOPY Hospitalization History SEE SURGICAL MC10 Other History general Narrative - Reported* Type [...] 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 Hospitalization History SEE SURGICAL MC10 Other Hisplps general Narrative - Reported* Type Description Date [...] 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 Hospitalization History SEE SURGICAL MC10 Other Summary Purpose Family History Relationship Condition Age at Onset Recorded Date/T jorge sister Unknown Advance Directives Advance Directive Response Recorded Date/ Time Advance [...] Pulmonary hypertension Medicare annual wellness visit, subsequent Chief Complaint Admit Date 6 month f/u June 12, 2024 2:19pm Reason for Visit Admit Date Anemia June 12, 2024 2:19pm Benign p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 June 12, 2024 2:19pm Chronic bronchitis June 12, 2024 2:19pm Chronic venous insufficiency June 122024 2:19pm Lumbar spondylosis June 12, 2024 2:19pm Pulmonary hypertension June 12 2:19pm Additional Source Comments REASON FOR VISIT (unrecogniz ed section and content) Reason Comments Toenail Care Non DM Nails Reason Comments Toenail Care Non dm nail care (unrecognized sect ion and content) No Status Records FoundNo Status Records FoundNo Status Records Found INFORMATION SOURCE (unrecogn ized section and content) DATE CREATED AUTHOR 08/19/2022 [facility] DATE CREATED AUTHOR AUTHOR'S ORGANIZ ATION 10/12/2023 [facility] DATE CREATED AUTHOR AUTHOR'S ORGANIZ ATION 05/05/2024 [facility] dical Specialists EPIC Care Teams (unrecognized sec [...] December 13, 2023 End: December 13, 2023 Od Grinder Operator Relationship Specialty Start Date End Date Flex Isaacs MD [address] [place] [address] [phone] PCP - General Internal Medicine 04/11/23 Sahra Mishra MD [address] [place], [place] [phone] PCP - ACO Reach 06/21/23 Od Grinder Operator Relationship Specialty Start Date End Date Flex sIaacs MD [address] [place] [address] [phone] PCP - General Internal Medicine 04/11/23 Sahra Mishra MD [address] [place], [place] [phone] PCP - ACO Reach 06/21/23 Od Grinder Operator Relationship Specialty [place] [address] [place] [address] [phone] PCP - General Internal Medicine 04/11/23 Sahra Mishra MD [address] [facility] [place], [place] [phone] PCP - ACO Reach 06/21/23 Od Grinder Operator Relationship Specialty Start Date End Date Flex Isaacs MD [address] [place] [phone] PCP - General Internal Medicine 04/11/23 Sahra Mishra MD [address] [place] [id number] PCP - ACO Reach 06/21/23 Team Status: Active Member Role Status Dates Flex Isaacs DO Primary Care Provide r, Attending Provider Active Start: May 26, 2024 Team Status: Inactive Member Role Status Dates Flex Isaacs DO Primary Care Provide r, Attending Provider Active Start: June 12, 2024 End: June 12, 2024 Goals (unrecognized section and content) Goals may [...] BE BASED ON THE PRIMARY CLINICAL RECORDS. [facility] [employer] [facility]. provides no warranty or guarantee of the accuracy or completeness of information in this document.
[2024-07-16 11:15] LABS: Alanine Aminotransferase 58 U/L (16-63); Albumin Globulin Ratio 0.5; Albumin Level 2.9 g/dL (3.4-5.0); Alkaline Phosphatase 122 U/L (46-116); Anion Gap 12.2; Aspartate Amino Transferase 73 U/L (15-37); BUN Creatinine Ratio 30.1; Bilirubin Total 1.1 mg/dL (0.2-1.0); Carbon Dioxide 28.8 mmol/L (21.0-32.0); Chloride 102 mmol/L (98-107); Estimated GFR (African America >60 (>=60 mL/min/1.73m^2); Estimated GFR (Non-African Ame >60 (>=60 mL/min/1.73m^2); Glucose 86 mg/dL (74-106); Sodium 139 mmol/L (136-145); Thyroid Stimulating Hormone 2.429 uIU/mL (0.358-3.740); Total Protein 8.9 g/dL (6.4-8.2)
== END 2024-07-16 09:47 | disposition home or self-care (01) ==
LOC: LAB 09:46
PROVIDERS: PCP Internal Medicine; Visit Provider Internal Medicine
DX: D64.9 Anemia, unspecified (principal); R53.83 Other fatigue
CPT/HCPCS: 36415; 80053; 84443; 85025

== ENCOUNTER 2024-07-18 10:39 | Inpatient (IN) | payer MEDICARE, OTHER, SELFPAY ==
[2024-07-18] VITALS (23 sets, daily range): BP systolic 122–162; BP diastolic 65–75; PULSE 50–59; TEMP 35–36.4; O2SAT 90–98; BMI 20.7
--- OUTSIDE RECORDS SUMMARY | 2024-07-18 10:47 | XMS_ITS | CCD ---
Author Organization [facility] Informat ion Partnership [facility] Care Team Providers Care Commercial Lawn Specialist Name Role Phone Flex Isaacs Unavailable DR FLEX ISAASC Admitting Unavailable UMAIR, DR MENDEZ Primary Care Unavailable UMAIR, DR MENDEZ Consulting Unavailable UMAIR, DR MENDEZ Attending Unavailable Rohini Pearson Consulting Unavailable Kamilla Vieira Unavailable [phone] JAVI GLYNN Consulting Unavailable ANEL BENSON Admitting Unavail able ANEL BENSON Attending Unavail able FLEX ISAACS Primary Care Unavailable JESSICA PIERCE Consulting Unavailable CESAR PHILLIPS Consulting Unavailable DESTINEE MERCADO Consulting Unavailable MICH DENT Consulting Unavailable Flex Isaacs MD Primary Care Provider Sahra Mishra MD Unavailable [phone] Sahra Mishra MD Unavailable DANTE CASILLAS Attending Unavailable DANTE CASILLAS Attending Unavailable DANTE CASILLAS Attending Unavailable DANTE CASILLAS Attending Unavailable Allergies Allergy Classification Reported Allergen(s) Allergy Type Date of Onset Reaction(s) Facility (8 sources) patient allergy list reviewed by nurse or physicia Propensity to adverse reactions 5 Comment:Done Altair Prep Other Medications Current Medications Medication Drug Class(es) [...] 14, 2023 3:03pm take 1 capsule by mo [facility] every six hours Acetaminophen 500 MG 1 capsule as needed Orally every 6 hrs Active take 2 tablets by mo [facility] every eight hours Tylenol 8 Hour [...] 14, 2023 3:05pm take 1 tablet by [facility] every twelve hours Eliquis 5 [...] tablet Discontinued 20 MG PO .QOD 15 30 September 27, 2023 12:28pm June 12, 2024 [...] October 03, 2023 3:06pm polyethylene glycol 3350 [id number] mg powder for oral solution (3 sources) [...] 3 Episodic Other aftercare (2 sources) Other moth exterminator (current) drug therapy; Translations: [[facility] CURRENT DRUG THERAPY] Onset: 3 Episodic Other [...] Basophils (Bld) [#/Vol] Automated basophil count 0.0-0.1 [facility] Basophils/100 WBC Auto (Bld) on 05-26-2024 Basophils/100 WBC (Bld) Automated basophil % 0.2-2.0 [facility] Eosinophils/100 WBC Auto (Bl d)on 05-26-2024 Eosinophils/100 WBC (Bld) Automated eosinophil % 0.9-7.0 [facility] Erythrocyte distribution wid th Auto (RBC) [Ratio]on 05-26-2024 Erythrocyte distribution width (RBC) [Ratio] Erythrocyte distribution width [Ratio] by Automated count High 11.0-15.0 [facility] Estimated glomerular filtrat ion rate (GFR) non- Americanon 05-26-2024 GFR/1.73 sq M.predicted among non-blacks MDRD (S/P/Bld) [Vol rate/Area] Estimated glomerular filtration rate (GFR) non- >=60 mL/min/1.73m 2 [facility] Globulin Calc (S) [Mass/Vol] on 05-26-2024 Globulin (S) [Mass/Vol] Serum globulin measurement by calculation (mass/volume) [facility] Hematocrit Auto (Bld) [Volum e fraction]on 05-26-2024 Hematocrit (Bld) [Volume fraction] Hematocrit [Volume Fraction] of Blood by Automated count Low 42.0-54.0 [facility] Hemoglobin [Mass/volume] in Bloodon 05-26-2024 Hemoglobin (Bld) [Mass/Vol] Hemoglobin [Mass/volume] in Blood Low 14.0-18.0 [facility] Iron binding capacity [Mass/ volume] in Serum or Plasmaon 05-26-2024 Iron binding capacity [Mass/Vol] Iron binding capacity [Mass/volume] in Serum or Plasma Low 250.0-450.0 [facility] Iron saturation [Mass Fracti on] in Serum or Plasmaon 05-26-2024 Iron saturation [Mass fraction] Iron saturation [Mass Fraction] in Serum or Plasma [facility] Laboratory - Chemistry and C hemistry - challengeon 05-26-2024 Albumin [Mass/Vol] 2.7 g/dL Low 3.4-5.0 [facility] ALP [Catalytic activity/Vol] 150 U/L High 46-116 [facility] ALT [Catalytic activity/Vol] 49 U/L 16-63 [facility] AST [Catalytic activity/Vol] 57 U/L High 15-37 [facility] Bilirubin [Mass/Vol] 0.8 mg/dL 0.2-1.0 [facility] Calcium [Mass/Vol] 8.9 mg/dL 8.5-10.1 [facility] Chloride [Moles/Vol] 103 mmol/L 98-107 [facility] CO2 [Moles/Vol] 32.2 mmol/L High 21.0-32.0 [facility] Cobalamin (Vitamin B12) [Mass/Vol] 685 pg/mL 232-1245 [facility] Comment on above: Performed at: [facility] [address] [id number] Director: Jackson Collins PhD, Phone: [phone] Creatinine [Mass/Vol] 0.84 mg/dL 0.70-1.30 [facility] Ferritin [Mass/Vol] 276.0 ng/mL 26.0-388.0 [facility] GFR/1.73 sq M.predicted MDRD (S/P/Bld) [Vol rate/Area] mL/min/{1.73_m2} >=60 mL/min/1.73m 2 [facility] Glucose [Mass/Vol] 81 mg/dL 74-106 [facility] Iron [Mass/Vol] 64.0 ug/dL Low 65.0-175.0 [facility] Potassium [Moles/Vol] 4.4 mmol/L 3.5-5.1 [facility] Protein [Mass/Vol] 7.6 g/dL 6.4-8.2 [facility] Sodium [Moles/Vol] 142 mmol/L 136-145 [facility] Urea nitrogen [Mass/Vol] 29.0 mg/dL High 7.0-18.0 [facility] Urea nitrogen/Creatinine [Mass ratio] 34.5 mg/mg [facility] Laboratory - Hematology and Cell countson 05-26-2024 Immature granulocytes/100 WBC (Bld) 0.2 % 0.0-0.5 [facility] Leukocytes [#/volume] correc александр for nucleated erythrocytes in Blood by Automated counon 05-26-2024 WBC corrected for nucl RBC Auto (Bld) [#/Vol] Leukocytes [#/volume] corrected for nucleated erythrocytes in Blood by Automated coun 4.0-11.0 [facility] Lymphocytes Auto (Bld) [#/Vo l]on 05-26-2024 Lymphocytes (Bld) [#/Vol] Lymphocytes [#/volume] in Blood by Automated count 1.2-3.8 [facility] Lymphocytes/100 WBC Auto (Bl d)on 05-26-2024 Lymphocytes/100 WBC (Bld) Lymphocytes/100 leukocytes in Blood by Automated count 20.5-60.0 [facility] MCH Auto (RBC) [Entitic mass ]on 05-26-2024 MCH (RBC) [Entitic mass] MCH [Entitic mass] by Automated count 25.9-34.0 [facility] MCHC Auto (RBC) [Mass/Vol]on 05-26-2024 MCHC (RBC) [Mass/Vol] MCHC [Mass/volume] by Automated count 29.9-35.2 [facility] MCV Auto (RBC) [Entitic vol] on 05-26-2024 MCV (RBC) [Entitic vol] MCV [Entitic volume] by Automated count 80.0-94.0 [facility] Monocytes Auto (Bld) [#/Vol] on 05-26-2024 Monocytes (Bld) [#/Vol] Automated blood monocyte count 0.3-0.8 [facility] Monocytes/100 WBC Auto (Bld) on 05-26-2024 Monocytes/100 WBC (Bld) Automated monocyte % 1.7-12.0 [facility] Neutrophils Auto (Bld) [#/Vo l]on 05-26-2024 Neutrophils (Bld) [#/Vol] Neutrophils [#/volume] in Blood by Automated count 1.4-6.5 [facility] Neutrophils/100 WBC Auto (Bl d)on 05-26-2024 Neutrophils/100 WBC (Bld) Automated neutrophil % 43.0-75.0 [facility] No Panel Informationon 05-26 Eosinophils # (Auto) 0.1 10 3/uL 0.0-0.7 [facility] Folate 32.20 ng/mL 8.60-58.90 [facility] Immature Granulocyte # (Auto) 0.01 10 3/uL 0.00-0.03 [facility] Platelet mean volume Auto (B ld) [Entitic vol]on 05-26-2024 Platelet mean volume (Bld) [Entitic vol] Platelet mean volume [Entitic volume] in Blood by Automated count 9.5-13.5 [facility] Platelets Auto (Bld) [#/Vol] on 05-26-2024 Platelets (Bld) [#/Vol] Platelets [#/volume] in Blood by Automated count 150-450 [facility] RBC Auto (Bld) [#/Vol]on RBC (Bld) [#/Vol] Erythrocytes [#/volume] in Blood by Automated count Low 4.70-6.10 [facility] Serum or plasma albumin/glob ulin mass ratioon 05-26-2024 Albumin/Globulin [Mass ratio] Serum or plasma albumin/globulin mass ratio [facility] Serum or plasma anion gap de terminationon 05-26-2024 Anion gap [Moles/Vol] Serum or plasma anion gap determination [facility] Basophils Auto (Bld) [#/Vol] on 12-04-2023 Basophils (Bld) [#/Vol] 0.0 10 3/uL 0.0-0.1 [facility] Basophils/100 WBC Auto (Bld) on 12-04-2023 Basophils/100 WBC (Bld) 0.5 % 0.2-2.0 [facility] Eosinophils/100 WBC Auto (Bl d)on 12-04-2023 Eosinophils/100 WBC (Bld) 3.0 % 0.9-7.0 [facility] Erythrocyte distribution wid th Auto (RBC) [Ratio]on 12-04-2023 Erythrocyte distribution width (RBC) [Ratio] 15.5 % High 11.0-15.0 [facility] Estimated glomerular filtrat ion rate (GFR) non- Americanon 12-04-2023 GFR/1.73 sq M.predicted among non-blacks MDRD (S/P/Bld) [Vol rate/Area] mL/min/{1.73_m2} >=60 [facility] Globulin Calc (S) [Mass/Vol] on 12-04-2023 Globulin (S) [Mass/Vol] 4.9 g/dL [facility] Hematocrit Auto (Bld) [Volum e fraction]on 12-04-2023 Hematocrit (Bld) [Volume fraction] 36.3 % Low 42.0-54.0 [facility] Hemoglobin [Mass/volume] in Bloodon 12-04-2023 Hemoglobin (Bld) [Mass/Vol] 11.8 g/dL Low 14.0-18.0 [facility] Iron binding capacity [Mass/ volume] in Serum or Plasmaon 12-04-2023 Iron binding capacity [Mass/Vol] 293.0 ug/dL 250.0-450.0 [facility] Iron saturation [Mass Fracti on] in Serum or Plasmaon 12-04-2023 Iron saturation [Mass fraction] 18.1 % [facility] Laboratory - Chemistry and C hemistry - challengeon 12-04-2023 Albumin [Mass/Vol] 2.7 g/dL Low 3.4-5.0 [facility] ALP [Catalytic activity/Vol] 98 U/L 46-116 [facility] ALT [Catalytic activity/Vol] 43 U/L 16-63 [facility] AST [Catalytic activity/Vol] 49 U/L High 15-37 [facility] Bilirubin [Mass/Vol] 0.7 mg/dL 0.2-1.0 [facility] Calcium [Mass/Vol] 9.0 mg/dL 8.5-10.1 [facility] Chloride [Moles/Vol] 105 mmol/L 98-107 [facility] CO2 [Moles/Vol] 29.1 mmol/L 21.0-32.0 [facility] Cobalamin (Vitamin B12) [Mass/Vol] 782.0 pg/mL 193.0-986.0 [facility] Creatinine [Mass/Vol] 0.78 mg/dL 0.70-1.30 [facility] Ferritin [Mass/Vol] 139.0 ng/mL 26.0-388.0 [facility] GFR/1.73 sq M.predicted MDRD (S/P/Bld) [Vol rate/Area] mL/min/{1.73_m2} >=60 [facility] Glucose [Mass/Vol] 90 mg/dL 74-106 [facility] Iron [Mass/Vol] 53.0 ug/dL Low 65.0-175.0 [facility] Potassium [Moles/Vol] 4.5 mmol/L 3.5-5.1 [facility] Protein [Mass/Vol] 7.6 g/dL 6.4-8.2 [facility] Sodium [Moles/Vol] 138 mmol/L 136-145 [facility] Urea nitrogen [Mass/Vol] 26.0 mg/dL High 7.0-18.0 [facility] Urea nitrogen/Creatinine [Mass ratio] 33.3 mg/mg [facility] Laboratory - Hematology and Cell countson 12-04-2023 Immature granulocytes/100 WBC (Bld) 0.2 % 0.0-0.5 [facility] Leukocytes [#/volume] correc александр for nucleated erythrocytes in Blood by Automated counon 12-04-2023 WBC corrected for nucl RBC Auto (Bld) [#/Vol] 5.6 10 3/uL 4.0-11.0 [facility] Lymphocytes Auto (Bld) [#/Vo l]on 12-04-2023 Lymphocytes (Bld) [#/Vol] 2.0 10 3/uL 1.2-3.8 [facility] Lymphocytes/100 WBC Auto (Bl d)on 12-04-2023 Lymphocytes/100 WBC (Bld) 36.0 % 20.5-60.0 [facility] MCH Auto (RBC) [Entitic mass ]on 12-04-2023 MCH (RBC) [Entitic mass] 30.3 pg 25.9-34.0 [facility] MCHC Auto (RBC) [Mass/Vol]on 12-04-2023 MCHC (RBC) [Mass/Vol] 32.5 g/dL 29.9-35.2 [facility] MCV Auto (RBC) [Entitic vol] on 12-04-2023 MCV (RBC) [Entitic vol] 93.1 fL 80.0-94.0 [facility] Monocytes Auto (Bld) [#/Vol] on 12-04-2023 Monocytes (Bld) [#/Vol] 0.3 10 3/uL 0.3-0.8 [facility] Monocytes/100 WBC Auto (Bld) on 12-04-2023 Monocytes/100 WBC (Bld) 5.7 % 1.7-12.0 [facility] Neutrophils Auto (Bld) [#/Vo l]on 12-04-2023 Neutrophils (Bld) [#/Vol] 3.1 10 3/uL 1.4-6.5 [facility] Neutrophils/100 WBC Auto (Bl d)on 12-04-2023 Neutrophils/100 WBC (Bld) 54.6 % 43.0-75.0 [facility] No Panel Informationon 12-03 Eosinophils # (Auto) 0.2 10 3/uL 0.0-0.7 [facility] Folate 8.50 ng/mL Low 8.60-58.90 [facility] Immature Granulocyte # (Auto) 0.01 10 3/uL 0.00-0.03 [facility] Platelet mean volume Auto (B ld) [Entitic vol]on 12-04-2023 Platelet mean volume (Bld) [Entitic vol] 9.9 fL 9.5-13.5 [facility] Platelets Auto (Bld) [#/Vol] on 12-04-2023 Platelets (Bld) [#/Vol] 143 10 3/uL Low 150-450 [facility] RBC Auto (Bld) [#/Vol]on RBC (Bld) [#/Vol] 3.90 10 6/uL Low 4.70-6.10 [facility] Serum or plasma albumin/glob ulin mass ratioon 12-04-2023 Albumin/Globulin [Mass ratio] 0.6 {ratio} [facility] Serum or plasma anion gap de terminationon 12-04-2023 Anion gap [Moles/Vol] 8.4 mmol/L [facility] Basophils Auto (Bld) [#/Vol] on 10-23-2023 Basophils (Bld) [#/Vol] 0.0 10 3/uL 0.0-0.1 [facility] Basophils/100 WBC Auto (Bld) on 10-23-2023 Basophils/100 WBC (Bld) 0.3 % 0.2-2.0 [facility] Eosinophils/100 WBC Auto (Bl d)on 10-23-2023 Eosinophils/100 WBC (Bld) 4.6 % 0.9-7.0 [facility] Erythrocyte distribution wid th Auto (RBC) [Ratio]on 10-23-2023 Erythrocyte distribution width (RBC) [Ratio] 15.4 % High 11.0-15.0 [facility] Estimated glomerular filtrat ion rate (GFR) non- Americanon 10-23-2023 GFR/1.73 sq M.predicted among non-blacks MDRD (S/P/Bld) [Vol rate/Area] mL/min/{1.73_m2} >=60 [facility] Globulin Calc (S) [Mass/Vol] on 10-23-2023 Globulin (S) [Mass/Vol] 4.9 g/dL [facility] Hematocrit Auto (Bld) [Volum e fraction]on 10-23-2023 Hematocrit (Bld) [Volume fraction] 35.9 % Low 42.0-54.0 [facility] Hemoglobin [Mass/volume] in Bloodon 10-23-2023 Hemoglobin (Bld) [Mass/Vol] 11.4 g/dL Low 14.0-18.0 [facility] Laboratory - Chemistry and C hemistry - challengeon 10-23-2023 Albumin [Mass/Vol] 2.8 g/dL Low 3.4-5.0 [facility] ALP [Catalytic activity/Vol] 98 U/L 46-116 [facility] ALT [Catalytic activity/Vol] 30 U/L 16-63 [facility] AST [Catalytic activity/Vol] 39 U/L High 15-37 [facility] Bilirubin [Mass/Vol] 0.8 mg/dL 0.2-1.0 [facility] Calcium [Mass/Vol] 8.8 mg/dL 8.5-10.1 [facility] Chloride [Moles/Vol] 104 mmol/L 98-107 [facility] CO2 [Moles/Vol] 31.0 mmol/L 21.0-32.0 [facility] Creatinine [Mass/Vol] 0.82 mg/dL 0.70-1.30 [facility] GFR/1.73 sq M.predicted MDRD (S/P/Bld) [Vol rate/Area] mL/min/{1.73_m2} >=60 [facility] Glucose [Mass/Vol] 91 mg/dL 74-106 [facility] Potassium [Moles/Vol] 4.3 mmol/L 3.5-5.1 [facility] Protein [Mass/Vol] 7.7 g/dL 6.4-8.2 [facility] Sodium [Moles/Vol] 140 mmol/L 136-145 [facility] Urea nitrogen [Mass/Vol] 23.0 mg/dL High 7.0-18.0 [facility] Urea nitrogen/Creatinine [Mass ratio] 28.0 mg/mg [facility] Laboratory - Hematology and Cell countson 10-23-2023 Immature granulocytes/100 WBC (Bld) 0.2 % 0.0-0.5 [facility] Leukocytes [#/volume] correc александр for nucleated erythrocytes in Blood by Automated counon 10-23-2023 WBC corrected for nucl RBC Auto (Bld) [#/Vol] 6.1 10 3/uL 4.0-11.0 [facility] Lymphocytes Auto (Bld) [#/Vo l]on 10-23-2023 Lymphocytes (Bld) [#/Vol] 1.8 10 3/uL 1.2-3.8 [facility] Lymphocytes/100 WBC Auto (Bl d)on 10-23-2023 Lymphocytes/100 WBC (Bld) 28.7 % 20.5-60.0 [facility] MCH Auto (RBC) [Entitic mass ]on 10-23-2023 MCH (RBC) [Entitic mass] 30.0 pg 25.9-34.0 [facility] MCHC Auto (RBC) [Mass/Vol]on 10-23-2023 MCHC (RBC) [Mass/Vol] 31.8 g/dL 29.9-35.2 [facility] MCV Auto (RBC) [Entitic vol] on 10-23-2023 MCV (RBC) [Entitic vol] 94.5 fL High 80.0-94.0 [facility] Monocytes Auto (Bld) [#/Vol] on 10-23-2023 Monocytes (Bld) [#/Vol] 0.3 10 3/uL 0.3-0.8 [facility] Monocytes/100 WBC Auto (Bld) on 10-23-2023 Monocytes/100 WBC (Bld) 5.6 % 1.7-12.0 [facility] Neutrophils Auto (Bld) [#/Vo l]on 10-23-2023 Neutrophils (Bld) [#/Vol] 3.7 10 3/uL 1.4-6.5 [facility] Neutrophils/100 WBC Auto (Bl d)on 10-23-2023 Neutrophils/100 WBC (Bld) 60.6 % 43.0-75.0 [facility] No Panel Informationon 10-22 Eosinophils # (Auto) 0.3 10 3/uL 0.0-0.7 [facility] Immature Granulocyte # (Auto) 0.01 10 3/uL 0.00-0.03 [facility] Platelet mean volume Auto (B ld) [Entitic vol]on 10-23-2023 Platelet mean volume (Bld) [Entitic vol] 9.8 fL 9.5-13.5 [facility] Platelets Auto (Bld) [#/Vol] on 10-23-2023 Platelets (Bld) [#/Vol] 188 10 3/uL 150-450 [facility] RBC Auto (Bld) [#/Vol]on RBC (Bld) [#/Vol] 3.80 10 6/uL Low 4.70-6.10 [facility] Serum or plasma albumin/glob ulin mass ratioon 10-23-2023 Albumin/Globulin [Mass ratio] 0.6 {ratio} [facility] Serum or plasma anion gap de terminationon 10-23-2023 Anion gap [Moles/Vol] 9.3 mmol/L [facility] Basic Metabolic Profon 09-01 Anion gap [Moles/Vol] 6 mmol/L Low 9-16 [facility] Comment on above: Performed By: #### B MP, TROPI #### [facility] [address] [place], [place] [id number] Rickshaw Driver: Ramsey Rodriguez MD Calcium [Mass/Vol] 8.7 mg/dL Normal 8.6-10.4 [facility] Comment on above: Performed By: #### B MP, TROPI #### [facility] [address] [place], [place] [id number] Rickshaw Driver: Ramsey Rodriguez MD Chloride [Moles/Vol] 102 mmol/L Normal 98-[address] [facility] Comment on above: Performed By: #### B EDWARD, TROPI #### [facility] [address] [place] [address] Rickshaw Driver: Ramsey Rodriguez MD CO2 [Moles/Vol] 32 mmol/L High 20-31 [facility] Comment on above: Performed By: #### B EDWARD, TROPI #### [facility] [place] [address] Rickshaw Driver: Ramsey Rodriguez MD Creatinine [Mass/Vol] 0.5 mg/dL Low 0.70-1.20 [facility] Comment on above: Performed By: #### B EDWARD, TROPI #### [facility] [employer] [address] [place] [phone] Rickshaw Driver: Ramsey Rodriguez MD GFR/1.73 sq M.predicted among non-blacks MDRD (S/P/Bld) [Vol rate/Area] mL/min/{1.73_m2} Normal >60 [facility] Comment on above: Result Comment: These [...] B EDWARD, TROPI #### [facility] [address] [place] [address] Rickshaw Driver: Ramsey Rodriguez MD Glucose [Mass/Vol] 93 mg/dL Normal 74-99 [facility] Comment on above: Performed By: #### B EDWARD, TROPI #### [facility] [place] [address] Rickshaw Driver: Ramsey Rodriguez MD Potassium [Moles/Vol] 3.7 mmol/L Normal 3.7-5.3 [facility] Comment on above: Performed By: #### KAITLYNN Camarena MP #### [address] [address] Rickshaw Driver: Ramsey Rodriguez MD Sodium [Moles/Vol] 140 mmol/L Normal 136-145 [facility] Comment on above: Performed By: #### B EDWARD TROPI #### [facility] [employer] [address] [place] [phone] Rickshaw Driver: Ramsey Rodriguez MD Urea nitrogen [Mass/Vol] 14 mg/dL Normal 8-23 [facility] Comment on above: Performed By: #### B KAITLYNN LEON #### [address] [address] Rickshaw Driver: Ramsey Rodriguez MD CBC with Diffon 09-02-2023 Abs. Basophil 0.03 k/uL Normal 0.00-0.20 [facility] Comment on above: Performed By: #### KAITLYNN Camarena MP #### [address] [address] Rickshaw Driver: Ramsey Rodriguez MD Abs.Imm.Granulocyte 0.04 k/uL Normal 0.00-0.30 [facility] Comment on above: Performed By: #### Nicol LEON TROPI #### [facility] [employer] [address] [place] [phone] Rickshaw Driver: Ramsey Rodriguez MD Abs.Neutrophil (Seg) 4.12 k/uL Normal 1.50-8.[address] [facility] Comment on above: Performed By: #### Nicol LEON TROPI #### [facility] [employer] [address] [place] [phone] Rickshaw Driver: Ramsey Rodriguez MD Basophils/100 WBC (Bld) 1 % Normal 0-2 [facility] Comment on above: Performed By: #### B EDWARD, TROPI #### [address] [address] Rickshaw Driver: Ramsey Rodriguez MD Eosinophils (Bld) [#/Vol] 0.34 10*3/uL Normal 0.00-0.44 [facility] Comment on above: Performed By: #### B EDWARD, TROPI #### [facility] [employer] [address] [place] [phone] Rickshaw Driver: Ramsey Rodriguez MD Eosinophils/100 WBC (Bld) 6 % High 1-4 [facility] Comment on above: Performed By: #### B EDWARD, TROPI #### [address] [address] Rickshaw Driver: Ramsey Rodriguez MD Erythrocyte distribution width (RBC) [Ratio] 16.0 % High 11.8-14.4 [facility] Comment on above: Performed By: #### B EDWARD, TROPI #### [address] [address] Rickshaw Driver: Ramsey Rodriguez MD Hematocrit (Bld) [Volume fraction] 33.4 % Low 40.7-50.3 [facility] Comment on above: Performed By: #### B EDWARD, TROPI #### [address] [address] Rickshaw Driver: Ramsey Rodriguez MD Hemoglobin (Bld) [Mass/Vol] 10.6 g/dL Low 13.0-17.0 [facility] Comment on above: Performed By: #### B EDWARD, TROPI #### [address] [address] Rickshaw Driver: Ramsey Rodriguez MD Immature granulocytes/100 WBC (Bld) 1 % High 0 [facility] Comment on above: Performed By: #### B EDWARD, TROPI #### [facility] [address] [place] [phone] Rickshaw Driver: Ramsey Rodriguez MD Lymphocytes (Bld) [#/Vol] 0.96 10*3/uL Low 1.10-3.70 [facility] Comment on above: Performed By: #### B MP, TROPI #### [facility] [address] [place] [address] Rickshaw Driver: Ramsey Rodriguez MD Lymphocytes/100 WBC (Bld) 17 % Low 24-43 [facility] Comment on above: Performed By: #### B MP, TROPI #### [place] [address] Rickshaw Driver: Ramsey Rodriguez MD MCH (RBC) [Entitic mass] 30.5 pg Normal 25.2-33.5 [facility] Comment on above: Performed By: #### B EDWARD, TROPI #### [place] [address] Rickshaw Driver: Ramsey Rodriguez MD MCHC (RBC) [Mass/Vol] 31.7 g/dL Normal 28.4-34.8 [facility] Comment on above: Performed By: #### B MP, TROPI #### [facility] [employer] [address] [place] [address] Rickshaw Driver: Ramsey Rodriguez MD MCV (RBC) [Entitic vol] 96.0 fL Normal 82.6-102.9 [facility] Comment on above: Performed By: #### B MP, TROPI #### [address] [address] Rickshaw Driver: Ramsey Rodriugez MD Monocytes (Bld) [#/Vol] 0.33 10*3/uL Normal 0.10-1.20 [facility] Comment on above: Performed By: #### B MP, TROPI #### [facility] [address] [place] [phone] Rickshaw Driver: Ramsey Rodriguez MD Monocytes/100 WBC (Bld) 6 % Normal 3-12 [facility] Comment on above: Performed By: #### B EDWARD, TROPI #### [address] [address] Rickshaw Driver: Ramsey Rodriguez MD Neutrophil (Seg) 69 % High 36-65 [facility] Comment on above: Performed By: #### B MP, TROPI #### [address] [address] Rickshaw Driver: Ramsey Rodriguez MD NRBC Automated 0.0 per 100 WBC Normal 0.0 [facility] Comment on above: Performed By: #### B EDWARD, TROPI #### [address] [address] Rickshaw Driver: Ramsey Rodriguez MD Platelet mean volume (Bld) [Entitic vol] 10.0 fL Normal 8.1-13.5 [facility] Comment on above: Performed By: #### B EDWARD TROPI #### [address] [address] Rickshaw Driver: Ramsey Rodriguez MD Platelets (Bld) [#/Vol] 190 10*3/uL Normal 138-453 [facility] Comment on above: Performed By: #### B EDWARD, TROPI #### [address] [address] Rickshaw Driver: Ramsey Rodriguez MD RBC (Bld) [#/Vol] 3.48 10*6/uL Low 4.21-5.77 [facility] Comment on above: Performed By: #### B EDWARD, TROPI #### [address] [address] Rickshaw Driver: Ramsey Rodriguez MD RBC morphology finding Nom (Bld) ANISOCYTOSIS PRESENT Normal [facility] Comment on above: Performed By: #### B MP, TROPI #### [address] [address] Rickshaw Driver: Ramsey Rodriguez MD WBC (Bld) [#/Vol] 5.8 10*3/uL Normal 3.5-11.3 [facility] Comment on above: Performed By: #### B MP, TROPI #### [facility] [address] [place] [phone] Rickshaw Driver: Ramsey Rodriguez MD Heparin Anti-Xaon 09-02-2023 Heparin Anti-Xa <0.10 Normal [facility] Comment on above: Performed By: #### B MP, TROPI #### [address] [address] Rickshaw Driver: Ramsey Rodriguez MD Basic Metabolic Profon 08-31 Anion gap [Moles/Vol] 7 mmol/L Low 9-16 [facility] Comment on above: Performed By: #### B MP, CDP, HEPXA #### [address] [address] Rickshaw Driver: Ramsey Rodriguez MD Calcium [Mass/Vol] 8.6 mg/dL Normal 8.6-10.4 [facility] Comment on above: Performed By: #### B MP, CDP, HEPXA #### [facility] [address] [place] [address] Rickshaw Driver: Ramsey Rodriguez MD Chloride [Moles/Vol] 102 mmol/L Normal 98-[address] [facility] Comment on above: Performed By: #### B MP, CDP, HEPXA #### [facility] [address] [place] [address] Rickshaw Driver: Ramsey Rodriguez MD CO2 [Moles/Vol] 29 mmol/L Normal 20-31 [facility] Comment on above: Performed By: #### B MP, CDP, HEPXA #### [facility] [place] [address] Rickshaw Driver: Ramsey Rodriguez MD Creatinine [Mass/Vol] 0.6 mg/dL Low 0.70-1.20 [facility] Comment on above: Performed By: #### B MP CDP, HEPXA #### [facility] [address] [place] [address] Rickshaw Driver: Ramsey Rodriguez MD GFR/1.73 sq M.predicted among non-blacks MDRD (S/P/Bld) [Vol rate/Area] mL/min/{1.73_m2} Normal >60 [facility] Comment on above: Result Comment: These [...] By: #### B FABIANO LEON, HEPXA #### [facility] [address] [place] [phone] Rickshaw Driver: Ramsey Rodriguez MD Glucose [Mass/Vol] 98 mg/dL Normal 74-99 [facility] Comment on above: Performed By: #### B FABIANO LEON, HEPXA #### [facility] [address] [place] [address] Rickshaw Driver: Ramsey Rodriguez MD Potassium [Moles/Vol] 4.0 mmol/L Normal 3.7-5.3 [facility] Comment on above: Performed By: #### B EDWARD CDP, HEPXA #### [facility] [address] [place] [address] Rickshaw Driver: Ramsey Rodriguez MD Sodium [Moles/Vol] 138 mmol/L Normal 136-145 [facility] Comment on above: Performed By: #### B MP, CDP, HEPXA #### [address] [address] Rickshaw Driver: Ramsey Rodriguez MD Urea nitrogen [Mass/Vol] 15 mg/dL Normal 8-23 [facility] Comment on above: Performed By: #### B MP, CDP, HEPXA #### [place] [address] Rickshaw Driver: Ramsey Rodriguez MD CBC with Diffon 09-01-2023 Abs. Basophil 0.03 k/uL Normal 0.00-0.20 [facility] Comment on above: Performed By: #### B MP, CDP, HEPXA #### [place] [address] Rickshaw Driver: Ramsey Rodriguez MD Abs.Imm.Granulocyte <0.03 Normal 0.00-0.30 [facility] Comment on above: Performed By: #### B MP, CDP, HEPXA #### [place] [address] Rickshaw Driver: Ramsey Rodriguez MD Abs.Neutrophil (Seg) 5.05 k/uL Normal 1.50-8.[address] [facility] Comment on above: Performed By: #### B MP, CDP, HEPXA #### [facility] [address] [place] [address] Rickshaw Driver: Ramsey Rodriguez MD Basophils/100 WBC (Bld) 0 % Normal 0-2 [facility] Comment on above: Performed By: #### B MP, CDP, HEPXA #### [facility] [address] [place] [address] Rickshaw Driver: Ramsey Rodriguez MD Eosinophils (Bld) [#/Vol] 0.30 10*3/uL Normal 0.00-0.44 [facility] Comment on above: Performed By: #### B MP, CDP, HEPXA #### [facility] [address] [place] [address] Rickshaw Driver: Ramsey Rodriguez MD Eosinophils/100 WBC (Bld) 4 % Normal 1-4 [facility] Comment on above: Performed By: #### B MP, CDP, HEPXA #### [address] [address] Rickshaw Driver: Ramsey Rodriguez MD Erythrocyte distribution width (RBC) [Ratio] 16.0 % High 11.8-14.4 [facility] Comment on above: Performed By: #### B MP, CDP, HEPXA #### [facility] [address] [place] [phone] Rickshaw Driver: Ramsey Rodriguez MD Hematocrit (Bld) [Volume fraction] 34.5 % Low 40.7-50.3 [facility] Comment on above: Performed By: #### B MP, CDP, HEPXA #### [address] [address] Rickshaw Driver: Ramsey Rodriguez MD Hemoglobin (Bld) [Mass/Vol] 10.9 g/dL Low 13.0-17.0 [facility] Comment on above: Performed By: #### B MP, CDP, HEPXA #### [facility] [address] [place] [address] Rickshaw Driver: Ramsey Rodriguez MD Immature granulocytes/100 WBC (Bld) 0 % Normal 0 [facility] Comment on above: Performed By: #### B MP, CDP, HEPXA #### [facility] [address] [place] [address] Rickshaw Driver: Ramsey Rodriguez MD Lymphocytes (Bld) [#/Vol] 2.11 10*3/uL Normal 1.10-3.70 [facility] Comment on above: Performed By: #### B MP, CDP, HEPXA #### [address] [address] Rickshaw Driver: Ramsey Rodriguez MD Lymphocytes/100 WBC (Bld) 27 % Normal 24-43 [facility] Comment on above: Performed By: #### B MP, CDP, HEPXA #### [address] [address] Rickshaw Driver: Ramsey Rodriguez MD MCH (RBC) [Entitic mass] 30.9 pg Normal 25.2-33.5 [facility] Comment on above: Performed By: #### B MP, CDP, HEPXA #### [address] [address] Rickshaw Driver: Ramsey Rodriguez MD MCHC (RBC) [Mass/Vol] 31.6 g/dL Normal 28.4-34.8 [facility] Comment on above: Performed By: #### B MP, CDP, HEPXA #### [address] [address] Rickshaw Driver: Ramsey Rodriguez MD MCV (RBC) [Entitic vol] 97.7 fL Normal 82.6-102.9 [facility] Comment on above: Performed By: #### B MP, CDP, HEPXA #### [address] [address] Rickshaw Driver: Ramsey Rodriguez MD Monocytes (Bld) [#/Vol] 0.39 10*3/uL Normal 0.10-1.20 [facility] Comment on above: Performed By: #### B MP, CDP, HEPXA #### [address] [address] Rickshaw Driver: Ramsey Rodriguez MD Monocytes/100 WBC (Bld) 5 % Normal 3-12 [facility] Comment on above: Performed By: #### B MP, CDP, HEPXA #### [address] [address] Rickshaw Driver: Ramsey Rodriguez MD Neutrophil (Seg) 64 % Normal 36-65 [facility] Comment on above: Performed By: #### B MP, CDP, HEPXA #### [address] [address] Rickshaw Driver: Ramsey Rodriguez MD NRBC Automated 0.0 per 100 WBC Normal 0.0 [facility] Comment on above: Performed By: #### B MP, CDP, HEPXA #### [address] [address] Rickshaw Driver: Ramsey Rodriguez MD Platelet mean volume (Bld) [Entitic vol] 10.5 fL Normal 8.1-13.5 [facility] Comment on above: Performed By: #### B MP, CDP, HEPXA #### [address] [address] Rickshaw Driver: Ramsey Rodriguez MD Platelets (Bld) [#/Vol] 188 10*3/uL Normal 138-453 [facility] Comment on above: Performed By: #### B MP, CDP, HEPXA #### [address] [address] Rickshaw Driver: Ramsey Rodriguez MD RBC (Bld) [#/Vol] 3.53 10*6/uL Low 4.21-5.77 [facility] Comment on above: Performed By: #### B MP, CDP, HEPXA #### [address] [address] Rickshaw Driver: Ramsey Rodriguez MD RBC morphology finding Nom (Bld) ANISOCYTOSIS PRESENT Normal [facility] Comment on above: Performed By: #### B MP, CDP, HEPXA #### [address] [address] Rickshaw Driver: Ramsey Rodriguez MD WBC (Bld) [#/Vol] 7.9 10*3/uL Normal 3.5-11.3 [facility] Comment on above: Performed By: #### B MP, CDP, HEPXA #### [facility] [address] [place] [address] Rickshaw Driver: Ramsey Rodriguez MD Heparin Anti-Xaon 09-01-2023 Heparin Anti-Xa 0.43 IU/L Normal [facility] Comment on above: Performed By: #### B MP, CDP, HEPXA #### [address] [address] Rickshaw Driver: Ramsey Rodriguez MD Basic Metabolic Profon 08-30 Anion gap [Moles/Vol] 8 mmol/L Low 9-16 [facility] Comment on above: Performed By: #### B MP, CDP, HEPXA #### [facility] [address] [place] [address] Rickshaw Driver: Ramsey Rodriguez MD Calcium [Mass/Vol] 8.2 mg/dL Low 8.6-10.4 [facility] Comment on above: Performed By: #### B MP, CDP, HEPXA #### [facility] [address] [place] [address] Rickshaw Driver: Ramsey Rodriguez MD Chloride [Moles/Vol] 103 mmol/L Normal 98-[address] [facility] Comment on above: Performed By: #### B MP, CDP, HEPXA #### [facility] [address] [place] [address] Rickshaw Driver: Ramsey Rodriguez MD CO2 [Moles/Vol] 28 mmol/L Normal 20-31 [facility] Comment on above: Performed By: #### B MP, CDP, HEPXA #### [facility] [address] [place] [address] Rickshaw Driver: Ramsey Rodriguez MD Creatinine [Mass/Vol] 0.6 mg/dL Low 0.70-1.20 [facility] Comment on above: Performed By: #### B FABIANO LEON, HEPXA #### [facility] [address] [place] [address] Rickshaw Driver: Ramsey Rodriguez MD GFR/1.73 sq M.predicted among non-blacks MDRD (S/P/Bld) [Vol rate/Area] mL/min/{1.73_m2} Normal >60 [facility] Comment on above: Result Comment: These [...] #### B FABIANO LEON, HEPXA #### [facility] [address] [place] [address] Rickshaw Driver: Ramsey Rodriguez MD Glucose [Mass/Vol] 104 mg/dL High 74-99 [facility] Comment on above: Performed By: #### B FABIANO LEON, HEPXA #### [facility] [address] [place] [address] Rickshaw Driver: Ramsey Rodriguez MD Potassium [Moles/Vol] 3.5 mmol/L Low 3.7-5.3 [facility] Comment on above: Performed By: #### B FABIANO LEON, HEPXA #### [facility] [address] [place] [address] Rickshaw Driver: Ramsey Rodriguez MD Sodium [Moles/Vol] 139 mmol/L Normal 136-145 [facility] Comment on above: Performed By: #### B FABIANO LEON, HEPXA #### [facility] [address] [place] [address] [phone] Rickshaw Driver: Ramsey Rodriguez MD Urea nitrogen [Mass/Vol] 17 mg/dL Normal 8-23 [facility] Comment on above: Performed By: #### B MP, CDP, HEPXA #### [address] [address] Rickshaw Driver: Ramsey Rodriguez MD CBC with Diffon 08-31-2023 Abs. Basophil <0.03 Normal 0.00-0.20 [facility] Comment on above: Performed By: #### T ROPI #### [address] [address] Rickshaw Driver: Ramsey Rodriguez MD Abs.Imm.Granulocyte 0.03 k/uL Normal 0.00-0.30 [facility] Comment on above: Performed By: #### T ROPI #### [address] [address] Rickshaw Driver: Ramsey Rodriguez MD Abs.Neutrophil (Seg) 4.38 k/uL Normal 1.50-8.[address] [facility] Comment on above: Performed By: #### T ROPI #### [address] [address] Rickshaw Driver: Ramsey Rodriguez MD Basophils/100 WBC (Bld) 0 % Normal 0-2 [facility] Comment on above: Performed By: #### T ROPI #### [address] [address] Rickshaw Driver: Ramsey Rodriguez MD Eosinophils (Bld) [#/Vol] 0.21 10*3/uL Normal 0.00-0.44 [facility] Comment on above: Performed By: #### T ROPI #### [address] [address] Rickshaw Driver: Ramsey Rodriguez MD Eosinophils/100 WBC (Bld) 3 % Normal 1-4 [facility] Comment on above: Performed By: #### T ROPI #### [address] [address] Rickshaw Driver: Ramsey Rodriguez MD Erythrocyte distribution width (RBC) [Ratio] 15.9 % High 11.8-14.4 [facility] Comment on above: Performed By: #### T ROPI #### [address] [address] Rickshaw Driver: Ramsey Rodriguez MD Hematocrit (Bld) [Volume fraction] 33.3 % Low 40.7-50.3 [facility] Comment on above: Performed By: #### T ROPI #### [address] [address] Rickshaw Driver: Ramsey Rodriguez MD Hemoglobin (Bld) [Mass/Vol] 10.4 g/dL Low 13.0-17.0 [facility] Comment on above: Performed By: #### T ROPI #### [address] [address] Rickshaw Driver: Ramsey Rodriguez MD Immature granulocytes/100 WBC (Bld) 1 % High 0 [facility] Comment on above: Performed By: #### T ROPI #### [address] [address] Rickshaw Driver: Ramsey Rodriguez MD Lymphocytes (Bld) [#/Vol] 1.31 10*3/uL Normal 1.10-3.70 [facility] Comment on above: Performed By: #### T ROPI #### [address] [address] Rickshaw Driver: Ramsey Rodriguez MD Lymphocytes/100 WBC (Bld) 21 % Low 24-43 [facility] Comment on above: Performed By: #### T ROPI #### [address] [address] Rickshaw Driver: Ramsey Rodriguez MD MCH (RBC) [Entitic mass] 30.9 pg Normal 25.2-33.5 [facility] Comment on above: Performed By: #### T ROPI #### [address] [address] Rickshaw Driver: Ramsey Rodriguez MD MCHC (RBC) [Mass/Vol] 31.2 g/dL Normal 28.4-34.8 [facility] Comment on above: Performed By: #### T ROPI #### [address] [address] Rickshaw Driver: Ramsey Rodriguez MD MCV (RBC) [Entitic vol] 98.8 fL Normal 82.6-102.9 [facility] Comment on above: Performed By: #### T ROPI #### [address] [address] Rickshaw Driver: Ramsey Rodriguez MD Monocytes (Bld) [#/Vol] 0.31 10*3/uL Normal 0.10-1.20 [facility] Comment on above: Performed By: #### T ROPI #### [address] [address] Rickshaw Driver: Ramsey Rodriguez MD Monocytes/100 WBC (Bld) 5 % Normal 3-12 [facility] Comment on above: Performed By: #### T ROPI #### [address] [address] Rickshaw Driver: Ramsey Rodriguez MD Neutrophil (Seg) 70 % High 36-65 [facility] Comment on above: Performed By: #### T ROPI #### [address] [address] Rickshaw Driver: Ramsey Rodriguez MD NRBC Automated 0.0 per 100 WBC Normal 0.0 [facility] Comment on above: Performed By: #### T ROPI #### [address] [address] Rickshaw Driver: Ramsey Rodriguez MD Platelet mean volume (Bld) [Entitic vol] 10.4 fL Normal 8.1-13.5 [facility] Comment on above: Performed By: #### T ROPI #### [address] [address] Rickshaw Driver: Ramsey Rodriguez MD Platelets (Bld) [#/Vol] 160 10*3/uL Normal 138-453 [facility] Comment on above: Performed By: #### T ROPI #### [address] [address] Rickshaw Driver: Ramsey Rodriguez MD RBC (Bld) [#/Vol] 3.37 10*6/uL Low 4.21-5.77 [facility] Comment on above: Performed By: #### T ROPI #### [address] [address] Rickshaw Driver: Ramsey Rodriguez MD RBC morphology finding Nom (Bld) ANISOCYTOSIS PRESENT Normal [facility] Comment on above: Performed By: #### T ROPI #### [address] [address] Rickshaw Driver: Ramsey Rodriguez MD WBC (Bld) [#/Vol] 6.3 10*3/uL Normal 3.5-11.3 [facility] Comment on above: Performed By: #### T ROPI #### [address] [address] Rickshaw Driver: Ramsey Rodriguez MD Heparin Anti-Xaon 08-31-2023 Heparin Anti-Xa 0.39 IU/L Normal [facility] Comment on above: Performed By: #### H EPXA, CBC, PTT, PT #### [facility] [place] [address] Rickshaw Driver: Ramsey Rodriguez MD Basic Metabolic Profon 08-29 Anion gap [Moles/Vol] 7 mmol/L Low 9-16 [facility] Comment on above: Performed By: #### B MP, CDP, HEPXA #### [address] [address] Rickshaw Driver: Ramsey Rodriguez MD Calcium [Mass/Vol] 8.2 mg/dL Low 8.6-10.4 [facility] Comment on above: Performed By: #### B MP, CDP, HEPXA #### [facility] [address] [place] [address] Rickshaw Driver: Ramsey Rodriguez MD Chloride [Moles/Vol] 104 mmol/L Normal 98-[address] [facility] Comment on above: Performed By: #### B MP, CDP, HEPXA #### [facility] [address] [place] [address] Rickshaw Driver: Ramsey Rodriguez MD CO2 [Moles/Vol] 29 mmol/L Normal 20-31 [facility] Comment on above: Performed By: #### B MP, CDP, HEPXA #### [facility] [address] [place] [address] Rickshaw Driver: Ramsey Rodriguez MD Creatinine [Mass/Vol] 0.7 mg/dL Normal 0.70-1.20 [facility] Comment on above: Performed By: #### B MP, CDP, HEPXA #### [facility] [address] [place] [address] Rickshaw Driver: Ramsey Rodriguez MD GFR/1.73 sq M.predicted among non-blacks MDRD (S/P/Bld) [Vol rate/Area] mL/min/{1.73_m2} Normal >60 [facility] Comment on above: Result Comment: These [...] By: #### B FABIANO LEON, HEPXA #### [facility] [address] [place] [address] Rickshaw Driver: Ramsey Rodriguez MD Glucose [Mass/Vol] 94 mg/dL Normal 74-99 [facility] Comment on above: Performed By: #### B FABIANO LEON, HEPXA #### [facility] [address] [place] [address] Rickshaw Driver: Ramsey Rodriguez MD Potassium [Moles/Vol] 3.6 mmol/L Low 3.7-5.3 [facility] Comment on above: Performed By: #### B FABIANO LEON, HEPXA #### [facility] [address] [place] [address] Rickshaw Driver: Ramsey Rodriguez MD Sodium [Moles/Vol] 140 mmol/L Normal 136-145 [facility] Comment on above: Performed By: #### B FABIANO LEON, HEPXA #### [facility] [address] [place] [address] Rickshaw Driver: Ramsey Rodriguez MD Urea nitrogen [Mass/Vol] 14 mg/dL Normal 8-23 [facility] Comment on above: Performed By: #### B FABIANO LEON, HEPXA #### [facility] [address] [place] [address] Rickshaw Driver: Ramsey Rodriguez MD CBC with Diffon 08-30-2023 Abs. Basophil <0.03 Normal 0.00-0.20 [facility] Comment on above: Performed By: #### B EDWARD CDP, HEPXA #### [place] [place] [address] Rickshaw Driver: Ramsey Rodriguez MD Abs.Imm.Granulocyte 0.03 k/uL Normal 0.00-0.30 [facility] Comment on above: Performed By: #### B MP, CDP, HEPXA #### [address] [address] Rickshaw Driver: Ramsey Rodriguez MD Abs.Neutrophil (Seg) 3.72 k/uL Normal 1.50-8.[address] [facility] Comment on above: Performed By: #### B MP, CDP, HEPXA #### [address] [address] Rickshaw Driver: Ramsey Rodriguez MD Basophils/100 WBC (Bld) 0 % Normal 0-2 [facility] Comment on above: Performed By: #### B MP, CDP, HEPXA #### [address] [address] Rickshaw Driver: Ramsey Rodriguez MD Eosinophils (Bld) [#/Vol] 0.22 10*3/uL Normal 0.00-0.44 [facility] Comment on above: Performed By: #### B MP, CDP, HEPXA #### [address] [address] Rickshaw Driver: Ramsey Rodriguez MD Eosinophils/100 WBC (Bld) 4 % Normal 1-4 [facility] Comment on above: Performed By: #### B MP, CDP, HEPXA #### [facility] [address] [place] [address] Rickshaw Driver: Ramsey Rodriguez MD Erythrocyte distribution width (RBC) [Ratio] 15.8 % High 11.8-14.4 [facility] Comment on above: Performed By: #### B MP, CDP, HEPXA #### [facility] [address] Rickshaw Driver: Ramsey Rodriguez MD Hematocrit (Bld) [Volume fraction] 31.1 % Low 40.7-50.3 [facility] Comment on above: Performed By: #### B MP, CDP, HEPXA #### [address] [address] Rickshaw Driver: Ramsey Rodriguez MD Hemoglobin (Bld) [Mass/Vol] 10.1 g/dL Low 13.0-17.0 [facility] Comment on above: Performed By: #### B MP, CDP, HEPXA #### [address] [address] Rickshaw Driver: Ramsey Rodriguez MD Immature granulocytes/100 WBC (Bld) 1 % High 0 [facility] Comment on above: Performed By: #### B MP, CDP, HEPXA #### [address] [address] Rickshaw Driver: Ramsey Rodriguez MD Lymphocytes (Bld) [#/Vol] 1.25 10*3/uL Normal 1.10-3.70 [facility] Comment on above: Performed By: #### B MP, CDP, HEPXA #### [address] [address] Rickshaw Driver: Ramsey Rodriguez MD Lymphocytes/100 WBC (Bld) 22 % Low 24-43 [facility] Comment on above: Performed By: #### B MP, CDP, HEPXA #### [address] [address] Rickshaw Driver: Ramsey Rodriguez MD MCH (RBC) [Entitic mass] 30.6 pg Normal 25.2-33.5 [facility] Comment on above: Performed By: #### B MP, CDP, HEPXA #### [facility] [address] [place] [address] Rickshaw Driver: Ramsey Rodriguez MD MCHC (RBC) [Mass/Vol] 32.5 g/dL Normal 28.4-34.8 [facility] Comment on above: Performed By: #### B MP, CDP, HEPXA #### [address] [address] Rickshaw Driver: Ramsey Rodriguez MD MCV (RBC) [Entitic vol] 94.2 fL Normal 82.6-102.9 [facility] Comment on above: Performed By: #### B MP, CDP, HEPXA #### [address] [address] [address] Rickshaw Driver: Ramsey Rodriguez MD Monocytes (Bld) [#/Vol] 0.35 10*3/uL Normal 0.10-1.20 [facility] Comment on above: Performed By: #### B MP, CDP, HEPXA #### [address] [address] Rickshaw Driver: Ramsey Rodriguez MD Monocytes/100 WBC (Bld) 6 % Normal 3-12 [facility] Comment on above: Performed By: #### B MP, CDP, HEPXA #### [address] [address] Rickshaw Driver: Ramsey Rodriguez MD Neutrophil (Seg) 67 % High 36-65 [facility] Comment on above: Performed By: #### B MP, CDP, HEPXA #### [address] [address] Rickshaw Driver: Ramsey Rodriguez MD NRBC Automated 0.0 per 100 WBC Normal 0.0 [facility] Comment on above: Performed By: #### B MP, CDP, HEPXA #### [facility] [address] [place] [address] Rickshaw Driver: Ramsey Rodriguez MD Platelet mean volume (Bld) [Entitic vol] 10.2 fL Normal 8.1-13.5 [facility] Comment on above: Performed By: #### B MP, CDP, HEPXA #### [address] [address] Rickshaw Driver: Ramsey Rodriguez MD Platelets (Bld) [#/Vol] 158 10*3/uL Normal 138-453 [facility] Comment on above: Performed By: #### B MP, CDP, HEPXA #### [address] [address] Rickshaw Driver: Ramsey Rodriguez MD RBC (Bld) [#/Vol] 3.30 10*6/uL Low 4.21-5.77 [facility] Comment on above: Performed By: #### B MP, CDP, HEPXA #### [address] [address] Rickshaw Driver: Ramsey Rodriguez MD RBC morphology finding Nom (Bld) ANISOCYTOSIS PRESENT Normal [facility] Comment on above: Performed By: #### B MP, CDP, HEPXA #### [address] [address] Rickshaw Driver: Ramsey Rodriguez MD WBC (Bld) [#/Vol] 5.6 10*3/uL Normal 3.5-11.3 [facility] Comment on above: Performed By: #### B MP, CDP, HEPXA #### [address] [address] Rickshaw Driver: Ramsey Rodriguez MD Heparin Anti-Xaon 08-30-2023 Heparin Anti-Xa 0.43 IU/L Normal [facility] Comment on above: Performed By: #### H EPXA, CBC, PTT, PT #### [address] [address] Rickshaw Driver: Ramsey Rodriguez MD Heparin Anti-Xa 0.42 IU/L Normal [facility] Comment on above: Performed By: #### B FABIANO LEON, HEPXA #### [facility] [address] [place] [address] Rickshaw Driver: Ramsey Rodriguez MD Heparin Anti-Xa 0.27 IU/L Normal [facility] Comment on above: Performed By: #### B MP, CDP, HEPXA #### [facility] [address] [place] [address] Rickshaw Driver: Ramsey Rodriguez MD Troponinon 08-30-2023 Troponin, High Sens 138 ng/L Critically high 0-22 [facility] Comment on above: Result Comment: High Sensitivity Troponin values cannot be compared with other Troponin methodologies. Previous Alert Value Reported Performed By: #### B EDWARD CDP, HEPXA #### [address] [address] Rickshaw Driver: Ramsey Rodriguez MD Basic Metabolic Profon 08-28 Anion gap [Moles/Vol] 6 mmol/L Low 9-16 [facility] Comment on above: Performed By: #### B EDWARD CDP, HEPXA #### [facility] [address] [place] [address] Rickshaw Driver: Ramsey Rodriguez MD Calcium [Mass/Vol] 8.2 mg/dL Low 8.6-10.4 [facility] Comment on above: Performed By: #### B MP, CDP, HEPXA #### [facility] [address] [place] [address] Rickshaw Driver: Ramsey Rodriguez MD Chloride [Moles/Vol] 106 mmol/L Normal 98-[address] [facility] Comment on above: Performed By: #### B MP, CDP, HEPXA #### [facility] [address] [place] [address] Rickshaw Driver: Ramsey Rodriguez MD CO2 [Moles/Vol] 29 mmol/L Normal 20-31 [facility] Comment on above: Performed By: #### B EDWARD CDP, HEPXA #### [facility] [address] [place] [address] Rickshaw Driver: Ramsey Rodriguez MD Creatinine [Mass/Vol] 0.6 mg/dL Low 0.70-1.20 [facility] Comment on above: Performed By: #### B MP, CDP, HEPXA #### [facility] [address] [place] [address] Rickshaw Driver: Ramsey Rodriguez MD GFR/1.73 sq M.predicted among non-blacks MDRD (S/P/Bld) [Vol rate/Area] mL/min/{1.73_m2} Normal >60 [facility] Comment on above: Result Comment: These [...] By: #### B FABIANO LEON, HEPXA #### [facility] [address] [place] [address] Rickshaw Driver: Ramsey Rodriguez MD Glucose [Mass/Vol] 85 mg/dL Normal 74-99 [facility] Comment on above: Performed By: #### B EDWARD CDP, HEPXA #### [facility] [address] [place] [address] Rickshaw Driver: Ramsey Rodriguez MD Potassium [Moles/Vol] 3.9 mmol/L Normal 3.7-5.3 [facility] Comment on above: Performed By: #### B EDWARD, CDP, HEPXA #### [facility] [address] [place] [address] Rickshaw Driver: Ramsey Rodriguez MD Sodium [Moles/Vol] 141 mmol/L Normal 136-145 [facility] Comment on above: Performed By: #### B MP, CDP, HEPXA #### [address] [address] Rickshaw Driver: Ramsey Rodriguez MD Urea nitrogen [Mass/Vol] 9 mg/dL Normal 8-23 [facility] Comment on above: Performed By: #### B MP, CDP, HEPXA #### [address] [address] Rickshaw Driver: Ramsey Rodriguez MD CBC with Diffon 08-29-2023 Abs. Basophil <0.03 Normal 0.00-0.20 [facility] Comment on above: Performed By: #### B MP, CDP, HEPXA #### [address] [address] Rickshaw Driver: Ramsey Rodriguez MD Abs.Imm.Granulocyte <0.03 Normal 0.00-0.30 [facility] Comment on above: Performed By: #### B MP, CDP, HEPXA #### [address] [address] Rickshaw Driver: Ramsey Rodriguez MD Abs.Neutrophil (Seg) 3.04 k/uL Normal 1.50-8.[address] [facility] Comment on above: Performed By: #### B MP, CDP, HEPXA #### [address] [address] Rickshaw Driver: Ramsey Rodriguez MD Basophils/100 WBC (Bld) 0 % Normal 0-2 [facility] Comment on above: Performed By: #### B MP, CDP, HEPXA #### [facility] [address] [place] [address] Rickshaw Driver: Ramsey Rodriguez MD Eosinophils (Bld) [#/Vol] 0.28 10*3/uL Normal 0.00-0.44 [facility] Comment on above: Performed By: #### B MP, CDP, HEPXA #### [address] [address] Rickshaw Driver: Ramsey Rodriguez MD Eosinophils/100 WBC (Bld) 6 % High 1-4 [facility] Comment on above: Performed By: #### B MP, CDP, HEPXA #### [place] [address] Rickshaw Driver: Ramsey Rodriguez MD Erythrocyte distribution width (RBC) [Ratio] 15.7 % High 11.8-14.4 [facility] Comment on above: Performed By: #### B MP, CDP, HEPXA #### [place] [address] Rickshaw Driver: Ramsey Rodriguez MD Hematocrit (Bld) [Volume fraction] 32.4 % Low 40.7-50.3 [facility] Comment on above: Performed By: #### B MP, CDP, HEPXA #### [place] [address] Rickshaw Driver: Ramsey Rodriguez MD Hemoglobin (Bld) [Mass/Vol] 10.2 g/dL Low 13.0-17.0 [facility] Comment on above: Performed By: #### B MP, CDP, HEPXA #### [address] [address] Rickshaw Driver: Ramsey Rodriguez MD Immature granulocytes/100 WBC (Bld) 0 % Normal 0 [facility] Comment on above: Performed By: #### B MP, CDP, HEPXA #### [address] [address] Rickshaw Driver: Ramsey Rodriguez MD Lymphocytes (Bld) [#/Vol] 1.36 10*3/uL Normal 1.10-3.70 [facility] Comment on above: Performed By: #### B MP, CDP, HEPXA #### [address] [address] Rickshaw Driver: Ramsey Rodriguez MD Lymphocytes/100 WBC (Bld) 27 % Normal 24-43 [facility] Comment on above: Performed By: #### B MP, CDP, HEPXA #### [address] [address] Rickshaw Driver: Ramsey Rodriguez MD MCH (RBC) [Entitic mass] 30.8 pg Normal 25.2-33.5 [facility] Comment on above: Performed By: #### B MP, CDP, HEPXA #### [address] [address] Rickshaw Driver: Ramsey Rodriguez MD MCHC (RBC) [Mass/Vol] 31.5 g/dL Normal 28.4-34.8 [facility] Comment on above: Performed By: #### B MP, CDP, HEPXA #### [address] [address] Rickshaw Driver: Ramsey Rodriguez MD MCV (RBC) [Entitic vol] 97.9 fL Normal 82.6-102.9 [facility] Comment on above: Performed By: #### B MP, CDP, HEPXA #### [address] [address] Rickshaw Driver: Ramsey Rodriguez MD Monocytes (Bld) [#/Vol] 0.37 10*3/uL Normal 0.10-1.20 [facility] Comment on above: Performed By: #### B MP, CDP, HEPXA #### [address] [address] Rickshaw Driver: Ramsey Rodriguez MD Monocytes/100 WBC (Bld) 7 % Normal 3-12 [facility] Comment on above: Performed By: #### B MP, CDP, HEPXA #### [facility] [address] [place] [address] Rickshaw Driver: Ramsey Rodriguez MD Neutrophil (Seg) 60 % Normal 36-65 [facility] Comment on above: Performed By: #### B MP, CDP, HEPXA #### [facility] [address] [place] [address] Rickshaw Driver: Ramsey Rodriguez MD NRBC Automated 0.0 per 100 WBC Normal 0.0 [facility] Comment on above: Performed By: #### B MP, CDP, HEPXA #### [facility] [address] [place] [address] Rickshaw Driver: Ramsey Rodriguez MD Platelet mean volume (Bld) [Entitic vol] 10.4 fL Normal 8.1-13.5 [facility] Comment on above: Performed By: #### B MP, CDP, HEPXA #### [address] [address] Rickshaw Driver: Ramsey Rodriguez MD Platelets (Bld) [#/Vol] 144 10*3/uL Normal 138-453 [facility] Comment on above: Performed By: #### B MP, CDP, HEPXA #### [address] [address] Rickshaw Driver: Ramsey Rodriguez MD RBC (Bld) [#/Vol] 3.31 10*6/uL Low 4.21-5.77 [facility] Comment on above: Performed By: #### B MP, CDP, HEPXA #### [facility] [address] [place] [address] Rickshaw Driver: Ramsey Rodriguez MD RBC morphology finding Nom (Bld) ANISOCYTOSIS PRESENT Normal [facility] Comment on above: Performed By: #### B MP, CDP, HEPXA #### [facility] [address] [place] [address] Rickshaw Driver: Ramsey Rodriguez MD WBC (Bld) [#/Vol] 5.1 10*3/uL Normal 3.5-11.3 [facility] Comment on above: Performed By: #### B MP, CDP, HEPXA #### [address] [address] Rickshaw Driver: Ramsey Rodriguez MD Heparin Anti-Xaon 08-29-2023 Heparin Anti-Xa 0.35 IU/L Normal [facility] Comment on above: Performed By: #### H EPXA, CBC, PTT, PT #### [facility] [address] [place] [address] Rickshaw Driver: Ramsey Rodriguez MD Heparin Anti-Xa 0.38 IU/L Normal [facility] Comment on above: Performed By: #### B MP, TROPI #### [facility] [address] [place] [address] Rickshaw Driver: Ramsey Rodriguez MD Heparin Anti-Xa 0.40 IU/L Normal [facility] Comment on above: Performed By: #### B MP, CDP, HEPXA #### [facility] [address] [place] [address] Rickshaw Driver: Ramsey Rodriguez MD Magnesiumon 08-29-2023 Magnesium [Mass/Vol] 2.1 mg/dL Normal 1.6-2.[address] [facility] Comment on above: Performed By: #### B MP, CDP, HEPXA #### [facility] [address] [place] [address] Rickshaw Driver: Ramsey Rodriguez MD Phosphorus, Inorg.on 024 Phosphorus, Inorg. 2.7 mg/dL Normal 2.5-4.5 [facility] Comment on above: Performed By: #### B MP, CDP, HEPXA #### [facility] [place] [address] Rickshaw Driver: Ramsey Rodriguez MD Troponinon 08-29-2023 Troponin, High Sens 142 ng/L Critically high 0-22 [facility] Comment on above: Result Comment: High Sensitivity Troponin values cannot be compared with other Troponin methodologies. Previous Alert Value Reported Performed By: #### T ROPI #### [facility] [address] [place] [address] Rickshaw Driver: Ramsey Rodriguez MD Troponin, High Sens 159 ng/L Critically high 0-22 [facility] Comment on above: Result Comment: High Sensitivity Troponin values cannot be compared with other Troponin methodologies. Previous Alert Value Reported Performed By: #### B FABIANO LEON, HEPXA #### [facility] [address] [place] [address] Rickshaw Driver: Ramsey Rodriguez MD Troponin, High Sens 162 ng/L Critically high 0-22 [facility] Comment on above: Result Comment: High Sensitivity Troponin values cannot be compared with other Troponin methodologies. Previous Alert Value Reported Performed By: #### B FABIANO LEON, HEPXA #### [facility] [address] [place] [address] Rickshaw Driver: Ramsey Rodriguez MD APTTon 08-28-2023 aPTT Coag (Bld) [Time] 28.4 s Normal 23.0-36.5 [facility] Comment on above: Result Comment: IV Heparin Therapy Range: 66.0-92.0 sec Performed By: #### H EPXA, CBC, PTT, PT #### [facility] [address] [place] [address] Rickshaw Driver: Ramsey Rodriguez MD Basic Metabolic Profon 08-27 Anion gap [Moles/Vol] 8 mmol/L Low 9-16 [facility] Comment on above: Performed By: #### B MP, TROPI #### [facility] [address] [place] [address] Rickshaw Driver: Ramsey Rodriguez MD Calcium [Mass/Vol] 8.3 mg/dL Low 8.6-10.4 [facility] Comment on above: Performed By: #### B EDWARD, TROPI #### [facility] [address] [place] [address] Rickshaw Driver: Ramsey Rodriguez MD Chloride [Moles/Vol] 103 mmol/L Normal 98-[address] [facility] Comment on above: Performed By: #### B EDWARD, TROPI #### [facility] [address] [place] [address] Rickshaw Driver: Ramsey Rodriguez MD CO2 [Moles/Vol] 27 mmol/L Normal 20-31 [facility] Comment on above: Performed By: #### B EDWARD, TROPI #### [facility] [address] [place] [address] Rickshaw Driver: Ramsey Rodriguez MD Creatinine [Mass/Vol] 0.5 mg/dL Low 0.70-1.20 [facility] Comment on above: Performed By: #### B EDWARD, TROPI #### [facility] [address] [place] [address] Rickshaw Driver: Ramsey Rodriguez MD GFR/1.73 sq M.predicted among non-blacks MDRD (S/P/Bld) [Vol rate/Area] mL/min/{1.73_m2} Normal >60 [facility] Comment on above: Result Comment: These [...] By: #### B EDWARD, TROPI #### [facility] [address] [place] [address] Rickshaw Driver: Ramsey Rodriguez MD Glucose [Mass/Vol] 112 mg/dL High 74-99 [facility] Comment on above: Performed By: #### B EDWARD TROPI #### [facility] [address] [place] [address] Rickshaw Driver: Ramsey Rodriguez MD Potassium [Moles/Vol] 3.7 mmol/L Normal 3.7-5.3 [facility] Comment on above: Performed By: #### B EDWARD TROPI #### [facility] [address] [place] [address] Rickshaw Driver: Ramsey Rodriguez MD Sodium [Moles/Vol] 138 mmol/L Normal 136-145 [facility] Comment on above: Performed By: #### B EDWARD TROPI #### [facility] [address] [place] [address] Rickshaw Driver: Ramsey Rodriguez MD Urea nitrogen [Mass/Vol] 9 mg/dL Normal 8-23 [facility] Comment on above: Performed By: #### B EDWARD TROPI #### [facility] [address] [place] [address] Rickshaw Driver: Ramsey Rodriguez MD Anion gap [Moles/Vol] 8 mmol/L Low 9-16 [facility] Comment on above: Performed By: #### T ROPI #### [address] [address] Rickshaw Driver: Ramsey Rodriguez MD Chloride [Moles/Vol] 105 mmol/L Normal 98-[address] [facility] Comment on above: Performed By: #### T ROPI #### [facility] [address] [place] [address] Rickshaw Driver: Ramsey Rodriguez MD Potassium [Moles/Vol] 3.5 mmol/L Low 3.7-5.3 [facility] Comment on above: Performed By: #### T ROPI #### [address] [address] Rickshaw Driver: Ramsey Rodriguez MD Sodium [Moles/Vol] 139 mmol/L Normal 136-145 [facility] Comment on above: Performed By: #### T ROPI #### [address] [address] Rickshaw Driver: Ramsey Rodriguez MD Calcium [Mass/Vol] 7.9 mg/dL Low 8.6-10.4 [facility] Comment on above: Performed By: #### T ROPI #### [address] [address] Rickshaw Driver: Ramsey Rodriguez MD CO2 [Moles/Vol] 26 mmol/L Normal 20-31 [facility] Comment on above: Performed By: #### T ROPI #### [address] [address] Rickshaw Driver: Ramsey Rodriguez MD Creatinine [Mass/Vol] 0.5 mg/dL Low 0.70-1.20 [facility] Comment on above: Performed By: #### T ROPI #### [address] [address] Rickshaw Driver: Ramsey Rodriguez MD GFR/1.73 sq M.predicted among non-blacks MDRD (S/P/Bld) [Vol rate/Area] mL/min/{1.73_m2} Normal >60 [facility] Comment on above: Result Comment: These [...] secretion. Performed By: #### T ROPI #### [address] [address] Rickshaw Driver: Ramsey Rodriguez MD Glucose [Mass/Vol] 106 mg/dL High 74-99 [facility] Comment on above: Performed By: #### T ROPI #### [address] [address] Rickshaw Driver: Ramsey Rodriguez MD Urea nitrogen [Mass/Vol] 10 mg/dL Normal 8-23 [facility] Comment on above: Performed By: #### T ROPI #### [address] [address] Rickshaw Driver: Ramsey Rodriguez MD CBCon 08-28-2023 Erythrocyte distribution width (RBC) [Ratio] 15.6 % High 11.8-14.4 [facility] Comment on above: Performed By: #### H EPXA, CBC, PTT, PT #### [facility] [address] [place] [address] Rickshaw Driver: Ramsey Rodriguez MD Hematocrit (Bld) [Volume fraction] 34.1 % Low 40.7-50.3 [facility] Comment on above: Performed By: #### H EPXA, CBC, PTT, PT #### [facility] [address] [place] [address] Rickshaw Driver: Ramsey Rodriguez MD Hemoglobin (Bld) [Mass/Vol] 10.7 g/dL Low 13.0-17.0 [facility] Comment on above: Performed By: #### H EPXA, CBC, PTT, PT #### [facility] [address] [place] [address] Rickshaw Driver: Ramsey Rodriguez MD MCH (RBC) [Entitic mass] 30.5 pg Normal 25.2-33.5 [facility] Comment on above: Performed By: #### H EPXA, CBC, PTT, PT #### [address] [address] Rickshaw Driver: Ramsey Rodriguez MD MCHC (RBC) [Mass/Vol] 31.4 g/dL Normal 28.4-34.8 [facility] Comment on above: Performed By: #### H EPXA, CBC, PTT, PT #### [address] [address] Rickshaw Driver: Ramsey Rodriguez MD MCV (RBC) [Entitic vol] 97.2 fL Normal 82.6-102.9 [facility] Comment on above: Performed By: #### H EPXA, CBC, PTT, PT #### [address] [address] Rickshaw Driver: Ramsey Rodriguez MD NRBC Automated 0.0 per 100 WBC Normal 0.0 [facility] Comment on above: Performed By: #### H EPXA, CBC, PTT, PT #### [address] [address] Rickshaw Driver: Ramsey Rodriguez MD Platelet mean volume (Bld) [Entitic vol] 10.2 fL Normal 8.1-13.5 [facility] Comment on above: Performed By: #### H EPXA, CBC, PTT, PT #### [address] [address] Rickshaw Driver: Ramsey Rodriguez MD Platelets (Bld) [#/Vol] 166 10*3/uL Normal 138-453 [facility] Comment on above: Performed By: #### H EPXA, CBC, PTT, PT #### [address] [address] Rickshaw Driver: Ramsey Rodriguez MD RBC (Bld) [#/Vol] 3.51 10*6/uL Low 4.21-5.77 [facility] Comment on above: Performed By: #### H EPXA, CBC, PTT, PT #### [address] [address] Rickshaw Driver: Ramsey Rodriguez MD WBC (Bld) [#/Vol] 6.5 10*3/uL Normal 3.5-11.3 [facility] Comment on above: Performed By: #### H EPXA, CBC, PTT, PT #### [address] [address] Rickshaw Driver: Ramsey Rodriguez MD CBC with Diffon 08-28-2023 Abs. Basophil <0.03 Normal 0.00-0.20 [facility] Comment on above: Performed By: #### T ROPI #### [place] [address] Rickshaw Driver: Ramsey Rodriguez MD Abs.Imm.Granulocyte <0.03 Normal 0.00-0.30 [facility] Comment on above: Performed By: #### T ROPI #### [place] [address] Rickshaw Driver: Ramsey Rodriguez MD Abs.Neutrophil (Seg) 4.13 k/uL Normal 1.50-8.[address] [facility] Comment on above: Performed By: #### T ROPI #### [place] [address] Rickshaw Driver: Ramsey Rodriguez MD Basophils/100 WBC (Bld) 0 % Normal 0-2 [facility] Comment on above: Performed By: #### T ROPI #### [place] [address] Rickshaw Driver: Ramsey Rodriguez MD Eosinophils (Bld) [#/Vol] 0.27 10*3/uL Normal 0.00-0.44 [facility] Comment on above: Performed By: #### T ROPI #### [address] [place] [address] Rickshaw Driver: Ramsey Rodriguez MD Eosinophils/100 WBC (Bld) 5 % High 1-4 [facility] Comment on above: Performed By: #### T ROPI #### [address] [address] Rickshaw Driver: Ramsey Rodriguez MD Erythrocyte distribution width (RBC) [Ratio] 15.7 % High 11.8-14.4 [facility] Comment on above: Performed By: #### T ROPI #### [address] [address] Rickshaw Driver: Ramsey Rodriguez MD Hematocrit (Bld) [Volume fraction] 34.6 % Low 40.7-50.3 [facility] Comment on above: Performed By: #### T ROPI #### [address] [address] Rickshaw Driver: Ramsey Rodriguez MD Hemoglobin (Bld) [Mass/Vol] 10.5 g/dL Low 13.0-17.0 [facility] Comment on above: Performed By: #### T ROPI #### [address] [address] Rickshaw Driver: Ramsey Rodriguez MD Immature granulocytes/100 WBC (Bld) 0 % Normal 0 [facility] Comment on above: Performed By: #### T ROPI #### [address] [address] Rickshaw Driver: Ramsey Rodriguez MD Lymphocytes (Bld) [#/Vol] 1.01 10*3/uL Low 1.10-3.70 [facility] Comment on above: Performed By: #### T ROPI #### [address] [address] Rickshaw Driver: Ramsey Rodriguez MD Lymphocytes/100 WBC (Bld) 17 % Low 24-43 [facility] Comment on above: Performed By: #### T ROPI #### [address] [address] Rickshaw Driver: Ramsey Rodriguez MD MCH (RBC) [Entitic mass] 30.8 pg Normal 25.2-33.5 [facility] Comment on above: Performed By: #### T ROPI #### [place] [address] Rickshaw Driver: Ramsey Rodriguez MD MCHC (RBC) [Mass/Vol] 30.3 g/dL Normal 28.4-34.8 [facility] Comment on above: Performed By: #### T ROPI #### [place] [address] Rickshaw Driver: Ramsey Rodriguez MD MCV (RBC) [Entitic vol] 101.5 fL Normal 82.6-102.9 [facility] Comment on above: Performed By: #### T ROPI #### [place] [address] Rickshaw Driver: Ramsey Rodriguez MD Monocytes (Bld) [#/Vol] 0.39 10*3/uL Normal 0.10-1.20 [facility] Comment on above: Performed By: #### T ROPI #### [place] [address] Rickshaw Driver: Ramsey Rodriguez MD Monocytes/100 WBC (Bld) 7 % Normal 3-12 [facility] Comment on above: Performed By: #### T ROPI #### [address] [address] Rickshaw Driver: Ramsey Rodriguez MD Neutrophil (Seg) 71 % High 36-65 [facility] Comment on above: Performed By: #### T ROPI #### [address] [address] Rickshaw Driver: Ramsey Rodriguez MD NRBC Automated 0.0 per 100 WBC Normal 0.0 [facility] Comment on above: Performed By: #### T ROPI #### [address] [address] Rickshaw Driver: Ramsey Rodriguez MD Platelet mean volume (Bld) [Entitic vol] 10.3 fL Normal 8.1-13.5 [facility] Comment on above: Performed By: #### T ROPI #### [address] [address] Rickshaw Driver: Ramsey Rodriguez MD Platelets (Bld) [#/Vol] 145 10*3/uL Normal 138-453 [facility] Comment on above: Performed By: #### T ROPI #### [address] [address] Rickshaw Driver: Ramsey Rodriguez MD RBC (Bld) [#/Vol] 3.41 10*6/uL Low 4.21-5.77 [facility] Comment on above: Performed By: #### T ROPI #### [address] [address] Rickshaw Driver: Ramsey Rodriguez MD RBC morphology finding Nom (Bld) ANISOCYTOSIS PRESENT Normal [facility] Comment on above: Performed By: #### T ROPI #### [address] [address] Rickshaw Driver: Ramsey Rodriguez MD WBC (Bld) [#/Vol] 5.8 10*3/uL Normal 3.5-11.3 [facility] Comment on above: Performed By: #### T ROPI #### [address] [address] Rickshaw Driver: Ramsey Rodriguez MD FL MODIFIED BARIUM SWALLOW W VIDEOon 08-28-2023 [place] MODIFIED BARIUM SWALLOW W VIDEO EXAMINATION: MODIFIED BARIUM SWALLOW WAS PERFORMED IN CONJUNCTION WITH [employer] TECHNIQUE: Under fluoroscopic evaluation cineradiography/videor adiography recordings were performed in conjunction with the speech-language pathologist (BUILDING CUSTODIAN). Various liquid, solid and/or semi-solid barium preparations were used to assess swallowing function. FLUOROSCOPY DOSE AND TYPE: Radiation Exposure Index: DAP [id number], COMPARISON: None HISTORY: ORDERING SYSTEM PROVIDED HISTORY: dysphagia TECHNOLOGIST PROVIDED HISTORY: dysphagia FINDINGS: Thin liquid: Given by teaspoon no laryngeal penetration or aspiration. Given by straw there is trace laryngeal penetration. No aspiration. [place] thick liquid: Given by teaspoon no laryngeal [...] Christiano Cohen MD 08/28/23 Final result Normal [facility] Glucose,Whole Bloodon 2023 Glucose [Mass/Vol] 86 mg/dL Normal 75-110 [facility] Glucose [Mass/Vol] 87 mg/dL Normal 75-110 [facility] Glucose [Mass/Vol] 105 mg/dL Normal 75-110 [facility] Heparin Anti-Xaon 08-28-2023 Heparin Anti-Xa 0.22 IU/L Normal [facility] Comment on above: Performed By: #### H EPXA, CBC, PTT, PT #### [employer] [address] [place] [address] Rickshaw Driver: Ramsey Rodriguez MD Magnesiumon 08-28-2023 Magnesium [Mass/Vol] 2.4 mg/dL Normal 1.6-2.[address] [facility] Comment on above: Performed By: #### H EPXA, CBC, PTT, PT #### [employer] [address] [place] [address] Rickshaw Driver: Ramsey Rodriguez MD Magnesium [Mass/Vol] 1.7 mg/dL Normal 1.6-2.[address] [facility] Comment on above: Performed By: #### T ROPI #### [facility] [address] [place] [address] Rickshaw Driver: Ramsey Rodriguez MD PTon 08-28-2023 INR Coag (PPP) [Relative time] 1.0 {INR} Normal [facility] Comment on above: Result Comment: Therapeutic Range: Moderate Anticoagulant Intensity: INR = 2.0-3.0 High Anticoagulant Intensity: INR = 2.5-3.5 Performed By: #### H EPXA, CBC, PTT, PT #### [facility] [address] [place] [address] Rickshaw Driver: Ramsey Rodriguez MD PT Coag (PPP) [Time] 13.5 s Normal 11.7-14.[address] [facility] Comment on above: Performed By: #### H EPXA, CBC, PTT, PT #### [employer] [address] [place] [address] Rickshaw Driver: Ramsey Rodriguez MD Phosphorus, Inorg.on Phosphorus, Inorg. 2.2 mg/dL Low 2.5-4.5 [facility] Comment on above: Performed By: #### H EPXA, CBC, PTT, PT #### [employer] [address] [place] [address] Rickshaw Driver: Ramsey Rodriguez MD Phosphorus, Inorg. 2.4 mg/dL Low 2.5-4.5 [facility] Comment on above: Performed By: #### T ROPI #### [employer] [address] [place] [address] Rickshaw Driver: Ramsey Rodriguez MD Troponinon 08-28-2023 Troponin, High Sens 142 ng/L Critically high 0-22 [facility] Comment on above: Result Comment: High Sensitivity Troponin values cannot be compared with other Troponin methodologies. Previous Alert Value Reported Performed By: #### H EPXA, CBC, PTT, PT #### [employer] [address] [place], [place] [id number] Rickshaw Driver: Ramsey Rodriguez MD Troponin, High Sens 138 ng/L Critically high 0-22 [facility] Comment on above: Result Comment: High Sensitivity Troponin values cannot be compared with other Troponin methodologies. Performed By: #### B MP, TROPI #### [facility] [place], [place] [id number] Rickshaw Driver: Ramsey Rodriguez MD XR CHEST PORTABLEon 08-28-19 [...] Rafat Dumont MD 08/28/23 Final result Normal [facility] Basic Metabolic Profon 08-26 Anion gap [Moles/Vol] 7 mmol/L Low 9-16 [facility] Comment on above: Performed By: #### H EPXA, CBC, PTT, PT #### [employer] [address] [place] [address] Rickshaw Driver: Ramsey Rodriguez MD Calcium [Mass/Vol] 8.0 mg/dL Low 8.6-10.4 [facility] Comment on above: Performed By: #### H EPXA, CBC, PTT, PT #### [employer] [address] [place], [place] [id number] Rickshaw Driver: Ramsey Rodriguez MD Chloride [Moles/Vol] 107 mmol/L Normal 98-[address] [facility] Comment on above: Performed By: #### H EPXA, CBC, PTT, PT #### [facility] [address] [place] [address] Rickshaw Driver: Ramsey Rodriguez MD CO2 [Moles/Vol] 26 mmol/L Normal 20-31 [facility] Comment on above: Performed By: #### H EPXA, CBC, PTT, PT #### [facility] [address] [place] [address] Rickshaw Driver: Ramsey Rodriguez MD Creatinine [Mass/Vol] 0.6 mg/dL Low 0.70-1.20 [facility] Comment on above: Performed By: #### H EPXA, CBC, PTT, PT #### [facility] [address] [place] [address] Rickshaw Driver: Ramsey Rodriguez MD GFR/1.73 sq M.predicted among non-blacks MDRD (S/P/Bld) [Vol rate/Area] mL/min/{1.73_m2} Normal >60 [facility] Comment on above: Result Comment: These [...] #### H EPXA, CBC, PTT, PT #### [facility] [address] [place] [address] Rickshaw Driver: Ramsey Rodriguez MD Glucose [Mass/Vol] 104 mg/dL High 74-99 [facility] Comment on above: Performed By: #### H EPXA, CBC, PTT, PT #### [facility] [address] [place] [address] Rickshaw Driver: Ramsey Rodriguez MD Potassium [Moles/Vol] 3.6 mmol/L Low 3.7-5.3 [facility] Comment on above: Performed By: #### H EPXA, CBC, PTT, PT #### [facility] [address] [place] [address] Rickshaw Driver: Ramsey Rodriguez MD Sodium [Moles/Vol] 140 mmol/L Normal 136-145 [facility] Comment on above: Performed By: #### H EPXA, CBC, PTT, PT #### [address] [address] Rickshaw Driver: Ramsey Rodriguez MD Urea nitrogen [Mass/Vol] 14 mg/dL Normal 8-23 [facility] Comment on above: Performed By: #### H EPXA, CBC, PTT, PT #### [facility] [address] [place] [address] Rickshaw Driver: Ramsey Rodriguez MD CBC with Diffon 08-27-2023 Abs. Basophil <0.03 Normal 0.00-0.20 [facility] Comment on above: Performed By: #### H EPXA, CBC, PTT, PT #### [facility] [address] [place] [address] Rickshaw Driver: Ramsey Rodriguez MD Abs.Imm.Granulocyte <0.03 Normal 0.00-0.30 [facility] Comment on above: Performed By: #### H EPXA, CBC, PTT, PT #### [facility] [address] [place] [address] Rickshaw Driver: Ramsey Rodriguez MD Abs.Neutrophil (Seg) 3.93 k/uL Normal 1.50-8.[address] [facility] Comment on above: Performed By: #### H EPXA, CBC, PTT, PT #### [facility] [address] [place] [address] Rickshaw Driver: Ramsey Rodriguez MD Basophils/100 WBC (Bld) 0 % Normal 0-2 [facility] Comment on above: Performed By: #### H EPXA, CBC, PTT, PT #### [facility] [address] [place] [address] Rickshaw Driver: Ramsey Rodriguez MD Eosinophils (Bld) [#/Vol] 0.25 10*3/uL Normal 0.00-0.44 [facility] Comment on above: Performed By: #### H EPXA, CBC, PTT, PT #### [facility] [address] [place] [address] Rickshaw Driver: Ramsey Rodriguez MD Eosinophils/100 WBC (Bld) 5 % High 1-4 [facility] Comment on above: Performed By: #### H EPXA, CBC, PTT, PT #### [facility] [address] [place] [address] Rickshaw Driver: Ramsey Rodriguez MD Erythrocyte distribution width (RBC) [Ratio] 15.8 % High 11.8-14.4 [facility] Comment on above: Performed By: #### H EPXA, CBC, PTT, PT #### [facility] [address] [place] [address] Rickshaw Driver: Ramsey Rodriguez MD Hematocrit (Bld) [Volume fraction] 33.2 % Low 40.7-50.3 [facility] Comment on above: Performed By: #### H EPXA, CBC, PTT, PT #### [facility] [address] [place] [address] Rickshaw Driver: Ramsey Rodriguez MD Hemoglobin (Bld) [Mass/Vol] 10.3 g/dL Low 13.0-17.0 [facility] Comment on above: Performed By: #### H EPXA, CBC, PTT, PT #### [facility] [address] [place] [address] Rickshaw Driver: Ramsey Rodriguez MD Immature granulocytes/100 WBC (Bld) 0 % Normal 0 [facility] Comment on above: Performed By: #### H EPXA, CBC, PTT, PT #### [address] [address] Rickshaw Driver: Ramsey Rodriguez MD Lymphocytes (Bld) [#/Vol] 1.01 10*3/uL Low 1.10-3.70 [facility] Comment on above: Performed By: #### H EPXA, CBC, PTT, PT #### [place] [address] Rickshaw Driver: Ramsey Rodriguez MD Lymphocytes/100 WBC (Bld) 18 % Low 24-43 [facility] Comment on above: Performed By: #### H EPXA, CBC, PTT, PT #### [facility] [employer] [address] [place] [address] Rickshaw Driver: Ramsey Rodriguez MD MCH (RBC) [Entitic mass] 30.6 pg Normal 25.2-33.5 [facility] Comment on above: Performed By: #### H EPXA, CBC, PTT, PT #### [facility] [address] [place] [address] Rickshaw Driver: Ramsey Rodriguez MD MCHC (RBC) [Mass/Vol] 31.0 g/dL Normal 28.4-34.8 [facility] Comment on above: Performed By: #### H EPXA, CBC, PTT, PT #### [facility] [address] [place] [address] Rickshaw Driver: Ramsey Rodriguez MD MCV (RBC) [Entitic vol] 98.5 fL Normal 82.6-102.9 [facility] Comment on above: Performed By: #### H EPXA, CBC, PTT, PT #### [facility] [address] [place] [address] Rickshaw Driver: Ramsey Rodriguez MD Monocytes (Bld) [#/Vol] 0.33 10*3/uL Normal 0.10-1.20 [facility] Comment on above: Performed By: #### H EPXA, CBC, PTT, PT #### [address] [address] Rickshaw Driver: Ramsey Rodriguez MD Monocytes/100 WBC (Bld) 6 % Normal 3-12 [facility] Comment on above: Performed By: #### H EPXA, CBC, PTT, PT #### [address] [address] Rickshaw Driver: Ramsey Rodriguez MD Neutrophil (Seg) 71 % High 36-65 [facility] Comment on above: Performed By: #### H EPXA, CBC, PTT, PT #### [address] [address] Rickshaw Driver: Ramsey Rodriguez MD NRBC Automated 0.0 per 100 WBC Normal 0.0 [facility] Comment on above: Performed By: #### H EPXA, CBC, PTT, PT #### [address] [address] Rickshaw Driver: Ramsey Rodriguez MD Platelet mean volume (Bld) [Entitic vol] 10.2 fL Normal 8.1-13.5 [facility] Comment on above: Performed By: #### H EPXA, CBC, PTT, PT #### [address] [address] Rickshaw Driver: Ramsey Rodriguez MD Platelets (Bld) [#/Vol] 136 10*3/uL Low 138-453 [facility] Comment on above: Performed By: #### H EPXA, CBC, PTT, PT #### [address] [phone] Rickshaw Driver: Ramsey Rodriguez MD RBC (Bld) [#/Vol] 3.37 10*6/uL Low 4.21-5.77 [facility] Comment on above: Performed By: #### H EPXA, CBC, PTT, PT #### [facility] [address] [place] [address] Rickshaw Driver: Ramsey Rodriguez MD RBC morphology finding Nom (Bld) ANISOCYTOSIS PRESENT Normal [facility] Comment on above: Performed By: #### H EPXA, CBC, PTT, PT #### [facility] [address] [place] [address] Rickshaw Driver: Ramsey Rodriguez MD WBC (Bld) [#/Vol] 5.6 10*3/uL Normal 3.5-11.3 [facility] Comment on above: Performed By: #### H EPXA, CBC, PTT, PT #### [facility] [address] [place] [address] Rickshaw Driver: Ramsey Rodriguez MD Glucose,Whole Bloodon 2023 Glucose [Mass/Vol] 103 mg/dL Normal 75-110 [facility] Glucose [Mass/Vol] 99 mg/dL Normal 75-110 [facility] Glucose [Mass/Vol] 95 mg/dL Normal 75-110 [facility] Magnesiumon 08-27-2023 Magnesium [Mass/Vol] 2.0 mg/dL Normal 1.6-2.[address] [facility] Comment on above: Performed By: #### H EPXA, CBC, PTT, PT #### [facility] [address] [place] [address] Rickshaw Driver: Ramsey Rodriguez MD Phosphorus, Inorg.on 024 Phosphorus, Inorg. 2.4 mg/dL Low 2.5-4.5 [facility] Comment on above: Performed By: #### H EPXA, CBC, PTT, PT #### [address] [address] Rickshaw Driver: Ramsey Rodriguez MD Urinalysis, Routineon 2023 Bilirubin, SemiQt,Ur Negative Normal NEG [facility] Comment on above: Performed By: #### B MP, CDP, HEPXA #### [address] [address] Rickshaw Driver: Ramsey Rodriguez MD Blood, Urine Negative Normal NEG [facility] Comment on above: Performed By: #### B MP, CDP, HEPXA #### [facility] [address] [place] [address] Rickshaw Driver: Ramsey Rodriguez MD Clarity (U) Clear Normal CLEAR [facility] Comment on above: Performed By: #### B MP, CDP, HEPXA #### [facility] [address] [place] [address] Rickshaw Driver: Ramsey Rodriguez MD Color (U) Yellow Normal YEL [facility] Comment on above: Performed By: #### B MP, CDP, HEPXA #### [facility] [address] [place] [address] Rickshaw Driver: Ramsey Rodriguez MD Comment Microscopic exam not performed based on chemical results unless requested in Normal [facility] Comment on above: Result Comment: orig inal order. Performed By: #### B MP, CDP, HEPXA #### [facility] [address] [place] [address] Rickshaw Driver: Ramsey Rodriguez MD Glucose Ql (U) Negative Normal NEG [facility] Comment on above: Performed By: #### B MP, CDP, HEPXA #### [facility] [address] [place] [address] Rickshaw Driver: Ramsey Rodriguez MD Ketones Ql (U) Negative Normal NEG [facility] Comment on above: Performed By: #### B MP, CDP, HEPXA #### [facility] [address] [place] [address] Rickshaw Driver: Ramsey Rodriguez MD Leukocyte esterase Test strip Ql (U) Negative Normal NEG [facility] Comment on above: Performed By: #### B MP, CDP, HEPXA #### [facility] [address] [place] [address] Rickshaw Driver: Ramsey Rodriguez MD Nitrite,Ur Negative Normal NEG [facility] Comment on above: Performed By: #### B MP, CDP, HEPXA #### [address] [address] Rickshaw Driver: Ramsey Rodriguez MD PH,Ur 5.5 Normal 5.0-8.0 [facility] Comment on above: Performed By: #### B MP, CDP, HEPXA #### [facility] [address] [place] [address] Rickshaw Driver: Ramsey Rodriguez MD Protein Ql (U) Negative Normal NEG [facility] Comment on above: Performed By: #### B MP, CDP, HEPXA #### [facility] [address] [place] [address] Rickshaw Driver: Ramsey Rodriguez MD Spec. [place],Ur 1.008 Normal 1.005-1.030 [facility] Comment on above: Performed By: #### B MP, CDP, HEPXA #### [facility] [address] [place] [address] Rickshaw Driver: Ramsey Rodriguez MD Urobilinogen,Ur Normal Normal 0.0-1.0 [facility] Comment on above: Performed By: #### B MP, CDP, HEPXA #### [facility] [address] [place] [address] Rickshaw Driver: Ramsey Rodriguez MD XR CHEST PORTABLEon 08-27-19 [...] Alex Martinez MD 08/27/23 Final result Normal [facility] Arterial Bld Gas,POCon 08-25 Eliazar Test Positive Normal [facility] FIO2 60.0 Normal [facility] HCO3 (Bld) [Moles/Vol] 26.6 mmol/L Normal 21.0-28.0 [facility] O2 Device BIPAP Normal [facility] Oxygen saturation in Blood 99.1 % High 94.0-98.0 [facility] pCO2, Arterial 40.5 mm Hg Normal 35.0-48.0 [facility] pH, Arterial 7.426 Normal 7.350-7.450 [facility] pO2, Arterial 135.5 mm Hg High 83.0-108.0 [facility] Positive Base Excess (calc) 2.1 mmol/L Normal 0.0-3.0 [facility] Site Drawn Right Radial Artery Normal [facility] Basic Metabolic Profon 08-25 Anion gap [Moles/Vol] 5 mmol/L Low 9-16 [facility] Comment on above: Performed By: #### B KAITLYNN LEON #### [employer] [address] [place] [address] Rickshaw Driver: Ramsey Rodriguez MD Calcium [Mass/Vol] 8.2 mg/dL Low 8.6-10.4 [facility] Comment on above: Performed By: #### B KAITLYNN LEON #### [facility] [address] [place] [address] Rickshaw Driver: Ramsey Rodriguez MD Chloride [Moles/Vol] 107 mmol/L Normal 98-[address] [facility] Comment on above: Performed By: #### B MP, TROPI #### [facility] [address] [place] [address] Rickshaw Driver: Ramsey Rodriguez MD CO2 [Moles/Vol] 26 mmol/L Normal 20-31 [facility] Comment on above: Performed By: #### B EDWARD, TROPI #### [facility] [address] [place] [address] Rickshaw Driver: Ramsey Rodriguez MD Creatinine [Mass/Vol] 0.6 mg/dL Low 0.70-1.20 [facility] Comment on above: Performed By: #### B EDWARD, TROPI #### [facility] [address] [place] [address] Rickshaw Driver: Ramsey Rodriguez MD GFR/1.73 sq M.predicted among non-blacks MDRD (S/P/Bld) [Vol rate/Area] mL/min/{1.73_m2} Normal >60 [facility] Comment on above: Result Comment: These [...] Performed By: #### B EDWARD, TROPI #### [facility] [address] [place] [address] Rickshaw Driver: Ramsey Rodriguez MD Glucose [Mass/Vol] 92 mg/dL Normal 74-99 [facility] Comment on above: Performed By: #### B EDWARD, TROPI #### [place] [address] [place] [address] Rickshaw Driver: Ramsey Rodriguez MD Potassium [Moles/Vol] 4.2 mmol/L Normal 3.7-5.3 [facility] Comment on above: Performed By: #### B MP, TROPI #### [address] [address] Rickshaw Driver: Ramsey Rodriguez MD Sodium [Moles/Vol] 138 mmol/L Normal 136-145 [facility] Comment on above: Performed By: #### B EDWARD, TROPI #### [address] [address] Rickshaw Driver: Ramsey Rodriguez MD Urea nitrogen [Mass/Vol] 18 mg/dL Normal 8-23 [facility] Comment on above: Performed By: #### B EDWARD, TROPI #### [address] [address] Rickshaw Driver: Ramsey Rodriguez MD CBC with Diffon 08-26-2023 Abs. Basophil <0.03 Normal 0.00-0.20 [facility] Comment on above: Performed By: #### B EDWARD, TROPI #### [address] [address] Rickshaw Driver: Ramsey Rodriguez MD Abs.Imm.Granulocyte <0.03 Normal 0.00-0.30 [facility] Comment on above: Performed By: #### B EDWARD, TROPI #### [address] [address] Rickshaw Driver: Ramsey Rodriguez MD Abs.Neutrophil (Seg) 4.44 k/uL Normal 1.50-8.[address] [facility] Comment on above: Performed By: #### B MP, TROPI #### [facility] [address] [place] [address] Rickshaw Driver: Ramsey Rodriguez MD Basophils/100 WBC (Bld) 0 % Normal 0-2 [facility] Comment on above: Performed By: #### B EDWARD TROPI #### [address] [address] Rickshaw Driver: Ramsey Rodriguez MD Eosinophils (Bld) [#/Vol] 0.17 10*3/uL Normal 0.00-0.44 [facility] Comment on above: Performed By: #### B EDWARD, TROPI #### [facility] [address] [place] [address] Rickshaw Driver: Ramsey Rodriguez MD Eosinophils/100 WBC (Bld) 3 % Normal 1-4 [facility] Comment on above: Performed By: #### B EDWRAD TROPI #### [address] [address] Rickshaw Driver: Ramsey Rodriguez MD Erythrocyte distribution width (RBC) [Ratio] 15.7 % High 11.8-14.4 [facility] Comment on above: Performed By: #### B EDWARD TROPI #### [facility] [address] [place] [address] Rickshaw Driver: Ramsey Rodriguez MD Hematocrit (Bld) [Volume fraction] 34.0 % Low 40.7-50.3 [facility] Comment on above: Performed By: #### B EDWARD TROPI #### [facility] [address] [place] [address] Rickshaw Driver: Ramsey Rodriguez MD Hemoglobin (Bld) [Mass/Vol] 10.8 g/dL Low 13.0-17.0 [facility] Comment on above: Performed By: #### B EDWARD, TROPI #### [facility] [address] [place] [phone] Rickshaw Driver: Ramsey Rodriguez MD Immature granulocytes/100 WBC (Bld) 0 % Normal 0 [facility] Comment on above: Performed By: #### B MP, TROPI #### [address] [address] Rickshaw Driver: Ramsey Rodriguez MD Lymphocytes (Bld) [#/Vol] 1.18 10*3/uL Normal 1.10-3.70 [facility] Comment on above: Performed By: #### B MP, TROPI #### [place] [address] Rickshaw Driver: Ramsey Rodriguez MD Lymphocytes/100 WBC (Bld) 19 % Low 24-43 [facility] Comment on above: Performed By: #### B EDWARD, TROPI #### [facility] [address] [place] [address] Rickshaw Driver: Ramsey Rodriguez MD MCH (RBC) [Entitic mass] 30.7 pg Normal 25.2-33.5 [facility] Comment on above: Performed By: #### B EDWARD, TROPI #### [place] [address] Rickshaw Driver: Ramsey Rodriguez MD MCHC (RBC) [Mass/Vol] 31.8 g/dL Normal 28.4-34.8 [facility] Comment on above: Performed By: #### B EDWARD, TROPI #### [place] [address] Rickshaw Driver: Ramsey Rodriguez MD MCV (RBC) [Entitic vol] 96.6 fL Normal 82.6-102.9 [facility] Comment on above: Performed By: #### B MP, TROPI #### [place] [address] Rickshaw Driver: Ramsey Rodriguez MD Monocytes (Bld) [#/Vol] 0.41 10*3/uL Normal 0.10-1.20 [facility] Comment on above: Performed By: #### B MP, TROPI #### [facility] [address] [place] [address] Rickshaw Driver: Ramsey Rodriguez MD Monocytes/100 WBC (Bld) 7 % Normal 3-12 [facility] Comment on above: Performed By: #### B MP, TROPI #### [address] [address] Rickshaw Driver: Ramsey Rodriguez MD Neutrophil (Seg) 71 % High 36-65 [facility] Comment on above: Performed By: #### B MP, TROPI #### [address] [address] Rickshaw Driver: Ramsey Rodriguez MD NRBC Automated 0.0 per 100 WBC Normal 0.0 [facility] Comment on above: Performed By: #### B MP, TROPI #### [address] [address] Rickshaw Driver: Ramsey Rodriguez MD Platelet mean volume (Bld) [Entitic vol] 9.9 fL Normal 8.1-13.5 [facility] Comment on above: Performed By: #### B MP, TROPI #### [address] [address] Rickshaw Driver: Ramsey Rodriguez MD Platelets (Bld) [#/Vol] 143 10*3/uL Normal 138-453 [facility] Comment on above: Performed By: #### B MP, TROPI #### [address] [address] Rickshaw Driver: Ramsey Rodriguez MD RBC (Bld) [#/Vol] 3.52 10*6/uL Low 4.21-5.77 [facility] Comment on above: Performed By: #### B MP, TROPI #### [facility] [address] [place] [phone] Rickshaw Driver: Ramsey Rodriguez MD RBC morphology finding Nom (Bld) ANISOCYTOSIS PRESENT Normal [facility] Comment on above: Performed By: #### B KAITLYNN LEON #### [address] [address] Rickshaw Driver: Ramsey Rodriguez MD WBC (Bld) [#/Vol] 6.2 10*3/uL Normal 3.5-11.3 [facility] Comment on above: Performed By: #### B KAITLYNN LEON #### [address] [address] Rickshaw Driver: Ramsey Rodriguez MD Gl Hemostasis TEG w/Lysison 08-26-2023 Fibrinogen, Func TEG 5.4 mm Low 15.0-32.[address] [facility] Comment on above: Performed By: #### H EPXA, CBC, PTT, PT #### [address] [address] Rickshaw Driver: Ramsey Rodriguez MD LY30 (Lysis) TEG 0.0 % Normal 0.0-2.6 [facility] Comment on above: Performed By: #### H EPXA, CBC, PTT, PT #### [address] [address] Rickshaw Driver: Ramsey Rodriguez MD MA Rapid TEG <40.0 Low 52.0-70 [facility] Comment on above: Performed By: #### H EPXA, CBC, PTT, PT #### [address] [address] Rickshaw Driver: Ramsey Rodriguez MD R(Reaction Time) TEG >17.0 High 4.6-9.[address] [facility] Comment on above: Performed By: #### H EPXA, CBC, PTT, PT #### [address] [address] Rickshaw Driver: Ramsey Rodriguez MD Glucose,Whole Bloodon 2023 Glucose [Mass/Vol] 99 mg/dL Normal 75-110 [facility] Glucose [Mass/Vol] 86 mg/dL Normal 75-110 [facility] Glucose [Mass/Vol] 101 mg/dL Normal 75-110 [facility] Glucose [Mass/Vol] 86 mg/dL Normal 75-110 [facility] Magnesiumon 08-26-2023 Magnesium [Mass/Vol] 1.7 mg/dL Normal 1.6-2.[address] [facility] Comment on above: Performed By: #### T ROPI #### [facility] [address] [place] [phone] Rickshaw Driver: Ramsey Rodriguez MD PTon 08-26-2023 INR Coag (PPP) [Relative time] 1.1 {INR} Normal [facility] Comment on above: Result Comment: Therapeutic Range: Moderate Anticoagulant Intensity: INR = 2.0-3.0 High Anticoagulant Intensity: INR = 2.5-3.5 Performed By: #### B TASIA LEONI #### [facility] [address] [place] [address] [phone] Rickshaw Driver: Ramsey Rodriguez MD PT Coag (PPP) [Time] 13.7 s Normal 11.7-14.[address] [facility] Comment on above: Performed By: #### B EDWARD TROPI #### [facility] [address] [place] [address] [phone] Rickshaw Driver: Ramsey Rodriguez MD XR CHEST PORTABLEon 08-26-19 [...] Jordy Michel MD 08/26/23 Final result Normal [facility] Basic Metab w/rfx MGon 08-24 Anion gap [Moles/Vol] 7 mmol/L Low 9-16 [facility] Comment on above: Performed By: #### T ROPI #### [address] [address] Rickshaw Driver: Ramsey Rodriguez MD Calcium [Mass/Vol] 7.8 mg/dL Low 8.6-10.4 [facility] Comment on above: Performed By: #### T ROPI #### [address] [address] Rickshaw Driver: Ramsey Rodriguez MD Chloride [Moles/Vol] 109 mmol/L High 98-[address] [facility] Comment on above: Performed By: #### T ROPI #### [address] [address] Rickshaw Driver: Ramsey Rodriguez MD CO2 [Moles/Vol] 21 mmol/L Normal 20-31 [facility] Comment on above: Performed By: #### T ROPI #### [address] [address] Rickshaw Driver: Ramsey Rodriguez MD Creatinine [Mass/Vol] 0.5 mg/dL Low 0.70-1.20 [facility] Comment on above: Performed By: #### T ROPI #### [address] [address] Rickshaw Driver: Ramsey Rodriguez MD GFR/1.73 sq M.predicted among non-blacks MDRD (S/P/Bld) [Vol rate/Area] mL/min/{1.73_m2} Normal >60 [facility] Comment on above: Result Comment: These [...] secretion. Performed By: #### T ROPI #### [facility] [address] [place] [address] Rickshaw Driver: Ramsey Rodriguez MD Glucose [Mass/Vol] 79 mg/dL Normal 74-99 [facility] Comment on above: Performed By: #### T ROPI #### [facility] [address] [place] [address] Rickshaw Driver: Ramsey Rodriguez MD Potassium [Moles/Vol] 4.5 mmol/L Normal 3.7-5.3 [facility] Comment on above: Performed By: #### T ROPI #### [facility] [address] [place] [address] Rickshaw Driver: Ramsey Rodriguez MD Sodium [Moles/Vol] 137 mmol/L Normal 136-145 [facility] Comment on above: Performed By: #### T ROPI #### [facility] [address] [place] [address] Rickshaw Driver: Ramsey Rodriguez MD Urea nitrogen [Mass/Vol] 13 mg/dL Normal 8-23 [facility] Comment on above: Performed By: #### T ROPI #### [facility] [address] [place] [address] Rickshaw Driver: Ramsey Rodriguez MD CBC with Diffon 08-25-2023 Abs. Basophil <0.03 Normal 0.00-0.20 [facility] Comment on above: Performed By: #### T ROPI #### [facility] [address] [place] [address] Rickshaw Driver: Ramsey Rodriguez MD Abs.Imm.Granulocyte <0.03 Normal 0.00-0.30 [facility] Comment on above: Performed By: #### T ROPI #### [address] [address] Rickshaw Driver: Ramsey Rodriguez MD Abs.Neutrophil (Seg) 2.56 k/uL Normal 1.50-8.[address] [facility] Comment on above: Performed By: #### T ROPI #### [address] [address] Rickshaw Driver: Ramsey Rodriguez MD Basophils/100 WBC (Bld) 1 % Normal 0-2 [facility] Comment on above: Performed By: #### T ROPI #### [place] [address] Rickshaw Driver: Ramsey Rodriguez MD Eosinophils (Bld) [#/Vol] 0.18 10*3/uL Normal 0.00-0.44 [facility] Comment on above: Performed By: #### T ROPI #### [address] [address] Rickshaw Driver: Rmasey Rodriguez MD Eosinophils/100 WBC (Bld) 4 % Normal 1-4 [facility] Comment on above: Performed By: #### T ROPI #### [place] [address] Rickshaw Driver: Ramsey Rodriguez MD Erythrocyte distribution width (RBC) [Ratio] 15.8 % High 11.8-14.4 [facility] Comment on above: Performed By: #### T ROPI #### [address] [address] Rickshaw Driver: Ramsey Rodriguez MD Hematocrit (Bld) [Volume fraction] 33.3 % Low 40.7-50.3 [facility] Comment on above: Performed By: #### T ROPI #### [address] [address] Rickshaw Driver: Ramsey Rodriguez MD Hemoglobin (Bld) [Mass/Vol] 10.4 g/dL Low 13.0-17.0 [facility] Comment on above: Performed By: #### T ROPI #### [address] [address] Rickshaw Driver: Ramsey Rodriguez MD Immature granulocytes/100 WBC (Bld) 0 % Normal 0 [facility] Comment on above: Performed By: #### T ROPI #### [address] [address] Rickshaw Driver: Ramsey Rodriguez MD Lymphocytes (Bld) [#/Vol] 1.22 10*3/uL Normal 1.10-3.70 [facility] Comment on above: Performed By: #### T ROPI #### [address] [address] Rickshaw Driver: Ramsey Rodriguez MD Lymphocytes/100 WBC (Bld) 28 % Normal 24-43 [facility] Comment on above: Performed By: #### T ROPI #### [address] [address] Rickshaw Driver: Ramsey Rodriguez MD MCH (RBC) [Entitic mass] 31.0 pg Normal 25.2-33.5 [facility] Comment on above: Performed By: #### T ROPI #### [address] [address] Rickshaw Driver: Ramsey Rodriguez MD MCHC (RBC) [Mass/Vol] 31.2 g/dL Normal 28.4-34.8 [facility] Comment on above: Performed By: #### T ROPI #### [address] [place] [address] Rickshaw Driver: Ramsey Rodriguez MD MCV (RBC) [Entitic vol] 99.4 fL Normal 82.6-102.9 [facility] Comment on above: Performed By: #### T ROPI #### [address] [address] Rickshaw Driver: Ramsey Rodriguez MD Monocytes (Bld) [#/Vol] 0.32 10*3/uL Normal 0.10-1.20 [facility] Comment on above: Performed By: #### T ROPI #### [address] [address] Rickshaw Driver: Ramsey Rodriguez MD Monocytes/100 WBC (Bld) 7 % Normal 3-12 [facility] Comment on above: Performed By: #### T ROPI #### [address] [address] Rickshaw Driver: Ramsey Rodriguez MD Neutrophil (Seg) 60 % Normal 36-65 [facility] Comment on above: Performed By: #### T ROPI #### [address] [address] Rickshaw Driver: Ramsey Rodriguez MD NRBC Automated 0.0 per 100 WBC Normal 0.0 [facility] Comment on above: Performed By: #### T ROPI #### [address] [address] Rickshaw Driver: Ramsey Rodriguez MD Platelet mean volume (Bld) [Entitic vol] 10.0 fL Normal 8.1-13.5 [facility] Comment on above: Performed By: #### T ROPI #### [address] [address] Rickshaw Driver: Ramsey Rodriguez MD Platelets (Bld) [#/Vol] 143 10*3/uL Normal 138-453 [facility] Comment on above: Performed By: #### T ROPI #### [facility] [address] [place] [address] Rickshaw Driver: Ramsey Rodriguez MD RBC (Bld) [#/Vol] 3.35 10*6/uL Low 4.21-5.77 [facility] Comment on above: Performed By: #### T ROPI #### [address] [place] [address] Rickshaw Driver: Ramsey Rodriguez MD RBC morphology finding Nom (Bld) ANISOCYTOSIS PRESENT Normal [facility] Comment on above: Performed By: #### T ROPI #### [address] [place] [address] Rickshaw Driver: Ramsey Rodriguez MD WBC (Bld) [#/Vol] 4.3 10*3/uL Normal 3.5-11.3 [facility] Comment on above: Performed By: #### T ROPI #### [address] [address] Rickshaw Driver: Ramsey Rodriguez MD Glucose,Whole Bloodon 2023 Glucose [Mass/Vol] 88 mg/dL Normal 75-110 [facility] Glucose [Mass/Vol] 102 mg/dL Normal 75-110 [facility] Glucose [Mass/Vol] 104 mg/dL Normal 75-110 [facility] Glucose [Mass/Vol] 80 mg/dL Normal 75-110 [facility] XR ABDOMEN (KUB) (SINGLE AP VIEW)on [...] SBO remains in the differential. Interpreted by: Gearrdo Stafford MD Signed by: Gerardo Stafford MD 08/25/23 Final result Normal [facility] Basic Metab w/rfx MGon 08-23 Anion gap [Moles/Vol] 6 mmol/L Low 9-16 [facility] Comment on above: Performed By: #### B FABIANO LEON, HEPXA #### [facility] [address] [place] [address] Rickshaw Driver: Ramsey Rodriguez MD Chloride [Moles/Vol] 108 mmol/L High 98-[address] [facility] Comment on above: Performed By: #### B EDWARD CDP, HEPXA #### [facility] [address] [place] [address] Rickshaw Driver: Ramsey Rodriguez MD Potassium [Moles/Vol] 4.2 mmol/L Normal 3.7-5.3 [facility] Comment on above: Performed By: #### B EDWARD CDP, HEPXA #### [facility] [address] [place] [address] Rickshaw Driver: Ramsey Rodriguez MD Sodium [Moles/Vol] 139 mmol/L Normal 136-145 [facility] Comment on above: Performed By: #### B EDWARD CDP, HEPXA #### [employer] [address] [place] [address] Rickshaw Driver: Ramsey Rodriguez MD Calcium [Mass/Vol] 8.1 mg/dL Low 8.6-10.4 [facility] Comment on above: Performed By: #### B EDWARD CDP, HEPXA #### [employer] [address] [place] [address] Rickshaw Driver: Ramsey Rodriguez MD CO2 [Moles/Vol] 25 mmol/L Normal 20-31 [facility] Comment on above: Performed By: #### B EDWARD CDP, HEPXA #### [facility] [place] [address] Rickshaw Driver: Ramsey Rodriguez MD Creatinine [Mass/Vol] 0.5 mg/dL Low 0.70-1.20 [facility] Comment on above: Performed By: #### B FABIANO LEON, HEPXA #### [facility] [address] [place] [phone] Rickshaw Driver: Ramsey Rodriguez MD GFR/1.73 sq M.predicted among non-blacks MDRD (S/P/Bld) [Vol rate/Area] mL/min/{1.73_m2} Normal >60 [facility] Comment on above: Result Comment: These [...] By: #### B FABIANO LEON, HEPXA #### [facility] [address] [place] [address] Rickshaw Driver: Ramsey Rodriguez MD Glucose [Mass/Vol] 105 mg/dL High 74-99 [facility] Comment on above: Performed By: #### B EDWARD CDP, HEPXA #### [facility] [address] [place] [phone] Rickshaw Driver: Ramsey Rodriguez MD Urea nitrogen [Mass/Vol] 12 mg/dL Normal 8-23 [facility] Comment on above: Performed By: #### B EDWARD CDP, HEPXA #### [address] [address] Rickshaw Driver: Ramsey Rodriguez MD CBC with Diffon 08-24-2023 Abs. Basophil <0.03 Normal 0.00-0.20 [facility] Comment on above: Performed By: #### B MP, CDP, HEPXA #### [address] [address] Rickshaw Driver: Ramsey Rodriguez MD Abs.Imm.Granulocyte <0.03 Normal 0.00-0.30 [facility] Comment on above: Performed By: #### B MP, CDP, HEPXA #### [place] [address] Rickshaw Driver: Ramsey Rodriguez MD Abs.Neutrophil (Seg) 3.28 k/uL Normal 1.50-8.[address] [facility] Comment on above: Performed By: #### B MP, CDP, HEPXA #### [address] [address] Rickshaw Driver: Ramsey Rodriguez MD Basophils/100 WBC (Bld) 0 % Normal 0-2 [facility] Comment on above: Performed By: #### B MP, CDP, HEPXA #### [address] [address] Rickshaw Driver: Ramsey Rodriguez MD Eosinophils (Bld) [#/Vol] 0.29 10*3/uL Normal 0.00-0.44 [facility] Comment on above: Performed By: #### B MP, CDP, HEPXA #### [address] [address] Rickshaw Driver: Ramsey Rodriguez MD Eosinophils/100 WBC (Bld) 6 % High 1-4 [facility] Comment on above: Performed By: #### B MP, CDP, HEPXA #### [address] [address] Rickshaw Driver: Ramsey Rodriguez MD Erythrocyte distribution width (RBC) [Ratio] 15.7 % High 11.8-14.4 [facility] Comment on above: Performed By: #### B MP, CDP, HEPXA #### [address] [address] Rickshaw Driver: Ramsey Rodriguez MD Hematocrit (Bld) [Volume fraction] 33.4 % Low 40.7-50.3 [facility] Comment on above: Performed By: #### B MP, CDP, HEPXA #### [address] [address] Rickshaw Driver: Ramsey Rodriguez MD Hemoglobin (Bld) [Mass/Vol] 10.5 g/dL Low 13.0-17.0 [facility] Comment on above: Performed By: #### B MP, CDP, HEPXA #### [facility] [address] [place] [address] Rickshaw Driver: Ramsey Rodriguez MD Immature granulocytes/100 WBC (Bld) 0 % Normal 0 [facility] Comment on above: Performed By: #### B MP, CDP, HEPXA #### [facility] [address] [place] [address] Rickshaw Driver: Ramsey Rodriguez MD Lymphocytes (Bld) [#/Vol] 0.89 10*3/uL Low 1.10-3.70 [facility] Comment on above: Performed By: #### B MP, CDP, HEPXA #### [address] [address] Rickshaw Driver: Ramsey Rodriguez MD Lymphocytes/100 WBC (Bld) 19 % Low 24-43 [facility] Comment on above: Performed By: #### B MP, CDP, HEPXA #### [facility] [address] [place] [address] Rickshaw Driver: Ramsey Rodriguez MD MCH (RBC) [Entitic mass] 30.9 pg Normal 25.2-33.5 [facility] Comment on above: Performed By: #### B MP, CDP, HEPXA #### [address] [address] Rickshaw Driver: Ramsey Rodriguez MD MCHC (RBC) [Mass/Vol] 31.4 g/dL Normal 28.4-34.8 [facility] Comment on above: Performed By: #### B MP, CDP, HEPXA #### [address] [address] Rickshaw Driver: Ramsey Rodriguez MD MCV (RBC) [Entitic vol] 98.2 fL Normal 82.6-102.9 [facility] Comment on above: Performed By: #### B MP, CDP, HEPXA #### [facility] [address] [place] [phone] Rickshaw Driver: Ramsey Rodriguez MD Monocytes (Bld) [#/Vol] 0.26 10*3/uL Normal 0.10-1.20 [facility] Comment on above: Performed By: #### B MP, CDP, HEPXA #### [address] [address] Rickshaw Driver: Ramsey Rodriguez MD Monocytes/100 WBC (Bld) 6 % Normal 3-12 [facility] Comment on above: Performed By: #### B MP, CDP, HEPXA #### [facility] [address] [place] [address] Rickshaw Driver: Ramsey Rodriguez MD Neutrophil (Seg) 69 % High 36-65 [facility] Comment on above: Performed By: #### B MP, CDP, HEPXA #### [facility] [address] [place] [address] Rickshaw Driver: Ramsey Rodriguez MD NRBC Automated 0.0 per 100 WBC Normal 0.0 [facility] Comment on above: Performed By: #### B MP, CDP, HEPXA #### [address] [address] Rickshaw Driver: Ramsey Rodriguez MD Platelet mean volume (Bld) [Entitic vol] 10.0 fL Normal 8.1-13.5 [facility] Comment on above: Performed By: #### B MP, CDP, HEPXA #### [address] [address] Rickshaw Driver: Ramsey Rodriguez MD Platelets (Bld) [#/Vol] 141 10*3/uL Normal 138-453 [facility] Comment on above: Performed By: #### B MP, CDP, HEPXA #### [address] [address] Rickshaw Driver: Ramsey Rodriguez MD RBC (Bld) [#/Vol] 3.40 10*6/uL Low 4.21-5.77 [facility] Comment on above: Performed By: #### B MP, CDP, HEPXA #### [address] [address] Rickshaw Driver: Ramsey Rodriguez MD RBC morphology finding Nom (Bld) ANISOCYTOSIS PRESENT Normal [facility] Comment on above: Performed By: #### B MP, CDP, HEPXA #### [address] [address] Rickshaw Driver: Ramsey Rodriguez MD WBC (Bld) [#/Vol] 4.8 10*3/uL Normal 3.5-11.3 [facility] Comment on above: Performed By: #### B MP, CDP, HEPXA #### [address] [address] Rickshaw Driver: Ramsey Rodriguez MD Glucose,Whole Bloodon 05-04- 2024 Glucose [Mass/Vol] 92 mg/dL Normal 75-110 [facility] Glucose [Mass/Vol] 81 mg/dL Normal 75-110 [facility] Glucose [Mass/Vol] 99 mg/dL Normal 75-110 [facility] Glucose [Mass/Vol] 94 mg/dL Normal 75-110 [facility] XR CHEST PORTABLEon 08-24-19 XR CHEST [...] Alex Martinez MD 08/24/23 Final result Normal [facility] Basic Metab w/rfx MGon 08-22 Anion gap [Moles/Vol] 6 mmol/L Low 9-16 [facility] Comment on above: Performed By: #### B EDWARD, TROPI #### [facility] [address] [place], [place] [phone] Rickshaw Driver: Ramsey Rodriguez MD Calcium [Mass/Vol] 8.1 mg/dL Low 8.6-10.4 [facility] Comment on above: Performed By: #### B EDWARD, TROPI #### [facility] [address] [place], [place] [phone] Rickshaw Driver: Ramsey Rodriguez MD Chloride [Moles/Vol] 107 mmol/L Normal 98-[address] [facility] Comment on above: Performed By: #### B MP, TROPI #### [facility] [address] [place] [address] Rickshaw Driver: Ramsey Rodriguez MD CO2 [Moles/Vol] 25 mmol/L Normal 20-31 [facility] Comment on above: Performed By: #### B EDWARD, TROPI #### [facility] [place] [address] Rickshaw Driver: Ramsey Rodriguez MD Creatinine [Mass/Vol] 0.5 mg/dL Low 0.70-1.20 [facility] Comment on above: Performed By: #### B EDWARD, TROPI #### [facility] [address] [place] [phone] Rickshaw Driver: Ramsey Rodriguez MD GFR/1.73 sq M.predicted among non-blacks MDRD (S/P/Bld) [Vol rate/Area] mL/min/{1.73_m2} Normal >60 [facility] Comment on above: Result Comment: These [...] Performed By: #### B EDWARD, TROPI #### [facility] [address] [place] [phone] Rickshaw Driver: Ramsey Rodriguez MD Glucose [Mass/Vol] 111 mg/dL High 74-99 [facility] Comment on above: Performed By: #### B EDWARD, TROPI #### [facility] [address] [place] [address] Rickshaw Driver: Ramsey Rodriguez MD Potassium [Moles/Vol] 4.1 mmol/L Normal 3.7-5.3 [facility] Comment on above: Performed By: #### B EDWARD, TROPI #### [facility] [address] [place] [address] Rickshaw Driver: Ramsey Rodriguez MD Sodium [Moles/Vol] 138 mmol/L Normal 136-145 [facility] [facility] Comment on above: Performed By: #### Nicol LEON TROPI #### [address] [address] Rickshaw Driver: Ramsey Rodriguez MD Urea nitrogen [Mass/Vol] 17 mg/dL Normal 8-23 [facility] Comment on above: Performed By: #### Nicol LEON TROPI #### [place] [address] Rickshaw Driver: Ramsey Rodriguez MD CBC with Diffon 08-23-2023 Abs. Basophil <0.03 Normal 0.00-0.20 [facility] Comment on above: Performed By: #### Nicol LEON TROPI #### [place] [address] Rickshaw Driver: Ramsey Rodriguez MD Abs.Imm.Granulocyte <0.03 Normal 0.00-0.30 [facility] Comment on above: Performed By: #### Nicol LEON TROPI #### [address] [address] Rickshaw Driver: Ramsey Rodriguez MD Abs.Neutrophil (Seg) 4.44 k/uL Normal 1.50-8.[address] [facility] Comment on above: Performed By: #### Nicol LEON TROPI #### [place] [address] Rickshaw Driver: Ramsey Rodriguez MD Basophils/100 WBC (Bld) 0 % Normal 0-2 [facility] Comment on above: Performed By: #### Nicol LEON TROPI #### [address] [address] Rickshaw Driver: Ramsey Rodriguez MD Eosinophils (Bld) [#/Vol] 0.26 10*3/uL Normal 0.00-0.44 [facility] Comment on above: Performed By: #### B MP, TROPI #### [facility] [address] [place] [phone] Rickshaw Driver: Ramsey Rodriguez MD Eosinophils/100 WBC (Bld) 4 % Normal 1-4 [facility] Comment on above: Performed By: #### B MP, TROPI #### [facility] [address] [place] [address] Rickshaw Driver: Ramsey Rodriguez MD Erythrocyte distribution width (RBC) [Ratio] 15.8 % High 11.8-14.4 [facility] Comment on above: Performed By: #### B EDWARD, TROPI #### [facility] [address] [place] [phone] Rickshaw Driver: Ramsey Rodriguez MD Hematocrit (Bld) [Volume fraction] 35.5 % Low 40.7-50.3 [facility] Comment on above: Performed By: #### B EDWARD, TROPI #### [facility] [address] [place] [address] Rickshaw Driver: Ramsey Rodriguez MD Hemoglobin (Bld) [Mass/Vol] 10.8 g/dL Low 13.0-17.0 [facility] Comment on above: Performed By: #### B EDWARD, TROPI #### [facility] [address] [place] [address] Rickshaw Driver: Ramsey Rodriguez MD Immature granulocytes/100 WBC (Bld) 0 % Normal 0 [facility] Comment on above: Performed By: #### B EDWARD, TROPI #### [facility] [address] [place] [address] Rickshaw Driver: Ramsey Rodriguez MD Lymphocytes (Bld) [#/Vol] 0.92 10*3/uL Low 1.10-3.70 [facility] Comment on above: Performed By: #### B EDWARD, TROPI #### [address] [address] Rickshaw Driver: Ramsey Rodriguez MD Lymphocytes/100 WBC (Bld) 15 % Low 24-43 [facility] Comment on above: Performed By: #### B MP, TROPI #### [facility] [address] [place] [address] Rickshaw Driver: Ramsey Rodriguez MD MCH (RBC) [Entitic mass] 30.6 pg Normal 25.2-33.5 [facility] Comment on above: Performed By: #### B EDWARD, TROPI #### [address] [address] Rickshaw Driver: Ramsey Rodriguez MD MCHC (RBC) [Mass/Vol] 30.4 g/dL Normal 28.4-34.8 [facility] Comment on above: Performed By: #### B EDWARD, TROPI #### [address] [address] Rickshaw Driver: Ramsey Rodriguez MD MCV (RBC) [Entitic vol] 100.6 fL Normal 82.6-102.9 [facility] Comment on above: Performed By: #### B EDWARD, TROPI #### [address] [address] Rickshaw Driver: Ramsey Rodriguez MD Monocytes (Bld) [#/Vol] 0.31 10*3/uL Normal 0.10-1.20 [facility] Comment on above: Performed By: #### B MP, TROPI #### [address] [address] Rickshaw Driver: Ramsey Rodriguez MD Monocytes/100 WBC (Bld) 5 % Normal 3-12 [facility] Comment on above: Performed By: #### B MP, TROPI #### [facility] [address] [place] [phone] Rickshaw Driver: Ramsey Rodriguez MD Neutrophil (Seg) 76 % High 36-65 [facility] Comment on above: Performed By: #### B EDWARD, TROPI #### [address] [address] Rickshaw Driver: Ramsey Rodriguez MD NRBC Automated 0.0 per 100 WBC Normal 0.0 [facility] Comment on above: Performed By: #### B MP, TROPI #### [facility] [address] [place] [address] Rickshaw Driver: Ramsey Rodriguez MD Platelet mean volume (Bld) [Entitic vol] 9.9 fL Normal 8.1-13.5 [facility] Comment on above: Performed By: #### B EDWARD, TROPI #### [address] [address] Rickshaw Driver: Ramsey Rodriguez MD Platelets (Bld) [#/Vol] 129 10*3/uL Low 138-453 [facility] Comment on above: Performed By: #### B EDWARD, TROPI #### [address] [address] Rickshaw Driver: Ramsey Rodriguez MD RBC (Bld) [#/Vol] 3.53 10*6/uL Low 4.21-5.77 [facility] Comment on above: Performed By: #### B EDWARD, TROPI #### [address] [address] Rickshaw Driver: Ramsey Rodriguez MD RBC morphology finding Nom (Bld) ANISOCYTOSIS PRESENT Normal [facility] Comment on above: Performed By: #### B MP, TROPI #### [address] [address] Rickshaw Driver: Ramsey Rodriguez MD WBC (Bld) [#/Vol] 6.0 10*3/uL Normal 3.5-11.3 [facility] Comment on above: Performed By: #### B EDWARD TROPI #### [facility] [address] [place] [address] [phone] Rickshaw Driver: Ramsey Rodriguez MD Glucose,Whole Bloodon 2023 Glucose [Mass/Vol] 110 mg/dL Normal 75-110 [facility] Glucose [Mass/Vol] 97 mg/dL Normal 75-110 [facility] Glucose [Mass/Vol] 94 mg/dL Normal 75-110 [facility] Glucose [Mass/Vol] 90 mg/dL Normal 75-110 [facility] Magnesiumon 08-23-2023 Magnesium [Mass/Vol] 2.1 mg/dL Normal 1.6-2.[address] [facility] Comment on above: Performed By: #### B EDWARD TROPI #### [facility] [address] [place] [address] [phone] Rickshaw Driver: Ramsey Rodriguez MD Phosphorus, Inorg.on 024 Phosphorus, Inorg. 1.7 mg/dL Low 2.5-4.5 [facility] Comment on above: Performed By: #### B KAITLYNN LEON #### [address] [phone] Rickshaw Driver: Ramsey Rodriguez MD Basic Metab w/rfx MGon 08-21 Anion gap [Moles/Vol] 8 mmol/L Low 9-16 [facility] Comment on above: Performed By: #### H EPXA, CBC, PTT, PT #### [facility] [address] [place] [address] [phone] Rickshaw Driver: Ramsey Rodriguez MD Calcium [Mass/Vol] 8.3 mg/dL Low 8.6-10.4 [facility] Comment on above: Performed By: #### H EPXA, CBC, PTT, PT #### [facility] [address] [place] [address], [place] [address] Rickshaw Driver: Ramsey Rodriguez MD Chloride [Moles/Vol] 105 mmol/L Normal 98-[address] [facility] Comment on above: Performed By: #### H EPXA, CBC, PTT, PT #### [facility] [address] [place] [phone] Rickshaw Driver: Ramsey Rodriguez MD CO2 [Moles/Vol] 25 mmol/L Normal 20-31 [facility] Comment on above: Performed By: #### H EPXA, CBC, PTT, PT #### [facility] [address] [place] [address] Rickshaw Driver: Ramsey Rodriguez MD Creatinine [Mass/Vol] 0.6 mg/dL Low 0.70-1.20 [facility] Comment on above: Performed By: #### H EPXA, CBC, PTT, PT #### [facility] [address] [place] [phone] Rickshaw Driver: Ramsey Rodriguez MD GFR/1.73 sq M.predicted among non-blacks MDRD (S/P/Bld) [Vol rate/Area] mL/min/{1.73_m2} Normal >60 [facility] Comment on above: Result Comment: These [...] #### H EPXA, CBC, PTT, PT #### [facility] [address] [place] [address] Rickshaw Driver: Ramsey Rodriguez MD Glucose [Mass/Vol] 105 mg/dL High 74-99 [facility] Comment on above: Performed By: #### H EPXA, CBC, PTT, PT #### [facility] [address] [place] [phone] Rickshaw Driver: Ramsey Rodriguez MD Potassium [Moles/Vol] 4.2 mmol/L Normal 3.7-5.3 [facility] Comment on above: Result Comment: SPEC IMEN SLIGHTLY HEMOLYZED, RESULTS MAY BE ADVERSELY AFFECTED. Performed By: #### H EPXA, CBC, PTT, PT #### [facility] [address] [place] [phone] Rickshaw Driver: Ramsey Rodriguez MD Sodium [Moles/Vol] 138 mmol/L Normal 136-145 [facility] Comment on above: Performed By: #### H EPXA, CBC, PTT, PT #### [address] [address] Rickshaw Driver: Ramsey Rodriguez MD Urea nitrogen [Mass/Vol] 25 mg/dL High 8-23 [facility] Comment on above: Performed By: #### H EPXA, CBC, PTT, PT #### [address] [address] Rickshaw Driver: Ramsey Rodriguez MD CBC with Diffon 08-22-2023 Abs. Basophil 0.03 k/uL Normal 0.00-0.20 [facility] Comment on above: Performed By: #### H EPXA, CBC, PTT, PT #### [facility] [address] [place] [phone] Rickshaw Driver: Ramsey Rodriguez MD Abs.Imm.Granulocyte 0.03 k/uL Normal 0.00-0.30 [facility] Comment on above: Performed By: #### H EPXA, CBC, PTT, PT #### [facility] [address] [place] [address] Rickshaw Driver: Ramsey Rodriguez MD Abs.Neutrophil (Seg) 7.03 k/uL Normal 1.50-8.[address] [facility] Comment on above: Performed By: #### H EPXA, CBC, PTT, PT #### [facility] [address] [place] [address] Rickshaw Driver: Ramsey Rodriguez MD Basophils/100 WBC (Bld) 0 % Normal 0-2 [facility] Comment on above: Performed By: #### H EPXA, CBC, PTT, PT #### [facility] [address] [place] [address] Rickshaw Driver: Ramsey Rodriguez MD Eosinophils (Bld) [#/Vol] 0.10 10*3/uL Normal 0.00-0.44 [facility] Comment on above: Performed By: #### H EPXA, CBC, PTT, PT #### [facility] [address] [place] [address] Rickshaw Driver: Ramsey Rodriguez MD Eosinophils/100 WBC (Bld) 1 % Normal 1-4 [facility] Comment on above: Performed By: #### H EPXA, CBC, PTT, PT #### [facility] [address] [place] [phone] Rickshaw Driver: Ramsey Rodriguez MD Erythrocyte distribution width (RBC) [Ratio] 16.0 % High 11.8-14.4 [facility] Comment on above: Performed By: #### H EPXA, CBC, PTT, PT #### [facility] [address] [place] [address] Rickshaw Driver: Ramsey Rodriguez MD Hematocrit (Bld) [Volume fraction] 38.1 % Low 40.7-50.3 [facility] Comment on above: Performed By: #### H EPXA, CBC, PTT, PT #### [facility] [address] [place] [phone] Rickshaw Driver: Ramsey Rodriguez MD Hemoglobin (Bld) [Mass/Vol] 11.9 g/dL Low 13.0-17.0 [facility] Comment on above: Performed By: #### H EPXA, CBC, PTT, PT #### [address] [address] Rickshaw Driver: Ramsey Rodriguez MD Immature granulocytes/100 WBC (Bld) 0 % Normal 0 [facility] Comment on above: Performed By: #### H EPXA, CBC, PTT, PT #### [address] [address] Rickshaw Driver: Ramsey Rodriguez MD Lymphocytes (Bld) [#/Vol] 0.78 10*3/uL Low 1.10-3.70 [facility] Comment on above: Performed By: #### H EPXA, CBC, PTT, PT #### [address] [address] Rickshaw Driver: Ramsey Rodriguez MD Lymphocytes/100 WBC (Bld) 9 % Low 24-43 [facility] Comment on above: Performed By: #### H EPXA, CBC, PTT, PT #### [address] [address] Rickshaw Driver: Ramsey Rodriguez MD MCH (RBC) [Entitic mass] 30.8 pg Normal 25.2-33.5 [facility] Comment on above: Performed By: #### H EPXA, CBC, PTT, PT #### [facility] [address] [place] [address] Rickshaw Driver: Ramsey Rodriguez MD MCHC (RBC) [Mass/Vol] 31.2 g/dL Normal 28.4-34.8 [facility] Comment on above: Performed By: #### H EPXA, CBC, PTT, PT #### [facility] [address] [place] [address] [phone] Rickshaw Driver: Ramsey Rodriguez MD MCV (RBC) [Entitic vol] 98.7 fL Normal 82.6-102.9 [facility] Comment on above: Performed By: #### H EPXA, CBC, PTT, PT #### [address] [address] Rickshaw Driver: Ramsey Rodriguez MD Monocytes (Bld) [#/Vol] 0.32 10*3/uL Normal 0.10-1.20 [facility] Comment on above: Performed By: #### H EPXA, CBC, PTT, PT #### [address] [address] Rickshaw Driver: Ramsey Rodriguez MD Monocytes/100 WBC (Bld) 4 % Normal 3-12 [facility] Comment on above: Performed By: #### H EPXA, CBC, PTT, PT #### [address] [address] Rickshaw Driver: Ramsey Rodriguez MD Neutrophil (Seg) 86 % High 36-65 [facility] Comment on above: Performed By: #### H EPXA, CBC, PTT, PT #### [address] [address] Rickshaw Driver: Ramsey Rodriguez MD NRBC Automated 0.0 per 100 WBC Normal 0.0 [facility] Comment on above: Performed By: #### H EPXA, CBC, PTT, PT #### [address] [address] Rickshaw Driver: Ramsey Rodriguez MD Platelet mean volume (Bld) [Entitic vol] 10.1 fL Normal 8.1-13.5 [facility] Comment on above: Performed By: #### H EPXA, CBC, PTT, PT #### [address] [address] Rickshaw Driver: Ramsey Rodriguez MD Platelets (Bld) [#/Vol] 140 10*3/uL Normal 138-453 [facility] Comment on above: Performed By: #### H EPXA, CBC, PTT, PT #### [facility] [address] [place] [address] Rickshaw Driver: Ramsey Rodriguez MD RBC (Bld) [#/Vol] 3.86 10*6/uL Low 4.21-5.77 [facility] Comment on above: Performed By: #### H EPXA, CBC, PTT, PT #### [facility] [address] [place] [address] Rickshaw Driver: Ramsey Rodriguez MD RBC morphology finding Nom (Bld) ANISOCYTOSIS PRESENT Normal [facility] Comment on above: Performed By: #### H EPXA, CBC, PTT, PT #### [facility] [address] [place] [phone] Rickshaw Driver: Ramsey Rodriguez MD WBC (Bld) [#/Vol] 8.3 10*3/uL Normal 3.5-11.3 [facility] Comment on above: Performed By: #### H EPXA, CBC, PTT, PT #### [facility] [address] [place] [address] Rickshaw Driver: Ramsey Rodriguez MD Glucose,Whole Bloodon 2023 Glucose [Mass/Vol] 127 mg/dL High 75-110 [facility] Glucose [Mass/Vol] 125 mg/dL High 75-110 [facility] Glucose [Mass/Vol] 112 mg/dL High 75-110 [facility] Glucose [Mass/Vol] 84 mg/dL Normal 75-110 [facility] Glucose [Mass/Vol] 86 mg/dL Normal 75-110 [facility] Glucose [Mass/Vol] 96 mg/dL Normal 75-110 [facility] Magnesiumon 08-22-2023 Magnesium [Mass/Vol] 1.8 mg/dL Normal 1.6-2.[address] [facility] Comment on above: Performed By: #### H EPXA, CBC, PTT, PT #### [facility] [address] [place] [phone] Rickshaw Driver: Ramsey Rodriguez MD Phosphorus, Inorg.on 024 Phosphorus, Inorg. 2.2 mg/dL Low 2.5-4.5 [facility] Comment on above: Performed By: #### H EPXA, CBC, PTT, PT #### [facility] [address] [place] [phone] Rickshaw Driver: Ramsey Rodriguez MD Basic Metab w/rfx MGon 08-20 Anion gap [Moles/Vol] 10 mmol/L Normal 9-16 [facility] Comment on above: Performed By: #### H EPXA, CBC, PTT, PT #### [address] [address] Rickshaw Driver: Ramsey Rodriguez MD Calcium [Mass/Vol] 9.0 mg/dL Normal 8.6-10.4 [facility] Comment on above: Performed By: #### H EPXA, CBC, PTT, PT #### [facility] [address] [place] [address] Rickshaw Driver: Ramsey Rodriguez MD Chloride [Moles/Vol] 105 mmol/L Normal 98-[address] [facility] Comment on above: Performed By: #### H EPXA, CBC, PTT, PT #### [facility] [address] [place] [phone] Rickshaw Driver: Ramsey Rodriguez MD CO2 [Moles/Vol] 27 mmol/L Normal 20-31 [facility] Comment on above: Performed By: #### H EPXA, CBC, PTT, PT #### [facility] [address] [place] [address] Rickshaw Driver: Ramsey Rodriguez MD Creatinine [Mass/Vol] 0.7 mg/dL Normal 0.70-1.20 [facility] Comment on above: Performed By: #### H EPXA, CBC, PTT, PT #### [facility] [address] [place] [address] Rickshaw Driver: Ramsey Rodriguez MD GFR/1.73 sq M.predicted among non-blacks MDRD (S/P/Bld) [Vol rate/Area] 89 mL/min/{1.73_m2} Normal >60 [facility] Comment on above: Result Comment: These [...] #### H EPXA, CBC, PTT, PT #### [facility] [address] [place] [phone] Rickshaw Driver: Ramsey Rodriguez MD Glucose [Mass/Vol] 146 mg/dL High 74-99 [facility] Comment on above: Performed By: #### H EPXA, CBC, PTT, PT #### [facility] [address] [place] [address] Rickshaw Driver: Ramsey Rodriguez MD Potassium [Moles/Vol] 4.4 mmol/L Normal 3.7-5.3 [facility] Comment on above: Performed By: #### H EPXA, CBC, PTT, PT #### [facility] [address] [place] [address] Rickshaw Driver: Ramsey Rodriguez MD Sodium [Moles/Vol] 142 mmol/L Normal 136-145 [facility] Comment on above: Performed By: #### H EPXA, CBC, PTT, PT #### [facility] [address] [place] [address] Rickshaw Driver: Ramsey Rodriguez MD Urea nitrogen [Mass/Vol] 25 mg/dL High 8-23 [facility] Comment on above: Performed By: #### H EPXA, CBC, PTT, PT #### [facility] [address] [place] [phone] Rickshaw Driver: Ramsey Rodriguez MD CBC with Diffon 08-21-2023 Abs. Basophil 0.00 k/uL Normal 0.0-0.2 [facility] Comment on above: Performed By: #### H EPXA, CBC, PTT, PT #### [facility] [address] [place] [phone] Rickshaw Driver: Ramsey Rodriguez MD Abs.Imm.Granulocyte 0.00 k/uL Normal 0.00-0.30 [facility] Comment on above: Performed By: #### H EPXA, CBC, PTT, PT #### [place] [address] Rickshaw Driver: Ramsey Rodriguez MD Abs.Neutrophil (Seg) 10.86 k/uL High 1.8-7.[address] [facility] Comment on above: Performed By: #### H EPXA, CBC, PTT, PT #### [facility] [address] [place] [address] Rickshaw Driver: Ramsey Rodriguez MD Basophils/100 WBC (Bld) 0 % Normal 0-2 [facility] Comment on above: Performed By: #### H EPXA, CBC, PTT, PT #### [facility] [address] [place] [address] Rickshaw Driver: Ramsey Rodriguez MD Eosinophils (Bld) [#/Vol] 0.00 10*3/uL Normal 0.0-0.4 [facility] Comment on above: Performed By: #### H EPXA, CBC, PTT, PT #### [facility] [address] [place] [phone] Rickshaw Driver: Ramsey Rodriguez MD Eosinophils/100 WBC (Bld) 0 % Low 1-4 [facility] Comment on above: Performed By: #### H EPXA, CBC, PTT, PT #### [facility] [address] [place] [phone] Rickshaw Driver: Ramsey Rodriguez MD Immature granulocytes/100 WBC (Bld) 0 % Normal 0 [facility] Comment on above: Performed By: #### H EPXA, CBC, PTT, PT #### [facility] [address] [place] [address] Rickshaw Driver: Ramsey Rodriguez MD Lymphocytes (Bld) [#/Vol] 0.73 10*3/uL Low 1.0-4.8 [facility] Comment on above: Performed By: #### H EPXA, CBC, PTT, PT #### [address] [address] Rickshaw Driver: Ramsey Rodriguez MD Lymphocytes/100 WBC (Bld) 6 % Low 24-44 [facility] Comment on above: Performed By: #### H EPXA, CBC, PTT, PT #### [facility] [address] [place] [address] Rickshaw Driver: Ramsey Rodriguez MD Monocytes (Bld) [#/Vol] 0.61 10*3/uL Normal 0.1-0.8 [facility] Comment on above: Performed By: #### H EPXA, CBC, PTT, PT #### [facility] [address] [place] [address] Rickshaw Driver: Ramsey Rodriguez MD Monocytes/100 WBC (Bld) 5 % Normal 1-7 [facility] Comment on above: Performed By: #### H EPXA, CBC, PTT, PT #### [facility] [address] [place] [phone] Rickshaw Driver: Ramsey Rodriguez MD Morphology [place] (Bld) [Interp] ANISOCYTOSIS PRESENT Normal [facility] Comment on above: Performed By: #### H EPXA, CBC, PTT, PT #### [facility] [address] [place] [address] Rickshaw Driver: Ramsey Rodriguez MD Neutrophil (Seg) 89 % High 36-66 [facility] Comment on above: Performed By: #### H EPXA, CBC, PTT, PT #### [facility] [address] [place] [phone] Rickshaw Driver: Ramsey Rodriguez MD Erythrocyte distribution width (RBC) [Ratio] 15.7 % High 11.8-14.4 [facility] Comment on above: Performed By: #### H EPXA, CBC, PTT, PT #### [facility] [address] [place] [address] Rickshaw Driver: Ramsey Rodriguez MD Hematocrit (Bld) [Volume fraction] 40.8 % Normal 40.7-50.3 [facility] Comment on above: Performed By: #### H EPXA, CBC, PTT, PT #### [facility] [address] [place] [phone] Rickshaw Driver: Ramsey Rodriguez MD Hemoglobin (Bld) [Mass/Vol] 13.2 g/dL Normal 13.0-17.0 [facility] Comment on above: Performed By: #### H EPXA, CBC, PTT, PT #### [facility] [address] [place] [address] Rickshaw Driver: Ramsey Rodriguez MD MCH (RBC) [Entitic mass] 30.3 pg Normal 25.2-33.5 [facility] Comment on above: Performed By: #### H EPXA, CBC, PTT, PT #### [facility] [address] [place] [phone] Rickshaw Driver: Ramsey Rodriguez MD MCHC (RBC) [Mass/Vol] 32.4 g/dL Normal 28.4-34.8 [facility] Comment on above: Performed By: #### H EPXA, CBC, PTT, PT #### [address] [address] Rickshaw Driver: Ramsey Rodriguez MD MCV (RBC) [Entitic vol] 93.8 fL Normal 82.6-102.9 [facility] [facility] Comment on above: Performed By: #### H EPXA, CBC, PTT, PT #### [address] [address] Rickshaw Driver: Ramsey Rodriguez MD NRBC Automated 0.0 per 100 WBC Normal 0.0 [facility] Comment on above: Performed By: #### H EPXA, CBC, PTT, PT #### [address] [address] Rickshaw Driver: Ramsey Rodriguez MD Platelet mean volume (Bld) [Entitic vol] 10.0 fL Normal 8.1-13.5 [facility] Comment on above: Performed By: #### H EPXA, CBC, PTT, PT #### [address] [address] Rickshaw Driver: Ramsey Rodriguez MD Platelets (Bld) [#/Vol] 197 10*3/uL Normal 138-453 [facility] Comment on above: Performed By: #### H EPXA, CBC, PTT, PT #### [address] [address] Rickshaw Driver: Ramsey Rodriguez MD RBC (Bld) [#/Vol] 4.35 10*6/uL Normal 4.21-5.77 [facility] Comment on above: Performed By: #### H EPXA, CBC, PTT, PT #### [address] [address] Rickshaw Driver: Ramsey Rodriguez MD WBC (Bld) [#/Vol] 12.2 10*3/uL High 3.5-11.3 [facility] Comment on above: Performed By: #### H EPXA, CBC, PTT, PT #### [address] [phone] Rickshaw Driver: Ramsey Rodriguez MD Glucose,Whole Bloodon 2023 Glucose [Mass/Vol] 124 mg/dL High 75-110 [facility] Glucose [Mass/Vol] 95 mg/dL Normal 75-110 [facility] Magnesiumon 08-21-2023 Magnesium [Mass/Vol] 2.0 mg/dL Normal 1.6-2.[address] [facility] Comment on above: Performed By: #### H EPXA, CBC, PTT, PT #### [address] [phone] Rickshaw Driver: Ramsey Rodriguez MD Phosphorus, Inorg.on 024 Phosphorus, Inorg. 3.9 mg/dL Normal 2.5-4.5 [facility] Comment on above: Performed By: #### H EPXA, CBC, PTT, PT #### [facility] [employer] [address] [place] [address] [phone] Rickshaw Driver: Ramsey Rodriguez MD Type + Screenon 08-21-2023 Type + Screen Sample Expiration 08/24/2023,2359 Arm Band Number BE [id number] ABO/Rh(D) O NEGATIVE Antibody Screen NEGATIVE Normal [facility] Comment on above: Performed By: #### H EPXA, CBC, PTT, PT #### [facility] [employer] [address] [place] [address] [phone] Rickshaw Driver: Ramsey Rodriguez MD XR CHEST PORTABLEon 08-21-19 [...] Dave Burns MD 08/21/23 Final result Normal [facility] Basophils Auto (Bld) [#/Vol] on 08-20-2023 Basophils (Bld) [#/Vol] 0.1 10 3/uL 0.0-0.1 [facility] Basophils/100 WBC Auto (Bld) on 08-20-2023 Basophils/100 WBC (Bld) 0.3 % 0.2-2.0 [facility] Bilirubin Auto test strip (U ) [Mass/Vol]on 08-20-2023 Bilirubin (U) [Mass/Vol] Negative NEGATIVE [facility] CBC with Diffon 08-20-2023 Abs. Basophil 0.00 k/uL Normal 0.0-0.2 [facility] Comment on above: Performed By: #### H EPXA, CBC, PTT, PT #### [employer] [address] [place] [address] Rickshaw Driver: Ramsey Rodriguez MD Abs.Imm.Granulocyte 0.00 k/uL Normal 0.00-0.30 [facility] Comment on above: Performed By: #### H EPXA, CBC, PTT, PT #### [employer] [address] [place] [address] Rickshaw Driver: Ramsey Rodriguez MD Abs.Neutrophil (Seg) 12.60 k/uL High 1.8-7.[address] [facility] Comment on above: Performed By: #### H EPXA, CBC, PTT, PT #### [employer] [address] [place] [phone] Rickshaw Driver: Ramsey Rodriguez MD Basophils/100 WBC (Bld) 0 % Normal 0-2 [facility] Comment on above: Performed By: #### H EPXA, CBC, PTT, PT #### [employer] [address] [place] [phone] Rickshaw Driver: Ramsey Rodriguez MD Eosinophils (Bld) [#/Vol] 0.00 10*3/uL Normal 0.0-0.4 [facility] Comment on above: Performed By: #### H EPXA, CBC, PTT, PT #### [address] [address] Rickshaw Driver: Ramsey Rodriguez MD Eosinophils/100 WBC (Bld) 0 % Low 1-4 [facility] Comment on above: Performed By: #### H EPXA, CBC, PTT, PT #### [address] [address] Rickshaw Driver: Ramsey Rodriguez MD Immature granulocytes/100 WBC (Bld) 0 % Normal 0 [facility] Comment on above: Performed By: #### H EPXA, CBC, PTT, PT #### [address] [address] Rickshaw Driver: Ramsey Rodriguez MD Lymphocytes (Bld) [#/Vol] 0.67 10*3/uL Low 1.0-4.8 [facility] Comment on above: Performed By: #### H EPXA, CBC, PTT, PT #### [address] [address] Rickshaw Driver: Ramsey Rodriguez MD Lymphocytes/100 WBC (Bld) 5 % Low 24-44 [facility] Comment on above: Performed By: #### H EPXA, CBC, PTT, PT #### [facility] [employer] [address] [place] [phone] Rickshaw Driver: Ramsey Rodriguez MD Monocytes (Bld) [#/Vol] 0.13 10*3/uL Normal 0.1-0.8 [facility] Comment on above: Performed By: #### H EPXA, CBC, PTT, PT #### [address] [address] Rickshaw Driver: Ramsey Rodriguez MD Monocytes/100 WBC (Bld) 1 % Normal 1-7 [facility] Comment on above: Performed By: #### H EPXA, CBC, PTT, PT #### [address] [address] Rickshaw Driver: Ramsey Rodriguez MD Morphology Edmond (Bld) [Interp] ANISOCYTOSIS PRESENT Normal [facility] Comment on above: Performed By: #### H EPXA, CBC, PTT, PT #### [address] [address] Rickshaw Driver: Ramsey Rodriguez MD Neutrophil (Seg) 94 % High 36-66 [facility] Comment on above: Performed By: #### H EPXA, CBC, PTT, PT #### [facility] [employer] [address] [place] [phone] Rickshaw Driver: Ramsey Rodriguez MD Erythrocyte distribution width (RBC) [Ratio] 15.6 % High 11.8-14.4 [facility] Comment on above: Performed By: #### H EPXA, CBC, PTT, PT #### [address] [address] Rickshaw Driver: Ramsey Rodriguez MD Hematocrit (Bld) [Volume fraction] 43.6 % Normal 40.7-50.3 [facility] Comment on above: Performed By: #### H EPXA, CBC, PTT, PT #### [facility] [employer] [address] [place] [phone] Rickshaw Driver: Ramsey Rodriguez MD Hemoglobin (Bld) [Mass/Vol] 14.0 g/dL Normal 13.0-17.0 [facility] Comment on above: Performed By: #### H EPXA, CBC, PTT, PT #### [employer] [address] Rickshaw Driver: Ramsey Rodriguez MD MCH (RBC) [Entitic mass] 30.6 pg Normal 25.2-33.5 [facility] Comment on above: Performed By: #### H EPXA, CBC, PTT, PT #### [address] [address] Rickshaw Driver: Ramsey Rodriguez MD MCHC (RBC) [Mass/Vol] 32.1 g/dL Normal 28.4-34.8 [facility] Comment on above: Performed By: #### H EPXA, CBC, PTT, PT #### [address] [address] Rickshaw Driver: Ramsey Rodriguez MD MCV (RBC) [Entitic vol] 95.2 fL Normal 82.6-102.9 [facility] Comment on above: Performed By: #### H EPXA, CBC, PTT, PT #### [address] [address] Rickshaw Driver: Ramsey Rodriguez MD NRBC Automated 0.0 per 100 WBC Normal 0.0 [facility] Comment on above: Performed By: #### H EPXA, CBC, PTT, PT #### [address] [address] Rickshaw Driver: Ramsey Rodriguez MD Platelet mean volume (Bld) [Entitic vol] 10.1 fL Normal 8.1-13.5 [facility] Comment on above: Performed By: #### H EPXA, CBC, PTT, PT #### [address] [address] Rickshaw Driver: Ramsey Rodriguez MD Platelets (Bld) [#/Vol] 200 10*3/uL Normal 138-453 [facility] Comment on above: Performed By: #### H EPXA, CBC, PTT, PT #### [facility] [address] [place] [address] Rickshaw Driver: Ramsey Rodriguez MD RBC (Bld) [#/Vol] 4.58 10*6/uL Normal 4.21-5.77 [facility] Comment on above: Performed By: #### H EPXA, CBC, PTT, PT #### [address] [address] Rickshaw Driver: Ramsey Rodriguez MD WBC (Bld) [#/Vol] 13.4 10*3/uL High 3.5-11.3 [facility] Comment on above: Performed By: #### H EPXA, CBC, PTT, PT #### [facility] [employer] [address] [place] [phone] Rickshaw Driver: Ramsey Rodriguez MD Comp Metabolic Profon 2023 Albumin [Mass/Vol] 3.5 g/dL Normal 3.5-5.2 [facility] Comment on above: Performed By: #### H EPXA, CBC, PTT, PT #### [address] [address] Rickshaw Driver: Ramsey Rodriguez MD Albumin/Glob Ratio 1.0 Normal 1.0-2.5 [facility] Comment on above: Performed By: #### H EPXA, CBC, PTT, PT #### [facility] [employer] [address] [place] [phone] Rickshaw Driver: Ramsey Rodriguez MD Alkaline Phos 93 U/L Normal 40-129 [facility] Comment on above: Performed By: #### H EPXA, CBC, PTT, PT #### [facility] [employer] [address] [place] [phone] Rickshaw Driver: Ramsey Rodriguez MD ALT [Catalytic activity/Vol] 58 U/L High 10-50 [facility] Comment on above: Performed By: #### H EPXA, CBC, PTT, PT #### [facility] [employer] [address] [place] [phone] Rickshaw Driver: Ramsey Rodriguez MD Anion gap [Moles/Vol] 12 mmol/L Normal 9-16 [facility] Comment on above: Performed By: #### H EPXA, CBC, PTT, PT #### [facility] [employer] [address] [place] [phone] Rickshaw Driver: Ramsey Rodriguez MD AST [Catalytic activity/Vol] 75 U/L High 10-50 [facility] Comment on above: Result Comment: SPEC IMEN SLIGHTLY HEMOLYZED, RESULTS MAY BE ADVERSELY AFFECTED. Performed By: #### H EPXA, CBC, PTT, PT #### [facility] [employer] [address] [place] [phone] Rickshaw Driver: Ramsey Rodriguez MD Bilirubin [Mass/Vol] 1.1 mg/dL Normal 0.00-1.[address] [facility] Comment on above: Performed By: #### H EPXA, CBC, PTT, PT #### [facility] [employer] [address] [place] [phone] Rickshaw Driver: Ramsey Rodriguez MD Calcium [Mass/Vol] 9.1 mg/dL Normal 8.6-10.4 [facility] Comment on above: Performed By: #### H EPXA, CBC, PTT, PT #### [facility] [address] [place] [phone] Rickshaw Driver: Ramsey Rodriguez MD Chloride [Moles/Vol] 100 mmol/L Normal 98-[address] [facility] Comment on above: Performed By: #### H EPXA, CBC, PTT, PT #### [facility] [employer] [address] [place] [phone] Rickshaw Driver: Ramsey Rodriguez MD CO2 [Moles/Vol] 25 mmol/L Normal 20-31 [facility] Comment on above: Performed By: #### H EPXA, CBC, PTT, PT #### [facility] [employer] [address] [place] [phone] Rickshaw Driver: Ramsey Rodriguez MD Creatinine [Mass/Vol] 0.8 mg/dL Normal 0.70-1.20 [facility] Comment on above: Performed By: #### H EPXA, CBC, PTT, PT #### [address] [address] Rickshaw Driver: Ramsey Rodriguez MD GFR/1.73 sq M.predicted among non-blacks MDRD (S/P/Bld) [Vol rate/Area] 87 mL/min/{1.73_m2} Normal >60 [facility] Comment on above: Result Comment: These [...] #### H EPXA, CBC, PTT, PT #### [facility] [employer] [address] [place] [phone] Rickshaw Driver: Ramsey Rodriguez MD Glucose [Mass/Vol] 208 mg/dL High 74-99 [facility] Comment on above: Performed By: #### H EPXA, CBC, PTT, PT #### [facility] [employer] [address] [place] [phone] Rickshaw Driver: Ramsey Rodriguez MD Potassium [Moles/Vol] 4.4 mmol/L Normal 3.7-5.3 [facility] Comment on above: Result Comment: SPEC IMEN SLIGHTLY HEMOLYZED, RESULTS MAY BE ADVERSELY AFFECTED. Performed By: #### H EPXA, CBC, PTT, PT #### [facility] [employer] [address] [place] [phone] Rickshaw Driver: Ramsey Rodriguez MD Protein [Mass/Vol] 7.9 g/dL Normal 6.6-8.7 [facility] Comment on above: Performed By: #### H EPXA, CBC, PTT, PT #### [employer] [facility] [address] [place], [place] [phone] Rickshaw Driver: Ramsey Rodriguez MD Sodium [Moles/Vol] 137 mmol/L Normal 136-145 [facility] Comment on above: Performed By: #### H EPXA, CBC, PTT, PT #### [employer] [address] [place], [place] [phone] Rickshaw Driver: Ramsey Rodriguez MD Urea nitrogen [Mass/Vol] 26 mg/dL High 8-23 [facility] Comment on above: Performed By: #### H EPXA, CBC, PTT, PT #### [facility] [place], [place] [phone] Rickshaw Driver: Ramsey Rodriguez MD Eosinophils/100 WBC Auto (Bl d)on 08-20-2023 Eosinophils/100 WBC (Bld) 0.1 % 0.9-7.0 [facility] Erythrocyte distribution wid th Auto (RBC) [Ratio]on 08-20-2023 Erythrocyte distribution width (RBC) [Ratio] 15.2 % 11.0-15.0 [facility] Estimated glomerular filtrat ion rate (GFR) non- Americanon 08-20-2023 GFR/1.73 sq M.predicted among non-blacks MDRD (S/P/Bld) [Vol rate/Area] mL/min/{1.73_m2} >=60 [facility] Globulin Calc (S) [Mass/Vol] on 08-20-2023 Globulin (S) [Mass/Vol] 5.3 g/dL [facility] Hematocrit Auto (Bld) [Volum e fraction]on 08-20-2023 Hematocrit (Bld) [Volume fraction] 40.8 % 42.0-54.0 [facility] Hemoglobin [Mass/volume] in Bloodon 08-20-2023 Hemoglobin (Bld) [Mass/Vol] 13.3 g/dL 14.0-18.0 [facility] Laboratory - Chemistry and C hemistry - challengeon 08-20-2023 Glucose (U) [Mass/Vol] Negative NEGATIVE [facility] Ketones Ql (U) Negative NEGATIVE [facility] pH (U) 5.0 [pH] 5.0-9.0 [facility] Specific gravity (U) [Rel density] 1.020 1.005-1.025 [facility] Urobilinogen Qn (U) 0.2 {Amy'U}/dL 0.2-1.0 [facility] Albumin [Mass/Vol] 3.2 g/dL 3.4-5.0 [facility] ALP [Catalytic activity/Vol] 104 U/L 46-116 [facility] ALT [Catalytic activity/Vol] 74 U/L 16-63 [facility] AST [Catalytic activity/Vol] 67 U/L 15-37 [facility] Bilirubin [Mass/Vol] 1.3 mg/dL 0.2-1.0 [facility] Calcium [Mass/Vol] 9.7 mg/dL 8.5-10.1 [facility] Chloride [Moles/Vol] 100 mmol/L 98-107 [facility] CO2 [Moles/Vol] 28.2 mmol/L 21.0-32.0 [facility] Creatinine [Mass/Vol] 1.05 mg/dL 0.70-1.30 [facility] GFR/1.73 sq M.predicted MDRD (S/P/Bld) [Vol rate/Area] mL/min/{1.73_m2} >=60 [facility] Glucose [Mass/Vol] 202 mg/dL 74-106 [facility] Lipase [Catalytic activity/Vol] 18.0 U/L 16.0-77.0 [facility] Natriuretic peptide B (Bld) [Mass/Vol] 470.0 pg/mL <=1800.0 [facility] Potassium [Moles/Vol] 3.6 mmol/L 3.5-5.1 [facility] Protein [Mass/Vol] 8.5 g/dL 6.4-8.2 [facility] Sodium [Moles/Vol] 137 mmol/L 136-145 [facility] Urea nitrogen [Mass/Vol] 30.0 mg/dL 7.0-18.0 [facility] Urea nitrogen/Creatinine [Mass ratio] 28.6 mg/mg [facility] Laboratory - Hematology and Cell countson 08-20-2023 Immature granulocytes/100 WBC (Bld) 0.4 % 0.0-0.5 [facility] Laboratory - Specimen inform ationon 08-20-2023 Appearance (U) CLEAR CLEAR [facility] Color (U) YELLOW YELLOW [facility] Laboratory - Urinalysison Leukocyte esterase Test strip Ql (U) Negative NEGATIVE [facility] Nitrite Ql (U) Negative NEGATIVE [facility] Protein Ql (U) Negative NEG/TRACE [facility] Lactic Acidon 08-20-2023 Lactic Acid,Whole Bl 3.6 mmol/L High 0.7-2.[address] [facility] Comment on above: Performed By: #### H EPXA, CBC, PTT, PT #### [facility] [employer] [facility] [place] [address] Rickshaw Driver: Ramsey Rodriguez MD Leukocytes [#/volume] correc александр for nucleated erythrocytes in Blood by Automated counon 08-20-2023 WBC corrected for nucl RBC Auto (Bld) [#/Vol] 15.6 10 3/uL 4.0-11.0 [facility] Lymphocytes Auto (Bld) [#/Vo l]on 08-20-2023 Lymphocytes (Bld) [#/Vol] 1.5 10 3/uL 1.2-3.8 [facility] Lymphocytes/100 WBC Auto (Bl d)on 08-20-2023 Lymphocytes/100 WBC (Bld) 9.6 % 20.5-60.0 [facility] MCH Auto (RBC) [Entitic mass ]on 08-20-2023 MCH (RBC) [Entitic mass] 30.6 pg 25.9-34.0 [facility] MCHC Auto (RBC) [Mass/Vol]on 08-20-2023 MCHC (RBC) [Mass/Vol] 32.6 g/dL 29.9-35.2 [facility] MCV Auto (RBC) [Entitic vol] on 08-20-2023 MCV (RBC) [Entitic vol] 93.8 fL 80.0-94.0 [facility] Magnesiumon 08-20-2023 Magnesium [Mass/Vol] 2.0 mg/dL Normal 1.6-2.[address] [facility] Comment on above: Performed By: #### H EPXA, CBC, PTT, PT #### [employer] [address] [place] [address] Rickshaw Driver: Ramsey Rodriguez MD Monocytes Auto (Bld) [#/Vol] on 08-20-2023 Monocytes (Bld) [#/Vol] 0.5 10 3/uL 0.3-0.8 [facility] Monocytes/100 WBC Auto (Bld) on 08-20-2023 Monocytes/100 WBC (Bld) 3.2 % 1.7-12.0 [facility] Neutrophils Auto (Bld) [#/Vo l]on 08-20-2023 Neutrophils (Bld) [#/Vol] 13.4 10 3/uL 1.4-6.5 [facility] Neutrophils/100 WBC Auto (Bl d)on 08-20-2023 Neutrophils/100 WBC (Bld) 86.4 % 43.0-75.0 [facility] No Panel Informationon 08-19 Urine Microscopic Review NO [facility] Eosinophils # (Auto) 0.0 10 3/uL 0.0-0.7 [facility] Immature Granulocyte # (Auto) 0.06 10 3/uL 0.00-0.03 [facility] Platelet mean volume Auto (B ld) [Entitic vol]on 08-20-2023 Platelet mean volume (Bld) [Entitic vol] 9.8 fL 9.5-13.5 [facility] Platelets Auto (Bld) [#/Vol] on 08-20-2023 Platelets (Bld) [#/Vol] 220 10 3/uL 150-450 [facility] RBC Auto (Bld) [#/Vol]on RBC (Bld) [#/Vol] 4.35 10 6/uL 4.70-6.10 [facility] Serum or plasma albumin/glob ulin mass ratioon 08-20-2023 Albumin/Globulin [Mass ratio] 0.6 {ratio} [facility] Serum or plasma anion gap de terminationon 08-20-2023 Anion gap [Moles/Vol] 12.4 mmol/L [facility] Urine hemoglobin detection b y automated test stripon 08-20-2023 Hemoglobin Auto test strip Ql (U) Negative NEGATIVE [facility] XR CHEST PORTABLEon 08-20-19 XR CHEST [...] Amada Rosario MD 08/20/23 Final result Normal [facility] CBC AUTO DIFFon 08-15-2022 BASO # 0.0 103/ul Normal 0.0-0.1 [facility] Comment on above: Performed By: #### C BC #### [facility] [address] [place] [address] Dr. Emily Lauren Basophils/100 WBC (Bld) 0.3 % Normal 0.2-2.0 [facility] Comment on above: Performed By: #### C BC #### [facility] [address] [place] [address] Dr. Emily Lauren EO # 0.2 103/ul Normal 0.0-0.7 [facility] Comment on above: Performed By: #### C BC #### [facility] [address] [place] [address] Dr. Emily Lauren Eosinophils/100 WBC (Bld) 3.1 % Normal 0.9-7.0 [facility] Comment on above: Performed By: #### C BC #### [facility] [address] [place] [address] Dr. Emily Lauren Erythrocyte distribution width (RBC) [Ratio] 14.9 % Normal 11.0-15.0 [facility] Comment on above: Performed By: #### C BC #### [facility] [address] [place] [address] Dr. Emily Lauren Hematocrit (Bld) [Volume fraction] 39.9 % Critically low 42.0-54.0 [facility] Comment on above: Performed By: #### C BC #### [facility] [address] [place] [address] Dr. Emily Luaren Hemoglobin (Bld) [Mass/Vol] 12.9 g/dL Critically low 14.0-18.0 [facility] Comment on above: Performed By: #### C BC #### [facility] [address] [place] [address] Dr. Emily Lauren IG # 0.02 10e3/ul Normal 0.00-0.03 [facility] Comment on above: Performed By: #### C BC #### [facility] [address] [place] [address] Dr. Emily Lauren IG % 0.3 % Normal 0.0-0.5 [facility] Comment on above: Performed By: #### C BC #### [facility] [address] [place] [address] Dr. Emily Lauren LYMPH # 2.4 103/ul Normal 1.2-3.8 [facility] Comment on above: Performed By: #### C BC #### [facility] [address] [place] [address] Dr. Emily Lauren Lymphocytes/100 WBC (Bld) 30.7 % Normal 20.5-60.0 [facility] Comment on above: Performed By: #### C BC #### [facility] [address] [place] [address] Dr. Emily Lauren MANUAL DIFF REQ NO Normal [facility] Comment on above: Performed By: #### C BC #### [facility] [address] [place] [address] Dr. Emily Lauren MCH (RBC) [Entitic mass] 30.4 pg Normal 25.9-34.0 [facility] Comment on above: Performed By: #### C BC #### [facility] [address] [place] [address] Dr. Emily Lauren MCHC (RBC) [Mass/Vol] 32.3 g/dL Normal 29.9-35.2 [facility] Comment on above: Performed By: #### C BC #### [facility] [address] [place] [address] Dr. Emily Lauren MCV (RBC) [Entitic vol] 94.1 fL Critically high 80.0-94.0 [facility] Comment on above: Performed By: #### C BC #### [facility] [address] [place] [address] Dr. Emily Lauren MONO # 0.5 103/ul Normal 0.3-0.8 [facility] Comment on above: Performed By: #### C BC #### [facility] [address] [place] [address] Dr. Emily Lauren Monocytes/100 WBC (Bld) 5.9 % Normal 1.7-12.0 [facility] Comment on above: Performed By: #### C BC #### [facility] [address] [place] [address] Dr. Emily Lauren NEUT # 4.6 103/ul Normal 1.4-6.5 [facility] Comment on above: Performed By: #### C BC #### [facility] [address] [place] [address] Dr. Emily Lauren Neutrophils/100 WBC (Bld) 59.7 % Normal 43.0-75.0 [facility] Comment on above: Performed By: #### C BC #### [facility] [address] [place] [address] Dr. Emily Lauren Platelet mean volume (Bld) [Entitic vol] 9.7 fL Normal 9.5-13.5 [facility] Comment on above: Performed By: #### C BC #### [facility] [address] [place] [address] Dr. Emily Lauren PLT 176 103/ul Normal 150-450 [facility] Comment on above: Performed By: #### C BC #### [facility] [address] [address] [address] Emily Lauren RBC 4.24 106/ul Critically low 4.70-6.10 [facility] Comment on above: Performed By: #### C BC #### [facility] [address] [address] [address] Emliy Lauren WBC 7.7 103/ul Normal 4.0-11.0 [facility] Comment on above: Performed By: #### C BC #### [facility] [address] [place] [address] Dr. Emily Lauren PROF 14(COMP METB)on 023 Albumin [Mass/Vol] 3.4 g/dL Normal 3.4-5.0 [facility] Comment on above: Performed By: #### C MP #### [facility] [address] [place] [address] Dr. Emily Lauren Albumin/Globulin [Mass ratio] 0.8 {ratio} Normal [facility] Comment on above: Performed By: #### C MP #### [facility] [address] [place] [address] Dr. Emily Lauren ALP [Catalytic activity/Vol] 81 U/L Normal 46-116 [facility] Comment on above: Performed By: #### C MP #### [facility] [address] [place] [address] Dr. Emily Lauren ALT [Catalytic activity/Vol] 44 U/L Normal 16-63 [facility] Comment on above: Performed By: #### C MP #### [facility] [address] [place] [address] Dr. Emily Lauren Anion gap [Moles/Vol] 11.3 mmol/L Normal [facility] Comment on above: Performed By: #### C MP #### [facility] [address] [address] [address] Emily Lauren AST [Catalytic activity/Vol] 41 U/L Critically high 15-37 [facility] Comment on above: Performed By: #### C MP #### [facility] [address] [address] [address] Emily Lauren Bilirubin [Mass/Vol] 1.4 mg/dL Critically high 0.2-1.0 [facility] Comment on above: Performed By: #### C MP #### [facility] [address] [address] [address] Emily Lauren Calcium [Mass/Vol] 9.2 mg/dL Normal 8.5-10.1 [facility] Comment on above: Performed By: #### C MP #### [facility] [address] [address] [address] Emily Lauren Chloride [Moles/Vol] 106 mmol/L Normal 98-107 [facility] Comment on above: Performed By: #### C MP #### [facility] [address] [address] [address] Emily Lauren CO2 [Moles/Vol] 29.8 mmol/L Normal 21.0-32.0 [facility] Comment on above: Performed By: #### C MP #### [facility] [address] [address] [address] Emily Lauren Creatinine [Mass/Vol] 0.83 mg/dL Normal 0.70-1.30 [facility] Comment on above: Performed By: #### C MP #### [facility] [address] [address] [address] Emily Lauren EGFR-AF CITIZEN OF [place] >60 Normal >=60 [facility] Comment on above: Performed By: #### C MP #### [facility] [address] [address] [address] Emily Lauren EGFR-NON AF CITIZEN OF [place] >60 Normal >=60 [facility] Comment on above: Performed By: #### C MP #### [facility] [address] [address] [address] Emily Lauren Globulin (S) [Mass/Vol] 4.2 g/dL Normal [facility] Comment on above: Performed By: #### C MP #### [facility] [address] [place] [address] Dr. Emily Lauren Glucose [Mass/Vol] 80 mg/dL Normal 74-106 [facility] Comment on above: Performed By: #### C MP #### [facility] [address] [address] [address] Emily Lauren Potassium [Moles/Vol] 4.1 mmol/L Normal 3.5-5.1 [facility] Comment on above: Performed By: #### C MP #### [facility] [address] [place] [address] Dr. Emily Lauren Protein [Mass/Vol] 7.6 g/dL Normal 6.4-8.2 [facility] Comment on above: Performed By: #### C MP #### [facility] [address] [place] [address] Dr. Emily Lauren Sodium [Moles/Vol] 143 mmol/L Normal 136-145 [facility] Comment on above: Performed By: #### C MP #### [facility] [address] [place] [address] Dr. Emily Lauren Urea nitrogen [Mass/Vol] 26.0 mg/dL Critically high 7.0-18.0 [facility] Comment on above: Performed By: #### C MP #### [facility] [address] [place] [address] Dr. Emily Lauren Urea nitrogen/Creatinine [Mass ratio] 31.3 mg/mg Normal [facility] Comment on above: Performed By: #### C MP #### [facility] [address] [place] [address] Dr. Emily Lauren Vital Signs Date Time Vital Sign Value Performing Clinician Facility 06-12-2024 14:42-0500 Body height 175.26 cm [facility] 06-12-2024 14:42-0500 Body mass index (BMI) [Ratio] 20.8 kg/m2 [facility] 06-12-2024 14:42-0500 Body weight 64.06 kg [facility] 06-12-2024 14:42-0500 Diastolic blood pressure 77 mm[Hg] [facility] 06-12-2024 14:42-0500 Heart rate 58 /min [facility] 06-12-2024 14:42-0500 Respiratory rate 12 /min [facility] 06-12-2024 14:42-0500 Systolic blood pressure 146 mm[Hg] [facility] 04-30-2024 08:50-0500 Body height 172.7 cm Dante Casillas DPM Work Phone: [facility] 04-30-2024 08:50-0500 Body mass index (BMI) [Ratio] 28.74 kg/m2 Dante Casillas DPM Work Phone: [facility] 04-30-2024 08:50-0500 Body weight 85.73 kg Dante Casillas DPM Work Phone: [facility] 04-30-2024 08:50-0500 Respiratory rate 16 /min Dante Casillas DPM Work Phone: [facility] 12-13-2023 14:39-0400 Body height 175.26 cm [facility] 12-13-2023 14:39-0400 Body mass index (BMI) [Ratio] 23.5 kg/m2 [facility] 12-13-2023 14:39-0400 Body weight 72.17 kg [facility] 12-13-2023 14:39-0400 Diastolic blood pressure 68 mm[Hg] [facility] 12-13-2023 14:39-0400 Heart rate 68 /min [facility] 12-13-2023 14:39-0400 Systolic blood pressure 121 mm[Hg] [facility] 12-12-2023 09:58-0400 Body height 172.7 cm Dante Casillas DPM Work Phone: [facility] 12-12-2023 09:58-0400 Body mass index (BMI) [Ratio] 28.74 kg/m2 Dante Casillas DPM Work Phone: [facility] 12-12-2023 09:58-0400 Body weight 85.73 kg Dante Casillas DPM Work Phone: [facility] 12-12-2023 09:58-0400 Diastolic blood pressure 79 mm[Hg] Dante Casillas DPM Work Phone: [facility] 12-12-2023 09:58-0400 Heart rate 80 /min Dante Casillas DPM Work Phone: [facility] 12-12-2023 09:58-0400 Systolic blood pressure 122 mm[Hg] Dante Casillas DPM Work Phone: [facility] 10-03-2023 15:59-0400 Body height 175.26 cm [facility] 10-03-2023 15:59-0400 Body mass index (BMI) [Ratio] 23.8 kg/m2 [facility] 10-03-2023 15:59-0400 Body weight 73.02 kg [facility] 10-03-2023 15:59-0400 Diastolic blood pressure 72 mm[Hg] [facility] 10-03-2023 15:59-0400 Heart rate 64 /min [facility] 10-03-2023 15:59-0400 Respiratory rate 12 /min [facility] 10-03-2023 15:59-0400 Systolic blood pressure 119 mm[Hg] [facility] 06-14-2023 14:52-0500 Body height 175.26 cm [facility] 06-14-2023 14:52-0500 Body mass index (BMI) [Ratio] 25.2 kg/m2 [facility] 06-14-2023 14:52-0500 Body weight 77.67 kg [facility] 06-14-2023 14:52-0500 Diastolic blood pressure 77 mm[Hg] [facility] 06-14-2023 14:52-0500 Heart rate 66 /min [facility] 06-14-2023 14:52-0500 Systolic blood pressure 128 mm[Hg] [facility] 02-22-2023 13:30-0400 Body height 175.26 cm [facility] Other [facility] Other 02-22-2023 13:30-0400 Body mass index (BMI) [Ratio] 27.82 kg/m2 [facility] Other [facility] Other 02-22-2023 13:30-0400 Body weight 85.46 kg [facility] Other [facility] Other 02-22-2023 13:30-0400 Diastolic blood pressure 70 mm[Hg] [facility] Other [facility] Other 02-22-2023 13:30-0400 Respiratory rate 12 /min [facility] Other [facility] Other 02-22-2023 13:30-0400 Systolic blood pressure 109 mm[Hg] [facility] Other [facility] Other 08-14-2022 12:00-0400 Body height 175.26 cm [facility] Other [facility] Other 08-14-2022 12:00-0400 Body mass index (BMI) [Ratio] 28.29 kg/m2 [facility] Other [facility] Other 08-14-2022 12:00-0400 Body weight 86.91 kg [facility] Other [facility] Other 08-14-2022 12:00-0400 Diastolic blood pressure 80 mm[Hg] [facility] Other [facility] Other 08-14-2022 12:00-0400 Respiratory rate 20 /min [facility] Other [facility] Other 08-14-2022 12:00-0400 Systolic blood pressure 126 mm[Hg] [facility] Other [employer] Other Encounters Encounter Date Encounter Type Care Provider Facility Start: 07-16-2024 End: 07-16-2024 ambulatory DANTE CASILLAS Not Available Start: 06-12-2024 End: 06-12-2024 ambulatory [facility] Work Phone: Start: 06-12-2024 End: 06-12-2024 Patient encounter procedure [facility] Work Phone: Start: 05-26-2024 Non-patient / Non-visit [facility] [employer] Work Phone: Start: 04-30-2024 End: 04-30-2024 Bamboo [...] Not Available Start: 12-13-2023 End: 12-13-2023 ambulatory [facility] Work Phone: Start: 12-13-2023 End: 12-13-2023 Patient encounter procedure [facility] Work Phone: Start: 12-12-2023 End: 12-12-2023 Bamboo flowsheet Dante Casillas DPM Work Phone: [facility] Start: 12-12-2023 End: 12-12-2023 Marlono flowsheet Dante Casillas DPM Work Phone: [facility] Start: 12-12-2023 End: 12-12-2023 Patient encounter procedure Dante Casillas DPM Work Phone: [facility] Comment on above: Onychomycosis (Prima ry Dx); Toe pain, bilateral; Venous insufficiency Start: 12-12-2023 End: 12-12-2023 ambulatory DANTE CASILLAS Not Available Start: 12-04-2023 Non-patient / Non-visit [facility] Work Phone: Start: 10-23-2023 Non-patient / Non-visit [facility] Work Phone: Start: 10-03-2023 End: 10-03-2023 ambulatory [facility] Work Phone: Start: 10-03-2023 End: 10-03-2023 Patient encounter procedure [facility] Phys[facility] Work Phone: Start: 09-27-2023 Non-patient / Non-visit [facility] Work Phone: Start: 09-26-2023 End: 09-26-2023 ambulatory DANTE CASILLAS Not Available Start: 09-05-2023 [facility] Work Phone: Start: 08-20-2023 End: 09-02-2023 [facility] Start: 08-20-2023 Non-patient / Non-visit [facility] Work Phone: Start: 06-14-2023 End: 06-14-2023 ambulatory [facility] Work Phone: Start: 06-14-2023 End: 06-14-2023 Patient encounter procedure [facility] Work Phone: Start: 04-26-2023 End: 04-26-2023 ambulatory Flex Isaacs Other [facility] Other Start: 04-26-2023 Telephone encounter [facility] Start: 04-05-2023 End: 04-05-2023 ambulatory Flex Isaacs Other [facility] Other Start: 04-05-2023 Telephone encounter Flex [facility]UERA [facility] Start: 03-19-2023 End: 03-19-2023 ambulatory Flex Isaacs Other [facility] Other Start: 03-19-2023 Telephone encounter [facility] Start: 03-07-2023 End: 03-07-2023 ambulatory Flex Isaacs Other [facility] Other Start: 03-07-2023 Home visit est pt mo d-hi severity 40 minutes [facility] Start: 03-06-2023 End: 03-06-2023 ambulatory Flex Isaacs Other [facility] Other Start: 03-06-2023 Telephone encounter [facility] Start: 03-05-2023 End: 03-05-2023 ambulatory Flex Isaacs Other [facility] Other Start: 03-05-2023 Telephone encounter Flex [facility]IGUERA [facility] Start: 02-28-2023 End: 02-28-2023 ambulatory Kamilla Vieira Other [facility] Other Start: 02-28-2023 Nursing evaluation o f patient and report Kamilla Vieira [facility] Start: 02-22-2023 End: 02-22-2023 ambulatory Flex Isa[facility] Other [facility] Other Start: 02-22-2023 [facility] day discharge [facility] Start: 02-20-2023 End: 02-20-2023 ambulatory Flex Isaacs Other [facility] Other Start: 02-20-2023 Telephone encounter Flex Isaacs [facility] Start: 02-11-2023 End: 02-11-2023 ambulatory Flex Isaacs Other [facility] Other Start: 02-11-2023 Telephone encounter Flex Isaacs [facility] Start: 01-03-2023 End: 01-03-2023 ambulatory Flex Isaacs Other [facility] Other Start: 01-03-2023 Telephone encounter Flex Isaacs [facility] Start: 01-02-2023 End: 01-02-2023 ambulatory Flex Isaacs Other [facility] Other Start: 01-02-2023 Telephone encounter Flex Isaacs [facility] Start: 01-01-2023 End: 01-01-2023 ambulatory Flex Isaacs Other [facility] Other Start: 01-01-2023 Telephone encounter Flex Isaacs [facility] Start: 12-31-2022 End: 12-31-2022 ambulatory Flex Isaacs Other [facility] Other Start: 12-31-2022 Telephone encounter Flex Isaacs [facility] Start: 12-10-2022 End: 12-10-2022 ambulatory Flex Isaacs Other [facility] Other Start: 12-10-2022 Telephone encounter Flex Isaacs [facility] Start: 12-09-2022 End: 12-09-2022 ambulatory [facility] Other [facility] Other Start: 12-09-2022 Telephone encounter [facility] Start: 10-04-2022 End: 10-04-2022 ambulatory Flex Isaacs Other [facility] Other Start: 10-04-2022 Telephone encounter [facility] Start: 08-16-2022 End: 08-16-2022 ambulatory Flex Isaacs Other [facility] Other Start: 08-16-2022 Telephone encounter [facility] Start: 08-15-2022 Telephone encounter [facility] Start: 08-15-2022 End: 08-16-2022 ambulatory FLEX UMAIR [facility] Other Start: 08-14-2022 End: 08-14-2022 ambulatory [facility] Other [facility] Other Start: 08-14-2022 Patient encounter procedure [facility] Start: 05-20-2019 Adult health examination Solomon Isaacs Other [facility] Other Procedures Date Procedure Procedure Detail Performing Clinician Start: 07-03-2017 Diabetes mellitus screening [facility] Other Start: 11-15-2015 Screening for malign ant neoplasm of colon [facility] Other Screening for malign ant neoplasm of prostate [facility] Other Plan of Treatment Date Care Activity Detail Author Start: 07-16-2024 End: 07-16-2024 Patient encounter procedure 07/16/2024 9:10 AM EDT Procedure Visit [facility] [address] [facility] [address] [place] [address] Dante Casillas DPM [address] [facility] [address] [place] [address] [facility] Start: 04-30-2024 End: 04-30-2024 Patient encounter procedure 04/30/2024 9:00 AM EST [facility] [address] [address] Dante Casillas DPM [address] [address] Pain due to onychomycosis of toenails of both feet (Primary Dx); Venous insufficiency; Xerosis cutis [facility] Comment on above: Pain due to onychomy cosis of toenails of both feet (Primary Dx); Venous insufficiency; Xerosis cutis Start: 02-27-2024 End: 02-27-2024 Patient encounter procedure 02/27/2024 9:50 AM EST [facility] [address] [phone] Dante Casillas DPM [address] [address] [facility] Start: 12-22-2023 Influenza vaccination Influenza Vacc ine (#1) [facility] Start: 12-12-2023 End: 12-12-2023 Patient encounter procedure 12/12/2023 10:00 AM EDT [facility] [address] [phone] Dante Casillas DPM [address] [address] Onychomycosis (Primary Dx); Toe pain, bilateral; Venous insufficiency [facility] Comment on above: Onychomycosis (Prima ry Dx); Toe pain, bilateral; Venous insufficiency Start: 07-03-2018 Pneumococcal Vaccine : 65+ Years (2 of 2 - PPSV23 or PCV20) Pneumococcal Vaccine: 65+ Years (2 of 2 - PPSV23 or PCV20) [facility] Start: 02-15-1939 Medicare Annual Well ness (AWV) Medicare Annual Wellness (AWV) [facility] XR Chest 2 Views [facility] Immunizations Immunization Date Immunization Notes Care Provider Brando higgins 02-18-2024 influenza virus vaccine, unspecified formulation Dante Casillas DPM Work Phone: [facility] 02-28-2023 influenza, high dose seasonal, preservative-free [facility] Other [facility] [employer] Other 02-28-2023 influenza virus vaccine, unspecified formulation [facility] 04-11-2022 influenza, injectabl e, quadrivalent, preservative free [facility] Other [facility] 02-23-2021 COVID-19 Vaccine Moderna - Documentation Purposes Only [facility] Other [facility] 06-17-2020 COVID-19 Vaccine Moderna - Documentation Purposes Only [facility] Other [facility] 05-20-2020 COVID-19 Vaccine Moderna - Documentation Purposes Only [facility] Other [facility] 07-03-2017 pneumococcal conjuga te vaccine, 13 valent [facility] Other [facility] 07-03-2017 pneumococcal Conjuga te, unspecified formulation; Translations: [Need for prophylactic vaccination against Streptococcus pneumoniae (pneumococcus)] [facility] Other [facility] Other 03-07-2017 influenza virus vaccine, split virus (incl. purified surface antigen) [facility] Other [facility] Other 03-07-2017 influenza virus vaccine, unspecified formulation [facility] 03-28-2016 influenza virus vaccine, split virus (incl. purified surface antigen) [facility] Other [facility] [employer] Other 03-28-2016 influenza virus vaccine, unspecified formulation [facility] 03-08-2015 influenza virus vaccine, split virus (incl. purified surface antigen) [facility] Other [facility] Other 03-08-2015 influenza virus vaccine, unspecified formulation [facility] 04-09-2013 tetanus and diphther ia toxoids, adsorbed, preservative free, for adult use (5 Lf of tetanus toxoid and 2 Lf of diphtheria toxoid) [facility] Other [facility] 01-28-2013 tetanus and diphther ia toxoids, adsorbed, preservative free, for adult use (5 Lf of tetanus toxoid and 2 Lf of diphtheria toxoid) [facility] Other [facility] 03-29-2010 pneumococcal polysaccharide vaccine, 23 valent [facility] Other [facility] Payers Date Payer Category Payer Unknown [id number] 2018 Private Health Insurance [id number] 2018 Unknown [id number] 2004 Medicare [id number] 1959 Medicare [id number] 1938 Unknown [id number] 1938 Unknown [id number] 1938 Unknown [id number] 1938 Unknown [id number] 1938 Unknown [id number] 1938 Unknown [id number] Private Health Insurance [employer] [id number] Social History Date Type Detail Facility Start: 09-26-2023 End: 12-12-[address] [facility] [employer] Other Start: 1940 Sex Assigned At Male F [facility] Start: 12-13-2023 End: 12-13-2023 Tobacco smoking status NHIS Never smoked tobacco (finding) [facility] Start: 10-19-2022 Tobacco smoking stat [facility] Ex-smoker [facility] History of tobacco use Current smoker [facility] History of tobacco use Cigarette Smoker [facility] Start: 10-19-2022 Tobacco use and exposure Smokeless tobacco non-user [facility] Start: 09-26-2023 End: 12-12-2023 Alcoholic beverage intake Lifetime non-drinker (finding) [facility] Start: 09-26-2023 End: 12-12-2023 History of Social function [facility] Start: 06-20-2023 Alcohol Comment caffeine intak e: 1-[address] [facility] Start: 1940 Sex assigned at Not on file N [facility] Start: 06-12-2024 Sex Male (finding) [facility] Clinical Notes 08-14-2022 to 04-30-2024 Dante Casillas DPM - 04/30/2024 9:00 AM Dejuan Casillas DPM - 12/12/2023 10:00 AM EDT Note [...] Insecurity: No Food Insecurity (08/21/2023) Received from [facility] Hunger Vital Sign Worried About Running Out of Food in the Last Year: Never true Ran Out of Food in the Last Year: Never true Transportation Needs: No Transportation Needs (08/21/2023) Received from [facility] PRAPARE - Transportation Lack of Transportation (Medical): No Lack of Transportation (Non-Medical): No Physical Activity: Not on file Stress: Not on file Social Connections: Not on file Intimate Partner Violence: Not on file Housing Stability: Low Risk (08/21/2023) Received from [facility] Housing Stability Vital Sign Unable to [...] Dante Casillas DPM documented in this encounter [facility] 12-12-2023 History of Presen t illness Narrative [...] he had healed ulcerations and currently in jail Allergies: No Known Allergies Past Medical History: [...] Insecurity: No Food Insecurity (08/21/2023) Received from [facility] Hunger Vital Sign Worried About Running Out of Food in the Last Year: Never true Ran Out of Food in the Last Year: Never true Transportation Needs: No Transportation Needs (08/21/2023) Received from [facility] PRAPARE - Transportation Lack of Transportation (Medical): No Lack of Transportation (Non-Medical): No Physical Activity: Not on file Stress: Not on file Social Connections: Not on file Intimate Partner Violence: Not on file Housing Stability: Low Risk (08/21/2023) Received from [facility] Housing Stability Vital Sign Unable to [...] Dante Casillas DPM documented in this encounter [facility] 04-26-2023 Evaluation note Encounter Date Diagnosis Assessment Notes Apr, Acute deep vein thrombosis (DVT) of right peroneal vein (ICD-10 - I82.451) [facility] Other 11-16-2023 Evaluation note* Encounter Date Diagnosis [...] for 6months. Check DDimer and venous US. [facility] Other 11-14-2023 Evaluation note* Encounter Date Diagnosis Assessment Notes Treatment Notes Treatment Clinical Notes Feb, Closed fracture of one rib of right side with routine healing, subsequent encounter (ICD-10 - S22.31XD) [facility] Other 11-09-2023 Evaluation note* Encounter Date Diagnosis Assessment Notes Treatment Notes Treatment Clinical Notes Feb, Need for vaccination (ICD-10 - Z23) [facility] Other 11-03-2023 Evaluation note* Encounter Date Diagnosis [...] - E44.0) Protein/calorie supplements daily. Monitor weight. [facility] Other 08-21-2023 Evaluation note* Encounter Date Diagnosis Assessment Notes Treatment Notes Treatment Clinical Notes Nov, Acute deep vein thrombosis (DVT) of left peroneal vein (ICD-10 - I82.452) Nov, Pressure injury of deep tissue of sacral region (ICD-10 - L89.156) Nov, Skin ulcer of heel, limited to breakdown of skin, unspecified laterality (ICD-10 - L97.401) [facility] Other 04-26-2023 NotePROCEDURE: XR HAND MEEK MIN [...] Electronically authenticated by: ROHINI PEARSON Date: 2022-08-15 11:57[facility]04-25-2023 Evaluation note* Encounter Date Diagnosis Assessment [...] Jul, Fatigue, unspecified type (ICD-10 - R53.83) [facility] Other Evaluation noteNo InformationNort Punchbowl Other Evaluation note* Diagnosis Onset Date Resolution Status Anemia acute Chronic venous insufficiency acute Lumbar spondylosis acute Pharyngoesophageal dysphagia acute Pulmonary hypertension acute Right rib fracture acute [facility] Work Phone: Evaluation note* Diagnosis Onset Date Resolution Status Chronic bronchitis acute Chronic venous insufficiency acute HAP (hospital-acquired pneumonia) acute Hx of small bowel obstruction acute Lumbar spondylosis acute Pharyngoesophageal dysphagia acute Pulmonary hypertension acute [facility] Work Phone: Evaluation note* Diagnosis Onset Date [...] acute Medicare annual wellness visit, subsequent noneactive [facility] Work Phone: Evaluation note* Diagnosis Onychomycosis- Primary Dermatophytosis of nail Toe pain, bilateral Venous insufficiency Unspecified venous (peripheral) insufficiency documented in this encounter [facility] HealthcareEvaluation note* Diagnosis Pain due to onychomycosis of toenails of both feet- Primary Venous insufficiency Unspecified venous (peripheral) insufficiency Xerosis cutis Other specified disease of sebaceous glands documented in this encounter [facility] HealthcareEvaluation note* Diagnosis Onset Date Resolution Status Admit Date Anemia acute June 12, 2024 2:19pm Benign p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 acute June 12, 025 2:19pm Chronic bronchitis acute 2024 2:19pm Chronic venous insufficiency acute June 12, 2024 2:19pm Lumbar spondylosis acute 2024 2:19pm Pulmonary hypertension acute Fe 2024 2:19pm [facility] Work Phone: History general Narrative - Reported* Type Description Date Medical History Diarrhea Medical History Chronic venous insufficiency Medical History 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 Medical History Seasonal allergic rhinitis due t o pollen Surgical History CHOLECYSTECTOMY Surgical History APPENDECTOMY Surgical History TONSILLECTOMY Surgical History LEFT KNEE ARTHROSCOPY Hospitalization History SEE SURGICAL HX [facility] Other Hismbdy general Narrative - Reported* Type Description Date [...] LEFT KNEE ARTHROSCOPY Hospitalization History SEE SURGICAL [facility] Other History general Narrative - Reported* Type [...] LEFT KNEE ARTHROSCOPY Hospitalization History SEE SURGICAL [facility] Other History general Narrative - Reported* Type [...] 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 Hospitalization History SEE SURGICAL [facility] Other [facility] general Narrative - Reported* Type Description Date [...] 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 Hospitalization History SEE SURGICAL [facility] Other Summary Purpose Family History No Family History Records Found Relationship Condition Age at Onset Recorded Date/T jorge sister Unknown Advance Directives No Advanced Directives Records Found Advance Directive Response Recorded Date/ Time Advance Directives No Dorothy 20th, 2024 3:49pm Advance Directive Response Recorded Date/ Time [...] and content) DATE CREATED AUTHOR 08/19/2022 [facility] DATE CREATED AUTHOR AUTHOR'S ORGANIZ ATION 10/12/2023 [facility] DATE CREATED AUTHOR AUTHOR'S ORGANIZ ATION 07/17/2024 [facility] dical Specialists EPIC Care Teams [...] December 13, 2023 End: December 13, 2023 Commercial Lawn Specialist Relationship Specialty Start Date End Date Flex Isaacs MD [address] [place] [id number] PCP - General Internal Medicine 04/11/23 Sahra Mishra MD [address] [place] [address] PCP - ACO Reach 06/21/23 [employer] Specialist Relationship Specialty Start Date End Date Flex Isaacs MD [address] [place] [id number] PCP - General Internal Medicine 04/11/23 Sahra Mishra MD [address] [place] [address] PCP - ACO Reach 06/21/23 Commercial Lawn Specialist Relationship Specialty Start Date End Date Flex Isaacs MD [address] [place] [id number] PCP - General Internal Medicine 04/11/23 Sahra Mishra MD [address] [place] [address] PCP - ACO Reach 06/21/23 Commercial Lawn Specialist Relationship Specialty Start Date End Date Flex Isaacs MD [address] [facility] [place] [address] PCP - General Internal Medicine 04/11/23 Sahra Mishra MD [address] [place] [address] PCP - ACO Reach 06/21/23 Team Status: [...] BE BASED ON THE PRIMARY CLINICAL RECORDS. [facility]. provides no warranty or guarantee of the accuracy or completeness of information in this document.
--- NOTE | 2024-07-18 11:04 | ECG_ITS ---
[facility] Test Date: 2024-07-18 Pat Name: ROSANNA SOUSA Department: Room: - Gender: Male [employer] Admin: : 1940 Requested By: Candelario Summers Order Number: [id number] Reading MD: JAC VAZQUEZ M.D. Measurements Intervals [place] Rate: 56 P: 10 [place]: 228 QRS: -40 QRSD: 170 T: 38 QT: 498 QTc: 489 Interpretive Statements 1100 Sinus rhythm 2231 First degree AV block 2450 Right bundle branch block 3414 Cannot rule out septal myocardial infarction, age undetermined 3524 Possible lateral myocardial infarction, age undetermined 5234 Left ventricular hypertrophy with repolarization abnormality 7200 Abnormal left axis deviation 9150 abnormal ECG Compared to ECG 02/17/2024 08:25:32 No significant changes Electronically Signed On 07-18-2024 14:08:22 EDT by JAC VAZQUEZ M.D.
--- NOTE | 2024-07-18 11:06 | ED.WEAKNESS1 ---
HPI - Weakness General Chief complaint: Weakness Stated complaint: WEAKNESS Time Seen by Provider: 07/18/24 10:47 Source: family Mode of arrival: Wheelchair History of Present Illness HPI Narrative: cc - weak and fatigued Pt reported feeling less energy and less strength for about one week. He lives alone but his daughter is present and gives some history. The family checks in on him regularly. She is uncertain how his diet has been. He acknowledged that might be eating and drinking less than he typically does. He denies any focal complaints of pain, recent injury, recent illness. No abdominal pain, nausea, vomiting or diarrhea. No chest pain or shortness of breath. No headache. Daughter said that the patient has been steadily declining for the last month - increasingly unable to care for himself. She noted that he has been incontinent of urine. He is hardly eating and not drinking. He apparently contacted Dr Isaacs about these symptoms, had out-patient blood testing done 1 or 2 days ago. Blood tests reviewed - he has mild anemia now - had low iron and TIBC on 05/27/24 testing. Low WBC and low platelets. BUN elevated at 28. Normal Cr and normal electrolytes. TSH normal. Urine testing was not obtained. Related Data Home Medications ?Medication ?Instructions ?Recorded ?Confirmed albuterol sulfate 1.25 mg/3 mL 3 mg inhalation BID 02/17/24 02/17/24 solution for nebulization aspirin 81 mg capsule 81 mg PO DAILY 02/17/24 02/17/24 folic acid 1 mg tablet 1 mg PO QDAY 02/17/24 02/17/24 polysaccharide iron complex 150 mg 150 mg PO DAILY 02/17/24 02/17/24 iron capsule (Ferrex) tamsulosin 0.4 mg capsule 0.4 mg PO Q24H 02/17/24 02/17/24 Previous Rx's ?Medication ?Instructions ?Recorded acetaminophen 325 mg tablet 650 mg (2 x 325 mg) PO Q6H PRN 03/05/23 Moderate pain #90 tabs cephalexin 500 mg capsule 500 mg PO Q12H 7 days #14 caps 02/20/24 hydrocodone 5 mg-acetaminophen 325 1 tab PO Q6H PRN Pain 1 day #3 tabs 02/20/24 mg tablet Allergies Allergy/AdvReac Type Severity Reaction Status Date / Time No Known Drug Allergies Allergy Verified 02/17/24 08:21 PFSH [facility] Medical History (Updated 07/18/24 @ 12:08 by Candelario Summers) BPH (benign prostatic hyperplasia) ?N40.0 - Benign prostatic hyperplasia without lower urinary tract symptoms (ICD-10) Peripheral edema ?R60.9 - Edema, unspecified (ICD-10) DVT (deep venous thrombosis) ?I82.409 - Acute embolism and thrombosis of unspecified deep veins of unspecified lower extremity (ICD-10) Old lacunar stroke without late effect ?Z86.73 - Personal history of transient ischemic attack (TIA), and cerebral infarction without residual deficits (ICD-10) Low back pain ?M54.50 - Low back pain, unspecified (ICD-10) Stage II pressure ulcer ?L89.92 - Pressure ulcer of unspecified site, stage 2 (ICD-10) Head injury ?S09.90XA - Unspecified injury of head, initial encounter (ICD-10) Elevated bilirubin ?R17 - Unspecified jaundice (ICD-10) Decubitus ulcer of ankle, stage 2 ?L89.502 - Pressure ulcer of unspecified ankle, stage 2 (ICD-10) Abrasion of scalp ?S00.01XA - Abrasion of scalp, initial encounter (ICD-10) Surgical History (Updated 08/20/23 @ 19:06 by Ruthann Delatorre) History of cholecystectomy ?Z90.49 - Acquired absence of other specified parts of digestive tract (ICD-10) Hx of appendectomy ?Z90.49 - Acquired absence of other specified parts of digestive tract (ICD-10) History of partial replacement of left hip joint using bipolar prosthesis ?Z96.642 - Presence of left artificial hip joint (ICD-10) History of knee replacement ?Z96.659 - Presence of unspecified artificial knee joint (ICD-10) Social History Within the past year, how often did you have a drink containing alcohol: monthly or less Smoking status: Former smoker Little interest or pleasure in doing things: not at all Feeling down, depressed, or hopeless: not at all Exam Narrative Exam Narrative: Nurses notes and vital signs reviewed and patient is not hypoxic. afebrile General: Well-appearing and in no apparent distress. Skin: Warm, dry, no pallor noted. No rash. Head: Normocephalic, atraumatic. Neck: Supple, non-tender. No meningismus. Eye: Pupils are equal, round and EOMI. No scleral icterus. Ears, Nose, Mouth, and Throat: TM are clear, no posterior oropharynx erythema or nasal mucosal hypertrophy, uvula is mid-line Oral mucosa is very dry Cardiovascular: Borderline bradycardia, sinus, without murmur, gallop or rub. Respiratory: No accessory muscle use or respiratory distress. Lungs are clear to auscultation, no wheezing, rales or rhonchi Chest Wall: no tenderness Back: No midline thoracic or lumbar vertebral tenderness. No CVA tenderness Musculoskeletal: normal ROM, no calf or popliteal tenderness, no lower extremity edema/swelling GI: Abdomen is soft, non-distended. Normal bowel sounds. No masses appreciated. No tenderness to palpation. No rebound, guarding, or rigidity noted. Neurological: A&O x4. No cranial nerve dysfunction observed. Too weak to sit up on his own and therefore too weak to assess truncal ataxia. Moves all extremities minimally -very weak, symmetrical. Sensation intact. Psychiatric: Cooperative and interactive. Normal mood and affect. Constitutional Vital Signs, click to edit/add: Last Vital Signs Temp 97.4 F L 07/18/24 10:48 Pulse 56 L 07/18/24 10:54 Resp 15 07/18/24 10:54 BP 136/66 07/18/24 11:00 Pulse Ox 97 07/18/24 10:54 O2 Del Method Room Air 07/18/24 10:48 Course Vital Signs Vital signs: Vital Signs Temperature 97.4 F L 07/18/24 10:48 Pulse Rate 55 L 07/18/24 10:48 Respiratory Rate 16 07/18/24 10:48 Blood Pressure 146/72 H 07/18/24 10:48 Pulse Oximetry 95 07/18/24 10:48 Oxygen Delivery Method Room Air 07/18/24 10:48 Temperature 97.4 F L 07/18/24 10:48 Pulse Rate 56 L 07/18/24 10:54 Respiratory Rate 15 07/18/24 10:54 Blood Pressure 136/66 07/18/24 11:00 Pulse Oximetry 97 07/18/24 10:54 Oxygen Delivery Method Room Air 07/18/24 10:48 MDM - Weakness MDM Narrative Medical decision making narrative: Patient is experiencing probably functional decline. He is not able to care for himself appropriately and as a result is likely malnourished and dehydrated. Recent blood test were reviewed and summarized in the HPI. Urine had not been obtained so we will get that. Although TSH was normal we will get T3 and T4. Magnesium will also be checked. CBC and CMP will be rechecked. BUN had been elevated at 28 on last testing -we will recheck his renal function and electrolytes. Portable chest x-ray obtained. Swabs for influenza and COVID also obtained. He was placed on vehicle monitor technician with continuous pulse ox and given a liter of normal saline IV fluid. The patient tested positive for COVID and influenza B. Chest x-ray did not show any focal infiltrate. Blood tests were essentially unchanged since last testing a few days ago with minimally decreased white blood cell count, mild recent platelets elevated BUN at 31 with normal creatinine and normal electrolytes, mag low at 1.6. Urinalysis does not show signs indicating an acute urinary tract infection. Results discussed with patient and family. Patient will be admitted for treatment of his acute kidney injury, management of his malnutrition and dehydration, PT and OT testing to try and improve his strength and functionality. Lab Data Attestation: I reviewed the patient's lab results. Labs: Lab Results 07/18/24 07/18/24 07/18/24 Range/Units 11:10 11:25 11:35 WBC 3.4 L (4.0-11.0) 10^3/uL RBC 3.48 L (4.70-6.10) 10^6/uL Hgb 11.0 L (14.0-18.0) g/dL Hct 33.1 L (42.0-54.0) % MCV 95.1 H (80.0-94.0) fL MCH 31.6 (25.9-34.0) pg MCHC 33.2 (29.9-35.2) g/dL RDW 17.3 H (11.0-15.0) % Plt Count 124 L (150-450) 10^3/uL MPV 10.1 (9.5-13.5) fL Neut % (Auto) 64.4 (43.0-75.0) % Lymph % (Auto) 26.4 (20.5-60.0) % [place] % (Auto) 7.7 (1.7-12.0) % Eos % (Auto) 1.2 (0.9-7.0) % Baso % (Auto) 0.3 (0.2-2.0) % Neut # (Auto) 2.2 (1.4-6.5) 10^3/uL Lymph # (Auto) 0.9 L (1.2-3.8) 10^3/uL [place] # (Auto) 0.3 (0.3-0.8) 10^3/uL Eos # (Auto) 0.0 (0.0-0.7) 10^3/uL Baso # (Auto) 0.0 (0.0-0.1) 10^3/uL Abs Immat Gran (auto) 0.00 (0.00-0.03) 10^3/uL Imm/Tot Granulo (auto) 0.0 (0.0-0.5) % Sodium 139 (136-145) mmol/L Potassium 3.9 (3.5-5.1) mmol/L Chloride 102 (98-107) mmol/L Carbon Dioxide 31.9 (21.0-32.0) mmol/L Anion Gap 9.0 BUN 31.0 H (7.0-18.0) mg/dL Creatinine 0.81 (0.70-1.30) mg/dL Est GFR ( Amer) >60 (>=60 mL/min/1.73m^2) Est GFR (Non-Af Amer) >60 (>=60 mL/min/1.73m^2) BUN/Creatinine Ratio 38.3 Glucose 109 H (74-106) mg/dL Calcium 8.8 (8.5-10.1) mg/dL Phosphorus 2.7 (2.6-4.7) mg/dL Magnesium 1.6 L (1.8-2.4) mg/dL Total Bilirubin 0.9 (0.2-1.0) mg/dL AST 70 H (15-37) U/L ALT 54 (16-63) U/L Alkaline Phosphatase 113 (46-116) U/L Troponin I High Sens 20.3 (4.0-76.1) pg/mL NT-Pro-B Natriuret Pep 317.0 (<=1800.0) pg/mL Total Protein 8.5 H (6.4-8.2) g/dL Albumin 2.7 L (3.4-5.0) g/dL Globulin 5.8 g/dL Albumin/Globulin Ratio 0.5 Free T4 0.93 (0.76-1.46) ng/dL Free T3 1.73 L (2.18-3.98) pg/mL Urine Color Yellow (YELLOW) Urine Clarity Clear (CLEAR) Urine pH 6.0 (5.0-9.0) Ur Specific [place] 1.015 (1.005-1.025) Urine Protein Negative (NEG/TRACE) mg/dL Urine Glucose (UA) Negative (NEGATIVE) mg/dL Urine Ketones Negative (NEGATIVE) mg/dL Urine Occult Blood Small A (NEGATIVE) Urine Nitrite Negative (NEGATIVE) Urine Bilirubin Negative (NEGATIVE) Urine Urobilinogen 1.0 (0.2-1.0) EU/dL Ur Leukocyte Esterase Negative (NEGATIVE) Urine RBC 5-10 A (0-2) #/HPF Urine WBC 2-5 A (NONE SEEN) #/HPF Ur Squamous Epith Cells Rare (NONE/RARE) #/LPF Urine Crystals None seen (None Seen) #/HPF Urine Bacteria Trace A (NONE SEEN) #/HPF Urine Casts None seen (NONE SEEN) #/LPF Urine Mucus None seen (NONE SEEN) Ur Culture Indicated? No Influenza Type A Ag Negative Influenza Type B Ag Positive A SARS-CoV-2 Ag (CV2AG) Positive A (NEGATIVE) Imaging Data Chest x-ray: My impression: Bilateral atelectasis without infiltrate or effusion ECG Data Attestation: I personally reviewed and interpreted this ECG as follows: Interpretation: EKG interpretation: Emergency Department physician interpretation. Normal sinus rhythm at 56bpm. First-degree AV block. Right bundle branch block. Left ventricular hypertrophy. Left axis deviation. EKG unchanged from February 17, 2024 Discharge Plan Discharge Chief Complaint: Weakness Clinical Impression: Declining functional status, Weakness generalized, Acute kidney injury, Dehydration, Malnutrition, COVID-19, Influenza B Patient Disposition: Admitted As Inpatient Time of Disposition Decision: 12:07 Additional Instructions: Dr Pichardo's service
[2024-07-18 11:20] LABS: Basophils Percent Auto 0.3 % (0.2-2.0); Eosinophils Percent Auto 1.2 % (0.9-7.0); Hematocrit 33.1 % (42.0-54.0); Lymphocytes Absolute Auto 0.9 10^3/uL (1.2-3.8); Lymphocytes Percent Auto 26.4 % (20.5-60.0); Mean Corpuscular HGB Conc 33.2 g/dL (29.9-35.2); Mean Corpuscular Hemoglobin 31.6 pg (25.9-34.0); Mean Corpuscular Volume 95.1 fL (80.0-94.0); Mean Platelet Volume 10.1 fL (9.5-13.5); Monocytes Absolute Auto 0.3 10^3/uL (0.3-0.8); Monocytes Percent Auto 7.7 % (1.7-12.0); Neutrophils Absolute Auto 2.2 10^3/uL (1.4-6.5); Neutrophils Percent Auto 64.4 % (43.0-75.0); Platelet Count 124 10^3/uL (150-450); Red Blood Count 3.48 10^6/uL (4.70-6.10); Red Cell Distribution Width 17.3 % (11.0-15.0); White Blood Count 3.4 10^3/uL (4.0-11.0)
[2024-07-18] MEDS: 0.9 % SODIUM CHLORIDE 1,000 ML 999 ML IV (11:22)
[2024-07-18 11:42] LABS: Free T4 0.93 ng/dL (0.76-1.46)
[2024-07-18 11:45] LABS: Alanine Aminotransferase 54 U/L (16-63); Albumin Globulin Ratio 0.5; Albumin Level 2.7 g/dL (3.4-5.0); Alkaline Phosphatase 113 U/L (46-116); Aspartate Amino Transferase 70 U/L (15-37); BUN Creatinine Ratio 38.3; Bilirubin Total 0.9 mg/dL (0.2-1.0); Calcium 8.8 mg/dL (8.5-10.1); Carbon Dioxide 31.9 mmol/L (21.0-32.0); Chloride 102 mmol/L (98-107); Estimated GFR (African America >60 (>=60 mL/min/1.73m^2); Estimated GFR (Non-African Ame >60 (>=60 mL/min/1.73m^2); Globulin 5.8 g/dL; Glucose 109 mg/dL (74-106); Magnesium 1.6 mg/dL (1.8-2.4); Phosphorus 2.7 mg/dL (2.6-4.7); Potassium 3.9 mmol/L (3.5-5.1); Sodium 139 mmol/L (136-145); Total Protein 8.5 g/dL (6.4-8.2); Troponin I High Sensitivity 20.3 pg/mL (4.0-76.1)
[2024-07-18 11:48] LABS: Bilirubin Urine NEGATIVE (NEGATIVE); Blood Urine SMALL (NEGATIVE); Clarity Urine CLEAR (CLEAR); Color Urine YELLOW (YELLOW); Glucose Urine UA NEGATIVE (NEGATIVE); Ketones Urine NEGATIVE (NEGATIVE); Leukocyte Esterase Urine NEGATIVE (NEGATIVE); Nitrite Urine NEGATIVE (NEGATIVE); Protein Urine NEGATIVE (NEG/TRACE); Specific Gravity Urine 1.015 (1.005-1.025)
[2024-07-18 11:55] LABS: Bacteria Urine TRACE #/HPF (NONE SEEN); Cast Seen? NONE SEEN #/LPF (NONE SEEN); Crystals Seen? None Seen #/HPF (None Seen); Mucus Urine NONE SEEN (NONE SEEN); Squamous Epithelial Cell Urine RARE #/LPF (NONE/RARE); Urine Culture Indicated NO
[2024-07-18 12:00] LABS: Influenza Virus A Antigen Negative; Influenza Virus B Antigen Positive; Internal Control Within Normal Limits
[2024-07-18 12:01] LABS: Internal Control Within Normal Limits; SARS-CoV-2 Ag POSITIVE (NEGATIVE)
[2024-07-18 12:05] LABS: Free T3 1.73 pg/mL (2.18-3.98)
[2024-07-18] MEDS: MAGNESIUM SULFATE/D5W 1 GM/100 ML PREMIX IV (12:26)
--- OUTSIDE RECORDS SUMMARY | 2024-07-18 13:03 | XMS_ITS | CCD ---
Author Organization [facility] In[employer] ion Partnership [facility] Care Team Providers Care Mold Dresser Name Role Phone Flex Isaacs Unavailable DR FLEX ISAACS Admitting Unavailable UMAIR, DR MENDEZ Primary Care [...] Primary Care Provider Sahra Mishra MD Unavailable [phone] Sahra Mishra MD Unavailable [phone] DANTE CASILLAS Attending Unavailable DANTE CASILLAS Attending Unavailable DANTE CASILLAS Attending Unavailable DANTE CASILLAS Attending Unavailable Allergies Allergy Classification Reported Allergen(s) Allergy Type Date of Onset Reaction(s) Facility (8 sources) patient allergy list reviewed by nurse or physicia Propensity to adverse reactions 5 Comment:Done [employer] Other Medications Current Medications Medication Drug Class(es) [...] 2023 3:03pm take 1 capsule by [facility] every six hours Acetaminophen 500 MG 1 capsule as needed Orally every 6 hrs Active take 2 tablets by [facility] every eight hours Tylenol 8 Hour 650 [...] 14, 2023 3:05pm take 1 tablet by [facility] every twelve hours Eliquis 5 MG 1 [...] October 03, 2023 3:06pm polyethylene glycol 3350 [id number] mg powder for oral solution (3 sources) [...] Episodic Other aftercare (2 sources) Other intermediate project manager (current) drug therapy; Translations: [OTH [facility]DC CURRENT DRUG THERAPY] Onset: 3 Episodic Other [...] Basophils (Bld) [#/Vol] Automated basophil count 0.0-0.1 [facility] Basophils/100 WBC Auto (Bld) on 05-26-2024 Basophils/100 WBC (Bld) Automated basophil % 0.2-2.0 [facility] Eosinophils/100 WBC Auto (Bl d)on 05-26-2024 Eosinophils/100 WBC (Bld) Automated eosinophil % 0.9-7.0 [facility] Erythrocyte distribution wid th Auto (RBC) [Ratio]on 05-26-2024 Erythrocyte distribution width (RBC) [Ratio] Erythrocyte distribution width [Ratio] by Automated count High 11.0-15.0 [facility] Estimated glomerular filtrat ion rate (GFR) non- Americanon 05-26-2024 GFR/1.73 sq M.predicted among non-blacks MDRD (S/P/Bld) [Vol rate/Area] Estimated glomerular filtration rate (GFR) non- >=60 mL/min/1.73m 2 [facility] Globulin Calc (S) [Mass/Vol] on 05-26-2024 Globulin (S) [Mass/Vol] Serum globulin measurement by calculation (mass/volume) [facility] Hematocrit Auto (Bld) [Volum e fraction]on 05-26-2024 Hematocrit (Bld) [Volume fraction] Hematocrit [Volume Fraction] of Blood by Automated count Low 42.0-54.0 [facility] Hemoglobin [Mass/volume] in Bloodon 05-26-2024 Hemoglobin (Bld) [Mass/Vol] Hemoglobin [Mass/volume] in Blood Low 14.0-18.0 [facility] Iron binding capacity [Mass/ volume] in Serum or Plasmaon 05-26-2024 Iron binding capacity [Mass/Vol] Iron binding capacity [Mass/volume] in Serum or Plasma Low 250.0-450.0 [facility] Iron saturation [Mass Fracti on] in Serum or Plasmaon 05-26-2024 Iron saturation [Mass fraction] Iron saturation [Mass Fraction] in Serum or Plasma [facility] Laboratory - Chemistry and C hemistry - challengeon 05-26-2024 Albumin [Mass/Vol] 2.7 g/dL Low 3.4-5.0 [facility] ALP [Catalytic activity/Vol] 150 U/L High 46-116 [facility] ALT [Catalytic activity/Vol] 49 U/L 16-63 [facility] AST [Catalytic activity/Vol] 57 U/L High 15-37 [facility] Bilirubin [Mass/Vol] 0.8 mg/dL 0.2-1.0 [facility] Calcium [Mass/Vol] 8.9 mg/dL 8.5-10.1 [facility] Chloride [Moles/Vol] 103 mmol/L 98-107 [facility] CO2 [Moles/Vol] 32.2 mmol/L High 21.0-32.0 [facility] Cobalamin (Vitamin B12) [Mass/Vol] 685 pg/mL 232-1245 [facility] Comment on above: Performed at: [facility] [address] [id number] Director: Jackson Collins PhD, Phone: [phone] Creatinine [Mass/Vol] 0.84 mg/dL 0.70-1.30 [facility] Ferritin [Mass/Vol] 276.0 ng/mL 26.0-388.0 [facility] GFR/1.73 sq M.predicted MDRD (S/P/Bld) [Vol rate/Area] mL/min/{1.73_m2} >=60 mL/min/1.73m 2 [facility] Glucose [Mass/Vol] 81 mg/dL 74-106 [facility] Iron [Mass/Vol] 64.0 ug/dL Low 65.0-175.0 [facility] Potassium [Moles/Vol] 4.4 mmol/L 3.5-5.1 [facility] Protein [Mass/Vol] 7.6 g/dL 6.4-8.2 [facility] Sodium [Moles/Vol] 142 mmol/L 136-145 [facility] Urea nitrogen [Mass/Vol] 29.0 mg/dL High 7.0-18.0 [facility] Urea nitrogen/Creatinine [Mass ratio] 34.5 mg/mg [facility] Laboratory - Hematology and Cell countson 05-26-2024 Immature granulocytes/100 WBC (Bld) 0.2 % 0.0-0.5 [facility] Leukocytes [#/volume] correc александр for nucleated erythrocytes in Blood by Automated counon 05-26-2024 WBC corrected for nucl RBC Auto (Bld) [#/Vol] Leukocytes [#/volume] corrected for nucleated erythrocytes in Blood by Automated coun 4.0-11.0 [facility] Lymphocytes Auto (Bld) [#/Vo l]on 05-26-2024 Lymphocytes (Bld) [#/Vol] Lymphocytes [#/volume] in Blood by Automated count 1.2-3.8 [facility] Lymphocytes/100 WBC Auto (Bl d)on 05-26-2024 Lymphocytes/100 WBC (Bld) Lymphocytes/100 leukocytes in Blood by Automated count 20.5-60.0 [facility] MCH Auto (RBC) [Entitic mass ]on 05-26-2024 MCH (RBC) [Entitic mass] MCH [Entitic mass] by Automated count 25.9-34.0 [facility] MCHC Auto (RBC) [Mass/Vol]on 05-26-2024 MCHC (RBC) [Mass/Vol] MCHC [Mass/volume] by Automated count 29.9-35.2 [facility] MCV Auto (RBC) [Entitic vol] on 05-26-2024 MCV (RBC) [Entitic vol] MCV [Entitic volume] by Automated count 80.0-94.0 [facility] Monocytes Auto (Bld) [#/Vol] on 05-26-2024 Monocytes (Bld) [#/Vol] Automated blood monocyte count 0.3-0.8 [facility] Monocytes/100 WBC Auto (Bld) on 05-26-2024 Monocytes/100 WBC (Bld) Automated monocyte % 1.7-12.0 [facility] Neutrophils Auto (Bld) [#/Vo l]on 05-26-2024 Neutrophils (Bld) [#/Vol] Neutrophils [#/volume] in Blood by Automated count 1.4-6.5 [facility] Neutrophils/100 WBC Auto (Bl d)on 05-26-2024 Neutrophils/100 WBC (Bld) Automated neutrophil % 43.0-75.0 [facility] No Panel Informationon 05-26 Eosinophils # (Auto) 0.1 10 3/uL 0.0-0.7 [facility] Folate 32.20 ng/mL 8.60-58.90 [facility] Immature Granulocyte # (Auto) 0.01 10 3/uL 0.00-0.03 [facility] Platelet mean volume Auto (B ld) [Entitic vol]on 05-26-2024 Platelet mean volume (Bld) [Entitic vol] Platelet mean volume [Entitic volume] in Blood by Automated count 9.5-13.5 [facility] Platelets Auto (Bld) [#/Vol] on 05-26-2024 Platelets (Bld) [#/Vol] Platelets [#/volume] in Blood by Automated count 150-450 [facility] RBC Auto (Bld) [#/Vol]on RBC (Bld) [#/Vol] Erythrocytes [#/volume] in Blood by Automated count Low 4.70-6.10 [facility] Serum or plasma albumin/glob ulin mass ratioon 05-26-2024 Albumin/Globulin [Mass ratio] Serum or plasma albumin/globulin mass ratio [facility] Serum or plasma anion gap de terminationon 05-26-2024 Anion gap [Moles/Vol] Serum or plasma anion gap determination [facility] Basophils Auto (Bld) [#/Vol] on 12-04-2023 Basophils (Bld) [#/Vol] 0.0 10 3/uL 0.0-0.1 [facility] Basophils/100 WBC Auto (Bld) on 12-04-2023 Basophils/100 WBC (Bld) 0.5 % 0.2-2.0 [facility] Eosinophils/100 WBC Auto (Bl d)on 12-04-2023 Eosinophils/100 WBC (Bld) 3.0 % 0.9-7.0 [facility] Erythrocyte distribution wid th Auto (RBC) [Ratio]on 12-04-2023 Erythrocyte distribution width (RBC) [Ratio] 15.5 % High 11.0-15.0 [facility] Estimated glomerular filtrat ion rate (GFR) non- Americanon 12-04-2023 GFR/1.73 sq M.predicted among non-blacks MDRD (S/P/Bld) [Vol rate/Area] mL/min/{1.73_m2} >=60 [facility] Globulin Calc (S) [Mass/Vol] on 12-04-2023 Globulin (S) [Mass/Vol] 4.9 g/dL [facility] Hematocrit Auto (Bld) [Volum e fraction]on 12-04-2023 Hematocrit (Bld) [Volume fraction] 36.3 % Low 42.0-54.0 [facility] Hemoglobin [Mass/volume] in Bloodon 12-04-2023 Hemoglobin (Bld) [Mass/Vol] 11.8 g/dL Low 14.0-18.0 [facility] Iron binding capacity [Mass/ volume] in Serum or Plasmaon 12-04-2023 Iron binding capacity [Mass/Vol] 293.0 ug/dL 250.0-450.0 [facility] Iron saturation [Mass Fracti on] in Serum or Plasmaon 12-04-2023 Iron saturation [Mass fraction] 18.1 % [facility] Laboratory - Chemistry and C hemistry - challengeon 12-04-2023 Albumin [Mass/Vol] 2.7 g/dL Low 3.4-5.0 [facility] ALP [Catalytic activity/Vol] 98 U/L 46-116 [facility] ALT [Catalytic activity/Vol] 43 U/L 16-63 [facility] AST [Catalytic activity/Vol] 49 U/L High 15-37 [facility] Bilirubin [Mass/Vol] 0.7 mg/dL 0.2-1.0 [facility] Calcium [Mass/Vol] 9.0 mg/dL 8.5-10.1 [facility] Chloride [Moles/Vol] 105 mmol/L 98-107 [facility] CO2 [Moles/Vol] 29.1 mmol/L 21.0-32.0 [facility] Cobalamin (Vitamin B12) [Mass/Vol] 782.0 pg/mL 193.0-986.0 [facility] Creatinine [Mass/Vol] 0.78 mg/dL 0.70-1.30 [facility] Ferritin [Mass/Vol] 139.0 ng/mL 26.0-388.0 [facility] GFR/1.73 sq M.predicted MDRD (S/P/Bld) [Vol rate/Area] mL/min/{1.73_m2} >=60 [facility] Glucose [Mass/Vol] 90 mg/dL 74-106 [facility] Iron [Mass/Vol] 53.0 ug/dL Low 65.0-175.0 [facility] Potassium [Moles/Vol] 4.5 mmol/L 3.5-5.1 [facility] Protein [Mass/Vol] 7.6 g/dL 6.4-8.2 [facility] Sodium [Moles/Vol] 138 mmol/L 136-145 [facility] Urea nitrogen [Mass/Vol] 26.0 mg/dL High 7.0-18.0 [facility] Urea nitrogen/Creatinine [Mass ratio] 33.3 mg/mg [facility] Laboratory - Hematology and Cell countson 12-04-2023 Immature granulocytes/100 WBC (Bld) 0.2 % 0.0-0.5 [facility] Leukocytes [#/volume] correc александр for nucleated erythrocytes in Blood by Automated counon 12-04-2023 WBC corrected for nucl RBC Auto (Bld) [#/Vol] 5.6 10 3/uL 4.0-11.0 [facility] Lymphocytes Auto (Bld) [#/Vo l]on 12-04-2023 Lymphocytes (Bld) [#/Vol] 2.0 10 3/uL 1.2-3.8 [facility] Lymphocytes/100 WBC Auto (Bl d)on 12-04-2023 Lymphocytes/100 WBC (Bld) 36.0 % 20.5-60.0 [facility] MCH Auto (RBC) [Entitic mass ]on 12-04-2023 MCH (RBC) [Entitic mass] 30.3 pg 25.9-34.0 [facility] MCHC Auto (RBC) [Mass/Vol]on 12-04-2023 MCHC (RBC) [Mass/Vol] 32.5 g/dL 29.9-35.2 [facility] MCV Auto (RBC) [Entitic vol] on 12-04-2023 MCV (RBC) [Entitic vol] 93.1 fL 80.0-94.0 [facility] Monocytes Auto (Bld) [#/Vol] on 12-04-2023 Monocytes (Bld) [#/Vol] 0.3 10 3/uL 0.3-0.8 [facility] Monocytes/100 WBC Auto (Bld) on 12-04-2023 Monocytes/100 WBC (Bld) 5.7 % 1.7-12.0 [facility] Neutrophils Auto (Bld) [#/Vo l]on 12-04-2023 Neutrophils (Bld) [#/Vol] 3.1 10 3/uL 1.4-6.5 [facility] Neutrophils/100 WBC Auto (Bl d)on 12-04-2023 Neutrophils/100 WBC (Bld) 54.6 % 43.0-75.0 [facility] No Panel Informationon 12-03 Eosinophils # (Auto) 0.2 10 3/uL 0.0-0.7 [facility] Folate 8.50 ng/mL Low 8.60-58.90 [facility] Immature Granulocyte # (Auto) 0.01 10 3/uL 0.00-0.03 [facility] Platelet mean volume Auto (B ld) [Entitic vol]on 12-04-2023 Platelet mean volume (Bld) [Entitic vol] 9.9 fL 9.5-13.5 [facility] Platelets Auto (Bld) [#/Vol] on 12-04-2023 Platelets (Bld) [#/Vol] 143 10 3/uL Low 150-450 [facility] RBC Auto (Bld) [#/Vol]on RBC (Bld) [#/Vol] 3.90 10 6/uL Low 4.70-6.10 [facility] Serum or plasma albumin/glob ulin mass ratioon 12-04-2023 Albumin/Globulin [Mass ratio] 0.6 {ratio} [facility] Serum or plasma anion gap de terminationon 12-04-2023 Anion gap [Moles/Vol] 8.4 mmol/L [facility] Basophils Auto (Bld) [#/Vol] on 10-23-2023 Basophils (Bld) [#/Vol] 0.0 10 3/uL 0.0-0.1 [facility] Basophils/100 WBC Auto (Bld) on 10-23-2023 Basophils/100 WBC (Bld) 0.3 % 0.2-2.0 [facility] Eosinophils/100 WBC Auto (Bl d)on 10-23-2023 Eosinophils/100 WBC (Bld) 4.6 % 0.9-7.0 [facility] Erythrocyte distribution wid th Auto (RBC) [Ratio]on 10-23-2023 Erythrocyte distribution width (RBC) [Ratio] 15.4 % High 11.0-15.0 [facility] Estimated glomerular filtrat ion rate (GFR) non- Americanon 10-23-2023 GFR/1.73 sq M.predicted among non-blacks MDRD (S/P/Bld) [Vol rate/Area] mL/min/{1.73_m2} >=60 [facility] Globulin Calc (S) [Mass/Vol] on 10-23-2023 Globulin (S) [Mass/Vol] 4.9 g/dL [facility] Hematocrit Auto (Bld) [Volum e fraction]on 10-23-2023 Hematocrit (Bld) [Volume fraction] 35.9 % Low 42.0-54.0 [facility] Hemoglobin [Mass/volume] in Bloodon 10-23-2023 Hemoglobin (Bld) [Mass/Vol] 11.4 g/dL Low 14.0-18.0 [facility] Laboratory - Chemistry and C hemistry - challengeon 10-23-2023 Albumin [Mass/Vol] 2.8 g/dL Low 3.4-5.0 [facility] ALP [Catalytic activity/Vol] 98 U/L 46-116 [facility] ALT [Catalytic activity/Vol] 30 U/L 16-63 [facility] AST [Catalytic activity/Vol] 39 U/L High 15-37 [facility] Bilirubin [Mass/Vol] 0.8 mg/dL 0.2-1.0 [facility] Calcium [Mass/Vol] 8.8 mg/dL 8.5-10.1 [facility] Chloride [Moles/Vol] 104 mmol/L 98-107 [facility] CO2 [Moles/Vol] 31.0 mmol/L 21.0-32.0 [facility] Creatinine [Mass/Vol] 0.82 mg/dL 0.70-1.30 [facility] GFR/1.73 sq M.predicted MDRD (S/P/Bld) [Vol rate/Area] mL/min/{1.73_m2} >=60 [facility] Glucose [Mass/Vol] 91 mg/dL 74-106 [facility] Potassium [Moles/Vol] 4.3 mmol/L 3.5-5.1 [facility] Protein [Mass/Vol] 7.7 g/dL 6.4-8.2 [facility] Sodium [Moles/Vol] 140 mmol/L 136-145 [facility] Urea nitrogen [Mass/Vol] 23.0 mg/dL High 7.0-18.0 [facility] Urea nitrogen/Creatinine [Mass ratio] 28.0 mg/mg [facility] Laboratory - Hematology and Cell countson 10-23-2023 Immature granulocytes/100 WBC (Bld) 0.2 % 0.0-0.5 [facility] Leukocytes [#/volume] correc александр for nucleated erythrocytes in Blood by Automated counon 10-23-2023 WBC corrected for nucl RBC Auto (Bld) [#/Vol] 6.1 10 3/uL 4.0-11.0 [facility] Lymphocytes Auto (Bld) [#/Vo l]on 10-23-2023 Lymphocytes (Bld) [#/Vol] 1.8 10 3/uL 1.2-3.8 [facility] Lymphocytes/100 WBC Auto (Bl d)on 10-23-2023 Lymphocytes/100 WBC (Bld) 28.7 % 20.5-60.0 [facility] MCH Auto (RBC) [Entitic mass ]on 10-23-2023 MCH (RBC) [Entitic mass] 30.0 pg 25.9-34.0 [facility] MCHC Auto (RBC) [Mass/Vol]on 10-23-2023 MCHC (RBC) [Mass/Vol] 31.8 g/dL 29.9-35.2 [facility] MCV Auto (RBC) [Entitic vol] on 10-23-2023 MCV (RBC) [Entitic vol] 94.5 fL High 80.0-94.0 [facility] Monocytes Auto (Bld) [#/Vol] on 10-23-2023 Monocytes (Bld) [#/Vol] 0.3 10 3/uL 0.3-0.8 [facility] Monocytes/100 WBC Auto (Bld) on 10-23-2023 Monocytes/100 WBC (Bld) 5.6 % 1.7-12.0 [facility] Neutrophils Auto (Bld) [#/Vo l]on 10-23-2023 Neutrophils (Bld) [#/Vol] 3.7 10 3/uL 1.4-6.5 [facility] Neutrophils/100 WBC Auto (Bl d)on 10-23-2023 Neutrophils/100 WBC (Bld) 60.6 % 43.0-75.0 [facility] No Panel Informationon 10-22 Eosinophils # (Auto) 0.3 10 3/uL 0.0-0.7 [facility] Immature Granulocyte # (Auto) 0.01 10 3/uL 0.00-0.03 [facility] Platelet mean volume Auto (B ld) [Entitic vol]on 10-23-2023 Platelet mean volume (Bld) [Entitic vol] 9.8 fL 9.5-13.5 [facility] Platelets Auto (Bld) [#/Vol] on 10-23-2023 Platelets (Bld) [#/Vol] 188 10 3/uL 150-450 [facility] RBC Auto (Bld) [#/Vol]on RBC (Bld) [#/Vol] 3.80 10 6/uL Low 4.70-6.10 [facility] Serum or plasma albumin/glob ulin mass ratioon 10-23-2023 Albumin/Globulin [Mass ratio] 0.6 {ratio} [facility] Serum or plasma anion gap de terminationon 10-23-2023 Anion gap [Moles/Vol] 9.3 mmol/L [facility] Basic Metabolic Profon 09-01 Anion gap [Moles/Vol] 6 mmol/L Low 9-16 [facility] Comment on above: Performed By: #### B MP, TROPI #### [facility] [address] [place], [place] [id number] Water Chaser: Ramsey Rodriguez MD Calcium [Mass/Vol] 8.7 mg/dL Normal 8.6-10.4 [facility] Comment on above: Performed By: #### B MP, TROPI #### [facility] [address] [place], [place] [id number] Water Chaser: Ramsey Rodriguez MD Chloride [Moles/Vol] 102 mmol/L Normal 98-107 [facility] Comment on above: Performed By: #### B EDWARD, TROPI #### [facility] [address] [place] [address] Water Chaser: Ramsey Rodriguez MD CO2 [Moles/Vol] 32 mmol/L High 20-31 [facility] Comment on above: Performed By: #### B EDWARD, TROPI #### [facility] [place] [address] Water Chaser: Ramsey Rodriguez MD Creatinine [Mass/Vol] 0.5 mg/dL Low 0.70-1.20 [facility] Comment on above: Performed By: #### B EDWARD, TROPI #### [facility] [place] [address] Water Chaser: Ramsey Rodriguez MD GFR/1.73 sq M.predicted among non-blacks MDRD (S/P/Bld) [Vol rate/Area] mL/min/{1.73_m2} Normal >60 [facility] Comment on above: Result Comment: These [...] B EDWARD, TROPI #### [facility] [address] [place] [address] Water Chaser: Ramsey Rodriguez MD Glucose [Mass/Vol] 93 mg/dL Normal 74-99 [facility] Comment on above: Performed By: #### B EDWARD, TROPI #### [facility] [place] [address] Water Chaser: Ramsey Rodriguez MD Potassium [Moles/Vol] 3.7 mmol/L Normal 3.7-5.3 [facility] Comment on above: Performed By: #### KAITLYNN Camarena MP #### [address] [address] Water Chaser: Ramsey Rodriguez MD Sodium [Moles/Vol] 140 mmol/L Normal 136-145 [facility] Comment on above: Performed By: #### B EDWARD TROPI #### [facility] [address] [place] [address] Water Chaser: Ramsey Rodriguez MD Urea nitrogen [Mass/Vol] 14 mg/dL Normal 8-23 [facility] Comment on above: Performed By: #### B KAITLYNN LEON #### [address] [address] Water Chaser: Ramsey Rodriguez MD CBC with Diffon 09-02-2023 Abs. Basophil 0.03 k/uL Normal 0.00-0.20 [facility] Comment on above: Performed By: #### KAITLYNN Camarena MP #### [address] [address] Water Chaser: Ramsey Rodriguez MD Abs.Imm.Granulocyte 0.04 k/uL Normal 0.00-0.30 [facility] Comment on above: Performed By: #### Nicol LEON TROPI #### [facility] [address] [place] [address] Water Chaser: Ramsey Rodriguez MD Abs.Neutrophil (Seg) 4.12 k/uL Normal 1.50-8.10 [facility] Comment on above: Performed By: #### Nicol LEON TROPI #### [facility] [address] [place] [address] Water Chaser: Ramsey Rodriguez MD Basophils/100 WBC (Bld) 1 % Normal 0-2 [facility] Comment on above: Performed By: #### B EDWARD, TROPI #### [address] [address] Water Chaser: Ramsey Rodriguez MD Eosinophils (Bld) [#/Vol] 0.34 10*3/uL Normal 0.00-0.44 [facility] Comment on above: Performed By: #### B EDWARD, TROPI #### [facility] [address] [place] [address] Water Chaser: Ramsey Rodriguez MD Eosinophils/100 WBC (Bld) 6 % High 1-4 [facility] Comment on above: Performed By: #### B EDWARD, TROPI #### [address] [address] Water Chaser: Ramsey Rodriguez MD Erythrocyte distribution width (RBC) [Ratio] 16.0 % High 11.8-14.4 [facility] Comment on above: Performed By: #### B EDWARD, TROPI #### [address] [address] Water Chaser: Ramsey Rodriguez MD Hematocrit (Bld) [Volume fraction] 33.4 % Low 40.7-50.3 [facility] Comment on above: Performed By: #### B EDWARD, TROPI #### [address] [address] Water Chaser: Ramsey Rodriguez MD Hemoglobin (Bld) [Mass/Vol] 10.6 g/dL Low 13.0-17.0 [facility] Comment on above: Performed By: #### B EDWARD, TROPI #### [address] [address] Water Chaser: Ramsey Rodriguez MD Immature granulocytes/100 WBC (Bld) 1 % High 0 [facility] Comment on above: Performed By: #### B EDWARD, TROPI #### [facility] [address] [place] [address] Water Chaser: Ramsey Rodriguez MD Lymphocytes (Bld) [#/Vol] 0.96 10*3/uL Low 1.10-3.70 [facility] Comment on above: Performed By: #### B MP, TROPI #### [facility] [address] [place] [address] Water Chaser: Ramsey Rodriguez MD Lymphocytes/100 WBC (Bld) 17 % Low 24-43 [facility] Comment on above: Performed By: #### B MP, TROPI #### [place] [address] Water Chaser: Ramsey Rodriguez MD MCH (RBC) [Entitic mass] 30.5 pg Normal 25.2-33.5 [facility] Comment on above: Performed By: #### B EDWARD, TROPI #### [place] [address] Water Chaser: Ramsey Rodriguez MD MCHC (RBC) [Mass/Vol] 31.7 g/dL Normal 28.4-34.8 [facility] Comment on above: Performed By: #### B MP, TROPI #### [facility] [address] [place] [address] Water Chaser: Ramsey Rodriguez MD MCV (RBC) [Entitic vol] 96.0 fL Normal 82.6-102.9 [facility] Comment on above: Performed By: #### B MP, TROPI #### [address] [address] Water Chaser: Ramsey Rodriguez MD Monocytes (Bld) [#/Vol] 0.33 10*3/uL Normal 0.10-1.20 [facility] Comment on above: Performed By: #### B MP, TROPI #### [facility] [address] [place] [address] Water Chaser: Ramsey Rodriguez MD Monocytes/100 WBC (Bld) 6 % Normal 3-12 [facility] Comment on above: Performed By: #### B EDWARD, TROPI #### [address] [address] Water Chaser: Ramsey Rodriguez MD Neutrophil (Seg) 69 % High 36-65 [facility] Comment on above: Performed By: #### B MP, TROPI #### [address] [address] Water Chaser: Ramsey Rodriguez MD NRBC Automated 0.0 per 100 WBC Normal 0.0 [facility] Comment on above: Performed By: #### B EDWARD, TROPI #### [address] [address] Water Chaser: Ramsey Rodriguez MD Platelet mean volume (Bld) [Entitic vol] 10.0 fL Normal 8.1-13.5 [facility] Comment on above: Performed By: #### B EDWARD TROPI #### [address] [address] Water Chaser: Ramsey Rodriguez MD Platelets (Bld) [#/Vol] 190 10*3/uL Normal 138-453 [facility] Comment on above: Performed By: #### B EDWARD, TROPI #### [address] [address] Water Chaser: Ramsey Rodriguez MD RBC (Bld) [#/Vol] 3.48 10*6/uL Low 4.21-5.77 [facility] Comment on above: Performed By: #### B EDWARD, TROPI #### [address] [address] Water Chaser: Ramsey Rodriguez MD RBC morphology finding Nom (Bld) ANISOCYTOSIS PRESENT Normal [facility] Comment on above: Performed By: #### B MP, TROPI #### [address] [address] Water Chaser: Ramsey Rodriguez MD WBC (Bld) [#/Vol] 5.8 10*3/uL Normal 3.5-11.3 [facility] Comment on above: Performed By: #### B MP, TROPI #### [facility] [address] [place] [address] Water Chaser: Ramsey Rodriguez MD Heparin Anti-Xaon 09-02-2023 Heparin Anti-Xa <0.10 Normal [facility] Comment on above: Performed By: #### B MP, TROPI #### [address] [address] Water Chaser: Ramsey Rodriguez MD Basic Metabolic Profon 08-31 Anion gap [Moles/Vol] 7 mmol/L Low 9-16 [facility] Comment on above: Performed By: #### B MP, CDP, HEPXA #### [address] [address] Water Chaser: Ramsey Rodriguez MD Calcium [Mass/Vol] 8.6 mg/dL Normal 8.6-10.4 [facility] Comment on above: Performed By: #### B MP, CDP, HEPXA #### [facility] [address] [place] [address] Water Chaser: Ramsey Rodriguez MD Chloride [Moles/Vol] 102 mmol/L Normal 98-107 [facility] Comment on above: Performed By: #### B MP, CDP, HEPXA #### [facility] [address] [place] [address] Water Chaser: Ramsey Rodriguez MD CO2 [Moles/Vol] 29 mmol/L Normal 20-31 [facility] Comment on above: Performed By: #### B MP, CDP, HEPXA #### [facility] [place] [address] Water Chaser: Ramsey Rodriguez MD Creatinine [Mass/Vol] 0.6 mg/dL Low 0.70-1.20 [facility] Comment on above: Performed By: #### B MP CDP, HEPXA #### [facility] [address] [place] [address] Water Chaser: Ramsey Rodriguez MD GFR/1.73 sq M.predicted among non-blacks MDRD (S/P/Bld) [Vol rate/Area] mL/min/{1.73_m2} Normal >60 [facility] Comment on above: Result Comment: These [...] B FABIANO LEON, HEPXA #### [facility] [address] [place] [address] Water Chaser: Ramsey Rodriguez MD Glucose [Mass/Vol] 98 mg/dL Normal 74-99 [facility] Comment on above: Performed By: #### B FABIANO LEON, HEPXA #### [facility] [address] [place] [address] Water Chaser: Ramsey Rodriguez MD Potassium [Moles/Vol] 4.0 mmol/L Normal 3.7-5.3 [facility] Comment on above: Performed By: #### B EDWARD CDP, HEPXA #### [facility] [address] [place] [address] Water Chaser: Ramsey Rodriguez MD Sodium [Moles/Vol] 138 mmol/L Normal 136-145 [facility] Comment on above: Performed By: #### B MP, CDP, HEPXA #### [address] [address] Water Chaser: Ramsey Rodriguez MD Urea nitrogen [Mass/Vol] 15 mg/dL Normal 8-23 [facility] Comment on above: Performed By: #### B MP, CDP, HEPXA #### [place] [address] Water Chaser: Ramsey Rodriguez MD CBC with Diffon 09-01-2023 Abs. Basophil 0.03 k/uL Normal 0.00-0.20 [facility] Comment on above: Performed By: #### B MP, CDP, HEPXA #### [place] [address] Water Chaser: Ramsey Rodriguez MD Abs.Imm.Granulocyte <0.03 Normal 0.00-0.30 [facility] Comment on above: Performed By: #### B MP, CDP, HEPXA #### [place] [address] Water Chaser: Ramsey Rodriguez MD Abs.Neutrophil (Seg) 5.05 k/uL Normal 1.50-8.10 [facility] Comment on above: Performed By: #### B MP, CDP, HEPXA #### [facility] [address] [place] [address] Water Chaser: Ramsey Rodriguez MD Basophils/100 WBC (Bld) 0 % Normal 0-2 [facility] Comment on above: Performed By: #### B MP, CDP, HEPXA #### [facility] [address] [place] [address] Water Chaser: Ramsey Rodriguez MD Eosinophils (Bld) [#/Vol] 0.30 10*3/uL Normal 0.00-0.44 [facility] Comment on above: Performed By: #### B MP, CDP, HEPXA #### [facility] [address] [place] [address] Water Chaser: Ramsey Rodriguez MD Eosinophils/100 WBC (Bld) 4 % Normal 1-4 [facility] Comment on above: Performed By: #### B MP, CDP, HEPXA #### [address] [address] Water Chaser: Ramsey Rodriguez MD Erythrocyte distribution width (RBC) [Ratio] 16.0 % High 11.8-14.4 [facility] Comment on above: Performed By: #### B MP, CDP, HEPXA #### [facility] [address] [place] [address] Water Chaser: Ramsey Rodriguez MD Hematocrit (Bld) [Volume fraction] 34.5 % Low 40.7-50.3 [facility] Comment on above: Performed By: #### B MP, CDP, HEPXA #### [address] [address] Water Chaser: Ramsey Rodriguez MD Hemoglobin (Bld) [Mass/Vol] 10.9 g/dL Low 13.0-17.0 [facility] Comment on above: Performed By: #### B MP, CDP, HEPXA #### [facility] [address] [place] [address] Water Chaser: Ramsey Rodriguez MD Immature granulocytes/100 WBC (Bld) 0 % Normal 0 [facility] Comment on above: Performed By: #### B MP, CDP, HEPXA #### [facility] [address] [place] [address] Water Chaser: Ramsey Rodriguez MD Lymphocytes (Bld) [#/Vol] 2.11 10*3/uL Normal 1.10-3.70 [facility] Comment on above: Performed By: #### B MP, CDP, HEPXA #### [address] [address] Water Chaser: Ramsey Rodriguez MD Lymphocytes/100 WBC (Bld) 27 % Normal 24-43 [facility] Comment on above: Performed By: #### B MP, CDP, HEPXA #### [address] [address] Water Chaser: Ramsey Rodriguez MD MCH (RBC) [Entitic mass] 30.9 pg Normal 25.2-33.5 [facility] Comment on above: Performed By: #### B MP, CDP, HEPXA #### [address] [address] Water Chaser: Ramsey Rodriguez MD MCHC (RBC) [Mass/Vol] 31.6 g/dL Normal 28.4-34.8 [facility] Comment on above: Performed By: #### B MP, CDP, HEPXA #### [address] [address] Water Chaser: Ramsey Rodriguez MD MCV (RBC) [Entitic vol] 97.7 fL Normal 82.6-102.9 [facility] Comment on above: Performed By: #### B MP, CDP, HEPXA #### [address] [address] Water Chaser: Ramsey Rodriguez MD Monocytes (Bld) [#/Vol] 0.39 10*3/uL Normal 0.10-1.20 [facility] Comment on above: Performed By: #### B MP, CDP, HEPXA #### [address] [address] Water Chaser: Ramsey Rodriguez MD Monocytes/100 WBC (Bld) 5 % Normal 3-12 [facility] Comment on above: Performed By: #### B MP, CDP, HEPXA #### [address] [address] Water Chaser: Ramsey Rodriguez MD Neutrophil (Seg) 64 % Normal 36-65 [facility] Comment on above: Performed By: #### B MP, CDP, HEPXA #### [address] [address] Water Chaser: Ramsey Rodriguez MD NRBC Automated 0.0 per 100 WBC Normal 0.0 [facility] Comment on above: Performed By: #### B MP, CDP, HEPXA #### [address] [address] Water Chaser: Ramsey Rodriguez MD Platelet mean volume (Bld) [Entitic vol] 10.5 fL Normal 8.1-13.5 [facility] Comment on above: Performed By: #### B MP, CDP, HEPXA #### [address] [address] Water Chaser: Ramsey Rodriguez MD Platelets (Bld) [#/Vol] 188 10*3/uL Normal 138-453 [facility] Comment on above: Performed By: #### B MP, CDP, HEPXA #### [address] [address] Water Chaser: Ramsey Rodriguez MD RBC (Bld) [#/Vol] 3.53 10*6/uL Low 4.21-5.77 [facility] Comment on above: Performed By: #### B MP, CDP, HEPXA #### [address] [address] Water Chaser: Ramsey Rodriguez MD RBC morphology finding Nom (Bld) ANISOCYTOSIS PRESENT Normal [facility] Comment on above: Performed By: #### B MP, CDP, HEPXA #### [address] [address] Water Chaser: Ramsey Rodriguez MD WBC (Bld) [#/Vol] 7.9 10*3/uL Normal 3.5-11.3 [facility] Comment on above: Performed By: #### B MP, CDP, HEPXA #### [facility] [address] [place] [address] Water Chaser: Ramsey Rodriguez MD Heparin Anti-Xaon 09-01-2023 Heparin Anti-Xa 0.43 IU/L Normal [facility] Comment on above: Performed By: #### B MP, CDP, HEPXA #### [address] [address] Water Chaser: Ramsey Rodriguez MD Basic Metabolic Profon 08-30 Anion gap [Moles/Vol] 8 mmol/L Low 9-16 [facility] Comment on above: Performed By: #### B MP, CDP, HEPXA #### [facility] [address] [place] [address] Water Chaser: Ramsey Rodriguez MD Calcium [Mass/Vol] 8.2 mg/dL Low 8.6-10.4 [facility] Comment on above: Performed By: #### B MP, CDP, HEPXA #### [facility] [address] [place] [address] Water Chaser: Ramsey Rodriguez MD Chloride [Moles/Vol] 103 mmol/L Normal 98-107 [facility] Comment on above: Performed By: #### B MP, CDP, HEPXA #### [facility] [address] [place] [address] Water Chaser: Ramsey Rodriguez MD CO2 [Moles/Vol] 28 mmol/L Normal 20-31 [facility] Comment on above: Performed By: #### B MP, CDP, HEPXA #### [facility] [address] [place] [address] Water Chaser: Ramsey Rodriguez MD Creatinine [Mass/Vol] 0.6 mg/dL Low 0.70-1.20 [facility] Comment on above: Performed By: #### B FABIANO LEON, HEPXA #### [facility] [address] [place] [address] Water Chaser: Ramsey Rodriguez MD GFR/1.73 sq M.predicted among non-blacks MDRD (S/P/Bld) [Vol rate/Area] mL/min/{1.73_m2} Normal >60 [facility] Comment on above: Result Comment: These [...] By: #### B FABIANO LEON, HEPXA #### [facility] [address] [place] [address] Water Chaser: Ramsey Rodriguez MD Glucose [Mass/Vol] 104 mg/dL High 74-99 [facility] Comment on above: Performed By: #### B FABIANO LEON, HEPXA #### [facility] [address] [place] [address] Water Chaser: Ramsey Rodriguez MD Potassium [Moles/Vol] 3.5 mmol/L Low 3.7-5.3 [facility] Comment on above: Performed By: #### B FABIANO LEON, HEPXA #### [facility] [address] [place] [address] Water Chaser: Ramsey Rodriguez MD Sodium [Moles/Vol] 139 mmol/L Normal 136-145 [facility] Comment on above: Performed By: #### B FABIANO LEON, HEPXA #### [facility] [address] [place] [id number] Water Chaser: Ramsey Rodriguez MD Urea nitrogen [Mass/Vol] 17 mg/dL Normal 8-23 [facility] Comment on above: Performed By: #### B MP, CDP, HEPXA #### [address] [address] Water Chaser: Ramsey Rodriguez MD CBC with Diffon 08-31-2023 Abs. Basophil <0.03 Normal 0.00-0.20 [facility] Comment on above: Performed By: #### T ROPI #### [address] [address] Water Chaser: Ramsey Rodriguez MD Abs.Imm.Granulocyte 0.03 k/uL Normal 0.00-0.30 [facility] Comment on above: Performed By: #### T ROPI #### [address] [address] Water Chaser: Ramsey Rodriguez MD Abs.Neutrophil (Seg) 4.38 k/uL Normal 1.50-8.10 [facility] Comment on above: Performed By: #### T ROPI #### [address] [address] Water Chaser: Ramsey Rodriguez MD Basophils/100 WBC (Bld) 0 % Normal 0-2 [facility] Comment on above: Performed By: #### T ROPI #### [address] [address] Water Chaser: Ramsey Rodriguez MD Eosinophils (Bld) [#/Vol] 0.21 10*3/uL Normal 0.00-0.44 [facility] Comment on above: Performed By: #### T ROPI #### [address] [address] Water Chaser: Ramsey Rodriguez MD Eosinophils/100 WBC (Bld) 3 % Normal 1-4 [facility] Comment on above: Performed By: #### T ROPI #### [address] [address] Water Chaser: Ramsey Rodriguez MD Erythrocyte distribution width (RBC) [Ratio] 15.9 % High 11.8-14.4 [facility] Comment on above: Performed By: #### T ROPI #### [address] [address] Water Chaser: Ramsey Rodriguez MD Hematocrit (Bld) [Volume fraction] 33.3 % Low 40.7-50.3 [facility] Comment on above: Performed By: #### T ROPI #### [address] [address] Water Chaser: Ramsey Rodriguez MD Hemoglobin (Bld) [Mass/Vol] 10.4 g/dL Low 13.0-17.0 [facility] Comment on above: Performed By: #### T ROPI #### [address] [address] Water Chaser: Ramsey Rodriugez MD Immature granulocytes/100 WBC (Bld) 1 % High 0 [facility] Comment on above: Performed By: #### T ROPI #### [address] [address] Water Chaser: Ramsey Rodriguez MD Lymphocytes (Bld) [#/Vol] 1.31 10*3/uL Normal 1.10-3.70 [facility] Comment on above: Performed By: #### T ROPI #### [address] [address] Water Chaser: Ramsey Rodriguez MD Lymphocytes/100 WBC (Bld) 21 % Low 24-43 [facility] Comment on above: Performed By: #### T ROPI #### [address] [address] Water Chaser: Ramsey Rodriguez MD MCH (RBC) [Entitic mass] 30.9 pg Normal 25.2-33.5 [facility] Comment on above: Performed By: #### T ROPI #### [address] [address] Water Chaser: Ramsey Rodriguez MD MCHC (RBC) [Mass/Vol] 31.2 g/dL Normal 28.4-34.8 [facility] Comment on above: Performed By: #### T ROPI #### [address] [address] Water Chaser: Ramsey Rodriguez MD MCV (RBC) [Entitic vol] 98.8 fL Normal 82.6-102.9 [facility] Comment on above: Performed By: #### T ROPI #### [address] [address] Water Chaser: Ramsey Rodriguez MD Monocytes (Bld) [#/Vol] 0.31 10*3/uL Normal 0.10-1.20 [facility] Comment on above: Performed By: #### T ROPI #### [address] [address] Water Chaser: Ramsey Rodriguez MD Monocytes/100 WBC (Bld) 5 % Normal 3-12 [facility] Comment on above: Performed By: #### T ROPI #### [address] [address] Water Chaser: Ramsey Rodriguez MD Neutrophil (Seg) 70 % High 36-65 [facility] Comment on above: Performed By: #### T ROPI #### [address] [address] Water Chaser: Ramsey Rodriguez MD NRBC Automated 0.0 per 100 WBC Normal 0.0 [facility] Comment on above: Performed By: #### T ROPI #### [address] [address] Water Chaser: Ramsey Rodriguez MD Platelet mean volume (Bld) [Entitic vol] 10.4 fL Normal 8.1-13.5 [facility] Comment on above: Performed By: #### T ROPI #### [address] [address] Water Chaser: Ramsey Rodriguez MD Platelets (Bld) [#/Vol] 160 10*3/uL Normal 138-453 [facility] Comment on above: Performed By: #### T ROPI #### [address] [address] Water Chaser: Ramsey Rodriguez MD RBC (Bld) [#/Vol] 3.37 10*6/uL Low 4.21-5.77 [facility] Comment on above: Performed By: #### T ROPI #### [address] [address] Water Chaser: Ramsey Rodriguez MD RBC morphology finding Nom (Bld) ANISOCYTOSIS PRESENT Normal [facility] Comment on above: Performed By: #### T ROPI #### [address] [address] Water Chaser: Ramsey Rodriguez MD WBC (Bld) [#/Vol] 6.3 10*3/uL Normal 3.5-11.3 [facility] Comment on above: Performed By: #### T ROPI #### [address] [address] Water Chaser: Ramsey Rodriguez MD Heparin Anti-Xaon 08-31-2023 Heparin Anti-Xa 0.39 IU/L Normal [facility] Comment on above: Performed By: #### H EPXA, CBC, PTT, PT #### [facility] [place] [address] Water Chaser: Ramsey Rodriguez MD Basic Metabolic Profon 08-29 Anion gap [Moles/Vol] 7 mmol/L Low 9-16 [facility] Comment on above: Performed By: #### B MP, CDP, HEPXA #### [address] [address] Water Chaser: Ramsey Rodirguez MD Calcium [Mass/Vol] 8.2 mg/dL Low 8.6-10.4 [facility] Comment on above: Performed By: #### B MP, CDP, HEPXA #### [facility] [address] [place] [address] Water Chaser: Ramsey Rodriguez MD Chloride [Moles/Vol] 104 mmol/L Normal 98-107 [facility] Comment on above: Performed By: #### B MP, CDP, HEPXA #### [facility] [address] [place] [address] Water Chaser: Ramsey Rodriguez MD CO2 [Moles/Vol] 29 mmol/L Normal 20-31 [facility] Comment on above: Performed By: #### B MP, CDP, HEPXA #### [facility] [address] [place] [address] Water Chaser: Ramsey Rodriguez MD Creatinine [Mass/Vol] 0.7 mg/dL Normal 0.70-1.20 [facility] Comment on above: Performed By: #### B MP, CDP, HEPXA #### [facility] [address] [place] [address] Water Chaser: Ramsey Rodriguez MD GFR/1.73 sq M.predicted among non-blacks MDRD (S/P/Bld) [Vol rate/Area] mL/min/{1.73_m2} Normal >60 [facility] Comment on above: Result Comment: These [...] B FABIANO LEON, HEPXA #### [facility] [address] [place] [address] Water Chaser: Ramsey Rodriguez MD Glucose [Mass/Vol] 94 mg/dL Normal 74-99 [facility] Comment on above: Performed By: #### B FABIANO LEON, HEPXA #### [facility] [address] [place] [address] Water Chaser: Ramsey Rodriguez MD Potassium [Moles/Vol] 3.6 mmol/L Low 3.7-5.3 [facility] Comment on above: Performed By: #### B FABIANO LEON, HEPXA #### [facility] [address] [place] [address] Water Chaser: Ramsey Rodriguez MD Sodium [Moles/Vol] 140 mmol/L Normal 136-145 [facility] Comment on above: Performed By: #### B FABIANO LEON, HEPXA #### [facility] [address] [place] [address] Water Chaser: Ramsey Rodriguez MD Urea nitrogen [Mass/Vol] 14 mg/dL Normal 8-23 [facility] Comment on above: Performed By: #### B FABIANO LEON, HEPXA #### [facility] [address] [place] [address] Water Chaser: Ramsey Rodriguez MD CBC with Diffon 08-30-2023 Abs. Basophil <0.03 Normal 0.00-0.20 [facility] Comment on above: Performed By: #### B EDWARD CDP, HEPXA #### [place] [address] [place] [address] Water Chaser: Ramsey Rodriguez MD Abs.Imm.Granulocyte 0.03 k/uL Normal 0.00-0.30 [facility] Comment on above: Performed By: #### B MP, CDP, HEPXA #### [address] [address] Water Chaser: Ramsey Rodriguez MD Abs.Neutrophil (Seg) 3.72 k/uL Normal 1.50-8.10 [facility] Comment on above: Performed By: #### B MP, CDP, HEPXA #### [address] [address] Water Chaser: Ramsey Rodriguez MD Basophils/100 WBC (Bld) 0 % Normal 0-2 [facility] Comment on above: Performed By: #### B MP, CDP, HEPXA #### [address] [address] Water Chaser: Ramsey Rodriguez MD Eosinophils (Bld) [#/Vol] 0.22 10*3/uL Normal 0.00-0.44 [facility] Comment on above: Performed By: #### B MP, CDP, HEPXA #### [address] [address] Water Chaser: Ramsey Rodriguez MD Eosinophils/100 WBC (Bld) 4 % Normal 1-4 [facility] Comment on above: Performed By: #### B MP, CDP, HEPXA #### [facility] [address] [place] [address] Water Chaser: Ramsey Rodriguez MD Erythrocyte distribution width (RBC) [Ratio] 15.8 % High 11.8-14.4 [facility] Comment on above: Performed By: #### B MP, CDP, HEPXA #### [facility] [address] Water Chaser: Ramsey Rodriguez MD Hematocrit (Bld) [Volume fraction] 31.1 % Low 40.7-50.3 [facility] Comment on above: Performed By: #### B MP, CDP, HEPXA #### [address] [address] Water Chaser: Ramsey Rodriguez MD Hemoglobin (Bld) [Mass/Vol] 10.1 g/dL Low 13.0-17.0 [facility] Comment on above: Performed By: #### B MP, CDP, HEPXA #### [address] [address] Water Chaser: Ramsey Rodriguez MD Immature granulocytes/100 WBC (Bld) 1 % High 0 [facility] Comment on above: Performed By: #### B MP, CDP, HEPXA #### [address] [address] Water Chaser: Ramsey Rodriguez MD Lymphocytes (Bld) [#/Vol] 1.25 10*3/uL Normal 1.10-3.70 [facility] Comment on above: Performed By: #### B MP, CDP, HEPXA #### [address] [address] Water Chaser: Ramsey Rodriguez MD Lymphocytes/100 WBC (Bld) 22 % Low 24-43 [facility] Comment on above: Performed By: #### B MP, CDP, HEPXA #### [address] [address] Water Chaser: Ramsey Rodriguez MD MCH (RBC) [Entitic mass] 30.6 pg Normal 25.2-33.5 [facility] Comment on above: Performed By: #### B MP, CDP, HEPXA #### [facility] [address] [place] [address] Water Chaser: Ramsey Rodriguez MD MCHC (RBC) [Mass/Vol] 32.5 g/dL Normal 28.4-34.8 [facility] Comment on above: Performed By: #### B MP, CDP, HEPXA #### [address] [address] Water Chaser: Ramsey Rodriguez MD MCV (RBC) [Entitic vol] 94.2 fL Normal 82.6-102.9 [facility] Comment on above: Performed By: #### B MP, CDP, HEPXA #### [address] [address] Water Chaser: Ramsey Rodriguez MD Monocytes (Bld) [#/Vol] 0.35 10*3/uL Normal 0.10-1.20 [facility] Comment on above: Performed By: #### B MP, CDP, HEPXA #### [address] [address] Water Chaser: Ramsey Rodriguez MD Monocytes/100 WBC (Bld) 6 % Normal 3-12 [facility] Comment on above: Performed By: #### B MP, CDP, HEPXA #### [address] [address] Water Chaser: Ramsey Rodriguez MD Neutrophil (Seg) 67 % High 36-65 [facility] Comment on above: Performed By: #### B MP, CDP, HEPXA #### [address] [address] Water Chaser: Ramsey Rodriguez MD NRBC Automated 0.0 per 100 WBC Normal 0.0 [facility] Comment on above: Performed By: #### B MP, CDP, HEPXA #### [facility] [address] [place] [address] Water Chaser: Ramsey Rodriguez MD Platelet mean volume (Bld) [Entitic vol] 10.2 fL Normal 8.1-13.5 [facility] Comment on above: Performed By: #### B MP, CDP, HEPXA #### [address] [address] Water Chaser: Ramsey Rodriguez MD Platelets (Bld) [#/Vol] 158 10*3/uL Normal 138-453 [facility] Comment on above: Performed By: #### B MP, CDP, HEPXA #### [address] [address] Water Chaser: Ramsey Rodriguez MD RBC (Bld) [#/Vol] 3.30 10*6/uL Low 4.21-5.77 [facility] Comment on above: Performed By: #### B MP, CDP, HEPXA #### [address] [address] Water Chaser: Ramsey Rodriguez MD RBC morphology finding Nom (Bld) ANISOCYTOSIS PRESENT Normal [facility] Comment on above: Performed By: #### B MP, CDP, HEPXA #### [address] [address] Water Chaser: Ramsey Rodriguez MD WBC (Bld) [#/Vol] 5.6 10*3/uL Normal 3.5-11.3 [facility] Comment on above: Performed By: #### B MP, CDP, HEPXA #### [address] [address] Water Chaser: Ramsey Rodriguez MD Heparin Anti-Xaon 08-30-2023 Heparin Anti-Xa 0.43 IU/L Normal [facility] Comment on above: Performed By: #### H EPXA, CBC, PTT, PT #### [address] [address] Water Chaser: Ramsey Rodriguez MD Heparin Anti-Xa 0.42 IU/L Normal [facility] Comment on above: Performed By: #### B FABIANO LEON, HEPXA #### [facility] [place] [address] Water Chaser: Ramsey Rodriguez MD Heparin Anti-Xa 0.27 IU/L Normal [facility] Comment on above: Performed By: #### B MP, CDP, HEPXA #### [facility] [address] [place] [address] Water Chaser: Ramsey Rodriguez MD Troponinon 08-30-2023 Troponin, High Sens 138 ng/L Critically high 0-22 [facility] Comment on above: Result Comment: High Sensitivity Troponin values cannot be compared with other Troponin methodologies. Previous Alert Value Reported Performed By: #### B EDWARD CDP, HEPXA #### [address] [address] Water Chaser: Ramsey Rodriguez MD Basic Metabolic Profon 08-28 Anion gap [Moles/Vol] 6 mmol/L Low 9-16 [facility] Comment on above: Performed By: #### B EDWARD CDP, HEPXA #### [facility] [address] [place] [address] Water Chaser: Ramsey Rodriguez MD Calcium [Mass/Vol] 8.2 mg/dL Low 8.6-10.4 [facility] Comment on above: Performed By: #### B MP, CDP, HEPXA #### [facility] [address] [place] [address] Water Chaser: Ramsey Rodriguez MD Chloride [Moles/Vol] 106 mmol/L Normal 98-107 [facility] Comment on above: Performed By: #### B MP, CDP, HEPXA #### [facility] [address] [place] [address] Water Chaser: Ramsey Rodriguez MD CO2 [Moles/Vol] 29 mmol/L Normal 20-31 [facility] Comment on above: Performed By: #### B EDWARD CDP, HEPXA #### [facility] [address] [place] [address] Water Chaser: Ramsey Rodriguez MD Creatinine [Mass/Vol] 0.6 mg/dL Low 0.70-1.20 [facility] Comment on above: Performed By: #### B MP, CDP, HEPXA #### [facility] [address] [place] [address] Water Chaser: Ramsey Rodriguez MD GFR/1.73 sq M.predicted among non-blacks MDRD (S/P/Bld) [Vol rate/Area] mL/min/{1.73_m2} Normal >60 [facility] Comment on above: Result Comment: These [...] B FABIANO LEON, HEPXA #### [facility] [address] [place] [address] Water Chaser: Ramsey Rodriguez MD Glucose [Mass/Vol] 85 mg/dL Normal 74-99 [facility] Comment on above: Performed By: #### B EDWARD CDP, HEPXA #### [facility] [address] [place] [address] Water Chaser: Ramsey Rodriguez MD Potassium [Moles/Vol] 3.9 mmol/L Normal 3.7-5.3 [facility] Comment on above: Performed By: #### B EDWARD, CDP, HEPXA #### [facility] [address] [place] [address] Water Chaser: Ramsey Rodriguez MD Sodium [Moles/Vol] 141 mmol/L Normal 136-145 [facility] Comment on above: Performed By: #### B MP, CDP, HEPXA #### [address] [address] Water Chaser: Ramsey Rodriguez MD Urea nitrogen [Mass/Vol] 9 mg/dL Normal 8-23 [facility] Comment on above: Performed By: #### B MP, CDP, HEPXA #### [address] [address] Water Chaser: Ramsey Rodriguez MD CBC with Diffon 08-29-2023 Abs. Basophil <0.03 Normal 0.00-0.20 [facility] Comment on above: Performed By: #### B MP, CDP, HEPXA #### [address] [address] Water Chaser: Ramsey Rodriguez MD Abs.Imm.Granulocyte <0.03 Normal 0.00-0.30 [facility] Comment on above: Performed By: #### B MP, CDP, HEPXA #### [address] [address] Water Chaser: Ramsey Rodriguez MD Abs.Neutrophil (Seg) 3.04 k/uL Normal 1.50-8.10 [facility] Comment on above: Performed By: #### B MP, CDP, HEPXA #### [address] [address] Water Chaser: Ramsey Rodriguez MD Basophils/100 WBC (Bld) 0 % Normal 0-2 [facility] Comment on above: Performed By: #### B MP, CDP, HEPXA #### [facility] [address] [place] [address] Water Chaser: Ramsey Rodriguez MD Eosinophils (Bld) [#/Vol] 0.28 10*3/uL Normal 0.00-0.44 [facility] Comment on above: Performed By: #### B MP, CDP, HEPXA #### [address] [address] Water Chaser: Ramsey Rodriguez MD Eosinophils/100 WBC (Bld) 6 % High 1-4 [facility] Comment on above: Performed By: #### B MP, CDP, HEPXA #### [place] [address] Water Chaser: Ramsey Rodriguez MD Erythrocyte distribution width (RBC) [Ratio] 15.7 % High 11.8-14.4 [facility] Comment on above: Performed By: #### B MP, CDP, HEPXA #### [place] [address] Water Chaser: Ramsey Rodriguez MD Hematocrit (Bld) [Volume fraction] 32.4 % Low 40.7-50.3 [facility] Comment on above: Performed By: #### B MP, CDP, HEPXA #### [place] [address] Water Chaser: Ramsey Rodirguez MD Hemoglobin (Bld) [Mass/Vol] 10.2 g/dL Low 13.0-17.0 [facility] Comment on above: Performed By: #### B MP, CDP, HEPXA #### [address] [address] Water Chaser: Ramsey Rodriguez MD Immature granulocytes/100 WBC (Bld) 0 % Normal 0 [facility] Comment on above: Performed By: #### B MP, CDP, HEPXA #### [address] [address] Water Chaser: Ramsey Rodriguez MD Lymphocytes (Bld) [#/Vol] 1.36 10*3/uL Normal 1.10-3.70 [facility] Comment on above: Performed By: #### B MP, CDP, HEPXA #### [address] [address] Water Chaser: Ramsey Rodriguez MD Lymphocytes/100 WBC (Bld) 27 % Normal 24-43 [facility] Comment on above: Performed By: #### B MP, CDP, HEPXA #### [address] [address] Water Chaser: Ramsey Rodriguez MD MCH (RBC) [Entitic mass] 30.8 pg Normal 25.2-33.5 [facility] Comment on above: Performed By: #### B MP, CDP, HEPXA #### [address] [address] Water Chaser: Ramsey Rodriguez MD MCHC (RBC) [Mass/Vol] 31.5 g/dL Normal 28.4-34.8 [facility] Comment on above: Performed By: #### B MP, CDP, HEPXA #### [address] [address] Water Chaser: Ramsey Rodriguez MD MCV (RBC) [Entitic vol] 97.9 fL Normal 82.6-102.9 [facility] Comment on above: Performed By: #### B MP, CDP, HEPXA #### [address] [address] Water Chaser: Ramsey Rodriguez MD Monocytes (Bld) [#/Vol] 0.37 10*3/uL Normal 0.10-1.20 [facility] Comment on above: Performed By: #### B MP, CDP, HEPXA #### [address] [address] Water Chaser: Ramsey Rodriguez MD Monocytes/100 WBC (Bld) 7 % Normal 3-12 [facility] Comment on above: Performed By: #### B MP, CDP, HEPXA #### [facility] [address] [place] [address] Water Chaser: Ramsey Rodriguez MD Neutrophil (Seg) 60 % Normal 36-65 [facility] Comment on above: Performed By: #### B MP, CDP, HEPXA #### [facility] [address] [place] [address] Water Chaser: Ramsey Rodriguez MD NRBC Automated 0.0 per 100 WBC Normal 0.0 [facility] Comment on above: Performed By: #### B MP, CDP, HEPXA #### [facility] [address] [place] [address] Water Chaser: Ramsey Rodriguez MD Platelet mean volume (Bld) [Entitic vol] 10.4 fL Normal 8.1-13.5 [facility] Comment on above: Performed By: #### B MP, CDP, HEPXA #### [address] [address] Water Chaser: Ramsey Rodriguez MD Platelets (Bld) [#/Vol] 144 10*3/uL Normal 138-453 [facility] Comment on above: Performed By: #### B MP, CDP, HEPXA #### [address] [address] Water Chaser: Ramsey Rodriguez MD RBC (Bld) [#/Vol] 3.31 10*6/uL Low 4.21-5.77 [facility] Comment on above: Performed By: #### B MP, CDP, HEPXA #### [facility] [address] [place] [address] Water Chaser: Ramsey Rodriguez MD RBC morphology finding Nom (Bld) ANISOCYTOSIS PRESENT Normal [facility] Comment on above: Performed By: #### B MP, CDP, HEPXA #### [facility] [address] [place] [address] Water Chaser: Ramsey Rodriguez MD WBC (Bld) [#/Vol] 5.1 10*3/uL Normal 3.5-11.3 [facility] Comment on above: Performed By: #### B MP, CDP, HEPXA #### [address] [address] Water Chaser: Ramsey Rodriguez MD Heparin Anti-Xaon 08-29-2023 Heparin Anti-Xa 0.35 IU/L Normal [facility] Comment on above: Performed By: #### H EPXA, CBC, PTT, PT #### [facility] [address] [place] [address] Water Chaser: Ramsey Rodriguez MD Heparin Anti-Xa 0.38 IU/L Normal [facility] Comment on above: Performed By: #### B MP, TROPI #### [facility] [address] [place] [address] Water Chaser: Ramsey Rodriguez MD Heparin Anti-Xa 0.40 IU/L Normal [facility] Comment on above: Performed By: #### B MP, CDP, HEPXA #### [facility] [address] [place] [address] Water Chaser: Ramsey Rodriguez MD Magnesiumon 08-29-2023 Magnesium [Mass/Vol] 2.1 mg/dL Normal 1.6-2.4 [facility] Comment on above: Performed By: #### B MP, CDP, HEPXA #### [facility] [address] [place] [address] Water Chaser: Ramsey Rodriguez MD Phosphorus, Inorg.on 024 Phosphorus, Inorg. 2.7 mg/dL Normal 2.5-4.5 [facility] Comment on above: Performed By: #### B MP, CDP, HEPXA #### [facility] [place] [address] Water Chaser: Ramsey Rodriguez MD Troponinon 08-29-2023 Troponin, High Sens 142 ng/L Critically high 0-22 [facility] Comment on above: Result Comment: High Sensitivity Troponin values cannot be compared with other Troponin methodologies. Previous Alert Value Reported Performed By: #### T ROPI #### [facility] [address] [place] [address] Water Chaser: Ramsey Rodriguez MD Troponin, High Sens 159 ng/L Critically high 0-22 [facility] Comment on above: Result Comment: High Sensitivity Troponin values cannot be compared with other Troponin methodologies. Previous Alert Value Reported Performed By: #### B FABIANO LEON, HEPXA #### [facility] [address] [place] [address] Water Chaser: Ramsey Rodriguez MD Troponin, High Sens 162 ng/L Critically high 0-22 [facility] Comment on above: Result Comment: High Sensitivity Troponin values cannot be compared with other Troponin methodologies. Previous Alert Value Reported Performed By: #### B FABIANO LEON, HEPXA #### [facility] [address] [place] [address] Water Chaser: Ramsey Rodriguez MD APTTon 08-28-2023 aPTT Coag (Bld) [Time] 28.4 s Normal 23.0-36.5 [facility] Comment on above: Result Comment: IV Heparin Therapy Range: 66.0-92.0 sec Performed By: #### H EPXA, CBC, PTT, PT #### [facility] [address] [place] [address] Water Chaser: Ramsey Rodriguez MD Basic Metabolic Profon 08-27 Anion gap [Moles/Vol] 8 mmol/L Low 9-16 [facility] Comment on above: Performed By: #### B MP, TROPI #### [facility] [address] [place] [address] Water Chaser: Ramsey Rodriguez MD Calcium [Mass/Vol] 8.3 mg/dL Low 8.6-10.4 [facility] Comment on above: Performed By: #### B EDWARD, TROPI #### [facility] [address] [place] [address] Water Chaser: Ramsey Rodriguez MD Chloride [Moles/Vol] 103 mmol/L Normal 98-107 [facility] Comment on above: Performed By: #### B EDWARD, TROPI #### [facility] [address] [place] [address] Water Chaser: Ramsey Rodriguez MD CO2 [Moles/Vol] 27 mmol/L Normal 20-31 [facility] Comment on above: Performed By: #### B EDWARD, TROPI #### [facility] [address] [place] [address] Water Chaser: Ramsey Rodriguez MD Creatinine [Mass/Vol] 0.5 mg/dL Low 0.70-1.20 [facility] Comment on above: Performed By: #### B EDWARD, TROPI #### [facility] [address] [place] [address] Water Chaser: Ramsey Rodriguez MD GFR/1.73 sq M.predicted among non-blacks MDRD (S/P/Bld) [Vol rate/Area] mL/min/{1.73_m2} Normal >60 [facility] Comment on above: Result Comment: These [...] Performed By: #### B EDWARD, TROPI #### [facility] [address] [place] [address] Water Chaser: Ramsey Rodriguez MD Glucose [Mass/Vol] 112 mg/dL High 74-99 [facility] Comment on above: Performed By: #### B EDWARD TROPI #### [facility] [address] [place] [address] Water Chaser: Ramsey Rodriguez MD Potassium [Moles/Vol] 3.7 mmol/L Normal 3.7-5.3 [facility] Comment on above: Performed By: #### B EDWARD TROPI #### [facility] [address] [place] [address] Water Chaser: Ramsey Rodriguez MD Sodium [Moles/Vol] 138 mmol/L Normal 136-145 [facility] Comment on above: Performed By: #### B EDWARD TROPI #### [facility] [address] [place] [address] Water Chaser: Ramsey Rodriguez MD Urea nitrogen [Mass/Vol] 9 mg/dL Normal 8-23 [facility] Comment on above: Performed By: #### B EDWARD TROPI #### [facility] [address] [place] [address] Water Chaser: Ramsey Rodriguez MD Anion gap [Moles/Vol] 8 mmol/L Low 9-16 [facility] Comment on above: Performed By: #### T ROPI #### [address] [address] Water Chaser: Ramsey Rodriguez MD Chloride [Moles/Vol] 105 mmol/L Normal 98-107 [facility] Comment on above: Performed By: #### T ROPI #### [facility] [address] [place] [address] Water Chaser: Ramsey Rodriguez MD Potassium [Moles/Vol] 3.5 mmol/L Low 3.7-5.3 [facility] Comment on above: Performed By: #### T ROPI #### [address] [address] Water Chaser: Ramsey Rodriguez MD Sodium [Moles/Vol] 139 mmol/L Normal 136-145 [facility] Comment on above: Performed By: #### T ROPI #### [address] [address] Water Chaser: Ramsey Rodriguez MD Calcium [Mass/Vol] 7.9 mg/dL Low 8.6-10.4 [facility] Comment on above: Performed By: #### T ROPI #### [address] [address] Water Chaser: Ramsey Rodriguez MD CO2 [Moles/Vol] 26 mmol/L Normal 20-31 [facility] Comment on above: Performed By: #### T ROPI #### [address] [address] Water Chaser: Ramsey Rodriguez MD Creatinine [Mass/Vol] 0.5 mg/dL Low 0.70-1.20 [facility] Comment on above: Performed By: #### T ROPI #### [address] [address] Water Chaser: Ramsey Rodriguez MD GFR/1.73 sq M.predicted among non-blacks MDRD (S/P/Bld) [Vol rate/Area] mL/min/{1.73_m2} Normal >60 [facility] Comment on above: Result Comment: These [...] secretion. Performed By: #### T ROPI #### [address] [address] Water Chaser: Ramsey Rodriguez MD Glucose [Mass/Vol] 106 mg/dL High 74-99 [facility] Comment on above: Performed By: #### T ROPI #### [address] [address] Water Chaser: Ramsey Rodriguez MD Urea nitrogen [Mass/Vol] 10 mg/dL Normal 8-23 [facility] Comment on above: Performed By: #### T ROPI #### [address] [address] Water Chaser: Ramsey Rodriguez MD CBCon 08-28-2023 Erythrocyte distribution width (RBC) [Ratio] 15.6 % High 11.8-14.4 [facility] Comment on above: Performed By: #### H EPXA, CBC, PTT, PT #### [facility] [address] [place] [address] Water Chaser: Ramsey Rodriguez MD Hematocrit (Bld) [Volume fraction] 34.1 % Low 40.7-50.3 [facility] Comment on above: Performed By: #### H EPXA, CBC, PTT, PT #### [facility] [address] [place] [address] Water Chaser: Ramsey Rodriguez MD Hemoglobin (Bld) [Mass/Vol] 10.7 g/dL Low 13.0-17.0 [facility] Comment on above: Performed By: #### H EPXA, CBC, PTT, PT #### [facility] [address] [place] [address] Water Chaser: Ramsey Rodriguez MD MCH (RBC) [Entitic mass] 30.5 pg Normal 25.2-33.5 [facility] Comment on above: Performed By: #### H EPXA, CBC, PTT, PT #### [address] [address] Water Chaser: Ramsey Rodriguez MD MCHC (RBC) [Mass/Vol] 31.4 g/dL Normal 28.4-34.8 [facility] Comment on above: Performed By: #### H EPXA, CBC, PTT, PT #### [address] [address] Water Chaser: Ramsey Rodriguez MD MCV (RBC) [Entitic vol] 97.2 fL Normal 82.6-102.9 [facility] Comment on above: Performed By: #### H EPXA, CBC, PTT, PT #### [address] [address] Water Chaser: Ramsey Rodriguez MD NRBC Automated 0.0 per 100 WBC Normal 0.0 [facility] Comment on above: Performed By: #### H EPXA, CBC, PTT, PT #### [address] [address] Water Chaser: Ramsey Rodriguez MD Platelet mean volume (Bld) [Entitic vol] 10.2 fL Normal 8.1-13.5 [facility] Comment on above: Performed By: #### H EPXA, CBC, PTT, PT #### [address] [address] Water Chaser: Ramsey Rodriguez MD Platelets (Bld) [#/Vol] 166 10*3/uL Normal 138-453 [facility] Comment on above: Performed By: #### H EPXA, CBC, PTT, PT #### [address] [address] Water Chaser: Ramsey Rodriguez MD RBC (Bld) [#/Vol] 3.51 10*6/uL Low 4.21-5.77 [facility] Comment on above: Performed By: #### H EPXA, CBC, PTT, PT #### [address] [address] Water Chaser: Ramsey Rodriguez MD WBC (Bld) [#/Vol] 6.5 10*3/uL Normal 3.5-11.3 [facility] Comment on above: Performed By: #### H EPXA, CBC, PTT, PT #### [address] [address] Water Chaser: Ramsey Rodriguez MD CBC with Diffon 08-28-2023 Abs. Basophil <0.03 Normal 0.00-0.20 [facility] Comment on above: Performed By: #### T ROPI #### [place] [address] Water Chaser: Ramsey Rodriguez MD Abs.Imm.Granulocyte <0.03 Normal 0.00-0.30 [facility] Comment on above: Performed By: #### T ROPI #### [place] [address] Water Chaser: Ramsey Rodriguez MD Abs.Neutrophil (Seg) 4.13 k/uL Normal 1.50-8.10 [facility] Comment on above: Performed By: #### T ROPI #### [place] [address] Water Chaser: Ramsey Rodriguez MD Basophils/100 WBC (Bld) 0 % Normal 0-2 [facility] Comment on above: Performed By: #### T ROPI #### [place] [address] Water Chaser: Ramsey Rodriguez MD Eosinophils (Bld) [#/Vol] 0.27 10*3/uL Normal 0.00-0.44 [facility] Comment on above: Performed By: #### T ROPI #### [address] [place] [address] Water Chaser: Ramsey Rodriguez MD Eosinophils/100 WBC (Bld) 5 % High 1-4 [facility] Comment on above: Performed By: #### T ROPI #### [address] [address] Water Chaser: Ramsey Rodriguez MD Erythrocyte distribution width (RBC) [Ratio] 15.7 % High 11.8-14.4 [facility] Comment on above: Performed By: #### T ROPI #### [address] [address] Water Chaser: Ramsey Rodriguez MD Hematocrit (Bld) [Volume fraction] 34.6 % Low 40.7-50.3 [facility] Comment on above: Performed By: #### T ROPI #### [address] [address] Water Chaser: Ramsey Rodriguez MD Hemoglobin (Bld) [Mass/Vol] 10.5 g/dL Low 13.0-17.0 [facility] Comment on above: Performed By: #### T ROPI #### [address] [address] Water Chaser: Ramsey Rodriguez MD Immature granulocytes/100 WBC (Bld) 0 % Normal 0 [facility] Comment on above: Performed By: #### T ROPI #### [address] [address] Water Chaser: Ramsey Rodriguez MD Lymphocytes (Bld) [#/Vol] 1.01 10*3/uL Low 1.10-3.70 [facility] Comment on above: Performed By: #### T ROPI #### [address] [address] Water Chaser: Ramsey Rodriguez MD Lymphocytes/100 WBC (Bld) 17 % Low 24-43 [facility] Comment on above: Performed By: #### T ROPI #### [address] [address] Water Chaser: Ramsey Rodriguez MD MCH (RBC) [Entitic mass] 30.8 pg Normal 25.2-33.5 [facility] Comment on above: Performed By: #### T ROPI #### [place] [address] Water Chaser: Ramsey Rodriguez MD MCHC (RBC) [Mass/Vol] 30.3 g/dL Normal 28.4-34.8 [facility] Comment on above: Performed By: #### T ROPI #### [place] [address] Water Chaser: Ramsey Rodriguez MD MCV (RBC) [Entitic vol] 101.5 fL Normal 82.6-102.9 [facility] Comment on above: Performed By: #### T ROPI #### [place] [address] Water Chaser: Ramsey Rodriguez MD Monocytes (Bld) [#/Vol] 0.39 10*3/uL Normal 0.10-1.20 [facility] Comment on above: Performed By: #### T ROPI #### [place] [address] Water Chaser: Ramsey Rodriguez MD Monocytes/100 WBC (Bld) 7 % Normal 3-12 [facility] Comment on above: Performed By: #### T ROPI #### [address] [address] Water Chaser: Ramsey Rodriguez MD Neutrophil (Seg) 71 % High 36-65 [facility] Comment on above: Performed By: #### T ROPI #### [address] [address] Water Chaser: Ramsey Rodriguez MD NRBC Automated 0.0 per 100 WBC Normal 0.0 [facility] Comment on above: Performed By: #### T ROPI #### [address] [address] Water Chaser: Ramsey Rodriguez MD Platelet mean volume (Bld) [Entitic vol] 10.3 fL Normal 8.1-13.5 [facility] Comment on above: Performed By: #### T ROPI #### [address] [address] Water Chaser: Ramsey Rodriguez MD Platelets (Bld) [#/Vol] 145 10*3/uL Normal 138-453 [facility] Comment on above: Performed By: #### T ROPI #### [address] [address] Water Chaser: Ramsey Rodriguez MD RBC (Bld) [#/Vol] 3.41 10*6/uL Low 4.21-5.77 [facility] Comment on above: Performed By: #### T ROPI #### [address] [address] Water Chaser: Ramsey Rodriguez MD RBC morphology finding Nom (Bld) ANISOCYTOSIS PRESENT Normal [facility] Comment on above: Performed By: #### T ROPI #### [address] [address] Water Chaser: Ramsey Rodriguez MD WBC (Bld) [#/Vol] 5.8 10*3/uL Normal 3.5-11.3 [facility] Comment on above: Performed By: #### T ROPI #### [address] [address] Water Chaser: Ramsey Rodriguez MD FL MODIFIED BARIUM SWALLOW W VIDEOon 08-28-2023 FL MODIFIED BARIUM SWALLOW W VIDEO EXAMINATION: MODIFIED BARIUM SWALLOW WAS PERFORMED IN CONJUNCTION WITH [employer] TECHNIQUE: Under fluoroscopic evaluation cineradiography/videor adiography recordings were performed in conjunction with the speech-language pathologist (TABLE GAMES SHIFT MANAGER). Various liquid, solid and/or semi-solid barium preparations were used to assess swallowing function. FLUOROSCOPY DOSE AND TYPE: Radiation Exposure Index: DAP [id number], COMPARISON: None HISTORY: ORDERING SYSTEM PROVIDED HISTORY: dysphagia TECHNOLOGIST PROVIDED HISTORY: dysphagia FINDINGS: Thin liquid: Given by teaspoon no laryngeal penetration or aspiration. Given by straw there is trace laryngeal penetration. No aspiration. [place] thick liquid: Given by teaspoon no laryngeal [...] Christiano Cohen MD 08/28/23 Final result Normal [facility] Glucose,Whole Bloodon 2023 Glucose [Mass/Vol] 86 mg/dL Normal 75-110 [facility] Glucose [Mass/Vol] 87 mg/dL Normal 75-110 [facility] Glucose [Mass/Vol] 105 mg/dL Normal 75-110 [facility] Heparin Anti-Xaon 08-28-2023 Heparin Anti-Xa 0.22 IU/L Normal [facility] Comment on above: Performed By: #### H EPXA, CBC, PTT, PT #### [employer] [facility] [address] [place] [address] Water Chaser: Ramsey Rodriguez MD Magnesiumon 08-28-2023 Magnesium [Mass/Vol] 2.4 mg/dL Normal 1.6-2.4 [facility] Comment on above: Performed By: #### H EPXA, CBC, PTT, PT #### [employer] [address] [place] [address] Water Chaser: Ramsey Rodriguez MD Magnesium [Mass/Vol] 1.7 mg/dL Normal 1.6-2.4 [facility] Comment on above: Performed By: #### T ROPI #### [facility] [address] [place] [address] Water Chaser: Ramsey Rodriguez MD PTon 08-28-2023 INR Coag (PPP) [Relative time] 1.0 {INR} Normal [facility] Comment on above: Result Comment: Therapeutic Range: Moderate Anticoagulant Intensity: INR = 2.0-3.0 High Anticoagulant Intensity: INR = 2.5-3.5 Performed By: #### H EPXA, CBC, PTT, PT #### [facility] [address] [place] [address] Water Chaser: Ramsey Rodriguez MD PT Coag (PPP) [Time] 13.5 s Normal 11.7-14.9 [facility] Comment on above: Performed By: #### H EPXA, CBC, PTT, PT #### [employer] [address] [place] [address] Water Chaser: Ramsey Rordiguez MD Phosphorus, Inorg.on Phosphorus, Inorg. 2.2 mg/dL Low 2.5-4.5 [facility] Comment on above: Performed By: #### H EPXA, CBC, PTT, PT #### [employer] [address] [place] [address] Water Chaser: Ramsey Rodriguez MD Phosphorus, Inorg. 2.4 mg/dL Low 2.5-4.5 [facility] Comment on above: Performed By: #### T ROPI #### [employer] [address] [place] [address] Water Chaser: Ramsey Rodriguez MD Troponinon 08-28-2023 Troponin, High Sens 142 ng/L Critically high 0-22 [facility] Comment on above: Result Comment: High Sensitivity Troponin values cannot be compared with other Troponin methodologies. Previous Alert Value Reported Performed By: #### H EPXA, CBC, PTT, PT #### [employer] [address] [place], [place] [id number] Water Chaser: Ramsey Rodriguez MD Troponin, High Sens 138 ng/L Critically high 0-22 [facility] Comment on above: Result Comment: High Sensitivity Troponin values cannot be compared with other Troponin methodologies. Performed By: #### B MP, TROPI #### [facility] [place], [place] [id number] Water Chaser: Ramsey Rodriguez MD XR CHEST PORTABLEon 08-28-19 [...] Rafat Dumont MD 08/28/23 Final result Normal [facility] Basic Metabolic Profon 08-26 Anion gap [Moles/Vol] 7 mmol/L Low 9-16 [facility] Comment on above: Performed By: #### H EPXA, CBC, PTT, PT #### [employer] [address] [place] [address] Water Chaser: Ramsey Rodriguez MD Calcium [Mass/Vol] 8.0 mg/dL Low 8.6-10.4 [facility] Comment on above: Performed By: #### H EPXA, CBC, PTT, PT #### [employer] [address] [place], [place] [id number] Water Chaser: Ramsey Rodriguez MD Chloride [Moles/Vol] 107 mmol/L Normal 98-107 [facility] Comment on above: Performed By: #### H EPXA, CBC, PTT, PT #### [facility] [address] [place] [address] 314[address] Water Chaser: Ramsey Rodriguez MD CO2 [Moles/Vol] 26 mmol/L Normal 20-31 [facility] Comment on above: Performed By: #### H EPXA, CBC, PTT, PT #### [facility] [address] [place] [address] Water Chaser: Ramsey Rodriguez MD Creatinine [Mass/Vol] 0.6 mg/dL Low 0.70-1.20 [facility] Comment on above: Performed By: #### H EPXA, CBC, PTT, PT #### [facility] [address] [place] [address] Water Chaser: Ramsey Rodriguez MD GFR/1.73 sq M.predicted among non-blacks MDRD (S/P/Bld) [Vol rate/Area] mL/min/{1.73_m2} Normal >60 [facility] Comment on above: Result Comment: These [...] EPXA, CBC, PTT, PT #### [facility] [address] [place] [address]9921 Water Chaser: Ramsey Rodriguez MD Glucose [Mass/Vol] 104 mg/dL High 74-99 [facility] Comment on above: Performed By: #### H EPXA, CBC, PTT, PT #### [facility] [address] [place] [address]656 Water Chaser: Ramsey Rodriguez MD Potassium [Moles/Vol] 3.6 mmol/L Low 3.7-5.3 [facility] Comment on above: Performed By: #### H EPXA, CBC, PTT, PT #### [facility] [address] [place] [address] 31596 Water Chaser: Ramsey Rodriguez MD Sodium [Moles/Vol] 140 mmol/L Normal 136-145 [facility] Comment on above: Performed By: #### H EPXA, CBC, PTT, PT #### [address] [address] Water Chaser: Ramsey Rodriguez MD Urea nitrogen [Mass/Vol] 14 mg/dL Normal 8-23 [facility] Comment on above: Performed By: #### H EPXA, CBC, PTT, PT #### [facility] [address] [place] [address] 19447 Water Chaser: Ramsey Rodriguez MD CBC with Diffon 08-27-2023 Abs. Basophil <0.03 Normal 0.00-0.20 [facility] Comment on above: Performed By: #### H EPXA, CBC, PTT, PT #### [facility] [address] [place] [address] Water Chaser: Ramsey Rodriguez MD Abs.Imm.Granulocyte <0.03 Normal 0.00-0.30 [facility] Comment on above: Performed By: #### H EPXA, CBC, PTT, PT #### [facility] [place] [address] Water Chaser: Ramsey Rodriguez MD Abs.Neutrophil (Seg) 3.93 k/uL Normal 1.50-8.10 [facility] Comment on above: Performed By: #### H EPXA, CBC, PTT, PT #### [facility] [address] [place] [address] 07546 Water Chaser: Ramsey Rodriguez MD Basophils/100 WBC (Bld) 0 % Normal 0-2 [facility] Comment on above: Performed By: #### H EPXA, CBC, PTT, PT #### [facility] [address] [place] [address] 09378 Water Chaser: Ramsey Rodriguez MD Eosinophils (Bld) [#/Vol] 0.25 10*3/uL Normal 0.00-0.44 [facility] Comment on above: Performed By: #### H EPXA, CBC, PTT, PT #### [facility] [address] [place] [address] 15286 Water Chaser: Ramsey Rodriguez MD Eosinophils/100 WBC (Bld) 5 % High 1-4 [facility] Comment on above: Performed By: #### H EPXA, CBC, PTT, PT #### [facility] [address] [place] [address] 13692 Water Chaser: Ramsey Rodriguez MD Erythrocyte distribution width (RBC) [Ratio] 15.8 % High 11.8-14.4 [facility] Comment on above: Performed By: #### H EPXA, CBC, PTT, PT #### [facility] [address] [place] [address] 10509 Water Chaser: Ramsey Rodriguez MD Hematocrit (Bld) [Volume fraction] 33.2 % Low 40.7-50.3 [facility] Comment on above: Performed By: #### H EPXA, CBC, PTT, PT #### [facility] [address] [place] [address] 10824 Water Chaser: Ramsey Rodriguez MD Hemoglobin (Bld) [Mass/Vol] 10.3 g/dL Low 13.0-17.0 [facility] Comment on above: Performed By: #### H EPXA, CBC, PTT, PT #### [facility] [address] [place] [address] 75448 Water Chaser: Ramsey Rordiguez MD Immature granulocytes/100 WBC (Bld) 0 % Normal 0 [facility] Comment on above: Performed By: #### H EPXA, CBC, PTT, PT #### [address] [address] Water Chaser: Ramsey Rodriguez MD Lymphocytes (Bld) [#/Vol] 1.01 10*3/uL Low 1.10-3.70 [facility] Comment on above: Performed By: #### H EPXA, CBC, PTT, PT #### [place] [address] Water Chaser: Ramsey Rodriguez MD Lymphocytes/100 WBC (Bld) 18 % Low 24-43 [facility] Comment on above: Performed By: #### H EPXA, CBC, PTT, PT #### [facility] [place] [address] Water Chaser: Ramsey Rodriguez MD MCH (RBC) [Entitic mass] 30.6 pg Normal 25.2-33.5 [facility] Comment on above: Performed By: #### H EPXA, CBC, PTT, PT #### [facility] [place] [address] Water Chaser: Ramsey Rodriguez MD MCHC (RBC) [Mass/Vol] 31.0 g/dL Normal 28.4-34.8 [facility] Comment on above: Performed By: #### H EPXA, CBC, PTT, PT #### [facility] [place] [address] Water Chaser: Ramsey Rodriguez MD MCV (RBC) [Entitic vol] 98.5 fL Normal 82.6-102.9 [facility] Comment on above: Performed By: #### H EPXA, CBC, PTT, PT #### [facility] [address] [place] [address] 39560 Water Chaser: Ramsey Rodriguez MD Monocytes (Bld) [#/Vol] 0.33 10*3/uL Normal 0.10-1.20 [facility] Comment on above: Performed By: #### H EPXA, CBC, PTT, PT #### [address] [address] Water Chaser: Ramsey Rodriguez MD Monocytes/100 WBC (Bld) 6 % Normal 3-12 [facility] Comment on above: Performed By: #### H EPXA, CBC, PTT, PT #### [address] [address] Water Chaser: Ramsey Rodriguez MD Neutrophil (Seg) 71 % High 36-65 [facility] Comment on above: Performed By: #### H EPXA, CBC, PTT, PT #### [address] [address] Water Chaser: Ramsey Rodriguez MD NRBC Automated 0.0 per 100 WBC Normal 0.0 [facility] Comment on above: Performed By: #### H EPXA, CBC, PTT, PT #### [address] [address] Water Chaser: Ramsey Rodriguez MD Platelet mean volume (Bld) [Entitic vol] 10.2 fL Normal 8.1-13.5 [facility] Comment on above: Performed By: #### H EPXA, CBC, PTT, PT #### [address] [address] Water Chaser: Ramsey Rodriguez MD Platelets (Bld) [#/Vol] 136 10*3/uL Low 138-453 [facility] Comment on above: Performed By: #### H EPXA, CBC, PTT, PT #### [address] [id number] Water Chaser: Ramsey Rodriguez MD RBC (Bld) [#/Vol] 3.37 10*6/uL Low 4.21-5.77 [facility] Comment on above: Performed By: #### H EPXA, CBC, PTT, PT #### [facility] [address] [place] [address] 11879 Water Chaser: Ramsey Rodriguez MD RBC morphology finding Nom (Bld) ANISOCYTOSIS PRESENT Normal [facility] Comment on above: Performed By: #### H EPXA, CBC, PTT, PT #### [facility] [address] [place] [address] 68984 Water Chaser: Ramsey Rodriguez MD WBC (Bld) [#/Vol] 5.6 10*3/uL Normal 3.5-11.3 [facility] Comment on above: Performed By: #### H EPXA, CBC, PTT, PT #### [facility] [place] [address] 82123 Water Chaser: Ramsey Rodriguez MD Glucose,Whole Bloodon 2023 Glucose [Mass/Vol] 103 mg/dL Normal 75-110 [facility] Glucose [Mass/Vol] 99 mg/dL Normal 75-110 [facility] Glucose [Mass/Vol] 95 mg/dL Normal 75-110 [facility] Magnesiumon 08-27-2023 Magnesium [Mass/Vol] 2.0 mg/dL Normal 1.6-2.4 [facility] Comment on above: Performed By: #### H EPXA, CBC, PTT, PT #### [facility] [address] [place] [address] 72351 Water Chaser: Ramsey Rodriguez MD Phosphorus, Inorg.on 024 Phosphorus, Inorg. 2.4 mg/dL Low 2.5-4.5 [facility] Comment on above: Performed By: #### H EPXA, CBC, PTT, PT #### [address] [address] Water Chaser: Ramsey Rodriguez MD Urinalysis, Routineon 2023 Bilirubin, SemiQt,Ur Negative Normal NEG [facility] Comment on above: Performed By: #### B MP, CDP, HEPXA #### [address] [address] Water Chaser: Ramsey Rodriguez MD Blood, Urine Negative Normal NEG [facility] Comment on above: Performed By: #### B MP, CDP, HEPXA #### [facility] [place] [address]386 Water Chaser: Ramsey Rodriguez MD Clarity (U) Clear Normal CLEAR [facility] Comment on above: Performed By: #### B MP, CDP, HEPXA #### [facility] [place] [address] 61573 Water Chaser: Ramsey Rodriguez MD Color (U) Yellow Normal YEL [facility] Comment on above: Performed By: #### B MP, CDP, HEPXA #### [facility] [place] [address] 59214 Water Chaser: Ramsey Rodriguez MD Comment Microscopic exam not performed based on chemical results unless requested in Normal [facility] Comment on above: Result Comment: orig inal order. Performed By: #### B MP, CDP, HEPXA #### [facility] [address] [place] [address] 72289 Water Chaser: Ramsey Rodriguez MD Glucose Ql (U) Negative Normal NEG [facility] Comment on above: Performed By: #### B MP, CDP, HEPXA #### [facility] [address] [place] [address] 21219 Water Chaser: Ramsey Rodriguez MD Ketones Ql (U) Negative Normal NEG [facility] Comment on above: Performed By: #### B MP, CDP, HEPXA #### [facility] [address] [place] [address] 66062 Water Chaser: Ramsey Rodriguez MD Leukocyte esterase Test strip Ql (U) Negative Normal NEG [facility] Comment on above: Performed By: #### B MP, CDP, HEPXA #### [facility] [address] [place] [address]304 Water Chaser: Ramsey Rodriguez MD Nitrite,Ur Negative Normal NEG [facility] Comment on above: Performed By: #### B MP, CDP, HEPXA #### [address] [address] Water Chaser: Ramsey Rodriguez MD PH,Ur 5.5 Normal 5.0-8.0 [facility] Comment on above: Performed By: #### B MP, CDP, HEPXA #### [facility] [address] [place] [address] 62762 Water Chaser: Ramsey Rodriguez MD Protein Ql (U) Negative Normal NEG [facility] Comment on above: Performed By: #### B MP, CDP, HEPXA #### [facility] [address] [place] [address] 66736 Water Chaser: Ramsey Rodriguez MD Spec. [place],Ur 1.008 Normal 1.005-1.030 [facility] Comment on above: Performed By: #### B MP, CDP, HEPXA #### [facility] [address] [place] [address] 48036 Water Chaser: Ramsey Rodriguez MD Urobilinogen,Ur Normal Normal 0.0-1.0 [facility] Comment on above: Performed By: #### B MP, CDP, HEPXA #### [facility] [address] [place] [address]758 Water Chaser: Ramsey Rodriguez MD XR CHEST PORTABLEon 08-27-19 [...] Alex Martinez MD 08/27/23 Final result Normal [facility] Arterial Bld Gas,POCon 08-25 Eliazar Test Positive Normal [facility] FIO2 60.0 Normal [facility] HCO3 (Bld) [Moles/Vol] 26.6 mmol/L Normal 21.0-28.0 [facility] O2 Device BIPAP Normal [facility] Oxygen saturation in Blood 99.1 % High 94.0-98.0 [facility] pCO2, Arterial 40.5 mm Hg Normal 35.0-48.0 [facility] pH, Arterial 7.426 Normal 7.350-7.450 [facility] pO2, Arterial 135.5 mm Hg High 83.0-108.0 [facility] Positive Base Excess (calc) 2.1 mmol/L Normal 0.0-3.0 [facility] Site Drawn Right Radial Artery Normal [facility] Basic Metabolic Profon 08-25 Anion gap [Moles/Vol] 5 mmol/L Low 9-16 [facility] Comment on above: Performed By: #### B KAITLYNN LEON #### [employer] [address] [place] [address] Water Chaser: Ramsey Rodriguez MD Calcium [Mass/Vol] 8.2 mg/dL Low 8.6-10.4 [facility] Comment on above: Performed By: #### B KAITLYNN LEON #### [facility] [address] [place] [address] Water Chaser: Ramsey Rodriguez MD Chloride [Moles/Vol] 107 mmol/L Normal 98-107 [facility] Comment on above: Performed By: #### B MP, TROPI #### [facility] [address] [place] [address] Water Chaser: Ramsey Rodriguez MD CO2 [Moles/Vol] 26 mmol/L Normal 20-31 [facility] Comment on above: Performed By: #### B EDWARD, TROPI #### [facility] [place] [address]44 Water Chaser: Ramsey Rodriguez MD Creatinine [Mass/Vol] 0.6 mg/dL Low 0.70-1.20 [facility] Comment on above: Performed By: #### B EDWARD, TROPI #### [facility] [place] [address] Water Chaser: Ramsey Rodriguez MD GFR/1.73 sq M.predicted among non-blacks MDRD (S/P/Bld) [Vol rate/Area] mL/min/{1.73_m2} Normal >60 [facility] Comment on above: Result Comment: These [...] #### B EDWARD, TROPI #### [facility] [address] [place] [address] Water Chaser: Ramsey Rodriguez MD Glucose [Mass/Vol] 92 mg/dL Normal 74-99 [facility] Comment on above: Performed By: #### B EDWARD, TROPI #### [place] [address] [place] [address] Water Chaser: Ramsey Rodriguez MD Potassium [Moles/Vol] 4.2 mmol/L Normal 3.7-5.3 [facility] Comment on above: Performed By: #### B MP, TROPI #### [address] [address] Water Chaser: Ramsey Rodriguez MD Sodium [Moles/Vol] 138 mmol/L Normal 136-145 [facility] Comment on above: Performed By: #### B EDWARD, TROPI #### [address] [address] Water Chaser: Ramsey Rodriguez MD Urea nitrogen [Mass/Vol] 18 mg/dL Normal 8-23 [facility] Comment on above: Performed By: #### B EDWARD, TROPI #### [address] [address] Water Chaser: Ramsey Rodriguez MD CBC with Diffon 08-26-2023 Abs. Basophil <0.03 Normal 0.00-0.20 [facility] Comment on above: Performed By: #### B EDWARD, TROPI #### [address] [address] Water Chaser: Ramsey Rodriguez MD Abs.Imm.Granulocyte <0.03 Normal 0.00-0.30 [facility] Comment on above: Performed By: #### B EDWARD, TROPI #### [address] [address] Water Chaser: Ramsey Rodriguez MD Abs.Neutrophil (Seg) 4.44 k/uL Normal 1.50-8.10 [facility] Comment on above: Performed By: #### B MP, TROPI #### [facility] [address] [place] [address] Water Chaser: Ramsey Rodriguez MD Basophils/100 WBC (Bld) 0 % Normal 0-2 [facility] Comment on above: Performed By: #### B EDWARD TROPI #### [address] [address] Water Chaser: Ramsey Rodriguez MD Eosinophils (Bld) [#/Vol] 0.17 10*3/uL Normal 0.00-0.44 [facility] Comment on above: Performed By: #### B EDWARD, TROPI #### [facility] [address] [place] [address] Water Chaser: Ramsey Rodriguez MD Eosinophils/100 WBC (Bld) 3 % Normal 1-4 [facility] Comment on above: Performed By: #### B EDWARD TROPI #### [address] [address] Water Chaser: Ramsey Rodriguez MD Erythrocyte distribution width (RBC) [Ratio] 15.7 % High 11.8-14.4 [facility] Comment on above: Performed By: #### B EDWARD TROPI #### [facility] [address] [place] [address] Water Chaser: Ramsey Rodriguez MD Hematocrit (Bld) [Volume fraction] 34.0 % Low 40.7-50.3 [facility] Comment on above: Performed By: #### B EDWARD TROPI #### [facility] [address] [place] [address] Water Chaser: Ramsey Rodriguez MD Hemoglobin (Bld) [Mass/Vol] 10.8 g/dL Low 13.0-17.0 [facility] Comment on above: Performed By: #### B EDWARD, TROPI #### [facility] [address] [place] [address] Water Chaser: Ramsey Rodriguez MD Immature granulocytes/100 WBC (Bld) 0 % Normal 0 [facility] Comment on above: Performed By: #### B MP, TROPI #### [address] [address] Water Chaser: Ramsey Rodriguez MD Lymphocytes (Bld) [#/Vol] 1.18 10*3/uL Normal 1.10-3.70 [facility] Comment on above: Performed By: #### B MP, TROPI #### [place] [address] Water Chaser: Ramsey Rodriguez MD Lymphocytes/100 WBC (Bld) 19 % Low 24-43 [facility] Comment on above: Performed By: #### B EDWARD, TROPI #### [facility] [place] [address] Water Chaser: Ramsey Rodriguez MD MCH (RBC) [Entitic mass] 30.7 pg Normal 25.2-33.5 [facility] Comment on above: Performed By: #### B EDWARD, TROPI #### [place] [address] Water Chaser: Ramsey Rodriguez MD MCHC (RBC) [Mass/Vol] 31.8 g/dL Normal 28.4-34.8 [facility] Comment on above: Performed By: #### B EDWARD, TROPI #### [place] [address] Water Chaser: Ramsey Rodriguez MD MCV (RBC) [Entitic vol] 96.6 fL Normal 82.6-102.9 [facility] Comment on above: Performed By: #### B MP, TROPI #### [place] [address] Water Chaser: Ramsey Rodriguez MD Monocytes (Bld) [#/Vol] 0.41 10*3/uL Normal 0.10-1.20 [facility] Comment on above: Performed By: #### B MP, TROPI #### [facility] [address] [place] [address] Water Chaser: Ramsey Rodriguez MD Monocytes/100 WBC (Bld) 7 % Normal 3-12 [facility] Comment on above: Performed By: #### B MP, TROPI #### [address] [address] Water Chaser: Ramsey Rodriguez MD Neutrophil (Seg) 71 % High 36-65 [facility] Comment on above: Performed By: #### B MP, TROPI #### [address] [address] Water Chaser: Ramsey Rodriguez MD NRBC Automated 0.0 per 100 WBC Normal 0.0 [facility] Comment on above: Performed By: #### B MP, TROPI #### [address] [address] Water Chaser: Ramsey Rodriguez MD Platelet mean volume (Bld) [Entitic vol] 9.9 fL Normal 8.1-13.5 [facility] Comment on above: Performed By: #### B MP, TROPI #### [address] [address] Water Chaser: Ramsey Rodriguez MD Platelets (Bld) [#/Vol] 143 10*3/uL Normal 138-453 [facility] Comment on above: Performed By: #### B MP, TROPI #### [address] [address] Water Chaser: Ramsey Rodriguez MD RBC (Bld) [#/Vol] 3.52 10*6/uL Low 4.21-5.77 [facility] Comment on above: Performed By: #### B MP, TROPI #### [facility] [address] [place] [address] Water Chaser: Ramsey Rodriguez MD RBC morphology finding Nom (Bld) ANISOCYTOSIS PRESENT Normal [facility] Comment on above: Performed By: #### B KAITLYNN LEON #### [address] [address] Water Chaser: Ramsey Rodriguez MD WBC (Bld) [#/Vol] 6.2 10*3/uL Normal 3.5-11.3 [facility] Comment on above: Performed By: #### B KAITLYNN LEON #### [address] [address] Water Chaser: Ramsey Rodriguez MD Gl Hemostasis TEG w/Lysison 08-26-2023 Fibrinogen, Func TEG 5.4 mm Low 15.0-32.0 [facility] Comment on above: Performed By: #### H EPXA, CBC, PTT, PT #### [address] [address] Water Chaser: Ramsey Rodriguez MD LY30 (Lysis) TEG 0.0 % Normal 0.0-2.6 [facility] Comment on above: Performed By: #### H EPXA, CBC, PTT, PT #### [address] [address] Water Chaser: Ramsey Rodriguez MD MA Rapid TEG <40.0 Low 52.0-70 [facility] Comment on above: Performed By: #### H EPXA, CBC, PTT, PT #### [address] [address] Water Chaser: Ramsey Rodriguez MD R(Reaction Time) TEG >17.0 High 4.6-9.1 [facility] Comment on above: Performed By: #### H EPXA, CBC, PTT, PT #### [address] [address] Water Chaser: Ramsey Rodriguez MD Glucose,Whole Bloodon 2023 Glucose [Mass/Vol] 99 mg/dL Normal 75-110 [facility] Glucose [Mass/Vol] 86 mg/dL Normal 75-110 [facility] Glucose [Mass/Vol] 101 mg/dL Normal 75-110 [facility] Glucose [Mass/Vol] 86 mg/dL Normal 75-110 [facility] Magnesiumon 08-26-2023 Magnesium [Mass/Vol] 1.7 mg/dL Normal 1.6-2.4 [facility] Comment on above: Performed By: #### T ROPI #### [facility] [address] [place] [address] [id number] Water Chaser: Ramsey Rodriguez MD PTon 08-26-2023 INR Coag (PPP) [Relative time] 1.1 {INR} Normal [facility] Comment on above: Result Comment: Therapeutic Range: Moderate Anticoagulant Intensity: INR = 2.0-3.0 High Anticoagulant Intensity: INR = 2.5-3.5 Performed By: #### B TASIA LEONI #### [facility] [address] [place] [address] [phone] Water Chaser: Ramsey Rodriguez MD PT Coag (PPP) [Time] 13.7 s Normal 11.7-14.9 [facility] Comment on above: Performed By: #### B EDWARD TROPI #### [facility] [address] [place] [address] [phone] Water Chaser: Ramsey Rodriguez MD XR CHEST PORTABLEon 08-26-19 [...] Jordy Michel MD 08/26/23 Final result Normal [facility] Basic Metab w/rfx MGon 08-24 Anion gap [Moles/Vol] 7 mmol/L Low 9-16 [facility] Comment on above: Performed By: #### T ROPI #### [address] [address] Water Chaser: Ramsey Rodriguez MD Calcium [Mass/Vol] 7.8 mg/dL Low 8.6-10.4 [facility] Comment on above: Performed By: #### T ROPI #### [address] [address] Water Chaser: Ramsey Rodriguez MD Chloride [Moles/Vol] 109 mmol/L High 98-107 [facility] Comment on above: Performed By: #### T ROPI #### [address] [address] Water Chaser: Ramsey Rodriguez MD CO2 [Moles/Vol] 21 mmol/L Normal 20-31 [facility] Comment on above: Performed By: #### T ROPI #### [address] [address] Water Chaser: Ramsey Rodriguze MD Creatinine [Mass/Vol] 0.5 mg/dL Low 0.70-1.20 [facility] Comment on above: Performed By: #### T ROPI #### [address] [address] Water Chaser: Ramsey Rodriguez MD GFR/1.73 sq M.predicted among non-blacks MDRD (S/P/Bld) [Vol rate/Area] mL/min/{1.73_m2} Normal >60 [facility] Comment on above: Result Comment: These [...] secretion. Performed By: #### T ROPI #### [facility] [address] [place] [address] Water Chaser: Ramsey Rodriguez MD Glucose [Mass/Vol] 79 mg/dL Normal 74-99 [facility] Comment on above: Performed By: #### T ROPI #### [facility] [address] [place] [address] Water Chaser: Ramsey Rodriguez MD Potassium [Moles/Vol] 4.5 mmol/L Normal 3.7-5.3 [facility] Comment on above: Performed By: #### T ROPI #### [facility] [address] [place] [address] Water Chaser: Ramsey Rodriguez MD Sodium [Moles/Vol] 137 mmol/L Normal 136-145 [facility] Comment on above: Performed By: #### T ROPI #### [facility] [address] [place] [address] Water Chaser: Ramsey Rodriguez MD Urea nitrogen [Mass/Vol] 13 mg/dL Normal 8-23 [facility] Comment on above: Performed By: #### T ROPI #### [facility] [address] [place] [address] Water Chaser: Ramsey Rodriguez MD CBC with Diffon 08-25-2023 Abs. Basophil <0.03 Normal 0.00-0.20 [facility] Comment on above: Performed By: #### T ROPI #### [facility] [address] [place] [address] Water Chaser: Ramsey Rodriguez MD Abs.Imm.Granulocyte <0.03 Normal 0.00-0.30 [facility] Comment on above: Performed By: #### T ROPI #### [address] [address] Water Chaser: Ramsey Rodriguez MD Abs.Neutrophil (Seg) 2.56 k/uL Normal 1.50-8.10 [facility] Comment on above: Performed By: #### T ROPI #### [address] [address] Water Chaser: Ramsey Rodriguez MD Basophils/100 WBC (Bld) 1 % Normal 0-2 [facility] Comment on above: Performed By: #### T ROPI #### [place] [address] Water Chaser: Ramsey Rodriguez MD Eosinophils (Bld) [#/Vol] 0.18 10*3/uL Normal 0.00-0.44 [facility] Comment on above: Performed By: #### T ROPI #### [address] [address] Water Chaser: Ramsey Rodriguez MD Eosinophils/100 WBC (Bld) 4 % Normal 1-4 [facility] Comment on above: Performed By: #### T ROPI #### [place] [address] Water Chaser: Ramsey Rodriguez MD Erythrocyte distribution width (RBC) [Ratio] 15.8 % High 11.8-14.4 [facility] Comment on above: Performed By: #### T ROPI #### [address] [address] Water Chaser: Ramsey Rodriguez MD Hematocrit (Bld) [Volume fraction] 33.3 % Low 40.7-50.3 [facility] Comment on above: Performed By: #### T ROPI #### [address] [address] Water Chaser: Ramsey Rodriguez MD Hemoglobin (Bld) [Mass/Vol] 10.4 g/dL Low 13.0-17.0 [facility] Comment on above: Performed By: #### T ROPI #### [address] [address] Water Chaser: Ramsey Rodriguez MD Immature granulocytes/100 WBC (Bld) 0 % Normal 0 [facility] Comment on above: Performed By: #### T ROPI #### [address] [address] Water Chaser: Ramsey Rodriguez MD Lymphocytes (Bld) [#/Vol] 1.22 10*3/uL Normal 1.10-3.70 [facility] Comment on above: Performed By: #### T ROPI #### [address] [address] Water Chaser: Ramsey Rodriguez MD Lymphocytes/100 WBC (Bld) 28 % Normal 24-43 [facility] Comment on above: Performed By: #### T ROPI #### [address] [address] Water Chaser: Ramsey Rodriguez MD MCH (RBC) [Entitic mass] 31.0 pg Normal 25.2-33.5 [facility] Comment on above: Performed By: #### T ROPI #### [address] [address] Water Chaser: Ramsey Rodriguez MD MCHC (RBC) [Mass/Vol] 31.2 g/dL Normal 28.4-34.8 [facility] Comment on above: Performed By: #### T ROPI #### [address] [place] [address] Water Chaser: Ramsey Rodriguez MD MCV (RBC) [Entitic vol] 99.4 fL Normal 82.6-102.9 [facility] Comment on above: Performed By: #### T ROPI #### [address] [address] Water Chaser: Ramsey Rodriguez MD Monocytes (Bld) [#/Vol] 0.32 10*3/uL Normal 0.10-1.20 [facility] Comment on above: Performed By: #### T ROPI #### [address] [address] Water Chaser: Ramsey Rodriguez MD Monocytes/100 WBC (Bld) 7 % Normal 3-12 [facility] Comment on above: Performed By: #### T ROPI #### [address] [address] Water Chaser: Ramsey Rodriguez MD Neutrophil (Seg) 60 % Normal 36-65 [facility] Comment on above: Performed By: #### T ROPI #### [address] [address] Water Chaser: Ramsey Rordiguez MD NRBC Automated 0.0 per 100 WBC Normal 0.0 [facility] Comment on above: Performed By: #### T ROPI #### [address] [address] Water Chaser: Ramsey Rodriguez MD Platelet mean volume (Bld) [Entitic vol] 10.0 fL Normal 8.1-13.5 [facility] Comment on above: Performed By: #### T ROPI #### [address] [address] Water Chaser: Ramsey Rodriguez MD Platelets (Bld) [#/Vol] 143 10*3/uL Normal 138-453 [facility] Comment on above: Performed By: #### T ROPI #### [facility] [address] [place] [address] Water Chaser: Ramsey Rodriguez MD RBC (Bld) [#/Vol] 3.35 10*6/uL Low 4.21-5.77 [facility] Comment on above: Performed By: #### T ROPI #### [id number] [place] [address] Water Chaser: Ramsey Rodriguez MD RBC morphology finding Nom (Bld) ANISOCYTOSIS PRESENT Normal [facility] Comment on above: Performed By: #### T ROPI #### [id number] [place] [address] Water Chaser: Ramsey Rodriguez MD WBC (Bld) [#/Vol] 4.3 10*3/uL Normal 3.5-11.3 [facility] Comment on above: Performed By: #### T ROPI #### [address] [address] Water Chaser: Ramsey Rodriguez MD Glucose,Whole Bloodon 2023 Glucose [Mass/Vol] 88 mg/dL Normal 75-110 [facility] Glucose [Mass/Vol] 102 mg/dL Normal 75-110 [facility] Glucose [Mass/Vol] 104 mg/dL Normal 75-110 [facility] Glucose [Mass/Vol] 80 mg/dL Normal 75-110 [facility] XR ABDOMEN (KUB) (SINGLE AP VIEW)on [...] Gerardo Stafford MD 08/25/23 Final result Normal [facility] Basic Metab w/rfx MGon 08-23 Anion gap [Moles/Vol] 6 mmol/L Low 9-16 [facility] Comment on above: Performed By: #### B FABIANO LEON, HEPXA #### [facility] [address] [place] [address] Water Chaser: Ramsey Rodriguez MD Chloride [Moles/Vol] 108 mmol/L High 98-107 [facility] Comment on above: Performed By: #### B EDWARD CDP, HEPXA #### [facility] [address] [place] [address] Water Chaser: Ramsey Rodriguez MD Potassium [Moles/Vol] 4.2 mmol/L Normal 3.7-5.3 [facility] Comment on above: Performed By: #### B EDWARD CDP, HEPXA #### [facility] [address] [place] [address] Water Chaser: Ramsey Rodriguez MD Sodium [Moles/Vol] 139 mmol/L Normal 136-145 [facility] Comment on above: Performed By: #### B EDWARD CDP, HEPXA #### [employer] [address] [place] [address] Water Chaser: Ramsey Rodriguez MD Calcium [Mass/Vol] 8.1 mg/dL Low 8.6-10.4 [facility] Comment on above: Performed By: #### B EDWARD CDP, HEPXA #### [employer] [address] [place] [address] Water Chaser: aRmsey Rodriguez MD CO2 [Moles/Vol] 25 mmol/L Normal 20-31 [facility] Comment on above: Performed By: #### B EDWARD CDP, HEPXA #### [facility] [place] [address] Water Chaser: Ramsey Rodriguez MD Creatinine [Mass/Vol] 0.5 mg/dL Low 0.70-1.20 [facility] Comment on above: Performed By: #### B FABIANO LEON, HEPXA #### [facility] [place] [address] Water Chaser: Ramsey Rodriguez MD GFR/1.73 sq M.predicted among non-blacks MDRD (S/P/Bld) [Vol rate/Area] mL/min/{1.73_m2} Normal >60 [facility] Comment on above: Result Comment: These [...] B FABIANO LEON, HEPXA #### [facility] [address] [place] [address] Water Chaser: Ramsey Rodriguez MD Glucose [Mass/Vol] 105 mg/dL High 74-99 [facility] Comment on above: Performed By: #### B EDWARD CDP, HEPXA #### [facility] [place] [address] Water Chaser: Ramsey Rodriguez MD Urea nitrogen [Mass/Vol] 12 mg/dL Normal 8-23 [facility] Comment on above: Performed By: #### B EDWARD CDP, HEPXA #### [address] [address] Water Chaser: Ramsey Rodriguez MD CBC with Diffon 08-24-2023 Abs. Basophil <0.03 Normal 0.00-0.20 [facility] Comment on above: Performed By: #### B MP, CDP, HEPXA #### [address] [address] Water Chaser: Ramsey Rodriguez MD Abs.Imm.Granulocyte <0.03 Normal 0.00-0.30 [facility] Comment on above: Performed By: #### B MP, CDP, HEPXA #### [place] [address] Water Chaser: Ramsey Rodriguez MD Abs.Neutrophil (Seg) 3.28 k/uL Normal 1.50-8.10 [facility] Comment on above: Performed By: #### B MP, CDP, HEPXA #### [address] [address] Water Chaser: Ramsey Rodriguez MD Basophils/100 WBC (Bld) 0 % Normal 0-2 [facility] Comment on above: Performed By: #### B MP, CDP, HEPXA #### [address] [address] Water Chaser: Ramsey Rodriguez MD Eosinophils (Bld) [#/Vol] 0.29 10*3/uL Normal 0.00-0.44 [facility] Comment on above: Performed By: #### B MP, CDP, HEPXA #### [address] [address] Water Chaser: Ramsey Rodriguez MD Eosinophils/100 WBC (Bld) 6 % High 1-4 [facility] Comment on above: Performed By: #### B MP, CDP, HEPXA #### [address] [address] Water Chaser: Ramsey Rodriguez MD Erythrocyte distribution width (RBC) [Ratio] 15.7 % High 11.8-14.4 [facility] Comment on above: Performed By: #### B MP, CDP, HEPXA #### [address] [address] Water Chaser: Ramsey Rodriguez MD Hematocrit (Bld) [Volume fraction] 33.4 % Low 40.7-50.3 [facility] Comment on above: Performed By: #### B MP, CDP, HEPXA #### [address] [address] Water Chaser: Ramsey Rodriguez MD Hemoglobin (Bld) [Mass/Vol] 10.5 g/dL Low 13.0-17.0 [facility] Comment on above: Performed By: #### B MP, CDP, HEPXA #### [facility] [address] [place] [address] Water Chaser: Ramsey Rodriguez MD Immature granulocytes/100 WBC (Bld) 0 % Normal 0 [facility] Comment on above: Performed By: #### B MP, CDP, HEPXA #### [facility] [address] [place] [address] Water Chaser: Ramsey Rodriguez MD Lymphocytes (Bld) [#/Vol] 0.89 10*3/uL Low 1.10-3.70 [facility] Comment on above: Performed By: #### B MP, CDP, HEPXA #### [address] [address] Water Chaser: Ramsey Rodriguez MD Lymphocytes/100 WBC (Bld) 19 % Low 24-43 [facility] Comment on above: Performed By: #### B MP, CDP, HEPXA #### [facility] [address] [place] [address] Water Chaser: Ramsey Rodriguez MD MCH (RBC) [Entitic mass] 30.9 pg Normal 25.2-33.5 [facility] Comment on above: Performed By: #### B MP, CDP, HEPXA #### [address] [address] Water Chaser: Ramsey Rodriguez MD MCHC (RBC) [Mass/Vol] 31.4 g/dL Normal 28.4-34.8 [facility] Comment on above: Performed By: #### B MP, CDP, HEPXA #### [address] [address] Water Chaser: Ramsey Rodriguez MD MCV (RBC) [Entitic vol] 98.2 fL Normal 82.6-102.9 [facility] Comment on above: Performed By: #### B MP, CDP, HEPXA #### [facility] [address] [place] [address] Water Chaser: Ramsey Rodriguez MD Monocytes (Bld) [#/Vol] 0.26 10*3/uL Normal 0.10-1.20 [facility] Comment on above: Performed By: #### B MP, CDP, HEPXA #### [address] [address] Water Chaser: Ramsey Rodriguez MD Monocytes/100 WBC (Bld) 6 % Normal 3-12 [facility] Comment on above: Performed By: #### B MP, CDP, HEPXA #### [facility] [address] [place] [address] Water Chaser: Ramsey Rodriguez MD Neutrophil (Seg) 69 % High 36-65 [facility] Comment on above: Performed By: #### B MP, CDP, HEPXA #### [facility] [address] [place] [address] Water Chaser: Ramsey Rodriguez MD NRBC Automated 0.0 per 100 WBC Normal 0.0 [facility] Comment on above: Performed By: #### B MP, CDP, HEPXA #### [address] [address] Water Chaser: Ramsey Rodriguez MD Platelet mean volume (Bld) [Entitic vol] 10.0 fL Normal 8.1-13.5 [facility] Comment on above: Performed By: #### B MP, CDP, HEPXA #### [address] [address] Water Chaser: Ramsey Rodriguez MD Platelets (Bld) [#/Vol] 141 10*3/uL Normal 138-453 [facility] Comment on above: Performed By: #### B MP, CDP, HEPXA #### [address] [address] Water Chaser: Ramsey Rodriguez MD RBC (Bld) [#/Vol] 3.40 10*6/uL Low 4.21-5.77 [facility] Comment on above: Performed By: #### B MP, CDP, HEPXA #### [address] [address] Water Chaser: Ramsey Rodriguez MD RBC morphology finding Nom (Bld) ANISOCYTOSIS PRESENT Normal [facility] Comment on above: Performed By: #### B MP, CDP, HEPXA #### [address] [address] Water Chaser: Ramsey Rodriguez MD WBC (Bld) [#/Vol] 4.8 10*3/uL Normal 3.5-11.3 [facility] Comment on above: Performed By: #### B MP, CDP, HEPXA #### [address] [address] Water Chaser: Ramsey Rodriguez MD Glucose,Whole Bloodon 05-04- 2024 Glucose [Mass/Vol] 92 mg/dL Normal 75-110 [facility] Glucose [Mass/Vol] 81 mg/dL Normal 75-110 [facility] Glucose [Mass/Vol] 99 mg/dL Normal 75-110 [facility] Glucose [Mass/Vol] 94 mg/dL Normal 75-110 [facility] XR CHEST PORTABLEon 08-24-19 XR CHEST [...] Alex Martinez MD 08/24/23 Final result Normal [facility] Basic Metab w/rfx MGon 08-22 Anion gap [Moles/Vol] 6 mmol/L Low 9-16 [facility] Comment on above: Performed By: #### B EDWARD, TROPI #### [employer] [address] [place], [place] 1887808 Water Chaser: Ramsey Rodriguez MD Calcium [Mass/Vol] 8.1 mg/dL Low 8.6-10.4 [facility] Comment on above: Performed By: #### B EDWARD, TROPI #### [employer] [address] [place], [place] [id number] Water Chaser: Ramsey Rodriguez MD Chloride [Moles/Vol] 107 mmol/L Normal 98-107 [facility] Comment on above: Performed By: #### B MP, TROPI #### [facility] [address] [place] [address] Water Chaser: Ramsey Rodriguez MD CO2 [Moles/Vol] 25 mmol/L Normal 20-31 [facility] Comment on above: Performed By: #### B EDWARD, TROPI #### [facility] [place] [address] Water Chaser: Ramsey Rodriguez MD Creatinine [Mass/Vol] 0.5 mg/dL Low 0.70-1.20 [facility] Comment on above: Performed By: #### B EDWARD, TROPI #### [facility] [address] [place] [address] Water Chaser: Ramsey Rodriguez MD GFR/1.73 sq M.predicted among non-blacks MDRD (S/P/Bld) [Vol rate/Area] mL/min/{1.73_m2} Normal >60 [facility] Comment on above: Result Comment: These [...] #### B EDWARD, TROPI #### [facility] [address] [place] [address] Water Chaser: Ramsey Rodriguez MD Glucose [Mass/Vol] 111 mg/dL High 74-99 [facility] Comment on above: Performed By: #### B EDWARD, TROPI #### [facility] [address] [place] [address] Water Chaser: Ramsey Rodriguez MD Potassium [Moles/Vol] 4.1 mmol/L Normal 3.7-5.3 [facility] Comment on above: Performed By: #### B EDWARD, TROPI #### [facility] [address] [place] [address] Water Chaser: Ramsey Rodriguez MD Sodium [Moles/Vol] 138 mmol/L Normal 136-145 [facility] Comment on above: Performed By: #### Nciol LEON TROPI #### [address] [address] Water Chaser: Ramsey Rodriguez MD Urea nitrogen [Mass/Vol] 17 mg/dL Normal 8-23 [facility] Comment on above: Performed By: #### Nicol LEON TROPI #### [place] [address] Water Chaser: Ramsey Rodriguez MD CBC with Diffon 08-23-2023 Abs. Basophil <0.03 Normal 0.00-0.20 [facility] Comment on above: Performed By: #### Nicol LEON TROPI #### [place] [address] Water Chaser: Ramsey Rodriguez MD Abs.Imm.Granulocyte <0.03 Normal 0.00-0.30 [facility] Comment on above: Performed By: #### Nicol LEON TROPI #### [address] [address] Water Chaser: Ramsey Rodriguez MD Abs.Neutrophil (Seg) 4.44 k/uL Normal 1.50-8.10 [facility] Comment on above: Performed By: #### Nicol LEON TROPI #### [place] [address] Water Chaser: Ramsey Rodriguez MD Basophils/100 WBC (Bld) 0 % Normal 0-2 [facility] Comment on above: Performed By: #### Nicol LEON TROPI #### [address] [address] Water Chaser: Ramsey Rodriguez MD Eosinophils (Bld) [#/Vol] 0.26 10*3/uL Normal 0.00-0.44 [facility] Comment on above: Performed By: #### B MP, TROPI #### [facility] [address] [place] [address] Water Chaser: Ramsey Rodriguez MD Eosinophils/100 WBC (Bld) 4 % Normal 1-4 [facility] Comment on above: Performed By: #### B MP, TROPI #### [facility] [address] [place] [address] Water Chaser: Ramsey Rodriguez MD Erythrocyte distribution width (RBC) [Ratio] 15.8 % High 11.8-14.4 [facility] Comment on above: Performed By: #### B EDWARD, TROPI #### [facility] [address] [place] [address] Water Chaser: Ramsey Rodriguez MD Hematocrit (Bld) [Volume fraction] 35.5 % Low 40.7-50.3 [facility] Comment on above: Performed By: #### B EDWARD, TROPI #### [facility] [address] [place] [address] Water Chaser: Ramsey Rodriguez MD Hemoglobin (Bld) [Mass/Vol] 10.8 g/dL Low 13.0-17.0 [facility] Comment on above: Performed By: #### B EDWARD, TROPI #### [facility] [address] [place] [address] Water Chaser: Ramsey Rodriguez MD Immature granulocytes/100 WBC (Bld) 0 % Normal 0 [facility] Comment on above: Performed By: #### B EDWARD, TROPI #### [facility] [address] [place] [address] Water Chaser: Ramsey Rodriguez MD Lymphocytes (Bld) [#/Vol] 0.92 10*3/uL Low 1.10-3.70 [facility] Comment on above: Performed By: #### B EDWARD, TROPI #### [address] [address] Water Chaser: Ramsey Rodriguez MD Lymphocytes/100 WBC (Bld) 15 % Low 24-43 [facility] Comment on above: Performed By: #### B MP, TROPI #### [facility] [address] [place] [address] Water Chaser: Ramsey Rodriguez MD MCH (RBC) [Entitic mass] 30.6 pg Normal 25.2-33.5 [facility] Comment on above: Performed By: #### B EDWARD, TROPI #### [address] [address] Water Chaser: Ramsey Rodriguez MD MCHC (RBC) [Mass/Vol] 30.4 g/dL Normal 28.4-34.8 [facility] Comment on above: Performed By: #### B EDWARD, TROPI #### [address] [address] Water Chaser: Ramsey Rodriguez MD MCV (RBC) [Entitic vol] 100.6 fL Normal 82.6-102.9 [facility] Comment on above: Performed By: #### B EDWARD, TROPI #### [address] [address] Water Chaser: Ramsey Rodriguez MD Monocytes (Bld) [#/Vol] 0.31 10*3/uL Normal 0.10-1.20 [facility] Comment on above: Performed By: #### B MP, TROPI #### [address] [address] Water Chaser: Ramsey Rodriguez MD Monocytes/100 WBC (Bld) 5 % Normal 3-12 [facility] Comment on above: Performed By: #### B MP, TROPI #### [facility] [address] [place] [address] Water Chaser: Ramsey Rodriguez MD Neutrophil (Seg) 76 % High 36-65 [facility] Comment on above: Performed By: #### B EDWARD, TROPI #### [address] [address] Water Chaser: Ramsey Rodriguez MD NRBC Automated 0.0 per 100 WBC Normal 0.0 [facility] Comment on above: Performed By: #### B MP, TROPI #### [facility] [place] [address] Water Chaser: Ramsey Rodriguez MD Platelet mean volume (Bld) [Entitic vol] 9.9 fL Normal 8.1-13.5 [facility] Comment on above: Performed By: #### B EDWARD, TROPI #### [address] [address] Water Chaser: Ramsey Rodriguez MD Platelets (Bld) [#/Vol] 129 10*3/uL Low 138-453 [facility] Comment on above: Performed By: #### B EDWARD, TROPI #### [address] [address] Water Chaser: Ramsey Rodriguez MD RBC (Bld) [#/Vol] 3.53 10*6/uL Low 4.21-5.77 [facility] Comment on above: Performed By: #### B EDWARD, TROPI #### [address] [address] Water Chaser: Ramsey Rodriguez MD RBC morphology finding Nom (Bld) ANISOCYTOSIS PRESENT Normal [facility] Comment on above: Performed By: #### B MP, TROPI #### [address] [address] Water Chaser: Ramsey Rodriguez MD WBC (Bld) [#/Vol] 6.0 10*3/uL Normal 3.5-11.3 [facility] Comment on above: Performed By: #### B EDWARD TROPI #### [facility] [address] [place] [address] [phone] Water Chaser: Ramsey Rodriguez MD Glucose,Whole Bloodon 2023 Glucose [Mass/Vol] 110 mg/dL Normal 75-110 [facility] Glucose [Mass/Vol] 97 mg/dL Normal 75-110 [facility] Glucose [Mass/Vol] 94 mg/dL Normal 75-110 [facility] Glucose [Mass/Vol] 90 mg/dL Normal 75-110 [facility] Magnesiumon 08-23-2023 Magnesium [Mass/Vol] 2.1 mg/dL Normal 1.6-2.4 [facility] Comment on above: Performed By: #### B EDWARD TROPI #### [facility] [place] [address] [phone] Water Chaser: Ramsey Rodriguez MD Phosphorus, Inorg.on 024 Phosphorus, Inorg. 1.7 mg/dL Low 2.5-4.5 [facility] Comment on above: Performed By: #### B KAITLYNN LEON #### [address] [phone] Water Chaser: Ramsey Rodriguez MD Basic Metab w/rfx MGon 08-21 Anion gap [Moles/Vol] 8 mmol/L Low 9-16 [facility] Comment on above: Performed By: #### H EPXA, CBC, PTT, PT #### [facility] [place] [address] [phone] Water Chaser: Ramsey Rodriguez MD Calcium [Mass/Vol] 8.3 mg/dL Low 8.6-10.4 [facility] Comment on above: Performed By: #### H EPXA, CBC, PTT, PT #### [facility] [address] [place] [address], [place] [address] Water Chaser: Ramsey Rodriguez MD Chloride [Moles/Vol] 105 mmol/L Normal 98-107 [facility] Comment on above: Performed By: #### H EPXA, CBC, PTT, PT #### [facility] [address] [place] [address] Water Chaser: Ramsey Rodriguez MD CO2 [Moles/Vol] 25 mmol/L Normal 20-31 [facility] Comment on above: Performed By: #### H EPXA, CBC, PTT, PT #### [facility] [address] [place] [address] Water Chaser: Ramsey Rodriguez MD Creatinine [Mass/Vol] 0.6 mg/dL Low 0.70-1.20 [facility] Comment on above: Performed By: #### H EPXA, CBC, PTT, PT #### [facility] [place] [address] Water Chaser: Ramsey Rodriguez MD GFR/1.73 sq M.predicted among non-blacks MDRD (S/P/Bld) [Vol rate/Area] mL/min/{1.73_m2} Normal >60 [facility] Comment on above: Result Comment: These [...] EPXA, CBC, PTT, PT #### [facility] [address] [place] [address] Water Chaser: Ramsey Rodriguez MD Glucose [Mass/Vol] 105 mg/dL High 74-99 [facility] Comment on above: Performed By: #### H EPXA, CBC, PTT, PT #### [facility] [address] [place] [address] Water Chaser: Ramsey Rodriguez MD Potassium [Moles/Vol] 4.2 mmol/L Normal 3.7-5.3 [facility] Comment on above: Result Comment: SPEC IMEN SLIGHTLY HEMOLYZED, RESULTS MAY BE ADVERSELY AFFECTED. Performed By: #### H EPXA, CBC, PTT, PT #### [facility] [place] [address] Water Chaser: Ramsey Rodriguez MD Sodium [Moles/Vol] 138 mmol/L Normal 136-145 [facility] Comment on above: Performed By: #### H EPXA, CBC, PTT, PT #### [address] [address] Water Chaser: Ramsey Rodriguez MD Urea nitrogen [Mass/Vol] 25 mg/dL High 8-23 [facility] Comment on above: Performed By: #### H EPXA, CBC, PTT, PT #### [address] [address] Water Chaser: Ramsey Rodriguez MD CBC with Diffon 08-22-2023 Abs. Basophil 0.03 k/uL Normal 0.00-0.20 [facility] Comment on above: Performed By: #### H EPXA, CBC, PTT, PT #### [facility] [place] [address] Water Chaser: Ramsey Rodriguez MD Abs.Imm.Granulocyte 0.03 k/uL Normal 0.00-0.30 [facility] Comment on above: Performed By: #### H EPXA, CBC, PTT, PT #### [facility] [place] [address] Water Chaser: Ramsey Rodriguez MD Abs.Neutrophil (Seg) 7.03 k/uL Normal 1.50-8.10 [facility] Comment on above: Performed By: #### H EPXA, CBC, PTT, PT #### [facility] [place] [address] Water Chaser: Ramsey Rodriguez MD Basophils/100 WBC (Bld) 0 % Normal 0-2 [facility] Comment on above: Performed By: #### H EPXA, CBC, PTT, PT #### [facility] [address] [place] [address] Water Chaser: Ramsey Rodriguez MD Eosinophils (Bld) [#/Vol] 0.10 10*3/uL Normal 0.00-0.44 [facility] Comment on above: Performed By: #### H EPXA, CBC, PTT, PT #### [facility] [address] [place] [address] Water Chaser: Ramsey Rodriguez MD Eosinophils/100 WBC (Bld) 1 % Normal 1-4 [facility] Comment on above: Performed By: #### H EPXA, CBC, PTT, PT #### [facility] [address] [place] [address] Water Chaser: Ramsey Rodriguez MD Erythrocyte distribution width (RBC) [Ratio] 16.0 % High 11.8-14.4 [facility] Comment on above: Performed By: #### H EPXA, CBC, PTT, PT #### [facility] [place] [address] Water Chaser: Ramsey Rodriguez MD Hematocrit (Bld) [Volume fraction] 38.1 % Low 40.7-50.3 [facility] Comment on above: Performed By: #### H EPXA, CBC, PTT, PT #### [facility] [address] [place] [address] Water Chaser: Ramsey Rodriguez MD Hemoglobin (Bld) [Mass/Vol] 11.9 g/dL Low 13.0-17.0 [facility] Comment on above: Performed By: #### H EPXA, CBC, PTT, PT #### [address] [address] Water Chaser: Ramsey Rodriguez MD Immature granulocytes/100 WBC (Bld) 0 % Normal 0 [facility] Comment on above: Performed By: #### H EPXA, CBC, PTT, PT #### [address] [address] Water Chaser: Ramsey Rodriguez MD Lymphocytes (Bld) [#/Vol] 0.78 10*3/uL Low 1.10-3.70 [facility] Comment on above: Performed By: #### H EPXA, CBC, PTT, PT #### [address] [address] Water Chaser: Ramsey oRdriguez MD Lymphocytes/100 WBC (Bld) 9 % Low 24-43 [facility] Comment on above: Performed By: #### H EPXA, CBC, PTT, PT #### [address] [address] Water Chaser: Ramsey Rodriguez MD MCH (RBC) [Entitic mass] 30.8 pg Normal 25.2-33.5 [facility] Comment on above: Performed By: #### H EPXA, CBC, PTT, PT #### [facility] [place] [address] Water Chaser: Ramsey Rodriguez MD MCHC (RBC) [Mass/Vol] 31.2 g/dL Normal 28.4-34.8 [facility] Comment on above: Performed By: #### H EPXA, CBC, PTT, PT #### [facility] [place] [address] [phone] Water Chaser: Ramsey Rodriguez MD MCV (RBC) [Entitic vol] 98.7 fL Normal 82.6-102.9 [facility] Comment on above: Performed By: #### H EPXA, CBC, PTT, PT #### [address] [address] Water Chaser: Ramsey Rodriguez MD Monocytes (Bld) [#/Vol] 0.32 10*3/uL Normal 0.10-1.20 [facility] Comment on above: Performed By: #### H EPXA, CBC, PTT, PT #### [address] [address] Water Chaser: Ramsey Rodriguez MD Monocytes/100 WBC (Bld) 4 % Normal 3-12 [facility] Comment on above: Performed By: #### H EPXA, CBC, PTT, PT #### [address] [address] Water Chaser: Ramsey Rodriguez MD Neutrophil (Seg) 86 % High 36-65 [facility] Comment on above: Performed By: #### H EPXA, CBC, PTT, PT #### [address] [address] Water Chaser: Ramsey Rodriguez MD NRBC Automated 0.0 per 100 WBC Normal 0.0 [facility] Comment on above: Performed By: #### H EPXA, CBC, PTT, PT #### [address] [address] Water Chaser: Ramsey Rodriguez MD Platelet mean volume (Bld) [Entitic vol] 10.1 fL Normal 8.1-13.5 [facility] Comment on above: Performed By: #### H EPXA, CBC, PTT, PT #### [address] [address] Water Chaser: Ramsey Rodriguez MD Platelets (Bld) [#/Vol] 140 10*3/uL Normal 138-453 [facility] Comment on above: Performed By: #### H EPXA, CBC, PTT, PT #### [facility] [place] [address] Water Chaser: Ramsey Rodriguez MD RBC (Bld) [#/Vol] 3.86 10*6/uL Low 4.21-5.77 [facility] Comment on above: Performed By: #### H EPXA, CBC, PTT, PT #### [facility] [address] [place] [address] Water Chaser: Ramsey Rodriguez MD RBC morphology finding Nom (Bld) ANISOCYTOSIS PRESENT Normal [facility] Comment on above: Performed By: #### H EPXA, CBC, PTT, PT #### [facility] [place] [address] Water Chaser: Ramsey Rodriguez MD WBC (Bld) [#/Vol] 8.3 10*3/uL Normal 3.5-11.3 [facility] Comment on above: Performed By: #### H EPXA, CBC, PTT, PT #### [facility] [place] [address] Water Chaser: Ramsey Rodriguez MD Glucose,Whole Bloodon 2023 Glucose [Mass/Vol] 127 mg/dL High 75-110 [facility] Glucose [Mass/Vol] 125 mg/dL High 75-110 [facility] Glucose [Mass/Vol] 112 mg/dL High 75-110 [facility] Glucose [Mass/Vol] 84 mg/dL Normal 75-110 [facility] Glucose [Mass/Vol] 86 mg/dL Normal 75-110 [facility] Glucose [Mass/Vol] 96 mg/dL Normal 75-110 [facility] Magnesiumon 08-22-2023 Magnesium [Mass/Vol] 1.8 mg/dL Normal 1.6-2.4 [facility] Comment on above: Performed By: #### H EPXA, CBC, PTT, PT #### [facility] [place] [address] Water Chaser: Ramsey Rodriguez MD Phosphorus, Inorg.on 024 Phosphorus, Inorg. 2.2 mg/dL Low 2.5-4.5 [facility] Comment on above: Performed By: #### H EPXA, CBC, PTT, PT #### [facility] [place] [address] Water Chaser: Ramsey Rodriguez MD Basic Metab w/rfx MGon 08-20 Anion gap [Moles/Vol] 10 mmol/L Normal 9-16 [facility] Comment on above: Performed By: #### H EPXA, CBC, PTT, PT #### [address] [address] Water Chaser: Ramsey Rodriguez MD Calcium [Mass/Vol] 9.0 mg/dL Normal 8.6-10.4 [facility] Comment on above: Performed By: #### H EPXA, CBC, PTT, PT #### [facility] [place] [address] Water Chaser: Ramsey Rodriguez MD Chloride [Moles/Vol] 105 mmol/L Normal 98-107 [facility] Comment on above: Performed By: #### H EPXA, CBC, PTT, PT #### [facility] [place] [address] Water Chaser: Ramsey Rodriguez MD CO2 [Moles/Vol] 27 mmol/L Normal 20-31 [facility] Comment on above: Performed By: #### H EPXA, CBC, PTT, PT #### [facility] [place] [address] Water Chaser: Ramsey Rodriguez MD Creatinine [Mass/Vol] 0.7 mg/dL Normal 0.70-1.20 [facility] Comment on above: Performed By: #### H EPXA, CBC, PTT, PT #### [facility] [place] [address] Water Chaser: Ramsey Rodriguez MD GFR/1.73 sq M.predicted among non-blacks MDRD (S/P/Bld) [Vol rate/Area] 89 mL/min/{1.73_m2} Normal >60 [facility] Comment on above: Result Comment: These [...] EPXA, CBC, PTT, PT #### [facility] [place] [address] Water Chaser: Ramsey Rodriguez MD Glucose [Mass/Vol] 146 mg/dL High 74-99 [facility] Comment on above: Performed By: #### H EPXA, CBC, PTT, PT #### [facility] [address] [place] [address] Water Chaser: Ramsey Rodriguez MD Potassium [Moles/Vol] 4.4 mmol/L Normal 3.7-5.3 [facility] Comment on above: Performed By: #### H EPXA, CBC, PTT, PT #### [facility] [address] [place] [address] Water Chaser: Ramsey Rodriguez MD Sodium [Moles/Vol] 142 mmol/L Normal 136-145 [facility] Comment on above: Performed By: #### H EPXA, CBC, PTT, PT #### [facility] [address] [place] [address] Water Chaser: Ramsey Rodriguez MD Urea nitrogen [Mass/Vol] 25 mg/dL High 8-23 [facility] Comment on above: Performed By: #### H EPXA, CBC, PTT, PT #### [facility] [place] [address] Water Chaser: Ramsey Rodriguez MD CBC with Diffon 08-21-2023 Abs. Basophil 0.00 k/uL Normal 0.0-0.2 [facility] Comment on above: Performed By: #### H EPXA, CBC, PTT, PT #### [facility] [place] [address] Water Chaser: Ramsey Rodriguez MD Abs.Imm.Granulocyte 0.00 k/uL Normal 0.00-0.30 [facility] Comment on above: Performed By: #### H EPXA, CBC, PTT, PT #### [place] [address] Water Chaser: Ramsey Rodriguez MD Abs.Neutrophil (Seg) 10.86 k/uL High 1.8-7.7 [facility] Comment on above: Performed By: #### H EPXA, CBC, PTT, PT #### [facility] [place] [address] Water Chaser: Ramsey Rodriguez MD Basophils/100 WBC (Bld) 0 % Normal 0-2 [facility] Comment on above: Performed By: #### H EPXA, CBC, PTT, PT #### [facility] [place] [address] Water Chaser: Ramsey Rodriguez MD Eosinophils (Bld) [#/Vol] 0.00 10*3/uL Normal 0.0-0.4 [facility] Comment on above: Performed By: #### H EPXA, CBC, PTT, PT #### [facility] [address] [place] [address] Water Chaser: Ramsey Rodriguez MD Eosinophils/100 WBC (Bld) 0 % Low 1-4 [facility] Comment on above: Performed By: #### H EPXA, CBC, PTT, PT #### [facility] [address] [place] [address] Water Chaser: Ramsey Rodriguez MD Immature granulocytes/100 WBC (Bld) 0 % Normal 0 [facility] Comment on above: Performed By: #### H EPXA, CBC, PTT, PT #### [facility] [address] [place] [address] Water Chaser: Ramsey Rodriguez MD Lymphocytes (Bld) [#/Vol] 0.73 10*3/uL Low 1.0-4.8 [facility] Comment on above: Performed By: #### H EPXA, CBC, PTT, PT #### [address] [address] Water Chaser: Ramsey Rodriguez MD Lymphocytes/100 WBC (Bld) 6 % Low 24-44 [facility] Comment on above: Performed By: #### H EPXA, CBC, PTT, PT #### [facility] [address] [place] [address] Water Chaser: Ramsey Rodriguez MD Monocytes (Bld) [#/Vol] 0.61 10*3/uL Normal 0.1-0.8 [facility] Comment on above: Performed By: #### H EPXA, CBC, PTT, PT #### [facility] [place] [address] Water Chaser: Ramsey Rodriguez MD Monocytes/100 WBC (Bld) 5 % Normal 1-7 [facility] Comment on above: Performed By: #### H EPXA, CBC, PTT, PT #### [facility] [address] [place] [address] Water Chaser: Ramsey Rodriguez MD Morphology Edmond (Bld) [Interp] ANISOCYTOSIS PRESENT Normal [facility] Comment on above: Performed By: #### H EPXA, CBC, PTT, PT #### [facility] [address] [place] [address] Water Chaser: Ramsey Rodriguez MD Neutrophil (Seg) 89 % High 36-66 [facility] Comment on above: Performed By: #### H EPXA, CBC, PTT, PT #### [facility] [place] [address] Water Chaser: Ramsey Rodriguez MD Erythrocyte distribution width (RBC) [Ratio] 15.7 % High 11.8-14.4 [facility] Comment on above: Performed By: #### H EPXA, CBC, PTT, PT #### [facility] [place] [address] Water Chaser: Ramsey Rodriguez MD Hematocrit (Bld) [Volume fraction] 40.8 % Normal 40.7-50.3 [facility] Comment on above: Performed By: #### H EPXA, CBC, PTT, PT #### [facility] [place] [address] Water Chaser: Ramsey Rodriguez MD Hemoglobin (Bld) [Mass/Vol] 13.2 g/dL Normal 13.0-17.0 [facility] Comment on above: Performed By: #### H EPXA, CBC, PTT, PT #### [facility] [place] [address] Water Chaser: Ramsey Rodriguez MD MCH (RBC) [Entitic mass] 30.3 pg Normal 25.2-33.5 [facility] Comment on above: Performed By: #### H EPXA, CBC, PTT, PT #### [facility] [place] [address] Water Chaser: Ramsey Rodriguez MD MCHC (RBC) [Mass/Vol] 32.4 g/dL Normal 28.4-34.8 [facility] Comment on above: Performed By: #### H EPXA, CBC, PTT, PT #### [address] [address] Water Chaser: Ramsey Rodriguez MD MCV (RBC) [Entitic vol] 93.8 fL Normal 82.6-102.9 [facility] Comment on above: Performed By: #### H EPXA, CBC, PTT, PT #### [address] [address] Water Chaser: Ramsey Rodriguez MD NRBC Automated 0.0 per 100 WBC Normal 0.0 [facility] Comment on above: Performed By: #### H EPXA, CBC, PTT, PT #### [address] [address] Water Chaser: Ramsey Rodriguez MD Platelet mean volume (Bld) [Entitic vol] 10.0 fL Normal 8.1-13.5 [facility] Comment on above: Performed By: #### H EPXA, CBC, PTT, PT #### [address] [address] Water Chaser: Ramsey Rodriguez MD Platelets (Bld) [#/Vol] 197 10*3/uL Normal 138-453 [facility] Comment on above: Performed By: #### H EPXA, CBC, PTT, PT #### [address] [address] Water Chaser: Ramsey Rodriguez MD RBC (Bld) [#/Vol] 4.35 10*6/uL Normal 4.21-5.77 [facility] Comment on above: Performed By: #### H EPXA, CBC, PTT, PT #### [address] [address] Water Chaser: Ramsey Rodriguez MD WBC (Bld) [#/Vol] 12.2 10*3/uL High 3.5-11.3 [facility] Comment on above: Performed By: #### H EPXA, CBC, PTT, PT #### [address] [phone] Water Chaser: Ramsey Rodriguez MD Glucose,Whole Bloodon 2023 Glucose [Mass/Vol] 124 mg/dL High 75-110 [facility] Glucose [Mass/Vol] 95 mg/dL Normal 75-110 [facility] Magnesiumon 08-21-2023 Magnesium [Mass/Vol] 2.0 mg/dL Normal 1.6-2.4 [facility] Comment on above: Performed By: #### H EPXA, CBC, PTT, PT #### [address] [phone] Water Chaser: Ramsey Rodriguez MD Phosphorus, Inorg.on 024 Phosphorus, Inorg. 3.9 mg/dL Normal 2.5-4.5 [facility] Comment on above: Performed By: #### H EPXA, CBC, PTT, PT #### [facility] [address] [place] [address] [phone] Water Chaser: Ramsey Rodriguez MD Type + Screenon 08-21-2023 Type + Screen Sample Expiration 08/24/2023,2359 Arm Band Number BE [id number] ABO/Rh(D) O NEGATIVE Antibody Screen NEGATIVE Normal [facility] Comment on above: Performed By: #### H EPXA, CBC, PTT, PT #### [facility] [address] [place] [address] [phone] Water Chaser: Ramsey Rodriguez MD XR CHEST PORTABLEon 08-21-19 [...] Dave Burns MD 08/21/23 Final result Normal [facility] Basophils Auto (Bld) [#/Vol] on 08-20-2023 Basophils (Bld) [#/Vol] 0.1 10 3/uL 0.0-0.1 [facility] Basophils/100 WBC Auto (Bld) on 08-20-2023 Basophils/100 WBC (Bld) 0.3 % 0.2-2.0 [facility] Bilirubin Auto test strip (U ) [Mass/Vol]on 08-20-2023 Bilirubin (U) [Mass/Vol] Negative NEGATIVE [facility] CBC with Diffon 08-20-2023 Abs. Basophil 0.00 k/uL Normal 0.0-0.2 [facility] Comment on above: Performed By: #### H EPXA, CBC, PTT, PT #### [employer] [address] [place] [address] Water Chaser: Ramsey Rodriguez MD Abs.Imm.Granulocyte 0.00 k/uL Normal 0.00-0.30 [facility] Comment on above: Performed By: #### H EPXA, CBC, PTT, PT #### [employer] [address] [place] [address] Water Chaser: Ramsey Rodriguez MD Abs.Neutrophil (Seg) 12.60 k/uL High 1.8-7.7 [facility] Comment on above: Performed By: #### H EPXA, CBC, PTT, PT #### [employer] [address] [place] [address] Water Chaser: Ramsey Rodriguez MD Basophils/100 WBC (Bld) 0 % Normal 0-2 [facility] Comment on above: Performed By: #### H EPXA, CBC, PTT, PT #### [employer] [facility] [place] [address] Water Chaser: Ramsey Rodriguez MD Eosinophils (Bld) [#/Vol] 0.00 10*3/uL Normal 0.0-0.4 [facility] Comment on above: Performed By: #### H EPXA, CBC, PTT, PT #### [address] [address] Water Chaser: Ramsey Rodriguez MD Eosinophils/100 WBC (Bld) 0 % Low 1-4 [facility] Comment on above: Performed By: #### H EPXA, CBC, PTT, PT #### [address] [address] Water Chaser: Ramsey Rodriguez MD Immature granulocytes/100 WBC (Bld) 0 % Normal 0 [facility] Comment on above: Performed By: #### H EPXA, CBC, PTT, PT #### [address] [address] Water Chaser: Ramsey Rodriguez MD Lymphocytes (Bld) [#/Vol] 0.67 10*3/uL Low 1.0-4.8 [facility] Comment on above: Performed By: #### H EPXA, CBC, PTT, PT #### [address] [address] Water Chaser: Ramsey Rodriguez MD Lymphocytes/100 WBC (Bld) 5 % Low 24-44 [facility] Comment on above: Performed By: #### H EPXA, CBC, PTT, PT #### [facility] [address] [place] [address] Water Chaser: Ramsey Rodriguez MD Monocytes (Bld) [#/Vol] 0.13 10*3/uL Normal 0.1-0.8 [facility] Comment on above: Performed By: #### H EPXA, CBC, PTT, PT #### [address] [address] Water Chaser: Ramsey Rodriguez MD Monocytes/100 WBC (Bld) 1 % Normal 1-7 [facility] Comment on above: Performed By: #### H EPXA, CBC, PTT, PT #### [address] [address] Water Chaser: Ramsey Rodriguez MD Morphology Edmond (Bld) [Interp] ANISOCYTOSIS PRESENT Normal [facility] Comment on above: Performed By: #### H EPXA, CBC, PTT, PT #### [address] [address] Water Chaser: Ramsey Rodriguez MD Neutrophil (Seg) 94 % High 36-66 [facility] Comment on above: Performed By: #### H EPXA, CBC, PTT, PT #### [facility] [place] [address] Water Chaser: Ramsey Rodriguez MD Erythrocyte distribution width (RBC) [Ratio] 15.6 % High 11.8-14.4 [facility] Comment on above: Performed By: #### H EPXA, CBC, PTT, PT #### [address] [address] Water Chaser: Ramsey Rodriguez MD Hematocrit (Bld) [Volume fraction] 43.6 % Normal 40.7-50.3 [facility] Comment on above: Performed By: #### H EPXA, CBC, PTT, PT #### [facility] [place] [address] Water Chaser: Ramsey Rodriguez MD Hemoglobin (Bld) [Mass/Vol] 14.0 g/dL Normal 13.0-17.0 [facility] Comment on above: Performed By: #### H EPXA, CBC, PTT, PT #### [address] [address] Water Chaser: Ramsey Rodriguez MD MCH (RBC) [Entitic mass] 30.6 pg Normal 25.2-33.5 [facility] Comment on above: Performed By: #### H EPXA, CBC, PTT, PT #### [address] [address] Water Chaser: Ramsey Rodriguez MD MCHC (RBC) [Mass/Vol] 32.1 g/dL Normal 28.4-34.8 [facility] Comment on above: Performed By: #### H EPXA, CBC, PTT, PT #### [address] [address] Water Chaser: Ramsey Rodriguez MD MCV (RBC) [Entitic vol] 95.2 fL Normal 82.6-102.9 [facility] Comment on above: Performed By: #### H EPXA, CBC, PTT, PT #### [address] [address] Water Chaser: Ramsey Rodriguez MD NRBC Automated 0.0 per 100 WBC Normal 0.0 [facility] Comment on above: Performed By: #### H EPXA, CBC, PTT, PT #### [address] [address] Water Chaser: Ramsey Rodriguez MD Platelet mean volume (Bld) [Entitic vol] 10.1 fL Normal 8.1-13.5 [facility] Comment on above: Performed By: #### H EPXA, CBC, PTT, PT #### [address] [address] Water Chaser: Ramsey Rodriguez MD Platelets (Bld) [#/Vol] 200 10*3/uL Normal 138-453 [facility] Comment on above: Performed By: #### H EPXA, CBC, PTT, PT #### [facility] [address] [place] [address] Water Chaser: Ramsey Rodriguez MD RBC (Bld) [#/Vol] 4.58 10*6/uL Normal 4.21-5.77 [facility] Comment on above: Performed By: #### H EPXA, CBC, PTT, PT #### [address] [address] Water Chaser: Ramsey Rodriguez MD WBC (Bld) [#/Vol] 13.4 10*3/uL High 3.5-11.3 [facility] Comment on above: Performed By: #### H EPXA, CBC, PTT, PT #### [facility] [place] [address] Water Chaser: Ramsey Rodriguez MD Comp Metabolic Profon 2023 Albumin [Mass/Vol] 3.5 g/dL Normal 3.5-5.2 [facility] Comment on above: Performed By: #### H EPXA, CBC, PTT, PT #### [address] [address] Water Chaser: Ramsey Rodriguez MD Albumin/Glob Ratio 1.0 Normal 1.0-2.5 [facility] Comment on above: Performed By: #### H EPXA, CBC, PTT, PT #### [facility] [address] [place] [address] Water Chaser: Ramsey Rodriguez MD Alkaline Phos 93 U/L Normal 40-129 [facility] Comment on above: Performed By: #### H EPXA, CBC, PTT, PT #### [facility] [address] [place] [address] Water Chaser: Ramsey Rodriguez MD ALT [Catalytic activity/Vol] 58 U/L High 10-50 [facility] Comment on above: Performed By: #### H EPXA, CBC, PTT, PT #### [facility] [place] [address] Water Chaser: Ramsey Rodriguez MD Anion gap [Moles/Vol] 12 mmol/L Normal 9-16 [facility] Comment on above: Performed By: #### H EPXA, CBC, PTT, PT #### [facility] [address] [place] [address] Water Chaser: Ramsey Rodriguez MD AST [Catalytic activity/Vol] 75 U/L High 10-50 [facility] Comment on above: Result Comment: SPEC IMEN SLIGHTLY HEMOLYZED, RESULTS MAY BE ADVERSELY AFFECTED. Performed By: #### H EPXA, CBC, PTT, PT #### [facility] [place] [address] Water Chaser: Ramsey Rodriguez MD Bilirubin [Mass/Vol] 1.1 mg/dL Normal 0.00-1.20 [facility] Comment on above: Performed By: #### H EPXA, CBC, PTT, PT #### [facility] [place] [address] Water Chaser: Ramsey Rodriguez MD Calcium [Mass/Vol] 9.1 mg/dL Normal 8.6-10.4 [facility] Comment on above: Performed By: #### H EPXA, CBC, PTT, PT #### [facility] [address] [place] [address] Water Chaser: Ramsey Rodriguez MD Chloride [Moles/Vol] 100 mmol/L Normal 98-107 [facility] Comment on above: Performed By: #### H EPXA, CBC, PTT, PT #### [facility] [place] [address] Water Chaser: Ramsey Rodriguez MD CO2 [Moles/Vol] 25 mmol/L Normal 20-31 [facility] Comment on above: Performed By: #### H EPXA, CBC, PTT, PT #### [facility] [address] [place] [address] Water Chaser: Ramsey Rodriguez MD Creatinine [Mass/Vol] 0.8 mg/dL Normal 0.70-1.20 [facility] Comment on above: Performed By: #### H EPXA, CBC, PTT, PT #### [address] [address] Water Chaser: Ramsey Rodriguez MD GFR/1.73 sq M.predicted among non-blacks MDRD (S/P/Bld) [Vol rate/Area] 87 mL/min/{1.73_m2} Normal >60 [facility] Comment on above: Result Comment: These [...] EPXA, CBC, PTT, PT #### [facility] [address] [place] [address] Water Chaser: Ramsey Rodriguez MD Glucose [Mass/Vol] 208 mg/dL High 74-99 [facility] Comment on above: Performed By: #### H EPXA, CBC, PTT, PT #### [facility] [address] [place] [address] Water Chaser: Ramsey Rodriguez MD Potassium [Moles/Vol] 4.4 mmol/L Normal 3.7-5.3 [facility] Comment on above: Result Comment: SPEC IMEN SLIGHTLY HEMOLYZED, RESULTS MAY BE ADVERSELY AFFECTED. Performed By: #### H EPXA, CBC, PTT, PT #### [facility] [address] [place] [address] Water Chaser: Ramsey Rodriguez MD Protein [Mass/Vol] 7.9 g/dL Normal 6.6-8.7 [facility] Comment on above: Performed By: #### H EPXA, CBC, PTT, PT #### [facility] [address] [place], [place] [id number] Water Chaser: Ramsey Rodriguez MD Sodium [Moles/Vol] 137 mmol/L Normal 136-145 [facility] Comment on above: Performed By: #### H EPXA, CBC, PTT, PT #### [employer] [facility] [address] [place], [place] [id number] Water Chaser: Ramsey Rodriguez MD Urea nitrogen [Mass/Vol] 26 mg/dL High 8-23 [facility] Comment on above: Performed By: #### H EPXA, CBC, PTT, PT #### [facility] [place], [place] [id number] Water Chaser: Ramsey Rodriguez MD Eosinophils/100 WBC Auto (Bl d)on 08-20-2023 Eosinophils/100 WBC (Bld) 0.1 % 0.9-7.0 [facility] Erythrocyte distribution wid th Auto (RBC) [Ratio]on 08-20-2023 Erythrocyte distribution width (RBC) [Ratio] 15.2 % 11.0-15.0 [facility] Estimated glomerular filtrat ion rate (GFR) non- Americanon 08-20-2023 GFR/1.73 sq M.predicted among non-blacks MDRD (S/P/Bld) [Vol rate/Area] mL/min/{1.73_m2} >=60 [facility] Globulin Calc (S) [Mass/Vol] on 08-20-2023 Globulin (S) [Mass/Vol] 5.3 g/dL [facility] Hematocrit Auto (Bld) [Volum e fraction]on 08-20-2023 Hematocrit (Bld) [Volume fraction] 40.8 % 42.0-54.0 [facility] Hemoglobin [Mass/volume] in Bloodon 08-20-2023 Hemoglobin (Bld) [Mass/Vol] 13.3 g/dL 14.0-18.0 [facility] Laboratory - Chemistry and C hemistry - challengeon 08-20-2023 Glucose (U) [Mass/Vol] Negative NEGATIVE [facility] Ketones Ql (U) Negative NEGATIVE [facility] pH (U) 5.0 [pH] 5.0-9.0 [facility] Specific gravity (U) [Rel density] 1.020 1.005-1.025 [facility] Urobilinogen Qn (U) 0.2 {Amy'U}/dL 0.2-1.0 [facility] Albumin [Mass/Vol] 3.2 g/dL 3.4-5.0 [facility] ALP [Catalytic activity/Vol] 104 U/L 46-116 [facility] ALT [Catalytic activity/Vol] 74 U/L 16-63 [facility] AST [Catalytic activity/Vol] 67 U/L 15-37 [facility] Bilirubin [Mass/Vol] 1.3 mg/dL 0.2-1.0 [facility] Calcium [Mass/Vol] 9.7 mg/dL 8.5-10.1 [facility] Chloride [Moles/Vol] 100 mmol/L 98-107 [facility] CO2 [Moles/Vol] 28.2 mmol/L 21.0-32.0 [facility] Creatinine [Mass/Vol] 1.05 mg/dL 0.70-1.30 [facility] GFR/1.73 sq M.predicted MDRD (S/P/Bld) [Vol rate/Area] mL/min/{1.73_m2} >=60 [facility] Glucose [Mass/Vol] 202 mg/dL 74-106 [facility] Lipase [Catalytic activity/Vol] 18.0 U/L 16.0-77.0 [facility] Natriuretic peptide B (Bld) [Mass/Vol] 470.0 pg/mL <=1800.0 [facility] Potassium [Moles/Vol] 3.6 mmol/L 3.5-5.1 [facility] Protein [Mass/Vol] 8.5 g/dL 6.4-8.2 [facility] Sodium [Moles/Vol] 137 mmol/L 136-145 [facility] Urea nitrogen [Mass/Vol] 30.0 mg/dL 7.0-18.0 [facility] Urea nitrogen/Creatinine [Mass ratio] 28.6 mg/mg [facility] Laboratory - Hematology and Cell countson 08-20-2023 Immature granulocytes/100 WBC (Bld) 0.4 % 0.0-0.5 [facility] Laboratory - Specimen inform ationon 08-20-2023 Appearance (U) CLEAR CLEAR [facility] Color (U) YELLOW YELLOW [facility] Laboratory - Urinalysison Leukocyte esterase Test strip Ql (U) Negative NEGATIVE [facility] Nitrite Ql (U) Negative NEGATIVE [facility] Protein Ql (U) Negative NEG/TRACE [facility] Lactic Acidon 08-20-2023 Lactic Acid,Whole Bl 3.6 mmol/L High 0.7-2.1 [facility] Comment on above: Performed By: #### H EPXA, CBC, PTT, PT #### [facility] [place] [address] Water Chaser: Ramsey Rodriguez MD Leukocytes [#/volume] correc александр for nucleated erythrocytes in Blood by Automated counon 08-20-2023 WBC corrected for nucl RBC Auto (Bld) [#/Vol] 15.6 10 3/uL 4.0-11.0 [facility] Lymphocytes Auto (Bld) [#/Vo l]on 08-20-2023 Lymphocytes (Bld) [#/Vol] 1.5 10 3/uL 1.2-3.8 [facility] Lymphocytes/100 WBC Auto (Bl d)on 08-20-2023 Lymphocytes/100 WBC (Bld) 9.6 % 20.5-60.0 [facility] MCH Auto (RBC) [Entitic mass ]on 08-20-2023 MCH (RBC) [Entitic mass] 30.6 pg 25.9-34.0 [facility] MCHC Auto (RBC) [Mass/Vol]on 08-20-2023 MCHC (RBC) [Mass/Vol] 32.6 g/dL 29.9-35.2 [facility] MCV Auto (RBC) [Entitic vol] on 08-20-2023 MCV (RBC) [Entitic vol] 93.8 fL 80.0-94.0 [facility] Magnesiumon 08-20-2023 Magnesium [Mass/Vol] 2.0 mg/dL Normal 1.6-2.4 [facility] Comment on above: Performed By: #### H EPXA, CBC, PTT, PT #### [employer] [facility] [address] [place] [address] Water Chaser: Ramsey Rodriguez MD Monocytes Auto (Bld) [#/Vol] on 08-20-2023 Monocytes (Bld) [#/Vol] 0.5 10 3/uL 0.3-0.8 [facility] Monocytes/100 WBC Auto (Bld) on 08-20-2023 Monocytes/100 WBC (Bld) 3.2 % 1.7-12.0 [facility] Neutrophils Auto (Bld) [#/Vo l]on 08-20-2023 Neutrophils (Bld) [#/Vol] 13.4 10 3/uL 1.4-6.5 [facility] Neutrophils/100 WBC Auto (Bl d)on 08-20-2023 Neutrophils/100 WBC (Bld) 86.4 % 43.0-75.0 [facility] No Panel Informationon 08-19 Urine Microscopic Review NO [facility] Eosinophils # (Auto) 0.0 10 3/uL 0.0-0.7 [facility] Immature Granulocyte # (Auto) 0.06 10 3/uL 0.00-0.03 [facility] Platelet mean volume Auto (B ld) [Entitic vol]on 08-20-2023 Platelet mean volume (Bld) [Entitic vol] 9.8 fL 9.5-13.5 [facility] Platelets Auto (Bld) [#/Vol] on 08-20-2023 Platelets (Bld) [#/Vol] 220 10 3/uL 150-450 [facility] RBC Auto (Bld) [#/Vol]on RBC (Bld) [#/Vol] 4.35 10 6/uL 4.70-6.10 [facility] Serum or plasma albumin/glob ulin mass ratioon 08-20-2023 Albumin/Globulin [Mass ratio] 0.6 {ratio} [facility] Serum or plasma anion gap de terminationon 08-20-2023 Anion gap [Moles/Vol] 12.4 mmol/L [facility] Urine hemoglobin detection b y automated test stripon 08-20-2023 Hemoglobin Auto test strip Ql (U) Negative NEGATIVE [facility] XR CHEST PORTABLEon 08-20-19 XR CHEST [...] Amada Rosario MD 08/20/23 Final result Normal [facility] CBC AUTO DIFFon 08-15-2022 BASO # 0.0 103/ul Normal 0.0-0.1 [facility] Comment on above: Performed By: #### C BC #### [facility] [address] [place] [address] Dr. Emily Lauren Basophils/100 WBC (Bld) 0.3 % Normal 0.2-2.0 [facility] Comment on above: Performed By: #### C BC #### [facility] [address] [place] [address] Dr. Emily Lauren EO # 0.2 103/ul Normal 0.0-0.7 [facility] Comment on above: Performed By: #### C BC #### [facility] [address] [place] [address] Dr. Emily Lauren Eosinophils/100 WBC (Bld) 3.1 % Normal 0.9-7.0 [facility] Comment on above: Performed By: #### C BC #### [facility] [address] [place] [address] Dr. Emily Lauren Erythrocyte distribution width (RBC) [Ratio] 14.9 % Normal 11.0-15.0 [facility] Comment on above: Performed By: #### C BC #### [facility] [address] [place] [address] Dr. Emily Lauren Hematocrit (Bld) [Volume fraction] 39.9 % Critically low 42.0-54.0 [facility] Comment on above: Performed By: #### C BC #### [facility] [address] [place] [address] Dr. Emily Lauren Hemoglobin (Bld) [Mass/Vol] 12.9 g/dL Critically low 14.0-18.0 [facility] Comment on above: Performed By: #### C BC #### [facility] [address] [place] [address] Dr. Emiyl Lauren IG # 0.02 10e3/ul Normal 0.00-0.03 [facility] Comment on above: Performed By: #### C BC #### [facility] [address] [place] [address] Dr. Emily Lauren IG % 0.3 % Normal 0.0-0.5 [facility] Comment on above: Performed By: #### C BC #### [facility] [address] [place] [address] Dr. Emily Lauren LYMPH # 2.4 103/ul Normal 1.2-3.8 [facility] Comment on above: Performed By: #### C BC #### [facility] [address] [place] [address] Dr. Emily Lauren Lymphocytes/100 WBC (Bld) 30.7 % Normal 20.5-60.0 [facility] Comment on above: Performed By: #### C BC #### [facility] [address] [place] [address] Dr. Emily Lauren MANUAL DIFF REQ NO Normal [facility] Comment on above: Performed By: #### C BC #### [facility] [address] [place] [address] Dr. Emily Lauren MCH (RBC) [Entitic mass] 30.4 pg Normal 25.9-34.0 [facility] Comment on above: Performed By: #### C BC #### [facility] [address] [place] [address] Dr. Emily Lauren MCHC (RBC) [Mass/Vol] 32.3 g/dL Normal 29.9-35.2 [facility] Comment on above: Performed By: #### C BC #### [facility] [address] [place] [address] Dr. Emily Lauren MCV (RBC) [Entitic vol] 94.1 fL Critically high 80.0-94.0 [facility] Comment on above: Performed By: #### C BC #### [facility] [address] [place] [address] Dr. Emily Lauren MONO # 0.5 103/ul Normal 0.3-0.8 [facility] Comment on above: Performed By: #### C BC #### [facility] [address] [place] [address] Dr. Emily Lauren Monocytes/100 WBC (Bld) 5.9 % Normal 1.7-12.0 [facility] Comment on above: Performed By: #### C BC #### [facility] [address] [place] [address] Dr. Emily Lauren NEUT # 4.6 103/ul Normal 1.4-6.5 [facility] Comment on above: Performed By: #### C BC #### [facility] [address] [place] [address] Dr. Emily Lauren Neutrophils/100 WBC (Bld) 59.7 % Normal 43.0-75.0 [facility] Comment on above: Performed By: #### C BC #### [facility] [address] [place] [address] Dr. Emily Lauren Platelet mean volume (Bld) [Entitic vol] 9.7 fL Normal 9.5-13.5 [facility] Comment on above: Performed By: #### C BC #### [facility] [address] [place] [address] Dr. Emily Lauren PLT 176 103/ul Normal 150-450 [facility] Comment on above: Performed By: #### C BC #### [facility] [address] [address] [address] Emily Lauren RBC 4.24 106/ul Critically low 4.70-6.10 [facility] Comment on above: Performed By: #### C BC #### [facility] [address] [address] [address] Emily Lauren WBC 7.7 103/ul Normal 4.0-11.0 [facility] Comment on above: Performed By: #### C BC #### [facility] [address] [place] [address] Dr. Emily Lauren PROF 14(COMP METB)on 023 Albumin [Mass/Vol] 3.4 g/dL Normal 3.4-5.0 [facility] Comment on above: Performed By: #### C MP #### [facility] [address] [place] [address] Dr. Emily Lauren Albumin/Globulin [Mass ratio] 0.8 {ratio} Normal [facility] Comment on above: Performed By: #### C MP #### [facility] [address] [place] [address] Dr. Emily Lauren ALP [Catalytic activity/Vol] 81 U/L Normal 46-116 [facility] Comment on above: Performed By: #### C MP #### [facility] [address] [place] [address] Dr. Emily Lauren ALT [Catalytic activity/Vol] 44 U/L Normal 16-63 [facility] Comment on above: Performed By: #### C MP #### [facility] [address] [place] [address] Dr. Emily Lauren Anion gap [Moles/Vol] 11.3 mmol/L Normal [facility] Comment on above: Performed By: #### C MP #### [facility] [address] [address] [address] Emily Lauren AST [Catalytic activity/Vol] 41 U/L Critically high 15-37 [facility] Comment on above: Performed By: #### C MP #### [facility] [address] [address] [address] Emily Lauren Bilirubin [Mass/Vol] 1.4 mg/dL Critically high 0.2-1.0 [facility] Comment on above: Performed By: #### C MP #### [facility] [address] [address] [address] Emily Lauren Calcium [Mass/Vol] 9.2 mg/dL Normal 8.5-10.1 [facility] Comment on above: Performed By: #### C MP #### [facility] [address] [address] [address] Emily Lauren Chloride [Moles/Vol] 106 mmol/L Normal 98-107 [facility] Comment on above: Performed By: #### C MP #### [facility] [address] [address] [address] Emily Lauren CO2 [Moles/Vol] 29.8 mmol/L Normal 21.0-32.0 [facility] Comment on above: Performed By: #### C MP #### [facility] [address] [address] [address] Emily Lauren Creatinine [Mass/Vol] 0.83 mg/dL Normal 0.70-1.30 [facility] Comment on above: Performed By: #### C MP #### [facility] [address] [address] [address] Emily Lauren EGFR-AF MARTINIQUAIS >60 Normal >=60 [facility] Comment on above: Performed By: #### C MP #### [facility] [address] [address] [address] Emily Lauren EGFR-NON AF MARTINIQUAIS >60 Normal >=60 [facility] Comment on above: Performed By: #### C MP #### [facility] [address] [address] [address] Emily Lauren Globulin (S) [Mass/Vol] 4.2 g/dL Normal [facility] Comment on above: Performed By: #### C MP #### [facility] [address] [place] [address] Dr. Emily Lauren Glucose [Mass/Vol] 80 mg/dL Normal 74-106 [facility] Comment on above: Performed By: #### C MP #### [facility] [address] [address] [address] Emily Lauren Potassium [Moles/Vol] 4.1 mmol/L Normal 3.5-5.1 [facility] Comment on above: Performed By: #### C MP #### [facility] [address] [place] [address] Dr. Emily Lauren Protein [Mass/Vol] 7.6 g/dL Normal 6.4-8.2 [facility] Comment on above: Performed By: #### C MP #### [facility] [address] [place] [address] Dr. Emily Lauren Sodium [Moles/Vol] 143 mmol/L Normal 136-145 [facility] Comment on above: Performed By: #### C MP #### [facility] [address] [place] [address] Dr. Emily Lauren Urea nitrogen [Mass/Vol] 26.0 mg/dL Critically high 7.0-18.0 [facility] Comment on above: Performed By: #### C MP #### [facility] [address] [place] [address] Dr. Emily Lauren Urea nitrogen/Creatinine [Mass ratio] 31.3 mg/mg Normal [facility] Comment on above: Performed By: #### C MP #### [facility] [address] [place] [address] Dr. Emily Lauren Vital Signs Date Time Vital Sign Value Performing Clinician Facility 06-12-2024 14:42-0500 Body height 175.26 cm [facility] 06-12-2024 14:42-0500 Body mass index (BMI) [Ratio] 20.8 kg/m2 [facility] 06-12-2024 14:42-0500 Body weight 64.06 kg [facility] 06-12-2024 14:42-0500 Diastolic blood pressure 77 mm[Hg] [facility] 06-12-2024 14:42-0500 Heart rate 58 /min [facility] 06-12-2024 14:42-0500 Respiratory rate 12 /min [facility] 06-12-2024 14:42-0500 Systolic blood pressure 146 mm[Hg] [facility] 04-30-2024 08:50-0500 Body height 172.7 cm Dante Casillas DPM Work Phone: [facility] 04-30-2024 08:50-0500 Body mass index (BMI) [Ratio] 28.74 kg/m2 Dante Casillas DPM Work Phone: [facility] 04-30-2024 08:50-0500 Body weight 85.73 kg Dante Casillas DPM Work Phone: [facility] 04-30-2024 08:50-0500 Respiratory rate 16 /min Dante Casillas DPM Work Phone: [facility] 12-13-2023 14:39-0400 Body height 175.26 cm [facility] 12-13-2023 14:39-0400 Body mass index (BMI) [Ratio] 23.5 kg/m2 [facility] 12-13-2023 14:39-0400 Body weight 72.17 kg [facility] 12-13-2023 14:39-0400 Diastolic blood pressure 68 mm[Hg] [facility] 12-13-2023 14:39-0400 Heart rate 68 /min [facility] 12-13-2023 14:39-0400 Systolic blood pressure 121 mm[Hg] [facility] 12-12-2023 09:58-0400 Body height 172.7 cm Dante Casillas DPM Work Phone: [facility] 12-12-2023 09:58-0400 Body mass index (BMI) [Ratio] 28.74 kg/m2 Dante Casillas DPM Work Phone: [facility] 12-12-2023 09:58-0400 Body weight 85.73 kg Dante Casillas DPM Work Phone: [facility] 12-12-2023 09:58-0400 Diastolic blood pressure 79 mm[Hg] Dante Casillas DPM Work Phone: [facility] 12-12-2023 09:58-0400 Heart rate 80 /min Dante Casillas DPM Work Phone: [facility] 12-12-2023 09:58-0400 Systolic blood pressure 122 mm[Hg] Dante Casillas DPM Work Phone: [facility] 10-03-2023 15:59-0400 Body height 175.26 cm [facility] 10-03-2023 15:59-0400 Body mass index (BMI) [Ratio] 23.8 kg/m2 [facility] 10-03-2023 15:59-0400 Body weight 73.02 kg [facility] 10-03-2023 15:59-0400 Diastolic blood pressure 72 mm[Hg] [facility] 10-03-2023 15:59-0400 Heart rate 64 /min [facility] 10-03-2023 15:59-0400 Respiratory rate 12 /min [facility] 10-03-2023 15:59-0400 Systolic blood pressure 119 mm[Hg] [facility] 06-14-2023 14:52-0500 Body height 175.26 cm [facility] 06-14-2023 14:52-0500 Body mass index (BMI) [Ratio] 25.2 kg/m2 [facility] 06-14-2023 14:52-0500 Body weight 77.67 kg [facility] 06-14-2023 14:52-0500 Diastolic blood pressure 77 mm[Hg] [facility] 06-14-2023 14:52-0500 Heart rate 66 /min [facility] 06-14-2023 14:52-0500 Systolic blood pressure 128 mm[Hg] [facility] 02-22-2023 13:30-0400 Body height 175.26 cm Flex Ball Other [employer] Other 02-22-2023 13:30-0400 Body mass index (BMI) [Ratio] 27.82 kg/m2 Flex Ball Other [employer] Other 02-22-2023 13:30-0400 Body weight 85.46 kg Flex Ball Other [employer] Other 02-22-2023 13:30-0400 Diastolic blood pressure 70 mm[Hg] Flex Ball Other [employer] Other 02-22-2023 13:30-0400 Respiratory rate 12 /min Flex Ball Other [employer] Other 02-22-2023 13:30-0400 Systolic blood pressure 109 mm[Hg] Flex Ball Other [employer] Other 08-14-2022 12:00-0400 Body height 175.26 cm Flex Ball Other [employer] Other 08-14-2022 12:00-0400 Body mass index (BMI) [Ratio] 28.29 kg/m2 Flex Ball Other [employer] Other 08-14-2022 12:00-0400 Body weight 86.91 kg Flex Ball Other [employer] Other 08-14-2022 12:00-0400 Diastolic blood pressure 80 mm[Hg] Flex Ball Other [employer] Other 08-14-2022 12:00-0400 Respiratory rate 20 /min Flex Ball Other [employer] [facility] [employer] Other 08-14-2022 12:00-0400 Systolic blood pressure 126 mm[Hg] Flex Isaacs Other [employer] Other Encounters Encounter Date Encounter Type Care Provider Facility Start: 07-16-2024 End: 07-16-2024 ambulatory DANTE CASILLAS Not Available Start: 06-12-2024 End: 06-12-2024 ambulatory [facility] Work Phone: Start: 06-12-2024 End: 06-12-2024 Patient encounter procedure [facility] Work Phone: Start: 05-26-2024 Non-patient / Non-visit [facility] [employer] Work Phone: Start: 04-30-2024 End: 04-30-2024 [employer] [...] Not Available Start: 12-13-2023 End: 12-13-2023 ambulatory [facility] Work Phone: Start: 12-13-2023 End: 12-13-2023 Patient encounter procedure [facility] Work Phone: Start: 12-12-2023 End: 12-12-2023 [...] Not Available Start: 12-04-2023 Non-patient / Non-visit [facility] [place] Work Phone: Start: 10-23-2023 Non-patient / Non-visit [facility] [place] Work Phone: Start: 10-03-2023 End: 10-03-2023 ambulatory [facility] Work Phone: Start: 10-03-2023 End: 10-03-2023 Patient encounter procedure [facility] Work Phone: Start: 09-27-2023 Non-patient / Non-visit [facility] Work Phone: Start: 09-26-2023 End: 09-26-2023 ambulatory DANTE CASILLAS Not Available Start: 09-05-2023 Non-patient / [facility] Work Phone: Start: 08-20-2023 End: 09-02-2023 [facility] and [facility] Start: 08-20-2023 Non-patient / Non-visit [facility] [place] Work Phone: Start: 06-14-2023 End: 06-14-2023 ambulatory [facility] Work Phone: Start: 06-14-2023 End: 06-14-2023 Patient encounter procedure [facility] Work Phone: Start: 04-26-2023 End: 04-26-2023 ambulatory Flex Isaacs Other [employer] Other Start: 04-26-2023 Telephone encounter [facility] Start: 04-05-2023 End: 04-05-2023 ambulatory Flex Isaacs Other [employer] Other Start: 04-05-2023 Telephone encounter Flex HIGUERA [facility] Start: 03-19-2023 End: 03-19-2023 ambulatory Flex Isaacs Other [employer] Other Start: 03-19-2023 Telephone encounter Flex HIGUERA [facility] Start: 03-07-2023 End: 03-07-2023 ambulatory Flex Isaacs Other [employer] Other Start: 03-07-2023 Home visit est pt mo d-hi severity 40 minutes Flex Isaacs [facility] Start: 03-06-2023 End: 03-06-2023 ambulatory Flex Isaacs Other [employer] Other Start: 03-06-2023 Telephone encounter Flex HIGUERA [facility] Start: 03-05-2023 End: 03-05-2023 ambulatory Flex Isaacs Other [employer] Other Start: 03-05-2023 Telephone encounter Flex HIGUERA [facility] Start: 02-28-2023 End: 02-28-2023 ambulatory Kamilla Vieira Other [employer] Other Start: 02-28-2023 Nursing evaluation o f patient and report Kamilla Vieira [facility] Start: 02-22-2023 End: 02-22-2023 ambulatory Flex Isaacs Other [employer] Other Start: 02-22-2023 Transitional care [facility] 14 day discharge Flex Isaacs [facility] Start: 02-20-2023 End: 02-20-2023 ambulatory Flex Isaacs Other [employer] Other Start: 02-20-2023 Telephone encounter Flex Isaacs [facility] Start: 02-11-2023 End: 02-11-2023 ambulatory Flex Isaacs Other [employer] Other Start: 02-11-2023 Telephone encounter Flex Isaacs [facility] Start: 01-03-2023 End: 01-03-2023 ambulatory Flex Isaacs Other [employer] Other Start: 01-03-2023 Telephone encounter Flex Isaacs [facility] Start: 01-02-2023 End: 01-02-2023 ambulatory Flex Isaacs Other [employer] Other Start: 01-02-2023 Telephone encounter Flex Isaacs [facility] Start: 01-01-2023 End: 01-01-2023 ambulatory Flex Iasacs Other [employer] Other Start: 01-01-2023 Telephone encounter Flex Isaacs [facility] Start: 12-31-2022 End: 12-31-2022 ambulatory Flex Isaacs Other [employer] Other Start: 12-31-2022 Telephone encounter Flex Isaacs [facility] Start: 12-10-2022 End: 12-10-2022 ambulatory Flex Isaacs Other [employer] Other Start: 12-10-2022 Telephone encounter Flex Isaacs [facility] Start: 12-09-2022 End: 12-09-2022 ambulatory Flex Ball Other [employer] Other Start: 12-09-2022 Telephone encounter [facility] Start: 10-04-2022 End: 10-04-2022 ambulatory Flex Isaacs Other [employer] Other Start: 10-04-2022 Telephone encounter [facility] Start: 08-16-2022 End: 08-16-2022 ambulatory Flex Isaacs Other [employer] Other Start: 08-16-2022 Telephone encounter [facility] Start: 08-15-2022 Telephone encounter [facility] Start: 08-15-2022 End: 08-16-2022 ambulatory FLEX UMAIR [employer] Other Start: 08-14-2022 End: 08-14-2022 ambulatory Flex Isaacs Other [employer] Other Start: 08-14-2022 Patient encounter procedure [facility] Start: 05-20-2019 Adult health examination Solomon Isaacs Other [employer] Other Procedures Date Procedure Procedure Detail Performing Clinician Start: 07-03-2017 Diabetes mellitus screening Flex Isaacs Other Start: 11-15-2015 Screening for malign ant neoplasm of colon Flex Isaacs Other Screening for malign ant neoplasm of prostate [facility] Other Plan of Treatment Date Care Activity Detail Author Start: 07-16-2024 End: 07-16-2024 Patient encounter procedure 07/16/2024 9:10 AM EDT Procedure Visit [facility] [address] [facility] [address] [place] [address] Dante Casillas DPM [address] [facility] [address] [place] [address] [facility] Start: 04-30-2024 End: 04-30-2024 Patient encounter procedure 04/30/2024 9:00 AM EST Procedure [facility] [address] [address] Dante Casillas DPM [address] [address] Pain due to onychomycosis of toenails of both feet (Primary Dx); Venous insufficiency; Xerosis cutis [facility] Comment on above: Pain due to onychomy cosis of toenails of both feet (Primary Dx); Venous insufficiency; Xerosis cutis Start: 02-27-2024 End: 02-27-2024 Patient encounter procedure 02/27/2024 9:50 AM EST Procedure [facility] [address] [phone] Dante Casillas DPM [address] [address] [facility] Start: 12-22-2023 Influenza vaccination Influenza Vacc ine (#1) [facility] Start: 12-12-2023 End: 12-12-2023 Patient encounter procedure 12/12/2023 10:00 AM EDT Procedure [facility] [address] [phone] Dante Casillas DPM [address] [address] Onychomycosis (Primary Dx); Toe pain, bilateral; Venous insufficiency [facility] Comment on above: Onychomycosis (Prima ry Dx); Toe pain, bilateral; Venous insufficiency Start: 07-03-2018 Pneumococcal Vaccine : 65+ Years (2 of 2 - PPSV23 or PCV20) Pneumococcal Vaccine: 65+ Years (2 of 2 - PPSV23 or PCV20) [facility] Start: 02-15-1941 Medicare Annual Well ness (AWV) Medicare Annual Wellness (AWV) [facility] XR Chest 2 Views [facility] Immunizations Immunization Date Immunization Notes Care Provider Brando higgins 02-18-2024 influenza virus vaccine, unspecified formulation Dante Casillas DPM Work Phone: [facility] 02-28-2023 influenza, high dose seasonal, preservative-free Flex Isaacs Other [facility] [employer] Other 02-28-2023 influenza virus vaccine, unspecified formulation [facility] 04-11-2022 influenza, injectabl e, quadrivalent, preservative free Flex Isaacs Other [facility] 02-23-2021 COVID-19 Vaccine Moderna - Documentation Purposes Only Flex Isaacs Other [facility] 06-17-2020 COVID-19 Vaccine Moderna - Documentation Purposes Only Flex Isaacs Other [facility] 05-20-2020 COVID-19 Vaccine Moderna - Documentation Purposes Only Flex Isaacs Other [facility] 07-03-2017 pneumococcal conjuga te vaccine, 13 valent Flex Isaacs Other [facility] 07-03-2017 pneumococcal Conjuga te, unspecified formulation; Translations: [Need for prophylactic vaccination against Streptococcus pneumoniae (pneumococcus)] Flex Isaacs Other [facility] [employer] Other 03-07-2017 influenza virus vaccine, split virus (incl. purified surface antigen) Flex Isaacs Other [facility] [employer] Other 03-07-2017 influenza virus vaccine, unspecified formulation [facility] 03-28-2016 influenza virus vaccine, split virus (incl. purified surface antigen) Flex Isaacs Other [facility] [facility] [employer] Other 03-28-2016 influenza virus vaccine, unspecified formulation [facility] 03-08-2015 influenza virus vaccine, split virus (incl. purified surface antigen) Flex Isaacs Other [facility] [employer] Other 03-08-2015 influenza virus vaccine, unspecified formulation [facility] 04-09-2013 tetanus and diphther ia toxoids, adsorbed, preservative free, for adult use (5 Lf of tetanus toxoid and 2 Lf of diphtheria toxoid) Flex Isaacs Other [facility] 01-28-2013 tetanus and diphther ia toxoids, adsorbed, preservative free, for adult use (5 Lf of tetanus toxoid and 2 Lf of diphtheria toxoid) Flex Isaacs Other [facility] 03-29-2010 pneumococcal polysaccharide vaccine, 23 valent Flex Isaacs Other [facility] Payers Date Payer Category Payer Unknown [id number] 2018 Private Health Insurance [id number] 2018 Unknown [id number] 2004 Medicare [id number] 1959 Medicare [id number] 1938 Unknown [id number] 1938 Unknown [id number] 1938 Unknown [id number] 1938 Unknown [id number] 1938 Unknown [id number] 1938 Unknown [id number] Private Health Insurance [employer] [id number] Social History Date Type Detail Facility Start: 09-26-2023 End: 12-12-2023 Sex Assigned At [facility] [employer] Other Start: 1940 Sex Assigned At Male [facility] Start: 12-13-2023 End: 12-13-2023 Tobacco smoking status NHIS Never smoked tobacco (finding) [facility] Start: 10-19-2022 Tobacco smoking stat [facility] Ex-smoker [facility] History of tobacco use Current smoker [facility] History of tobacco use Cigarette Smoker N [facility] Start: 10-19-2022 Tobacco use and exposure Smokeless tobacco non-user [facility] Start: 09-26-2023 End: 12-12-2023 Alcoholic beverage intake Lifetime non-drinker (finding) [facility] Start: 09-26-2023 End: 12-12-2023 History of Social function [facility] Start: 06-20-2023 Alcohol Comment caffeine intak e: 1-2 cups perday [facility] Healthcare Start: 1940 Sex assigned at Not on file N [facility] Start: 06-12-2024 Sex Male (finding) [facility] Clinical Notes 08-14-2022 to 04-30-2024 Dante [...] Insecurity: No Food Insecurity (08/21/2023) Received from [facility] Hunger Vital Sign Worried About Running Out of Food in the Last Year: Never true Ran Out of Food in the Last Year: Never true Transportation Needs: No Transportation Needs (08/21/2023) Received from [facility] PRAPARE - Transportation Lack of Transportation (Medical): No Lack of Transportation (Non-Medical): No Physical Activity: Not on file Stress: Not on file Social Connections: Not on file Intimate Partner Violence: Not on file Housing Stability: Low Risk (08/21/2023) Received from [facility] Housing Stability Vital Sign Unable to [...] Dante Casillas DPM documented in this encounter [facility] 12-12-2023 History of Presen t illness Narrative [...] he had healed ulcerations and currently in [facility] Allergies: No Known Allergies Past Medical History: [...] Insecurity: No Food Insecurity (08/21/2023) Received from [facility] Hunger Vital Sign Worried About Running Out of Food in the Last Year: Never true Ran Out of Food in the Last Year: Never true Transportation Needs: No Transportation Needs (08/21/2023) Received from [facility] PRAPARE - Transportation Lack of Transportation (Medical): No Lack of Transportation (Non-Medical): No Physical Activity: Not on file Stress: Not on file Social Connections: Not on file Intimate Partner Violence: Not on file Housing Stability: Low Risk (08/21/2023) Received from [facility] Housing Stability Vital Sign Unable [...] Dante Casillas DPM documented in this encounter [facility] 04-26-2023 Evaluation note Encounter Date Diagnosis Assessment Notes Apr, Acute deep vein thrombosis (DVT) of right peroneal vein (ICD-10 - I82.451) [employer] Other 11-16-2023 Evaluation note* Encounter Date Diagnosis [...] for 6months. Check DDimer and venous US. [employer] Other 11-14-2023 Evaluation note* Encounter Date Diagnosis Assessment Notes Treatment Notes Treatment Clinical Notes Feb, Closed fracture of one rib of right side with routine healing, subsequent encounter (ICD-10 - S22.31XD) [employer] Other 11-09-2023 Evaluation note* Encounter Date Diagnosis Assessment Notes Treatment Notes Treatment Clinical Notes Feb, Need for vaccination (ICD-10 - Z23) [employer] Other 11-03-2023 Evaluation note* Encounter Date Diagnosis [...] - E44.0) Protein/calorie supplements daily. Monitor weight. [employer] Other 08-21-2023 Evaluation note* Encounter Date Diagnosis Assessment Notes Treatment Notes Treatment Clinical Notes Nov, Acute deep vein thrombosis (DVT) of left peroneal vein (ICD-10 - I82.452) Nov, Pressure injury of deep tissue of sacral region (ICD-10 - L89.156) Nov, Skin ulcer of heel, limited to breakdown of skin, unspecified laterality (ICD-10 - L97.401) [employer] Other 04-26-2023 NotePROCEDURE: XR HAND MEEK MIN [...] authenticated by: ROHINI PEARSON Date: 2022-08-15 11:57[facility]04-25-2023 Evaluation note* Encounter Date Diagnosis Assessment Notes [...] Jul, Fatigue, unspecified type (ICD-10 - R53.83) [employer] Other Evaluation [facility]No [facility] Other Evaluation note* Diagnosis Onset Date Resolution Status Anemia acute Chronic venous insufficiency acute Lumbar spondylosis acute Pharyngoesophageal dysphagia acute Pulmonary hypertension acute Right rib fracture acute [facility] Work Phone: Evaluation note* Diagnosis Onset Date Resolution Status Chronic bronchitis acute Chronic venous insufficiency acute HAP (hospital-acquired pneumonia) acute Hx of small bowel obstruction acute Lumbar spondylosis acute Pharyngoesophageal dysphagia acute Pulmonary hypertension acute [facility] Work Phone: Evaluation note* Diagnosis Onset Date [...] acute Medicare annual wellness visit, subsequent noneactive [facility] Work Phone: Evaluation note* Diagnosis Onychomycosis- Primary Dermatophytosis of nail Toe pain, bilateral Venous insufficiency Unspecified venous (peripheral) insufficiency documented in this encounter [facility] HealthcareEvaluation note* Diagnosis Pain due to onychomycosis of toenails of both feet- Primary Venous insufficiency Unspecified venous (peripheral) insufficiency Xerosis cutis Other specified disease of sebaceous glands documented in this encounter [facility] HealthcareEvaluation note* Diagnosis Onset Date Resolution Status Admit Date Anemia acute June 12, 2024 2:19pm Benign p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 acute June 12, 025 2:19pm Chronic bronchitis acute 2024 2:19pm Chronic venous insufficiency acute June 12, 2024 2:19pm Lumbar spondylosis acute 2024 2:19pm Pulmonary hypertension acute Fe 2024 2:19pm [facility] Work Phone: History general Narrative - Reported* Type Description Date Medical History Diarrhea Medical History Chronic venous insufficiency Medical History 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 Medical History Seasonal allergic rhinitis due t o pollen Surgical History CHOLECYSTECTOMY Surgical History APPENDECTOMY Surgical History TONSILLECTOMY Surgical History LEFT KNEE ARTHROSCOPY Hospitalization History SEE SURGICAL HX [employer] Other [employer] general Narrative - Reported* Type Description Date [...] LEFT KNEE ARTHROSCOPY Hospitalization History SEE SURGICAL [employer] Other History general Narrative - Reported* Type [...] LEFT KNEE ARTHROSCOPY Hospitalization History SEE SURGICAL [employer] Other History general Narrative - Reported* Type [...] 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 Hospitalization History SEE SURGICAL [employer] Other [employer] general Narrative - Reported* Type Description Date [...] 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 Hospitalization History SEE SURGICAL [employer] Other Summary Purpose Family History No Family [...] and content) DATE CREATED AUTHOR 08/19/2022 [facility] DATE CREATED AUTHOR AUTHOR'S ORGANIZ ATION 10/12/2023 [facility] DATE CREATED AUTHOR AUTHOR'S ORGANIZ ATION 07/17/2024 [facility] d[facility] Specialists EPIC Care Teams (unrecognized [...] December 13, 2023 End: December 13, 2023 Mold Dresser Relationship Specialty Start Date End Date Flex Isaacs MD [address] [place] [id number] PCP - General Internal Medicine 04/11/23 Sahra Mishra MD [address] [place] [address] PCP - ACO Reach 06/21/23 Mold Dresser Relationship Specialty Start Date End Date Flex Isaacs MD [address] [place] [id number] PCP - General Internal Medicine 04/11/23 Sahra Mishra MD [address] [place] [address] PCP - ACO Reach 06/21/23 Mold Dresser Relationship Specialty Start Date End Date Flex Isaacs MD [address] [place] [address] PCP - General Internal Medicine 04/11/23 Sahra Mishra MD [address] [place] [address] PCP - ACO Reach 06/21/23 Mold Dresser Relationship Specialty Start Date End Date Flex Isaacs MD [address] [facility] [place] [address] PCP - General Internal Medicine 04/11/23 Sahra Mishra MD [address] [place] [address] PCP - ACO Reach 06/21/23 Team Status: [...] BE BASED ON THE PRIMARY CLINICAL RECORDS. [facility]. provides no warranty or guarantee of the accuracy or completeness of information in this document.
--- NOTE | 2024-07-18 13:54 | PC.NURSE ---
Dr. Pichardo notified of rectal temp 95, warm blankets applied to patient
[2024-07-18 15:44] LABS: Lactate/Lactic Acid 1.2 mmol/L (0.4-2.0)
[2024-07-18] MEDS: CEFTRIAXONE 1,000 MG in 0.9 % SODIUM CHLORIDE 50 ML 100 MG IV (16:23)
[2024-07-18] MEDS: 0.9 % SODIUM CHLORIDE 250 ML 10 ML IV (16:23)
[2024-07-18] MEDS: OSELTAMIVIR PHOSPHATE 75 MG CAPSULE PO (16:24)
[2024-07-18] MEDS: DEXAMETHASONE SOD PHOS 4 MG/ML VIAL 6 MG IV (16:24)
[2024-07-18] MEDS: FAMOTIDINE 20 MG TABLET PO (16:24)
[2024-07-18] MEDS: LEVOFLOXACIN IN DEXTROSE 5 % 750 MG/150 ML PREMIX 100 MG IV (17:33)
--- NOTE | 2024-07-18 18:49 | P.HP_ITS ---
HPI H&P: HPI History of Present Illness Chief complaint: WEAKNESS POLYFUNCTIONAL DECLINE COVID FLU B Narrative: Patient has had increasing weakness he states for 3 weeks, family were concerned over the last few days, in ER found to have acute viral illness related to influenza B and COVID, urine consistent with acute UTI, patient admitted for workup and treatment of same When I saw patient up in the medical surgical floor, resting comfortably in bed watching the guardians, did have cough during the evaluation, describes shortness of breath with any activity Opioid HPI Opioid Management Most Recent Pain and Opioid Data: Last Pain Scale 5 02/20/24 02:01 02/20/24 Last Pain Intensity 2 02/17/24 14:24 02/17/24 Last Pain Assessment 07/18/24 19:00 Last ORT Total Score 0 07/18/24 13:13 07/18/24 Last ORT Risk Category Low Risk 07/18/24 13:13 07/18/24 Review of Systems ROS Status of ROS 10 or more systems reviewed and unremark able except as noted in history and below PFSH PFSH Medical History (Updated 07/18/24 @ 12:08 by Candelario Summers) BPH (benign prostatic hyperplasia) ?N40.0 - Benign prostatic hyperplasia without lower urinary tract symptoms (ICD-10) Peripheral edema ?R60.9 - Edema, unspecified (ICD-10) DVT (deep venous thrombosis) ?I82.409 - Acute embolism and thrombosis of unspecified deep veins of unspecified lower extremity (ICD-10) Old lacunar stroke without late effect ?Z86.73 - Personal history of transient ischemic attack (TIA), and cerebral infarction without residual deficits (ICD-10) Low back pain ?M54.50 - Low back pain, unspecified (ICD-10) Stage II pressure ulcer ?L89.92 - Pressure ulcer of unspecified site, stage 2 (ICD-10) Head injury ?S09.90XA - Unspecified injury of head, initial encounter (ICD-10) Elevated bilirubin ?R17 - Unspecified jaundice (ICD-10) Decubitus ulcer of ankle, stage 2 ?L89.502 - Pressure ulcer of unspecified ankle, stage 2 (ICD-10) Abrasion of scalp ?S00.01XA - Abrasion of scalp, initial encounter (ICD-10) Surgical History (Updated 08/20/23 @ 19:06 by Ruthann Delatorre) History of cholecystectomy ?Z90.49 - Acquired absence of other specified parts of digestive tract (ICD- 10) Hx of appendectomy ?Z90.49 - Acquired absence of other specified parts of digestive tract (ICD- 10) History of partial replacement of left hip joint using bipolar prosthesis ?Z96.642 - Presence of left artificial hip joint (ICD-10) History of knee replacement ?Z96.659 - Presence of unspecified artificial knee joint (ICD-10) Social History Within the past year, how often did you have a drink containing alcohol: monthly or less Smoking status: Former smoker Highest level of school completed/degree received: some college, no degree Little interest or pleasure in doing things: not at all Feeling down, depressed, or hopeless: not at all Meds Home Medications and Allergies Home Medications ?Medication ?Instructions ?Recorded ?Confirmed ?Type acetaminophen 325 mg tablet 650 mg (2 x 325 mg) PO Q6H PRN 03/05/23 07/18/24 Rx Moderate pain #90 tabs aspirin 81 mg capsule 81 mg PO DAILY 02/17/24 07/18/24 History tamsulosin 0.4 mg capsule 0.4 mg PO Q24H 02/17/24 07/18/24 History sennosides 8.6 mg tablet (senna) 8.6 mg PO DAILY 07/18/24 07/18/24 History Allergies Allergy/AdvReac Type Severity Reaction Status Date / Time No Known Drug Allergies Allergy Verified 02/17/24 08:21 Exam Constitutional Vital Signs, click to edit/add: Last Vital Signs Temp 96.8 F L 07/18/24 15:26 Pulse 59 L 07/18/24 18:06 Resp 16 07/18/24 13:54 BP 122/65 07/18/24 13:54 Pulse Ox 97 07/18/24 16:13 O2 Del Method Room Air 07/18/24 16:13 Documenting provider has reviewed patient's vital signs: yes Common normals: no apparent distress Respiratory Common normals: normal respiratory effort and no use of accessory muscles Auscultation: rhonchi Cardio Common normals: regular rate and regular rhythm GI Common normals: Normal to inspection, nondistended, normoactive bowel sounds present, soft to palpation and non-tender Extremity Common normals: abnormal to inspection (1+ edema which is chronic for him) Results Labs Labs: Short CBC 07/18/24 Range/Units 11:10 WBC 3.4 L (4.0-11.0) 10^3/uL Hgb 11.0 L (14.0-18.0) g/dL Hct 33.1 L (42.0-54.0) % Plt Count 124 L (150-450) 10^3/uL BMP 07/18/24 11:10 Sodium 139 Potassium 3.9 Chloride 102 Carbon Dioxide 31.9 BUN 31.0 H Creatinine 0.81 Glucose 109 H Calcium 8.8 Liver Function 07/18/24 Range/Units 11:10 Total Bilirubin 0.9 (0.2-1.0) mg/dL AST 70 H (15-37) U/L ALT 54 (16-63) U/L Alkaline Phosphatase 113 (46-116) U/L Albumin 2.7 L (3.4-5.0) g/dL Urine 07/18/24 Range/Units 11:35 Urine Color Yellow (YELLOW) Urine Clarity Clear (CLEAR) Urine pH 6.0 (5.0-9.0) Ur Specific [place] 1.015 (1.005-1.025) Urine Protein Negative (NEG/TRACE) mg/dL Urine Glucose (UA) Negative (NEGATIVE) mg/dL Assessment and Plan Assessment and Plan (1) Influenza B: (2) COVID-19: (3) Dehydration: (4) Acute kidney injury: (5) BPH (benign prostatic hyperplasia): Qualifiers: Lower urinary tract symptom presence: unspecified whether lower urinary tract symptoms present Qualified Code(s): N40.0 - Benign prostatic hyperplasia without lower urinary tract symptoms Plan Admission findings: Hypothermia, bradycardia, respiratory distress, uncontrolled hypertension, neutropenia, thrombocytopenia, elevated liver function test secondary to acute COVID-19 complicated by influenza B and an acute UTI, meeting criteria for sepsis Acute [id number] protocol not hypoxic so unable to give remdesivir and does not have Paxlovid available Acute influenza B with bibasilar pneumonia-Tamiflu L Acute UTI-antibiotics for the above Acute elevation in BUN consistent with dehydration-with COVID-19 preferring to keep people the dry side we will just repeat labs in a.m. Hypomagnesemia-supplement Iron deficiency anemia-monitor daily Neutropenia and thrombocytopenia-monitor daily, likely related to viral infection Hyperproteinemia-workup as an outpatient Low free T3-with TSH normal we will just monitor Moderate protein calorie malnutrition-diet management Admission status: Patient admitted with sepsis secondary to influenza B with resulting bilateral lower lobe pneumonia complicated by acute COVID-19 and acute UTI, medically necessary treatment will span 2 midnights. Inpatient status
[2024-07-18] MEDS: BUDESONIDE 0.5 MG/2 ML AMPULE NEB IH (20:13)
[2024-07-18] MEDS: MAGNESIUM OXIDE 400 MG TABLET PO (21:55)
[2024-07-18] MEDS: CETIRIZINE HCL 10 MG TABLET 20 MG PO (21:55)
[2024-07-18] MEDS: ENSURE HP 237 ML LIQUID PO (21:56)
[2024-07-19] VITALS (21 sets, daily range): BP systolic 136–161; BP diastolic 69–80; PULSE 39–66; TEMP 36.1–36.4; O2SAT 94–96
[2024-07-19] MEDS: ACETAMINOPHEN 500 MG TABLET 1000 MG PO (01:42)
[2024-07-19 06:28] LABS: Basophils Percent Auto 0.3 % (0.2-2.0); Eosinophils Percent Auto 0.6 % (0.9-7.0); Hematocrit 32.5 % (42.0-54.0); Hemoglobin 10.6 g/dL (14.0-18.0); Lymphocytes Absolute Auto 0.8 10^3/uL (1.2-3.8); Lymphocytes Percent Auto 24.4 % (20.5-60.0); Mean Corpuscular HGB Conc 32.6 g/dL (29.9-35.2); Monocytes Absolute Auto 0.2 10^3/uL (0.3-0.8); Monocytes Percent Auto 6.4 % (1.7-12.0); Neutrophils Absolute Auto 2.2 10^3/uL (1.4-6.5); Neutrophils Percent Auto 68.3 % (43.0-75.0); Platelet Count 115 10^3/uL (150-450); Red Blood Count 3.42 10^6/uL (4.70-6.10); White Blood Count 3.3 10^3/uL (4.0-11.0)
[2024-07-19 06:58] LABS: Alanine Aminotransferase 46 U/L (16-63); Albumin Globulin Ratio 0.4; Albumin Level 2.3 g/dL (3.4-5.0); Alkaline Phosphatase 108 U/L (46-116); Anion Gap 7.6; Aspartate Amino Transferase 59 U/L (15-37); BUN Creatinine Ratio 32.5; Bilirubin Total 0.4 mg/dL (0.2-1.0); Calcium 8.8 mg/dL (8.5-10.1); Carbon Dioxide 30.6 mmol/L (21.0-32.0); Chloride 103 mmol/L (98-107); Estimated GFR (African America >60 (>=60 mL/min/1.73m^2); Estimated GFR (Non-African Ame >60 (>=60 mL/min/1.73m^2); Globulin 5.8 g/dL; Glucose 86 mg/dL (74-106); Magnesium 1.8 mg/dL (1.8-2.4); Potassium 4.2 mmol/L (3.5-5.1); Sodium 137 mmol/L (136-145); Total Protein 8.1 g/dL (6.4-8.2); Troponin I High Sensitivity 19.2 pg/mL (4.0-76.1)
[2024-07-19] MEDS: BUDESONIDE 0.5 MG/2 ML AMPULE NEB IH ×2 (09:21→21:55)
[2024-07-19] MEDS: ASPIRIN 81 MG TAB.CHEW PO (09:24)
[2024-07-19] MEDS: FAMOTIDINE 20 MG TABLET PO (09:24)
[2024-07-19] MEDS: SENNOSIDES 8.6 MG TABLET PO (09:24)
[2024-07-19] MEDS: MAGNESIUM OXIDE 400 MG TABLET PO ×2 (09:24→21:08)
[2024-07-19] MEDS: TAMSULOSIN HCL 0.4 MG CAPSULE PO (09:24)
[2024-07-19] MEDS: ENSURE HP 237 ML LIQUID PO ×2 (09:24→21:08)
[2024-07-19] MEDS: DEXAMETHASONE SOD PHOS 4 MG/ML VIAL 6 MG IV (09:24)
[2024-07-19] MEDS: OSELTAMIVIR PHOSPHATE 30 MG CAPSULE PO ×2 (09:24→21:08)
--- NOTE | 2024-07-19 09:53 | P.PN_ITS ---
Progress Note: Subjective Subjective Interval history: Patient does feel little bit better today, still with significant cough and has not been ambulating to know if he is dyspneic Exam Constitutional Vital Signs, click to edit/add: Last Vital Signs Temp 96.9 F L 07/19/24 07:40 Pulse 54 L 07/19/24 09:20 Resp 18 07/19/24 07:40 BP 146/70 H 07/19/24 07:40 Pulse Ox 96 07/19/24 09:20 O2 Del Method Room Air 07/19/24 09:20 Documenting provider has reviewed patient's vital signs: yes Common normals: no apparent distress Respiratory Common normals: normal respiratory effort and no retractions; not clear to ascultation bilaterally Auscultation: rhonchi Cardio Common normals: regular rate and regular rhythm Extremity Common normals: abnormal to inspection (Trace edema but improved with compression hose) Progress Note: Objective Labs Labs: Short CBC 07/18/24 07/19/24 Range/Units 11:10 06:16 WBC 3.4 L 3.3 L (4.0-11.0) 10^3/uL Hgb 11.0 L 10.6 L (14.0-18.0) g/dL Hct 33.1 L 32.5 L (42.0-54.0) % Plt Count 124 L 115 L (150-450) 10^3/uL BMP 07/18/24 07/19/24 11:10 06:16 Sodium 139 137 Potassium 3.9 4.2 Chloride 102 103 Carbon Dioxide 31.9 30.6 BUN 31.0 H 25.0 H Creatinine 0.81 0.77 Glucose 109 H 86 Calcium 8.8 8.8 Liver Function 07/18/24 07/19/24 Range/Units 11:10 06:16 Total Bilirubin 0.9 0.4 (0.2-1.0) mg/dL AST 70 H 59 H (15-37) U/L ALT 54 46 (16-63) U/L Alkaline Phosphatase 113 108 (46-116) U/L Albumin 2.7 L 2.3 L (3.4-5.0) g/dL Urine 07/18/24 Range/Units 11:35 Urine Color Yellow (YELLOW) Urine Clarity Clear (CLEAR) Urine pH 6.0 (5.0-9.0) Ur Specific [place] 1.015 (1.005-1.025) Urine Protein Negative (NEG/TRACE) mg/dL Urine Glucose (UA) Negative (NEGATIVE) mg/dL Progress Note: A&P Assessment and Plan (1) Influenza B: (2) COVID-19: (3) Dehydration: (4) Acute kidney injury: (5) BPH (benign prostatic hyperplasia): Qualifiers: Lower urinary tract symptom presence: unspecified whether lower urinary tract symptoms present Qualified Code(s): N40.0 - Benign prostatic hyperplasia without lower urinary tract symptoms Plan Admission findings: Hypothermia, bradycardia, respiratory distress, uncontrolled hypertension, neutropenia, thrombocytopenia, elevated liver function test secondary to acute COVID-19 complicated by influenza B and an acute UTI, meeting criteria for sepsis Acute [id number] protocol not hypoxic so unable to give remdesivir and does not have Paxlovid available-slowly improving, continue with current treatment plan Acute influenza B with bibasilar pneumonia-Tamiflu, slowly improving, continue with current treatment plan Acute UTI-antibiotics for the above, culture pending Acute elevation in BUN consistent with dehydration-with COVID-19 preferring to keep people the dry side we will just repeat labs in a.m. improving continue to monitor Sxzyupjvqlosme-vjaslbfcnp-zaisqvdj to baseline Elevated liver function test-improved Bradycardia at times-continue to monitor, consider cardiology consult, not on anything that would slow him down but asymptomatic Iron deficiency anemia-monitor daily, down slightly today Neutropenia and thrombocytopenia-monitor daily, likely related to viral infection-both are down somewhat today continue to follow Hyperproteinemia-workup as an outpatient Low free T3-with TSH normal we will just monitor Moderate protein calorie malnutrition-diet management Admission status: Patient admitted with sepsis secondary to influenza B with resulting bilateral lower lobe pneumonia complicated by acute COVID-19 and acute UTI, medically necessary treatment will span 2 midnights. Inpatient status ? Urinary Catheter Management Urinary Catheter Management Pure Wick: Cath placed during this visit: yes Urethral indwelling: Yes Reason for continuing: measure accurate output Insertion date: 07/18/24 Insertion time: 21:00
[2024-07-19] MEDS: CEFTRIAXONE 1,000 MG in 0.9 % SODIUM CHLORIDE 50 ML 100 MG IV (15:58)
[2024-07-19] MEDS: LEVOFLOXACIN IN DEXTROSE 5 % 750 MG/150 ML PREMIX 100 MG IV (16:37)
--- NOTE | 2024-07-19 16:44 | PC.NURSE ---
Dr. Pichardo notified of dipping heart rate into the 30's, patient denies dizziness
[2024-07-19] MEDS: CETIRIZINE HCL 10 MG TABLET 20 MG PO (21:08)
[2024-07-20] VITALS (19 sets, daily range): BP systolic 77–148; BP diastolic 50–72; PULSE 52–89; TEMP 36.1–36.6; O2SAT 92–96
--- NOTE | 2024-07-20 06:01 | P.PN_ITS ---
Progress Note: Subjective Subjective Interval history: Cough persisting but overall feels improved Exam Constitutional Vital Signs, click to edit/add: Last Vital Signs Temp 97.5 F L 07/20/24 04:00 Pulse 54 L 07/20/24 05:52 Resp 18 07/20/24 04:00 BP 148/72 H 07/20/24 04:00 Pulse Ox 94 L 07/20/24 04:00 O2 Del Method Room Air 07/20/24 04:00 Documenting provider has reviewed patient's vital signs: yes Common normals: no apparent distress Respiratory Common normals: normal respiratory effort and no retractions; not clear to ascultation bilaterally Auscultation: rhonchi (Better air exchange today) Cardio Common normals: regular rate, regular rhythm and no murmurs Extremity Common normals: abnormal to inspection (Improved edema) Progress Note: Objective Labs Labs: Short CBC 07/19/24 Range/Units 06:16 WBC 3.3 L (4.0-11.0) 10^3/uL Hgb 10.6 L (14.0-18.0) g/dL Hct 32.5 L (42.0-54.0) % Plt Count 115 L (150-450) 10^3/uL BMP 07/19/24 06:16 Sodium 137 Potassium 4.2 Chloride 103 Carbon Dioxide 30.6 BUN 25.0 H Creatinine 0.77 Glucose 86 Calcium 8.8 Liver Function 07/19/24 Range/Units 06:16 Total Bilirubin 0.4 (0.2-1.0) mg/dL AST 59 H (15-37) U/L ALT 46 (16-63) U/L Alkaline Phosphatase 108 (46-116) U/L Albumin 2.3 L (3.4-5.0) g/dL Progress Note: A&P Assessment and Plan (1) Influenza B: (2) COVID-19: (3) Dehydration: (4) Acute kidney injury: (5) BPH (benign prostatic hyperplasia): Qualifiers: Lower urinary tract symptom presence: unspecified whether lower urinary tract symptoms present Qualified Code(s): N40.0 - Benign prostatic hyperplasia without lower urinary tract symptoms Plan Admission findings: Hypothermia, bradycardia, respiratory distress, uncontrolled hypertension, neutropenia, thrombocytopenia, elevated liver function test secondary to acute COVID-19 complicated by influenza B and an acute UTI, meeting criteria for sepsis Acute [id number] continues to improve, continue with current treatment plan Acute influenza B with bibasilar pneumonia-cough improving, continue with current treatment plan Acute UTI-awaiting culture Acute elevation in BUN consistent with dehydration-with COVID-19 preferring to keep people the dry side we will just repeat labs in a.m. i -continues to improve Tvggannujmvjib-dgxzdjexro-melxidgb to baseline Elevated liver function test-continues to improve Bradycardia at times-continue to monitor, consider cardiology consult, not on anything that would slow him down but asymptomatic-placed order for Holter at discharge Iron deficiency anemia-monitor daily, down slightly today Neutropenia and thrombocytopenia-likely related to the above-improving Hyperproteinemia-workup as an outpatient Low free T3-with TSH normal we will just monitor Moderate protein calorie malnutrition-diet management Admission status: Patient admitted with sepsis secondary to influenza B with resulting bilateral lower lobe pneumonia complicated by acute COVID-19 and acute UTI, medically necessary treatment will span 2 midnights. Inpatient status ? Urinary Catheter Management Urinary Catheter Management Pure Wick: Cath placed during this visit: yes Urethral indwelling: Yes Reason for continuing: acute urinary retention Insertion date: 07/19/24 Insertion time: 22:30
[2024-07-20 06:16] LABS: Basophils Percent Auto 0.2 % (0.2-2.0); Eosinophils Absolute Auto 0.1 10^3/uL (0.0-0.7); Eosinophils Percent Auto 1.3 % (0.9-7.0); Hematocrit 33.6 % (42.0-54.0); Hemoglobin 11.4 g/dL (14.0-18.0); Immature Granulocytes Abs Auto 0.02 10^3/uL (0.00-0.03); Immature Granulocytes Pct Auto 0.4 % (0.0-0.5); Lymphocytes Absolute Auto 1.2 10^3/uL (1.2-3.8); Lymphocytes Percent Auto 26.3 % (20.5-60.0); Mean Corpuscular HGB Conc 33.9 g/dL (29.9-35.2); Mean Corpuscular Volume 94.4 fL (80.0-94.0); Mean Platelet Volume 10.3 fL (9.5-13.5); Monocytes Absolute Auto 0.4 10^3/uL (0.3-0.8); Monocytes Percent Auto 8.3 % (1.7-12.0); Neutrophils Percent Auto 63.5 % (43.0-75.0); Platelet Count 144 10^3/uL (150-450); Red Blood Count 3.56 10^6/uL (4.70-6.10); White Blood Count 4.7 10^3/uL (4.0-11.0)
[2024-07-20 06:31] LABS: Alanine Aminotransferase 45 U/L (16-63); Albumin Globulin Ratio 0.4; Albumin Level 2.5 g/dL (3.4-5.0); Alkaline Phosphatase 112 U/L (46-116); Aspartate Amino Transferase 52 U/L (15-37); BUN Creatinine Ratio 32.9; Bilirubin Total 0.5 mg/dL (0.2-1.0); Calcium 8.9 mg/dL (8.5-10.1); Carbon Dioxide 32.9 mmol/L (21.0-32.0); Chloride 103 mmol/L (98-107); Estimated GFR (African America >60 (>=60 mL/min/1.73m^2); Estimated GFR (Non-African Ame >60 (>=60 mL/min/1.73m^2); Glucose 85 mg/dL (74-106); Potassium 3.9 mmol/L (3.5-5.1); Sodium 139 mmol/L (136-145); Total Protein 8.5 g/dL (6.4-8.2)
--- NOTE | 2024-07-20 08:12 | CM.NOTE ---
Rounds made with Dr. Pichardo, pt continues with c/o weakness this morning. PT and OT will evaluate pt for discharge planning.
--- NOTE | 2024-07-20 08:21 | CM.NOTE ---
Medicare Outpatient Observation Notice discussed with pt, pt verbalizes understanding and signs paper. Original given to pt and copy placed in pt's chart.
[2024-07-20] MEDS: BUDESONIDE 0.5 MG/2 ML AMPULE NEB IH ×2 (09:48→20:00)
[2024-07-20] MEDS: SENNOSIDES 8.6 MG TABLET PO (10:31)
[2024-07-20] MEDS: TAMSULOSIN HCL 0.4 MG CAPSULE PO (10:31)
[2024-07-20] MEDS: MAGNESIUM OXIDE 400 MG TABLET PO ×2 (10:31→21:24)
[2024-07-20] MEDS: FAMOTIDINE 20 MG TABLET PO (10:31)
[2024-07-20] MEDS: ASPIRIN 81 MG TAB.CHEW PO (10:31)
[2024-07-20] MEDS: ENSURE HP 237 ML LIQUID PO ×2 (10:32→21:25)
[2024-07-20] MEDS: DEXAMETHASONE SOD PHOS 4 MG/ML VIAL 6 MG IV (10:32)
[2024-07-20] MEDS: OSELTAMIVIR PHOSPHATE 30 MG CAPSULE PO ×2 (10:38→21:24)
--- NOTE | 2024-07-20 10:58 | SWNOTE1 ---
Important Message from Medicare reviewed and discussed with patient. Pt. verbalized understanding and signed the form. Original given to patient and copy placed in patient?s chart.
--- NOTE | 2024-07-20 10:58 | SWNOTE1 ---
SW met with pt to discuss dc needs. Pt lives at home alone and uses a rollator. SW let pt know that rehab is recommended for strengthening. Pt is agreeable and discussed this with his family. Pt voiced he has been to [facility] and [facility]. [facility] is his first choice and [facility] second. SW to send referral. Referral sent to [facility]. Referral included face sheet, ED note, H&P, provider notes, case management report, nursing notes, diagnostic imaging, med list, and PT notes.
--- NOTE | 2024-07-20 12:01 | SWNOTE1 ---
SW did receive call from [facility], SW updated with discharge plan.
--- NOTE | 2024-07-20 12:32 | SWNOTE1 ---
SW received call from Tatianna at [facility] and they are able to accept once pt medically stable for discharge.
--- NOTE | 2024-07-20 13:54 | SWNOTE1 ---
SW completed HENS online.
[2024-07-20] MEDS: CEFTRIAXONE 1,000 MG in 0.9 % SODIUM CHLORIDE 50 ML 100 MG IV (15:35)
[2024-07-20] MEDS: LEVOFLOXACIN IN DEXTROSE 5 % 750 MG/150 ML PREMIX 100 MG IV (16:24)
[2024-07-20 20:44] LABS: Glucometer 145 mg/dL (74-106)
[2024-07-20] MEDS: CETIRIZINE HCL 10 MG TABLET 20 MG PO (21:24)
[2024-07-20] MEDS: 0.9 % SODIUM CHLORIDE 500 ML IV (21:28)
--- NOTE | 2024-07-20 23:41 | ECG_ITS ---
[facility] Test Date: 2024-07-21 Pat Name: ROSANNA SOUSA Department: Room: 201-1 Gender: Male Compounder Flavorings: : 1940 Requested By: [id number] Order Number: [id number] Reading MD: JAC VAZQUEZ M.D. 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
[2024-07-21] VITALS (11 sets, daily range): BP systolic 92–130; BP diastolic 51–73; PULSE 51–76; TEMP 36.1–36.5; O2SAT 95–96; BMI 20.7
[2024-07-21 05:55] LABS: Basophils Percent Auto 0.2 % (0.2-2.0); Eosinophils Percent Auto 0.5 % (0.9-7.0); Hematocrit 33.8 % (42.0-54.0); Hemoglobin 11.2 g/dL (14.0-18.0); Immature Granulocytes Abs Auto 0.01 10^3/uL (0.00-0.03); Immature Granulocytes Pct Auto 0.2 % (0.0-0.5); Lymphocytes Absolute Auto 1.1 10^3/uL (1.2-3.8); Lymphocytes Percent Auto 27.3 % (20.5-60.0); Mean Corpuscular HGB Conc 33.1 g/dL (29.9-35.2); Mean Corpuscular Hemoglobin 31.5 pg (25.9-34.0); Mean Corpuscular Volume 94.9 fL (80.0-94.0); Mean Platelet Volume 10.2 fL (9.5-13.5); Monocytes Absolute Auto 0.3 10^3/uL (0.3-0.8); Monocytes Percent Auto 6.9 % (1.7-12.0); Neutrophils Absolute Auto 2.7 10^3/uL (1.4-6.5); Neutrophils Percent Auto 64.9 % (43.0-75.0); Platelet Count 124 10^3/uL (150-450); Red Blood Count 3.56 10^6/uL (4.70-6.10); Red Cell Distribution Width 17.3 % (11.0-15.0); White Blood Count 4.2 10^3/uL (4.0-11.0)
[2024-07-21 06:12] LABS: Alanine Aminotransferase 42 U/L (16-63); Albumin Globulin Ratio 0.4; Albumin Level 2.5 g/dL (3.4-5.0); Alkaline Phosphatase 108 U/L (46-116); Anion Gap 10.5; Aspartate Amino Transferase 44 U/L (15-37); BUN Creatinine Ratio 42.3; Bilirubin Total 0.5 mg/dL (0.2-1.0); Calcium 8.9 mg/dL (8.5-10.1); Carbon Dioxide 30.6 mmol/L (21.0-32.0); Chloride 103 mmol/L (98-107); Estimated GFR (African America >60 (>=60 mL/min/1.73m^2); Estimated GFR (Non-African Ame >60 (>=60 mL/min/1.73m^2); Globulin 5.7 g/dL; Glucose 88 mg/dL (74-106); Potassium 4.1 mmol/L (3.5-5.1); Sodium 140 mmol/L (136-145); Total Protein 8.2 g/dL (6.4-8.2)
[2024-07-21] MEDS: BUDESONIDE 0.5 MG/2 ML AMPULE NEB IH (09:43)
[2024-07-21] MEDS: DEXAMETHASONE SOD PHOS 4 MG/ML VIAL 6 MG IV (10:16)
[2024-07-21] MEDS: FAMOTIDINE 20 MG TABLET PO (10:17)
[2024-07-21] MEDS: MAGNESIUM OXIDE 400 MG TABLET PO (10:17)
[2024-07-21] MEDS: ASPIRIN 81 MG TAB.CHEW PO (10:17)
[2024-07-21] MEDS: SENNOSIDES 8.6 MG TABLET PO (10:17)
[2024-07-21] MEDS: TAMSULOSIN HCL 0.4 MG CAPSULE PO (10:17)
[2024-07-21] MEDS: OSELTAMIVIR PHOSPHATE 30 MG CAPSULE PO (10:17)
[2024-07-21] MEDS: ENSURE HP 237 ML LIQUID PO (10:18)
--- NOTE | 2024-07-21 11:13 | CM.NOTE ---
Rounds made with Dr. Alanis, pt will discharge to [facility] today for skilled therapy.
--- NOTE | 2024-07-21 11:24 | PM.DS1 ---
DS: Providers Provider Date of admission: 07/18/24 12:58 Primary care physician: Flex Isaacs DO Consults: 07/18/24 Consult to Dietitian Routine Reason for consultation: weight loss 07/18/24 15:08 Consult to Pharmacy Routine Consulting Provider: Reason for consultation: Please [place] me when Med Rec is Updated Has provider been notified: No Occupational Therapy Eval and Treat Routine Reason for consultation: Only if needed for Rehab Has provider been notified: No Physical Therapy Eval and Treat Routine Reason for consultation: Eval and Treat Has provider been notified: No 07/18/24 18:47 Consult to Furniture Sales Consultant Routine Has provider been notified: No Reason for consult:: Jail DS: Diagnosis Discharge Diagnosis (1) Influenza B: (2) COVID-19: (3) UTI (urinary tract infection): (4) Sepsis: (5) Dehydration: (6) Weakness generalized: (7) Moderate protein-calorie malnutrition: DS: Summary Hospital Course Hospital Course: Reason for admission: See ER note and H&P for details. 84 y/o male to ER with weakness. C/o increased weakness over past week. Decreased appetite and not drinking much. Developed cough and mild SOB. Difficulty ambulating and to ER. WBC normal. Positive for influenza B and covid. UA with possible UTI. Admitted for treatment. Hospital course: Started tamiflu and decadron. Started rocephin for UTI. Resumed home medication. Started PT/OT for weakness. Gradually improved in hospital. Remained afebrile and normal SpO2 on room air. Continued weakness and PT recommended SNF for strengthening. Appetite improved. Discharged to SNF in stable condition. Will take 3 additional days of tamiflu and prednisone x 5 days. Take cefdinir for UTI. Resume home medication as directed. Time Spent with Patient Time attestation: Total time spent providing and/or coordinating discharge services: Time spent: greater than 30 minutes Exam Constitutional Vital Signs, click to edit/add: Last Vital Signs Temp 97 F L 07/21/24 10:12 Pulse 55 L 07/21/24 10:12 Resp 16 07/21/24 10:12 BP 92/51 07/21/24 10:12 Pulse Ox 96 07/21/24 10:12 O2 Del Method Room Air 07/21/24 10:12 Documenting provider has reviewed patient's vital signs: yes Common normals: no apparent distress, oriented x3 and alert HENMT Common normals: normocephalic Eye Common normals: PERRL and EOMs intact bilaterally Respiratory Common normals: normal respiratory effort and clear to auscultation bilaterally Cardio Common normals: regular rate, regular rhythm, no gallops, no murmurs and no rub GI Common normals: Normal to inspection, nondistended, normoactive bowel sounds present and non-tender Extremity Common normals: no pedal edema DS: Data Data Completed and Pending Labs on day of discharge: Labs from last 24 hours 07/21/24 07/20/24 05:31 20:43 WBC 4.2 RBC 3.56 L Hgb 11.2 L Hct 33.8 L MCV 94.9 H MCH 31.5 MCHC 33.1 RDW 17.3 H Plt Count 124 L MPV 10.2 Neut % (Auto) 64.9 Lymph % (Auto) 27.3 [place] % (Auto) 6.9 Eos % (Auto) 0.5 L Baso % (Auto) 0.2 Neut # (Auto) 2.7 Lymph # (Auto) 1.1 L [place] # (Auto) 0.3 Eos # (Auto) 0.0 Baso # (Auto) 0.0 Abs Immat Gran (auto) 0.01 Imm/Tot Granulo (auto) 0.2 Sodium 140 Potassium 4.1 Chloride 103 Carbon Dioxide 30.6 Anion Gap 10.5 BUN 33.0 H Creatinine 0.78 Est GFR ( Amer) >60 Est GFR (Non-Af Amer) >60 BUN/Creatinine Ratio 42.3 Glucose 88 Calcium 8.9 Total Bilirubin 0.5 AST 44 H ALT 42 Alkaline Phosphatase 108 Total Protein 8.2 Albumin 2.5 L Globulin 5.7 Albumin/Globulin Ratio 0.4 POC Glucose 145 H Preliminary micro results at discharge 07/18/24 15:42 Blood Culture Result 2 - Preliminary Blood NO GROWTH AT 36-48 HOURS. FINAL TO FOLLOW. 07/18/24 15:35 Blood Culture Result 1 - Preliminary Blood NO GROWTH AT 36-48 HOURS. FINAL TO FOLLOW. Discharge Plan Discharge Disposition: Xfer [facility] Discharge Medications: New oseltamivir 30 mg Capsule 30 mg PO BID 2 Days Qty: 4 0RF prednisone 50 mg tablet 50 mg PO DAILY 5 Days Qty: 5 0RF cefdinir 300 mg capsule 300 mg PO BID 5 Days Qty: 10 0RF Continued acetaminophen 325 mg Tablet 650 mg PO Q6H PRN (Reason: Moderate pain) Qty: 90 0RF tamsulosin 0.4 mg capsule 0.4 mg PO Q24H aspirin 81 mg capsule 81 mg PO DAILY sennosides [senna] 8.6 mg tablet 8.6 mg PO DAILY Print Language: Georgian Forms: Portal Instructions
--- NOTE | 2024-07-21 11:52 | CM.NOTE ---
Called [facility] for transport, unable to take pt d/t covid positive and influenza positive. Spoke with pt's son Jr and he will transport his father to the [facility] around 12:45. Packet taken to [facility] and updated RN on [facility]. Called Tatianna at [facility] for update and transfer time. Faxed discharge med list, discharge summary and CRF to [facility].
--- NOTE | 2024-07-21 12:04 | OT.DAILY ---
Occupational Therapy Daily Note OT Inpatient Daily Visit Note Start: 07/20/24 10:56 Freq: Status: Active Protocol: Document 07/21/24 11:52 [id number] (Rec: 07/21/24 12:04 [id number]) OT Visit Details Time In/Time Out Time In 11:28 Time Out 11:38 OT Treatment Plan Subjective Subjective Pt awake and alert, sitting up in bed. Pt agreeable to transfer to chair and participate in self care tasks. Objective Objective With set up of supplies Pt demonstrates good mobility to EOB with tactile cues to participate in self-care tasks. Good standing tolerance while changing brief, Max A doffing LB garments. Seated in chair Pt able to wash full face with Min A, and posterior scalp with Mod A. To wash bilateral axillary area Pt requires Min A with crossing midline to maintain accuracy, 2-4 tactile cues. Good application of anti-perspirant. FRUIT HARVESTER MACHINE OPERATOR present during room to assist with bed mobility and balance while ambulating to chair. Assessment Assessment Pt tolerated treatment well. Agreeable and cooperative with all tasks. Talkative with a normal thought process . Continue OT POC. OT Assistant Property Manager Timed Codes Self-Intermediate 10 Management minutes ( minutes) Self-Intermediate 1 Management units
--- NOTE | 2024-07-21 12:29 | PT.DAILY ---
Physical Therapy Daily Note PT Daily Note/Assess Start: 07/21/24 12:19 Freq: Status: Active Protocol: Document 07/21/24 11:30 [email or web address] (Rec: 07/21/24 12:29 [id number] [id number]) Physical Therapy Daily Note/Assessment Time In/Time Out Time In 11:28 Time Out 11:51 Subjective Subjective Patient reports feeling good today and expresses no concerns or complaints. Therapeutic Exercise Time Therapeutic Exercise 13 Minutes (minutes) Therapeutic Exercise 1 Units Therapeutic Exercise Treatment Therapeutic Exercise Seated Exercises: Treatment Marches x 10 LAQ x 10 HR/TR x 10 Hip abd x 10 Adduction squeezes x 10 Therapeutic Activity Time Therapeutic Activity 10 Minutes (minutes) Therapeutic Activity 0 Units Therapeutic Activity Treatment Bed Mobility Ability Maximum Assist Chair Transfer Moderate Assist Ability Therapeutic Activity Patient transferred from bed to chair with RW MAX A x2 Comments for safety. Patient demonstrates forward trunk lean and forward head during transfer. Cues given to stand tall and look up. Total Physical Therapy Time Total Therapy 23 Minutes Total Physical 1 Therapy Units Summary Daily Note Summary Patient is able to completed transfer from bed to chair with MAX A x 2 for safety due to patient demonstrating severe forward trunk lean. Cues required for correct hand placement when sitting. Patient tolerated treatment well with no complaints of increased discomfort throughout. Patient in chair with call light in reach and all needs met post treatment. Recommend SNF at [facility] to increase B LE strength.
--- NOTE | 2024-07-21 13:42 | PC.NURSE ---
report given to phil at the [facility]. all questions answered
== END 2024-07-21 13:59 | DRG 871 ==
LOC: ER 12:08 → MS 13:00
PROVIDERS: Admitting Provider Family Medicine; Emergency Provider Emergency Medicine; PCP Internal Medicine; Visit Provider Family Medicine
DX: A41.89 Other specified sepsis (principal); J12.89 Other viral pneumonia; U07.1 COVID-19; N39.0 Urinary tract infection, site not specified; E44.0 Moderate protein-calorie malnutrition; J10.1 Influenza due to other identified influenza virus with other respiratory manifestations; E86.0 Dehydration; D69.6 Thrombocytopenia, unspecified; N40.0 Benign prostatic hyperplasia without lower urinary tract symptoms; R94.6 Abnormal results of thyroid function studies; Z96.642 Presence of left artificial hip joint; Z96.659 Presence of unspecified artificial knee joint; Z87.891 Personal history of nicotine dependence; Z79.899 Other long term (current) drug therapy; Z79.82 Long term (current) use of aspirin; Z86.718 Personal history of other venous thrombosis and embolism; D50.9 Iron deficiency anemia, unspecified; E83.42 Hypomagnesemia; Z68.20 Body mass index [BMI] 20.0-20.9, adult
CPT/HCPCS: 36415; 71045; 80053; 81001; 83605; 83735; 83880; 84100; 84439; 84443; 84481; 84484; 85025; 87040; 87086; 87804; 87811; 93005; 93242; 94640; 94667; 94668; 94761; 96361; 96365; 97110; 97161; 97165; 97530; 97535; 99285; J0696; J1100; J3475